=== PATIENT | female | born 1970 | race Caucasian/White ===

== ENCOUNTER 2016-04-10 13:42 | Inpatient (IN) | payer OTHER ==
--- NOTE | 2016-04-10 14:44 | ED ---
SOB HPI - General Chief Complaint: Shortness of Breath Stated Complaint: OLY sent by [facility] Time Seen by Provider: 04/10/16 14:14 Source: patient, RN notes reviewed Mode of arrival: ambulatory Limitations: no limitations - History of Present Illness Initial Comments: 45-year-old female presents emergency Department chief complaint shortness of breath. Patient states that she was just discharged less than 10 days ago for pneumonia, shortness breath, pulmonary edema. Patient states that she has been having visiting nurses come out to evaluate her vitals. They did state that she was not oxygenating as well today and sent to the emergency department. Patient did call her qa software tester Dr. connie franco and office to advise her also to the emergency room. Patient has chronic lung conditions in which she has been ventilated multiple times. Patient states she does feel tight in her chest. Patient denies any diaphoretic episodes, chills, nausea or vomiting. She states that she's been having a low-grade temp at home in which she's been taking acetaminophen for. Patient states she has taken her medications as prescribed including her diuretic. - Related Data Home Medications Medication Instructions Recorded Confirmed Cetirizine HCl [Zyrtec] 10 mg PO DAILY PRN 07/16/14 04/10/16 Ergocalciferol [Vitamin D2 50,000 units PO TH 07/16/14 04/10/16 (DRISDOL)] Omeprazole [PriLOSEC] 20 mg PO AC-BID 07/16/14 04/10/16 Budesonide-Formot 160-4.5 Mcg 2 puff INHALATION RT-BID 08/23/15 04/10/16 [Symbicort 160-4.5 Mcg Inhaler] Enoxaparin [Lovenox] 100 mg SQ DAILY 02/20/16 04/10/16 lamoTRIgine [LaMICtal] 200 mg PO DAILY 03/22/16 04/10/16 Furosemide [Lasix] 20 mg PO DAILY 03/30/16 04/10/16 Nystatin 100,000 Unit/ml Susp 400,000 units PO QID 04/10/16 04/10/16 [Mycostatin Oral Susp] Potassium Chloride [Klor-Con 20] 20 meq PO DAILY 04/10/16 04/10/16 Pregabalin [Lyrica] 150 mg PO TID 04/10/16 04/10/16 predniSONE See Taper PO DAILY 04/10/16 04/10/16 Previous Rx's Medication Instructions Recorded Albuterol Inhaler [Ventolin Hfa 2 puff INHALATION RT-Q6H PRN #1 08/20/15 Inhaler] puff FLUoxetine HCL [PROzac] 20 mg PO DAILY #30 capsule 08/20/15 Ipratropium-Albuterol Nebulize 3 ml INHALATION RT-Q4H PRN #180 neb 08/20/15 [Duoneb 0.5 mg-3 mg/3 ml Soln] Methocarbamol [Robaxin] 750 mg PO QID PRN #40 tab 08/20/15 Metoprolol Tartrate [Lopressor] 50 mg PO BID #60 tab 08/20/15 Mirtazapine [Remeron] 30 mg PO HS #30 tablet 08/20/15 Montelukast [Singulair] 10 mg PO HS #30 tab 08/20/15 Simvastatin [Zocor] 10 mg PO HS #30 tab 08/20/15 Warfarin [Coumadin] 2.5 mg PO DAILY@1800 #30 tab 08/20/15 Warfarin [Coumadin] 10 mg PO DAILY@1800 #30 tab 08/20/15 ALPRAZolam [Xanax] 0.5 mg PO QID PRN #10 tab 02/11/16 guaiFENesin/CODEINE PHOSPHATE 5 ml PO Q6HR PRN #80 ml 02/17/16 HYDROcodone/APAP 10-325MG [[place] 1 tab PO Q4HR PRN #30 tab 03/30/16 10-325] Allergies Allergy/AdvReac Type Severity Reaction Status Date / Time ketorolac tromethamine Allergy Severe Anaphylaxis Verified 04/10/16 13:47 [From Toradol] Opioids - Morphine Analogues Allergy Mild Itching Verified 04/10/16 13:47 rivaroxaban [From Xarelto] Allergy Rash/Hives Verified 04/10/16 13:47 sumatriptan [From Imitrex] Allergy Anaphylaxis Verified 04/10/16 13:47 sumatriptan succinate Allergy Anaphylaxis Verified 04/10/16 13:47 [From Imitrex] morphine AdvReac Severe Itching Verified 04/10/16 13:47 iodine AdvReac Intermediate Itching Verified 04/10/16 13:47 vancomycin AdvReac Itching Verified 04/10/16 13:47 Rich wipes AdvReac Severe Rash/Hives Uncoded 04/10/16 13:47 Review of Systems ROS Statement: Those systems with pertinent positive or pertinent negative responses have been documented in the HPI. ROS Other: All systems not noted in ROS Statement are negative. Past Medical History Past Medical History: Blood Disorder, Heart Failure, Deep Vein Thrombosis (DVT) , Hyperlipidemia, Hypertension, Myocardial Infarction ([place]), Musculoskeletal Disorder, Pulmonary Embolus (PE) Additional Past Medical History / Comment(s): Sarcoidosis diagnosed in 2015 following a bronchoscopy and lung biopsy done at [facility] and she was started on predniosone and she took the therapy for almost 1 year, polycythemia, overweight , bilateral PE (2011, 2015), bilateral DVTs, fibromyalgia, bipolar disorder, degenerative disk disorder, coronary artery disease along with previous history of a [place] and ventilator dependent respiratory failure with MRSA pneumonia for which the patient was hospitalized [facility] in 2012. Viral meningitis in October 2014. Last Myocardial Infarction Date:: February 15, 2013 History of Any Multi-Drug Resistant Organisms: MRSA Date of last positivie culture/infection: 2013 MDRO Source:: Lungs Past Surgical History: Section, Cholecystectomy, Heart Catheterization , Hernia Repair, Orthopedic Surgery Additional Past Surgical History / Comment(s): Lt ankle surgery Past Anesthesia/Blood Transfusion Reactions: No Reported Reaction Past Psychological History: Anxiety, Bipolar, Depression Additional Psychological History / Comment(s): pt. states she is on medication for depression Smoking Status: Current every day smoker Past Alcohol Use History: None Reported Additional Past Alcohol Use History / Comment(s): pt. states she smokes 1/2 a pack a day. Past Drug Use History: None Reported - Past Family History Father Family Medical History: Blood Disorder, Deep Vein Thrombosis (DVT) Additional Family Medical History / Comment(s): polycythemia Mother Family Medical History: Musculoskeletal Disorder Sister(s) Family Medical History: No Reported History Brother(s) Family Medical History: No Reported History Son(s) Family Medical History: No Reported History Daughter(s) Family Medical History: No Reported History General Exam Limitations: no limitations General appearance: alert, in no apparent distress Head exam: Present: atraumatic, normocephalic, normal inspection Eye exam: Present: normal appearance, PERRL, EOMI. Absent: scleral icterus, conjunctival injection, periorbital swelling Neck exam: Present: normal inspection. Absent: tenderness, meningismus, lymphadenopathy Respiratory exam: Present: wheezes (Mild). Absent: respiratory distress, rales , rhonchi, stridor Cardiovascular Exam: Present: normal rhythm, tachycardia, normal heart sounds. Absent: systolic murmur, diastolic murmur, rubs, gallop, clicks Skin exam: Present: warm, dry, intact, normal color. Absent: rash Course Vital Signs 04/10/16 04/10/16 13:44 16:37 Temperature 97.8 F Pulse Rate 108 H 108 H Respiratory 20 Rate Blood Pressure 123/87 Medical Decision Making - Medical Decision Making 45-year-old female presented for shortness breath. Patient has right lobe pneumonia. Patient was recently hospitalized. Patient recovered with multiple antibiotics this time. We did contact radiology for PICC line though they said they can be placed in the morning. - Lab Data Result diagrams: 04/10/16 16:02 04/10/16 03:34 Lab Results 04/10/16 04/10/16 04/10/16 Range/Units 03:34 16:02 16:02 WBC 15.2 H (3.8-10.6) k/uL RBC 5.21 (3.80-5.40) m/uL Hgb 15.8 (11.4-16.0) gm/dL Hct 48.3 H (34.0-46.0) % MCV 92.7 (80.0-100.0) fL MCH 30.3 (25.0-35.0) pg MCHC 32.6 (31.0-37.0) g/dL RDW 13.8 (11.5-15.5) % Plt Count 239 (150-450) k/uL Neutrophils % 84 % Lymphocytes % 10 % Monocytes % 5 % Eosinophils % 0 % Basophils % 0 % Neutrophils # 12.7 H (1.3-7.7) k/uL Lymphocytes # 1.5 (1.0-4.8) k/uL Monocytes # 0.7 (0-1.0) k/uL Eosinophils # 0.1 (0-0.7) k/uL Basophils # 0.1 (0-0.2) k/uL PT 11.5 (9.0-12.0) sec INR 1.2 (<1.1) APTT 24.2 (22.0-30.0) sec Sodium 143 (137-145) mmol/L Potassium 3.8 (3.5-5.1) mmol/L Chloride 108 H (98-107) mmol/L Carbon Dioxide 22 (22-30) mmol/L Anion Gap 13 mmol/L BUN 6 L (7-17) mg/dL Creatinine 0.58 (0.52-1.04) mg/dL Est GFR (MDRD) Af Amer >60 (>60 ml/min/1.73 sqM) Est GFR (MDRD) Non-Af >60 (>60 ml/min/1.73 sqM) Glucose 89 (74-99) mg/dL Calcium 8.8 (8.4-10.2) mg/dL Magnesium 1.7 (1.6-2.3) mg/dL Total Bilirubin 0.8 (0.2-1.3) mg/dL AST 33 (14-36) U/L ALT 49 (9-52) U/L Alkaline Phosphatase 82 (38-126) U/L Total Protein 7.3 (6.3-8.2) g/dL Albumin 4.1 (3.5-5.0) g/dL 04/10/16 16:47 EKG performed at 15:30 sinus tachycardia with a rate of 107 DE interval 134, QRS duration 58, QT/QTC 318/424 Disposition Clinical Impression: Sarcoidosis Disposition: ADMITTED IP TO THIS HOSP Condition: Stable
--- NOTE | 2016-04-10 15:20 | XR ---
EXAMINATION TYPE: XR chest 2V DATE OF EXAM: 04/10/2016 3:16 PM COMPARISON: 03/29/2016 HISTORY: difficulty breathing TECHNIQUE: Frontal and lateral views of the chest are obtained. FINDINGS: Patchy perihilar infiltrate right lower lobe. Correlate for pneumonia. Left lung is clear. IMPRESSION: Right lower lobe pneumonia. Follow-up until resolution recommended.
[2016-04-10] MEDS ORDERED: LEVOFLOXACIN 750MG-D5W PMX 750 MG in DEXTROSE/WATER 1 150ML.BAG IVPB STA (16:07)
[2016-04-10] MEDS ORDERED: PIPERACILLIN-TAZOBACTAM 3.375 GM in DEXTROSE/WATER 1 50ML.BAG IVPB STA (16:07)
[2016-04-10] MEDS ORDERED: LORazepam 1 MG TAB PO STA (16:23)
[2016-04-10] MEDS ORDERED: IPRATROPIUM-ALBUTEROL 3 ML NEB INHALATION STA (16:23)
[2016-04-10] MEDS ORDERED: HYDROcodone/APAP 5-325MG 1 EACH TAB PO STA (16:23)
[2016-04-10 16:28] LABS: Basophils # (A) 0.1 k/uL (0-0.2); Basophils % (A) 0 %; CH 31.5; CHCM 34.2; Eosinophils # (A) 0.1 k/uL (0-0.7); Eosinophils % (A) 0 %; HCT 48.3 % (34.0-46.0); HDW 2.93; HGB 15.8 gm/dL (11.4-16.0); Luc # (Auto) 0.15; Luc % (Auto) 1; Lymphocytes # (A) 1.5 k/uL (1.0-4.8); Lymphocytes % (A) 10 %; MCH 30.3 pg (25.0-35.0); MCHC 32.6 g/dL (31.0-37.0); MCV 92.7 fL (80.0-100.0); Mean Platelet Volume 8.1; Monocytes # (A) 0.7 k/uL (0-1.0); Monocytes % (A) 5 %; Neutrophils # (A) 12.7 k/uL (1.3-7.7); Neutrophils % (A) 84 %; RBC 5.21 m/uL (3.80-5.40); RDW 13.8 % (11.5-15.5); WBC 15.2 k/uL (3.8-10.6); WBC (Perox) 14.55
[2016-04-10 16:38] LABS: ALT 49 U/L (9-52); AST 33 U/L (14-36); Alkaline Phosphatase 82 U/L (38-126); Anion Gap 13 mmol/L; Blood Urea Nitrogen 6 mg/dL (7-17); Calcium 8.8 mg/dL (8.4-10.2); Carbon Dioxide 22 mmol/L (22-30); Chloride 108 mmol/L (98-107); Glucose 89 mg/dL (74-99); Magnesium 1.7 mg/dL (1.6-2.3); Non-African American GFR(MDRD) >60 (>60 ml/min/1.73 sqM); Potassium 3.8 mmol/L (3.5-5.1); Sodium 143 mmol/L (137-145); Total Bilirubin 0.8 mg/dL (0.2-1.3); Total Protein 7.3 g/dL (6.3-8.2)
[2016-04-10 16:39] LABS: Creatine Kinase 79 U/L (30-135)
[2016-04-10 16:41] LABS: INR 1.2 (<1.1); Partial Thromboplastin Time 24.2 sec (22.0-30.0); Prothrombin Time 11.5 sec (9.0-12.0)
[2016-04-10 16:49] LABS: Creatine Kinase MB 0.6 ng/mL (0.0-2.4)
[2016-04-10] MEDS ORDERED: NALOXONE 0.4 MG/ML 1 ML VIAL IV PRN (16:52)
[2016-04-10] MEDS ORDERED: ONDANSETRON 4 MG/2 ML VIAL IVP PRN (16:52)
[2016-04-10 17:16] LABS: Troponin I <0.012 ng/mL (0.000-0.034)
[2016-04-10] MEDS ORDERED: guaiFENesin SYRUP 100MG/5ML 200 MG/10 ML CUP PO STA (17:41)
[2016-04-10] MEDS: HYDROcodone/APAP 5-325MG 1 EACH TAB PO PRN (20:28)
[2016-04-10] MEDS ORDERED: LORATADINE 10 MG TAB PO PRN (21:03)
[2016-04-10] MEDS: ATORVASTATIN 10 MG TAB PO SCH (22:23)
[2016-04-10] MEDS: MONTELUKAST 10 MG TAB PO SCH (22:23)
[2016-04-10] MEDS: METOPROLOL TARTRATE 50 MG TAB PO SCH (22:23)
[2016-04-10] MEDS: MIRTAZAPINE 15 MG TAB PO SCH (22:23)
[2016-04-10] MEDS: METHOCARBAMOL 750 MG TAB PO PRN (22:24)
[2016-04-10] MEDS: PANTOPRAZOLE 40 MG TABLET PO SCH (22:24)
[2016-04-10] MEDS: PREGABALIN 75 MG CAP PO SCH (22:24)
[2016-04-10] MEDS: IPRATROPIUM-ALBUTEROL 3 ML NEB INHALATION PRN (23:13)
[2016-04-11] MEDS: PIPERACILLIN-TAZOBACTAM 3.375 GM in DEXTROSE/WATER 1 50ML.BAG IVPB SCH ×4 (00:27→23:34)
[2016-04-11] MEDS: ALPRAZolam 0.5 MG TAB PO PRN ×4 (02:35→21:11)
[2016-04-11] MEDS: HYDROcodone/APAP 5-325MG 1 EACH TAB PO PRN ×6 (02:35→23:33)
[2016-04-11] MEDS: guaiFENesin-Coden 100-10MG/5ML 10 ML CUP PO PRN ×3 (03:14→18:42)
[2016-04-11] MEDS: PANTOPRAZOLE 40 MG TABLET PO SCH ×2 (09:00→17:41)
[2016-04-11] MEDS: PREGABALIN 75 MG CAP PO SCH ×3 (09:00→21:10)
[2016-04-11] MEDS: FUROSEMIDE 20 MG TAB PO SCH (09:01)
[2016-04-11] MEDS: FLUoxetine HCL 20 MG CAP PO SCH (09:01)
[2016-04-11] MEDS: POTASSIUM CHLORIDE ER 20 MEQ TAB.ER PO SCH (09:01)
[2016-04-11] MEDS: METOPROLOL TARTRATE 50 MG TAB PO SCH ×2 (09:01→21:11)
[2016-04-11] MEDS: lamoTRIgine 100 MG TAB PO SCH (09:01)
[2016-04-11] MEDS: IPRATROPIUM-ALBUTEROL 3 ML NEB INHALATION PRN ×4 (09:21→20:09)
[2016-04-11] MEDS: SYMBICORT 160-4.5 MCG INHALER INHALATION SCH ×2 (09:21→20:09)
--- NOTE | 2016-04-11 10:35 | P.CNPUL ---
History of Present Illness Consult date: 04/11/16 Reason for consult: dyspnea History of present illness: 45-year-old female presents emergency Department chief complaint shortness of breath. Patient states that she was just discharged less than 10 days ago for pneumonia, shortness breath, diffuse bilateral pulmonary infiltrates, acute hypoxic respiratory failure for which the patient underwent a bronchoscopy and the bronchioloalveolar lavage and all of the cultures came back negative. Ultimately the patient was treated with a combination of bronchodilators steroids and antibiotics and she improved and she was discharged home. Patient states that she has been having visiting nurses come out to evaluate her vitals. They did state that she was not oxygenating as well today and sent to the emergency department. Patient has chronic lung conditions in which she has been ventilated multiple times. Patient states she does feel tight in her chest. Patient denies any diaphoretic episodes, chills, nausea or vomiting. She states that she's been having a low-grade temp at home in which she's been taking acetaminophen. This patient has a complicated history of recurrent episodes of acute hypoxic respiratory failure and development of diffuse breath and pulmonary infiltrates. Knowing that during an earlier hospitalization of 03/22/2016 the patient developed diffuse groundglass bilateral pulmonary infiltrates on the CAT scan and her chest x-ray was showing diffuse reticular nodular pulmonary infiltration that looked to be typical of an acute lung injury/ARDS pattern. During the course of her treatment the patient went into acute hypoxic respiratory failure and one point she went on 100% nonrebreather facemask and she was very close to being intubated. During the same hospitalization the patient had a bronchoscopy and all of the microbial cultures came back negative. This is not a single event and the patient has had similar events in the past and she has been intubated at least on 3 different occasions. The overall clinical history remains not clear to me. The patient has been to various hospitals including [facility]. At one point she was diagnosed having sarcoidosis and the diagnosis established at [facility] based on the bronchoscopy and transbronchial biopsy and the patient was treated with systemic steroids for almost a year. She subsequently quit taking the steroids as she gained significant amount of weight. At this point in time, she does not have any extra pulmonary manifestations of sarcoidosis. No liver function abnormalities. No hypercalcemia. No nephrolithiasis. No skin changes. In addition, the most recent CAT scan of the chest shows only small mediastinal lymphadenopathy. However, the patient has responded nicely to systemic steroids. In fact she responded to IV Solu- Medrol and she was discharged home on a prednisone burst taper and her symptoms recurred once the prednisone was tapered down to 20 mg by mouth daily. Her most recent chest x-ray shows infiltration of the lungs bilaterally right more than left and this is obviously new findings compared to the previous x-ray of the one done on 03/29/2016. She is smoking. No ongoing exposure to respiratory irritants or any other pneumo toxic agents. Her ANAs negative. Her rheumatoid factor is negative. Anti-CCP antibodies are negative. Serum immunoglobulin levels are within normal with some modest elevation of the baseline IgE level in the 270 range. Based on hypersensitivity panel was done and the patient was found to have some exposure to molds. This does not establish a true diagnosis of hypersensitivity pneumonia and these are nonspecific findings. Review of Systems Full review of system was done and the positive findings are almost above in history of present illness Past Medical History Past Medical History: Blood Disorder, Heart Failure, Deep Vein Thrombosis (DVT) , Hyperlipidemia, Hypertension, Myocardial Infarction ([place]), Musculoskeletal Disorder, Pulmonary Embolus ([place]) Additional Past Medical History / Comment(s): Sarcoidosis diagnosed in 2015 following a bronchoscopy and lung biopsy done at [facility] and she was started on predniosone and she took the therapy for almost 1 year, polycythemia, overweight , bilateral PE (2011, 2015), bilateral DVTs, fibromyalgia, bipolar disorder, degenerative disk disorder, coronary artery disease along with previous history of a [place] and ventilator dependent respiratory failure with MRSA pneumonia for which the patient was hospitalized [facility] in 2012. Viral meningitis in October 2014. Last Myocardial Infarction Date:: February 15, 2013 History of Any Multi-Drug Resistant Organisms: MRSA Date of last positivie culture/infection: 2013 MDRO Source:: Lungs Past Surgical History: Section, Cholecystectomy, Heart Catheterization , Hernia Repair, Orthopedic Surgery Additional Past Surgical History / Comment(s): Lt ankle surgery,BRONCH Past Anesthesia/Blood Transfusion Reactions: No Reported Reaction Past Psychological History: Anxiety, Bipolar, Depression Additional Psychological History / Comment(s): pt. states she is on medication for depression and feels well maintained. Smoking Status: Former smoker Past Alcohol Use History: None Reported Additional Past Alcohol Use History / Comment(s): pt states started smoking in 1988 and quit 04-02-16 had been smoking 1/2 ppd Past Drug Use History: None Reported - Past Family History Father Family Medical History: Blood Disorder, Deep Vein Thrombosis (DVT) Additional Family Medical History / Comment(s): polycythemia Mother Family Medical History: Musculoskeletal Disorder Sister(s) Family Medical History: No Reported History Brother(s) Family Medical History: No Reported History Son(s) Family Medical History: No Reported History Daughter(s) Family Medical History: No Reported History Medications and Allergies Home Medications Medication Instructions Recorded Confirmed Type Cetirizine HCl [Zyrtec] 10 mg PO DAILY PRN 07/16/14 04/10/16 History Ergocalciferol [Vitamin D2 50,000 units PO TH 07/16/14 04/10/16 History (DRISDOL)] Omeprazole [PriLOSEC] 20 mg PO AC-BID 07/16/14 04/10/16 History Budesonide-Formot 160-4.5 Mcg 2 puff INHALATION RT-BID 08/23/15 04/10/16 History [Symbicort 160-4.5 Mcg Inhaler] Enoxaparin [Lovenox] 100 mg SQ DAILY 02/20/16 04/10/16 History lamoTRIgine [LaMICtal] 200 mg PO DAILY 03/22/16 04/10/16 History Furosemide [Lasix] 20 mg PO DAILY 03/30/16 04/10/16 History Nystatin 100,000 Unit/ml Susp 400,000 units PO QID 04/10/16 04/10/16 History [Mycostatin Oral Susp] Potassium Chloride [Klor-Con 20] 20 meq PO DAILY 04/10/16 04/10/16 History Pregabalin [Lyrica] 150 mg PO TID 04/10/16 04/10/16 History predniSONE See Taper PO DAILY 04/10/16 04/10/16 History Allergies Allergy/AdvReac Type Severity Reaction Status Date / Time ketorolac tromethamine Allergy Severe Anaphylaxis Verified 04/10/16 13:47 [From Toradol] Opioids - Morphine Analogues Allergy Mild Itching Verified 04/10/16 13:47 rivaroxaban [From Xarelto] Allergy Rash/Hives Verified 04/10/16 13:47 sumatriptan [From Imitrex] Allergy Anaphylaxis Verified 04/10/16 13:47 sumatriptan succinate Allergy Anaphylaxis Verified 04/10/16 13:47 [From Imitrex] morphine AdvReac Severe Itching Verified 04/10/16 13:47 iodine AdvReac Intermediate Itching Verified 04/10/16 13:47 vancomycin AdvReac Itching Verified 04/10/16 13:47 Rich wipes AdvReac Severe Rash/Hives Uncoded 04/10/16 13:47 Physical Exam Vitals: Vital Signs Temp Pulse Pulse Resp BP BP Pulse Ox 04/11/16 09:38 100 04/11/16 09:22 96 04/11/16 08:00 20 04/11/16 07:00 97.4 F L 87 20 112/68 94 L 04/10/16 23:20 84 04/10/16 23:15 84 04/10/16 23:00 98.3 F 96 18 126/85 95 04/10/16 19:39 99.2 F 108 H 20 106/68 93 L 04/10/16 19:06 98 F 99 20 112/71 93 L Intake and Output 04/10/16 04/11/16 04/11/16 22:59 06:59 14:59 Intake Total 500 750 Balance 500 750 Intake: Oral 500 750 Other: # Voids 1 1 Weight 90.5 kg 90.5 kg Head exam was generally normal. There was no scleral icterus or corneal arcus. Mucous membranes were moist.Neck was supple and without jugular venous distension, thyromegaly, or carotid bruits. Carotids were easily palpable bilaterally. There was no adenopathy. Lung sounds are diminished bilaterally along with some scattered rhonchi and scattered expiratory wheezes.Cardiac exam revealed the PMI to be normally situated and sized. The rhythm was regular and no extrasystoles were noted during several minutes of auscultation. The first and second heart sounds were normal and physiologic splitting of the second heart sound was noted. There were no murmurs, rubs, clicks, or gallops.Abdominal exam revealed normal bowel sounds. The abdomen was soft, non- tender, and without masses, organomegaly, or appreciable enlargement of the abdominal aorta.Examination of the extremities revealed easily palpable radial, femoral and pedal pulses. There was no cyanosis, clubbing or edema. Results - Laboratory Findings CBC and BMP: 04/10/16 16:02 04/10/16 03:34 PT/INR, D-dimer PT 11.5 sec (9.0-12.0) 04/10/16 16:02 INR 1.2 (<1.1) 04/10/16 16:02 - Diagnostic Findings Chest x-ray: image reviewed Assessment and Plan Plan: Assessment 1 acute hypoxic respiratory failure with recurrent pulmonary infiltrate pulmonary infiltration, right more than left. The exact nature of this recurrent pulmonary infiltration is not clear to me. The patient during an earlier hospitalization had a bronchoscopy and the bronchioloalveolar lavage and essentially the microbial analysis was negative for any bacterial, viral, mycobacterial or parasitic infection. As such, I suspect her disease is recurrent and inflammatory in nature and the possibilities would include recurrent acute lung injury/ARDS-type of picture, sarcoidosis, the desquamous interstitial pneumonia secondary to smoking, hypersensitivity pneumonia. 2 previous history of DVT and pulmonary embolism 3 obesity 4 smoking 5 secondary polycythemia 6 history of viral meningitis from October 2014 7 bipolar disorder 8 degenerative disc disease 9 coronary artery disease with previous myocardial infarction \ 10 multiple bouts of acute hypoxic history failure with ventilator dependence 11 previous history of MRSA pneumonia Plan We'll subject this patient again to IV Solu-Medrol. I am inclined to give this patient an open lung biopsy to establish the final diagnosis. I'm going to discuss it with the thoracic surgeon and she'll be considered for a video- assisted thoracoscopic wedge biopsy of the lung to establish a final diagnosis regarding this recurrent bouts of respiratory failure. I think she is agreeable. We'll proceed accordingly. As mentioned earlier, all of the microbial cultures of been negative from previous bronchoscopy. This is not an infectious event. Rule out other inflammatory lung diseases as mentioned above. Mean While, repeat robert level, sed rate, obtain baseline P and C ANCA levels.
[2016-04-11 10:48] VITALS: BMI 32.2
[2016-04-11] MEDS: HEPARIN SODIUM,PORCINE 5,000 UNIT/ML 1 ML VIAL SQ SCH ×3 (10:59→23:34)
--- NOTE | 2016-04-11 12:32 | HP ---
DATE OF ADMISSION: CHIEF COMPLAINT: Cough, fever, congestion, shortness of breath. HISTORY OF PRESENT ILLNESS: This is another many admissions for this 45-year-old white female. She is not a regular patient of mine. She was just in the hospital recently for pneumonia. She doctors with a physician elsewhere. She depends highly on large quantities of analgesics. She came in again because of "shortness of breath, cough, and fever" REVIEW OF SYSTEMS: She denies any neurologic problems, change in vision or hearing, hemoptysis, heart disease, orthopnea, PND, abdominal pain, hematemesis, melena, hematochezia, jaundice, hematuria, frequency, urgency, diabetes, etc. Past medical history, family history and personal and social histories are all unchanged. I have not seen her since December of 2014. She is uncooperative and does not readily give any further historical details and is requesting a different physician. PHYSICAL EXAM: Blood pressure is 116/80 with a pulse of 86, respirations of 38 and she is afebrile. GENERAL: She appeared to be in no acute distress. Skin color is normal. Skin is warm, dry. Lymph nodes are not enlarged. Head, ears, eyes, nose, mouth, and throat were normal. Neck veins are not distended. Thyroid was not enlarged. Chest demonstrates decreased breath sounds throughout with occasional rales and rhonchi. Cardiac exam is normal. ABDOMEN: Soft, nontender. EXTREMITIES: Normal. IMPRESSION: 1. Bronchopneumonia. 2. History of sarcoidosis. PLAN: 1. Bed rest. 2. IV fluids. 3. Updrafts. 4. Pulmonology consult.
--- NOTE | 2016-04-11 12:34 | PN ---
CHIEF COMPLAINT: Pneumonitis. HISTORY OF PRESENT ILLNESS: This lady is doing a little bit better and feels better and is less short of breath. She has had no fever. PHYSICAL EXAM: Breath sounds are fairly good on both side. There are occasional rales at the right base. Cardiac exam is normal. ABDOMEN: Soft, nontender. IMPRESSION: 1. Pneumonitis. 2. Chronic obstructive pulmonary disease. 3. 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 PLAN: 1. Await recommendations from Pulmonology. 2. She wants to change to a different physician.
[2016-04-11] MEDS: METHOCARBAMOL 750 MG TAB PO PRN (20:03)
[2016-04-11] MEDS: MONTELUKAST 10 MG TAB PO SCH (21:10)
[2016-04-11] MEDS: ATORVASTATIN 10 MG TAB PO SCH (21:10)
[2016-04-11] MEDS: MIRTAZAPINE 15 MG TAB PO SCH (21:11)
[2016-04-12] MEDS: HYDROcodone/APAP 5-325MG 1 EACH TAB PO PRN ×5 (03:25→20:05)
[2016-04-12] MEDS: ALPRAZolam 0.5 MG TAB PO PRN ×3 (08:07→20:05)
[2016-04-12] MEDS: guaiFENesin-Coden 100-10MG/5ML 10 ML CUP PO PRN ×3 (08:07→20:04)
[2016-04-12] MEDS: PIPERACILLIN-TAZOBACTAM 3.375 GM in DEXTROSE/WATER 1 50ML.BAG IVPB SCH ×3 (08:08→23:48)
[2016-04-12] MEDS: PREGABALIN 75 MG CAP PO SCH ×3 (08:08→22:15)
[2016-04-12] MEDS: FUROSEMIDE 20 MG TAB PO SCH (08:09)
[2016-04-12] MEDS: lamoTRIgine 100 MG TAB PO SCH (08:09)
[2016-04-12] MEDS: PANTOPRAZOLE 40 MG TABLET PO SCH ×2 (08:09→16:23)
[2016-04-12] MEDS: HEPARIN SODIUM,PORCINE 5,000 UNIT/ML 1 ML VIAL SQ SCH ×3 (08:09→23:48)
[2016-04-12 08:10] LABS: Partial Thromboplastin Time 24.4 sec (22.0-30.0); Prothrombin Time 10.1 sec (9.0-12.0)
[2016-04-12] MEDS: METOPROLOL TARTRATE 50 MG TAB PO SCH ×2 (08:10→20:09)
[2016-04-12] MEDS: FLUoxetine HCL 20 MG CAP PO SCH (08:10)
[2016-04-12] MEDS: POTASSIUM CHLORIDE ER 20 MEQ TAB.ER PO SCH (08:10)
[2016-04-12] MEDS: SYMBICORT 160-4.5 MCG INHALER INHALATION SCH ×2 (09:04→20:13)
[2016-04-12] MEDS: IPRATROPIUM-ALBUTEROL 3 ML NEB INHALATION PRN ×4 (09:04→20:13)
[2016-04-12] MEDS: METHOCARBAMOL 750 MG TAB PO PRN ×2 (12:34→22:15)
[2016-04-12] MEDS ORDERED: MORPHINE SULFATE 4 MG/ML SYRINGE IVP PRN (13:37)
[2016-04-12] MEDS ORDERED: predniSONE 20 MG TAB PO SCH (13:45)
[2016-04-12 14:09] LABS: C-ANCA <1:20 Titer (<1:20); P-ANCA <1:20 Titer (<1:20)
[2016-04-12] MEDS: HYDROmorphone 1 MG/ML 1 ML SYRINGE IVP PRN ×4 (14:14→23:48)
--- NOTE | 2016-04-12 15:41 | P.PN ---
Subjective 45-year-old female presents emergency Department chief complaint shortness of breath. Patient states that she was just discharged less than 10 days ago for pneumonia, shortness breath, diffuse bilateral pulmonary infiltrates, acute hypoxic respiratory failure for which the patient underwent a bronchoscopy and the bronchioloalveolar lavage and all of the cultures came back negative. Ultimately the patient was treated with a combination of bronchodilators steroids and antibiotics and she improved and she was discharged home. Patient states that she has been having visiting nurses come out to evaluate her vitals. They did state that she was not oxygenating as well today and sent to the emergency department. Patient has chronic lung conditions in which she has been ventilated multiple times. Patient states she does feel tight in her chest. Patient denies any diaphoretic episodes, chills, nausea or vomiting. She states that she's been having a low-grade temp at home in which she's been taking acetaminophen. This patient has a complicated history of recurrent episodes of acute hypoxic respiratory failure and development of diffuse breath and pulmonary infiltrates. Knowing that during an earlier hospitalization of 03/22/2016 the patient developed diffuse groundglass bilateral pulmonary infiltrates on the CAT scan and her chest x-ray was showing diffuse reticular nodular pulmonary infiltration that looked to be typical of an acute lung injury/ARDS pattern. During the course of her treatment the patient went into acute hypoxic respiratory failure and one point she went on 100% nonrebreather facemask and she was very close to being intubated. During the same hospitalization the patient had a bronchoscopy and all of the microbial cultures came back negative. This is not a single event and the patient has had similar events in the past and she has been intubated at least on 3 different occasions. The overall clinical history remains not clear to me. The patient has been to various hospitals including [facility]. At one point she was diagnosed having sarcoidosis and the diagnosis established at [facility] based on the bronchoscopy and transbronchial biopsy and the patient was treated with systemic steroids for almost a year. She subsequently quit taking the steroids as she gained significant amount of weight. At this point in time, she does not have any extra pulmonary manifestations of sarcoidosis. No liver function abnormalities. No hypercalcemia. No nephrolithiasis. No skin changes. In addition, the most recent CAT scan of the chest shows only small mediastinal lymphadenopathy. However, the patient has responded nicely to systemic steroids. In fact she responded to IV Solu- Medrol and she was discharged home on a prednisone burst taper and her symptoms recurred once the prednisone was tapered down to 20 mg by mouth daily. Her most recent chest x-ray shows infiltration of the lungs bilaterally right more than left and this is obviously new findings compared to the previous x-ray of the one done on 03/29/2016. She is smoking. No ongoing exposure to respiratory irritants or any other pneumo toxic agents. Her ANAs negative. Her rheumatoid factor is negative. Anti-CCP antibodies are negative. Serum immunoglobulin levels are within normal with some modest elevation of the baseline IgE level in the 270 range. Based on hypersensitivity panel was done and the patient was found to have some exposure to molds. This does not establish a true diagnosis of hypersensitivity pneumonia and these are nonspecific findings. On 04/12/2016 the patient is being seen in follow-up. She is slightly improved compared to yesterday. We had difficulty in establishing an IV line. Ultimately a peripheral line was established and the right upper extremity. She is still on IV Solu-Medrol. I was able to decrease own information from [facility] and based on my review there is no objective evidence the patient was diagnosed with sarcoidosis back then. I was unable to obtain any information about lung biopsies or histologic diagnosis of sarcoidosis. I also discussed this case with the thoracic surgeon and based on discussion he that the patient to be optimized medically and he was hesitant to consider this patient for a thoracoscopic wedge biopsy. As such, I intend to perform a bronchoscopy and performed test bronchial biopsies and attempt to establish a tissue diagnosis regarding this recurrent episodes of hypoxic respiratory failure and recurrent pulmonary infiltrates that the patient is having. Objective - Vital Signs Vital signs: Vital Signs Temp 96.9 F L 04/12/16 15:00 Pulse 86 04/12/16 15:00 Resp 20 04/12/16 15:00 BP 89/63 04/12/16 15:00 Pulse Ox 96 04/12/16 15:00 Intake & Output 04/11/16 04/12/16 04/12/16 18:59 06:59 18:59 Intake Total 720 Balance 720 Weight 90.5 kg 100 kg Intake: Oral 720 Other: # Voids 3 2 2 # Bowel Movements 1 - Exam Head exam was generally normal. There was no scleral icterus or corneal arcus. Mucous membranes were moist.Neck was supple and without jugular venous distension, thyromegaly, or carotid bruits. Carotids were easily palpable bilaterally. There was no adenopathy. Lung sounds are diminished bilaterally along with some scattered rhonchi and scattered expiratory wheezes.Cardiac exam revealed the PMI to be normally situated and sized. The rhythm was regular and no extrasystoles were noted during several minutes of auscultation. The first and second heart sounds were normal and physiologic splitting of the second heart sound was noted. There were no murmurs, rubs, clicks, or gallops.Abdominal exam revealed normal bowel sounds. The abdomen was soft, non- tender, and without masses, organomegaly, or appreciable enlargement of the abdominal aorta.Examination of the extremities revealed easily palpable radial, femoral and pedal pulses. There was no cyanosis, clubbing or edema. - Labs CBC & Chem 7: 04/10/16 16:02 04/10/16 03:34 Assessment and Plan Plan: Assessment 1 acute hypoxic respiratory failure with recurrent pulmonary infiltrate pulmonary infiltration, right more than left. The exact nature of this recurrent pulmonary infiltration is not clear to me. The patient during an earlier hospitalization had a bronchoscopy and the bronchioloalveolar lavage and essentially the microbial analysis was negative for any bacterial, viral, mycobacterial or parasitic infection. As such, I suspect her disease is recurrent and inflammatory in nature and the possibilities would include recurrent acute lung injury/ARDS-type of picture, sarcoidosis, the desquamous interstitial pneumonia secondary to smoking, hypersensitivity pneumonia. On 04/12/2016 the patient is being seen in follow-up. She is still under treatment with a combination of bronchodilators steroids and antibiotics. My plan is to consider bronchoscopy and transbronchial biopsies in a.m. The robert level came back within normal limits. 2 previous history of DVT and pulmonary embolism 3 obesity 4 smoking 5 secondary polycythemia 6 history of viral meningitis from October 2014 7 bipolar disorder 8 degenerative disc disease 9 coronary artery disease with previous myocardial infarction \ 10 multiple bouts of acute hypoxic history failure with ventilator dependence 11 previous history of MRSA pneumonia Plan We'll subject this patient again to IV Solu-Medrol. We'll keep the patient nothing by mouth after midnight. We'll consider bronchoscopy and transbronchial biopsies in a.m. Rule out underlying sarcoidosis. Rule out underlying interstitial lung disease which could be smoking related. Rule out recurrent. P chest x-ray also in a.m.
[2016-04-12] MEDS: methylPREDNISolone SOD SUCCI 125 MG/2 ML VIAL IV SCH ×2 (17:40→23:48)
--- NOTE | 2016-04-12 18:41 | PN ---
Patient is a 45-year-old who came in with complaints of shortness of breath. Patient was discharged about 10 days ago. At that time patient underwent bronchoalveolar lavage, with significant improvement. All the cultures at that time were negative. Patient's picture at that time was typical for ARDS. Patient was on non-rebreather at one point of time, was in ICU. At that time she was not intubated. Patient also had multiple intubations in the past at [facility]. Etiology of her pulmonary infiltrate is still not clear. Patient was told she has sarcoidosis, although that history is unclear as well. All ( ) negative except for Ig level ( ). Patient comes in here with similar symptoms as last time. Patient's lung diana sound okay. Patient may need bronchoscopy. Chest x-ray shows a similar picture to the previous hospitalization. REVIEW OF SYSTEMS: CARDIOVASCULAR: No chest pain, no orthopnea, no PND, no palpitations. PULMONARY: No significant improvement in shortness of breath. Patient is on oxygen, not doing clinically well. GASTROINTESTINAL: No diarrhea, nausea or vomiting. No abdominal pain. Normoactive bowel sounds. NEUROLOGIC: No headaches, no weakness, no numbness. Medications were reviewed. PHYSICAL EXAMINATION: VITAL SIGNS: Temperature 97.4, pulse of 96, respiratory rate of 20. Blood pressure is 112/68. Saturating at 94% on 4 L of oxygen. GENERAL: Patient appears to have some respiratory discomfort and some respiratory distress beyond that. HEENT: Pupils are round and equally reacting to light. EOMI. No scleral icterus. No conjunctival pallor. Normocephalic, atraumatic. No pharyngeal erythema. No thyromegaly. CARDIOVASCULAR: S1 and S2 present. No murmurs, rubs, or gallops. PULMONARY: Patient's lungs sound clear. No wheezing. No crackles were appreciated. ABDOMEN: Soft, nontender, nondistended, normoactive bowel sounds. No palpable organomegaly. MUSCULOSKELETAL: No joint swelling or deformity. EXTREMITIES: No cyanosis, clubbing, or pedal edema. NEUROLOGICAL: Gross neurological examination did not reveal any focal deficits. SKIN: No rashes. LABORATORY DATA: CBC, CMP were reviewed. ASSESSMENT AND PLAN: 1. Acute hypoxic respiratory failure. 2. Recurrent pulmonary infiltrate, most probably not infections, but patient is on broad-spectrum antibiotics and patient ( ) line, because of which patient will need a central line which we are trying to find out if Pulmonary will place a central line, as Interventional Radiology is unable to do a PICC line today. Patient had an ARDS picture now again. Patient is on systemic steroids and inhalational treatments. 3. Previous history of deep venous thrombosis and pulmonary embolism. 4. Morbid obesity. 5. Polycythemia. 6. Bipolar disorder. 7. Coronary artery disease with previous myocardial infarction. 8. Multiple bouts of hypoxic respiratory failure. Clear-cut etiology is not known. So far all the workup today is negative. Patient ( ) treated for infectious etiologies, but all the ( ) that was ever done for her infections are all negative.
[2016-04-12] MEDS: MONTELUKAST 10 MG TAB PO SCH (20:05)
[2016-04-12] MEDS: MIRTAZAPINE 15 MG TAB PO SCH (20:05)
[2016-04-12] MEDS: ATORVASTATIN 10 MG TAB PO SCH (20:09)
[2016-04-12 21:30] LABS: Glucose,Whole Blood 219 mg/dL (75-99)
[2016-04-12 21:33] LABS: Hemoglobin A1C 5.1 % (4.2-6.1)
[2016-04-12] MEDS: INSULIN LISPRO (humaLOG) 300 UNIT/3 ML VIAL SQ SCH (22:14)
[2016-04-13] MEDS: HYDROmorphone 1 MG/ML 1 ML SYRINGE IVP PRN ×6 (02:57→21:16)
[2016-04-13] MEDS: IPRATROPIUM-ALBUTEROL 3 ML NEB INHALATION PRN ×3 (03:26→19:07)
[2016-04-13] MEDS: guaiFENesin-Coden 100-10MG/5ML 10 ML CUP PO PRN ×3 (03:26→19:27)
[2016-04-13] MEDS: ALPRAZolam 0.5 MG TAB PO PRN ×4 (03:27→22:59)
[2016-04-13] MEDS: methylPREDNISolone SOD SUCCI 125 MG/2 ML VIAL IV SCH ×4 (05:28→23:30)
--- NOTE | 2016-04-13 07:17 | XR ---
EXAMINATION TYPE: XR chest 2V DATE OF EXAM: 04/13/2016 6:38 AM COMPARISON: 04/10/2016 HISTORY: 45-year-old female pneumonia, history of sarcoid and pulmonary fibrosis. TECHNIQUE: Frontal and lateral views FINDINGS: Heart remains upper limits of normal in size. Aorta within normal limits. Previously seen more focal right midlung opacity has now become less confluent but there is now diffuse interstitial densities, greater on the right. No pleural effusion. IMPRESSION: Shifting opacities now with more diffuse interstitial densities. Correlate for possible etiologies in cluding atypical pneumonias, interstitial pulmonary edema, and interstitial pneumonitis. If the patie nt has an established diagnosis of IPF, an acute exacerbation is also possible.
[2016-04-13] MEDS: SYMBICORT 160-4.5 MCG INHALER INHALATION SCH ×2 (07:22→19:07)
[2016-04-13 07:45] LABS: Glucose,Whole Blood 207 mg/dL (75-99)
[2016-04-13] MEDS: PANTOPRAZOLE 40 MG TABLET PO SCH ×2 (08:32→17:06)
[2016-04-13] MEDS: PREGABALIN 75 MG CAP PO SCH ×3 (08:32→21:16)
[2016-04-13] MEDS: POTASSIUM CHLORIDE ER 20 MEQ TAB.ER PO SCH (08:32)
[2016-04-13] MEDS: FUROSEMIDE 20 MG TAB PO SCH (08:32)
[2016-04-13] MEDS: METOPROLOL TARTRATE 50 MG TAB PO SCH ×2 (08:33→20:25)
[2016-04-13] MEDS: PIPERACILLIN-TAZOBACTAM 3.375 GM in DEXTROSE/WATER 1 50ML.BAG IVPB SCH ×3 (08:33→23:30)
[2016-04-13] MEDS: FLUoxetine HCL 20 MG CAP PO SCH (08:33)
[2016-04-13] MEDS: lamoTRIgine 100 MG TAB PO SCH (08:33)
[2016-04-13] MEDS: INSULIN LISPRO (humaLOG) 300 UNIT/3 ML VIAL SQ SCH ×4 (08:34→21:16)
[2016-04-13] MEDS: HYDROcodone/APAP 5-325MG 1 EACH TAB PO PRN ×3 (08:35→22:59)
[2016-04-13] MEDS: HEPARIN SODIUM,PORCINE 5,000 UNIT/ML 1 ML VIAL SQ SCH ×3 (08:35→23:30)
[2016-04-13] MEDS ORDERED: LIDOCAINE 2% INJ 20 MG/ML (20 ML MDV) ONE (10:55)
[2016-04-13] MEDS ORDERED: LIDOCAINE 2% INJ 20 MG/ML SQ ONE (11:18)
[2016-04-13 11:48] LABS: Glucose,Whole Blood 102 mg/dL (75-99)
--- NOTE | 2016-04-13 11:50 | IR ---
EXAMINATION TYPE: IR cvc insert >=5 years DATE OF EXAM: 04/13/2016 11:30 AM COMPARISON: NONE CLINICAL HISTORY: Pneumonia Needs long-term intravenous access for antibiotics. PROCEDURE: After informed consent, the skin overlying the right basilic vein was localized with ultrasound and n oted to be compressible and patent. An ultrasound image was obtained and submitted on the patient's chart. The overlying skin was prepped and draped and Lidocaine was used for local anesthesia. A ski n laureano was made with a scalpel. Access was gained to the vein under ultrasound guidance with a 21 ga uge needle and a 0.018 inch wire was advanced. Access site was dilated with Peel-Away sheath and cat heter tailored to the appropriate length and advanced such that the distal tip is at the cavoatrial j unction. Spot image was obtained verifying placement. Catheter was fixed to the skin with suture an d a sterile dressing was placed following hemostasis. Catheter was aspirated and flushed with saline . Patient was discharged in stable condition without complication. Maximal barrier technique is util ized. Ultrasound image is documented on the chart. Ultrasound used with sterile technique. Fluoro time and fluoroscopic image submitted to document procedure: 0.3 minutes fluoroscopy time IMPRESSION: STATUS POST ULTRASOUND AND FLUOROSCOPIC GUIDED PICC LINE PLACEMENT, READY FOR USE. THIS PROCEDURE WAS PERFORMED BY THE UNDERSIGNED.
[2016-04-13] MEDS ORDERED: ERGOCALCIFEROL 50,000 UNIT CAP PO SCH (12:00)
[2016-04-13] MEDS ORDERED: LIDOCAINE 1% INJ 10MG/ML (20 ML MDV) ONE (13:09)
[2016-04-13] MEDS ORDERED: PROPOFOL 10 MG/ML 20 ML VIAL IV ONE (13:09)
[2016-04-13] MEDS ORDERED: GLYCOPYRROLATE 0.2 MG/ML 2 ML VIAL ONE (13:09)
[2016-04-13] MEDS ORDERED: MIDAZOLAM 2 MG/2 ML VIAL ONE (13:09)
[2016-04-13] MEDS ORDERED: fentaNYL (PF) 50 MCG/ML 2 ML AMP ONE (13:09)
[2016-04-13] MEDS ORDERED: KETAMINE 10 MG/ML 20 ML VIAL ONE (13:09)
[2016-04-13] MEDS ORDERED: IV FLUID CONTINUATION 350 ML IV ONE (13:12)
[2016-04-13] MEDS ORDERED: IV FLUID CONTINUATION 1,000 ML IV ONE (14:21)
[2016-04-13] MEDS ORDERED: MIDAZOLAM 2 MG/2 ML VIAL IVP ONE (14:49)
[2016-04-13 17:14] LABS: Glucose,Whole Blood 132 mg/dL (75-99)
--- NOTE | 2016-04-13 18:24 | P.PN ---
Subjective This is a very pleasant 45-year-old female patient who presented here in 2016 with complaints of increasing shortness of breath cough congestion chills or night sweats. She was found to have recurrent pneumonias. She's had multiple admissions for the same. She's been ventilatory dependent in the past. She's also been at the [facility] and [facility]. Her chest x-ray continues to show diffuse pulmonary infiltrates bilaterally more so on the left. She has been slow to progress. She has no conclusive diagnosis. Dr. Hicks and suspected possible recurrent acute lung injury/Rtype of picture, sarcoidosis, discriminative interstitial pneumonia secondary to smoking or possibly hypersensitivity pneumonia. He had performed bronchoscopy with BAL today. Unfortunately the patient desaturated quite quickly and no biopsies were able to be taken. Postprocedure she was seen again in follow-up on the regular medical floor. She is awake and alert in no acute distress. She continues with a loose nonproductive cough. Objective - Vital Signs Vital signs: Vital Signs Temp 97.3 F L 04/13/16 15:32 Pulse 86 04/13/16 15:32 Resp 22 04/13/16 15:32 BP 98/68 04/13/16 15:32 Pulse Ox 94 L 04/13/16 15:32 Intake & Output 04/12/16 04/13/16 04/13/16 18:59 06:59 18:59 Intake Total 534 862 3251 Output Total 1 Balance 724 743 9707 Weight 100 kg Intake: IV 270 800 0.9 NS @ 20 ml/hr 220 Piperacillin-Tazobactam 3 50 .375 gm In Dextrose/Water 1 50ml.bag @ 12.5 mls/hr IVPB Q8HR [facility] Rx#: [id number] Oral 720 240 480 Output: Urine 1 Other: Voiding Method Toilet Toilet Toilet # Voids 2 3 - Exam GENERAL EXAM: Obese. Alert, comfortable in no apparent distress. HEAD: Normocephalic. EYES: Normal reaction of pupils, equal size. NOSE: Clear with pink turbinates. THROAT: Crowding the posterior pharynx. No erythema or exudates. NECK: Short. No masses, no JVD. CHEST: No chest wall deformity. LUNGS: Equal air entry with bilateral wheezing, scattered rhonchi, diminished. CVS: S1 and S2 normal with no audible murmurs, regular rhythm. ABDOMEN: No hepatosplenomegaly, normal bowel sounds, no guarding or rigidity. SPINE: No scoliosis or deformity SKIN: No rashes CENTRAL NERVOUS SYSTEM: No focal deficits, tone is normal in all 4 extremities. Extremities: There is trace peripheral edema. No clubbing, no cyanosis. Peripheral pulses are intact. - Labs CBC & Chem 7: 04/10/16 16:02 04/10/16 03:34 Labs: Abnormal Lab Results - Last 24 Hours (Table) 04/12/16 04/13/16 04/13/16 Range/Units 21:27 07:41 11:44 POC Glucose (mg/dL) 219 H 207 H 102 H (75-99) mg/dL 04/13/16 Range/Units 17:13 POC Glucose (mg/dL) 132 H (75-99) mg/dL Assessment and Plan Plan: Impression: #1 Acute hypoxic respiratory failure with recurrent pulmonary infiltrate, right more than left. The exact nature of this recurrent pulmonary infiltration is not clear. Previous bronchoscopies in alveolar lavages revealed no evidence of bacterial, viral, mycobacterial parasitic infections. She possibly has recurrent and inflammatory infection secondary to acute lung injury/ARDStype picture, sarcoidosis, that the squamous interstitial pneumonia secondary to smoking, hypersensitivity pneumonia. She had undergone repeat bronchoscopy with BAL today. Unfortunately, biopsies were not able to be obtained secondary to desaturations and brief episodes of apnea. #2 previous history of DVT/PE. #3 Morbid obesity. #4 Chronic and ongoing nicotine addiction. #5 Secondary polycythemia. #6 History of viral meningitis in October 2014. #7 Bipolar disorder. #8 Degenerative disc disease. #9 Coronary artery disease with previous myocardial infarction. #10 Multiple bouts of acute hypoxic respiratory failure with ventilator dependence #11 Previous history of MRSA pneumonias. Plan: The patient was seen and evaluated by Dr. Hicks. He performed bronchoscopy with BAL today. Samples of the wash were sent to the lab for evaluation. In the interim, we'll continue with her current medications including bronchodilators, IV Solu-Medrol, and Zosyn. She remains on heparin for DVT prophylaxis. We'll increase her activity as tolerated. We'll continue to follow make further recommendations based on her clinical status.
[2016-04-13] MEDS: ATORVASTATIN 10 MG TAB PO SCH (20:25)
[2016-04-13] MEDS: MONTELUKAST 10 MG TAB PO SCH (20:25)
[2016-04-13] MEDS: MIRTAZAPINE 15 MG TAB PO SCH (20:25)
[2016-04-13 21:03] LABS: Glucose,Whole Blood 215 mg/dL (75-99)
[2016-04-14] MEDS: HYDROmorphone 1 MG/ML 1 ML SYRINGE IVP PRN ×7 (01:59→20:51)
[2016-04-14] MEDS: HYDROcodone/APAP 5-325MG 1 EACH TAB PO PRN ×5 (03:08→22:10)
[2016-04-14 05:33] LABS: Basophils % (A) 0 %; CH 30.8; CHCM 33.2; Eosinophils # (A) 0.1 k/uL (0-0.7); Eosinophils % (A) 1 %; HCT 39.2 % (34.0-46.0); HDW 3.11; Luc # (Auto) 0.14; Luc % (Auto) 2; Lymphocytes # (A) 1.2 k/uL (1.0-4.8); Lymphocytes % (A) 13 %; MCH 30.3 pg (25.0-35.0); MCHC 32.6 g/dL (31.0-37.0); MCV 93.2 fL (80.0-100.0); Mean Platelet Volume 7.1; Monocytes # (A) 0.4 k/uL (0-1.0); Monocytes % (A) 4 %; Neutrophils # (A) 7.8 k/uL (1.3-7.7); Neutrophils % (A) 81 %; RDW 13.5 % (11.5-15.5); WBC 9.6 k/uL (3.8-10.6); WBC (Perox) 9.89
[2016-04-14 05:45] LABS: Anion Gap 7 mmol/L; Blood Urea Nitrogen 14 mg/dL (7-17); Calcium 8.9 mg/dL (8.4-10.2); Carbon Dioxide 27 mmol/L (22-30); Chloride 107 mmol/L (98-107); Glucose 173 mg/dL (74-99); Non-African American GFR(MDRD) >60 (>60 ml/min/1.73 sqM); Potassium 4.6 mmol/L (3.5-5.1); Sodium 141 mmol/L (137-145)
[2016-04-14] MEDS: methylPREDNISolone SOD SUCCI 125 MG/2 ML VIAL IV SCH ×3 (06:21→17:09)
[2016-04-14 06:31] LABS: HGB 12.8 gm/dL (11.4-16.0)
[2016-04-14 07:21] LABS: Glucose,Whole Blood 202 mg/dL (75-99)
[2016-04-14] MEDS: PIPERACILLIN-TAZOBACTAM 3.375 GM in DEXTROSE/WATER 1 50ML.BAG IVPB SCH ×2 (08:05→16:14)
[2016-04-14] MEDS: lamoTRIgine 100 MG TAB PO SCH (08:06)
[2016-04-14] MEDS: INSULIN LISPRO (humaLOG) 300 UNIT/3 ML VIAL SQ SCH ×4 (08:06→20:49)
[2016-04-14] MEDS: HEPARIN SODIUM,PORCINE 5,000 UNIT/ML 1 ML VIAL SQ SCH ×2 (08:06→17:09)
[2016-04-14] MEDS: PREGABALIN 75 MG CAP PO SCH ×3 (08:06→20:50)
[2016-04-14] MEDS: FLUoxetine HCL 20 MG CAP PO SCH (08:07)
[2016-04-14] MEDS: PANTOPRAZOLE 40 MG TABLET PO SCH ×2 (08:07→17:48)
[2016-04-14] MEDS: FUROSEMIDE 20 MG TAB PO SCH (08:08)
[2016-04-14] MEDS: METOPROLOL TARTRATE 50 MG TAB PO SCH ×2 (08:08→20:49)
[2016-04-14] MEDS: POTASSIUM CHLORIDE ER 20 MEQ TAB.ER PO SCH (08:09)
[2016-04-14] MEDS: guaiFENesin-Coden 100-10MG/5ML 10 ML CUP PO PRN ×3 (08:10→20:50)
[2016-04-14] MEDS: SYMBICORT 160-4.5 MCG INHALER INHALATION SCH ×2 (09:02→20:24)
[2016-04-14] MEDS: IPRATROPIUM-ALBUTEROL 3 ML NEB INHALATION PRN ×2 (09:03→20:24)
[2016-04-14 09:05] LABS: INR 1.1 (<1.1); Prothrombin Time 10.6 sec (9.0-12.0)
--- NOTE | 2016-04-14 09:49 | PCN ---
DATE OF PROCEDURE: PROCEDURE PERFORMED: Bronchoscopy. PREOPERATIVE DIAGNOSIS: Bilateral pulmonary infiltrates, right more than left. POSTOPERATIVE DIAGNOSIS: Bilateral pulmonary infiltrates, right more than left. INDICATION FOR THE PROCEDURE: This patient is having recurrent bouts of bilateral pulmonary infiltrates and acute hypoxic respiratory failure. Exact diagnosis is not established. Rule out BOOP, rule out hypersensitivity pneumonitis, rule out other forms of idiopathic interstitial pneumonias. Based on this, I intended to do a bronchoscopy and transbronchial biopsy on this patient. This procedure was done under conscious sedation with anesthetic agents being administered by anesthesia at the bedside. After achieving adequate sedation, flexible bronchoscope was inserted through the left nostril and was advanced through the upper airway. Examination of the posterior pharynx, larynx, epiglottis and vocal cords was done. Upper airway structures were quite crowded and there was significant adipose tissue growing circumferentially around the larynx. At that point, epiglottis was identified and the vocal cords were in the midline, symmetrical and fully mobile. Lidocaine was applied to the vocal cords and following that, the bronchoscope was advanced through the upper airway. Examination of tracheobronchial tree was done. Respiratory secretions were identified, a significant amount and the trachea, bilateral mainstem bronchi bilaterally. There was mild degree of tracheobronchomalacia. Therapeutic airway suctioning was done and the purulent respiratory secretions were essentially suctioned out and adequate pulmonary toileting was performed. The underlying bronchial mucosa seemed to be erythematous and somewhat inflamed. No foreign bodies. No tumors were seen. Visualized airways included trachea, bilateral mainstem bronchi, right upper, right middle, right lower lobe, left upper lobe and left lower lobe bronchus, along with various segments and subsegments. Quick bronchoalveolar lavage of the right middle lobe was done with a total of 60 mL of fluid was infused and 25 to 30 mL of purulent material was aspirated. Following that, I was getting ready to perform transbronchial biopsy; however, I was unable to complete the procedure based on the fact that the patient developed significant desaturations. At one point the pulse ox dropped into the low 50s. Immediately the bronchoscope was removed, an airway was established and the patient was given Ambo bagging. Within less than a minute, her pulse ox recovered; however, the patient continued to have hypoventilation and upper airway obstruction was suspected based on the fact that the patient has obvious and typical features of obstructive sleep apnea syndrome. After the patient was monitored accordingly in the Endoscopy Suite for another 5 minutes and following that, she fully recovered. The airway was removed and spontaneous breathing was noted with adequate oxygenation while the patient being on 3 to 4 L/min nasal cannula. Unfortunately, I was unable to performed transbronchial biopsies due to above mentioned respiratory complications. I was able; however, to collect a bronchoalveolar lavage from the right mid lung. The samples were sent for microbial analysis and cultures.
[2016-04-14] MEDS: ALPRAZolam 0.5 MG TAB PO PRN ×2 (11:14→16:25)
[2016-04-14 12:05] LABS: Glucose,Whole Blood 167 mg/dL (75-99)
[2016-04-14] MEDS ORDERED: RX INFO: IV CONTRAST WAS GIVEN 1 EACH MISC MISCELLANE PRN (13:16)
--- NOTE | 2016-04-14 14:32 | P.PN ---
Subjective Date of service 04/13/2016 Progress note being dictated for Dr. Zepeda Interval History: This Is a 45-year-old Female Admitted with Acute Hypoxic Respiratory Failure, recurrent Pulmonary Infiltrates greater on the right and multiple other medical issues. Breathing slowly improving on nebulized bronchodilators, empiric antibiotics and IV steroids. Scheduled for PICC line and bronchoscopy today. Denies chest pain, or palpitations. Afebrile. Objective - Vital Signs Vital signs: Vital Signs Temp 97.3 F L 04/13/16 15:32 Pulse 86 04/13/16 15:32 Resp 22 04/13/16 15:32 BP 98/68 04/13/16 15:32 Pulse Ox 94 L 04/13/16 15:32 Intake & Output 04/12/16 04/13/16 04/13/16 18:59 06:59 18:59 Intake Total 720 510 800 Output Total 1 Balance 720 509 800 Weight 100 kg Intake: IV 270 800 0.9 NS @ 20 ml/hr 220 Piperacillin-Tazobactam 3 50 .375 gm In Dextrose/Water 1 50ml.bag @ 12.5 mls/hr IVPB Q8HR [facility] Rx#: [id number] Oral 720 240 Output: Urine 1 Other: Voiding Method Toilet Toilet Toilet # Voids 2 3 - Exam PHYSICAL EXAM: VITAL SIGNS: As above GENERAL: [Sitting up in bed, no acute distress] HEENT: [Pupils equal conjunctiva normal.] NECK: [Supple, no JVD] RESPIRATORY EFFORT:[Normal] LUNGS: [Diminished with scattered expiratory wheezes throughout and scattered rhonchi, no crackles] CARDIOVASCULAR[regular S1 and S2, no murmurs no rubs no edema] GI: [Abdomen soft, nontender, positive bowel sounds.] PSYCH: [Alert and oriented -3, mood and affect normal.] NEURO: No focal deficits - Labs CBC & Chem 7: 04/14/16 05:19 04/14/16 05:19 Labs: Abnormal Lab Results - Last 24 Hours (Table) 04/12/16 04/13/16 04/13/16 Range/Units 21:27 07:41 11:44 POC Glucose (mg/dL) 219 H 207 H 102 H (75-99) mg/dL 04/13/16 Range/Units 17:13 POC Glucose (mg/dL) 132 H (75-99) mg/dL Assessment and Plan Plan: 1. [Acute hypoxic respiratory failure, recurrent,possible ARDS, possible underlying interstitial lung disease] 2. [Recurrent pulmonary infiltrates greater on the right, probably not infectious, 3. [Morbid obesity, BMI 36.8]. 4. [Polycythemia]. 5. [Bipolar disorder]. 6. [History of DVT and pulmonary embolism]. 7. [CAD with history of DC]. 8. History of nicotine abuse Plan: Continue on current medication regime, IV steroids, empiric antibiotics, nebulized bronchodilators, monitoring and symptomatic treatment. PICC line and bronchoscopy pending. Follow closely with pulmonary. Further recommendations to follow. The impression and plan of care has been dictated as directed. : I performed a H&P examination of this patient and discussed the same with the dictator. I agree with the dictator's note. Any additional findings/opinions/ etc. will be noted.
--- NOTE | 2016-04-14 15:02 | P.PN ---
Subjective Date of service 04/14/2016 Progress note being dictated for Dr. Zepeda Interval History: This Is a 45-year-old Female Admitted with Acute Hypoxic Respiratory Failure, recurrent Pulmonary Infiltrates greater on the right and multiple other medical issues. Underwent bronchoscopy yesterday, pleural fluid cultures obtained , biopsy unable to be taken as patient desatted during the procedure . Complains of loose nonproductive cough, tender, swollen left neck extending into the jaw bone.denies difficulty swallowing , denies increased shortness of breath. Breathing continues to slowly improving on nebulized bronchodilators, empiric antibiotics and IV steroids. PICC line placed yesterday. Denies chest pain, or palpitations. Afebrile, normal WBC. Objective - Vital Signs Vital signs: Vital Signs Temp 97.2 F L 04/14/16 07:00 Pulse 75 04/14/16 09:17 Resp 16 04/14/16 08:00 BP 108/74 04/14/16 07:00 Pulse Ox 94 L 04/14/16 09:04 Intake & Output 04/13/16 04/14/16 04/14/16 18:59 06:59 18:59 Intake Total 1280 630 Balance 1280 630 Weight 103.5 kg Intake: IV 800 270 0.9 NS @ 20 ml/hr 220 Piperacillin-Tazobactam 3 50 .375 gm In Dextrose/Water 1 50ml.bag @ 12.5 mls/hr IVPB Q8HR [facility] Rx#: [id number] Oral 480 360 Other: Voiding Method Toilet Toilet Toilet # Voids 3 2 - Exam PHYSICAL EXAM: VITAL SIGNS: As above GENERAL: [Sitting up in bed, no acute distress] HEENT: [Pupils equal conjunctiva normal.] NECK: [Supple, no JVD,left neck edema extending up into jaw bone, tender, no lymph nodes palpated, reddened but had been on heated blanket] RESPIRATORY EFFORT:[Normal] LUNGS: [Diminished with scattered bilateral expiratory wheezes, scattered rhonchi, no crackles] CARDIOVASCULAR[regular S1 and S2, no murmurs no rubs no edema] GI: [Abdomen soft, nontender, positive bowel sounds.] PSYCH: [Alert and oriented -3, mood and affect normal.] NEURO: No focal deficits - Labs CBC & Chem 7: 04/14/16 05:19 04/14/16 05:19 Labs: Abnormal Lab Results - Last 24 Hours (Table) 04/13/16 04/13/16 04/14/16 Range/Units 17:13 20:55 05:19 Neutrophils # 7.8 H (1.3-7.7) k/uL Glucose (74-99) mg/dL POC Glucose (mg/dL) 132 H 215 H (75-99) mg/dL 04/14/16 04/14/16 04/14/16 Range/Units 05:19 07:18 12:03 Neutrophils # (1.3-7.7) k/uL Glucose 173 H (74-99) mg/dL POC Glucose (mg/dL) 202 H 167 H (75-99) mg/dL Microbiology - Last 24 Hours (Table) 04/13/16 14:12 Gram Stain - Preliminary Bronchial Washings - Right Bronchial Washings Culture - Preliminary Assessment and Plan Plan: 1. [Acute hypoxic respiratory failure, recurrent,possible ARDS, possible underlying interstitial lung disease, status post bronchoscopy] 2. [Recurrent pulmonary infiltrates greater on the right, probably not infectious, 3. [Morbid obesity, BMI 36.8]. 4. [Polycythemia]. 5. [Bipolar disorder]. 6. [History of DVT and pulmonary embolism]. 7. [CAD with history of DE]. 8. History of nicotine abuse 9. PICC line placement. 10. Left neck tenderness with swelling, rule out parotiditis or infection 11. Coumadin monitoring Plan: Continue on current medication regime, IV steroids, empiric antibiotics, nebulized bronchodilators, monitoring and symptomatic treatment. ENT consulted regarding left neck swelling/tenderness, CT of neck ordered. As mentioned above unable to obtain biopsy during bronch, follow pleural fluid cultures closely. Coumadin resumed.Further recommendations to follow. The impression and plan of care has been dictated as directed. : I performed a H&P examination of this patient and discussed the same with the dictator. I agree with the dictator's note. Any additional findings/opinions/ etc. will be noted.
--- NOTE | 2016-04-14 15:29 | P.PN ---
Subjective This is a very pleasant 45-year-old female patient who presented here in 2016 with complaints of increasing shortness of breath cough congestion chills or night sweats. She was found to have recurrent pneumonias. She's had multiple admissions for the same. She's been ventilatory dependent in the past. She's also been at the [facility] and [facility]. Her chest x-ray continues to show diffuse pulmonary infiltrates bilaterally more so on the left. She has been slow to progress. She has no conclusive diagnosis. Dr. Hicks has suspected possible recurrent acute lung injury/ARDS type of picture, sarcoidosis, discriminative interstitial pneumonia secondary to smoking or possibly hypersensitivity pneumonia/BOOP. He had performed bronchoscopy with BAL yesterday. Unfortunately the patient desaturated quite quickly and no biopsies were able to be taken. She is seen again today 04/14/2016 in follow-up. She is awake and alert in no acute distress. She is doing slightly better today as compared to yesterday. Her chest x-ray is slightly improved. She is maintaining good O2 saturations in the mid to upper 90s on 3 L/m per nasal cannula. She is afebrile. No tachycardia. Hemodynamically stable. No leukocytosis. No significant findings on bronchial washings thus far. Objective - Vital Signs Vital signs: Vital Signs Temp 97.2 F L 04/14/16 07:00 Pulse 75 04/14/16 09:17 Resp 16 04/14/16 08:00 BP 108/74 04/14/16 07:00 Pulse Ox 94 L 04/14/16 09:04 Intake & Output 04/13/16 04/14/16 04/14/16 18:59 06:59 18:59 Intake Total 1280 630 Balance 1280 630 Weight 103.5 kg Intake: IV 800 270 0.9 NS @ 20 ml/hr 220 Piperacillin-Tazobactam 3 50 .375 gm In Dextrose/Water 1 50ml.bag @ 12.5 mls/hr IVPB Q8HR [facility] Rx#: [id number] Oral 480 360 Other: Voiding Method Toilet Toilet Toilet # Voids 3 2 - Exam GENERAL EXAM: Obese. Alert, comfortable in no apparent distress. HEAD: Normocephalic. EYES: Normal reaction of pupils, equal size. NOSE: Clear with pink turbinates. THROAT: Crowding the posterior pharynx. No erythema or exudates. NECK: Short. No masses, no JVD. CHEST: No chest wall deformity. LUNGS: Equal air entry with bilateral wheezing, scattered rhonchi, diminished. CVS: S1 and S2 normal with no audible murmurs, regular rhythm. ABDOMEN: No hepatosplenomegaly, normal bowel sounds, no guarding or rigidity. SPINE: No scoliosis or deformity SKIN: No rashes CENTRAL NERVOUS SYSTEM: No focal deficits, tone is normal in all 4 extremities. Extremities: There is trace peripheral edema. No clubbing, no cyanosis. Peripheral pulses are intact. - Labs CBC & Chem 7: 04/14/16 05:19 04/14/16 05:19 Labs: Abnormal Lab Results - Last 24 Hours (Table) 04/13/16 04/13/16 04/14/16 Range/Units 17:13 20:55 05:19 Neutrophils # 7.8 H (1.3-7.7) k/uL Glucose (74-99) mg/dL POC Glucose (mg/dL) 132 H 215 H (75-99) mg/dL 04/14/16 04/14/16 04/14/16 Range/Units 05:19 07:18 12:03 Neutrophils # (1.3-7.7) k/uL Glucose 173 H (74-99) mg/dL POC Glucose (mg/dL) 202 H 167 H (75-99) mg/dL Microbiology - Last 24 Hours (Table) 04/13/16 14:12 Gram Stain - Preliminary Bronchial Washings - Right Bronchial Washings Culture - Preliminary Assessment and Plan Plan: Impression: #1 Acute hypoxic respiratory failure with recurrent pulmonary infiltrate, right more than left. The exact nature of this recurrent pulmonary infiltration is not clear. Previous bronchoscopies in alveolar lavages revealed no evidence of bacterial, viral, mycobacterial parasitic infections. She possibly has recurrent and inflammatory infection secondary to acute lung injury/ARDStype picture, sarcoidosis, that the squamous interstitial pneumonia secondary to smoking, hypersensitivity pneumonia. She had undergone repeat bronchoscopy with BAL today. Unfortunately, biopsies were not able to be obtained secondary to desaturations and brief episodes of apnea. Cultures of which are pending. #2 previous history of DVT/PE. #3 Morbid obesity. #4 Chronic and ongoing nicotine addiction. #5 Secondary polycythemia. #6 History of viral meningitis in October 2014. #7 Bipolar disorder. #8 Degenerative disc disease. #9 Coronary artery disease with previous myocardial infarction. #10 Multiple bouts of acute hypoxic respiratory failure with ventilator dependence #11 Previous history of MRSA pneumonias. Plan: The patient was seen and evaluated by Dr. Hicks. Her chest x-ray and labs were reviewed. There is improvement in her chest x-ray and she is improved clinically. Not quite back to her baseline. She continues with a dry nonproductive cough. She is dyspneic on minimal exertion. We'll continue with her current pulmonary medications. We'll increase her activity as tolerated. We'll await culture results. We'll continue to follow make further recommendations based on her clinical status.
[2016-04-14] MEDS ORDERED: FAMOTIDINE 20 MG/2 ML VIAL IV ONE (17:00)
[2016-04-14] MEDS ORDERED: diphenhydrAMINE 50 MG/ML 1 ML VIAL IVP ONE (17:00)
[2016-04-14 17:01] LABS: Glucose,Whole Blood 214 mg/dL (75-99)
[2016-04-14] MEDS: WARFARIN 2.5 MG TAB PO SCH (17:49)
[2016-04-14] MEDS: WARFARIN 10 MG TAB PO SCH (17:49)
--- NOTE | 2016-04-14 18:09 | CT ---
EXAMINATION TYPE: CT soft tissue neck w con DATE OF EXAM: 04/14/2016 5:47 PM COMPARISON: NONE HISTORY: Patient complains of left side facial and neck swelling, redness, and pain. CT DLP: 1215 mGycm Automated exposure control for dose reduction was used. CONTRAST: CT scan of the neck is performed following with IV Contrast, patient injected with 100 mL of Omnipaqu e 300. Axial images are obtained, coronal and sagittal reformatted images are reviewed. FINDINGS: There is normal branching pattern of the great vessels on the aortic arch. Thyroid gland is symmetric . There is bilateral patency of the common internal and external carotid arteries. There is bilateral patency of the vertebral arteries. The submandibular salivary glands are symmetric. Parotid glands are symmetric. There is normal aerati on of the paranasal sinuses. I see no bony destructive process. There is no evidence of a pharyngeal mass. Epiglottis appears normal. Trachea appears normal. Adenoids appear normal. I do not see any sig nificant subcutaneous edema. The cervical spine is intact. IMPRESSION: Negative CT scan of the neck.
--- NOTE | 2016-04-14 18:47 | XR ---
EXAMINATION TYPE: XR chest 2V DATE OF EXAM: 04/14/2016 5:40 PM COMPARISON: 04/13/2016 HISTORY: Pneumonia. Sarcoidosis. TECHNIQUE: Frontal and lateral views of the chest are obtained. FINDINGS: Heart and mediastinum are normal. There is mild coarsening of interstitial pulmonary zachery ngs. There are no hilar masses. There is no pleural effusion. There is a relatively poor inspiration. IMPRESSION: Poor inspiration and coarsening of the lung markings consistent with mild fibrosis and a lso consistent with sarcoidosis. This is stable compared to yesterday.. Lung markings are the same or slightly increased compared to 03/29/2016.
[2016-04-14 20:46] LABS: Glucose,Whole Blood 205 mg/dL (75-99)
[2016-04-14] MEDS: DEXAMETHASONE SOD PHOSPHATE 10 MG/ML 1 ML VIAL IV SCH (20:48)
[2016-04-14] MEDS: MONTELUKAST 10 MG TAB PO SCH (20:49)
[2016-04-14] MEDS: ATORVASTATIN 10 MG TAB PO SCH (20:49)
[2016-04-14] MEDS: MIRTAZAPINE 15 MG TAB PO SCH (20:50)
[2016-04-15] MEDS: PIPERACILLIN-TAZOBACTAM 3.375 GM in DEXTROSE/WATER 1 50ML.BAG IVPB SCH ×4 (00:03→23:19)
[2016-04-15] MEDS: HYDROmorphone 1 MG/ML 1 ML SYRINGE IVP PRN ×8 (00:03→21:35)
[2016-04-15] MEDS: HEPARIN SODIUM,PORCINE 5,000 UNIT/ML 1 ML VIAL SQ SCH ×4 (00:03→23:20)
[2016-04-15] MEDS: DEXAMETHASONE SOD PHOSPHATE 10 MG/ML 1 ML VIAL IV SCH (03:03)
[2016-04-15] MEDS: HYDROcodone/APAP 5-325MG 1 EACH TAB PO PRN ×5 (04:04→23:19)
[2016-04-15] MEDS: ALPRAZolam 0.5 MG TAB PO PRN ×4 (04:04→23:19)
[2016-04-15 06:35] LABS: Prothrombin Time 10.4 sec (9.0-12.0)
[2016-04-15 07:22] LABS: Glucose,Whole Blood 129 mg/dL (75-99)
[2016-04-15] MEDS: INSULIN LISPRO (humaLOG) 300 UNIT/3 ML VIAL SQ SCH ×4 (07:49→21:34)
[2016-04-15] MEDS: DEXAMETHASONE SOD PHOSPHATE 4 MG/ML 1 ML VIAL IV SCH ×2 (07:51→14:45)
[2016-04-15] MEDS: lamoTRIgine 100 MG TAB PO SCH (07:51)
[2016-04-15] MEDS: METOPROLOL TARTRATE 50 MG TAB PO SCH ×2 (07:52→21:34)
[2016-04-15] MEDS: PANTOPRAZOLE 40 MG TABLET PO SCH ×2 (07:52→17:08)
[2016-04-15] MEDS: POTASSIUM CHLORIDE ER 20 MEQ TAB.ER PO SCH (07:52)
[2016-04-15] MEDS: PREGABALIN 75 MG CAP PO SCH ×3 (07:52→21:35)
[2016-04-15] MEDS: FUROSEMIDE 20 MG TAB PO SCH (07:53)
[2016-04-15] MEDS: guaiFENesin-Coden 100-10MG/5ML 10 ML CUP PO PRN ×3 (07:54→21:35)
[2016-04-15] MEDS: FLUoxetine HCL 20 MG CAP PO SCH (07:54)
[2016-04-15] MEDS: SYMBICORT 160-4.5 MCG INHALER INHALATION SCH ×2 (09:31→20:38)
[2016-04-15] MEDS: IPRATROPIUM-ALBUTEROL 3 ML NEB INHALATION PRN ×4 (09:32→20:38)
[2016-04-15 12:11] LABS: Glucose,Whole Blood 187 mg/dL (75-99)
--- NOTE | 2016-04-15 12:47 | P.PN ---
Subjective This is a very pleasant 45-year-old female patient who presented here in 2016 with complaints of increasing shortness of breath cough congestion chills or night sweats. She was found to have recurrent pneumonias. She's had multiple admissions for the same. She's been ventilatory dependent in the past. She's also been at the [facility] and [facility]. Her chest x-ray continues to show diffuse pulmonary infiltrates bilaterally more so on the left. She has been slow to progress. She has no conclusive diagnosis. Dr. Hicks has suspected possible recurrent acute lung injury/ARDS type of picture, sarcoidosis, desquamous interstitial pneumonia secondary to smoking or possibly hypersensitivity pneumonia/BOOP. He had performed bronchoscopy with BAL yesterday. Unfortunately the patient desaturated quite quickly and no biopsies were able to be taken. She is seen again today 04/15/2016 in follow-up. She is awake and alert in no acute distress. She has been up in the shower today. She is doing slightly better today as compared to yesterday. Her chest x-ray is slightly improved. She is maintaining good O2 saturations in the mid to upper 90s on 3 L/m per nasal cannula. She is afebrile. No tachycardia. Hemodynamically stable. No leukocytosis. No significant findings on bronchial washings thus far. We're now most likely suspecting desquamous interstitial pneumonia secondary to chronic nicotine addiction. Objective - Vital Signs Vital signs: Vital Signs Temp 97.7 F 04/15/16 07:00 Pulse 76 04/15/16 09:47 Resp 20 04/15/16 07:00 BP 117/72 04/15/16 07:00 Pulse Ox 97 04/15/16 07:00 Intake & Output 04/14/16 04/15/16 04/15/16 18:59 06:59 18:59 Intake Total 400 640 480 Balance 400 640 480 Weight 99.5 kg Intake: IV 200 0.9 NS @ 20 ml/hr 100 Piperacillin-Tazobactam 3 100 .375 gm In Dextrose/Water 1 50ml.bag @ 12.5 mls/hr IVPB Q8HR [id number] Rx#: [id number] Oral 200 640 480 Other: Voiding Method Toilet Toilet # Voids 2 3 # Bowel Movements 0 - Exam GENERAL EXAM: Obese. Alert, comfortable in no apparent distress. HEAD: Normocephalic. EYES: Normal reaction of pupils, equal size. NOSE: Clear with pink turbinates. THROAT: Crowding the posterior pharynx. No erythema or exudates. NECK: Short. No masses, no JVD. CHEST: No chest wall deformity. LUNGS: Equal air entry with bilateral wheezing, scattered rhonchi, diminished. CVS: S1 and S2 normal with no audible murmurs, regular rhythm. ABDOMEN: No hepatosplenomegaly, normal bowel sounds, no guarding or rigidity. SPINE: No scoliosis or deformity SKIN: No rashes CENTRAL NERVOUS SYSTEM: No focal deficits, tone is normal in all 4 extremities. Extremities: There is trace peripheral edema. No clubbing, no cyanosis. Peripheral pulses are intact. - Labs CBC & Chem 7: 04/14/16 05:19 04/14/16 05:19 Labs: Abnormal Lab Results - Last 24 Hours (Table) 04/14/16 04/14/16 04/15/16 Range/Units 16:59 20:44 07:01 POC Glucose (mg/dL) 214 H 205 H 129 H (75-99) mg/dL 04/15/16 Range/Units 12:08 POC Glucose (mg/dL) 187 H (75-99) mg/dL Microbiology - Last 24 Hours (Table) 04/13/16 14:12 Gram Stain - Final Bronchial Washings - Right Bronchial Washings Culture - Final Assessment and Plan Plan: Impression: #1 Acute hypoxic respiratory failure with recurrent pulmonary infiltrate, right more than left. The exact nature of this recurrent pulmonary infiltration is not clear. Previous bronchoscopies in alveolar lavages revealed no evidence of bacterial, viral, mycobacterial parasitic infections. She possibly has recurrent and inflammatory infection secondary to desquamous interstitial pneumonia secondary to smoking. She had undergone repeat bronchoscopy with BAL today. Unfortunately, biopsies were not able to be obtained secondary to desaturations and brief episodes of apnea. Cultures of which are showing no growth thus far. #2 Previous history of DVT/PE. #3 Morbid obesity. #4 Chronic and ongoing nicotine addiction. #5 Secondary polycythemia. #6 History of viral meningitis in October 2014. #7 Bipolar disorder. #8 Degenerative disc disease. #9 Coronary artery disease with previous myocardial infarction. #10 Multiple bouts of acute hypoxic respiratory failure with ventilator dependence #11 Previous history of MRSA pneumonias. Plan: The patient was seen and evaluated by Dr. Hicks. There is improvement in her chest x-ray and she is improved clinically. Not quite back to her baseline. She continues with a dry nonproductive cough. She is dyspneic on minimal exertion. We'll continue with her current pulmonary medications. We' ll increase her activity as tolerated. We'll await culture results. Hopefully patient for discharge in the next 24-48 hours. We'll continue to follow make further recommendations based on her clinical status.
--- NOTE | 2016-04-15 15:21 | PN ---
The patient is a 45-year-old admitted with acute respiratory failure. Patient underwent bronchoscopy. Patient is on Zosyn at this point of time. Patient is still not at her baseline. Patient was complaining of swelling and pain in the left side of the neck area and jaw area because of which I have concern of parotitis because of which I consulted ENT. CT was obtained, which is not consistent with parotitis and her symptoms are better with systemic steroids, which will be continued. REVIEW OF SYSTEMS: REVIEW OF SYSTEMS: CARDIOVASCULAR: No chest pain, no orthopnea, no PND, no palpitations. RESPIRATORY: Continues to have some shortness of breath, but has significant improvement. The patient does not use any oxygen at home. GASTROINTESTINAL: No diarrhea, nausea or vomiting. No abdominal pain. Normoactive bowel sounds. NEUROLOGIC: No headaches, no weakness, no numbness. Medications are reviewed. PHYSICAL EXAMINATION: Temperature 97.7, pulse of 64, respiratory rate 20, blood pressure is 117/72, saturating at 97% on 3 L of O2 by nasal cannula, which we can cut it down to 2 and completely tapered it down and turn it off. GENERAL: The patient is alert and oriented x3, not in any acute distress. Well developed, well nourished. HEENT: Pupils are round and equally reacting to light. EOMI. No scleral icterus. No conjunctival pallor. Normocephalic, atraumatic. No pharyngeal erythema. No thyromegaly. CARDIOVASCULAR: S1 and S2 present. No murmurs, rubs, or gallops. LUNG EXAMINATION: Very minimal bibasilar crackles were heard. Fairly good air entry into bilateral lung diana. No wheezing was appreciated. ABDOMEN: Soft, nontender, nondistended, normoactive bowel sounds. No palpable organomegaly. MUSCULOSKELETAL: No joint swelling or deformity. EXTREMITIES: No cyanosis, clubbing, or pedal edema. NEUROLOGICAL: Gross neurological examination did not reveal any focal deficits. SKIN: No rashes. Laboratory data was reviewed, significant, INR is 1.0. Patient is on 12.5 mg of Coumadin. ASSESSMENT AND PLAN: 1. Acute hypoxic respiratory failure possibly secondary to ARDS and possibility of interstitial lung disease and cannot rule out infectious etiologies but possibility is low. Patient is on antibiotics, status post bronchoscopy, systemic steroids, left-sided neck pain, low suspicion of parotitis, pain resolved. 2. Morbid obesity. 3. Bipolar disorder. 4. Coronary artery disease. 5. History of pulmonary embolism. The patient has subtherapeutic INR. Continue with the same dose of Coumadin. Repeat INR tomorrow.
[2016-04-15 17:07] LABS: Glucose,Whole Blood 160 mg/dL (75-99)
[2016-04-15] MEDS: methylPREDNISolone SOD SUCCI 125 MG/2 ML VIAL IV SCH ×2 (17:08→23:20)
[2016-04-15] MEDS: WARFARIN 10 MG TAB PO SCH (17:09)
[2016-04-15] MEDS: WARFARIN 2.5 MG TAB PO SCH (17:09)
[2016-04-15 21:13] LABS: Glucose,Whole Blood 228 mg/dL (75-99)
[2016-04-15] MEDS: ATORVASTATIN 10 MG TAB PO SCH (21:34)
[2016-04-15] MEDS: MONTELUKAST 10 MG TAB PO SCH (21:35)
[2016-04-15] MEDS: MIRTAZAPINE 15 MG TAB PO SCH (21:35)
[2016-04-16] MEDS: HYDROmorphone 1 MG/ML 1 ML SYRINGE IVP PRN ×8 (00:35→21:49)
[2016-04-16] MEDS: guaiFENesin-Coden 100-10MG/5ML 10 ML CUP PO PRN ×4 (03:32→21:58)
[2016-04-16] MEDS: HYDROcodone/APAP 5-325MG 1 EACH TAB PO PRN ×5 (04:29→21:48)
[2016-04-16] MEDS: methylPREDNISolone SOD SUCCI 125 MG/2 ML VIAL IV SCH ×4 (06:09→23:15)
[2016-04-16 06:38] LABS: INR 1.6 (<1.1); Prothrombin Time 15.6 sec (9.0-12.0)
[2016-04-16] MEDS: SYMBICORT 160-4.5 MCG INHALER INHALATION SCH ×2 (07:29→19:46)
[2016-04-16] MEDS: IPRATROPIUM-ALBUTEROL 3 ML NEB INHALATION PRN ×4 (07:29→19:46)
[2016-04-16 07:42] LABS: Glucose,Whole Blood 160 mg/dL (75-99)
[2016-04-16] MEDS: lamoTRIgine 100 MG TAB PO SCH (07:45)
[2016-04-16] MEDS: PIPERACILLIN-TAZOBACTAM 3.375 GM in DEXTROSE/WATER 1 50ML.BAG IVPB SCH ×3 (07:45→23:15)
[2016-04-16] MEDS: POTASSIUM CHLORIDE ER 20 MEQ TAB.ER PO SCH (07:45)
[2016-04-16] MEDS: FLUoxetine HCL 20 MG CAP PO SCH (07:45)
[2016-04-16] MEDS: METOPROLOL TARTRATE 50 MG TAB PO SCH ×2 (07:45→21:51)
[2016-04-16] MEDS: PREGABALIN 75 MG CAP PO SCH ×3 (07:45→21:50)
[2016-04-16] MEDS: ALPRAZolam 0.5 MG TAB PO PRN ×3 (07:46→21:49)
[2016-04-16] MEDS: HEPARIN SODIUM,PORCINE 5,000 UNIT/ML 1 ML VIAL SQ SCH ×3 (07:46→23:15)
[2016-04-16] MEDS: FUROSEMIDE 20 MG TAB PO SCH (07:46)
[2016-04-16] MEDS: PANTOPRAZOLE 40 MG TABLET PO SCH ×2 (07:46→17:52)
[2016-04-16] MEDS: INSULIN LISPRO (humaLOG) 300 UNIT/3 ML VIAL SQ SCH ×4 (07:46→21:51)
[2016-04-16 12:13] LABS: Glucose,Whole Blood 185 mg/dL (75-99)
--- NOTE | 2016-04-16 15:20 | P.PN ---
Subjective 45-year-old female presents emergency Department chief complaint shortness of breath. Patient states that she was just discharged less than 10 days ago for pneumonia, shortness breath, diffuse bilateral pulmonary infiltrates, acute hypoxic respiratory failure for which the patient underwent a bronchoscopy and the bronchioloalveolar lavage and all of the cultures came back negative. Ultimately the patient was treated with a combination of bronchodilators steroids and antibiotics and she improved and she was discharged home. Patient states that she has been having visiting nurses come out to evaluate her vitals. They did state that she was not oxygenating as well today and sent to the emergency department. Patient has chronic lung conditions in which she has been ventilated multiple times. Patient states she does feel tight in her chest. Patient denies any diaphoretic episodes, chills, nausea or vomiting. She states that she's been having a low-grade temp at home in which she's been taking acetaminophen. This patient has a complicated history of recurrent episodes of acute hypoxic respiratory failure and development of diffuse breath and pulmonary infiltrates. Knowing that during an earlier hospitalization of 03/22/2016 the patient developed diffuse groundglass bilateral pulmonary infiltrates on the CAT scan and her chest x-ray was showing diffuse reticular nodular pulmonary infiltration that looked to be typical of an acute lung injury/ARDS pattern. During the course of her treatment the patient went into acute hypoxic respiratory failure and one point she went on 100% nonrebreather facemask and she was very close to being intubated. During the same hospitalization the patient had a bronchoscopy and all of the microbial cultures came back negative. This is not a single event and the patient has had similar events in the past and she has been intubated at least on 3 different occasions. The overall clinical history remains not clear to me. The patient has been to various hospitals including [facility]. At one point she was diagnosed having sarcoidosis and the diagnosis established at [facility] based on the bronchoscopy and transbronchial biopsy and the patient was treated with systemic steroids for almost a year. She subsequently quit taking the steroids as she gained significant amount of weight. At this point in time, she does not have any extra pulmonary manifestations of sarcoidosis. No liver function abnormalities. No hypercalcemia. No nephrolithiasis. No skin changes. In addition, the most recent CAT scan of the chest shows only small mediastinal lymphadenopathy. However, the patient has responded nicely to systemic steroids. In fact she responded to IV Solu- Medrol and she was discharged home on a prednisone burst taper and her symptoms recurred once the prednisone was tapered down to 20 mg by mouth daily. Her most recent chest x-ray shows infiltration of the lungs bilaterally right more than left and this is obviously new findings compared to the previous x-ray of the one done on 03/29/2016. She is smoking. No ongoing exposure to respiratory irritants or any other pneumo toxic agents. Her ANAs negative. Her rheumatoid factor is negative. Anti-CCP antibodies are negative. Serum immunoglobulin levels are within normal with some modest elevation of the baseline IgE level in the 270 range. Based on hypersensitivity panel was done and the patient was found to have some exposure to molds. This does not establish a true diagnosis of hypersensitivity pneumonia and these are nonspecific findings. On 04/16/2016 the patient is being seen in follow-up. During this current hospital stay the patient was covered with systemic steroids and she was placed on empiric antibiotic coverage with IV Zosyn. At one point I decided to bronchoscope this patient try to get some transplant biopsies didn't establish a tissue diagnosis. Nevertheless it was not successful and the patient had significant desaturations at a time of the procedure and I was unable to perform any biopsies of the lungs. I was able to obtain a bronchioloalveolar lavage and the cultures came back again negative. The patient improved. Chest x-ray seems better although there is some residual interstitial prominence bilaterally which probably is related to smoking-related interstitial lung disease. No fever. No chills. She is less short of breath. No nausea or vomiting. She is ambulating pH is committed for smoking cessation. Her Gume level was normal. Her p-ANCA and c-ANCA levels were negative. The rest of the connective tissue disease workup was also negative. Objective - Vital Signs Vital signs: Vital Signs Temp 97.7 F 04/16/16 15:00 Pulse 69 04/16/16 15:00 Resp 20 04/16/16 15:00 BP 117/70 04/16/16 15:00 Pulse Ox 93 L 04/16/16 15:00 Intake & Output 04/15/16 04/16/16 04/16/16 18:59 06:59 18:59 Intake Total 1110 1390 480 Balance 1110 1390 480 Weight 102 kg Intake: IV 150 0.9 NS @ 20 ml/hr 100 Piperacillin-Tazobactam 3 50 .375 gm In Dextrose/Water 1 50ml.bag @ 12.5 mls/hr IVPB Q8HR [facility] Rx#: [id number] Oral 960 1390 480 Other: Voiding Method Toilet Toilet Toilet # Voids 2 3 - Exam Head exam was generally normal. There was no scleral icterus or corneal arcus. Mucous membranes were moist.Neck was supple and without jugular venous distension, thyromegaly, or carotid bruits. Carotids were easily palpable bilaterally. There was no adenopathy. Lung sounds are diminished bilaterally along with some scattered rhonchi and scattered expiratory wheezes.Cardiac exam revealed the PMI to be normally situated and sized. The rhythm was regular and no extrasystoles were noted during several minutes of auscultation. The first and second heart sounds were normal and physiologic splitting of the second heart sound was noted. There were no murmurs, rubs, clicks, or gallops.Abdominal exam revealed normal bowel sounds. The abdomen was soft, non- tender, and without masses, organomegaly, or appreciable enlargement of the abdominal aorta.Examination of the extremities revealed easily palpable radial, femoral and pedal pulses. There was no cyanosis, clubbing or edema. - Labs CBC & Chem 7: 04/14/16 05:19 04/14/16 05:19 Labs: Abnormal Lab Results - Last 24 Hours (Table) 04/15/16 04/15/16 04/16/16 Range/Units 16:57 21:11 06:15 PT 15.6 H (9.0-12.0) sec POC Glucose (mg/dL) 160 H 228 H (75-99) mg/dL 04/16/16 04/16/16 Range/Units 07:18 12:01 PT (9.0-12.0) sec POC Glucose (mg/dL) 160 H 185 H (75-99) mg/dL Microbiology - Last 24 Hours (Table) 04/13/16 14:12 Gram Stain - Final Bronchial Washings - Right Bronchial Washings Culture - Final Assessment and Plan Plan: Assessment 1 acute hypoxic respiratory failure with recurrent pulmonary infiltrate pulmonary infiltration, right more than left. The exact nature of this recurrent pulmonary infiltration is not clear to me. The patient during an earlier hospitalization had a bronchoscopy and the bronchioloalveolar lavage and essentially the microbial analysis was negative for any bacterial, viral, mycobacterial or parasitic infection. Repeat bronchoscopy and the bronchioloalveolar lavage was done during this current hospital physician was also negative for microbial growth. Suspect a smoking-related interstitial lung disease. We'll put is also another possibility. The patient however has clinically improved. 2 previous history of DVT and pulmonary embolism 3 obesity 4 smoking 5 secondary polycythemia 6 history of viral meningitis from October 2014 7 bipolar disorder 8 degenerative disc disease 9 coronary artery disease with previous myocardial infarction \ 10 multiple bouts of acute hypoxic history failure with ventilator dependence 11 previous history of MRSA pneumonia Plan Continue Solu Medrol for another 24 hours it was suspicion for a prednisone burst taper as of a.m. I'm going to stop the IV Zosyn. Switch this patient a prednisone burst taper in a.m. and discharge patient home to be followed up on outpatient basis. She has improved significantly clinically she is much better. It final diagnoses not been established although there is a strong suspicion for a smoking-related interstitial lung disease such as the desquamative interstitial pneumonia
--- NOTE | 2016-04-16 16:46 | PN ---
Patient is clinically doing well. Patient probably can be discharged tomorrow. REVIEW OF SYSTEMS: CARDIOVASCULAR: No chest pain, no orthopnea, no PND, no palpitations. PULMONARY: Denied any shortness of breath. No cough or hemoptysis. GASTROINTESTINAL: No diarrhea, nausea or vomiting. No abdominal pain. Normoactive bowel sounds. NEUROLOGIC: No headaches, no weakness, no numbness. Medications were reviewed. On physical exam, temperature 97.0, pulse of 64, respiratory rate of 20, blood pressure is 120/80, saturating at 95% on 3 L of O2 by nasal cannula. LUNG EXAMINATION: Coarse breath sounds are present bilaterally, which is a significant improvement. Patient has a fairly good air entry into bilateral lung diana and patient's lungs sound much better. GENERAL: The patient is alert and oriented x3, not in any acute distress. Well developed, well nourished. HEENT: Pupils are round and equally reacting to light. EOMI. No scleral icterus. No conjunctival pallor. Normocephalic, atraumatic. No pharyngeal erythema. No thyromegaly. CARDIOVASCULAR: S1 and S2 present. No murmurs, rubs, or gallops. ABDOMEN: Soft, nontender, nondistended, normoactive bowel sounds. No palpable organomegaly. MUSCULOSKELETAL: No joint swelling or deformity. EXTREMITIES: No cyanosis, clubbing, or pedal edema. NEUROLOGICAL: Gross neurological examination did not reveal any focal deficits. SKIN: No rashes. LABORATORY DATA: None available. ASSESSMENT AND PLAN: 1. Acute hypoxic respiratory failure, possibly secondary to ARDS versus interstitial lung disease, infectious etiology cannot be ruled out. Continue on systemic steroids and inhalational treatments. 2. Morbid obesity. 3. Bipolar disorder. 4. Coronary artery disease. 5. History of pulmonary embolism, subtherapeutic INR. Patient was restarted back on Coumadin at 12.5 mg, which will be continued. PLAN: Continue with systemic steroids, inhalational treatments, antibiotics and possibility of discharge tomorrow. Patient had significant improvement in her respiratory status after therapeutic bronchoscopy.
[2016-04-16 17:20] LABS: Glucose,Whole Blood 169 mg/dL (75-99)
[2016-04-16] MEDS: WARFARIN 10 MG TAB PO SCH (17:52)
[2016-04-16] MEDS: WARFARIN 2.5 MG TAB PO SCH (17:52)
[2016-04-16 21:38] LABS: Glucose,Whole Blood 174 mg/dL (75-99)
[2016-04-16] MEDS: MONTELUKAST 10 MG TAB PO SCH (21:50)
[2016-04-16] MEDS: ATORVASTATIN 10 MG TAB PO SCH (21:50)
[2016-04-16] MEDS: MIRTAZAPINE 15 MG TAB PO SCH (21:51)
[2016-04-17] MEDS: HYDROmorphone 1 MG/ML 1 ML SYRINGE IVP PRN ×4 (04:05→13:16)
[2016-04-17] MEDS: HYDROcodone/APAP 5-325MG 1 EACH TAB PO PRN ×2 (04:45→09:11)
[2016-04-17] MEDS: methylPREDNISolone SOD SUCCI 125 MG/2 ML VIAL IV SCH ×2 (05:12→13:15)
[2016-04-17 07:16] LABS: INR 2.6 (<1.1); Prothrombin Time 25.1 sec (9.0-12.0)
[2016-04-17] MEDS: SYMBICORT 160-4.5 MCG INHALER INHALATION SCH (07:17)
[2016-04-17] MEDS: IPRATROPIUM-ALBUTEROL 3 ML NEB INHALATION PRN ×2 (07:17→11:10)
[2016-04-17 07:40] LABS: Glucose,Whole Blood 126 mg/dL (75-99)
[2016-04-17] MEDS: INSULIN LISPRO (humaLOG) 300 UNIT/3 ML VIAL SQ SCH ×2 (08:16→13:15)
[2016-04-17] MEDS: PIPERACILLIN-TAZOBACTAM 3.375 GM in DEXTROSE/WATER 1 50ML.BAG IVPB SCH (09:05)
[2016-04-17] MEDS: HEPARIN SODIUM,PORCINE 5,000 UNIT/ML 1 ML VIAL SQ SCH (09:05)
[2016-04-17] MEDS: METOPROLOL TARTRATE 50 MG TAB PO SCH (09:05)
[2016-04-17] MEDS: FUROSEMIDE 20 MG TAB PO SCH (09:05)
[2016-04-17] MEDS: PANTOPRAZOLE 40 MG TABLET PO SCH (09:05)
[2016-04-17] MEDS: PREGABALIN 75 MG CAP PO SCH (09:06)
[2016-04-17] MEDS: POTASSIUM CHLORIDE ER 20 MEQ TAB.ER PO SCH (09:06)
[2016-04-17] MEDS: lamoTRIgine 100 MG TAB PO SCH (09:06)
[2016-04-17] MEDS: FLUoxetine HCL 20 MG CAP PO SCH (09:06)
[2016-04-17 09:10] VITALS: BP 134/79; RESP 18; TEMP 96.2
[2016-04-17] MEDS: ALPRAZolam 0.5 MG TAB PO PRN (09:11)
[2016-04-17] MEDS: guaiFENesin-Coden 100-10MG/5ML 10 ML CUP PO PRN (10:18)
[2016-04-17 11:13] VITALS: PULSE 64
[2016-04-17 12:33] LABS: Glucose,Whole Blood 128 mg/dL (75-99)
--- NOTE | 2016-04-17 13:56 | P.DS ---
Providers Date of admission: 04/10/16 16:52 Expected date of discharge: 04/17/16 Attending physician: Ulysses Zepeda Consults: 04/10/16 21:10 Consult Physician Routine Consulting Provider: Gayle Hicks Consult Reason/Comments: known to patient Do you want consulting provider notified?: Yes, Notify in am 04/14/16 13:33 Consult Physician Urgent Consulting Provider: Bhupendra Sin Consult Reason/Comments: r/o parotitis Do you want consulting provider notified?: Yes Dr. Noyola, Pulmonary Primary care physician: [facility] Course: Final Diagnoses: 1. Acute hypoxic respiratory failure secondary to possibly ARDS, possible interstitial lung disease, the possibility of infectious etiology, in a patient with history of recurrent pulmonary infiltrates, mechanical ventilation, MRSA pneumonia. 2. Status post bronchoscopy, cultures negative. 3. Left-sided neck pain, low suspicion of parotiditis, pain resolved 4. Morbid obesity, BMI 36.3 5. CAD 6. History of PE on Coumadin, home dose decreased as patient currently on steroids and antibiotics with current INR 2.6. 7. Nicotine abuse 8. bipolar disorder 9. Degenerative disc disease. Hospital course: This is a 45-year-old female admitted with acute respiratory failure, maintained on Zosyn, nebulized bronchodilators and steroids. Underwent bronchoscopy, cultures negative. P-ANCA and c-ANCA negative. Post procedure ,complained of left neck tenderness, swelling radiating up into the jaw. ENT consulted, CT of the neck negative. Significant clinical improvement. Cleared by pulmonary for discharge home. Patient is being discharged home in a stable condition with guarded prognosis. Patient Condition at Discharge: Stable Plan - Discharge Summary New Discharge Prescriptions: ALPRAZolam [Xanax] 0.5 mg PO QID PRN #20 tab PRN Reason: Anxiety Amoxic-Pot Clav 875-125Mg [Augmentin 875-125] 1 tab PO Q12HR #14 tablet HYDROcodone/APAP 5-325MG [[place] 5-325] 1 each PO Q6H PRN #20 tab PRN Reason: Moderate Pain Promethaz-Cod 6.25-10 mg/5 ml [Phenergan with Codeine] 1 tsp PO Q4HR PRN #8 oz PRN Reason: Cough Warfarin [Coumadin] 3 mg PO DAILY #7 tab Warfarin Sodium [Coumadin] 5 mg PO DAILY #7 tablet predniSONE 20 mg PO DIRECTED #190 tab Discharge Medication List Cetirizine HCl [Zyrtec] 10 mg PO DAILY PRN 07/16/14 [History] Ergocalciferol [Vitamin D2 (DRISDOL)] 50,000 units PO TH 07/16/14 [History] Omeprazole [PriLOSEC] 20 mg PO AC-BID 07/16/14 [History] Albuterol Inhaler [Ventolin Hfa Inhaler] 2 puff INHALATION RT-Q6H PRN #1 puff [Rx] FLUoxetine HCL [PROzac] 20 mg PO DAILY #30 capsule 08/20/15 [Rx] Ipratropium-Albuterol Nebulize [Duoneb 0.5 mg-3 mg/3 ml Soln] 3 ml INHALATION RT -Q4H PRN #180 neb 08/20/15 [Rx] Methocarbamol [Robaxin] 750 mg PO QID PRN #40 tab 08/20/15 [Rx] Metoprolol Tartrate [Lopressor] 50 mg PO BID #60 tab 08/20/15 [Rx] Mirtazapine [Remeron] 30 mg PO HS #30 tablet 08/20/15 [Rx] Montelukast [Singulair] 10 mg PO HS #30 tab 08/20/15 [Rx] Simvastatin [Zocor] 10 mg PO HS #30 tab 08/20/15 [Rx] Budesonide-Formot 160-4.5 Mcg [Symbicort 160-4.5 Mcg Inhaler] 2 puff INHALATION RT-BID 08/23/15 [History] guaiFENesin/CODEINE PHOSPHATE 5 ml PO Q6HR PRN #80 ml 02/17/16 [Rx] Enoxaparin [Lovenox] 100 mg SQ DAILY 02/20/16 [History] lamoTRIgine [LaMICtal] 200 mg PO DAILY 03/22/16 [History] Furosemide [Lasix] 20 mg PO DAILY 03/30/16 [History] Nystatin 100,000 Unit/ml Susp [Mycostatin Oral Susp] 400,000 units PO QID [History] Potassium Chloride [Klor-Con 20] 20 meq PO DAILY 04/10/16 [History] Pregabalin [Lyrica] 150 mg PO TID 04/10/16 [History] predniSONE See Taper PO DAILY 04/10/16 [History] ALPRAZolam [Xanax] 0.5 mg PO QID PRN #20 tab 04/17/16 [Rx] Amoxic-Pot Clav 875-125Mg [Augmentin 875-125] 1 tab PO Q12HR #14 tablet [Rx] HYDROcodone/APAP 5-325MG [[place] 5-325] 1 each PO Q6H PRN #20 tab 04/17/16 [Rx] Promethaz-Cod 6.25-10 mg/5 ml [Phenergan with Codeine] 1 tsp PO Q4HR PRN #8 oz 04/17/16 [Rx] Warfarin Sodium [Coumadin] 5 mg PO DAILY #7 tablet 04/17/16 [Rx] Warfarin [Coumadin] 3 mg PO DAILY #7 tab 04/17/16 [Rx] predniSONE 20 mg PO DIRECTED #190 tab 04/17/16 [Rx] Follow up Appointment(s)/Referral(s): Everardo Stanley MD [Primary Care Provider] - 04/20/16 9:20 am Gayle Hicks MD [STAFF PHYSICIAN] - 04/28/16 9:00 am Ambulatory/Diagnostic Orders: Prothrombin Time INR [LAB.AMB] Time Frame: 04/19/16, Location: Determined By Patient Patient Instructions/Handouts: Heart Failure (DC) Activity/Diet/Wound Care/Special Instructions: No smoking Diet: Cardiac Activity: Limited until follow up
--- NOTE | 2016-04-17 16:33 | P.PN ---
Subjective Principal diagnosis: Acute hypoxic respiratory failure and interstitial lung disease 45-year-old female presents emergency Department chief complaint shortness of breath. Patient states that she was just discharged less than 10 days ago for pneumonia, shortness breath, diffuse bilateral pulmonary infiltrates, acute hypoxic respiratory failure for which the patient underwent a bronchoscopy and the bronchioloalveolar lavage and all of the cultures came back negative. Ultimately the patient was treated with a combination of bronchodilators steroids and antibiotics and she improved and she was discharged home. Patient states that she has been having visiting nurses come out to evaluate her vitals. They did state that she was not oxygenating as well today and sent to the emergency department. Patient has chronic lung conditions in which she has been ventilated multiple times. Patient states she does feel tight in her chest. Patient denies any diaphoretic episodes, chills, nausea or vomiting. She states that she's been having a low-grade temp at home in which she's been taking acetaminophen. This patient has a complicated history of recurrent episodes of acute hypoxic respiratory failure and development of diffuse breath and pulmonary infiltrates. Knowing that during an earlier hospitalization of 03/22/2016 the patient developed diffuse groundglass bilateral pulmonary infiltrates on the CAT scan and her chest x-ray was showing diffuse reticular nodular pulmonary infiltration that looked to be typical of an acute lung injury/ARDS pattern. During the course of her treatment the patient went into acute hypoxic respiratory failure and one point she went on 100% nonrebreather facemask and she was very close to being intubated. During the same hospitalization the patient had a bronchoscopy and all of the microbial cultures came back negative. This is not a single event and the patient has had similar events in the past and she has been intubated at least on 3 different occasions. The overall clinical history remains not clear to me. The patient has been to various hospitals including [facility]. At one point she was diagnosed having sarcoidosis and the diagnosis established at [facility] based on the bronchoscopy and transbronchial biopsy and the patient was treated with systemic steroids for almost a year. She subsequently quit taking the steroids as she gained significant amount of weight. At this point in time, she does not have any extra pulmonary manifestations of sarcoidosis. No liver function abnormalities. No hypercalcemia. No nephrolithiasis. No skin changes. In addition, the most recent CAT scan of the chest shows only small mediastinal lymphadenopathy. However, the patient has responded nicely to systemic steroids. In fact she responded to IV Solu- Medrol and she was discharged home on a prednisone burst taper and her symptoms recurred once the prednisone was tapered down to 20 mg by mouth daily. Her most recent chest x-ray shows infiltration of the lungs bilaterally right more than left and this is obviously new findings compared to the previous x-ray of the one done on 03/29/2016. She is smoking. No ongoing exposure to respiratory irritants or any other pneumo toxic agents. Her ANAs negative. Her rheumatoid factor is negative. Anti-CCP antibodies are negative. Serum immunoglobulin levels are within normal with some modest elevation of the baseline IgE level in the 270 range. Based on hypersensitivity panel was done and the patient was found to have some exposure to molds. This does not establish a true diagnosis of hypersensitivity pneumonia and these are nonspecific findings. On 04/16/2016 the patient is being seen in follow-up. During this current hospital stay the patient was covered with systemic steroids and she was placed on empiric antibiotic coverage with IV Zosyn. At one point I decided to bronchoscope this patient try to get some transplant biopsies didn't establish a tissue diagnosis. Nevertheless it was not successful and the patient had significant desaturations at a time of the procedure and I was unable to perform any biopsies of the lungs. I was able to obtain a bronchioloalveolar lavage and the cultures came back again negative. The patient improved. Chest x-ray seems better although there is some residual interstitial prominence bilaterally which probably is related to smoking-related interstitial lung disease. No fever. No chills. She is less short of breath. No nausea or vomiting. She is ambulating pH is committed for smoking cessation. Her Gume level was normal. Her p-ANCA and c-ANCA levels were negative. The rest of the connective tissue disease workup was also negative. Reevaluated on 04/17/2016, patient is doing well, I plan to switch her to oral antibiotics in the form of Augmentin, and discharge the patient home today, patient is to remain on prednisone at 20 mg daily, and follow-up with Dr. Hicks Objective - Vital Signs Vital signs: Vital Signs Temp 96.2 F L 04/17/16 07:00 Pulse 64 04/17/16 11:10 Resp 18 04/17/16 07:00 BP 134/79 04/17/16 07:00 Pulse Ox 97 04/17/16 07:17 Intake & Output 04/16/16 04/17/16 04/17/16 18:59 06:59 18:59 Intake Total 480 Balance 480 Weight 102 kg Intake: Oral 480 Other: Voiding Method Toilet Toilet Toilet # Voids 3 1 3 - Exam Physical Exam HEENT:[Neck is supple.] [No neck masses.] [No thyromegaly.] [No JVD.] Chest: [Clear throughout, no crackles, no rhonchi, no wheezes.] Cardiac Exam: [Normal S1 and S2, no S3 gallop, no murmur.] Abdomen: [Soft, nontender, no megaly, no rebound, no guarding, normal bowel sounds.] Extremities: [No clubbing, no edema, no cyanosis.] Neurological Exam: [No focal neurologic deficit.] - Labs CBC & Chem 7: 04/14/16 05:19 04/14/16 05:19 Labs: Abnormal Lab Results - Last 24 Hours (Table) 04/16/16 04/16/16 04/17/16 Range/Units 17:18 21:25 06:00 PT 25.1 H (9.0-12.0) sec POC Glucose (mg/dL) 169 H 174 H (75-99) mg/dL 04/17/16 04/17/16 Range/Units 07:38 12:31 PT (9.0-12.0) sec POC Glucose (mg/dL) 126 H 128 H (75-99) mg/dL Assessment and Plan Plan: 1 acute hypoxic respiratory failure with recurrent pulmonary infiltrate pulmonary infiltration, right more than left. The exact nature of this recurrent pulmonary infiltration is not clear to me. The patient during an earlier hospitalization had a bronchoscopy and the bronchioloalveolar lavage and essentially the microbial analysis was negative for any bacterial, viral, mycobacterial or parasitic infection. Repeat bronchoscopy and the bronchioloalveolar lavage was done during this current hospital physician was also negative for microbial growth. Suspect a smoking-related interstitial lung disease. We'll put is also another possibility. The patient however has clinically improved. 2 previous history of DVT and pulmonary embolism 3 obesity 4 smoking 5 secondary polycythemia 6 history of viral meningitis from October 2014 7 bipolar disorder 8 degenerative disc disease 9 coronary artery disease with previous myocardial infarction \ 10 multiple bouts of acute hypoxic history failure with ventilator dependence 11 previous history of MRSA pneumonia Recommendation: Switch patient to oral antibiotics, keep on prednisone 20 mg daily, discharge the patient home on follow-up with Dr. Hicks in one week. Time with Patient: Less than 30
--- NOTE | 2016-04-17 20:05 | CONS ---
DATE OF CONSULTATION: 04/14/2016 REASON FOR CONSULTATION: Left neck swelling. HISTORY OF PRESENT ILLNESS: The patient is a pleasant 45-year-old female who was originally admitted with shortness of breath and subsequently was seen by the pulmonary service. She underwent a bronchoscopy with washings which apparently had to be aborted because of problems. The procedure was done on 04/13/2016. The patient stated that later that night, and in fact early that morning between 2 and 3 a.m. of the next day, she developed significant swelling and pain in the left side of her neck. She states that the pain actually awoke her out of her sleep. Her physician subsequently placed her on intravenous antibiotics and Solu-Medrol steroids. The patient states that the symptoms have not gotten significantly better. She denies any shortness of breath at this time and also denies any difficulty swallowing. She does smoke several cigarettes per day and was advised by me to stop smoking for obvious health reasons. In addition to this, the patient has a diagnosis of sarcoidosis. She also stated that the pain in the left side of the neck was referred to her left ear. Past medical history reveals the patient has MULTIPLE ALLERGIES to: 1. OPIOIDS. 2. IODINE. 3. MORPHINE. 4. VANCOMYCIN. Her current medications include: 1. Prednisone. 2. Lamictal. 3. Coumadin. 4. Lyrica. 5. Zocor. 6. Prilosec. 7. Singulair. 8. Remeron. 9. Lasix. 10. Lopressor. 11. Robaxin. 12. Lovenox. 13. Symbicort. 14. Ventolin. REVIEW OF SYSTEMS: CARDIOVASCULAR: Positive for hypertension. RESPIRATORY: Positive for asthma. GASTROINTESTINAL: Positive for GERD. METABOLIC/ENDOCRINE: Positive for hypercholesterolemia and sarcoidosis. Remainder of the review of systems is essentially unremarkable. PHYSICAL EXAMINATION: This patient is a 45-year-old female who is alert and cooperative. HEENT EXAMINATION: Patient is normocephalic. Tympanic membranes are normal. Middle ear spaces are free of any fluid or infection. Pupils are equal, round and reactive to light and accommodation. Extraocular movements are within normal limits. Intranasal examination reveals moderate septal deviation with compensatory hypertrophy of inferior turbinates. Examination of the oropharynx is unremarkable. Palpation of the neck with attention to the left neck reveals significant moderate to severe tenderness with moderate swelling of the left angle of the mandible. With deeper palpation, including bimanual palpation with my index finger on the floor of the mouth, I am not able to detect any discrete mass, but I suspect there is inflamed lymphadenopathy in this area. The remainder of the head and neck examination is essentially unremarkable. CHEST/CARDIOVASCULAR: Both lung diana at this time are clear to percussion and auscultation. Patient is in regular sinus rhythm. S1, S2 are present without any murmurs. Remainder of physical exam was not performed. IMPRESSION: Suspect left cervical lymphadenitis, etiology? I do not suspect the patient's symptoms are related to her bronchoscopy but may in fact be related to her sarcoidosis. PLAN: At this time I would like to change her steroids to dexamethasone in place of the Solu-Medrol because dexamethasone has more anti-inflammatory properties compared to Solu-Medrol or even prednisone. We will place her on a regimen of 10 mg q.6 hours x2 doses, followed by 5 mg IV q.6 hours x2 doses, and then resume her Solu-Medrol. In addition to this, she is scheduled to have a CT scan performed later this evening. I will review this tomorrow, 04/15/2016. At this point I do not see any need for any type of surgical intervention from an ENT standpoint.
--- NOTE | 2016-04-17 20:05 | PN ---
DATE OF SERVICE: 04/16/2015. SUBJECTIVE: The patient is afebrile, vital signs are stable. The patient states that there is very little discomfort in the left side of the neck at this time. OBJECTIVE: HEENT: Attention to the left side of the neck with very deep palpation of the neck elicits no symptoms of pain or discomfort from the patient. ASSESSMENT: Resolving/resolved left neck pain/left cervical adenitis. PLAN: From an ENT standpoint this patient can be discharged at any time that the primary service feels that it is warranted. I will not need to see the patient on follow-up in my office. I want to take this opportunity to thank you for allowing me to participate in the care of your patient. If I can be of any further assistance, please feel free to call my office.
--- NOTE | 2016-04-17 20:08 | PN ---
DATE OF SERVICE: 04/15/2016 SUBJECTIVE: Patient is alert and vital signs are stable. The patient states that the discomfort in the left angle of the mandible has significantly decreased. A CT scan was performed and it was negative for any discrete masses or significant lymphadenopathy. OBJECTIVE: Examination of the left neck with deep palpation revealed the patient is significantly less tender than she was yesterday. That is to say, I am able to deeply palpate the left side of the neck with less discomfort to the patient compared to yesterday. In addition to this, the previously noted swelling has markedly decreased also. The remainder of the head and neck exam is unchanged since her last examination. ASSESSMENT: Left neck pain; suspect resolving left cervical lymphadenitis. PLAN: The patient will complete her final doses of dexamethasone and resume her Solu-Medrol today. I will continue to follow the patient with you and will examine her again tomorrow on 04/16/2016.
== END 2016-04-17 14:24 | disposition home health service (06) | DRG 204 ==
LOC: EC 13:42 → 4MS4W 16:52
PROVIDERS: ADMIT Internal Medicine; ATTEND Internal Medicine
PROC: 0B958ZX Drainage of Right Middle Lobe Bronchus, Via Natural or Artificial Opening Endoscopic, Diagnostic (ICD-10-PCS; principal; 2016-04-13 07:30)
PROC: 02HV33Z Insertion of Infusion Device into Superior Vena Cava, Percutaneous Approach (ICD-10-PCS; 2016-04-13 11:00)
PROC: B548ZZA Ultrasonography of Superior Vena Cava, Guidance (ICD-10-PCS; 2016-04-13 11:00)
DX: J80 Acute respiratory distress syndrome (principal); J18.0 Bronchopneumonia, unspecified organism; J84.9 Interstitial pulmonary disease, unspecified; I11.0 Hypertensive heart disease with heart failure; I50.9 Heart failure, unspecified; J44.0 Chronic obstructive pulmonary disease with (acute) lower respiratory infection; D75.1 Secondary polycythemia; E66.01 Morbid (severe) obesity due to excess calories; J39.8 Other specified diseases of upper respiratory tract; Z68.36 Body mass index [BMI] 36.0-36.9, adult; D86.0 Sarcoidosis of lung; G47.33 Obstructive sleep apnea (adult) (pediatric); E78.5 Hyperlipidemia, unspecified; E78.00 Pure hypercholesterolemia, unspecified; K21.9 Gastro-esophageal reflux disease without esophagitis; M79.7 Fibromyalgia; F31.9 Bipolar disorder, unspecified; F17.210 Nicotine dependence, cigarettes, uncomplicated; J34.2 Deviated nasal septum; J34.3 Hypertrophy of nasal turbinates; I25.10 Atherosclerotic heart disease of native coronary artery without angina pectoris; R59.0 Localized enlarged lymph nodes; F41.9 Anxiety disorder, unspecified; I25.2 Old myocardial infarction; Z86.61 Personal history of infections of the central nervous system; Z86.711 Personal history of pulmonary embolism; Z87.01 Personal history of pneumonia (recurrent); Z86.718 Personal history of other venous thrombosis and embolism; Z86.14 Personal history of Methicillin resistant Staphylococcus aureus infection; Z90.49 Acquired absence of other specified parts of digestive tract; Z79.01 Long term (current) use of anticoagulants; Z79.51 Long term (current) use of inhaled steroids; Z79.52 Long term (current) use of systemic steroids; Z79.899 Other long term (current) drug therapy
CPT/HCPCS: 31624; 36415; 36569; 70491; 71020; 76937; 77001; 80048; 80053; 82164; 82550; 82553; 83036; 83735; 83880; 84484; 85025; 85610; 85652; 85730; 86255; 87070; 87205; 88108; 88305; 93005; 94640; 94760; 96365; 96366; 99285

== ENCOUNTER 2016-04-19 01:00 | Emergency (ER) | payer OTHER ==
[2016-04-19] MEDS ORDERED: ACETAMINOPHEN IV (For NPO) 1,000 MG in SALINE 1 100ML.BAG IVPB STA (01:39)
--- NOTE | 2016-04-19 01:40 | ED ---
General Adult HPI - General Chief complaint: Chest Pain Stated complaint: SOB Time Seen by Provider: 04/19/16 01:26 Source: patient, RN notes reviewed Mode of arrival: ambulatory Limitations: no limitations - History of Present Illness Initial comments: Patient is pleasant 45-year-old female presenting to the emergency department complaining of right-sided chest discomfort. Patient has been dealing with pneumonia. Patient was discharged from the hospital for 9 days then readmitted. Patient was just discharged yesterday. Patient complains of discomfort under the right breast/lateral ribs. Patient has been coughing. Discomfort increases with movement and cough. Patient requests pain medication. Patient has been diagnosed with pleurisy with similar problems previously. - Related Data Home Medications Medication Instructions Recorded Confirmed Cetirizine HCl [Zyrtec] 10 mg PO DAILY PRN 07/16/14 04/19/16 Ergocalciferol [Vitamin D2 50,000 units PO TH 07/16/14 04/19/16 (DRISDOL)] Omeprazole [PriLOSEC] 20 mg PO AC-BID 07/16/14 04/19/16 Budesonide-Formot 160-4.5 Mcg 2 puff INHALATION RT-BID 08/23/15 04/19/16 [Symbicort 160-4.5 Mcg Inhaler] Enoxaparin [Lovenox] 100 mg SQ DAILY 02/20/16 04/19/16 lamoTRIgine [LaMICtal] 200 mg PO DAILY 03/22/16 04/19/16 Furosemide [Lasix] 20 mg PO DAILY 03/30/16 04/19/16 Nystatin 100,000 Unit/ml Susp 400,000 units PO QID 04/10/16 04/19/16 [Mycostatin Oral Susp] Potassium Chloride [Klor-Con 20] 20 meq PO DAILY 04/10/16 04/19/16 Pregabalin [Lyrica] 150 mg PO TID 04/10/16 04/19/16 predniSONE See Taper PO DAILY 04/10/16 04/19/16 Previous Rx's Medication Instructions Recorded Albuterol Inhaler [Ventolin Hfa 2 puff INHALATION RT-Q6H PRN #1 08/20/15 Inhaler] puff FLUoxetine HCL [PROzac] 20 mg PO DAILY #30 capsule 08/20/15 Ipratropium-Albuterol Nebulize 3 ml INHALATION RT-Q4H PRN #180 neb 08/20/15 [Duoneb 0.5 mg-3 mg/3 ml Soln] Methocarbamol [Robaxin] 750 mg PO QID PRN #40 tab 08/20/15 Metoprolol Tartrate [Lopressor] 50 mg PO BID #60 tab 08/20/15 Mirtazapine [Remeron] 30 mg PO HS #30 tablet 08/20/15 Montelukast [Singulair] 10 mg PO HS #30 tab 08/20/15 Simvastatin [Zocor] 10 mg PO HS #30 tab 08/20/15 guaiFENesin/CODEINE PHOSPHATE 5 ml PO Q6HR PRN #80 ml 02/17/16 ALPRAZolam [Xanax] 0.5 mg PO QID PRN #20 tab 04/17/16 Amoxic-Pot Clav 875-125Mg 1 tab PO Q12HR #14 tablet 04/17/16 [Augmentin 875-125] HYDROcodone/APAP 5-325MG [[place] 1 each PO Q6H PRN #20 tab 04/17/16 5-325] Promethaz-Cod 6.25-10 mg/5 ml 1 tsp PO Q4HR PRN #8 oz 04/17/16 [Phenergan with Codeine] Warfarin Sodium [Coumadin] 5 mg PO DAILY #7 tablet 04/17/16 Warfarin [Coumadin] 3 mg PO DAILY #7 tab 04/17/16 predniSONE 20 mg PO DIRECTED #190 tab 04/17/16 Allergies Allergy/AdvReac Type Severity Reaction Status Date / Time ketorolac tromethamine Allergy Severe Anaphylaxis Verified 04/10/16 13:47 [From Toradol] Opioids - Morphine Analogues Allergy Mild Itching Verified 04/10/16 13:47 rivaroxaban [From Xarelto] Allergy Rash/Hives Verified 04/10/16 13:47 sumatriptan [From Imitrex] Allergy Anaphylaxis Verified 04/10/16 13:47 sumatriptan succinate Allergy Anaphylaxis Verified 04/10/16 13:47 [From Imitrex] morphine AdvReac Severe Itching Verified 04/10/16 13:47 iodine AdvReac Intermediate Itching Verified 04/10/16 13:47 vancomycin AdvReac Itching Verified 04/10/16 13:47 Rich wipes AdvReac Severe Rash/Hives Uncoded 04/10/16 13:47 Review of Systems ROS Statement: Those systems with pertinent positive or pertinent negative responses have been documented in the HPI. ROS Other: All systems not noted in ROS Statement are negative. Constitutional: Denies: fever Eyes: Denies: eye pain ENT: Denies: ear pain Respiratory: Reports: cough, dyspnea Cardiovascular: Reports: chest pain Endocrine: Denies: fatigue Gastrointestinal: Denies: abdominal pain Genitourinary: Denies: dysuria Musculoskeletal: Denies: back pain Skin: Denies: rash Neurological: Denies: weakness Past Medical History Past Medical History: Blood Disorder, Heart Failure, Deep Vein Thrombosis (DVT) , Hyperlipidemia, Hypertension, Myocardial Infarction (AL), Musculoskeletal Disorder, Pulmonary Embolus (PE) Additional Past Medical History / Comment(s): Sarcoidosis diagnosed in 2015 following a bronchoscopy and lung biopsy done at [facility] and she was started on predniosone and she took the therapy for almost 1 year, polycythemia, overweight , bilateral PE (2011, 2015), bilateral DVTs, fibromyalgia, bipolar disorder, degenerative disk disorder, coronary artery disease along with previous history of a AL and ventilator dependent respiratory failure with MRSA pneumonia for which the patient was hospitalized [facility] in 2012. Viral meningitis in October 2014. Last Myocardial Infarction Date:: February 15, 2013 History of Any Multi-Drug Resistant Organisms: MRSA Date of last positivie culture/infection: 2013 MDRO Source:: Lungs Past Surgical History: Section, Cholecystectomy, Heart Catheterization , Hernia Repair, Orthopedic Surgery Additional Past Surgical History / Comment(s): Lt ankle surgery,BRONCH Past Anesthesia/Blood Transfusion Reactions: No Reported Reaction Past Psychological History: Anxiety, Bipolar, Depression Additional Psychological History / Comment(s): pt. states she is on medication for depression and feels well maintained. Smoking Status: Former smoker Past Alcohol Use History: None Reported Additional Past Alcohol Use History / Comment(s): pt states started smoking in 1988 and quit 04-02-16 had been smoking 1/2 ppd Past Drug Use History: None Reported - Past Family History Father Family Medical History: Blood Disorder, Deep Vein Thrombosis (DVT) Additional Family Medical History / Comment(s): polycythemia Mother Family Medical History: Musculoskeletal Disorder Sister(s) Family Medical History: No Reported History Brother(s) Family Medical History: No Reported History Son(s) Family Medical History: No Reported History Daughter(s) Family Medical History: No Reported History General Exam Limitations: no limitations General appearance: alert, in no apparent distress Head exam: Present: atraumatic Eye exam: Present: normal appearance, PERRL ENT exam: Present: normal oropharynx Neck exam: Present: normal inspection Respiratory exam: Present: normal lung sounds bilaterally, chest wall tenderness (Right lateral). Absent: respiratory distress Cardiovascular Exam: Present: regular rate, normal rhythm GI/Abdominal exam: Present: soft. Absent: tenderness Extremities exam: Present: normal inspection. Absent: pedal edema, calf tenderness Neurological exam: Present: alert Psychiatric exam: Present: normal affect, normal mood Skin exam: Absent: rash Course Vital Signs 04/19/16 04/19/16 04/19/16 01:05 02:19 02:25 Temperature 97.4 F L Pulse Rate 97 84 84 Respiratory 20 Rate Blood Pressure 127/82 O2 Sat by Pulse 97 Oximetry 04/19/16 04/19/16 02:54 03:52 Temperature Pulse Rate 90 96 Respiratory 22 22 Rate Blood Pressure 97/68 96/54 O2 Sat by Pulse 97 97 Oximetry EKG Findings - EKG Comments: EKG Findings:: Normal sinus rhythm 91. Normal intervals. Normal axis. Normal QRS. Normal ST-T. Medical Decision Making - Medical Decision Making Patient has been requesting Dilaudid multiple times. Patient is informed I'm not comfortable giving her further narcotic pain medication. Previous visits reviewed. Patient requests pain medication for home as well however had earlier stated she takes [place] regularly at home. Patient is advised not to prescribe anything stronger than [place]. Patient is in no distress. Patient is updated on results and recommended to call her primary care physician in the morning. - Lab Data Result diagrams: 04/19/16 01:35 04/19/16 01:35 Lab Results 04/19/16 04/19/16 04/19/16 Range/Units 01:35 01:35 01:35 WBC 16.8 H (3.8-10.6) k/uL RBC 4.82 (3.80-5.40) m/uL Hgb 14.4 (11.4-16.0) gm/dL Hct 44.2 (34.0-46.0) % MCV 91.6 (80.0-100.0) fL MCH 29.9 (25.0-35.0) pg MCHC 32.6 (31.0-37.0) g/dL RDW 13.4 (11.5-15.5) % Plt Count 309 (150-450) k/uL Neutrophils % 54 % Lymphocytes % 34 % Monocytes % 8 % Eosinophils % 2 % Basophils % 1 % Neutrophils # 9.1 H (1.3-7.7) k/uL Lymphocytes # 5.6 H (1.0-4.8) k/uL Monocytes # 1.4 H (0-1.0) k/uL Eosinophils # 0.4 (0-0.7) k/uL Basophils # 0.1 (0-0.2) k/uL PT (9.0-12.0) sec INR (<1.1) APTT (22.0-30.0) sec D-Dimer (<0.60) mg/L FEU Sodium 139 (137-145) mmol/L Potassium 3.7 (3.5-5.1) mmol/L Chloride 101 (98-107) mmol/L Carbon Dioxide 27 (22-30) mmol/L Anion Gap 11 mmol/L BUN 25 H (7-17) mg/dL Creatinine 0.70 (0.52-1.04) mg/dL Est GFR (MDRD) Af Amer >60 (>60 ml/min/1.73 sqM) Est GFR (MDRD) Non-Af >60 (>60 ml/min/1.73 sqM) Glucose 105 H (74-99) mg/dL Plasma Lactic Acid Chuck 2.0 (0.7-2.0) mmol/L Calcium 9.1 (8.4-10.2) mg/dL Total Bilirubin 0.4 (0.2-1.3) mg/dL AST 34 (14-36) U/L ALT 66 H (9-52) U/L Alkaline Phosphatase 60 (38-126) U/L Total Creatine Kinase (30-135) U/L CK-MB (CK-2) (0.0-2.4) ng/mL CK-MB (CK-2) Rel Index Troponin I (0.000-0.034) ng/mL Total Protein 6.2 L (6.3-8.2) g/dL Albumin 3.6 (3.5-5.0) g/dL Urine Color Urine Appearance (Clear) Urine pH (5.0-8.0) Ur Specific Stanley (1.001-1.035) Urine Protein (Negative) Urine Glucose (UA) (Negative) Urine Ketones (Negative) Urine Blood (Negative) Urine Nitrate (Negative) Urine Bilirubin (Negative) Urine Urobilinogen (<2.0) mg/dL Ur Leukocyte Esterase (Negative) Urine RBC (0-5) /hpf Amorphous Sediment (None) /hpf Urine Bacteria (None) /hpf Urine Opiates Screen (NotDetected) Ur Oxycodone Screen (NotDetected) Urine Methadone Screen (NotDetected) Ur Propoxyphene Screen (NotDetected) Ur Barbiturates Screen (NotDetected) U Tricyclic Antidepress (NotDetected) Ur Phencyclidine Scrn (NotDetected) Ur Amphetamines Screen (NotDetected) U Methamphetamines Scrn (NotDetected) U Benzodiazepines Scrn (NotDetected) Urine Cocaine Screen (NotDetected) U Marijuana (THC) Screen (NotDetected) 04/19/16 04/19/16 04/19/16 Range/Units 01:35 01:35 01:35 WBC (3.8-10.6) k/uL RBC (3.80-5.40) m/uL Hgb (11.4-16.0) gm/dL Hct (34.0-46.0) % MCV (80.0-100.0) fL MCH (25.0-35.0) pg MCHC (31.0-37.0) g/dL RDW (11.5-15.5) % Plt Count (150-450) k/uL Neutrophils % % Lymphocytes % % Monocytes % % Eosinophils % % Basophils % % Neutrophils # (1.3-7.7) k/uL Lymphocytes # (1.0-4.8) k/uL Monocytes # (0-1.0) k/uL Eosinophils # (0-0.7) k/uL Basophils # (0-0.2) k/uL PT 24.2 H (9.0-12.0) sec INR 2.5 (<1.1) APTT 27.8 (22.0-30.0) sec D-Dimer 2.21 H (<0.60) mg/L FEU Sodium (137-145) mmol/L Potassium (3.5-5.1) mmol/L Chloride (98-107) mmol/L Carbon Dioxide (22-30) mmol/L Anion Gap mmol/L BUN (7-17) mg/dL Creatinine (0.52-1.04) mg/dL Est GFR (MDRD) Af Amer (>60 ml/min/1.73 sqM) Est GFR (MDRD) Non-Af (>60 ml/min/1.73 sqM) Glucose (74-99) mg/dL Plasma Lactic Acid Chuck (0.7-2.0) mmol/L Calcium (8.4-10.2) mg/dL Total Bilirubin (0.2-1.3) mg/dL AST (14-36) U/L ALT (9-52) U/L Alkaline Phosphatase (38-126) U/L Total Creatine Kinase 28 L (30-135) U/L CK-MB (CK-2) 0.5 (0.0-2.4) ng/mL CK-MB (CK-2) Rel Index 1.8 Troponin I <0.012 (0.000-0.034) ng/mL Total Protein (6.3-8.2) g/dL Albumin (3.5-5.0) g/dL Urine Color Yellow Urine Appearance Cloudy H (Clear) Urine pH 7.5 (5.0-8.0) Ur Specific Stanley 1.020 (1.001-1.035) Urine Protein Negative (Negative) Urine Glucose (UA) Negative (Negative) Urine Ketones Negative (Negative) Urine Blood Negative (Negative) Urine Nitrate Negative (Negative) Urine Bilirubin Negative (Negative) Urine Urobilinogen <2.0 (<2.0) mg/dL Ur Leukocyte Esterase Negative (Negative) Urine RBC 1 (0-5) /hpf Amorphous Sediment Rare H (None) /hpf Urine Bacteria Rare H (None) /hpf Urine Opiates Screen (NotDetected) Ur Oxycodone Screen (NotDetected) Urine Methadone Screen (NotDetected) Ur Propoxyphene Screen (NotDetected) Ur Barbiturates Screen (NotDetected) U Tricyclic Antidepress (NotDetected) Ur Phencyclidine Scrn (NotDetected) Ur Amphetamines Screen (NotDetected) U Methamphetamines Scrn (NotDetected) U Benzodiazepines Scrn (NotDetected) Urine Cocaine Screen (NotDetected) U Marijuana (THC) Screen (NotDetected) 04/19/16 Range/Units 01:35 WBC (3.8-10.6) k/uL RBC (3.80-5.40) m/uL Hgb (11.4-16.0) gm/dL Hct (34.0-46.0) % MCV (80.0-100.0) fL MCH (25.0-35.0) pg MCHC (31.0-37.0) g/dL RDW (11.5-15.5) % Plt Count (150-450) k/uL Neutrophils % % Lymphocytes % % Monocytes % % Eosinophils % % Basophils % % Neutrophils # (1.3-7.7) k/uL Lymphocytes # (1.0-4.8) k/uL Monocytes # (0-1.0) k/uL Eosinophils # (0-0.7) k/uL Basophils # (0-0.2) k/uL PT (9.0-12.0) sec INR (<1.1) APTT (22.0-30.0) sec D-Dimer (<0.60) mg/L FEU Sodium (137-145) mmol/L Potassium (3.5-5.1) mmol/L Chloride (98-107) mmol/L Carbon Dioxide (22-30) mmol/L Anion Gap mmol/L BUN (7-17) mg/dL Creatinine (0.52-1.04) mg/dL Est GFR (MDRD) Af Amer (>60 ml/min/1.73 sqM) Est GFR (MDRD) Non-Af (>60 ml/min/1.73 sqM) Glucose (74-99) mg/dL Plasma Lactic Acid Chuck (0.7-2.0) mmol/L Calcium (8.4-10.2) mg/dL Total Bilirubin (0.2-1.3) mg/dL AST (14-36) U/L ALT (9-52) U/L Alkaline Phosphatase (38-126) U/L Total Creatine Kinase (30-135) U/L CK-MB (CK-2) (0.0-2.4) ng/mL CK-MB (CK-2) Rel Index Troponin I (0.000-0.034) ng/mL Total Protein (6.3-8.2) g/dL Albumin (3.5-5.0) g/dL Urine Color Urine Appearance (Clear) Urine pH (5.0-8.0) Ur Specific [place] (1.001-1.035) Urine Protein (Negative) Urine Glucose (UA) (Negative) Urine Ketones (Negative) Urine Blood (Negative) Urine Nitrate (Negative) Urine Bilirubin (Negative) Urine Urobilinogen (<2.0) mg/dL Ur Leukocyte Esterase (Negative) Urine RBC (0-5) /hpf Amorphous Sediment (None) /hpf Urine Bacteria (None) /hpf Urine Opiates Screen Detected H (NotDetected) Ur Oxycodone Screen Not Detected (NotDetected) Urine Methadone Screen Not Detected (NotDetected) Ur Propoxyphene Screen Not Detected (NotDetected) Ur Barbiturates Screen Not Detected (NotDetected) U Tricyclic Antidepress Not Detected (NotDetected) Ur Phencyclidine Scrn Not Detected (NotDetected) Ur Amphetamines Screen Not Detected (NotDetected) U Methamphetamines Scrn Not Detected (NotDetected) U Benzodiazepines Scrn Detected H (NotDetected) Urine Cocaine Screen Not Detected (NotDetected) U Marijuana (THC) Screen Not Detected (NotDetected) - Radiology Data Radiology results: image reviewed (Two-view chest x-ray shows mild chronic congestion. Computed tomography scan of the chest shows no pulmonary embolism. Slightly limited peripheral branches. Possible edema versus interstitial lung changes. Emphysema both lungs.) Disposition Clinical Impression: Chest pain, pleuritic Disposition: HOME SELF-CARE Condition: Stable Instructions: Pleurisy (ED) Additional Instructions: Please follow-up with the primary care physician, call first thing in the morning. Return for fevers, difficulty breathing, change in pain or symptoms, worsening symptoms or other concerns. Referrals: Everardo Stanley MD [Primary Care Provider] - 1-2 days
[2016-04-19] MEDS ORDERED: IPRATROPIUM-ALBUTEROL 3 ML NEB INHALATION STA (01:51)
[2016-04-19 01:52] LABS: Basophils # (A) 0.1 k/uL (0-0.2); Basophils % (A) 1 %; CH 30.9; CHCM 33.9; Eosinophils # (A) 0.4 k/uL (0-0.7); Eosinophils % (A) 2 %; HCT 44.2 % (34.0-46.0); HDW 3.06; HGB 14.4 gm/dL (11.4-16.0); Luc % (Auto) 2; Lymphocytes # (A) 5.6 k/uL (1.0-4.8); Lymphocytes % (A) 34 %; MCH 29.9 pg (25.0-35.0); MCHC 32.6 g/dL (31.0-37.0); MCV 91.6 fL (80.0-100.0); Mean Platelet Volume 7.2; Monocytes # (A) 1.4 k/uL (0-1.0); Monocytes % (A) 8 %; Neutrophils # (A) 9.1 k/uL (1.3-7.7); Neutrophils % (A) 54 %; RBC 4.82 m/uL (3.80-5.40); RDW 13.4 % (11.5-15.5); WBC 16.8 k/uL (3.8-10.6); WBC (Perox) 16.59
[2016-04-19 02:02] LABS: ALT 66 U/L (9-52); AST 34 U/L (14-36); Alkaline Phosphatase 60 U/L (38-126); Anion Gap 11 mmol/L; Blood Urea Nitrogen 25 mg/dL (7-17); Calcium 9.1 mg/dL (8.4-10.2); Carbon Dioxide 27 mmol/L (22-30); Chloride 101 mmol/L (98-107); Glucose 105 mg/dL (74-99); Non-African American GFR(MDRD) >60 (>60 ml/min/1.73 sqM); Potassium 3.7 mmol/L (3.5-5.1); Sodium 139 mmol/L (137-145); Total Bilirubin 0.4 mg/dL (0.2-1.3); Total Protein 6.2 g/dL (6.3-8.2)
[2016-04-19 02:04] LABS: Amorphous Sediment,Urine Rare /hpf; Appearance,Urine Cloudy (Clear); Bacteria,Urine Rare /hpf; Bilirubin,Urine Negative (Negative); Glucose,Urine (UA) Negative (Negative); Ketones,Urine Negative (Negative); Leukocyte Esterase,Urine Negative (Negative); Nitrite,Urine Negative (Negative); PH, Urine 7.5 (5.0-8.0); Particle Count 7525; Protein,Urine Negative (Negative); RBC,Urine 1 /hpf (0-5); UA Billing (MACRO vs. MICRO) MICRO; Urobilinogen,Urine <2.0 mg/dL (<2.0)
[2016-04-19 02:07] LABS: INR 2.5 (<1.1); Partial Thromboplastin Time 27.8 sec (22.0-30.0); Prothrombin Time 24.2 sec (9.0-12.0)
[2016-04-19 02:11] LABS: Creatine Kinase 28 U/L (30-135)
[2016-04-19 02:24] LABS: Creatine Kinase MB 0.5 ng/mL (0.0-2.4); Troponin I <0.012 ng/mL (0.000-0.034)
[2016-04-19] MEDS ORDERED: diphenhydrAMINE 50 MG/ML 1 ML VIAL IVP STA (02:40)
[2016-04-19] MEDS ORDERED: FAMOTIDINE 20 MG/2 ML VIAL IV STA (02:40)
[2016-04-19] MEDS ORDERED: HYDROmorphone 1 MG/ML 1 ML SYRINGE IVP STA (02:40)
[2016-04-19] MEDS ORDERED: methylPREDNISolone SOD SUCCI 125 MG/2 ML VIAL IV STA (02:41)
[2016-04-19] MEDS ORDERED: RX INFO: IV CONTRAST WAS GIVEN 1 EACH MISC MISCELLANE PRN (02:41)
--- NOTE | 2016-04-19 02:59 | XR ---
EXAMINATION TYPE: XR chest 2V DATE OF EXAM: 04/19/2016 1:59 AM COMPARISON: 04/14/2016 HISTORY: History of pneumonia. TECHNIQUE: Frontal and lateral views of the chest are obtained. FINDINGS: No significant focal lung consolidation or pneumonia is noted. There is mild pulmonary vascular conge stion. No pneumothorax or pleural effusion is noted.. The cardiac silhouette size is within normal limits. The osseous structures are intact. IMPRESSION: 1. No focal pneumonia. 2. Mild pulmonary vascular congestion.
--- NOTE | 2016-04-19 03:49 | CT ---
EXAMINATION TYPE: CT angio chest DATE OF EXAM: 04/19/2016 3:06 AM COMPARISON: 02/16/2016 HISTORY: SOB, R/O PE CT DLP: 1092 mGycm Automated exposure control for dose reduction was used. CONTRAST: CTA scan of the thorax is performed with IV Contrast, patient injected with 90 mL of Omnipaque 350, p ulmonary embolism protocol. . FINDINGS: PULMONARY ARTERIES: No significant filling defects are noted in the visualized opacified main pulmona ry arteries and central branches to represent acute pulmonary embolism. There are multiple motion art ifacts in the images. There is somewhat poor evaluation of peripheral pulmonary arterial branches. LUNGS: Mild atelectasis and emphysematous changes are noted in both lung bases. Chronic interstitial lung changes or pulmonary edema suggested bilaterally. Somewhat nodular scarring is suggested in the right middle lobe of lung in the axial image 57 series 6. There is no pleural effusion or pneumothora x seen. The tracheobronchial tree is patent. MEDIASTINUM: The ascending aorta measures 2.7 cm in greatest AP diameter without significant aneurysm . There are no greater than 1 cm hilar or mediastinal lymph nodes. No pericardial effusion is seen. OTHER: No additional significant abnormality is seen. IMPRESSION: 1. NO DEFINITE EVIDENCE OF ACUTE PULMONARY EMBOLISM IN THE MAIN PULMONARY ARTERIES AND CENTRAL BRANCH ES. THERE IS SLIGHTLY LIMITED EVALUATION OF PERIPHERAL PULMONARY ARTERIAL BRANCHES. 2. POSSIBLE PULMONARY EDEMA OR CHRONIC INTERSTITIAL LUNG DISEASE CHANGES. 3. EMPHYSEMATOUS CHANGES IN BOTH LUNGS. MILD NODULAR SCARRING IN THE RIGHT MIDDLE LOBE OF LUNG.
[2016-04-19 04:11] VITALS: BP 101/60; PULSE 92; RESP 20; TEMP 98
== END 2016-04-19 04:10 | disposition home or self-care (01) ==
LOC: EC 01:00
DX: R07.81 Pleurodynia (principal); Z87.01 Personal history of pneumonia (recurrent); I11.0 Hypertensive heart disease with heart failure; I50.9 Heart failure, unspecified; J43.9 Emphysema, unspecified; M79.7 Fibromyalgia; I25.10 Atherosclerotic heart disease of native coronary artery without angina pectoris; E78.5 Hyperlipidemia, unspecified; D86.9 Sarcoidosis, unspecified; F41.9 Anxiety disorder, unspecified; F31.9 Bipolar disorder, unspecified; Z79.01 Long term (current) use of anticoagulants; Z79.51 Long term (current) use of inhaled steroids; Z79.899 Other long term (current) drug therapy; Z86.718 Personal history of other venous thrombosis and embolism; Z86.711 Personal history of pulmonary embolism; Z86.14 Personal history of Methicillin resistant Staphylococcus aureus infection; Z88.8 Allergy status to other drugs, medicaments and biological substances; Z88.5 Allergy status to narcotic agent; Z87.891 Personal history of nicotine dependence
CPT/HCPCS: 36415; 94640; 93005; 85379; 80053; 82550; 82553; 83605; 84484; 85025; 85610; 85730; 81001; 87040; 80306; 87086; 71020; 71275; 99285; 96365; 96375 ×4; J1200; J2930; Q9967; J1170; J0131

== ENCOUNTER 2016-05-01 15:34 | Observation (INO) | payer OTHER ==
[2016-05-01] MEDS ORDERED: SODIUM CHLORIDE 0.9% 1,000 ML IV STA (15:39)
[2016-05-01] MEDS ORDERED: IPRATROPIUM 0.5 MG/2.5 ML NEBU INHALATION STA (15:39)
[2016-05-01] MEDS ORDERED: NALOXONE 1 MG/ML 2 ML SYRINGE IVP PRN (15:39)
[2016-05-01] MEDS ORDERED: ALBUTEROL NEBULIZED 2.5 MG/3 ML INHALATION STA (15:39)
[2016-05-01] MEDS: NALOXONE 0.4 MG/ML 10 ML VIAL IVP STA ×2 (15:40→16:00)
--- NOTE | 2016-05-01 15:55 | ED ---
General Adult HPI - General Chief complaint: Altered Mental Status Stated complaint: UNRESPONSIVE Time Seen by Provider: 05/01/16 15:38 Source: EMS, RN notes reviewed, old records reviewed Mode of arrival: EMS - History of Present Illness Initial comments: This is a 45-year-old female the ER for evaluation. This patient presents to ER for evaluation of shortness of breath. Patient called EMS she was having told breathing at home. Upon EMS arrival patient was placed in breathing treatment and transferred to the hospital. During transfer patient became unresponsive, patient remains unresponsive, history otherwise obtained EMS and the patient's chart. - Related Data Home Medications Medication Instructions Recorded Confirmed Cetirizine HCl [Zyrtec] 10 mg PO DAILY PRN 07/16/14 05/01/16 Ergocalciferol [Vitamin D2 50,000 units PO TH 07/16/14 05/01/16 (DRISDOL)] Omeprazole [PriLOSEC] 20 mg PO AC-BID 07/16/14 05/01/16 Budesonide-Formot 160-4.5 Mcg 2 puff INHALATION RT-BID 08/23/15 05/01/16 [Symbicort 160-4.5 Mcg Inhaler] Enoxaparin [Lovenox] 100 mg SQ DAILY 02/20/16 05/01/16 lamoTRIgine [LaMICtal] 200 mg PO DAILY 03/22/16 05/01/16 Furosemide [Lasix] 20 mg PO DAILY 03/30/16 05/01/16 Nystatin 100,000 Unit/ml Susp 400,000 units PO QID 04/10/16 05/01/16 [Mycostatin Oral Susp] Potassium Chloride [Klor-Con 20] 20 meq PO DAILY 04/10/16 05/01/16 Pregabalin [Lyrica] 150 mg PO TID 04/10/16 05/01/16 HYDROcodone/APAP 5-325MG [[place] 1 tab PO Q6H PRN 05/01/16 05/01/16 5-325] Promethaz-Cod 6.25-10 mg/5 ml 5 ml PO Q4HR PRN 05/01/16 05/01/16 [Phenergan with Codeine] predniSONE 20 mg PO DAILY 05/01/16 05/01/16 Previous Rx's Medication Instructions Recorded Albuterol Inhaler [Ventolin Hfa 2 puff INHALATION RT-Q6H PRN #1 08/20/15 Inhaler] puff FLUoxetine HCL [PROzac] 20 mg PO DAILY #30 capsule 08/20/15 Ipratropium-Albuterol Nebulize 3 ml INHALATION RT-Q4H PRN #180 neb 08/20/15 [Duoneb 0.5 mg-3 mg/3 ml Soln] Methocarbamol [Robaxin] 750 mg PO QID PRN #40 tab 08/20/15 Metoprolol Tartrate [Lopressor] 50 mg PO BID #60 tab 08/20/15 Mirtazapine [Remeron] 30 mg PO HS #30 tablet 08/20/15 Montelukast [Singulair] 10 mg PO HS #30 tab 08/20/15 Simvastatin [Zocor] 10 mg PO HS #30 tab 08/20/15 guaiFENesin/CODEINE PHOSPHATE 5 ml PO Q6HR PRN #80 ml 02/17/16 ALPRAZolam [Xanax] 0.5 mg PO QID PRN #20 tab 04/17/16 Warfarin Sodium [Coumadin] 5 mg PO DAILY #7 tablet 04/17/16 Warfarin [Coumadin] 3 mg PO DAILY #7 tab 04/17/16 Allergies Allergy/AdvReac Type Severity Reaction Status Date / Time ketorolac tromethamine Allergy Severe Anaphylaxis Verified 04/10/16 13:47 [From Toradol] Opioids - Morphine Analogues Allergy Mild Itching Verified 04/10/16 13:47 rivaroxaban [From Xarelto] Allergy Rash/Hives Verified 04/10/16 13:47 sumatriptan [From Imitrex] Allergy Anaphylaxis Verified 04/10/16 13:47 sumatriptan succinate Allergy Anaphylaxis Verified 04/10/16 13:47 [From Imitrex] morphine AdvReac Severe Itching Verified 04/10/16 13:47 iodine AdvReac Intermediate Itching Verified 04/10/16 13:47 vancomycin AdvReac Itching Verified 04/10/16 13:47 Rich wipes AdvReac Severe Rash/Hives Uncoded 04/10/16 13:47 Review of Systems ROS Statement: Those systems with pertinent positive or pertinent negative responses have been documented in the HPI. ROS Other: All systems not noted in ROS Statement are negative. Past Medical History Past Medical History: Blood Disorder, Heart Failure, Deep Vein Thrombosis (DVT) , Hyperlipidemia, Hypertension, Myocardial Infarction (MS), Musculoskeletal Disorder, Pulmonary Embolus (PE) Additional Past Medical History / Comment(s): Sarcoidosis diagnosed in 2015 following a bronchoscopy and lung biopsy done at [facility] and she was started on predniosone and she took the therapy for almost 1 year, polycythemia, overweight , bilateral PE (2011, 2015), bilateral DVTs, fibromyalgia, bipolar disorder, degenerative disk disorder, coronary artery disease along with previous history of a [place] and ventilator dependent respiratory failure with MRSA pneumonia for which the patient was hospitalized [facility] in 2012. Viral meningitis in October 2014. Last Myocardial Infarction Date:: February 15, 2013 History of Any Multi-Drug Resistant Organisms: MRSA Date of last positivie culture/infection: 2013 MDRO Source:: Lungs Past Surgical History: Section, Cholecystectomy, Heart Catheterization , Hernia Repair, Orthopedic Surgery Additional Past Surgical History / Comment(s): Lt ankle surgery,BRONCH Past Anesthesia/Blood Transfusion Reactions: No Reported Reaction Past Psychological History: Anxiety, Bipolar, Depression Additional Psychological History / Comment(s): pt. states she is on medication for depression and feels well maintained. Smoking Status: Former smoker Past Alcohol Use History: None Reported Additional Past Alcohol Use History / Comment(s): pt states started smoking in 1988 and quit 04-02-16 had been smoking 1/2 ppd Past Drug Use History: None Reported - Past Family History Father Family Medical History: Blood Disorder, Deep Vein Thrombosis (DVT) Additional Family Medical History / Comment(s): polycythemia Mother Family Medical History: Musculoskeletal Disorder Sister(s) Family Medical History: No Reported History Brother(s) Family Medical History: No Reported History Son(s) Family Medical History: No Reported History Daughter(s) Family Medical History: No Reported History General Exam Limitations: altered mental status, physical limitation General appearance: alert, anxious, obtunded, in distress, obese Head exam: Present: atraumatic, normocephalic, normal inspection Eye exam: Present: normal appearance, PERRL, EOMI. Absent: scleral icterus, conjunctival injection, periorbital swelling ENT exam: Present: normal exam, mucous membranes moist Neck exam: Present: normal inspection. Absent: tenderness, meningismus, lymphadenopathy Respiratory exam: Present: normal lung sounds bilaterally. Absent: respiratory distress, wheezes, rales, rhonchi, stridor Cardiovascular Exam: Present: regular rate, normal rhythm, normal heart sounds. Absent: systolic murmur, diastolic murmur, rubs, gallop, clicks GI/Abdominal exam: Present: soft, normal bowel sounds. Absent: distended, tenderness, guarding, rebound, rigid Extremities exam: Present: normal inspection, full ROM, normal capillary refill. Absent: tenderness, pedal edema, joint swelling, calf tenderness Back exam: Present: normal inspection Neurological exam: Present: alert, oriented X3, CN II-XII intact Psychiatric exam: Present: normal affect, normal mood Skin exam: Present: warm, dry, intact, normal color. Absent: rash Course Vital Signs 05/01/16 05/01/16 15:38 16:10 Temperature 97 F L Pulse Rate 79 80 Respiratory 10 L 20 Rate Blood Pressure 109/56 104/84 O2 Sat by Pulse 98 94 L Oximetry EKG Findings - EKG Comments: EKG Findings:: EKG shows normal sinus rhythm rate of 82, NH 136, QRS 68, QTC 436 Medical Decision Making - Medical Decision Making 45 female to the ER for altered mental status and also shortness of breath. Patient's completely responsive at this time normal blood gas chest x-ray shows positive motor vascular congestion will give Lasix and diuresis, patient be admitted for continued breathing treatments. - Lab Data Result diagrams: 05/01/16 15:35 05/01/16 15:35 Lab Results 05/01/16 05/01/16 05/01/16 Range/Units 15:35 15:35 15:35 WBC 6.9 (3.8-10.6) k/uL RBC 4.76 (3.80-5.40) m/uL Hgb 14.5 (11.4-16.0) gm/dL Hct 42.6 (34.0-46.0) % MCV 89.5 (80.0-100.0) fL MCH 30.4 (25.0-35.0) pg MCHC 34.0 (31.0-37.0) g/dL RDW 14.1 (11.5-15.5) % Plt Count 190 (150-450) k/uL Neutrophils % 51 % Lymphocytes % 38 % Monocytes % 7 % Eosinophils % 2 % Basophils % 1 % Neutrophils # 3.5 (1.3-7.7) k/uL Lymphocytes # 2.6 (1.0-4.8) k/uL Monocytes # 0.5 (0-1.0) k/uL Eosinophils # 0.1 (0-0.7) k/uL Basophils # 0.1 (0-0.2) k/uL PT (9.0-12.0) sec INR (<1.1) APTT (22.0-30.0) sec D-Dimer (<0.60) mg/L FEU Sodium 142 (137-145) mmol/L Potassium 3.5 (3.5-5.1) mmol/L Chloride 107 (98-107) mmol/L Carbon Dioxide 26 (22-30) mmol/L Anion Gap 9 mmol/L BUN 9 (7-17) mg/dL Creatinine 0.82 (0.52-1.04) mg/dL Est GFR (MDRD) Af Amer >60 (>60 ml/min/1.73 sqM) Est GFR (MDRD) Non-Af >60 (>60 ml/min/1.73 sqM) Glucose 78 (74-99) mg/dL Calcium 8.6 (8.4-10.2) mg/dL Magnesium 2.0 (1.6-2.3) mg/dL Total Bilirubin 0.5 (0.2-1.3) mg/dL AST 20 (14-36) U/L ALT 37 (9-52) U/L Alkaline Phosphatase 66 (38-126) U/L Total Creatine Kinase 30 (30-135) U/L NT-Pro-B Natriuret Pep pg/mL Total Protein 7.0 (6.3-8.2) g/dL Albumin 3.9 (3.5-5.0) g/dL Urine Color Urine Appearance (Clear) Urine pH (5.0-8.0) Ur Specific [place] (1.001-1.035) Urine Protein (Negative) Urine Glucose (UA) (Negative) Urine Ketones (Negative) Urine Blood (Negative) Urine Nitrate (Negative) Urine Bilirubin (Negative) Urine Urobilinogen (<2.0) mg/dL Ur Leukocyte Esterase (Negative) Urine Opiates Screen (NotDetected) Ur Oxycodone Screen (NotDetected) Urine Methadone Screen (NotDetected) Ur Propoxyphene Screen (NotDetected) Ur Barbiturates Screen (NotDetected) U Tricyclic Antidepress (NotDetected) Ur Phencyclidine Scrn (NotDetected) Ur Amphetamines Screen (NotDetected) U Methamphetamines Scrn (NotDetected) U Benzodiazepines Scrn (NotDetected) Urine Cocaine Screen (NotDetected) U Marijuana (THC) Screen (NotDetected) 05/01/16 05/01/16 05/01/16 Range/Units 15:35 15:35 15:35 WBC (3.8-10.6) k/uL RBC (3.80-5.40) m/uL Hgb (11.4-16.0) gm/dL Hct (34.0-46.0) % MCV (80.0-100.0) fL MCH (25.0-35.0) pg MCHC (31.0-37.0) g/dL RDW (11.5-15.5) % Plt Count (150-450) k/uL Neutrophils % % Lymphocytes % % Monocytes % % Eosinophils % % Basophils % % Neutrophils # (1.3-7.7) k/uL Lymphocytes # (1.0-4.8) k/uL Monocytes # (0-1.0) k/uL Eosinophils # (0-0.7) k/uL Basophils # (0-0.2) k/uL PT 10.6 (9.0-12.0) sec INR 1.0 (<1.1) APTT 24.0 (22.0-30.0) sec D-Dimer 1.74 H (<0.60) mg/L FEU Sodium (137-145) mmol/L Potassium (3.5-5.1) mmol/L Chloride (98-107) mmol/L Carbon Dioxide (22-30) mmol/L Anion Gap mmol/L BUN (7-17) mg/dL Creatinine (0.52-1.04) mg/dL Est GFR (MDRD) Af Amer (>60 ml/min/1.73 sqM) Est GFR (MDRD) Non-Af (>60 ml/min/1.73 sqM) Glucose (74-99) mg/dL Calcium (8.4-10.2) mg/dL Magnesium (1.6-2.3) mg/dL Total Bilirubin (0.2-1.3) mg/dL AST (14-36) U/L ALT (9-52) U/L Alkaline Phosphatase (38-126) U/L Total Creatine Kinase (30-135) U/L NT-Pro-B Natriuret Pep 180 pg/mL Total Protein (6.3-8.2) g/dL Albumin (3.5-5.0) g/dL Urine Color Colorless Urine Appearance Clear (Clear) Urine pH 5.0 (5.0-8.0) Ur Specific [place] 1.001 (1.001-1.035) Urine Protein Negative (Negative) Urine Glucose (UA) Negative (Negative) Urine Ketones Negative (Negative) Urine Blood Negative (Negative) Urine Nitrate Negative (Negative) Urine Bilirubin Negative (Negative) Urine Urobilinogen <2.0 (<2.0) mg/dL Ur Leukocyte Esterase Negative (Negative) Urine Opiates Screen Detected H (NotDetected) Ur Oxycodone Screen Detected H (NotDetected) Urine Methadone Screen Not Detected (NotDetected) Ur Propoxyphene Screen Not Detected (NotDetected) Ur Barbiturates Screen Not Detected (NotDetected) U Tricyclic Antidepress Not Detected (NotDetected) Ur Phencyclidine Scrn Not Detected (NotDetected) Ur Amphetamines Screen Not Detected (NotDetected) U Methamphetamines Scrn Not Detected (NotDetected) U Benzodiazepines Scrn Detected H (NotDetected) Urine Cocaine Screen Not Detected (NotDetected) U Marijuana (THC) Screen Not Detected (NotDetected) - Radiology Data Radiology results: report reviewed (Chest x-ray is positive for CHF), image reviewed Critical Care Time Critical Care Time: Yes Total Critical Care Time: 31 Disposition Clinical Impression: COPD (chronic obstructive pulmonary disease), Acute exacerbation of chronic bronchitis Dis[facility] Condition: Fair Referrals: Everardo Stanley MD [Primary Care Provider] - 1-2 days
[2016-05-01 15:59] LABS: Basophils # (A) 0.1 k/uL (0-0.2); Basophils % (A) 1 %; CH 30.9; CHCM 34.7; Eosinophils # (A) 0.1 k/uL (0-0.7); Eosinophils % (A) 2 %; HCT 42.6 % (34.0-46.0); HDW 3.18; HGB 14.5 gm/dL (11.4-16.0); Luc # (Auto) 0.19; Luc % (Auto) 3; Lymphocytes # (A) 2.6 k/uL (1.0-4.8); Lymphocytes % (A) 38 %; MCH 30.4 pg (25.0-35.0); MCV 89.5 fL (80.0-100.0); Mean Platelet Volume 7.6; Monocytes # (A) 0.5 k/uL (0-1.0); Monocytes % (A) 7 %; Neutrophils # (A) 3.5 k/uL (1.3-7.7); Neutrophils % (A) 51 %; RBC 4.76 m/uL (3.80-5.40); RDW 14.1 % (11.5-15.5); WBC 6.9 k/uL (3.8-10.6); WBC (Perox) 6.81
--- NOTE | 2016-05-01 16:03 | XR ---
EXAMINATION TYPE: XR chest 1V portable DATE OF EXAM: 05/01/2016 3:58 PM HISTORY: Shortness of breath. COMPARISON: 04/19/2016 TECHNIQUE: Single view of the chest is submitted. Lung volumes are diminished limiting evaluation. FINDINGS: Demonstrated are scattered senescent parenchymal change. There is no evidence for focal infiltrate. There is cardiomegaly with pulmonary venous congestion. Suspect small left-sided pleural effusion. Hilar and mediastinal structures are within normal limits. Degenerative changes are seen of the dorsal spine. IMPRESSION: 1. There is cardiomegaly with pulmonary venous congestion. Suspect small left-sided pleural effusion .
[2016-05-01 16:11] LABS: Appearance,Urine Clear (Clear); Bilirubin,Urine Negative (Negative); Glucose,Urine (UA) Negative (Negative); Ketones,Urine Negative (Negative); Leukocyte Esterase,Urine Negative (Negative); Nitrite,Urine Negative (Negative); Protein,Urine Negative (Negative); Specific Gravity,Urine 1.001 (1.001-1.035); UA Billing (MACRO vs. MICRO) CHEM; Urobilinogen,Urine <2.0 mg/dL (<2.0)
[2016-05-01 16:16] LABS: Prothrombin Time 10.6 sec (9.0-12.0)
[2016-05-01 16:19] LABS: ALT 37 U/L (9-52); AST 20 U/L (14-36); Alkaline Phosphatase 66 U/L (38-126); Anion Gap 9 mmol/L; Blood Urea Nitrogen 9 mg/dL (7-17); Calcium 8.6 mg/dL (8.4-10.2); Carbon Dioxide 26 mmol/L (22-30); Chloride 107 mmol/L (98-107); Glucose 78 mg/dL (74-99); Non-African American GFR(MDRD) >60 (>60 ml/min/1.73 sqM); Potassium 3.5 mmol/L (3.5-5.1); Sodium 142 mmol/L (137-145); Total Bilirubin 0.5 mg/dL (0.2-1.3)
[2016-05-01] MEDS ORDERED: SODIUM CHLORIDE 0.9% 1,000 ML IV SCH (16:30)
[2016-05-01 16:34] LABS: Creatine Kinase 30 U/L (30-135)
[2016-05-01] MEDS ORDERED: FUROSEMIDE 10 MG/ML 4 ML VIAL IV STA (16:36)
[2016-05-01 16:37] LABS: Acetaminophen <10.0 ug/mL; Salicylate 1.3 mg/dL
[2016-05-01 16:46] LABS: Creatine Kinase MB 0.3 ng/mL (0.0-2.4); Troponin I <0.012 ng/mL (0.000-0.034)
[2016-05-01 17:05] LABS: ABG Base Excess -1.8 mmol/L; ABG HCO3 22 mmol/L (21-25); ABG PCO2 36 mmHg (35-45); ABG PH 7.41 (7.35-7.45); ABG PO2 127 mmHg (83-108); ABG TCO2 23 mmol/L (19-24)
[2016-05-01 17:06] LABS: ABG Oxygen Saturation 98.9 % (94-97)
[2016-05-01] MEDS ORDERED: PROMETHAZ-COD 6.25-10 MG/5 ML 5 ML CUP PO PRN (17:57)
[2016-05-01] MEDS ORDERED: LORATADINE 10 MG TAB PO PRN (17:57)
[2016-05-01] MEDS ORDERED: ALBUTEROL NEBULIZED 2.5 MG/3 ML INHALATION PRN (17:57)
[2016-05-01] MEDS ORDERED: guaiFENesin-Coden 100-10MG/5ML 10 ML CUP PO PRN (17:57)
[2016-05-01] MEDS ORDERED: METHOCARBAMOL 750 MG TAB PO PRN (17:57)
[2016-05-01] MEDS ORDERED: HYDROcodone/APAP 5-325MG 1 EACH TAB PO PRN (17:57)
[2016-05-01] MEDS ORDERED: IPRATROPIUM-ALBUTEROL 3 ML NEB INHALATION PRN (17:57)
--- NOTE | 2016-05-01 18:35 | P.CNPUL ---
History of Present Illness Consult date: 05/01/16 Reason for consult: dyspnea History of present illness: 45-year-old female patient is very well-known to me. The patient came into the emergency department today because of increased shortness of breath. Apparently she woke up today with chest wall pain, cough, increased shortness of breath to the point where the patient was unable to perform activities of daily life and she was getting short of breath even at rest and she progressively become more anxious. EMS was called to the scene and apparently she was given Narcan [address] hospital for some diminished level of consciousness. Her urine drug screen was positive for benzodiazepines, opiates and oxycodone. Chest x-ray showing increased poor vascular markings and there is no consolidation or airspace disease. This is a quite complicated case. The patient has had multiple hospitalizations for the same. In fact she was discharged less than 10 days ago where she was not hospital for similar complaints of increased shortness of breath, hypoxic respiratory failure and diffuse but the pulmonary infiltrates. During her her earlier hospitalization, the patient had had bronchoscopies on 2 separate occasions and the bronchioloalveolar lavage came back negative for any microbial growth. The patient responded to local dilators and systemic steroids and she was discharged home on a prednisone burst taper. I saw her in my office 3 days ago and she was doing very well and of 20 mg of prednisone. I kept on the prednisone down to 10 mg by mouth daily. I also performed a to function test on her antibody collection noted FEV1 post-bronchodilation was up to 70%. Her total lung capacity was 86% and she had only moderate degree of diffusion impairment. She was at the point where she was not requiring oxygen and on room air pulse ox was around 91-92%. My impression was that were dealing with a smoking-related interstitial lung disease and I counseled this patient for smoking cessation. She denies smoking for the past 10 days, specifically since her last hospitalization. Note that during earlier hospitalizations from 03/22/2016 the patient a CAT scan of the chest that showed diffuse groundglass breath or pulmonary complaints that looked to be related to ILD versus acute lung injury versus noncardiogenic pulmonary edema. Her serologic workup was essentially negative. At one point she was told to have sarcoidosis for an evaluation that was done at [facility] however this was not confirmed by a lung biopsy. Her robert level was low. The rest of the connective tissue disease markers including rheumatoid factor, CARMELINA, p-ANCA and c-ANCA and sed rate were all low. Her serum immunoglobulin levels were within normal and the patient had mild elevation IgE level at 127.. Hypersensitivity pneumonitis is certainly within the differential diagnosis. In any rate, and open lung biopsy or bronchoscopic biopsy has not been done on this patient. During her last hospitalization, I attempted to biopsy this patient however I was not successful knowing that she was quite hypoxic and she developed significant oxygen desaturations during my bronchoscopy to the point where I did not feel it was not safe to proceed with a open lung biopsy. No liver function test abnormalities. No hypercalcemia. No skin changes. Review of Systems Patient is quite anxious this point. She is short of breath even at rest. Past Medical History Past Medical History: Blood Disorder, Heart Failure, Deep Vein Thrombosis (DVT) , Hyperlipidemia, Hypertension, Myocardial Infarction ([place]), Musculoskeletal Disorder, Pulmonary Embolus (PE) Additional Past Medical History / Comment(s): Sarcoidosis diagnosed in 2015 following a bronchoscopy and lung biopsy done at [facility] and she was started on predniosone and she took the therapy for almost 1 year, polycythemia, overweight , bilateral PE (2011, 2015), bilateral DVTs, fibromyalgia, bipolar disorder, degenerative disk disorder, coronary artery disease along with previous history of a [place] and ventilator dependent respiratory failure with MRSA pneumonia for which the patient was hospitalized [facility] in 2012. Viral meningitis in October 2014. Last Myocardial Infarction Date:: February 15, 2013 History of Any Multi-Drug Resistant Organisms: MRSA Date of last positivie culture/infection: 2013 MDRO Source:: Lungs Past Surgical History: Section, Cholecystectomy, Heart Catheterization , Hernia Repair, Orthopedic Surgery Additional Past Surgical History / Comment(s): Lt ankle surgery,BRONCH Past Anesthesia/Blood Transfusion Reactions: No Reported Reaction Past Psychological History: Anxiety, Bipolar, Depression Additional Psychological History / Comment(s): pt. states she is on medication for depression and feels well maintained. Smoking Status: Former smoker Past Alcohol Use History: None Reported Additional Past Alcohol Use History / Comment(s): pt states started smoking in 1988 and quit 04-02-16 had been smoking 1/2 ppd Past Drug Use History: None Reported - Past Family History Father Family Medical History: Blood Disorder, Deep Vein Thrombosis (DVT) Additional Family Medical History / Comment(s): polycythemia Mother Family Medical History: Musculoskeletal Disorder Sister(s) Family Medical History: No Reported History Brother(s) Family Medical History: No Reported History Son(s) Family Medical History: No Reported History Daughter(s) Family Medical History: No Reported History Medications and Allergies Home Medications Medication Instructions Recorded Confirmed Type Cetirizine HCl [Zyrtec] 10 mg PO DAILY PRN 07/16/14 05/01/16 History Ergocalciferol [Vitamin D2 50,000 units PO TH 07/16/14 05/01/16 History (DRISDOL)] Omeprazole [PriLOSEC] 20 mg PO AC-BID 07/16/14 05/01/16 History Budesonide-Formot 160-4.5 Mcg 2 puff INHALATION RT-BID 08/23/15 05/01/16 History [Symbicort 160-4.5 Mcg Inhaler] Enoxaparin [Lovenox] 100 mg SQ DAILY 02/20/16 05/01/16 History lamoTRIgine [LaMICtal] 200 mg PO DAILY 03/22/16 05/01/16 History Furosemide [Lasix] 20 mg PO DAILY 03/30/16 05/01/16 History Nystatin 100,000 Unit/ml Susp 400,000 units PO QID 04/10/16 05/01/16 History [Mycostatin Oral Susp] Potassium Chloride [Klor-Con 20] 20 meq PO DAILY 04/10/16 05/01/16 History Pregabalin [Lyrica] 150 mg PO TID 04/10/16 05/01/16 History HYDROcodone/APAP 5-325MG [[place] 1 tab PO Q6H PRN 05/01/16 05/01/16 History 5-325] Promethaz-Cod 6.25-10 mg/5 ml 5 ml PO Q4HR PRN 05/01/16 05/01/16 History [Phenergan with Codeine] predniSONE 20 mg PO DAILY 05/01/16 05/01/16 History Allergies Allergy/AdvReac Type Severity Reaction Status Date / Time ketorolac tromethamine Allergy Severe Anaphylaxis Verified 04/10/16 13:47 [From Toradol] Opioids - Morphine Analogues Allergy Mild Itching Verified 04/10/16 13:47 rivaroxaban [From Xarelto] Allergy Rash/Hives Verified 04/10/16 13:47 sumatriptan [From Imitrex] Allergy Anaphylaxis Verified 04/10/16 13:47 sumatriptan succinate Allergy Anaphylaxis Verified 04/10/16 13:47 [From Imitrex] morphine AdvReac Severe Itching Verified 04/10/16 13:47 iodine AdvReac Intermediate Itching Verified 04/10/16 13:47 vancomycin AdvReac Itching Verified 04/10/16 13:47 Rich wipes AdvReac Severe Rash/Hives Uncoded 04/10/16 13:47 Physical Exam Vitals: Vital Signs Temp Pulse Resp BP Pulse Ox 05/01/16 18:17 96 05/01/16 17:26 97.3 F L 96 24 101/57 98 05/01/16 16:50 84 24 101/58 100 Intake and Output 05/01/16 05/01/16 05/01/16 06:59 14:59 22:59 Intake Total 1000 Balance 1000 Intake: Amount of Fluid Infused ( 1000 ml) Patient was seen on the telemetry unit. She was anxious. She was having shortness of breath even at rest. She was not using accessory muscles of breathing. She is obese and she has obvious features of obstructive sleep apnea although this has not been confirmed yet.Head exam was generally normal. There was no scleral icterus or corneal arcus. Mucous membranes were moist. Neck is short and supple and there is no thrush. There is significant crowding of the posterior oropharynx and the patient has a Mallampati class IV. Lung sounds are diminished specially in the mid and the lower lung diana bilaterally. There is scattered expiratory wheezes throughout the lung diana. There is also some prolongation of the extremities of breathing. Crackles can be appreciated the lung bases.Cardiac exam revealed the PMI to be normally situated and sized. The rhythm was regular and no extrasystoles were noted during several minutes of auscultation. The first and second heart sounds were normal and physiologic splitting of the second heart sound was noted. There were no murmurs, rubs, clicks, or gallops. Abdomen is obese soft nontender there is no organomegaly.Examination of the extremities revealed easily palpable radial, femoral and pedal pulses. There was no cyanosis, clubbing or edema. Results - Laboratory Findings CBC and BMP: 05/01/16 15:35 05/01/16 15:35 ABG ABG pH 7.41 (7.35-7.45) 05/01/16 15:55 ABG pCO2 36 mmHg (35-45) 05/01/16 15:55 ABG pO2 127 mmHg (83-108) H 05/01/16 15:55 ABG O2 Saturation 98.9 % (94-97) H 05/01/16 15:55 PT/INR, D-dimer PT 10.6 sec (9.0-12.0) 05/01/16 15:35 INR 1.0 (<1.1) 05/01/16 15:35 D-Dimer 1.74 mg/L FEU (<0.60) H 05/01/16 15:35 - Diagnostic Findings Chest x-ray: image reviewed Assessment and Plan Plan: Impression 1 acute dyspnea with increased pulmonary vascular markings on today's chest x- ray. The patient has had previous history of recurrent pulmonary infiltrates that were thought to be related to smoking-related interstitial lung disease. Other possibilities that were entertained with aspirin sensitivity pneumonitis. Certainly there is no evidence of any recurrent infections knowing that 2 separate bronchoscopy that was done the patient came back negative for any microbial growth. I thought recurrent infections of thought to be less likely. 2 increased anxiety probably 2 shortness of breath 3 DVT/pulmonary embolism, history of maintained on anticoagulation with warfarin 4 nicotine addiction/smoking 5 secondary polycythemia 6 obesity with features of obstructive sleep apnea although this has not been officially confirmed 7 viral meningitis history of specifically in October 2014 8 bipolar disorder 9 coronary artery disease appears myocardial infarction 10 recurrent hospitalization for respiratory Complications as mentioned 11 degenerative disc disease Plan Restart the patient IV Solu-Medrol. The Patient IV Fluid to KVO. Provide This Patient Lasix 40 Mg Every 12 Hours. Perform a High Resolution CAT Scan of the Chest Looking for Any Interstitial Lung Disease. The Patient Will Be Given IV Ativan for Anxiety 1 Mg Every 4 Hours. Continue oxygen by nasal cannula at 3 L. Continue Bronchodilators. We'll Continue to Follow.
[2016-05-01 18:49] LABS: Glucose,Whole Blood 161 mg/dL (75-99)
[2016-05-01] MEDS ORDERED: LORazepam 2 MG/ML SYRINGE IV PRN (18:57)
[2016-05-01] MEDS: NALOXONE 0.4 MG/ML 1 ML VIAL IV STA ×2 (19:01→22:30)
[2016-05-01] MEDS: IPRATROPIUM-ALBUTEROL 3 ML NEB INHALATION SCH (19:33)
[2016-05-01] MEDS: FORMOTEROL FUMARATE 20 MCG/2 ML NEBU INHALATION SCH (19:33)
[2016-05-01] MEDS: BUDESONIDE 0.5 MG/2 ML NEBU INHALATION SCH (19:33)
[2016-05-01] MEDS ORDERED: SYMBICORT 160-4.5 MCG INHALER INHALATION SCH (20:00)
[2016-05-01] MEDS: NALOXONE 4 MG in SODIUM CHLORIDE 0.9% 100 ML IV SCH (20:28)
[2016-05-01] MEDS: INSULIN LISPRO (humaLOG) 300 UNIT/3 ML VIAL SQ SCH (20:34)
[2016-05-01 20:35] LABS: Glucose,Whole Blood 173 mg/dL (75-99)
--- NOTE | 2016-05-01 20:39 | HP ---
DATE OF ADMISSION: 05/01/2016 CHIEF COMPLAINT: Shortness of breath. HISTORY OF PRESENT ILLNESS: This 45-year-old woman with a past medical history of multiple medical problems including congestive heart failure, history of deep venous thrombosis, hypertension, hyperlipidemia, history of myocardial infarction, sarcoidosis, history of section, anxiety, bipolar depression, being followed by Dr. Kizzy Springer in the outpatient setting was recently admitted to [facility] with acute hypoxic respiratory failure and possibly secondary to interstitial lung disease and as well as infectious etiology with possible MRSA pneumonia. The patient was treated symptomatically. The patient went home, but currently the patient complaining of increasing shortness of breath and cough and sputum. Patient was complaining of chest pains also. The patient has seen Dr. Hicks previously. The patient came to [facility] ER and was admitted to the hospital for further evaluation and treatment. Chest x-ray in the ER shows cardiomegaly with pulmonary venous congestion and possible infiltrate also. There is no history of fever, rigors or chills. No history of headaches, loss of consciousness or seizures. Past medical history of congestive heart failure, history of DVT, hypertension, hyperlipidemia, history of myocardial infarction, pulmonary embolism, history of sarcoidosis. Medications prior to admission include home medications: 1. Prednisone 20 mg daily. 2. DuoNeb q.i.d. and p.r.n. 3. Lamictal 200 mg p.o. daily. 4. Codeine 5 mL q.6 p.r.n. 5. Zocor 10 mg q.h.s. 6. Lyrica 150 mg p.o. daily. 7. Klor-Con 20 meq p.o. daily. 8. Prilosec 20 mg b.i.d. 9. Mycostatin 40,000 p.o. q.i.d. 10. Singulair 10 mg q.h.s. 11. Remeron 30 mg 13. Robaxin 750 mg t.i.d. p.r.n. 14. Lasix 20 mg p.o. daily. 15. Prilosec 20 mg daily. 16. Vitamin D2 50,000 17. Lovenox 100 mg subcu daily. 19. Symbicort 160/4.5, 2 puffs b.i.d. 20. Ventolin HFA 2 puffs q.6 p.r.n. 21. Coumadin 3 mg and 5 mg. 22. Promethazine Phenergan 5 mL p.o. q.4 p.r.n. 23. [place] 5 mg q.6. 24. Xanax 0.5 p.o. q.i.d. p.r.n. ALLERGIES: MULTIPLE ALLERGIES INCLUDING KETOROLAC, OPIOIDS, RIVAROXABAN, SUMITRIPTAN, MORPHINE, IODINE, VANCOMYCIN, NICOL FAMILY HISTORY: History of deep venous thrombosis. History of in the family. SOCIAL HISTORY: Previous history of smoking. No history of current smoking. No alcohol intake. REVIEW OF SYSTEMS: ENT: No diminished hearing, diminished vision. CARDIOVASCULAR: No angina or palpitations. RESPIRATORY: As mentioned earlier. GASTROINTESTINAL: No nausea or vomiting. : No dysuria or retention. Nervous system: No numbness or weakness. ALLERGIES/IMMUNOLOGY: No asthma or hayfever. MUSCULOSKELETAL: As mentioned earlier. HEMATOLOGY/ONCOLOGY: No history of anemia. ENDOCRINE: No history of diabetes, hypothyroidism. CONSTITUTIONAL: As mentioned earlier. Dermatology: Negative. Rheumatology: Negative. PSYCHIATRY: As mentioned earlier. PHYSICAL EXAMINATION: Alert and oriented x3. Pulse is 96, blood pressure 101/57, respiratory rate 24, temperature 97.7, pulse ox 98% on 3 L. HEENT: Conjunctivae normal. NECK: No jugular venous distention. CARDIOVASCULAR: S1, S2 muffled. RESPIRATORY: Breath sounds diminished at the bases. A few scattered rhonchi and crackles. Expiratory wheezing also present. ABDOMEN: Soft, nontender. No mass palpable. Obese. Legs: No edema. No swelling. CENTRAL NERVOUS SYSTEM: Higher functions as mentioned earlier. Moves all four limbs. No focal deficits. LYMPHATICS: No lymph nodes palpable in the neck, axillae or groin. SKIN: No ulcer, rash or bleeding. LABS: CBC within normal limits. D-dimer is 1.74. Otherwise, BNP is only 180. UA noted. ASSESSMENT: 1. Shortness of breath multifactorial possible chronic obstructive pulmonary disease, acute exacerbation of congestive heart failure, acute exacerbation. 2. Change in mental status, metabolic encephalopathy, multifactorial, possible drug induced. 3. Obesity with body mass index 32.3. 4. History of congestive heart failure. 5. History of degenerative joint disease. 6. Hyperlipidemia. 7. History of hypertension. 8. History of myocardial infarction. 9. History of pulmonary embolism. 10. History of sarcoidosis. 11. History of polycythemia. 12. History of chronic pain syndrome. 13. Fibromyalgia. 14. History of bipolar anxiety, depression. 15. History of nicotine dependence. 16. History of Methicillin-resistant Staph aureus pneumonia. 17. History of cholecystectomy. 18. History of vent dependent respiratory failure x2. 19. FULL CODE. RECOMMENDATIONS AND DISCUSSION: In this 45-year-old woman who presented with multiple complex medical history medical issues, we will monitor the patient closely. Continue with the current medications, symptomatic treatment. Otherwise optimize the bronchodilators and diuretics. Cardiology pulmonary consultation. Guarded prognosis because of multiple complex medical issues. Also recommend IV steroids as well. Further recommendations to follow. A copy of dictation forwarded to Dr. Springer who is the primary care physician. MARY BETH
[2016-05-01] MEDS ORDERED: MONTELUKAST 10 MG TAB PO SCH (21:00)
[2016-05-01] MEDS ORDERED: ATORVASTATIN 10 MG TAB PO SCH (21:00)
[2016-05-01] MEDS ORDERED: MIRTAZAPINE 15 MG TAB PO SCH (21:00)
[2016-05-01] MEDS: NYSTATIN 100,000 UNIT/ML SUSP 500,000 UNIT/5 ML CUP PO SCH ×2 (21:58→21:59)
[2016-05-01] MEDS: ALPRAZolam 0.5 MG TAB PO PRN (21:58)
[2016-05-01] MEDS: ENOXAPARIN 100 MG/ML SYRINGE SQ SCH (22:00)
[2016-05-01] MEDS: methylPREDNISolone SOD SUCCI 125 MG/2 ML VIAL IV SCH (22:00)
[2016-05-01] MEDS: PREGABALIN 75 MG CAP PO SCH (22:03)
[2016-05-01] MEDS ORDERED: NALOXONE 1 MG/ML 2 ML SYRINGE IVP STA (23:00)
[2016-05-02 00:01] LABS: ABG Base Excess -6.3 mmol/L; ABG HCO3 18 mmol/L (21-25); ABG PCO2 31 mmHg (35-45); ABG PH 7.38 (7.35-7.45); ABG PO2 152 mmHg (83-108); ABG TCO2 19 mmol/L (19-24)
--- NOTE | 2016-05-02 00:15 | CT ---
EXAMINATION TYPE: CT brain wo con DATE OF EXAM: 05/02/2016 12:01 AM COMPARISON: 04/21/2015 HISTORY: AMS CT DLP: 1144.70 mGycm Automated exposure control for dose reduction was used. FINDINGS: There is no acute intracranial hemorrhage, mass effect, or midline shift identified. The ventricles and sulci are within normal limits in size. The globes are intact. Mild mucosal thickening is sugges bre in the ethmoid sinuses with chronic sinusitis changes. IMPRESSION: No acute intracranial hemorrhage, mass effect, or midline shift is seen. No significant interval change. Mild chronic sinusitis changes.
[2016-05-02] MEDS: NALOXONE 4 MG in SODIUM CHLORIDE 0.9% 100 ML IV SCH (00:32)
[2016-05-02] MEDS: FUROSEMIDE 10 MG/ML 4 ML VIAL IV SCH ×2 (00:33→08:58)
[2016-05-02] MEDS: methylPREDNISolone SOD SUCCI 125 MG/2 ML VIAL IV SCH ×2 (01:55→06:18)
[2016-05-02 02:02] LABS: Glucose,Whole Blood 90 mg/dL (75-99)
[2016-05-02] MEDS: METOPROLOL TARTRATE 50 MG TAB PO SCH ×2 (04:27→08:59)
[2016-05-02 05:01] LABS: Anion Gap 17 mmol/L; Blood Urea Nitrogen 9 mg/dL (7-17); Calcium 8.7 mg/dL (8.4-10.2); Carbon Dioxide 20 mmol/L (22-30); Chloride 107 mmol/L (98-107); Glucose 159 mg/dL (74-99); Magnesium 1.9 mg/dL (1.6-2.3); Non-African American GFR(MDRD) >60 (>60 ml/min/1.73 sqM); Phosphorous 2.7 mg/dL (2.5-4.5); Potassium 3.3 mmol/L (3.5-5.1); Sodium 144 mmol/L (137-145)
[2016-05-02] MEDS ORDERED: Magnesium Replacement Protocol 1 EACH MISC MISCELLANE PRN (05:21)
[2016-05-02] MEDS ORDERED: Potassium Replacement Protocol 1 EACH MISC MISCELLANE PRN (05:21)
[2016-05-02 05:52] LABS: Basophils % (A) 0 %; CH 30.8; CHCM 33.8; Eosinophils % (A) 0 %; HCT 45.7 % (34.0-46.0); HDW 3.04; Luc # (Auto) 0.03; Luc % (Auto) 0; Lymphocytes # (A) 0.6 k/uL (1.0-4.8); Lymphocytes % (A) 9 %; MCH 30.1 pg (25.0-35.0); MCHC 32.8 g/dL (31.0-37.0); MCV 91.6 fL (80.0-100.0); Mean Platelet Volume 7.4; Monocytes # (A) 0.1 k/uL (0-1.0); Monocytes % (A) 1 %; Neutrophils # (A) 6.2 k/uL (1.3-7.7); Neutrophils % (A) 89 %; RBC 4.99 m/uL (3.80-5.40); RDW 14.3 % (11.5-15.5)
[2016-05-02 06:19] LABS: Glucose,Whole Blood 148 mg/dL (75-99)
[2016-05-02] MEDS: MAGNESIUM SULFATE-D5W PMX 1 GM in DEXTROSE/WATER 1 100ML.BAG IVPB SCH ×2 (06:19→08:55)
[2016-05-02] MEDS: POTASSIUM CHLORIDE 10 MEQ, LIDOCAINE 2% INJ 10 MG in SODIUM CHLORIDE 0.9% 100 ML IV SCH ×2 (06:19→08:55)
[2016-05-02] MEDS: INSULIN LISPRO (humaLOG) 300 UNIT/3 ML VIAL SQ SCH (06:23)
[2016-05-02] MEDS: FORMOTEROL FUMARATE 20 MCG/2 ML NEBU INHALATION SCH (07:14)
[2016-05-02] MEDS: BUDESONIDE 0.5 MG/2 ML NEBU INHALATION SCH (07:14)
[2016-05-02] MEDS: IPRATROPIUM-ALBUTEROL 3 ML NEB INHALATION SCH ×2 (07:14→11:19)
[2016-05-02] MEDS ORDERED: PANTOPRAZOLE 40 MG TABLET PO SCH (07:30)
--- NOTE | 2016-05-02 08:25 | CT ---
EXAMINATION TYPE: CT chest wo con DATE OF EXAM: 05/02/2016 12:01 AM COMPARISON: NONE HISTORY: HI-RES chest, done supine only, pt unresponsive, R/O ILD CT DLP: 695.40 mGycm Automated exposure control for dose reduction was used. FINDINGS: High resolution CT performed in supine position only due to the patient's clinical condition. There are groundglass changes noted bilaterally. Motion artifact markedly limits the exam. Basilar fatima bsegmental consolidation and tiny effusion noted. There is cardiac enlargement. No diagnostic evidence of chronic interstitial lung disease. Artifact results in nondiagnostic upper abdominal evaluation. Could not exclude mass within the liver explained to the amount of artifact and therefore nondiagnostic. IMPRESSION: SEVERELY LIMITED EXAM DUE TO ARTIFACT. GROUNDGLASS CHANGES ARE SEEN IN THE PERIHILAR REGIONS COULD BE ON THE BASIS OF A INTERSTITIAL PNEUMONITIS OR CENTRAL MILD VENOUS CONGESTION. 2. SUBSEGMENTAL POSTERIOR CONSOLIDATION MOST LIKELY ON THE BASIS OF DEPENDENT ATELECTASIS.
--- NOTE | 2016-05-02 08:56 | P.CNNES ---
History of Present Illness Consult date: 05/02/16 Reason for Consult: Patient with altered mental staus and lethargy. History of Present Illness: This patient is a 45-year-old right-handed white female brought into the emergency room yesterday for evaluation of shortness of breath. Apparently she awoke and was feeling extremely fatigued and having difficulty with her breathing. She was unable to perform her activities of daily living as she was getting short of breath. EMS was called to the scene and apparently she was given Narcan [address] hospital as she seemed to be more lethargic. In the ER she underwent a urine drug screen which came back positive for benzodiazepines, opiates, and oxycodone. Patient then was admitted to the hospital for further treatment of 6 acute respiratory failure. She was very dyspneic in the ER. She was given a breathing treatment which did seem to help somewhat. She then was on the medical floor and showed increasing symptoms of shortness of breath. She does have a history of sarcoidosis. She has been followed in the outpatient pulmonary clinic for interstitial lung disease. She has multiple medical issues related to her underlying pulmonary conditions. She does have a history of having suffered 2 pulmonary embolus in 2012 in 2016. She is on Coumadin therapy as well. The patient showed increasing lethargy on the medical floor. She was transferred to the intensive care unit late yesterday evening around midnight. She was given some Narcan and she did become lethargic at the time. She was sent for a computed tomography scan of the brain which revealed no acute intracranial hemorrhage or mass effect. No significant interval changes were noted. Mild chronic sinusitis was appreciated. The patient did show improvement overnight. This morning in the ICU she is awake and alert. She is following all commands. She is undergoing EEG testing this morning in the ICU. Patient states she does have history of recurrent respiratory problems. Her clinical findings yesterday were suggesting a metabolic encephalopathy secondary to pulmonary and respiratory distress. This morning she seems to be doing much better. The patient denies any previous history of TIA or stroke. She denies any previous history of seizures. Neurologically she seems to be back to baseline this morning and is able to follow all commands. Neurology is now consulted for further evaluation and recommendations. Review of Systems Constitutional: Denies chills, Denies fever Eyes: denies blurred vision, denies pain Ears, nose, mouth and throat: Denies headache, Denies sore throat Cardiovascular: Denies chest pain, Denies shortness of breath Respiratory: Denies cough Gastrointestinal: Denies abdominal pain, Denies diarrhea, Denies nausea, Denies vomiting Genitourinary: Denies dysuria, Denies hematuria Musculoskeletal: Denies myalgias Integumentary: Denies pruritus, Denies rash Neurological: Reports change in mentation, Reports headaches, Denies numbness, Denies weakness Psychiatric: Denies anxiety, Denies depression Endocrine: Denies fatigue, Denies weight change Past Medical History Past Medical History: Blood Disorder, Heart Failure, COPD, Deep Vein Thrombosis (DVT), Hyperlipidemia, Hypertension, Myocardial Infarction ([place]), Musculoskeletal Disorder, Pulmonary Embolus (PE) Additional Past Medical History / Comment(s): PE 2012; Sarcoidosis diagnosed in 2015 following a bronchoscopy and lung biopsy done at [facility] and she was started on predniosone and she took the therapy for almost 1 year, polycythemia, overweight, bilateral PE (2011, 2015), bilateral DVTs, fibromyalgia, bipolar disorder, degenerative disk disorder, coronary artery disease along with previous history of a [place] and ventilator dependent respiratory failure with MRSA pneumonia for which the patient was hospitalized [facility] in 2012. Viral meningitis in October 2014. Last Myocardial Infarction Date:: February 15, 2013 History of Any Multi-Drug Resistant Organisms: MRSA Date of last positivie culture/infection: 2013 MDRO Source:: Lungs Past Surgical History: Section, Cholecystectomy, Heart Catheterization , Hernia Repair, Orthopedic Surgery Additional Past Surgical History / Comment(s): Lt ankle surgery,BRONCH Past Anesthesia/Blood Transfusion Reactions: Motion Sickness, Postoperative Nausea & Vomiting (PONV) Past Psychological History: Anxiety, Bipolar, Depression, Panic Disorder Additional Psychological History / Comment(s): pt. states she is on medication for depression and feels well maintained. Smoking Status: Former smoker Past Alcohol Use History: None Reported Additional Past Alcohol Use History / Comment(s): pt states started smoking in 1988 and quit 04-02-16 had been smoking 1/2 ppd Past Drug Use History: None Reported - Past Family History Father Family Medical History: Blood Disorder, Deep Vein Thrombosis (DVT) Additional Family Medical History / Comment(s): polycythemia Mother Family Medical History: Deep Vein Thrombosis (DVT), Musculoskeletal Disorder Sister(s) Family Medical History: No Reported History Brother(s) Family Medical History: No Reported History Son(s) Family Medical History: No Reported History Daughter(s) Family Medical History: No Reported History Medications and Allergies Home Medications Medication Instructions Recorded Confirmed Type Cetirizine HCl [Zyrtec] 10 mg PO DAILY PRN 07/16/14 05/01/16 History Ergocalciferol [Vitamin D2 50,000 units PO TH 07/16/14 05/01/16 History (DRISDOL)] Omeprazole [PriLOSEC] 20 mg PO AC-BID 07/16/14 05/01/16 History Budesonide-Formot 160-4.5 Mcg 2 puff INHALATION RT-BID 08/23/15 05/01/16 History [Symbicort 160-4.5 Mcg Inhaler] Enoxaparin [Lovenox] 100 mg SQ DAILY 02/20/16 05/01/16 History lamoTRIgine [LaMICtal] 200 mg PO DAILY 03/22/16 05/01/16 History Furosemide [Lasix] 20 mg PO DAILY 03/30/16 05/01/16 History Nystatin 100,000 Unit/ml Susp 400,000 units PO QID 04/10/16 05/01/16 History [Mycostatin Oral Susp] Potassium Chloride [Klor-Con 20] 20 meq PO DAILY 04/10/16 05/01/16 History Pregabalin [Lyrica] 150 mg PO TID 04/10/16 05/01/16 History HYDROcodone/APAP 5-325MG [[place] 1 tab PO Q6H PRN 05/01/16 05/01/16 History 5-325] Promethaz-Cod 6.25-10 mg/5 ml 5 ml PO Q4HR PRN 05/01/16 05/01/16 History [Phenergan with Codeine] predniSONE 20 mg PO DAILY 05/01/16 05/01/16 History Allergies Allergy/AdvReac Type Severity Reaction Status Date / Time ketorolac tromethamine Allergy Severe Anaphylaxis Verified 04/10/16 13:47 [From Toradol] Opioids - Morphine Analogues Allergy Mild Itching Verified 04/10/16 13:47 rivaroxaban [From Xarelto] Allergy Rash/Hives Verified 04/10/16 13:47 sumatriptan [From Imitrex] Allergy Anaphylaxis Verified 04/10/16 13:47 sumatriptan succinate Allergy Anaphylaxis Verified 04/10/16 13:47 [From Imitrex] morphine AdvReac Severe Itching Verified 04/10/16 13:47 iodine AdvReac Intermediate Itching Verified 04/10/16 13:47 vancomycin AdvReac Itching Verified 04/10/16 13:47 Rich wipes AdvReac Severe Rash/Hives Uncoded 04/10/16 13:47 Physical Examination - Vital Signs Vital Signs: Vital Signs Temp Pulse Resp BP Pulse Ox 05/02/16 07:39 102 H 05/02/16 07:28 89 05/02/16 07:27 91 05/02/16 07:15 90 05/02/16 07:00 91 18 109/66 93 L 05/02/16 06:30 92 15 102/65 94 L 05/02/16 06:00 90 28 H 106/61 96 05/02/16 05:30 91 15 100/63 94 L 05/02/16 05:00 94 19 107/61 93 L 05/02/16 04:30 96 18 112/62 94 L 05/02/16 04:00 96 15 103/60 95 05/02/16 03:30 100 19 104/64 95 05/02/16 03:00 100 20 108/62 96 05/02/16 02:30 96 15 110/62 96 05/02/16 02:00 100 20 107/68 96 05/02/16 01:30 101 H 18 108/64 96 05/02/16 01:00 103 H 19 113/64 96 05/02/16 00:30 101 H 29 H 105/64 97 05/02/16 00:00 97.8 F 102 H 17 105/64 97 05/01/16 23:30 102 H 19 115/59 100 05/01/16 23:00 103 H 45 H 110/62 100 05/01/16 22:30 104 H 37 H 113/67 100 05/01/16 22:10 98 23 91/55 99 05/01/16 22:00 97 21 91/55 97 05/01/16 21:30 102 H 16 98/58 98 05/01/16 21:00 100 15 108/63 97 05/01/16 20:30 101 H 16 104/57 97 01/30/17 20:00 98.5 F 103 H 17 98/56 98 05/01/16 19:53 105 H 05/01/16 19:46 105 H 05/01/16 19:44 105 H 05/01/16 19:33 96 05/01/16 19:30 101 H 16 103/64 97 05/01/16 19:00 98.3 F 104 H 66 H 120/70 99 05/01/16 18:52 132/69 100 05/01/16 18:49 101 H 05/01/16 18:17 96 05/01/16 17:26 97.3 F L 96 24 101/57 98 05/01/16 16:50 84 24 101/58 100 Intake and Output 05/01/16 05/02/16 05/02/16 22:59 06:59 14:59 Intake Total 1105 347.1 35 Output Total 1250 615 40 Balance -145 -267.9 -5 Intake: IV 90 15 Naloxone 4 mg In Sodium 90 15 Chloride 0.9% 100 ml @ 0. 6 MG/HR 16.5 mls/hr IV . Q6H40M AGNIESZKA Rx#:[id number] Amount of Fluid Infused ( 1000 ml) Intake, IV Titration 105 257.1 20 Amount Naloxone 4 mg In Sodium 45 97.1 Chloride 0.9% 100 ml @ 0. 6 MG/HR 16.5 mls/hr IV . Q6H40M AGNIESZKA Rx#:[id number] Sodium Chloride 0.9% 1, 60 160 20 000 ml @ 20 mls/hr IV . Q24H AGNIESZKA Rx#:[id number] Output: Urine 1250 615 40 Other: Voiding Method Indwelling Catheter Indwelling Catheter Weight 102.1 kg 101 kg - Constitutional General appearance: average body habitus, cooperative - EENT EENT: PERRL, mucous membranes moist - Respiratory Respiratory: lungs clear, normal breath sounds - Cardiovascular Cardiovascular: regular rate, normal S1, normal S2 Extremities: no peripheral edema bilaterally - Gastrointestinal Gastrointestinal: normoactive bowel sounds - Integumentary Integumentary: normal - Neurologic Cranial nerve examination: PERRL, EOMI, VFF, V1/V2/V3 grossly intact, face symmetric, tongue midline, intact gag reflex, intact corneal reflex, normal palatal elevation Speech examination: intact Sensorimotor examination: intact Detailed motor examination: grossly full strength in all extremities Motor examination - right side: 5/5: biceps, triceps, wrist flexion, wrist extension, toll test worker, hip flexors, knee extensors, dorsiflexion, toe extension (EHL) , plantarflexion Motor examination - left side: 5/5: biceps, triceps, wrist flexion, wrist extension, toll test worker, hip flexors, knee extensors, dorsiflexion, toe extension (EHL) , plantarflexion Detailed sensory examination: intact Reflexes: 1+: ankle, bicep, knee, tricep - Musculoskeletal Musculoskeletal: no pain - Psychiatric Psychiatric: mood/affect appropriate, cooperative Results - Laboratory Findings CBC and BMP: 05/02/16 04:11 05/02/16 04:11 Abnormal Lab Findings: Abnormal Labs 05/01/16 05/01/16 05/02/16 18:47 20:33 04:11 Lymphocytes # 0.6 L ABG pCO2 ABG pO2 ABG HCO3 ABG O2 Saturation Potassium Carbon Dioxide Glucose POC Glucose (mg/dL) 161 H 173 H 05/02/16 05/02/16 05/02/16 04:11 06:16 22:53 Lymphocytes # ABG pCO2 31 L ABG pO2 152 H ABG HCO3 18 L ABG O2 Saturation 99.0 H Potassium 3.3 L Carbon Dioxide 20 L Glucose 159 H POC Glucose (mg/dL) 148 H Assessment and Plan (1) Metabolic encephalopathy Status: Acute Code(s): G93.41 - METABOLIC ENCEPHALOPATHY (2) Acute exacerbation of chronic bronchitis Status: Acute Code(s): J20.9 - ACUTE BRONCHITIS, UNSPECIFIED (3) COPD (chronic obstructive pulmonary disease) Status: Acute Code(s): J44.9 - CHRONIC OBSTRUCTIVE PULMONARY DISEASE, UNSPECIFIED (4) History of deep venous thrombosis or pulmonary embolus Status: Acute Code(s): [id number] - Plan: Patient is a 45-year-old female admitted just her day with increased shortness of breath and respiratory distress. She was subsequent admitted to Hospital and was found to be extremely lethargic and obtunded. Her urine drug screen in the emergency room was positive for several narcotics including opiates and oxycodone. It was also positive for benzodiazepines. She was admitted to the medical floor but showed increasing lethargy and was transferred to the intensive care unit at about midnight last night. She is now doing much better this morning after being treated. Gender went a computed tomography scan of the brain which failed to reveal any acute changes. She is following all simple commands. She is following all commands and her neurological examination at this time is nonfocal in the ICU. This patient likely has a acute metabolic encephalopathy secondary to chronic obstructive pulmonary disease and drug-induced encephalopathy. She is now doing much better in the ICU. She is undergoing routine EEG which will be reviewed. Her neurological examination remains nonfocal. Her prognosis at this time remains guarded due to multiple complex medical issues. We will continue to follow her closely during this admission for any further adjustments as needed. Overall prognosis at this time remains guarded. Time with Patient: Greater than 30
[2016-05-02] MEDS: ENOXAPARIN 100 MG/ML SYRINGE SQ SCH (08:57)
[2016-05-02] MEDS: PREGABALIN 75 MG CAP PO SCH (08:59)
[2016-05-02] MEDS: NYSTATIN 100,000 UNIT/ML SUSP 500,000 UNIT/5 ML CUP PO SCH (08:59)
[2016-05-02] MEDS ORDERED: FLUoxetine HCL 20 MG CAP PO SCH (09:00)
[2016-05-02] MEDS ORDERED: WARFARIN 3 MG TAB PO SCH (09:00)
[2016-05-02] MEDS ORDERED: WARFARIN 5 MG TAB PO SCH (09:00)
[2016-05-02] MEDS ORDERED: lamoTRIgine 100 MG TAB PO SCH (09:00)
[2016-05-02] MEDS ORDERED: ENOXAPARIN 40 MG/0.4 ML SYRINGE SQ SCH (09:00)
[2016-05-02] MEDS ORDERED: POTASSIUM CHLORIDE ER 20 MEQ TAB.ER PO SCH (09:00)
[2016-05-02] MEDS ORDERED: predniSONE 20 MG TAB PO SCH (09:00)
[2016-05-02 09:59] VITALS: BMI 35.9
[2016-05-02 10:10] VITALS: BP 131/73; RESP 25; TEMP 98
--- NOTE | 2016-05-02 10:24 | P.PN ---
Subjective 45-year-old female patient is very well-known to me. The patient came into the emergency department today because of increased shortness of breath. Apparently she woke up today with chest wall pain, cough, increased shortness of breath to the point where the patient was unable to perform activities of daily life and she was getting short of breath even at rest and she progressively become more anxious. EMS was called to the scene and apparently she was given Narcan [address] the hospital for some diminished level of consciousness. Her urine drug screen was positive for benzodiazepines, opiates and oxycodone. Chest x-ray showing increased poor vascular markings and there is no consolidation or airspace disease. This is a quite complicated case. The patient has had multiple hospitalizations for the same. In fact she was discharged less than 10 days ago where she was not hospital for similar complaints of increased shortness of breath, hypoxic respiratory failure and diffuse but the pulmonary infiltrates. During her her earlier hospitalization, the patient had had bronchoscopies on 2 separate occasions and the bronchioloalveolar lavage came back negative for any microbial growth. The patient responded to local dilators and systemic steroids and she was discharged home on a prednisone burst taper. I saw her in my office 3 days ago and she was doing very well and of 20 mg of prednisone. I kept on the prednisone down to 10 mg by mouth daily. I also performed a to function test on her antibody collection noted FEV1 post-bronchodilation was up to 70%. Her total lung capacity was 86% and she had only moderate degree of diffusion impairment. She was at the point where she was not requiring oxygen and on room air pulse ox was around 91-92%. My impression was that were dealing with a smoking-related interstitial lung disease and I counseled this patient for smoking cessation. She denies smoking for the past 10 days, specifically since her last hospitalization. Note that during earlier hospitalizations from 03/22/2016 the patient a CAT scan of the chest that showed diffuse groundglass breath or pulmonary complaints that looked to be related to ILD versus acute lung injury versus noncardiogenic pulmonary edema. Her serologic workup was essentially negative. At one point she was told to have sarcoidosis for an evaluation that was done at [facility] however this was not confirmed by a lung biopsy. Her robert level was low. The rest of the connective tissue disease markers including rheumatoid factor, CARMELINA, p-ANCA and c-ANCA and sed rate were all low. Her serum immunoglobulin levels were within normal and the patient had mild elevation IgE level at 127.. Hypersensitivity pneumonitis is certainly within the differential diagnosis. In any rate, and open lung biopsy or bronchoscopic biopsy has not been done on this patient. During her last hospitalization, I attempted to biopsy this patient however I was not successful knowing that she was quite hypoxic and she developed significant oxygen desaturations during my bronchoscopy to the point where I did not feel it was not safe to proceed with a open lung biopsy. No liver function test abnormalities. No hypercalcemia. No skin changes. On 05/02/2016 the patient is being seen in follow-up. After being seen on the telemetry floor the patient a chest to the intensive care unit knowing that her mental status was fluctuating. At one point the patient was found to be completely unresponsive. For that reason I brought this patient back to the intensive care unit. At that time she was unresponsive and she was not even respond to deep painful stimuli. Narcotic overdose was suspected. The patient was placed on a Narcan drip and subsequently she improved. She did have some diminished level of consciousness throughout the night however it was noted that the patient had significant response to Narcan infusion. As such the patient is still being monitored in the intensive care unit. I ordered a CAT scan of the brain that came back essentially within normal limits and there is no acute abnormalities. I also asked an EEG to be done this morning. Neurology consultation was also obtained. The CAT scan of the chest was also done and this was a high resolution computed tomography scan of the chest and unfortunately cannot be well interpreted knowing that the patient moved and there is some obvious motion artifact. Meanwhile, the patient on a bronchodilator steroids and diuretics combination. Her respiratory status improves compared to yesterday. Today's condition is much more stable. Her blood gases were repeated yesterday showed no evidence of any hypercapnic respiratory failure. She is off BiPAP for now. She is also afebrile. Objective - Vital Signs Vital signs: Vital Signs Temp 98.0 F 05/02/16 08:00 Pulse 99 05/02/16 10:00 Resp 25 H 05/02/16 10:00 BP 131/73 05/02/16 10:00 Pulse Ox 98 05/02/16 10:00 Intake & Output 05/01/16 05/02/16 05/02/16 18:59 06:59 18:59 Intake Total 1000 452.1 735 Output Total 1100 765 590 Balance -100 -312.9 145 Weight 101 kg 101 kg Intake: IV 90 15 Naloxone 4 mg In Sodium 90 15 Chloride 0.9% 100 ml @ 0. 6 MG/HR 16.5 mls/hr IV . Q6H40M AGNIESZKA Rx#:[id number] Amount of Fluid Infused ( 1000 ml) Intake, IV Titration 362.1 370 Amount Magnesium Sulfate-D5w Pmx 100 1 gm In Dextrose/Water 1 100ml.bag @ 100 mls/hr IVPB Q1H AGNIESZKA Rx#: [id number] Naloxone 4 mg In Sodium 142.1 110 Chloride 0.9% 100 ml @ 0. 6 MG/HR 16.5 mls/hr IV . Q6H40M AGNIESZKA Rx#:[id number] Potassium Chloride 10 meq 100 Lidocaine 2% Inj 10 mg In Sodium Chloride 0.9% 100 ml @ 100 mls/hr IV Q1HR AGNIESZKA Rx#:[id number] Sodium Chloride 0.9% 1, 220 60 000 ml @ 20 mls/hr IV . Q24H AGNIESZKA Rx#:[id number] Oral 350 Output: Urine 1100 765 590 Other: Voiding Method Indwelling Catheter - Exam Patient was seen on the telemetry unit. She was anxious. She was having shortness of breath even at rest. She was not using accessory muscles of breathing. She is obese and she has obvious features of obstructive sleep apnea although this has not been confirmed yet.Head exam was generally normal. There was no scleral icterus or corneal arcus. Mucous membranes were moist. Neck is short and supple and there is no thrush. There is significant crowding of the posterior oropharynx and the patient has a Mallampati class IV. Lung sounds are diminished specially in the mid and the lower lung diana bilaterally. There is scattered expiratory wheezes throughout the lung diana. There is also some prolongation of the extremities of breathing. Crackles can be appreciated the lung bases.Cardiac exam revealed the PMI to be normally situated and sized. The rhythm was regular and no extrasystoles were noted during several minutes of auscultation. The first and second heart sounds were normal and physiologic splitting of the second heart sound was noted. There were no murmurs, rubs, clicks, or gallops. Abdomen is obese soft nontender there is no organomegaly.Examination of the extremities revealed easily palpable radial, femoral and pedal pulses. There was no cyanosis, clubbing or edema. - Labs CBC & Chem 7: 05/02/16 04:11 05/02/16 04:11 Labs: Abnormal Lab Results - Last 24 Hours (Table) 05/01/16 05/01/16 05/02/16 Range/Units 18:47 20:33 04:11 Lymphocytes # 0.6 L (1.0-4.8) k/uL ABG pCO2 (35-45) mmHg ABG pO2 (83-108) mmHg ABG HCO3 (21-25) mmol/L ABG O2 Saturation (94-97) % Potassium (3.5-5.1) mmol/L Carbon Dioxide (22-30) mmol/L Glucose (74-99) mg/dL POC Glucose (mg/dL) 161 H 173 H (75-99) mg/dL 05/02/16 05/02/16 05/02/16 Range/Units 04:11 06:16 22:53 Lymphocytes # (1.0-4.8) k/uL ABG pCO2 31 L (35-45) mmHg ABG pO2 152 H (83-108) mmHg ABG HCO3 18 L (21-25) mmol/L ABG O2 Saturation 99.0 H (94-97) % Potassium 3.3 L (3.5-5.1) mmol/L Carbon Dioxide 20 L (22-30) mmol/L Glucose 159 H (74-99) mg/dL POC Glucose (mg/dL) 148 H (75-99) mg/dL Assessment and Plan Plan: Impression 1 acute dyspnea with increased pulmonary vascular markings on today's chest x- ray. The patient has had previous history of recurrent pulmonary infiltrates that were thought to be related to smoking-related interstitial lung disease. Other possibilities that were entertained with aspirin sensitivity pneumonitis. Certainly there is no evidence of any recurrent infections knowing that 2 separate bronchoscopy that was done the patient came back negative for any microbial growth. I thought recurrent infections of thought to be less likely. On 05/02/2016 the patient is being seen in follow-up. High resolution CAT scan of the chest was done however there is also limited because of motion artifact. The patient is less short of breath compared to yesterday. She is being subjected to bronchodilators and systemic steroids pages also on diuretics. 2 Diminished level of consciousness, episodic, responding to Narcan. Strongly suspect narcotic medication overdose as the patient's response was significant following Narcan infusion. An ocular infusion was discontinued this morning. Neurology consultation was obtained. EEG is pending. CAT scan of the brain did not show any acute abnormalities. No evidence of any CO2 narcosis based on the blood gases. 3 DVT/pulmonary embolism, history of maintained on anticoagulation with warfarin , PT/INR is subtherapeutic and the patient was started on Lovenox and her Coumadin was restarted., 4 nicotine addiction/smoking 5 secondary polycythemia 6 obesity with features of obstructive sleep apnea although this has not been officially confirmed 7 viral meningitis history of specifically in October 2014 8 bipolar disorder 9 coronary artery disease appears myocardial infarction 10 recurrent hospitalization for respiratory Complications as mentioned 11 degenerative disc disease Plan Will monitor the patient intensive care unit. We'll continue the bronchodilators. We'll continue the steroids. We'll continue the diuretics. We'll monitor the mental status. We'll ask neurology treatment with the patient. EEG is pending to rule out underlying seizures. Stop the Narcan drip. Limited use of narcotic medications. We'll continue to follow make further recommendations accordingly. I'm inclined also today. The patient's high resolution CAT scan of the chest done today earlier CAT scan was suboptimal due to motion artifact.
[2016-05-02] MEDS: ALPRAZolam 0.5 MG TAB PO PRN (10:45)
[2016-05-02 11:38] VITALS: PULSE 94
[2016-05-02] MEDS ORDERED: INSULIN LISPRO (humaLOG) 300 UNIT/3 ML VIAL SQ SCH (12:00)
[2016-05-02 12:25] LABS: Hemoglobin A1C 5.2 % (4.2-6.1)
[2016-05-02 12:28] LABS: Glucose,Whole Blood 169 mg/dL (75-99)
[2016-05-02 16:31] LABS: ABG PH 7.38 (7.35-7.45)
[2016-05-02 16:32] LABS: ABG Base Excess -6.3 mmol/L; ABG HCO3 18 mmol/L (21-25); ABG PCO2 31 mmHg (35-45); ABG PO2 152 mmHg (83-108); ABG TCO2 19 mmol/L (19-24)
--- NOTE | 2016-05-02 22:35 | EEG ---
DATE OF SERVICE: 05/02/2016 INDICATIONS FOR EXAMINATION: This patient is a 45-year-old female being evaluated for episode of unresponsiveness and shortness of breath. AGE: 45 years. EEG FINDINGS: A routine 21-channel awake digital EEG recording was accomplished utilizing the 10-20 international system with bipolar and referential montages. The background activity in the most alert resting state consists of a low to medium amplitude, fairly well developed and well sustained 6-7 Hz activity over the posterior head regions. This posterior rhythm attenuates to eye opening. There is a small amount of low amplitude 18-20 Hz beta activity seen maximally over the anterior head regions. Muscle and movement artifact was observed on a few occasions during the tracing. Hyperventilation was not performed. Photic stimulation at flash frequencies of 2-30 Hz produced a good symmetrical occipital driving response. No epileptiform discharges were seen. IMPRESSION: This EEG is mildly abnormal in diffuse fashion due to slight slowing of the EEG background. The EEG failed to reveal any focal, lateralized or epileptiform abnormalities. Clinical correlation is recommended.
--- NOTE | 2016-05-03 11:45 | DS ---
DATE OF ADMISSION: 05/01/2016 DATE OF DISCHARGE: 05/02/2016 FINAL DIAGNOSES: 1. Shortness of breath with possible multifactorial with chronic obstructive pulmonary disease acute exacerbation as well as congestive heart failure acute exacerbation. 2. Change in mental status with metabolic encephalopathy, multifactorial, possibly drug-induced. 3. Obesity with a body mass index of 32.3. 4. History of congestive heart failure. 5. History of degenerative joint disease. 6. Hyperlipidemia. 7. History of hypertension. 8. History of myocardial infarction. 9. History of pulmonary embolism. 10. History of sarcoidosis. 11. History of polycythemia. 12. History of chronic pain syndrome. 13. History of fibromyalgia. 14. History of bipolar, anxiety, depression. 15. History of nicotine dependence. 16. History of methicillin-resistant Staphylococcus aureus. 17. History of cholecystectomy. 18. History of ventilator dependent respiratory failure x2. 19. FULL CODE. DISCHARGE DISPOSITION: The patient LEFT THE HOSPITAL AGAINST MEDICAL ADVICE. HISTORY OF PRESENT ILLNESS: This is a 45-year-old woman with a past medical history of multiple medical problems, was followed by . The patient was admitted with shortness of breath and acute respiratory failure, which was thought to be multifactorial. Patient was treated in conjunction with Pulmonology but; however, the patient LEFT THE HOSPITAL AGAINST MEDICAL ADVICE. Prognosis was extremely guarded. Please refer to the multiple notes and documentation for further information. Further recommendations to follow. MTDD
--- NOTE | 2016-05-04 11:24 | CDI ---
In responding to this query, please exercise your independent professional judgment. The [facility] Coding Staff and Clinical Documentation Specialists appreciate your assistance in clarifying documentation, maintaining compliance with coding guidelines, accurately documenting patients condition and capturing severity of illness. The fact that a question is asked does not imply that any particular answer is desired or expected. Communication forms are a method of clarifying documentation and are not made part of the Legal Health Record. Thank you in advance for your clarification. Last Revision, June 2015 Ina Carmen [address] [place] [address] Documentation Clarification Form Date: 05/04/2016 11:12:00 AM From: Shagufta Espinoza Phone: Admit Date: 05/01/2016 4:30:00 PM Patient Name: Meme Estrada Visit Number: [id number] Discharge Date: 05/04/16 Dr. Gonsalo Church Acute exacerbaton of CHF is documented in the H&P, and DS. History/Risk Factors: HTN, COPD, pulmonary disease VS/Pulse OX: T-97. P-79, RR-10, BP-109/56, O2-98/non-rebreather BNP: 180 Echocardiogram Results: none this admission Chest X Ray: There is cardiomegaly with pulmonary venous congeston. Suspect small left-sided pleural effusion Treatment: Nebulizer, IV Lasix, IV Solu-Medrol, Pulmicort, Consults: Pulmonary, Neurology In your professional opinion, can you please clarify the type of CHF if known? Systolic Diastolic Systolic and Diastolic Cor Pulmonale (Right Sided HF w/ Pulmonary HTN) Unable to determine Other, please specify Please document in your progress notes and discharge summary in order to capture severity of illness and risk of mortality. Include clinical findings that support your diagnosis. FYI: Press F11 to launch patient chart. GAB Paz, CCS, AHIMA Certified [employer] Firer/[place] [employer] II MARY BETH
[2016-05-04] MEDS ORDERED: ERGOCALCIFEROL 50,000 UNIT CAP PO SCH (18:00)
--- NOTE | 2016-05-04 18:28 | PN ---
ADDENDUM: Please note congestive heart failure with chronic diastolic dysfunction, ejection fraction 50% to 60%.
== END 2016-05-02 13:01 | disposition left against medical advice (07) ==
LOC: EC 15:34 → INTOOBSV 16:30 → 6SEL 16:30 → 6ICU 18:41
PROVIDERS: ADMIT Hospitalist; ATTEND Hospitalist
DX: R06.02 Shortness of breath (principal); J44.0 Chronic obstructive pulmonary disease with (acute) lower respiratory infection; G93.41 Metabolic encephalopathy; J96.00 Acute respiratory failure, unspecified whether with hypoxia or hypercapnia; J84.9 Interstitial pulmonary disease, unspecified; I50.32 Chronic diastolic (congestive) heart failure; J67.9 Hypersensitivity pneumonitis due to unspecified organic dust; J20.9 Acute bronchitis, unspecified; I11.0 Hypertensive heart disease with heart failure; I50.9 Heart failure, unspecified; D75.1 Secondary polycythemia; F31.9 Bipolar disorder, unspecified; I25.10 Atherosclerotic heart disease of native coronary artery without angina pectoris; I25.2 Old myocardial infarction; M19.90 Unspecified osteoarthritis, unspecified site; E78.5 Hyperlipidemia, unspecified; M79.7 Fibromyalgia; G89.4 Chronic pain syndrome; D86.9 Sarcoidosis, unspecified; T40.601A Poisoning by unspecified narcotics, accidental (unintentional), initial encounter; F41.0 Panic disorder [episodic paroxysmal anxiety]; J32.9 Chronic sinusitis, unspecified; Z86.718 Personal history of other venous thrombosis and embolism; Z86.711 Personal history of pulmonary embolism; E66.9 Obesity, unspecified; Z71.3 Dietary counseling and surveillance; Z68.35 Body mass index [BMI] 35.0-35.9, adult; Z79.01 Long term (current) use of anticoagulants; Z79.51 Long term (current) use of inhaled steroids; Z90.49 Acquired absence of other specified parts of digestive tract; Z86.14 Personal history of Methicillin resistant Staphylococcus aureus infection; Z87.891 Personal history of nicotine dependence; Z79.52 Long term (current) use of systemic steroids; Z79.899 Other long term (current) drug therapy; Z88.6 Allergy status to analgesic agent; Z88.5 Allergy status to narcotic agent; Z88.8 Allergy status to other drugs, medicaments and biological substances
CPT/HCPCS: 96361; 96374; 96375; 99291; 36415; 94640 ×3; 36600; 94644; 95819; 93005; 85379; 83880; 80053; 80048; 83036; 82550; 82553; 82805 ×2; 83735 ×2; 84100; 84484; 85025 ×2; 85610; 85730; 81003; 80306; 83520 ×2; 87086 ×2; 71010; 70450; 71250; G0378 ×2; J2001; J1940 ×2; J2310 ×4; J2930 ×2; J3480; J1650 ×2; J3475; 96365; 96366; 96372; 96376

== ENCOUNTER 2016-05-17 21:56 | Emergency (ER) | payer OTHER ==
[2016-05-17] MEDS ORDERED: IPRATROPIUM-ALBUTEROL 3 ML NEB INHALATION STA (23:21)
--- NOTE | 2016-05-17 23:29 | ED ---
General Adult HPI - General Chief complaint: Shortness of Breath Stated complaint: SOB Time Seen by Provider: 05/17/16 23:09 Source: patient, RN notes reviewed, old records reviewed Mode of arrival: ambulatory Limitations: no limitations - History of Present Illness Initial comments: Chief complaint and history of present illness this is a 46-year-old female here for complaint of shortness of breath which started this morning. Patient was in hospital approximately 2 weeks ago with CHF. Patient denies any chest pain. No swollen ankles. - Related Data Home Medications Medication Instructions Recorded Confirmed Cetirizine HCl [Zyrtec] 10 mg PO DAILY PRN 07/16/14 05/17/16 Ergocalciferol [Vitamin D2 50,000 units PO TH 07/16/14 05/17/16 (DRISDOL)] Omeprazole [PriLOSEC] 20 mg PO AC-BID 07/16/14 05/17/16 Budesonide-Formot 160-4.5 Mcg 2 puff INHALATION RT-BID 08/23/15 05/17/16 [Symbicort 160-4.5 Mcg Inhaler] Enoxaparin [Lovenox] 100 mg SQ DAILY 02/20/16 05/17/16 lamoTRIgine [LaMICtal] 200 mg PO DAILY 03/22/16 05/17/16 Furosemide [Lasix] 20 mg PO DAILY 03/30/16 05/17/16 Nystatin 100,000 Unit/ml Susp 400,000 units PO QID 04/10/16 05/17/16 [Mycostatin Oral Susp] Potassium Chloride [Klor-Con 20] 20 meq PO DAILY 04/10/16 05/17/16 Pregabalin [Lyrica] 150 mg PO TID 04/10/16 05/17/16 HYDROcodone/APAP 5-325MG [[place] 1 tab PO Q6H PRN 05/01/16 05/17/16 5-325] Promethaz-Cod 6.25-10 mg/5 ml 5 ml PO Q4HR PRN 05/01/16 05/17/16 [Phenergan with Codeine] predniSONE 20 mg PO DAILY 05/01/16 05/17/16 Previous Rx's Medication Instructions Recorded Albuterol Inhaler [Ventolin Hfa 2 puff INHALATION RT-Q6H PRN #1 08/20/15 Inhaler] puff FLUoxetine HCL [PROzac] 20 mg PO DAILY #30 capsule 08/20/15 Ipratropium-Albuterol Nebulize 3 ml INHALATION RT-Q4H PRN #180 neb 08/20/15 [Duoneb 0.5 mg-3 mg/3 ml Soln] Methocarbamol [Robaxin] 750 mg PO QID PRN #40 tab 08/20/15 Metoprolol Tartrate [Lopressor] 50 mg PO BID #60 tab 08/20/15 Mirtazapine [Remeron] 30 mg PO HS #30 tablet 08/20/15 Montelukast [Singulair] 10 mg PO HS #30 tab 08/20/15 Simvastatin [Zocor] 10 mg PO HS #30 tab 08/20/15 guaiFENesin/CODEINE PHOSPHATE 5 ml PO Q6HR PRN #80 ml 02/17/16 ALPRAZolam [Xanax] 0.5 mg PO QID PRN #20 tab 04/17/16 Warfarin Sodium [Coumadin] 5 mg PO DAILY #7 tablet 04/17/16 Warfarin [Coumadin] 3 mg PO DAILY #7 tab 04/17/16 Allergies Allergy/AdvReac Type Severity Reaction Status Date / Time ketorolac tromethamine Allergy Severe Anaphylaxis Verified 05/17/16 22:19 [From Toradol] Opioids - Morphine Analogues Allergy Mild Itching Verified 05/17/16 22:19 rivaroxaban [From Xarelto] Allergy Rash/Hives Verified 05/17/16 22:19 sumatriptan [From Imitrex] Allergy Anaphylaxis Verified 05/17/16 22:19 sumatriptan succinate Allergy Anaphylaxis Verified 05/17/16 22:19 [From Imitrex] morphine AdvReac Severe Itching Verified 05/17/16 22:19 iodine AdvReac Intermediate Itching Verified 05/17/16 22:19 vancomycin AdvReac Itching Verified 05/17/16 22:19 Rich wipes AdvReac Severe Rash/Hives Uncoded 05/17/16 22:19 Review of Systems ROS Statement: Those systems with pertinent positive or pertinent negative responses have been documented in the HPI. Review of systems no complaint of visual acuity changes no headache no stiff neck no chest pain she has complaint of shortness of breath he did give Rocephin updrafts. No wheezing appreciated no abdominal pain no nausea no vomiting no diarrhea at this time back pain. No swollen extremities denies any neuro deficits. All systems were otherwise reviewed Past medical problems significant for blood disorder, CHF, DVT, hyperlipidemia, hypertension, previous WI. A PE and sarcoidosis. Other medical problems include fibromyalgia, bipolar disorder degenerative disc disease, coronary artery disease history of previous WI and ventilator dependent respiratory failure with MRSA pneumonia in 2012. She also reports having had viral meningitis 2014. Surgeries include a , cholecystectomy, heart catheterization but no stents, hernia repair. Patient reports quitting smoking 6 weeks ago. Family history DVTs, polycythemia musculoskeletal disorders. ALLERGIES multiple and on the nurse's notes ROS Other: All systems not noted in ROS Statement are negative. Past Medical History Past Medical History: Blood Disorder, Heart Failure, COPD, Deep Vein Thrombosis (DVT), Hyperlipidemia, Hypertension, Myocardial Infarction ([place]), Musculoskeletal Disorder, Pulmonary Embolus (PE) Additional Past Medical History / Comment(s): PE 2012; Sarcoidosis diagnosed in 2015 following a bronchoscopy and lung biopsy done at [facility] and she was started on predniosone and she took the therapy for almost 1 year, polycythemia, overweight, bilateral PE (2011, 2015), bilateral DVTs, fibromyalgia, bipolar disorder, degenerative disk disorder, coronary artery disease along with previous history of a WI and ventilator dependent respiratory failure with MRSA pneumonia for which the patient was hospitalized [facility] in 2012. Viral meningitis in October 2014. Last Myocardial Infarction Date:: February 15, 2013 History of Any Multi-Drug Resistant Organisms: MRSA Date of last positivie culture/infection: 2013 MDRO Source:: Lungs Past Surgical History: Section, Cholecystectomy, Heart Catheterization , Hernia Repair, Orthopedic Surgery Additional Past Surgical History / Comment(s): Lt ankle surgery,BRONCH Past Anesthesia/Blood Transfusion Reactions: Motion Sickness, Postoperative Nausea & Vomiting (PONV) Past Psychological History: Anxiety, Bipolar, Depression, Panic Disorder Additional Psychological History / Comment(s): pt. states she is on medication for depression and feels well maintained. Smoking Status: Former smoker Past Alcohol Use History: None Reported Additional Past Alcohol Use History / Comment(s): pt states started smoking in 1988 and quit 04-02-16 had been smoking 1/2 ppd Past Drug Use History: None Reported - Past Family History Father Family Medical History: Blood Disorder, Deep Vein Thrombosis (DVT) Additional Family Medical History / Comment(s): polycythemia Mother Family Medical History: Deep Vein Thrombosis (DVT), Musculoskeletal Disorder Sister(s) Family Medical History: No Reported History Brother(s) Family Medical History: No Reported History Son(s) Family Medical History: No Reported History Daughter(s) Family Medical History: No Reported History General Exam - General Exam Comments Initial Comments: General: The patient is awake and alert, appears fatigued, denies having any narcotics today. Complained of shortness of breath since this morning. Vital signs temp 97.2 pulse 84 respiratory rate 22 pulse ox 99% room air blood pressure 116/63 Eye: Pupils are equal, round and reactive to light, extra-ocular movements are intact ; there is normal conjunctiva bilaterally. No signs of icterus. Ears, nose, mouth and throat: There are moist mucous membranes and no oral lesions. Neck: The neck is supple, there is no tenderness . Cardiovascular: There is a regular rate and rhythm. No murmur, rub or gallop is appreciated. Respiratory: Lungs are clear to auscultation, respirations are non-labored, breath sounds are equal. No wheezes, stridor, rales, or rhonchi. Gastrointestinal: Soft, non-distended, non-tender abdomen without masses or organomegaly noted. There is no rebound or guarding present. No CVA tenderness. Bowel sounds are unremarkable. Back: There is no tenderness to palpation in the midline. There is no obvious deformity. No rashes noted. Skin is reddened from a tanning sanders. Musculoskeletal: Normal ROM, no tenderness, There is no pedal edema. There is no calf tenderness or swelling. Sensation intact. Pulses equal bilaterally 2+. Neurological: CN II-XII intact, There are no obvious motor or sensory deficits. Coordination appears grossly intact. Speech is normal. Skin: Skin is warm and dry and no rashes or lesions are noted. Psychiatric: Cooperative, appropriate mood & affect, normal judgment. History of bipolar disorder no complaints of depression. Limitations: no limitations Course Vital Signs 05/17/16 05/17/16 05/17/16 22:17 23:27 23:37 Temperature 97.2 F L Pulse Rate 84 80 80 Respiratory 22 Rate Blood Pressure 116/63 O2 Sat by Pulse 99 Oximetry 05/18/16 00:15 Temperature Pulse Rate Respiratory 20 Rate Blood Pressure O2 Sat by Pulse Oximetry EKG Findings - EKG Comments: EKG Findings:: EKG was done and reviewed at 2351 showing normal sinus rhythm no acute ST elevation no ectopy no ischemic changes. Rate 73 NM interval is 192 QRS [address]Tc [address] Lin. This EKG was compared to one done 2 weeks ago on 05/01/2016. They're very similar. Medical Decision Making - Medical Decision Making Medical decision making; patient's white count 6.5 hemoglobin 15 hematocrit of 45, INR 1.1, potassium 3.9. The patient's BUN is 8 creatinine 0.63 with a GFR greater than 60. Glucose 90. BMP is normal 174 troponin normal at less than 0.012. Chest x-ray was done reviewed radiologist his impression is mild pulmonary vascular congestion noted. No significant focal pneumonia or pneumothorax or pleural effusion is noted. There is mild blunting changes of the left costophrenic angle however the lateral view does not show significant pleural effusion. Cardiac silhouette size within normal limits. The osseous structures are intact. Impression mild pulmonary vascular congestion #2 no focal lung consolidation. As read by Dr. Samuel The patient be given Lasix 40 mg IV push. She received DuoNeb updraft. Patient's drug triage; positive for barbiturates and benzodiazepines. The patient did not list her Fioricet. She took 3 this evening. She's more clearheaded at this time. - Lab Data Result diagrams: 05/17/16 23:30 05/17/16 23:30 Lab Results 05/17/16 05/17/16 05/17/16 Range/Units 23:30 23:30 23:30 WBC 6.5 (3.8-10.6) k/uL RBC 4.96 (3.80-5.40) m/uL Hgb 15.1 (11.4-16.0) gm/dL Hct 45.0 (34.0-46.0) % MCV 90.7 (80.0-100.0) fL MCH 30.4 (25.0-35.0) pg MCHC 33.6 (31.0-37.0) g/dL RDW 15.0 (11.5-15.5) % Plt Count 224 (150-450) k/uL Neutrophils % (Manual) 40.0 % Lymphocytes % (Manual) 51.0 % Monocytes % (Manual) 7.0 % Eosinophils % (Manual) 2.0 % Neutrophils # (Manual) 2.6 (1.3-7.7) k/uL Lymphocytes # (Manual) 3.3 (1.0-4.8) k/uL Monocytes # (Manual) 0.5 (0-1.0) k/uL Eosinophils # (Manual) 0.1 (0-0.7) k/uL Nucleated RBCs 0 (0-0) /100 WBC Manual Slide Review Performed PT (9.0-12.0) sec INR (<1.1) APTT (22.0-30.0) sec Sodium 142 (137-145) mmol/L Potassium 3.9 (3.5-5.1) mmol/L Chloride 113 H (98-107) mmol/L Carbon Dioxide 19 L (22-30) mmol/L Anion Gap 10 mmol/L BUN 8 (7-17) mg/dL Creatinine 0.63 (0.52-1.04) mg/dL Est GFR (MDRD) Af Amer >60 (>60 ml/min/1.73 sqM) Est GFR (MDRD) Non-Af >60 (>60 ml/min/1.73 sqM) Glucose 90 (74-99) mg/dL Calcium 8.9 (8.4-10.2) mg/dL Magnesium 2.2 (1.6-2.3) mg/dL Total Bilirubin 0.6 (0.2-1.3) mg/dL AST 30 (14-36) U/L ALT 34 (9-52) U/L Alkaline Phosphatase 62 (38-126) U/L Total Creatine Kinase 43 (30-135) U/L CK-MB (CK-2) <0.2 (0.0-2.4) ng/mL CK-MB (CK-2) Rel Index Troponin I <0.012 (0.000-0.034) ng/mL NT-Pro-B Natriuret Pep pg/mL Total Protein 6.8 (6.3-8.2) g/dL Albumin 3.8 (3.5-5.0) g/dL Urine Opiates Screen (NotDetected) Ur Oxycodone Screen (NotDetected) Urine Methadone Screen (NotDetected) Ur Propoxyphene Screen (NotDetected) Ur Barbiturates Screen (NotDetected) U Tricyclic Antidepress (NotDetected) Ur Phencyclidine Scrn (NotDetected) Ur Amphetamines Screen (NotDetected) U Methamphetamines Scrn (NotDetected) U Benzodiazepines Scrn (NotDetected) Urine Cocaine Screen (NotDetected) U Marijuana (THC) Screen (NotDetected) 05/17/16 05/17/16 05/17/16 Range/Units 23:30 23:30 23:30 WBC (3.8-10.6) k/uL RBC (3.80-5.40) m/uL Hgb (11.4-16.0) gm/dL Hct (34.0-46.0) % MCV (80.0-100.0) fL MCH (25.0-35.0) pg MCHC (31.0-37.0) g/dL RDW (11.5-15.5) % Plt Count (150-450) k/uL Neutrophils % (Manual) % Lymphocytes % (Manual) % Monocytes % (Manual) % Eosinophils % (Manual) % Neutrophils # (Manual) (1.3-7.7) k/uL Lymphocytes # (Manual) (1.0-4.8) k/uL Monocytes # (Manual) (0-1.0) k/uL Eosinophils # (Manual) (0-0.7) k/uL Nucleated RBCs (0-0) /100 WBC Manual Slide Review PT 11.0 (9.0-12.0) sec INR 1.1 (<1.1) APTT 24.2 (22.0-30.0) sec Sodium (137-145) mmol/L Potassium (3.5-5.1) mmol/L Chloride (98-107) mmol/L Carbon Dioxide (22-30) mmol/L Anion Gap mmol/L BUN (7-17) mg/dL Creatinine (0.52-1.04) mg/dL Est GFR (MDRD) Af Amer (>60 ml/min/1.73 sqM) Est GFR (MDRD) Non-Af (>60 ml/min/1.73 sqM) Glucose (74-99) mg/dL Calcium (8.4-10.2) mg/dL Magnesium (1.6-2.3) mg/dL Total Bilirubin (0.2-1.3) mg/dL AST (14-36) U/L ALT (9-52) U/L Alkaline Phosphatase (38-126) U/L Total Creatine Kinase (30-135) U/L CK-MB (CK-2) (0.0-2.4) ng/mL CK-MB (CK-2) Rel Index Troponin I (0.000-0.034) ng/mL NT-Pro-B Natriuret Pep 174 pg/mL Total Protein (6.3-8.2) g/dL Albumin (3.5-5.0) g/dL Urine Opiates Screen Not Detected (NotDetected) Ur Oxycodone Screen Not Detected (NotDetected) Urine Methadone Screen Not Detected (NotDetected) Ur Propoxyphene Screen Not Detected (NotDetected) Ur Barbiturates Screen Detected H (NotDetected) U Tricyclic Antidepress Not Detected (NotDetected) Ur Phencyclidine Scrn Not Detected (NotDetected) Ur Amphetamines Screen Not Detected (NotDetected) U Methamphetamines Scrn Not Detected (NotDetected) U Benzodiazepines Scrn Detected H (NotDetected) Urine Cocaine Screen Not Detected (NotDetected) U Marijuana (THC) Screen Not Detected (NotDetected) Disposition Clinical Impression: Pulmonary congestion, COPD (chronic obstructive pulmonary disease) Disposition: HOME SELF-CARE Condition: Fair Instructions: COPD (Chronic Obstructive Pulmonary Disease) (ED) Additional Instructions: Take extra Lasix for the next 3 days. Follow-up with family physician. Time of Disposition: 00:45
[2016-05-17 23:57] LABS: Aty Lym Flag Slight; CH 31.1; CHCM 34.5; HDW 3.08; HGB 15.1 gm/dL (11.4-16.0); MCH 30.4 pg (25.0-35.0); MCHC 33.6 g/dL (31.0-37.0); MCV 90.7 fL (80.0-100.0); Mean Platelet Volume 7.3; RBC 4.96 m/uL (3.80-5.40); WBC 6.5 k/uL (3.8-10.6); WBC (Perox) 6.55
[2016-05-18 00:07] LABS: INR 1.1 (<1.1); Partial Thromboplastin Time 24.2 sec (22.0-30.0)
[2016-05-18 00:08] LABS: Anion Gap 10 mmol/L; Calcium 8.9 mg/dL (8.4-10.2); Carbon Dioxide 19 mmol/L (22-30); Chloride 113 mmol/L (98-107); Glucose 90 mg/dL (74-99); Non-African American GFR(MDRD) >60 (>60 ml/min/1.73 sqM); Sodium 142 mmol/L (137-145); Total Bilirubin 0.6 mg/dL (0.2-1.3); Total Protein 6.8 g/dL (6.3-8.2)
[2016-05-18 00:11] LABS: AST 30 U/L (14-36); Blood Urea Nitrogen 8 mg/dL (7-17); Magnesium 2.2 mg/dL (1.6-2.3); Potassium 3.9 mmol/L (3.5-5.1)
[2016-05-18 00:12] LABS: ALT 34 U/L (9-52); Alkaline Phosphatase 62 U/L (38-126)
[2016-05-18 00:15] LABS: Add Differential Manual Differential; Creatine Kinase 43 U/L (30-135)
[2016-05-18 00:18] LABS: Manual Review Performed; Nucleated Red Blood Cells 0 /100 WBC (0-0); Total Cells Counted 100
[2016-05-18 00:27] LABS: Creatine Kinase MB <0.2 ng/mL (0.0-2.4); Troponin I <0.012 ng/mL (0.000-0.034)
--- NOTE | 2016-05-18 00:36 | XR ---
EXAMINATION TYPE: XR chest 2V DATE OF EXAM: 05/18/2016 12:16 AM COMPARISON: 05/01/2016 HISTORY: Difficulty in breathing. TECHNIQUE: Frontal and lateral views of the chest are obtained. FINDINGS: Mild pulmonary vascular congestion is noted. No significant focal pneumonia or pneumothorax or pleura l effusion is noted. There is mild blunting changes of left costophrenic angle however the lateral vi ew does not show significant pleural effusion. The cardiac silhouette size is within normal limits. The osseous structures are intact. IMPRESSION: 1. Mild pulmonary vascular congestion. 2. No focal lung consolidation.
[2016-05-18] MEDS ORDERED: FUROSEMIDE 10 MG/ML 4 ML VIAL IV STA (00:42)
[2016-05-18 00:57] VITALS: BP 100/57; PULSE 78; RESP 18; TEMP 97.3
== END 2016-05-18 00:57 | disposition home or self-care (01) ==
LOC: EC 21:56
DX: J44.9 Chronic obstructive pulmonary disease, unspecified (principal); I11.0 Hypertensive heart disease with heart failure; I50.9 Heart failure, unspecified; E78.5 Hyperlipidemia, unspecified; I25.2 Old myocardial infarction; M79.7 Fibromyalgia; F31.9 Bipolar disorder, unspecified; I25.10 Atherosclerotic heart disease of native coronary artery without angina pectoris; J96.90 Respiratory failure, unspecified, unspecified whether with hypoxia or hypercapnia; Z87.891 Personal history of nicotine dependence; Z79.899 Other long term (current) drug therapy; Z79.01 Long term (current) use of anticoagulants; Z79.52 Long term (current) use of systemic steroids; Z88.8 Allergy status to other drugs, medicaments and biological substances; Z88.5 Allergy status to narcotic agent; Z91.09 Other allergy status, other than to drugs and biological substances; Z91.048 Other nonmedicinal substance allergy status; Z88.1 Allergy status to other antibiotic agents; Z91.041 Radiographic dye allergy status; Z86.711 Personal history of pulmonary embolism; Z87.01 Personal history of pneumonia (recurrent); Z86.2 Personal history of diseases of the blood and blood-forming organs and certain disorders involving the immune mechanism; Z95.818 Presence of other cardiac implants and grafts
CPT/HCPCS: 99285 ×2; 96374 ×2; 36415; 94640; 93005; 83880; 80053; 82550; 82553; 83735; 84484; 85025; 85610; 85730; 80306; 71020; J1940

== ENCOUNTER 2016-06-11 00:36 | Emergency (ER) | payer OTHER ==
[2016-06-11 00:54] VITALS: BP 134/67; PULSE 95; RESP 20; TEMP 98.8
--- NOTE | 2016-06-11 00:54 | ED ---
General Adult HPI - General Chief complaint: Alcohol Stated complaint: etoh Time Seen by Provider: 06/11/16 00:36 Source: patient, RN notes reviewed, old records reviewed Mode of arrival: EMS Limitations: no limitations - History of Present Illness Initial comments: This is a 46-year-old female ER for evaluation of shortness of breath. Patient and boyfriend were unremarkable earlier today, patient Desser from COPD, had some shortness of breath will driving home she does admit smoking injury. She had a breathing treatment and then became very agitated, states she still has some shortness of breath, boyfriend became panicked called EMS and EMS arrived a patient's house was patient that times very agitated alert possible, this time patient is calm and relaxed with no stress of breath, patient denies any complaints no chest pain like to be discharged home - Related Data Home Medications Medication Instructions Recorded Confirmed Cetirizine HCl [Zyrtec] 10 mg PO DAILY PRN 07/16/14 05/17/16 Ergocalciferol [Vitamin D2 50,000 units PO TH 07/16/14 05/17/16 (DRISDOL)] Omeprazole [PriLOSEC] 20 mg PO AC-BID 07/16/14 05/17/16 Budesonide-Formot 160-4.5 Mcg 2 puff INHALATION RT-BID 08/23/15 05/17/16 [Symbicort 160-4.5 Mcg Inhaler] Enoxaparin [Lovenox] 100 mg SQ DAILY 02/20/16 05/17/16 lamoTRIgine [LaMICtal] 200 mg PO DAILY 03/22/16 05/17/16 Furosemide [Lasix] 20 mg PO DAILY 03/30/16 05/17/16 Nystatin 100,000 Unit/ml Susp 400,000 units PO QID 04/10/16 05/17/16 [Mycostatin Oral Susp] Potassium Chloride [Klor-Con 20] 20 meq PO DAILY 04/10/16 05/17/16 Pregabalin [Lyrica] 150 mg PO TID 04/10/16 05/17/16 HYDROcodone/APAP 5-325MG [[place] 1 tab PO Q6H PRN 05/01/16 05/17/16 5-325] Promethaz-Cod 6.25-10 mg/5 ml 5 ml PO Q4HR PRN 05/01/16 05/17/16 [Phenergan with Codeine] predniSONE 20 mg PO DAILY 05/01/16 05/17/16 Previous Rx's Medication Instructions Recorded Albuterol Inhaler [Ventolin Hfa 2 puff INHALATION RT-Q6H PRN #1 08/20/15 Inhaler] puff FLUoxetine HCL [PROzac] 20 mg PO DAILY #30 capsule 08/20/15 Ipratropium-Albuterol Nebulize 3 ml INHALATION RT-Q4H PRN #180 neb 08/20/15 [Duoneb 0.5 mg-3 mg/3 ml Soln] Methocarbamol [Robaxin] 750 mg PO QID PRN #40 tab 08/20/15 Metoprolol Tartrate [Lopressor] 50 mg PO BID #60 tab 08/20/15 Mirtazapine [Remeron] 30 mg PO HS #30 tablet 08/20/15 Montelukast [Singulair] 10 mg PO HS #30 tab 08/20/15 Simvastatin [Zocor] 10 mg PO HS #30 tab 08/20/15 guaiFENesin/CODEINE PHOSPHATE 5 ml PO Q6HR PRN #80 ml 02/17/16 ALPRAZolam [Xanax] 0.5 mg PO QID PRN #20 tab 04/17/16 Warfarin Sodium [Coumadin] 5 mg PO DAILY #7 tablet 04/17/16 Warfarin [Coumadin] 3 mg PO DAILY #7 tab 04/17/16 Allergies Allergy/AdvReac Type Severity Reaction Status Date / Time ketorolac tromethamine Allergy Severe Anaphylaxis Verified 06/11/16 00:54 [From Toradol] Opioids - Morphine Analogues Allergy Mild Itching Verified 06/11/16 00:54 rivaroxaban [From Xarelto] Allergy Rash/Hives Verified 06/11/16 00:54 sumatriptan [From Imitrex] Allergy Anaphylaxis Verified 06/11/16 00:54 sumatriptan succinate Allergy Anaphylaxis Verified 06/11/16 00:54 [From Imitrex] morphine AdvReac Severe Itching Verified 06/11/16 00:54 iodine AdvReac Intermediate Itching Verified 06/11/16 00:54 vancomycin AdvReac Itching Verified 06/11/16 00:54 Rich wipes AdvReac Severe Rash/Hives Uncoded 05/17/16 22:19 Review of Systems ROS Statement: Those systems with pertinent positive or pertinent negative responses have been documented in the HPI. ROS Other: All systems not noted in ROS Statement are negative. Past Medical History Past Medical History: Blood Disorder, Heart Failure, COPD, Deep Vein Thrombosis (DVT), Hyperlipidemia, Hypertension, Myocardial Infarction (CT), Musculoskeletal Disorder, Pulmonary Embolus (PE) Additional Past Medical History / Comment(s): PE 2012; Sarcoidosis diagnosed in 2015 following a bronchoscopy and lung biopsy done at [facility] and she was started on predniosone and she took the therapy for almost 1 year, polycythemia, overweight, bilateral PE (2011, 2015), bilateral DVTs, fibromyalgia, bipolar disorder, degenerative disk disorder, coronary artery disease along with previous history of a CT and ventilator dependent respiratory failure with MRSA pneumonia for which the patient was hospitalized [facility] in 2012. Viral meningitis in October 2014. Last Myocardial Infarction Date:: February 15, 2013 History of Any Multi-Drug Resistant Organisms: MRSA Date of last positivie culture/infection: 2013 MDRO Source:: Lungs Past Surgical History: Section, Cholecystectomy, Heart Catheterization , Hernia Repair, Orthopedic Surgery Additional Past Surgical History / Comment(s): Lt ankle surgery,BRONCH Past Anesthesia/Blood Transfusion Reactions: Motion Sickness, Postoperative Nausea & Vomiting (PONV) Past Psychological History: Anxiety, Bipolar, Depression, Panic Disorder Additional Psychological History / Comment(s): pt. states she is on medication for depression and feels well maintained. Smoking Status: Former smoker Past Alcohol Use History: None Reported Additional Past Alcohol Use History / Comment(s): pt states started smoking in 1988 and quit 04-02-16 had been smoking 1/2 ppd Past Drug Use History: None Reported - Past Family History Father Family Medical History: Blood Disorder, Deep Vein Thrombosis (DVT) Additional Family Medical History / Comment(s): polycythemia Mother Family Medical History: Deep Vein Thrombosis (DVT), Musculoskeletal Disorder Sister(s) Family Medical History: No Reported History Brother(s) Family Medical History: No Reported History Son(s) Family Medical History: No Reported History Daughter(s) Family Medical History: No Reported History General Exam Limitations: no limitations General appearance: alert, in no apparent distress, anxious, in distress Head exam: Present: atraumatic, normocephalic, normal inspection Eye exam: Present: normal appearance, PERRL, EOMI. Absent: scleral icterus, conjunctival injection, periorbital swelling ENT exam: Present: normal exam, mucous membranes moist Neck exam: Present: normal inspection. Absent: tenderness, meningismus, lymphadenopathy Respiratory exam: Present: normal lung sounds bilaterally. Absent: respiratory distress, wheezes, rales, rhonchi, stridor Cardiovascular Exam: Present: regular rate, normal rhythm, normal heart sounds. Absent: systolic murmur, diastolic murmur, rubs, gallop, clicks GI/Abdominal exam: Present: soft, normal bowel sounds. Absent: distended, tenderness, guarding, rebound, rigid Extremities exam: Present: normal inspection, full ROM, normal capillary refill. Absent: tenderness, pedal edema, joint swelling, calf tenderness Back exam: Present: normal inspection Neurological exam: Present: alert, oriented X3, CN II-XII intact Psychiatric exam: Present: normal affect, normal mood Skin exam: Present: warm, dry, intact, normal color. Absent: rash Course Vital Signs 06/11/16 00:51 Temperature 98.8 F Pulse Rate 95 Respiratory 20 Rate Blood Pressure 134/67 O2 Sat by Pulse 96 Oximetry - Reevaluation(s) Reevaluation #1: 06/11/16 00:59 Patient patient is reassessed in no acute distress Medical Decision Making - Medical Decision Making 46-year-old female here for evaluation of shortness of breath. Patient had COPD attack after smoking on barcode earlier today. She currently states she feels better, she had an anxiety attack secondary to shortness of breath but again admits that she has no problems feeling like to be discharged home Disposition Clinical Impression: COPD (chronic obstructive pulmonary disease), Alcoholic intoxication, Anxiety Disposition: HOME SELF-CARE Condition: Good Instructions: COPD (Chronic Obstructive Pulmonary Disease) (ED) Referrals: Nonstaff,Physician [Primary Care Provider] - 1-2 days
== END 2016-06-11 01:10 | disposition home or self-care (01) ==
LOC: EC 00:36
DX: J44.9 Chronic obstructive pulmonary disease, unspecified (principal); F10.129 Alcohol abuse with intoxication, unspecified; F41.8 Other specified anxiety disorders; F41.0 Panic disorder [episodic paroxysmal anxiety]; I50.9 Heart failure, unspecified; I10 Essential (primary) hypertension; I25.2 Old myocardial infarction; F31.9 Bipolar disorder, unspecified; M79.7 Fibromyalgia; Z87.891 Personal history of nicotine dependence; Z79.51 Long term (current) use of inhaled steroids; Z79.52 Long term (current) use of systemic steroids; Z79.01 Long term (current) use of anticoagulants; Z79.899 Other long term (current) drug therapy; Z88.5 Allergy status to narcotic agent; Z88.1 Allergy status to other antibiotic agents; Z91.041 Radiographic dye allergy status; Z88.6 Allergy status to analgesic agent; Z86.711 Personal history of pulmonary embolism; Z86.718 Personal history of other venous thrombosis and embolism; Z87.01 Personal history of pneumonia (recurrent); Z87.09 Personal history of other diseases of the respiratory system
CPT/HCPCS: 99285

== ENCOUNTER 2016-10-02 00:01 | Emergency (ER) | payer OTHER ==
[2016-10-02 00:12] VITALS: BP 126/75; PULSE 83; RESP 18; TEMP 97.6
--- NOTE | 2016-10-02 01:44 | XR ---
EXAM: XR Right Ankle Complete, 3 or More Views CLINICAL HISTORY: Reason: Pain TECHNIQUE: Frontal, lateral and oblique views of the right ankle. COMPARISON: No relevant prior studies available. FINDINGS: Bones/joints: Unremarkable. No acute fracture. No dislocation. Soft tissues: Unremarkable. IMPRESSION: No right ankle fracture or dislocation. Please see separately dictated foot radiograph for other findings
--- NOTE | 2016-10-02 01:47 | XR ---
EXAM: XR Right Foot Complete, 3 or More Views CLINICAL HISTORY: Reason: Pain TECHNIQUE: Frontal, lateral and oblique views of the right foot. COMPARISON: No relevant prior studies available. FINDINGS: There are acute-appearing fractures of the right second and third metatarsal necks. One half shaft width of lateral displacement of both fractures. No dislocation. Chronic-appearing healed fracture deformities of the right fourth and fifth metatarsals. Plantar calcaneal spur IMPRESSION: Acute right second and third metatarsal fractures. Chronic fourth and fifth metatarsal deformities.
--- NOTE | 2016-10-02 01:51 | ED ---
Lower Extremity Injury HPI - General Chief Complaint: Extremity Injury, Lower Stated Complaint: foot injury Time Seen by Provider: 10/02/16 00:39 Source: patient, RN notes reviewed, old records reviewed Mode of arrival: wheelchair Limitations: no limitations - History of Present Illness Initial Comments: Patient is a 46-year-old female chief complaint of left foot pain after tripping and rolling. Patient reports her pain is mainly over the dorsum of the foot. Denies any recent fever or chills. Denies any peripheral paresthesias. She reports pain with flexion and extension of her toes. - Related Data Home Medications Medication Instructions Recorded Confirmed Cetirizine HCl [Zyrtec] 10 mg PO DAILY PRN 07/16/14 05/17/16 Ergocalciferol [Vitamin D2 50,000 units PO TH 07/16/14 05/17/16 (DRISDOL)] Omeprazole [PriLOSEC] 20 mg PO AC-BID 07/16/14 05/17/16 Budesonide-Formot 160-4.5 Mcg 2 puff INHALATION RT-BID 08/23/15 05/17/16 [Symbicort 160-4.5 Mcg Inhaler] Enoxaparin [Lovenox] 100 mg SQ DAILY 02/20/16 05/17/16 lamoTRIgine [LaMICtal] 200 mg PO DAILY 03/22/16 05/17/16 Furosemide [Lasix] 20 mg PO DAILY 03/30/16 05/17/16 Nystatin 100,000 Unit/ml Susp 400,000 units PO QID 04/10/16 05/17/16 [Mycostatin Oral Susp] Potassium Chloride [Klor-Con 20] 20 meq PO DAILY 04/10/16 05/17/16 Pregabalin [Lyrica] 150 mg PO TID 04/10/16 05/17/16 HYDROcodone/APAP 5-325MG [[place] 1 tab PO Q6H PRN 05/01/16 05/17/16 5-325] Promethaz-Cod 6.25-10 mg/5 ml 5 ml PO Q4HR PRN 05/01/16 05/17/16 [Phenergan with Codeine] predniSONE 20 mg PO DAILY 05/01/16 05/17/16 Previous Rx's Medication Instructions Recorded Albuterol Inhaler [Ventolin Hfa 2 puff INHALATION RT-Q6H PRN #1 08/20/15 Inhaler] puff FLUoxetine HCL [PROzac] 20 mg PO DAILY #30 capsule 08/20/15 Ipratropium-Albuterol Nebulize 3 ml INHALATION RT-Q4H PRN #180 neb 08/20/15 [Duoneb 0.5 mg-3 mg/3 ml Soln] Methocarbamol [Robaxin] 750 mg PO QID PRN #40 tab 08/20/15 Metoprolol Tartrate [Lopressor] 50 mg PO BID #60 tab 08/20/15 Mirtazapine [Remeron] 30 mg PO HS #30 tablet 08/20/15 Montelukast [Singulair] 10 mg PO HS #30 tab 08/20/15 Simvastatin [Zocor] 10 mg PO HS #30 tab 08/20/15 Codeine Phosphate/Guaifenesin 5 ml PO Q6HR PRN #80 ml 02/17/16 [Guaifenesin-Codeine Syrup] ALPRAZolam [Xanax] 0.5 mg PO QID PRN #20 tab 04/17/16 Warfarin Sodium [Coumadin] 5 mg PO DAILY #7 tablet 04/17/16 Warfarin [Coumadin] 3 mg PO DAILY #7 tab 04/17/16 HYDROcodone/APAP 10-325MG [[place] 1 tab PO Q6H PRN #15 tab 10/02/16 10-325] Allergies Allergy/AdvReac Type Severity Reaction Status Date / Time ketorolac tromethamine Allergy Severe Anaphylaxis Verified 10/02/16 00:12 [From Toradol] Opioids - Morphine Analogues Allergy Mild Itching Verified 10/02/16 00:12 rivaroxaban [From Xarelto] Allergy Rash/Hives Verified 10/02/16 00:12 sumatriptan [From Imitrex] Allergy Anaphylaxis Verified 10/02/16 00:12 sumatriptan succinate Allergy Anaphylaxis Verified 10/02/16 00:12 [From Imitrex] morphine AdvReac Severe Itching Verified 10/02/16 00:12 iodine AdvReac Intermediate Itching Verified 10/02/16 00:12 vancomycin AdvReac Itching Verified 10/02/16 00:12 Rich wipes AdvReac Severe Rash/Hives Uncoded 05/17/16 22:19 Review of Systems ROS Statement: Those systems with pertinent positive or pertinent negative responses have been documented in the HPI. ROS Other: All systems not noted in ROS Statement are negative. Past Medical History Past Medical History: Blood Disorder, Heart Failure, COPD, Deep Vein Thrombosis (DVT), Hyperlipidemia, Hypertension, Myocardial Infarction (NM), Musculoskeletal Disorder, Pulmonary Embolus (PE) Additional Past Medical History / Comment(s): PE 2012; Sarcoidosis diagnosed in 2015 following a bronchoscopy and lung biopsy done at [facility] and she was started on predniosone and she took the therapy for almost 1 year, polycythemia, overweight, bilateral PE (2011, 2015), bilateral DVTs, fibromyalgia, bipolar disorder, degenerative disk disorder, coronary artery disease along with previous history of a NM and ventilator dependent respiratory failure with MRSA pneumonia for which the patient was hospitalized [facility] in 2012. Viral meningitis in October 2014. Last Myocardial Infarction Date:: February 15, 2013 History of Any Multi-Drug Resistant Organisms: MRSA Date of last positivie culture/infection: 2013 MDRO Source:: Lungs Past Surgical History: Section, Cholecystectomy, Heart Catheterization , Hernia Repair, Orthopedic Surgery Additional Past Surgical History / Comment(s): Lt ankle surgery,BRONCH Past Anesthesia/Blood Transfusion Reactions: Motion Sickness, Postoperative Nausea & Vomiting (PONV) Past Psychological History: Anxiety, Bipolar, Depression, Panic Disorder Smoking Status: Former smoker Past Alcohol Use History: None Reported Past Drug Use History: None Reported - Past Family History Father Family Medical History: Blood Disorder, Deep Vein Thrombosis (DVT) Additional Family Medical History / Comment(s): polycythemia Mother Family Medical History: Deep Vein Thrombosis (DVT), Musculoskeletal Disorder Sister(s) Family Medical History: No Reported History Brother(s) Family Medical History: No Reported History Son(s) Family Medical History: No Reported History Daughter(s) Family Medical History: No Reported History General Exam Limitations: no limitations General appearance: alert, in no apparent distress Head exam: Present: atraumatic, normocephalic, normal inspection Eye exam: Present: normal appearance ENT exam: Present: normal exam, mucous membranes moist Neck exam: Present: normal inspection. Absent: tenderness, meningismus, lymphadenopathy Respiratory exam: Present: normal lung sounds bilaterally. Absent: respiratory distress, wheezes, rales, rhonchi, stridor Cardiovascular Exam: Present: regular rate, normal rhythm, normal heart sounds. Absent: systolic murmur, diastolic murmur, rubs, gallop, clicks GI/Abdominal exam: Present: soft, normal bowel sounds. Absent: distended, tenderness, guarding, rebound, rigid Extremities exam: Present: normal inspection, full ROM, normal capillary refill. Absent: tenderness, pedal edema, joint swelling, calf tenderness Back exam: Present: normal inspection Neurological exam: Present: alert, oriented X3, CN II-XII intact Psychiatric exam: Present: normal affect, normal mood Skin exam: Present: warm, dry, intact, normal color. Absent: rash Course Vital Signs 10/02/16 00:10 Temperature 97.6 F Pulse Rate 83 Respiratory 18 Rate Blood Pressure 126/75 O2 Sat by Pulse 100 Oximetry Disposition Clinical Impression: Metatarsal bone fracture Disposition: HOME SELF-CARE Condition: Good Instructions: Foot Fracture in Adults (ED) Additional Instructions: Patient needs to rest, ice, elevate extremity. Patient needs to ambulate only with crutches. Nonweightbearing. Follow-up with orthopedic physician. Prescriptions: HYDROcodone/APAP 10-325MG [[place] 10-325] 1 tab PO Q6H PRN #15 tab PRN Reason: Pain Referrals: Liz Koch MD [Primary Care Provider] - 1-2 days Harrison Briscoe DO [Doctor of Osteopathic Medicine] - 1-2 days Time of Disposition: 02:21
[2016-10-02] MEDS ORDERED: HYDROmorphone 1 MG/ML 1 ML SYRINGE IM STA (02:19)
== END 2016-10-02 02:28 | disposition home or self-care (01) ==
LOC: EC 00:01
DX: S92.321A Displaced fracture of second metatarsal bone, right foot, initial encounter for closed fracture (principal); S92.331A Displaced fracture of third metatarsal bone, right foot, initial encounter for closed fracture; F31.9 Bipolar disorder, unspecified; F41.0 Panic disorder [episodic paroxysmal anxiety]; I50.9 Heart failure, unspecified; I25.2 Old myocardial infarction; I10 Essential (primary) hypertension; Z87.891 Personal history of nicotine dependence; Z79.52 Long term (current) use of systemic steroids; Z79.899 Other long term (current) drug therapy; Z88.6 Allergy status to analgesic agent; Z88.5 Allergy status to narcotic agent; Z88.8 Allergy status to other drugs, medicaments and biological substances; Z88.1 Allergy status to other antibiotic agents; Z91.048 Other nonmedicinal substance allergy status; X58.XXXA Exposure to other specified factors, initial encounter
CPT/HCPCS: 73610; 73630; 99284; 96372; J1170

== ENCOUNTER → 2016-10-10 | Outpatient (CLI) | payer OTHER ==
--- NOTE | 2016-10-10 19:15 | US ---
EXAMINATION TYPE: US venous doppler duplex LE LT DATE OF EXAM: 10/10/2016 6:31 PM COMPARISON: Prior in PACS CLINICAL HISTORY: M79.89 LLE Swelling, Hx Pulmonary Embolism. SIDE PERFORMED: Left TECHNIQUE: The lower extremity deep venous system is examined utilizing real time linear array sonog nisha with graded compression, doppler sonography and color-flow sonography. VESSELS IMAGED: External Iliac Vein (EIV) Common Femoral Vein Deep Femoral Vein Greater Saphenous Vein * Femoral Vein Popliteal Vein Small Saphenous Vein * Proximal Calf Veins (* superficial vessels) Left Leg: Negative for DVT IMPRESSION: No evident deep venous thrombosis at or above the left knee
== END | disposition home or self-care (01) ==
LOC: RADUSMAIN 18:08
PROVIDERS: ATTEND Family Medicine
DX: M79.89 Other specified soft tissue disorders (principal); Z86.718 Personal history of other venous thrombosis and embolism; Z86.711 Personal history of pulmonary embolism

== ENCOUNTER 2016-10-18 15:26 | Observation (INO) | payer OTHER ==
[2016-10-18] MEDS ORDERED: SODIUM CHLORIDE 0.9% 1,000 ML IV STA ×2 (15:43→16:24)
[2016-10-18] MEDS ORDERED: SODIUM CHLORIDE 0.9% 500 ML IV STA ×2 (15:43→16:24)
--- NOTE | 2016-10-18 15:45 | ED ---
General Adult HPI - General Chief complaint: Syncope Stated complaint: Syncope Time Seen by Provider: 10/18/16 15:42 Source: patient, RN notes reviewed, old records reviewed Mode of arrival: wheelchair Limitations: no limitations - History of Present Illness Initial comments: This is a 46-year-old female ER for evaluation of syncope. Patient has a syncopal event last night and another syncopal event today with unknown down time. Patient does have numbness and feeling throughout her fingers and extremities. Denies headache chest breath denies abdominal pain, does have nausea vomiting with diarrhea. Denies fevers. No prior history of syncope. The patient does have significant medical history also has history of DVT, again no chest pain shortness of breath or abdominal pain - Related Data Home Medications Medication Instructions Recorded Confirmed Cetirizine HCl [Zyrtec] 10 mg PO DAILY PRN 07/16/14 05/17/16 Ergocalciferol [Vitamin D2 50,000 units PO TH 07/16/14 05/17/16 (DRISDOL)] Omeprazole [PriLOSEC] 20 mg PO AC-BID 07/16/14 05/17/16 Budesonide-Formot 160-4.5 Mcg 2 puff INHALATION RT-BID 08/23/15 05/17/16 [Symbicort 160-4.5 Mcg Inhaler] Enoxaparin [Lovenox] 100 mg SQ DAILY 02/20/16 05/17/16 lamoTRIgine [LaMICtal] 200 mg PO DAILY 03/22/16 05/17/16 Furosemide [Lasix] 20 mg PO DAILY 03/30/16 05/17/16 Nystatin 100,000 Unit/ml Susp 400,000 units PO QID 04/10/16 05/17/16 [Mycostatin Oral Susp] Potassium Chloride [Klor-Con 20] 20 meq PO DAILY 04/10/16 05/17/16 Pregabalin [Lyrica] 150 mg PO TID 04/10/16 05/17/16 HYDROcodone/APAP 5-325MG [[place] 1 tab PO Q6H PRN 05/01/16 05/17/16 5-325] Promethaz-Cod 6.25-10 mg/5 ml 5 ml PO Q4HR PRN 05/01/16 05/17/16 [Phenergan with Codeine] predniSONE 20 mg PO DAILY 05/01/16 05/17/16 Previous Rx's Medication Instructions Recorded Albuterol Inhaler [Ventolin Hfa 2 puff INHALATION RT-Q6H PRN #1 08/20/15 Inhaler] puff FLUoxetine HCL [PROzac] 20 mg PO DAILY #30 capsule 08/20/15 Ipratropium-Albuterol Nebulize 3 ml INHALATION RT-Q4H PRN #180 neb 08/20/15 [Duoneb 0.5 mg-3 mg/3 ml Soln] Methocarbamol [Robaxin] 750 mg PO QID PRN #40 tab 08/20/15 Metoprolol Tartrate [Lopressor] 50 mg PO BID #60 tab 08/20/15 Mirtazapine [Remeron] 30 mg PO HS #30 tablet 08/20/15 Montelukast [Singulair] 10 mg PO HS #30 tab 08/20/15 Simvastatin [Zocor] 10 mg PO HS #30 tab 08/20/15 Codeine Phosphate/Guaifenesin 5 ml PO Q6HR PRN #80 ml 02/17/16 [Guaifenesin-Codeine Syrup] ALPRAZolam [Xanax] 0.5 mg PO QID PRN #20 tab 04/17/16 Warfarin Sodium [Coumadin] 5 mg PO DAILY #7 tablet 04/17/16 Warfarin [Coumadin] 3 mg PO DAILY #7 tab 04/17/16 HYDROcodone/APAP 10-325MG [[place] 1 tab PO Q6H PRN #15 tab 10/02/16 10-325] Allergies Allergy/AdvReac Type Severity Reaction Status Date / Time ketorolac tromethamine Allergy Severe Anaphylaxis Verified 10/18/16 16:22 [From Toradol] Opioids - Morphine Analogues Allergy Mild Itching Verified 10/18/16 16:22 rivaroxaban [From Xarelto] Allergy Rash/Hives Verified 10/18/16 16:22 sumatriptan [From Imitrex] Allergy Anaphylaxis Verified 10/18/16 16:22 sumatriptan succinate Allergy Anaphylaxis Verified 10/18/16 16:22 [From Imitrex] morphine AdvReac Severe Itching Verified 10/18/16 16:22 iodine AdvReac Intermediate Itching Verified 07/19/17 16:22 vancomycin AdvReac Itching Verified 10/18/16 16:22 Rich wipes AdvReac Severe Rash/Hives Uncoded 10/18/16 15:41 Review of Systems ROS Statement: Those systems with pertinent positive or pertinent negative responses have been documented in the HPI. ROS Other: All systems not noted in ROS Statement are negative. Past Medical History Past Medical History: Blood Disorder, Heart Failure, COPD, Deep Vein Thrombosis (DVT), Hyperlipidemia, Hypertension, Myocardial Infarction (DC), Musculoskeletal Disorder, Pulmonary Embolus (PE) Additional Past Medical History / Comment(s): PE 2012; Sarcoidosis diagnosed in 2015 following a bronchoscopy and lung biopsy done at [facility] and she was started on predniosone and she took the therapy for almost 1 year, polycythemia, overweight, bilateral PE (2011, 2015), bilateral DVTs, fibromyalgia, bipolar disorder, degenerative disk disorder, coronary artery disease along with previous history of a DC and ventilator dependent respiratory failure with MRSA pneumonia for which the patient was hospitalized [facility] in 2012. Viral meningitis in October 2014. Last Myocardial Infarction Date:: February 15, 2013 History of Any Multi-Drug Resistant Organisms: MRSA Date of last positivie culture/infection: 2013 MDRO Source:: Lungs Past Surgical History: Section, Cholecystectomy, Heart Catheterization , Hernia Repair, Orthopedic Surgery Additional Past Surgical History / Comment(s): Lt ankle surgery,BRONCH Past Anesthesia/Blood Transfusion Reactions: Motion Sickness, Postoperative Nausea & Vomiting (PONV) Past Psychological History: Anxiety, Bipolar, Depression, Panic Disorder Smoking Status: Former smoker Past Alcohol Use History: None Reported Past Drug Use History: None Reported - Past Family History Father Family Medical History: Blood Disorder, Deep Vein Thrombosis (DVT) Additional Family Medical History / Comment(s): polycythemia Mother Family Medical History: Deep Vein Thrombosis (DVT), Musculoskeletal Disorder Sister(s) Family Medical History: No Reported History Brother(s) Family Medical History: No Reported History Son(s) Family Medical History: No Reported History Daughter(s) Family Medical History: No Reported History General Exam Limitations: no limitations General appearance: alert, in no apparent distress Head exam: Present: atraumatic, normocephalic, normal inspection Eye exam: Present: normal appearance, PERRL, EOMI. Absent: scleral icterus, conjunctival injection, periorbital swelling ENT exam: Present: normal exam, mucous membranes moist Neck exam: Present: normal inspection. Absent: tenderness, meningismus, lymphadenopathy Respiratory exam: Present: normal lung sounds bilaterally. Absent: respiratory distress, wheezes, rales, rhonchi, stridor Cardiovascular Exam: Present: regular rate, normal rhythm, normal heart sounds. Absent: systolic murmur, diastolic murmur, rubs, gallop, clicks GI/Abdominal exam: Present: soft, normal bowel sounds. Absent: distended, tenderness, guarding, rebound, rigid Extremities exam: Present: normal inspection, full ROM, normal capillary refill. Absent: tenderness, pedal edema, joint swelling, calf tenderness Back exam: Present: normal inspection Neurological exam: Present: alert, oriented X3, CN II-XII intact Psychiatric exam: Present: normal affect, normal mood Skin exam: Present: warm, dry, intact, normal color. Absent: rash Course Vital Signs 10/18/16 15:37 Temperature 97.7 F Pulse Rate 85 Respiratory 16 Rate Blood Pressure 115/64 O2 Sat by Pulse 97 Oximetry EKG Findings - EKG Comments: EKG Findings:: EKG shows normal sinus rhythm rate of 83, WA 150, QRS 76, QTC 441 Medical Decision Making - Lab Data Result diagrams: 10/18/16 16:10 Lab Results 10/18/16 Range/Units 16:10 WBC 9.0 (3.8-10.6) k/uL RBC 4.66 (3.80-5.40) m/uL Hgb 15.0 (11.4-16.0) gm/dL Hct 43.3 (34.0-46.0) % MCV 92.9 (80.0-100.0) fL MCH 32.2 (25.0-35.0) pg MCHC 34.7 (31.0-37.0) g/dL RDW 14.1 (11.5-15.5) % Plt Count 296 (150-450) k/uL Neutrophils % 60 % Lymphocytes % 27 % Monocytes % 7 % Eosinophils % 3 % Basophils % 1 % Neutrophils # 5.4 (1.3-7.7) k/uL Lymphocytes # 2.4 (1.0-4.8) k/uL Monocytes # 0.6 (0-1.0) k/uL Eosinophils # 0.3 (0-0.7) k/uL Basophils # 0.1 (0-0.2) k/uL Disposition Clinical Impression: Syncope and collapse Disposition: ADMITTED IP TO THIS HOSP Condition: Fair Referrals: Liz Koch MD [Primary Care Provider] - 1-2 days
[2016-10-18] MEDS ORDERED: NITROGLYCERIN SL TABS 0.4 MG TAB SUBLINGUAL PRN (16:15)
[2016-10-18 16:19] LABS: Basophils # (A) 0.1 k/uL (0-0.2); Basophils % (A) 1 %; CH 32.5; CHCM 35.2; Eosinophils # (A) 0.3 k/uL (0-0.7); Eosinophils % (A) 3 %; HCT 43.3 % (34.0-46.0); HDW 2.82; Luc # (Auto) 0.22; Luc % (Auto) 3; Lymphocytes # (A) 2.4 k/uL (1.0-4.8); Lymphocytes % (A) 27 %; MCH 32.2 pg (25.0-35.0); MCHC 34.7 g/dL (31.0-37.0); MCV 92.9 fL (80.0-100.0); Mean Platelet Volume 7.1; Monocytes # (A) 0.6 k/uL (0-1.0); Monocytes % (A) 7 %; Neutrophils # (A) 5.4 k/uL (1.3-7.7); Neutrophils % (A) 60 %; RBC 4.66 m/uL (3.80-5.40); RDW 14.1 % (11.5-15.5); WBC (Perox) 9.35
[2016-10-18] MEDS ORDERED: FAMOTIDINE 20 MG/2 ML VIAL IV STA (16:23)
[2016-10-18] MEDS ORDERED: diphenhydrAMINE 50 MG/ML 1 ML VIAL IVP STA (16:23)
[2016-10-18] MEDS ORDERED: methylPREDNISolone SOD SUCCI 125 MG/2 ML VIAL IV STA (16:23)
[2016-10-18] MEDS ORDERED: RX INFO: IV CONTRAST WAS GIVEN 1 EACH MISC MISCELLANE PRN (16:23)
[2016-10-18 16:32] LABS: Prothrombin Time 10.2 sec (9.0-12.0)
[2016-10-18 16:34] LABS: ALT 63 U/L (9-52); AST 44 U/L (14-36); Alkaline Phosphatase 80 U/L (38-126); Anion Gap 13 mmol/L; Blood Urea Nitrogen 10 mg/dL (7-17); Carbon Dioxide 21 mmol/L (22-30); Chloride 107 mmol/L (98-107); Glucose 129 mg/dL (74-99); Non-African American GFR(MDRD) >60 (>60 ml/min/1.73 sqM); Phosphorous 3.6 mg/dL (2.5-4.5); Potassium 3.6 mmol/L (3.5-5.1); Sodium 141 mmol/L (137-145); Total Bilirubin 0.5 mg/dL (0.2-1.3); Total Protein 7.1 g/dL (6.3-8.2)
[2016-10-18 16:38] LABS: Creatine Kinase 61 U/L (30-135)
[2016-10-18 16:51] LABS: Creatine Kinase MB 0.6 ng/mL (0.0-2.4); Troponin I <0.012 ng/mL (0.000-0.034)
--- NOTE | 2016-10-18 16:57 | CT ---
EXAMINATION TYPE: CT brain wo con DATE OF EXAM: 10/18/2016 COMPARISON: 05/01/2016 HISTORY: Syncope CT DLP: 1091 mGycm. Automated Exposure Control for Dose Reduction was Utilized. TECHNIQUE: CT scan of the head is performed without contrast. FINDINGS: Ventricles of normal size. There is no mass effect nor midline shift. There is no sign of i ntracranial hemorrhage. The calvarium is intact. IMPRESSION: Negative CT scan of the brain. No change.
--- NOTE | 2016-10-18 17:07 | US ---
EXAMINATION TYPE: US venous doppler duplex LE RT DATE OF EXAM: 10/18/2016 4:48 PM COMPARISON: NONE CLINICAL HISTORY: Pain. Broken right foot, redness/warmness right foot and lower leg. History of DVT SIDE PERFORMED: Right TECHNIQUE: The lower extremity deep venous system is examined utilizing real time linear array sonog nisha with graded compression, doppler sonography and color-flow sonography. VESSELS IMAGED: External Iliac Vein (EIV) Common Femoral Vein Deep Femoral Vein Greater Saphenous Vein * Femoral Vein Popliteal Vein Small Saphenous Vein * Proximal Calf Veins (* superficial vessels) Right Leg: No evidence of DVT IMPRESSION: Negative exam. No evidence of deep venous thrombosis in the right leg.
[2016-10-18] MEDS: SODIUM CHLORIDE 0.9% 1,000 ML IV SCH (17:08)
--- NOTE | 2016-10-18 17:09 | XR ---
EXAMINATION TYPE: XR chest 2V DATE OF EXAM: 10/18/2016 COMPARISON: 05/18/2016 HISTORY: Syncope TECHNIQUE: Frontal and lateral views of the chest are obtained. FINDINGS: There is slight blunting of left costophrenic angle on the frontal view. There is no sign of pleural effusion. Heart and mediastinum are normal. There is no heart failure. There are chest preston ds. IMPRESSION: Minimal pleural scarring at the lateral left lung base without change compared to old ex am. Normal heart.
[2016-10-18] MEDS ORDERED: ONDANSETRON 4 MG/2 ML VIAL IVP STA (17:28)
[2016-10-18] MEDS ORDERED: HYDROcodone/APAP 5-325MG 1 EACH TAB PO STA ×2 (17:28→19:10)
[2016-10-18 17:33] LABS: Acetaminophen <10.0 ug/mL; Alcohol <10 mg/dL; Salicylate <1.0 mg/dL
[2016-10-18 18:00] LABS: Appearance,Urine Clear (Clear); Bilirubin,Urine Negative (Negative); Glucose,Urine (UA) Negative (Negative); Ketones,Urine Negative (Negative); Leukocyte Esterase,Urine Negative (Negative); Nitrite,Urine Negative (Negative); Protein,Urine Negative (Negative); UA Billing (MACRO vs. MICRO) CHEM; Urobilinogen,Urine <2.0 mg/dL (<2.0)
--- NOTE | 2016-10-18 19:06 | CT ---
EXAMINATION TYPE: CT angio chest DATE OF EXAM: 10/18/2016 5:48 PM COMPARISON: 04/19/2016 HISTORY: Syncopal episode CT DLP: 720.6 mGycm Automated exposure control for dose reduction was used. CONTRAST: CTA scan of the thorax is performed with IV Contrast, patient injected with 100 mL of Omnipaque 350, pulmonary embolism protocol. There are 3-D post processed images.. FINDINGS: There is mild pleural thickening at the left lateral and posterior lung base. There is no definite pl eural effusion. There is no pericardial effusion. I see no filling defects in the pulmonary arteries. There are no hilar masses. There is no mediastina l adenopathy. The bony thorax is intact. There is coarsening of the interstitial pulmonary markings i n the mid and lower lung diana. There is no evidence of a pulmonary mass. IMPRESSION: NO EVIDENCE OF PULMONARY EMBOLISM. INTERSTITIAL PULMONARY INFILTRATES AND PLEURAL REACTION ABOVE. THIS APPEARS IMPROVED SLIGHTLY COMPARED TO THE OLD CT SCAN OF 02/16/2016. THIS IS ALSO IMPROVED SIGNI FICANTLY COMPARED TO 04/19/2016 CT SCAN.
[2016-10-18 20:52] LABS: Glucose,Whole Blood 118 mg/dL (75-99)
[2016-10-18 21:44] VITALS: BMI 37.2
[2016-10-18] MEDS ORDERED: LORATADINE 10 MG TAB PO PRN (22:29)
[2016-10-18] MEDS ORDERED: ONDANSETRON 4 MG TAB PO PRN (22:29)
[2016-10-18] MEDS ORDERED: BUTALB/APAP/CAFF 50-325-40MG TAB PO PRN (22:29)
[2016-10-18 22:51] LABS: Creatine Kinase 58 U/L (30-135)
[2016-10-18 23:04] LABS: Creatine Kinase MB 0.6 ng/mL (0.0-2.4); Troponin I <0.012 ng/mL (0.000-0.034)
[2016-10-19] MEDS: HYDROcodone/APAP 10-325MG 1 EACH TAB PO PRN ×3 (01:40→13:55)
[2016-10-19] MEDS: ALBUTEROL NEBULIZED 2.5 MG/3 ML INHALATION PRN ×3 (02:11→11:43)
[2016-10-19] MEDS ORDERED: HYDROmorphone 1 MG/ML 1 ML SYRINGE IVP STA ×2 (03:05→13:49)
[2016-10-19 05:50] LABS: Basophils % (A) 0 %; CH 32.1; CHCM 33.8; Eosinophils # (A) 0.1 k/uL (0-0.7); Eosinophils % (A) 1 %; HCT 40.5 % (34.0-46.0); HDW 2.79; HGB 14.1 gm/dL (11.4-16.0); Luc % (Auto) 1; Lymphocytes # (A) 1.1 k/uL (1.0-4.8); Lymphocytes % (A) 10 %; MCH 33.3 pg (25.0-35.0); MCHC 34.9 g/dL (31.0-37.0); MCV 95.4 fL (80.0-100.0); Mean Platelet Volume 7.4; Monocytes # (A) 0.4 k/uL (0-1.0); Monocytes % (A) 3 %; Neutrophils # (A) 9.3 k/uL (1.3-7.7); Neutrophils % (A) 85 %; RBC 4.25 m/uL (3.80-5.40); RDW 13.9 % (11.5-15.5); WBC (Perox) 11.28
[2016-10-19 06:06] LABS: Anion Gap 8 mmol/L; Blood Urea Nitrogen 13 mg/dL (7-17); Calcium 8.8 mg/dL (8.4-10.2); Carbon Dioxide 20 mmol/L (22-30); Chloride 112 mmol/L (98-107); Cholesterol 224 mg/dL (<200); Glucose 148 mg/dL (74-99); HDL Cholesterol 44 mg/dL (40-60); Non-African American GFR(MDRD) >60 (>60 ml/min/1.73 sqM); Potassium 4.1 mmol/L (3.5-5.1); Sodium 140 mmol/L (137-145)
[2016-10-19 06:09] LABS: Creatine Kinase 40 U/L (30-135)
[2016-10-19 06:22] LABS: Creatine Kinase MB 0.4 ng/mL (0.0-2.4); Troponin I <0.012 ng/mL (0.000-0.034)
[2016-10-19] MEDS: SODIUM CHLORIDE 0.9% 1,000 ML IV SCH (06:29)
[2016-10-19] MEDS ORDERED: SYMBICORT 160-4.5 MCG INHALER INHALATION SCH (08:00)
[2016-10-19] MEDS ORDERED: lamoTRIgine 100 MG TAB PO SCH (09:00)
[2016-10-19] MEDS ORDERED: ASPIRIN 325 MG TAB PO SCH (09:00)
[2016-10-19] MEDS ORDERED: FUROSEMIDE 20 MG TAB PO SCH (09:00)
[2016-10-19] MEDS ORDERED: METOPROLOL TARTRATE 50 MG TAB PO SCH (09:00)
[2016-10-19] MEDS ORDERED: ERGOCALCIFEROL 50,000 UNIT CAP PO SCH (09:00)
[2016-10-19] MEDS ORDERED: POTASSIUM CHLORIDE ER 10 MEQ TAB.ER.PRT PO SCH (09:00)
[2016-10-19] MEDS ORDERED: FLUoxetine HCL 20 MG CAP PO SCH (09:00)
[2016-10-19] MEDS ORDERED: BACLOFEN 10 MG TAB PO SCH (09:00)
[2016-10-19] MEDS ORDERED: BUMETANIDE 1 MG TAB PO SCH (09:00)
[2016-10-19] MEDS ORDERED: PREGABALIN 100 MG CAP PO SCH (09:00)
[2016-10-19] MEDS ORDERED: ENOXAPARIN 40 MG/0.4 ML SYRINGE SQ SCH (09:00)
--- NOTE | 2016-10-19 10:20 | ECHOF ---
Referral Reason:syncope MEASUREMENTS -------- HEIGHT: 170.2 cm WEIGHT: 104.3 kg BP: 109/56 IVSd: 1.0 cm (0.6 - 1.1) LVIDd: 3.2 cm (3.9 - 5.3) LVPWd: 1.0 cm (0.6 - 1.1) IVSs: 1.3 cm LVIDs: 2.1 cm LVPWs: 0.8 cm LAESV Index (A-L): 31.41 ml/m Ao Diam: 2.9 cm (2.0 - 3.7) AV Cusp: 1.9 cm (1.5 - 2.6) LA Diam: 4.5 cm (2.7 - 3.8) MV EXCURSION: 21.518 mm (> 18.000) MV EF SLOPE: 125 mm/s (70 - 150) EPSS: 0.3 cm MV E Aris: 0.99 m/s MV DecT: 263 ms MV A Aris: 1.07 m/s MV E/A Ratio: 0.93 RAP: 5.00 mmHg RVSP: 25.41 mmHg FINDINGS -------- Sinus rhythm. This was a technically adequate study. LV size, wall thickness and systolic function are normal, with an EF greater than 55%. The right ventricle is normal in size. LA is midly dilated 29-33ml/m2. The right atrial size is normal. The aortic valve is trileaflet, and appears structurally normal. No aortic stenosis or regurgitation. The mitral valve is normal. Mild mitral regurgitation is present. Mild tricuspid regurgitation present. There is no evidence of pulmonary hypertension. The right ventricular systolic pressure, as measured by Doppler, is 25.41mmHg. There is no pulmonic regurgitation present. The aortic root size is normal. There is no pericardial effusion. CONCLUSIONS -------- 1. Sinus rhythm. 2. There is no pericardial effusion. 3. This was a technically adequate study. 4. LV size, wall thickness and systolic function are normal, with an EF greater than 55%. 5. LA is midly dilated 29-33ml/m2. 6. The aortic valve is trileaflet, and appears structurally normal. No aortic stenosis or regurgitation. 7. Mild mitral regurgitation is present. 8. Mild tricuspid regurgitation present. 9. There is no evidence of pulmonary hypertension. 10. There is no pulmonic regurgitation present. [employer]: Lakshmi Deutsch RDCS
[2016-10-19 11:13] VITALS: RESP 22; TEMP 97.1
--- NOTE | 2016-10-19 11:39 | P.CRDCN ---
History of Present Illness Consult date: 10/19/16 Reason for Consult (text): syncope Chief complaint: syncope History of present illness: A 6-year-old female patient with a known history of PEs and DVTs in the past, respiratory failure, pneumonia, polycythemia and possible history of sarcoidosis which patient was told at [facility] that she has, no reports to confirm. She presented to the hospital after having 2 episodes of syncope. Both episodes were preceded by not feeling well, nausea. She also complained of a 13 pound weight gain in one week. Her d-dimer was elevated on admission however CTA of the chest and a venous Doppler of the right lower extremity were both negative. Computed tomography scan of the brain showed no mass effect or midline shift, no sign of intracranial hemorrhage. Chest x-ray showed minimal pleural scarring at the lateral left lung base without change compared to old exam. Laboratory values showed a proBNP of 187, troponin less than 0.0123. Upon examination, patient is resting comfortably in bed. Denies further complaints of nausea or syncope. Does complain of some shortness of breath and edema. There are no orthostatic vital signs documented at this time. 2-D echo with Doppler was obtained this morning that showed normal LV systolic function with an ejection fraction greater than 55%, no evidence of pulmonary hypertension. Past Medical History Past Medical History: Blood Disorder, Heart Failure, COPD, Deep Vein Thrombosis (DVT), Hyperlipidemia, Hypertension, Myocardial Infarction ([place]), Musculoskeletal Disorder, Pneumonia, Pulmonary Embolus (PE) Additional Past Medical History / Comment(s): PE 2012; Sarcoidosis diagnosed in 2015 following a bronchoscopy and lung biopsy done at [facility] and she was started on predniosone and she took the therapy for almost 1 year, polycythemia, overweight, bilateral PE (2011, 2015), bilateral DVTs, fibromyalgia, bipolar disorder, degenerative disk disorder, coronary artery disease along with previous history of a [place] and ventilator dependent respiratory failure with MRSA pneumonia for which the patient was hospitalized [facility] in 2012. Viral meningitis in October 2014. Last Myocardial Infarction Date:: February 15, 2013 History of Any Multi-Drug Resistant Organisms: MRSA Date of last positivie culture/infection: 2013 MDRO Source:: Lungs Past Surgical History: Section, Cholecystectomy, Heart Catheterization , Hernia Repair, Orthopedic Surgery Additional Past Surgical History / Comment(s): Lt ankle surgery,BRONCH Past Anesthesia/Blood Transfusion Reactions: Motion Sickness, Postoperative Nausea & Vomiting (PONV) Past Psychological History: Anxiety, Bipolar, Depression, Panic Disorder Additional Psychological History / Comment(s): pt. states she is on medication for depression and feels well maintained. Smoking Status: Former smoker Past Alcohol Use History: None Reported Past Drug Use History: None Reported - Past Family History Father Family Medical History: Blood Disorder, Congestive Heart Failure (CHF), CVA/TIA , Deep Vein Thrombosis (DVT), Myocardial Infarction ([place]) Additional Family Medical History / Comment(s): polycythemia Mother Family Medical History: Congestive Heart Failure (CHF), Diabetes Mellitus, Deep Vein Thrombosis (DVT), Myocardial Infarction ([place]), Musculoskeletal Disorder Sister(s) Family Medical History: No Reported History Brother(s) Family Medical History: No Reported History Son(s) Family Medical History: No Reported History Daughter(s) Family Medical History: No Reported History Medications and Allergies Home Medications Medication Instructions Recorded Confirmed Type Cetirizine HCl [Zyrtec] 10 mg PO DAILY PRN 07/16/14 10/18/16 History Ergocalciferol [Vitamin D2 50,000 units PO TH 07/16/14 10/18/16 History (DRISDOL)] Budesonide-Formot 160-4.5 Mcg 2 puff INHALATION RT-BID 08/23/15 10/18/16 History [Symbicort 160-4.5 Mcg Inhaler] lamoTRIgine [LaMICtal] 200 mg PO DAILY 03/22/16 10/18/16 History Furosemide [Lasix] 20 mg PO DAILY 03/30/16 10/18/16 History Baclofen [Lioresal] 20 mg PO TID 10/18/16 10/18/16 History Bumetanide 2 mg PO DAILY 10/18/16 10/18/16 History Butalb/APAP/Caff 50-325-40Mg 1 tab PO Q6H PRN 10/18/16 10/18/16 History [Fioricet 50-325-40] Ondansetron HCl [Zofran] 4 mg PO DAILY PRN 10/18/16 10/18/16 History Potassium Chloride ER [K-Dur 10] 20 meq PO DAILY 10/18/16 10/18/16 History Pregabalin [Lyrica] 100 mg PO BID 10/18/16 10/18/16 History Allergies Allergy/AdvReac Type Severity Reaction Status Date / Time ketorolac tromethamine Allergy Severe Anaphylaxis Verified 10/18/16 16:22 [From Toradol] Opioids - Morphine Analogues Allergy Mild Itching Verified 10/18/16 16:22 rivaroxaban [From Xarelto] Allergy Rash/Hives Verified 10/18/16 16:22 sumatriptan [From Imitrex] Allergy Anaphylaxis Verified 10/18/16 16:22 sumatriptan succinate Allergy Anaphylaxis Verified 10/18/16 16:22 [From Imitrex] morphine AdvReac Severe Itching Verified 10/18/16 16:22 iodine AdvReac Intermediate Itching Verified 10/18/16 16:22 vancomycin AdvReac Itching Verified 10/18/16 16:22 Rich wipes AdvReac Severe Rash/Hives Uncoded 10/18/16 15:41 Physical Exam Vitals: Vital Signs Temp Pulse Pulse Resp BP BP Pulse Ox 10/19/16 08:00 97.6 F 93 20 119/74 96 10/19/16 07:54 92 10/19/16 07:40 88 10/19/16 03:36 84 20 124/70 94 L 10/19/16 02:21 100 10/19/16 02:12 98 10/19/16 00:00 98 20 126/68 97 10/18/16 20:06 97.9 F 79 18 124/61 98 10/18/16 20:04 77 18 121/79 97 10/18/16 19:00 74 17 113/56 96 10/18/16 18:00 75 17 113/56 98 10/18/16 17:20 98.6 F 78 16 109/57 97 10/18/16 15:37 97.7 F 85 16 115/64 97 Intake and Output 10/18/16 10/19/16 10/19/16 22:59 06:59 14:59 Intake Total 150 945 260 Balance 150 945 260 Intake: Intake, IV Titration 150 525 Amount Sodium Chloride 0.9% 1, 150 000 ml @ 100 mls/hr IV . Q10H STA Rx#:[id number] Sodium Chloride 0.9% 1, 525 000 ml @ 75 mls/hr IV . [id number] AGNIESZKA Rx#:[id number] Oral 420 260 Other: Voiding Method Toilet Toilet Weight 104.6 kg 104.6 kg PHYSICAL EXAMINATION: HEENT: Head is atraumatic, normocephalic. Pupils equal, round. Neck is supple. There is no elevated jugular venous pressure. HEART EXAMINATION: Heart sounds regular, S1 and S2 normal. No murmur or gallop heard. CHEST EXAMINATION: Lungs reveal diminished air entry bilaterally with faint expiratory wheezing. No chest wall tenderness is noted on palpation or with deep breathing. ABDOMEN: Soft, obese, nontender. Bowel sounds are heard. No organomegaly noted. EXTREMITIES: 2+ peripheral pulses with evidence of trace right lower extremity edema and no calf tenderness noted. NEUROLOGIC patient is awake, alert and oriented x3. . Results 10/19/16 05:29 10/19/16 05:29 Cardiac Enzymes 10/18/16 10/18/16 10/18/16 Range/Units 16:10 16:10 22:15 AST 44 H (14-36) U/L CK-MB (CK-2) 0.6 0.6 (0.0-2.4) ng/mL Troponin I <0.012 <0.012 (0.000-0.034) ng/mL 10/19/16 Range/Units 05:29 AST (14-36) U/L CK-MB (CK-2) 0.4 (0.0-2.4) ng/mL Troponin I <0.012 (0.000-0.034) ng/mL Coagulation 10/18/16 Range/Units 16:10 PT 10.2 (9.0-12.0) sec APTT 23.0 (22.0-30.0) sec Lipids 10/19/16 Range/Units 05:29 Triglycerides 305 H (<150) mg/dL Cholesterol 224 H (<200) mg/dL HDL Cholesterol 44 (40-60) mg/dL CBC 10/18/16 10/19/16 Range/Units 16:10 05:29 WBC 9.0 11.0 H (3.8-10.6) k/uL RBC 4.66 4.25 (3.80-5.40) m/uL Hgb 15.0 14.1 (11.4-16.0) gm/dL Hct 43.3 40.5 (34.0-46.0) % Plt Count 296 252 (150-450) k/uL Comprehensive Metabolic Panel 10/18/16 10/19/16 Range/Units 16:10 05:29 Sodium 141 140 (137-145) mmol/L Potassium 3.6 4.1 (3.5-5.1) mmol/L Chloride 107 112 H (98-107) mmol/L Carbon Dioxide 21 L 20 L (22-30) mmol/L BUN 10 13 (7-17) mg/dL Creatinine 0.60 0.60 (0.52-1.04) mg/dL Glucose 129 H 148 H (74-99) mg/dL Calcium 9.0 8.8 (8.4-10.2) mg/dL AST 44 H (14-36) U/L ALT 63 H (9-52) U/L Alkaline Phosphatase 80 (38-126) U/L Total Protein 7.1 (6.3-8.2) g/dL Albumin 3.9 (3.5-5.0) g/dL Current Medications Generic Name Dose Route Start Last Admin Trade Name Freq PRN Reason Stop Dose Admin Acetaminophen/Butalbital/Caffeine 1 each 10/18/16 22:29 10/19/16 10:09 Fioricet 50-325-40 PO 1 each Q6H PRN Administration Migraine Headache Hydrocodone Bitart/Acetaminophen 1 each 10/18/16 22:29 10/19/16 07:58 Clutier 10 PO 1 each Q6H PRN Administration Pain Albuterol Sulfate 2.5 mg 10/18/16 22:29 10/19/16 07:40 Ventolin Nebulized INHALATION 2.5 mg RT-Q6H PRN Administration Shortness Of Breath Aspirin 325 mg 10/19/16 09:00 10/19/16 08:00 Aspirin PO 325 mg DAILY AGNIESZKA Administration Baclofen 20 mg 10/19/16 09:00 10/19/16 07:59 Lioresal PO 20 mg TID AGNIESZKA Administration Budesonide/Formoterol Fumarate 2 puff 10/19/16 08:00 10/19/16 07:40 Symbicort 160-4.5 Mcg Inhaler INHALATION 2 puff RT-BID AGNIESZKA Administration Bumetanide 2 mg 10/19/16 09:00 10/19/16 07:59 Bumex PO 2 mg DAILY AGNIESZKA Administration Enoxaparin Sodium 40 mg 10/19/16 09:00 10/19/16 08:00 Lovenox SQ 40 mg DAILY [facility] Administration Ergocalciferol 50,000 unit 10/19/16 09:00 10/19/16 08:00 Vitamin D2 PO 50,000 unit TH AGNIESZKA Administration Fluoxetine HCl 20 mg 10/19/16 09:00 10/19/16 08:00 Prozac PO 20 mg DAILY AGNIESZKA Administration Furosemide 20 mg 10/19/16 09:00 10/19/16 08:00 Lasix PO 20 mg DAILY AGNIESZKA Administration Sodium Chloride 1,000 mls @ 75 mls/hr 10/18/16 16:15 10/19/16 06:29 Saline 0.9% IV 75 mls/hr .[id number] AGNIESZKA Administration Lamotrigine 200 mg 10/19/16 09:00 10/19/16 07:59 Lamictal PO 200 mg DAILY [facility] Administration Loratadine 10 mg 10/18/16 22:29 Claritin PO DAILY PRN Allergy Symptoms Metoprolol Tartrate 50 mg 10/19/16 09:00 10/19/16 08:00 Lopressor PO 50 mg BID [facility] Administration Mirtazapine 30 mg 10/19/16 21:00 Remeron PO [facility] Miscellaneous Information 1 each 10/18/16 16:23 Rx Info: Iv Contrast Was Given MISCELLANE 10/20/16 16:23 DAILY PRN Per Protocol Montelukast Sodium 10 mg 10/19/16 21:00 Singulair PO [facility] Nitroglycerin 0.4 mg 10/18/16 16:15 Nitrostat SUBLINGUAL Q5M PRN Chest Pain Ondansetron HCl 4 mg 10/18/16 22:29 Zofran PO DAILY PRN Nausea Potassium Chloride 20 meq 10/19/16 09:00 10/19/16 08:00 K-Dur 10 PO 20 meq DAILY [facility] Administration Pregabalin 100 mg 10/19/16 09:00 10/19/16 08:04 Lyrica PO 100 mg BID AGNIESZKA Administration Intake and Output 10/18/16 10/19/16 10/19/16 22:59 06:59 14:59 Intake Total 150 945 260 Balance 150 945 260 Intake: Intake, IV Titration 150 525 Amount Sodium Chloride 0.9% 1, 150 000 ml @ 100 mls/hr IV . Q10H STA Rx#:[id number] Sodium Chloride 0.9% 1, 525 000 ml @ 75 mls/hr IV . [id number] AGNIESZKA Rx#:[id number] Oral 420 260 Other: Voiding Method Toilet Toilet Weight 104.6 kg 104.6 kg 10/19/16 05:29 10/19/16 05:29 EKG Interpretations (text) Sinus rhythm with no evidence of ischemia Assessment and Plan Plan: Assessment and plan #1 syncope #2 history of PE and DVT, venous Doppler and CTA of the chest both negative #3 questionable history of pulmonary sarcoidosis #4 recurrent pneumonia From cardiology's perspective, 2-D echo with Doppler was reviewed and shows a normal LV systolic function. Syncope likely related to vasovagal syncope S patient was nauseous and not feeling well prior to the events. We'll obtain orthostatic blood pressures to rule out orthostatic hypotension. From our standpoint patient may be discharged home with a 2 week event monitor and follow -up in the office with Dr. SHA Rao. SPRAY APPLICATOR note has been reviewed, I agree with a documented findings and plan of care. Patient was seen and examined.
[2016-10-19 12:00] VITALS: PULSE 84
[2016-10-19] MEDS ORDERED: ALPRAZolam 0.25 MG TAB PO PRN (12:19)
--- NOTE | 2016-10-19 14:24 | P.HPIM ---
History of Present Illness H&P Date: 10/19/16 Chief Complaint: Syncope Ms. Estrada is a 46-year-old female with a past medical history of hypertension, hyperlipidemia, history of PE in 2012, sarcoidosis diagnosed in 2015 following the bronchoscopy and lung biopsy done at [facility] came to ER with complaints of syncope. Patient had a single episode last night and another and another syncope following day morning. Patient came to the hospital. Apparently patient was having nausea and vomiting with diarrhea. Otherwise patient denied any chest pain or short of breath or abdominal pain. Patient does have right lower extremity metatarsal fractures about 3 weeks ago. Patient is supposed to follow with orthopedics in next 10 days. Patient is complaining of right lower activity severe pain and cramping. Patient is taking [employer] 10 baclofen and Lyrica for pain at home. Patient denied any fever or chills. No recent illnesses. No sick contacts at home. Head CT head was done which was negative. Patient's d-dimer was elevated on admission but CT angiogram of the chest and venous duplex of right lower extremity negative BNP is 187. Currently patient denies any, soft chest pain or short of breath. Patient was seen by cardiology and 2-D levocardia was ordered which showed normal LV function with ejection fraction of 55%. No evidence of pulmonary hypertension. Review of Systems Constitutional: Patient denies any fever or chills . No generalized weakness or weight loss. Abdomen: Patient denied nausea vomiting and diarrhea and abdominal pain. Cardiovascular: Patient denies any chest pain or short of breath no palpitations. Respiratory: patient denied any cough is from production. No shortness of breath Neurologic: Patient denied any numbness or tingling headache. Musculoskeletal: Right foot pain and tenderness. No swelling or deformity Skin: Patient does have left wrist skin wound. Psychiatric: Negative Endocrine: No heat or cold intolerance. No recent weight gain. Genitourinary: No dysuria or hematuria. All other 14 point ROS negative except the above Past Medical History Past Medical History: Blood Disorder, Heart Failure, COPD, Deep Vein Thrombosis (DVT), Hyperlipidemia, Hypertension, Myocardial Infarction ([place]), Musculoskeletal Disorder, Pneumonia, Pulmonary Embolus ([place]) Additional Past Medical History / Comment(s): PE 2012; Sarcoidosis diagnosed in 2015 following a bronchoscopy and lung biopsy done at [facility] and she was started on predniosone and she took the therapy for almost 1 year, polycythemia, overweight, bilateral PE (2011, 2015), bilateral DVTs, fibromyalgia, bipolar disorder, degenerative disk disorder, coronary artery disease along with previous history of a [place] and ventilator dependent respiratory failure with MRSA pneumonia for which the patient was hospitalized [facility] in 2012. Viral meningitis in October 2014. Last Myocardial Infarction Date:: February 15, 2013 History of Any Multi-Drug Resistant Organisms: MRSA Date of last positivie culture/infection: 2013 MDRO Source:: Lungs Past Surgical History: Section, Cholecystectomy, Heart Catheterization , Hernia Repair, Orthopedic Surgery Additional Past Surgical History / Comment(s): Lt ankle surgery,BRONCH Past Anesthesia/Blood Transfusion Reactions: Motion Sickness, Postoperative Nausea & Vomiting (PONV) Past Psychological History: Anxiety, Bipolar, Depression, Panic Disorder Additional Psychological History / Comment(s): pt. states she is on medication for depression and feels well maintained. Smoking Status: Former smoker Past Alcohol Use History: None Reported Past Drug Use History: None Reported - Past Family History Father Family Medical History: Blood Disorder, Congestive Heart Failure (CHF), CVA/TIA , Deep Vein Thrombosis (DVT), Myocardial Infarction ([place]) Additional Family Medical History / Comment(s): polycythemia Mother Family Medical History: Congestive Heart Failure (CHF), Diabetes Mellitus, Deep Vein Thrombosis (DVT), Myocardial Infarction ([place]), Musculoskeletal Disorder Sister(s) Family Medical History: No Reported History Brother(s) Family Medical History: No Reported History Son(s) Family Medical History: No Reported History Daughter(s) Family Medical History: No Reported History Medications and Allergies Home Medications Medication Instructions Recorded Confirmed Type Cetirizine HCl [Zyrtec] 10 mg PO DAILY PRN 07/16/14 10/18/16 History Ergocalciferol [Vitamin D2 50,000 units PO TH 07/16/14 10/18/16 History (DRISDOL)] Budesonide-Formot 160-4.5 Mcg 2 puff INHALATION RT-BID 08/23/15 10/18/16 History [Symbicort 160-4.5 Mcg Inhaler] lamoTRIgine [LaMICtal] 200 mg PO DAILY 03/22/16 10/18/16 History Furosemide [Lasix] 20 mg PO DAILY 03/30/16 10/18/16 History Baclofen [Lioresal] 20 mg PO TID 10/18/16 10/18/16 History Bumetanide 2 mg PO DAILY 10/18/16 10/18/16 History Butalb/APAP/Caff 50-325-40Mg 1 tab PO Q6H PRN 10/18/16 10/18/16 History [Fioricet 50-325-40] Ondansetron HCl [Zofran] 4 mg PO DAILY PRN 10/18/16 10/18/16 History Potassium Chloride ER [K-Dur 10] 20 meq PO DAILY 10/18/16 10/18/16 History Pregabalin [Lyrica] 100 mg PO BID 10/18/16 10/18/16 History Allergies Allergy/AdvReac Type Severity Reaction Status Date / Time ketorolac tromethamine Allergy Severe Anaphylaxis Verified 10/18/16 16:22 [From Toradol] Opioids - Morphine Analogues Allergy Mild Itching Verified 10/18/16 16:22 rivaroxaban [From Xarelto] Allergy Rash/Hives Verified 10/18/16 16:22 sumatriptan [From Imitrex] Allergy Anaphylaxis Verified 10/18/16 16:22 sumatriptan succinate Allergy Anaphylaxis Verified 10/18/16 16:22 [From Imitrex] morphine AdvReac Severe Itching Verified 10/18/16 16:22 iodine AdvReac Intermediate Itching Verified 10/18/16 16:22 vancomycin AdvReac Itching Verified 10/18/16 16:22 Rich wipes AdvReac Severe Rash/Hives Uncoded 10/18/16 15:41 Physical Exam Vitals: Vital Signs Temp Pulse Pulse Resp BP BP Pulse Ox 10/19/16 11:59 84 10/19/16 11:43 80 10/19/16 11:13 80 22 10/19/16 11:12 97.1 F L 80 22 120/77 97 10/19/16 08:00 97.6 F 93 20 119/74 96 10/19/16 07:54 92 10/19/16 07:40 88 10/19/16 03:36 84 20 124/70 94 L 10/19/16 02:21 100 10/19/16 02:12 98 10/19/16 00:00 98 20 126/68 97 10/18/16 20:06 97.9 F 79 18 124/61 98 10/18/16 20:04 77 18 121/79 97 10/18/16 19:00 74 17 113/56 96 10/18/16 18:00 75 17 113/56 98 10/18/16 17:20 98.6 F 78 16 109/57 97 10/18/16 15:37 97.7 F 85 16 115/64 97 Intake and Output 10/18/16 10/19/16 10/19/16 22:59 06:59 14:59 Intake Total 150 945 260 Balance 150 945 260 Intake: Intake, IV Titration 150 525 Amount Sodium Chloride 0.9% 1, 150 000 ml @ 100 mls/hr IV . Q10H STA Rx#:[id number] Sodium Chloride 0.9% 1, 525 000 ml @ 75 mls/hr IV . [id number] AGNIESZKA Rx#:[id number] Oral 420 260 Other: Voiding Method Toilet Toilet Weight 104.6 kg 104.6 kg PHYSICAL EXAMINATION: Patient is lying in the bed comfortably, no acute distress, awake alert and oriented.. HEENT: Normocephalic. Neck is supple. Pupils reactive. Nostrils clear. Oral cavity is moist. Ears reveal no drainage. Neck reveals no JVD, carotid bruits, or thyromegaly. CHEST EXAMINATION: Trachea is central. Symmetrical expansion. Lung diana clear to auscultation and percussion. CARDIAC: Normal S1, S2 with no gallops. No murmurs ABDOMEN: Soft. Bowel sounds normal. No organomegaly. No abdominal bruits. Extremities: reveal no edema. No clubbing or cyanosis Neurologically awake, alert, oriented x3 with well-coordinated movements. No focal deficits noted Skin: No rash or skin lesions. Psychiatric: Operative. Nonsuicidal Musculoskeletal: No joint swelling or deformity. Normal range of motion. Patient does have right foot pain and tenderness. No swelling no erythema. Range of motion at right foot and ankle decreased due to pain. No calf tenderness. Results CBC & Chem 7: 10/19/16 05:29 10/19/16 05:29 Labs: Abnormal Lab Results - Last 24 Hours (Table) 10/18/16 10/18/16 10/18/16 Range/Units 16:10 16:10 17:57 WBC (3.8-10.6) k/uL Neutrophils # (1.3-7.7) k/uL D-Dimer 0.87 H (<0.60) mg/L FEU Chloride (98-107) mmol/L Carbon Dioxide 21 L (22-30) mmol/L Glucose 129 H (74-99) mg/dL POC Glucose (mg/dL) (75-99) mg/dL AST 44 H (14-36) U/L ALT 63 H (9-52) U/L Triglycerides (<150) mg/dL Cholesterol (<200) mg/dL LDL Cholesterol, Calc (0-99) mg/dL Urine Opiates Screen Detected H (NotDetected) 10/18/16 10/19/16 10/19/16 Range/Units 20:51 05:29 05:29 WBC 11.0 H (3.8-10.6) k/uL Neutrophils # 9.3 H (1.3-7.7) k/uL D-Dimer (<0.60) mg/L FEU Chloride 112 H (98-107) mmol/L Carbon Dioxide 20 L (22-30) mmol/L Glucose 148 H (74-99) mg/dL POC Glucose (mg/dL) 118 H (75-99) mg/dL AST (14-36) U/L ALT (9-52) U/L Triglycerides 305 H (<150) mg/dL Cholesterol 224 H (<200) mg/dL LDL Cholesterol, Calc 119 H (0-99) mg/dL Urine Opiates Screen (NotDetected) Microbiology - Last 24 Hours (Table) 10/18/16 17:57 Urine Culture - Preliminary Urine,Clean Catch Thrombosis Risk Factor Assmnt - DVT/VTE Prophylaxis DVT/VTE Prophylaxis: Pharmacologic Prophylaxis ordered - Choose All That Apply Each Factor Represents 1 point: Age 41-60 years, Obesity (BMI >25) Each Risk Factor Represents 3 Points: History of DVT/PE Thrombosis Risk Factor Assessment Total Risk Factor Score: 5 Thrombosis Risk Factor Assessment Level: High Risk Assessment and Plan Plan: #1 syncope likely vasovagal with severe nausea. Possible narcotic pain medication use is contributing #2 recent right foot metatarsal fracture. Continue Current with the pain medication and although follow-up as an outpatient. She already has an appointment. #3 previous history of PE. CT angiogram is negative to now and d-dimer is slightly elevated at 0.87 #4 history of sarcoidosis per patient. Patient says she had bronchoscopy at [facility] 5 COPD stable #6 hypertension. #7 hyperlipidemia. #8 morbid obesity with BMI of 37.2 #9 fibromyalgia #10 bipolar disorder #11 degenerative disc disease #12 history of MRSA pneumonia PLAN: Patient will be continued on pain management. Orthostatic vitals were ordered. Patient had CT head, CT angiogram, EKG, chest x-ray, lower admitted duplex and 2 -D echo were essentially negative to at this time. DVT prophylaxis. Continue current management and encouraged ambulation. Anticipate to be discharged in 24 hours. Time with Patient: Greater than 30
[2016-10-19 15:00] VITALS: BP 108/71
[2016-10-19] MEDS ORDERED: MONTELUKAST 10 MG TAB PO SCH (21:00)
[2016-10-19] MEDS ORDERED: MIRTAZAPINE 15 MG TAB PO SCH (21:00)
--- NOTE | 2016-11-15 09:49 | DS ---
DATE OF ADMISSION: 10/18/2016 DATE OF DISCHARGE 10/19/2016 DISCHARGE DIAGNOSES: 1. Diarreha, Nausea and vomiting . possible gastro eneteritis 2. Metatarsal fracture, follow up with ortho as an outpatient. 3. Previous history of pulmonary embolism. CT angiogram is negative now and d- dimer is slightly elevated at 0.87. HOSPITAL COURSE: Ms. Estrada is a 46-year-old female with known history of multiple medical problems and comorbid conditions ( ), syncopal episode last night and another syncope this morning. The patient came to the hospital and patient was having nausea, vomiting and diarrhea. Otherwise the patient denied any chest pain or short of breath or abdominal pain. Patient recently had a right lower extremity metatarsal fracture about three weeks ago. Patient is supposed to follow with orthopedics in the next 10 days. Patient has been taking narcotic pain medications at home including [place]erbe 10, Baclofen and Lyrica for pain. Patient was found to have slightly elevated d-dimer and subsequent Ct angiogram showed no evidence of pulmonary embolism. Right lower extremity venous Duplex is negative for DVT as well. BNP is not elevated at 197. Patient is continued on telemonitoring and Cardiology has seen the patient and recommended no further workup at this time. 2-D echo showed normal LV function and ejection fraction of 55%. No evidence of pulmonary hypertension. Otherwise the patient is stable clinically and is being discharged home to follow with orthopedics as an outpatient. DISCHARGE PHYSICAL EXAMINATION: A 46-year-old female lying in bed comfortably, awake, alert, oriented x3, appears to be in no apparent distress. VITALS: Blood pressure is 128/86, pulse is 84, respirations 22, temperature afebrile, pulse ox is saturating well on room air. Patient was advised to limit narcotic pain medication use. Laboratory data reviewed. Discharge physical examination done. DISCHARGE MEDICATIONS: 1. Zyrtec 10 mg p.o. daily p.r.n. 2. Vitamin D2 50,000 units p.o. a day. 3. Albuterol inhaler 2 puffs q.6 hourly p.r.n. for short of breath. 4. Prozac 20 mg p.o. daily. 5. Metoprolol 50 mg p.o. b.i.d. 6. Remeron 30 mg p.o. at bedtime. 7. Singulair 10 mg p.o. at bedtime. 8. Symbicort 2 puffs b.i.d. 9. Lamotrigine 200 mg p.o. daily. 10. Lasix 20 mg p.o. daily. 11. Xanax 0.5 mg p.o. q.i.d. p.r.n. 12. [place] 10 one tablet p.o. q.6 hourly p.r.n. for pain. 13. Baclofen 20 mg p.o. t.i.d. 14. Budesonide ( ) 2 mg p.o. daily. 15. Fioricet 1 tablet p.o. q.6 hourly p.r.n. for headache. 16. Zofran 4 mg p.o. daily p.r.n. 17. Potassium chloride 20 mEq p.o. daily. 18. Lyrica 100 mg p.o. b.i.d. Patient will be discharged home in stable condition. Activity as tolerated. Follow with Dr. Donal Rao and follow with Dr. Liz Koch. Home with home visiting nurse. Regular cardiac diet. MTDD
== END 2016-10-19 15:18 | disposition home or self-care (01) ==
LOC: EC 15:26 → 6SEL 16:15 → INTOOBSV 16:15 → 6SEL 20:02
PROVIDERS: ADMIT Hospitalist; ATTEND Hospitalist
DX: R55 Syncope and collapse (principal); R20.0 Anesthesia of skin; R11.2 Nausea with vomiting, unspecified; R19.7 Diarrhea, unspecified; J44.0 Chronic obstructive pulmonary disease with (acute) lower respiratory infection; I50.9 Heart failure, unspecified; I11.0 Hypertensive heart disease with heart failure; E78.5 Hyperlipidemia, unspecified; M79.7 Fibromyalgia; F31.9 Bipolar disorder, unspecified; D86.9 Sarcoidosis, unspecified; D75.1 Secondary polycythemia; F41.0 Panic disorder [episodic paroxysmal anxiety]; I25.2 Old myocardial infarction; I25.10 Atherosclerotic heart disease of native coronary artery without angina pectoris; E66.9 Obesity, unspecified; S92.301D Fracture of unspecified metatarsal bone(s), right foot, subsequent encounter for fracture with routine healing; Z86.711 Personal history of pulmonary embolism; Z86.14 Personal history of Methicillin resistant Staphylococcus aureus infection; Z88.9 Allergy status to unspecified drugs, medicaments and biological substances; Z88.8 Allergy status to other drugs, medicaments and biological substances; Z88.5 Allergy status to narcotic agent; Z79.51 Long term (current) use of inhaled steroids; Z79.899 Other long term (current) drug therapy; Z86.718 Personal history of other venous thrombosis and embolism; Z79.01 Long term (current) use of anticoagulants; Z88.3 Allergy status to other anti-infective agents; Z79.52 Long term (current) use of systemic steroids; Z87.891 Personal history of nicotine dependence; Z82.49 Family history of ischemic heart disease and other diseases of the circulatory system; Z68.37 Body mass index [BMI] 37.0-37.9, adult; Z87.01 Personal history of pneumonia (recurrent); X58.XXXD Exposure to other specified factors, subsequent encounter
CPT/HCPCS: 96375 ×5; 96361 ×7; 96374 ×2; 99285 ×2; 96376; 96372; 36415; 94640 ×2; 93005; 93306; 93270; 93271; 85379; 83880; 80061; 80053; 80048; 82550 ×2; 82553 ×2; 83735; 84100; 84484 ×2; 85025 ×2; 85610; 85730; 81003; 80306; 83520 ×2; 80320; 87086; 71020; 93971; 70450; 71275; G0378 ×2; J1200; J2930; Q9967; J2405; J1650; J1170

== ENCOUNTER 2016-10-22 18:06 | Emergency (ER) | payer OTHER ==
[2016-10-22 18:14] VITALS: RESP 18; TEMP 99.1
[2016-10-22] MEDS ORDERED: ASPIRIN 81 MG CHEW PO STA (18:22)
--- NOTE | 2016-10-22 18:26 | ED ---
General Adult HPI - General Chief complaint: Chest Pain Stated complaint: CHEST TIGHTNESS, HYPERTENSION Time Seen by Provider: 10/22/16 18:16 Source: patient, RN notes reviewed Mode of arrival: wheelchair Limitations: no limitations - History of Present Illness Initial comments: 46-year-old female presents to the emergency Department chief complaint of high blood pressure. Patient states that she was recently discharged from the hospital on with vasovagal syncope. They state that they have on monitors for home and her blood pressure has been running high for the past day. Patient had a visiting nurse come and see her and they sent her in because they were concerned about her blood pressure. Patient states also she feels as if she is getting more short of breath since she was discharged on . Patient has had a history of DVTs as well as PEs and she is not currently on any blood thinners. Patient states she hasn't had a fever or chills with this. Patient states at night she'll wake up just gasping for air. Patient denies any sleep study in the past. Patient was concerned due to her symptoms so she thought that she should be evaluated. Patient this type states he just feels kind of tight. She states her pain is minimal. Patient denies any recent fever, chills, back pain, abdominal pain, nausea vomiting, numbness or tingling, dysuria or hematuria, constipation or diarrhea, headaches or visual changes, or any other current symptoms. - Related Data Home Medications Medication Instructions Recorded Confirmed Cetirizine HCl [Zyrtec] 10 mg PO DAILY PRN 07/16/14 10/22/16 Ergocalciferol [Vitamin D2 50,000 units PO TH 07/16/14 10/22/16 (DRISDOL)] Budesonide-Formot 160-4.5 Mcg 2 puff INHALATION RT-BID 08/23/15 10/22/16 [Symbicort 160-4.5 Mcg Inhaler] lamoTRIgine [LaMICtal] 200 mg PO DAILY 03/22/16 10/22/16 Furosemide [Lasix] 20 mg PO DAILY 03/30/16 10/22/16 Baclofen [Lioresal] 20 mg PO TID 10/18/16 10/22/16 Bumetanide 2 mg PO DAILY 10/18/16 10/22/16 Butalb/APAP/Caff 50-325-40Mg 1 tab PO Q6H PRN 10/18/16 10/22/16 [Fioricet 50-325-40] Ondansetron HCl [Zofran] 4 mg PO DAILY PRN 10/18/16 10/22/16 Potassium Chloride ER [K-Dur 10] 20 meq PO DAILY 10/18/16 10/22/16 Pregabalin [Lyrica] 100 mg PO BID 10/18/16 10/22/16 Previous Rx's Medication Instructions Recorded Albuterol Inhaler [Ventolin Hfa 2 puff INHALATION RT-Q6H PRN #1 08/20/15 Inhaler] puff FLUoxetine HCL [PROzac] 20 mg PO DAILY #30 capsule 08/20/15 Metoprolol Tartrate [Lopressor] 50 mg PO BID #60 tab 08/20/15 Mirtazapine [Remeron] 30 mg PO HS #30 tablet 08/20/15 Montelukast [Singulair] 10 mg PO HS #30 tab 08/20/15 ALPRAZolam [Xanax] 0.5 mg PO QID PRN #20 tab 04/17/16 HYDROcodone/APAP 10-325MG [[place] 1 tab PO Q6H PRN #15 tab 10/02/16 10-325] Allergies Allergy/AdvReac Type Severity Reaction Status Date / Time ketorolac tromethamine Allergy Severe Anaphylaxis Verified 10/22/16 18:39 [From Toradol] Opioids - Morphine Analogues Allergy Mild Itching Verified 10/22/16 18:39 rivaroxaban [From Xarelto] Allergy Rash/Hives Verified 10/22/16 18:39 sumatriptan [From Imitrex] Allergy Anaphylaxis Verified 10/22/16 18:39 sumatriptan succinate Allergy Anaphylaxis Verified 10/22/16 18:39 [From Imitrex] morphine AdvReac Severe Itching Verified 10/22/16 18:39 iodine AdvReac Intermediate Itching Verified 10/22/16 18:39 vancomycin AdvReac Itching Verified 10/22/16 18:39 Rich wipes AdvReac Severe Rash/Hives Uncoded 10/22/16 18:15 Review of Systems ROS Statement: Those systems with pertinent positive or pertinent negative responses have been documented in the HPI. ROS Other: All systems not noted in ROS Statement are negative. Past Medical History Past Medical History: Blood Disorder, Heart Failure, COPD, Deep Vein Thrombosis (DVT), Hyperlipidemia, Hypertension, Myocardial Infarction (NM), Musculoskeletal Disorder, Pneumonia, Pulmonary Embolus (PE) Additional Past Medical History / Comment(s): PE 2012; Sarcoidosis diagnosed in 2015 following a bronchoscopy and lung biopsy done at [facility] and she was started on predniosone and she took the therapy for almost 1 year, polycythemia, overweight, bilateral PE (2011, 2015), bilateral DVTs, fibromyalgia, bipolar disorder, degenerative disk disorder, coronary artery disease along with previous history of a NM and ventilator dependent respiratory failure with MRSA pneumonia for which the patient was hospitalized [facility] in 2012. Viral meningitis in October 2014. Last Myocardial Infarction Date:: February 15, 2013 History of Any Multi-Drug Resistant Organisms: MRSA Date of last positivie culture/infection: 2013 MDRO Source:: Lungs Past Surgical History: Section, Cholecystectomy, Heart Catheterization , Hernia Repair, Orthopedic Surgery Additional Past Surgical History / Comment(s): Lt ankle surgery,BRONCH Past Anesthesia/Blood Transfusion Reactions: Motion Sickness, Postoperative Nausea & Vomiting (PONV) Past Psychological History: Anxiety, Bipolar, Depression, Panic Disorder Smoking Status: Former smoker Past Alcohol Use History: None Reported Past Drug Use History: None Reported - Past Family History Father Family Medical History: Blood Disorder, Congestive Heart Failure (CHF), CVA/TIA , Deep Vein Thrombosis (DVT), Myocardial Infarction (NM) Additional Family Medical History / Comment(s): polycythemia Mother Family Medical History: Congestive Heart Failure (CHF), Diabetes Mellitus, Deep Vein Thrombosis (DVT), Myocardial Infarction (NM), Musculoskeletal Disorder Sister(s) Family Medical History: No Reported History Brother(s) Family Medical History: No Reported History Son(s) Family Medical History: No Reported History Daughter(s) Family Medical History: No Reported History General Exam Limitations: no limitations General appearance: alert, in no apparent distress Eye exam: Present: normal appearance, PERRL, EOMI. Absent: scleral icterus, conjunctival injection, periorbital swelling ENT exam: Present: normal exam, mucous membranes moist Neck exam: Present: normal inspection. Absent: tenderness, meningismus, lymphadenopathy Respiratory exam: Present: normal lung sounds bilaterally. Absent: respiratory distress, wheezes, rales, rhonchi, stridor Cardiovascular Exam: Present: normal rhythm, tachycardia, normal heart sounds. Absent: systolic murmur, diastolic murmur, rubs, gallop, clicks GI/Abdominal exam: Present: soft, normal bowel sounds. Absent: distended, tenderness, guarding, rebound, rigid Neurological exam: Present: alert, oriented X3 Psychiatric exam: Present: normal affect, normal mood Skin exam: Present: warm, dry, intact, normal color. Absent: rash Course Vital Signs 10/22/16 10/22/16 10/22/16 18:11 19:02 19:05 Temperature 99.1 F Pulse Rate 101 H 96 95 Respiratory 18 18 18 Rate Blood Pressure 133/75 132/72 132/72 O2 Sat by Pulse 95 99 96 Oximetry EKG Findings - EKG Comments: EKG Findings:: normal sinus rhythm 96 bpm, normal axis, no atopy, no S-T depressions or elevations, Medical Decision Making - Medical Decision Making 46-year-old female presents emergency Department with chief complaint of chest tightness. This time cardiac workup performed about are negative at this time an EKG does appear to be within normal limits. Patient's d-dimer is mildly elevated which is fairly chronic for the patient but due to her history of PE we did order CT anginal. We were unable to successfully complete the CT anginal due to the IV going subcu. Informed patient that she did have another CT angiogram she could have a blood clot in her lung that could lead to further problems such as and she did that she understood. Patient decided to leave AMA however and didn't complete this test. She at this time was informed of the risks of this and she stated that she understood but she will be leaving at this time. This time patient is leaving out AMA we did discuss the risks of this and she stated she understood. She is able to make her own decisions and she did proceed to walk out with family. - Lab Data Result diagrams: 10/22/16 18:54 10/22/16 18:54 Lab Results 10/22/16 10/22/16 10/22/16 Range/Units 18:54 18:54 18:54 WBC 11.1 H (3.8-10.6) k/uL RBC 5.12 (3.80-5.40) m/uL Hgb 16.9 H (11.4-16.0) gm/dL Hct 48.7 H (34.0-46.0) % MCV 95.2 (80.0-100.0) fL MCH 33.1 (25.0-35.0) pg MCHC 34.8 (31.0-37.0) g/dL RDW 14.7 (11.5-15.5) % Plt Count 336 (150-450) k/uL Neutrophils % 65 % Lymphocytes % 24 % Monocytes % 5 % Eosinophils % 3 % Basophils % 1 % Neutrophils # 7.2 (1.3-7.7) k/uL Lymphocytes # 2.7 (1.0-4.8) k/uL Monocytes # 0.6 (0-1.0) k/uL Eosinophils # 0.3 (0-0.7) k/uL Basophils # 0.1 (0-0.2) k/uL PT (9.0-12.0) sec INR (<1.2) APTT (22.0-30.0) sec D-Dimer (<0.60) mg/L FEU Sodium 141 (137-145) mmol/L Potassium 3.8 (3.5-5.1) mmol/L Chloride 108 H (98-107) mmol/L Carbon Dioxide 20 L (22-30) mmol/L Anion Gap 13 mmol/L BUN 10 (7-17) mg/dL Creatinine 0.83 (0.52-1.04) mg/dL Est GFR (MDRD) Af Amer >60 (>60 ml/min/1.73 sqM) Est GFR (MDRD) Non-Af >60 (>60 ml/min/1.73 sqM) Glucose 110 H (74-99) mg/dL Calcium 9.9 (8.4-10.2) mg/dL Magnesium 2.1 (1.6-2.3) mg/dL Total Bilirubin 0.4 (0.2-1.3) mg/dL AST 39 H (14-36) U/L ALT 60 H (9-52) U/L Alkaline Phosphatase 81 (38-126) U/L Total Creatine Kinase 30 (30-135) U/L CK-MB (CK-2) 0.5 (0.0-2.4) ng/mL CK-MB (CK-2) Rel Index 1.7 Troponin I <0.012 (0.000-0.034) ng/mL NT-Pro-B Natriuret Pep pg/mL Total Protein 7.9 (6.3-8.2) g/dL Albumin 4.4 (3.5-5.0) g/dL 10/22/16 10/22/16 Range/Units 18:54 18:54 WBC (3.8-10.6) k/uL RBC (3.80-5.40) m/uL Hgb (11.4-16.0) gm/dL Hct (34.0-46.0) % MCV (80.0-100.0) fL MCH (25.0-35.0) pg MCHC (31.0-37.0) g/dL RDW (11.5-15.5) % Plt Count (150-450) k/uL Neutrophils % % Lymphocytes % % Monocytes % % Eosinophils % % Basophils % % Neutrophils # (1.3-7.7) k/uL Lymphocytes # (1.0-4.8) k/uL Monocytes # (0-1.0) k/uL Eosinophils # (0-0.7) k/uL Basophils # (0-0.2) k/uL PT 10.7 (9.0-12.0) sec INR 1.1 (<1.2) APTT 24.4 (22.0-30.0) sec D-Dimer 0.71 H (<0.60) mg/L FEU Sodium (137-145) mmol/L Potassium (3.5-5.1) mmol/L Chloride (98-107) mmol/L Carbon Dioxide (22-30) mmol/L Anion Gap mmol/L BUN (7-17) mg/dL Creatinine (0.52-1.04) mg/dL Est GFR (MDRD) Af Amer (>60 ml/min/1.73 sqM) Est GFR (MDRD) Non-Af (>60 ml/min/1.73 sqM) Glucose (74-99) mg/dL Calcium (8.4-10.2) mg/dL Magnesium (1.6-2.3) mg/dL Total Bilirubin (0.2-1.3) mg/dL AST (14-36) U/L ALT (9-52) U/L Alkaline Phosphatase (38-126) U/L Total Creatine Kinase (30-135) U/L CK-MB (CK-2) (0.0-2.4) ng/mL CK-MB (CK-2) Rel Index Troponin I (0.000-0.034) ng/mL NT-Pro-B Natriuret Pep 124 pg/mL Total Protein (6.3-8.2) g/dL Albumin (3.5-5.0) g/dL - Radiology Data Radiology results: report reviewed, image reviewed Disposition Clinical Impression: Chest tightness Disposition: Left Against Medical Advice Referrals: Liz Koch MD [Primary Care Provider] - 1-2 days
[2016-10-22] MEDS ORDERED: ACETAMINOPHEN TAB 500 MG TAB PO STA (18:58)
[2016-10-22 19:03] VITALS: BP 132/72
[2016-10-22 19:08] LABS: Basophils # (A) 0.1 k/uL (0-0.2); Basophils % (A) 1 %; CH 33.2; CHCM 35.1; Eosinophils # (A) 0.3 k/uL (0-0.7); Eosinophils % (A) 3 %; HCT 48.7 % (34.0-46.0); HDW 2.73; HGB 16.9 gm/dL (11.4-16.0); Luc # (Auto) 0.18; Luc % (Auto) 2; Lymphocytes # (A) 2.7 k/uL (1.0-4.8); Lymphocytes % (A) 24 %; MCH 33.1 pg (25.0-35.0); MCHC 34.8 g/dL (31.0-37.0); MCV 95.2 fL (80.0-100.0); Mean Platelet Volume 7.6; Monocytes # (A) 0.6 k/uL (0-1.0); Monocytes % (A) 5 %; Neutrophils # (A) 7.2 k/uL (1.3-7.7); Neutrophils % (A) 65 %; RBC 5.12 m/uL (3.80-5.40); RDW 14.7 % (11.5-15.5); WBC 11.1 k/uL (3.8-10.6); WBC (Perox) 9.86
--- NOTE | 2016-10-22 19:22 | XR ---
EXAMINATION TYPE: XR chest 2V DATE OF EXAM: 10/22/2016 COMPARISON: 10/18/2016 HISTORY: Chest pain TECHNIQUE: Frontal and lateral views of the chest are obtained. FINDINGS: Heart and mediastinum are normal. There is slight blunting of left costophrenic angle. The re is no heart failure. Bony thorax is intact. There are chest leads. IMPRESSION: Minimal pleural scarring at the lateral left lung base. No change compared to old exam.
[2016-10-22 19:27] LABS: ALT 60 U/L (9-52); AST 39 U/L (14-36); Alkaline Phosphatase 81 U/L (38-126); Anion Gap 13 mmol/L; Blood Urea Nitrogen 10 mg/dL (7-17); Calcium 9.9 mg/dL (8.4-10.2); Carbon Dioxide 20 mmol/L (22-30); Chloride 108 mmol/L (98-107); Glucose 110 mg/dL (74-99); Magnesium 2.1 mg/dL (1.6-2.3); Non-African American GFR(MDRD) >60 (>60 ml/min/1.73 sqM); Potassium 3.8 mmol/L (3.5-5.1); Sodium 141 mmol/L (137-145); Total Bilirubin 0.4 mg/dL (0.2-1.3); Total Protein 7.9 g/dL (6.3-8.2)
[2016-10-22 19:31] LABS: Creatine Kinase 30 U/L (30-135)
[2016-10-22 19:45] LABS: Creatine Kinase MB 0.5 ng/mL (0.0-2.4); Troponin I <0.012 ng/mL (0.000-0.034)
[2016-10-22 19:47] LABS: INR 1.1 (<1.2); Partial Thromboplastin Time 24.4 sec (22.0-30.0); Prothrombin Time 10.7 sec (9.0-12.0)
[2016-10-22] MEDS ORDERED: RX INFO: IV CONTRAST WAS GIVEN 1 EACH MISC MISCELLANE PRN (19:52)
[2016-10-22] MEDS ORDERED: diphenhydrAMINE 50 MG/ML 1 ML VIAL IVP STA (19:53)
[2016-10-22] MEDS ORDERED: methylPREDNISolone SOD SUCCI 125 MG/2 ML VIAL IV STA (19:53)
[2016-10-22 20:18] VITALS: PULSE 95
[2016-10-22] MEDS ORDERED: ONDANSETRON 4 MG/2 ML VIAL IVP STA (20:23)
[2016-10-22] MEDS ORDERED: METOCLOPRAMIDE 5 MG/ML 2 ML VIAL IVP STA (20:42)
--- NOTE | 2016-10-22 21:56 | CT ---
EXAMINATION TYPE: CT discontinued procedure DATE OF EXAM: 10/22/2016 COMPARISON: NONE HISTORY: Patient complains of high blood pressure and history or DVT. CT DLP: 363.3 mGycm Automated exposure control for dose reduction was used. FINDINGS: IMPRESSION: ATTEMPT WAS MADE TO PERFORM A CT ANGIOGRAM OF THE CHEST BUT THERE WAS CONTRAST EXTRAVASATION AND THE EXAM COULD NOT BE COMPLETED. THE EXAM IS NONDIAGNOSTIC.
== END 2016-10-22 20:40 | disposition left against medical advice (07) ==
LOC: EC 18:06
DX: R07.89 Other chest pain (principal); J44.9 Chronic obstructive pulmonary disease, unspecified; I11.0 Hypertensive heart disease with heart failure; I50.9 Heart failure, unspecified; F31.9 Bipolar disorder, unspecified; Z87.891 Personal history of nicotine dependence; Z88.6 Allergy status to analgesic agent; Z88.5 Allergy status to narcotic agent; Z88.8 Allergy status to other drugs, medicaments and biological substances; Z88.1 Allergy status to other antibiotic agents; Z91.048 Other nonmedicinal substance allergy status; Z91.09 Other allergy status, other than to drugs and biological substances; Z53.29 Procedure and treatment not carried out because of patient's decision for other reasons; Z79.51 Long term (current) use of inhaled steroids; Z79.899 Other long term (current) drug therapy
CPT/HCPCS: 36415; 93005; 85379; 83880; 80053; 82550; 82553; 83735; 84484; 85025; 85610; 85730; 71020; 76380; 99285; 96374; 96375; J1200; J2930; Q9967

== ENCOUNTER 2017-03-18 19:30 | Observation (INO) | payer OTHER ==
[2017-03-18] MEDS ORDERED: SODIUM CHLORIDE 0.9% 1,000 ML IV STA (20:00)
[2017-03-18] MEDS ORDERED: methylPREDNISolone SOD SUCCI 125 MG/2 ML VIAL IV STA (20:00)
[2017-03-18] MEDS ORDERED: IPRATROPIUM-ALBUTEROL 3 ML NEB INHALATION STA (20:00)
--- NOTE | 2017-03-18 20:06 | ED ---
SOB HPI - General Chief Complaint: Shortness of Breath Stated Complaint: SOB Time Seen by Provider: 03/18/17 19:50 Source: patient, family Mode of arrival: wheelchair Limitations: no limitations - History of Present Illness Initial Comments: This 46-year-old white female presents with a complaint of shortness of breath. This is been present for approximately 8 days. She states that it initially started with a ear infection 8 days ago and then progressed into coughing, shortness of breath, and wheezing approximately 5 days ago. She's been on Levaquin as well as prednisone and breathing treatments for last 5 days. She does have a long history of multiple pulmonary concerns including COPD and sarcoidosis. She states that she was trying to obtain home oxygen right now is on home oxygen oftentimes does help. She does have a pulse ox at home and states that her pulse ox is been running in the high 80s today. She states that she feels confused at times as well. She has occasional chest burning with coughing as well as some pain in the lateral inferior right chest. She denies any other complaints or modifying factors. - Related Data Home Medications Medication Instructions Recorded Confirmed Cetirizine HCl [Zyrtec] 10 mg PO DAILY PRN 07/16/14 03/18/17 Ergocalciferol [Vitamin D2 50,000 units PO TH 07/16/14 03/18/17 (DRISDOL)] lamoTRIgine [LaMICtal] 200 mg PO DAILY 03/22/16 03/18/17 Baclofen [Lioresal] 20 mg PO TID 10/18/16 03/18/17 Bumetanide 2 mg PO BID 10/18/16 03/18/17 Butalb/APAP/Caff 50-325-40Mg 1 tab PO Q6H PRN 10/18/16 03/18/17 [Fioricet 50-325-40] Ondansetron HCl [Zofran] 4 mg PO DAILY PRN 10/18/16 03/18/17 Potassium Chloride ER [K-Dur 10] 20 meq PO HS 10/18/16 03/18/17 Pregabalin [Lyrica] 100 mg PO BID 10/18/16 03/18/17 Beclomethasone Dipropionate [Qvar 2 puff INHALATION RT-BID 03/17/17 03/18/17 40 mcg] Levofloxacin [Levaquin] 750 mg PO DAILY 03/17/17 03/18/17 Promethazine [Phenergan] 12.5 mg PO Q6HR 03/17/17 03/18/17 Morphine Sulfate 15 mg PO TID 03/18/17 03/18/17 Previous Rx's Medication Instructions Recorded Albuterol Inhaler [Ventolin Hfa 2 puff INHALATION RT-Q6H PRN #1 08/20/15 Inhaler] puff FLUoxetine HCL [PROzac] 20 mg PO DAILY #30 capsule 08/20/15 Metoprolol Tartrate [Lopressor] 50 mg PO BID #60 tab 08/20/15 Mirtazapine [Remeron] 30 mg PO HS #30 tablet 08/20/15 Montelukast [Singulair] 10 mg PO HS #30 tab 08/20/15 ALPRAZolam [Xanax] 0.5 mg PO QID PRN #20 tab 04/17/16 HYDROcodone/APAP 10-325MG [[place] 1 tab PO Q6H PRN #15 tab 10/02/16 10-325] Allergies Allergy/AdvReac Type Severity Reaction Status Date / Time ketorolac tromethamine Allergy Severe Anaphylaxis Verified 03/18/17 19:53 [From Toradol] Opioids - Morphine Analogues Allergy Mild Itching Verified 03/18/17 19:53 Iodinated Contrast- Oral and Allergy Unknown Verified 03/18/17 19:53 IV Dye rivaroxaban [From Xarelto] Allergy Rash/Hives Verified 03/18/17 19:53 sumatriptan [From Imitrex] Allergy Anaphylaxis Verified 03/18/17 19:53 sumatriptan succinate Allergy Anaphylaxis Verified 03/18/17 19:53 [From Imitrex] morphine AdvReac Severe Itching Verified 03/18/17 19:53 iodine AdvReac Intermediate Itching Verified 03/18/17 19:53 vancomycin AdvReac Itching Verified 03/18/17 19:53 Rich wipes AdvReac Severe Rash/Hives Uncoded 03/18/17 19:37 Review of Systems ROS Statement: Those systems with pertinent positive or pertinent negative responses have been documented in the HPI. ROS Other: All systems not noted in ROS Statement are negative. Past Medical History Past Medical History: Blood Disorder, Heart Failure, COPD, Deep Vein Thrombosis (DVT), Hyperlipidemia, Hypertension, Myocardial Infarction (CT), Musculoskeletal Disorder, Pneumonia, Pulmonary Embolus (PE) Additional Past Medical History / Comment(s): PE 2012; Sarcoidosis diagnosed in 2015 following a bronchoscopy and lung biopsy done at [facility] and she was started on predniosone and she took the therapy for almost 1 year, polycythemia, overweight, bilateral PE (2011, 2015), bilateral DVTs, fibromyalgia, bipolar disorder, degenerative disk disorder, coronary artery disease along with previous history of a CT and ventilator dependent respiratory failure with MRSA pneumonia for which the patient was hospitalized [facility] in 2012. Viral meningitis in October 2014. Last Myocardial Infarction Date:: February 15, 2013 History of Any Multi-Drug Resistant Organisms: MRSA Date of last positivie culture/infection: 2013 MDRO Source:: Lungs Past Surgical History: Section, Cholecystectomy, Heart Catheterization , Hernia Repair, Orthopedic Surgery Additional Past Surgical History / Comment(s): Lt ankle surgery,BRONCH Past Anesthesia/Blood Transfusion Reactions: Motion Sickness, Postoperative Nausea & Vomiting (PONV) Past Psychological History: Anxiety, Bipolar, Depression, Panic Disorder Smoking Status: Former smoker Past Alcohol Use History: None Reported Past Drug Use History: None Reported - Past Family History Father Family Medical History: Blood Disorder, Congestive Heart Failure (CHF), CVA/TIA , Deep Vein Thrombosis (DVT), Myocardial Infarction (CT) Additional Family Medical History / Comment(s): polycythemia Mother Family Medical History: Congestive Heart Failure (CHF), Diabetes Mellitus, Deep Vein Thrombosis (DVT), Myocardial Infarction (CT), Musculoskeletal Disorder Sister(s) Family Medical History: No Reported History Brother(s) Family Medical History: No Reported History Son(s) Family Medical History: No Reported History Daughter(s) Family Medical History: No Reported History General Exam - General Exam Comments Initial Comments: GENERAL: The patient is well nourished and well hydrated. VITAL SIGNS: Heart rate, blood pressure, respiratory rate reviewed as recorded in nurse's notes. EYES: Pupils are round and reactive. Extraocular movements are intact. No conjunctival / lid redness or swelling. ENT: No external evidence of injury, swelling, or ecchymosis. Airway is patent. Throat is clear. NECK: Nontender. No swelling or evidence of injury. No subcutaneous emphysema. Trachea is midline. No thyroid mass. HEART: Regular rate and rhythm. Good peripheral pulses. LUNGS/CHEST: Wheezing is noted to the bilateral chest. No respiratory distress noted. No ecchymosis, subcutaneous emphysema, or tenderness. ABDOMEN: Abdomen soft without tenderness. No palpable masses or organomegaly. No peritoneal signs. No abdominal wall swelling or ecchymosis. EXTREMITIES: No extremity tenderness. Normal muscle tone and function. No thoracolumbar tenderness. NEUROLOGIC: Sensation is grossly intact. Cranial nerve exam reveals face is symmetrical, tongue is midline, speech is clear. SKIN: No abrasions or ecchymosis is noted. No induration or masses noted. PSYCHIATRIC: Alert and oriented. Appropriate behavior and judgment. Limitations: no limitations Course Vital Signs 03/18/17 03/18/17 03/18/17 19:32 20:19 20:36 Temperature 99.2 F Pulse Rate 91 79 82 Respiratory 22 Rate Blood Pressure 147/81 O2 Sat by Pulse 96 Oximetry 03/18/17 03/18/17 20:39 20:41 Temperature Pulse Rate 83 Respiratory 20 20 Rate Blood Pressure 131/80 O2 Sat by Pulse 95 Oximetry Medical Decision Making - Medical Decision Making The patient was seen and examined. All diagnostics were reviewed. The EKG shows a normal sinus rhythm at a rate of 78. There is no acute ST-T wave changes identified. The [place] intervals 140, QRS duration is 70, and the QTC intervals 430. The laboratories reviewed and does show a mild leukocytosis as well as elevation of the d-dimer. The chest x-ray shows possible bronchitis. Her antibiotics will be changed from Levaquin to Rocephin and Zithromax. She also will be started on Lovenox as her d-dimer is elevated and she does have a history of PE. She is not been on any anticoagulants for at least 4 months. She states that at one time she did have a Maria T filter but this was subsequently removed. She is requesting pain medications. She is well-known to previous ER staff for narcotic abuse. She is given her normal home medications. It is felt as though she benefit from admission to the hospital and is agreeable. Case is discussed with Clementina from internal medicine and they' re agreeable with admission. - Lab Data Result diagrams: 03/18/17 20:26 03/18/17 20:26 Lab Results 03/18/17 03/18/1717 Range/Units 20:26 20:26 20:26 WBC 12.8 H (3.8-10.6) k/uL RBC 4.81 (3.80-5.40) m/uL Hgb 15.2 (11.4-16.0) gm/dL Hct 46.5 H (34.0-46.0) % MCV 96.7 (80.0-100.0) fL MCH 31.6 (25.0-35.0) pg MCHC 32.7 (31.0-37.0) g/dL RDW 15.1 (11.5-15.5) % Plt Count 283 (150-450) k/uL Neutrophils % 75 % Lymphocytes % 17 % Monocytes % 5 % Eosinophils % 1 % Basophils % 1 % Neutrophils # 9.6 H (1.3-7.7) k/uL Lymphocytes # 2.1 (1.0-4.8) k/uL Monocytes # 0.7 (0-1.0) k/uL Eosinophils # 0.2 (0-0.7) k/uL Basophils # 0.1 (0-0.2) k/uL PT (9.0-12.0) sec INR (<1.2) APTT (22.0-30.0) sec D-Dimer (<0.60) mg/L FEU Sodium 140 (137-145) mmol/L Potassium 3.7 (3.5-5.1) mmol/L Chloride 106 (98-107) mmol/L Carbon Dioxide 20 L (22-30) mmol/L Anion Gap 14 mmol/L BUN 15 (7-17) mg/dL Creatinine 0.70 (0.52-1.04) mg/dL Est GFR (MDRD) Af Amer >60 (>60 ml/min/1.73 sqM) Est GFR (MDRD) Non-Af >60 (>60 ml/min/1.73 sqM) Glucose 142 H (74-99) mg/dL Calcium 9.4 (8.4-10.2) mg/dL Total Bilirubin 0.4 (0.2-1.3) mg/dL AST 28 (14-36) U/L ALT 40 (9-52) U/L Alkaline Phosphatase 80 (38-126) U/L Total Creatine Kinase 46 (30-135) U/L CK-MB (CK-2) 0.6 (0.0-2.4) ng/mL CK-MB (CK-2) Rel Index 1.3 Troponin I <0.012 (0.000-0.034) ng/mL NT-Pro-B Natriuret Pep pg/mL Total Protein 7.1 (6.3-8.2) g/dL Albumin 3.9 (3.5-5.0) g/dL 03/18/17 03/18/17 Range/Units 20:26 20:26 WBC (3.8-10.6) k/uL RBC (3.80-5.40) m/uL Hgb (11.4-16.0) gm/dL Hct (34.0-46.0) % MCV (80.0-100.0) fL MCH (25.0-35.0) pg MCHC (31.0-37.0) g/dL RDW (11.5-15.5) % Plt Count (150-450) k/uL Neutrophils % % Lymphocytes % % Monocytes % % Eosinophils % % Basophils % % Neutrophils # (1.3-7.7) k/uL Lymphocytes # (1.0-4.8) k/uL Monocytes # (0-1.0) k/uL Eosinophils # (0-0.7) k/uL Basophils # (0-0.2) k/uL PT 10.5 (9.0-12.0) sec INR 1.1 (<1.2) APTT 22.5 (22.0-30.0) sec D-Dimer 0.61 H (<0.60) mg/L FEU Sodium (137-145) mmol/L Potassium (3.5-5.1) mmol/L Chloride (98-107) mmol/L Carbon Dioxide (22-30) mmol/L Anion Gap mmol/L BUN (7-17) mg/dL Creatinine (0.52-1.04) mg/dL Est GFR (MDRD) Af Amer (>60 ml/min/1.73 sqM) Est GFR (MDRD) Non-Af (>60 ml/min/1.73 sqM) Glucose (74-99) mg/dL Calcium (8.4-10.2) mg/dL Total Bilirubin (0.2-1.3) mg/dL AST (14-36) U/L ALT (9-52) U/L Alkaline Phosphatase (38-126) U/L Total Creatine Kinase (30-135) U/L CK-MB (CK-2) (0.0-2.4) ng/mL CK-MB (CK-2) Rel Index Troponin I (0.000-0.034) ng/mL NT-Pro-B Natriuret Pep 347 pg/mL Total Protein (6.3-8.2) g/dL Albumin (3.5-5.0) g/dL Disposition Clinical Impression: Dyspnea, COPD exacerbation, Sarcoidosis, Hypoxia, Hypertension, Chest pain, Morbid obesity, Bronchitis Disposition: ADMITTED IP TO THIS HOSP Condition: Fair Time of Disposition: 21:30 Decision Date: 03/18/17 Decision Time: 21:30
[2017-03-18 20:38] LABS: Basophils # (A) 0.1 k/uL (0-0.2); Basophils % (A) 1 %; CH 32.1; CHCM 33.4; Eosinophils # (A) 0.2 k/uL (0-0.7); Eosinophils % (A) 1 %; HCT 46.5 % (34.0-46.0); HDW 2.65; HGB 15.2 gm/dL (11.4-16.0); Luc # (Auto) 0.16; Luc % (Auto) 1; Lymphocytes # (A) 2.1 k/uL (1.0-4.8); Lymphocytes % (A) 17 %; MCH 31.6 pg (25.0-35.0); MCHC 32.7 g/dL (31.0-37.0); MCV 96.7 fL (80.0-100.0); Mean Platelet Volume 7.7; Monocytes # (A) 0.7 k/uL (0-1.0); Monocytes % (A) 5 %; Neutrophils # (A) 9.6 k/uL (1.3-7.7); Neutrophils % (A) 75 %; RBC 4.81 m/uL (3.80-5.40); RDW 15.1 % (11.5-15.5); WBC 12.8 k/uL (3.8-10.6)
[2017-03-18 20:54] LABS: ALT 40 U/L (9-52); AST 28 U/L (14-36); Alkaline Phosphatase 80 U/L (38-126); Anion Gap 14 mmol/L; Blood Urea Nitrogen 15 mg/dL (7-17); Calcium 9.4 mg/dL (8.4-10.2); Carbon Dioxide 20 mmol/L (22-30); Chloride 106 mmol/L (98-107); Glucose 142 mg/dL (74-99); INR 1.1 (<1.2); Non-African American GFR(MDRD) >60 (>60 ml/min/1.73 sqM); Partial Thromboplastin Time 22.5 sec (22.0-30.0); Potassium 3.7 mmol/L (3.5-5.1); Prothrombin Time 10.5 sec (9.0-12.0); Sodium 140 mmol/L (137-145); Total Bilirubin 0.4 mg/dL (0.2-1.3); Total Protein 7.1 g/dL (6.3-8.2)
[2017-03-18 20:55] LABS: Creatine Kinase 46 U/L (30-135)
[2017-03-18 21:08] LABS: Creatine Kinase MB 0.6 ng/mL (0.0-2.4); Troponin I <0.012 ng/mL (0.000-0.034)
--- NOTE | 2017-03-18 21:15 | XR ---
EXAMINATION TYPE: XR chest 2V DATE OF EXAM: 03/18/2017 COMPARISON: 03/17/2017 HISTORY: 46-year-old female with possible infiltrate, cough and shortness of breath TECHNIQUE: PA and lateral views FINDINGS: The cardiomediastinal silhouette, aorta, and pulmonary vasculature are within normal limits. Mild dif fuse interstitial prominence. No consolidation or pleural effusion. IMPRESSION: Interstitial prominence could reflect bronchitis or chronic asthma. No focal infiltrate to suggest pn eumonia.
[2017-03-18] MEDS ORDERED: HYDROcodone/APAP 10-325MG 1 EACH TAB PO ONE (21:23)
[2017-03-18] MEDS ORDERED: ENOXAPARIN 100 MG/ML SYRINGE SQ STA (21:24)
[2017-03-18] MEDS ORDERED: cefTRIAXone IN SWFI 1,000 MG/10 ML SYRINGE IVP STA (21:32)
[2017-03-18] MEDS ORDERED: AZITHROMYCIN 500 MG in SODIUM CHLORIDE 0.9% 250 ML IVPB STA (21:32)
[2017-03-18] MEDS ORDERED: ASPIRIN 81 MG PO STA (21:34)
[2017-03-18] MEDS ORDERED: NITROGLYCERIN SL TABS 0.4 MG TAB SUBLINGUAL PRN (21:34)
[2017-03-18] MEDS ORDERED: ONDANSETRON 4 MG TAB PO PRN (21:36)
[2017-03-18] MEDS ORDERED: BUTALB/APAP/CAFF 50-325-40MG TAB PO PRN (21:36)
[2017-03-18] MEDS ORDERED: LORATADINE 10 MG TAB PO PRN (21:36)
[2017-03-18] MEDS: ALPRAZolam 0.5 MG TAB PO PRN (22:36)
[2017-03-18 22:49] VITALS: BMI 37.0
[2017-03-18] MEDS: MORPHINE SULFATE IR 15 MG TABLET PO SCH (23:00)
[2017-03-18] MEDS: BACLOFEN 10 MG TAB PO SCH (23:00)
[2017-03-19] MEDS ORDERED: IPRATROPIUM-ALBUTEROL 3 ML NEB INHALATION SCH
[2017-03-19] MEDS: IPRATROPIUM-ALBUTEROL 3 ML NEB INHALATION PRN ×2 (00:27→22:50)
[2017-03-19] MEDS ORDERED: HYDROmorphone 1 MG/ML 1 ML SYRINGE IVP STA ×2 (01:17→12:36)
[2017-03-19] MEDS ORDERED: guaiFENesin SYRUP 100MG/5ML 200 MG/10 ML CUP PO PRN (01:19)
[2017-03-19] MEDS: NITROGLYCERIN OINT 1 INCH/GM PACKET TOPICAL SCH ×5 (01:54→23:53)
[2017-03-19] MEDS: MIRTAZAPINE 15 MG TAB PO SCH ×2 (01:54→22:17)
[2017-03-19] MEDS: PROMETHAZINE 25 MG TAB PO SCH ×5 (01:55→22:22)
[2017-03-19 04:04] LABS: Cholesterol 214 mg/dL (<200); HDL Cholesterol 57 mg/dL (40-60)
[2017-03-19 04:11] LABS: Creatine Kinase 41 U/L (30-135)
[2017-03-19 04:25] LABS: Creatine Kinase MB 0.7 ng/mL (0.0-2.4); Troponin I <0.012 ng/mL (0.000-0.034)
[2017-03-19 05:52] LABS: Glucose,Whole Blood 207 mg/dL (75-99)
[2017-03-19] MEDS: NYSTATIN 100,000 UNIT/ML SUSP 500,000 UNIT/5 ML CUP PO SCH ×4 (05:58→22:22)
[2017-03-19] MEDS: MAG HYDROX/AL HYDROX/SIMETH 30 ML, diphenhydrAMINE ELIXIR 75 MG, LIDOCAINE VISCOUS 30 ML PO SCH ×9 (05:58→23:52)
[2017-03-19] MEDS: HYDROcodone/APAP 10-325MG 1 EACH TAB PO PRN ×4 (05:58→23:56)
[2017-03-19] MEDS: INSULIN ASPART 100 UNIT/ML 1 ML 10 ML VIAL SQ SCH ×4 (06:34→22:28)
[2017-03-19] MEDS: IPRATROPIUM-ALBUTEROL 3 ML NEB INHALATION SCH ×4 (07:41→19:20)
[2017-03-19] MEDS: BUDESONIDE 0.5 MG/2 ML NEBU INHALATION SCH ×2 (07:41→19:20)
[2017-03-19] MEDS ORDERED: methylPREDNISolone SOD SUCCI 125 MG/2 ML VIAL IV SCH (09:00)
[2017-03-19] MEDS ORDERED: RX INFO: IV CONTRAST WAS GIVEN 1 EACH MISC MISCELLANE PRN (09:01)
[2017-03-19] MEDS: BACLOFEN 10 MG TAB PO SCH ×3 (09:05→22:20)
[2017-03-19] MEDS: ENOXAPARIN 100 MG/ML SYRINGE SQ SCH ×3 (09:05→22:18)
[2017-03-19] MEDS: MORPHINE SULFATE IR 15 MG TABLET PO SCH ×3 (09:06→22:17)
[2017-03-19] MEDS: ALPRAZolam 0.5 MG TAB PO PRN ×2 (09:07→22:25)
[2017-03-19] MEDS: FLUoxetine HCL 20 MG CAP PO SCH (09:07)
[2017-03-19] MEDS: BUMETANIDE 1 MG TAB PO SCH ×2 (09:07→22:17)
[2017-03-19] MEDS: METOPROLOL TARTRATE 50 MG TAB PO SCH ×2 (09:07→22:18)
[2017-03-19] MEDS: ASPIRIN 325 MG TAB PO SCH (09:07)
[2017-03-19] MEDS: PREGABALIN 100 MG CAP PO SCH ×2 (09:07→22:42)
[2017-03-19] MEDS: lamoTRIgine 100 MG TAB PO SCH (09:07)
[2017-03-19] MEDS ORDERED: LORazepam 2 MG/ML INJ IV STA ×2 (09:14→16:02)
[2017-03-19] MEDS ORDERED: methylPREDNISolone SOD SUCCI 125 MG/2 ML VIAL IV ONE (09:15)
[2017-03-19 09:26] LABS: Creatine Kinase 39 U/L (30-135)
[2017-03-19 09:39] LABS: Creatine Kinase MB 0.7 ng/mL (0.0-2.4); Troponin I <0.012 ng/mL (0.000-0.034)
[2017-03-19] MEDS ORDERED: diphenhydrAMINE 50 MG/ML 1 ML VIAL IVP ONE (10:00)
[2017-03-19] MEDS ORDERED: FAMOTIDINE 20 MG/2 ML VIAL IV ONE (10:00)
--- NOTE | 2017-03-19 10:01 | CONS ---
CONSULTATION CHIEF COMPLAINT: Shortness of breath and chest discomfort. Meme is a 46-year-old lady with history of sarcoidosis, DVT and pulmonary embolism, pneumonia, respiratory insufficiency, who presented to hospital complaining of right- sided chest discomfort that is sharp, atypical without mild intensity, without clear- cut relieving or exacerbating factors. Cardiology had been consulted because of her chest discomfort. She has a mildly elevated D-dimer at 0.61. She could not have a CT scan of the chest because of lack of vascular access. Patient at home she used to be on anticoagulant at one time, but that had been stoppled. Current list of medications do not include do not include an anticoagulant. EKG shows sinus rhythm, normal axis, normal intervals. Cardiac enzymes have been negative. PAST MEDICAL HISTORY: Significant for COPD, hypertension, sarcoidosis, and prior history of DVT and pulmonary embolism. CURRENT MEDICATIONS: Include morphine 15 mg t.i.d., K-Dur, Zofran, Singulair, Remeron, albuterol, Lamictal, Phenergan, Lopressor 50 b.i.d., Levaquin, [place], Prozac, Zyrtec, Bumex, Qvar, and Xanax. Patient has multiple drug allergies including IV DYE, TORADOL, XARELTO, IMITREX, MORPHINE, IODINE, VANCOMYCIN. FAMILY HISTORY: Negative for premature coronary artery disease. SOCIAL HISTORY: Negative for current smoking, EtOH abuse or drug abuse. REVIEW OF SYSTEMS: HEENT is unremarkable. CARDIAC: As described above. RESPIRATORY: As described above. PSYCHOSOCIAL: Negative. ENDOCRINE: Negative. DERM: Negative. CONSTITUTIONAL: Negative. ONCOLOGICAL: Negative. The rest of the system review is not relevant. PHYSICAL EXAM: Afebrile, heart rate is 83, blood pressure is 133/83, respiratory rate is 18. There is no jugular venous distention. Carotid upstroke is normal. There is no bruit. Chest exam reveals occasional rhonchi bilaterally. Heart exam reveals first and second heart sounds. No gallop. Abdomen is soft. Exam of the extremities did not reveal any edema. Peripheral pulses are felt. LABS: Showed that the hemoglobin is 15.2, potassium is 3.7, creatinine is 0.7. Troponin is normal. BNP is normal. LDL cholesterol is 88. ASSESSMENT: 1. Precordial chest pain, atypical, noncardiac in origin. 2. History of chronic obstructive pulmonary disease with chronic obstructive pulmonary disease exacerbation, mild D-dimer elevation of unclear clinical significance. Whenever patient has a vascular access, we can consider doing scan, but she has had issues getting a CT scan done even at her last admission in September. I reviewed the echocardiogram done at that time and she has normal LV function. ROBERT / KELI: [id number] /
--- NOTE | 2017-03-19 11:14 | CT ---
EXAMINATION TYPE: CT chest angio for PE DATE OF EXAM: 03/19/2017 COMPARISON: CT chest October 19, 2015. HISTORY: Shortness of breath rule out pulmonary embolism CT DLP: 456.10 mGycm. Automated Exposure Control for Dose Reduction was Utilized. CONTRAST: CTA scan of the thorax is performed with IV Contrast, patient injected with 100 mL of Omnipaque 350, pulmonary embolism protocol. MIP Images are created on CT scanner and reviewed. FINDINGS: LUNGS: Slightly elevated left hemidiaphragm is redemonstrated. There is mild to borderline moderate u nderlying emphysematous change most prominent in bilateral lung apices. There is dependent atelectasi s in both lower lobes. There is no suspicious focal groundglass opacity or consolidation. No signific ant pleural effusion or pneumothorax is seen bilaterally. MEDIASTINUM: There is suboptimal bolus with equal contrast seen in right and left heart systems. Ther e is no large central pulmonary embolism, smaller segmental and subsegmental PE cannot be entirely ex cluded on this exam though none are identified. There are no greater than 1 cm hilar or mediastinal lymph nodes. No cardiomegaly or pericardial effusion is seen. There is bovine type arch which is no rmal variant OTHER: Gallbladder is not visualized and presumed surgically absent. IMPRESSION: 1. Suboptimal study without CT evidence for central pulmonary embolism. Smaller segmental and subsegm ental PE though not distinctly visualized cannot be entirely excluded on this study. 2. Mild underlying emphysematous change without suspicious focal infiltrate.
[2017-03-19 11:48] LABS: Glucose,Whole Blood 175 mg/dL (75-99)
[2017-03-19] MEDS: methylPREDNISolone SOD SUCCI 125 MG/2 ML VIAL IV SCH ×3 (12:58→22:21)
--- NOTE | 2017-03-19 15:47 | P.CNPUL ---
History of Present Illness Consult date: 03/19/17 Requesting physician: Gonsalo Church Reason for consult: dyspnea, cough ( R preserved and then it is constantly keeps changing things are changing in), chest pain, hypoxemia, pulmonary embolism, abnormal CXR/CT Chief complaint: Increased shortness ofbreath, right posterior chest pain, hypoxemia, fever History of present illness: And is a 46-year-old white female patient was with ANABELL Thornton, presented to the emergency department on 03/18/2017 at 1930 with complaints of increasing shortness of breath, hypoxemia with O2 sat in the 80's on room air, fever, right posterior chest pain that was worsened with deep inspiration. Her symptoms started about a week ago, with a upper respiratory infection symptoms, sore throat, right ear pain, coughing. She was treated by her PCP with oral Levaquin, and high-dose prednisone 50 mg daily, with no relief, and her symptoms evolved into chest congestion, shortness of breath and fever. There was initially some sputum production, but now she is not able to bring up any sputum. Reportedly chest x-ray was taken and she was told she has pneumonia. Patient is currently having insurance problems, and her oxygen was taken back by the medical supply store. She does require oxygen on a regular basis, at 2 L per nasal cannula. Other medical history includes COPD, sarcoidosis, bronchial asthma, pulmonary embolism, DVTs, heart failure, hypertension, MO, MRSA pneumonia. She continues to smoke, despite her multiple episodes of hospitalizations for chronic pulmonary issues and lung infections. Per patient , patient was hospitalized and intubated multiple times, at this facility and at the [facility] in [place]. She had been on Coumadin for the history of pulmonary embolism and DVTs for 3 years, and was recently taken off of it by her PCP because she did not have a recurrence of DVT in over a year. She has a history of [place] filter placement and removal. On presentation to the emergency department her temperature is 99.2, her O2 sat was 96% on room air, KG showed normal sinus rhythm with a rate of 78 BPM, blood pressure was normal. Chest x-ray on 03/18/2017 shows interstitial prominence that could reflect bronchitis or chronic asthma. No focal infiltrate to suggest pneumonia. Lab work was reviewed, WBC was 12.8, hemoglobin is 15.2, d-dimer was slightly elevated at 0.61, no significant electrolyte abnormality, B1 is 15, creatinine 0.70, troponins were negative 3, cardiac enzymes were negative 3, proBNP was also negative at 347, triglycerides were elevated at 346, and cholesterol was 214. CTA chest on 03/19/2017 was suboptimal, but without evidence of central pulmonary embolism. Smaller segmental and subsegmental PE could not be distinctly visualized but could not be entirely excluded. Reports left leg circumference increase, has not been on any anticoagulation for last 6-7 months. She was initiated on Zithromax and Rocephin, DuoNeb nebulized treatments, Pulmicort, Lovenox 100 mg subcu twice a day, IV Solu-Medrol. Review of Systems All systems: negative Constitutional: Denies chills, Denies fever Eyes: denies blurred vision, denies pain Ears: right: earache (Recent ear infection) Ears, nose, mouth and throat: Denies headache, Denies sore throat Cardiovascular: Denies chest pain, Denies shortness of breath Respiratory: Reports congestion, Reports dyspnea, Reports home oxygen, Reports pain on inspiration, Reports respiratory infections, Reports sleep apnea, Denies cough Gastrointestinal: Denies abdominal pain, Denies diarrhea, Denies nausea, Denies vomiting Genitourinary: Denies dysuria, Denies hematuria Musculoskeletal: Denies myalgias Integumentary: Denies pruritus, Denies rash Neurological: Denies numbness, Denies weakness Psychiatric: Denies anxiety, Denies depression Endocrine: Denies fatigue, Denies weight change Past Medical History Past Medical History: Blood Disorder, Heart Failure, COPD, Deep Vein Thrombosis (DVT), Hyperlipidemia, Hypertension, Myocardial Infarction (MO), Musculoskeletal Disorder, Pneumonia, Pulmonary Embolus (PE) Additional Past Medical History / Comment(s): PE 2012; Sarcoidosis diagnosed in 2015 following a bronchoscopy and lung biopsy done at [facility] and she was started on predniosone and she took the therapy for almost 1 year, polycythemia, overweight, bilateral PE (2011, 2015), bilateral DVTs, fibromyalgia, bipolar disorder, degenerative disk disorder, coronary artery disease along with previous history of a MO and ventilator dependent respiratory failure with MRSA pneumonia for which the patient was hospitalized [facility] in 2012. Viral meningitis in October 2014. Last Myocardial Infarction Date:: February 15, 2013 History of Any Multi-Drug Resistant Organisms: MRSA Date of last positivie culture/infection: 2013 MDRO Source:: Lungs Past Surgical History: Section, Cholecystectomy, Heart Catheterization , Hernia Repair, Orthopedic Surgery Additional Past Surgical History / Comment(s): Lt ankle surgery,BRONCH Past Anesthesia/Blood Transfusion Reactions: Motion Sickness, Postoperative Nausea & Vomiting (PONV) Additional Past Anesthesia/Blood Transfusion Reaction / Comment(s): pt stated that last April she coded due to anesthetic Past Psychological History: Anxiety, Bipolar, Depression, Panic Disorder Additional Psychological History / Comment(s): pt. states she is on medication for depression and feels well maintained. Smoking Status: Current some day smoker Past Alcohol Use History: None Reported Additional Past Alcohol Use History / Comment(s): pt states started smoking in 1987 Past Drug Use History: None Reported - Past Family History Father Family Medical History: Blood Disorder, Congestive Heart Failure (CHF), CVA/TIA , Deep Vein Thrombosis (DVT), Myocardial Infarction (MO) Additional Family Medical History / Comment(s): polycythemia Mother Family Medical History: Congestive Heart Failure (CHF), Diabetes Mellitus, Deep Vein Thrombosis (DVT), Myocardial Infarction (MO), Musculoskeletal Disorder Sister(s) Family Medical History: No Reported History Brother(s) Family Medical History: No Reported History Son(s) Family Medical History: No Reported History Daughter(s) Family Medical History: No Reported History Medications and Allergies Home Medications Medication Instructions Recorded Confirmed Type Cetirizine HCl [Zyrtec] 10 mg PO DAILY PRN 07/16/14 03/18/17 History Ergocalciferol [Vitamin D2 50,000 units PO TH 07/16/14 03/18/17 History (DRISDOL)] Albuterol Inhaler [Ventolin Hfa 2 puff INHALATION RT-Q6H PRN #1 08/20/15 Rx Inhaler] puff FLUoxetine HCL [PROzac] 20 mg PO DAILY #30 capsule 08/20/15 03/18/17 Rx Metoprolol Tartrate [Lopressor] 50 mg PO BID #60 tab 08/20/15 03/18/17 Rx Mirtazapine [Remeron] 30 mg PO HS #30 tablet 08/20/15 03/18/17 Rx Montelukast [Singulair] 10 mg PO HS #30 tab 08/20/15 03/18/17 Rx lamoTRIgine [LaMICtal] 200 mg PO DAILY 03/22/16 03/18/17 History ALPRAZolam [Xanax] 0.5 mg PO QID PRN #20 tab 04/17/16 03/18/17 Rx HYDROcodone/APAP 10-325MG [[place] 1 tab PO Q6H PRN #15 tab 10/02/16 03/18/17 Rx 10-325] Baclofen [Lioresal] 20 mg PO TID 10/18/16 03/18/17 History Bumetanide 2 mg PO BID 10/18/16 03/18/17 History Butalb/APAP/Caff 50-325-40Mg 1 tab PO Q6H PRN 10/18/16 03/18/17 History [Fioricet 50-325-40] Ondansetron HCl [Zofran] 4 mg PO DAILY PRN 10/18/16 03/18/17 History Potassium Chloride ER [K-Dur 10] 20 meq PO HS 10/18/16 03/18/17 History Pregabalin [Lyrica] 100 mg PO BID 10/18/16 03/18/17 History Beclomethasone Dipropionate [Qvar 2 puff INHALATION RT-BID 03/17/17 03/18/17 History 40 mcg] Levofloxacin [Levaquin] 750 mg PO DAILY 03/17/17 03/18/17 History Promethazine [Phenergan] 12.5 mg PO Q6HR 03/17/17 03/18/17 History Morphine Sulfate 15 mg PO TID 03/18/17 03/18/17 History Allergies Allergy/AdvReac Type Severity Reaction Status Date / Time ketorolac tromethamine Allergy Severe Anaphylaxis Verified 03/18/17 19:53 [From Toradol] Opioids - Morphine Analogues Allergy Mild Itching Verified 03/18/17 19:53 Iodinated Contrast- Oral and Allergy Unknown Verified 03/18/17 19:53 IV Dye rivaroxaban [From Xarelto] Allergy Rash/Hives Verified 03/18/17 19:53 sumatriptan [From Imitrex] Allergy Anaphylaxis Verified 03/18/17 19:53 sumatriptan succinate Allergy Anaphylaxis Verified 03/18/17 19:53 [From Imitrex] morphine AdvReac Severe Itching Verified 03/18/17 19:53 iodine AdvReac Intermediate Itching Verified 03/18/17 19:53 vancomycin AdvReac Itching Verified 03/18/17 19:53 Rich wipes AdvReac Severe Rash/Hives Uncoded 03/18/17 19:37 Physical Exam Vitals: Vital Signs Temp Pulse Pulse Resp BP BP Pulse Ox 03/19/17 12:00 16 03/19/17 11:51 97 F L 78 16 107/66 95 03/19/17 11:27 95 03/19/17 11:16 89 03/19/17 08:00 97.4 F L 91 20 141/82 98 03/19/17 04:00 97.2 F L 83 20 133/83 96 03/19/17 00:40 104 H 03/19/17 00:28 100 03/19/17 00:00 97.0 F L 80 18 114/72 94 L 03/18/17 22:38 97.0 F L 80 18 135/86 96 03/18/17 22:12 98 F 84 18 142/70 99 03/18/17 20:41 20 03/18/17 20:39 83 20 131/80 95 03/18/17 20:36 82 03/18/17 20:19 79 03/18/17 19:32 99.2 F 91 22 147/81 96 Intake and Output 03/19/17 03/19/17 03/19/17 06:59 14:59 22:59 Intake Total 200 1120 Balance 200 1120 Intake: IV 1000 Sodium Chloride 0.9% 1, 1000 000 ml @ 100 mls/hr IV . Q10H STA Rx#:[id number] Oral 200 120 Other: Voiding Method Toilet # Voids 1 2 Weight 108.5 kg GENERAL EXAM: Alert, pleasant, 46-year-old white female patient, comfortable in no apparent distress. HEAD: Normocephalic/atraumatic. EYES: Normal reaction of pupils, equal size. Conjunctiva pink, sclera white. NOSE: Clear with pink turbinates. THROAT: No erythema or exudates. NECK: No masses, no JVD, no thyroid enlargement, no adenopathy. CHEST: No chest wall deformity. Symmetrical expansion. LUNGS: Decreased air entry bilaterally, with no crackles, wheeze, rhonchi or dullness. CVS: Regular rate and rhythm, normal S1 and S2, no gallops, no murmurs, no rubs ABDOMEN: Soft, nontender. No hepatosplenomegaly, normal bowel sounds, no guarding or rigidity. EXTREMITIES: No clubbing, no cyanosis, 2+ pulses and upper and lower extremities. There is slight nonpitting swelling in the left extremity MUSCULOSKELETAL: Muscle strength and tone normal. SPINE: No scoliosis or deformity SKIN: No rashes CENTRAL NERVOUS SYSTEM: Alert and oriented -3. No focal deficits, tone is normal in all 4 extremities. PSYCHIATRIC: Alert and oriented -3. Appropriate affect. Intact judgment and insight. Results - Laboratory Findings CBC and BMP: 03/18/17 20:26 03/18/17 20:26 PT/INR, D-dimer PT 10.5 sec (9.0-12.0) 03/18/17 20:26 INR 1.1 (<1.2) 03/18/17 20:26 D-Dimer 0.61 mg/L FEU (<0.60) H 03/18/17 20:26 Abnormal lab findings: Abnormal Labs 03/18/17 03/18/17 03/18/17 20:26 20:26 20:26 WBC 12.8 H Hct 46.5 H Neutrophils # 9.6 H D-Dimer 0.61 H Carbon Dioxide 20 L Glucose 142 H POC Glucose (mg/dL) Triglycerides Cholesterol 03/19/17 03/19/17 03/19/17 03:04 05:51 11:45 WBC Hct Neutrophils # D-Dimer Carbon Dioxide Glucose POC Glucose (mg/dL) 207 H 175 H Triglycerides 346 H Cholesterol 214 H - Diagnostic Findings Chest x-ray: report reviewed CT scan - chest: report reviewed Assessment and Plan Assessment: Assessment: #1. Acute on chronic hypoxic respiratory failure due to COPD exacerbation. Chest x-ray on 03/18/2017 shows interstitial prominence, but no focal infiltrate to suggest pneumonia #2. Possible subsegmental pulmonary embolism could not be excluded, CTA on was a suboptimal study with no evidence for central pulmonary embolism. D-dimer was positive at 0.61, will follow up with the VQ scan and bilateral lower leg ultrasound to check for DVTs #3. DVT/pulmonary embolism, not currently on any anticoagulation. Previously was on Coumadin, off the Coumadin for last 6-7 months. #4. Nicotine addiction, ongoing #5. Secondary polycythemia #6. Sarcoidosis, confirmed by lung biopsy at [facility], was placed on maintenance dose prednisone 5 mg daily #7. Obesity with features of obstructive sleep apnea, although this has not been officially confirmed #8. Anxiety #9. Coronary artery disease #10. History of MRSA pneumonia #11. Recurrent hospitalizations and multiple intubations for respiratory complications #12. Bipolar disorder #13. Degenerative disc disease Plan We will obtain a VQ scan and ultrasound of bilateral lower legs to check for DVTs, to help make a decision about anticoagulation. Agree with Lovenox at therapeutic dose, 100 mg twice a day. Continue Solu-Medrol, continue DuoNeb, continue Pulmicort, continue azithromycin and Rocephin, and takes Singulair. Will continue to follow. I performed a history & physical examination of the patient and discussed their management with my nurse practitioner, Cydney Hart. I reviewed the nurse practitioner's note and agree with the documented findings and plan of care. Lung sounds are diminished. The findings and the impression was discussed with the patient. I attest to the documentation by the nurse practitioner. Time with Patient: Greater than 30
--- NOTE | 2017-03-19 17:23 | NM ---
EXAMINATION TYPE: NM pul vent and perfuse DATE OF EXAM: 03/19/2017 COMPARISON: PA and lateral chest radiographs HISTORY: Dyspnea and cough TECHNIQUE: Utilizing inhalation of 70.0 mCi Tc 99m DTPA aerosol and intravenous injection of 4.92 mC i of Tc 99m MAA, ventilation and perfusion images are acquired post injection in multiple projections . FINDINGS: There is mild heterogeneity to the distribution of the radiopharmaceutical activity on the multiplanar perfusion images. Similarly, there is mild heterogeneity to the distribution of the radio tracer from silk activity on the multiplanar ventilation images. However, there is no evidence of mis matched defects. IMPRESSION: Low probability for the diagnosis of pulmonary embolism.
--- NOTE | 2017-03-19 17:29 | P.HPIM ---
History of Present Illness H&P Date: 03/19/17 Chief Complaint: Shortness of breath and right-sided lower chest pain Patient is a 46-year-old female with a known history of COPD, tonic active smoking, sarcoidosis diagnosed in 2016 following a biopsy bronchoscopy at [facility] and is on prednisone currently, polycythemia, history of PE/DVT DJD, bipolar disorder and fibromyalgia, chronic pain, history of coronary disease with history of TX and multiple other medical problems came to ER with complaints of worsening short of breath and right posterior chest pain with deep breathing. Patient says that her symptoms started about a week ago with upper respiratory infection and was started on levofloxacin and prednisone by her primary care physician yesterday patient developed right posterior chest pain with deep breathing is made him come to the hospital. Otherwise patient denied any nausea or vomiting. Patient did have occasional fever. Denied any cough or worsening sputum production. Patient was supposed to be on home oxygen but has not been using using recently. Patient was on Coumadin for PE and DVT for 3 years and was recently taken off by her primary care physician. Patient also has history of Maria T filter placement and removal. Chest x-ray showed interstitial prominence would reflect bronchitis or chronic asthma. No focal infiltrate to suggest pneumonia. CT angiogram showed suboptimal study without CT evidence for central pulmonary embolism. Smaller segmental and subsegmental PE not distinctly visualized, cannot be entirely excluded on this study. Mild underlying emphysematous changes without suspicious for focal infiltrate. EKG showed normal sinus rhythm D-dimer 0.61 and troponin 3 negative Triglycerides 346 Review of Systems Constitutional: Patient denies any fever or chills . No generalized weakness or weight loss. Abdomen: Patient denied nausea vomiting and diarrhea and abdominal pain. Cardiovascular: Patient does have shortness of breath and right posterior chest pain with deep breathing Respiratory: Cough without sputum production and shortness of breath. Neurologic: Patient denied any numbness or tingling headache. Musculoskeletal: Patient denies any complaints of joint swelling or deformity. Chronic back pain Skin: Negative Psychiatric: Anxious Endocrine: No heat or cold intolerance. No recent weight gain. Genitourinary: No dysuria or hematuria. All other 14 point ROS negative except the above Past Medical History Past Medical History: Blood Disorder, Heart Failure, COPD, Deep Vein Thrombosis (DVT), Hyperlipidemia, Hypertension, Myocardial Infarction (TX), Musculoskeletal Disorder, Pneumonia, Pulmonary Embolus (PE) Additional Past Medical History / Comment(s): PE 2012; Sarcoidosis diagnosed in 2015 following a bronchoscopy and lung biopsy done at [facility] and she was started on predniosone and she took the therapy for almost 1 year, polycythemia, overweight, bilateral PE (2011, 2015), bilateral DVTs, fibromyalgia, bipolar disorder, degenerative disk disorder, coronary artery disease along with previous history of a TX and ventilator dependent respiratory failure with MRSA pneumonia for which the patient was hospitalized [facility] in 2012. Viral meningitis in October 2014. Last Myocardial Infarction Date:: February 15, 2013 History of Any Multi-Drug Resistant Organisms: MRSA Date of last positivie culture/infection: 2013 MDRO Source:: Lungs Past Surgical History: Section, Cholecystectomy, Heart Catheterization , Hernia Repair, Orthopedic Surgery Additional Past Surgical History / Comment(s): Lt ankle surgery,BRONCH Past Anesthesia/Blood Transfusion Reactions: Motion Sickness, Postoperative Nausea & Vomiting (PONV) Additional Past Anesthesia/Blood Transfusion Reaction / Comment(s): pt stated that last April she coded due to anesthetic Past Psychological History: Anxiety, Bipolar, Depression, Panic Disorder Additional Psychological History / Comment(s): pt. states she is on medication for depression and feels well maintained. Smoking Status: Current some day smoker Past Alcohol Use History: None Reported Additional Past Alcohol Use History / Comment(s): pt states started smoking in 1987 Past Drug Use History: None Reported - Past Family History Father Family Medical History: Blood Disorder, Congestive Heart Failure (CHF), CVA/TIA , Deep Vein Thrombosis (DVT), Myocardial Infarction (TX) Additional Family Medical History / Comment(s): polycythemia Mother Family Medical History: Congestive Heart Failure (CHF), Diabetes Mellitus, Deep Vein Thrombosis (DVT), Myocardial Infarction (TX), Musculoskeletal Disorder Sister(s) Family Medical History: No Reported History Brother(s) Family Medical History: No Reported History Son(s) Family Medical History: No Reported History Daughter(s) Family Medical History: No Reported History Medications and Allergies Home Medications Medication Instructions Recorded Confirmed Type Cetirizine HCl [Zyrtec] 10 mg PO DAILY PRN 07/16/14 03/18/17 History Ergocalciferol [Vitamin D2 50,000 units PO TH 07/16/14 03/18/17 History (DRISDOL)] Albuterol Inhaler [Ventolin Hfa 2 puff INHALATION RT-Q6H PRN #1 08/20/15 Rx Inhaler] puff FLUoxetine HCL [PROzac] 20 mg PO DAILY #30 capsule 08/20/15 03/18/17 Rx Metoprolol Tartrate [Lopressor] 50 mg PO BID #60 tab 08/20/15 03/18/17 Rx Mirtazapine [Remeron] 30 mg PO HS #30 tablet 08/20/15 03/18/17 Rx Montelukast [Singulair] 10 mg PO HS #30 tab 08/20/15 03/18/17 Rx lamoTRIgine [LaMICtal] 200 mg PO DAILY 03/22/16 03/18/17 History ALPRAZolam [Xanax] 0.5 mg PO QID PRN #20 tab 04/17/16 03/18/17 Rx HYDROcodone/APAP 10-325MG [[place] 1 tab PO Q6H PRN #15 tab 10/02/16 03/18/17 Rx 10-325] Baclofen [Lioresal] 20 mg PO TID 10/18/16 03/18/17 History Bumetanide 2 mg PO BID 10/18/16 03/18/17 History Butalb/APAP/Caff 50-325-40Mg 1 tab PO Q6H PRN 10/18/16 03/18/17 History [Fioricet 50-325-40] Ondansetron HCl [Zofran] 4 mg PO DAILY PRN 10/18/16 03/18/17 History Potassium Chloride ER [K-Dur 10] 20 meq PO HS 10/18/16 03/18/17 History Pregabalin [Lyrica] 100 mg PO BID 10/18/16 03/18/17 History Beclomethasone Dipropionate [Qvar 2 puff INHALATION RT-BID 03/17/17 03/18/17 History 40 mcg] Levofloxacin [Levaquin] 750 mg PO DAILY 03/17/17 03/18/17 History Promethazine [Phenergan] 12.5 mg PO Q6HR 03/17/17 03/18/17 History Morphine Sulfate 15 mg PO TID 03/18/17 03/18/17 History Allergies Allergy/AdvReac Type Severity Reaction Status Date / Time ketorolac tromethamine Allergy Severe Anaphylaxis Verified 03/18/17 19:53 [From Toradol] Opioids - Morphine Analogues Allergy Mild Itching Verified 03/18/17 19:53 Iodinated Contrast- Oral and Allergy Unknown Verified 03/18/17 19:53 IV Dye rivaroxaban [From Xarelto] Allergy Rash/Hives Verified 03/18/17 19:53 sumatriptan [From Imitrex] Allergy Anaphylaxis Verified 03/18/17 19:53 sumatriptan succinate Allergy Anaphylaxis Verified 03/18/17 19:53 [From Imitrex] morphine AdvReac Severe Itching Verified 03/18/17 19:53 iodine AdvReac Intermediate Itching Verified 03/18/17 19:53 vancomycin AdvReac Itching Verified 03/18/17 19:53 Rich wipes AdvReac Severe Rash/Hives Uncoded 03/18/17 19:37 Physical Exam Vitals: Vital Signs Temp Pulse Pulse Resp BP BP Pulse Ox 03/19/17 11:51 97 F L 78 16 107/66 95 03/19/17 11:27 95 03/19/17 11:16 89 03/19/17 08:00 97.4 F L 91 20 141/82 98 03/19/17 04:00 97.2 F L 83 20 133/83 96 03/19/17 00:40 104 H 03/19/17 00:28 100 03/19/17 00:00 97.0 F L 80 18 114/72 94 L 03/18/17 22:38 97.0 F L 80 18 135/86 96 03/18/17 22:12 98 F 84 18 142/70 99 03/18/17 20:41 20 03/18/17 20:39 83 20 131/80 95 03/18/17 20:36 82 03/18/17 20:19 79 03/18/17 19:32 99.2 F 91 22 147/81 96 Intake and Output 03/18/17 03/19/17 03/19/17 22:59 06:59 14:59 Intake Total 200 Balance 200 Intake: Oral 200 Other: Voiding Method Toilet # Voids 1 Weight 104 kg 108.5 kg PHYSICAL EXAMINATION: Patient is lying in the bed comfortably, no acute distress, awake alert and oriented.. HEENT: Normocephalic. Neck is supple. Pupils reactive. Nostrils clear. Oral cavity is moist. Ears reveal no drainage. Neck reveals no JVD, carotid bruits, or thyromegaly. CHEST EXAMINATION: Trachea is central. Symmetrical expansion. Bilateral air entry present. No wheezing no crackles.. CARDIAC: Normal S1, S2 with no gallops. No murmurs ABDOMEN: Soft. Bowel sounds normal. No organomegaly. No abdominal bruits. Extremities: 1+ edema. No clubbing or cyanosis Neurologically awake, alert, oriented x3 with well-coordinated movements. No focal deficits noted Skin: No rash or skin lesions. Psychiatric: Cooperative. Nonsuicidal Musculoskeletal: No joint swelling or deformity. Normal range of motion. Results CBC & Chem 7: 03/18/17 20:26 03/18/17 20:26 Labs: Abnormal Lab Results - Last 24 Hours (Table) 03/18/17 03/18/17 03/18/17 Range/Units 20:26 20:26 20:26 WBC 12.8 H (3.8-10.6) k/uL Hct 46.5 H (34.0-46.0) % Neutrophils # 9.6 H (1.3-7.7) k/uL D-Dimer 0.61 H (<0.60) mg/L FEU Carbon Dioxide 20 L (22-30) mmol/L Glucose 142 H (74-99) mg/dL POC Glucose (mg/dL) (75-99) mg/dL Triglycerides (<150) mg/dL Cholesterol (<200) mg/dL 03/19/17 03/19/17 03/19/17 Range/Units 03:04 05:51 11:45 WBC (3.8-10.6) k/uL Hct (34.0-46.0) % Neutrophils # (1.3-7.7) k/uL D-Dimer (<0.60) mg/L FEU Carbon Dioxide (22-30) mmol/L Glucose (74-99) mg/dL POC Glucose (mg/dL) 207 H 175 H (75-99) mg/dL Triglycerides 346 H (<150) mg/dL Cholesterol 214 H (<200) mg/dL Thrombosis Risk Factor Assmnt - DVT/VTE Prophylaxis DVT/VTE Prophylaxis: Pharmacologic Prophylaxis ordered - Choose All That Apply Each Factor Represents 1 point: Age 41-60 years Each Risk Factor Represents 3 Points: History of DVT/PE Thrombosis Risk Factor Assessment Total Risk Factor Score: 4 Thrombosis Risk Factor Assessment Level: Moderate Risk Assessment and Plan Assessment: #1 Acute shortness of breath with right posterior chest pain. possible subsegmental pulmonary embolism. CTA is suboptimal study. D-dimer 0.61. VQ scan was ordered as per pulmonary recommendations. #2 acute on chronic hypoxic respiratory failure #3 acute COPD exacerbation #4 active nicotine addiction #5 history of DVT/PE. Off anticoagulation for the past 6-7 months #6 sarcoidosis diagnosed with bronchoscopy and biopsy. On prednisone at home #7 secondary polycythemia #8 anxiety and bipolar disorder and fibromyalgia and chronic pain #9 degenerative joint disease #10 history of TX and coronary artery disease #11 morbid obesity with a BMI 38.6 Plan: Patient will be continued on IV steroids and breathing treatments and antibiotics. VQ scan was ordered to make further recommendations regarding anticoagulation. Continue with Lovenox therapeutic dose at this time. Continue with pain medications and follow up closely. Further recommendations as on the clinical course Time with Patient: Greater than 30
[2017-03-19 17:53] LABS: Glucose,Whole Blood 241 mg/dL (75-99)
--- NOTE | 2017-03-19 18:08 | US ---
EXAMINATION TYPE: US venous doppler duplex LE BI DATE OF EXAM: 03/19/2017 5:34 PM COMPARISON: NONE CLINICAL HISTORY: swelling, history of DVT. SIDE PERFORMED: Bilateral TECHNIQUE: The lower extremity deep venous system is examined utilizing real time linear array sonog nisha with graded compression, doppler sonography and color-flow sonography. VESSELS IMAGED: External Iliac Vein (EIV) Common Femoral Vein Deep Femoral Vein Greater Saphenous Vein * Femoral Vein Popliteal Vein Small Saphenous Vein * Proximal Calf Veins (* superficial vessels) FINDINGS: Grayscale, color doppler, spectral doppler imaging performed of the deep veins of the lower extremities. There is normal flow, compressibility, vascular waveforms. No or indirect evidence of DVT visualized bilaterally. IMPRESSION: RIGHT LOWER EXTREMITY: NEGATIVE FOR DVT. LEFT LOWER EXTREMITY: NEGATIVE FOR DVT.
[2017-03-19 20:48] LABS: Glucose,Whole Blood 177 mg/dL (75-99)
[2017-03-19] MEDS ORDERED: POTASSIUM CHLORIDE ER 20 MEQ TAB.ER PO SCH (21:00)
[2017-03-19] MEDS ORDERED: MONTELUKAST 10 MG TAB PO SCH (21:00)
[2017-03-19] MEDS ORDERED: MIRTAZAPINE 15 MG TAB PO SCH (21:00)
[2017-03-19 22:48] VITALS: RESP 18
[2017-03-20] MEDS ORDERED: traMADol 50 MG TAB PO PRN (00:37)
[2017-03-20] MEDS ORDERED: cefTRIAXone IN SWFI 1,000 MG/10 ML SYRINGE IVP SCH (01:00)
[2017-03-20] MEDS ORDERED: HYDROmorphone 1 MG/ML 1 ML SYRINGE IVP PRN (01:24)
[2017-03-20] MEDS ORDERED: AZITHROMYCIN 500 MG in SODIUM CHLORIDE 0.9% 250 ML IVPB SCH ×2 (02:00→09:00)
[2017-03-20 06:00] LABS: Glucose,Whole Blood 229 mg/dL (75-99)
[2017-03-20] MEDS: PROMETHAZINE 25 MG TAB PO SCH (06:12)
[2017-03-20] MEDS: MAG HYDROX/AL HYDROX/SIMETH 30 ML, diphenhydrAMINE ELIXIR 75 MG, LIDOCAINE VISCOUS 30 ML PO SCH ×3 (06:12)
[2017-03-20] MEDS: NITROGLYCERIN OINT 1 INCH/GM PACKET TOPICAL SCH (06:12)
[2017-03-20] MEDS: NYSTATIN 100,000 UNIT/ML SUSP 500,000 UNIT/5 ML CUP PO SCH (06:17)
[2017-03-20] MEDS: INSULIN ASPART 100 UNIT/ML 1 ML 10 ML VIAL SQ SCH (06:17)
[2017-03-20] MEDS: IPRATROPIUM-ALBUTEROL 3 ML NEB INHALATION SCH (07:26)
[2017-03-20] MEDS: BUDESONIDE 0.5 MG/2 ML NEBU INHALATION SCH (07:26)
[2017-03-20] MEDS ORDERED: PANTOPRAZOLE 40 MG TABLET PO SCH (07:30)
[2017-03-20] MEDS: BACLOFEN 10 MG TAB PO SCH (08:01)
[2017-03-20] MEDS: ENOXAPARIN 100 MG/ML SYRINGE SQ SCH (08:01)
[2017-03-20] MEDS: BUMETANIDE 1 MG TAB PO SCH (08:01)
[2017-03-20] MEDS: ASPIRIN 325 MG TAB PO SCH (08:01)
[2017-03-20] MEDS: methylPREDNISolone SOD SUCCI 125 MG/2 ML VIAL IV SCH (08:02)
[2017-03-20] MEDS: FLUoxetine HCL 20 MG CAP PO SCH (08:02)
[2017-03-20] MEDS: METOPROLOL TARTRATE 50 MG TAB PO SCH (08:03)
[2017-03-20] MEDS: lamoTRIgine 100 MG TAB PO SCH (08:03)
[2017-03-20] MEDS: PREGABALIN 100 MG CAP PO SCH (08:08)
[2017-03-20] MEDS: MORPHINE SULFATE IR 15 MG TABLET PO SCH (08:08)
[2017-03-20] MEDS: ALPRAZolam 0.5 MG TAB PO PRN ×2 (08:23→08:27)
[2017-03-20 08:55] VITALS: BP 121/81; PULSE 84; TEMP 98.1
--- NOTE | 2017-03-20 14:24 | ECHOF ---
Referral Reason:cp and sob MEASUREMENTS -------- HEIGHT: 167.6 cm WEIGHT: 108.4 kg BP: 133/83 IVSd: 1.0 cm (0.6 - 1.1) LVIDd: 3.5 cm (3.9 - 5.3) LVPWd: 1.3 cm (0.6 - 1.1) IVSs: 1.7 cm LVIDs: 2.0 cm LVPWs: 1.8 cm Ao Diam: 3.2 cm (2.0 - 3.7) AV Cusp: 2.0 cm (1.5 - 2.6) LA Diam: 3.3 cm (2.7 - 3.8) MV EXCURSION: 11.453 mm (> 18.000) MV EF SLOPE: 86 mm/s (70 - 150) EPSS: 0.5 cm MV E Aris: 1.18 m/s MV DecT: 136 ms MV A Aris: 1.11 m/s MV E/A Ratio: 1.07 RAP: 5.00 mmHg RVSP: 35.04 mmHg FINDINGS -------- Sinus rhythm. This was a technically good study. The left ventricular size is normal. There is mild concentric left ventricular hypertrophy. Overa ll left ventricular systolic function is normal with, an EF between 55 - 60 %. The right ventricle is normal in size and function. The left atrium is normal in size. The right atrium is normal in size. The aortic valve is trileaflet, and appears structurally normal. No aortic stenosis or regurgitation. There is trace mitral regurgitation. Trace tricuspid regurgitation present. The right ventricular systolic pressure, as measured by Dopp ler, is 35.04mmHg. Pulmonic valve appears structurally normal. The aortic root size is normal. The pericardium is normal. CONCLUSIONS -------- 1. Sinus rhythm. 2. This was a technically good study. 3. The left ventricular size is normal. 4. There is mild concentric left ventricular hypertrophy. 5. Overall left ventricular systolic function is normal with, an EF between 55 - 60 %. 6. The right ventricle is normal in size and function. 7. The left atrium is normal in size. 8. The right atrium is normal in size. 9. The aortic valve is trileaflet, and appears structurally normal. No aortic stenosis or regurgitati on. 10. There is trace mitral regurgitation. 11. Trace tricuspid regurgitation present. 12. The right ventricular systolic pressure, as measured by Doppler, is 35.04mmHg. 13. Pulmonic valve appears structurally normal. 14. The aortic root size is normal. 15. The pericardium is normal. WELDING MACHINE TENDER: Anabelle Alvarado RDCS
--- NOTE | 2017-03-20 14:30 | P.DS ---
Providers Date of admission: 03/18/17 21:32 Expected date of discharge: 03/20/17 Attending physician: Gonsalo Truong Consults: 03/18/17 21:32 Consult Physician Routine Consulting Provider: Ashley Noyola Consult Reason/Comments: sob and cp Do you want consulting provider notified?: Yes 03/19/17 05:07 Consult Physician Routine Consulting Provider: Dg Osman Consult Reason/Comments: rule out PE Do you want consulting provider notified?: Yes, Notify in am Primary care physician: [facility] Course: The patient left AMA. Staff reports patient upset about having to change rooms and give up private room. Patient Condition at Discharge: Stable Plan - Discharge Summary Discharge Rx Participant: No New Discharge Prescriptions: No Action Cetirizine HCl [Zyrtec] 10 mg PO DAILY PRN PRN Reason: Allergy Symptoms Ergocalciferol [Vitamin D2 (DRISDOL)] 50,000 units PO TH Albuterol Inhaler [Ventolin Hfa Inhaler] 2 puff INHALATION RT-Q6H PRN #1 puff PRN Reason: Shortness Of Breath FLUoxetine HCL [PROzac] 20 mg PO DAILY #30 capsule Metoprolol Tartrate [Lopressor] 50 mg PO BID #60 tab Mirtazapine [Remeron] 30 mg PO HS #30 tablet Montelukast [Singulair] 10 mg PO HS #30 tab lamoTRIgine [LaMICtal] 200 mg PO DAILY ALPRAZolam [Xanax] 0.5 mg PO QID PRN #20 tab PRN Reason: Anxiety HYDROcodone/APAP 10-325MG [[place] 10-325] 1 tab PO Q6H PRN #15 tab PRN Reason: Pain Pregabalin [Lyrica] 100 mg PO BID Ondansetron HCl [Zofran] 4 mg PO DAILY PRN PRN Reason: Nausea Bumetanide 2 mg PO BID Potassium Chloride ER [K-Dur 10] 20 meq PO HS Butalb/APAP/Caff 50-325-40Mg [Fioricet 50-325-40] 1 tab PO Q6H PRN PRN Reason: Migraine Headache Baclofen [Lioresal] 20 mg PO TID Promethazine [Phenergan] 12.5 mg PO Q6HR Levofloxacin [Levaquin] 750 mg PO DAILY Beclomethasone Dipropionate [Qvar 40 mcg] 2 puff INHALATION RT-BID Morphine Sulfate 15 mg PO TID Discharge Medication List Cetirizine HCl [Zyrtec] 10 mg PO DAILY PRN 07/16/14 [History] Ergocalciferol [Vitamin D2 (DRISDOL)] 50,000 units PO TH 07/16/14 [History] Albuterol Inhaler [Ventolin Hfa Inhaler] 2 puff INHALATION RT-Q6H PRN #1 puff [Rx] FLUoxetine HCL [PROzac] 20 mg PO DAILY #30 capsule 08/20/15 [Rx] Metoprolol Tartrate [Lopressor] 50 mg PO BID #60 tab 08/20/15 [Rx] Mirtazapine [Remeron] 30 mg PO HS #30 tablet 08/20/15 [Rx] Montelukast [Singulair] 10 mg PO HS #30 tab 08/20/15 [Rx] lamoTRIgine [LaMICtal] 200 mg PO DAILY 03/22/16 [History] ALPRAZolam [Xanax] 0.5 mg PO QID PRN #20 tab 04/17/16 [Rx] HYDROcodone/APAP 10-325MG [[place] 10-325] 1 tab PO Q6H PRN #15 tab 10/02/16 [Rx] Baclofen [Lioresal] 20 mg PO TID 10/18/16 [History] Bumetanide 2 mg PO BID 10/18/16 [History] Butalb/APAP/Caff 50-325-40Mg [Fioricet 50-325-40] 1 tab PO Q6H PRN 10/18/16 [ History] Ondansetron HCl [Zofran] 4 mg PO DAILY PRN 10/18/16 [History] Potassium Chloride ER [K-Dur 10] 20 meq PO HS 10/18/16 [History] Pregabalin [Lyrica] 100 mg PO BID 10/18/16 [History] Beclomethasone Dipropionate [Qvar 40 mcg] 2 puff INHALATION RT-BID 03/17/17 [ History] Levofloxacin [Levaquin] 750 mg PO DAILY 03/17/17 [History] Promethazine [Phenergan] 12.5 mg PO Q6HR 03/17/17 [History] Morphine Sulfate 15 mg PO TID 03/18/17 [History] Follow up Appointment(s)/Referral(s): Liz Koch MD [Primary Care Provider] - 3 Days Discharge Disposition: Left Against Medical Advice
[2017-03-22] MEDS ORDERED: ERGOCALCIFEROL 50,000 UNIT CAP PO SCH (09:00)
== END 2017-03-20 08:57 | disposition left against medical advice (07) ==
LOC: EC 19:30 → INTOOBSV 21:32 → 6SEL 21:32
PROVIDERS: ADMIT Hospitalist; ATTEND Hospitalist
DX: J96.21 Acute and chronic respiratory failure with hypoxia (principal); J44.1 Chronic obstructive pulmonary disease with (acute) exacerbation; Z53.21 Procedure and treatment not carried out due to patient leaving prior to being seen by health care provider; D86.9 Sarcoidosis, unspecified; D75.1 Secondary polycythemia; F17.200 Nicotine dependence, unspecified, uncomplicated; R79.89 Other specified abnormal findings of blood chemistry; F41.0 Panic disorder [episodic paroxysmal anxiety]; F31.9 Bipolar disorder, unspecified; I50.9 Heart failure, unspecified; I11.0 Hypertensive heart disease with heart failure; E78.5 Hyperlipidemia, unspecified; Z86.718 Personal history of other venous thrombosis and embolism; M79.7 Fibromyalgia; D72.829 Elevated white blood cell count, unspecified; R50.9 Fever, unspecified; E78.1 Pure hyperglyceridemia; Z86.711 Personal history of pulmonary embolism; Z86.14 Personal history of Methicillin resistant Staphylococcus aureus infection; I25.10 Atherosclerotic heart disease of native coronary artery without angina pectoris; Z87.01 Personal history of pneumonia (recurrent); E66.01 Morbid (severe) obesity due to excess calories; Z68.38 Body mass index [BMI] 38.0-38.9, adult; G89.29 Other chronic pain; I25.2 Old myocardial infarction; Z79.52 Long term (current) use of systemic steroids; Z88.6 Allergy status to analgesic agent; Z88.1 Allergy status to other antibiotic agents; Z91.041 Radiographic dye allergy status; Z88.5 Allergy status to narcotic agent; Z88.8 Allergy status to other drugs, medicaments and biological substances; Z91.048 Other nonmedicinal substance allergy status; Z79.899 Other long term (current) drug therapy; Z79.51 Long term (current) use of inhaled steroids; Z83.3 Family history of diabetes mellitus
CPT/HCPCS: 96375 ×4; 96372 ×4; 99285; 96376 ×2; 96365; 96366; 36415; 94640 ×4; 93005; 93306; 85379; 83880; 80061; 80053; 82550 ×2; 82553 ×2; 84484 ×2; 85025; 85610; 85730; 87040; 71020; 93970; 71275; 78582; G0378 ×4; A9540; A9567; J2060; J1200; J2930 ×3; Q9967; J0456; J1650 ×3; J0696 ×2; J1170 ×2

== ENCOUNTER 2017-04-10 15:02 | Inpatient (IN) | payer OTHER ==
[2017-04-10] MEDS ORDERED: RX INFO: IV CONTRAST WAS GIVEN 1 EACH MISC MISCELLANE PRN (16:01)
[2017-04-10] MEDS ORDERED: SODIUM CHLORIDE 0.9% 1,000 ML IV STA (16:01)
[2017-04-10] MEDS ORDERED: ACETAMINOPHEN IV (For NPO) 1,000 MG in EMPTY BAG 1 BAG IVPB STA (16:02)
--- NOTE | 2017-04-10 16:06 | ED ---
General Adult HPI - General Chief complaint: Shortness of Breath Stated complaint: SOB/dizziness/hand numbness-sent by Time Seen by Provider: 04/10/17 15:44 Source: patient, RN notes reviewed, old records reviewed Mode of arrival: wheelchair Limitations: no limitations - History of Present Illness Initial comments: This is a 46-year-old female arms is emergency department for shortness of breath. Patient's medical condition significant for sarcoidosis, blood clots, DVT. No patient denies any fevers, she does complain of exertional dyspnea and right-sided lung pain. Patient has no recent travel history no sick contacts, patient states her breathing and significant is consistently worsening. - Related Data Home Medications Medication Instructions Recorded Confirmed Cetirizine HCl [Zyrtec] 10 mg PO DAILY PRN 07/16/14 04/10/17 Ergocalciferol [Vitamin D2 50,000 units PO TH 07/16/14 04/10/17 (DRISDOL)] lamoTRIgine [LaMICtal] 200 mg PO DAILY 03/22/16 04/10/17 Baclofen [Lioresal] 20 mg PO TID PRN 10/18/16 04/10/17 Bumetanide 2 mg PO BID 10/18/16 04/10/17 Butalb/APAP/Caff 50-325-40Mg 1 tab PO Q4H PRN 10/18/16 04/10/17 [Fioricet 50-325-40] Ondansetron HCl [Zofran] 4 mg PO DAILY PRN 10/18/16 04/10/17 Pregabalin [Lyrica] 100 mg PO BID 10/18/16 04/10/17 ALPRAZolam [Xanax] 0.25 mg PO BID 04/10/17 04/10/17 Acetaminophen-Codeine 300-30mg 1 tab PO Q4H PRN 04/10/17 04/10/17 [Tylenol #3] Beclomethasone Dipropionate [Qvar 2 puff INHALATION RT-BID 04/10/17 04/10/17 80 mcg] Enoxaparin [Lovenox] 40 mg SQ BID 04/10/17 04/10/17 Ipratropium-Albuterol Nebulize 3 ml INHALATION RT-QID PRN 04/10/17 04/10/17 [Duoneb 0.5 mg-3 mg/3 ml Soln] Mirtazapine [Remeron] 45 mg PO HS 04/10/17 04/10/17 Potassium Chloride [Klor-Con 20 meq PO DAILY 04/10/17 04/10/17 Sprinkle] Warfarin [Coumadin] 2 mg PO HS 04/10/17 04/10/17 Warfarin [Coumadin] 5 mg PO HS 04/10/17 04/10/17 busPIRone HCl [Buspar] 10 mg PO BID 04/10/17 04/10/17 Previous Rx's Medication Instructions Recorded Albuterol Inhaler [Ventolin Hfa 2 puff INHALATION RT-Q6H PRN #1 08/20/15 Inhaler] puff FLUoxetine HCL [PROzac] 20 mg PO DAILY #30 capsule 08/20/15 Metoprolol Tartrate [Lopressor] 50 mg PO BID #60 tab 08/20/15 Montelukast [Singulair] 10 mg PO HS #30 tab 08/20/15 Allergies Allergy/AdvReac Type Severity Reaction Status Date / Time ketorolac tromethamine Allergy Severe Anaphylaxis Verified 04/10/17 15:50 [From Toradol] Opioids - Morphine Analogues Allergy Mild Itching Verified 04/10/17 15:50 Iodinated Contrast- Oral and Allergy Unknown Verified 04/10/17 15:50 IV Dye rivaroxaban [From Xarelto] Allergy Rash/Hives Verified 04/10/17 15:50 sumatriptan [From Imitrex] Allergy Anaphylaxis Verified 04/10/17 15:50 sumatriptan succinate Allergy Anaphylaxis Verified 04/10/17 15:50 [From Imitrex] morphine AdvReac Severe Itching Verified 04/10/17 15:50 iodine AdvReac Intermediate Itching Verified 04/10/17 15:50 tramadol AdvReac Anaphylaxis Verified 04/10/17 15:50 vancomycin AdvReac Itching Verified 04/10/17 15:50 Rich wipes AdvReac Severe Rash/Hives Uncoded 03/18/17 19:37 Review of Systems ROS Statement: Those systems with pertinent positive or pertinent negative responses have been documented in the HPI. ROS Other: All systems not noted in ROS Statement are negative. Past Medical History Past Medical History: Blood Disorder, Heart Failure, COPD, Deep Vein Thrombosis (DVT), Hyperlipidemia, Hypertension, Myocardial Infarction (SD), Musculoskeletal Disorder, Pneumonia, Pulmonary Embolus (PE) Additional Past Medical History / Comment(s): PE 2012; Sarcoidosis diagnosed in 2015 following a bronchoscopy and lung biopsy done at [facility] and she was started on predniosone and she took the therapy for almost 1 year, polycythemia, overweight, bilateral PE (2011, 2015), bilateral DVTs, fibromyalgia, bipolar disorder, degenerative disk disorder, coronary artery disease along with previous history of a SD and ventilator dependent respiratory failure with MRSA pneumonia for which the patient was hospitalized [facility] in 2012. Viral meningitis in October 2014. Last Myocardial Infarction Date:: February 15, 2013 History of Any Multi-Drug Resistant Organisms: MRSA Date of last positivie culture/infection: 2013 MDRO Source:: Lungs Past Surgical History: Section, Cholecystectomy, Heart Catheterization , Hernia Repair, Orthopedic Surgery Additional Past Surgical History / Comment(s): Lt ankle surgery,BRONCH Past Anesthesia/Blood Transfusion Reactions: Motion Sickness, Postoperative Nausea & Vomiting (PONV) Additional Past Anesthesia/Blood Transfusion Reaction / Comment(s): pt stated that last April she coded due to anesthetic Past Psychological History: Anxiety, Bipolar, Depression, Panic Disorder Smoking Status: Current every day smoker Past Alcohol Use History: None Reported Past Drug Use History: None Reported - Past Family History Father Family Medical History: Blood Disorder, Congestive Heart Failure (CHF), CVA/TIA , Deep Vein Thrombosis (DVT), Myocardial Infarction (SD) Additional Family Medical History / Comment(s): polycythemia Mother Family Medical History: Congestive Heart Failure (CHF), Diabetes Mellitus, Deep Vein Thrombosis (DVT), Myocardial Infarction (SD), Musculoskeletal Disorder Sister(s) Family Medical History: No Reported History Brother(s) Family Medical History: No Reported History Son(s) Family Medical History: No Reported History Daughter(s) Family Medical History: No Reported History General Exam Limitations: no limitations General appearance: alert, in no apparent distress, anxious Head exam: Present: atraumatic, normocephalic, normal inspection Eye exam: Present: normal appearance, PERRL, EOMI. Absent: scleral icterus, conjunctival injection, periorbital swelling ENT exam: Present: normal exam, mucous membranes moist Neck exam: Present: normal inspection. Absent: tenderness, meningismus, lymphadenopathy Respiratory exam: Present: normal lung sounds bilaterally, decreased breath sounds, prolonged expiratory. Absent: respiratory distress, wheezes, rales, rhonchi, stridor Cardiovascular Exam: Present: regular rate, normal rhythm, normal heart sounds. Absent: systolic murmur, diastolic murmur, rubs, gallop, clicks GI/Abdominal exam: Present: soft, normal bowel sounds. Absent: distended, tenderness, guarding, rebound, rigid Extremities exam: Present: normal inspection, full ROM, normal capillary refill. Absent: tenderness, pedal edema, joint swelling, calf tenderness Back exam: Present: normal inspection Neurological exam: Present: alert, oriented X3, CN II-XII intact Psychiatric exam: Present: normal affect, normal mood Skin exam: Present: warm, dry, intact, normal color. Absent: rash Course Vital Signs 04/10/17 04/10/17 15:13 17:52 Temperature 99.4 F Pulse Rate 99 99 Respiratory 22 20 Rate Blood Pressure 135/92 O2 Sat by Pulse 90 L Oximetry - Reevaluation(s) Reevaluation #1: 04/10/17 18:37 Patient's medical records are reviewed EKG Findings - EKG Comments: EKG Findings:: EKG shows normal sinus rhythm rate of 93, OH 136, QRS 64, QTc 427 Medical Decision Making - Medical Decision Making 46 female to the ER for evaluation. Patient lives today for evaluation regarding chest pain, shortness of breath, patient is in a by family doctor for management. Patient be admitted for pulmonology, management of chest pain in breathing/hypoxia - Lab Data Result diagrams: 04/10/17 16:35 04/10/17 16:35 Lab Results 04/10/17 04/10/17 04/10/17 Range/Units 16:35 16:35 16:35 WBC 11.9 H (3.8-10.6) k/uL RBC 4.44 (3.80-5.40) m/uL Hgb 14.0 (11.4-16.0) gm/dL Hct 41.8 (34.0-46.0) % MCV 94.2 (80.0-100.0) fL MCH 31.4 (25.0-35.0) pg MCHC 33.4 (31.0-37.0) g/dL RDW 14.9 (11.5-15.5) % Plt Count 206 (150-450) k/uL Neutrophils % 86 % Lymphocytes % 8 % Monocytes % 4 % Eosinophils % 0 % Basophils % 0 % Neutrophils # 10.3 H (1.3-7.7) k/uL Lymphocytes # 1.0 (1.0-4.8) k/uL Monocytes # 0.5 (0-1.0) k/uL Eosinophils # 0.0 (0-0.7) k/uL Basophils # 0.0 (0-0.2) k/uL PT (9.0-12.0) sec INR (<1.2) APTT (22.0-30.0) sec Sodium 137 (137-145) mmol/L Potassium 4.6 (3.5-5.1) mmol/L Chloride 107 (98-107) mmol/L Carbon Dioxide 22 (22-30) mmol/L Anion Gap 8 mmol/L BUN 9 (7-17) mg/dL Creatinine 0.51 L (0.52-1.04) mg/dL Est GFR (MDRD) Af Amer >60 (>60 ml/min/1.73 sqM) Est GFR (MDRD) Non-Af >60 (>60 ml/min/1.73 sqM) Glucose 143 H (74-99) mg/dL Calcium 9.1 (8.4-10.2) mg/dL Phosphorus 2.4 L (2.5-4.5) mg/dL Magnesium 1.9 (1.6-2.3) mg/dL Total Bilirubin 0.7 (0.2-1.3) mg/dL AST 42 H (14-36) U/L ALT 33 (9-52) U/L Alkaline Phosphatase 60 (38-126) U/L Total Creatine Kinase 70 (30-135) U/L CK-MB (CK-2) 0.8 (0.0-2.4) ng/mL CK-MB (CK-2) Rel Index 1.1 Troponin I <0.012 (0.000-0.034) ng/mL Total Protein 6.8 (6.3-8.2) g/dL Albumin 3.7 (3.5-5.0) g/dL Urine Color Urine Appearance (Clear) Urine pH (5.0-8.0) Ur Specific [place] (1.001-1.035) Urine Protein (Negative) Urine Glucose (UA) (Negative) Urine Ketones (Negative) Urine Blood (Negative) Urine Nitrite (Negative) Urine Bilirubin (Negative) Urine Urobilinogen (<2.0) mg/dL Ur Leukocyte Esterase (Negative) Urine RBC (0-5) /hpf Urine WBC (0-5) /hpf Ur Squamous Epith Cells (0-4) /hpf Hyaline Casts (0-2) /lpf Urine Mucus (None) /hpf 04/10/17 04/10/17 Range/Units 16:35 16:35 WBC (3.8-10.6) k/uL RBC (3.80-5.40) m/uL Hgb (11.4-16.0) gm/dL Hct (34.0-46.0) % MCV (80.0-100.0) fL MCH (25.0-35.0) pg MCHC (31.0-37.0) g/dL RDW (11.5-15.5) % Plt Count (150-450) k/uL Neutrophils % % Lymphocytes % % Monocytes % % Eosinophils % % Basophils % % Neutrophils # (1.3-7.7) k/uL Lymphocytes # (1.0-4.8) k/uL Monocytes # (0-1.0) k/uL Eosinophils # (0-0.7) k/uL Basophils # (0-0.2) k/uL PT 11.0 (9.0-12.0) sec INR 1.1 (<1.2) APTT 20.6 L (22.0-30.0) sec Sodium (137-145) mmol/L Potassium (3.5-5.1) mmol/L Chloride (98-107) mmol/L Carbon Dioxide (22-30) mmol/L Anion Gap mmol/L BUN (7-17) mg/dL Creatinine (0.52-1.04) mg/dL Est GFR (MDRD) Af Amer (>60 ml/min/1.73 sqM) Est GFR (MDRD) Non-Af (>60 ml/min/1.73 sqM) Glucose (74-99) mg/dL Calcium (8.4-10.2) mg/dL Phosphorus (2.5-4.5) mg/dL Magnesium (1.6-2.3) mg/dL Total Bilirubin (0.2-1.3) mg/dL AST (14-36) U/L ALT (9-52) U/L Alkaline Phosphatase (38-126) U/L Total Creatine Kinase (30-135) U/L CK-MB (CK-2) (0.0-2.4) ng/mL CK-MB (CK-2) Rel Index Troponin I (0.000-0.034) ng/mL Total Protein (6.3-8.2) g/dL Albumin (3.5-5.0) g/dL Urine Color Yellow Urine Appearance Cloudy H (Clear) Urine pH 6.5 (5.0-8.0) Ur Specific [place] 1.030 (1.001-1.035) Urine Protein Trace H (Negative) Urine Glucose (UA) 1+ H (Negative) Urine Ketones Negative (Negative) Urine Blood Negative (Negative) Urine Nitrite Negative (Negative) Urine Bilirubin Negative (Negative) Urine Urobilinogen <2.0 (<2.0) mg/dL Ur Leukocyte Esterase Negative (Negative) Urine RBC 1 (0-5) /hpf Urine WBC 2 (0-5) /hpf Ur Squamous Epith Cells 10 H (0-4) /hpf Hyaline Casts 1 (0-2) /lpf Urine Mucus Rare H (None) /hpf - Radiology Data Radiology results: report reviewed (CTA chest is negative for acute disease ultrasound lower extremity is negative for DVT), image reviewed Disposition Clinical Impression: Acute exacerbation of chronic bronchitis, COPD (chronic obstructive pulmonary disease), Acute chest wall pain, Chest pain, pleuritic, History of deep venous thrombosis or pulmonary embolus, Hypoxia Disposition: ADMITTED IP TO THIS HOSP Condition: Fair Referrals: Liz Koch MD [Primary Care Provider] - 1-2 days
[2017-04-10] MEDS ORDERED: diphenhydrAMINE 50 MG/ML 1 ML VIAL IVP STA (16:08)
[2017-04-10] MEDS ORDERED: methylPREDNISolone SOD SUCCI 125 MG/2 ML VIAL IV STA (16:09)
[2017-04-10] MEDS ORDERED: FAMOTIDINE 20 MG/2 ML VIAL IV STA (16:09)
[2017-04-10] MEDS: HYDROmorphone 1 MG/ML 1 ML SYRINGE IVP STA ×2 (16:24→18:14)
[2017-04-10 17:03] LABS: ALT 33 U/L (9-52); AST 42 U/L (14-36); Albumin 3.7 g/dL (3.5-5.0); Alkaline Phosphatase 60 U/L (38-126); Anion Gap 8 mmol/L; Blood Urea Nitrogen 9 mg/dL (7-17); Calcium 9.1 mg/dL (8.4-10.2); Carbon Dioxide 22 mmol/L (22-30); Chloride 107 mmol/L (98-107); Glucose 143 mg/dL (74-99); Magnesium 1.9 mg/dL (1.6-2.3); Phosphorus 2.4 mg/dL (2.5-4.5); Potassium 4.6 mmol/L (3.5-5.1); Sodium 137 mmol/L (137-145); Total Bilirubin 0.7 mg/dL (0.2-1.3); Total Protein 6.8 g/dL (6.3-8.2)
[2017-04-10 17:04] LABS: Appearance,Urine Cloudy (Clear); Bilirubin,Urine Negative (Negative); Blood,Urine Negative (Negative); Color,Urine Yellow; Glucose,Urine (UA) 1+ (Negative); Hyaline Casts,Urine 1 /lpf (0-2); Ketones,Urine Negative (Negative); Leukocyte Esterase,Urine Negative (Negative); Mucus,Urine Rare /hpf; Nitrite,Urine Negative (Negative); PH, Urine 6.5 (5.0-8.0); Protein,Urine Trace (Negative); RBC,Urine 1 /hpf (0-5); Squamous Epithelial Cell,Urine 10 /hpf (0-4); Urobilinogen,Urine <2.0 mg/dL (<2.0); WBC,Urine 2 /hpf (0-5)
[2017-04-10 17:09] LABS: INR 1.1 (<1.2)
[2017-04-10 17:11] LABS: Basophils % (A) 0 %; Eosinophils % (A) 0 %; HCT 41.8 % (34.0-46.0); Lymphocytes % (A) 8 %; MCH 31.4 pg (25.0-35.0); MCHC 33.4 g/dL (31.0-37.0); MCV 94.2 fL (80.0-100.0); Monocytes # (A) 0.5 k/uL (0-1.0); Monocytes % (A) 4 %; Neutrophils # (A) 10.3 k/uL (1.3-7.7); Neutrophils % (A) 86 %; Platelet Count 206 k/uL (150-450); RBC 4.44 m/uL (3.80-5.40); RDW 14.9 % (11.5-15.5); WBC 11.9 k/uL (3.8-10.6)
[2017-04-10 17:19] LABS: Creatine Kinase 70 U/L (30-135)
--- NOTE | 2017-04-10 17:25 | CT ---
CT CHEST FOR PULMONARY EMBOLISM. EXAMINATION TYPE: CT angio chest DATE OF EXAM: 04/10/2017 INDICATION: Shortness of breath. CT DLP: 574.00 mGycm, Automated exposure control for dose reduction was used. CONTRAST: Patient injected with 76 mL of Omnipaque 350. COMPARISON: 10/18/2016 TECHNIQUE: CT of the chest is performed on a spiral scan at 2 mm thick sections. Study is performed with intravenous contrast timed for evaluation for pulmonary embolism. This will limit additional po rtions of the evaluation. 3-D MIP images reconstructed by the technologist are reviewed on the compu ter in the coronal and sagittal planes. FINDINGS: No persistent filling defects are evident to suggest an acute pulmonary embolism. No mediastinal or hilar adenopathy enlarged by CT criteria is evident. The ascending aorta diameter at the level of the main pulmonary artery is 3.4 cm. The main pulmonary artery diameter at the bifur cation is 3.3 cm. Pneumonitis type changes are within the right lower lobe right middle lobe and bilateral upper lobe a reas. Findings can be compatible with pulmonary fibrosis in the proper clinical setting. Other etiolo gies could include lymphangitic metastasis and atypical pulmonary edema. Clinical correlation is sancho mmended. Limited CT section through the upper abdomen are unremarkable. IMPRESSIONS: 1. No acute pulmonary embolism. 2. Scattered areas of pneumonitis suggestive for pulmonary fibrosis. This is a change from September 2016. Differential diagnosis is discussed above.
[2017-04-10 17:26] LABS: Partial Thromboplastin Time 20.6 sec (22.0-30.0)
[2017-04-10 17:31] LABS: Creatine Kinase MB 0.8 ng/mL (0.0-2.4); Troponin I <0.012 ng/mL (0.000-0.034)
[2017-04-10] MEDS ORDERED: IPRATROPIUM-ALBUTEROL 3 ML NEB INHALATION STA (17:40)
--- NOTE | 2017-04-10 17:41 | US ---
EXAMINATION TYPE: US venous doppler duplex LE DATE OF EXAM: 04/10/2017 5:24 PM COMPARISON: US 2017 CLINICAL HISTORY: Pain. EC patient with left calf swelling > right calf swelling x 3 weeks; patient s tated had prior right leg DVT 4 years ago and has been on Coumadin since; IVC filter inserted 2 years ago. SIDE PERFORMED: Bilateral TECHNIQUE: The lower extremity deep venous system is examined utilizing real time linear array sonog nisha with graded compression, doppler sonography and color-flow sonography. VESSELS IMAGED: Common Femoral Vein Deep Femoral Vein Greater Saphenous Vein * Femoral Vein Popliteal Vein Small Saphenous Vein * Proximal Calf Veins (* superficial vessels) FINDINGS: Grayscale, color doppler, spectral doppler imaging performed of the deep veins of the lower extremities. There is normal flow, compressibility, vascular waveforms. IMPRESSION: 1. RIGHT LOWER EXTREMITY: NEGATIVE FOR DVT 2. LEFT LOWER EXTREMITY: NEGATIVE FOR DVT
[2017-04-10] MEDS ORDERED: HYDROmorphone 2 MG/ML 1 ML SYRINGE IVP STA (18:10)
[2017-04-10] MEDS ORDERED: HYDROmorphone 4 MG/ML 1 ML SYRINGE IVP STA (18:10)
[2017-04-10] MEDS ORDERED: HYDROmorphone 1 MG/ML 1 ML SYRINGE IVP STA (18:15)
--- NOTE | 2017-04-10 18:26 | XR ---
EXAMINATION: XR chest 2V DATE AND TIME: 04/10/2017 5:50 PM ORDERING PROVIDER: Gilberto Centeno DO CLINICAL INDICATION: Weakness . History of COPD, sarcoidosis TECHNIQUE: PA and lateral COMPARISON: 03/18/2017 DESCRIPTION: There is moderate silhouetting of the pulmonary vasculature by a fine reticular pattern of increased density throughout the lungs, with septal lines evident. There is, in addition, partial confluence of density in the right lower lung zone. These findings are features of interstitial phase pulmonary edema with alveolar phase pulmonary edema in the right lower lung zone. The cardiomediastinal silhouette is normal. The pleural spaces are negative. The skeletal structures are negative. The soft tissues are unremarkable. IMPRESSION: RADIOGRAPHIC FINDINGS OF NONCARDIOGENIC PULMONARY EDEMA.
[2017-04-10] MEDS ORDERED: SODIUM CHLORIDE 0.9% 1,000 ML IV SCH (18:45)
[2017-04-10] MEDS: IPRATROPIUM-ALBUTEROL 3 ML NEB INHALATION SCH (20:38)
[2017-04-10] MEDS: HYDROmorphone 2 MG/ML 1 ML SYRINGE IVP PRN (22:06)
[2017-04-10] MEDS ORDERED: ALBUTEROL INHALER 60 PUFF/8 GM INHALER INHALATION PRN (22:29)
[2017-04-10] MEDS ORDERED: BACLOFEN 10 MG TAB PO PRN (22:29)
[2017-04-10] MEDS ORDERED: LORATADINE 10 MG TAB PO PRN (22:29)
[2017-04-10] MEDS ORDERED: ONDANSETRON 4 MG TAB PO PRN (22:29)
[2017-04-10] MEDS: METOPROLOL TARTRATE 50 MG TAB PO SCH (23:46)
[2017-04-10] MEDS: MIRTAZAPINE 45 MG TABLET PO SCH (23:46)
[2017-04-10] MEDS: MONTELUKAST 10 MG TAB PO SCH (23:46)
[2017-04-10] MEDS: BUMETANIDE 1 MG TAB PO SCH (23:46)
[2017-04-10] MEDS: PREGABALIN 100 MG CAP PO SCH (23:47)
[2017-04-10] MEDS: ENOXAPARIN 40 MG/0.4 ML SYRINGE SQ SCH (23:47)
[2017-04-10] MEDS: WARFARIN 5 MG TAB PO SCH (23:47)
[2017-04-10] MEDS: ALPRAZolam 0.5 MG TAB PO SCH (23:47)
[2017-04-10] MEDS: WARFARIN 2 MG TAB PO SCH (23:47)
[2017-04-10] MEDS: IPRATROPIUM-ALBUTEROL 3 ML NEB INHALATION PRN (23:50)
[2017-04-11] MEDS: methylPREDNISolone SOD SUCCI 125 MG/2 ML VIAL IV SCH ×5 (00:06→23:36)
[2017-04-11] MEDS: guaiFENesin-DM 100-10MG/5ML 10 ML CUP PO PRN ×3 (00:33→23:34)
[2017-04-11] MEDS: LORazepam 2 MG/ML INJ IV PRN ×3 (00:34→13:43)
[2017-04-11] MEDS: HYDROmorphone 2 MG/ML 1 ML SYRINGE IVP PRN ×5 (01:54→20:14)
[2017-04-11 04:54] LABS: Glucose,Whole Blood 164 mg/dL (75-99)
[2017-04-11] MEDS: IPRATROPIUM-ALBUTEROL 3 ML NEB INHALATION PRN (05:10)
--- NOTE | 2017-04-11 06:21 | HP ---
HISTORY AND PHYSICAL CHIEF COMPLAINT: A 46-year-old white female with shortness of breath. HISTORY OF PRESENT ILLNESS: This is a 46-year-old white female with shortness of breath. She has a history of sarcoidosis, pulmonary fibrosis, blood clots, DVT, continued to have worsening exertional dyspnea, right-sided lung pain. CAT scan of the chest was reviewed that showed pneumonitis. No PE. HOME MEDICATIONS: 1. Zyrtec. 2. Vitamin B12. 3. Lamictal. 4. Lioresal. 5. Fioricet. 6. Zofran. 7. Lyrica. 8. Xanax. 9. Tylenol No.3. 10.Qvar. 11.Lovenox. 12.Remeron. 13.Klor-Con. 14.Coumadin. 15.BuSpar. ALLERGIES: KETOROLAC, OPIOIDS, MORPHINE, IODINE, XARELTO, IMITREX, IODINE, TRAMADOL, VANCOMYCIN. REVIEW OF SYSTEMS: Fourteen-point review of systems negative except for as mentioned in the HPI. PAST MEDICAL HISTORY: Blood disorder, heart failure, COPD, DVTs, dyslipidemia, hypertension, myocardial infarction, musculoskeletal disorder, pneumonia, PE, sarcoidosis 2016, polycythemia, overweight, bilateral PE, bilateral DVTs, fibromyalgia, bipolar, degenerative disc disease, coronary artery disease, ventilation with MRSA pneumonia. SURGERIES: C-sections, cholecystectomy, heart catheterization, hernia repair, orthopedic surgery. Motion sickness, post nausea and vomiting. Current everyday smoker. FAMILY HISTORY: Brother negative. Son negative. Daughter negative. PHYSICAL EXAM: She appears anxious, nervous, restless, moving around in the bed as best she can with rapid speech. CARDIOVASCULAR: S1, S2. LUNGS: Scattered wheeze and rhonchi. HEMATOLOGY: Negative Homans. PSYCH: Fair mood and increased affect and very rapid speech. ENT: Normal. Abdomen is distended due to obesity. VASCULAR: Normal dorsalis pedis, posterior tibial, radial pulse. NEURO: Cranial nerves are intact. Blood pressure 135/92, O2 of 90%, temp 99, pulse is low 90s, respiration 20 to 22. LABS: Labs are reviewed. ASSESSMENT: 1. Acute respiratory distress secondary to pulmonary fibrosis versus sarcoidosis. 2. Acute bronchitis. 3. Chronic obstructive pulmonary disease exacerbation. 4. Pleuritic chest pain. 5. Rule out flu, influenza. Ativan will be given for anxiety. IV Solu-Medrol. Pulmonary consult. Updraft treatments. MMODL / IJN: [id number] /
[2017-04-11] MEDS: METOPROLOL TARTRATE 50 MG TAB PO SCH ×2 (08:20→20:48)
[2017-04-11] MEDS: PREGABALIN 100 MG CAP PO SCH ×2 (08:20→20:48)
[2017-04-11] MEDS: POTASSIUM CHLORIDE ER 20 MEQ TAB.ER PO SCH (08:20)
[2017-04-11] MEDS: BUMETANIDE 1 MG TAB PO SCH ×2 (08:20→20:19)
[2017-04-11] MEDS: ALPRAZolam 0.5 MG TAB PO SCH ×2 (08:20→20:14)
[2017-04-11] MEDS: ENOXAPARIN 40 MG/0.4 ML SYRINGE SQ SCH (08:21)
[2017-04-11] MEDS: FLUoxetine HCL 20 MG CAP PO SCH (08:21)
[2017-04-11] MEDS: lamoTRIgine 100 MG TAB PO SCH (08:21)
[2017-04-11] MEDS: IPRATROPIUM-ALBUTEROL 3 ML NEB INHALATION SCH ×4 (09:40→19:56)
[2017-04-11] MEDS: BUDESONIDE 1 MG/2 ML NEBU INHALATION SCH ×2 (09:40→19:56)
[2017-04-11 10:30] LABS: ABG PH 7.46 (7.35-7.45)
[2017-04-11 10:31] LABS: ABG Base Excess 1.7 mmol/L; ABG HCO3 25 mmol/L (21-25); ABG Oxygen Saturation 93.3 % (94-97); ABG PCO2 36 mmHg (35-45); ABG PO2 63 mmHg (83-108); ABG TCO2 26 mmol/L (19-24)
[2017-04-11] MEDS ORDERED: LIDOCAINE 2% INJ 20 MG/ML SQ ONE (10:54)
[2017-04-11] MEDS: ONDANSETRON 4 MG TAB PO PRN (11:19)
[2017-04-11] MEDS: PIPERACILLIN-TAZOBACTAM 3.375 GM in DEXTROSE/WATER 1 50ML.BAG IVPB SCH ×3 (11:21→23:44)
[2017-04-11 12:10] LABS: Glucose,Whole Blood 148 mg/dL (75-99)
[2017-04-11] MEDS: BUTALB/APAP/CAFF 50-325-40MG TAB PO PRN (12:47)
[2017-04-11] MEDS: INSULIN ASPART 100 UNIT/ML 1 ML 10 ML VIAL SQ SCH ×3 (13:33→20:23)
--- NOTE | 2017-04-11 14:14 | IR ---
EXAMINATION TYPE: IR cvc insert >=5 years DATE OF EXAM: 04/11/2017 COMPARISON: NONE CLINICAL HISTORY: Sarcoidosis Needs long-term intravenous access for therapy. PROCEDURE: After informed consent, the skin overlying the basilic vein was localized with ultrasound and noted t o be compressible and patent. An ultrasound image was obtained and submitted on the patient's chart. The overlying skin was prepped and draped and Lidocaine was used for local anesthesia. A skin laureano was made with a scalpel. Access was gained to the vein under ultrasound guidance with a 21 gauge ne edle and a 0.018 inch wire was advanced. Access site was dilated with Peel-Away sheath and catheter tailored to the appropriate length and advanced such that the distal tip is at the cavoatrial junctio n. Spot image was obtained verifying placement. Catheter was fixed to the skin with suture and a st erile dressing was placed following hemostasis. Catheter was aspirated and flushed with saline. Pat ient was discharged in stable condition without complication.Maximal barrier technique is utilized. Ultrasound image is documented on the chart. Ultrasound used with sterile technique. Fluoro time and fluoroscopic images submitted to document procedure: 40 intraoperative images, 0.6 mi nutes fluoroscopy time IMPRESSION: STATUS POST ULTRASOUND AND FLUOROSCOPIC GUIDED PICC LINE PLACEMENT, READY FOR USE. THIS PROCEDURE WAS PERFORMED BY THE UNDERSIGNED.
--- NOTE | 2017-04-11 15:33 | P.CNPUL ---
History of Present Illness Consult date: 04/11/17 Requesting physician: Kobi Weiner Reason for consult: dyspnea, cough, COPD, hypoxemia, pneumonia, pulmonary fibrosis, abnormal CXR/CT, other Chief complaint: Shortness of breath, right-sided chest wall pain, sarcoidosis, hypoxemia History of present illness: Meme is a 46-year-old white female patient who follows with ABHISHEK Thornton, presented to the emergency department on 04/10/2017 at 1600 with complaints of increasing shortness of breath, right-sided chest wall pain, hypoxia, with O2 sat going down as low as 76% on room air, productive cough with dark brown sputum, fever at home of 103F. She states she is been sick on and off this winter, was recently hospitalized in March for an acute COPD exacerbation, with acute on chronic hypoxic respiratory failure, and we had seen her in consult on 03/18/2017. However the patient signed out AMA the following day, and did not follow-up with any pulmonary doctors after that. Most recently her PCP treated her with a round of oral Levaquin which she completed 2 weeks ago. Patient has chronic hypoxic respiratory failure, due to history of COPD and sarcoidosis, which was confirmed by lung biopsy at [facility] and the patient is on maintenance dose prednisone 50 mg daily. She also has morbid obesity with features of obstructive sleep apnea, however this has not been officially confirmed. Other medical history includes bronchial asthma, pulmonary embolisms, DVTs, heart failure, hypertension, MRSA pneumonia. She is an ex-smoker, she states she quit smoking 6 months ago, however prior to that she she smoked for over 20 years. She states she has had multiple hospitalizations for her chronic pulmonary problems, and has been intubated and placed on mechanical ventilation multiple times, most of those times at [facility]. She is on Coumadin for her history of PEs and DVTs. Chest x -ray taken on 04/10/2017 shows fine reticular pattern of increased density throughout the lungs, prominence of the pulmonary vasculature, there is partial confluence of density in the right lower lung zone. This was followed up by chest CTA which showed no evidence of pulmonary embolism, but there were scattered areas of pneumonitis, suggestive of pulmonary fibrosis within the right lower lobe, right middle lobe, bilateral upper lobe areas. This was suggestive of pulmonary fibrosis, or atypical pulmonary edema. Doppler ultrasound of the bilateral lower legs was negative for DVTs. Patient is on her home dose of Coumadin, however her INR is subtherapeutic at 1.1 on admission. Lab work showed WBC of 11.9, hemoglobin of 14, serum sodium was 137 , potassium is 4.6, B1 was 9, creatinine of 0.51. Cardiac enzymes and troponins were negative 1, influenza screen was negative. Upon my evaluation this morning, patient is obviously cyanotic, mildly short of breath, but still talking on the phone to one of her family members. On 3 L per nasal cannula, her O2 sat was only 84%. She was placed on high flow nasal cannula, blood gas was done and it showed pO2 of 63, pCO2 of 36, pH of 7.46 this was done on 55% FiO2. FiO2 will be titrated up to keep O2 sat at 92% or better. Review of Systems All systems: negative Constitutional: Reports sweats, Denies chills, Denies fever Eyes: denies blurred vision, denies pain Ears, nose, mouth and throat: Denies headache, Denies sore throat Cardiovascular: Denies chest pain, Denies shortness of breath Respiratory: Reports congestion, Reports cough with sputum, Reports dyspnea, Reports home oxygen, Reports pain on inspiration, Reports pleurisy, Reports respiratory infections, Reports wheezing, Denies cough Gastrointestinal: Denies abdominal pain, Denies diarrhea, Denies nausea, Denies vomiting Genitourinary: Denies dysuria, Denies hematuria Musculoskeletal: Denies myalgias Integumentary: Denies pruritus, Denies rash Neurological: Denies numbness, Denies weakness Psychiatric: Denies anxiety, Denies depression Endocrine: Denies fatigue, Denies weight change Past Medical History Past Medical History: Blood Disorder, Heart Failure, COPD, Deep Vein Thrombosis (DVT), Hyperlipidemia, Hypertension, Myocardial Infarction (RI), Musculoskeletal Disorder, Pneumonia, Pulmonary Embolus (PE) Additional Past Medical History / Comment(s): PE 2012; Sarcoidosis diagnosed in 2015 following a bronchoscopy and lung biopsy done at [facility] and she was started on predniosone and she took the therapy for almost 1 year, polycythemia, overweight, bilateral PE (2011, 2015), bilateral DVTs, fibromyalgia, bipolar disorder, degenerative disk disorder, coronary artery disease along with previous history of a RI and ventilator dependent respiratory failure with MRSA pneumonia for which the patient was hospitalized [facility] in 2012. Viral meningitis in October 2014. Last Myocardial Infarction Date:: February 15, 2013 History of Any Multi-Drug Resistant Organisms: MRSA Date of last positivie culture/infection: 2013 MDRO Source:: Lungs Past Surgical History: Section, Cholecystectomy, Heart Catheterization , Hernia Repair, Orthopedic Surgery Additional Past Surgical History / Comment(s): Lt ankle surgery,BRONCH Past Anesthesia/Blood Transfusion Reactions: Motion Sickness, Postoperative Nausea & Vomiting (PONV) Additional Past Anesthesia/Blood Transfusion Reaction / Comment(s): pt stated that last April she coded due to anesthetic Smoking Status: Current every day smoker - Past Family History Father Family Medical History: Blood Disorder, Congestive Heart Failure (CHF), CVA/TIA , Deep Vein Thrombosis (DVT), Myocardial Infarction (RI) Additional Family Medical History / Comment(s): polycythemia Mother Family Medical History: Congestive Heart Failure (CHF), Diabetes Mellitus, Deep Vein Thrombosis (DVT), Myocardial Infarction (RI), Musculoskeletal Disorder Additional Family Medical History / Comment(s): DDD Sister(s) Family Medical History: No Reported History Brother(s) Family Medical History: No Reported History Son(s) Family Medical History: No Reported History Daughter(s) Family Medical History: No Reported History Medications and Allergies Home Medications Medication Instructions Recorded Confirmed Type Cetirizine HCl [Zyrtec] 10 mg PO DAILY PRN 07/16/14 04/10/17 History Ergocalciferol [Vitamin D2 50,000 units PO TH 07/16/14 04/10/17 History (DRISDOL)] Albuterol Inhaler [Ventolin Hfa 2 puff INHALATION RT-Q6H PRN #1 08/20/15 Rx Inhaler] puff FLUoxetine HCL [PROzac] 20 mg PO DAILY #30 capsule 08/20/15 04/10/17 Rx Metoprolol Tartrate [Lopressor] 50 mg PO BID #60 tab 08/20/15 04/10/17 Rx Montelukast [Singulair] 10 mg PO HS #30 tab 08/20/15 04/10/17 Rx lamoTRIgine [LaMICtal] 200 mg PO DAILY 03/22/16 04/10/17 History Baclofen [Lioresal] 20 mg PO TID PRN 10/18/16 04/10/17 History Bumetanide 2 mg PO BID 10/18/16 04/10/17 History Butalb/APAP/Caff 50-325-40Mg 1 tab PO Q4H PRN 10/18/16 04/10/17 History [Fioricet 50-325-40] Ondansetron HCl [Zofran] 4 mg PO DAILY PRN 10/18/16 04/10/17 History Pregabalin [Lyrica] 100 mg PO BID 10/18/16 04/10/17 History ALPRAZolam [Xanax] 0.5 mg PO BID 04/10/17 04/10/17 History Acetaminophen-Codeine 300-30mg 1 tab PO Q4H PRN 04/10/17 04/10/17 History [Tylenol #3] Beclomethasone Dipropionate [Qvar 2 puff INHALATION RT-BID 04/10/17 04/10/17 History 80 mcg] Enoxaparin [Lovenox] 40 mg SQ BID 04/10/17 04/10/17 History Ipratropium-Albuterol Nebulize 3 ml INHALATION RT-QID PRN 04/10/17 04/10/17 History [Duoneb 0.5 mg-3 mg/3 ml Soln] Mirtazapine [Remeron] 45 mg PO HS 04/10/17 04/10/17 History Potassium Chloride [Klor-Con 20 meq PO DAILY 04/10/17 04/10/17 History Sprinkle] Warfarin [Coumadin] 2 mg PO HS 04/10/17 04/10/17 History Warfarin [Coumadin] 5 mg PO HS 04/10/17 04/10/17 History Allergies Allergy/AdvReac Type Severity Reaction Status Date / Time ketorolac tromethamine Allergy Severe Anaphylaxis Verified 04/10/17 21:48 [From Toradol] Opioids - Morphine Analogues Allergy Mild Itching Verified 04/10/17 21:48 Iodinated Contrast- Oral and Allergy Unknown Verified 04/10/17 21:48 IV Dye rivaroxaban [From Xarelto] Allergy Rash/Hives Verified 04/10/17 21:48 sumatriptan [From Imitrex] Allergy Anaphylaxis Verified 04/10/17 21:48 sumatriptan succinate Allergy Anaphylaxis Verified 04/10/17 21:48 [From Imitrex] morphine AdvReac Severe Itching Verified 04/10/17 21:48 iodine AdvReac Intermediate Itching Verified 04/10/17 21:48 tramadol AdvReac Anaphylaxis Verified 04/10/17 21:48 vancomycin AdvReac Itching Verified 04/10/17 21:48 Rich wipes AdvReac Severe Rash/Hives Uncoded 04/10/17 21:48 Physical Exam Vitals: Vital Signs Temp Pulse Pulse Pulse Resp BP BP 04/11/17 14:51 88 20 98/55 04/11/17 12:32 96 04/11/17 12:21 96 04/11/17 11:50 20 04/11/17 10:18 04/11/17 09:54 104 H 04/11/17 09:41 102 H 04/11/17 08:00 99.0 F 102 H 18 109/55 04/11/17 05:21 114 H 04/11/17 05:12 115 H 04/11/17 04:00 99.6 F 115 H 20 138/64 04/11/17 00:00 98 F 128 H 20 136/80 04/10/17 23:59 99 04/10/17 23:50 96 04/10/17 20:49 95 04/10/17 20:39 95 18 04/10/17 20:00 99.6 F 99 20 130/73 04/10/17 19:39 98.8 F 95 18 114/65 04/10/17 18:02 99 04/10/17 17:52 99 20 04/10/17 17:22 99.0 F 101 H 22 140/65 04/10/17 15:13 99.4 F 99 22 135/92 Pulse Ox 04/11/17 14:51 88 L 04/11/17 12:32 04/11/17 12:21 04/11/17 11:50 04/11/17 10:18 91 L 04/11/17 09:54 04/11/17 09:41 04/11/17 08:00 90 L 04/11/17 05:21 04/11/17 05:12 04/11/17 04:00 90 L 04/11/17 00:00 90 L 04/10/17 23:59 04/10/17 23:50 04/10/17 20:49 01/09/18 20:39 93 L 04/10/17 20:00 92 L 04/10/17 19:39 98 04/10/17 18:02 04/10/17 17:52 04/10/17 17:22 96 04/10/17 15:13 90 L Intake and Output 04/10/17 04/11/17 04/11/17 22:59 06:59 14:59 Intake Total 540 240 Balance 540 240 Intake: Oral 540 240 Other: Voiding Method Toilet # Voids 2 2 Weight 112.6 kg 112.6 kg GENERAL EXAM: Alert, pleasant, 46-year-old white female, obese, obviously cyanotic, but comfortable in no apparent distress. HEAD: Normocephalic/atraumatic. EYES: Normal reaction of pupils, equal size. Conjunctiva pink, sclera white. NOSE: Clear with pink turbinates. THROAT: No erythema or exudates. NECK: No masses, no JVD, no thyroid enlargement, no adenopathy. CHEST: No chest wall deformity. Symmetrical expansion. LUNGS: Equal air entry with diffuse wheezing throughout the lung diana, patient has congested productive cough CVS: Regular rate and rhythm, normal S1 and S2, no gallops, no murmurs, no rubs ABDOMEN: Soft, nontender. No hepatosplenomegaly, normal bowel sounds, no guarding or rigidity. EXTREMITIES: No clubbing, no edema, no cyanosis, 2+ pulses and upper and lower extremities. MUSCULOSKELETAL: Muscle strength and tone normal. SPINE: No scoliosis or deformity SKIN: No rashes CENTRAL NERVOUS SYSTEM: Alert and oriented -3. No focal deficits, tone is normal in all 4 extremities. PSYCHIATRIC: Alert and oriented -3. Appropriate affect. Intact judgment and insight. Results - Laboratory Findings CBC and BMP: 04/10/17 16:35 04/10/17 16:35 ABG ABG pH 7.46 (7.35-7.45) H 04/11/17 10:18 ABG pCO2 36 mmHg (35-45) 04/11/17 10:18 ABG pO2 63 mmHg (83-108) L 04/11/17 10:18 ABG O2 Saturation 93.3 % (94-97) L 04/11/17 10:18 PT/INR, D-dimer PT 11.0 sec (9.0-12.0) 04/10/17 16:35 INR 1.1 (<1.2) 04/10/17 16:35 Abnormal lab findings: Abnormal Labs 04/10/17 04/10/17 04/10/17 16:35 16:35 16:35 WBC 11.9 H Neutrophils # 10.3 H APTT 20.6 L ABG pH ABG pO2 ABG Total CO2 ABG O2 Saturation Creatinine 0.51 L Glucose 143 H POC Glucose (mg/dL) Phosphorus 2.4 L AST 42 H Urine Appearance Urine Protein Urine Glucose (UA) Ur Squamous Epith Cells Urine Mucus 04/10/17 04/11/17 04/11/17 16:35 04:51 10:18 WBC Neutrophils # APTT ABG pH 7.46 H ABG pO2 63 L ABG Total CO2 26 H ABG O2 Saturation 93.3 L Creatinine Glucose POC Glucose (mg/dL) 164 H Phosphorus AST Urine Appearance Cloudy H Urine Protein Trace H Urine Glucose (UA) 1+ H Ur Squamous Epith Cells 10 H Urine Mucus Rare H 04/11/17 11:55 WBC Neutrophils # APTT ABG pH ABG pO2 ABG Total CO2 ABG O2 Saturation Creatinine Glucose POC Glucose (mg/dL) 148 H Phosphorus AST Urine Appearance Urine Protein Urine Glucose (UA) Ur Squamous Epith Cells Urine Mucus - Diagnostic Findings Chest x-ray: report reviewed CT scan - chest: report reviewed Additional studies: Venous Doppler studies, twelve-lead EKG Assessment and Plan Plan: Assessment: #1. Acute on chronic hypoxic respiratory failure, multifactorial, COPD exacerbation, sarcoidosis, pulmonary fibrosis, cannot exclude pneumonia. Patient presented with a febrile illness, chest congestion, wheezing, production of thick brown sputum, right chest wall pain, hypoxia O2 sat 84% on 3 L per nasal cannula. CTA chest from 04/20/2017 shows extensive honeycombing type pneumonitis, suggestive of pulmonary fibrosis, within the right lower lobe , right middle lobe, and bilateral upper lobe areas. No evidence of PEs noted. #2. Recent hospitalization for COPD exacerbation in March 2017, patient signed out AMA, did not receive full course of treatment #3. Recent pneumonia, treated with a round of oral Levaquin, completed the course 2 weeks ago #4. Sarcoidosis, was confirmed by lung biopsy at [facility] in 2014, currently on maintenance dose of prednisone of 50 mg daily #5. History of pulmonary embolisms in 2012 and 2016, DVTs, currently on anticoagulation with Coumadin, however the levels are subtherapeutic on admission, INR is 1.1, question medical compliance. Had previously tried Xarelto, developed reaction to it, Pradaxa was not covered on her insurance plan #6. Nicotine addiction, currently in remission, carries over [id number] smoking history #7. Obesity with features of obstructive sleep apnea, although this has not been officially confirmed #8. Anxiety #9. Coronary artery disease, history of myocardial infarction #10. History of MRSA pneumonia #11. Recurrent hospitalizations and intubations for respiratory complications #12. Bipolar disorder #13. Degenerative disc disease #14. Hypertension #15. Hyperlipidemia #16. Fibromyalgia Plan: Agree with IV Solu-Medrol, continue Pulmicort, continue DuoNeb, will add Perforomist. We initiated the patient on Zosyn, will broaden antibiotic coverage and add Levaquin, we would've liked to add vancomycin, however the patient has an ALLERGIC reaction to it. Obtain sputum culture, titrate FiO2 to keep O2 sat at 92% or better. Continue Coumadin, continue Pepcid. Patient will be transferred to the intensive care, in view of her very marginal respiratory status and high probability for complications. We will consider bronchoscopy if there is no improvement, patient remains very tight and wheezy, and very marginal, requiring high FiO2, unable to proceed with bronchoscopy at this time. Further recommendations to follow, patient will be monitored closely in the intensive care. I performed a history & physical examination of the patient and discussed their management with my nurse practitioner, Cydney Hart. I reviewed the nurse practitioner's note and agree with the documented findings and plan of care. Lung sounds are positive for diffuse wheezes throughout the lung diana. The findings and the impression was discussed with the patient. I attest to the documentation by the nurse practitioner. Time with Patient: Greater than 30
[2017-04-11 15:56] LABS: Glucose,Whole Blood 168 mg/dL (75-99)
[2017-04-11] MEDS: LEVOFLOXACIN 500MG-D5W PMX 500 MG in DEXTROSE/WATER 1 100ML.BAG IVPB SCH (16:26)
[2017-04-11] MEDS ORDERED: NALOXONE 0.4 MG/ML 1 ML VIAL IV PRN (16:30)
[2017-04-11 17:37] LABS: Glucose,Whole Blood 173 mg/dL (75-99)
[2017-04-11] MEDS: SODIUM CHLORIDE 0.9% 1,000 ML IV SCH (17:48)
[2017-04-11 18:35] LABS: Basophils % (A) 0 %; Eosinophils # (A) 0.1 k/uL (0-0.7); Eosinophils % (A) 0 %; HCT 40.5 % (34.0-46.0); HGB 13.3 gm/dL (11.4-16.0); Lymphocytes # (A) 1.1 k/uL (1.0-4.8); Lymphocytes % (A) 9 %; MCH 31.4 pg (25.0-35.0); MCHC 32.8 g/dL (31.0-37.0); MCV 95.8 fL (80.0-100.0); Monocytes # (A) 0.6 k/uL (0-1.0); Monocytes % (A) 5 %; Neutrophils # (A) 10.6 k/uL (1.3-7.7); Neutrophils % (A) 85 %; Platelet Count 210 k/uL (150-450); RBC 4.23 m/uL (3.80-5.40); RDW 15.1 % (11.5-15.5); WBC 12.4 k/uL (3.8-10.6)
[2017-04-11 18:44] LABS: Anion Gap 11 mmol/L; Blood Urea Nitrogen 10 mg/dL (7-17); Calcium 8.8 mg/dL (8.4-10.2); Carbon Dioxide 28 mmol/L (22-30); Chloride 99 mmol/L (98-107); Glucose 167 mg/dL (74-99); Magnesium 1.9 mg/dL (1.6-2.3); Phosphorus 2.5 mg/dL (2.5-4.5); Sodium 138 mmol/L (137-145)
[2017-04-11 18:52] LABS: INR 1.2 (<1.2); Prothrombin Time 11.2 sec (9.0-12.0)
[2017-04-11] MEDS: WARFARIN 2 MG TAB PO SCH (18:56)
[2017-04-11] MEDS: WARFARIN 5 MG TAB PO SCH (18:56)
[2017-04-11] MEDS: FORMOTEROL FUMARATE 20 MCG/2 ML NEBU INHALATION SCH (19:56)
[2017-04-11 20:09] LABS: Hemoglobin A1C 5.3 % (4.0-6.0)
[2017-04-11] MEDS: ENOXAPARIN 80 MG/0.8 ML SYRINGE SQ SCH (20:17)
[2017-04-11] MEDS: MONTELUKAST 10 MG TAB PO SCH (20:18)
[2017-04-11] MEDS: MIRTAZAPINE 45 MG TABLET PO SCH (20:18)
[2017-04-11 20:19] LABS: Glucose,Whole Blood 164 mg/dL (75-99)
--- NOTE | 2017-04-11 22:39 | PN ---
PROGRESS NOTE SUBJECTIVE: 46-year-old white female, acute on chronic hypoxemic respiratory failure, COPD exacerbation, sarcoidosis, pulmonary fibrosis, and not improving. She has been sent to ICU. She is saturating 84% on 6 L. CTA shows pneumonitis, pulmonary fibrosis, right middle lobe, right lower lobe, bilateral upper lobes. No PE. She signed out AMA on a recent hospitalization of COPD exacerbation and has had recent pneumonia treated with a round of oral Levaquin, finishing 2 weeks ago, sarcoidosis history. She was on a maintenance dose of prednisone 50 mg daily. She has history of pulmonary embolism x2. Nicotine addiction. PLAN: IV Solu-Medrol, Pulmicort, DuoNeb, Perforomist, Zosyn, Levaquin, pulmonary recommendations as mentioned above. Administer to the ICU as possible bronchoscopy may be needed. MMODL / IJN: [id number] /
[2017-04-12] MEDS: HYDROmorphone 2 MG/ML 1 ML SYRINGE IVP PRN (00:14)
[2017-04-12] MEDS: LORazepam 2 MG/ML INJ IV PRN ×4 (01:19→18:31)
[2017-04-12] MEDS: HYDROmorphone 4 MG/ML 1 ML SYRINGE IVP PRN ×5 (04:26→20:45)
[2017-04-12] MEDS: SODIUM CHLORIDE 0.9% 1,000 ML IV SCH ×2 (05:05→11:37)
[2017-04-12] MEDS: methylPREDNISolone SOD SUCCI 125 MG/2 ML VIAL IV SCH ×4 (05:06→23:31)
[2017-04-12 05:31] LABS: Basophils % (A) 0 %; Eosinophils % (A) 0 %; HCT 39.7 % (34.0-46.0); HGB 12.7 gm/dL (11.4-16.0); Lymphocytes # (A) 0.9 k/uL (1.0-4.8); Lymphocytes % (A) 6 %; MCH 31.6 pg (25.0-35.0); MCV 98.9 fL (80.0-100.0); Macrocytosis Slight; Monocytes # (A) 0.7 k/uL (0-1.0); Monocytes % (A) 5 %; Neutrophils # (A) 11.5 k/uL (1.3-7.7); Neutrophils % (A) 87 %; Platelet Count 200 k/uL (150-450); RBC 4.01 m/uL (3.80-5.40); RDW 15.4 % (11.5-15.5); WBC 13.2 k/uL (3.8-10.6)
[2017-04-12 05:42] LABS: Anion Gap 7 mmol/L; Blood Urea Nitrogen 11 mg/dL (7-17); Carbon Dioxide 30 mmol/L (22-30); Chloride 101 mmol/L (98-107); Glucose 160 mg/dL (74-99); Magnesium 2.1 mg/dL (1.6-2.3); Phosphorus 2.4 mg/dL (2.5-4.5); Potassium 3.9 mmol/L (3.5-5.1); Sodium 138 mmol/L (137-145)
[2017-04-12 05:46] LABS: INR 1.3 (<1.2); Prothrombin Time 11.9 sec (9.0-12.0)
[2017-04-12] MEDS: guaiFENesin-DM 100-10MG/5ML 10 ML CUP PO PRN ×2 (05:53→20:26)
--- NOTE | 2017-04-12 06:50 | XR ---
EXAMINATION TYPE: XR chest 1V DATE OF EXAM: 04/12/2017 CLINICAL HISTORY: Difficulty breathing progress study. TECHNIQUE: Single AP portable upright view of the chest is obtained. COMPARISON: Chest x-ray and CTA chest from 2 days earlier FINDINGS: There is new left-sided PICC line with tip in SVC. There is diminished inspiration on curr ent study. There is diffuse reticulonodular opacities redemonstrated bilaterally with suspected progr ession from 2 days earlier. No large pleural effusion or pneumothorax is seen bilaterally. Cardiac si lhouette size is stable and upper limits of normal. Visualized osseous structures are intact. IMPRESSION: Worsening bilateral diffuse reticulonodular infiltrates and/or edema. Consider developing ARDS and/or atypical infections. Correlate clinically.
[2017-04-12 07:09] LABS: Glucose,Whole Blood 186 mg/dL (75-99)
[2017-04-12] MEDS ORDERED: Potassium Replacement Protocol 1 EACH MISC MISCELLANE PRN (07:24)
[2017-04-12] MEDS: IPRATROPIUM-ALBUTEROL 3 ML NEB INHALATION SCH ×4 (07:37→19:32)
[2017-04-12] MEDS: BUDESONIDE 1 MG/2 ML NEBU INHALATION SCH ×2 (07:37→19:32)
[2017-04-12] MEDS: FORMOTEROL FUMARATE 20 MCG/2 ML NEBU INHALATION SCH ×2 (07:37→19:32)
[2017-04-12] MEDS: INSULIN ASPART 100 UNIT/ML 1 ML 10 ML VIAL SQ SCH ×5 (07:52→20:24)
[2017-04-12] MEDS ORDERED: POTASSIUM CHLORIDE ER 20 MEQ TAB.ER PO SCH (08:00)
[2017-04-12] MEDS: POTASSIUM CHLORIDE ER 20 MEQ TAB.ER PO SCH ×2 (08:33→08:35)
[2017-04-12] MEDS: PREGABALIN 100 MG CAP PO SCH ×2 (08:34→20:23)
[2017-04-12] MEDS: PANTOPRAZOLE 40 MG TABLET PO SCH (08:34)
[2017-04-12] MEDS: BUMETANIDE 1 MG TAB PO SCH ×2 (08:35→20:17)
[2017-04-12] MEDS: ALPRAZolam 0.5 MG TAB PO SCH ×2 (08:35→20:16)
[2017-04-12] MEDS: PIPERACILLIN-TAZOBACTAM 3.375 GM in DEXTROSE/WATER 1 50ML.BAG IVPB SCH ×3 (08:35→23:31)
[2017-04-12] MEDS: ENOXAPARIN 80 MG/0.8 ML SYRINGE SQ SCH ×2 (08:36→20:17)
[2017-04-12] MEDS: FLUoxetine HCL 20 MG CAP PO SCH (08:36)
[2017-04-12] MEDS: METOPROLOL TARTRATE 50 MG TAB PO SCH ×2 (08:37→20:18)
[2017-04-12] MEDS: lamoTRIgine 100 MG TAB PO SCH (08:37)
[2017-04-12] MEDS ORDERED: ERGOCALCIFEROL 50,000 UNIT CAP PO SCH (09:00)
[2017-04-12] MEDS ORDERED: FUROSEMIDE 10 MG/ML 4 ML VIAL IV STA (09:19)
--- NOTE | 2017-04-12 10:14 | P.PN ---
Subjective Progress Note Date: 04/12/17 Principal diagnosis: Acute hypoxic respiratory failure secondary to community-acquired pneumonia and sarcoidosis. History of present illness: Meme is a 46-year-old white female patient who follows with ABHISHEK Thornton, presented to the emergency department on 04/10/2017 at 1600 with complaints of increasing shortness of breath, right-sided chest wall pain, hypoxia, with O2 sat going down as low as 76% on room air, productive cough with dark brown sputum, fever at home of 103F. She states she is been sick on and off this winter, was recently hospitalized in March for an acute COPD exacerbation, with acute on chronic hypoxic respiratory failure, and we had seen her in consult on 03/18/2017. However the patient signed out AMA the following day, and did not follow-up with any pulmonary doctors after that. Most recently her PCP treated her with a round of oral Levaquin which she completed 2 weeks ago. Patient has chronic hypoxic respiratory failure, due to history of COPD and sarcoidosis, which was confirmed by lung biopsy at [facility] and the patient is on maintenance dose prednisone 50 mg daily. She also has morbid obesity with features of obstructive sleep apnea, however this has not been officially confirmed. Other medical history includes bronchial asthma, pulmonary embolisms, DVTs, heart failure, hypertension, MRSA pneumonia. She is an ex-smoker, she states she quit smoking 6 months ago, however prior to that she she smoked for over 20 years. She states she has had multiple hospitalizations for her chronic pulmonary problems, and has been intubated and placed on mechanical ventilation multiple times, most of those times at [facility]. She is on Coumadin for her history of PEs and DVTs. Chest x -ray taken on 04/10/2017 shows fine reticular pattern of increased density throughout the lungs, prominence of the pulmonary vasculature, there is partial confluence of density in the right lower lung zone. This was followed up by chest CTA which showed no evidence of pulmonary embolism, but there were scattered areas of pneumonitis, suggestive of pulmonary fibrosis within the right lower lobe, right middle lobe, bilateral upper lobe areas. This was suggestive of pulmonary fibrosis, or atypical pulmonary edema. Doppler ultrasound of the bilateral lower legs was negative for DVTs. Patient is on her home dose of Coumadin, however her INR is subtherapeutic at 1.1 on admission. Lab work showed WBC of 11.9, hemoglobin of 14, serum sodium was 137 , potassium is 4.6, B1 was 9, creatinine of 0.51. Cardiac enzymes and troponins were negative 1, influenza screen was negative. Upon my evaluation this morning, patient is obviously cyanotic, mildly short of breath, but still talking on the phone to one of her family members. On 3 L per nasal cannula, her O2 sat was only 84%. She was placed on high flow nasal cannula, blood gas was done and it showed pO2 of 63, pCO2 of 36, pH of 7.46 this was done on 55% FiO2. FiO2 will be titrated up to keep O2 sat at 92% or better. Patient was reevaluated today on 04/12/2016, she was transferred to the ICU yesterday after I evaluated the patient, placed on a high flow nasal cannula, and placed on antibiotics, bronchodilators, steroids, however the patient does not seem to be making much improvement. She is a bit worse clinically, and her chest x-ray is showing worsening interstitial infiltrates bilaterally. Patient will be given a dose of Lasix 40 mg IV push, I have switched her from a nasal cannula to airvo2 with 50 L/m flow and 70% FiO2. Her O2 saturations are now in the mid 90s. Patient will likely benefit from bronchoscopy, however my main concern that the patient is borderline, she will need to be intubated in order to perform a safe bronchoscopy. She was certainly desaturated during bronchoscopy, and she would have to be intubated. This will be decided upon hopefully in the next 24 hours depending on her overall response to treatment. In the meantime I have recommended infectious disease consultation with Dr. Lott. My only concern is the fact that the patient is not covered for PCP, patient is relatively immunocompromised, she has been on prednisone at 60 mg orally for quite some time given to her by her primary care physician for presumptive sarcoidosis. This diagnosis was supposedly made at [facility] when the patient underwent lung biopsy. Patient always had a picture of interstitial lung disease, felt to be at one point to be respiratory bronchiolitis associated interstitial lung disease. But since the biopsy was done at [facility], it was proven to be sarcoidosis. CBC today showed WBC count of 13.2 hemoglobin 12.7. Electrolytes and renal profile are normal. Objective - Vital Signs Vital signs: Vital Signs Temp 98.3 F 04/12/17 08:00 Pulse 101 H 04/12/17 09:00 Resp 36 H 04/12/17 09:00 BP 119/58 04/12/17 09:00 Pulse Ox 86 L 04/12/17 09:00 Intake & Output 04/11/17 04/12/17 04/12/17 18:59 06:59 18:59 Intake Total 875.0 1590.0 385.0 Output Total 650 450 450 Balance 225.0 1140.0 -65.0 Weight 117.2 kg 118.4 kg Intake: IV 260 1490.0 265.0 Piperacillin-Tazobactam 3 50.0 25.0 .375 gm In Dextrose/Water 1 50ml.bag @ 12.5 mls/hr IVPB Q8HR AGNIESZKA Rx#: [id number] Sodium Chloride 0.9% 1, 220 1440 240 000 ml @ 120 mls/hr IV . Q8H20M AGNIESZKA Rx#:[id number] Sodium Chloride 0.9% 1, 40 000 ml @ 20 mls/hr IV . Q24H AGNIESZKA Rx#:[id number] Intake, IV Titration 125.0 Amount Levofloxacin 500Mg-D5w 100 Pmx 500 mg In Dextrose/ Water 1 100ml.bag @ 100 mls/hr IVPB Q24H AGNIESZKA Rx#: [id number] Piperacillin-Tazobactam 3 25.0 .375 gm In Dextrose/Water 1 50ml.bag @ 12.5 mls/hr IVPB Q8HR AGNIESZKA Rx#: [id number] Oral 490 100 120 Output: Urine 650 450 450 Other: Voiding Method Bedside Commode Bedside Commode Bedside Commode Bedpan Bedpan # Voids 2 1 - Exam GENERAL EXAM: Alert, pleasant, 46-year-old white female, obese, obviously slightly anxious, presently on 50 L/m flow and FiO2 of 70%. HEAD: Normocephalic/atraumatic. EYES: Normal reaction of pupils, equal size. Conjunctiva pink, sclera white. NOSE: Clear with pink turbinates. THROAT: No erythema or exudates. NECK: No masses, no JVD, no thyroid enlargement, no adenopathy. CHEST: No chest wall deformity. Symmetrical expansion. LUNGS: Equal air entry with diffuse wheezing throughout the lung diana, patient has congested productive cough CVS: Regular rate and rhythm, normal S1 and S2, no gallops, no murmurs, no rubs ABDOMEN: Soft, nontender. No hepatosplenomegaly, normal bowel sounds, no guarding or rigidity. EXTREMITIES: No clubbing, no edema, no cyanosis, 2+ pulses and upper and lower extremities. MUSCULOSKELETAL: Muscle strength and tone normal. SPINE: No scoliosis or deformity SKIN: No rashes CENTRAL NERVOUS SYSTEM: Alert and oriented -3. No focal deficits, tone is normal in all 4 extremities. PSYCHIATRIC: Alert and oriented -3. Appropriate affect. Intact judgment and insight. - Labs CBC & Chem 7: 04/12/17 04:55 04/12/17 04:55 Labs: Abnormal Lab Results - Last 24 Hours (Table) 04/11/17 04/11/17 04/11/17 Range/Units 10: 11:55 15:53 WBC (3.8-10.6) k/uL Neutrophils # (1.3-7.7) k/uL Lymphocytes # (1.0-4.8) k/uL INR (<1.2) ABG pH 7.46 H (7.35-7.45) ABG pO2 63 L (83-108) mmHg ABG Total CO2 26 H (19-24) mmol/L ABG O2 Saturation 93.3 L (94-97) % Creatinine (0.52-1.04) mg/dL Glucose (74-99) mg/dL POC Glucose (mg/dL) 148 H 168 H (75-99) mg/dL Calcium (8.4-10.2) mg/dL Phosphorus (2.5-4.5) mg/dL 04/11/17 04/11/17 04/11/17 Range/Units 17:36 17:59 17:59 WBC 12.4 H (3.8-10.6) k/uL Neutrophils # 10.6 H (1.3-7.7) k/uL Lymphocytes # (1.0-4.8) k/uL INR (<1.2) ABG pH (7.35-7.45) ABG pO2 (83-108) mmHg ABG Total CO2 (19-24) mmol/L ABG O2 Saturation (94-97) % Creatinine (0.52-1.04) mg/dL Glucose 167 H (74-99) mg/dL POC Glucose (mg/dL) 173 H (75-99) mg/dL Calcium (8.4-10.2) mg/dL Phosphorus (2.5-4.5) mg/dL 04/11/17 04/11/17 04/12/17 Range/Units 17:59 20:18 04:55 WBC 13.2 H (3.8-10.6) k/uL Neutrophils # 11.5 H (1.3-7.7) k/uL Lymphocytes # 0.9 L (1.0-4.8) k/uL INR 1.2 H (<1.2) ABG pH (7.35-7.45) ABG pO2 (83-108) mmHg ABG Total CO2 (19-24) mmol/L ABG O2 Saturation (94-97) % Creatinine (0.52-1.04) mg/dL Glucose (74-99) mg/dL POC Glucose (mg/dL) 164 H (75-99) mg/dL Calcium (8.4-10.2) mg/dL Phosphorus (2.5-4.5) mg/dL 04/12/17 04/12/17 04/12/17 Range/Units 04:55 04:55 07:06 WBC (3.8-10.6) k/uL Neutrophils # (1.3-7.7) k/uL Lymphocytes # (1.0-4.8) k/uL INR 1.3 H (<1.2) ABG pH (7.35-7.45) ABG pO2 (83-108) mmHg ABG Total CO2 (19-24) mmol/L ABG O2 Saturation (94-97) % Creatinine 0.50 L (0.52-1.04) mg/dL Glucose 160 H (74-99) mg/dL POC Glucose (mg/dL) 186 H (75-99) mg/dL Calcium 8.0 L (8.4-10.2) mg/dL Phosphorus 2.4 L (2.5-4.5) mg/dL Microbiology - Last 24 Hours (Table) 04/10/17 16:35 Urine Culture - Final Urine,Voided Assessment and Plan Assessment: #1. Acute on chronic hypoxic respiratory failure, multifactorial, COPD exacerbation, sarcoidosis, pulmonary fibrosis, strongly suspect underlying pneumonitis, likely community-acquired.. Patient presented with a febrile illness, chest congestion, wheezing, production of thick brown sputum, right chest wall pain, hypoxia O2 sat 84% on 3 L per nasal cannula. CTA chest from shows extensive honeycombing type pneumonitis, suggestive of pulmonary fibrosis, within the right lower lobe, right middle lobe, and bilateral upper lobe areas. No evidence of PEs noted. #2. Recent hospitalization for COPD exacerbation in March 2017, patient signed out AMA, did not receive full course of treatment #3. Recent pneumonia, treated with a round of oral Levaquin, completed the course 2 weeks ago #4. Sarcoidosis, was confirmed by lung biopsy at [facility] in 2014, currently on maintenance dose of prednisone of 50 mg daily #5. History of pulmonary embolisms in 2011 and 2015, DVTs, currently on anticoagulation with Coumadin, however the levels are subtherapeutic on admission, INR is 1.1, question medical compliance. Had previously tried Xarelto, developed reaction to it, Pradaxa was not covered on her insurance plan #6. Nicotine addiction, currently in remission, carries over [id number] smoking history #7. Obesity with features of obstructive sleep apnea, although this has not been officially confirmed #8. Anxiety #9. Coronary artery disease, history of myocardial infarction #10. History of MRSA pneumonia #11. Recurrent hospitalizations and intubations for respiratory complications #12. Bipolar disorder #13. Degenerative disc disease #14. Hypertension #15. Hyperlipidemia #16. Fibromyalgia Recommendation: Continue antibiotics, continue steroids, we will initiate infectious disease consultation, I'm tempted to consider bronchoscopy on this patient however because of her marginal pulmonary status, I would wait unless the patient ends up on mechanical ventilation. In the meantime we'll continue treatment in the form of antibiotics, steroids, bronchodilators, and supportive care measures. Critical care time is 32 minutes. Time with Patient: Greater than 30
[2017-04-12] MEDS: Acetaminophen-Codeine 300-30mg TAB PO PRN (11:36)
[2017-04-12 11:45] LABS: Glucose,Whole Blood 175 mg/dL (75-99)
[2017-04-12] MEDS ORDERED: LIDOCAINE-PRILOCAINE 2.5-2.5% CREAM 5 GM TUBE TOPICAL STA (14:20)
[2017-04-12] MEDS: LEVOFLOXACIN 500MG-D5W PMX 500 MG in DEXTROSE/WATER 1 100ML.BAG IVPB SCH (14:47)
[2017-04-12] MEDS: BUTALB/APAP/CAFF 50-325-40MG TAB PO PRN (15:50)
[2017-04-12 17:10] LABS: Glucose,Whole Blood 130 mg/dL (75-99)
[2017-04-12] MEDS: WARFARIN 2 MG TAB PO SCH (19:04)
[2017-04-12] MEDS: WARFARIN 5 MG TAB PO SCH (20:17)
[2017-04-12] MEDS: MIRTAZAPINE 45 MG TABLET PO SCH (20:18)
[2017-04-12] MEDS: MONTELUKAST 10 MG TAB PO SCH (20:18)
[2017-04-12 20:23] LABS: Glucose,Whole Blood 149 mg/dL (75-99)
[2017-04-12] MEDS: ONDANSETRON 4 MG TAB PO PRN (20:46)
--- NOTE | 2017-04-12 22:19 | PN ---
PROGRESS NOTE SUBJECTIVE: A 46-year-old white female admitted with COPD exacerbation, acute respiratory failure, started on broad-spectrum antibiotics x3 by Infectious Disease and Pulmonology. She appears to be slightly improving today with IV steroids, updraft treatments and triple therapy for antibiotics. Lungs show scattered rhonchi and wheeze. CARDIOVASCULAR: S1, S2. Anxious, nervous. ENDOCRINE: BMI is over 30. ASSESSMENT: 1. Hypoxemic respiratory failure. 2. Chronic obstructive pulmonary disease exacerbation. 3. Probable tracheobronchitis versus early pneumonia. Continue broad-spectrum antibiotics, IV steroids. ICU TIME: 30 minutes. MMODL / IJN: [id number] /
--- NOTE | 2017-04-12 23:05 | P.CONS ---
History of Present Illness - Reason for Consult Consult date: 04/12/17 - Chief Complaint Progressive shortness of breath - History of Present Illness 46-year-old female who is known to infectious disease service from prior hospitalization a few years ago. At that point in time she had pneumonia responded well to interventions. She has a known history of sarcoidosis diagnosed in 2014. She's been doing modestly well on her high-dose of steroid to 50 mg a day. At this time she is relating that she feels very poorly. She' s had progressive shortness of breath. She has cough or sputum production which is thin in nature. No hemoptysis. She has had progressively worsening shortness of breath over the last couple of days. She relates over the last 3 months there has been a decline of her status. But about a day before coming to hospitals when she noticed a marked change of her status. She was short of breath with all activities and started to feel like she was being smothered and was having some discomfort in her chest also. Eventually presented to the emergency center where she is on evidence of hypoxia because he has been admitted. She's been seen by pulmonary critical care potential bronchoscopy is noted. Infectious diseases consultation requested regarding further intervention. Review of Systems HEENT:Denies headache or acute visual change. Denies sinus or mouth discomforts. Denies neck stiffness or pain. Denies significant oral cavity pain. Denies difficulty on swallowing. Lungs: As per the HPI feels very short of breath as cough no hemoptysis Cardiovascular:He has profound shortness of breath had some chest pain that resolved. Has some pleuritic chest wall pain. No midsternal chest pressure. Dyspnea on exertion but no orthopnea or PND Gastrointestinal:Denies nausea, vomiting, diarrhea, constipation, hematemesis, melena, hematochezia. No no significant change of bowel habit noticed. Musculoskeletal: denies significant myalgias or arthralgias. No new joint swelling. Denies new back pain. Skin: Denies new rash or lesions. No new ulcers or wounds are related.. Neuro: Denies headache or visual change. Denies any new onset weakness or difficulty with ambulation. Denies falls or seizures. Psychiatric Chronic anxiety and depression. Endocrine:Worsening chronic fatigue and weight gain Past Medical History Past Medical History: Blood Disorder, Heart Failure, COPD, Deep Vein Thrombosis (DVT), Hyperlipidemia, Hypertension, Myocardial Infarction (ID), Musculoskeletal Disorder, Pneumonia, Pulmonary Embolus (PE) Additional Past Medical History / Comment(s): PE 2012; Sarcoidosis diagnosed in 2015 following a bronchoscopy and lung biopsy done at [facility] and she was started on predniosone and she took the therapy for almost 1 year, polycythemia, overweight, bilateral PE (2011, 2015), bilateral DVTs, fibromyalgia, bipolar disorder, degenerative disk disorder, coronary artery disease along with previous history of a ID and ventilator dependent respiratory failure with MRSA pneumonia for which the patient was hospitalized [facility] in 2012. Viral meningitis in October 2014. Last Myocardial Infarction Date:: February 15, 2013 History of Any Multi-Drug Resistant Organisms: MRSA Year Discovered:: 2013 MDRO Source:: Lungs Past Surgical History: Section, Cholecystectomy, Heart Catheterization , Hernia Repair, Orthopedic Surgery Additional Past Surgical History / Comment(s): Lt ankle surgery,BRONCH Past Anesthesia/Blood Transfusion Reactions: Motion Sickness, Postoperative Nausea & Vomiting (PONV) Additional Past Anesthesia/Blood Transfusion Reaction / Comm: pt stated that last April she coded due to anesthetic Additional Psychological History / Comment(s): Lives with her boyfriend. Regretfully she is an ongoing tobacco smoker despite her progressive and worsening pulmonary disease. Does not relate to significant alcohol use no recreational drug use. Currently not working. No experience. No recent travel. No animal exposures. Did leave the hospital AMA in March 2017. Difficulties with ongoing medical noncompliance Smoking Status: Current every day smoker - Past Family History Father Family Medical History: Blood Disorder, Congestive Heart Failure (CHF), CVA/TIA , Deep Vein Thrombosis (DVT), Myocardial Infarction (ID) Additional Family Medical History / Comment(s): polycythemia Mother Family Medical History: Congestive Heart Failure (CHF), Diabetes Mellitus, Deep Vein Thrombosis (DVT), Myocardial Infarction (ID), Musculoskeletal Disorder Additional Family Medical History / Comment(s): DDD Sister(s) Family Medical History: No Reported History Brother(s) Family Medical History: No Reported History Son(s) Family Medical History: No Reported History Daughter(s) Family Medical History: No Reported History Medications and Allergies Home Medications and Allergies Comment(s): Current Medications Acetaminophen/Butalbital/Caffeine (Fioricet 50-325-40) 1 each PO Q4H PRN PRN Reason: Migraine Headache Last Admin: 04/12/17 15:50 Dose: 1 each Acetaminophen/Codeine Phosphate (Tylenol #3) 1 each PO Q4H PRN PRN Reason: RIGHT POSTERIOR CHEST PAIN Last Admin: 04/12/17 11:36 Dose: 1 each Albuterol/Ipratropium (Duoneb 0.5 Mg-3 Mg/3 Ml Soln) 3 ml INHALATION RT-QID [facility] Last Admin: 04/12/17 19:32 Dose: 3 ml Albuterol/Ipratropium (Duoneb 0.5 Mg-3 Mg/3 Ml Soln) 3 ml INHALATION RT-Q2H PRN PRN Reason: Shortness Of Breath Or Wheezing Last Admin: 04/11/17 05:10 Dose: 3 ml Alprazolam (Xanax) 0.5 mg PO BID [facility] Last Admin: 04/12/17 20:16 Dose: 0.5 mg Baclofen (Lioresal) 20 mg PO TID PRN PRN Reason: Muscle Spasm Last Admin: 04/10/17 23:46 Dose: 20 mg Budesonide (Pulmicort) 1 mg INHALATION RT-BID [facility] Last Admin: 04/12/17 19:32 Dose: 1 mg Bumetanide (Bumex) 2 mg PO BID [facility] Last Admin: 04/12/17 20:17 Dose: 2 mg Enoxaparin Sodium (Lovenox) 80 mg SQ Q12HR [facility] Last Admin: 04/12/17 20:17 Dose: 80 mg Ergocalciferol (Vitamin D2) 50,000 unit PO Th@0900 [facility] Last Admin: 04/12/17 08:36 Dose: 50,000 unit Fluoxetine HCl (Prozac) 20 mg PO DAILY [facility] Last Admin: 04/12/17 08:36 Dose: 20 mg Formoterol Fumarate (Perforomist) 20 mcg INHALATION RT-BID [facility] Last Admin: 04/12/17 19:32 Dose: 20 mcg Guaifenesin/Dextromethorphan (Robitussin Dm) 10 ml PO Q4H PRN PRN Reason: Cough Last Admin: 04/12/17 20:26 Dose: 10 ml Hydromorphone HCl (Dilaudid) 2 mg IVP Q4HR PRN PRN Reason: Pain Last Admin: 01/11/18 20:45 Dose: 2 mg Piperacillin/Tazobactam/ (Dextrose 3.375 gm/ IV Solution) 50 mls @ 12.5 mls/hr IVPB Q8HR [facility] Last Admin: 04/12/17 15:58 Dose: 12.5 mls/hr Sodium Chloride (Saline 0.9%) 1,000 mls @ 120 mls/hr IV .Q8H20M [facility] Last Admin: 04/12/17 11:37 Dose: Not Given Insulin Aspart (Novolog) 0 unit SQ ACHS [facility] PRN Reason: Protocol Last Admin: 04/12/17 20:24 Dose: 2 unit Lamotrigine (Lamictal) 200 mg PO DAILY [facility] Last Admin: 04/12/17 08:37 Dose: 200 mg Levofloxacin (Levaquin) 500 mg PO DAILY [facility] Loratadine (Claritin) 10 mg PO DAILY PRN PRN Reason: Allergy Symptoms Lorazepam (Ativan) 0.5 mg IV Q4HR PRN PRN Reason: Anxiety Last Admin: 04/12/17 18:31 Dose: 0.5 mg Methylprednisolone Sodium Succinate (Solu-Medrol) 60 mg IV Q6HR [facility] Last Admin: 04/12/17 19:04 Dose: 60 mg Metoprolol Tartrate (Lopressor) 50 mg PO BID [facility] Last Admin: 04/12/17 20:18 Dose: 50 mg Mirtazapine (Remeron) 45 mg PO HS [facility] Last Admin: 04/12/17 20:18 Dose: 45 mg Miscellaneous Information (Potassium Per Protocol) 1 each MISCELLANE DAILY PRN ; Protocol PRN Reason: Per Protocol Montelukast Sodium (Singulair) 10 mg PO HS [facility] Last Admin: 04/12/17 20:18 Dose: 10 mg Naloxone HCl (Narcan) 0.2 mg IV Q2M PRN PRN Reason: Opioid Reversal Ondansetron HCl (Zofran) 4 mg PO Q8HR PRN PRN Reason: Nausea And Vomiting Last Admin: 04/12/17 20:46 Dose: 4 mg Pantoprazole Sodium (Protonix) 40 mg PO AC-BRKFST [facility] Last Admin: 04/12/17 08:34 Dose: 40 mg Potassium Chloride (K-Dur 20) 20 meq PO DAILY [facility] Last Admin: 04/12/17 08:35 Dose: 20 meq Pregabalin (Lyrica) 100 mg PO BID [facility] Last Admin: 04/12/17 20:23 Dose: 100 mg Warfarin Sodium (Coumadin) 2 mg PO 1800 [facility] Last Admin: 04/12/17 19:04 Dose: 2 mg Warfarin Sodium (Coumadin) 5 mg PO 1800 [facility] Last Admin: 04/12/17 20:17 Dose: 5 mg Home Medications Medication Instructions Recorded Confirmed Type Cetirizine HCl [Zyrtec] 10 mg PO DAILY PRN 07/16/14 04/10/17 History Ergocalciferol [Vitamin D2 50,000 units PO TH 07/16/14 04/10/17 History (DRISDOL)] Albuterol Inhaler [Ventolin Hfa 2 puff INHALATION RT-Q6H PRN #1 08/20/15 Rx Inhaler] puff FLUoxetine HCL [PROzac] 20 mg PO DAILY #30 capsule 08/20/15 04/10/17 Rx Metoprolol Tartrate [Lopressor] 50 mg PO BID #60 tab 08/20/15 04/10/17 Rx Montelukast [Singulair] 10 mg PO HS #30 tab 08/20/15 04/10/17 Rx lamoTRIgine [LaMICtal] 200 mg PO DAILY 03/22/16 04/10/17 History Baclofen [Lioresal] 20 mg PO TID PRN 10/18/16 04/10/17 History Bumetanide 2 mg PO BID 10/18/16 04/10/17 History Butalb/APAP/Caff 50-325-40Mg 1 tab PO Q4H PRN 10/18/16 04/10/17 History [Fioricet 50-325-40] Ondansetron HCl [Zofran] 4 mg PO DAILY PRN 10/18/16 04/10/17 History Pregabalin [Lyrica] 100 mg PO BID 10/18/16 04/10/17 History ALPRAZolam [Xanax] 0.5 mg PO BID 04/10/17 04/10/17 History Acetaminophen-Codeine 300-30mg 1 tab PO Q4H PRN 04/10/17 04/10/17 History [Tylenol #3] Beclomethasone Dipropionate [Qvar 2 puff INHALATION RT-BID 04/10/17 04/10/17 History 80 mcg] Enoxaparin [Lovenox] 40 mg SQ BID 04/10/17 04/10/17 History Ipratropium-Albuterol Nebulize 3 ml INHALATION RT-QID PRN 04/10/17 04/10/17 History [Duoneb 0.5 mg-3 mg/3 ml Soln] Mirtazapine [Remeron] 45 mg PO HS 04/10/17 04/10/17 History Potassium Chloride [Klor-Con 20 meq PO DAILY 04/10/17 04/10/17 History Sprinkle] Warfarin [Coumadin] 2 mg PO HS 04/10/17 04/10/17 History Warfarin [Coumadin] 5 mg PO HS 04/10/17 04/10/17 History Allergies Allergy/AdvReac Type Severity Reaction Status Date / Time ketorolac tromethamine Allergy Severe Anaphylaxis Verified 04/10/17 21:48 [From Toradol] Opioids - Morphine Analogues Allergy Mild Itching Verified 04/10/17 21:48 Iodinated Contrast- Oral and Allergy Unknown Verified 04/10/17 21:48 IV Dye rivaroxaban [From Xarelto] Allergy Rash/Hives Verified 04/10/17 21:48 sumatriptan [From Imitrex] Allergy Anaphylaxis Verified 04/10/17 21:48 sumatriptan succinate Allergy Anaphylaxis Verified 04/10/17 21:48 [From Imitrex] morphine AdvReac Severe Itching Verified 04/10/17 21:48 iodine AdvReac Intermediate Itching Verified 04/10/17 21:48 tramadol AdvReac Anaphylaxis Verified 04/10/17 21:48 vancomycin AdvReac Itching Verified 04/10/17 21:48 Rich wipes AdvReac Severe Rash/Hives Uncoded 04/10/17 21:48 Physical Exam Vitals: Vital Signs Temp Pulse Resp BP Pulse Ox 04/12/17 21:00 97.9 F 84 30 H 102/57 90 L 04/12/17 20:17 82 04/12/17 20:00 90 31 H 113/67 95 04/12/17 19:59 83 04/12/17 19:36 83 95 04/12/17 19:00 87 26 H 94 L 04/12/17 18:00 81 29 H 99/52 92 L 04/12/17 17:00 83 40 H 107/65 90 L 04/12/17 16:41 83 04/12/17 16:23 83 98 04/12/17 16:00 98.1 F 83 25 H 110/66 98 04/12/17 15:00 89 24 100/69 95 04/12/17 14:00 86 28 H 93/52 95 04/12/17 13:00 83 31 H 118/61 97 04/12/17 12:00 98.9 F 84 30 H 127/69 96 04/12/17 11:45 88 04/12/17 11:32 86 04/12/17 11:00 86 32 H 104/65 96 04/12/17 10:00 87 29 H 97 04/12/17 09:00 101 H 36 H 119/58 86 L 04/12/17 08:00 98.3 F 92 225 H 133/66 98 04/12/17 07:52 90 04/12/17 07:47 88 04/12/17 07:38 80 04/12/17 07:00 87 27 H 107/61 94 L 04/12/17 06:00 93 25 H 111/66 91 L 04/12/17 05:00 84 19 93/52 91 L 04/12/17 04:00 98.1 F 87 25 H 112/58 92 L 04/12/17 03:00 84 23 96/53 95 04/12/17 02:00 87 25 H 125/62 93 L 04/12/17 01:00 91 21 147/73 93 L 04/12/17 00:00 98.5 F 106 H 22 121/63 92 L 04/11/17 23:00 92 21 112/62 95 Intake and Output 04/12/17 04/12/17 04/12/17 06:59 14:59 22:59 Intake Total 1130.0 660.0 160 Output Total 350 2975 440 Balance 780.0 -2315 -280 Intake: IV 1130.0 540.0 160 Levaquin 150 Piperacillin-Tazobactam 3 50.0 50.0 .375 gm In Dextrose/Water 1 50ml.bag @ 12.5 mls/hr IVPB Q8HR [facility] Rx#: [id number] Sodium Chloride 0.9% 1, 1080 340 100 000 ml @ 120 mls/hr IV . Q8H20M [facility] Rx#:[id number] Sodium Chloride 0.9% 1, 60 000 ml @ 20 mls/hr IV . Q24H [facility] Rx#:[id number] Oral 120 Output: Urine 350 2975 440 Other: Voiding Method Bedside Commode Bedside Commode Bedside Commode Bedpan Bedpan Bedpan # Voids 1 Weight 118.4 kg 46-year-old woman who looks older than her stated age is quite short of breath. His uncomfortable because she is so short of breath. Does have cough without significant sputum production HEENT: Anicteric conjunctiva are pink and moist nasal mucosa grossly intact without significant lesions, there is no thrush. Edentulous Neck: The neck is supple without significant lymphadenopathy or thyromegaly. Lungs: They're symmetrical air entry however there are coarse crackles at the bases expiratory wheezes are heard no dullness or egophony Heart: Irregular with an audible S1 and S2 soft S4. There is no significant murmur click or rub, PMI was nondisplaced. Abdomen: Obese, Positive bowel sounds soft and nontender without palpable masses or organomegaly. There was no guarding or rebound. Extremities: The upper extremities have excellent pulses they are symmetric, no significant petechiae or telangiectasia. No splinter hemorrhages were noted. The lower extremity is evidence of trace pedal edema, peripheral pulses are 2+ and symmetric. Skin he has no sick an open lesions or rashes Neuro: Awake alert oriented to person place and time. There are no acute new gross focal sensory motor deficits. Patient is very anxious. Results CBC & Chem 7: 04/12/17 04:55 04/12/17 04:55 Labs: Abnormal Lab Results - Last 24 Hours (Table) 04/12/17 04/12/17 04/12/17 Range/Units 04:55 04:55 04:55 WBC 13.2 H (3.8-10.6) k/uL Neutrophils # 11.5 H (1.3-7.7) k/uL Lymphocytes # 0.9 L (1.0-4.8) k/uL INR 1.3 H (<1.2) Creatinine 0.50 L (0.52-1.04) mg/dL Glucose 160 H (74-99) mg/dL POC Glucose (mg/dL) (75-99) mg/dL Calcium 8.0 L (8.4-10.2) mg/dL Phosphorus 2.4 L (2.5-4.5) mg/dL 04/12/17 04/12/17 04/12/17 Range/Units 07:06 11:42 17:07 WBC (3.8-10.6) k/uL Neutrophils # (1.3-7.7) k/uL Lymphocytes # (1.0-4.8) k/uL INR (<1.2) Creatinine (0.52-1.04) mg/dL Glucose (74-99) mg/dL POC Glucose (mg/dL) 186 H 175 H 130 H (75-99) mg/dL Calcium (8.4-10.2) mg/dL Phosphorus (2.5-4.5) mg/dL 04/12/17 Range/Units 20:20 WBC (3.8-10.6) k/uL Neutrophils # (1.3-7.7) k/uL Lymphocytes # (1.0-4.8) k/uL INR (<1.2) Creatinine (0.52-1.04) mg/dL Glucose (74-99) mg/dL POC Glucose (mg/dL) 149 H (75-99) mg/dL Calcium (8.4-10.2) mg/dL Phosphorus (2.5-4.5) mg/dL Microbiology - Last 24 Hours (Table) 04/10/17 16:35 Urine Culture - Final Urine,Voided Laboratory Results WBC 13.2 k/uL (3.8-10.6) H 04/12/17 04:55 RBC 4.01 m/uL (3.80-5.40) 04/12/17 04:55 Hgb 12.7 gm/dL (11.4-16.0) 04/12/17 04:55 Hct 39.7 % (34.0-46.0) 04/12/17 04:55 MCV 98.9 fL (80.0-100.0) 04/12/17 04:55 MCH 31.6 pg (25.0-35.0) 04/12/17 04:55 MCHC 32.0 g/dL (31.0-37.0) 04/12/17 04:55 RDW 15.4 % (11.5-15.5) 04/12/17 04:55 Plt Count 200 k/uL (150-450) 04/12/17 04:55 Neutrophils % 87 % 04/12/17 04:55 Lymphocytes % 6 % 04/12/17 04:55 Monocytes % 5 % 04/12/17 04:55 Eosinophils % 0 % 04/12/17 04:55 Basophils % 0 % 04/12/17 04:55 Neutrophils # 11.5 k/uL (1.3-7.7) H 04/12/17 04:55 Lymphocytes # 0.9 k/uL (1.0-4.8) L 04/12/17 04:55 Monocytes # 0.7 k/uL (0-1.0) 04/12/17 04:55 Eosinophils # 0.0 k/uL (0-0.7) 04/12/17 04:55 Basophils # 0.0 k/uL (0-0.2) 04/12/17 04:55 Macrocytosis Slight 04/12/17 04:55 PT 11.9 sec (9.0-12.0) 04/12/17 04:55 INR 1.3 (<1.2) H 04/12/17 04:55 APTT 20.6 sec (22.0-30.0) L 04/10/17 16:35 Sample Site LRA 04/11/17 10:18 ABG pH 7.46 (7.35-7.45) H 04/11/17 10:18 ABG pCO2 36 mmHg (35-45) 04/11/17 10:18 ABG pO2 63 mmHg (83-108) L 04/11/17 10:18 ABG HCO3 25 mmol/L (21-25) 04/11/17 10:18 ABG Total CO2 26 mmol/L (19-24) H 04/11/17 10:18 ABG O2 Saturation 93.3 % (94-97) L 04/11/17 10:18 ABG Base Excess 1.7 mmol/L 04/11/17 10:18 Yohan Test Yes 04/11/17 10:18 FiO2 55 % 04/11/17 10:18 Sodium 138 mmol/L (137-145) 04/12/17 04:55 Potassium 3.9 mmol/L (3.5-5.1) 04/12/17 04:55 Chloride 101 mmol/L (98-107) 04/12/17 04:55 Carbon Dioxide 30 mmol/L (22-30) 04/12/17 04:55 Anion Gap 7 mmol/L 04/12/17 04:55 BUN 11 mg/dL (7-17) 04/12/17 04:55 Creatinine 0.50 mg/dL (0.52-1.04) L 04/12/17 04:55 Est GFR (MDRD) Af Amer >60 (>60 ml/min/1.73 sqM) 04/12/17 04:55 Est GFR (MDRD) Non-Af >60 (>60 ml/min/1.73 sqM) 04/12/17 04:55 Glucose 160 mg/dL (74-99) H 04/12/17 04:55 POC Glucose (mg/dL) 149 mg/dL (75-99) H 04/12/17 20:20 POC Glu [employer] ID Autumn Porter 04/12/17 20:[address] Glu mg/dL 105 04/10/17 16:35 Hemoglobin A1c 5.3 % (4.0-6.0) 04/10/17 16:35 Calcium 8.0 mg/dL (8.4-10.2) L 04/12/17 04:55 Phosphorus 2.4 mg/dL (2.5-4.5) L 04/12/17 04:55 Magnesium 2.1 mg/dL (1.6-2.3) 04/12/17 04:55 Total Bilirubin 0.7 mg/dL (0.2-1.3) 04/10/17 16:35 AST 42 U/L (14-36) H 04/10/17 16:35 ALT 33 U/L (9-52) 04/10/17 16:35 Alkaline Phosphatase 60 U/L (38-126) 04/10/17 16:35 Total Creatine Kinase 70 U/L (30-135) 04/10/17 16:35 CK-MB (CK-2) 0.8 ng/mL (0.0-2.4) 04/10/17 16:35 CK-MB (CK-2) Rel Index 1.1 04/10/17 16:35 Troponin I <0.012 ng/mL (0.000-0.034) 04/10/17 16:35 Total Protein 6.8 g/dL (6.3-8.2) 04/10/17 16:35 Albumin 3.7 g/dL (3.5-5.0) 04/10/17 16:35 Urine Color Yellow 04/10/17 16:35 Urine Appearance Cloudy (Clear) H 04/10/17 16:35 Urine pH 6.5 (5.0-8.0) 04/10/17 16:35 Ur Specific [place] 1.030 (1.001-1.035) 04/10/17 16:35 Urine Protein Trace (Negative) H 04/10/17 16:35 Urine Glucose (UA) 1+ (Negative) H 04/10/17 16:35 Urine Ketones Negative (Negative) 04/10/17 16:35 Urine Blood Negative (Negative) 04/10/17 16:35 Urine Nitrite Negative (Negative) 04/10/17 16:35 Urine Bilirubin Negative (Negative) 04/10/17 16:35 Urine Urobilinogen <2.0 mg/dL (<2.0) 04/10/17 16:35 Ur Leukocyte Esterase Negative (Negative) 04/10/17 16:35 Urine RBC 1 /hpf (0-5) 04/10/17 16:35 Urine WBC 2 /hpf (0-5) 04/10/17 16:35 Ur Squamous Epith Cells 10 /hpf (0-4) H 04/10/17 16:35 Hyaline Casts 1 /lpf (0-2) 04/10/17 16:35 Urine Mucus Rare /hpf (None) H 04/10/17 16:35 Influenza Type A RNA Not Detected (Not Detectd) 04/10/17 23:00 Influenza Type B (PCR) Not Detected (Not Detectd) 04/10/17 23:00 Microbiology 04/10/17 16:35 Urine,Voided Urine Culture - Final CT scan - chest: report reviewed (Evidence of multiple areas of infiltrate no evidence of any pulmonary embolus) Assessment and Plan (1) Multifocal pneumonia Narrative/Plan: 46-year-old female presents to Hospital feeling very poorly over just about a days timeframe. Was having some decline over status of the last 3 months. Was hospitalized in March did leave AMA. She now is profoundly short of breath feeling very poorly. She has significant wheezing cough that has been persistent. Some sputum production is occurring. No hemoptysis. She' s been seen by the cath lab tech and his contemplation for bronchoscopy. I believe this would be helpful to diagnose pneumocystis if it is occurring and also a deep specimen can be obtained for comprehensive viral studies given the current multiple viruses circulate in the community causing significant pulmonary disease. Is receiving the ICU protocol of piperacillin tazobactam and Levaquin. If there is any worsening of her status would then add intravenous Bactrim. This should give us coverage for pneumocystis as well as for the possibility of MRSA given that there seems to be a remote history although we have no positive cultures for MRSA to her multiple recent hospitalizations. Her prognosis is somewhat poor given her progressive pulmonary disease, her inability to stop smoking and her obesity. As noted pulmonary is considering bronchoscopy. Current Visit: Yes Status: Acute Code(s): J18.9 - PNEUMONIA, UNSPECIFIED ORGANISM SNOMED Code(s): 122916656 (2) Sarcoidosis Current Visit: No Status: Acute Code(s): D86.9 - SARCOIDOSIS, UNSPECIFIED SNOMED Code(s): 02933958 (3) COPD (chronic obstructive pulmonary disease) Current Visit: Yes Status: Acute Code(s): J44.9 - CHRONIC OBSTRUCTIVE PULMONARY DISEASE, UNSPECIFIED SNOMED Code(s): 56114907
[2017-04-13] MEDS: SODIUM CHLORIDE 0.9% 1,000 ML IV SCH ×3 (00:24→14:37)
[2017-04-13] MEDS: HYDROmorphone 4 MG/ML 1 ML SYRINGE IVP PRN ×3 (00:48→08:38)
[2017-04-13] MEDS: IPRATROPIUM-ALBUTEROL 3 ML NEB INHALATION PRN ×2 (01:06→14:03)
[2017-04-13] MEDS: LORazepam 2 MG/ML INJ IV PRN ×3 (01:08→17:27)
[2017-04-13 04:26] LABS: INR 1.4 (<1.2); Prothrombin Time 13.3 sec (9.0-12.0)
[2017-04-13 04:29] LABS: Basophils % (A) 0 %; Eosinophils # (A) 0.1 k/uL (0-0.7); Eosinophils % (A) 0 %; HCT 39.7 % (34.0-46.0); HGB 13.1 gm/dL (11.4-16.0); Lymphocytes % (A) 8 %; MCH 31.5 pg (25.0-35.0); MCV 95.3 fL (80.0-100.0); Mean Platelet Volume 7.1; Monocytes # (A) 0.6 k/uL (0-1.0); Monocytes % (A) 5 %; Neutrophils # (A) 10.8 k/uL (1.3-7.7); Neutrophils % (A) 85 %; Platelet Count 260 k/uL (150-450); RBC 4.16 m/uL (3.80-5.40); WBC 12.7 k/uL (3.8-10.6)
[2017-04-13 04:32] LABS: Anion Gap 8 mmol/L; Blood Urea Nitrogen 14 mg/dL (7-17); Carbon Dioxide 33 mmol/L (22-30); Chloride 98 mmol/L (98-107); Glucose 164 mg/dL (74-99); Magnesium 2.1 mg/dL (1.6-2.3); Phosphorus 2.4 mg/dL (2.5-4.5); Potassium 3.8 mmol/L (3.5-5.1); Sodium 139 mmol/L (137-145)
[2017-04-13] MEDS: methylPREDNISolone SOD SUCCI 125 MG/2 ML VIAL IV SCH ×3 (05:00→17:27)
[2017-04-13] MEDS ORDERED: POTASSIUM CHLORIDE ER 20 MEQ TAB.ER PO SCH (06:00)
[2017-04-13 06:47] LABS: Mycoplasma IgM Antibody 0.58 INDEX (<=0.90)
--- NOTE | 2017-04-13 07:18 | XR ---
EXAMINATION TYPE: XR chest 1V DATE OF EXAM: 04/13/2017 COMPARISON: 04/10/2017 HISTORY: Shortness of breath TECHNIQUE: Single frontal view of the chest is obtained. FINDINGS: Similar to the prior there are low lung volumes accentuating the diffuse reticular interst itial pattern with interlobular septal thickening. Additionally there is new obscuration of the costo phrenic angles and more confluent opacities in the bibasilar regions partially obscuring the hemidiap hragm. Left PICC is redemonstrated terminating in the superior vena cava/right atrial junction. Cardi ac silhouette is mildly enlarged. Osseous structures appear intact. IMPRESSION: Unchanged diffuse interstitial pattern that could relate to pulmonary edema or atypical pneumonitis. Underlying interstitial lung disease is also possible given this patient's history of sa rcoidosis.
[2017-04-13] MEDS: BUDESONIDE 1 MG/2 ML NEBU INHALATION SCH ×2 (07:31→19:26)
[2017-04-13] MEDS: IPRATROPIUM-ALBUTEROL 3 ML NEB INHALATION SCH ×4 (07:31→19:26)
[2017-04-13] MEDS: FORMOTEROL FUMARATE 20 MCG/2 ML NEBU INHALATION SCH ×2 (07:31→19:26)
[2017-04-13 07:34] LABS: Glucose,Whole Blood 159 mg/dL (75-99)
[2017-04-13] MEDS: ENOXAPARIN 80 MG/0.8 ML SYRINGE SQ SCH ×2 (08:42→20:08)
[2017-04-13] MEDS: BUMETANIDE 1 MG TAB PO SCH ×2 (08:42→20:08)
[2017-04-13] MEDS: LEVOFLOXACIN 500 MG TAB PO SCH (08:43)
[2017-04-13] MEDS: PANTOPRAZOLE 40 MG TABLET PO SCH (08:43)
[2017-04-13] MEDS: lamoTRIgine 100 MG TAB PO SCH (08:43)
[2017-04-13] MEDS: FLUoxetine HCL 20 MG CAP PO SCH (08:43)
[2017-04-13] MEDS: METOPROLOL TARTRATE 50 MG TAB PO SCH ×2 (08:44→20:09)
[2017-04-13] MEDS: ALPRAZolam 0.5 MG TAB PO SCH ×2 (08:51→20:06)
[2017-04-13] MEDS: INSULIN ASPART 100 UNIT/ML 1 ML 10 ML VIAL SQ SCH ×4 (08:51→20:47)
[2017-04-13] MEDS: PREGABALIN 100 MG CAP PO SCH ×2 (08:51→20:47)
[2017-04-13] MEDS: PIPERACILLIN-TAZOBACTAM 3.375 GM in DEXTROSE/WATER 1 50ML.BAG IVPB SCH ×2 (09:04→16:40)
[2017-04-13] MEDS: guaiFENesin-DM 100-10MG/5ML 10 ML CUP PO PRN (09:58)
[2017-04-13 11:36] LABS: Glucose,Whole Blood 142 mg/dL (75-99)
[2017-04-13] MEDS: HYDROmorphone 2 MG/ML 1 ML SYRINGE IVP PRN ×3 (12:17→20:05)
--- NOTE | 2017-04-13 12:22 | P.PN ---
Subjective Progress Note Date: 04/13/17 Principal diagnosis: Acute hypoxic respiratory failure secondary to community-acquired pneumonia and sarcoidosis. History of present illness: Meme is a 46-year-old white female patient who follows with ABHISHEK Thornton, presented to the emergency department on 04/10/2017 at 1600 with complaints of increasing shortness of breath, right-sided chest wall pain, hypoxia, with O2 sat going down as low as 76% on room air, productive cough with dark brown sputum, fever at home of 103F. She states she is been sick on and off this winter, was recently hospitalized in March for an acute COPD exacerbation, with acute on chronic hypoxic respiratory failure, and we had seen her in consult on 03/18/2017. However the patient signed out AMA the following day, and did not follow-up with any pulmonary doctors after that. Most recently her PCP treated her with a round of oral Levaquin which she completed 2 weeks ago. Patient has chronic hypoxic respiratory failure, due to history of COPD and sarcoidosis, which was confirmed by lung biopsy at [facility] and the patient is on maintenance dose prednisone 50 mg daily. She also has morbid obesity with features of obstructive sleep apnea, however this has not been officially confirmed. Other medical history includes bronchial asthma, pulmonary embolisms, DVTs, heart failure, hypertension, MRSA pneumonia. She is an ex-smoker, she states she quit smoking 6 months ago, however prior to that she she smoked for over 20 years. She states she has had multiple hospitalizations for her chronic pulmonary problems, and has been intubated and placed on mechanical ventilation multiple times, most of those times at [facility]. She is on Coumadin for her history of PEs and DVTs. Chest x -ray taken on 04/10/2017 shows fine reticular pattern of increased density throughout the lungs, prominence of the pulmonary vasculature, there is partial confluence of density in the right lower lung zone. This was followed up by chest CTA which showed no evidence of pulmonary embolism, but there were scattered areas of pneumonitis, suggestive of pulmonary fibrosis within the right lower lobe, right middle lobe, bilateral upper lobe areas. This was suggestive of pulmonary fibrosis, or atypical pulmonary edema. Doppler ultrasound of the bilateral lower legs was negative for DVTs. Patient is on her home dose of Coumadin, however her INR is subtherapeutic at 1.1 on admission. Lab work showed WBC of 11.9, hemoglobin of 14, serum sodium was 137 , potassium is 4.6, B1 was 9, creatinine of 0.51. Cardiac enzymes and troponins were negative 1, influenza screen was negative. Upon my evaluation this morning, patient is obviously cyanotic, mildly short of breath, but still talking on the phone to one of her family members. On 3 L per nasal cannula, her O2 sat was only 84%. She was placed on high flow nasal cannula, blood gas was done and it showed pO2 of 63, pCO2 of 36, pH of 7.46 this was done on 55% FiO2. FiO2 will be titrated up to keep O2 sat at 92% or better. Patient was reevaluated today on 04/12/2017, she was transferred to the ICU yesterday after I evaluated the patient, placed on a high flow nasal cannula, and placed on antibiotics, bronchodilators, steroids, however the patient does not seem to be making much improvement. She is a bit worse clinically, and her chest x-ray is showing worsening interstitial infiltrates bilaterally. Patient will be given a dose of Lasix 40 mg IV push, I have switched her from a nasal cannula to airvo2 with 50 L/m flow and 70% FiO2. Her O2 saturations are now in the mid 90s. Patient will likely benefit from bronchoscopy, however my main concern that the patient is borderline, she will need to be intubated in order to perform a safe bronchoscopy. She was certainly desaturated during bronchoscopy, and she would have to be intubated. This will be decided upon hopefully in the next 24 hours depending on her overall response to treatment. In the meantime I have recommended infectious disease consultation with Dr. Lott. My only concern is the fact that the patient is not covered for PCP, patient is relatively immunocompromised, she has been on prednisone at 60 mg orally for quite some time given to her by her primary care physician for presumptive sarcoidosis. This diagnosis was supposedly made at [facility] when the patient underwent lung biopsy. Patient always had a picture of interstitial lung disease, felt to be at one point to be respiratory bronchiolitis associated interstitial lung disease. But since the biopsy was done at [facility], it was proven to be sarcoidosis. CBC today showed WBC count of 13.2 hemoglobin 12.7. Electrolytes and renal profile are normal. Reevaluated today on 04/13/2017,patient remains in the ICU, remains on a high flow oxygen, and high FiO2. Saturation is in the 90s, however the patient desaturates easily with any movement. Her chest x-ray continues to show worsening interstitial infiltrates bilaterally,CBC is relatively normal with WBC count of 12.7. Electrolytes and renal profile are normal. Patient does not seem to be making much improvement with antibiotics and steroids and diuretics.patient remains nothing by mouth this morning, hence I have discussed with her and with her at bedside that it would be best to at least attempt to get a diagnosis by bronchoscopy and BAL. In the meantime we'll plan to continue antibiotics, and Dr. Lott did not feel that there is a need for a change at this point, but I will recommend sending the BAL specimen for PCP evaluation.considering the patient is not making much improvement, and that's more of a reason to go ahead and proceed with bronchoscopy and BAL today. Patient understood very well that she may end up requiring to be placed on mechanical ventilation if she desaturates significantly during the procedure. Objective - Vital Signs Vital signs: Vital Signs Temp 98.6 F 04/13/17 08:00 Pulse 80 04/13/17 11:33 Resp 76 H 04/13/17 10:00 BP 107/62 04/13/17 10:00 Pulse Ox 94 L 04/13/17 10:00 Intake & Output 04/12/17 04/13/17 04/13/17 18:59 06:59 18:59 Intake Total 740.0 310.0 110 Output Total 3200 1140 305 Balance -2460 -830.0 -195 Weight 115.4 kg Intake: IV 620.0 310.0 110 Levaquin 150 Piperacillin-Tazobactam 3 50.0 50.0 50 .375 gm In Dextrose/Water 1 50ml.bag @ 12.5 mls/hr IVPB Q8HR AGNIESZKA Rx#: [id number] Sodium Chloride 0.9% 1, 420 20 000 ml @ 120 mls/hr IV . Q8H20M AGNIESZKA Rx#:[id number] Sodium Chloride 0.9% 1, 240 60 000 ml @ 20 mls/hr IV . Q24H AGNIESZKA Rx#:[id number] Oral 120 Output: Urine 3200 1140 305 Other: Voiding Method Bedside Commode Indwelling Catheter Indwelling Catheter Bedpan - Exam GENERAL EXAM: Alert, pleasant, 46-year-old white female, obese, obviously slightly anxious, presently on 50 L/m flow and FiO2 of 70%. HEAD: Normocephalic/atraumatic. EYES: Normal reaction of pupils, equal size. Conjunctiva pink, sclera white. NOSE: Clear with pink turbinates. THROAT: No erythema or exudates. NECK: No masses, no JVD, no thyroid enlargement, no adenopathy. CHEST: No chest wall deformity. Symmetrical expansion. LUNGS: Equal air entry with diffuse wheezing throughout the lung diana, patient has congested productive cough CVS: Regular rate and rhythm, normal S1 and S2, no gallops, no murmurs, no rubs ABDOMEN: Soft, nontender. No hepatosplenomegaly, normal bowel sounds, no guarding or rigidity. EXTREMITIES: No clubbing, no edema, no cyanosis, 2+ pulses and upper and lower extremities. MUSCULOSKELETAL: Muscle strength and tone normal. SPINE: No scoliosis or deformity SKIN: No rashes CENTRAL NERVOUS SYSTEM: Alert and oriented -3. No focal deficits, tone is normal in all 4 extremities. PSYCHIATRIC: Alert and oriented -3. Appropriate affect. Intact judgment and insight. - Labs CBC & Chem 7: 04/13/17 03:55 04/13/17 03:55 Labs: Abnormal Lab Results - Last 24 Hours (Table) 04/12/17 04/12/17 04/13/17 Range/Units 17:07 20:20 03:55 WBC 12.7 H (3.8-10.6) k/uL Neutrophils # 10.8 H (1.3-7.7) k/uL PT (9.0-12.0) sec INR (<1.2) Carbon Dioxide (22-30) mmol/L Glucose (74-99) mg/dL POC Glucose (mg/dL) 130 H 149 H (75-99) mg/dL Calcium (8.4-10.2) mg/dL Phosphorus (2.5-4.5) mg/dL 04/13/17 04/13/17 04/13/17 Range/Units 03:55 03:55 07:14 WBC (3.8-10.6) k/uL Neutrophils # (1.3-7.7) k/uL PT 13.3 H (9.0-12.0) sec INR 1.4 H (<1.2) Carbon Dioxide 33 H (22-30) mmol/L Glucose 164 H (74-99) mg/dL POC Glucose (mg/dL) 159 H (75-99) mg/dL Calcium 8.0 L (8.4-10.2) mg/dL Phosphorus 2.4 L (2.5-4.5) mg/dL 04/13/17 Range/Units 11:34 WBC (3.8-10.6) k/uL Neutrophils # (1.3-7.7) k/uL PT (9.0-12.0) sec INR (<1.2) Carbon Dioxide (22-30) mmol/L Glucose (74-99) mg/dL POC Glucose (mg/dL) 142 H (75-99) mg/dL Calcium (8.4-10.2) mg/dL Phosphorus (2.5-4.5) mg/dL Microbiology - Last 24 Hours (Table) 04/12/17 06:00 Gram Stain - Preliminary Sputum Assessment and Plan Assessment: #1. Acute on chronic hypoxic respiratory failure, multifactorial, COPD exacerbation, sarcoidosis, pulmonary fibrosis, strongly suspect underlying pneumonitis, likely community-acquired.. Patient presented with a febrile illness, chest congestion, wheezing, production of thick brown sputum, right chest wall pain, hypoxia O2 sat 84% on 3 L per nasal cannula. CTA chest from shows extensive honeycombing type pneumonitis, suggestive of pulmonary fibrosis, within the right lower lobe, right middle lobe, and bilateral upper lobe areas. No evidence of PEs noted. #2. Recent hospitalization for COPD exacerbation in March 2017, patient signed out AMA, did not receive full course of treatment #3. Recent pneumonia, treated with a round of oral Levaquin, completed the course 2 weeks ago #4. Sarcoidosis, was confirmed by lung biopsy at [facility] in 2014, currently on maintenance dose of prednisone of 50 mg daily #5. History of pulmonary embolisms in 2011 and 2016, DVTs, currently on anticoagulation with Coumadin, however the levels are subtherapeutic on admission, INR is 1.1, question medical compliance. Had previously tried Xarelto, developed reaction to it, Pradaxa was not covered on her insurance plan #6. Nicotine addiction, currently in remission, carries over [id number] smoking history #7. Obesity with features of obstructive sleep apnea, although this has not been officially confirmed #8. Anxiety #9. Coronary artery disease, history of myocardial infarction #10. History of MRSA pneumonia #11. Recurrent hospitalizations and intubations for respiratory complications #12. Bipolar disorder #13. Degenerative disc disease #14. Hypertension #15. Hyperlipidemia #16. Fibromyalgia Recommendation: Continue antibiotics, continue steroids, continue diuretics, will arrange for bronchoscopy and BAL today. Hopefully will be able to make a diagnosis/specific diagnosis. At this point the patient is definitely at high risk for possible worsening respiratory failure during the procedure ended requiring intubation and mechanical ventilation. She is very well aware of the possibilities. We'll arrange for bronchoscopy and BAL today. Discussed with her the treatment plan options and also discussed with her . Prognosis is definitely guarded. Critical care time is 35 minutes excluding time spent on procedures. Time with Patient: Greater than 30
[2017-04-13] MEDS ORDERED: POTASSIUM PHOSPHATE 10 MMOL in SODIUM CHLORIDE 0.9% 100 ML IV ONE (13:31)
[2017-04-13] MEDS ORDERED: Phosphorus Replacement Protoco 1 EACH MISC MISCELLANE PRN (13:31)
[2017-04-13] MEDS ORDERED: PROPOFOL 10 MG/ML 20 ML VIAL IV ONE (13:35)
[2017-04-13] MEDS ORDERED: GLYCOPYRROLATE 0.2 MG/ML 2 ML VIAL ONE (13:35)
[2017-04-13] MEDS ORDERED: KETAMINE 10 MG/ML 20 ML VIAL ONE (13:35)
[2017-04-13] MEDS ORDERED: LIDOCAINE 2% INJ 20 MG/ML INTRATRACH ONE (13:46)
[2017-04-13] MEDS: ONDANSETRON 4 MG TAB PO PRN (14:52)
[2017-04-13 17:27] LABS: Glucose,Whole Blood 166 mg/dL (75-99)
[2017-04-13] MEDS: WARFARIN 2 MG TAB PO SCH (17:27)
[2017-04-13] MEDS: WARFARIN 5 MG TAB PO SCH (17:27)
[2017-04-13 17:33] LABS: Appearance,BF Cloudy; Color,BF Colorless; Nucleated Cells, Body Fluid 400 /uL
[2017-04-13 17:34] LABS: RBC, Body Fluid 940 /uL
[2017-04-13 17:35] LABS: Mononuclear WBC,Body Fluid 100 %; Total Cells Counted,Body Fluid 100
--- NOTE | 2017-04-13 17:59 | OP ---
OPERATIVE REPORT PROCEDURE: Bronchoscopy, bronchoalveolar lavage of the right middle lobe and right lower lobe. PREOPERATIVE DIAGNOSIS: Acute hypoxic respiratory failure and bilateral interstitial infiltrates, pneumonia. POSTOPERATIVE DIAGNOSIS: Acute hypoxic respiratory failure and bilateral interstitial infiltrates, pneumonia. ANESTHESIA: Patient was given IV conscious sedation. Please refer to HEAD OF GEOGRAPHY documentation. DESCRIPTION OF PROCEDURE: Patient was prepared according to the bronchoscopy protocol. Oxygen was applied via high-flow Airvo 2, and the patient was placed in supine position. We monitored her oxygen saturation continuously. Blood pressure was intermittently monitored and cardiac rhythm was continuously monitored. After adequate IV conscious sedation, a bite block was placed, and the bronchoscope was advanced through the bite block down to the area of the vocal cords. The vocal cords were noted to be patent. Minimal polyp-like lesions were noted at the posterior aspect of the vocal cords. Pictures were taken. Lidocaine was applied over the vocal cords, and the bronchoscope was advanced further down to the area of the trachea. Examination was done of the trachea, julianne, right upper lobe, right middle lobe, right lower lobe, left upper lobe and lingula as well as left lower lobe. There were minimal purulent secretions noted in the bases of her lungs bilaterally. However, I was able to do a bronchoalveolar lavage from the right middle lobe and the right lower lobe. The lavage fluid was sent for different diagnostic studies. Procedure was well tolerated. No evidence of any immediate complications. Oxygen saturations remained in the low 90s throughout the whole procedure. Eventually the patient will need referral to ENT for full evaluation of the vocal cords on an outpatient basis. MMODL / IJN: [id number] /
[2017-04-13] MEDS: MONTELUKAST 10 MG TAB PO SCH (20:09)
[2017-04-13] MEDS: MIRTAZAPINE 45 MG TABLET PO SCH (20:10)
[2017-04-13 20:17] LABS: Glucose,Whole Blood 178 mg/dL (75-99)
--- NOTE | 2017-04-13 22:05 | PN ---
PROGRESS NOTE SUBJECTIVE: A 46-year-old white female with acute respiratory failure secondary to acute pneumonia and sarcoidosis. She is not getting better. She has increasing shortness of breath; oxygen saturations go down to 76% in room air. T-max is 101. At home it was 103. Failed outpatient treatment. She has been admitted. She is not getting better. She is going to have bronchoscopy today per Pulmonology. CARDIOVASCULAR: S1, S2. LUNGS: Scattered rhonchi and wheeze. HEMATOLOGIC: Negative Homans. PSYCH: Fair mood and affect. NEUROLOGIC: Alert orient x3. ASSESSMENT: 1. bronchitis. 2. Acute respiratory distress secondary to sarcoidosis. 3. Chronic obstructive pulmonary disease. 4. Possible pneumonia. 5. History of pulmonary embolism. 6. Nicotine addiction. 7. Obstructive sleep apnea. 8. Anxiety. 9. Coronary artery disease. 10.History of methicillin-resistant Staphylococcus aeruginosa. 11.History of bipolar. 12.Degenerative disc disease. 13.Hypertension. 14.Dyslipidemia. 15.Acute on chronic hypoxemic respiratory failure. Continue current treatment. Await bronchoscopy. Continue IV steroids, IV antibiotics, updraft treatments. MMODL / IJN: [id number] /
--- NOTE | 2017-04-13 22:15 | P.PN ---
Subjective Progress Note Date: 04/13/17 Principal diagnosis: Respiratory failure 46-year-old female who is known to infectious disease service from prior hospitalization a few years ago. At that point in time she had pneumonia responded well to interventions. She has a known history of sarcoidosis diagnosed in 2014. She's been doing modestly well on her high-dose of steroid to 50 mg a day. At this time she is relating that she feels very poorly. She' s had progressive shortness of breath. She has cough or sputum production which is thin in nature. No hemoptysis. She has had progressively worsening shortness of breath over the last couple of days. She relates over the last 3 months there has been a decline of her status. But about a day before coming to hospitals when she noticed a marked change of her status. She was short of breath with all activities and started to feel like she was being smothered and was having some discomfort in her chest also. Eventually presented to the emergency center where she is on evidence of hypoxia because he has been admitted. She's been seen by pulmonary critical care and with lack of improvement has now undergone bronchoscopy for multiple specimens. This will help evaluate for underlying viral pneumonia as well as pneumocystis. Objective - Vital Signs Vital signs: Vital Signs Temp 98.4 F 04/13/17 20:00 Pulse 79 04/13/17 22:00 Resp 24 04/13/17 22:00 BP 118/62 04/13/17 22:00 Pulse Ox 97 04/13/17 22:00 Intake & Output 04/13/17 04/13/17 04/14/17 06:59 18:59 06:59 Intake Total 310.0 270 60 Output Total 1140 1405 170 Balance -830.0 -1135 -110 Weight 115.4 kg Intake: IV 310.0 270 60 Piperacillin-Tazobactam 3 50.0 50 .375 gm In Dextrose/Water 1 50ml.bag @ 12.5 mls/hr IVPB Q8HR [facility] Rx#: [id number] Sodium Chloride 0.9% 1, 20 60 000 ml @ 120 mls/hr IV . Q8H20M [facility] Rx#:[id number] Sodium Chloride 0.9% 1, 240 60 000 ml @ 20 mls/hr IV . Q24H [facility] Rx#:[id number] Sodium Chloride 0.9% 1, 100 60 000 ml @ 20 mls/hr IV . Q24H [facility] Rx#:[id number] Output: Urine 1140 1405 170 Other: Voiding Method Indwelling Catheter Indwelling Catheter Indwelling Catheter # Bowel Movements 1 - Exam 46-year-old woman who looks older than her stated age is quite short of breath. His uncomfortable because she is so short of breath. Does have cough without significant sputum production HEENT: Anicteric conjunctiva are pink and moist nasal mucosa grossly intact without significant lesions, there is no thrush. Edentulous Neck: The neck is supple without significant lymphadenopathy or thyromegaly. Lungs: They're symmetrical air entry however there are coarse crackles at the bases expiratory wheezes are heard no dullness or egophony Heart: Irregular with an audible S1 and S2 soft S4. There is no significant murmur click or rub, PMI was nondisplaced. Abdomen: Obese, Positive bowel sounds soft and nontender without palpable masses or organomegaly. There was no guarding or rebound. Extremities: The upper extremities have excellent pulses they are symmetric, no significant petechiae or telangiectasia. No splinter hemorrhages were noted. The lower extremity is evidence of trace pedal edema, peripheral pulses are 2+ and symmetric. Skin he has no sick an open lesions or rashes Neuro: Awake alert oriented to person place and time. There are no acute new gross focal sensory motor deficits. Patient is very anxious. - Labs CBC & Chem 7: 04/13/17 03:55 04/13/17 03:55 Labs: Abnormal Lab Results - Last 24 Hours (Table) 04/13/17 04/13/17 04/13/17 Range/Units 03:55 03:55 03:55 WBC 12.7 H (3.8-10.6) k/uL Neutrophils # 10.8 H (1.3-7.7) k/uL PT 13.3 H (9.0-12.0) sec INR 1.4 H (<1.2) Carbon Dioxide 33 H (22-30) mmol/L Glucose 164 H (74-99) mg/dL POC Glucose (mg/dL) (75-99) mg/dL Calcium 8.0 L (8.4-10.2) mg/dL Phosphorus 2.4 L (2.5-4.5) mg/dL 04/13/17 04/13/17 04/13/17 Range/Units 07:14 11:34 17:26 WBC (3.8-10.6) k/uL Neutrophils # (1.3-7.7) k/uL PT (9.0-12.0) sec INR (<1.2) Carbon Dioxide (22-30) mmol/L Glucose (74-99) mg/dL POC Glucose (mg/dL) 159 H 142 H 166 H (75-99) mg/dL Calcium (8.4-10.2) mg/dL Phosphorus (2.5-4.5) mg/dL 04/13/17 Range/Units 20:13 WBC (3.8-10.6) k/uL Neutrophils # (1.3-7.7) k/uL PT (9.0-12.0) sec INR (<1.2) Carbon Dioxide (22-30) mmol/L Glucose (74-99) mg/dL POC Glucose (mg/dL) 178 H (75-99) mg/dL Calcium (8.4-10.2) mg/dL Phosphorus (2.5-4.5) mg/dL Microbiology - Last 24 Hours (Table) 04/12/17 06:00 Gram Stain - Preliminary Sputum Laboratory Results WBC 12.7 k/uL (3.8-10.6) H 04/13/17 03:55 RBC 4.16 m/uL (3.80-5.40) 04/13/17 03:55 Hgb 13.1 gm/dL (11.4-16.0) 04/13/17 03:55 Hct 39.7 % (34.0-46.0) 04/13/17 03:55 MCV 95.3 fL (80.0-100.0) 04/13/17 03:55 MCH 31.5 pg (25.0-35.0) 04/13/17 03:55 MCHC 33.0 g/dL (31.0-37.0) 04/13/17 03:55 RDW 14.0 % (11.5-15.5) 04/13/17 03:55 Plt Count 260 k/uL (150-450) 04/13/17 03:55 Neutrophils % 85 % 04/13/17 03:55 Lymphocytes % 8 % 04/13/17 03:55 Monocytes % 5 % 04/13/17 03:55 Eosinophils % 0 % 04/13/17 03:55 Basophils % 0 % 04/13/17 03:55 Neutrophils # 10.8 k/uL (1.3-7.7) H 04/13/17 03:55 Lymphocytes # 1.0 k/uL (1.0-4.8) 04/13/17 03:55 Monocytes # 0.6 k/uL (0-1.0) 04/13/17 03:55 Eosinophils # 0.1 k/uL (0-0.7) 04/13/17 03:55 Basophils # 0.0 k/uL (0-0.2) 04/13/17 03:55 Macrocytosis Slight 04/12/17 04:55 PT 13.3 sec (9.0-12.0) H 04/13/17 03:55 INR 1.4 (<1.2) H 04/13/17 03:55 APTT 20.6 sec (22.0-30.0) L 04/10/17 16:35 Sample Site LRA 04/11/17 10:18 ABG pH 7.46 (7.35-7.45) H 04/11/17 10:18 ABG pCO2 36 mmHg (35-45) 04/11/17 10:18 ABG pO2 63 mmHg (83-108) L 04/11/17 10:18 ABG HCO3 25 mmol/L (21-25) 04/11/17 10:18 ABG Total CO2 26 mmol/L (19-24) H 04/11/17 10:18 ABG O2 Saturation 93.3 % (94-97) L 04/11/17 10:18 ABG Base Excess 1.7 mmol/L 04/11/17 10:18 Yohan Test Yes 04/11/17 10:18 FiO2 55 % 04/11/17 10:18 Sodium 139 mmol/L (137-145) 04/13/17 03:55 Potassium 3.8 mmol/L (3.5-5.1) 04/13/17 03:55 Chloride 98 mmol/L (98-107) 04/13/17 03:55 Carbon Dioxide 33 mmol/L (22-30) H 04/13/17 03:55 Anion Gap 8 mmol/L 04/13/17 03:55 BUN 14 mg/dL (7-17) 04/13/17 03:55 Creatinine 0.60 mg/dL (0.52-1.04) 04/13/17 03:55 Est GFR (MDRD) Af Amer >60 (>60 ml/min/1.73 sqM) 04/13/17 03:55 Est GFR (MDRD) Non-Af >60 (>60 ml/min/1.73 sqM) 04/13/17 03:55 Glucose 164 mg/dL (74-99) H 04/13/17 03:55 POC Glucose (mg/dL) 178 mg/dL (75-99) H 04/13/17 20:13 POC Glu Transverse Abdominal Muscle Surgeon ID Pao Kramer 04/13/17 20:[address] Glu mg/dL 105 04/10/17 16:35 Hemoglobin A1c 5.3 % (4.0-6.0) 04/10/17 16:35 Calcium 8.0 mg/dL (8.4-10.2) L 04/13/17 03:55 Phosphorus 2.4 mg/dL (2.5-4.5) L 04/13/17 03:55 Magnesium 2.1 mg/dL (1.6-2.3) 04/13/17 03:55 Total Bilirubin 0.7 mg/dL (0.2-1.3) 04/10/17 16:35 AST 42 U/L (14-36) H 04/10/17 16:35 ALT 33 U/L (9-52) 04/10/17 16:35 Alkaline Phosphatase 60 U/L (38-126) 04/10/17 16:35 Total Creatine Kinase 70 U/L (30-135) 04/10/17 16:35 CK-MB (CK-2) 0.8 ng/mL (0.0-2.4) 04/10/17 16:35 CK-MB (CK-2) Rel Index 1.1 04/10/17 16:35 Troponin I <0.012 ng/mL (0.000-0.034) 04/10/17 16:35 Total Protein 6.8 g/dL (6.3-8.2) 04/10/17 16:35 Albumin 3.7 g/dL (3.5-5.0) 04/10/17 16:35 Urine Color Yellow 04/10/17 16:35 Urine Appearance Cloudy (Clear) H 04/10/17 16:35 Urine pH 6.5 (5.0-8.0) 04/10/17 16:35 Ur Specific [place] 1.030 (1.001-1.035) 04/10/17 16:35 Urine Protein Trace (Negative) H 04/10/17 16:35 Urine Glucose (UA) 1+ (Negative) H 04/10/17 16:35 Urine Ketones Negative (Negative) 04/10/17 16:35 Urine Blood Negative (Negative) 04/10/17 16:35 Urine Nitrite Negative (Negative) 04/10/17 16:35 Urine Bilirubin Negative (Negative) 04/10/17 16:35 Urine Urobilinogen <2.0 mg/dL (<2.0) 04/10/17 16:35 Ur Leukocyte Esterase Negative (Negative) 04/10/17 16:35 Urine RBC 1 /hpf (0-5) 04/10/17 16:35 Urine WBC 2 /hpf (0-5) 04/10/17 16:35 Ur Squamous Epith Cells 10 /hpf (0-4) H 04/10/17 16:35 Hyaline Casts 1 /lpf (0-2) 04/10/17 16:35 Urine Mucus Rare /hpf (None) H 04/10/17 16:35 Fluid Source Bronchial Wash 04/13/17 13:48 Fluid Color Colorless 04/13/17 13:48 Fluid Appearance Cloudy 04/13/17 13:48 Fluid RBC 940 /uL 04/13/17 13:48 Fluid Nucleated Cells 400 /uL 04/13/17 13:48 Fluid Mononuclear WBCs 100 % 04/13/17 13:48 Influenza Type A RNA Not Detected (Not Detectd) 04/10/17 23:00 Influenza Type B (PCR) Not Detected (Not Detectd) 04/10/17 23:00 Mycoplasma pneumon IgG 0.62 INDEX (<=0.90) 04/12/17 04:55 Mycoplasma pneumon IgM 0.58 INDEX (<=0.90) 04/12/17 04:55 Microbiology 04/12/17 06:00 Sputum Gram Stain - Preliminary 04/10/17 16:35 Urine,Voided Urine Culture - Final Assessment and Plan (1) Multifocal pneumonia Narrative/Plan: 46-year-old female presents to Hospital feeling very poorly over just about a days timeframe. Was having some decline over status of the last 3 months. Was hospitalized in March did leave AMA. She now is profoundly short of breath feeling very poorly. She has significant wheezing cough that has been persistent. Some sputum production is occurring. No hemoptysis. She' s been seen by the business development representative and his contemplation for bronchoscopy. I believe this would be helpful to diagnose pneumocystis if it is occurring and also a deep specimen can be obtained for comprehensive viral studies given the current multiple viruses circulate in the community causing significant pulmonary disease. Is receiving the ICU protocol of piperacillin tazobactam and Levaquin. If there is any worsening of her status would then add intravenous Bactrim. This should give us coverage for pneumocystis as well as for the possibility of MRSA given that there seems to be a remote history although we have no positive cultures for MRSA to her multiple recent hospitalizations. Her prognosis is somewhat poor given her progressive pulmonary disease, her inability to stop smoking and her obesity. As noted pulmonary has performed bronchoscopy. Hopefully these deep specimens will help differentiate virus from pneumocystis versus other gram-negative pathogens of pneumonia in this high risk patient. Current Visit: Yes Status: Acute Code(s): J18.9 - PNEUMONIA, UNSPECIFIED ORGANISM SNOMED Code(s): 576616409 (2) Sarcoidosis Current Visit: No Status: Acute Code(s): D86.9 - SARCOIDOSIS, UNSPECIFIED SNOMED Code(s): 05319031 (3) COPD (chronic obstructive pulmonary disease) Current Visit: Yes Status: Acute Code(s): J44.9 - CHRONIC OBSTRUCTIVE PULMONARY DISEASE, UNSPECIFIED SNOMED Code(s): 68938705
[2017-04-14] MEDS: HYDROmorphone 2 MG/ML 1 ML SYRINGE IVP PRN ×8 (00:06→22:06)
[2017-04-14] MEDS: methylPREDNISolone SOD SUCCI 125 MG/2 ML VIAL IV SCH ×4 (00:06→17:28)
[2017-04-14] MEDS: PIPERACILLIN-TAZOBACTAM 3.375 GM in DEXTROSE/WATER 1 50ML.BAG IVPB SCH ×3 (00:06→16:58)
[2017-04-14 04:53] LABS: Basophils % (A) 0 %; Eosinophils # (A) 0.1 k/uL (0-0.7); Eosinophils % (A) 1 %; HCT 39.9 % (34.0-46.0); HGB 13.2 gm/dL (11.4-16.0); Lymphocytes # (A) 0.8 k/uL (1.0-4.8); Lymphocytes % (A) 7 %; MCHC 33.1 g/dL (31.0-37.0); MCV 96.5 fL (80.0-100.0); Mean Platelet Volume 6.9; Monocytes # (A) 0.7 k/uL (0-1.0); Monocytes % (A) 6 %; Neutrophils # (A) 9.3 k/uL (1.3-7.7); Neutrophils % (A) 85 %; Platelet Count 249 k/uL (150-450); RBC 4.14 m/uL (3.80-5.40); RDW 13.9 % (11.5-15.5)
[2017-04-14 04:58] LABS: INR 1.7 (<1.2); Prothrombin Time 15.9 sec (9.0-12.0)
[2017-04-14 05:13] LABS: Anion Gap 5 mmol/L; Blood Urea Nitrogen 15 mg/dL (7-17); Calcium 8.3 mg/dL (8.4-10.2); Carbon Dioxide 37 mmol/L (22-30); Chloride 97 mmol/L (98-107); Glucose 158 mg/dL (74-99); Magnesium 2.2 mg/dL (1.6-2.3); Phosphorus 2.8 mg/dL (2.5-4.5); Potassium 3.9 mmol/L (3.5-5.1); Sodium 139 mmol/L (137-145)
[2017-04-14] MEDS: ALPRAZolam 0.5 MG TAB PO SCH ×2 (05:17→20:45)
[2017-04-14] MEDS: guaiFENesin-DM 100-10MG/5ML 10 ML CUP PO PRN ×3 (05:17→22:05)
[2017-04-14] MEDS ORDERED: POTASSIUM CHLORIDE ER 20 MEQ TAB.ER PO SCH (06:00)
--- NOTE | 2017-04-14 06:34 | XR ---
EXAMINATION TYPE: XR chest 1V DATE OF EXAM: 04/14/2017 HISTORY: shortness of breath. REFERENCE: Previous study dated 04/13/2017. FINDINGS: Heart size is upper limits of normal. There is vascular congestion and pulmonary edema. The overall appearance has improved slightly. IMPRESSION: SLIGHT IMPROVEMENT IN THE DEGREE OF CONGESTIVE HEART FAILURE.
[2017-04-14 07:10] LABS: Glucose,Whole Blood 216 mg/dL (75-99)
[2017-04-14] MEDS: BUDESONIDE 1 MG/2 ML NEBU INHALATION SCH ×2 (07:18→19:18)
[2017-04-14] MEDS: IPRATROPIUM-ALBUTEROL 3 ML NEB INHALATION SCH ×4 (07:19→19:20)
[2017-04-14] MEDS: FORMOTEROL FUMARATE 20 MCG/2 ML NEBU INHALATION SCH ×2 (07:19→19:18)
[2017-04-14 07:29] LABS: Glucose,Whole Blood 208 mg/dL (75-99)
[2017-04-14] MEDS: lamoTRIgine 100 MG TAB PO SCH (08:11)
[2017-04-14] MEDS: BUMETANIDE 1 MG TAB PO SCH ×2 (08:12→20:33)
[2017-04-14] MEDS: FLUoxetine HCL 20 MG CAP PO SCH (08:12)
[2017-04-14] MEDS: METOPROLOL TARTRATE 50 MG TAB PO SCH ×2 (08:12→20:33)
[2017-04-14] MEDS: ENOXAPARIN 80 MG/0.8 ML SYRINGE SQ SCH ×2 (08:12→20:33)
[2017-04-14] MEDS: LEVOFLOXACIN 500 MG TAB PO SCH (08:12)
[2017-04-14] MEDS: POTASSIUM CHLORIDE ER 20 MEQ TAB.ER PO SCH (08:12)
[2017-04-14] MEDS: PANTOPRAZOLE 40 MG TABLET PO SCH (08:12)
[2017-04-14] MEDS: INSULIN ASPART 100 UNIT/ML 1 ML 10 ML VIAL SQ SCH ×4 (08:12→20:45)
[2017-04-14] MEDS: PREGABALIN 100 MG CAP PO SCH ×2 (08:17→20:45)
[2017-04-14] MEDS: LORazepam 2 MG/ML INJ IV PRN ×2 (09:58→22:56)
--- NOTE | 2017-04-14 10:39 | P.PN ---
Subjective Progress Note Date: 04/14/17 Principal diagnosis: Acute hypoxic respiratory failure secondary to community-acquired pneumonia and sarcoidosis. History of present illness: Meme is a 46-year-old white female patient who follows with ABHISHEK Thornton, presented to the emergency department on 04/10/2017 at 1600 with complaints of increasing shortness of breath, right-sided chest wall pain, hypoxia, with O2 sat going down as low as 76% on room air, productive cough with dark brown sputum, fever at home of 103F. She states she is been sick on and off this winter, was recently hospitalized in March for an acute COPD exacerbation, with acute on chronic hypoxic respiratory failure, and we had seen her in consult on 03/18/2017. However the patient signed out AMA the following day, and did not follow-up with any pulmonary doctors after that. Most recently her PCP treated her with a round of oral Levaquin which she completed 2 weeks ago. Patient has chronic hypoxic respiratory failure, due to history of COPD and sarcoidosis, which was confirmed by lung biopsy at [facility] and the patient is on maintenance dose prednisone 50 mg daily. She also has morbid obesity with features of obstructive sleep apnea, however this has not been officially confirmed. Other medical history includes bronchial asthma, pulmonary embolisms, DVTs, heart failure, hypertension, MRSA pneumonia. She is an ex-smoker, she states she quit smoking 6 months ago, however prior to that she she smoked for over 20 years. She states she has had multiple hospitalizations for her chronic pulmonary problems, and has been intubated and placed on mechanical ventilation multiple times, most of those times at [facility]. She is on Coumadin for her history of PEs and DVTs. Chest x -ray taken on 04/10/2017 shows fine reticular pattern of increased density throughout the lungs, prominence of the pulmonary vasculature, there is partial confluence of density in the right lower lung zone. This was followed up by chest CTA which showed no evidence of pulmonary embolism, but there were scattered areas of pneumonitis, suggestive of pulmonary fibrosis within the right lower lobe, right middle lobe, bilateral upper lobe areas. This was suggestive of pulmonary fibrosis, or atypical pulmonary edema. Doppler ultrasound of the bilateral lower legs was negative for DVTs. Patient is on her home dose of Coumadin, however her INR is subtherapeutic at 1.1 on admission. Lab work showed WBC of 11.9, hemoglobin of 14, serum sodium was 137 , potassium is 4.6, B1 was 9, creatinine of 0.51. Cardiac enzymes and troponins were negative 1, influenza screen was negative. Upon my evaluation this morning, patient is obviously cyanotic, mildly short of breath, but still talking on the phone to one of her family members. On 3 L per nasal cannula, her O2 sat was only 84%. She was placed on high flow nasal cannula, blood gas was done and it showed pO2 of 63, pCO2 of 36, pH of 7.46 this was done on 55% FiO2. FiO2 will be titrated up to keep O2 sat at 92% or better. Patient was reevaluated today on 04/12/2017, she was transferred to the ICU yesterday after I evaluated the patient, placed on a high flow nasal cannula, and placed on antibiotics, bronchodilators, steroids, however the patient does not seem to be making much improvement. She is a bit worse clinically, and her chest x-ray is showing worsening interstitial infiltrates bilaterally. Patient will be given a dose of Lasix 40 mg IV push, I have switched her from a nasal cannula to airvo2 with 50 L/m flow and 70% FiO2. Her O2 saturations are now in the mid 90s. Patient will likely benefit from bronchoscopy, however my main concern that the patient is borderline, she will need to be intubated in order to perform a safe bronchoscopy. She was certainly desaturated during bronchoscopy, and she would have to be intubated. This will be decided upon hopefully in the next 24 hours depending on her overall response to treatment. In the meantime I have recommended infectious disease consultation with Dr. Lott. My only concern is the fact that the patient is not covered for PCP, patient is relatively immunocompromised, she has been on prednisone at 60 mg orally for quite some time given to her by her primary care physician for presumptive sarcoidosis. This diagnosis was supposedly made at [facility] when the patient underwent lung biopsy. Patient always had a picture of interstitial lung disease, felt to be at one point to be respiratory bronchiolitis associated interstitial lung disease. But since the biopsy was done at [facility], it was proven to be sarcoidosis. CBC today showed WBC count of 13.2 hemoglobin 12.7. Electrolytes and renal profile are normal. Reevaluated today on 04/13/2017,patient remains in the ICU, remains on a high flow oxygen, and high FiO2. Saturation is in the 90s, however the patient desaturates easily with any movement. Her chest x-ray continues to show worsening interstitial infiltrates bilaterally,CBC is relatively normal with WBC count of 12.7. Electrolytes and renal profile are normal. Patient does not seem to be making much improvement with antibiotics and steroids and diuretics.patient remains nothing by mouth this morning, hence I have discussed with her and with her at bedside that it would be best to at least attempt to get a diagnosis by bronchoscopy and BAL. In the meantime we'll plan to continue antibiotics, and Dr. Lott did not feel that there is a need for a change at this point, but I will recommend sending the BAL specimen for PCP evaluation.considering the patient is not making much improvement, and that's more of a reason to go ahead and proceed with bronchoscopy and BAL today. Patient understood very well that she may end up requiring to be placed on mechanical ventilation if she desaturates significantly during the procedure. Reevaluated today on 04/14/2017, remains on high flow and high FiO2, however patient is feeling much better today compared to the last couple of days. We are able to titrate down the FiO2 and titrate down the flow. Presently on 50% FiO2 and 50 L/m flow using Airvo2. Her O2 saturation is in the high 90s, and pulse is 76. Blood pressure is stable. CBC is relatively normal. Basic metabolic profile is normal. Bicarb is 37. Chest x-ray is showing slight improvement in her bilateral interstitial infiltrates. Bronchoscopy specimen is still pending so far nothing diagnostic. Objective - Vital Signs Vital signs: Vital Signs Temp 98.1 F 04/14/17 04:00 Pulse 76 04/14/17 07:48 Resp 23 04/14/17 07:00 BP 107/50 04/14/17 07:00 Pulse Ox 98 04/14/17 07:00 Intake & Output 04/13/17 04/14/17 04/14/17 18:59 06:59 18:59 Intake Total 270 310.0 Output Total 1405 1375 Balance -1135 -1065.0 Weight 114.9 kg Intake: IV 270 310.0 Piperacillin-Tazobactam 3 50 50.0 .375 gm In Dextrose/Water 1 50ml.bag @ 12.5 mls/hr IVPB Q8HR [facility] Rx#: [id number] Sodium Chloride 0.9% 1, 60 000 ml @ 120 mls/hr IV . Q8H20M [facility] Rx#:[id number] Sodium Chloride 0.9% 1, 60 000 ml @ 20 mls/hr IV . Q24H [facility] Rx#:[id number] Sodium Chloride 0.9% 1, 100 260 000 ml @ 20 mls/hr IV . Q24H [facility] Rx#:[id number] Output: Urine 1405 1375 Other: Voiding Method Indwelling Catheter Indwelling Catheter # Bowel Movements 1 - Exam GENERAL EXAM: Alert, pleasant, 46-year-old white female, obese, obviously less anxious, presently on 50 L/m flow and FiO2 of 50% %. HEAD: Normocephalic/atraumatic. EYES: Normal reaction of pupils, equal size. Conjunctiva pink, sclera white. NOSE: Clear with pink turbinates. THROAT: No erythema or exudates. NECK: No masses, no JVD, no thyroid enlargement, no adenopathy. CHEST: No chest wall deformity. Symmetrical expansion. LUNGS: Equal air entry with diffuse wheezing throughout the lung diana, patient has congested productive cough CVS: Regular rate and rhythm, normal S1 and S2, no gallops, no murmurs, no rubs ABDOMEN: Soft, nontender. No hepatosplenomegaly, normal bowel sounds, no guarding or rigidity. EXTREMITIES: No clubbing, no edema, no cyanosis, 2+ pulses and upper and lower extremities. MUSCULOSKELETAL: Muscle strength and tone normal. SPINE: No scoliosis or deformity SKIN: No rashes CENTRAL NERVOUS SYSTEM: Alert and oriented -3. No focal deficits, tone is normal in all 4 extremities. PSYCHIATRIC: Alert and oriented -3. Appropriate affect. Intact judgment and insight. - Labs CBC & Chem 7: 04/14/17 04:20 04/14/17 04:20 Labs: Abnormal Lab Results - Last 24 Hours (Table) 04/13/17 04/13/17 04/13/17 Range/Units 11:34 17:26 20:13 WBC (3.8-10.6) k/uL Neutrophils # (1.3-7.7) k/uL Lymphocytes # (1.0-4.8) k/uL PT (9.0-12.0) sec INR (<1.2) Chloride (98-107) mmol/L Carbon Dioxide (22-30) mmol/L Glucose (74-99) mg/dL POC Glucose (mg/dL) 142 H 166 H 178 H (75-99) mg/dL Calcium (8.4-10.2) mg/dL 04/14/17 04/14/17 04/14/17 Range/Units 04:20 04:20 04:20 WBC 11.0 H (3.8-10.6) k/uL Neutrophils # 9.3 H (1.3-7.7) k/uL Lymphocytes # 0.8 L (1.0-4.8) k/uL PT 15.9 H (9.0-12.0) sec INR 1.7 H (<1.2) Chloride 97 L (98-107) mmol/L Carbon Dioxide 37 H (22-30) mmol/L Glucose 158 H (74-99) mg/dL POC Glucose (mg/dL) (75-99) mg/dL Calcium 8.3 L (8.4-10.2) mg/dL 04/14/17 04/14/17 Range/Units 07:08 07:28 WBC (3.8-10.6) k/uL Neutrophils # (1.3-7.7) k/uL Lymphocytes # (1.0-4.8) k/uL PT (9.0-12.0) sec INR (<1.2) Chloride (98-107) mmol/L Carbon Dioxide (22-30) mmol/L Glucose (74-99) mg/dL POC Glucose (mg/dL) 216 H 208 H (75-99) mg/dL Calcium (8.4-10.2) mg/dL Microbiology - Last 24 Hours (Table) 04/12/17 06:00 Gram Stain - Preliminary Sputum Sputum Culture - Preliminary Presumptive Staph aureus Lou albicans 04/13/17 13:48 Gram Stain - Preliminary Bronchial Washings - Right Bronchial Washings Culture - Preliminary 04/13/17 13:48 Acid Fast Bacilli Culture - Preliminary Bronchial Washings - Right 04/13/17 13:48 Fungal Culture - Preliminary Bronchial Washings - Right Assessment and Plan Assessment: #1. Acute on chronic hypoxic respiratory failure, multifactorial, COPD exacerbation, sarcoidosis, pulmonary fibrosis, strongly suspect underlying pneumonitis, likely community-acquired.. Patient presented with a febrile illness, chest congestion, wheezing, production of thick brown sputum, right chest wall pain, hypoxia O2 sat 84% on 3 L per nasal cannula. CTA chest from shows extensive honeycombing type pneumonitis, suggestive of pulmonary fibrosis, within the right lower lobe, right middle lobe, and bilateral upper lobe areas. No evidence of PEs noted. #2. Recent hospitalization for COPD exacerbation in March 2017, patient signed out AMA, did not receive full course of treatment #3. Recent pneumonia, treated with a round of oral Levaquin, completed the course 2 weeks ago #4. Sarcoidosis, was confirmed by lung biopsy at [facility] in 2014, currently on maintenance dose of prednisone of 50 mg daily #5. History of pulmonary embolisms in 2011 and 2015, DVTs, currently on anticoagulation with Coumadin, however the levels are subtherapeutic on admission, INR is 1.1, question medical compliance. Had previously tried Xarelto, developed reaction to it, Pradaxa was not covered on her insurance plan #6. Nicotine addiction, currently in remission, carries over [id number] smoking history #7. Obesity with features of obstructive sleep apnea, although this has not been officially confirmed #8. Anxiety #9. Coronary artery disease, history of myocardial infarction #10. History of MRSA pneumonia #11. Recurrent hospitalizations and intubations for respiratory complications #12. Bipolar disorder #13. Degenerative disc disease #14. Hypertension #15. Hyperlipidemia #16. Fibromyalgia #17 status post bronchoscopy and BAL of the right middle lobe and right lower lobe done on 04/13/2017. Results of which are pending. Recommendation: Continue antibiotics, continue steroids, continue diuretics, await bronchoalveolar lavage findings and microbiology from the BAL. In the meantime considering the patient is improving clinically, and her chest x-ray showing improvement, will continue present treatment plan and supportive care measures. We will keep in the ICU for the next 24 hours. Time with Patient: Greater than 30
[2017-04-14 11:53] LABS: Glucose,Whole Blood 176 mg/dL (75-99)
--- NOTE | 2017-04-14 12:12 | PN ---
PROGRESS NOTE SUBJECTIVE: A 46-year-old white female admitted with community-acquired pneumonia, sarcoidosis, status post bronchoscopy. She states she is feeling better. Breathing is better today. She is up in ICU. Her influenza screen is negative. She is on oxygen per nasal cannula at this time. Her oxygen levels in the 90s. Pulse is in the 70s. Blood pressure is stable. CBC, chem panel, labs are essentially normal. Chest x-ray is improving infiltrates. Awaiting bronchoscopy results. LUNGS: Scattered rhonchi and wheeze. CARDIOVASCULAR: S1, S2. PSYCH: A little anxious and nervous still. ENDOCRINE: BMI is over 40. Temp 98, pulse 70s, respirations 20 to 23, blood pressure 107/50, O2 saturation 98. White count 11, hemoglobin 13.2, BUN 15, creatinine 0.60. ASSESSMENT: 1. Acute on chronic hypoxemic respiratory failure secondary to sarcoidosis, chronic obstructive pulmonary disease, pulmonary fibrosis and pneumonitis, community- acquired. Await bronchoscopy results. 2. History of sarcoid. 3. History of pulmonary embolism. 4. Nicotine addiction. 5. Obesity. 6. Anxiety. 7. History of methicillin-resistant Staphylococcus aureus. 8. Bipolar. 9. Degenerative disc disease. 10.Hypertension. 11.Dyslipidemia. Await bronchoscopy results. Continue with IV steroids, updrafts, and antibiotics. MMODL / IJN: [id number] /
[2017-04-14] MEDS ORDERED: VANCOMYCIN IV PER PHARMACY 1 EACH MISC MISCELLANE PRN (12:22)
[2017-04-14] MEDS ORDERED: VANCOMYCIN 2,000 MG in SODIUM CHLORIDE 0.9% 500 ML IVPB ONE (12:30)
[2017-04-14] MEDS: diphenhydrAMINE 50 MG/ML 1 ML VIAL IVP PRN ×2 (13:50→22:06)
[2017-04-14] MEDS: SODIUM CHLORIDE 0.9% 1,000 ML IV SCH (16:56)
[2017-04-14] MEDS: CHLORPHEN-HYDROcod 8-10mg/5ml 5 ML ORAL.SYRG PO SCH (16:56)
[2017-04-14 17:16] LABS: Glucose,Whole Blood 151 mg/dL (75-99)
[2017-04-14] MEDS: WARFARIN 2 MG TAB PO SCH (17:30)
[2017-04-14] MEDS: WARFARIN 5 MG TAB PO SCH (17:30)
[2017-04-14 20:23] LABS: Glucose,Whole Blood 142 mg/dL (75-99)
[2017-04-14] MEDS: MIRTAZAPINE 45 MG TABLET PO SCH (20:33)
[2017-04-14] MEDS: MONTELUKAST 10 MG TAB PO SCH (20:33)
--- NOTE | 2017-04-14 20:52 | P.PN ---
Subjective Progress Note Date: 04/14/17 Principal diagnosis: Respiratory failure 46-year-old female who is known to infectious disease service from prior hospitalization a few years ago. At that point in time she had pneumonia responded well to interventions. She has a known history of sarcoidosis diagnosed in 2014. She's been doing modestly well on her high-dose of steroid to 50 mg a day. At this time she is relating that she feels very poorly. She' s had progressive shortness of breath. She has cough or sputum production which is thin in nature. No hemoptysis. She has had progressively worsening shortness of breath over the last couple of days. She relates over the last 3 months there has been a decline of her status. But about a day before coming to hospitals when she noticed a marked change of her status. She was short of breath with all activities and started to feel like she was being smothered and was having some discomfort in her chest also. Eventually presented to the emergency center where she is on evidence of hypoxia because he has been admitted. She's been seen by pulmonary critical care and with lack of improvement has now undergone bronchoscopy with multiple specimens. This will help evaluate for underlying viral pneumonia as well as pneumocystis. Patient is improved today. Her high flow oxygen has been reduced from 85-50%. She's feeling considerably better but still somewhat short of breath. Still having some right-sided pleuritic chest pain other than this feels better than yesterday. Denies further fevers or chills. Objective - Vital Signs Vital signs: Vital Signs Temp 98.4 F 04/14/17 16:00 Pulse 87 04/14/17 20:00 Resp 22 04/14/17 20:00 BP 142/72 04/14/17 20:00 Pulse Ox 94 L 04/14/17 20:00 Intake & Output 04/14/17 04/14/17 04/15/17 06:59 18:59 06:59 Intake Total 310.0 661 20 Output Total 1375 1940 165 Balance -1065.0 -1279 -145 Weight 114.9 kg Intake: IV 310.0 661 20 Piperacillin-Tazobactam 3 50.0 .375 gm In Dextrose/Water 1 50ml.bag @ 12.5 mls/hr IVPB [facility] Rx#: [id number] Sodium Chloride 0.9% 1, 260 160 20 000 ml @ 20 mls/hr IV . Q24H [facility] Rx#:[id number] Vancomycin 2,000 mg In 501 Sodium Chloride 0.9% 500 ml @ 167 mls/hr IVPB ONCE ONE Rx#:[id number] Output: Urine 1375 1940 165 Other: Voiding Method Indwelling Catheter Indwelling Catheter # Bowel Movements 1 - Exam 46-year-old woman who looks older than her stated age is quite short of breath. His uncomfortable because she is so short of breath. Does have cough without significant sputum production HEENT: Anicteric conjunctiva are pink and moist nasal mucosa grossly intact without significant lesions, there is no thrush. Edentulous Neck: The neck is supple without significant lymphadenopathy or thyromegaly. Lungs: They're symmetrical air entry however there are coarse crackles at the bases expiratory wheezes are heard no dullness or egophony Heart: Irregular with an audible S1 and S2 soft S4. There is no significant murmur click or rub, PMI was nondisplaced. Abdomen: Obese, Positive bowel sounds soft and nontender without palpable masses or organomegaly. There was no guarding or rebound. Extremities: The upper extremities have excellent pulses they are symmetric, no significant petechiae or telangiectasia. No splinter hemorrhages were noted. The lower extremity is evidence of trace pedal edema, peripheral pulses are 2+ and symmetric. Skin he has no sick an open lesions or rashes Neuro: Awake alert oriented to person place and time. There are no acute new gross focal sensory motor deficits. Patient is very anxious. - Labs CBC & Chem 7: 04/14/17 04:20 04/14/17 04:20 Labs: Abnormal Lab Results - Last 24 Hours (Table) 04/14/17 04/14/17 04/14/17 Range/Units 04:20 04:20 04:20 WBC 11.0 H (3.8-10.6) k/uL Neutrophils # 9.3 H (1.3-7.7) k/uL Lymphocytes # 0.8 L (1.0-4.8) k/uL PT 15.9 H (9.0-12.0) sec INR 1.7 H (<1.2) Chloride 97 L (98-107) mmol/L Carbon Dioxide 37 H (22-30) mmol/L Glucose 158 H (74-99) mg/dL POC Glucose (mg/dL) (75-99) mg/dL Calcium 8.3 L (8.4-10.2) mg/dL 04/14/17 04/14/17 04/14/17 Range/Units 07:08 07:28 11:51 WBC (3.8-10.6) k/uL Neutrophils # (1.3-7.7) k/uL Lymphocytes # (1.0-4.8) k/uL PT (9.0-12.0) sec INR (<1.2) Chloride (98-107) mmol/L Carbon Dioxide (22-30) mmol/L Glucose (74-99) mg/dL POC Glucose (mg/dL) 216 H 208 H 176 H (75-99) mg/dL Calcium (8.4-10.2) mg/dL 04/14/17 04/14/17 Range/Units 17:14 20:21 WBC (3.8-10.6) k/uL Neutrophils # (1.3-7.7) k/uL Lymphocytes # (1.0-4.8) k/uL PT (9.0-12.0) sec INR (<1.2) Chloride (98-107) mmol/L Carbon Dioxide (22-30) mmol/L Glucose (74-99) mg/dL POC Glucose (mg/dL) 151 H 142 H (75-99) mg/dL Calcium (8.4-10.2) mg/dL Microbiology - Last 24 Hours (Table) 04/13/17 13:48 Acid Fast Bacilli Smear - Final Bronchial Washings - Right Acid Fast Bacilli Culture - Preliminary 04/12/17 06:00 Gram Stain - Preliminary Sputum Sputum Culture - Preliminary Presumptive Staph aureus Lou albicans 04/13/17 13:48 Gram Stain - Preliminary Bronchial Washings - Right Bronchial Washings Culture - Preliminary 04/13/17 13:48 Fungal Culture - Preliminary Bronchial Washings - Right Laboratory Results WBC 11.0 k/uL (3.8-10.6) H 04/14/17 04:20 RBC 4.14 m/uL (3.80-5.40) 04/14/17 04:20 Hgb 13.2 gm/dL (11.4-16.0) 04/14/17 04:20 Hct 39.9 % (34.0-46.0) 04/14/17 04:20 MCV 96.5 fL (80.0-100.0) 04/14/17 04:20 MCH 32.0 pg (25.0-35.0) 04/14/17 04:20 MCHC 33.1 g/dL (31.0-37.0) 04/14/17 04:20 RDW 13.9 % (11.5-15.5) 04/14/17 04:20 Plt Count 249 k/uL (150-450) 04/14/17 04:20 Neutrophils % 85 % 04/14/17 04:20 Lymphocytes % 7 % 04/14/17 04:20 Monocytes % 6 % 04/14/17 04:20 Eosinophils % 1 % 04/14/17 04:20 Basophils % 0 % 04/14/17 04:20 Neutrophils # 9.3 k/uL (1.3-7.7) H 04/14/17 04:20 Lymphocytes # 0.8 k/uL (1.0-4.8) L 04/14/17 04:20 Monocytes # 0.7 k/uL (0-1.0) 04/14/17 04:20 Eosinophils # 0.1 k/uL (0-0.7) 04/14/17 04:20 Basophils # 0.0 k/uL (0-0.2) 04/14/17 04:20 Macrocytosis Slight 04/12/17 04:55 PT 15.9 sec (9.0-12.0) H 04/14/17 04:20 INR 1.7 (<1.2) H 04/14/17 04:20 APTT 20.6 sec (22.0-30.0) L 04/10/17 16:35 Sample Site LRA 04/11/17 10:18 ABG pH 7.46 (7.35-7.45) H 04/11/17 10:18 ABG pCO2 36 mmHg (35-45) 04/11/17 10:18 ABG pO2 63 mmHg (83-108) L 04/11/17 10:18 ABG HCO3 25 mmol/L (21-25) 04/11/17 10:18 ABG Total CO2 26 mmol/L (19-24) H 04/11/17 10:18 ABG O2 Saturation 93.3 % (94-97) L 04/11/17 10:18 ABG Base Excess 1.7 mmol/L 04/11/17 10:18 Yohan Test Yes 04/11/17 10:18 FiO2 55 % 04/11/17 10:18 Sodium 139 mmol/L (137-145) 04/14/17 04:20 Potassium 3.9 mmol/L (3.5-5.1) 04/14/17 04:20 Chloride 97 mmol/L (98-107) L 04/14/17 04:20 Carbon Dioxide 37 mmol/L (22-30) H 04/14/17 04:20 Anion Gap 5 mmol/L 04/14/17 04:20 BUN 15 mg/dL (7-17) 04/14/17 04:20 Creatinine 0.60 mg/dL (0.52-1.04) 04/14/17 04:20 Est GFR (MDRD) Af Amer >60 (>60 ml/min/1.73 sqM) 04/14/17 04:20 Est GFR (MDRD) Non-Af >60 (>60 ml/min/1.73 sqM) 04/14/17 04:20 Glucose 158 mg/dL (74-99) H 04/14/17 04:20 POC Glucose (mg/dL) 142 mg/dL (75-99) H 04/14/17 20:21 POC Glu Local Announcer [place] 04/14/17 20:[address] Glu mg/dL 105 04/10/17 16:35 Hemoglobin A1c 5.3 % (4.0-6.0) 04/10/17 16:35 Calcium 8.3 mg/dL (8.4-10.2) L 04/14/17 04:20 Phosphorus 2.8 mg/dL (2.5-4.5) 04/14/17 04:20 Magnesium 2.2 mg/dL (1.6-2.3) 04/14/17 04:20 Total Bilirubin 0.7 mg/dL (0.2-1.3) 04/10/17 16:35 AST 42 U/L (14-36) H 04/10/17 16:35 ALT 33 U/L (9-52) 04/10/17 16:35 Alkaline Phosphatase 60 U/L (38-126) 04/10/17 16:35 Total Creatine Kinase 70 U/L (30-135) 04/10/17 16:35 CK-MB (CK-2) 0.8 ng/mL (0.0-2.4) 04/10/17 16:35 CK-MB (CK-2) Rel Index 1.1 04/10/17 16:35 Troponin I <0.012 ng/mL (0.000-0.034) 04/10/17 16:35 Total Protein 6.8 g/dL (6.3-8.2) 04/10/17 16:35 Albumin 3.7 g/dL (3.5-5.0) 04/10/17 16:35 Urine Color Yellow 04/10/17 16:35 Urine Appearance Cloudy (Clear) H 04/10/17 16:35 Urine pH 6.5 (5.0-8.0) 04/10/17 16:35 Ur Specific [place] 1.030 (1.001-1.035) 04/10/17 16:35 Urine Protein Trace (Negative) H 04/10/17 16:35 Urine Glucose (UA) 1+ (Negative) H 04/10/17 16:35 Urine Ketones Negative (Negative) 04/10/17 16:35 Urine Blood Negative (Negative) 04/10/17 16:35 Urine Nitrite Negative (Negative) 04/10/17 16:35 Urine Bilirubin Negative (Negative) 04/10/17 16:35 Urine Urobilinogen <2.0 mg/dL (<2.0) 04/10/17 16:35 Ur Leukocyte Esterase Negative (Negative) 04/10/17 16:35 Urine RBC 1 /hpf (0-5) 04/10/17 16:35 Urine WBC 2 /hpf (0-5) 04/10/17 16:35 Ur Squamous Epith Cells 10 /hpf (0-4) H 04/10/17 16:35 Hyaline Casts 1 /lpf (0-2) 04/10/17 16:35 Urine Mucus Rare /hpf (None) H 04/10/17 16:35 Fluid Source Bronchial Wash 04/13/17 13:48 Fluid Color Colorless 04/13/17 13:48 Fluid Appearance Cloudy 04/13/17 13:48 Fluid RBC 940 /uL 04/13/17 13:48 Fluid Nucleated Cells 400 /uL 04/13/17 13:48 Fluid Mononuclear WBCs 100 % 04/13/17 13:48 Influenza Type A RNA Not Detected (Not Detectd) 04/10/17 23:00 Influenza Type B (PCR) Not Detected (Not Detectd) 04/10/17 23:00 Mycoplasma pneumon IgG 0.62 INDEX (<=0.90) 04/12/17 04:55 Mycoplasma pneumon IgM 0.58 INDEX (<=0.90) 04/12/17 04:55 Virus Source See Below 04/13/17 13:48 Viral Test See Below 04/13/17 13:48 Virus Analysis Interp See Below 04/13/17 13:48 Microbiology 04/13/17 13:48 Bronchial Washings - Right Acid Fast Bacilli Smear - Final 04/13/17 13:48 Bronchial Washings - Right Acid Fast Bacilli Culture - Preliminary 04/12/17 06:00 Sputum Gram Stain - Preliminary 04/12/17 06:00 Sputum Sputum Culture - Preliminary Presumptive Staph aureus Lou albicans 04/13/17 13:48 Bronchial Washings - Right Gram Stain - Preliminary 04/13/17 13:48 Bronchial Washings - Right Bronchial Washings Culture - Preliminary 04/13/17 13:48 Bronchial Washings - Right Fungal Culture - Preliminary 04/10/17 16:35 Urine,Voided Urine Culture - Final Assessment and Plan (1) Multifocal pneumonia Narrative/Plan: 46-year-old female presents to Hospital feeling very poorly over just about a days timeframe. Was having some decline over status of the last 3 months. Was hospitalized in March did [facility]. She now is profoundly short of breath feeling very poorly. She has significant wheezing cough that has been persistent. Some sputum production is occurring. No hemoptysis. She' s been seen by the learning center instructor and his contemplation for bronchoscopy. I believe this would be helpful to diagnose pneumocystis if it is occurring and also a deep specimen can be obtained for comprehensive viral studies given the current multiple viruses circulate in the community causing significant pulmonary disease. Is receiving the ICU protocol of piperacillin tazobactam and Levaquin. If there is any worsening of her status would then add intravenous Bactrim. This should give us coverage for pneumocystis as well as for the possibility of MRSA given that there seems to be a remote history although we have no positive cultures for MRSA to her multiple recent hospitalizations. Her prognosis is somewhat poor given her progressive pulmonary disease, her inability to stop smoking and her obesity. As noted pulmonary has performed bronchoscopy. Hopefully these deep specimens will help differentiate virus from pneumocystis versus other gram-negative pathogens of pneumonia in this high risk patient. Laboratories have been reviewed. And although the lab is showing evidence of grams he is gram-negative bacilli the cultures are now showing evidence of staph aureus and have not yet demonstrated this is MRSA. With this new finding antibiotic therapy is further altered and vancomycin is added to her other pathogen antibiotic therapy. Fortunate she is showing marked improvement. Await results from the bronchoscopy to further tailor antimicrobial therapy. Current Visit: Yes Status: Acute Code(s): J18.9 - PNEUMONIA, UNSPECIFIED ORGANISM SNOMED Code(s): 871099134 (2) Sarcoidosis Current Visit: No Status: Acute Code(s): D86.9 - SARCOIDOSIS, UNSPECIFIED SNOMED Code(s): 97290038 (3) COPD (chronic obstructive pulmonary disease) Current Visit: Yes Status: Acute Code(s): J44.9 - CHRONIC OBSTRUCTIVE PULMONARY DISEASE, UNSPECIFIED SNOMED Code(s): 20408814
[2017-04-14] MEDS: VANCOMYCIN 1,500 MG in SODIUM CHLORIDE 0.9% 250 ML IVPB SCH (22:06)
[2017-04-15] MEDS: methylPREDNISolone SOD SUCCI 125 MG/2 ML VIAL IV SCH ×4 (00:49→17:19)
[2017-04-15] MEDS: PIPERACILLIN-TAZOBACTAM 3.375 GM in DEXTROSE/WATER 1 50ML.BAG IVPB SCH ×3 (00:49→17:24)
[2017-04-15] MEDS: HYDROmorphone 2 MG/ML 1 ML SYRINGE IVP PRN ×10 (01:26→21:59)
[2017-04-15] MEDS: CHLORPHEN-HYDROcod 8-10mg/5ml 5 ML ORAL.SYRG PO SCH ×2 (04:15→17:34)
[2017-04-15] MEDS: VANCOMYCIN 1,500 MG in SODIUM CHLORIDE 0.9% 250 ML IVPB SCH ×2 (05:33→13:12)
[2017-04-15] MEDS: diphenhydrAMINE 50 MG/ML 1 ML VIAL IVP PRN ×3 (05:45→21:54)
[2017-04-15 05:56] LABS: HCT 40.8 % (34.0-46.0); HGB 13.6 gm/dL (11.4-16.0); MCH 32.4 pg (25.0-35.0); MCHC 33.5 g/dL (31.0-37.0); MCV 96.9 fL (80.0-100.0); Platelet Count 274 k/uL (150-450); RBC 4.21 m/uL (3.80-5.40); RDW 13.6 % (11.5-15.5); WBC 11.8 k/uL (3.8-10.6)
[2017-04-15 06:21] LABS: ALT 37 U/L (9-52); AST 26 U/L (14-36); Albumin 3.1 g/dL (3.5-5.0); Alkaline Phosphatase 63 U/L (38-126); Anion Gap 6 mmol/L; Blood Urea Nitrogen 16 mg/dL (7-17); Calcium 8.4 mg/dL (8.4-10.2); Carbon Dioxide 36 mmol/L (22-30); Chloride 97 mmol/L (98-107); Glucose 131 mg/dL (74-99); Magnesium 2.3 mg/dL (1.6-2.3); Phosphorus 2.5 mg/dL (2.5-4.5); Potassium 3.9 mmol/L (3.5-5.1); Sodium 139 mmol/L (137-145); Total Bilirubin 0.5 mg/dL (0.2-1.3); Total Protein 5.8 g/dL (6.3-8.2)
[2017-04-15] MEDS: guaiFENesin-DM 100-10MG/5ML 10 ML CUP PO PRN (06:39)
--- NOTE | 2017-04-15 06:55 | XR ---
EXAMINATION TYPE: XR chest 1V DATE OF EXAM: 04/15/2017 HISTORY: shortness of breath. REFERENCE: Previous study dated 04/14/2017. FINDINGS: Heart size is upper limits of normal. There continues be vascular congestion. Interstitial change has improved. There continue to be small, bilateral effusions. IMPRESSION: IMPROVING CHANGES OF PULMONARY EDEMA.
[2017-04-15] MEDS: BUDESONIDE 1 MG/2 ML NEBU INHALATION SCH ×2 (07:05→19:04)
[2017-04-15] MEDS: FORMOTEROL FUMARATE 20 MCG/2 ML NEBU INHALATION SCH ×2 (07:05→19:04)
[2017-04-15] MEDS: IPRATROPIUM-ALBUTEROL 3 ML NEB INHALATION SCH ×4 (07:05→19:05)
[2017-04-15 07:26] LABS: Band Neutrophils % 11 %; Eosinophils # (M) 0.12 k/uL (0-0.7); Lymphocytes # (M) 2.48 k/uL (1.0-4.8); Monocytes # (M) 1.06 k/uL (0-1.0); Neutrophils % (M) 58 %; Nucleated Red Blood Cells 0 /100 WBC (0-0); Polychromasia Present; Total Cells Counted 100
[2017-04-15 07:27] LABS: Anisocytosis (M) Present
[2017-04-15 07:29] LABS: Glucose,Whole Blood 156 mg/dL (75-99)
[2017-04-15] MEDS: PANTOPRAZOLE 40 MG TABLET PO SCH (07:45)
[2017-04-15] MEDS: POTASSIUM CHLORIDE ER 20 MEQ TAB.ER PO SCH (08:20)
[2017-04-15] MEDS: lamoTRIgine 100 MG TAB PO SCH (08:20)
[2017-04-15] MEDS: LEVOFLOXACIN 500 MG TAB PO SCH (08:21)
[2017-04-15] MEDS: FLUoxetine HCL 20 MG CAP PO SCH (08:21)
[2017-04-15] MEDS: BUMETANIDE 1 MG TAB PO SCH ×2 (08:21→20:42)
[2017-04-15] MEDS: METOPROLOL TARTRATE 50 MG TAB PO SCH ×2 (08:21→20:42)
[2017-04-15] MEDS: INSULIN ASPART 100 UNIT/ML 1 ML 10 ML VIAL SQ SCH ×4 (08:25→21:00)
[2017-04-15] MEDS: ALPRAZolam 0.5 MG TAB PO SCH ×2 (08:25→20:40)
[2017-04-15 09:02] LABS: INR 1.9 (<1.2); Prothrombin Time 17.3 sec (9.0-12.0)
[2017-04-15] MEDS: ENOXAPARIN 80 MG/0.8 ML SYRINGE SQ SCH ×2 (10:43→21:53)
[2017-04-15] MEDS: PREGABALIN 100 MG CAP PO SCH ×2 (10:45→21:00)
--- NOTE | 2017-04-15 11:18 | P.PN ---
Subjective Progress Note Date: 04/15/17 Principal diagnosis: Acute hypoxic respiratory failure secondary to community-acquired pneumonia and sarcoidosis. History of present illness: Meme is a 46-year-old white female patient who follows with ABHISHEK Thornton, presented to the emergency department on 04/10/2017 at 1600 with complaints of increasing shortness of breath, right-sided chest wall pain, hypoxia, with O2 sat going down as low as 76% on room air, productive cough with dark brown sputum, fever at home of 103F. She states she is been sick on and off this winter, was recently hospitalized in March for an acute COPD exacerbation, with acute on chronic hypoxic respiratory failure, and we had seen her in consult on 03/18/2017. However the patient signed out AMA the following day, and did not follow-up with any pulmonary doctors after that. Most recently her PCP treated her with a round of oral Levaquin which she completed 2 weeks ago. Patient has chronic hypoxic respiratory failure, due to history of COPD and sarcoidosis, which was confirmed by lung biopsy at [facility] and the patient is on maintenance dose prednisone 50 mg daily. She also has morbid obesity with features of obstructive sleep apnea, however this has not been officially confirmed. Other medical history includes bronchial asthma, pulmonary embolisms, DVTs, heart failure, hypertension, MRSA pneumonia. She is an ex-smoker, she states she quit smoking 6 months ago, however prior to that she she smoked for over 20 years. She states she has had multiple hospitalizations for her chronic pulmonary problems, and has been intubated and placed on mechanical ventilation multiple times, most of those times at [facility]. She is on Coumadin for her history of PEs and DVTs. Chest x -ray taken on 04/10/2017 shows fine reticular pattern of increased density throughout the lungs, prominence of the pulmonary vasculature, there is partial confluence of density in the right lower lung zone. This was followed up by chest CTA which showed no evidence of pulmonary embolism, but there were scattered areas of pneumonitis, suggestive of pulmonary fibrosis within the right lower lobe, right middle lobe, bilateral upper lobe areas. This was suggestive of pulmonary fibrosis, or atypical pulmonary edema. Doppler ultrasound of the bilateral lower legs was negative for DVTs. Patient is on her home dose of Coumadin, however her INR is subtherapeutic at 1.1 on admission. Lab work showed WBC of 11.9, hemoglobin of 14, serum sodium was 137 , potassium is 4.6, B1 was 9, creatinine of 0.51. Cardiac enzymes and troponins were negative 1, influenza screen was negative. Upon my evaluation this morning, patient is obviously cyanotic, mildly short of breath, but still talking on the phone to one of her family members. On 3 L per nasal cannula, her O2 sat was only 84%. She was placed on high flow nasal cannula, blood gas was done and it showed pO2 of 63, pCO2 of 36, pH of 7.46 this was done on 55% FiO2. FiO2 will be titrated up to keep O2 sat at 92% or better. Patient was reevaluated today on 04/12/2017, she was transferred to the ICU yesterday after I evaluated the patient, placed on a high flow nasal cannula, and placed on antibiotics, bronchodilators, steroids, however the patient does not seem to be making much improvement. She is a bit worse clinically, and her chest x-ray is showing worsening interstitial infiltrates bilaterally. Patient will be given a dose of Lasix 40 mg IV push, I have switched her from a nasal cannula to airvo2 with 50 L/m flow and 70% FiO2. Her O2 saturations are now in the mid 90s. Patient will likely benefit from bronchoscopy, however my main concern that the patient is borderline, she will need to be intubated in order to perform a safe bronchoscopy. She was certainly desaturated during bronchoscopy, and she would have to be intubated. This will be decided upon hopefully in the next 24 hours depending on her overall response to treatment. In the meantime I have recommended infectious disease consultation with Dr. Lott. My only concern is the fact that the patient is not covered for PCP, patient is relatively immunocompromised, she has been on prednisone at 60 mg orally for quite some time given to her by her primary care physician for presumptive sarcoidosis. This diagnosis was supposedly made at [facility] when the patient underwent lung biopsy. Patient always had a picture of interstitial lung disease, felt to be at one point to be respiratory bronchiolitis associated interstitial lung disease. But since the biopsy was done at [facility], it was proven to be sarcoidosis. CBC today showed WBC count of 13.2 hemoglobin 12.7. Electrolytes and renal profile are normal. Reevaluated today on 04/13/2017,patient remains in the ICU, remains on a high flow oxygen, and high FiO2. Saturation is in the 90s, however the patient desaturates easily with any movement. Her chest x-ray continues to show worsening interstitial infiltrates bilaterally,CBC is relatively normal with WBC count of 12.7. Electrolytes and renal profile are normal. Patient does not seem to be making much improvement with antibiotics and steroids and diuretics.patient remains nothing by mouth this morning, hence I have discussed with her and with her at bedside that it would be best to at least attempt to get a diagnosis by bronchoscopy and BAL. In the meantime we'll plan to continue antibiotics, and Dr. Lott did not feel that there is a need for a change at this point, but I will recommend sending the BAL specimen for PCP evaluation.considering the patient is not making much improvement, and that's more of a reason to go ahead and proceed with bronchoscopy and BAL today. Patient understood very well that she may end up requiring to be placed on mechanical ventilation if she desaturates significantly during the procedure. Reevaluated today on 04/14/2017, remains on high flow and high FiO2, however patient is feeling much better today compared to the last couple of days. We are able to titrate down the FiO2 and titrate down the flow. Presently on 50% FiO2 and 50 L/m flow using Airvo2. Her O2 saturation is in the high 90s, and pulse is 76. Blood pressure is stable. CBC is relatively normal. Basic metabolic profile is normal. Bicarb is 37. Chest x-ray is showing slight improvement in her bilateral interstitial infiltrates. Bronchoscopy specimen is still pending so far nothing diagnostic. Patient was reevaluated today on 04/15/2017, feeling much better, breathing easier, chest x-ray continues to show bilateral interstitial infiltrates. However the patient is down to a 40% FiO2, and 40 L/m flow. Denies any shortness of breath, she has some occasional cough and wheezing. Sputum cultures are suspicious for possible staph aureus, final identification and sensitivity is pending. Bronchial cultures are still pending. Vancomycin was added yesterday by Dr. Lott.and she remains on Zosyn.WBC count today is 11.8, her INR is 1.9, remains on Coumadin, dose is being adjusted. Basic metabolic profile is relatively normal renal profile is normal. Objective - Vital Signs Vital signs: Vital Signs Temp 98.1 F 04/15/17 08:00 Pulse 66 04/15/17 11:08 Resp 17 04/15/17 10:00 BP 110/65 04/15/17 10:00 Pulse Ox 99 04/15/17 10:00 Intake & Output 04/14/17 04/15/17 04/15/17 18:59 06:59 18:59 Intake Total 661 645.0 72.5 Output Total 1940 3130 575 Balance -1279 -2485.0 -502.5 Weight 115.9 kg Intake: IV 661 135.0 72.5 Piperacillin-Tazobactam 3 75.0 12.5 .375 gm In Dextrose/Water 1 50ml.bag @ 12.5 mls/hr IVPB Q8HR [facility] Rx#: [id number] Sodium Chloride 0.9% 1, 160 60 60 000 ml @ 20 mls/hr IV . Q24H [facility] Rx#:[id number] Vancomycin 2,000 mg In 501 Sodium Chloride 0.9% 500 ml @ 167 mls/hr IVPB ONCE ONE Rx#:[id number] Intake, IV Titration 270 Amount Sodium Chloride 0.9% 1, 20 000 ml @ 20 mls/hr IV . Q24H [facility] Rx#:[id number] Vancomycin 1,500 mg In 250 Sodium Chloride 0.9% 250 ml @ 125 mls/hr IVPB Q8H [facility] Rx#:[id number] Oral 240 Output: Urine 1940 3130 575 Other: Voiding Method Indwelling Catheter Indwelling Catheter Indwelling Catheter # Voids 1 - Exam GENERAL EXAM: Alert, pleasant, 46-year-old white female, obese, in no distress, HEAD: Normocephalic/atraumatic. EYES: Normal reaction of pupils, equal size. Conjunctiva pink, sclera white. NOSE: Clear with pink turbinates. THROAT: No erythema or exudates. NECK: No masses, no JVD, no thyroid enlargement, no adenopathy. CHEST: No chest wall deformity. Symmetrical expansion. LUNGS: Equal air entry good breath sound bilaterally, minimal wheezing on forced expiratory maneuver noted and minimal crackles at the bases noted. CVS: Regular rate and rhythm, normal S1 and S2, no gallops, no murmurs, no rubs ABDOMEN: Soft, nontender. No hepatosplenomegaly, normal bowel sounds, no guarding or rigidity. EXTREMITIES: No clubbing, no edema, no cyanosis, 2+ pulses and upper and lower extremities. MUSCULOSKELETAL: Muscle strength and tone normal. SPINE: No scoliosis or deformity SKIN: No rashes CENTRAL NERVOUS SYSTEM: Alert and oriented -3. No focal deficits, tone is normal in all 4 extremities. PSYCHIATRIC: Alert and oriented -3. Appropriate affect. Intact judgment and insight. - Labs CBC & Chem 7: 04/15/17 06:00 04/15/17 06:00 Labs: Abnormal Lab Results - Last 24 Hours (Table) 04/14/17 04/14/17 04/14/17 Range/Units 11:51 17:14 20:21 WBC (3.8-10.6) k/uL Neutrophils # (Manual) (1.3-7.7) k/uL Monocytes # (Manual) (0-1.0) k/uL PT (9.0-12.0) sec INR (<1.2) Chloride (98-107) mmol/L Carbon Dioxide (22-30) mmol/L Glucose (74-99) mg/dL POC Glucose (mg/dL) 176 H 151 H 142 H (75-99) mg/dL Total Protein (6.3-8.2) g/dL Albumin (3.5-5.0) g/dL 04/15/17 04/15/17 04/15/17 Range/Units 06:00 06:00 07:27 WBC 11.8 H (3.8-10.6) k/uL Neutrophils # (Manual) 8.10 H (1.3-7.7) k/uL Monocytes # (Manual) 1.06 H (0-1.0) k/uL PT (9.0-12.0) sec INR (<1.2) Chloride 97 L (98-107) mmol/L Carbon Dioxide 36 H (22-30) mmol/L Glucose 131 H (74-99) mg/dL POC Glucose (mg/dL) 156 H (75-99) mg/dL Total Protein 5.8 L (6.3-8.2) g/dL Albumin 3.1 L (3.5-5.0) g/dL 04/15/17 Range/Units 08:50 WBC (3.8-10.6) k/uL Neutrophils # (Manual) (1.3-7.7) k/uL Monocytes # (Manual) (0-1.0) k/uL PT 17.3 H (9.0-12.0) sec INR 1.9 H (<1.2) Chloride (98-107) mmol/L Carbon Dioxide (22-30) mmol/L Glucose (74-99) mg/dL POC Glucose (mg/dL) (75-99) mg/dL Total Protein (6.3-8.2) g/dL Albumin (3.5-5.0) g/dL Microbiology - Last 24 Hours (Table) 04/13/17 13:48 Acid Fast Bacilli Smear - Final Bronchial Washings - Right Acid Fast Bacilli Culture - Preliminary 04/12/17 06:00 Gram Stain - Preliminary Sputum Sputum Culture - Preliminary Presumptive Staph aureus Lou albicans 04/13/17 13:48 Gram Stain - Preliminary Bronchial Washings - Right Bronchial Washings Culture - Preliminary Assessment and Plan Assessment: #1. Acute on chronic hypoxic respiratory failure, multifactorial, COPD exacerbation, sarcoidosis, pulmonary fibrosis, strongly suspect underlying pneumonitis, likely community-acquired.. Patient presented with a febrile illness, chest congestion, wheezing, production of thick brown sputum, right chest wall pain, hypoxia O2 sat 84% on 3 L per nasal cannula. CTA chest from shows extensive honeycombing type pneumonitis, suggestive of pulmonary fibrosis, within the right lower lobe, right middle lobe, and bilateral upper lobe areas. No evidence of PEs noted. #2. Recent hospitalization for COPD exacerbation in March 2017, patient signed out AMA, did not receive full course of treatment #3. Recent pneumonia, treated with a round of oral Levaquin, completed the course 2 weeks ago #4. Sarcoidosis, was confirmed by lung biopsy at [facility] in 2014, currently on maintenance dose of prednisone of 50 mg daily #5. History of pulmonary embolisms in 2011 and 2016, DVTs, currently on anticoagulation with Coumadin, however the levels are subtherapeutic on admission, INR is 1.1, question medical compliance. Had previously tried Xarelto, developed reaction to it, Pradaxa was not covered on her insurance plan #6. Nicotine addiction, currently in remission, carries over [id number] smoking history #7. Obesity with features of obstructive sleep apnea, although this has not been officially confirmed #8. Anxiety #9. Coronary artery disease, history of myocardial infarction #10. History of MRSA pneumonia #11. Recurrent hospitalizations and intubations for respiratory complications #12. Bipolar disorder #13. Degenerative disc disease #14. Hypertension #15. Hyperlipidemia #16. Fibromyalgia #17 status post bronchoscopy and BAL of the right middle lobe and right lower lobe done on 04/13/2017. Results of which are pending.however sputum is suspicious for presumptive staph. Recommendation: Continue antibiotics,vancomycin was added, remains on Zosyn. continue steroids, continue diuretics, await bronchoalveolar lavage findings and microbiology from the BAL. In the meantime considering the patient is improving clinically, and her chest x-ray showing improvement, will continue present treatment plan and supportive care measures. We will keep in the ICU for the next 24 hours. Time with Patient: Less than 30
[2017-04-15 12:57] LABS: Glucose,Whole Blood 163 mg/dL (75-99)
--- NOTE | 2017-04-15 15:03 | P.PN ---
Subjective Progress Note Date: 04/15/17 Principal diagnosis: Respiratory failure 46-year-old female who is known to infectious disease service from prior hospitalization a few years ago. At that point in time she had pneumonia responded well to interventions. She has a known history of sarcoidosis diagnosed in 2014. She's been doing modestly well on her high-dose of steroid to 50 mg a day. At this time she is relating that she feels very poorly. She' s had progressive shortness of breath. She has cough or sputum production which is thin in nature. No hemoptysis. She has had progressively worsening shortness of breath over the last couple of days. She relates over the last 3 months there has been a decline of her status. But about a day before coming to hospitals when she noticed a marked change of her status. She was short of breath with all activities and started to feel like she was being smothered and was having some discomfort in her chest also. Eventually presented to the emergency center where she is on evidence of hypoxia because he has been admitted. She's been seen by pulmonary critical care and with lack of improvement has now undergone bronchoscopy with multiple specimens. This will help evaluate for underlying viral pneumonia as well as pneumocystis. Patient is improved today. Her high flow oxygen has been reduced to 40% with a flow of 40.. She's feeling considerably better but still somewhat short of breath. Still having some right-sided pleuritic chest pain other than this feels better than yesterday. Denies further fevers or chills.this Objective - Vital Signs Vital signs: Vital Signs Temp 98.2 F 04/15/17 12:00 Pulse 69 04/15/17 14:00 Resp 23 04/15/17 14:00 BP 109/56 04/15/17 14:00 Pulse Ox 96 04/15/17 14:00 Intake & Output 04/14/17 04/15/17 04/15/17 18:59 06:59 18:59 Intake Total 661 645.0 257.5 Output Total 1940 3130 1375 Balance -1279 -2485.0 -1117.5 Weight 115.9 kg Intake: IV 661 135.0 257.5 Piperacillin-Tazobactam 3 75.0 12.5 .375 gm In Dextrose/Water 1 50ml.bag @ 12.5 mls/hr IVPB Q8HR [facility] Rx#: [id number] Sodium Chloride 0.9% 1, 160 60 120 000 ml @ 20 mls/hr IV . Q24H [facility] Rx#:[id number] Vancomycin 1,500 mg In 125 Sodium Chloride 0.9% 250 ml @ 125 mls/hr IVPB Q8H [facility] Rx#:[id number] Vancomycin 2,000 mg In 501 Sodium Chloride 0.9% 500 ml @ 167 mls/hr IVPB ONCE ONE Rx#:[id number] Intake, IV Titration 270 Amount Sodium Chloride 0.9% 1, 20 000 ml @ 20 mls/hr IV . Q24H [facility] Rx#:[id number] Vancomycin 1,500 mg In 250 Sodium Chloride 0.9% 250 ml @ 125 mls/hr IVPB Q8H [facility] Rx#:[id number] Oral 240 Output: Urine 1940 3130 1375 Other: Voiding Method Indwelling Catheter Indwelling Catheter Indwelling Catheter # Voids 1 # Bowel Movements 1 - Exam 46-year-old woman who looks older than her stated age is quite short of breath. His uncomfortable because she is so short of breath. Does have cough without significant sputum production HEENT: Anicteric conjunctiva are pink and moist nasal mucosa grossly intact without significant lesions, there is no thrush. Edentulous Neck: The neck is supple without significant lymphadenopathy or thyromegaly. Lungs: They're symmetrical air entry however there are coarse crackles at the bases expiratory wheezes are heard no dullness or egophony Heart: Irregular with an audible S1 and S2 soft S4. There is no significant murmur click or rub, PMI was nondisplaced. Abdomen: Obese, Positive bowel sounds soft and nontender without palpable masses or organomegaly. There was no guarding or rebound. Extremities: The upper extremities have excellent pulses they are symmetric, no significant petechiae or telangiectasia. No splinter hemorrhages were noted. The lower extremity is evidence of trace pedal edema, peripheral pulses are 2+ and symmetric. Skin he has no sick an open lesions or rashes Neuro: Awake alert oriented to person place and time. There are no acute new gross focal sensory motor deficits. Patient is very anxious. - Labs CBC & Chem 7: 04/15/17 06:00 04/15/17 06:00 Labs: Abnormal Lab Results - Last 24 Hours (Table) 04/14/17 04/14/17 04/15/17 Range/Units 17:14 20:21 06:00 WBC 11.8 H (3.8-10.6) k/uL Neutrophils # (Manual) 8.10 H (1.3-7.7) k/uL Monocytes # (Manual) 1.06 H (0-1.0) k/uL PT (9.0-12.0) sec INR (<1.2) Chloride (98-107) mmol/L Carbon Dioxide (22-30) mmol/L Glucose (74-99) mg/dL POC Glucose (mg/dL) 151 H 142 H (75-99) mg/dL Total Protein (6.3-8.2) g/dL Albumin (3.5-5.0) g/dL 04/15/17 04/15/17 04/15/17 Range/Units 06:00 07:27 08:50 WBC (3.8-10.6) k/uL Neutrophils # (Manual) (1.3-7.7) k/uL Monocytes # (Manual) (0-1.0) k/uL PT 17.3 H (9.0-12.0) sec INR 1.9 H (<1.2) Chloride 97 L (98-107) mmol/L Carbon Dioxide 36 H (22-30) mmol/L Glucose 131 H (74-99) mg/dL POC Glucose (mg/dL) 156 H (75-99) mg/dL Total Protein 5.8 L (6.3-8.2) g/dL Albumin 3.1 L (3.5-5.0) g/dL 04/15/17 Range/Units 12:55 WBC (3.8-10.6) k/uL Neutrophils # (Manual) (1.3-7.7) k/uL Monocytes # (Manual) (0-1.0) k/uL PT (9.0-12.0) sec INR (<1.2) Chloride (98-107) mmol/L Carbon Dioxide (22-30) mmol/L Glucose (74-99) mg/dL POC Glucose (mg/dL) 163 H (75-99) mg/dL Total Protein (6.3-8.2) g/dL Albumin (3.5-5.0) g/dL Microbiology - Last 24 Hours (Table) 04/13/17 13:48 Acid Fast Bacilli Smear - Final Bronchial Washings - Right Acid Fast Bacilli Culture - Preliminary Laboratory Results WBC 11.8 k/uL (3.8-10.6) H 04/15/17 06:00 RBC 4.21 m/uL (3.80-5.40) 04/15/17 06:00 Hgb 13.6 gm/dL (11.4-16.0) 04/15/17 06:00 Hct 40.8 % (34.0-46.0) 04/15/17 06:00 MCV 96.9 fL (80.0-100.0) 04/15/17 06:00 MCH 32.4 pg (25.0-35.0) 04/15/17 06:00 MCHC 33.5 g/dL (31.0-37.0) 04/15/17 06:00 RDW 13.6 % (11.5-15.5) 04/15/17 06:00 Plt Count 274 k/uL (150-450) 04/15/17 06:00 Neutrophils % 85 % 04/14/17 04:20 Neutrophils % (Manual) 58 % 04/15/17 06:00 Band Neutrophils % 11 % 04/15/17 06:00 Lymphocytes % 7 % 04/14/17 04:20 Lymphocytes % (Manual) 21 % 04/15/17 06:00 Monocytes % 6 % 04/14/17 04:20 Monocytes % (Manual) 9 % 04/15/17 06:00 Eosinophils % 1 % 04/14/17 04:20 Eosinophils % (Manual) 1 % 04/15/17 06:00 Basophils % 0 % 04/14/17 04:20 Neutrophils # 9.3 k/uL (1.3-7.7) H 04/14/17 04:20 Neutrophils # (Manual) 8.10 k/uL (1.3-7.7) H 04/15/17 06:00 Lymphocytes # 0.8 k/uL (1.0-4.8) L 04/14/17 04:20 Lymphocytes # (Manual) 2.48 k/uL (1.0-4.8) 04/15/17 06:00 Monocytes # 0.7 k/uL (0-1.0) 04/14/17 04:20 Monocytes # (Manual) 1.06 k/uL (0-1.0) H 04/15/17 06:00 Eosinophils # 0.1 k/uL (0-0.7) 04/14/17 04:20 Eosinophils # (Manual) 0.12 k/uL (0-0.7) 04/15/17 06:00 Basophils # 0.0 k/uL (0-0.2) 04/14/17 04:20 Nucleated RBCs 0 /100 WBC (0-0) 04/15/17 06:00 Manual Slide Review Performed 04/15/17 06:00 Polychromasia Present 04/15/17 06:00 Anisocytosis (manual) Present 04/15/17 06:00 Macrocytosis Slight 04/12/17 04:55 PT 17.3 sec (9.0-12.0) H 04/15/17 08:50 INR 1.9 (<1.2) H 04/15/17 08:50 APTT 20.6 sec (22.0-30.0) L 04/10/17 16:35 Sample Site LRA 04/11/17 10:18 ABG pH 7.46 (7.35-7.45) H 04/11/17 10:18 ABG pCO2 36 mmHg (35-45) 04/11/17 10:18 ABG pO2 63 mmHg (83-108) L 04/11/17 10:18 ABG HCO3 25 mmol/L (21-25) 04/11/17 10:18 ABG Total CO2 26 mmol/L (19-24) H 04/11/17 10:18 ABG O2 Saturation 93.3 % (94-97) L 04/11/17 10:18 ABG Base Excess 1.7 mmol/L 04/11/17 10:18 Yohan Test Yes 04/11/17 10:18 FiO2 55 % 04/11/17 10:18 Sodium 139 mmol/L (137-145) 04/15/17 06:00 Potassium 3.9 mmol/L (3.5-5.1) 04/15/17 06:00 Chloride 97 mmol/L (98-107) L 04/15/17 06:00 Carbon Dioxide 36 mmol/L (22-30) H 04/15/17 06:00 Anion Gap 6 mmol/L 04/15/17 06:00 BUN 16 mg/dL (7-17) 04/15/17 06:00 Creatinine 0.60 mg/dL (0.52-1.04) 04/15/17 06:00 Est GFR (MDRD) Af Amer >60 (>60 ml/min/1.73 sqM) 04/15/17 06:00 Est GFR (MDRD) Non-Af >60 (>60 ml/min/1.73 sqM) 04/15/17 06:00 Glucose 131 mg/dL (74-99) H 04/15/17 06:00 POC Glucose (mg/dL) 163 mg/dL (75-99) H 04/15/17 12:55 POC Glu Premix Operator Concentrate ID Symone Degroot 04/15/17 12:[address] Glu mg/dL 105 04/10/17 16:35 Hemoglobin A1c 5.3 % (4.0-6.0) 04/10/17 16:35 Calcium 8.4 mg/dL (8.4-10.2) 04/15/17 06:00 Phosphorus 2.5 mg/dL (2.5-4.5) 04/15/17 06:00 Magnesium 2.3 mg/dL (1.6-2.3) 04/15/17 06:00 Total Bilirubin 0.5 mg/dL (0.2-1.3) 04/15/17 06:00 AST 26 U/L (14-36) 04/15/17 06:00 ALT 37 U/L (9-52) 04/15/17 06:00 Alkaline Phosphatase 63 U/L (38-126) 04/15/17 06:00 Total Creatine Kinase 70 U/L (30-135) 04/10/17 16:35 CK-MB (CK-2) 0.8 ng/mL (0.0-2.4) 04/10/17 16:35 CK-MB (CK-2) Rel Index 1.1 04/10/17 16:35 Troponin I <0.012 ng/mL (0.000-0.034) 04/10/17 16:35 Total Protein 5.8 g/dL (6.3-8.2) L 04/15/17 06:00 Albumin 3.1 g/dL (3.5-5.0) L 04/15/17 06:00 Urine Color Yellow 04/10/17 16:35 Urine Appearance Cloudy (Clear) H 04/10/17 16:35 Urine pH 6.5 (5.0-8.0) 04/10/17 16:35 Ur Specific New Site 1.030 (1.001-1.035) 04/10/17 16:35 Urine Protein Trace (Negative) H 04/10/17 16:35 Urine Glucose (UA) 1+ (Negative) H 04/10/17 16:35 Urine Ketones Negative (Negative) 04/10/17 16:35 Urine Blood Negative (Negative) 04/10/17 16:35 Urine Nitrite Negative (Negative) 04/10/17 16:35 Urine Bilirubin Negative (Negative) 04/10/17 16:35 Urine Urobilinogen <2.0 mg/dL (<2.0) 04/10/17 16:35 Ur Leukocyte Esterase Negative (Negative) 04/10/17 16:35 Urine RBC 1 /hpf (0-5) 04/10/17 16:35 Urine WBC 2 /hpf (0-5) 04/10/17 16:35 Ur Squamous Epith Cells 10 /hpf (0-4) H 04/10/17 16:35 Hyaline Casts 1 /lpf (0-2) 04/10/17 16:35 Urine Mucus Rare /hpf (None) H 04/10/17 16:35 Fluid Source Bronchial Wash 04/13/17 13:48 Fluid Color Colorless 04/13/17 13:48 Fluid Appearance Cloudy 04/13/17 13:48 Fluid RBC 940 /uL 04/13/17 13:48 Fluid Nucleated Cells 400 /uL 04/13/17 13:48 Fluid Mononuclear WBCs 100 % 04/13/17 13:48 Influenza Type A RNA Not Detected (Not Detectd) 04/10/17 23:00 Influenza Type B (PCR) Not Detected (Not Detectd) 04/10/17 23:00 Mycoplasma pneumon IgG 0.62 INDEX (<=0.90) 04/12/17 04:55 Mycoplasma pneumon IgM 0.58 INDEX (<=0.90) 04/12/17 04:55 Virus Source See Below 04/13/17 13:48 Viral Test See Below 04/13/17 13:48 Virus Analysis Interp See Below 04/13/17 13:48 Microbiology 04/13/17 13:48 Bronchial Washings - Right Acid Fast Bacilli Smear - Final 04/13/17 13:48 Bronchial Washings - Right Acid Fast Bacilli Culture - Preliminary 04/12/17 06:00 Sputum Gram Stain - Preliminary 04/12/17 06:00 Sputum Sputum Culture - Preliminary Presumptive Staph aureus Lou albicans 04/13/17 13:48 Bronchial Washings - Right Gram Stain - Preliminary 04/13/17 13:48 Bronchial Washings - Right Bronchial Washings Culture - Preliminary 04/13/17 13:48 Bronchial Washings - Right Fungal Culture - Preliminary 04/10/17 16:35 Urine,Voided Urine Culture - Final Assessment and Plan (1) Multifocal pneumonia Narrative/Plan: 46-year-old female presents to Hospital feeling very poorly over just about a days timeframe. Was having some decline over status of the last 3 months. Was hospitalized in March did leave AMA. She now is profoundly short of breath feeling very poorly. She has significant wheezing cough that has been persistent. Some sputum production is occurring. No hemoptysis. She' s been seen by the devulcanizer charger and his contemplation for bronchoscopy. I believe this would be helpful to diagnose pneumocystis if it is occurring and also a deep specimen can be obtained for comprehensive viral studies given the current multiple viruses circulate in the community causing significant pulmonary disease. Is receiving the ICU protocol of piperacillin tazobactam and Levaquin. If there is any worsening of her status would then add intravenous Bactrim. This should give us coverage for pneumocystis as well as for the possibility of MRSA given that there seems to be a remote history although we have no positive cultures for MRSA to her multiple recent hospitalizations. Her prognosis is somewhat poor given her progressive pulmonary disease, her inability to stop smoking and her obesity. As noted pulmonary has performed bronchoscopy. Hopefully these deep specimens will help differentiate virus from pneumocystis versus other gram-negative pathogens of pneumonia in this high risk patient. Laboratories have been reviewed. And although the lab is showing evidence of grams he is gram-negative bacilli the cultures are now showing evidence of staph aureus and have not yet demonstrated this is MRSA. With this new finding antibiotic therapy is further altered and vancomycin is added to her other pathogen antibiotic therapy. Fortunate she is showing improvement. Await results from the bronchoscopy to further tailor antimicrobial therapy. Viral culture is negative. Await the final susceptibility for her staph aureus. Current Visit: Yes Status: Acute Code(s): J18.9 - PNEUMONIA, UNSPECIFIED ORGANISM SNOMED Code(s): 508880816 (2) Sarcoidosis Current Visit: No Status: Acute Code(s): D86.9 - SARCOIDOSIS, UNSPECIFIED SNOMED Code(s): 55569519 (3) COPD (chronic obstructive pulmonary disease) Current Visit: Yes Status: Acute Code(s): J44.9 - CHRONIC OBSTRUCTIVE PULMONARY DISEASE, UNSPECIFIED SNOMED Code(s): 52921683
[2017-04-15] MEDS: LORazepam 2 MG/ML INJ IV PRN (15:25)
[2017-04-15] MEDS: SODIUM CHLORIDE 0.9% 1,000 ML IV SCH (15:27)
[2017-04-15] MEDS: WARFARIN 5 MG TAB PO SCH (17:20)
[2017-04-15] MEDS: WARFARIN 2 MG TAB PO SCH (17:20)
[2017-04-15 17:30] LABS: Glucose,Whole Blood 145 mg/dL (75-99)
--- NOTE | 2017-04-15 18:40 | PN ---
PROGRESS NOTE 46-year-old white female admitted for pneumonia, history of sarcoidosis. She has found to have MRSA in her lungs. She was started on vancomycin. She takes Benadryl with her vancomycin. CARDIOVASCULAR: S1, S2. LUNGS: Scattered wheeze. HEMATOLOGY: Negative Homans. PSYCH: Fair mood and affect. Temp 98.2, pulse 69, respirations 20 to 23, blood pressure 110s over 50s, O2 96. Remains on IV vancomycin and Zosyn. White count 11.8. ASSESSMENT: 1. Multifocal pneumonia on Levaquin IV and Zosyn IV. 2. MRSA pneumonia treated with vancomycin. 3. Sarcoidosis. 4. Chronic obstructive pulmonary disease. Continue current treatment. Await Pulmonary and Infectious Disease recommendations. MMODL / IJN: [id number] /
[2017-04-15] MEDS: MONTELUKAST 10 MG TAB PO SCH (20:42)
[2017-04-15] MEDS: MIRTAZAPINE 45 MG TABLET PO SCH (20:42)
[2017-04-15 20:49] LABS: Glucose,Whole Blood 197 mg/dL (75-99)
[2017-04-15] MEDS ORDERED: VANCOMYCIN TROUGH DUE 1 EACH MISC MISCELLANE ONE (21:00)
[2017-04-15] MEDS: VANCOMYCIN 2,000 MG in SODIUM CHLORIDE 0.9% 500 ML IVPB SCH (22:18)
[2017-04-16] MEDS: HYDROmorphone 2 MG/ML 1 ML SYRINGE IVP PRN ×11 (00:20→22:33)
[2017-04-16] MEDS: methylPREDNISolone SOD SUCCI 125 MG/2 ML VIAL IV SCH ×4 (00:20→17:01)
[2017-04-16] MEDS: PIPERACILLIN-TAZOBACTAM 3.375 GM in DEXTROSE/WATER 1 50ML.BAG IVPB SCH ×3 (01:34→16:54)
[2017-04-16] MEDS: CHLORPHEN-HYDROcod 8-10mg/5ml 5 ML ORAL.SYRG PO SCH ×2 (03:37→16:41)
[2017-04-16 05:15] LABS: Basophils # (A) 0.2 k/uL (0-0.2); Basophils % (A) 1 %; Eosinophils # (A) 0.1 k/uL (0-0.7); Eosinophils % (A) 1 %; HCT 40.9 % (34.0-46.0); HGB 13.4 gm/dL (11.4-16.0); Lymphocytes # (A) 0.7 k/uL (1.0-4.8); Lymphocytes % (A) 6 %; MCH 31.8 pg (25.0-35.0); MCHC 32.9 g/dL (31.0-37.0); MCV 96.8 fL (80.0-100.0); Mean Platelet Volume 7.7; Monocytes # (A) 0.7 k/uL (0-1.0); Monocytes % (A) 6 %; Neutrophils # (A) 10.3 k/uL (1.3-7.7); Neutrophils % (A) 86 %; Platelet Count 256 k/uL (150-450); RBC 4.23 m/uL (3.80-5.40); RDW 14.2 % (11.5-15.5)
[2017-04-16 05:31] LABS: Anion Gap 6 mmol/L; Blood Urea Nitrogen 15 mg/dL (7-17); Calcium 8.3 mg/dL (8.4-10.2); Carbon Dioxide 34 mmol/L (22-30); Chloride 99 mmol/L (98-107); Glucose 196 mg/dL (74-99); Magnesium 2.4 mg/dL (1.6-2.3); Phosphorus 2.9 mg/dL (2.5-4.5); Potassium 4.3 mmol/L (3.5-5.1); Sodium 139 mmol/L (137-145)
[2017-04-16] MEDS: diphenhydrAMINE 50 MG/ML 1 ML VIAL IVP PRN ×2 (06:28→21:19)
[2017-04-16] MEDS: VANCOMYCIN 2,000 MG in SODIUM CHLORIDE 0.9% 500 ML IVPB SCH ×3 (06:47→22:03)
[2017-04-16] MEDS: BUDESONIDE 1 MG/2 ML NEBU INHALATION SCH ×2 (07:09→19:55)
[2017-04-16] MEDS: IPRATROPIUM-ALBUTEROL 3 ML NEB INHALATION SCH ×4 (07:10→19:55)
[2017-04-16] MEDS: FORMOTEROL FUMARATE 20 MCG/2 ML NEBU INHALATION SCH ×2 (07:10→19:55)
[2017-04-16 07:22] LABS: Glucose,Whole Blood 157 mg/dL (75-99)
[2017-04-16 07:47] LABS: INR 1.8 (<1.2); Partial Thromboplastin Time 25.8 sec (22.0-30.0); Prothrombin Time 16.2 sec (9.0-12.0)
--- NOTE | 2017-04-16 08:02 | XR ---
EXAMINATION TYPE: XR chest 1V DATE OF EXAM: 04/16/2017 COMPARISON: 04/15/2017 HISTORY: 46 year-old female shortness of breath TECHNIQUE: Single frontal view of the chest is obtained. FINDINGS: Heart borderline enlarged. Diffuse interstitial and vascular prominence, stable to minimally improved . Possible trace left effusion. IMPRESSION: Pulmonary vascular congestion/mild interstitial edema remains, stable to minimally improved. Possible trace left effusion.
[2017-04-16] MEDS: ALPRAZolam 0.5 MG TAB PO SCH ×2 (08:28→21:19)
[2017-04-16] MEDS: PANTOPRAZOLE 40 MG TABLET PO SCH (08:29)
[2017-04-16] MEDS: lamoTRIgine 100 MG TAB PO SCH (08:30)
[2017-04-16] MEDS: BUMETANIDE 1 MG TAB PO SCH ×2 (08:30→21:19)
[2017-04-16] MEDS: LEVOFLOXACIN 500 MG TAB PO SCH (08:30)
[2017-04-16] MEDS: ENOXAPARIN 80 MG/0.8 ML SYRINGE SQ SCH ×2 (08:30→21:20)
[2017-04-16] MEDS: PREGABALIN 100 MG CAP PO SCH ×2 (08:30→21:36)
[2017-04-16] MEDS: POTASSIUM CHLORIDE ER 20 MEQ TAB.ER PO SCH (08:32)
[2017-04-16] MEDS: METOPROLOL TARTRATE 50 MG TAB PO SCH ×2 (08:32→21:20)
[2017-04-16] MEDS: FLUoxetine HCL 20 MG CAP PO SCH (08:32)
[2017-04-16] MEDS: INSULIN ASPART 100 UNIT/ML 1 ML 10 ML VIAL SQ SCH ×4 (08:40→21:37)
[2017-04-16] MEDS: SODIUM CHLORIDE 0.9% 1,000 ML IV SCH ×2 (09:50→14:25)
[2017-04-16] MEDS ORDERED: BUMETANIDE 0.25 MG/ML 4 ML VIAL IVP STA (10:59)
--- NOTE | 2017-04-16 10:59 | P.PN ---
Subjective Progress Note Date: 04/16/17 Principal diagnosis: Acute hypoxic respiratory failure secondary to community acquired pneumonia and sarcoidosisNarayan Valentine is a 46-year-old white female patient who follows with ABHISHEK Thornton, presented to the emergency department on 04/10/2017 at 1600 with complaints of increasing shortness of breath, right-sided chest wall pain, hypoxia, with O2 sat going down as low as 76% on room air, productive cough with dark brown sputum, fever at home of 103F. She states she is been sick on and off this winter, was recently hospitalized in March for an acute COPD exacerbation, with acute on chronic hypoxic respiratory failure, and we had seen her in consult on 03/18/2017. However the patient signed out AMA the following day, and did not follow-up with any pulmonary doctors after that. Most recently her PCP treated her with a round of oral Levaquin which she completed 2 weeks ago. Patient has chronic hypoxic respiratory failure, due to history of COPD and sarcoidosis, which was confirmed by lung biopsy at [facility] and the patient is on maintenance dose prednisone 50 mg daily. She also has morbid obesity with features of obstructive sleep apnea, however this has not been officially confirmed. Other medical history includes bronchial asthma, pulmonary embolisms, DVTs, heart failure, hypertension, MRSA pneumonia. She is an ex-smoker, she states she quit smoking 6 months ago, however prior to that she she smoked for over 20 years. She states she has had multiple hospitalizations for her chronic pulmonary problems, and has been intubated and placed on mechanical ventilation multiple times, most of those times at [facility]. She is on Coumadin for her history of PEs and DVTs. Chest x -ray taken on 04/10/2017 shows fine reticular pattern of increased density throughout the lungs, prominence of the pulmonary vasculature, there is partial confluence of density in the right lower lung zone. This was followed up by chest CTA which showed no evidence of pulmonary embolism, but there were scattered areas of pneumonitis, suggestive of pulmonary fibrosis within the right lower lobe, right middle lobe, bilateral upper lobe areas. This was suggestive of pulmonary fibrosis, or atypical pulmonary edema. Doppler ultrasound of the bilateral lower legs was negative for DVTs. Patient is on her home dose of Coumadin, however her INR is subtherapeutic at 1.1 on admission. Lab work showed WBC of 11.9, hemoglobin of 14, serum sodium was 137 , potassium is 4.6, B1 was 9, creatinine of 0.51. Cardiac enzymes and troponins were negative 1, influenza screen was negative. Upon my evaluation this morning, patient is obviously cyanotic, mildly short of breath, but still talking on the phone to one of her family members. On 3 L per nasal cannula, her O2 sat was only 84%. She was placed on high flow nasal cannula, blood gas was done and it showed pO2 of 63, pCO2 of 36, pH of 7.46 this was done on 55% FiO2. FiO2 will be titrated up to keep O2 sat at 92% or better. Patient was reevaluated today on 04/12/2017, she was transferred to the ICU yesterday after I evaluated the patient, placed on a high flow nasal cannula, and placed on antibiotics, bronchodilators, steroids, however the patient does not seem to be making much improvement. She is a bit worse clinically, and her chest x-ray is showing worsening interstitial infiltrates bilaterally. Patient will be given a dose of Lasix 40 mg IV push, I have switched her from a nasal cannula to airvo2 with 50 L/m flow and 70% FiO2. Her O2 saturations are now in the mid 90s. Patient will likely benefit from bronchoscopy, however my main concern that the patient is borderline, she will need to be intubated in order to perform a safe bronchoscopy. She was certainly desaturated during bronchoscopy, and she would have to be intubated. This will be decided upon hopefully in the next 24 hours depending on her overall response to treatment. In the meantime I have recommended infectious disease consultation with Dr. Lott. My only concern is the fact that the patient is not covered for PCP, patient is relatively immunocompromised, she has been on prednisone at 60 mg orally for quite some time given to her by her primary care physician for presumptive sarcoidosis. This diagnosis was supposedly made at [facility] when the patient underwent lung biopsy. Patient always had a picture of interstitial lung disease, felt to be at one point to be respiratory bronchiolitis associated interstitial lung disease. But since the biopsy was done at [facility], it was proven to be sarcoidosis. CBC today showed WBC count of 13.2 hemoglobin 12.7. Electrolytes and renal profile are normal. Reevaluated today on 04/13/2017,patient remains in the ICU, remains on a high flow oxygen, and high FiO2. Saturation is in the 90s, however the patient desaturates easily with any movement. Her chest x-ray continues to show worsening interstitial infiltrates bilaterally,CBC is relatively normal with WBC count of 12.7. Electrolytes and renal profile are normal. Patient does not seem to be making much improvement with antibiotics and steroids and diuretics.patient remains nothing by mouth this morning, hence I have discussed with her and with her at bedside that it would be best to at least attempt to get a diagnosis by bronchoscopy and BAL. In the meantime we'll plan to continue antibiotics, and Dr. Lott did not feel that there is a need for a change at this point, but I will recommend sending the BAL specimen for PCP evaluation.considering the patient is not making much improvement, and that's more of a reason to go ahead and proceed with bronchoscopy and BAL today. Patient understood very well that she may end up requiring to be placed on mechanical ventilation if she desaturates significantly during the procedure. Reevaluated today on 04/14/2017, remains on high flow and high FiO2, however patient is feeling much better today compared to the last couple of days. We are able to titrate down the FiO2 and titrate down the flow. Presently on 50% FiO2 and 50 L/m flow using Airvo2. Her O2 saturation is in the high 90s, and pulse is 76. Blood pressure is stable. CBC is relatively normal. Basic metabolic profile is normal. Bicarb is 37. Chest x-ray is showing slight improvement in her bilateral interstitial infiltrates. Bronchoscopy specimen is still pending so far nothing diagnostic. Patient was reevaluated today on 04/15/2017, feeling much better, breathing easier, chest x-ray continues to show bilateral interstitial infiltrates. However the patient is down to a 40% FiO2, and 40 L/m flow. Denies any shortness of breath, she has some occasional cough and wheezing. Sputum cultures are suspicious for possible staph aureus, final identification and sensitivity is pending. Bronchial cultures are still pending. Vancomycin was added yesterday by Dr. Lott.and she remains on Zosyn.WBC count today is 11.8, her INR is 1.9, remains on Coumadin, dose is being adjusted. Basic metabolic profile is relatively normal renal profile is normal. On 09/14/2017 patient seen in follow-up in intensive care, she is currently awaiting of a bed on selective care unit. Overall she reports feeling better, sounds are still positive for scattered wheezes, still has a productive cough with small amount of brantley colored sputum. Her FiO2 is being weaned down, and is currently down at 35%, with O2 sats flow rate of 40 L/m per AIRVO high flow nasal cannula. Remains afebrile, hemodynamically stable. Bronchial washings from 04/13/2017 show presumptive staph aureus and Lou albicans, the sputum culture collected on 04/12/2017 shows MRSA and Lou albicans. ID service is on, patient is currently on Levaquin, Zosyn and vancomycin. Chest x-ray from today was reviewed and shows pulmonary vessel congestion/mild interstitial edema , compatible with CHF. She is on her home dose Bumex of 2 mg by mouth twice a day, we will give her an additional dose of Bumex IV today. Objective - Vital Signs Vital signs: Vital Signs Temp 98.7 F 04/16/17 04:00 Pulse 70 04/16/17 09:00 Resp 16 04/16/17 09:00 BP 124/69 04/16/17 09:00 Pulse Ox 92 L 04/16/17 09:00 Intake & Output 04/15/17 04/16/17 04/16/17 18:59 06:59 18:59 Intake Total 427.5 676.0 40 Output Total 1375 575 Balance -947.5 101.0 40 Weight 113.7 kg Intake: IV 427.5 175.0 40 Piperacillin-Tazobactam 3 37.5 75.0 .375 gm In Dextrose/Water 1 50ml.bag @ 12.5 mls/hr IVPB Q8HR AGNIESZKA Rx#: [id number] Sodium Chloride 0.9% 1, 140 100 40 000 ml @ 20 mls/hr IV . Q24H AGNIESZKA Rx#:[id number] Vancomycin 1,500 mg In 250 Sodium Chloride 0.9% 250 ml @ 125 mls/hr IVPB Q8H AGNIESZKA Rx#:[id number] Intake, IV Titration 501 Amount Vancomycin 2,000 mg In 501 Sodium Chloride 0.9% 500 ml @ 167 mls/hr IVPB Q8H AGNIESZKA Rx#:[id number] Output: Urine 1375 575 Other: Voiding Method Indwelling Catheter # Voids 1 1 # Bowel Movements 1 0 - Exam GENERAL EXAM: Alert, pleasant, 46-year-old white female, obese, in no distress, on high flow oxygen HEAD: Normocephalic/atraumatic. EYES: Normal reaction of pupils, equal size. Conjunctiva pink, sclera white. NOSE: Clear with pink turbinates. THROAT: No erythema or exudates. NECK: No masses, no JVD, no thyroid enlargement, no adenopathy. CHEST: No chest wall deformity. Symmetrical expansion. LUNGS: Equal air entry good breath sound bilaterally, scattered wheezes throughout the lung diana. CVS: Regular rate and rhythm, normal S1 and S2, no gallops, no murmurs, no rubs ABDOMEN: Soft, nontender. No hepatosplenomegaly, normal bowel sounds, no guarding or rigidity. EXTREMITIES: No clubbing, no edema, no cyanosis, 2+ pulses and upper and lower extremities. MUSCULOSKELETAL: Muscle strength and tone normal. SPINE: No scoliosis or deformity SKIN: No rashes CENTRAL NERVOUS SYSTEM: Alert and oriented -3. No focal deficits, tone is normal in all 4 extremities. PSYCHIATRIC: Alert and oriented -3. Appropriate affect. Intact judgment and insight. - Labs CBC & Chem 7: 04/16/17 04:54 04/16/17 04:54 Labs: Abnormal Lab Results - Last 24 Hours (Table) 04/15/17 04/15/17 04/15/17 Range/Units 12:55 17:28 20:48 WBC (3.8-10.6) k/uL Neutrophils # (1.3-7.7) k/uL Lymphocytes # (1.0-4.8) k/uL PT (9.0-12.0) sec INR (<1.2) Carbon Dioxide (22-30) mmol/L Glucose (74-99) mg/dL POC Glucose (mg/dL) 163 H 145 H 197 H (75-99) mg/dL Calcium (8.4-10.2) mg/dL Magnesium (1.6-2.3) mg/dL 04/16/17 04/16/17 04/16/17 Range/Units 04:54 04:54 04:54 WBC 12.0 H (3.8-10.6) k/uL Neutrophils # 10.3 H (1.3-7.7) k/uL Lymphocytes # 0.7 L (1.0-4.8) k/uL PT 16.2 H (9.0-12.0) sec INR 1.8 H (<1.2) Carbon Dioxide 34 H (22-30) mmol/L Glucose 196 H (74-99) mg/dL POC Glucose (mg/dL) (75-99) mg/dL Calcium 8.3 L (8.4-10.2) mg/dL Magnesium 2.4 H (1.6-2.3) mg/dL 04/16/17 Range/Units 07:20 WBC (3.8-10.6) k/uL Neutrophils # (1.3-7.7) k/uL Lymphocytes # (1.0-4.8) k/uL PT (9.0-12.0) sec INR (<1.2) Carbon Dioxide (22-30) mmol/L Glucose (74-99) mg/dL POC Glucose (mg/dL) 157 H (75-99) mg/dL Calcium (8.4-10.2) mg/dL Magnesium (1.6-2.3) mg/dL Microbiology - Last 24 Hours (Table) 04/12/17 06:00 Gram Stain - Final Sputum Sputum Culture - Preliminary Methicillin resist S. aureus Lou albicans 04/13/17 13:48 Gram Stain - Preliminary Bronchial Washings - Right Bronchial Washings Culture - Preliminary Presumptive Staph aureus Lou albicans Assessment and Plan Plan: Assessment: #1. Acute on chronic hypoxic respiratory failure, multifactorial, COPD exacerbation, sarcoidosis, pulmonary fibrosis, cannot exclude pneumonia. Patient presented with a febrile illness, chest congestion, wheezing, production of thick brown sputum, right chest wall pain, hypoxia O2 sat 84% on 3 L per nasal cannula. CTA chest from 04/20/2017 shows extensive honeycombing type pneumonitis, suggestive of pulmonary fibrosis, within the right lower lobe , right middle lobe, and bilateral upper lobe areas. No evidence of PEs noted. #2. Recent hospitalization for COPD exacerbation in March 2017, patient signed out AMA, did not receive full course of treatment #3. Recent pneumonia, treated with a round of oral Levaquin, completed the course 2 weeks ago #4. Sarcoidosis, was confirmed by lung biopsy at [facility] in 2014, currently on maintenance dose of prednisone of 50 mg daily #5. History of pulmonary embolisms in 2011 and 2016, DVTs, currently on anticoagulation with Coumadin, however the levels are subtherapeutic on admission, INR is 1.1, question medical compliance. Had previously tried Xarelto, developed reaction to it, Pradaxa was not covered on her insurance plan #6. Nicotine addiction, currently in remission, carries over [id number] smoking history #7. Obesity with features of obstructive sleep apnea, although this has not been officially confirmed #8. Anxiety #9. Coronary artery disease, history of myocardial infarction #10. History of MRSA pneumonia #11. Recurrent hospitalizations and intubations for respiratory complications #12. Bipolar disorder #13. Degenerative disc disease #14. Hypertension #15. Hyperlipidemia #16. Fibromyalgia #17. Status post bronchoscopy and BAL of the right middle lobe and right lower lobe done on 04/13/2017. Bronchial washings are positive for presumptive staph , and Lou albicans. Urine culture from 04/12/2017 was positive for MRSA and Lou albicans. Patient is covered with a combination of Levaquin, Zosyn and vancomycin. Likely continues to improve, FiO2 is being weaned down, currently down to 35%. Plan: T current antibiotics, Levaquin, Zosyn and vancomycin. Continue IV Solu-Medrol at 60 every 6, continued nebulized treatments, chest x-ray from today was reviewed, shows evidence of congestive heart failure, fluid overload. She is already receiving her home dose Bumex 2 mg by mouth twice a day. We will give an additional dose of Bumex IV. Continue weaning FiO2, patient reports improvement in terms of dyspnea and wheezing. I performed a history & physical examination of the patient and discussed their management with my nurse practitioner, Cydney Hart. I reviewed the nurse practitioner's note and agree with the documented findings and plan of care. Lung sounds are positive for diffuse wheezes throughout the lung diana. The findings and the impression was discussed with the patient. I attest to the documentation by the nurse practitioner. Time with Patient: Greater than 30
[2017-04-16] MEDS: LORazepam 2 MG/ML INJ IV PRN ×2 (11:27→17:33)
[2017-04-16 12:27] LABS: Glucose,Whole Blood 138 mg/dL (75-99)
[2017-04-16 17:16] LABS: Glucose,Whole Blood 138 mg/dL (75-99)
[2017-04-16] MEDS: WARFARIN 5 MG TAB PO SCH (17:34)
[2017-04-16] MEDS: WARFARIN 2 MG TAB PO SCH (17:34)
--- NOTE | 2017-04-16 20:07 | P.PN ---
Subjective Progress Note Date: 04/16/17 Principal diagnosis: Respiratory failure 46-year-old female who is known to infectious disease service from prior hospitalization a few years ago. At that point in time she had pneumonia responded well to interventions. She has a known history of sarcoidosis diagnosed in 2014. She's been doing modestly well on her high-dose of steroid to 50 mg a day. At this time she is relating that she feels very poorly. She' s had progressive shortness of breath. She has cough or sputum production which is thin in nature. No hemoptysis. She has had progressively worsening shortness of breath over the last couple of days. She relates over the last 3 months there has been a decline of her status. But about a day before coming to hospitals when she noticed a marked change of her status. She was short of breath with all activities and started to feel like she was being smothered and was having some discomfort in her chest also. Eventually presented to the emergency center where she is on evidence of hypoxia because he has been admitted. She's been seen by pulmonary critical care and with lack of improvement has now undergone bronchoscopy with multiple specimens. This will help evaluate for underlying viral pneumonia as well as pneumocystis. Patient is improved today. Her high flow oxygen has been has been replaced with nasal cannula at 6 L She's feeling considerably better but still somewhat short of breath. Still having some right-sided pleuritic chest pain other than this feels better than yesterday. Denies further fevers or chills.this Objective - Vital Signs Vital signs: Vital Signs Temp 98.1 F 04/16/17 16:00 Pulse 79 04/16/17 20:01 Resp 50 H 04/16/17 18:00 BP 124/69 04/16/17 10:00 Pulse Ox 94 L 04/16/17 17:00 Intake & Output 04/16/17 04/16/17 04/17/17 06:59 18:59 06:59 Intake Total 676.0 670 Output Total 575 1500 Balance 101.0 -830 Weight 113.7 kg Intake: IV 175.0 670 Piperacillin-Tazobactam 3 75.0 50 .375 gm In Dextrose/Water 1 50ml.bag @ 12.5 mls/hr IVPB Q8HR [facility] Rx#: [id number] Sodium Chloride 0.9% 1, 100 540 000 ml @ 20 mls/hr IV . Q24H [facility] Rx#:[id number] Vancomycin 1,500 mg In 80 Sodium Chloride 0.9% 250 ml @ 125 mls/hr IVPB Q8H [facility] Rx#:[id number] Intake, IV Titration 501 Amount Vancomycin 2,000 mg In 501 Sodium Chloride 0.9% 500 ml @ 167 mls/hr IVPB Q8H [facility] Rx#:[id number] Output: Urine 575 1500 Other: # Voids 1 # Bowel Movements 0 0 - Exam 46-year-old woman who looks older than her stated age is quite short of breath. His uncomfortable because she is so short of breath. Does have cough without significant sputum production HEENT: Anicteric conjunctiva are pink and moist nasal mucosa grossly intact without significant lesions, there is no thrush. Edentulous Neck: The neck is supple without significant lymphadenopathy or thyromegaly. Lungs: They're symmetrical air entry however there are coarse crackles at the bases expiratory wheezes are heard no dullness or egophony Heart: Irregular with an audible S1 and S2 soft S4. There is no significant murmur click or rub, PMI was nondisplaced. Abdomen: Obese, Positive bowel sounds soft and nontender without palpable masses or organomegaly. There was no guarding or rebound. Extremities: The upper extremities have excellent pulses they are symmetric, no significant petechiae or telangiectasia. No splinter hemorrhages were noted. The lower extremity is evidence of trace pedal edema, peripheral pulses are 2+ and symmetric. Skin he has no sick an open lesions or rashes Neuro: Awake alert oriented to person place and time. There are no acute new gross focal sensory motor deficits. Patient is very anxious. - Labs CBC & Chem 7: 04/16/17 04:54 04/16/17 04:54 Labs: Abnormal Lab Results - Last 24 Hours (Table) 04/15/17 04/16/17 04/16/17 Range/Units 20:48 04:54 04:54 WBC 12.0 H (3.8-10.6) k/uL Neutrophils # 10.3 H (1.3-7.7) k/uL Lymphocytes # 0.7 L (1.0-4.8) k/uL PT (9.0-12.0) sec INR (<1.2) Carbon Dioxide 34 H (22-30) mmol/L Glucose 196 H (74-99) mg/dL POC Glucose (mg/dL) 197 H (75-99) mg/dL Calcium 8.3 L (8.4-10.2) mg/dL Magnesium 2.4 H (1.6-2.3) mg/dL 04/16/17 04/16/17 04/16/17 Range/Units 04:54 07:20 12:25 WBC (3.8-10.6) k/uL Neutrophils # (1.3-7.7) k/uL Lymphocytes # (1.0-4.8) k/uL PT 16.2 H (9.0-12.0) sec INR 1.8 H (<1.2) Carbon Dioxide (22-30) mmol/L Glucose (74-99) mg/dL POC Glucose (mg/dL) 157 H 138 H (75-99) mg/dL Calcium (8.4-10.2) mg/dL Magnesium (1.6-2.3) mg/dL 04/16/17 Range/Units 17:14 WBC (3.8-10.6) k/uL Neutrophils # (1.3-7.7) k/uL Lymphocytes # (1.0-4.8) k/uL PT (9.0-12.0) sec INR (<1.2) Carbon Dioxide (22-30) mmol/L Glucose (74-99) mg/dL POC Glucose (mg/dL) 138 H (75-99) mg/dL Calcium (8.4-10.2) mg/dL Magnesium (1.6-2.3) mg/dL Microbiology - Last 24 Hours (Table) 04/12/17 06:00 Gram Stain - Final Sputum Sputum Culture - Preliminary Methicillin resist S. aureus Lou albicans 04/13/17 13:48 Fungal Culture - Preliminary Bronchial Washings - Right Lou albicans 04/13/17 13:48 Gram Stain - Preliminary Bronchial Washings - Right Bronchial Washings Culture - Preliminary Presumptive Staph aureus Lou albicans Laboratory Results WBC 12.0 k/uL (3.8-10.6) H 04/16/17 04:54 RBC 4.23 m/uL (3.80-5.40) 04/16/17 04:54 Hgb 13.4 gm/dL (11.4-16.0) 04/16/17 04:54 Hct 40.9 % (34.0-46.0) 04/16/17 04:54 MCV 96.8 fL (80.0-100.0) 04/16/17 04:54 MCH 31.8 pg (25.0-35.0) 04/16/17 04:54 MCHC 32.9 g/dL (31.0-37.0) 04/16/17 04:54 RDW 14.2 % (11.5-15.5) 04/16/17 04:54 Plt Count 256 k/uL (150-450) 04/16/17 04:54 Neutrophils % 86 % 04/16/17 04:54 Neutrophils % (Manual) 58 % 04/15/17 06:00 Band Neutrophils % 11 % 04/15/17 06:00 Lymphocytes % 6 % 04/16/17 04:54 Lymphocytes % (Manual) 21 % 04/15/17 06:00 Monocytes % 6 % 04/16/17 04:54 Monocytes % (Manual) 9 % 04/15/17 06:00 Eosinophils % 1 % 04/16/17 04:54 Eosinophils % (Manual) 1 % 04/15/17 06:00 Basophils % 1 % 04/16/17 04:54 Neutrophils # 10.3 k/uL (1.3-7.7) H 04/16/17 04:54 Neutrophils # (Manual) 8.10 k/uL (1.3-7.7) H 04/15/17 06:00 Lymphocytes # 0.7 k/uL (1.0-4.8) L 04/16/17 04:54 Lymphocytes # (Manual) 2.48 k/uL (1.0-4.8) 04/15/17 06:00 Monocytes # 0.7 k/uL (0-1.0) 04/16/17 04:54 Monocytes # (Manual) 1.06 k/uL (0-1.0) H 04/15/17 06:00 Eosinophils # 0.1 k/uL (0-0.7) 04/16/17 04:54 Eosinophils # (Manual) 0.12 k/uL (0-0.7) 04/15/17 06:00 Basophils # 0.2 k/uL (0-0.2) 04/16/17 04:54 Nucleated RBCs 0 /100 WBC (0-0) 04/15/17 06:00 Manual Slide Review Performed 04/15/17 06:00 Polychromasia Present 04/15/17 06:00 Anisocytosis (manual) Present 04/15/17 06:00 Macrocytosis Slight 04/12/17 04:55 PT 16.2 sec (9.0-12.0) H 04/16/17 04:54 INR 1.8 (<1.2) H 04/16/17 04:54 APTT 25.8 sec (22.0-30.0) 04/16/17 04:54 Sample Site LRA 04/11/17 10:18 ABG pH 7.46 (7.35-7.45) H 04/11/17 10:18 ABG pCO2 36 mmHg (35-45) 04/11/17 10:18 ABG pO2 63 mmHg (83-108) L 04/11/17 10:18 ABG HCO3 25 mmol/L (21-25) 04/11/17 10:18 ABG Total CO2 26 mmol/L (19-24) H 04/11/17 10:18 ABG O2 Saturation 93.3 % (94-97) L 04/11/17 10:18 ABG Base Excess 1.7 mmol/L 04/11/17 10:18 Yohan Test Yes 04/11/17 10:18 FiO2 55 % 04/11/17 10:18 Sodium 139 mmol/L (137-145) 04/16/17 04:54 Potassium 4.3 mmol/L (3.5-5.1) 04/16/17 04:54 Chloride 99 mmol/L (98-107) 04/16/17 04:54 Carbon Dioxide 34 mmol/L (22-30) H 04/16/17 04:54 Anion Gap 6 mmol/L 04/16/17 04:54 BUN 15 mg/dL (7-17) 04/16/17 04:54 Creatinine 0.60 mg/dL (0.52-1.04) 04/16/17 04:54 Est GFR (MDRD) Af Amer >60 (>60 ml/min/1.73 sqM) 04/16/17 04:54 Est GFR (MDRD) Non-Af >60 (>60 ml/min/1.73 sqM) 04/16/17 04:54 Glucose 196 mg/dL (74-99) H 04/16/17 04:54 POC Glucose (mg/dL) 138 mg/dL (75-99) H 04/16/17 17:14 POC Glu Teacher Learning Disabled ID Kait Vázquez 04/16/17 17:[address] Glu mg/dL 105 04/10/17 16:35 Hemoglobin A1c 5.3 % (4.0-6.0) 04/10/17 16:35 Calcium 8.3 mg/dL (8.4-10.2) L 04/16/17 04:54 Phosphorus 2.9 mg/dL (2.5-4.5) 04/16/17 04:54 Magnesium 2.4 mg/dL (1.6-2.3) H 04/16/17 04:54 Total Bilirubin 0.5 mg/dL (0.2-1.3) 04/15/17 06:00 AST 26 U/L (14-36) 04/15/17 06:00 ALT 37 U/L (9-52) 04/15/17 06:00 Alkaline Phosphatase 63 U/L (38-126) 04/15/17 06:00 Total Creatine Kinase 70 U/L (30-135) 04/10/17 16:35 CK-MB (CK-2) 0.8 ng/mL (0.0-2.4) 04/10/17 16:35 CK-MB (CK-2) Rel Index 1.1 04/10/17 16:35 Troponin I <0.012 ng/mL (0.000-0.034) 04/10/17 16:35 Total Protein 5.8 g/dL (6.3-8.2) L 04/15/17 06:00 Albumin 3.1 g/dL (3.5-5.0) L 04/15/17 06:00 Urine Color Yellow 04/10/17 16:35 Urine Appearance Cloudy (Clear) H 04/10/17 16:35 Urine pH 6.5 (5.0-8.0) 04/10/17 16:35 Ur Specific [place] 1.030 (1.001-1.035) 04/10/17 16:35 Urine Protein Trace (Negative) H 04/10/17 16:35 Urine Glucose (UA) 1+ (Negative) H 04/10/17 16:35 Urine Ketones Negative (Negative) 04/10/17 16:35 Urine Blood Negative (Negative) 04/10/17 16:35 Urine Nitrite Negative (Negative) 04/10/17 16:35 Urine Bilirubin Negative (Negative) 04/10/17 16:35 Urine Urobilinogen <2.0 mg/dL (<2.0) 04/10/17 16:35 Ur Leukocyte Esterase Negative (Negative) 04/10/17 16:35 Urine RBC 1 /hpf (0-5) 04/10/17 16:35 Urine WBC 2 /hpf (0-5) 04/10/17 16:35 Ur Squamous Epith Cells 10 /hpf (0-4) H 04/10/17 16:35 Hyaline Casts 1 /lpf (0-2) 04/10/17 16:35 Urine Mucus Rare /hpf (None) H 04/10/17 16:35 Fluid Source Bronchial Wash 04/13/17 13:48 Fluid Color Colorless 04/13/17 13:48 Fluid Appearance Cloudy 04/13/17 13:48 Fluid RBC 940 /uL 04/13/17 13:48 Fluid Nucleated Cells 400 /uL 04/13/17 13:48 Fluid Mononuclear WBCs 100 % 04/13/17 13:48 Vancomycin Trough 9.3 ug/mL 04/15/17 20:49 Influenza Type A RNA Not Detected (Not Detectd) 04/10/17 23:00 Influenza Type B (PCR) Not Detected (Not Detectd) 04/10/17 23:00 Urine Legionella Ag Not detected (Not detected) 04/12/17 19:09 Mycoplasma pneumon IgG 0.62 INDEX (<=0.90) 04/12/17 04:55 Mycoplasma pneumon IgM 0.58 INDEX (<=0.90) 04/12/17 04:55 Virus Source See Below 04/13/17 13:48 Viral Test See Below 04/13/17 13:48 Virus Analysis Interp See Below 04/13/17 13:48 Miscellaneous Test Mycoplasma pneum,PCR 04/13/17 13:48 Misc Test Result See comment 04/13/17 13:48 Assessment and Plan (1) Multifocal pneumonia Narrative/Plan: 46-year-old female presents to Hospital feeling very poorly over just about a days timeframe. Was having some decline over status of the last 3 months. Was hospitalized in March did leave AMA. She now is profoundly short of breath feeling very poorly. She has significant wheezing cough that has been persistent. Some sputum production is occurring. No hemoptysis. She' s been seen by the glassware selector and his contemplation for bronchoscopy. I believe this would be helpful to diagnose pneumocystis if it is occurring and also a deep specimen can be obtained for comprehensive viral studies given the current multiple viruses circulate in the community causing significant pulmonary disease. Is receiving the ICU protocol of piperacillin tazobactam and Levaquin. If there is any worsening of her status would then add intravenous Bactrim. This should give us coverage for pneumocystis as well as for the possibility of MRSA given that there seems to be a remote history although we have no positive cultures for MRSA to her multiple recent hospitalizations. Her prognosis is somewhat poor given her progressive pulmonary disease, her inability to stop smoking and her obesity. As noted pulmonary has performed bronchoscopy. Hopefully these deep specimens will help differentiate virus from pneumocystis versus other gram-negative pathogens of pneumonia in this high risk patient. Laboratories have been reviewed. And although the lab is showing evidence of gram stain with gram-negative bacilli the cultures are now showing evidence of staph aureus . Cultures been finalizes MRSA. Antimicrobial therapy is no streamlined to only vancomycin. No evidence of any underlying virus or pneumocystis. We'll need outpatient intravenous antibiotic therapy to complete the treatment of her MRSA pneumonia. Current Visit: Yes Status: Acute Code(s): J18.9 - PNEUMONIA, UNSPECIFIED ORGANISM SNOMED Code(s): 864718575 (2) Sarcoidosis Current Visit: No Status: Acute Code(s): D86.9 - SARCOIDOSIS, UNSPECIFIED SNOMED Code(s): 24238227 (3) COPD (chronic obstructive pulmonary disease) Current Visit: Yes Status: Acute Code(s): J44.9 - CHRONIC OBSTRUCTIVE PULMONARY DISEASE, UNSPECIFIED SNOMED Code(s): 67354218
[2017-04-16] MEDS: MIRTAZAPINE 45 MG TABLET PO SCH (21:20)
[2017-04-16] MEDS: MONTELUKAST 10 MG TAB PO SCH (21:20)
[2017-04-16 21:31] LABS: Glucose,Whole Blood 214 mg/dL (75-99)
--- NOTE | 2017-04-16 23:32 | PN ---
PROGRESS NOTE SUBJECTIVE: The patient remains in ICU. She remains doing better. FiO2 is 35%. Air flow of 40 L/minute. She has Staph aureus, Lou albicans. She remains on Levaquin, Zosyn, vancomycin. She remains on Bumex 2 mg by mouth twice a day. Blood pressure 124/69, pulse 70s to 80s, respiratory -16, temp 98.7, O2 92%, white count 12, hemoglobin was 13.4. ASSESSMENT: 1. Acute on chronic hypoxemic respiratory failure, COPD exacerbation, pulmonary fibrosis, MRSA pneumonia, which is improved with IV vancomycin. 2. History of sarcoid. 3. History of pulmonary embolism. 4. Nicotine addiction. Continue with IV vancomycin and multiple antibiotics which improved the patient's breathing. Continued to improve as patient is greatly improved. MMODL / IJN: [id number] /
[2017-04-17] MEDS: HYDROmorphone 2 MG/ML 1 ML SYRINGE IVP PRN ×11 (00:32→23:09)
[2017-04-17] MEDS: methylPREDNISolone SOD SUCCI 125 MG/2 ML VIAL IV SCH ×5 (00:32→23:08)
[2017-04-17] MEDS: CHLORPHEN-HYDROcod 8-10mg/5ml 5 ML ORAL.SYRG PO SCH ×2 (03:32→16:21)
[2017-04-17] MEDS: LORazepam 2 MG/ML INJ IV PRN ×4 (04:15→23:10)
[2017-04-17 04:37] LABS: Basophils # (A) 0.1 k/uL (0-0.2); Basophils % (A) 1 %; Eosinophils # (A) 0.1 k/uL (0-0.7); Eosinophils % (A) 0 %; HCT 43.2 % (34.0-46.0); HGB 13.7 gm/dL (11.4-16.0); Lymphocytes # (A) 1.2 k/uL (1.0-4.8); Lymphocytes % (A) 8 %; MCH 30.7 pg (25.0-35.0); MCHC 31.6 g/dL (31.0-37.0); MCV 97.1 fL (80.0-100.0); Mean Platelet Volume 6.9; Monocytes # (A) 1.1 k/uL (0-1.0); Monocytes % (A) 7 %; Neutrophils % (A) 83 %; Platelet Count 307 k/uL (150-450); RBC 4.45 m/uL (3.80-5.40); RDW 13.4 % (11.5-15.5); WBC 15.8 k/uL (3.8-10.6)
[2017-04-17 04:43] LABS: INR 1.7 (<1.2); Prothrombin Time 15.5 sec (9.0-12.0)
[2017-04-17 04:44] LABS: Partial Thromboplastin Time 26.1 sec (22.0-30.0)
[2017-04-17 04:48] LABS: ALT 40 U/L (9-52); Albumin 3.2 g/dL (3.5-5.0); Alkaline Phosphatase 58 U/L (38-126); Anion Gap 6 mmol/L; Blood Urea Nitrogen 15 mg/dL (7-17); Calcium 8.5 mg/dL (8.4-10.2); Carbon Dioxide 35 mmol/L (22-30); Chloride 97 mmol/L (98-107); Glucose 188 mg/dL (74-99); Magnesium 2.3 mg/dL (1.6-2.3); Phosphorus 3.3 mg/dL (2.5-4.5); Potassium 3.8 mmol/L (3.5-5.1); Sodium 138 mmol/L (137-145); Total Bilirubin 0.2 mg/dL (0.2-1.3); Total Protein 5.8 g/dL (6.3-8.2)
[2017-04-17 04:55] LABS: AST 14 U/L (14-36)
[2017-04-17] MEDS ORDERED: VANCOMYCIN TROUGH DUE 1 EACH MISC MISCELLANE ONE (05:00)
[2017-04-17] MEDS ORDERED: Potassium Replacement Protocol 1 EACH MISC MISCELLANE PRN (05:26)
[2017-04-17] MEDS ORDERED: POTASSIUM CHLORIDE ER 20 MEQ TAB.ER PO SCH (06:00)
[2017-04-17] MEDS: diphenhydrAMINE 50 MG/ML 1 ML VIAL IVP PRN ×2 (06:26→21:04)
[2017-04-17] MEDS: VANCOMYCIN 2,000 MG in SODIUM CHLORIDE 0.9% 500 ML IVPB SCH ×3 (06:46→21:05)
[2017-04-17 07:23] LABS: Glucose,Whole Blood 187 mg/dL (75-99)
[2017-04-17] MEDS: IPRATROPIUM-ALBUTEROL 3 ML NEB INHALATION SCH ×4 (07:37→21:06)
[2017-04-17] MEDS: FORMOTEROL FUMARATE 20 MCG/2 ML NEBU INHALATION SCH (07:37)
[2017-04-17] MEDS: BUDESONIDE 1 MG/2 ML NEBU INHALATION SCH (07:37)
--- NOTE | 2017-04-17 08:20 | P.PN ---
Subjective Progress Note Date: 04/17/17 Principal diagnosis: Respiratory failure Progress note dated 04/17/2017 This is a 46-year-old female with a diagnosis of acute on chronic hypoxemic respiratory failure secondary to sarcoidosis COPD pulmonary fibrosis and possibly pneumonia. The patient is doing much much better. The patient has been weaned down to about 3 L by nasal cannula. She is receiving IV of saline at 20 mL an hour. The patient could be transferred to the general medical floor. The patient does have a history of a COPD exacerbation with admission in March 2017. In addition, the patient has a history of recent pneumonia sarcoidosis confirmed by lung biopsy at [facility] back in 2014 a previous history of PE E at 2011 and 2015, DVT T addiction obesity anxiety CAD/ IN MRSA pneumonia respiratory failure bipolar disorder degenerative disc disease hypertension hyperlipidemia and fibromyalgia. The patient also underwent bronchoscopy and BAL on April 13. It was positive for presumptive staph and Lou albicans. Clinically again, the patient is doing much much better. Objective - Vital Signs Vital signs: Vital Signs Temp 98.4 F 04/17/17 03:39 Pulse 88 04/17/17 08:08 Resp 22 04/17/17 03:39 BP 128/78 04/17/17 03:39 Pulse Ox 94 L 04/17/17 07:40 Intake & Output 04/16/17 04/17/17 04/17/17 18:59 06:59 18:59 Intake Total 670 1070 Output Total 1500 1000 Balance -830 70 Weight 113.4 kg Intake: IV 670 570 Piperacillin-Tazobactam 3 50 50 .375 gm In Dextrose/Water 1 50ml.bag @ 12.5 mls/hr IVPB Q8HR [facility] Rx#: [id number] Sodium Chloride 0.9% 1, 540 520 000 ml @ 20 mls/hr IV . Q24H [facility] Rx#:[id number] Vancomycin 1,500 mg In 80 Sodium Chloride 0.9% 250 ml @ 125 mls/hr IVPB Q8H [facility] Rx#:[id number] Intake, IV Titration 500 Amount Vancomycin 2,000 mg In 500 Sodium Chloride 0.9% 500 ml @ 167 mls/hr IVPB Q8H [facility] Rx#:[id number] Output: Urine 1500 1000 Other: # Voids 1 # Bowel Movements 0 1 - Exam No acute distress, oriented 3. Nasal O2 in place HEENT examination is grossly unremarkable. Mucous membranes are moist. No oral lesions. Neck supple. Full range of motion. No adenopathy thyromegaly or neck vein distention. Cardiovascular examination reveals regular rhythm rate. S1-S2 normal. No S3 or S4. No discernible murmur noted. Lungs reveal diffuse bilateral breath sounds. Breath sounds are diminished. Some coarse expiratory rhonchi. A few scattered crackles. No wheezes.. Abdomen soft bowel sounds are heard. No masses or tenderness. Extremities are intact. No cyanosis clubbing or edema. Skin is without rash or lesion. Neurologic examination is brief but nonfocal. - Labs CBC & Chem 7: 04/17/17 04:24 04/17/17 04:24 Labs: Abnormal Lab Results - Last 24 Hours (Table) 04/16/17 04/16/17 04/16/17 Range/Units 12:25 17:14 21:28 WBC (3.8-10.6) k/uL Neutrophils # (1.3-7.7) k/uL Monocytes # (0-1.0) k/uL PT (9.0-12.0) sec INR (<1.2) Chloride (98-107) mmol/L Carbon Dioxide (22-30) mmol/L Glucose (74-99) mg/dL POC Glucose (mg/dL) 138 H 138 H 214 H (75-99) mg/dL Total Protein (6.3-8.2) g/dL Albumin (3.5-5.0) g/dL 04/17/17 04/17/17 04/17/17 Range/Units 04:24 04:24 04:24 WBC 15.8 H (3.8-10.6) k/uL Neutrophils # 13.0 H (1.3-7.7) k/uL Monocytes # 1.1 H (0-1.0) k/uL PT 15.5 H (9.0-12.0) sec INR 1.7 H (<1.2) Chloride 97 L (98-107) mmol/L Carbon Dioxide 35 H (22-30) mmol/L Glucose 188 H (74-99) mg/dL POC Glucose (mg/dL) (75-99) mg/dL Total Protein 5.8 L (6.3-8.2) g/dL Albumin 3.2 L (3.5-5.0) g/dL 04/17/17 Range/Units 07:22 WBC (3.8-10.6) k/uL Neutrophils # (1.3-7.7) k/uL Monocytes # (0-1.0) k/uL PT (9.0-12.0) sec INR (<1.2) Chloride (98-107) mmol/L Carbon Dioxide (22-30) mmol/L Glucose (74-99) mg/dL POC Glucose (mg/dL) 187 H (75-99) mg/dL Total Protein (6.3-8.2) g/dL Albumin (3.5-5.0) g/dL Microbiology - Last 24 Hours (Table) 04/12/17 06:00 Gram Stain - Final Sputum Sputum Culture - Preliminary Methicillin resist S. aureus Lou albicans 04/13/17 13:48 Fungal Culture - Preliminary Bronchial Washings - Right Lou albicans 04/13/17 13:48 Gram Stain - Preliminary Bronchial Washings - Right Bronchial Washings Culture - Preliminary Presumptive Staph aureus Lou albicans Assessment and Plan (1) Fibromyalgia Current Visit: Yes Status: Acute Code(s): M79.7 - FIBROMYALGIA SNOMED Code (s): 879567125 (2) Bipolar disorder Current Visit: Yes Status: Acute Code(s): F31.9 - BIPOLAR DISORDER, UNSPECIFIED SNOMED Code(s): 50003474 (3) MRSA pneumonia Current Visit: Yes Status: Acute Code(s): J15.212 - PNEUMONIA DUE TO METHICILLIN RESISTANT STAPHYLOCOCCUS AUREUS SNOMED Code(s): 403787526620160 (4) Hypoxemic respiratory failure, chronic Current Visit: Yes Status: Acute Code(s): J96.11 - CHRONIC RESPIRATORY FAILURE WITH HYPOXIA SNOMED Code(s): 512753765 (5) Acute exacerbation of chronic bronchitis Current Visit: Yes Status: Acute Code(s): J20.9 - ACUTE BRONCHITIS, UNSPECIFIED SNOMED Code(s): 796252645 (6) COPD (chronic obstructive pulmonary disease) Current Visit: Yes Status: Acute Code(s): J44.9 - CHRONIC OBSTRUCTIVE PULMONARY DISEASE, UNSPECIFIED SNOMED Code(s): 86854112 (7) History of deep venous thrombosis or pulmonary embolus Current Visit: Yes Status: Acute Priority: High Code(s): RWT8829 - SNOMED Code(s): 127878128 (8) Hypoxia Current Visit: Yes Status: Acute Code(s): R09.02 - HYPOXEMIA SNOMED Code(s ): 769072506 (9) Multifocal pneumonia Current Visit: Yes Status: Acute Code(s): J18.9 - PNEUMONIA, UNSPECIFIED ORGANISM SNOMED Code(s): 186413444 (10) COPD exacerbation Current Visit: No Status: Acute Code(s): J44.1 - CHRONIC OBSTRUCTIVE PULMONARY DISEASE W (ACUTE) EXACERBATION SNOMED Code(s): 299019121805444 (11) Deep vein thrombosis of lower extremity Current Visit: No Status: Acute Code(s): I82.409 - ACUTE EMBOLISM AND THOMBOS UNSP DEEP VN UNSP LOWER EXTREMITY SNOMED Code(s): 520709212 (12) Hypertension Current Visit: No Status: Acute Code(s): I10 - ESSENTIAL (PRIMARY) HYPERTENSION SNOMED Code(s): 58167814 (13) Morbid obesity Current Visit: No Status: Acute Code(s): E66.01 - MORBID (SEVERE) OBESITY DUE TO EXCESS CALORIES SNOMED Code(s): 354645740 (14) Pneumonia Current Visit: No Status: Acute Code(s): J18.9 - PNEUMONIA, UNSPECIFIED ORGANISM SNOMED Code(s): 372986783 (15) Sarcoidosis Current Visit: No Status: Acute Code(s): D86.9 - SARCOIDOSIS, UNSPECIFIED SNOMED Code(s): 82297157 Plan: Plan dated 04/17/2017 The patient's current antibiotics include Levaquin and Zosyn and vancomycin. They probably can be D escalated a bit. We'll review the microbiology. We'll also look through all the other medications and make changes were appropriate. The patient could probably on be transferred out of the ICU. We'll give the patient some oral prednisone. The patient may benefit also from additional diuretic. Additional recommendations and suggestions are forthcoming. We will continue to follow. Time with Patient: Greater than 30
[2017-04-17] MEDS: INSULIN ASPART 100 UNIT/ML 1 ML 10 ML VIAL SQ SCH ×4 (08:25→21:56)
[2017-04-17] MEDS: ENOXAPARIN 80 MG/0.8 ML SYRINGE SQ SCH ×2 (08:29→19:44)
[2017-04-17] MEDS: BUMETANIDE 1 MG TAB PO SCH ×2 (08:30→19:44)
[2017-04-17] MEDS: PANTOPRAZOLE 40 MG TABLET PO SCH (08:30)
[2017-04-17] MEDS: FLUoxetine HCL 20 MG CAP PO SCH (08:30)
[2017-04-17] MEDS: lamoTRIgine 100 MG TAB PO SCH (08:30)
[2017-04-17] MEDS: POTASSIUM CHLORIDE ER 20 MEQ TAB.ER PO SCH (08:31)
[2017-04-17] MEDS: METOPROLOL TARTRATE 50 MG TAB PO SCH ×2 (08:31→19:45)
[2017-04-17] MEDS: PREGABALIN 100 MG CAP PO SCH ×2 (08:52→19:45)
[2017-04-17] MEDS: ALPRAZolam 0.5 MG TAB PO SCH ×2 (08:52→19:45)
--- NOTE | 2017-04-17 09:33 | PN ---
PROGRESS NOTE SUBJECTIVE: This is a white female with MRSA type pneumonia. She is on triple antibiotic IV therapy. PICC line was placed for home IV antibiotics. She will be sent home in the next 24 to 48 hours on a PICC line and IV antibiotics per Dr. Lott recommendation. Her breathing is improving, remains in ICU on selective overflow. Sating in the mid 90s on 4 L. Her normal oxygen level at home is 4 L. PSYCH: Fair mood and affect. CARDIOVASCULAR: S1, S2. LUNGS: Show some mild scattered rhonchi and wheezes improved. GI: Soft. ENDOCRINE: BMI is over 40. ASSESSMENT: 1. Methicillin-resistant Staphylococcus aureus-type pneumonia. 2. Acute hypoxemic respiratory distress secondary to methicillin-resistant Staphylococcus aureus pneumonia. 3. Sarcoidosis. 4. Pulmonary fibrosis. 5. Acute on chronic respiratory failure. PLAN: Await Infectious Disease and Pulmonary clearance for discharge. Remain on outpatient PICC line antibiotics for 10 days. MMODL / IJN: [id number] /
[2017-04-17] MEDS: Acetaminophen-Codeine 300-30mg TAB PO PRN ×2 (10:38→16:45)
[2017-04-17 11:59] LABS: Glucose,Whole Blood 172 mg/dL (75-99)
[2017-04-17] MEDS: NICOTINE 7MG/24HR PATCH TRANSDERM SCH ×2 (16:15→16:38)
[2017-04-17] MEDS: SODIUM CHLORIDE 0.9% 1,000 ML IV SCH (16:17)
[2017-04-17 16:37] LABS: Glucose,Whole Blood 172 mg/dL (75-99)
[2017-04-17 16:44] VITALS: RESP 18
[2017-04-17] MEDS: WARFARIN 5 MG TAB PO SCH (18:05)
[2017-04-17] MEDS: WARFARIN 2 MG TAB PO SCH (18:05)
[2017-04-17] MEDS: MIRTAZAPINE 45 MG TABLET PO SCH (19:45)
[2017-04-17] MEDS: MONTELUKAST 10 MG TAB PO SCH (19:45)
[2017-04-17] MEDS: SYMBICORT 160-4.5 MCG INHALER INHALATION SCH (21:06)
--- NOTE | 2017-04-17 21:35 | P.PN ---
Subjective Progress Note Date: 04/17/17 Principal diagnosis: Respiratory failure 46-year-old female who is known to infectious disease service from prior hospitalization a few years ago. At that point in time she had pneumonia responded well to interventions. She has a known history of sarcoidosis diagnosed in 2014. She's been doing modestly well on her high-dose of steroid to 50 mg a day. At this time she is relating that she feels very poorly. She' s had progressive shortness of breath. She has cough or sputum production which is thin in nature. No hemoptysis. She has had progressively worsening shortness of breath over the last couple of days. She relates over the last 3 months there has been a decline of her status. But about a day before coming to hospitals when she noticed a marked change of her status. She was short of breath with all activities and started to feel like she was being smothered and was having some discomfort in her chest also. Eventually presented to the emergency center where she is on evidence of hypoxia because he has been admitted. She's been seen by pulmonary critical care and with lack of improvement has now undergone bronchoscopy with multiple specimens. This will help evaluate for underlying viral pneumonia as well as pneumocystis. Patient is improved today. Her high flow oxygen has been has been replaced with nasal cannula at 6 L She's feeling considerably better but still somewhat short of breath. Still having some right-sided pleuritic chest pain other than this feels better than yesterday. Denies further fevers or chills.this Objective - Vital Signs Vital signs: Vital Signs Temp 98.9 F 04/17/17 19:40 Pulse 81 04/17/17 21:24 Resp 18 04/17/17 19:40 BP 102/57 04/17/17 19:40 Pulse Ox 96 04/17/17 21:11 Intake & Output 04/17/17 04/17/17 04/18/17 06:59 18:59 06:59 Intake Total 1070 660 Output Total 1000 Balance 70 660 Weight 113.4 kg Intake: IV 570 160 Piperacillin-Tazobactam 3 50 .375 gm In Dextrose/Water 1 50ml.bag @ 12.5 mls/hr IVPB Q8HR AGNIESZKA Rx#: [id number] Sodium Chloride 0.9% 1, 520 160 000 ml @ 20 mls/hr IV . Q24H AGNIESZKA Rx#:[id number] Intake, IV Titration 500 500 Amount Vancomycin 2,000 mg In 500 500 Sodium Chloride 0.9% 500 ml @ 167 mls/hr IVPB Q8H AGNIESZKA Rx#:[id number] Output: Urine 1000 Other: Voiding Method Indwelling Catheter Toilet # Voids 1 3 # Bowel Movements 1 - Exam 46-year-old woman who looks older than her stated age is is now much less short of breath and much more comfortable HEENT: Anicteric conjunctiva are pink and moist nasal mucosa grossly intact without significant lesions, there is no thrush. Edentulous Neck: The neck is supple without significant lymphadenopathy or thyromegaly. Lungs: They're symmetrical air entry however there are coarse crackles at the bases expiratory wheezes are heard no dullness or egophony Heart: Irregular with an audible S1 and S2 soft S4. There is no significant murmur click or rub, PMI was nondisplaced. Abdomen: Obese, Positive bowel sounds soft and nontender without palpable masses or organomegaly. There was no guarding or rebound. Extremities: The upper extremities have excellent pulses they are symmetric, no significant petechiae or telangiectasia. No splinter hemorrhages were noted. The lower extremity is evidence of trace pedal edema, peripheral pulses are 2+ and symmetric. Skin he has no sick an open lesions or rashes Neuro: Awake alert oriented to person place and time. There are no acute new gross focal sensory motor deficits. - Labs CBC & Chem 7: 04/17/17 04:24 04/17/17 04:24 Labs: Abnormal Lab Results - Last 24 Hours (Table) 04/17/17 04/17/17 04/17/17 Range/Units 04:24 04:24 04:24 WBC 15.8 H (3.8-10.6) k/uL Neutrophils # 13.0 H (1.3-7.7) k/uL Monocytes # 1.1 H (0-1.0) k/uL PT 15.5 H (9.0-12.0) sec INR 1.7 H (<1.2) Chloride 97 L (98-107) mmol/L Carbon Dioxide 35 H (22-30) mmol/L Glucose 188 H (74-99) mg/dL POC Glucose (mg/dL) (75-99) mg/dL Total Protein 5.8 L (6.3-8.2) g/dL Albumin 3.2 L (3.5-5.0) g/dL 04/17/17 04/17/17 04/17/17 Range/Units 07:22 11:57 16:33 WBC (3.8-10.6) k/uL Neutrophils # (1.3-7.7) k/uL Monocytes # (0-1.0) k/uL PT (9.0-12.0) sec INR (<1.2) Chloride (98-107) mmol/L Carbon Dioxide (22-30) mmol/L Glucose (74-99) mg/dL POC Glucose (mg/dL) 187 H 172 H 172 H (75-99) mg/dL Total Protein (6.3-8.2) g/dL Albumin (3.5-5.0) g/dL Microbiology - Last 24 Hours (Table) 04/12/17 06:00 Gram Stain - Final Sputum Sputum Culture - Final Methicillin resist S. aureus Lou albicans 04/13/17 13:48 Gram Stain - Final Bronchial Washings - Right Bronchial Washings Culture - Final Methicillin resist S. aureus Lou albicans Laboratory Results WBC 15.8 k/uL (3.8-10.6) H 04/17/17 04:24 RBC 4.45 m/uL (3.80-5.40) 04/17/17 04:24 Hgb 13.7 gm/dL (11.4-16.0) 04/17/17 04:24 Hct 43.2 % (34.0-46.0) 04/17/17 04:24 MCV 97.1 fL (80.0-100.0) 04/17/17 04:24 MCH 30.7 pg (25.0-35.0) 04/17/17 04:24 MCHC 31.6 g/dL (31.0-37.0) 04/17/17 04:24 RDW 13.4 % (11.5-15.5) 04/17/17 04:24 Plt Count 307 k/uL (150-450) 04/17/17 04:24 Neutrophils % 83 % 04/17/17 04:24 Neutrophils % (Manual) 58 % 04/15/17 06:00 Band Neutrophils % 11 % 04/15/17 06:00 Lymphocytes % 8 % 04/17/17 04:24 Lymphocytes % (Manual) 21 % 04/15/17 06:00 Monocytes % 7 % 04/17/17 04:24 Monocytes % (Manual) 9 % 04/15/17 06:00 Eosinophils % 0 % 04/17/17 04:24 Eosinophils % (Manual) 1 % 04/15/17 06:00 Basophils % 1 % 04/17/17 04:24 Neutrophils # 13.0 k/uL (1.3-7.7) H 04/17/17 04:24 Neutrophils # (Manual) 8.10 k/uL (1.3-7.7) H 04/15/17 06:00 Lymphocytes # 1.2 k/uL (1.0-4.8) 04/17/17 04:24 Lymphocytes # (Manual) 2.48 k/uL (1.0-4.8) 04/15/17 06:00 Monocytes # 1.1 k/uL (0-1.0) H 04/17/17 04:24 Monocytes # (Manual) 1.06 k/uL (0-1.0) H 04/15/17 06:00 Eosinophils # 0.1 k/uL (0-0.7) 04/17/17 04:24 Eosinophils # (Manual) 0.12 k/uL (0-0.7) 04/15/17 06:00 Basophils # 0.1 k/uL (0-0.2) 04/17/17 04:24 Nucleated RBCs 0 /100 WBC (0-0) 04/15/17 06:00 Manual Slide Review Performed 04/15/17 06:00 Polychromasia Present 04/15/17 06:00 Anisocytosis (manual) Present 04/15/17 06:00 Macrocytosis Slight 04/12/17 04:55 PT 15.5 sec (9.0-12.0) H 04/17/17 04:24 INR 1.7 (<1.2) H 04/17/17 04:24 APTT 26.1 sec (22.0-30.0) 04/17/17 04:24 Sample Site LRA 04/11/17 10:18 ABG pH 7.46 (7.35-7.45) H 04/11/17 10:18 ABG pCO2 36 mmHg (35-45) 04/11/17 10:18 ABG pO2 63 mmHg (83-108) L 04/11/17 10:18 ABG HCO3 25 mmol/L (21-25) 04/11/17 10:18 ABG Total CO2 26 mmol/L (19-24) H 04/11/17 10:18 ABG O2 Saturation 93.3 % (94-97) L 04/11/17 10:18 ABG Base Excess 1.7 mmol/L 04/11/17 10:18 Yohan Test Yes 04/11/17 10:18 FiO2 55 % 04/11/17 10:18 Sodium 138 mmol/L (137-145) 04/17/17 04:24 Potassium 3.8 mmol/L (3.5-5.1) 04/17/17 04:24 Chloride 97 mmol/L (98-107) L 04/17/17 04:24 Carbon Dioxide 35 mmol/L (22-30) H 04/17/17 04:24 Anion Gap 6 mmol/L 04/17/17 04:24 BUN 15 mg/dL (7-17) 04/17/17 04:24 Creatinine 0.70 mg/dL (0.52-1.04) 04/17/17 04:24 Est GFR (MDRD) Af Amer >60 (>60 ml/min/1.73 sqM) 04/17/17 04:24 Est GFR (MDRD) Non-Af >60 (>60 ml/min/1.73 sqM) 04/17/17 04:24 Glucose 188 mg/dL (74-99) H 04/17/17 04:24 POC Glucose (mg/dL) 172 mg/dL (75-99) H 04/17/17 16:33 POC Glu Materials Scientist ID Christi Mcpherson 04/17/17 16:[address] Glu mg/dL 105 04/10/17 16:35 Hemoglobin A1c 5.3 % (4.0-6.0) 04/10/17 16:35 Calcium 8.5 mg/dL (8.4-10.2) 04/17/17 04:24 Phosphorus 3.3 mg/dL (2.5-4.5) 04/17/17 04:24 Magnesium 2.3 mg/dL (1.6-2.3) 04/17/17 04:24 Total Bilirubin 0.2 mg/dL (0.2-1.3) 04/17/17 04:24 AST 14 U/L (14-36) 04/17/17 04:24 ALT 40 U/L (9-52) 04/17/17 04:24 Alkaline Phosphatase 58 U/L (38-126) 04/17/17 04:24 Total Creatine Kinase 70 U/L (30-135) 04/10/17 16:35 CK-MB (CK-2) 0.8 ng/mL (0.0-2.4) 04/10/17 16:35 CK-MB (CK-2) Rel Index 1.1 04/10/17 16:35 Troponin I <0.012 ng/mL (0.000-0.034) 04/10/17 16:35 Total Protein 5.8 g/dL (6.3-8.2) L 04/17/17 04:24 Albumin 3.2 g/dL (3.5-5.0) L 04/17/17 04:24 Urine Color Yellow 04/10/17 16:35 Urine Appearance Cloudy (Clear) H 04/10/17 16:35 Urine pH 6.5 (5.0-8.0) 04/10/17 16:35 Ur Specific [place] 1.030 (1.001-1.035) 04/10/17 16:35 Urine Protein Trace (Negative) H 04/10/17 16:35 Urine Glucose (UA) 1+ (Negative) H 04/10/17 16:35 Urine Ketones Negative (Negative) 04/10/17 16:35 Urine Blood Negative (Negative) 04/10/17 16:35 Urine Nitrite Negative (Negative) 04/10/17 16:35 Urine Bilirubin Negative (Negative) 04/10/17 16:35 Urine Urobilinogen <2.0 mg/dL (<2.0) 04/10/17 16:35 Ur Leukocyte Esterase Negative (Negative) 04/10/17 16:35 Urine RBC 1 /hpf (0-5) 04/10/17 16:35 Urine WBC 2 /hpf (0-5) 04/10/17 16:35 Ur Squamous Epith Cells 10 /hpf (0-4) H 04/10/17 16:35 Hyaline Casts 1 /lpf (0-2) 04/10/17 16:35 Urine Mucus Rare /hpf (None) H 04/10/17 16:35 Fluid Source Bronchial Wash 04/13/17 13:48 Fluid Color Colorless 04/13/17 13:48 Fluid Appearance Cloudy 04/13/17 13:48 Fluid RBC 940 /uL 04/13/17 13:48 Fluid Nucleated Cells 400 /uL 04/13/17 13:48 Fluid Mononuclear WBCs 100 % 04/13/17 13:48 Vancomycin Trough 17.2 ug/mL 04/17/17 04:24 Influenza Type A RNA Not Detected (Not Detectd) 04/10/17 23:00 Influenza Type B (PCR) Not Detected (Not Detectd) 04/10/17 23:00 Urine Legionella Ag Not detected (Not detected) 04/12/17 19:09 Mycoplasma pneumon IgG 0.62 INDEX (<=0.90) 04/12/17 04:55 Mycoplasma pneumon IgM 0.58 INDEX (<=0.90) 04/12/17 04:55 Virus Source See Below 04/13/17 13:48 Viral Test See Below 04/13/17 13:48 Virus Analysis Interp See Below 04/13/17 13:48 Miscellaneous Test Mycoplasma pneum,PCR 04/13/17 13:48 Misc Test Result See comment 04/13/17 13:48 Microbiology 04/12/17 06:00 Sputum Gram Stain - Final 04/12/17 06:00 Sputum Sputum Culture - Final Methicillin resist S. aureus Lou albicans 04/13/17 13:48 Bronchial Washings - Right Gram Stain - Final 04/13/17 13:48 Bronchial Washings - Right Bronchial Washings Culture - Final Methicillin resist S. aureus Lou albicans 04/13/17 13:48 Bronchial Washings - Right Fungal Culture - Preliminary Lou albicans 04/13/17 13:48 Bronchial Washings - Right Acid Fast Bacilli Smear - Final 04/13/17 13:48 Bronchial Washings - Right Acid Fast Bacilli Culture - Preliminary 04/10/17 16:35 Urine,Voided Urine Culture - Final Assessment and Plan (1) Multifocal pneumonia Narrative/Plan: 46-year-old female presents to Hospital feeling very poorly over just about a days timeframe. Was having some decline over status of the last 3 months. Was hospitalized in March did leave AMA. She now is profoundly short of breath feeling very poorly. She has significant wheezing cough that has been persistent. Some sputum production is occurring. No hemoptysis. She' s been seen by the ammonia nitrate operator and his contemplation for bronchoscopy. I believe this would be helpful to diagnose pneumocystis if it is occurring and also a deep specimen can be obtained for comprehensive viral studies given the current multiple viruses circulate in the community causing significant pulmonary disease. Is receiving the ICU protocol of piperacillin tazobactam and Levaquin. If there is any worsening of her status would then add intravenous Bactrim. This should give us coverage for pneumocystis as well as for the possibility of MRSA given that there seems to be a remote history although we have no positive cultures for MRSA to her multiple recent hospitalizations. Her prognosis is somewhat poor given her progressive pulmonary disease, her inability to stop smoking and her obesity. As noted pulmonary has performed bronchoscopy. Hopefully these deep specimens will help differentiate virus from pneumocystis versus other gram-negative pathogens of pneumonia in this high risk patient. Laboratories have been reviewed. And although the lab is showing evidence of gram stain with gram-negative bacilli the cultures are now showing evidence of staph aureus . Cultures been finalizes MRSA. Antimicrobial therapy is no streamlined to only vancomycin. No evidence of any underlying virus or pneumocystis. We'll need outpatient intravenous antibiotic therapy to complete the treatment of her MRSA pneumonia. PICC line is in place. Working on her outpatient antibiotic therapy. Current Visit: Yes Status: Acute Code(s): J18.9 - PNEUMONIA, UNSPECIFIED ORGANISM SNOMED Code(s): 935630429 (2) Sarcoidosis Current Visit: No Status: Acute Code(s): D86.9 - SARCOIDOSIS, UNSPECIFIED SNOMED Code(s): 46448177 (3) COPD (chronic obstructive pulmonary disease) Current Visit: Yes Status: Acute Code(s): J44.9 - CHRONIC OBSTRUCTIVE PULMONARY DISEASE, UNSPECIFIED SNOMED Code(s): 00750880
[2017-04-17 22:01] LABS: Glucose,Whole Blood 190 mg/dL (75-99)
[2017-04-18] MEDS: HYDROmorphone 2 MG/ML 1 ML SYRINGE IVP PRN ×5 (01:07→10:49)
[2017-04-18] MEDS: CHLORPHEN-HYDROcod 8-10mg/5ml 5 ML ORAL.SYRG PO SCH (04:16)
[2017-04-18] MEDS: VANCOMYCIN 2,000 MG in SODIUM CHLORIDE 0.9% 500 ML IVPB SCH (05:16)
[2017-04-18] MEDS: methylPREDNISolone SOD SUCCI 125 MG/2 ML VIAL IV SCH ×2 (05:16→10:52)
[2017-04-18] MEDS: diphenhydrAMINE 50 MG/ML 1 ML VIAL IVP PRN (05:21)
[2017-04-18 05:23] LABS: HCT 42.4 % (34.0-46.0); HGB 13.8 gm/dL (11.4-16.0); MCH 31.6 pg (25.0-35.0); MCHC 32.7 g/dL (31.0-37.0); MCV 96.6 fL (80.0-100.0); Mean Platelet Volume 6.8; Platelet Count 308 k/uL (150-450); RBC 4.39 m/uL (3.80-5.40); RDW 13.4 % (11.5-15.5); WBC 17.6 k/uL (3.8-10.6)
[2017-04-18 05:31] LABS: INR 1.8 (<1.2); Prothrombin Time 16.6 sec (9.0-12.0)
[2017-04-18 05:33] LABS: ALT 41 U/L (9-52); AST 15 U/L (14-36); Albumin 3.3 g/dL (3.5-5.0); Alkaline Phosphatase 60 U/L (38-126); Anion Gap 6 mmol/L; Blood Urea Nitrogen 18 mg/dL (7-17); Calcium 8.9 mg/dL (8.4-10.2); Carbon Dioxide 34 mmol/L (22-30); Chloride 97 mmol/L (98-107); Glucose 123 mg/dL (74-99); Magnesium 2.4 mg/dL (1.6-2.3); Phosphorus 3.8 mg/dL (2.5-4.5); Potassium 4.3 mmol/L (3.5-5.1); Sodium 137 mmol/L (137-145); Total Bilirubin 0.2 mg/dL (0.2-1.3); Total Protein 5.9 g/dL (6.3-8.2)
[2017-04-18 06:03] LABS: Glucose,Whole Blood 186 mg/dL (75-99)
[2017-04-18 06:07] LABS: Band Neutrophils % 7 %; Lymphocytes # (M) 2.11 k/uL (1.0-4.8); Monocytes # (M) 0.53 k/uL (0-1.0); Neutrophils % (M) 78 %; Nucleated Red Blood Cells 0 /100 WBC (0-0); Total Cells Counted 100
[2017-04-18] MEDS: PANTOPRAZOLE 40 MG TABLET PO SCH (06:27)
[2017-04-18] MEDS: INSULIN ASPART 100 UNIT/ML 1 ML 10 ML VIAL SQ SCH (06:27)
[2017-04-18] MEDS: LORazepam 2 MG/ML INJ IV PRN (06:35)
[2017-04-18] MEDS: SYMBICORT 160-4.5 MCG INHALER INHALATION SCH (07:31)
[2017-04-18] MEDS: IPRATROPIUM-ALBUTEROL 3 ML NEB INHALATION SCH ×2 (07:31→10:46)
[2017-04-18] MEDS: ENOXAPARIN 80 MG/0.8 ML SYRINGE SQ SCH (08:14)
[2017-04-18] MEDS: BUMETANIDE 1 MG TAB PO SCH (08:14)
[2017-04-18] MEDS: FLUoxetine HCL 20 MG CAP PO SCH (08:14)
[2017-04-18] MEDS: NICOTINE 7MG/24HR PATCH TRANSDERM SCH (08:15)
[2017-04-18] MEDS: METOPROLOL TARTRATE 50 MG TAB PO SCH (08:15)
[2017-04-18] MEDS: lamoTRIgine 100 MG TAB PO SCH (08:15)
[2017-04-18] MEDS: POTASSIUM CHLORIDE ER 20 MEQ TAB.ER PO SCH (08:15)
[2017-04-18] MEDS: ALPRAZolam 0.5 MG TAB PO SCH (08:18)
[2017-04-18] MEDS: PREGABALIN 100 MG CAP PO SCH (08:18)
[2017-04-18 11:08] VITALS: BMI 40.5
[2017-04-18 11:26] VITALS: BP 133/88; PULSE 77; TEMP 97.6
--- NOTE | 2017-04-18 11:30 | P.PN ---
Subjective Progress Note Date: 04/18/17 Principal diagnosis: Acute hypoxic respiratory failure secondary to sarcoidosis, COPD exacerbation, pulmonary fibrosis The patient is seen again today 04/18/2017 in follow-up on the selective care unit. She is awake and alert in no acute distress. She is breathing much easier today as compared to the earlier in the week. Her bronchial washings were positive for MRSA and Lou. She remains on vancomycin. PICC line is in place. Current white count 17.6. INR 1.8. Bicarbonate 34. She is maintaining O2 saturations in the mid 90s on 5 L/m per nasal cannula. She's afebrile. No tachycardia. No tachypnea. She is anxious to go home. Objective - Vital Signs Vital signs: Vital Signs Temp 98 F 04/18/17 08:00 Pulse 84 04/18/17 10:56 Resp 18 04/18/17 08:00 BP 129/82 04/18/17 08:00 Pulse Ox 95 04/18/17 08:00 Intake & Output 04/17/17 04/18/17 04/18/17 18:59 06:59 18:59 Intake Total 660 1040 Balance 660 1040 Weight 110.4 kg 110.4 kg Intake: IV 160 60 Sodium Chloride 0.9% 1, 160 60 000 ml @ 20 mls/hr IV . Q24H AGNIESZKA Rx#:[id number] Intake, IV Titration 500 500 Amount Vancomycin 2,000 mg In 500 500 Sodium Chloride 0.9% 500 ml @ 167 mls/hr IVPB Q8H [facility]IESZKA Rx#:[id number] Oral 480 Other: Voiding Method Indwelling Catheter Toilet Toilet # Voids 3 1 1 - Exam GENERAL EXAM: Obese. Alert, active, comfortable in no apparent distress. HEAD: Normocephalic. EYES: Normal reaction of pupils, equal size. NOSE: Clear with pink turbinates. THROAT: Crowding the posterior pharynx. No erythema or exudates. NECK: Short. No masses, no JVD. CHEST: No chest wall deformity. LUNGS: Equal air entry with faint crackles in the posterior bases, end expiratory wheeze. Diminished. CVS: S1 and S2 normal with no audible murmur, regular rhythm. ABDOMEN: No hepatosplenomegaly, normal bowel sounds, no guarding or rigidity. SPINE: No scoliosis or deformity SKIN: No rashes CENTRAL NERVOUS SYSTEM: No focal deficits, tone is normal in all 4 extremities. EXTREMITIES: There is no peripheral edema. No clubbing, no cyanosis. Peripheral pulses are intact. - Labs CBC & Chem 7: 04/18/17 05:10 04/18/17 05:10 Labs: Abnormal Lab Results - Last 24 Hours (Table) 04/17/17 04/17/17 04/17/17 Range/Units 11:57 16:33 21:05 WBC (3.8-10.6) k/uL Neutrophils # (Manual) (1.3-7.7) k/uL PT (9.0-12.0) sec INR (<1.2) Chloride (98-107) mmol/L Carbon Dioxide (22-30) mmol/L BUN (7-17) mg/dL Glucose (74-99) mg/dL POC Glucose (mg/dL) 172 H 172 H 190 H (75-99) mg/dL Magnesium (1.6-2.3) mg/dL Total Protein (6.3-8.2) g/dL Albumin (3.5-5.0) g/dL 04/18/17 04/18/17 04/18/17 Range/Units 05:10 05:10 05:10 WBC 17.6 H (3.8-10.6) k/uL Neutrophils # (Manual) 14.90 H (1.3-7.7) k/uL PT 16.6 H (9.0-12.0) sec INR 1.8 H (<1.2) Chloride 97 L (98-107) mmol/L Carbon Dioxide 34 H (22-30) mmol/L BUN 18 H (7-17) mg/dL Glucose 123 H (74-99) mg/dL POC Glucose (mg/dL) (75-99) mg/dL Magnesium 2.4 H (1.6-2.3) mg/dL Total Protein 5.9 L (6.3-8.2) g/dL Albumin 3.3 L (3.5-5.0) g/dL 04/18/17 Range/Units 05:58 WBC (3.8-10.6) k/uL Neutrophils # (Manual) (1.3-7.7) k/uL PT (9.0-12.0) sec INR (<1.2) Chloride (98-107) mmol/L Carbon Dioxide (22-30) mmol/L BUN (7-17) mg/dL Glucose (74-99) mg/dL POC Glucose (mg/dL) 186 H (75-99) mg/dL Magnesium (1.6-2.3) mg/dL Total Protein (6.3-8.2) g/dL Albumin (3.5-5.0) g/dL Microbiology - Last 24 Hours (Table) 04/12/17 06:00 Gram Stain - Final Sputum Sputum Culture - Final Methicillin resist S. aureus Lou albicans 04/13/17 13:48 Gram Stain - Final Bronchial Washings - Right Bronchial Washings Culture - Final Methicillin resist S. aureus Lou albicans Assessment and Plan Assessment: (1) Fibromyalgia Current Visit: Yes Status: Acute Code(s): M79.7 - FIBROMYALGIA SNOMED Code (s): 061185947 (2) Bipolar disorder Current Visit: Yes Status: Acute Code(s): F31.9 - BIPOLAR DISORDER, UNSPECIFIED SNOMED Code(s): 46347771 (3) MRSA pneumonia Current Visit: Yes Status: Acute Code(s): J15.212 - PNEUMONIA DUE TO METHICILLIN RESISTANT STAPHYLOCOCCUS AUREUS SNOMED Code(s): 385636127951816 (4) Hypoxemic respiratory failure, chronic Current Visit: Yes Status: Acute Code(s): J96.11 - CHRONIC RESPIRATORY FAILURE WITH HYPOXIA SNOMED Code(s): 572725037 (5) Acute exacerbation of chronic bronchitis Current Visit: Yes Status: Acute Code(s): J20.9 - ACUTE BRONCHITIS, UNSPECIFIED SNOMED Code(s): 989302755 (6) COPD (chronic obstructive pulmonary disease) Current Visit: Yes Status: Acute Code(s): J44.9 - CHRONIC OBSTRUCTIVE PULMONARY DISEASE, UNSPECIFIED SNOMED Code(s): 90736715 (7) History of deep venous thrombosis or pulmonary embolus Current Visit: Yes Status: Acute Priority: High Code(s): YPN0832 - SNOMED Code(s): 079169015 (8) Hypoxia Current Visit: Yes Status: Acute Code(s): R09.02 - HYPOXEMIA SNOMED Code(s ): 980551815 (9) Multifocal pneumonia Current Visit: Yes Status: Acute Code(s): J18.9 - PNEUMONIA, UNSPECIFIED ORGANISM SNOMED Code(s): 983119192 (10) COPD exacerbation Current Visit: No Status: Acute Code(s): J44.1 - CHRONIC OBSTRUCTIVE PULMONARY DISEASE W (ACUTE) EXACERBATION SNOMED Code(s): 831135774091196 (11) Deep vein thrombosis of lower extremity Current Visit: No Status: Acute Code(s): I82.409 - ACUTE EMBOLISM AND THOMBOS UNSP DEEP VN UNSP LOWER EXTREMITY SNOMED Code(s): 607045251 (12) Hypertension Current Visit: No Status: Acute Code(s): I10 - ESSENTIAL (PRIMARY) HYPERTENSION SNOMED Code(s): 08721856 (13) Morbid obesity Current Visit: No Status: Acute Code(s): E66.01 - MORBID (SEVERE) OBESITY DUE TO EXCESS CALORIES SNOMED Code(s): 994909409 (14) Pneumonia Current Visit: No Status: Acute Code(s): J18.9 - PNEUMONIA, UNSPECIFIED ORGANISM SNOMED Code(s): 637182359 (15) Sarcoidosis Current Visit: No Status: Acute Code(s): D86.9 - SARCOIDOSIS, UNSPECIFIED SNOMED Code(s): 32324520 Plan: The patient was seen and evaluated by Dr. Clark. She is cleared for discharge from the pulmonary standpoint. She'll complete a prednisone taper. Continue with IV vancomycin per ID. A new Symbicort, Singulair and DuoNeb inhalations. She is again encouraged regarding the importance of weight loss, medication compliance, the risks of home oxygen and continued smoking. She should be seen in our office in 1 week for further follow-up. We'll repeat a chest x-ray then. She is however encouraged to call sooner with any recurrence of symptoms or other questions or concerns. I, the cosigning physician, performed a history & physical examination of the patient. Lungs sounds have faint crackles in the bilateral posterior bases, end expiratory wheeze. Diminished.. Maintaining good O2 saturations in the 90s on 5 L/m per nasal cannula. I discussed the assessment and plan of care with my nurse practitioner, Nicki Roper. I attest to the above note as dictated by her.
[2017-04-18 11:55] LABS: Glucose,Whole Blood 136 mg/dL (75-99)
[2017-04-19] MEDS ORDERED: VANCOMYCIN TROUGH DUE 1 EACH MISC MISCELLANE ONE (05:00)
--- NOTE | 2017-05-21 00:46 | DS ---
DISCHARGE SUMMARY DATE OF ADMISSION: 04/11/17. DATE OF DISCHARGE: 04/18/2017 DISCHARGE MEDICATIONS: 1. Zyrtec 10 mg daily. 2. Vitamin D 54875 units once a week. 3. Ventolin HFA 2 puffs q.4 hours p.r.n. 4. Prozac 20 mg daily. 5. Lopressor 50 mg b.i.d. 6. Singular 10 mg daily. 7. Lamictal 200 daily. 8. Lyrica 100 b.i.d. 9. Zofran 4 mg sublingual p.r.n. 10.Bumex 2 mg b.i.d. 11.Fioricet 1 every 4 hours p.r.n. 12.Baclofen 20 mg t.i.d. 13.Lovenox 40 mg subcu b.i.d. 14.Tylenol 3 q.4 hours. 15.Warfarin 2 mg daily and 5 mg daily. 16.Klor-Con 20 mEq daily. 17.Remeron 45 daily. 18.QVAR 80 mcg 2 puffs b.i.d. 19.Xanax 0.5 mg b.i.d. 20.DuoNeb q.i.d. 21.Vancomycin 2000 mg IV piggyback q24 hours. 22.Prednisone taper 50 mg for 4 days, 30 mg for 4 days, 20 mg for 3 days, and 10 mg for 3 days. HOSPITAL COURSE OF EVENTS: White female who is admitted with community-acquired pneumonia, sarcoidosis. She failed outpatient treatment with antibiotics. She was placed in hospice on IV antibiotics. She was seen by swage toolsetter, showed pulmonary fibrosis on CT scan. She had a Doppler ultrasound was negative for DVTs. INR subtherapeutic on admission. Influenza screen was negative. High-flow oxygen was given on admission in the ICU due to severe shortness of breath and worsening infiltrates bilaterally. Dr. Lott saw her and treated with IV antibiotics. DIAGNOSES: 1. Acute on chronic hypoxemic respiratory failure. 2. Chronic obstructive pulmonary disease exacerbation. 3. Sarcoidosis. 4. Pulmonary fibrosis. 5. Pneumonitis community acquired. The patient was stabilized by swage toolsetter and infectious disease doctor and will follow up as an outpatient. She was stabilized. MMODL / IJN: [id number] /
== END 2017-04-18 12:35 | disposition home health service (06) | DRG 166 ==
LOC: EC 15:02 → 3OBS 18:35 → OBSVTOIN 04-11 08:11 → 6ICU 04-11 15:45 → 6SEL 04-17 16:23
PROVIDERS: ADMIT Family Medicine; ATTEND Family Medicine
PROC: 02HV33Z Insertion of Infusion Device into Superior Vena Cava, Percutaneous Approach (ICD-10-PCS; 2017-04-11 10:35)
PROC: 0B9D8ZX Drainage of Right Middle Lung Lobe, Via Natural or Artificial Opening Endoscopic, Diagnostic (ICD-10-PCS; 2017-04-13)
PROC: 0B9F8ZX Drainage of Right Lower Lung Lobe, Via Natural or Artificial Opening Endoscopic, Diagnostic (ICD-10-PCS; principal; 2017-04-13 08:05)
DX: J15.212 Pneumonia due to Methicillin resistant Staphylococcus aureus (principal); J96.21 Acute and chronic respiratory failure with hypoxia; E66.01 Morbid (severe) obesity due to excess calories; D75.1 Secondary polycythemia; J84.10 Pulmonary fibrosis, unspecified; I11.0 Hypertensive heart disease with heart failure; I50.9 Heart failure, unspecified; J44.0 Chronic obstructive pulmonary disease with (acute) lower respiratory infection; J44.1 Chronic obstructive pulmonary disease with (acute) exacerbation; Z68.41 Body mass index [BMI] 40.0-44.9, adult; J20.9 Acute bronchitis, unspecified; D86.0 Sarcoidosis of lung; I25.2 Old myocardial infarction; M79.7 Fibromyalgia; F31.9 Bipolar disorder, unspecified; I25.10 Atherosclerotic heart disease of native coronary artery without angina pectoris; F41.0 Panic disorder [episodic paroxysmal anxiety]; G47.33 Obstructive sleep apnea (adult) (pediatric); F17.211 Nicotine dependence, cigarettes, in remission; E78.5 Hyperlipidemia, unspecified; Z79.01 Long term (current) use of anticoagulants; Z79.51 Long term (current) use of inhaled steroids; Z79.52 Long term (current) use of systemic steroids; Z79.899 Other long term (current) drug therapy; Z86.718 Personal history of other venous thrombosis and embolism; Z90.49 Acquired absence of other specified parts of digestive tract; Z86.711 Personal history of pulmonary embolism; Z86.73 Personal history of transient ischemic attack (TIA), and cerebral infarction without residual deficits; Z88.1 Allergy status to other antibiotic agents; Z88.5 Allergy status to narcotic agent; Z88.8 Allergy status to other drugs, medicaments and biological substances; Z91.19 Patient's noncompliance with other medical treatment and regimen; Z86.14 Personal history of Methicillin resistant Staphylococcus aureus infection
CPT/HCPCS: 31624; 36415; 36569; 36600; 71045; 71046; 71275; 76937; 77001; 80048; 80053; 80202; 81001; 82550; 82553; 82805; 83036; 83735; 84100; 84484; 85025; 85610; 85730; 86738; 87070; 87077; 87086; 87102; 87116; 87186; 87205; 87206; 87252; 87299; 87449; 87496; 87498; 87502; 87529; 87581; 87634; 87798; 88108; 88184; 88185; 88305; 88312; 89050; 93005; 93970; 94640; 94760; 96361; 96365; 96375; 96376; 99285

== ENCOUNTER 2017-04-22 18:10 | Emergency (ER) | payer OTHER ==
[2017-04-22] MEDS ORDERED: IPRATROPIUM 0.5 MG/2.5 ML NEBU INHALATION STA (18:31)
[2017-04-22] MEDS ORDERED: ALBUTEROL NEBULIZED 2.5 MG/3 ML INHALATION STA (18:31)
--- NOTE | 2017-04-22 18:34 | ED ---
General Adult HPI - General Chief complaint: Shortness of Breath Stated complaint: OLY-MRSA Positive Time Seen by Provider: 04/22/17 18:20 Source: patient, RN notes reviewed, old records reviewed Mode of arrival: wheelchair Limitations: no limitations - History of Present Illness Initial comments: 46-year-old female with significant past medical history presents for evaluation of worsening dyspnea and bilateral lower extremity swelling. Patient states she was discharged from the hospital several days ago. She had and ICU admission secondary to MRSA pneumonia and COPD exacerbation. She does have past medical history of sarcoidosis, pulmonary fibrosis, COPD, MRSA pneumonia, and fibromyalgia. She states she was told in the past that she also had congestive heart failure, she called her home care nurse today who recommended she present to the emergency department with concerns of worsening heart failure. Patient is currently on vancomycin through left upper extremity PICC line. She has been taking her nebulized albuterol at home with minimal relief. She is also complaining of significant right-sided chest pain which is been present since her previous admission.patient also has history of PE, she is currently on Lovenox and Coumadin. - Related Data Home Medications Medication Instructions Recorded Confirmed Cetirizine HCl [Zyrtec] 10 mg PO DAILY PRN 07/16/14 04/22/17 Ergocalciferol [Vitamin D2 50,000 units PO TH 07/16/14 04/22/17 (DRISDOL)] lamoTRIgine [LaMICtal] 200 mg PO DAILY 03/22/16 04/22/17 Baclofen [Lioresal] 20 mg PO TID PRN 10/18/16 04/22/17 Bumetanide 2 mg PO BID 10/18/16 04/22/17 Butalb/APAP/Caff 50-325-40Mg 1 tab PO Q4H PRN 10/18/16 04/22/17 [Fioricet 50-325-40] Ondansetron HCl [Zofran] 4 mg PO DAILY PRN 10/18/16 04/22/17 Pregabalin [Lyrica] 100 mg PO BID 10/18/16 04/22/17 ALPRAZolam [Xanax] 0.5 mg PO BID 04/10/17 04/22/17 Acetaminophen-Codeine 300-30mg 1 tab PO Q4H PRN 04/10/17 04/22/17 [Tylenol #3] Beclomethasone Dipropionate [Qvar 2 puff INHALATION RT-BID 04/10/17 04/22/17 80 mcg] Enoxaparin [Lovenox] 40 mg SQ BID 04/10/17 04/22/17 Ipratropium-Albuterol Nebulize 3 ml INHALATION RT-QID PRN 04/10/17 04/22/17 [Duoneb 0.5 mg-3 mg/3 ml Soln] Mirtazapine [Remeron] 45 mg PO HS 04/10/17 04/22/17 Potassium Chloride [Klor-Con 20 meq PO DAILY 04/10/17 04/22/17 Sprinkle] Warfarin [Coumadin] 2 mg PO HS 04/10/17 04/22/17 Warfarin [Coumadin] 5 mg PO HS 04/10/17 04/22/17 predniSONE 50 mg PO DAILY 04/18/17 04/22/17 Previous Rx's Medication Instructions Recorded Albuterol Inhaler [Ventolin Hfa 2 puff INHALATION RT-Q6H PRN #1 08/20/15 Inhaler] puff FLUoxetine HCL [PROzac] 20 mg PO DAILY #30 capsule 08/20/15 Metoprolol Tartrate [Lopressor] 50 mg PO BID #60 tab 08/20/15 Montelukast [Singulair] 10 mg PO HS #30 tab 08/20/15 Vancomycin 2,000 mg IVPB Q24HR #42 bag 04/17/17 HYDROcodone/APAP 7.5-325MG [[place] 1 tab PO Q6HR PRN #24 tab 04/22/17 7.5-325] Allergies Allergy/AdvReac Type Severity Reaction Status Date / Time ketorolac tromethamine Allergy Severe Anaphylaxis Verified 04/22/17 18:27 [From Toradol] Opioids - Morphine Analogues Allergy Mild Itching Verified 04/22/17 18:27 Iodinated Contrast- Oral and Allergy Unknown Verified 04/22/17 18:27 IV Dye rivaroxaban [From Xarelto] Allergy Rash/Hives Verified 04/22/17 18:27 sumatriptan [From Imitrex] Allergy Anaphylaxis Verified 04/22/17 18:27 sumatriptan succinate Allergy Anaphylaxis Verified 04/22/17 18:27 [From Imitrex] morphine AdvReac Severe Itching Verified 04/22/17 18:27 iodine AdvReac Intermediate Itching Verified 04/22/17 18:27 tramadol AdvReac Anaphylaxis Verified 04/22/17 18:27 vancomycin AdvReac Itching Verified 04/22/17 18:27 Rich wipes AdvReac Severe Rash/Hives Uncoded 04/22/17 18:16 Review of Systems ROS Statement: Those systems with pertinent positive or pertinent negative responses have been documented in the HPI. ROS Other: All systems not noted in ROS Statement are negative. Past Medical History Past Medical History: Blood Disorder, Heart Failure, COPD, Deep Vein Thrombosis (DVT), Hyperlipidemia, Hypertension, Myocardial Infarction ([place]), Musculoskeletal Disorder, Pneumonia, Pulmonary Embolus ([place]) Additional Past Medical History / Comment(s): PE 2012; Sarcoidosis diagnosed in 2015 following a bronchoscopy and lung biopsy done at [facility] and she was started on predniosone and she took the therapy for almost 1 year, polycythemia, overweight, bilateral PE (2011, 2015), bilateral DVTs, fibromyalgia, bipolar disorder, degenerative disk disorder, coronary artery disease along with previous history of a [place] and ventilator dependent respiratory failure with MRSA pneumonia for which the patient was hospitalized [facility] in 2012. Viral meningitis in October 2014. Last Myocardial Infarction Date:: February 15, 2013 History of Any Multi-Drug Resistant Organisms: MRSA Date of last positivie culture/infection: 04/13/17 MDRO Source:: BRONCH Past Surgical History: Section, Cholecystectomy, Heart Catheterization , Hernia Repair, Orthopedic Surgery Additional Past Surgical History / Comment(s): Lt ankle surgery,BRONCH Past Anesthesia/Blood Transfusion Reactions: Motion Sickness, Postoperative Nausea & Vomiting (PONV) Additional Past Anesthesia/Blood Transfusion Reaction / Comment(s): pt stated that last April she coded due to anesthetic Past Psychological History: Anxiety, Bipolar, Depression, Panic Disorder Smoking Status: Current every day smoker Past Alcohol Use History: None Reported Past Drug Use History: None Reported - Past Family History Father Family Medical History: Blood Disorder, Congestive Heart Failure (CHF), CVA/TIA , Deep Vein Thrombosis (DVT), Myocardial Infarction ([place]) Additional Family Medical History / Comment(s): polycythemia Mother Family Medical History: Congestive Heart Failure (CHF), Diabetes Mellitus, Deep Vein Thrombosis (DVT), Myocardial Infarction ([place]), Musculoskeletal Disorder Additional Family Medical History / Comment(s): DDD Sister(s) Family Medical History: No Reported History Brother(s) Family Medical History: No Reported History Son(s) Family Medical History: No Reported History Daughter(s) Family Medical History: No Reported History General Exam Limitations: no limitations General appearance: alert, in distress, other Head exam: Present: atraumatic, normocephalic Eye exam: Present: normal appearance, PERRL ENT exam: Present: normal exam Neck exam: Present: normal inspection. Absent: tenderness, meningismus Respiratory exam: Present: respiratory distress, wheezes, decreased breath sounds, prolonged expiratory Cardiovascular Exam: Present: regular rate, normal rhythm GI/Abdominal exam: Present: soft. Absent: distended, tenderness Extremities exam: Present: normal capillary refill, pedal edema Neurological exam: Present: alert, oriented X3, CN II-XII intact. Absent: motor sensory deficit Psychiatric exam: Present: normal affect, normal mood Skin exam: Present: warm, dry, intact. Absent: cyanosis, diaphoretic Course Vital Signs 04/22/17 04/22/17 04/22/17 18:12 18:55 19:06 Temperature 99.0 F Pulse Rate 81 72 76 Respiratory 22 16 Rate Blood Pressure 121/72 120/72 O2 Sat by Pulse 95 96 Oximetry 04/22/17 04/22/17 19:32 20:02 Temperature 97.8 F Pulse Rate 84 78 Respiratory 22 Rate Blood Pressure 121/68 O2 Sat by Pulse 95 Oximetry EKG Findings - EKG Comments: EKG Findings:: EKG shows normal sinus rhythm, ventricular rate 71, OK of 1:30, castration 66, QTC 412, no signs of ischemia Medical Decision Making - Medical Decision Making 46-year-old female presenting with dyspnea and lower extremity swelling. Patient has multiple medical problems quitting sarcoidosis, pulmonary fibrosis, COPD, she is currently on home O2, currently being treated for MRSA pneumonia with vancomycin through left upper extremity PICC. She does have a history of PE she is on Lovenox and Coumadin. Laboratory studies are obtained, white blood cell count 13.8 which is down trending from previous, hemoglobin stable 14.6, INR 1.8, patient will continue to be bridged on Lovenox. Electrolytes are within normal limits with down trending CO2 from previous admission at 31 from 34. BNP is neg 305, troponin negative, echoecho from March 2017 reviewed, normal EF. Patient will continue steroids and nebulizers at home. She does have home oxygen. 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 Diagnosis: COPD, MRSA pneumonia, history of PE. - Lab Data Result diagrams: 04/22/17 18:43 04/22/17 18:43 Lab Results 04/22/17 04/22/17 04/22/17 Range/Units 18:43 18:43 18:43 WBC 13.8 H (3.8-10.6) k/uL RBC 4.58 (3.80-5.40) m/uL Hgb 14.6 (11.4-16.0) gm/dL Hct 44.9 (34.0-46.0) % MCV 98.0 (80.0-100.0) fL MCH 31.8 (25.0-35.0) pg MCHC 32.5 (31.0-37.0) g/dL RDW 13.8 (11.5-15.5) % Plt Count 257 (150-450) k/uL Neutrophils % 89 % Lymphocytes % 8 % Monocytes % 2 % Eosinophils % 1 % Basophils % 0 % Neutrophils # 12.2 H (1.3-7.7) k/uL Lymphocytes # 1.0 (1.0-4.8) k/uL Monocytes # 0.3 (0-1.0) k/uL Eosinophils # 0.1 (0-0.7) k/uL Basophils # 0.0 (0-0.2) k/uL PT (9.0-12.0) sec INR (<1.2) APTT (22.0-30.0) sec Sodium 141 (137-145) mmol/L Potassium 3.7 (3.5-5.1) mmol/L Chloride 102 (98-107) mmol/L Carbon Dioxide 31 H (22-30) mmol/L Anion Gap 8 mmol/L BUN 16 (7-17) mg/dL Creatinine 0.70 (0.52-1.04) mg/dL Est GFR (MDRD) Af Amer >60 (>60 ml/min/1.73 sqM) Est GFR (MDRD) Non-Af >60 (>60 ml/min/1.73 sqM) Glucose 158 H (74-99) mg/dL Calcium 8.7 (8.4-10.2) mg/dL Magnesium 2.1 (1.6-2.3) mg/dL Total Bilirubin 0.3 (0.2-1.3) mg/dL AST 21 (14-36) U/L ALT 47 (9-52) U/L Alkaline Phosphatase 61 (38-126) U/L Total Creatine Kinase 45 (30-135) U/L CK-MB (CK-2) 0.7 (0.0-2.4) ng/mL CK-MB (CK-2) Rel Index 1.6 Troponin I <0.012 (0.000-0.034) ng/mL NT-Pro-B Natriuret Pep pg/mL Total Protein 6.3 (6.3-8.2) g/dL Albumin 3.6 (3.5-5.0) g/dL 04/22/17 04/22/17 Range/Units 18:43 18:43 WBC (3.8-10.6) k/uL RBC (3.80-5.40) m/uL Hgb (11.4-16.0) gm/dL Hct (34.0-46.0) % MCV (80.0-100.0) fL MCH (25.0-35.0) pg MCHC (31.0-37.0) g/dL RDW (11.5-15.5) % Plt Count (150-450) k/uL Neutrophils % % Lymphocytes % % Monocytes % % Eosinophils % % Basophils % % Neutrophils # (1.3-7.7) k/uL Lymphocytes # (1.0-4.8) k/uL Monocytes # (0-1.0) k/uL Eosinophils # (0-0.7) k/uL Basophils # (0-0.2) k/uL PT 16.5 H (9.0-12.0) sec INR 1.8 H (<1.2) APTT 25.1 (22.0-30.0) sec Sodium (137-145) mmol/L Potassium (3.5-5.1) mmol/L Chloride (98-107) mmol/L Carbon Dioxide (22-30) mmol/L Anion Gap mmol/L BUN (7-17) mg/dL Creatinine (0.52-1.04) mg/dL Est GFR (MDRD) Af Amer (>60 ml/min/1.73 sqM) Est GFR (MDRD) Non-Af (>60 ml/min/1.73 sqM) Glucose (74-99) mg/dL Calcium (8.4-10.2) mg/dL Magnesium (1.6-2.3) mg/dL Total Bilirubin (0.2-1.3) mg/dL AST (14-36) U/L ALT (9-52) U/L Alkaline Phosphatase (38-126) U/L Total Creatine Kinase (30-135) U/L CK-MB (CK-2) (0.0-2.4) ng/mL CK-MB (CK-2) Rel Index Troponin I (0.000-0.034) ng/mL NT-Pro-B Natriuret Pep 305 pg/mL Total Protein (6.3-8.2) g/dL Albumin (3.5-5.0) g/dL Disposition Clinical Impression: Acute exacerbation of chronic obstructive airways disease Disposition: HOME SELF-CARE Condition: Fair Instructions: COPD (Chronic Obstructive Pulmonary Disease) (ED), Pleurisy (ED) , Leg Edema (ED) Prescriptions: HYDROcodone/APAP 7.5-325MG [[place] 7.5-325] 1 tab PO Q6HR PRN #24 tab PRN Reason: Severe Pain Referrals: Liz Koch MD [Primary Care Provider] - 1-2 days Time of Disposition: 20:40
[2017-04-22] MEDS ORDERED: HYDROmorphone 2 MG/ML 1 ML SYRINGE IVP STA ×2 (18:35→19:59)
[2017-04-22 19:03] LABS: Basophils % (A) 0 %; Eosinophils # (A) 0.1 k/uL (0-0.7); Eosinophils % (A) 1 %; HCT 44.9 % (34.0-46.0); HGB 14.6 gm/dL (11.4-16.0); Lymphocytes % (A) 8 %; MCH 31.8 pg (25.0-35.0); MCHC 32.5 g/dL (31.0-37.0); Monocytes # (A) 0.3 k/uL (0-1.0); Monocytes % (A) 2 %; Neutrophils # (A) 12.2 k/uL (1.3-7.7); Neutrophils % (A) 89 %; Platelet Count 257 k/uL (150-450); RBC 4.58 m/uL (3.80-5.40); RDW 13.8 % (11.5-15.5); WBC 13.8 k/uL (3.8-10.6)
[2017-04-22 19:16] LABS: ALT 47 U/L (9-52); AST 21 U/L (14-36); Albumin 3.6 g/dL (3.5-5.0); Alkaline Phosphatase 61 U/L (38-126); Anion Gap 8 mmol/L; Blood Urea Nitrogen 16 mg/dL (7-17); Calcium 8.7 mg/dL (8.4-10.2); Carbon Dioxide 31 mmol/L (22-30); Chloride 102 mmol/L (98-107); Glucose 158 mg/dL (74-99); Magnesium 2.1 mg/dL (1.6-2.3); Potassium 3.7 mmol/L (3.5-5.1); Sodium 141 mmol/L (137-145); Total Bilirubin 0.3 mg/dL (0.2-1.3); Total Protein 6.3 g/dL (6.3-8.2)
[2017-04-22 19:33] LABS: INR 1.8 (<1.2); Partial Thromboplastin Time 25.1 sec (22.0-30.0); Prothrombin Time 16.5 sec (9.0-12.0)
[2017-04-22 19:37] LABS: Creatine Kinase 45 U/L (30-135)
--- NOTE | 2017-04-22 19:46 | XR ---
EXAMINATION TYPE: XR chest 2V DATE OF EXAM: 04/22/2017 COMPARISON: January 14, 2018 HISTORY: Difficulty breathing TECHNIQUE: Frontal and lateral views of the chest are obtained. FINDINGS: There is no focal air space opacity, pleural effusion, or pneumothorax seen. The cardiac silhouette size is within normal limits. The osseous structures are intact. IMPRESSION: No acute cardiopulmonary process.
[2017-04-22 19:50] LABS: Creatine Kinase MB 0.7 ng/mL (0.0-2.4); Troponin I <0.012 ng/mL (0.000-0.034)
[2017-04-22 20:04] VITALS: BP 121/68; PULSE 78; RESP 22; TEMP 97.8
== END 2017-04-22 20:52 | disposition home or self-care (01) ==
LOC: EC 18:10
DX: J44.1 Chronic obstructive pulmonary disease with (acute) exacerbation (principal); R07.9 Chest pain, unspecified; M79.89 Other specified soft tissue disorders; I50.9 Heart failure, unspecified; I11.0 Hypertensive heart disease with heart failure; E78.5 Hyperlipidemia, unspecified; I25.2 Old myocardial infarction; F31.9 Bipolar disorder, unspecified; F41.0 Panic disorder [episodic paroxysmal anxiety]; F17.200 Nicotine dependence, unspecified, uncomplicated; Z86.14 Personal history of Methicillin resistant Staphylococcus aureus infection; Z86.711 Personal history of pulmonary embolism; Z86.718 Personal history of other venous thrombosis and embolism; Z79.51 Long term (current) use of inhaled steroids; Z79.52 Long term (current) use of systemic steroids; Z79.01 Long term (current) use of anticoagulants; Z79.899 Other long term (current) drug therapy; Z88.8 Allergy status to other drugs, medicaments and biological substances; Z88.6 Allergy status to analgesic agent; Z91.041 Radiographic dye allergy status; Z88.5 Allergy status to narcotic agent; Z88.1 Allergy status to other antibiotic agents; Z91.048 Other nonmedicinal substance allergy status
CPT/HCPCS: 36415; 94640; 83880; 80053; 82550; 82553; 83735; 84484; 85025; 85610; 85730; 71046; 99285; 96374; 96376; J1170

== ENCOUNTER 2017-04-24 17:11 | Emergency (ER) | payer OTHER ==
[2017-04-24 17:47] VITALS: BP 103/67; PULSE 77; RESP 24; TEMP 98.9
--- NOTE | 2017-04-24 17:50 | ED ---
General Adult HPI - General Chief complaint: Recheck/Abnormal Lab/Rx Stated complaint: Pic line clogged Time Seen by Provider: 04/24/17 17:31 Source: patient, family, RN notes reviewed Mode of arrival: wheelchair Limitations: no limitations - History of Present Illness Initial comments: 46-year-old female presents to the emergency department with a chief complaint of a clogged line. Patient states this happened today. She had her normal dose of insulin this morning but it was clogged when he went to give her her afternoon dose. She states that she used it without difficulty earlier. She denies any other discomfort. She's receiving this for MRSA infection of the lung. Patient denies any recent fever, chills, shortness of breath, chest pain, back pain, abdominal pain, nausea vomiting, numbness or tingling, dysuria or hematuria, constipation or diarrhea, headaches or visual changes, or any other current symptoms. - Related Data Home Medications Medication Instructions Recorded Confirmed Cetirizine HCl [Zyrtec] 10 mg PO DAILY PRN 07/16/14 04/24/17 Ergocalciferol [Vitamin D2 50,000 units PO TH 07/16/14 04/24/17 (DRISDOL)] lamoTRIgine [LaMICtal] 200 mg PO DAILY 03/22/16 04/24/17 Baclofen [Lioresal] 20 mg PO TID PRN 10/18/16 04/24/17 Bumetanide 2 mg PO BID 10/18/16 04/24/17 Butalb/APAP/Caff 50-325-40Mg 1 tab PO Q4H PRN 10/18/16 04/24/17 [Fioricet 50-325-40] Ondansetron HCl [Zofran] 4 mg PO DAILY PRN 10/18/16 04/24/17 Pregabalin [Lyrica] 100 mg PO BID 10/18/16 04/24/17 ALPRAZolam [Xanax] 0.5 mg PO BID 04/10/17 04/24/17 Acetaminophen-Codeine 300-30mg 1 tab PO Q4H PRN 04/10/17 04/24/17 [Tylenol #3] Beclomethasone Dipropionate [Qvar 2 puff INHALATION RT-BID 04/10/17 04/24/17 80 mcg] Ipratropium-Albuterol Nebulize 3 ml INHALATION RT-QID PRN 04/10/17 04/24/17 [Duoneb 0.5 mg-3 mg/3 ml Soln] Mirtazapine [Remeron] 45 mg PO HS 04/10/17 04/24/17 Potassium Chloride [Klor-Con 20 meq PO DAILY 04/10/17 04/24/17 Sprinkle] predniSONE 50 mg PO DAILY 04/18/17 04/24/17 Warfarin [Coumadin] 10 mg PO HS 04/24/17 04/24/17 Previous Rx's Medication Instructions Recorded Albuterol Inhaler [Ventolin Hfa 2 puff INHALATION RT-Q6H PRN #1 08/20/15 Inhaler] puff FLUoxetine HCL [PROzac] 20 mg PO DAILY #30 capsule 08/20/15 Metoprolol Tartrate [Lopressor] 50 mg PO BID #60 tab 08/20/15 Montelukast [Singulair] 10 mg PO HS #30 tab 08/20/15 Vancomycin 2,000 mg IVPB Q24HR #42 bag 04/17/17 HYDROcodone/APAP 7.5-325MG [[place] 1 tab PO Q6HR PRN #24 tab 04/22/17 7.5-325] Allergies Allergy/AdvReac Type Severity Reaction Status Date / Time ketorolac tromethamine Allergy Severe Anaphylaxis Verified 04/24/17 17:37 [From Toradol] Opioids - Morphine Analogues Allergy Mild Itching Verified 04/24/17 17:37 Iodinated Contrast- Oral and Allergy Unknown Verified 04/24/17 17:37 IV Dye rivaroxaban [From Xarelto] Allergy Rash/Hives Verified 04/24/17 17:37 sumatriptan [From Imitrex] Allergy Anaphylaxis Verified 04/24/17 17:37 sumatriptan succinate Allergy Anaphylaxis Verified 04/24/17 17:37 [From Imitrex] morphine AdvReac Severe Itching Verified 04/24/17 17:37 iodine AdvReac Intermediate Itching Verified 04/24/17 17:37 tramadol AdvReac Anaphylaxis Verified 04/24/17 17:37 vancomycin AdvReac Itching Verified 04/24/17 17:37 Rich wipes AdvReac Severe Rash/Hives Uncoded 04/22/17 18:16 Review of Systems ROS Statement: Those systems with pertinent positive or pertinent negative responses have been documented in the HPI. ROS Other: All systems not noted in ROS Statement are negative. Past Medical History Past Medical History: Blood Disorder, Heart Failure, COPD, Deep Vein Thrombosis (DVT), Hyperlipidemia, Hypertension, Myocardial Infarction ([place]), Musculoskeletal Disorder, Pneumonia, Pulmonary Embolus (PE) Additional Past Medical History / Comment(s): PE 2012; Sarcoidosis diagnosed in 2015 following a bronchoscopy and lung biopsy done at [facility] and she was started on predniosone and she took the therapy for almost 1 year, polycythemia, overweight, bilateral PE (2011, 2015), bilateral DVTs, fibromyalgia, bipolar disorder, degenerative disk disorder, coronary artery disease along with previous history of a [place] and ventilator dependent respiratory failure with MRSA pneumonia for which the patient was hospitalized [facility] in 2012. Viral meningitis in October 2014. Last Myocardial Infarction Date:: February 15, 2013 History of Any Multi-Drug Resistant Organisms: MRSA Date of last positivie culture/infection: 04/13/17 MDRO Source:: BRONCH Past Surgical History: Section, Cholecystectomy, Heart Catheterization , Hernia Repair, Orthopedic Surgery Additional Past Surgical History / Comment(s): Lt ankle surgery,BRONCH Past Anesthesia/Blood Transfusion Reactions: Motion Sickness, Postoperative Nausea & Vomiting (PONV) Additional Past Anesthesia/Blood Transfusion Reaction / Comment(s): pt stated that last April she coded due to anesthetic Past Psychological History: Anxiety, Bipolar, Depression, Panic Disorder Smoking Status: Current every day smoker Past Alcohol Use History: None Reported Past Drug Use History: None Reported - Past Family History Father Family Medical History: Blood Disorder, Congestive Heart Failure (CHF), CVA/TIA , Deep Vein Thrombosis (DVT), Myocardial Infarction ([place]) Additional Family Medical History / Comment(s): polycythemia Mother Family Medical History: Congestive Heart Failure (CHF), Diabetes Mellitus, Deep Vein Thrombosis (DVT), Myocardial Infarction ([place]), Musculoskeletal Disorder Additional Family Medical History / Comment(s): DDD Sister(s) Family Medical History: No Reported History Brother(s) Family Medical History: No Reported History Son(s) Family Medical History: No Reported History Daughter(s) Family Medical History: No Reported History General Exam Limitations: no limitations General appearance: alert, in no apparent distress ENT exam: Present: normal exam, mucous membranes moist Neck exam: Present: normal inspection. Absent: tenderness, meningismus, lymphadenopathy Respiratory exam: Present: normal lung sounds bilaterally. Absent: respiratory distress, wheezes, rales, rhonchi, stridor Cardiovascular Exam: Present: regular rate, normal rhythm, normal heart sounds. Absent: systolic murmur, diastolic murmur, rubs, gallop, clicks Neurological exam: Present: alert, oriented X3 Psychiatric exam: Present: normal affect, normal mood Skin exam: Present: warm, dry, intact, normal color. Absent: rash Course Vital Signs 04/24/17 17:34 Temperature 98.9 F Pulse Rate 77 Respiratory 24 Rate Blood Pressure 103/67 O2 Sat by Pulse 96 Oximetry Medical Decision Making - Medical Decision Making 46-year-old female presents for a clotted PICC line. At this time with a saline flush it was unclogged. Patient tolerated this well. This currently functioning. We will discharge patient home. We discussed follow-up return parameters. All questions have been answered. They are in agreement this plan. They will be discharged. Disposition Clinical Impression: Occluded PICC line Disposition: HOME SELF-CARE Condition: Stable Instructions: Peripherally Inserted Central Catheters and Midline Catheters (ED ) Additional Instructions: Please use medication as discussed. Please follow up with family doctor if symptoms have not improved over the next two days. Please return to the emergency room if your symptoms increase or worsen or for any other concerns. Referrals: Liz Koch MD [Primary Care Provider] - 1-2 days Time of Disposition: 17:49
== END 2017-04-24 17:54 | disposition home or self-care (01) ==
LOC: EC 17:11
DX: T82.898A Other specified complication of vascular prosthetic devices, implants and grafts, initial encounter (principal); I50.9 Heart failure, unspecified; I11.0 Hypertensive heart disease with heart failure; E78.5 Hyperlipidemia, unspecified; I25.2 Old myocardial infarction; J44.9 Chronic obstructive pulmonary disease, unspecified; I25.10 Atherosclerotic heart disease of native coronary artery without angina pectoris; J96.90 Respiratory failure, unspecified, unspecified whether with hypoxia or hypercapnia; Z99.11 Dependence on respirator [ventilator] status; F31.9 Bipolar disorder, unspecified; F41.0 Panic disorder [episodic paroxysmal anxiety]; F17.200 Nicotine dependence, unspecified, uncomplicated; Z86.14 Personal history of Methicillin resistant Staphylococcus aureus infection; Z86.711 Personal history of pulmonary embolism; Z86.718 Personal history of other venous thrombosis and embolism; Z79.01 Long term (current) use of anticoagulants; Z79.4 Long term (current) use of insulin; Z79.51 Long term (current) use of inhaled steroids; Z79.52 Long term (current) use of systemic steroids; Z79.899 Other long term (current) drug therapy; Z91.041 Radiographic dye allergy status; Z88.5 Allergy status to narcotic agent; Z88.6 Allergy status to analgesic agent; Z88.1 Allergy status to other antibiotic agents; Z88.8 Allergy status to other drugs, medicaments and biological substances; Z91.048 Other nonmedicinal substance allergy status
CPT/HCPCS: 99282

== ENCOUNTER 2017-05-08 19:35 | Observation (INO) | payer OTHER ==
[2017-05-08] MEDS ORDERED: methylPREDNISolone SOD SUCCI 125 MG/2 ML VIAL IV STA (20:04)
[2017-05-08] MEDS ORDERED: IPRATROPIUM-ALBUTEROL 3 ML NEB INHALATION STA ×2 (20:04→23:12)
[2017-05-08] MEDS ORDERED: HYDROmorphone 4 MG/ML 1 ML SYRINGE IVP STA ×3 (20:05→23:12)
--- NOTE | 2017-05-08 20:10 | ED ---
SOB HPI - General Chief Complaint: Shortness of Breath Stated Complaint: MRSA in lungs Time Seen by Provider: 05/08/17 19:56 Source: patient Mode of arrival: wheelchair Limitations: physical limitation - History of Present Illness Initial Comments: This is a 46-year-old female with a history of pulmonary fibrosis, pleurisy, and pneumonia who is chronically on 3 L of O2 presents emergency department for worsening shortness of breath and pain in her chest. She states that it's been going on for most of the day. She states that the pain has gotten unbearable. She states that typically she has pain in her right chest however now it is in her (she's been taking [place] without relief. She states that she's also felt extremely short of breath today. She did note that her INR was subtherapeutic yesterday and is concerned because she has a history of PE and DVT. She states that she has been taking her Coumadin as prescribed. She did stop taking the Lovenox injections a couple of days ago however has continued on her Coumadin. She denies any new swelling in her lower extremity. No abdominal pain. No fevers or chills. She is followed by Dr. Hicks for pulmonology. No other complaints. - Related Data Home Medications Medication Instructions Recorded Confirmed Cetirizine HCl [Zyrtec] 10 mg PO DAILY PRN 07/16/14 05/08/17 Ergocalciferol [Vitamin D2 50,000 units PO TH 07/16/14 05/08/17 (DRISDOL)] lamoTRIgine [LaMICtal] 200 mg PO DAILY 03/22/16 05/08/17 Baclofen [Lioresal] 20 mg PO TID PRN 10/18/16 05/08/17 Bumetanide 2 mg PO BID 10/18/16 05/08/17 Butalb/APAP/Caff 50-325-40Mg 1 tab PO Q4H PRN 10/18/16 05/08/17 [Fioricet 50-325-40] Ondansetron HCl [Zofran] 4 mg PO DAILY PRN 10/18/16 05/08/17 Pregabalin [Lyrica] 100 mg PO BID 10/18/16 05/08/17 ALPRAZolam [Xanax] 0.5 mg PO Q4HR PRN 04/10/17 05/08/17 Acetaminophen-Codeine 300-30mg 1 tab PO Q4H PRN 04/10/17 05/08/17 [Tylenol #3] Beclomethasone Dipropionate [Qvar 2 puff INHALATION RT-BID 04/10/17 05/08/17 80 mcg] Ipratropium-Albuterol Nebulize 3 ml INHALATION RT-QID PRN 04/10/17 05/08/17 [Duoneb 0.5 mg-3 mg/3 ml Soln] Mirtazapine [Remeron] 45 mg PO HS 04/10/17 05/08/17 Potassium Chloride [Klor-Con 20 meq PO DAILY 04/10/17 05/08/17 Sprinkle] predniSONE 50 mg PO DAILY 04/18/17 05/08/17 Warfarin [Coumadin] 10 mg PO HS 04/24/17 05/08/17 Promethazine/Dextromethorphan 5 ml PO Q6HR PRN 04/26/17 05/08/17 [Promethazine-Dm Syrup] Vancomycin 2,000 mg IVPB Q8H 05/08/17 05/08/17 Previous Rx's Medication Instructions Recorded Albuterol Inhaler [Ventolin Hfa 2 puff INHALATION RT-Q6H PRN #1 08/20/15 Inhaler] puff FLUoxetine HCL [PROzac] 20 mg PO DAILY #30 capsule 08/20/15 Metoprolol Tartrate [Lopressor] 50 mg PO BID #60 tab 08/20/15 Montelukast [Singulair] 10 mg PO HS #30 tab 08/20/15 HYDROcodone/APAP 7.5-325MG [[place] 1 tab PO Q6HR PRN #24 tab 04/22/17 7.5-325] Allergies Allergy/AdvReac Type Severity Reaction Status Date / Time ketorolac tromethamine Allergy Severe Anaphylaxis Verified 05/08/17 20:26 [From Toradol] Opioids - Morphine Analogues Allergy Mild Itching Verified 05/08/17 20:26 Iodinated Contrast- Oral and Allergy Unknown Verified 05/08/17 20:26 IV Dye rivaroxaban [From Xarelto] Allergy Rash/Hives Verified 05/08/17 20:26 sumatriptan [From Imitrex] Allergy Anaphylaxis Verified 05/08/17 20:26 sumatriptan succinate Allergy Anaphylaxis Verified 05/08/17 20:26 [From Imitrex] morphine AdvReac Severe Itching Verified 05/08/17 20:26 iodine AdvReac Intermediate Itching Verified 05/08/17 20:26 tramadol AdvReac Anaphylaxis Verified 05/08/17 20:26 vancomycin AdvReac Itching Verified 05/08/17 20:26 Rich wipes AdvReac Severe Rash/Hives Uncoded 04/26/17 16:43 Review of Systems ROS Statement: Those systems with pertinent positive or pertinent negative responses have been documented in the HPI. ROS Other: All systems not noted in ROS Statement are negative. Past Medical History Past Medical History: Blood Disorder, Heart Failure, COPD, Deep Vein Thrombosis (DVT), Hyperlipidemia, Hypertension, Myocardial Infarction (OK), Musculoskeletal Disorder, Pneumonia, Pulmonary Embolus (PE) Additional Past Medical History / Comment(s): PE 2012; Sarcoidosis diagnosed in 2015 following a bronchoscopy and lung biopsy done at [facility] and she was started on predniosone and she took the therapy for almost 1 year, polycythemia, overweight, bilateral PE (2011, 2015), bilateral DVTs, fibromyalgia, bipolar disorder, degenerative disk disorder, coronary artery disease along with previous history of a OK and ventilator dependent respiratory failure with MRSA pneumonia for which the patient was hospitalized [facility] in 2012. Viral meningitis in October 2014. Last Myocardial Infarction Date:: February 15, 2013 History of Any Multi-Drug Resistant Organisms: MRSA Date of last positivie culture/infection: 04/13/17 MDRO Source:: BRON[place] Past Surgical History: Section, Cholecystectomy, Heart Catheterization , Hernia Repair, Orthopedic Surgery Additional Past Surgical History / Comment(s): Lt ankle surgery,BRONCH Past Anesthesia/Blood Transfusion Reactions: Motion Sickness, Postoperative Nausea & Vomiting (PONV) Additional Past Anesthesia/Blood Transfusion Reaction / Comment(s): pt stated that last April she coded due to anesthetic Past Psychological History: Anxiety, Bipolar, Depression, Panic Disorder Smoking Status: Current every day smoker Past Alcohol Use History: None Reported Past Drug Use History: None Reported - Past Family History Father Family Medical History: Blood Disorder, Congestive Heart Failure (CHF), CVA/TIA , Deep Vein Thrombosis (DVT), Myocardial Infarction (OK) Additional Family Medical History / Comment(s): polycythemia Mother Family Medical History: Congestive Heart Failure (CHF), Diabetes Mellitus, Deep Vein Thrombosis (DVT), Myocardial Infarction (OK), Musculoskeletal Disorder Additional Family Medical History / Comment(s): DDD Sister(s) Family Medical History: No Reported History Brother(s) Family Medical History: No Reported History Son(s) Family Medical History: No Reported History Daughter(s) Family Medical History: No Reported History General Exam - General Exam Comments Initial Comments: Constitutional: Awake alert Appears comfortable Head: Normocephalic atraumatic Eyes: no conjunctival injection No scleral icterus EOMI Neck: No JVD Supple Heart: Regular rate rhythm normal S1-S2 no murmurs Lungs: Decreased breath sounds bilaterally No wheezing No rales Abdomen: Soft nondistended nontender Extremities: Non edematous DP pulses intact Radial pulses intact Neuro: A&Ox3 No focal neurologic deficits Psych: Appropriate mood and affect Limitations: physical limitation Course Vital Signs 05/08/17 05/08/17 05/08/17 19:38 20:29 20:32 Temperature 98.3 F Pulse Rate 102 H 95 101 H Respiratory 22 22 Rate Blood Pressure 155/80 128/85 O2 Sat by Pulse 99 98 Oximetry 05/08/17 05/08/17 05/08/17 20:35 20:36 21:24 Temperature Pulse Rate 96 91 Respiratory 24 20 Rate Blood Pressure 129/62 O2 Sat by Pulse 96 Oximetry 05/08/17 05/08/17 05/08/17 22:08 22:53 23:19 Temperature Pulse Rate 90 92 92 Respiratory 20 22 22 Rate Blood Pressure 139/80 128/67 139/80 O2 Sat by Pulse 96 95 96 Oximetry - Reevaluation(s) Reevaluation #1: 05/08/17 20:24 EKG showing normal sinus rhythm with a rate of 92. No abnormal masses 7 changes or T-wave inversion. QTC is 432. Other intervals normal. No ectopy. Medical Decision Making - Medical Decision Making This is a 46-year-old female who presents emergency department for worsening shortness of breath, chest pain, tachycardia and hypoxia at home. The patient was evaluated and had a negative troponin. D-dimer was elevated and her INR was subtherapeutic. She was checked with a CT angiography after pre-medicating her for her itching from the IV contrast. She tolerated this well however after she returned she was much more short of breath and required increasing amount of oxygen. She was given another breathing treatment and some pain medications. She feels that her breathing is not at her baseline and this chest pain is worsening. I'm going to bring her to the hospital for further monitoring and evaluation. Clementina Church accepts the admission. - Lab Data Result diagrams: 05/08/17 20:02 05/08/17 20:02 Lab Results 05/08/17 05/08/17 05/08/17 Range/Units 20:02 20:02 20:02 WBC 9.2 (3.8-10.6) k/uL RBC 4.56 (3.80-5.40) m/uL Hgb 14.7 (11.4-16.0) gm/dL Hct 42.4 (34.0-46.0) % MCV 93.1 (80.0-100.0) fL MCH 32.3 (25.0-35.0) pg MCHC 34.7 (31.0-37.0) g/dL RDW 14.4 (11.5-15.5) % Plt Count 235 (150-450) k/uL Neutrophils % (Manual) 55 % Band Neutrophils % 2 % Lymphocytes % (Manual) 36 % Monocytes % (Manual) 3 % Eosinophils % (Manual) 4 % Neutrophils # (Manual) 5.20 (1.3-7.7) k/uL Lymphocytes # (Manual) 3.31 (1.0-4.8) k/uL Monocytes # (Manual) 0.28 (0-1.0) k/uL Eosinophils # (Manual) 0.37 (0-0.7) k/uL Nucleated RBCs 0 (0-0) /100 WBC Manual Slide Review Performed Polychromasia Present PT (9.0-12.0) sec INR (<1.2) APTT (22.0-30.0) sec D-Dimer (<0.60) mg/L FEU VBG pH 7.44 H (7.31-7.41) VBG pCO2 32 L (37-51) mmHg VBG HCO3 21 L (24-28) mmol/L Sodium 140 (137-145) mmol/L Potassium 3.2 L (3.5-5.1) mmol/L Chloride 109 H (98-107) mmol/L Carbon Dioxide 22 (22-30) mmol/L Anion Gap 9 mmol/L BUN 12 (7-17) mg/dL Creatinine 0.60 (0.52-1.04) mg/dL Est GFR (MDRD) Af Amer >60 (>60 ml/min/1.73 sqM) Est GFR (MDRD) Non-Af >60 (>60 ml/min/1.73 sqM) Glucose 102 H (74-99) mg/dL Calcium 8.6 (8.4-10.2) mg/dL Total Bilirubin 0.3 (0.2-1.3) mg/dL AST 38 H (14-36) U/L ALT 38 (9-52) U/L Alkaline Phosphatase 89 (38-126) U/L CK-MB (CK-2) (0.0-2.4) ng/mL Troponin I (0.000-0.034) ng/mL NT-Pro-B Natriuret Pep pg/mL Total Protein 6.8 (6.3-8.2) g/dL Albumin 3.8 (3.5-5.0) g/dL 05/08/17 05/08/17 05/08/17 Range/Units 20:02 20:02 20:02 WBC (3.8-10.6) k/uL RBC (3.80-5.40) m/uL Hgb (11.4-16.0) gm/dL Hct (34.0-46.0) % MCV (80.0-100.0) fL MCH (25.0-35.0) pg MCHC (31.0-37.0) g/dL RDW (11.5-15.5) % Plt Count (150-450) k/uL Neutrophils % (Manual) % Band Neutrophils % % Lymphocytes % (Manual) % Monocytes % (Manual) % Eosinophils % (Manual) % Neutrophils # (Manual) (1.3-7.7) k/uL Lymphocytes # (Manual) (1.0-4.8) k/uL Monocytes # (Manual) (0-1.0) k/uL Eosinophils # (Manual) (0-0.7) k/uL Nucleated RBCs (0-0) /100 WBC Manual Slide Review Polychromasia PT 10.0 (9.0-12.0) sec INR 1.0 (<1.2) APTT 22.5 (22.0-30.0) sec D-Dimer (<0.60) mg/L FEU VBG pH (7.31-7.41) VBG pCO2 (37-51) mmHg VBG HCO3 (24-28) mmol/L Sodium (137-145) mmol/L Potassium (3.5-5.1) mmol/L Chloride (98-107) mmol/L Carbon Dioxide (22-30) mmol/L Anion Gap mmol/L BUN (7-17) mg/dL Creatinine (0.52-1.04) mg/dL Est GFR (MDRD) Af Amer (>60 ml/min/1.73 sqM) Est GFR (MDRD) Non-Af (>60 ml/min/1.73 sqM) Glucose (74-99) mg/dL Calcium (8.4-10.2) mg/dL Total Bilirubin (0.2-1.3) mg/dL AST (14-36) U/L ALT (9-52) U/L Alkaline Phosphatase (38-126) U/L CK-MB (CK-2) 0.4 (0.0-2.4) ng/mL Troponin I <0.012 (0.000-0.034) ng/mL NT-Pro-B Natriuret Pep 51 pg/mL Total Protein (6.3-8.2) g/dL Albumin (3.5-5.0) g/dL 05/08/17 Range/Units 20:02 WBC (3.8-10.6) k/uL RBC (3.80-5.40) m/uL Hgb (11.4-16.0) gm/dL Hct (34.0-46.0) % MCV (80.0-100.0) fL MCH (25.0-35.0) pg MCHC (31.0-37.0) g/dL RDW (11.5-15.5) % Plt Count (150-450) k/uL Neutrophils % (Manual) % Band Neutrophils % % Lymphocytes % (Manual) % Monocytes % (Manual) % Eosinophils % (Manual) % Neutrophils # (Manual) (1.3-7.7) k/uL Lymphocytes # (Manual) (1.0-4.8) k/uL Monocytes # (Manual) (0-1.0) k/uL Eosinophils # (Manual) (0-0.7) k/uL Nucleated RBCs (0-0) /100 WBC Manual Slide Review Polychromasia PT (9.0-12.0) sec INR (<1.2) APTT (22.0-30.0) sec D-Dimer 1.13 H (<0.60) mg/L FEU VBG pH (7.31-7.41) VBG pCO2 (37-51) mmHg VBG HCO3 (24-28) mmol/L Sodium (137-145) mmol/L Potassium (3.5-5.1) mmol/L Chloride (98-107) mmol/L Carbon Dioxide (22-30) mmol/L Anion Gap mmol/L BUN (7-17) mg/dL Creatinine (0.52-1.04) mg/dL Est GFR (MDRD) Af Amer (>60 ml/min/1.73 sqM) Est GFR (MDRD) Non-Af (>60 ml/min/1.73 sqM) Glucose (74-99) mg/dL Calcium (8.4-10.2) mg/dL Total Bilirubin (0.2-1.3) mg/dL AST (14-36) U/L ALT (9-52) U/L Alkaline Phosphatase (38-126) U/L CK-MB (CK-2) (0.0-2.4) ng/mL Troponin I (0.000-0.034) ng/mL NT-Pro-B Natriuret Pep pg/mL Total Protein (6.3-8.2) g/dL Albumin (3.5-5.0) g/dL Disposition Clinical Impression: Chest pain, Pulmonary fibrosis, Acute exacerbation of chronic obstructive pulmonary disease (COPD) Disposition: ADMITTED IP TO THIS HOSP Condition: Stable
[2017-05-08 20:16] LABS: HCT 42.4 % (34.0-46.0); HGB 14.7 gm/dL (11.4-16.0); MCH 32.3 pg (25.0-35.0); MCHC 34.7 g/dL (31.0-37.0); MCV 93.1 fL (80.0-100.0); Mean Platelet Volume 6.7; RBC 4.56 m/uL (3.80-5.40); RDW 14.4 % (11.5-15.5); WBC 9.2 k/uL (3.8-10.6)
[2017-05-08 20:17] LABS: VBG PH 7.44 (7.31-7.41)
[2017-05-08 20:28] LABS: Partial Thromboplastin Time 22.5 sec (22.0-30.0)
[2017-05-08 20:29] LABS: ALT 38 U/L (9-52); AST 38 U/L (14-36); Albumin 3.8 g/dL (3.5-5.0); Alkaline Phosphatase 89 U/L (38-126); Anion Gap 9 mmol/L; Blood Urea Nitrogen 12 mg/dL (7-17); Calcium 8.6 mg/dL (8.4-10.2); Carbon Dioxide 22 mmol/L (22-30); Chloride 109 mmol/L (98-107); Glucose 102 mg/dL (74-99); Potassium 3.2 mmol/L (3.5-5.1); Sodium 140 mmol/L (137-145); Total Bilirubin 0.3 mg/dL (0.2-1.3); Total Protein 6.8 g/dL (6.3-8.2)
[2017-05-08 20:43] LABS: Band Neutrophils % 2 %; Eosinophils # (M) 0.37 k/uL (0-0.7); Lymphocytes # (M) 3.31 k/uL (1.0-4.8); Monocytes # (M) 0.28 k/uL (0-1.0); Neutrophils % (M) 55 %; Nucleated Red Blood Cells 0 /100 WBC (0-0); Total Cells Counted 100
[2017-05-08 20:44] LABS: Platelet Count 235 k/uL (150-450); Polychromasia Present
[2017-05-08 20:49] LABS: Creatine Kinase MB 0.4 ng/mL (0.0-2.4); Troponin I <0.012 ng/mL (0.000-0.034)
[2017-05-08] MEDS ORDERED: diphenhydrAMINE 50 MG/ML 1 ML VIAL IVP STA (21:53)
[2017-05-08] MEDS ORDERED: predniSONE 20 MG TAB PO STA (21:53)
[2017-05-08] MEDS ORDERED: RX INFO: IV CONTRAST WAS GIVEN 1 EACH MISC MISCELLANE PRN (21:53)
[2017-05-08] MEDS ORDERED: ENOXAPARIN 80 MG/0.8 ML SYRINGE SQ STA (21:53)
--- NOTE | 2017-05-08 22:05 | XR ---
EXAMINATION TYPE: XR chest 2V DATE OF EXAM: 05/08/2017 COMPARISON: 05/07/2017 HISTORY: Short of breath TECHNIQUE: Frontal and lateral views of the chest are obtained. FINDINGS: There is no heart failure nor confluent pneumonic infiltrate. There is relative poor inspi ration. There are chest leads. There is slight blunting of left costophrenic angle on the frontal vie w. The bony thorax is intact. IMPRESSION: There is some pleural diaphragmatic reaction at the lateral left lung base without delvalle e compared to old exam. Normal heart
--- NOTE | 2017-05-08 23:03 | CT ---
EXAMINATION TYPE: CT angio chest DATE OF EXAM: 05/08/2017 10:31 PM COMPARISON: 04/10/2017 HISTORY: MRSA in lung and chest pain. CT DLP: 724.9 mGycm Automated exposure control for dose reduction was used. CONTRAST: CTA scan of the thorax is performed with IV Contrast, patient injected with 100ml mL of Omnipaque 350 , pulmonary embolism protocol. There are 3-D post processed images.. FINDINGS: There is mild bilateral interstitial pulmonary infiltrate. There is no evidence of a pulmonary mass. There is no pulmonary consolidation. There is no pleural effusion. There is no pericardial effusion. I see no filling defects in the pulmonary arteries. There is no sign of aortic aneurysm or dissection . Heart size is normal. There is no mediastinal adenopathy. There are bronchial lymph nodes that sasha ure up to 1 cm. The bony thorax is intact. IMPRESSION: NO EVIDENCE OF PULMONARY EMBOLISM. THERE IS SIGNIFICANT CLEARING OF THE PULMONARY EDEMA COMPARED TO L AST EXAM.
[2017-05-08] MEDS ORDERED: HYDROcodone/APAP 7.5-325MG 1 EACH TAB PO PRN (23:18)
[2017-05-08] MEDS ORDERED: BACLOFEN 10 MG TAB PO PRN (23:18)
[2017-05-08] MEDS ORDERED: ONDANSETRON 4 MG TAB PO PRN (23:18)
[2017-05-08] MEDS ORDERED: LORATADINE 10 MG TAB PO PRN (23:18)
[2017-05-08] MEDS ORDERED: HYDROmorphone 1 MG/ML 1 ML SYRINGE IVP PRN (23:20)
[2017-05-08] MEDS ORDERED: NALOXONE 0.4 MG/ML 1 ML VIAL IV PRN (23:20)
[2017-05-08] MEDS ORDERED: VANCOMYCIN 1,000 MG VIAL IVPB SCH (23:30)
[2017-05-09 00:23] VITALS: TEMP 97.7
[2017-05-09 00:34] VITALS: BMI 40.1
[2017-05-09] MEDS: methylPREDNISolone SOD SUCCI 125 MG/2 ML VIAL IV SCH ×3 (01:01→11:22)
[2017-05-09] MEDS: ALPRAZolam 0.5 MG TAB PO PRN ×3 (01:16→12:30)
[2017-05-09] MEDS: VANCOMYCIN 2,000 MG in SODIUM CHLORIDE 0.9% 500 ML IVPB SCH ×2 (01:16→08:55)
[2017-05-09] MEDS: HYDROmorphone 2 MG/ML 1 ML SYRINGE IVP PRN ×4 (02:51→13:37)
[2017-05-09] MEDS: IPRATROPIUM-ALBUTEROL 3 ML NEB INHALATION PRN ×3 (04:25→11:16)
[2017-05-09 07:34] VITALS: RESP 18
[2017-05-09 07:59] VITALS: BP 114/63
[2017-05-09] MEDS ORDERED: BUDESONIDE 1 MG/2 ML NEBU INHALATION SCH (08:00)
[2017-05-09 08:13] LABS: Glucose,Whole Blood 228 mg/dL (75-99)
[2017-05-09] MEDS ORDERED: diphenhydrAMINE 50 MG/ML 1 ML VIAL IVP PRN (08:23)
[2017-05-09] MEDS ORDERED: FLUoxetine HCL 20 MG CAP PO SCH (09:00)
[2017-05-09] MEDS ORDERED: METOPROLOL TARTRATE 50 MG TAB PO SCH (09:00)
[2017-05-09] MEDS ORDERED: PREGABALIN 100 MG CAP PO SCH (09:00)
[2017-05-09] MEDS ORDERED: BUMETANIDE 1 MG TAB PO SCH (09:00)
[2017-05-09] MEDS ORDERED: INSULIN ASPART 100 UNIT/ML 1 ML 10 ML VIAL SQ ONE (09:00)
[2017-05-09] MEDS ORDERED: lamoTRIgine 100 MG TAB PO SCH (09:00)
[2017-05-09] MEDS ORDERED: ENOXAPARIN 80 MG/0.8 ML SYRINGE SQ SCH (09:00)
[2017-05-09 09:21] LABS: Basophils % (A) 0 %; Eosinophils % (A) 0 %; HCT 39.9 % (34.0-46.0); HGB 13.3 gm/dL (11.4-16.0); Lymphocytes # (A) 1.3 k/uL (1.0-4.8); Lymphocytes % (A) 19 %; MCH 30.9 pg (25.0-35.0); MCHC 33.3 g/dL (31.0-37.0); MCV 92.8 fL (80.0-100.0); Mean Platelet Volume 7.2; Monocytes # (A) 0.3 k/uL (0-1.0); Monocytes % (A) 4 %; Neutrophils % (A) 75 %; Platelet Count 212 k/uL (150-450); RDW 14.7 % (11.5-15.5); WBC 6.7 k/uL (3.8-10.6)
[2017-05-09 09:22] LABS: ALT 37 U/L (9-52); AST 26 U/L (14-36); Albumin 3.6 g/dL (3.5-5.0); Alkaline Phosphatase 88 U/L (38-126); Anion Gap 13 mmol/L; Blood Urea Nitrogen 11 mg/dL (7-17); Calcium 8.8 mg/dL (8.4-10.2); Carbon Dioxide 18 mmol/L (22-30); Chloride 108 mmol/L (98-107); Glucose 235 mg/dL (74-99); Potassium 3.8 mmol/L (3.5-5.1); Sodium 139 mmol/L (137-145); Total Bilirubin 0.2 mg/dL (0.2-1.3); Total Protein 6.5 g/dL (6.3-8.2)
--- NOTE | 2017-05-09 10:30 | P.CONS ---
History of Present Illness - Chief Complaint Medical debility - History of Present Illness I had the opportunity to see patient for inpatient rehab consultation with regard to medical debility. She was admitted to [facility] yesterday, May 08 , known sarcoid including pulmonary sarcoid and now with shortness of breath and lung pain. CTA done and negative for PE. Chest x-ray demonstrates some scarring at the left base, unchanged. Previous functional history as elicited from patient corroborative by : 46-year-old right-handed white female who is lives in one floor home with . On disability related to sarcoid. generally does the cooking, laundry, driving. Patient independent with standing shower and gait without device. Brigida Ramirez is regular doctor. Family history father was a smoker. Both parents with sarcoid. Review of Systems Review of systems: ENT: Denies sneezes or discharge. Eyes: Denies discharge or photophobia. Cardiac: Denies chest pain or palpitation. Pulmonary: Shortness of breath and pulmonary pain. Breast: Denies discharge or lumps. Gastrointestinal: Denies nausea, emesis, constipation, diarrhea. Genitourinary: Denies discharge or frequency. Musculoskeletal: Denies muscle or bone aches. Neurologic: Mild generalized weakness. Endocrine: Denies shakes or sweats. Oncology: Denies cancers. Dermatologic: Denies rash, itching, pruritus. ALLERGY/immunology: Denies sneezes, rashes. Past Medical History Past Medical History: Blood Disorder, Heart Failure, COPD, Deep Vein Thrombosis (DVT), Hyperlipidemia, Hypertension, Myocardial Infarction (HI), Musculoskeletal Disorder, Pneumonia, Pulmonary Embolus (PE) Additional Past Medical History / Comment(s): PE 2012; Sarcoidosis diagnosed in 2015 following a bronchoscopy and lung biopsy done at [facility] and she was started on predniosone and she took the therapy for almost 1 year, polycythemia, overweight, bilateral PE (2011, 2015), bilateral DVTs, fibromyalgia, bipolar disorder, degenerative disk disorder, coronary artery disease along with previous history of a HI and ventilator dependent respiratory failure with MRSA pneumonia for which the patient was hospitalized [facility] in 2012. Viral meningitis in October 2014. Last Myocardial Infarction Date:: February 15, 2013 History of Any Multi-Drug Resistant Organisms: MRSA Year Discovered:: 04/13/17 MDRO Source:: BRONCH Past Surgical History: Section, Cholecystectomy, Heart Catheterization , Hernia Repair, Orthopedic Surgery Additional Past Surgical History / Comment(s): Lt ankle surgery,BRONCH Past Anesthesia/Blood Transfusion Reactions: Motion Sickness, Postoperative Nausea & Vomiting (PONV) Additional Past Anesthesia/Blood Transfusion Reaction / Comm: pt stated that last April she coded due to anesthetic Past Psychological History: Anxiety, Bipolar, Depression, Panic Disorder Additional Psychological History / Comment(s): Lives with her boyfriend. Regretfully she is an ongoing tobacco smoker despite her progressive and worsening pulmonary disease. Does not relate to significant alcohol use no recreational drug use. Currently not working. No experience. No recent travel. No animal exposures. Did leave the hospital AMA in March 2017. Difficulties with ongoing medical noncompliance Smoking Status: Former smoker Past Alcohol Use History: None Reported Additional Past Alcohol Use History / Comment(s): patient lives with her significant other. She states she has quit smoking since her last admission. She denies any alcohol use or recreational drug use. Patient is currently not working. No service. No recent travel. No animal exposures. She did leave the hospital AMA in March 2017. Difficulties with ongoing medical noncompliance. Past Drug Use History: None Reported - Past Family History Father Family Medical History: Blood Disorder, Congestive Heart Failure (CHF), CVA/TIA , Deep Vein Thrombosis (DVT), Myocardial Infarction (HI) Additional Family Medical History / Comment(s): polycythemia Mother Family Medical History: Congestive Heart Failure (CHF), Diabetes Mellitus, Deep Vein Thrombosis (DVT), Myocardial Infarction (HI), Musculoskeletal Disorder Additional Family Medical History / Comment(s): DDD Sister(s) Family Medical History: No Reported History Brother(s) Family Medical History: No Reported History Son(s) Family Medical History: No Reported History Daughter(s) Family Medical History: No Reported History Medications and Allergies Home Medications Medication Instructions Recorded Confirmed Type Cetirizine HCl [Zyrtec] 10 mg PO DAILY PRN 07/16/14 05/08/17 History Ergocalciferol [Vitamin D2 50,000 units PO TH 07/16/14 05/08/17 History (DRISDOL)] Albuterol Inhaler [Ventolin Hfa 2 puff INHALATION RT-Q6H PRN #1 08/20/15 Rx Inhaler] puff FLUoxetine HCL [PROzac] 20 mg PO DAILY #30 capsule 08/20/15 05/08/17 Rx Metoprolol Tartrate [Lopressor] 50 mg PO BID #60 tab 08/20/15 05/08/17 Rx Montelukast [Singulair] 10 mg PO HS #30 tab 08/20/15 05/08/17 Rx lamoTRIgine [LaMICtal] 200 mg PO DAILY 03/22/16 05/08/17 History Baclofen [Lioresal] 20 mg PO TID PRN 10/18/16 05/08/17 History Bumetanide 2 mg PO BID 10/18/16 05/08/17 History Butalb/APAP/Caff 50-325-40Mg 1 tab PO Q4H PRN 10/18/16 05/08/17 History [Fioricet 50-325-40] Ondansetron HCl [Zofran] 4 mg PO DAILY PRN 10/18/16 05/08/17 History Pregabalin [Lyrica] 100 mg PO BID 10/18/16 05/08/17 History ALPRAZolam [Xanax] 0.5 mg PO Q4HR PRN 04/10/17 05/08/17 History Acetaminophen-Codeine 300-30mg 1 tab PO Q4H PRN 04/10/17 05/08/17 History [Tylenol #3] Beclomethasone Dipropionate [Qvar 2 puff INHALATION RT-BID 04/10/17 05/08/17 History 80 mcg] Ipratropium-Albuterol Nebulize 3 ml INHALATION RT-QID PRN 04/10/17 05/08/17 History [Duoneb 0.5 mg-3 mg/3 ml Soln] Mirtazapine [Remeron] 45 mg PO HS 04/10/17 05/08/17 History Potassium Chloride [Klor-Con 20 meq PO DAILY 04/10/17 05/08/17 History Sprinkle] predniSONE 50 mg PO DAILY 04/18/17 05/08/17 History HYDROcodone/APAP 7.5-325MG [[place] 1 tab PO Q6HR PRN #24 tab 04/22/17 05/08/17 Rx 7.5-325] Warfarin [Coumadin] 10 mg PO HS 04/24/17 05/08/17 History Promethazine/Dextromethorphan 5 ml PO Q6HR PRN 04/26/17 05/08/17 History [Promethazine-Dm Syrup] Vancomycin 2,000 mg IVPB Q8H 05/08/17 05/08/17 History Allergies Allergy/AdvReac Type Severity Reaction Status Date / Time ketorolac tromethamine Allergy Severe Anaphylaxis Verified 05/08/17 20:26 [From Toradol] Opioids - Morphine Analogues Allergy Mild Itching Verified 05/08/17 20:26 Iodinated Contrast- Oral and Allergy Unknown Verified 05/08/17 20:26 IV Dye rivaroxaban [From Xarelto] Allergy Rash/Hives Verified 05/08/17 20:26 sumatriptan [From Imitrex] Allergy Anaphylaxis Verified 05/08/17 20:26 sumatriptan succinate Allergy Anaphylaxis Verified 05/08/17 20:26 [From Imitrex] morphine AdvReac Severe Itching Verified 05/08/17 20:26 iodine AdvReac Intermediate Itching Verified 05/08/17 20:26 tramadol AdvReac Anaphylaxis Verified 05/08/17 20:26 vancomycin AdvReac Itching Verified 05/08/17 20:26 Rich wipes AdvReac Severe Rash/Hives Uncoded 04/26/17 16:43 Physical Exam Vitals: Vital Signs Temp Pulse Pulse Resp BP BP Pulse Ox 05/09/17 07:41 98 05/09/17 07:31 104 H 18 96 05/09/17 07:00 97.7 F 102 H 18 114/63 96 05/09/17 04:26 92 05/09/17 01:00 96 20 05/09/17 00:20 97.7 F 96 24 115/62 05/08/17 23:43 98.3 F 95 20 129/55 97 05/08/17 23:37 96 05/08/17 23:24 92 05/08/17 23:19 92 22 139/80 96 05/08/17 22:53 92 22 128/67 95 05/08/17 22:08 90 20 139/80 96 05/08/17 21:24 91 20 129/62 96 05/08/17 20:36 96 05/08/17 20:35 24 05/08/17 20:32 101 H 22 128/85 98 05/08/17 20:29 95 05/08/17 19:38 98.3 F 102 H 22 155/80 99 Intake and Output 05/08/17 05/09/17 05/09/17 22:59 06:59 14:59 Intake Total 500 Balance 500 Intake: Oral 500 Other: # Voids 1 Weight 105.233 kg 111 kg Skin: Good color, texture, turgor. Slightly flushed face. General: Obese and comfortable appearance. Head: Normocephalic, atraumatic. Eyes: Symmetric. Pupils equal round. Ears: Symmetric. Hearing within normal limits. Mouth: Clear. Neck: Supple. Carotid without bruit. Cardiac: Regular rate and rhythm. Lungs: Clear anteriorly and posteriorly. Abdomen: Soft active nontender. Obese. Extremities: Normal tone. Overweight. Neurological: Mental status: Alert, cooperative, pleasant. Cranial nerves: Symmetric facial tone and trapezius. Motor: Normal strength and isolation all 4 limbs. Sensation: Intact throughout. DTRs: Symmetric and equal throughout. Mobility: Sits and stands without assistance or verbal cueing or loss of balance. Reports independent in room including bathroom privileges. Results CBC & Chem 7: 05/09/17 08:39 05/09/17 08:39 Labs: Abnormal Lab Results - Last 24 Hours (Table) 05/08/17 05/08/17 05/08/17 Range/Units 20:02 20:02 20:02 D-Dimer 1.13 H (<0.60) mg/L FEU VBG pH 7.44 H (7.31-7.41) VBG pCO2 32 L (37-51) mmHg VBG HCO3 21 L (24-28) mmol/L Potassium 3.2 L (3.5-5.1) mmol/L Chloride 109 H (98-107) mmol/L Carbon Dioxide (22-30) mmol/L Glucose 102 H (74-99) mg/dL POC Glucose (mg/dL) (75-99) mg/dL AST 38 H (14-36) U/L 05/09/17 05/09/17 Range/Units 07:46 08:39 D-Dimer (<0.60) mg/L FEU VBG pH (7.31-7.41) VBG pCO2 (37-51) mmHg VBG HCO3 (24-28) mmol/L Potassium (3.5-5.1) mmol/L Chloride 108 H (98-107) mmol/L Carbon Dioxide 18 L (22-30) mmol/L Glucose 235 H (74-99) mg/dL POC Glucose (mg/dL) 228 H (75-99) mg/dL AST (14-36) U/L Chest x-ray: report reviewed (Scarring at left base, stable.) CT scan - chest: report reviewed (CTA negative for PE.) Assessment and Plan (1) Acute exacerbation of chronic bronchitis Current Visit: No Status: Acute Code(s): J20.9 - ACUTE BRONCHITIS, UNSPECIFIED SNOMED Code(s): 207544535 Plan: Impression: 1. Medical debility. 2. Exacerbation COPD and chronic bronchitis. 3. Morbid obesity. 4. Chronic low back pain. 5. Sarcoid. 6. Hypertension. 7. Dyslipidemia. 8. Cardiovascular disease with history of HI, PE and DVT. 9. CHF. Comments and plan: At this time is prescribed PT and OT. Anticipate patient do well and do not anticipate the need for inpatient rehab. will follow closely with yourself though.
[2017-05-09] MEDS ORDERED: IPRATROPIUM-ALBUTEROL 3 ML NEB INHALATION PRN (11:21)
[2017-05-09 11:33] VITALS: PULSE 98
[2017-05-09] MEDS ORDERED: IPRATROPIUM-ALBUTEROL 3 ML NEB INHALATION SCH (12:00)
[2017-05-09 12:04] LABS: Glucose,Whole Blood 126 mg/dL (75-99)
[2017-05-09] MEDS ORDERED: INSULIN ASPART 100 UNIT/ML 1 ML 10 ML VIAL SQ SCH (12:30)
[2017-05-09] MEDS ORDERED: BUTALB/APAP/CAFF 50-325-40MG TAB PO PRN (12:38)
[2017-05-09] MEDS ORDERED: Acetaminophen-Codeine 300-30mg TAB PO PRN (12:38)
--- NOTE | 2017-05-09 13:02 | P.CNPUL ---
History of Present Illness Consult date: 05/09/17 Requesting physician: Gosnalo Church Reason for consult: dyspnea, cough, chest pain, COPD, hypoxemia, pulmonary fibrosis, abnormal CXR/CT Chief complaint: Shortness of breath, pain in the bilateral posterior chest History of present illness: Meme is a 46-year-old white female patient, well known to our service from her previous admissions for MRSA pneumonia, chronic hypoxic respiratory failure secondary to pulmonary fibrosis, COPD, sarcoidosis and recurrent pneumonias. Most recently she was in the hospital in April for complaints of right-sided chest wall pain, that was aggravated by deep inspiration. Radiographic studies from that admission showed background of mild chronic interstitial fibrosis, and an area of infiltrate in the right lung, with the possibility of pneumonia. However patient left AMA during the last admission. She had already been receiving vancomycin infusions through her PICC line, and she had already been on 50 mg of prednisone daily for her history of sarcoidosis. She is on home oxygen at 3 L per nasal cannula, she has a history of pulmonary embolism and DVTs in the past, on chronic anticoagulation with Coumadin. This time she states on Sunday she became increasingly dyspneic, could hardly walk to the bathroom, and started having increased pain along the posterior lower rib margins on both sides. She has been taking [place], however the pain became unbearable. She denied any fevers or chills. She was seen by Dr. Hicks on Sunday, who had decreased her maintenance prednisone dose from 50 mg to 20 mg, and was planning on gradually tapering it down further to [address] Hicks was planning on obtaining high resolution computed tomography scan to evaluate her underlying interstitial lung disease once her course of vancomycin was completed. Patient was also planning on becoming established with a different PCP, Dr. Springer. Chest x-ray from 05/08/2017 shows relative poor inspiration and slight blunting of left costophrenic angle. Chest CTA from 05/08/2017 showed no evidence of pulmonary embolism, and significant clearing of the pulmonary edema compared to the last exam on 04/10/2017. Patient is still receiving vancomycin infusions for the MRSA found in her bronchial washings from the bronchoscopy with BAL done on 04/13/[address] Noyola. Lab work shows no evidence of leukocytosis, her WBC is within normal limits at 9.2, hemoglobin is stable at 14.7, her INR was found to be subtherapeutic at 1.0, patient is on Coumadin, serum potassium was low on admission at 3.2, renal profile was within normal limits, with B UN of 12, and creatinine of 0.60, liver enzymes were within normal limits, troponin and cardiac enzymes were negative 1, proBNP was normal at 51. Patient did not have any evidence of fevers while in the hospital, she is currently on 4 L per nasal cannula with a pulse ox at 96%. Her other vitals are stable. She was placed on her home meds , on IV Solu-Medrol, Lovenox 80 mg daily, nebulized treatments, she is continuing her vancomycin, and she was admitted for further management of her dyspnea and bilateral posterior chest wall pain. Review of Systems All systems: negative Constitutional: Denies chills, Denies fever Eyes: denies blurred vision, denies pain Ears, nose, mouth and throat: Denies headache, Denies sore throat Cardiovascular: Denies chest pain, Denies shortness of breath Respiratory: Reports dyspnea, Reports home oxygen, Reports pain on inspiration, Denies cough Gastrointestinal: Denies abdominal pain, Denies diarrhea, Denies nausea, Denies vomiting Genitourinary: Denies dysuria, Denies hematuria Musculoskeletal: Denies myalgias Integumentary: Denies pruritus, Denies rash Neurological: Denies numbness, Denies weakness Psychiatric: Denies anxiety, Denies depression Endocrine: Denies fatigue, Denies weight change Past Medical History Past Medical History: Blood Disorder, Heart Failure, COPD, Deep Vein Thrombosis (DVT), Hyperlipidemia, Hypertension, Myocardial Infarction ([place]), Musculoskeletal Disorder, Pneumonia, Pulmonary Embolus ([place]) Additional Past Medical History / Comment(s): PE 2012; Sarcoidosis diagnosed in 2015 following a bronchoscopy and lung biopsy done at [facility] and she was started on predniosone and she took the therapy for almost 1 year, polycythemia, overweight, bilateral PE (2011, 2015), bilateral DVTs, fibromyalgia, bipolar disorder, degenerative disk disorder, coronary artery disease along with previous history of a [place] and ventilator dependent respiratory failure with MRSA pneumonia for which the patient was hospitalized [facility] in 2012. Viral meningitis in October 2014. Last Myocardial Infarction Date:: February 15, 2013 History of Any Multi-Drug Resistant Organisms: MRSA Date of last positivie culture/infection: 04/13/17 MDRO Source:: BRONCH Past Surgical History: Section, Cholecystectomy, Heart Catheterization , Hernia Repair, Orthopedic Surgery Additional Past Surgical History / Comment(s): Lt ankle surgery,BRONCH Past Anesthesia/Blood Transfusion Reactions: Motion Sickness, Postoperative Nausea & Vomiting (PONV) Additional Past Anesthesia/Blood Transfusion Reaction / Comment(s): pt stated that last April she coded due to anesthetic Past Psychological History: Anxiety, Bipolar, Depression, Panic Disorder Additional Psychological History / Comment(s): Lives with her boyfriend. Regretfully she is an ongoing tobacco smoker despite her progressive and worsening pulmonary disease. Does not relate to significant alcohol use no recreational drug use. Currently not working. No experience. No recent travel. No animal exposures. Did leave the hospital AMA in March 2017. Difficulties with ongoing medical noncompliance Smoking Status: Former smoker Past Alcohol Use History: None Reported Additional Past Alcohol Use History / Comment(s): patient lives with her significant other. She states she has quit smoking since her last admission. She denies any alcohol use or recreational drug use. Patient is currently not working. No service. No recent travel. No animal exposures. She did leave the hospital AMA in March 2017. Difficulties with ongoing medical noncompliance. Past Drug Use History: None Reported - Past Family History Father Family Medical History: Blood Disorder, Congestive Heart Failure (CHF), CVA/TIA , Deep Vein Thrombosis (DVT), Myocardial Infarction ([place]) Additional Family Medical History / Comment(s): polycythemia Mother Family Medical History: Congestive Heart Failure (CHF), Diabetes Mellitus, Deep Vein Thrombosis (DVT), Myocardial Infarction ([place]), Musculoskeletal Disorder Additional Family Medical History / Comment(s): DDD Sister(s) Family Medical History: No Reported History Brother(s) Family Medical History: No Reported History Son(s) Family Medical History: No Reported History Daughter(s) Family Medical History: No Reported History Medications and Allergies Home Medications Medication Instructions Recorded Confirmed Type Cetirizine HCl [Zyrtec] 10 mg PO DAILY PRN 07/16/14 05/08/17 History Ergocalciferol [Vitamin D2 50,000 units PO TH 07/16/14 05/08/17 History (DRISDOL)] Albuterol Inhaler [Ventolin Hfa 2 puff INHALATION RT-Q6H PRN #1 08/20/15 Rx Inhaler] puff FLUoxetine HCL [PROzac] 20 mg PO DAILY #30 capsule 08/20/15 05/08/17 Rx Metoprolol Tartrate [Lopressor] 50 mg PO BID #60 tab 08/20/15 05/08/17 Rx Montelukast [Singulair] 10 mg PO HS #30 tab 08/20/15 05/08/17 Rx lamoTRIgine [LaMICtal] 200 mg PO DAILY 03/22/16 05/08/17 History Baclofen [Lioresal] 20 mg PO TID PRN 10/18/16 05/08/17 History Bumetanide 2 mg PO BID 10/18/16 05/08/17 History Butalb/APAP/Caff 50-325-40Mg 1 tab PO Q4H PRN 10/18/16 05/08/17 History [Fioricet 50-325-40] Ondansetron HCl [Zofran] 4 mg PO DAILY PRN 10/18/16 05/08/17 History Pregabalin [Lyrica] 100 mg PO BID 10/18/16 05/08/17 History ALPRAZolam [Xanax] 0.5 mg PO Q4HR PRN 04/10/17 05/08/17 History Acetaminophen-Codeine 300-30mg 1 tab PO Q4H PRN 04/10/17 05/08/17 History [Tylenol #3] Beclomethasone Dipropionate [Qvar 2 puff INHALATION RT-BID 04/10/17 05/08/17 History 80 mcg] Ipratropium-Albuterol Nebulize 3 ml INHALATION RT-QID PRN 04/10/17 05/08/17 History [Duoneb 0.5 mg-3 mg/3 ml Soln] Mirtazapine [Remeron] 45 mg PO HS 04/10/17 05/08/17 History Potassium Chloride [Klor-Con 20 meq PO DAILY 04/10/17 05/08/17 History Sprinkle] predniSONE 50 mg PO DAILY 04/18/17 05/08/17 History HYDROcodone/APAP 7.5-325MG [[place] 1 tab PO Q6HR PRN #24 tab 04/22/17 05/08/17 Rx 7.5-325] Warfarin [Coumadin] 10 mg PO HS 04/24/17 05/08/17 History Promethazine/Dextromethorphan 5 ml PO Q6HR PRN 04/26/17 05/08/17 History [Promethazine-Dm Syrup] Vancomycin 2,000 mg IVPB Q8H 05/08/17 05/08/17 History Allergies Allergy/AdvReac Type Severity Reaction Status Date / Time ketorolac tromethamine Allergy Severe Anaphylaxis Verified 05/08/17 20:26 [From Toradol] Opioids - Morphine Analogues Allergy Mild Itching Verified 05/08/17 20:26 Iodinated Contrast- Oral and Allergy Unknown Verified 05/08/17 20:26 IV Dye rivaroxaban [From Xarelto] Allergy Rash/Hives Verified 05/08/17 20:26 sumatriptan [From Imitrex] Allergy Anaphylaxis Verified 05/08/17 20:26 sumatriptan succinate Allergy Anaphylaxis Verified 05/08/17 20:26 [From Imitrex] morphine AdvReac Severe Itching Verified 05/08/17 20:26 iodine AdvReac Intermediate Itching Verified 05/08/17 20:26 tramadol AdvReac Anaphylaxis Verified 05/08/17 20:26 vancomycin AdvReac Itching Verified 05/08/17 20:26 Rich wipes AdvReac Severe Rash/Hives Uncoded 04/26/17 16:43 Physical Exam Vitals: Vital Signs Temp Pulse Pulse Resp BP BP Pulse Ox 05/09/17 11:32 98 05/09/17 11:17 96 05/09/17 07:41 98 05/09/17 07:31 104 H 18 96 05/09/17 07:00 97.7 F 102 H 18 114/63 96 05/09/17 04:26 92 05/09/17 01:00 96 20 05/09/17 00:20 97.7 F 96 24 115/62 05/08/17 23:43 98.3 F 95 20 129/55 97 05/08/17 23:37 96 05/08/17 23:24 92 05/08/17 23:19 92 22 139/80 96 05/08/17 22:53 92 22 128/67 95 05/08/17 22:08 90 20 139/80 96 05/08/17 21:24 91 20 129/62 96 05/08/17 20:36 96 05/08/17 20:35 24 05/08/17 20:32 101 H 22 128/85 98 05/08/17 20:29 95 05/08/17 19:38 98.3 F 102 H 22 155/80 99 Intake and Output 05/08/17 05/09/17 05/09/17 22:59 06:59 14:59 Intake Total 500 Balance 500 Intake: Oral 500 Other: # Voids 1 Weight 105.233 kg 111 kg GENERAL EXAM: Alert, obese 46-year-old white female, appears to be slightly flushed but comfortable in no apparent distress. HEAD: Normocephalic/atraumatic. EYES: Normal reaction of pupils, equal size. Conjunctiva pink, sclera white. NOSE: Clear with pink turbinates. THROAT: No erythema or exudates. NECK: No masses, no JVD, no thyroid enlargement, no adenopathy. CHEST: No chest wall deformity. Symmetrical expansion. LUNGS: Diminished air entry bilaterally, with a few wheezes over left upper lobe CVS: Regular rate and rhythm, normal S1 and S2, no gallops, no murmurs, no rubs ABDOMEN: Soft, nontender. No hepatosplenomegaly, normal bowel sounds, no guarding or rigidity. EXTREMITIES: No clubbing, no edema, no cyanosis, 2+ pulses and upper and lower extremities. MUSCULOSKELETAL: Muscle strength and tone normal. SPINE: No scoliosis or deformity SKIN: No rashes CENTRAL NERVOUS SYSTEM: Alert and oriented -3. No focal deficits, tone is normal in all 4 extremities. PSYCHIATRIC: Alert and oriented -3. Appropriate affect. Intact judgment and insight. Results - Laboratory Findings CBC and BMP: 05/09/17 08:39 05/09/17 08:39 PT/INR, D-dimer PT 10.0 sec (9.0-12.0) 05/08/17 20:02 INR 1.0 (<1.2) 05/08/17 20:02 D-Dimer 1.13 mg/L FEU (<0.60) H 05/08/17 20:02 Abnormal lab findings: Abnormal Labs 05/08/17 05/08/17 05/08/17 20:02 20:02 20:02 D-Dimer 1.13 H VBG pH 7.44 H VBG pCO2 32 L VBG HCO3 21 L Potassium 3.2 L Chloride 109 H Carbon Dioxide Glucose 102 H POC Glucose (mg/dL) AST 38 H 05/09/17 05/09/17 05/09/17 07:46 08:39 12:01 D-Dimer VBG pH VBG pCO2 VBG HCO3 Potassium Chloride 108 H Carbon Dioxide 18 L Glucose 235 H POC Glucose (mg/dL) 228 H 126 H AST - Diagnostic Findings Chest x-ray: report reviewed CT scan - chest: report reviewed Additional studies: Twelve-lead EKG reviewed Assessment and Plan Plan: Assessment: #1. Acute worsening dyspnea, and bilateral posterior chest wall pain, the etiology of which is unclear. CT chest from 05/08/2017 was negative for any evidence of pulmonary embolism, and there was actually significant clearing of the pulmonary edema compared to the last CT on 04/10/2017. Chest x-ray from 08/2017 showed some scarring at the left base, which is unchanged from previous exams. #2. Mild COPD exacerbation #3. Recent hospitalization for right-sided chest wall pain, pleuritic in nature , at that time an area of infiltrate on the right was seen, which is not present on the radiographic studies during this admission. Patient had signed out AMA #4. Bilateral MRSA pneumonia, patient was hospitalized in the beginning of April, was critically ill during that admission, requiring ICU management, did undergo bronchoscopy with BAL by Dr. Noyola on 04/13/2017, bronchoscopy wash cultures were positive for MRSA. Patient was sent home with a PICC line in her left arm, she is still receiving vancomycin infusions #5. Chronic hypoxic respiratory failure, due to sarcoidosis, pulmonary fibrosis , COPD, suspect hypoventilation syndrome due to body habitus #6. Sarcoidosis, currently on maintenance dose of prednisone of 20 mg daily. Had been on 50 mg of prednisone for over a year, most recently on 05/07/2017 Dr. Hicks decrease the dose to 20 mg daily, and the plan is to proceed tapering it down to 10 mg daily, and do a follow-up high-resolution CT to evaluate the interstitial lung disease #7. History of PEs, and DVTs, in 2012 in 2016, on long-term anticoagulation with Coumadin, INR on admission was subtherapeutic at 1.0, question medical compliance #8. Nicotine addiction, ongoing #9. Fibromyalgia, and chronic pain syndrome, including bilateral posterior chest wall pain with recurrent hospitalization for the same #10. Obesity with features of obstructive sleep apnea #11. Anxiety #12. Coronary artery disease, with history of myocardial infarction #13. Recurrent hospitalizations for respiratory complications #14. Bipolar disorder #15. Degenerative disc disease #16. Hypertension, hyperlipidemia #17. Medical debility Plan: Continue IV steroids, continue vancomycin infusions, continue anticoagulation with Coumadin and Lovenox. Continue DuoNeb nebulized treatments. Continue home meds. Continue pain control. We will consult Dr. Butler for pain management. CTA chest and chest x-ray were negative for any acute findings, negative for any evidence of pulmonary embolism, negative for any infiltrates. Patient could be discharged home today once seen by Dr. Butler, on her maintenance nebulizers and inhalers. Continue vancomycin infusions per ID service recommendations. Follow up with Dr. Hicks in the office in 7-10 days I performed a history & physical examination of the patient and discussed their management with my nurse practitioner, Cydney Hart. I reviewed the nurse practitioner's note and agree with the documented findings and plan of care. Lung sounds are positive for a few wheezes throughout the lung diana. The findings and the impression was discussed with the patient. I attest to the documentation by the nurse practitioner. Time with Patient: Greater than 30
--- NOTE | 2017-05-09 14:55 | P.HPIM ---
History of Present Illness 46-year-old female with a history of pulmonary fibrosis, pleurisy, and pneumonia who is chronically on 3 L of O2 presents emergency department for worsening shortness of breath and pain in her chest. She states that it's been going on for most of the day. She states that the pain has gotten unbearable. She states that typically she has pain in her right chest however now it is in her (she's been taking [place] without relief. She states that she's also felt extremely short of breath today. She did note that her INR was subtherapeutic yesterday and is concerned because she has a history of PE and DVT. She states that she has been taking her Coumadin as prescribed. She did stop taking the Lovenox injections a couple of days ago however has continued on her Coumadin. She denies any new swelling in her lower extremity. No abdominal pain. No fevers or chills. She is followed by Dr. Hicks for pulmonology. No other complaints. And underwent extensive workup here and clearing CT of the chest which did not show any significant abnormality except for clearing pulmonary edema. Compared to previous radiological testings. Patient denied any fever chills patient was evaluated by pulmonology patient is already on oral steroids tapering doses Dr. Hicks as an outpatient patient is complaining of pleuritic pain continued pleuritic pain. Patient had multiple hospitalizations including recent MRSA pneumonia for which patient is on IV vancomycin still receiving IV vancomycin homecare follows her at home. Patient will be discharged today to follow with Dr. Hicks and primary care patient is an outpatient. Review of Systems REVIEW OF SYSTEMS: CONSTITUTIONAL: No fever, no malaise, no fatigue. HEENT: No recent visual problems or hearing problems. Denied any sore throat. CARDIOVASCULAR: No chest pain, orthopnea, PND, no palpitations, no syncope. PULMONARY: As mentioned in HPI GASTROINTESTINAL: No diarrhea, no nausea, no vomiting, no abdominal pain. Normoactive bowel sounds. NEUROLOGICAL: No headaches, no weakness, no numbness. HEMATOLOGICAL: Denies any bleeding or petechiae. GENITOURINARY: Denies any burning micturition, frequency, or urgency. MUSCULOSKELETAL/RHEUMATOLOGICAL: Denies any joint pain, swelling, or any muscle pain. ENDOCRINE: Denies any polyuria or polydipsia. The rest of the 14-point review of systems is negative. Past Medical History Past Medical History: Blood Disorder, Heart Failure, COPD, Deep Vein Thrombosis (DVT), Hyperlipidemia, Hypertension, Myocardial Infarction ([place]), Musculoskeletal Disorder, Pneumonia, Pulmonary Embolus (PE) Additional Past Medical History / Comment(s): PE 2012; Sarcoidosis diagnosed in 2015 following a bronchoscopy and lung biopsy done at [facility] and she was started on predniosone and she took the therapy for almost 1 year, polycythemia, overweight, bilateral PE (2011, 2015), bilateral DVTs, fibromyalgia, bipolar disorder, degenerative disk disorder, coronary artery disease along with previous history of a [place] and ventilator dependent respiratory failure with MRSA pneumonia for which the patient was hospitalized [facility] in 2012. Viral meningitis in October 2014. Last Myocardial Infarction Date:: February 15, 2013 History of Any Multi-Drug Resistant Organisms: MRSA Date of last positivie culture/infection: 04/13/17 MDRO Source:: BRONCH Past Surgical History: Section, Cholecystectomy, Heart Catheterization , Hernia Repair, Orthopedic Surgery Additional Past Surgical History / Comment(s): Lt ankle surgery,BRONCH Past Anesthesia/Blood Transfusion Reactions: Motion Sickness, Postoperative Nausea & Vomiting (PONV) Additional Past Anesthesia/Blood Transfusion Reaction / Comment(s): pt stated that last April she coded due to anesthetic Past Psychological History: Anxiety, Bipolar, Depression, Panic Disorder Additional Psychological History / Comment(s): Lives with her boyfriend. Regretfully she is an ongoing tobacco smoker despite her progressive and worsening pulmonary disease. Does not relate to significant alcohol use no recreational drug use. Currently not working. No experience. No recent travel. No animal exposures. Did leave the hospital AMA in March 2017. Difficulties with ongoing medical noncompliance Smoking Status: Former smoker Past Alcohol Use History: None Reported Additional Past Alcohol Use History / Comment(s): patient lives with her significant other. She states she has quit smoking since her last admission. She denies any alcohol use or recreational drug use. Patient is currently not working. No service. No recent travel. No animal exposures. She did leave the hospital AMA in March 2017. Difficulties with ongoing medical noncompliance. Past Drug Use History: None Reported - Past Family History Father Family Medical History: Blood Disorder, Congestive Heart Failure (CHF), CVA/TIA , Deep Vein Thrombosis (DVT), Myocardial Infarction ([place]) Additional Family Medical History / Comment(s): polycythemia Mother Family Medical History: Congestive Heart Failure (CHF), Diabetes Mellitus, Deep Vein Thrombosis (DVT), Myocardial Infarction ([place]), Musculoskeletal Disorder Additional Family Medical History / Comment(s): DDD Sister(s) Family Medical History: No Reported History Brother(s) Family Medical History: No Reported History Son(s) Family Medical History: No Reported History Daughter(s) Family Medical History: No Reported History Medications and Allergies Home Medications Medication Instructions Recorded Confirmed Type Cetirizine HCl [Zyrtec] 10 mg PO DAILY PRN 07/16/14 05/08/17 History Ergocalciferol [Vitamin D2 50,000 units PO TH 07/16/14 05/08/17 History (DRISDOL)] Albuterol Inhaler [Ventolin Hfa 2 puff INHALATION RT-Q6H PRN #1 08/20/15 Rx Inhaler] puff FLUoxetine HCL [PROzac] 20 mg PO DAILY #30 capsule 08/20/15 05/08/17 Rx Metoprolol Tartrate [Lopressor] 50 mg PO BID #60 tab 08/20/15 05/08/17 Rx Montelukast [Singulair] 10 mg PO HS #30 tab 08/20/15 05/08/17 Rx lamoTRIgine [LaMICtal] 200 mg PO DAILY 03/22/16 05/08/17 History Baclofen [Lioresal] 20 mg PO TID PRN 10/18/16 05/08/17 History Bumetanide 2 mg PO BID 10/18/16 05/08/17 History Butalb/APAP/Caff 50-325-40Mg 1 tab PO Q4H PRN 10/18/16 05/08/17 History [Fioricet 50-325-40] Ondansetron HCl [Zofran] 4 mg PO DAILY PRN 10/18/16 05/08/17 History Pregabalin [Lyrica] 100 mg PO BID 10/18/16 05/08/17 History ALPRAZolam [Xanax] 0.5 mg PO Q4HR PRN 04/10/17 05/08/17 History Acetaminophen-Codeine 300-30mg 1 tab PO Q4H PRN 04/10/17 05/08/17 History [Tylenol #3] Beclomethasone Dipropionate [Qvar 2 puff INHALATION RT-BID 04/10/17 05/08/17 History 80 mcg] Ipratropium-Albuterol Nebulize 3 ml INHALATION RT-QID PRN 04/10/17 05/08/17 History [Duoneb 0.5 mg-3 mg/3 ml Soln] Mirtazapine [Remeron] 45 mg PO HS 04/10/17 05/08/17 History Potassium Chloride [Klor-Con 20 meq PO DAILY 04/10/17 05/08/17 History Sprinkle] predniSONE 50 mg PO DAILY 04/18/17 05/08/17 History HYDROcodone/APAP 7.5-325MG [[place] 1 tab PO Q6HR PRN #24 tab 04/22/17 05/08/17 Rx 7.5-325] Warfarin [Coumadin] 10 mg PO HS 04/24/17 05/08/17 History Promethazine/Dextromethorphan 5 ml PO Q6HR PRN 04/26/17 05/08/17 History [Promethazine-Dm Syrup] Vancomycin 2,000 mg IVPB Q8H 05/08/17 05/08/17 History Allergies Allergy/AdvReac Type Severity Reaction Status Date / Time ketorolac tromethamine Allergy Severe Anaphylaxis Verified 05/08/17 20:26 [From Toradol] Opioids - Morphine Analogues Allergy Mild Itching Verified 05/08/17 20:26 Iodinated Contrast- Oral and Allergy Unknown Verified 05/08/17 20:26 IV Dye rivaroxaban [From Xarelto] Allergy Rash/Hives Verified 05/08/17 20:26 sumatriptan [From Imitrex] Allergy Anaphylaxis Verified 05/08/17 20:26 sumatriptan succinate Allergy Anaphylaxis Verified 05/08/17 20:26 [From Imitrex] morphine AdvReac Severe Itching Verified 05/08/17 20:26 iodine AdvReac Intermediate Itching Verified 05/08/17 20:26 tramadol AdvReac Anaphylaxis Verified 05/08/17 20:26 vancomycin AdvReac Itching Verified 05/08/17 20:26 Rich wipes AdvReac Severe Rash/Hives Uncoded 04/26/17 16:43 Physical Exam Vitals: Vital Signs Temp Pulse Pulse Resp BP BP Pulse Ox 05/09/17 11:32 98 05/09/17 11:17 96 05/09/17 07:41 98 05/09/17 07:31 104 H 18 96 05/09/17 07:00 97.7 F 102 H 18 114/63 96 05/09/17 04:26 92 05/09/17 01:00 96 20 05/09/17 00:20 97.7 F 96 24 115/62 05/08/17 23:43 98.3 F 95 20 129/55 97 05/08/17 23:37 96 05/08/17 23:24 92 05/08/17 23:19 92 22 139/80 96 05/08/17 22:53 92 22 128/67 95 05/08/17 22:08 90 20 139/80 96 05/08/17 21:24 91 20 129/62 96 05/08/17 20:36 96 05/08/17 20:35 24 05/08/17 20:32 101 H 22 128/85 98 05/08/17 20:29 95 05/08/17 19:38 98.3 F 102 H 22 155/80 99 Intake and Output 05/08/17 05/09/17 05/09/17 22:59 06:59 14:59 Intake Total 500 Balance 500 Intake: Oral 500 Other: # Voids 1 Weight 105.233 kg 111 kg PHYSICAL EXAMINATION: GENERAL: The patient is alert and oriented x3, not in any acute distress. Well developed, well nourished. HEENT: Pupils are round and equally reacting to light. EOMI. No scleral icterus. No conjunctival pallor. Normocephalic, atraumatic. No pharyngeal erythema. No thyromegaly. CARDIOVASCULAR: S1 and S2 present. No murmurs, rubs, or gallops. PULMONARY: Chest is clear to auscultation, no wheezing or crackles. ABDOMEN: Soft, nontender, nondistended, normoactive bowel sounds. No palpable organomegaly. MUSCULOSKELETAL: No joint swelling or deformity. EXTREMITIES: No cyanosis, clubbing, or pedal edema. NEUROLOGICAL: Gross neurological examination did not reveal any focal deficits. SKIN: No rashes. Results CBC & Chem 7: 05/09/17 08:39 05/09/17 08:39 Labs: Abnormal Lab Results - Last 24 Hours (Table) 05/08/17 05/08/17 05/08/17 Range/Units 20:02 20:02 20:02 D-Dimer 1.13 H (<0.60) mg/L FEU VBG pH 7.44 H (7.31-7.41) VBG pCO2 32 L (37-51) mmHg VBG HCO3 21 L (24-28) mmol/L Potassium 3.2 L (3.5-5.1) mmol/L Chloride 109 H (98-107) mmol/L Carbon Dioxide (22-30) mmol/L Glucose 102 H (74-99) mg/dL POC Glucose (mg/dL) (75-99) mg/dL AST 38 H (14-36) U/L 05/09/17 05/09/17 05/09/17 Range/Units 07:46 08:39 12:01 D-Dimer (<0.60) mg/L FEU VBG pH (7.31-7.41) VBG pCO2 (37-51) mmHg VBG HCO3 (24-28) mmol/L Potassium (3.5-5.1) mmol/L Chloride 108 H (98-107) mmol/L Carbon Dioxide 18 L (22-30) mmol/L Glucose 235 H (74-99) mg/dL POC Glucose (mg/dL) 228 H 126 H (75-99) mg/dL AST (14-36) U/L Thrombosis Risk Factor Assmnt - Choose All That Apply Any of the Below Risk Factors Present?: Yes Each Factor Represents 1 point: Abnormal pulmonary function (COPD), Age 41-60 years, Obesity (BMI >25), Serious lung disease incl. pneumonia (< 1month), Swollen legs (current) Each Risk Factor Represents 3 Points: History of DVT/PE Thrombosis Risk Factor Assessment Total Risk Factor Score: 8 Thrombosis Risk Factor Assessment Level: High Risk Assessment and Plan Plan: -Shortness of breath: Which completely resolved may be related to COPD. Patient has multiple pulmonary comorbidities and the patient is also being treated for recent MRSA pneumonia. -Pulmonary fibrosis chronic hypoxic respiratory failure patient uses 3 L of onset at home patient is present 4 L we'll taper it down to 3 L and see how she does if she is doing okay patient will be discharged to follow Dr. Hicks lung exam is clear to auscultation clear. -Continued pleurisy -Sleep apnea -COPD with possibility of exacerbation -Fibromyalgia -Obesity -Bipolar disorder -Hypertension -Hyperlipidemia Patient will be discharged on tapering dose of steroids which she already has at home patient will follow with PCP and Dr. Hicks as an outpatient
--- NOTE | 2017-05-09 14:55 | P.DS ---
Providers Date of admission: 05/08/17 23:15 Attending physician: Gonsalo Church Consults: 05/08/17 23:15 Consult Physician Routine Consulting Provider: Gayle Hicks Consult Reason/Comments: SOB, Pulmonary Fibrosis Do you want consulting provider notified?: Yes, Notify in am 05/09/17 09:31 Consult Physician Routine Consulting Provider: Bob Butler Consult Reason/Comments: pain management Do you want consulting provider notified?: Yes 05/09/17 11:40 Consult Physician Routine Consulting Provider: Kobi Lott Consult Reason/Comments: iv antibiotic management Do you want consulting provider notified?: Yes Primary care physician: [facility] Course: As described in HPI Patient Condition at Discharge: Stable Plan - Discharge Summary New Discharge Prescriptions: No Action Cetirizine HCl [Zyrtec] 10 mg PO DAILY PRN PRN Reason: Allergy Symptoms Ergocalciferol [Vitamin D2 (DRISDOL)] 50,000 units PO TH Albuterol Inhaler [Ventolin Hfa Inhaler] 2 puff INHALATION RT-Q6H PRN #1 puff PRN Reason: Shortness Of Breath FLUoxetine HCL [PROzac] 20 mg PO DAILY #30 capsule Metoprolol Tartrate [Lopressor] 50 mg PO BID #60 tab Montelukast [Singulair] 10 mg PO HS #30 tab lamoTRIgine [LaMICtal] 200 mg PO DAILY Pregabalin [Lyrica] 100 mg PO BID Ondansetron HCl [Zofran] 4 mg PO DAILY PRN PRN Reason: Nausea Bumetanide 2 mg PO BID Butalb/APAP/Caff 50-325-40Mg [Fioricet 50-325-40] 1 tab PO Q4H PRN PRN Reason: Migraine Headache Baclofen [Lioresal] 20 mg PO TID PRN PRN Reason: Muscle Spasm Acetaminophen-Codeine 300-30mg [Tylenol #3] 1 tab PO Q4H PRN PRN Reason: RIGHT POSTERIOR CHEST PAIN Potassium Chloride [Klor-Con Sprinkle] 20 meq PO DAILY Mirtazapine [Remeron] 45 mg PO HS Beclomethasone Dipropionate [Qvar 80 mcg] 2 puff INHALATION RT-BID ALPRAZolam [Xanax] 0.5 mg PO Q4HR PRN PRN Reason: Anxiety Ipratropium-Albuterol Nebulize [Duoneb 0.5 mg-3 mg/3 ml Soln] 3 ml INHALATION RT-QID PRN PRN Reason: Shortness Of Breath predniSONE 50 mg PO DAILY HYDROcodone/APAP 7.5-325MG [[place] 7.5-325] 1 tab PO Q6HR PRN #24 tab PRN Reason: Severe Pain Warfarin [Coumadin] 10 mg PO HS Promethazine/Dextromethorphan [Promethazine-Dm Syrup] 5 ml PO Q6HR PRN PRN Reason: Cough Vancomycin 2,000 mg IVPB Q8H Discharge Medication List Cetirizine HCl [Zyrtec] 10 mg PO DAILY PRN 07/16/14 [History] Ergocalciferol [Vitamin D2 (DRISDOL)] 50,000 units PO TH 07/16/14 [History] Albuterol Inhaler [Ventolin Hfa Inhaler] 2 puff INHALATION RT-Q6H PRN #1 puff [Rx] FLUoxetine HCL [PROzac] 20 mg PO DAILY #30 capsule 08/20/15 [Rx] Metoprolol Tartrate [Lopressor] 50 mg PO BID #60 tab 08/20/15 [Rx] Montelukast [Singulair] 10 mg PO HS #30 tab 08/20/15 [Rx] lamoTRIgine [LaMICtal] 200 mg PO DAILY 03/22/16 [History] Baclofen [Lioresal] 20 mg PO TID PRN 10/18/16 [History] Bumetanide 2 mg PO BID 10/18/16 [History] Butalb/APAP/Caff 50-325-40Mg [Fioricet 50-325-40] 1 tab PO Q4H PRN 10/18/16 [ History] Ondansetron HCl [Zofran] 4 mg PO DAILY PRN 10/18/16 [History] Pregabalin [Lyrica] 100 mg PO BID 10/18/16 [History] ALPRAZolam [Xanax] 0.5 mg PO Q4HR PRN 04/10/17 [History] Acetaminophen-Codeine 300-30mg [Tylenol #3] 1 tab PO Q4H PRN 04/10/17 [History] Beclomethasone Dipropionate [Qvar 80 mcg] 2 puff INHALATION RT-BID 04/10/17 [ History] Ipratropium-Albuterol Nebulize [Duoneb 0.5 mg-3 mg/3 ml Soln] 3 ml INHALATION RT -QID PRN 04/10/17 [History] Mirtazapine [Remeron] 45 mg PO HS 04/10/17 [History] Potassium Chloride [Klor-Con Sprinkle] 20 meq PO DAILY 04/10/17 [History] predniSONE 50 mg PO DAILY 04/18/17 [History] HYDROcodone/APAP 7.5-325MG [[place] 7.5-325] 1 tab PO Q6HR PRN #24 tab 04/22/17 [ Rx] Warfarin [Coumadin] 10 mg PO HS 04/24/17 [History] Promethazine/Dextromethorphan [Promethazine-Dm Syrup] 5 ml PO Q6HR PRN 04/26/17 [History] Vancomycin 2,000 mg IVPB Q8H 05/08/17 [History] Follow up Appointment(s)/Referral(s): Liz Koch MD [Primary Care Provider] - 1 Week Discharge Disposition: HOME WITH HOME HEALTH SERVICES
[2017-05-09] MEDS ORDERED: WARFARIN 10 MG TAB PO SCH (18:00)
[2017-05-09] MEDS ORDERED: MONTELUKAST 10 MG TAB PO SCH (21:00)
[2017-05-09] MEDS ORDERED: MIRTAZAPINE 45 MG TABLET PO SCH (21:00)
[2017-05-10] MEDS ORDERED: ERGOCALCIFEROL 50,000 UNIT CAP PO SCH (09:00)
== END 2017-05-09 15:28 | disposition home health service (06) ==
LOC: EC 19:35 → 4MS4W 23:15
PROVIDERS: ADMIT Hospitalist; ATTEND Hospitalist
DX: R06.02 Shortness of breath (principal); R00.0 Tachycardia, unspecified; R79.89 Other specified abnormal findings of blood chemistry; R07.81 Pleurodynia; R06.00 Dyspnea, unspecified; R07.89 Other chest pain; J84.10 Pulmonary fibrosis, unspecified; J96.11 Chronic respiratory failure with hypoxia; Z99.81 Dependence on supplemental oxygen; R09.1 Pleurisy; G47.33 Obstructive sleep apnea (adult) (pediatric); M79.7 Fibromyalgia; F31.9 Bipolar disorder, unspecified; I50.9 Heart failure, unspecified; I11.0 Hypertensive heart disease with heart failure; E78.5 Hyperlipidemia, unspecified; J44.0 Chronic obstructive pulmonary disease with (acute) lower respiratory infection; E66.3 Overweight; E66.01 Morbid (severe) obesity due to excess calories; Z68.41 Body mass index [BMI] 40.0-44.9, adult; Z86.718 Personal history of other venous thrombosis and embolism; J15.212 Pneumonia due to Methicillin resistant Staphylococcus aureus; G89.4 Chronic pain syndrome; Z91.19 Patient's noncompliance with other medical treatment and regimen; Z87.891 Personal history of nicotine dependence; F41.0 Panic disorder [episodic paroxysmal anxiety]; Z86.711 Personal history of pulmonary embolism; I25.2 Old myocardial infarction; D86.0 Sarcoidosis of lung; D75.1 Secondary polycythemia; Z86.14 Personal history of Methicillin resistant Staphylococcus aureus infection; I25.10 Atherosclerotic heart disease of native coronary artery without angina pectoris; Z88.1 Allergy status to other antibiotic agents; Z88.8 Allergy status to other drugs, medicaments and biological substances; Z91.041 Radiographic dye allergy status; Z88.5 Allergy status to narcotic agent; Z79.51 Long term (current) use of inhaled steroids; Z91.048 Other nonmedicinal substance allergy status; Z79.899 Other long term (current) drug therapy; Z79.01 Long term (current) use of anticoagulants; Z95.828 Presence of other vascular implants and grafts; Z79.52 Long term (current) use of systemic steroids; Z83.3 Family history of diabetes mellitus; Z87.01 Personal history of pneumonia (recurrent); M54.5 Low back pain
CPT/HCPCS: 99285; 96375 ×4; 96376 ×4; 96372 ×3; 96365; 96366; 36415; 94640 ×4; 93005; 97162; 85379; 83880; 80053 ×2; 82553; 82803; 83735; 84484; 85025 ×2; 85610; 85730; 71046; 71275; G0378 ×2; J3370; J1170 ×2; J1200 ×2; J2930 ×2; Q9967; J1650 ×2; J7512

== ENCOUNTER 2017-06-06 16:17 | Emergency (ER) | payer OTHER ==
[2017-06-06 16:24] VITALS: BP 119/66; TEMP 98.7
[2017-06-06 16:41] VITALS: RESP 24
[2017-06-06] MEDS ORDERED: SODIUM CHLORIDE 0.9% 1,000 ML IV STA (16:48)
[2017-06-06] MEDS ORDERED: methylPREDNISolone SOD SUCCI 125 MG/2 ML VIAL IV STA (16:49)
[2017-06-06] MEDS: IPRATROPIUM-ALBUTEROL 3 ML NEB INHALATION STA ×2 (17:01→17:07)
[2017-06-06 17:08] LABS: Basophils # (A) 0.1 k/uL (0-0.2); Basophils % (A) 1 %; Eosinophils # (A) 0.2 k/uL (0-0.7); Eosinophils % (A) 1 %; HCT 42.5 % (34.0-46.0); HGB 15.7 gm/dL (11.4-16.0); Hyperchromasia Slight; Lymphocytes # (A) 2.9 k/uL (1.0-4.8); Lymphocytes % (A) 26 %; MCH 32.4 pg (25.0-35.0); MCHC 36.9 g/dL (31.0-37.0); MCV 87.9 fL (80.0-100.0); Mean Platelet Volume 7.4; Monocytes # (A) 0.6 k/uL (0-1.0); Monocytes % (A) 6 %; Neutrophils # (A) 7.2 k/uL (1.3-7.7); Neutrophils % (A) 64 %; Platelet Count 301 k/uL (150-450); RBC 4.84 m/uL (3.80-5.40); WBC 11.2 k/uL (3.8-10.6)
[2017-06-06 17:09] LABS: INR 1.2 (<1.2)
[2017-06-06 17:10] LABS: Partial Thromboplastin Time 23.7 sec (22.0-30.0); Prothrombin Time 11.2 sec (9.0-12.0)
[2017-06-06 17:18] LABS: ALT 75 U/L (9-52); AST 60 U/L (14-36); Albumin 4.1 g/dL (3.5-5.0); Alkaline Phosphatase 87 U/L (38-126); Anion Gap 14 mmol/L; Blood Urea Nitrogen 11 mg/dL (7-17); Calcium 9.3 mg/dL (8.4-10.2); Carbon Dioxide 21 mmol/L (22-30); Chloride 107 mmol/L (98-107); Glucose 153 mg/dL (74-99); Potassium 3.3 mmol/L (3.5-5.1); Sodium 142 mmol/L (137-145); Total Bilirubin 0.4 mg/dL (0.2-1.3); Total Protein 7.3 g/dL (6.3-8.2)
--- NOTE | 2017-06-06 17:18 | ED ---
General Adult HPI - General Source: patient, RN notes reviewed, old records reviewed Mode of arrival: wheelchair Limitations: no limitations <Raymond Serrano - Last Filed: 06/06/17 16:49> <Gilberto Pagan - Last Filed: 06/06/17 19:11> - General Chief complaint: Chest Pain Stated complaint: CHest Pain, SOB, has mrsa Time Seen by Provider: 06/06/17 16:40 - History of Present Illness Initial comments: Patient's a 47-year-old female significant past medical history for pulmonary fibrosis, pleurisy, presenting to the emergency room today with a chief complaint of increased pain on the right side. Patient does admit that she had MRSA infection had a PICC line and was on IV antibiotics for a month. She states that she finished his antibiotics 1 week ago. She states over the last few days she's been having increased pain. She states it is consistent with pleurisy type pain that she's had in the past. She says she states she had increased shortness of breath with this. Patient doesn't that she takes Miranda at home for the pain. She states some relief the symptoms. Patient does admit to increased cough congestion last few days. Does use breathing treatments. Is on oxygen 2 L at home. Patient denies any recent fever, chills, abdominal pain, nausea or vomiting, numbness or tingling, dysuria or hematuria, constipation or diarrhea, headaches or visual changes, or any other complaints. (Raymond Serrano) - Related Data Home Medications Medication Instructions Recorded Confirmed Cetirizine HCl [Zyrtec] 10 mg PO DAILY PRN 07/16/14 06/06/17 Ergocalciferol [Vitamin D2 50,000 units PO TH 07/16/14 06/06/17 (DRISDOL)] lamoTRIgine [LaMICtal] 200 mg PO DAILY 03/22/16 06/06/17 Baclofen [Lioresal] 20 mg PO TID PRN 10/18/16 06/06/17 Bumetanide 2 mg PO BID 10/18/16 06/06/17 Butalb/APAP/Caff 50-325-40Mg 1 tab PO Q4H PRN 10/18/16 06/06/17 [Fioricet 50-325-40] Ondansetron HCl [Zofran] 4 mg PO DAILY PRN 10/18/16 06/06/17 Pregabalin [Lyrica] 100 mg PO BID 10/18/16 06/06/17 Ipratropium-Albuterol Nebulize 3 ml INHALATION RT-QID PRN 04/10/17 06/06/17 [Duoneb 0.5 mg-3 mg/3 ml Soln] Mirtazapine [Remeron] 45 mg PO HS 04/10/17 06/06/17 Potassium Chloride [Klor-Con 20 meq PO HS 04/10/17 06/06/17 Sprinkle] Warfarin [Coumadin] 10 mg PO HS 04/24/17 06/06/17 Promethazine/Dextromethorphan 5 ml PO Q6HR PRN 04/26/17 06/06/17 [Promethazine-Dm Syrup] ALPRAZolam [Xanax] 0.5 mg PO BID PRN 06/06/17 06/06/17 Acetaminophen with Codeine 1 tab PO QID PRN 06/06/17 06/06/17 [Tylenol w/codeine #4] Previous Rx's Medication Instructions Recorded Albuterol Inhaler [Ventolin Hfa 2 puff INHALATION RT-Q6H PRN #1 08/20/15 Inhaler] puff FLUoxetine HCL [PROzac] 20 mg PO DAILY #30 capsule 08/20/15 Metoprolol Tartrate [Lopressor] 50 mg PO BID #60 tab 08/20/15 Montelukast [Singulair] 10 mg PO HS #30 tab 08/20/15 HYDROcodone/APAP 7.5-325MG [Miranda 1 tab PO Q6HR PRN #24 tab 04/22/17 7.5-325] Allergies Allergy/AdvReac Type Severity Reaction Status Date / Time ketorolac tromethamine Allergy Severe Anaphylaxis Verified 06/06/17 16:32 [From Toradol] Opioids - Morphine Analogues Allergy Mild Itching Verified 06/06/17 16:32 Iodinated Contrast- Oral and Allergy Unknown Verified 06/06/17 16:32 IV Dye rivaroxaban [From Xarelto] Allergy Rash/Hives Verified 06/06/17 16:32 sumatriptan [From Imitrex] Allergy Anaphylaxis Verified 06/06/17 16:32 sumatriptan succinate Allergy Anaphylaxis Verified 06/06/17 16:32 [From Imitrex] morphine AdvReac Severe Itching Verified 06/06/17 16:32 iodine AdvReac Intermediate Itching Verified 06/06/17 16:32 tramadol AdvReac Anaphylaxis Verified 06/06/17 16:32 vancomycin AdvReac Itching Verified 06/06/17 16:32 Rich wipes AdvReac Severe Rash/Hives Uncoded 04/26/17 16:43 Review of Systems ROS Other: All systems not noted in ROS Statement are negative. <Raymond Serrano - Last Filed: 06/06/17 16:49> ROS Other: All systems not noted in ROS Statement are negative. <Gilberto Pagan - Last Filed: 06/06/17 19:11> ROS Statement: Those systems with pertinent positive or pertinent negative responses have been documented in the HPI. Past Medical History Past Medical History: Blood Disorder, Heart Failure, COPD, Deep Vein Thrombosis (DVT), Hyperlipidemia, Hypertension, Myocardial Infarction (MD), Musculoskeletal Disorder, Pneumonia, Pulmonary Embolus (PE) Additional Past Medical History / Comment(s): PE 2012; Sarcoidosis diagnosed in 2015 following a bronchoscopy and lung biopsy done at [facility] and she was started on predniosone and she took the therapy for almost 1 year, polycythemia, overweight, bilateral PE (2011, 2015), bilateral DVTs, fibromyalgia, bipolar disorder, degenerative disk disorder, coronary artery disease along with previous history of a MD and ventilator dependent respiratory failure with MRSA pneumonia for which the patient was hospitalized [facility] in 2012. Viral meningitis in October 2014. Last Myocardial Infarction Date:: February 15, 2013 History of Any Multi-Drug Resistant Organisms: MRSA Date of last positivie culture/infection: 04/13/17 MDRO Source:: BRONCH Past Surgical History: Section, Cholecystectomy, Heart Catheterization , Hernia Repair, Orthopedic Surgery Additional Past Surgical History / Comment(s): Lt ankle surgery,BRONCH Past Anesthesia/Blood Transfusion Reactions: Motion Sickness, Postoperative Nausea & Vomiting (PONV) Additional Past Anesthesia/Blood Transfusion Reaction / Comment(s): pt stated that last April she coded due to anesthetic Past Psychological History: Anxiety, Bipolar, Depression, Panic Disorder Smoking Status: Current every day smoker Past Alcohol Use History: None Reported Past Drug Use History: None Reported - Past Family History Father Family Medical History: Blood Disorder, Congestive Heart Failure (CHF), CVA/TIA , Deep Vein Thrombosis (DVT), Myocardial Infarction (MD) Additional Family Medical History / Comment(s): polycythemia Mother Family Medical History: Congestive Heart Failure (CHF), Diabetes Mellitus, Deep Vein Thrombosis (DVT), Myocardial Infarction (MD), Musculoskeletal Disorder Additional Family Medical History / Comment(s): DDD Sister(s) Family Medical History: No Reported History Brother(s) Family Medical History: No Reported History Son(s) Family Medical History: No Reported History Daughter(s) Family Medical History: No Reported History <Raymond Serrano - Last Filed: 06/06/17 16:49> General Exam Limitations: no limitations <Raymond Serrano - Last Filed: 06/06/17 16:49> <Gilberto Pagan - Last Filed: 06/06/17 19:11> - General Exam Comments Initial Comments: General: The patient is awake and alert, in no distress, and does not appear acutely ill. Eye: Pupils are equal, round and reactive to light, extra-ocular movements are intact. No nystagmus. There is normal conjunctiva bilaterally. No signs of icterus. Ears, nose, mouth and throat: There are moist mucous membranes and no oral lesions. Neck: The neck is supple, there is no tenderness or JVD. Cardiovascular: There is a regular rate and rhythm. No murmur, rub or gallop is appreciated. Respiratory: Breath sounds are diminished bilaterally with faint expiratory wheeze. respirations are non-labored, breath sounds are equal. No stridor, rales, or rhonchi. Musculoskeletal: Normal ROM, no tenderness. Strength 5/5. Sensation intact. Pulses equal bilaterally 2+. Neurological: A&O x 3. CN II-XII intact, There are no obvious motor or sensory deficits. Coordination appears grossly intact. Speech is normal. Skin: Skin is warm and dry and no rashes or lesions are noted. Psychiatric: Cooperative, appropriate mood & affect, normal judgment. (Raymond Serrano) Course <Raymond Serrano - Last Filed: 06/06/17 16:49> <Gilberto Pagan - Last Filed: 06/06/17 19:11> Vital Signs 0306/06/17 06/06/17 16:19 16:39 17:02 Temperature 98.7 F Pulse Rate 55 L 90 Respiratory 18 24 Rate Blood Pressure 119/66 O2 Sat by Pulse 99 Oximetry 06/06/17 06/06/17 17:29 17:37 Temperature Pulse Rate 98 98 Respiratory Rate Blood Pressure O2 Sat by Pulse Oximetry - Reevaluation(s) Reevaluation #1: 06/06/17 17:04 Patient seen here in emergency room for shortness of breath and right-sided chest pain. Does have ALLERGIES to Toradol and morphine. At this time patient requesting narcotic pain medication of Dilaudid. States her Miranda at home is not helping her. Patient has been sitting up at bedside took her oxygen off upset that her pain medication was not given. Patient was up yelling nursing staff stating that she wanted morphine to be taken off her ALLERGY list so she could receive it. We did discuss with the patient trying to emphasize that we were giving her steroids and breathing treatment for her shortness of breath. She continued to argue with nursing staff stating that she needed pain medication. Refusing to have further treatment and requesting to see attending physician. Case discussed and signed out to attending physician . (Raymond Serrano) Medical Decision Making <Raymond Serrano - Last Filed: 06/06/17 16:49> - Lab Data Result diagrams: 06/06/17 16:45 06/06/17 16:45 <Gilberto Pagan - Last Filed: 06/06/17 19:11> - Medical Decision Making Patient is demanding narcotics. I told her that we had no neurologic she states she can take morphine even though morphine is listed as an ALLERGY. I told her I would speak with her primary doctor and when I left the room according to the nurses she left AMA (Gilberto Pagan) - Lab Data Lab Results 06/06/17 06/06/17 06/06/17 Range/Units 16:45 16:45 16:45 WBC 11.2 H (3.8-10.6) k/uL RBC 4.84 (3.80-5.40) m/uL Hgb 15.7 (11.4-16.0) gm/dL Hct 42.5 (34.0-46.0) % MCV 87.9 (80.0-100.0) fL MCH 32.4 (25.0-35.0) pg MCHC 36.9 (31.0-37.0) g/dL RDW 15.0 (11.5-15.5) % Plt Count 301 (150-450) k/uL Neutrophils % 64 % Lymphocytes % 26 % Monocytes % 6 % Eosinophils % 1 % Basophils % 1 % Neutrophils # 7.2 (1.3-7.7) k/uL Lymphocytes # 2.9 (1.0-4.8) k/uL Monocytes # 0.6 (0-1.0) k/uL Eosinophils # 0.2 (0-0.7) k/uL Basophils # 0.1 (0-0.2) k/uL Hyperchromasia Slight PT (9.0-12.0) sec INR (<1.2) APTT (22.0-30.0) sec Sodium 142 (137-145) mmol/L Potassium 3.3 L (3.5-5.1) mmol/L Chloride 107 (98-107) mmol/L Carbon Dioxide 21 L (22-30) mmol/L Anion Gap 14 mmol/L BUN 11 (7-17) mg/dL Creatinine 0.73 (0.52-1.04) mg/dL Est GFR (CKD-EPI)AfAm >90 (>60 ml/min/1.73 sqM) Est GFR (CKD-EPI)NonAf >90 (>60 ml/min/1.73 sqM) Glucose 153 H (74-99) mg/dL Calcium 9.3 (8.4-10.2) mg/dL Magnesium 1.7 (1.6-2.3) mg/dL Total Bilirubin 0.4 (0.2-1.3) mg/dL AST 60 H (14-36) U/L ALT 75 H (9-52) U/L Alkaline Phosphatase 87 (38-126) U/L Total Creatine Kinase 38 (30-135) U/L CK-MB (CK-2) 0.3 (0.0-2.4) ng/mL CK-MB (CK-2) Rel Index 0.8 Troponin I <0.012 (0.000-0.034) ng/mL Total Protein 7.3 (6.3-8.2) g/dL Albumin 4.1 (3.5-5.0) g/dL 06/06/17 Range/Units 16:45 WBC (3.8-10.6) k/uL RBC (3.80-5.40) m/uL Hgb (11.4-16.0) gm/dL Hct (34.0-46.0) % MCV (80.0-100.0) fL MCH (25.0-35.0) pg MCHC (31.0-37.0) g/dL RDW (11.5-15.5) % Plt Count (150-450) k/uL Neutrophils % % Lymphocytes % % Monocytes % % Eosinophils % % Basophils % % Neutrophils # (1.3-7.7) k/uL Lymphocytes # (1.0-4.8) k/uL Monocytes # (0-1.0) k/uL Eosinophils # (0-0.7) k/uL Basophils # (0-0.2) k/uL Hyperchromasia PT 11.2 (9.0-12.0) sec INR 1.2 H (<1.2) APTT 23.7 (22.0-30.0) sec Sodium (137-145) mmol/L Potassium (3.5-5.1) mmol/L Chloride (98-107) mmol/L Carbon Dioxide (22-30) mmol/L Anion Gap mmol/L BUN (7-17) mg/dL Creatinine (0.52-1.04) mg/dL Est GFR (CKD-EPI)AfAm (>60 ml/min/1.73 sqM) Est GFR (CKD-EPI)NonAf (>60 ml/min/1.73 sqM) Glucose (74-99) mg/dL Calcium (8.4-10.2) mg/dL Magnesium (1.6-2.3) mg/dL Total Bilirubin (0.2-1.3) mg/dL AST (14-36) U/L ALT (9-52) U/L Alkaline Phosphatase (38-126) U/L Total Creatine Kinase (30-135) U/L CK-MB (CK-2) (0.0-2.4) ng/mL CK-MB (CK-2) Rel Index Troponin I (0.000-0.034) ng/mL Total Protein (6.3-8.2) g/dL Albumin (3.5-5.0) g/dL Disposition <Raymond Serrano - Last Filed: 06/06/17 16:49> Time of Disposition: 19:11 <Gilberto Pagan - Last Filed: 06/06/17 19:11> Clinical Impression: Dyspnea Disposition: Left Against Medical Advice Referrals: Liz Koch MD [Primary Care Provider] - 1-2 days
[2017-06-06 17:20] LABS: Creatine Kinase 38 U/L (30-135)
[2017-06-06 17:34] LABS: Creatine Kinase MB 0.3 ng/mL (0.0-2.4); Troponin I <0.012 ng/mL (0.000-0.034)
[2017-06-06 17:35] VITALS: PULSE 98
== END 2017-06-06 17:39 | disposition left against medical advice (07) ==
LOC: EC 16:17
DX: R06.02 Shortness of breath (principal); R06.2 Wheezing; R07.9 Chest pain, unspecified; R05 Cough; R09.89 Other specified symptoms and signs involving the circulatory and respiratory systems; I11.0 Hypertensive heart disease with heart failure; I50.9 Heart failure, unspecified; F31.9 Bipolar disorder, unspecified; F17.200 Nicotine dependence, unspecified, uncomplicated; Z79.01 Long term (current) use of anticoagulants; Z79.899 Other long term (current) drug therapy; Z88.1 Allergy status to other antibiotic agents; Z88.5 Allergy status to narcotic agent; Z88.6 Allergy status to analgesic agent; Z91.041 Radiographic dye allergy status; Z91.048 Other nonmedicinal substance allergy status; Z86.14 Personal history of Methicillin resistant Staphylococcus aureus infection; Z86.718 Personal history of other venous thrombosis and embolism; Z86.711 Personal history of pulmonary embolism; Z95.9 Presence of cardiac and vascular implant and graft, unspecified; Z82.49 Family history of ischemic heart disease and other diseases of the circulatory system; Z53.20 Procedure and treatment not carried out because of patient's decision for unspecified reasons
CPT/HCPCS: 36415; 94640; 80053; 82550; 82553; 83735; 84484; 85025; 85610; 85730; 99285; 96374; 96361; J2930

== ENCOUNTER 2017-06-16 17:37 | Observation (INO) | payer OTHER ==
[2017-06-16] MEDS ORDERED: FUROSEMIDE 10 MG/ML 4 ML VIAL IV STA (18:03)
[2017-06-16] MEDS ORDERED: methylPREDNISolone SOD SUCCI 125 MG/2 ML VIAL IV STA (18:03)
[2017-06-16] MEDS ORDERED: IPRATROPIUM-ALBUTEROL 3 ML NEB INHALATION STA (18:03)
--- NOTE | 2017-06-16 18:10 | ED ---
SOB HPI - General Chief Complaint: Shortness of Breath Stated Complaint: SWELLING, PAIN IN RT LUNG, PLEURESY, MRSA Time Seen by Provider: 06/16/17 17:57 Source: patient, RN notes reviewed, old records reviewed Mode of arrival: wheelchair Limitations: no limitations - History of Present Illness Initial Comments: This is a 47-year-old female history of COPD and CHF who still smokes who complains of 3 days of shortness of breath that is progressively worse in spite of home treatment with cough with dark brown to almost black colored phlegm some chills some fever no overt sweats he also states her legs are getting swollen. She denies any overt chest pain except for pleuritic-type pain when she breathes or coughs no palpitations no other symptoms MD Complaint: shortness of breath, cough - Related Data Home Medications Medication Instructions Recorded Confirmed Cetirizine HCl [Zyrtec] 10 mg PO DAILY PRN 07/16/14 06/16/17 Ergocalciferol [Vitamin D2 50,000 units PO TH 07/16/14 06/16/17 (DRISDOL)] lamoTRIgine [LaMICtal] 200 mg PO DAILY 03/22/16 06/16/17 Baclofen [Lioresal] 20 mg PO TID PRN 10/18/16 06/16/17 Bumetanide 2 mg PO BID 10/18/16 06/16/17 Butalb/APAP/Caff 50-325-40Mg 1 tab PO Q4H PRN 10/18/16 06/16/17 [Fioricet 50-325-40] Ondansetron HCl [Zofran] 4 mg PO DAILY PRN 10/18/16 06/16/17 Pregabalin [Lyrica] 100 mg PO BID 10/18/16 06/16/17 Ipratropium-Albuterol Nebulize 3 ml INHALATION RT-QID PRN 04/10/17 06/16/17 [Duoneb 0.5 mg-3 mg/3 ml Soln] Mirtazapine [Remeron] 45 mg PO HS 04/10/17 06/16/17 Potassium Chloride [Klor-Con 20 meq PO HS 04/10/17 06/16/17 Sprinkle] Warfarin [Coumadin] 10 mg PO HS 04/24/17 06/16/17 Promethazine/Dextromethorphan 5 ml PO Q6HR PRN 04/26/17 06/16/17 [Promethazine-Dm Syrup] ALPRAZolam [Xanax] 0.5 mg PO BID PRN 06/06/17 06/16/17 Acetaminophen with Codeine 1 tab PO QID PRN 06/06/17 06/16/17 [Tylenol w/codeine #4] Warfarin [Coumadin] 5 mg PO HS 06/16/17 06/16/17 Previous Rx's Medication Instructions Recorded Albuterol Inhaler [Ventolin Hfa 2 puff INHALATION RT-Q6H PRN #1 08/20/15 Inhaler] puff FLUoxetine HCL [PROzac] 20 mg PO DAILY #30 capsule 08/20/15 Metoprolol Tartrate [Lopressor] 50 mg PO BID #60 tab 08/20/15 Montelukast [Singulair] 10 mg PO HS #30 tab 08/20/15 HYDROcodone/APAP 7.5-325MG [Adams 1 tab PO Q6HR PRN #24 tab 04/22/17 7.5-325] Allergies Allergy/AdvReac Type Severity Reaction Status Date / Time ketorolac tromethamine Allergy Severe Anaphylaxis Verified 06/16/17 18:19 [From Toradol] Opioids - Morphine Analogues Allergy Mild Itching Verified 06/16/17 18:19 Iodinated Contrast- Oral and Allergy Unknown Verified 06/16/17 18:19 IV Dye rivaroxaban [From Xarelto] Allergy Rash/Hives Verified 06/16/17 18:19 sumatriptan [From Imitrex] Allergy Anaphylaxis Verified 06/16/17 18:19 sumatriptan succinate Allergy Anaphylaxis Verified 06/16/17 18:19 [From Imitrex] morphine AdvReac Severe Itching Verified 06/16/17 18:19 iodine AdvReac Intermediate Itching Verified 06/16/17 18:19 tramadol AdvReac Anaphylaxis Verified 06/16/17 18:19 vancomycin AdvReac Itching Verified 06/16/17 18:19 Rich wipes AdvReac Severe Rash/Hives Uncoded 06/16/17 17:44 Review of Systems ROS Statement: Those systems with pertinent positive or pertinent negative responses have been documented in the HPI. ROS Other: All systems not noted in ROS Statement are negative. Past Medical History Past Medical History: Blood Disorder, Heart Failure, COPD, Deep Vein Thrombosis (DVT), Hyperlipidemia, Hypertension, Myocardial Infarction (IA), Musculoskeletal Disorder, Pneumonia, Pulmonary Embolus (PE) Additional Past Medical History / Comment(s): PE 2012; Sarcoidosis diagnosed in 2015 following a bronchoscopy and lung biopsy done at [facility] and she was started on predniosone and she took the therapy for almost 1 year, polycythemia, overweight, bilateral PE (2011, 2015), bilateral DVTs, fibromyalgia, bipolar disorder, degenerative disk disorder, coronary artery disease along with previous history of a IA and ventilator dependent respiratory failure with MRSA pneumonia for which the patient was hospitalized [facility] in 2012. Viral meningitis in October 2014. Last Myocardial Infarction Date:: February 15, 2013 History of Any Multi-Drug Resistant Organisms: MRSA Date of last positivie culture/infection: 04/13/17 MDRO Source:: BRONCH Past Surgical History: Section, Cholecystectomy, Heart Catheterization , Hernia Repair, Orthopedic Surgery Additional Past Surgical History / Comment(s): Lt ankle surgery,BRONCH Past Anesthesia/Blood Transfusion Reactions: Motion Sickness, Postoperative Nausea & Vomiting (PONV) Additional Past Anesthesia/Blood Transfusion Reaction / Comment(s): pt stated that last April she coded due to anesthetic Past Psychological History: Anxiety, Bipolar, Depression, Panic Disorder Smoking Status: Current every day smoker Past Alcohol Use History: None Reported Past Drug Use History: None Reported - Past Family History Father Family Medical History: Blood Disorder, Congestive Heart Failure (CHF), CVA/TIA , Deep Vein Thrombosis (DVT), Myocardial Infarction (IA) Additional Family Medical History / Comment(s): polycythemia Mother Family Medical History: Congestive Heart Failure (CHF), Diabetes Mellitus, Deep Vein Thrombosis (DVT), Myocardial Infarction (IA), Musculoskeletal Disorder Additional Family Medical History / Comment(s): DDD Sister(s) Family Medical History: No Reported History Brother(s) Family Medical History: No Reported History Son(s) Family Medical History: No Reported History Daughter(s) Family Medical History: No Reported History General Exam - General Exam Comments Initial Comments: This a well-developed well-nourished awake alert oriented 3 female Limitations: no limitations General appearance: alert, anxious, in distress Head exam: Present: atraumatic, normocephalic, normal inspection Eye exam: Present: normal appearance, PERRL, EOMI. Absent: scleral icterus, conjunctival injection, periorbital swelling ENT exam: Present: normal exam, mucous membranes moist Neck exam: Present: normal inspection. Absent: tenderness, meningismus, lymphadenopathy Respiratory exam: Present: wheezes, decreased breath sounds. Absent: respiratory distress, rales, rhonchi, stridor Cardiovascular Exam: Present: regular rate, normal rhythm, normal heart sounds. Absent: systolic murmur, diastolic murmur, rubs, gallop, clicks GI/Abdominal exam: Present: soft, normal bowel sounds. Absent: distended, tenderness, guarding, rebound, rigid Extremities exam: Present: full ROM, normal capillary refill, pedal edema. Absent: tenderness, joint swelling, calf tenderness Back exam: Present: normal inspection Neurological exam: Present: alert, oriented X3, CN II-XII intact Psychiatric exam: Present: normal affect, normal mood Skin exam: Present: warm, dry, intact, normal color. Absent: rash Course Vital Signs 06/16/17 06/16/17 06/16/17 17:41 18:18 18:25 Temperature 97.7 F Pulse Rate 93 93 93 Respiratory 22 18 18 Rate Blood Pressure 104/65 O2 Sat by Pulse 97 Oximetry 06/16/17 06/16/17 18:44 19:14 Temperature Pulse Rate 89 89 Respiratory 20 22 Rate Blood Pressure 136/58 118/60 O2 Sat by Pulse 97 97 Oximetry - Reevaluation(s) Reevaluation #1: 06/16/17 19:32 Reevaluation patient reveals minimal improvement thus artery spots of therapy. He still dyspneic markedly diminished breath sounds with scattered expiratory history wheezes. Medical Decision Making - Medical Decision Making Patient is demonstrating minimal improvement thus far. She will be admitted for inpatient treatment. COPD exacerbation with outpatient treatment failure - Lab Data Result diagrams: 06/16/17 18:24 06/16/17 18:24 Lab Results 06/16/17 06/16/17 06/16/17 Range/Units 18:24 18:24 18:24 WBC 8.4 (3.8-10.6) k/uL RBC 4.50 (3.80-5.40) m/uL Hgb 14.2 (11.4-16.0) gm/dL Hct 40.7 (34.0-46.0) % MCV 90.5 (80.0-100.0) fL MCH 31.5 (25.0-35.0) pg MCHC 34.8 (31.0-37.0) g/dL RDW 15.0 (11.5-15.5) % Plt Count 239 (150-450) k/uL Neutrophils % 71 % Lymphocytes % 19 % Monocytes % 7 % Eosinophils % 1 % Basophils % 1 % Neutrophils # 6.0 (1.3-7.7) k/uL Lymphocytes # 1.6 (1.0-4.8) k/uL Monocytes # 0.6 (0-1.0) k/uL Eosinophils # 0.1 (0-0.7) k/uL Basophils # 0.1 (0-0.2) k/uL Sodium 139 (137-145) mmol/L Potassium 3.1 L (3.5-5.1) mmol/L Chloride 106 (98-107) mmol/L Carbon Dioxide 23 (22-30) mmol/L Anion Gap 10 mmol/L BUN 8 (7-17) mg/dL Creatinine 0.52 (0.52-1.04) mg/dL Est GFR (CKD-EPI)AfAm >90 (>60 ml/min/1.73 sqM) Est GFR (CKD-EPI)NonAf >90 (>60 ml/min/1.73 sqM) Glucose 156 H (74-99) mg/dL Calcium 8.2 L (8.4-10.2) mg/dL Magnesium 1.9 (1.6-2.3) mg/dL Total Bilirubin 0.4 (0.2-1.3) mg/dL AST 135 H (14-36) U/L ALT 161 H (9-52) U/L Alkaline Phosphatase 107 (38-126) U/L Total Creatine Kinase 120 (30-135) U/L CK-MB (CK-2) 0.5 (0.0-2.4) ng/mL CK-MB (CK-2) Rel Index 0.4 Troponin I <0.012 (0.000-0.034) ng/mL NT-Pro-B Natriuret Pep pg/mL Total Protein 6.7 (6.3-8.2) g/dL Albumin 3.5 (3.5-5.0) g/dL 06/16/17 Range/Units 18:24 WBC (3.8-10.6) k/uL RBC (3.80-5.40) m/uL Hgb (11.4-16.0) gm/dL Hct (34.0-46.0) % MCV (80.0-100.0) fL MCH (25.0-35.0) pg MCHC (31.0-37.0) g/dL RDW (11.5-15.5) % Plt Count (150-450) k/uL Neutrophils % % Lymphocytes % % Monocytes % % Eosinophils % % Basophils % % Neutrophils # (1.3-7.7) k/uL Lymphocytes # (1.0-4.8) k/uL Monocytes # (0-1.0) k/uL Eosinophils # (0-0.7) k/uL Basophils # (0-0.2) k/uL Sodium (137-145) mmol/L Potassium (3.5-5.1) mmol/L Chloride (98-107) mmol/L Carbon Dioxide (22-30) mmol/L Anion Gap mmol/L BUN (7-17) mg/dL Creatinine (0.52-1.04) mg/dL Est GFR (CKD-EPI)AfAm (>60 ml/min/1.73 sqM) Est GFR (CKD-EPI)NonAf (>60 ml/min/1.73 sqM) Glucose (74-99) mg/dL Calcium (8.4-10.2) mg/dL Magnesium (1.6-2.3) mg/dL Total Bilirubin (0.2-1.3) mg/dL AST (14-36) U/L ALT (9-52) U/L Alkaline Phosphatase (38-126) U/L Total Creatine Kinase (30-135) U/L CK-MB (CK-2) (0.0-2.4) ng/mL CK-MB (CK-2) Rel Index Troponin I (0.000-0.034) ng/mL NT-Pro-B Natriuret Pep 134 pg/mL Total Protein (6.3-8.2) g/dL Albumin (3.5-5.0) g/dL - EKG Data -: EKG Interpreted by Me EKG shows normal: sinus rhythm (Normal sinus rhythm rate 91 appear interval 158 QRS duration 60 QT since QTC of 372/[address]-T wave changes this is a normal-appearing EKG) - Radiology Data Radiology results: report reviewed (Review the imaging shows no acute findings.) , image reviewed Critical Care Time Critical Care Time: Yes Critical Care Time: 31 minutes of critical care time which includes initial presentation with history physical labs x-rays reevaluation patient responsive therapy discussion with the main physician admission orders documentation the above review of old charting available. Disposition Clinical Impression: Acute exacerbation of chronic obstructive airways disease, Adult respiratory distress syndrome, Failure of outpatient treatment Disposition: ADMITTED IP TO THIS HOSP Condition: Stable Referrals: Liz Koch MD [Primary Care Provider] - 1-2 days
[2017-06-16] MEDS ORDERED: fentaNYL (PF) 50 MCG/ML 2 ML AMP IV STA (18:37)
[2017-06-16 18:39] LABS: Basophils # (A) 0.1 k/uL (0-0.2); Basophils % (A) 1 %; Eosinophils # (A) 0.1 k/uL (0-0.7); Eosinophils % (A) 1 %; HCT 40.7 % (34.0-46.0); HGB 14.2 gm/dL (11.4-16.0); Lymphocytes # (A) 1.6 k/uL (1.0-4.8); Lymphocytes % (A) 19 %; MCH 31.5 pg (25.0-35.0); MCHC 34.8 g/dL (31.0-37.0); MCV 90.5 fL (80.0-100.0); Mean Platelet Volume 6.9; Monocytes # (A) 0.6 k/uL (0-1.0); Monocytes % (A) 7 %; Neutrophils % (A) 71 %; Platelet Count 239 k/uL (150-450); WBC 8.4 k/uL (3.8-10.6)
[2017-06-16 18:47] LABS: ALT 161 U/L (9-52); AST 135 U/L (14-36); Albumin 3.5 g/dL (3.5-5.0); Alkaline Phosphatase 107 U/L (38-126); Anion Gap 10 mmol/L; Blood Urea Nitrogen 8 mg/dL (7-17); Calcium 8.2 mg/dL (8.4-10.2); Carbon Dioxide 23 mmol/L (22-30); Chloride 106 mmol/L (98-107); Glucose 156 mg/dL (74-99); Magnesium 1.9 mg/dL (1.6-2.3); Potassium 3.1 mmol/L (3.5-5.1); Sodium 139 mmol/L (137-145); Total Bilirubin 0.4 mg/dL (0.2-1.3); Total Protein 6.7 g/dL (6.3-8.2)
[2017-06-16 18:54] LABS: Creatine Kinase 120 U/L (30-135)
--- NOTE | 2017-06-16 19:05 | XR ---
EXAMINATION TYPE: XR chest 2V DATE OF EXAM: 06/16/2017 COMPARISON: May 08, 2017 HISTORY: Chest pain TECHNIQUE: Frontal and lateral views of the chest are obtained. FINDINGS: There is no focal air space opacity, pleural effusion, or pneumothorax seen. The cardiac silhouette size is within normal limits. The osseous structures are intact. IMPRESSION: No acute cardiopulmonary process.
[2017-06-16 19:08] LABS: Creatine Kinase MB 0.5 ng/mL (0.0-2.4); Troponin I <0.012 ng/mL (0.000-0.034)
[2017-06-16] MEDS ORDERED: MAGNESIUM SULFATE-D5W PMX 1 GM in DEXTROSE/WATER 1 100ML.BAG IVPB ONE (19:55)
[2017-06-16] MEDS ORDERED: PROMETHAZINE PO PRN (19:56)
[2017-06-16] MEDS ORDERED: DEXTROMETHORPHAN PO PRN (19:56)
[2017-06-16] MEDS ORDERED: POTASSIUM CHLORIDE 20 MEQ in SODIUM CHLORIDE 0.9% 100 ML IVPB STA ×4 (19:56)
[2017-06-16] MEDS ORDERED: BUTALB/APAP/CAFF 50-325-40MG TAB PO PRN (19:56)
[2017-06-16] MEDS ORDERED: BACLOFEN 10 MG TAB PO PRN (19:56)
[2017-06-16] MEDS ORDERED: ONDANSETRON 4 MG TAB PO PRN (19:56)
[2017-06-16] MEDS ORDERED: ALPRAZolam 0.5 MG TAB PO PRN (19:56)
[2017-06-16] MEDS ORDERED: Acetaminophen-Codeine 300-30mg TAB PO PRN (19:56)
[2017-06-16] MEDS ORDERED: LORATADINE 10 MG TAB PO PRN (19:56)
--- NOTE | 2017-06-16 19:59 | ED ---
Medical Decision Making - Lab Data Result diagrams: 06/16/17 18:24 18 18:24 Lab Results 06/16/17 06/16/17 06/16/17 Range/Units 18:24 18:24 18:24 WBC 8.4 (3.8-10.6) k/uL RBC 4.50 (3.80-5.40) m/uL Hgb 14.2 (11.4-16.0) gm/dL Hct 40.7 (34.0-46.0) % MCV 90.5 (80.0-100.0) fL MCH 31.5 (25.0-35.0) pg MCHC 34.8 (31.0-37.0) g/dL RDW 15.0 (11.5-15.5) % Plt Count 239 (150-450) k/uL Neutrophils % 71 % Lymphocytes % 19 % Monocytes % 7 % Eosinophils % 1 % Basophils % 1 % Neutrophils # 6.0 (1.3-7.7) k/uL Lymphocytes # 1.6 (1.0-4.8) k/uL Monocytes # 0.6 (0-1.0) k/uL Eosinophils # 0.1 (0-0.7) k/uL Basophils # 0.1 (0-0.2) k/uL Sodium 139 (137-145) mmol/L Potassium 3.1 L (3.5-5.1) mmol/L Chloride 106 (98-107) mmol/L Carbon Dioxide 23 (22-30) mmol/L Anion Gap 10 mmol/L BUN 8 (7-17) mg/dL Creatinine 0.52 (0.52-1.04) mg/dL Est GFR (CKD-EPI)AfAm >90 (>60 ml/min/1.73 sqM) Est GFR (CKD-EPI)NonAf >90 (>60 ml/min/1.73 sqM) Glucose 156 H (74-99) mg/dL Calcium 8.2 L (8.4-10.2) mg/dL Magnesium 1.9 (1.6-2.3) mg/dL Total Bilirubin 0.4 (0.2-1.3) mg/dL AST 135 H (14-36) U/L ALT 161 H (9-52) U/L Alkaline Phosphatase 107 (38-126) U/L Total Creatine Kinase 120 (30-135) U/L CK-MB (CK-2) 0.5 (0.0-2.4) ng/mL CK-MB (CK-2) Rel Index 0.4 Troponin I <0.012 (0.000-0.034) ng/mL NT-Pro-B Natriuret Pep pg/mL Total Protein 6.7 (6.3-8.2) g/dL Albumin 3.5 (3.5-5.0) g/dL 06/16/17 Range/Units 18:24 WBC (3.8-10.6) k/uL RBC (3.80-5.40) m/uL Hgb (11.4-16.0) gm/dL Hct (34.0-46.0) % MCV (80.0-100.0) fL MCH (25.0-35.0) pg MCHC (31.0-37.0) g/dL RDW (11.5-15.5) % Plt Count (150-450) k/uL Neutrophils % % Lymphocytes % % Monocytes % % Eosinophils % % Basophils % % Neutrophils # (1.3-7.7) k/uL Lymphocytes # (1.0-4.8) k/uL Monocytes # (0-1.0) k/uL Eosinophils # (0-0.7) k/uL Basophils # (0-0.2) k/uL Sodium (137-145) mmol/L Potassium (3.5-5.1) mmol/L Chloride (98-107) mmol/L Carbon Dioxide (22-30) mmol/L Anion Gap mmol/L BUN (7-17) mg/dL Creatinine (0.52-1.04) mg/dL Est GFR (CKD-EPI)AfAm (>60 ml/min/1.73 sqM) Est GFR (CKD-EPI)NonAf (>60 ml/min/1.73 sqM) Glucose (74-99) mg/dL Calcium (8.4-10.2) mg/dL Magnesium (1.6-2.3) mg/dL Total Bilirubin (0.2-1.3) mg/dL AST (14-36) U/L ALT (9-52) U/L Alkaline Phosphatase (38-126) U/L Total Creatine Kinase (30-135) U/L CK-MB (CK-2) (0.0-2.4) ng/mL CK-MB (CK-2) Rel Index Troponin I (0.000-0.034) ng/mL NT-Pro-B Natriuret Pep 134 pg/mL Total Protein (6.3-8.2) g/dL Albumin (3.5-5.0) g/dL Disposition Clinical Impression: Acute exacerbation of chronic obstructive airways disease, Adult respiratory distress syndrome, Failure of outpatient treatment, Hypokalemia Disposition: ADMITTED IP TO THIS HOSP Condition: Stable Referrals: Liz Koch MD [Primary Care Provider] - 1-2 days
[2017-06-16] MEDS ORDERED: SODIUM CHLORIDE 0.9% 1,000 ML IV SCH (20:00)
[2017-06-16] MEDS ORDERED: IPRATROPIUM-ALBUTEROL 3 ML NEB INHALATION SCH (20:00)
[2017-06-16 20:08] LABS: INR 1.6 (<1.2); Partial Thromboplastin Time 26.8 sec (22.0-30.0)
[2017-06-16] MEDS ORDERED: diphenhydrAMINE 50 MG/ML 1 ML VIAL IVP STA (20:21)
[2017-06-16] MEDS ORDERED: MORPHINE SULFATE 4 MG/ML SYRINGE IVP STA (20:21)
[2017-06-16] MEDS ORDERED: IPRATROPIUM-ALBUTEROL 3 ML NEB INHALATION PRN (20:30)
[2017-06-16] MEDS ORDERED: MONTELUKAST 10 MG TAB PO SCH (21:00)
[2017-06-16] MEDS ORDERED: BUMETANIDE 1 MG TAB PO SCH (21:00)
[2017-06-16] MEDS ORDERED: WARFARIN 5 MG TAB PO SCH (21:00)
[2017-06-16] MEDS ORDERED: PREGABALIN 100 MG CAP PO SCH (21:00)
[2017-06-16] MEDS ORDERED: WARFARIN 10 MG TAB PO SCH (21:00)
[2017-06-16] MEDS ORDERED: POTASSIUM BICARBONATE/CIT AC 20 MEQ TABLET.EFF PO SCH (21:00)
[2017-06-16] MEDS ORDERED: METOPROLOL TARTRATE 50 MG TAB PO SCH (21:00)
[2017-06-16] MEDS ORDERED: MIRTAZAPINE 45 MG TABLET PO SCH (21:00)
[2017-06-16 21:25] VITALS: RESP 20
[2017-06-16 22:03] VITALS: BP 110/78; PULSE 90; TEMP 98.2
[2017-06-16] MEDS ORDERED: traMADol 50 MG TAB PO PRN (23:11)
[2017-06-16] MEDS ORDERED: HYDROcodone/APAP 7.5-325MG 1 EACH TAB PO PRN (23:11)
[2017-06-16] MEDS ORDERED: Potassium Replacement Protocol 1 EACH MISC MISCELLANE PRN (23:15)
[2017-06-16] MEDS: POTASSIUM CHLORIDE ER 20 MEQ TAB.ER PO SCH (23:50)
[2017-06-17] MEDS ORDERED: methylPREDNISolone SOD SUCCI 125 MG/2 ML VIAL IV SCH
[2017-06-17] MEDS ORDERED: diphenhydrAMINE 50 MG/ML 1 ML VIAL IVP STA (00:40)
[2017-06-17] MEDS ORDERED: MORPHINE SULFATE/PF 10MG/10ML VL IVP STA (00:40)
[2017-06-17] MEDS: POTASSIUM CHLORIDE ER 20 MEQ TAB.ER PO SCH (01:14)
[2017-06-17] MEDS ORDERED: IPRATROPIUM-ALBUTEROL 3 ML NEB INHALATION SCH (08:00)
[2017-06-17] MEDS ORDERED: lamoTRIgine 100 MG TAB PO SCH (09:00)
[2017-06-17] MEDS ORDERED: FLUoxetine HCL 20 MG CAP PO SCH (09:00)
[2017-06-17] MEDS ORDERED: NICOTINE 21MG/24HR PATCH TRANSDERM SCH (09:00)
--- NOTE | 2017-06-17 21:36 | HP ---
HISTORY AND PHYSICAL This is a combination history and physical and discharge summary. FINAL DIAGNOSIS: Chronic obstructive pulmonary disease, acute exacerbation, failure of outpatient treatment. HISTORY OF PRESENT ILLNESS: This 46-year-old woman with past medical history was admitted with COPD acute exacerbation, failure of outpatient treatment, however the patient left against medical advice given in the ER. Please refer to the ER notes and staff notes for information. Prognosis guarded. MMODL / IJN: [id number] / MARY BETH
[2017-06-21] MEDS ORDERED: ERGOCALCIFEROL 50,000 UNIT CAP PO SCH (09:00)
== END 2017-06-17 04:53 | disposition left against medical advice (07) ==
LOC: EC 17:37 → INTOOBSV 19:58 → 5MS5E 19:58
PROVIDERS: ADMIT Hospitalist; ATTEND Hospitalist
DX: J44.1 Chronic obstructive pulmonary disease with (acute) exacerbation (principal); J80 Acute respiratory distress syndrome; E87.6 Hypokalemia; I11.0 Hypertensive heart disease with heart failure; I50.9 Heart failure, unspecified; D86.9 Sarcoidosis, unspecified; E78.5 Hyperlipidemia, unspecified; M79.7 Fibromyalgia; I25.10 Atherosclerotic heart disease of native coronary artery without angina pectoris; F31.9 Bipolar disorder, unspecified; E66.3 Overweight; Z68.41 Body mass index [BMI] 40.0-44.9, adult; D75.1 Secondary polycythemia; F41.0 Panic disorder [episodic paroxysmal anxiety]; F41.9 Anxiety disorder, unspecified; F17.200 Nicotine dependence, unspecified, uncomplicated; Z86.14 Personal history of Methicillin resistant Staphylococcus aureus infection; Z86.711 Personal history of pulmonary embolism; I25.2 Old myocardial infarction; Z87.01 Personal history of pneumonia (recurrent); Z86.718 Personal history of other venous thrombosis and embolism; Z86.61 Personal history of infections of the central nervous system; Z79.01 Long term (current) use of anticoagulants; Z79.899 Other long term (current) drug therapy; Z88.1 Allergy status to other antibiotic agents; Z91.041 Radiographic dye allergy status; Z88.5 Allergy status to narcotic agent; Z88.8 Allergy status to other drugs, medicaments and biological substances; Z91.048 Other nonmedicinal substance allergy status; Z82.3 Family history of stroke; Z83.3 Family history of diabetes mellitus; Z83.2 Family history of diseases of the blood and blood-forming organs and certain disorders involving the immune mechanism; Z82.69 Family history of other diseases of the musculoskeletal system and connective tissue; Z82.49 Family history of ischemic heart disease and other diseases of the circulatory system
CPT/HCPCS: 99291; 96365 ×2; 96375 ×6; 96376 ×2; 96366; 36415; 94640; 93005; 83880; 80053; 82550; 82553; 83735; 84484; 85025; 85610; 85730; 71046; G0378 ×2; J2270 ×2; J1200 ×2; J1940; J2930; J3010; J3475

== ENCOUNTER 2017-07-31 02:19 | Emergency (ER) | payer OTHER ==
[2017-07-31 02:26] VITALS: TEMP 98.5
[2017-07-31] MEDS ORDERED: methylPREDNISolone SOD SUCCI 125 MG/2 ML VIAL IV STA (02:56)
[2017-07-31] MEDS ORDERED: IPRATROPIUM-ALBUTEROL 3 ML NEB INHALATION STA (02:56)
--- NOTE | 2017-07-31 02:59 | XR ---
EXAMINATION TYPE: XR chest 2V DATE OF EXAM: 07/31/2017 COMPARISON: 06/16/2017 HISTORY: Difficulty breathing TECHNIQUE: Frontal and lateral views of the chest are obtained. FINDINGS: Heart and mediastinum are normal. Lungs are clear of consolidation. There is very slight p leural reaction at the lateral left lung base. There is no pleural effusion. Bony thorax is intact. IMPRESSION: Mild pleural diaphragmatic scarring at the lateral left lung base is unchanged. No activ e cardiopulmonary disease. Normal heart.
[2017-07-31] MEDS ORDERED: MORPHINE SULFATE 4 MG/0.8 ML SYRINGE (INJ) IVP STA ×2 (03:16→04:55)
[2017-07-31 03:22] LABS: Basophils # (A) 0.1 k/uL (0-0.2); Basophils % (A) 1 %; Eosinophils # (A) 0.2 k/uL (0-0.7); Eosinophils % (A) 3 %; HGB 14.6 gm/dL (11.4-16.0); Lymphocytes # (A) 3.7 k/uL (1.0-4.8); Lymphocytes % (A) 46 %; MCH 31.3 pg (25.0-35.0); MCHC 34.7 g/dL (31.0-37.0); MCV 90.3 fL (80.0-100.0); Mean Platelet Volume 7.3; Monocytes # (A) 0.5 k/uL (0-1.0); Monocytes % (A) 6 %; Neutrophils # (A) 3.2 k/uL (1.3-7.7); Neutrophils % (A) 41 %; Platelet Count 259 k/uL (150-450); RBC 4.65 m/uL (3.80-5.40); RDW 13.9 % (11.5-15.5)
[2017-07-31] MEDS ORDERED: MORPHINE SULFATE 4 MG/ML SYRINGE IVP STA ×2 (03:22→04:59)
--- NOTE | 2017-07-31 03:27 | ED ---
SOB HPI - General Chief Complaint: Shortness of Breath Stated Complaint: OLY Time Seen by Provider: 07/31/17 02:47 Source: patient Mode of arrival: wheelchair Limitations: physical limitation - History of Present Illness Initial Comments: 47-year-old female patient with a past medical history significant for COPD and pulmonary fibrosis presents to the emergency department today for evaluation of shortness of breath. Patient states that symptoms started a worsening a couple of days ago. States that she has had an increase in coughing without sputum production. She denies hemoptysis. She denies any leg swelling. Patient states that throughout the day today she has been very dizzy. States that her chest feels tight in her ribs are aching. She denies any nausea, vomiting, sweats, abdominal pain, fever, or chills. Patient denies any recent rash, diarrhea, constipation, back pain, numbness, tingling, weakness, hematuria, dysuria, urinary urgency, urinary frequency, headache, visual changes, or any other complaints. - Related Data Home Medications Medication Instructions Recorded Confirmed Cetirizine HCl [Zyrtec] 10 mg PO DAILY PRN 07/16/14 06/16/17 Ergocalciferol [Vitamin D2 50,000 units PO TH 07/16/14 06/16/17 (DRISDOL)] lamoTRIgine [LaMICtal] 200 mg PO DAILY 03/22/16 06/16/17 Baclofen [Lioresal] 20 mg PO TID PRN 10/18/16 06/16/17 Bumetanide 2 mg PO BID 10/18/16 06/16/17 Butalb/APAP/Caff 50-325-40Mg 1 tab PO Q4H PRN 10/18/16 06/16/17 [Fioricet 50-325-40] Ondansetron HCl [Zofran] 4 mg PO DAILY PRN 10/18/16 06/16/17 Pregabalin [Lyrica] 100 mg PO BID 10/18/16 06/16/17 Ipratropium-Albuterol Nebulize 3 ml INHALATION RT-QID PRN 04/10/17 06/16/17 [Duoneb 0.5 mg-3 mg/3 ml Soln] Mirtazapine [Remeron] 45 mg PO HS 04/10/17 06/16/17 Potassium Chloride [Klor-Con 20 meq PO HS 04/10/17 06/16/17 Sprinkle] Warfarin [Coumadin] 10 mg PO HS 04/24/17 06/16/17 Promethazine/Dextromethorphan 5 ml PO Q6HR PRN 04/26/17 06/16/17 [Promethazine-Dm Syrup] ALPRAZolam [Xanax] 0.5 mg PO BID PRN 06/06/17 06/16/17 Acetaminophen with Codeine 1 tab PO QID PRN 06/06/17 06/16/17 [Tylenol w/codeine #4] Warfarin [Coumadin] 5 mg PO HS 06/16/17 06/16/17 Previous Rx's Medication Instructions Recorded Albuterol Inhaler [Ventolin Hfa 2 puff INHALATION RT-Q6H PRN #1 08/20/15 Inhaler] puff FLUoxetine HCL [PROzac] 20 mg PO DAILY #30 capsule 08/20/15 Metoprolol Tartrate [Lopressor] 50 mg PO BID #60 tab 08/20/15 Montelukast [Singulair] 10 mg PO HS #30 tab 08/20/15 HYDROcodone/APAP 7.5-325MG [[place] 1 tab PO Q6HR PRN #24 tab 04/22/17 7.5-325] Allergies Allergy/AdvReac Type Severity Reaction Status Date / Time ketorolac tromethamine Allergy Severe Anaphylaxis Verified 07/31/17 02:26 [From Toradol] Opioids - Morphine Analogues Allergy Mild Itching Verified 07/31/17 02:26 Iodinated Contrast- Oral and Allergy Unknown Verified 07/31/17 02:26 IV Dye rivaroxaban [From Xarelto] Allergy Rash/Hives Verified 07/31/17 02:26 sumatriptan [From Imitrex] Allergy Anaphylaxis Verified 07/31/17 02:26 sumatriptan succinate Allergy Anaphylaxis Verified 07/31/17 02:26 [From Imitrex] morphine AdvReac Severe Itching Verified 07/31/17 02:26 iodine AdvReac Intermediate Itching Verified 07/31/17 02:26 tramadol AdvReac Anaphylaxis Verified 07/31/17 02:26 vancomycin AdvReac Itching Verified 07/31/17 02:26 Rich wipes AdvReac Severe Rash/Hives Uncoded 07/31/17 02:26 Review of Systems ROS Statement: Those systems with pertinent positive or pertinent negative responses have been documented in the HPI. ROS Other: All systems not noted in ROS Statement are negative. Past Medical History Past Medical History: Blood Disorder, Heart Failure, COPD, Deep Vein Thrombosis (DVT), Hyperlipidemia, Hypertension, Myocardial Infarction ([place]), Musculoskeletal Disorder, Pneumonia, Pulmonary Embolus (PE) Additional Past Medical History / Comment(s): PE 2012; Sarcoidosis diagnosed in 2015 following a bronchoscopy and lung biopsy done at [facility] and she was started on predniosone and she took the therapy for almost 1 year, polycythemia, overweight, bilateral PE (2011, 2015), bilateral DVTs, fibromyalgia, bipolar disorder, degenerative disk disorder, coronary artery disease along with previous history of a [place] and ventilator dependent respiratory failure with MRSA pneumonia for which the patient was hospitalized [facility] in 2012. Viral meningitis in October 2014. Last Myocardial Infarction Date:: February 15, 2013 History of Any Multi-Drug Resistant Organisms: MRSA Date of last positivie culture/infection: 04/13/17 MDRO Source:: BRONCH Past Surgical History: Section, Cholecystectomy, Heart Catheterization , Hernia Repair, Orthopedic Surgery Additional Past Surgical History / Comment(s): Lt ankle surgery,BRONCH Past Anesthesia/Blood Transfusion Reactions: Motion Sickness, Postoperative Nausea & Vomiting (PONV) Additional Past Anesthesia/Blood Transfusion Reaction / Comment(s): pt stated that last April she coded due to anesthetic Past Psychological History: Anxiety, Bipolar, Depression, Panic Disorder Smoking Status: Current every day smoker Past Alcohol Use History: None Reported Past Drug Use History: None Reported - Past Family History Father Family Medical History: Blood Disorder, Congestive Heart Failure (CHF), CVA/TIA , Deep Vein Thrombosis (DVT), Myocardial Infarction ([place]) Additional Family Medical History / Comment(s): polycythemia Mother Family Medical History: Congestive Heart Failure (CHF), Diabetes Mellitus, Deep Vein Thrombosis (DVT), Myocardial Infarction ([place]), Musculoskeletal Disorder Additional Family Medical History / Comment(s): DDD Sister(s) Family Medical History: No Reported History Brother(s) Family Medical History: No Reported History Son(s) Family Medical History: No Reported History Daughter(s) Family Medical History: No Reported History General Exam Limitations: physical limitation General appearance: alert, in no apparent distress, other (This is a well- developed, well-nourished adult female patient in no acute distress. Vital signs upon presentation are temperature 98.5F, pulse 68, respirations 20, blood pressure 103/56, pulse ox 99% on room air.) Eye exam: Present: normal appearance, PERRL, EOMI. Absent: scleral icterus, conjunctival injection, periorbital swelling ENT exam: Present: normal exam, normal oropharynx, mucous membranes moist Neck exam: Present: normal inspection. Absent: tenderness, meningismus, lymphadenopathy Respiratory exam: Present: wheezes (Scattered expiratory wheezes throughout the posterior lung diana), decreased breath sounds. Absent: normal lung sounds bilaterally, respiratory distress, rales, rhonchi, stridor Cardiovascular Exam: Present: regular rate, normal rhythm, normal heart sounds. Absent: systolic murmur, diastolic murmur, rubs, gallop, clicks GI/Abdominal exam: Present: soft, normal bowel sounds. Absent: distended, tenderness, guarding, rebound, rigid Neurological exam: Present: alert, oriented X3, CN II-XII intact Psychiatric exam: Present: normal affect, normal mood Skin exam: Present: warm, dry, intact, normal color. Absent: rash Course Vital Signs 07/31/17 07/31/17 07/31/17 02:20 03:05 03:15 Temperature 98.5 F Pulse Rate 68 74 65 Respiratory 20 16 Rate Blood Pressure 103/56 118/71 O2 Sat by Pulse 99 95 Oximetry 07/31/17 07/31/17 07/31/17 03:23 03:52 04:27 Temperature Pulse Rate 75 100 75 Respiratory 16 16 Rate Blood Pressure 110/72 127/71 O2 Sat by Pulse 93 L 94 L Oximetry 07/31/17 05:00 Temperature Pulse Rate 81 Respiratory 16 Rate Blood Pressure 127/71 O2 Sat by Pulse 97 Oximetry Medical Decision Making - Medical Decision Making 47-year-old female patient presented to the emergency department today for complaints of increased shortness of breath and chest pain. Symptoms are present for the last 1-2 days. Physical examination did reveal faint expiratory wheezing. Chest x-ray showed no acute cardiopulmonary process. D- dimer was elevated at 0.85 we did perform CTA of the chest. This showed no evidence for pulmonary embolism but did confirm diagnosis of pulmonary fibrosis. Patient is feeling mildly improved. Did offer admission for further evaluation by pulmonology however patient would like to try going home to follow -up with her advertising sales manager outpatient. Return parameters discussed in detail. She verbalizes understanding and agreed with this plan. - Lab Data Result diagrams: 07/31/17 03:00 07/31/17 03:00 Lab Results 07/31/17 07/31/17 07/31/17 Range/Units 03:00 03:00 03:00 WBC 8.0 (3.8-10.6) k/uL RBC 4.65 (3.80-5.40) m/uL Hgb 14.6 (11.4-16.0) gm/dL Hct 42.0 (34.0-46.0) % MCV 90.3 (80.0-100.0) fL MCH 31.3 (25.0-35.0) pg MCHC 34.7 (31.0-37.0) g/dL RDW 13.9 (11.5-15.5) % Plt Count 259 (150-450) k/uL Neutrophils % 41 % Lymphocytes % 46 % Monocytes % 6 % Eosinophils % 3 % Basophils % 1 % Neutrophils # 3.2 (1.3-7.7) k/uL Lymphocytes # 3.7 (1.0-4.8) k/uL Monocytes # 0.5 (0-1.0) k/uL Eosinophils # 0.2 (0-0.7) k/uL Basophils # 0.1 (0-0.2) k/uL PT (9.0-12.0) sec INR (<1.2) APTT (22.0-30.0) sec D-Dimer (<0.60) mg/L FEU Sodium 144 (137-145) mmol/L Potassium 3.5 (3.5-5.1) mmol/L Chloride 110 H (98-107) mmol/L Carbon Dioxide 22 (22-30) mmol/L Anion Gap 12 mmol/L BUN 10 (7-17) mg/dL Creatinine 0.90 (0.52-1.04) mg/dL Est GFR (CKD-EPI)AfAm 90 (>60 ml/min/1.73 sqM) Est GFR (CKD-EPI)NonAf 78 (>60 ml/min/1.73 sqM) Glucose 91 (74-99) mg/dL Calcium 8.7 (8.4-10.2) mg/dL Magnesium 1.9 (1.6-2.3) mg/dL Total Bilirubin 0.2 (0.2-1.3) mg/dL AST 43 H (14-36) U/L ALT 48 (9-52) U/L Alkaline Phosphatase 74 (38-126) U/L Total Creatine Kinase 62 (30-135) U/L CK-MB (CK-2) 0.5 (0.0-2.4) ng/mL CK-MB (CK-2) Rel Index 0.8 Troponin I <0.012 (0.000-0.034) ng/mL Total Protein 6.8 (6.3-8.2) g/dL Albumin 3.7 (3.5-5.0) g/dL 07/31/17 Range/Units 03:00 WBC (3.8-10.6) k/uL RBC (3.80-5.40) m/uL Hgb (11.4-16.0) gm/dL Hct (34.0-46.0) % MCV (80.0-100.0) fL MCH (25.0-35.0) pg MCHC (31.0-37.0) g/dL RDW (11.5-15.5) % Plt Count (150-450) k/uL Neutrophils % % Lymphocytes % % Monocytes % % Eosinophils % % Basophils % % Neutrophils # (1.3-7.7) k/uL Lymphocytes # (1.0-4.8) k/uL Monocytes # (0-1.0) k/uL Eosinophils # (0-0.7) k/uL Basophils # (0-0.2) k/uL PT 18.3 H (9.0-12.0) sec INR 2.0 H (<1.2) APTT 29.2 (22.0-30.0) sec D-Dimer 0.81 H (<0.60) mg/L FEU Sodium (137-145) mmol/L Potassium (3.5-5.1) mmol/L Chloride (98-107) mmol/L Carbon Dioxide (22-30) mmol/L Anion Gap mmol/L BUN (7-17) mg/dL Creatinine (0.52-1.04) mg/dL Est GFR (CKD-EPI)AfAm (>60 ml/min/1.73 sqM) Est GFR (CKD-EPI)NonAf (>60 ml/min/1.73 sqM) Glucose (74-99) mg/dL Calcium (8.4-10.2) mg/dL Magnesium (1.6-2.3) mg/dL Total Bilirubin (0.2-1.3) mg/dL AST (14-36) U/L ALT (9-52) U/L Alkaline Phosphatase (38-126) U/L Total Creatine Kinase (30-135) U/L CK-MB (CK-2) (0.0-2.4) ng/mL CK-MB (CK-2) Rel Index Troponin I (0.000-0.034) ng/mL Total Protein (6.3-8.2) g/dL Albumin (3.5-5.0) g/dL - EKG Data -: EKG Interpreted by Me EKG Comments: EKG obtained at oh to 34 shows normal sinus rhythm with ventricular rate is 67, CA interval 142, QR adventist 62, QT 410, QTC 433. No evidence of ST elevation or depression. - Radiology Data Radiology results: report reviewed, image reviewed Two-view x-ray of the chest shows a heart and mediastinum are normal. Lungs are clear consolidation. There is very slight pleural reaction at the left lateral lung base. There is no pleural effusion. Bony thorax is intact. Impression by Dr. Ty shows mild pleural diaphragmatic scarring at the lateral left lung base is unchanged. No active cardiopulmonary disease. Normal heart. CT of the chest with contrast for PE was obtained. Report was reviewed in its entirety. Impression by Dr. Briseno shows no evidence of pulmonary embolism. Minimal pleural reaction on the left side. No significant change compared to old exam. There is possible pulmonary interstitial fibrosis. Disposition Clinical Impression: Dyspnea, Pulmonary fibrosis Disposition: HOME SELF-CARE Condition: Good Instructions: Pulmonary Fibrosis (ED), Dyspnea (ED) Additional Instructions: Follow-up with her advertising sales manager as soon as possible. Return here immediately for any new, worsening, or concerning symptoms. Is patient prescribed a controlled substance at d/c from ED?: No Referrals: Liz Koch MD [Primary Care Provider] - 1-2 days Gayle Hicks MD [STAFF PHYSICIAN] - 1-2 days Time of Disposition: 04:56
[2017-07-31 03:30] LABS: Albumin 3.7 g/dL (3.5-5.0); Calcium 8.7 mg/dL (8.4-10.2); Magnesium 1.9 mg/dL (1.6-2.3); Potassium 3.5 mmol/L (3.5-5.1); Total Bilirubin 0.2 mg/dL (0.2-1.3); Total Protein 6.8 g/dL (6.3-8.2)
[2017-07-31 03:34] VITALS: RESP 16
[2017-07-31 03:38] LABS: Partial Thromboplastin Time 29.2 sec (22.0-30.0); Prothrombin Time 18.3 sec (9.0-12.0)
[2017-07-31 03:42] LABS: Creatine Kinase 62 U/L (30-135)
[2017-07-31 03:49] LABS: D-Dimer 0.81 mg/L FEU (<0.60)
[2017-07-31] MEDS ORDERED: RX INFO: IV CONTRAST WAS GIVEN 1 EACH MISC MISCELLANE PRN (03:50)
[2017-07-31] MEDS ORDERED: diphenhydrAMINE 50 MG/ML 1 ML VIAL IVP STA (03:51)
[2017-07-31] MEDS ORDERED: FAMOTIDINE 20 MG/2 ML VIAL IV STA (03:51)
[2017-07-31 03:55] LABS: Creatine Kinase MB 0.5 ng/mL (0.0-2.4); Troponin I <0.012 ng/mL (0.000-0.034)
[2017-07-31] MEDS ORDERED: ONDANSETRON 4 MG/2 ML VIAL IVP STA (03:58)
--- NOTE | 2017-07-31 04:28 | CT ---
EXAMINATION TYPE: CT chest angio for PE DATE OF EXAM: 07/31/2017 COMPARISON: 05/08/2017 HISTORY: Chest pain, R/O PE CT DLP: 557.60 mGycm Automated exposure control for dose reduction was used. CONTRAST: CT Chest for pulmonary embolism performed with with IV Contrast, patient injected with 80 mL of Isovu e 370. FINDINGS: There are 3-D post processed images. The lungs are clear of consolidation. There is some coarsening of the pulmonary interstitial markings . There is some mild pleural thickening on the left side posteriorly and laterally. There is no mobil e pleural effusion. There is no pericardial effusion. Heart is top normal in size. There is no evidence of aortic aneurysm or dissection. There is normal contrast opacification of the pulmonary arteries. I see no filling defects. There are no hilar masses. There is no mediastinal halie opathy. The bony thorax is intact. IMPRESSION: No evidence of pulmonary embolism. Minimal pleural reaction on the left side. No significant change c ompared to old exam. There is possible pulmonary interstitial fibrosis.
[2017-07-31 04:29] VITALS: BP 127/71
[2017-07-31 05:07] VITALS: PULSE 81
== END 2017-07-31 05:16 | disposition home or self-care (01) ==
LOC: EC 02:19
DX: J84.10 Pulmonary fibrosis, unspecified (principal); R42 Dizziness and giddiness; R07.89 Other chest pain; J44.9 Chronic obstructive pulmonary disease, unspecified; I11.0 Hypertensive heart disease with heart failure; I50.9 Heart failure, unspecified; E78.5 Hyperlipidemia, unspecified; I25.2 Old myocardial infarction; I25.10 Atherosclerotic heart disease of native coronary artery without angina pectoris; M79.7 Fibromyalgia; F31.9 Bipolar disorder, unspecified; F41.0 Panic disorder [episodic paroxysmal anxiety]; F17.200 Nicotine dependence, unspecified, uncomplicated; Z86.718 Personal history of other venous thrombosis and embolism; Z86.14 Personal history of Methicillin resistant Staphylococcus aureus infection; Z79.899 Other long term (current) drug therapy; Z79.01 Long term (current) use of anticoagulants; Z88.5 Allergy status to narcotic agent; Z88.1 Allergy status to other antibiotic agents; Z91.041 Radiographic dye allergy status; Z88.8 Allergy status to other drugs, medicaments and biological substances; Z88.6 Allergy status to analgesic agent; Z91.048 Other nonmedicinal substance allergy status; Z95.818 Presence of other cardiac implants and grafts
CPT/HCPCS: 36415; 94640; 93005; 85379; 80053; 82550; 82553; 83735; 84484; 85025; 85610; 85730; 87040; 71046; 71275; 99285; 96374; 96375 ×4; 96376; J2270; J1200; J2930; J2405; Q9967

== ENCOUNTER 2017-07-31 23:03 | Emergency (ER) | payer OTHER ==
[2017-08-01] MEDS ORDERED: MORPHINE SULFATE 4 MG/ML SYRINGE IM STA (00:10)
[2017-08-01] MEDS ORDERED: methylPREDNISolone SOD SUCCI 125 MG/2 ML VIAL IM STA (00:10)
--- NOTE | 2017-08-01 00:53 | XR ---
EXAMINATION TYPE: XR chest 2V DATE OF EXAM: 08/01/2017 COMPARISON: Yesterday HISTORY: Short of breath chest pain TECHNIQUE: Frontal and lateral views of the chest are obtained. FINDINGS: Heart and mediastinum are normal. There is coarsening of interstitial pulmonary markings. There is a relative poor inspiration. I see no pleural effusion. IMPRESSION: Poor inspiration with increased interstitial markings. This could relate to acute inters titial pneumonia. Inspiration is less than exam yesterday. I do not see pleural fluid or cardiomegaly to suggest heart failure.
[2017-08-01 01:03] VITALS: BP 100/53; PULSE 79; RESP 18; TEMP 97.6
--- NOTE | 2017-08-01 01:12 | ED ---
General Adult HPI - General Chief complaint: Shortness of Breath Stated complaint: Chest pain, SOB Time Seen by Provider: 07/31/17 23:41 Source: patient, RN notes reviewed Mode of arrival: wheelchair Limitations: no limitations - History of Present Illness Initial comments: Patient's a 7-year-old female with a significant past mental history for pulmonary fibrosis, sarcoidosis, presenting to the emergency room today with a chief complaint of right sided chest wall pain. She does admit to a history of pleurisy and states this feels the same. She was seen here in the emergency room early this morning for this complaint had a CAT scan of the chest which was negative for any abnormality. Patient states she was given pain medication and a shot of steroids here the emergency room. She did not follow-up her gas maker helper today. She states pain has returned. She states that it feels same as her past pain with pleurisy. Patient denies any other points her symptoms. Patient denies any recent fever, chills, shortness of breath, back pain, abdominal pain, nausea or vomiting, headaches or visual changes, or any other complaints. - Related Data Home Medications Medication Instructions Recorded Confirmed Cetirizine HCl [Zyrtec] 10 mg PO DAILY PRN 07/16/14 07/31/17 Ergocalciferol [Vitamin D2 50,000 units PO TH 07/16/14 07/31/17 (DRISDOL)] lamoTRIgine [LaMICtal] 200 mg PO DAILY 03/22/16 07/31/17 Baclofen [Lioresal] 20 mg PO TID PRN 10/18/16 07/31/17 Bumetanide 2 mg PO BID 10/18/16 07/31/17 Butalb/APAP/Caff 50-325-40Mg 1 tab PO Q4H PRN 10/18/16 07/31/17 [Fioricet 50-325-40] Ondansetron HCl [Zofran] 4 mg PO DAILY PRN 10/18/16 07/31/17 Pregabalin [Lyrica] 100 mg PO BID 10/18/16 07/31/17 Ipratropium-Albuterol Nebulize 3 ml INHALATION RT-QID PRN 04/10/17 07/31/17 [Duoneb 0.5 mg-3 mg/3 ml Soln] Mirtazapine [Remeron] 45 mg PO HS 04/10/17 07/31/17 Potassium Chloride [Klor-Con 20 meq PO HS 04/10/17 07/31/17 Sprinkle] Warfarin [Coumadin] 10 mg PO HS 04/24/17 07/31/17 Promethazine/Dextromethorphan 5 ml PO Q6HR PRN 04/26/17 07/31/17 [Promethazine-Dm Syrup] ALPRAZolam [Xanax] 0.5 mg PO BID PRN 06/06/17 07/31/17 Acetaminophen with Codeine 1 tab PO QID PRN 06/06/17 07/31/17 [Tylenol w/codeine #4] Previous Rx's Medication Instructions Recorded Albuterol Inhaler [Ventolin Hfa 2 puff INHALATION RT-Q6H PRN #1 08/20/15 Inhaler] puff FLUoxetine HCL [PROzac] 20 mg PO DAILY #30 capsule 08/20/15 Metoprolol Tartrate [Lopressor] 50 mg PO BID #60 tab 08/20/15 Montelukast [Singulair] 10 mg PO HS #30 tab 08/20/15 HYDROcodone/APAP 7.5-325MG [[place] 1 tab PO Q6HR PRN #24 tab 04/22/17 7.5-325] Azithromycin [Zithromax Z-pack] 0 mg PO DIRECTED #6 tab 08/01/17 predniSONE 50 mg PO DAILY #5 tab 08/01/17 Allergies Allergy/AdvReac Type Severity Reaction Status Date / Time ketorolac tromethamine Allergy Severe Anaphylaxis Verified 07/31/17 23:31 [From Toradol] Opioids - Morphine Analogues Allergy Mild Itching Verified 07/31/17 23:31 Iodinated Contrast- Oral and Allergy Unknown Verified 07/31/17 23:31 IV Dye rivaroxaban [From Xarelto] Allergy Rash/Hives Verified 07/31/17 23:31 sumatriptan [From Imitrex] Allergy Anaphylaxis Verified 07/31/17 23:31 sumatriptan succinate Allergy Anaphylaxis Verified 07/31/17 23:31 [From Imitrex] morphine AdvReac Severe Itching Verified 07/31/17 23:31 iodine AdvReac Intermediate Itching Verified 07/31/17 23:31 tramadol AdvReac Anaphylaxis Verified 07/31/17 23:31 vancomycin AdvReac Itching Verified 07/31/17 23:31 Rich wipes AdvReac Severe Rash/Hives Uncoded 07/31/17 02:26 Review of Systems ROS Statement: Those systems with pertinent positive or pertinent negative responses have been documented in the HPI. ROS Other: All systems not noted in ROS Statement are negative. Past Medical History Past Medical History: Blood Disorder, Heart Failure, COPD, Deep Vein Thrombosis (DVT), Hyperlipidemia, Hypertension, Myocardial Infarction (ND), Musculoskeletal Disorder, Pneumonia, Pulmonary Embolus (PE) Additional Past Medical History / Comment(s): PE 2012; Sarcoidosis diagnosed in 2015 following a bronchoscopy and lung biopsy done at [facility] and she was started on predniosone and she took the therapy for almost 1 year, polycythemia, overweight, bilateral PE (2011, 2015), bilateral DVTs, fibromyalgia, bipolar disorder, degenerative disk disorder, coronary artery disease along with previous history of a ND and ventilator dependent respiratory failure with MRSA pneumonia for which the patient was hospitalized [facility] in 2012. Viral meningitis in October 2014. Last Myocardial Infarction Date:: February 15, 2013 History of Any Multi-Drug Resistant Organisms: MRSA Date of last positivie culture/infection: 04/13/17 MDRO Source:: BRONCH Past Surgical History: Section, Cholecystectomy, Heart Catheterization , Hernia Repair, Orthopedic Surgery Additional Past Surgical History / Comment(s): Lt ankle surgery,BRONCH Past Anesthesia/Blood Transfusion Reactions: Motion Sickness, Postoperative Nausea & Vomiting (PONV) Additional Past Anesthesia/Blood Transfusion Reaction / Comment(s): pt stated that last April she coded due to anesthetic Past Psychological History: Anxiety, Bipolar, Depression, Panic Disorder Smoking Status: Current every day smoker Past Alcohol Use History: None Reported Past Drug Use History: None Reported - Past Family History Father Family Medical History: Blood Disorder, Congestive Heart Failure (CHF), CVA/TIA , Deep Vein Thrombosis (DVT), Myocardial Infarction (ND) Additional Family Medical History / Comment(s): polycythemia Mother Family Medical History: Congestive Heart Failure (CHF), Diabetes Mellitus, Deep Vein Thrombosis (DVT), Myocardial Infarction (ND), Musculoskeletal Disorder Additional Family Medical History / Comment(s): DDD Sister(s) Family Medical History: No Reported History Brother(s) Family Medical History: No Reported History Son(s) Family Medical History: No Reported History Daughter(s) Family Medical History: No Reported History General Exam - General Exam Comments Initial Comments: General: The patient is awake and alert, in no distress, and does not appear acutely ill. Eye: Pupils are equal, round and reactive to light, extra-ocular movements are intact. No nystagmus. There is normal conjunctiva bilaterally. No signs of icterus. Ears, nose, mouth and throat: There are moist mucous membranes and no oral lesions. Neck: The neck is supple, there is no tenderness or JVD. Cardiovascular: There is a regular rate and rhythm. No murmur, rub or gallop is appreciated. Tender to palpation of the right side of the lateral ribs Respiratory: Lungs are clear to auscultation, respirations are non-labored, breath sounds are equal. No wheezes, stridor, rales, or rhonchi. Musculoskeletal: Normal ROM, no tenderness. Strength 5/5. Sensation intact. Pulses equal bilaterally 2+. Neurological: A&O x 3. CN II-XII intact, There are no obvious motor or sensory deficits. Coordination appears grossly intact. Speech is normal. Skin: Skin is warm and dry and no rashes or lesions are noted. Psychiatric: Cooperative, appropriate mood & affect, normal judgment. Limitations: no limitations Course Vital Signs 07/31/17 08/01/17 23:07 01:02 Temperature 98.6 F 97.6 F Pulse Rate 70 79 Respiratory 24 18 Rate Blood Pressure 131/67 100/53 O2 Sat by Pulse 98 94 L Oximetry Medical Decision Making - Medical Decision Making Patient's previous visit was reviewed reviewed showed a negative CT of the chest. Negative cardiac enzymes. INR 2.0. Patient's chest x-ray today shows poor inspiration but possible interstitial pneumonia beginning. Patient will be treated with an antibiotic. She was given pain medication and a shot of steroids here in the emergency room will be continued on steroids as well to go home with and she is advised to talk with her gas maker helper tomorrow advised return if any symptoms increase worsen. Case discussed with attending physician Dr. Mcnair. Disposition Clinical Impression: CAP (community acquired pneumonia) Disposition: HOME SELF-CARE Condition: Good Instructions: Community Acquired Pneumonia (ED) Additional Instructions: Please use medication as discussed. Please follow-up with gas maker helper tomorrow. Please return to emergency room if the symptoms increase or worsen or for any other concerns. Prescriptions: Azithromycin [Zithromax Z-pack] 0 mg PO DIRECTED #6 tab predniSONE 50 mg PO DAILY #5 tab Is patient prescribed a controlled substance at d/c from ED?: No Referrals: Liz Koch MD [Primary Care Provider] - 1-2 days Time of Disposition: 01:10
[2017-08-01] MEDS ORDERED: cefTRIAXone 1,000 MG VIAL (IM USE) IM STA (01:24)
== END 2017-08-01 01:47 | disposition home or self-care (01) ==
LOC: EC 23:03
DX: J18.9 Pneumonia, unspecified organism (principal); I11.0 Hypertensive heart disease with heart failure; I50.9 Heart failure, unspecified; F41.0 Panic disorder [episodic paroxysmal anxiety]; E78.5 Hyperlipidemia, unspecified; I25.2 Old myocardial infarction; F31.9 Bipolar disorder, unspecified; F17.200 Nicotine dependence, unspecified, uncomplicated; Z86.14 Personal history of Methicillin resistant Staphylococcus aureus infection; Z86.711 Personal history of pulmonary embolism; Z86.718 Personal history of other venous thrombosis and embolism; Z95.5 Presence of coronary angioplasty implant and graft; Z88.1 Allergy status to other antibiotic agents; Z88.5 Allergy status to narcotic agent; Z91.041 Radiographic dye allergy status; Z91.048 Other nonmedicinal substance allergy status; Z91.09 Other allergy status, other than to drugs and biological substances; Z79.01 Long term (current) use of anticoagulants; Z79.899 Other long term (current) drug therapy
CPT/HCPCS: 99285; 96372 ×2; 71046; J2270; J2930

== ENCOUNTER 2017-08-01 08:01 | Emergency (ER) | payer OTHER ==
[2017-08-01 08:07] VITALS: TEMP 98.1
[2017-08-01] MEDS ORDERED: methylPREDNISolone SOD SUCCI 125 MG/2 ML VIAL IV STA (08:13)
[2017-08-01] MEDS ORDERED: IPRATROPIUM-ALBUTEROL 3 ML NEB INHALATION STA (08:13)
[2017-08-01 08:43] LABS: Basophils % (A) 0 %; Eosinophils # (A) 0.1 k/uL (0-0.7); Eosinophils % (A) 1 %; HCT 42.3 % (34.0-46.0); HGB 14.6 gm/dL (11.4-16.0); Lymphocytes # (A) 1.2 k/uL (1.0-4.8); Lymphocytes % (A) 19 %; MCH 31.4 pg (25.0-35.0); MCHC 34.5 g/dL (31.0-37.0); MCV 91.1 fL (80.0-100.0); Mean Platelet Volume 7.4; Monocytes # (A) 0.1 k/uL (0-1.0); Monocytes % (A) 1 %; Neutrophils # (A) 5.2 k/uL (1.3-7.7); Neutrophils % (A) 79 %; Platelet Count 258 k/uL (150-450); RBC 4.65 m/uL (3.80-5.40); RDW 13.7 % (11.5-15.5); WBC 6.6 k/uL (3.8-10.6)
[2017-08-01 08:56] LABS: ALT 35 U/L (9-52); AST 41 U/L (14-36); Alkaline Phosphatase 71 U/L (38-126); Anion Gap 14 mmol/L; Blood Urea Nitrogen 13 mg/dL (7-17); Carbon Dioxide 18 mmol/L (22-30); Chloride 109 mmol/L (98-107); Glucose 203 mg/dL (74-99); Magnesium 1.8 mg/dL (1.6-2.3); Potassium 4.5 mmol/L (3.5-5.1); Sodium 141 mmol/L (137-145); Total Bilirubin 0.4 mg/dL (0.2-1.3); Total Protein 7.1 g/dL (6.3-8.2)
--- NOTE | 2017-08-01 09:21 | ED ---
SOB HPI - General Chief Complaint: Shortness of Breath Stated Complaint: SOB, pneumonia Time Seen by Provider: 08/01/17 08:11 Source: patient, RN notes reviewed Mode of arrival: wheelchair Limitations: no limitations - History of Present Illness Initial Comments: 47-year-old female presented emergency Department chief complaint of shortness breath. Patient has been seen twice in the ER for this complaint. Patient states that she was told she had pneumonia last night so she is concerned. She states she does not feel worse. She has an appointment coming up this afternoon with Dr. Hicks. Patient states she has not taken a recent breathing treatment. Denies any known fever. Patient has no current chest pain , nausea vomiting. - Related Data Home Medications Medication Instructions Recorded Confirmed Cetirizine HCl [Zyrtec] 10 mg PO DAILY PRN 07/16/14 08/01/17 Ergocalciferol [Vitamin D2 50,000 units PO TH 07/16/14 08/01/17 (DRISDOL)] lamoTRIgine [LaMICtal] 200 mg PO DAILY 03/22/16 08/01/17 Baclofen [Lioresal] 20 mg PO TID PRN 10/18/16 08/01/17 Bumetanide 2 mg PO BID 10/18/16 08/01/17 Butalb/APAP/Caff 50-325-40Mg 1 tab PO Q4H PRN 10/18/16 08/01/17 [Fioricet 50-325-40] Ondansetron HCl [Zofran] 4 mg PO DAILY PRN 10/18/16 08/01/17 Pregabalin [Lyrica] 100 mg PO BID 10/18/16 08/01/17 Ipratropium-Albuterol Nebulize 3 ml INHALATION RT-QID PRN 04/10/17 08/01/17 [Duoneb 0.5 mg-3 mg/3 ml Soln] Mirtazapine [Remeron] 45 mg PO HS 04/10/17 08/01/17 Potassium Chloride [Klor-Con 20 meq PO HS 04/10/17 08/01/17 Sprinkle] Warfarin [Coumadin] 10 mg PO HS 04/24/17 08/01/17 Promethazine/Dextromethorphan 5 ml PO Q6HR PRN 04/26/17 08/01/17 [Promethazine-Dm Syrup] ALPRAZolam [Xanax] 0.5 mg PO BID PRN 06/06/17 08/01/17 Acetaminophen with Codeine 1 tab PO QID PRN 06/06/17 08/01/17 [Tylenol w/codeine #4] Azithromycin [Zithromax Z-pack] See Taper PO DAILY 08/01/17 08/01/17 Previous Rx's Medication Instructions Recorded Albuterol Inhaler [Ventolin Hfa 2 puff INHALATION RT-Q6H PRN #1 08/20/15 Inhaler] puff FLUoxetine HCL [PROzac] 20 mg PO DAILY #30 capsule 08/20/15 Metoprolol Tartrate [Lopressor] 50 mg PO BID #60 tab 08/20/15 Montelukast [Singulair] 10 mg PO HS #30 tab 08/20/15 HYDROcodone/APAP 7.5-325MG [[place] 1 tab PO Q6HR PRN #24 tab 04/22/17 7.5-325] predniSONE 50 mg PO DAILY #5 tab 08/01/17 Allergies Allergy/AdvReac Type Severity Reaction Status Date / Time ketorolac tromethamine Allergy Severe Anaphylaxis Verified 08/01/17 08:38 [From Toradol] Opioids - Morphine Analogues Allergy Mild Itching Verified 08/01/17 08:38 Iodinated Contrast- Oral and Allergy Unknown Verified 08/01/17 08:38 IV Dye rivaroxaban [From Xarelto] Allergy Rash/Hives Verified 08/01/17 08:38 sumatriptan [From Imitrex] Allergy Anaphylaxis Verified 08/01/17 08:38 sumatriptan succinate Allergy Anaphylaxis Verified 08/01/17 08:38 [From Imitrex] morphine AdvReac Severe Itching Verified 08/01/17 08:38 iodine AdvReac Intermediate Itching Verified 08/01/17 08:38 tramadol AdvReac Anaphylaxis Verified 08/01/17 08:38 vancomycin AdvReac Itching Verified 08/01/17 08:38 Rich wipes AdvReac Severe Rash/Hives Uncoded 07/31/17 02:26 Review of Systems ROS Statement: Those systems with pertinent positive or pertinent negative responses have been documented in the HPI. ROS Other: All systems not noted in ROS Statement are negative. Past Medical History Past Medical History: Blood Disorder, Heart Failure, COPD, Deep Vein Thrombosis (DVT), Hyperlipidemia, Hypertension, Myocardial Infarction (RI), Musculoskeletal Disorder, Pneumonia, Pulmonary Embolus (PE) Additional Past Medical History / Comment(s): PE 2012; Sarcoidosis diagnosed in 2015 following a bronchoscopy and lung biopsy done at [facility] and she was started on predniosone and she took the therapy for almost 1 year, polycythemia, overweight, bilateral PE (2011, 2015), bilateral DVTs, fibromyalgia, bipolar disorder, degenerative disk disorder, coronary artery disease along with previous history of a RI and ventilator dependent respiratory failure with MRSA pneumonia for which the patient was hospitalized [facility] in 2012. Viral meningitis in October 2014. Last Myocardial Infarction Date:: February 15, 2013 History of Any Multi-Drug Resistant Organisms: MRSA Date of last positivie culture/infection: 04/13/17 MDRO Source:: BRONCH Past Surgical History: Section, Cholecystectomy, Heart Catheterization , Hernia Repair, Orthopedic Surgery Additional Past Surgical History / Comment(s): Lt ankle surgery,BRONCH Past Anesthesia/Blood Transfusion Reactions: Motion Sickness, Postoperative Nausea & Vomiting (PONV) Additional Past Anesthesia/Blood Transfusion Reaction / Comment(s): pt stated that last April she coded due to anesthetic Past Psychological History: Anxiety, Bipolar, Depression, Panic Disorder Smoking Status: Current every day smoker Past Alcohol Use History: None Reported Past Drug Use History: None Reported - Past Family History Father Family Medical History: Blood Disorder, Congestive Heart Failure (CHF), CVA/TIA , Deep Vein Thrombosis (DVT), Myocardial Infarction (RI) Additional Family Medical History / Comment(s): polycythemia Mother Family Medical History: Congestive Heart Failure (CHF), Diabetes Mellitus, Deep Vein Thrombosis (DVT), Myocardial Infarction (RI), Musculoskeletal Disorder Additional Family Medical History / Comment(s): DDD Sister(s) Family Medical History: No Reported History Brother(s) Family Medical History: No Reported History Son(s) Family Medical History: No Reported History Daughter(s) Family Medical History: No Reported History General Exam Limitations: no limitations General appearance: alert, in no apparent distress Head exam: Present: atraumatic, normocephalic, normal inspection Eye exam: Present: normal appearance, PERRL, EOMI. Absent: scleral icterus, conjunctival injection, periorbital swelling ENT exam: Present: normal exam, normal oropharynx, mucous membranes moist Neck exam: Present: normal inspection. Absent: tenderness, meningismus, lymphadenopathy Respiratory exam: Present: wheezes (Minimal wheeze, forced expiratory). Absent : normal lung sounds bilaterally, respiratory distress, rales, rhonchi, stridor Cardiovascular Exam: Present: regular rate, normal rhythm, normal heart sounds. Absent: systolic murmur, diastolic murmur, rubs, gallop, clicks Course Vital Signs 08/01/17 08/01/17 08/01/17 08:03 08:37 08:39 Temperature 98.1 F Pulse Rate 88 88 Respiratory 22 20 Rate Blood Pressure 123/66 O2 Sat by Pulse 97 Oximetry 08/01/17 08:55 Temperature Pulse Rate 92 Respiratory Rate Blood Pressure O2 Sat by Pulse Oximetry Medical Decision Making - Medical Decision Making 47-year-old female presented emergency department for concerns of pneumonia. Patient's x-ray reviewed from last night showed possibility of pneumonia no clear evidence. Patient had CT within 24 hours prior to that which showed no evidence of pneumonia. Patient has appointment with chemical equipment sales engineer this afternoon. Patient was given Solu-Medrol 60 mg IV as she had 125mg 7 hours prior. Patient was given a DuoNeb treatment. Patient will follow-up in office today. Return parameters were discussed. - Lab Data Result diagrams: 08/01/17 08:30 08/01/17 08:30 Lab Results 08/01/17 08/01/17 Range/Units 08:30 08:30 WBC 6.6 (3.8-10.6) k/uL RBC 4.65 (3.80-5.40) m/uL Hgb 14.6 (11.4-16.0) gm/dL Hct 42.3 (34.0-46.0) % MCV 91.1 (80.0-100.0) fL MCH 31.4 (25.0-35.0) pg MCHC 34.5 (31.0-37.0) g/dL RDW 13.7 (11.5-15.5) % Plt Count 258 (150-450) k/uL Neutrophils % 79 % Lymphocytes % 19 % Monocytes % 1 % Eosinophils % 1 % Basophils % 0 % Neutrophils # 5.2 (1.3-7.7) k/uL Lymphocytes # 1.2 (1.0-4.8) k/uL Monocytes # 0.1 (0-1.0) k/uL Eosinophils # 0.1 (0-0.7) k/uL Basophils # 0.0 (0-0.2) k/uL Sodium 141 (137-145) mmol/L Potassium 4.5 (3.5-5.1) mmol/L Chloride 109 H (98-107) mmol/L Carbon Dioxide 18 L (22-30) mmol/L Anion Gap 14 mmol/L BUN 13 (7-17) mg/dL Creatinine 0.58 (0.52-1.04) mg/dL Est GFR (CKD-EPI)AfAm >90 (>60 ml/min/1.73 sqM) Est GFR (CKD-EPI)NonAf >90 (>60 ml/min/1.73 sqM) Glucose 203 H (74-99) mg/dL Calcium 9.0 (8.4-10.2) mg/dL Magnesium 1.8 (1.6-2.3) mg/dL Total Bilirubin 0.4 (0.2-1.3) mg/dL AST 41 H (14-36) U/L ALT 35 (9-52) U/L Alkaline Phosphatase 71 (38-126) U/L Total Protein 7.1 (6.3-8.2) g/dL Albumin 4.0 (3.5-5.0) g/dL Disposition Clinical Impression: Pulmonary fibrosis, Bronchospasm Disposition: HOME SELF-CARE Condition: Stable Instructions: Bronchospasm (ED) Additional Instructions: Please return to the Emergency Department if symptoms worsen or any other concerns. Is patient prescribed a controlled substance at d/c from ED?: No Referrals: Liz Koch MD [Primary Care Provider] - 1-2 days Time of Disposition: 09:21
[2017-08-01 09:37] VITALS: BP 120/64; PULSE 93; RESP 16
== END 2017-08-01 09:37 | disposition home or self-care (01) ==
LOC: EC 08:01
DX: J98.01 Acute bronchospasm (principal); J84.10 Pulmonary fibrosis, unspecified; J44.9 Chronic obstructive pulmonary disease, unspecified; I25.2 Old myocardial infarction; I11.0 Hypertensive heart disease with heart failure; I50.9 Heart failure, unspecified; I25.10 Atherosclerotic heart disease of native coronary artery without angina pectoris; M79.7 Fibromyalgia; J96.90 Respiratory failure, unspecified, unspecified whether with hypoxia or hypercapnia; Z99.11 Dependence on respirator [ventilator] status; F31.9 Bipolar disorder, unspecified; F41.0 Panic disorder [episodic paroxysmal anxiety]; F17.200 Nicotine dependence, unspecified, uncomplicated; Z86.711 Personal history of pulmonary embolism; Z86.718 Personal history of other venous thrombosis and embolism; Z86.14 Personal history of Methicillin resistant Staphylococcus aureus infection; Z79.01 Long term (current) use of anticoagulants; Z79.899 Other long term (current) drug therapy; Z88.1 Allergy status to other antibiotic agents; Z91.041 Radiographic dye allergy status; Z91.048 Other nonmedicinal substance allergy status; Z88.5 Allergy status to narcotic agent; Z88.6 Allergy status to analgesic agent; Z88.8 Allergy status to other drugs, medicaments and biological substances; Z95.818 Presence of other cardiac implants and grafts
CPT/HCPCS: 36415; 94640; 80053; 83735; 85025; 99285; 96374; J2930

== ENCOUNTER → 2017-08-06 | Outpatient (CLI) | payer OTHER ==
--- NOTE | 2017-08-06 08:02 | MR ---
PRE AND POSTCONTRAST ENHANCED MRI OF THE BRAIN: CLINICAL HISTORY: Visual disturbance with migraine CONTRAST: 11 ML Multihance Multiplanar and multispin-echo imaging of the brain was performed both before and after the administr ation of contrast. The ventricles, basal cisterns and sulci overlying the cerebral convexities are within normal limits. There is no evidence for midline shift or mass effect. Acute intracranial hemorrhage or extra-axial collection is not evident. There are no abnormal areas of increased or decreased signal intensity within the brain parenchyma. Following contrast administration, there is no evidence for pathologic enhancement or enhancing mass. The paranasal sinuses and mastoid air cells are well-aerated. IMPRESSION: Unremarkable pre and postcontrast enhanced MRI of the brain.
== END | disposition home or self-care (01) ==
LOC: RADMRIMAIN 07:11
PROVIDERS: ATTEND Nurse Practitioner Family
DX: H53.8 Other visual disturbances (principal); G43.109 Migraine with aura, not intractable, without status migrainosus
CPT/HCPCS: 70553; A9581

== ENCOUNTER 2017-08-16 18:12 | Emergency (ER) | payer OTHER ==
[2017-08-16 18:24] VITALS: TEMP 98.4
[2017-08-16] MEDS ORDERED: IPRATROPIUM 0.5 MG/2.5 ML NEBU INHALATION STA (18:50)
[2017-08-16] MEDS ORDERED: ALBUTEROL NEBULIZED 2.5 MG/3 ML INHALATION STA (18:50)
[2017-08-16] MEDS ORDERED: methylPREDNISolone SOD SUCCI 125 MG/2 ML VIAL IV STA (18:50)
--- NOTE | 2017-08-16 18:55 | ED ---
General Adult HPI - General Chief complaint: Shortness of Breath Stated complaint: Dizziness Time Seen by Provider: 08/16/17 18:26 Source: patient, RN notes reviewed, old records reviewed Mode of arrival: wheelchair Limitations: no limitations - History of Present Illness Initial comments: 47-year-old female history of COPD, and pulmonary embolism, currently on home oxygen and Coumadin presenting for worsening dyspnea. Patient states her symptoms have been bad for one week but of significantly worsened today. She has had cough which is productive of brown sputum. No fever. No lower extremity swelling. She complains of sharp chest pain worse with deep inspiration. Denies central chest pain. - Related Data Home Medications Medication Instructions Recorded Confirmed Cetirizine HCl [Zyrtec] 10 mg PO DAILY PRN 07/16/14 08/16/17 Ergocalciferol [Vitamin D2 50,000 units PO TH 07/16/14 08/16/17 (DRISDOL)] lamoTRIgine [LaMICtal] 200 mg PO DAILY 03/22/16 08/16/17 Baclofen [Lioresal] 20 mg PO TID PRN 10/18/16 08/16/17 Bumetanide 2 mg PO BID 10/18/16 08/16/17 Butalb/APAP/Caff 50-325-40Mg 1 tab PO Q4H PRN 10/18/16 08/16/17 [Fioricet 50-325-40] Ondansetron HCl [Zofran] 4 mg PO DAILY PRN 10/18/16 08/16/17 Pregabalin [Lyrica] 100 mg PO BID 10/18/16 08/16/17 Ipratropium-Albuterol Nebulize 3 ml INHALATION RT-QID PRN 04/10/17 08/16/17 [Duoneb 0.5 mg-3 mg/3 ml Soln] Mirtazapine [Remeron] 45 mg PO HS 04/10/17 08/16/17 Potassium Chloride [Klor-Con 20 meq PO HS 04/10/17 08/16/17 Sprinkle] Warfarin [Coumadin] 10 mg PO HS 04/24/17 08/16/17 Promethazine/Dextromethorphan 5 ml PO Q6HR PRN 04/26/17 08/16/17 [Promethazine-Dm Syrup] ALPRAZolam [Xanax] 0.5 mg PO BID PRN 06/06/17 08/16/17 Acetaminophen with Codeine 1 tab PO QID PRN 06/06/17 08/16/17 [Tylenol w/codeine #4] Previous Rx's Medication Instructions Recorded Albuterol Inhaler [Ventolin Hfa 2 puff INHALATION RT-Q6H PRN #1 08/20/15 Inhaler] puff FLUoxetine HCL [PROzac] 20 mg PO DAILY #30 capsule 08/20/15 Metoprolol Tartrate [Lopressor] 50 mg PO BID #60 tab 08/20/15 Montelukast [Singulair] 10 mg PO HS #30 tab 08/20/15 HYDROcodone/APAP 7.5-325MG [Anza 1 tab PO Q6HR PRN #24 tab 04/22/17 7.5-325] Allergies Allergy/AdvReac Type Severity Reaction Status Date / Time ketorolac tromethamine Allergy Severe Anaphylaxis Verified 08/16/17 18:46 [From Toradol] Opioids - Morphine Analogues Allergy Mild Itching Verified 08/16/17 18:46 Iodinated Contrast- Oral and Allergy Unknown Verified 08/16/17 18:46 IV Dye rivaroxaban [From Xarelto] Allergy Rash/Hives Verified 08/16/17 18:46 sumatriptan [From Imitrex] Allergy Anaphylaxis Verified 08/16/17 18:46 sumatriptan succinate Allergy Anaphylaxis Verified 08/16/17 18:46 [From Imitrex] morphine AdvReac Severe Itching Verified 08/16/17 18:46 iodine AdvReac Intermediate Itching Verified 08/16/17 18:46 tramadol AdvReac Anaphylaxis Verified 08/16/17 18:46 vancomycin AdvReac Itching Verified 08/16/17 18:46 Rich wipes AdvReac Severe Rash/Hives Uncoded 08/16/17 18:24 Review of Systems ROS Statement: Those systems with pertinent positive or pertinent negative responses have been documented in the HPI. ROS Other: All systems not noted in ROS Statement are negative. Past Medical History Past Medical History: Blood Disorder, Heart Failure, COPD, Deep Vein Thrombosis (DVT), Hyperlipidemia, Hypertension, Myocardial Infarction (DE), Musculoskeletal Disorder, Pneumonia, Pulmonary Embolus (PE) Additional Past Medical History / Comment(s): PE 2012; Sarcoidosis diagnosed in 2015 following a bronchoscopy and lung biopsy done at [facility] and she was started on predniosone and she took the therapy for almost 1 year, polycythemia, overweight, bilateral PE (2011, 2015), bilateral DVTs, fibromyalgia, bipolar disorder, degenerative disk disorder, coronary artery disease along with previous history of a DE and ventilator dependent respiratory failure with MRSA pneumonia for which the patient was hospitalized [facility] in 2012. Viral meningitis in October 2014. Last Myocardial Infarction Date:: February 15, 2013 History of Any Multi-Drug Resistant Organisms: MRSA Date of last positivie culture/infection: 04/13/17 MDRO Source:: BRONCH Past Surgical History: Section, Cholecystectomy, Heart Catheterization , Hernia Repair, Orthopedic Surgery Additional Past Surgical History / Comment(s): Lt ankle surgery,BRONCH Past Anesthesia/Blood Transfusion Reactions: Motion Sickness, Postoperative Nausea & Vomiting (PONV) Additional Past Anesthesia/Blood Transfusion Reaction / Comment(s): pt stated that last April she coded due to anesthetic Past Psychological History: Anxiety, Bipolar, Depression, Panic Disorder Smoking Status: Current every day smoker Past Alcohol Use History: None Reported Past Drug Use History: None Reported - Past Family History Father Family Medical History: Blood Disorder, Congestive Heart Failure (CHF), CVA/TIA , Deep Vein Thrombosis (DVT), Myocardial Infarction (DE) Additional Family Medical History / Comment(s): polycythemia Mother Family Medical History: Congestive Heart Failure (CHF), Diabetes Mellitus, Deep Vein Thrombosis (DVT), Myocardial Infarction (DE), Musculoskeletal Disorder Additional Family Medical History / Comment(s): DDD Sister(s) Family Medical History: No Reported History Brother(s) Family Medical History: No Reported History Son(s) Family Medical History: No Reported History Daughter(s) Family Medical History: No Reported History General Exam Limitations: no limitations General appearance: alert, in no apparent distress Head exam: Present: atraumatic, normocephalic Eye exam: Present: normal appearance, PERRL, EOMI ENT exam: Present: normal exam. Absent: normal oropharynx, mucous membranes dry Neck exam: Present: normal inspection. Absent: tenderness, meningismus Respiratory exam: Present: respiratory distress, wheezes, decreased breath sounds, prolonged expiratory. Absent: accessory muscle use Cardiovascular Exam: Present: regular rate. Absent: normal rhythm, bradycardia GI/Abdominal exam: Present: soft. Absent: distended, tenderness, guarding Extremities exam: Present: normal inspection, normal capillary refill. Absent: pedal edema Neurological exam: Present: alert, oriented X3, CN II-XII intact. Absent: motor sensory deficit Psychiatric exam: Present: normal affect, normal mood Skin exam: Present: warm, dry, intact. Absent: cyanosis, diaphoretic Course Vital Signs 08/16/17 08/16/17 08/16/17 18:22 19:06 19:17 Temperature 98.4 F Pulse Rate 87 78 Respiratory 20 18 20 Rate Blood Pressure 103/55 O2 Sat by Pulse 100 Oximetry 08/16/17 08/16/17 08/16/17 19:20 19:31 19:58 Temperature Pulse Rate 84 82 80 Respiratory 18 20 18 Rate Blood Pressure 120/75 116/64 O2 Sat by Pulse 100 98 Oximetry 08/16/17 20:30 Temperature Pulse Rate 89 Respiratory 18 Rate Blood Pressure 104/59 O2 Sat by Pulse 100 Oximetry EKG Findings - EKG Comments: EKG Findings:: EKG normal sinus rhythm, low voltage, rate of 81, VT interval 146 , QRS duration 72, QTC 462 Medical Decision Making - Medical Decision Making Patient receives albuterol, Atrovent, steroids, she is given Tylenol but she refuses this for her pain. She does have an ALLERGY to morphine, however when she discovers that the hospital is out of Dilaudid she states that this is not a real ALLERGY. She then proceeds to leave AGAINST MEDICAL ADVICE. - Lab Data Result diagrams: 08/16/17 19:39 08/16/17 19:39 Lab Results 08/16/17 08/16/17 08/16/17 Range/Units 19:39 19:39 19:39 WBC 11.1 H (3.8-10.6) k/uL RBC 5.04 (3.80-5.40) m/uL Hgb 15.9 (11.4-16.0) gm/dL Hct 47.9 H (34.0-46.0) % MCV 95.0 (80.0-100.0) fL MCH 31.5 (25.0-35.0) pg MCHC 33.2 (31.0-37.0) g/dL RDW 13.8 (11.5-15.5) % Plt Count 210 (150-450) k/uL Neutrophils % 54 % Lymphocytes % 35 % Monocytes % 6 % Eosinophils % 2 % Basophils % 1 % Neutrophils # 6.0 (1.3-7.7) k/uL Lymphocytes # 3.9 (1.0-4.8) k/uL Monocytes # 0.7 (0-1.0) k/uL Eosinophils # 0.2 (0-0.7) k/uL Basophils # 0.1 (0-0.2) k/uL PT 26.1 H (9.0-12.0) sec INR 2.9 H (<1.2) APTT 33.1 H (22.0-30.0) sec Sodium 142 (137-145) mmol/L Potassium 3.1 L (3.5-5.1) mmol/L Chloride 108 H (98-107) mmol/L Carbon Dioxide 22 (22-30) mmol/L Anion Gap 12 mmol/L BUN 9 (7-17) mg/dL Creatinine 0.60 (0.52-1.04) mg/dL Est GFR (CKD-EPI)AfAm >90 (>60 ml/min/1.73 sqM) Est GFR (CKD-EPI)NonAf >90 (>60 ml/min/1.73 sqM) Glucose 95 (74-99) mg/dL Calcium 8.9 (8.4-10.2) mg/dL Magnesium 2.0 (1.6-2.3) mg/dL Total Bilirubin 0.3 (0.2-1.3) mg/dL AST 46 H (14-36) U/L ALT 54 H (9-52) U/L Alkaline Phosphatase 75 (38-126) U/L Total Creatine Kinase (30-135) U/L CK-MB (CK-2) (0.0-2.4) ng/mL CK-MB (CK-2) Rel Index Troponin I (0.000-0.034) ng/mL NT-Pro-B Natriuret Pep pg/mL Total Protein 7.2 (6.3-8.2) g/dL Albumin 3.9 (3.5-5.0) g/dL 05/17/18 05/17/18 Range/Units 19:39 19:39 WBC (3.8-10.6) k/uL RBC (3.80-5.40) m/uL Hgb (11.4-16.0) gm/dL Hct (34.0-46.0) % MCV (80.0-100.0) fL MCH (25.0-35.0) pg MCHC (31.0-37.0) g/dL RDW (11.5-15.5) % Plt Count (150-450) k/uL Neutrophils % % Lymphocytes % % Monocytes % % Eosinophils % % Basophils % % Neutrophils # (1.3-7.7) k/uL Lymphocytes # (1.0-4.8) k/uL Monocytes # (0-1.0) k/uL Eosinophils # (0-0.7) k/uL Basophils # (0-0.2) k/uL PT (9.0-12.0) sec INR (<1.2) APTT (22.0-30.0) sec Sodium (137-145) mmol/L Potassium (3.5-5.1) mmol/L Chloride (98-107) mmol/L Carbon Dioxide (22-30) mmol/L Anion Gap mmol/L BUN (7-17) mg/dL Creatinine (0.52-1.04) mg/dL Est GFR (CKD-EPI)AfAm (>60 ml/min/1.73 sqM) Est GFR (CKD-EPI)NonAf (>60 ml/min/1.73 sqM) Glucose (74-99) mg/dL Calcium (8.4-10.2) mg/dL Magnesium (1.6-2.3) mg/dL Total Bilirubin (0.2-1.3) mg/dL AST (14-36) U/L ALT (9-52) U/L Alkaline Phosphatase (38-126) U/L Total Creatine Kinase 65 (30-135) U/L CK-MB (CK-2) 0.6 (0.0-2.4) ng/mL CK-MB (CK-2) Rel Index 0.9 Troponin I <0.012 (0.000-0.034) ng/mL NT-Pro-B Natriuret Pep 141 pg/mL Total Protein (6.3-8.2) g/dL Albumin (3.5-5.0) g/dL Disposition Clinical Impression: Asthma with exacerbation, Chest pain Disposition: Left Against Medical Advice Condition: Fair Referrals: Liz Koch MD [Primary Care Provider] - 1-2 days Time of Disposition: 20:36
[2017-08-16] MEDS ORDERED: ACETAMINOPHEN IV (For NPO) 1,000 MG in EMPTY BAG 1 BAG IVPB ONE (19:00)
[2017-08-16] MEDS ORDERED: MORPHINE SULFATE 4 MG/ML SYRINGE IVP STA (19:51)
[2017-08-16 19:58] LABS: INR 2.9 (<1.2); Partial Thromboplastin Time 33.1 sec (22.0-30.0); Prothrombin Time 26.1 sec (9.0-12.0)
[2017-08-16 19:59] VITALS: RESP 18
[2017-08-16 20:00] LABS: Basophils # (A) 0.1 k/uL (0-0.2); Basophils % (A) 1 %; Eosinophils # (A) 0.2 k/uL (0-0.7); Eosinophils % (A) 2 %; HCT 47.9 % (34.0-46.0); HGB 15.9 gm/dL (11.4-16.0); Lymphocytes # (A) 3.9 k/uL (1.0-4.8); Lymphocytes % (A) 35 %; MCH 31.5 pg (25.0-35.0); MCHC 33.2 g/dL (31.0-37.0); Mean Platelet Volume 6.9; Monocytes # (A) 0.7 k/uL (0-1.0); Monocytes % (A) 6 %; Neutrophils % (A) 54 %; Platelet Count 210 k/uL (150-450); RBC 5.04 m/uL (3.80-5.40); RDW 13.8 % (11.5-15.5); WBC 11.1 k/uL (3.8-10.6)
[2017-08-16 20:06] LABS: Creatine Kinase 65 U/L (30-135)
[2017-08-16 20:08] LABS: ALT 54 U/L (9-52); AST 46 U/L (14-36); Albumin 3.9 g/dL (3.5-5.0); Alkaline Phosphatase 75 U/L (38-126); Anion Gap 12 mmol/L; Blood Urea Nitrogen 9 mg/dL (7-17); Calcium 8.9 mg/dL (8.4-10.2); Carbon Dioxide 22 mmol/L (22-30); Chloride 108 mmol/L (98-107); Glucose 95 mg/dL (74-99); Potassium 3.1 mmol/L (3.5-5.1); Sodium 142 mmol/L (137-145); Total Bilirubin 0.3 mg/dL (0.2-1.3); Total Protein 7.2 g/dL (6.3-8.2)
[2017-08-16 20:19] LABS: Creatine Kinase MB 0.6 ng/mL (0.0-2.4); Troponin I <0.012 ng/mL (0.000-0.034)
[2017-08-16] MEDS ORDERED: POTASSIUM CHLORIDE ER 20 MEQ TAB.ER PO STA (20:25)
[2017-08-16 20:31] VITALS: BP 104/59; PULSE 89
--- NOTE | 2017-08-16 20:59 | XR ---
EXAMINATION: XR chest 2V DATE AND TIME: 08/16/2017 8:12 PM ORDERING PROVIDER: Bhupendra Baker MD CLINICAL INDICATION: difficulty breathing TECHNIQUE: PA and lateral COMPARISON: 05/20 DESCRIPTION: Overlying soft tissues are prominent. There is mild silhouetting of the pulmonary vasculature symmetrically by a fine reticular pattern of increased attenuation consistent with interstitial phase pulmonary edema. Otherwise, the lungs are cl ear. The pleural spaces are negative. The cardiac silhouette is not enlarged. The mediastinal and pleural silhouettes are unremarkable. The skeletal structures are intact without focal findings. The soft tissues are unremarkable. IMPRESSION: Interstitial phase pulmonary edema.
== END 2017-08-16 20:44 | disposition left against medical advice (07) ==
LOC: EC 18:12
DX: J45.901 Unspecified asthma with (acute) exacerbation (principal); I11.0 Hypertensive heart disease with heart failure; I50.9 Heart failure, unspecified; E78.5 Hyperlipidemia, unspecified; I25.2 Old myocardial infarction; J96.90 Respiratory failure, unspecified, unspecified whether with hypoxia or hypercapnia; F41.0 Panic disorder [episodic paroxysmal anxiety]; F31.9 Bipolar disorder, unspecified; F17.200 Nicotine dependence, unspecified, uncomplicated; Z86.14 Personal history of Methicillin resistant Staphylococcus aureus infection; Z86.711 Personal history of pulmonary embolism; Z86.718 Personal history of other venous thrombosis and embolism; Z79.01 Long term (current) use of anticoagulants; Z79.899 Other long term (current) drug therapy; Z88.5 Allergy status to narcotic agent; Z88.6 Allergy status to analgesic agent; Z91.041 Radiographic dye allergy status; Z88.1 Allergy status to other antibiotic agents; Z88.8 Allergy status to other drugs, medicaments and biological substances; Z91.048 Other nonmedicinal substance allergy status; Z95.818 Presence of other cardiac implants and grafts; Z53.29 Procedure and treatment not carried out because of patient's decision for other reasons
CPT/HCPCS: 36415; 94640; 93005; 83880; 80053; 82550; 82553; 83735; 84484; 85025; 85610; 85730; 87040; 71046; 99285; 96374; 96375; J2270; J2930

== ENCOUNTER 2017-09-16 15:03 | Emergency (ER) | payer OTHER ==
[2017-09-16 15:40] LABS: Basophils # (A) 0.1 k/uL (0-0.2); Basophils % (A) 1 %; Eosinophils # (A) 0.3 k/uL (0-0.7); Eosinophils % (A) 3 %; HCT 44.5 % (34.0-46.0); HGB 15.9 gm/dL (11.4-16.0); Lymphocytes # (A) 2.9 k/uL (1.0-4.8); Lymphocytes % (A) 32 %; MCH 31.1 pg (25.0-35.0); MCHC 35.7 g/dL (31.0-37.0); Mean Platelet Volume 7.4; Monocytes # (A) 0.6 k/uL (0-1.0); Monocytes % (A) 6 %; Neutrophils % (A) 56 %; Platelet Count 271 k/uL (150-450); RBC 5.11 m/uL (3.80-5.40); RDW 13.8 % (11.5-15.5); VBG PH 7.52 (7.31-7.41)
[2017-09-16 15:43] LABS: MCV 87.2 fL (80.0-100.0)
[2017-09-16 15:48] LABS: INR 1.5 (<1.2); Partial Thromboplastin Time 27.7 sec (22.0-30.0); Prothrombin Time 14.1 sec (9.0-12.0)
[2017-09-16 15:51] LABS: Appearance,Urine Clear (Clear); Bilirubin,Urine Negative (Negative); Blood,Urine Negative (Negative); Color,Urine Colorless; Glucose,Urine (UA) Negative (Negative); Ketones,Urine Negative (Negative); Lactic Acid, Venous 1.3 mmol/L (0.7-2.0); Leukocyte Esterase,Urine Negative (Negative); Nitrite,Urine Negative (Negative); PH, Urine 7.5 (5.0-8.0); Protein,Urine Negative (Negative); Specific Gravity,Urine 1.005 (1.001-1.035); Urobilinogen,Urine <2.0 mg/dL (<2.0)
[2017-09-16 15:53] LABS: ALT 52 U/L (9-52); AST 48 U/L (14-36); Albumin 3.8 g/dL (3.5-5.0); Alkaline Phosphatase 81 U/L (38-126); Anion Gap 10 mmol/L; Blood Urea Nitrogen 9 mg/dL (7-17); Calcium 8.7 mg/dL (8.4-10.2); Carbon Dioxide 27 mmol/L (22-30); Chloride 102 mmol/L (98-107); Glucose 108 mg/dL (74-99); Magnesium 1.7 mg/dL (1.6-2.3); Sodium 139 mmol/L (137-145); Total Bilirubin 0.6 mg/dL (0.2-1.3); Total Protein 6.8 g/dL (6.3-8.2)
[2017-09-16 16:01] LABS: Potassium 2.9 mmol/L (3.5-5.1)
[2017-09-16] MEDS ORDERED: POTASSIUM CHLORIDE ER 20 MEQ TAB.ER PO STA (16:04)
[2017-09-16] MEDS ORDERED: IPRATROPIUM-ALBUTEROL 3 ML NEB INHALATION STA (16:04)
[2017-09-16] MEDS ORDERED: predniSONE 20 MG TAB PO STA (16:04)
[2017-09-16 16:08] LABS: Creatine Kinase 45 U/L (30-135)
[2017-09-16 16:21] LABS: Creatine Kinase MB <0.2 ng/mL (0.0-2.4); Troponin I <0.012 ng/mL (0.000-0.034)
[2017-09-16 16:33] VITALS: RESP 16
--- NOTE | 2017-09-16 16:39 | XR ---
EXAMINATION TYPE: XR chest 1V portable DATE OF EXAM: 09/16/2017 COMPARISON: 08/16/2017 HISTORY: Short of breath TECHNIQUE: Single frontal view of the chest is obtained. FINDINGS: There is increased density over the right lower lobe consistent with airspace pneumonia. T here is no gross heart failure. Heart size is normal. There are chest leads. There is poor inspiratio n.. IMPRESSION: New right lower lobe pneumonia compared to old exam. No heart failure.
--- NOTE | 2017-09-16 17:09 | ED ---
SOB HPI - General Chief Complaint: Weakness Stated Complaint: Lethargy Time Seen by Provider: 09/16/17 15:15 Source: patient Mode of arrival: ambulatory Limitations: no limitations - History of Present Illness Initial Comments: This patient is a 47-year-old woman with history of pulmonary fibrosis, who presents to be evaluated for shortness of breath that is beyond her baseline. She states this is been going on for about a day. She also has a little bit of productive cough, bringing up some yellow sputum. Patient not aware of having fevers or chills. She states that due to the coughing she is having a little bit of aching of the ribs bilaterally. MD Complaint: shortness of breath Onset/Timin -: days(s) Consistency: constant Improves With: nothing Worsens With: nothing Known History Of: other (Pulmonary fibrosis) Associated Symptoms: cough Treatments Prior to Arrival: oxygen - Related Data Home Oxygen Therapy: Yes Home Oxygen Amount: 2 Liters Home Medications Medication Instructions Recorded Confirmed Cetirizine HCl [Zyrtec] 10 mg PO DAILY PRN 07/16/14 09/16/17 lamoTRIgine [LaMICtal] 200 mg PO DAILY 03/22/16 09/16/17 Bumetanide 4 mg PO QAM 10/18/16 09/16/17 Butalb/APAP/Caff 50-325-40Mg 1 tab PO Q4H PRN 10/18/16 09/16/17 [Fioricet 50-325-40] Ondansetron HCl [Zofran] 4 mg PO BID PRN 10/18/16 09/16/17 Mirtazapine [Remeron] 45 mg PO HS 04/10/17 09/16/17 Promethazine/Dextromethorphan 5 ml PO Q6HR PRN 04/26/17 09/16/17 [Promethazine-Dm Syrup] ALPRAZolam [Xanax] 0.5 mg PO DAILY PRN 06/06/17 09/16/17 Acetaminophen with Codeine 1 tab PO QID PRN 06/06/17 09/16/17 [Tylenol w/codeine #4] Bumetanide [BUMEX] 2 mg PO DAILY@1200 09/16/17 09/16/17 Meclizine HCl 25 mg PO TID PRN 09/16/17 09/16/17 Metolazone [Zaroxolyn] 5 mg PO DAILY 09/16/17 09/16/17 Nystatin 100,000 Unit/gm Powd 1 applic TOPICAL BID PRN 09/16/17 09/16/17 [Mycostatin Powder] Pregabalin [Lyrica] 150 mg PO BID 09/16/17 09/16/17 Warfarin Sodium [Jantoven] 10 mg PO DAILY 09/16/17 09/16/17 busPIRone HCL 15 mg PO TID 09/16/17 09/16/17 busPIRone HCL [Buspar] 30 mg PO BID 09/16/17 09/16/17 traMADol HCL [Ultram] 50 mg PO Q6HR PRN 09/16/17 09/16/17 Previous Rx's Medication Instructions Recorded FLUoxetine HCL [PROzac] 20 mg PO DAILY #30 capsule 08/20/15 Metoprolol Tartrate [Lopressor] 50 mg PO BID #60 tab 08/20/15 Azithromycin [Zithromax Z-pack] 250 mg PO DIRECTED #6 tab 09/16/17 Allergies Allergy/AdvReac Type Severity Reaction Status Date / Time ketorolac tromethamine Allergy Severe Anaphylaxis Verified 09/16/17 15:38 [From Toradol] Opioids - Morphine Analogues Allergy Mild Itching Verified 09/16/17 15:38 Iodinated Contrast- Oral and Allergy Unknown Verified 09/16/17 15:38 IV Dye rivaroxaban [From Xarelto] Allergy Rash/Hives Verified 09/16/17 15:38 sumatriptan [From Imitrex] Allergy Anaphylaxis Verified 09/16/17 15:38 sumatriptan succinate Allergy Anaphylaxis Verified 09/16/17 15:38 [From Imitrex] morphine AdvReac Severe Itching Verified 09/16/17 15:38 iodine AdvReac Intermediate Itching Verified 09/16/17 15:38 tramadol AdvReac Anaphylaxis Verified 09/16/17 15:38 vancomycin AdvReac Itching Verified 09/16/17 15:38 Rich wipes AdvReac Severe Rash/Hives Uncoded 09/16/17 15:30 Review of Systems ROS Statement: Those systems with pertinent positive or pertinent negative responses have been documented in the HPI. ROS Other: All systems not noted in ROS Statement are negative. Constitutional: Denies: fever, chills, weakness Respiratory: Reports: as per HPI, cough, dyspnea. Denies: wheezes, hemoptysis Cardiovascular: Reports: as per HPI, chest pain. Denies: palpitations, dyspnea on exertion, orthopnea, edema, syncope Gastrointestinal: Denies: abdominal pain, vomiting, diarrhea Genitourinary: Denies: dysuria, hematuria Musculoskeletal: Denies: back pain Skin: Denies: rash Neurological: Denies: headache, weakness, numbness Past Medical History Past Medical History: Blood Disorder, Heart Failure, COPD, Deep Vein Thrombosis (DVT), Hyperlipidemia, Hypertension, Myocardial Infarction (ID), Musculoskeletal Disorder, Pneumonia, Pulmonary Embolus (PE) Additional Past Medical History / Comment(s): PE 2012; Sarcoidosis diagnosed in 2015 following a bronchoscopy and lung biopsy done at [facility] and she was started on predniosone and she took the therapy for almost 1 year, polycythemia, overweight, bilateral PE (2011, 2015), bilateral DVTs, fibromyalgia, bipolar disorder, degenerative disk disorder, coronary artery disease along with previous history of a ID and ventilator dependent respiratory failure with MRSA pneumonia for which the patient was hospitalized [facility] in 2012. Viral meningitis in October 2014. Last Myocardial Infarction Date:: February 15, 2013 History of Any Multi-Drug Resistant Organisms: MRSA Date of last positivie culture/infection: 04/13/17 MDRO Source:: BRONCH Past Surgical History: Section, Cholecystectomy, Heart Catheterization , Hernia Repair, Orthopedic Surgery Additional Past Surgical History / Comment(s): Lt ankle surgery,BRONCH Past Anesthesia/Blood Transfusion Reactions: Motion Sickness, Postoperative Nausea & Vomiting (PONV) Additional Past Anesthesia/Blood Transfusion Reaction / Comment(s): pt stated that last April she coded due to anesthetic Past Psychological History: Anxiety, Bipolar, Depression, Panic Disorder Smoking Status: Current every day smoker Past Alcohol Use History: None Reported Past Drug Use History: None Reported - Past Family History Father Family Medical History: Blood Disorder, Congestive Heart Failure (CHF), CVA/TIA , Deep Vein Thrombosis (DVT), Myocardial Infarction (ID) Additional Family Medical History / Comment(s): polycythemia Mother Family Medical History: Congestive Heart Failure (CHF), Diabetes Mellitus, Deep Vein Thrombosis (DVT), Myocardial Infarction (ID), Musculoskeletal Disorder Additional Family Medical History / Comment(s): DDD Sister(s) Family Medical History: No Reported History Brother(s) Family Medical History: No Reported History Son(s) Family Medical History: No Reported History Daughter(s) Family Medical History: No Reported History General Exam Limitations: no limitations General appearance: alert, in no apparent distress Head exam: Present: atraumatic, normocephalic Eye exam: Present: normal appearance. Absent: scleral icterus, conjunctival injection ENT exam: Present: normal oropharynx Neck exam: Present: normal inspection Respiratory exam: Present: wheezes, chest wall tenderness. Absent: respiratory distress, rales, rhonchi, stridor, accessory muscle use, decreased breath sounds , prolonged expiratory Cardiovascular Exam: Present: regular rate, normal rhythm, normal heart sounds. Absent: systolic murmur, diastolic murmur, rubs, gallop GI/Abdominal exam: Present: soft. Absent: distended, tenderness, guarding, rebound, mass Extremities exam: Present: normal inspection, normal capillary refill. Absent: pedal edema, calf tenderness Back exam: Present: normal inspection. Absent: CVA tenderness (R), CVA tenderness (L) Neurological exam: Present: alert Skin exam: Present: warm, dry, intact, normal color. Absent: rash Course Vital Signs 09/16/17 09/16/17 09/16/17 15:11 15:12 16:31 Temperature 97.8 F Pulse Rate 74 71 Respiratory 16 22 16 Rate Blood Pressure 121/57 99/60 O2 Sat by Pulse 90 L 95 Oximetry 09/16/17 09/16/17 09/16/17 16:52 17:05 17:50 Temperature 98.0 F Pulse Rate 69 71 77 Respiratory 16 Rate Blood Pressure 113/68 O2 Sat by Pulse 97 Oximetry 09/16/17 18:24 Temperature 98.1 F Pulse Rate 74 Respiratory 16 Rate Blood Pressure 120/70 O2 Sat by Pulse 96 Oximetry Medical Decision Making - Medical Decision Making This patient is a 47-year-old woman who presents with shortness of breath and some mild chest pain. Patient is found to have an infiltrate. We discussed this finding and she would rather try outpatient treatment first, returning if there is no successful treatment or if there is any worsening. Also found to have hyponatremia, started on potassium here and we discussed dietary sources which she would rather try at this point then starting a supplement. She will follow-up to have this rechecked. We did discuss appropriate further care and follow-up as well as return parameters - Lab Data Result diagrams: 09/16/17 15:20 09/16/17 15:20 Lab Results 09/16/17 09/16/17 09/16/17 Range/Units 15:20 15:20 15:20 WBC (3.8-10.6) k/uL RBC (3.80-5.40) m/uL Hgb (11.4-16.0) gm/dL Hct (34.0-46.0) % MCV (80.0-100.0) fL MCH (25.0-35.0) pg MCHC (31.0-37.0) g/dL RDW (11.5-15.5) % Plt Count (150-450) k/uL Neutrophils % % Lymphocytes % % Monocytes % % Eosinophils % % Basophils % % Neutrophils # (1.3-7.7) k/uL Lymphocytes # (1.0-4.8) k/uL Monocytes # (0-1.0) k/uL Eosinophils # (0-0.7) k/uL Basophils # (0-0.2) k/uL PT (9.0-12.0) sec INR (<1.2) APTT (22.0-30.0) sec D-Dimer (<0.60) mg/L FEU VBG pH 7.52 H (7.31-7.41) VBG pCO2 35 L (37-51) mmHg VBG HCO3 28 (24-28) mmol/L Sodium 139 (137-145) mmol/L Potassium 2.9 L* (3.5-5.1) mmol/L Chloride 102 (98-107) mmol/L Carbon Dioxide 27 (22-30) mmol/L Anion Gap 10 mmol/L BUN 9 (7-17) mg/dL Creatinine 0.60 (0.52-1.04) mg/dL Est GFR (CKD-EPI)AfAm >90 (>60 ml/min/1.73 sqM) Est GFR (CKD-EPI)NonAf >90 (>60 ml/min/1.73 sqM) Glucose 108 H (74-99) mg/dL Plasma Lactic Acid Chuck (0.7-2.0) mmol/L Calcium 8.7 (8.4-10.2) mg/dL Magnesium 1.7 (1.6-2.3) mg/dL Total Bilirubin 0.6 (0.2-1.3) mg/dL AST 48 H (14-36) U/L ALT 52 (9-52) U/L Alkaline Phosphatase 81 (38-126) U/L Ammonia (<30) umol/L Total Creatine Kinase 45 (30-135) U/L CK-MB (CK-2) <0.2 (0.0-2.4) ng/mL CK-MB (CK-2) Rel Index Troponin I <0.012 (0.000-0.034) ng/mL Total Protein 6.8 (6.3-8.2) g/dL Albumin 3.8 (3.5-5.0) g/dL Urine Color Urine Appearance (Clear) Urine pH (5.0-8.0) Ur Specific [place] (1.001-1.035) Urine Protein (Negative) Urine Glucose (UA) (Negative) Urine Ketones (Negative) Urine Blood (Negative) Urine Nitrite (Negative) Urine Bilirubin (Negative) Urine Urobilinogen (<2.0) mg/dL Ur Leukocyte Esterase (Negative) 09/16/17 09/16/17 09/16/17 Range/Units 15:20 15:20 15:20 WBC 9.0 (3.8-10.6) k/uL RBC 5.11 (3.80-5.40) m/uL Hgb 15.9 (11.4-16.0) gm/dL Hct 44.5 (34.0-46.0) % MCV 87.2 D (80.0-100.0) fL MCH 31.1 (25.0-35.0) pg MCHC 35.7 (31.0-37.0) g/dL RDW 13.8 (11.5-15.5) % Plt Count 271 (150-450) k/uL Neutrophils % 56 % Lymphocytes % 32 % Monocytes % 6 % Eosinophils % 3 % Basophils % 1 % Neutrophils # 5.0 (1.3-7.7) k/uL Lymphocytes # 2.9 (1.0-4.8) k/uL Monocytes # 0.6 (0-1.0) k/uL Eosinophils # 0.3 (0-0.7) k/uL Basophils # 0.1 (0-0.2) k/uL PT 14.1 H (9.0-12.0) sec INR 1.5 H (<1.2) APTT 27.7 (22.0-30.0) sec D-Dimer (<0.60) mg/L FEU VBG pH (7.31-7.41) VBG pCO2 (37-51) mmHg VBG HCO3 (24-28) mmol/L Sodium (137-145) mmol/L Potassium (3.5-5.1) mmol/L Chloride (98-107) mmol/L Carbon Dioxide (22-30) mmol/L Anion Gap mmol/L BUN (7-17) mg/dL Creatinine (0.52-1.04) mg/dL Est GFR (CKD-EPI)AfAm (>60 ml/min/1.73 sqM) Est GFR (CKD-EPI)NonAf (>60 ml/min/1.73 sqM) Glucose (74-99) mg/dL Plasma Lactic Acid Chuck 1.3 (0.7-2.0) mmol/L Calcium (8.4-10.2) mg/dL Magnesium (1.6-2.3) mg/dL Total Bilirubin (0.2-1.3) mg/dL AST (14-36) U/L ALT (9-52) U/L Alkaline Phosphatase (38-126) U/L Ammonia 36 H (<30) umol/L Total Creatine Kinase (30-135) U/L CK-MB (CK-2) (0.0-2.4) ng/mL CK-MB (CK-2) Rel Index Troponin I (0.000-0.034) ng/mL Total Protein (6.3-8.2) g/dL Albumin (3.5-5.0) g/dL Urine Color Urine Appearance (Clear) Urine pH (5.0-8.0) Ur Specific [place] (1.001-1.035) Urine Protein (Negative) Urine Glucose (UA) (Negative) Urine Ketones (Negative) Urine Blood (Negative) Urine Nitrite (Negative) Urine Bilirubin (Negative) Urine Urobilinogen (<2.0) mg/dL Ur Leukocyte Esterase (Negative) 09/16/17 09/16/17 Range/Units 15:20 15:20 WBC (3.8-10.6) k/uL RBC (3.80-5.40) m/uL Hgb (11.4-16.0) gm/dL Hct (34.0-46.0) % MCV (80.0-100.0) fL MCH (25.0-35.0) pg MCHC (31.0-37.0) g/dL RDW (11.5-15.5) % Plt Count (150-450) k/uL Neutrophils % % Lymphocytes % % Monocytes % % Eosinophils % % Basophils % % Neutrophils # (1.3-7.7) k/uL Lymphocytes # (1.0-4.8) k/uL Monocytes # (0-1.0) k/uL Eosinophils # (0-0.7) k/uL Basophils # (0-0.2) k/uL PT (9.0-12.0) sec INR (<1.2) APTT (22.0-30.0) sec D-Dimer 0.58 (<0.60) mg/L FEU VBG pH (7.31-7.41) VBG pCO2 (37-51) mmHg VBG HCO3 (24-28) mmol/L Sodium (137-145) mmol/L Potassium (3.5-5.1) mmol/L Chloride (98-107) mmol/L Carbon Dioxide (22-30) mmol/L Anion Gap mmol/L BUN (7-17) mg/dL Creatinine (0.52-1.04) mg/dL Est GFR (CKD-EPI)AfAm (>60 ml/min/1.73 sqM) Est GFR (CKD-EPI)NonAf (>60 ml/min/1.73 sqM) Glucose (74-99) mg/dL Plasma Lactic Acid Chuck (0.7-2.0) mmol/L Calcium (8.4-10.2) mg/dL Magnesium (1.6-2.3) mg/dL Total Bilirubin (0.2-1.3) mg/dL AST (14-36) U/L ALT (9-52) U/L Alkaline Phosphatase (38-126) U/L Ammonia (<30) umol/L Total Creatine Kinase (30-135) U/L CK-MB (CK-2) (0.0-2.4) ng/mL CK-MB (CK-2) Rel Index Troponin I (0.000-0.034) ng/mL Total Protein (6.3-8.2) g/dL Albumin (3.5-5.0) g/dL Urine Color Colorless Urine Appearance Clear (Clear) Urine pH 7.5 (5.0-8.0) Ur Specific [place] 1.005 (1.001-1.035) Urine Protein Negative (Negative) Urine Glucose (UA) Negative (Negative) Urine Ketones Negative (Negative) Urine Blood Negative (Negative) Urine Nitrite Negative (Negative) Urine Bilirubin Negative (Negative) Urine Urobilinogen <2.0 (<2.0) mg/dL Ur Leukocyte Esterase Negative (Negative) - EKG Data -: EKG Interpreted by [place] EKG shows normal: sinus rhythm, axis (Normal), intervals (Normal), QRS complexes (Normal), ST-T waves (Normal) Rate: normal (Rate 72 bpm) Interpretation: normal EKG Disposition Clinical Impression: Pneumonia Disposition: HOME SELF-CARE Condition: Good Instructions: Pneumonia (ED) Prescriptions: Azithromycin [Zithromax Z-pack] 250 mg PO DIRECTED #6 tab Is patient prescribed a controlled substance at d/c from ED?: No Referrals: Liz Koch MD [Primary Care Provider] - 1-2 days
[2017-09-16] MEDS ORDERED: AZITHROMYCIN 500 MG TAB PO STA (17:28)
[2017-09-16] MEDS ORDERED: cefTRIAXone IN SWFI 1,000 MG/10 ML SYRINGE IVP STA (17:30)
[2017-09-16] MEDS ORDERED: Acetaminophen-Codeine 300-30mg TAB PO STA (17:33)
[2017-09-16 18:26] VITALS: BP 120/70; PULSE 74; TEMP 98.1
== END 2017-09-16 18:24 | disposition home or self-care (01) ==
LOC: EC 15:03
DX: J18.9 Pneumonia, unspecified organism (principal); E87.1 Hypo-osmolality and hyponatremia; I11.0 Hypertensive heart disease with heart failure; I50.9 Heart failure, unspecified; I25.2 Old myocardial infarction; F41.9 Anxiety disorder, unspecified; F31.9 Bipolar disorder, unspecified; F17.200 Nicotine dependence, unspecified, uncomplicated; Z86.711 Personal history of pulmonary embolism; Z86.718 Personal history of other venous thrombosis and embolism; Z86.14 Personal history of Methicillin resistant Staphylococcus aureus infection; Z90.49 Acquired absence of other specified parts of digestive tract; Z98.890 Other specified postprocedural states; Z79.01 Long term (current) use of anticoagulants; Z79.899 Other long term (current) drug therapy; Z88.1 Allergy status to other antibiotic agents; Z88.5 Allergy status to narcotic agent; Z88.6 Allergy status to analgesic agent; Z88.8 Allergy status to other drugs, medicaments and biological substances; Z91.041 Radiographic dye allergy status; Z91.048 Other nonmedicinal substance allergy status
CPT/HCPCS: 36415; 94640; 93005; 85379; 80053; 82140; 82550; 82553; 82803; 83605; 83735; 84484; 85025; 85610; 85730; 81003; 71045; 99285; 96374; J0696; J7512

== ENCOUNTER 2017-10-09 19:20 | Observation (INO) | payer OTHER ==
[2017-10-09] MEDS ORDERED: SODIUM CHLORIDE 0.9% 1,000 ML IV STA (19:39)
[2017-10-09 19:50] LABS: Basophils % (A) 0 %; Eosinophils # (A) 0.3 k/uL (0-0.7); Eosinophils % (A) 2 %; HCT 42.8 % (34.0-46.0); HGB 14.9 gm/dL (11.4-16.0); Lymphocytes # (A) 1.6 k/uL (1.0-4.8); Lymphocytes % (A) 13 %; MCH 30.8 pg (25.0-35.0); MCHC 34.9 g/dL (31.0-37.0); MCV 88.4 fL (80.0-100.0); Monocytes # (A) 0.7 k/uL (0-1.0); Monocytes % (A) 6 %; Neutrophils # (A) 9.2 k/uL (1.3-7.7); Neutrophils % (A) 77 %; Platelet Count 248 k/uL (150-450); RBC 4.84 m/uL (3.80-5.40); RDW 13.7 % (11.5-15.5)
[2017-10-09] MEDS ORDERED: HALOPERIDOL LACTATE 5 MG/ML 1 ML VIAL IVP PRN (19:54)
[2017-10-09 20:00] LABS: ALT 41 U/L (9-52); AST 43 U/L (14-36); Albumin 3.7 g/dL (3.5-5.0); Alkaline Phosphatase 81 U/L (38-126); Anion Gap 12 mmol/L; Blood Urea Nitrogen 13 mg/dL (7-17); Calcium 8.1 mg/dL (8.4-10.2); Carbon Dioxide 25 mmol/L (22-30); Chloride 104 mmol/L (98-107); Glucose 102 mg/dL (74-99); Potassium 3.3 mmol/L (3.5-5.1); Sodium 141 mmol/L (137-145); Total Bilirubin 0.4 mg/dL (0.2-1.3); Total Protein 6.6 g/dL (6.3-8.2)
[2017-10-09 20:14] LABS: Appearance,Urine Clear (Clear); Bilirubin,Urine Negative (Negative); Blood,Urine Negative (Negative); Color,Urine Yellow; Glucose,Urine (UA) Negative (Negative); Ketones,Urine Negative (Negative); Leukocyte Esterase,Urine Negative (Negative); Nitrite,Urine Negative (Negative); Protein,Urine Trace (Negative); Specific Gravity,Urine 1.021 (1.001-1.035)
[2017-10-09 20:17] LABS: INR 2.1 (<1.2); Prothrombin Time 18.7 sec (9.0-12.0)
[2017-10-09 20:23] LABS: Amphetamine Screen,Urine Not Detected (NotDetected); Barbiturate Screen,Urine Not Detected (NotDetected); Benzodiazepines Screen,Urine Not Detected (NotDetected); Cocaine Screen,Urine Not Detected (NotDetected); Methadone Screen, Urine Not Detected (NotDetected); Opiate Screen,Urine Not Detected (NotDetected); Oxycodone Screen, Urine Not Detected (NotDetected); Phencyclidine Screen,Urine Not Detected (NotDetected); Tricyclic Antidepressant,Urine Not Detected (NotDetected); Urn Cannabinoid Scrn Not Detected (NotDetected)
[2017-10-09 20:58] LABS: VBG PH 7.48 (7.31-7.41)
--- NOTE | 2017-10-09 21:24 | XR ---
EXAMINATION: XR chest 2V DATE AND TIME: 10/09/2017 8:24 PM ORDERING PROVIDER: Ezekiel Mcallister DO CLINICAL INDICATION: Pain and dyspnea TECHNIQUE: PA and lateral COMPARISON: None. DESCRIPTION: The soft tissues are prominent. Notwithstanding this finding, there appear to be mild silhouetting of the pulmonary vasculature by a fine reticular pattern of increased attenuation - suggesting mild int erstitial phase pulmonary edema if clinically supported. The lungs are clear. The pleural spaces are negative. The cardiac silhouette is not enlarged. The mediastinal and pleural silhouettes are unremarkable. The skeletal structures are intact without focal findings. IMPRESSION: Evidence suggesting mild interstitial phase pulmonary edema.
[2017-10-09] MEDS ORDERED: NALOXONE 0.4 MG/ML 1 ML VIAL IV PRN (22:41)
--- NOTE | 2017-10-09 22:50 | ED ---
General Adult HPI - General Chief complaint: Dizziness Stated complaint: dizziness Source: patient, family, EMS Mode of arrival: EMS Limitations: no limitations - History of Present Illness Initial comments: Dictation was produced using [employer] dictation software. please excuse any grammatical, word or spelling errors. Chief Complaint: 47-year-old female past medical history of polycythemia, heart failure, COPD, pulmonary emboli, pneumonia, sarcoidosis presents with total body cramping and pleuritic chest pain. History of Present Illness: A 47-year-old female presents with her for worsening symptoms today. Patient states her main complaint is total body cramping especially in her legs and right-sided pleuritic chest pain. Patient has had the symptoms in the past. 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 Patient is a history of pulmonary embolus and on warfarin therapy. Patient has been compliant with all her medications. Patient takes opiates however ran out of her knuckles recently. Patient unable to provide a stress secondary to respiratory distress. reports that she has his episodes however not this severe. The ROS documented in this emergency department record has been reviewed and confirmed by me. Those systems with pertinent positive or negative responses have been documented in the HPI. All other systems are other negative and/or noncontributory. - Related Data Home Medications Medication Instructions Recorded Confirmed Cetirizine HCl [Zyrtec] 10 mg PO DAILY PRN 07/16/14 10/09/17 lamoTRIgine [LaMICtal] 200 mg PO DAILY 03/22/16 10/09/17 Bumetanide 4 mg PO QAM 10/18/16 10/09/17 Butalb/APAP/Caff 50-325-40Mg 1 tab PO Q4H PRN 10/18/16 10/09/17 [Fioricet 50-325-40] Ondansetron HCl [Zofran] 4 mg PO BID PRN 10/18/16 10/09/17 Mirtazapine [Remeron] 45 mg PO HS 04/10/17 10/09/17 ALPRAZolam [Xanax] 0.5 mg PO DAILY PRN 06/06/17 10/09/17 Bumetanide [BUMEX] 2 mg PO DAILY@1200 09/16/17 10/09/17 Nystatin 100,000 Unit/gm Powd 1 applic TOPICAL BID PRN 09/16/17 10/09/17 [Mycostatin Powder] Pregabalin [Lyrica] 150 mg PO BID 09/16/17 10/09/17 Warfarin Sodium [Jantoven] 10 mg PO DAILY 09/16/17 10/09/17 busPIRone HCL 15 mg PO TID 09/16/17 10/09/17 busPIRone HCL [Buspar] 30 mg PO BID 09/16/17 10/09/17 traMADol HCL [Ultram] 50 mg PO Q6HR PRN 09/16/17 10/09/17 Baclofen [Lioresal] 20 mg PO Q8H PRN 10/09/17 10/09/17 Previous Rx's Medication Instructions Recorded FLUoxetine HCL [PROzac] 20 mg PO DAILY #30 capsule 08/20/15 Metoprolol Tartrate [Lopressor] 50 mg PO BID #60 tab 08/20/15 Allergies Allergy/AdvReac Type Severity Reaction Status Date / Time ketorolac tromethamine Allergy Severe Anaphylaxis Verified 10/09/17 20:26 [From Toradol] Opioids - Morphine Analogues Allergy Mild Itching Verified 10/09/17 20:26 Iodinated Contrast- Oral and Allergy Unknown Verified 10/09/17 20:26 IV Dye rivaroxaban [From Xarelto] Allergy Rash/Hives Verified 10/09/17 20:26 sumatriptan [From Imitrex] Allergy Anaphylaxis Verified 10/09/17 20:26 sumatriptan succinate Allergy Anaphylaxis Verified 10/09/17 20:26 [From Imitrex] morphine AdvReac Severe Itching Verified 10/09/17 20:26 iodine AdvReac Intermediate Itching Verified 10/09/17 20:26 tramadol AdvReac Anaphylaxis Verified 10/09/17 20:26 vancomycin AdvReac Itching Verified 10/09/17 20:26 Rich wipes AdvReac Severe Rash/Hives Uncoded 09/16/17 15:30 Review of Systems ROS Statement: Those systems with pertinent positive or pertinent negative responses have been documented in the HPI. ROS Other: All systems not noted in ROS Statement are negative. Past Medical History Past Medical History: Blood Disorder, Heart Failure, COPD, Deep Vein Thrombosis (DVT), Hyperlipidemia, Hypertension, Myocardial Infarction (GA), Musculoskeletal Disorder, Pneumonia, Pulmonary Embolus (PE) Additional Past Medical History / Comment(s): PE 2012; Sarcoidosis diagnosed in 2015 following a bronchoscopy and lung biopsy done at [facility] and she was started on predniosone and she took the therapy for almost 1 year, polycythemia, overweight, bilateral PE (2011, 2015), bilateral DVTs, fibromyalgia, bipolar disorder, degenerative disk disorder, coronary artery disease along with previous history of a GA and ventilator dependent respiratory failure with MRSA pneumonia for which the patient was hospitalized [facility] in 2012. Viral meningitis in October 2014. Last Myocardial Infarction Date:: February 15, 2013 History of Any Multi-Drug Resistant Organisms: MRSA Date of last positivie culture/infection: 04/13/17 MDRO Source:: BRONCH Past Surgical History: Section, Cholecystectomy, Heart Catheterization , Hernia Repair, Orthopedic Surgery Additional Past Surgical History / Comment(s): Lt ankle surgery,BRONCH Past Anesthesia/Blood Transfusion Reactions: Motion Sickness, Postoperative Nausea & Vomiting (PONV) Additional Past Anesthesia/Blood Transfusion Reaction / Comment(s): pt stated that last April she coded due to anesthetic Past Psychological History: Anxiety, Bipolar, Depression, Panic Disorder Smoking Status: Current every day smoker Past Alcohol Use History: None Reported Past Drug Use History: None Reported - Past Family History Father Family Medical History: Blood Disorder, Congestive Heart Failure (CHF), CVA/TIA , Deep Vein Thrombosis (DVT), Myocardial Infarction (GA) Additional Family Medical History / Comment(s): polycythemia Mother Family Medical History: Congestive Heart Failure (CHF), Diabetes Mellitus, Deep Vein Thrombosis (DVT), Myocardial Infarction (GA), Musculoskeletal Disorder Additional Family Medical History / Comment(s): DDD Sister(s) Family Medical History: No Reported History Brother(s) Family Medical History: No Reported History Son(s) Family Medical History: No Reported History Daughter(s) Family Medical History: No Reported History General Exam - General Exam Comments Initial Comments: PHYSICAL EXAM: General Impression: Alert and oriented x3, tachypnea HEENT: Normocephalic atraumatic, extra-ocular movements intact, pupils equal and reactive to light bilaterally, dry mucous members Cardiovascular: Heart regular rate and rhythm, S1&S2 audible, no murmurs, rubs or gallops Chest: Lungs clear to auscultation bilaterally, no rhonchi, no wheeze, no rales Abdomen: Obese, abdomen soft Musculoskeletal: Pulses present and equal in all extremities, no peripheral edema Motor: Power 5/5 bilaterally, no focal deficits noted Neurological: CN II-XII grossly intact, no focal motor or sensory deficits noted Skin: Intact with no visualized rashes Psych: Normal affect and mood Limitations: no limitations Course Vital Signs 10/09/17 10/09/17 10/09/17 19:23 20:48 21:05 Temperature 98.3 F Pulse Rate 69 75 Respiratory 22 20 26 H Rate Blood Pressure 143/92 117/67 O2 Sat by Pulse 96 98 Oximetry 10/09/17 10/09/17 21:28 22:19 Temperature Pulse Rate 75 74 Respiratory 20 20 Rate Blood Pressure 114/65 134/80 O2 Sat by Pulse 97 98 Oximetry Medical Decision Making - Medical Decision Making ED course: 47-year-old female with extensive pulmonary history presents with 30 chest pain and total body pain. Vital signs upon arrival shows tachypnea in the 20s. Rest of labs unremarkable. Patient was seen by pulmonology in May. Consultation by Pulmonology reviewed showing that patient has history of thoracic chest wall pain. Patient also has a history of COPD. She is not wheezy on my evaluation. Patient lives that her symptoms are secondary to sarcoidosis. She is on Coumadin therapy for which she is compliant with medications. Patient was very anxious and uncooperative with physical exam initially. She was given some Haldol with improvement of symptoms so that she may be evaluated. Leukocytosis of 12.0 likely secondary to stress. Coag panel shows INR of 2.1. Venous blood gas shows alkalosis likely secondary to respiratory alkalosis. Rest labs unremarkable or within acceptable limits urinalysis is negative. Urine is negative. Rapid urine drug screen is negative. At this point there is no clear etiology of patient's symptoms per she is given intravenous fluids. Our plan is to admit patient with pulmonology on consult. Patient and family member are agreeable to plan. EKG Interpretation: A 12 lead EKG was obtained. It was interpreted by myself and attending physician. There is a P wave before every QRS complex. Rate is 72. Rhythm is normal sinus rhythm, FL interval 154, QRS 72, QTc 460. QT is not prolonged. No ST segment depression or elevation.. Overall, this EKG is unremarkable - Lab Data Result diagrams: 10/09/17 19:27 10/09/17 19:27 Lab Results 10/09/17 10/09/17 10/09/17 Range/Units 19:27 19:27 20:00 WBC 12.0 H (3.8-10.6) k/uL RBC 4.84 (3.80-5.40) m/uL Hgb 14.9 (11.4-16.0) gm/dL Hct 42.8 (34.0-46.0) % MCV 88.4 (80.0-100.0) fL MCH 30.8 (25.0-35.0) pg MCHC 34.9 (31.0-37.0) g/dL RDW 13.7 (11.5-15.5) % Plt Count 248 (150-450) k/uL Neutrophils % 77 % Lymphocytes % 13 % Monocytes % 6 % Eosinophils % 2 % Basophils % 0 % Neutrophils # 9.2 H (1.3-7.7) k/uL Lymphocytes # 1.6 (1.0-4.8) k/uL Monocytes # 0.7 (0-1.0) k/uL Eosinophils # 0.3 (0-0.7) k/uL Basophils # 0.0 (0-0.2) k/uL PT (9.0-12.0) sec INR (<1.2) VBG pH (7.31-7.41) VBG pCO2 (37-51) mmHg VBG HCO3 (24-28) mmol/L Sodium 141 (137-145) mmol/L Potassium 3.3 L (3.5-5.1) mmol/L Chloride 104 (98-107) mmol/L Carbon Dioxide 25 (22-30) mmol/L Anion Gap 12 mmol/L BUN 13 (7-17) mg/dL Creatinine 0.72 (0.52-1.04) mg/dL Est GFR (CKD-EPI)AfAm >90 (>60 ml/min/1.73 sqM) Est GFR (CKD-EPI)NonAf >90 (>60 ml/min/1.73 sqM) Glucose 102 H (74-99) mg/dL Calcium 8.1 L (8.4-10.2) mg/dL Total Bilirubin 0.4 (0.2-1.3) mg/dL AST 43 H (14-36) U/L ALT 41 (9-52) U/L Alkaline Phosphatase 81 (38-126) U/L Total Protein 6.6 (6.3-8.2) g/dL Albumin 3.7 (3.5-5.0) g/dL Lipase (23-300) U/L Urine Color Urine Appearance (Clear) Urine pH (5.0-8.0) Ur Specific Bow (1.001-1.035) Urine Protein (Negative) Urine Glucose (UA) (Negative) Urine Ketones (Negative) Urine Blood (Negative) Urine Nitrite (Negative) Urine Bilirubin (Negative) Urine Urobilinogen (<2.0) mg/dL Ur Leukocyte Esterase (Negative) Urine HCG, Qual Not Detected (Not Detectd) Urine Opiates Screen (NotDetected) Ur Oxycodone Screen (NotDetected) Urine Methadone Screen (NotDetected) Ur Propoxyphene Screen (NotDetected) Ur Barbiturates Screen (NotDetected) U Tricyclic Antidepress (NotDetected) Ur Phencyclidine Scrn (NotDetected) Ur Amphetamines Screen (NotDetected) U Methamphetamines Scrn (NotDetected) U Benzodiazepines Scrn (NotDetected) Urine Cocaine Screen (NotDetected) U Marijuana (THC) Screen (NotDetected) 10/09/17 10/09/17 10/09/17 Range/Units 20:00 20:00 20:00 WBC (3.8-10.6) k/uL RBC (3.80-5.40) m/uL Hgb (11.4-16.0) gm/dL Hct (34.0-46.0) % MCV (80.0-100.0) fL MCH (25.0-35.0) pg MCHC (31.0-37.0) g/dL RDW (11.5-15.5) % Plt Count (150-450) k/uL Neutrophils % % Lymphocytes % % Monocytes % % Eosinophils % % Basophils % % Neutrophils # (1.3-7.7) k/uL Lymphocytes # (1.0-4.8) k/uL Monocytes # (0-1.0) k/uL Eosinophils # (0-0.7) k/uL Basophils # (0-0.2) k/uL PT 18.7 H (9.0-12.0) sec INR 2.1 H (<1.2) VBG pH (7.31-7.41) VBG pCO2 (37-51) mmHg VBG HCO3 (24-28) mmol/L Sodium (137-145) mmol/L Potassium (3.5-5.1) mmol/L Chloride (98-107) mmol/L Carbon Dioxide (22-30) mmol/L Anion Gap mmol/L BUN (7-17) mg/dL Creatinine (0.52-1.04) mg/dL Est GFR (CKD-EPI)AfAm (>60 ml/min/1.73 sqM) Est GFR (CKD-EPI)NonAf (>60 ml/min/1.73 sqM) Glucose (74-99) mg/dL Calcium (8.4-10.2) mg/dL Total Bilirubin (0.2-1.3) mg/dL AST (14-36) U/L ALT (9-52) U/L Alkaline Phosphatase (38-126) U/L Total Protein (6.3-8.2) g/dL Albumin (3.5-5.0) g/dL Lipase 135 (23-300) U/L Urine Color Yellow Urine Appearance Clear (Clear) Urine pH 6.0 (5.0-8.0) Ur Specific Bow 1.021 (1.001-1.035) Urine Protein Trace H (Negative) Urine Glucose (UA) Negative (Negative) Urine Ketones Negative (Negative) Urine Blood Negative (Negative) Urine Nitrite Negative (Negative) Urine Bilirubin Negative (Negative) Urine Urobilinogen 2.0 (<2.0) mg/dL Ur Leukocyte Esterase Negative (Negative) Urine HCG, Qual (Not Detectd) Urine Opiates Screen (NotDetected) Ur Oxycodone Screen (NotDetected) Urine Methadone Screen (NotDetected) Ur Propoxyphene Screen (NotDetected) Ur Barbiturates Screen (NotDetected) U Tricyclic Antidepress (NotDetected) Ur Phencyclidine Scrn (NotDetected) Ur Amphetamines Screen (NotDetected) U Methamphetamines Scrn (NotDetected) U Benzodiazepines Scrn (NotDetected) Urine Cocaine Screen (NotDetected) U Marijuana (THC) Screen (NotDetected) 10/09/17 10/09/17 Range/Units 20:00 20:44 WBC (3.8-10.6) k/uL RBC (3.80-5.40) m/uL Hgb (11.4-16.0) gm/dL Hct (34.0-46.0) % MCV (80.0-100.0) fL MCH (25.0-35.0) pg MCHC (31.0-37.0) g/dL RDW (11.5-15.5) % Plt Count (150-450) k/uL Neutrophils % % Lymphocytes % % Monocytes % % Eosinophils % % Basophils % % Neutrophils # (1.3-7.7) k/uL Lymphocytes # (1.0-4.8) k/uL Monocytes # (0-1.0) k/uL Eosinophils # (0-0.7) k/uL Basophils # (0-0.2) k/uL PT (9.0-12.0) sec INR (<1.2) VBG pH 7.48 H (7.31-7.41) VBG pCO2 32 L (37-51) mmHg VBG HCO3 23 L (24-28) mmol/L Sodium (137-145) mmol/L Potassium (3.5-5.1) mmol/L Chloride (98-107) mmol/L Carbon Dioxide (22-30) mmol/L Anion Gap mmol/L BUN (7-17) mg/dL Creatinine (0.52-1.04) mg/dL Est GFR (CKD-EPI)AfAm (>60 ml/min/1.73 sqM) Est GFR (CKD-EPI)NonAf (>60 ml/min/1.73 sqM) Glucose (74-99) mg/dL Calcium (8.4-10.2) mg/dL Total Bilirubin (0.2-1.3) mg/dL AST (14-36) U/L ALT (9-52) U/L Alkaline Phosphatase (38-126) U/L Total Protein (6.3-8.2) g/dL Albumin (3.5-5.0) g/dL Lipase (23-300) U/L Urine Color Urine Appearance (Clear) Urine pH (5.0-8.0) Ur Specific Bow (1.001-1.035) Urine Protein (Negative) Urine Glucose (UA) (Negative) Urine Ketones (Negative) Urine Blood (Negative) Urine Nitrite (Negative) Urine Bilirubin (Negative) Urine Urobilinogen (<2.0) mg/dL Ur Leukocyte Esterase (Negative) Urine HCG, Qual (Not Detectd) Urine Opiates Screen Not Detected (NotDetected) Ur Oxycodone Screen Not Detected (NotDetected) Urine Methadone Screen Not Detected (NotDetected) Ur Propoxyphene Screen Not Detected (NotDetected) Ur Barbiturates Screen Not Detected (NotDetected) U Tricyclic Antidepress Not Detected (NotDetected) Ur Phencyclidine Scrn Not Detected (NotDetected) Ur Amphetamines Screen Not Detected (NotDetected) U Methamphetamines Scrn Not Detected (NotDetected) U Benzodiazepines Scrn Not Detected (NotDetected) Urine Cocaine Screen Not Detected (NotDetected) U Marijuana (THC) Screen Not Detected (NotDetected) Disposition Clinical Impression: Intractable pain Disposition: ADMITTED IP TO THIS [facility] Condition: Fair Referrals: Liz Koch MD [Primary Care Provider] - 1-2 days Decision Time: 22:51
[2017-10-10] MEDS ORDERED: Potassium Replacement Protocol 1 EACH MISC MISCELLANE PRN (04:46)
[2017-10-10] MEDS: POTASSIUM CHLORIDE ER 20 MEQ TAB.ER PO SCH ×2 (05:05→06:12)
[2017-10-10] MEDS ORDERED: traMADol 50 MG TAB PO PRN (05:15)
[2017-10-10 05:17] VITALS: BMI 38.7
[2017-10-10] MEDS ORDERED: HYDROcodone/APAP 5-325MG 1 EACH TAB PO PRN ×2 (05:19→06:42)
[2017-10-10] MEDS: IPRATROPIUM-ALBUTEROL 3 ML NEB INHALATION SCH ×2 (05:22→08:16)
[2017-10-10] MEDS ORDERED: MECLIZINE 25 MG TAB PO PRN (06:41)
--- NOTE | 2017-10-10 06:55 | P.HPIM ---
History of Present Illness H&P Date: 10/10/17 Chief Complaint: Panic attack 47-year-old female with extensive past medical history with sarcoidosis, COPD, venous thromboembolism on Coumadin. Patient presented to the hospital due to diffuse body cramps and dizziness. She reports history of dizziness for which she takes meclizine however yesterday after she took her meclizine for dizziness she threw up she started having panic attack for which she was brought to the ED, and the emergency department she was not cooperating with history taking and exam and seems very agitated, hyperventilating. She reports chronic right pleuritic chest pain that has not changed from baseline, she denies any changes in her breathing she denies any shortness of breath she denies any changes in her coughing. She denies any fevers or chills. She denies any abdominal pain or changes in her bowel movement or urinary habits. She denies any GI bleeding. This morning she is feeling fine she feels back to her baseline. She reports that she takes meclizine for dizziness spells. She said she gets attack where she feels lightheaded without falling or any injuries. She denies any associated heart racing or irregular heartbeat. She denies any associated chest pain or trouble breathing. She said yesterday she threw up the meclizine that she took for which her symptoms are not controlled and she thinks that's when she was acting out. She reports taking Bumex for heart failure which is resulting in swelling of her legs, she also takes potassium at home. She is complaining of whole body cramps mainly in her lower extremities. She was found to have low potassium in the ED which was replaced. She reports recent dog bit 2 days ago by her neighbor Pet when he got in a fight with her dog she received tetanus shot in medical care of that time . Review of Systems Pertinent positives as noted in HPI. All other systems were reviewed and are negative Past Medical History Past Medical History: Blood Disorder, Heart Failure, COPD, Deep Vein Thrombosis (DVT), Hyperlipidemia, Hypertension, Myocardial Infarction (LA), Musculoskeletal Disorder, Pneumonia, Pulmonary Embolus (PE) Additional Past Medical History / Comment(s): PE 2012; Sarcoidosis diagnosed in 2015 following a bronchoscopy and lung biopsy done at [facility] and she was started on predniosone and she took the therapy for almost 1 year, polycythemia, overweight, bilateral PE (2011, 2015), bilateral DVTs, fibromyalgia, bipolar disorder, degenerative disk disorder, coronary artery disease along with previous history of a LA and ventilator dependent respiratory failure with MRSA pneumonia for which the patient was hospitalized [facility] in 2012. Viral meningitis in October 2014. Pulmonary fibrosis Last Myocardial Infarction Date:: February 15, 2013 History of Any Multi-Drug Resistant Organisms: MRSA Date of last positivie culture/infection: 04/13/17 MDRO Source:: [facility] Past Surgical History: Section, Cholecystectomy, Heart Catheterization , Hernia Repair, Orthopedic Surgery Additional Past Surgical History / Comment(s): Lt ankle surgery,BR[facility] Past Anesthesia/Blood Transfusion Reactions: Motion Sickness, Postoperative Nausea & Vomiting (PONV) Additional Past Anesthesia/Blood Transfusion Reaction / Comment(s): pt stated that last April she coded due to anesthetic Past Psychological History: Anxiety, Bipolar, Depression, Panic Disorder Additional Psychological History / Comment(s): Lives with her boyfriend. Regretfully she is an ongoing tobacco smoker despite her progressive and worsening pulmonary disease. Does not relate to significant alcohol use no recreational drug use. Currently not working. No experience. No recent travel. No animal exposures. Did leave the hospital AMA in March 2017. Difficulties with ongoing medical noncompliance Smoking Status: Current every day smoker Past Alcohol Use History: None Reported Additional Past Alcohol Use History / Comment(s): patient lives with her significant other. She states she smokes about 1 pack a day. She denies any alcohol use or recreational drug use. Patient is currently not working. No service. No recent travel. No animal exposures. She did leave the hospital AMA in March 2017. Difficulties with ongoing medical noncompliance. Past Drug Use History: None Reported - Past Family History Father Family Medical History: Blood Disorder, Congestive Heart Failure (CHF), CVA/TIA , Deep Vein Thrombosis (DVT), Myocardial Infarction (LA) Additional Family Medical History / Comment(s): polycythemia Mother Family Medical History: Congestive Heart Failure (CHF), Diabetes Mellitus, Deep Vein Thrombosis (DVT), Myocardial Infarction (LA), Musculoskeletal Disorder Additional Family Medical History / Comment(s): DDD Sister(s) Family Medical History: No Reported History Brother(s) Family Medical History: No Reported History Son(s) Family Medical History: No Reported History Daughter(s) Family Medical History: No Reported History Medications and Allergies Home Medications Medication Instructions Recorded Confirmed Type Cetirizine HCl [Zyrtec] 10 mg PO DAILY PRN 07/16/14 10/09/17 History FLUoxetine HCL [PROzac] 20 mg PO DAILY #30 capsule 08/20/15 10/09/17 Rx Metoprolol Tartrate [Lopressor] 50 mg PO BID #60 tab 08/20/15 10/09/17 Rx lamoTRIgine [LaMICtal] 200 mg PO DAILY 03/22/16 10/09/17 History Bumetanide 4 mg PO QAM 10/18/16 10/09/17 History Butalb/APAP/Caff 50-325-40Mg 1 tab PO Q4H PRN 10/18/16 10/09/17 History [Fioricet 50-325-40] Ondansetron HCl [Zofran] 4 mg PO BID PRN 10/18/16 10/09/17 History Mirtazapine [Remeron] 45 mg PO HS 04/10/17 10/09/17 History ALPRAZolam [Xanax] 0.5 mg PO DAILY PRN 06/06/17 10/09/17 History Bumetanide [BUMEX] 2 mg PO DAILY@1200 09/16/17 10/09/17 History Nystatin 100,000 Unit/gm Powd 1 applic TOPICAL BID PRN 09/16/17 10/09/17 History [Mycostatin Powder] Pregabalin [Lyrica] 150 mg PO BID 09/16/17 10/09/17 History Warfarin Sodium [Jantoven] 10 mg PO DAILY 09/16/17 10/09/17 History busPIRone HCL 15 mg PO TID 09/16/17 10/09/17 History busPIRone HCL [Buspar] 30 mg PO BID 09/16/17 10/09/17 History traMADol HCL [Ultram] 50 mg PO Q6HR PRN 09/16/17 10/09/17 History Baclofen [Lioresal] 20 mg PO Q8H PRN 10/09/17 10/09/17 History Allergies Allergy/AdvReac Type Severity Reaction Status Date / Time ketorolac tromethamine Allergy Severe Anaphylaxis Verified 10/09/17 20:26 [From Toradol] Opioids - Morphine Analogues Allergy Mild Itching Verified 10/09/17 20:26 Iodinated Contrast- Oral and Allergy Unknown Verified 10/09/17 20:26 IV Dye rivaroxaban [From Xarelto] Allergy Rash/Hives Verified 10/09/17 20:26 sumatriptan [From Imitrex] Allergy Anaphylaxis Verified 10/09/17 20:26 sumatriptan succinate Allergy Anaphylaxis Verified 10/09/17 20:26 [From Imitrex] morphine AdvReac Severe Itching Verified 10/09/17 20:26 iodine AdvReac Intermediate Itching Verified 10/09/17 20:26 tramadol AdvReac Anaphylaxis Verified 10/09/17 20:26 vancomycin AdvReac Itching Verified 10/09/17 20:26 Rich wipes AdvReac Severe Rash/Hives Uncoded 09/16/17 15:30 Physical Exam Vitals: Vital Signs Temp Pulse Resp BP Pulse Ox 10/09/17 23:01 99.3 F 77 20 120/68 99 10/09/17 22:52 77 18 135/73 99 10/09/17 22:19 74 20 134/80 98 10/09/17 21:28 75 20 114/65 97 10/09/17 21:05 26 H 10/09/17 20:48 75 20 117/67 98 10/09/17 19:23 98.3 F 69 22 143/92 96 Intake and Output 10/09/17 10/09/17 10/10/17 14:59 22:59 06:59 Other: Weight 108.862 kg Constitutional: No acute distress, conversant, pleasant Eyes: Anicteric sclerae, moist conjunctiva, no lid-lag Pupils equal round reactive to light ENMT: NC/AT Oropharynx clear, no erythema, exudates Neck: Supple, FROM, no masses, or JVD No carotid bruits No thyromegaly Lungs: Decreased breath sounds at lung bases with scattered expiratory wheezes Clear to percussion Normal respiratory effort, no accessory muscle use Cardiovascular: Heart regular in rate and rhythm, No murmurs, gallops, or rubs No peripheral edema Abdominal: Soft Nontender, no guarding, rebound or rigidity Abdomen moving with respiration Normoactive bowel sounds No hepatomegaly, No splenomegaly No palpable mass No abdominal wall hernia noted Skin: Patient has multiple abrasions over her right leg over the upper third due to recent dog bite no evidence of infection Normal temperature, tone, texture, turgor No induration No subcutaneous nodules No rash No ulcers Extremities: No digital cyanosis No clubbing Pedal pulses intact and symmetrical Radial pulses intact and symmetrical No calf tenderness Psychiatric: Alert and oriented to person, place and time Appropriate affect fair judgment Neuro Muscles Strength 5/5 in all 4 extremities Sensation to light touch grossly present throughout Cranial nerves II-XII grossly intact No focal sensory deficits Lymphatics: no palpable cervical or supraclavicular , or inguinal lymph nodes Results CBC & Chem 7: 10/09/17 19:27 10/09/17 19:27 Labs: Abnormal Lab Results - Last 24 Hours (Table) 10/09/17 10/09/17 10/09/17 Range/Units 19:27 19:27 20:00 WBC 12.0 H (3.8-10.6) k/uL Neutrophils # 9.2 H (1.3-7.7) k/uL PT (9.0-12.0) sec INR (<1.2) VBG pH (7.31-7.41) VBG pCO2 (37-51) mmHg VBG HCO3 (24-28) mmol/L Potassium 3.3 L (3.5-5.1) mmol/L Glucose 102 H (74-99) mg/dL Calcium 8.1 L (8.4-10.2) mg/dL AST 43 H (14-36) U/L Urine Protein Trace H (Negative) 10/09/17 10/09/17 Range/Units 20:00 20:44 WBC (3.8-10.6) k/uL Neutrophils # (1.3-7.7) k/uL PT 18.7 H (9.0-12.0) sec INR 2.1 H (<1.2) VBG pH 7.48 H (7.31-7.41) VBG pCO2 32 L (37-51) mmHg VBG HCO3 23 L (24-28) mmol/L Potassium (3.5-5.1) mmol/L Glucose (74-99) mg/dL Calcium (8.4-10.2) mg/dL AST (14-36) U/L Urine Protein (Negative) Thrombosis Risk Factor Assmnt - Choose All That Apply Each Factor Represents 1 point: Age 41-60 years Each Risk Factor Represents 3 Points: Family history of DVT/PE, History of DVT/ PE Thrombosis Risk Factor Assessment Total Risk Factor Score: 7 Thrombosis Risk Factor Assessment Level: High Risk Assessment and Plan Assessment: 47-year-old female with extensive past medical history including sarcoidosis and history of MRSA pneumonia, history of PE and DVT on Coumadin. Patient also has history of depression and anxiety. Patient is admitted under observation with anticipated length of stay of less than 48 hours due to diffuse body cramps and right-sided pleuritic chest pain. Patient had panic attacks ER upon presentation. Plan: Panic attack with history of depression and anxiety Resume BuSpar on and Prozac When necessary Xanax Patient feels cold and now and more relaxed Diffuse body cramps This is possibly secondary to electrolyte imbalance Hold Bumex Replace potassium Follow-up magnesium level Chronic right-sided pleuritic chest pain History of sarcoidosis Patient has been told this is possibly due to fibrosis of right lower lobe of the lung due to history of MRSA pneumonia and sarcoidosis and PE Symptomatic control Pulmonary consult COPD currently compensated When necessary DuoNeb's Hypokalemia secondary to diuretics Replace as needed follow-up levels Follow-up magnesium level Dog bite right lower extremity No swelling, no evidence of infection Small abrasions Patient received tetanus shot at the time of the incident Patient claims to have history of CHF however 2-D echocardiogram reported by cardiology from September 2016 shows left ventricular ejection fraction of 55% without any pulmonary hypertension. Unclear why patient takes Bumex she claims due to swelling in her lower extremities Preformed a thorough record review from recent hospitalization frequent hospitalization for MRSA pneumonia earlier this year. History of sarcoidosis. Surrogate decision-maker: Carl CODE STATUS: Full code DVT prophylaxis: Patient on Coumadin for history of venous thromboembolism Discussed with: Patient, ER, RN Anticipated discharge: <[address]: Home A total of 50 minutes was spent on the care of this complex patient more than 50 % of the time was spent in counseling and care coordination.
[2017-10-10 07:35] VITALS: BP 103/63; PULSE 82; RESP 16; TEMP 97.8
[2017-10-10 07:53] LABS: Anion Gap 12 mmol/L; Blood Urea Nitrogen 9 mg/dL (7-17); Carbon Dioxide 22 mmol/L (22-30); Chloride 105 mmol/L (98-107); Glucose 94 mg/dL (74-99); Magnesium 1.9 mg/dL (1.6-2.3); Sodium 139 mmol/L (137-145)
[2017-10-10 07:58] LABS: Potassium 3.6 mmol/L (3.5-5.1)
[2017-10-10] MEDS ORDERED: FLUoxetine HCL 20 MG CAP PO SCH (09:00)
[2017-10-10] MEDS ORDERED: lamoTRIgine 100 MG TAB PO SCH (09:00)
[2017-10-10] MEDS ORDERED: busPIRone HCl 10 MG TAB PO SCH (09:00)
[2017-10-10] MEDS ORDERED: PREGABALIN 75 MG CAP PO SCH (09:00)
[2017-10-10] MEDS ORDERED: METOPROLOL TARTRATE 50 MG TAB PO SCH (09:00)
[2017-10-10] MEDS ORDERED: WARFARIN 10 MG TAB PO SCH (18:00)
[2017-10-10] MEDS ORDERED: MIRTAZAPINE 45 MG TABLET PO SCH (21:00)
--- NOTE | 2017-10-11 13:25 | P.DS ---
Providers Date of admission: 10/09/17 22:42 Expected date of discharge: 10/11/17 Attending physician: Corie Welsh MD Consults: 10/09/17 22:43 Consult Physician Routine Consulting Provider: Bhupendra Clark Consult Reason/Comments: pleuritic chest pain Do you want consulting provider notified?: Yes Primary care physician: [facility] Course: Patient left against medical history, did not get the chance to see this patient as she left very early in my shift. No discharge instructions or prescriptions were given. Patient Condition at Discharge: Fair Plan - Discharge Summary New Discharge Prescriptions: No Action Cetirizine HCl [Zyrtec] 10 mg PO DAILY PRN PRN Reason: Allergy Symptoms FLUoxetine HCL [PROzac] 20 mg PO DAILY #30 capsule Metoprolol Tartrate [Lopressor] 50 mg PO BID #60 tab lamoTRIgine [LaMICtal] 200 mg PO DAILY Ondansetron HCl [Zofran] 4 mg PO BID PRN PRN Reason: Nausea Bumetanide 4 mg PO QAM Butalb/APAP/Caff 50-325-40Mg [Fioricet 50-325-40] 1 tab PO Q4H PRN PRN Reason: Migraine Headache Mirtazapine [Remeron] 45 mg PO HS ALPRAZolam [Xanax] 0.5 mg PO DAILY PRN PRN Reason: Anxiety Warfarin Sodium [Jantoven] 10 mg PO DAILY Pregabalin [Lyrica] 150 mg PO BID Bumetanide [BUMEX] 2 mg PO DAILY@1200 traMADol HCL [Ultram] 50 mg PO Q6HR PRN PRN Reason: Pain busPIRone HCL [Buspar] 30 mg PO BID busPIRone HCL 15 mg PO TID Nystatin 100,000 Unit/gm Powd [Mycostatin Powder] 1 applic TOPICAL BID PRN PRN Reason: Rash Baclofen [Lioresal] 20 mg PO Q8H PRN PRN Reason: Muscle Pain Discharge Medication List Cetirizine HCl [Zyrtec] 10 mg PO DAILY PRN 07/16/14 [History] FLUoxetine HCL [PROzac] 20 mg PO DAILY #30 capsule 08/20/15 [Rx] Metoprolol Tartrate [Lopressor] 50 mg PO BID #60 tab 08/20/15 [Rx] lamoTRIgine [LaMICtal] 200 mg PO DAILY 03/22/16 [History] Bumetanide 4 mg PO QAM 10/18/16 [History] Butalb/APAP/Caff 50-325-40Mg [Fioricet 50-325-40] 1 tab PO Q4H PRN 10/18/16 [ History] Ondansetron HCl [Zofran] 4 mg PO BID PRN 10/18/16 [History] Mirtazapine [Remeron] 45 mg PO HS 04/10/17 [History] ALPRAZolam [Xanax] 0.5 mg PO DAILY PRN 06/06/17 [History] Bumetanide [BUMEX] 2 mg PO DAILY@1200 09/16/17 [History] Nystatin 100,000 Unit/gm Powd [Mycostatin Powder] 1 applic TOPICAL BID PRN 09/16 [History] Pregabalin [Lyrica] 150 mg PO BID 09/16/17 [History] Warfarin Sodium [Jantoven] 10 mg PO DAILY 09/16/17 [History] busPIRone HCL 15 mg PO TID 09/16/17 [History] busPIRone HCL [Buspar] 30 mg PO BID 09/16/17 [History] traMADol HCL [Ultram] 50 mg PO Q6HR PRN 09/16/17 [History] Baclofen [Lioresal] 20 mg PO Q8H PRN 10/09/17 [History] Follow up Appointment(s)/Referral(s): Liz Koch MD [Primary Care Provider] - 1-2 days Discharge Disposition: Left Against Medical Advice
== END 2017-10-10 09:00 | disposition left against medical advice (07) ==
LOC: EC 19:20 → 3SUR 22:42
PROVIDERS: ADMIT Internal Medicine; ATTEND Internal Medicine
DX: R07.81 Pleurodynia (principal); R25.2 Cramp and spasm; F41.0 Panic disorder [episodic paroxysmal anxiety]; E87.3 Alkalosis; D86.9 Sarcoidosis, unspecified; D75.1 Secondary polycythemia; E87.6 Hypokalemia; T50.2X5A Adverse effect of carbonic-anhydrase inhibitors, benzothiadiazides and other diuretics, initial encounter; S80.811A Abrasion, right lower leg, initial encounter; W54.0XXA Bitten by dog, initial encounter; J44.9 Chronic obstructive pulmonary disease, unspecified; F17.210 Nicotine dependence, cigarettes, uncomplicated; Z91.19 Patient's noncompliance with other medical treatment and regimen; F31.9 Bipolar disorder, unspecified; M79.7 Fibromyalgia; I25.10 Atherosclerotic heart disease of native coronary artery without angina pectoris; I50.9 Heart failure, unspecified; I11.0 Hypertensive heart disease with heart failure; E78.5 Hyperlipidemia, unspecified; F43.9 Reaction to severe stress, unspecified; R06.4 Hyperventilation; Z79.01 Long term (current) use of anticoagulants; Z79.899 Other long term (current) drug therapy; Z88.1 Allergy status to other antibiotic agents; Z91.041 Radiographic dye allergy status; Z88.5 Allergy status to narcotic agent; Z88.8 Allergy status to other drugs, medicaments and biological substances; Z91.048 Other nonmedicinal substance allergy status; I25.2 Old myocardial infarction; Z86.61 Personal history of infections of the central nervous system; Z86.711 Personal history of pulmonary embolism; Z86.718 Personal history of other venous thrombosis and embolism; Z86.14 Personal history of Methicillin resistant Staphylococcus aureus infection; Z87.01 Personal history of pneumonia (recurrent); Z90.49 Acquired absence of other specified parts of digestive tract; Z83.3 Family history of diabetes mellitus; Z82.49 Family history of ischemic heart disease and other diseases of the circulatory system; Z87.09 Personal history of other diseases of the respiratory system; Z83.2 Family history of diseases of the blood and blood-forming organs and certain disorders involving the immune mechanism; Z83.79 Family history of other diseases of the digestive system
CPT/HCPCS: 96361 ×2; 96374 ×2; 99285 ×2; 36415; 80053; 80048; 82803; 83690; 83735; 85025; 85610; 81003; 81025; 80306; 71046; G0378 ×2; J1630

== ENCOUNTER → 2017-10-23 | Outpatient (CLI) | payer OTHER ==
--- NOTE | 2017-10-23 12:44 | US ---
EXAMINATION TYPE: US groin RT DATE OF EXAM: 10/23/2017 COMPARISON: NONE CLINICAL HISTORY: R22.9 Lump, R10.31 Rt groin pain. PAin in right groin with palpable area, redness t o skin Multiple nodes seen at area of palp and pain. Largest was 2.6 by 0.7 cm. Additional measures 2.2 x 0. 9 cm. All represent with normal fatty hilum, vascularity and thin cortex. tech impression given to Miesha at office @ 10:15 IMPRESSION: Shotty lymphadenopathy.
== END | disposition home or self-care (01) ==
LOC: RADUSWWP 09:53
PROVIDERS: ATTEND Family Medicine
DX: R59.0 Localized enlarged lymph nodes (principal); R10.31 Right lower quadrant pain

== ENCOUNTER 2017-11-03 17:41 | Inpatient (IN) | payer OTHER ==
--- NOTE | 2017-11-03 18:53 | ED ---
General Adult HPI <Jc Sanchez - Last Filed: 11/03/17 21:34> - General Source: patient, RN notes reviewed, old records reviewed Mode of arrival: ambulatory Limitations: no limitations <Gilberto Centeno - Last Filed: 11/04/17 16:01> - General Chief complaint: Shortness of Breath Stated complaint: OLY low O2 Time Seen by Provider: 11/03/17 18:45 - History of Present Illness Initial comments: This is a 47-year-old female the ER for evaluation. Patient is to be shortness of breath and chest pain. Patient is a current continued shortness of breath at home. No improvement with that and treatment. No recent fevers. Patient states she is connected her breathing under control at home, is also complaining of diffuse chest pain (Gilberto Centeno) - Related Data Home Medications Medication Instructions Recorded Confirmed Cetirizine HCl [Zyrtec] 10 mg PO DAILY PRN 07/16/14 11/04/17 lamoTRIgine [LaMICtal] 200 mg PO DAILY 03/22/16 11/04/17 Bumetanide 4 mg PO QAM 10/18/16 11/04/17 Butalb/APAP/Caff 50-325-40Mg 1 tab PO Q4H PRN 10/18/16 11/04/17 [Fioricet 50-325-40] Ondansetron HCl [Zofran] 4 mg PO BID PRN 10/18/16 11/04/17 Mirtazapine [Remeron] 45 mg PO HS 04/10/17 11/04/17 ALPRAZolam [Xanax] 0.5 mg PO TID PRN 06/06/17 11/04/17 Bumetanide [BUMEX] 2 mg PO DAILY@1200 09/16/17 11/04/17 Pregabalin [Lyrica] 150 mg PO BID 09/16/17 11/04/17 Warfarin Sodium [Jantoven] 10 mg PO HS 09/16/17 11/04/17 busPIRone HCL [Buspar] 30 mg PO BID 09/16/17 11/04/17 Baclofen [Lioresal] 20 mg PO Q8H PRN 10/09/17 11/04/17 Morphine Sulfate ER [Ms Contin] 30 mg PO Q8H PRN 11/03/17 11/04/17 Nystatin 100,000 Unit/gm Powd 1 applic TOPICAL BID 11/04/17 11/04/17 [Mycostatin Powder] Promethazine/Dextromethorphan 5 ml PO Q6H PRN 11/04/17 11/04/17 [Promethazine-Dm Syrup] Previous Rx's Medication Instructions Recorded FLUoxetine HCL [PROzac] 20 mg PO DAILY #30 capsule 08/20/15 Metoprolol Tartrate [Lopressor] 50 mg PO BID #60 tab 08/20/15 Allergies Allergy/AdvReac Type Severity Reaction Status Date / Time ketorolac tromethamine Allergy Severe Anaphylaxis Verified 11/04/17 13:47 [From Toradol] Opioids - Morphine Analogues Allergy Mild Itching Verified 11/04/17 13:47 Iodinated Contrast- Oral and Allergy Unknown Verified 11/04/17 13:47 IV Dye rivaroxaban [From Xarelto] Allergy Rash/Hives Verified 11/04/17 13:47 sumatriptan [From Imitrex] Allergy Anaphylaxis Verified 11/04/17 13:47 sumatriptan succinate Allergy Anaphylaxis Verified 11/04/17 13:47 [From Imitrex] morphine AdvReac Severe Itching Verified 11/04/17 13:47 iodine AdvReac Intermediate Itching Verified 11/04/17 13:47 tramadol AdvReac Anaphylaxis Verified 11/04/17 13:47 vancomycin AdvReac Itching Verified 11/04/17 13:47 Rich wipes AdvReac Severe Rash/Hives Uncoded 09/16/17 15:30 Review of Systems ROS Other: All systems not noted in ROS Statement are negative. <cJ Sanchez - Last Filed: 11/03/17 21:34> ROS Other: All systems not noted in ROS Statement are negative. <Gilberto Centeno - Last Filed: 11/04/17 16:01> ROS Statement: Those systems with pertinent positive or pertinent negative responses have been documented in the HPI. Past Medical History Past Medical History: Blood Disorder, Heart Failure, COPD, Deep Vein Thrombosis (DVT), Hyperlipidemia, Hypertension, Myocardial Infarction (NH), Musculoskeletal Disorder, Pneumonia, Pulmonary Embolus (PE) Additional Past Medical History / Comment(s): PE 2012; Sarcoidosis diagnosed in 2016 following a bronchoscopy and lung biopsy done at [facility] and she was started on predniosone and she took the therapy for almost 1 year, polycythemia, overweight, bilateral PE (2011, 2015), bilateral DVTs, fibromyalgia, bipolar disorder, degenerative disk disorder, coronary artery disease along with previous history of a NH and ventilator dependent respiratory failure with MRSA pneumonia for which the patient was hospitalized [facility] in 2012. Viral meningitis in October 2014. Pulmonary fibrosis Last Myocardial Infarction Date:: February 15, 2013 History of Any Multi-Drug Resistant Organisms: MRSA Date of last positivie culture/infection: 04/13/17 MDRO Source:: BRONCH Past Surgical History: Section, Cholecystectomy, Heart Catheterization , Hernia Repair, Orthopedic Surgery Additional Past Surgical History / Comment(s): Lt ankle surgery,BRONCH Past Anesthesia/Blood Transfusion Reactions: Motion Sickness, Postoperative Nausea & Vomiting (PONV) Additional Past Anesthesia/Blood Transfusion Reaction / Comment(s): pt stated that last April she coded due to anesthetic Past Psychological History: Anxiety, Bipolar, Depression, Panic Disorder Smoking Status: Current every day smoker Past Alcohol Use History: None Reported Past Drug Use History: None Reported - Past Family History Father Family Medical History: Blood Disorder, Congestive Heart Failure (CHF), CVA/TIA , Deep Vein Thrombosis (DVT), Myocardial Infarction (NH) Additional Family Medical History / Comment(s): polycythemia Mother Family Medical History: Congestive Heart Failure (CHF), Diabetes Mellitus, Deep Vein Thrombosis (DVT), Myocardial Infarction (NH), Musculoskeletal Disorder Additional Family Medical History / Comment(s): DDD Sister(s) Family Medical History: No Reported History Brother(s) Family Medical History: No Reported History Son(s) Family Medical History: No Reported History Daughter(s) Family Medical History: No Reported History <Gilberto Centeno - Last Filed: 11/04/17 16:01> General Exam Limitations: no limitations <Gilberto Centeno - Last Filed: 11/04/17 16:01> Course <Jc Sanchez - Last Filed: 11/03/17 21:34> <Gilberto Centeno - Last Filed: 11/04/17 16:01> Vital Signs 11/03/17 11/03/17 11/03/17 17:44 19:51 20:05 Temperature 98.3 F Pulse Rate 107 H 98 92 Pulse Rate [ Pulse Oximetery ] Respiratory 20 18 18 Rate Blood Pressure 125/82 Blood Pressure [Right Arm] O2 Sat by Pulse 93 L Oximetry 11/03/17 11/03/17 11/03/17 20:18 20:32 21:30 Temperature Pulse Rate 94 99 110 H Pulse Rate [ Pulse Oximetery ] Respiratory 18 18 19 Rate Blood Pressure 135/64 Blood Pressure [Right Arm] O2 Sat by Pulse 96 Oximetry 11/03/17 11/03/17 22:23 22:25 Temperature 98.2 F 97.3 F L Pulse Rate 90 Pulse Rate [ 106 H Pulse Oximetery ] Respiratory 20 16 Rate Blood Pressure 133/75 Blood Pressure 131/75 [Right Arm] O2 Sat by Pulse 97 92 L Oximetry - Reevaluation(s) Reevaluation #1: 11/03/17 21:34 I was contacted with a critical potassium of 3.0, and also asked by nursing for analgesia. Have entered ordered for these medications, otherwise care to be taken by the admitting physician. (Jc Sanchez) EKG Findings - EKG Comments: EKG Findings:: EKG shows sinus rhythm rate of 72, WV 104, QRS 80, QTC 440 <Gilberto Centeno - Last Filed: 11/04/17 16:01> Medical Decision Making - Lab Data Result diagrams: 11/03/17 20:32 11/03/17 20:32 <Jc Sanchez - Last Filed: 11/03/17 21:34> - Lab Data Result diagrams: 11/04/17 07:28 11/04/17 07:28 <Gilberto Centeno - Last Filed: 11/04/17 16:01> - Lab Data Lab Results 11/03/17 11/03/17 11/03/17 Range/Units 20:32 20:32 20:32 WBC 12.9 H (3.8-10.6) k/uL RBC 4.88 (3.80-5.40) m/uL Hgb 14.7 (11.4-16.0) gm/dL Hct 42.5 (34.0-46.0) % MCV 87.0 (80.0-100.0) fL MCH 30.1 (25.0-35.0) pg MCHC 34.6 (31.0-37.0) g/dL RDW 13.3 (11.5-15.5) % Plt Count 303 (150-450) k/uL Neutrophils % 80 % Lymphocytes % 14 % Monocytes % 5 % Eosinophils % 0 % Basophils % 0 % Neutrophils # 10.4 H (1.3-7.7) k/uL Lymphocytes # 1.8 (1.0-4.8) k/uL Monocytes # 0.6 (0-1.0) k/uL Eosinophils # 0.0 (0-0.7) k/uL Basophils # 0.0 (0-0.2) k/uL PT (9.0-12.0) sec INR (<1.2) APTT (22.0-30.0) sec Sodium 139 (137-145) mmol/L Potassium 3.0 L* (3.5-5.1) mmol/L Chloride 101 (98-107) mmol/L Carbon Dioxide 25 (22-30) mmol/L Anion Gap 13 mmol/L BUN 16 (7-17) mg/dL Creatinine 0.80 (0.52-1.04) mg/dL Est GFR (CKD-EPI)AfAm >90 (>60 ml/min/1.73 sqM) Est GFR (CKD-EPI)NonAf 90 (>60 ml/min/1.73 sqM) Glucose 197 H (74-99) mg/dL Calcium 9.4 (8.4-10.2) mg/dL Magnesium 2.0 (1.6-2.3) mg/dL Total Bilirubin 0.4 (0.2-1.3) mg/dL AST 26 (14-36) U/L ALT 30 (9-52) U/L Alkaline Phosphatase 97 (38-126) U/L Total Creatine Kinase 77 (30-135) U/L CK-MB (CK-2) 0.6 (0.0-2.4) ng/mL CK-MB (CK-2) Rel Index 0.8 Troponin I <0.012 (0.000-0.034) ng/mL NT-Pro-B Natriuret Pep pg/mL Total Protein 7.3 (6.3-8.2) g/dL Albumin 4.0 (3.5-5.0) g/dL 11/03/17 11/03/17 Range/Units 20:32 20:32 WBC (3.8-10.6) k/uL RBC (3.80-5.40) m/uL Hgb (11.4-16.0) gm/dL Hct (34.0-46.0) % MCV (80.0-100.0) fL MCH (25.0-35.0) pg MCHC (31.0-37.0) g/dL RDW (11.5-15.5) % Plt Count (150-450) k/uL Neutrophils % % Lymphocytes % % Monocytes % % Eosinophils % % Basophils % % Neutrophils # (1.3-7.7) k/uL Lymphocytes # (1.0-4.8) k/uL Monocytes # (0-1.0) k/uL Eosinophils # (0-0.7) k/uL Basophils # (0-0.2) k/uL PT 16.7 H (9.0-12.0) sec INR 1.8 H (<1.2) APTT 30.9 H (22.0-30.0) sec Sodium (137-145) mmol/L Potassium (3.5-5.1) mmol/L Chloride (98-107) mmol/L Carbon Dioxide (22-30) mmol/L Anion Gap mmol/L BUN (7-17) mg/dL Creatinine (0.52-1.04) mg/dL Est GFR (CKD-EPI)AfAm (>60 ml/min/1.73 sqM) Est GFR (CKD-EPI)NonAf (>60 ml/min/1.73 sqM) Glucose (74-99) mg/dL Calcium (8.4-10.2) mg/dL Magnesium (1.6-2.3) mg/dL Total Bilirubin (0.2-1.3) mg/dL AST (14-36) U/L ALT (9-52) U/L Alkaline Phosphatase (38-126) U/L Total Creatine Kinase (30-135) U/L CK-MB (CK-2) (0.0-2.4) ng/mL CK-MB (CK-2) Rel Index Troponin I (0.000-0.034) ng/mL NT-Pro-B Natriuret Pep 161 pg/mL Total Protein (6.3-8.2) g/dL Albumin (3.5-5.0) g/dL Disposition <Jc Sanchez - Last Filed: 11/03/17 21:34> Is patient prescribed a controlled substance at d/c from ED?: No <Gilberto Centeno - Last Filed: 11/04/17 16:01> Clinical Impression: COPD (chronic obstructive pulmonary disease), Acute exacerbation of chronic bronchitis, Acute exacerbation of chronic low back pain Disposition: ADMITTED IP TO THIS HOSP Condition: Fair
[2017-11-03] MEDS ORDERED: SODIUM CHLORIDE 0.9% 1,000 ML IV STA (19:21)
[2017-11-03] MEDS ORDERED: ALBUTEROL NEBULIZED 2.5 MG/3 ML INHALATION STA (19:21)
[2017-11-03] MEDS ORDERED: MORPHINE SULFATE 4 MG/ML SYRINGE IVP STA (19:21)
[2017-11-03] MEDS ORDERED: methylPREDNISolone SOD SUCCI 125 MG/2 ML VIAL IV STA (19:21)
[2017-11-03] MEDS ORDERED: IPRATROPIUM 0.5 MG/2.5 ML NEBU INHALATION STA (19:21)
[2017-11-03 20:58] LABS: Basophils % (A) 0 %; Eosinophils % (A) 0 %; HCT 42.5 % (34.0-46.0); HGB 14.7 gm/dL (11.4-16.0); Lymphocytes # (A) 1.8 k/uL (1.0-4.8); Lymphocytes % (A) 14 %; MCH 30.1 pg (25.0-35.0); MCHC 34.6 g/dL (31.0-37.0); Mean Platelet Volume 6.9; Monocytes # (A) 0.6 k/uL (0-1.0); Monocytes % (A) 5 %; Neutrophils # (A) 10.4 k/uL (1.3-7.7); Neutrophils % (A) 80 %; Platelet Count 303 k/uL (150-450); RBC 4.88 m/uL (3.80-5.40); RDW 13.3 % (11.5-15.5); WBC 12.9 k/uL (3.8-10.6)
[2017-11-03 21:01] LABS: INR 1.8 (<1.2)
[2017-11-03 21:02] LABS: Partial Thromboplastin Time 30.9 sec (22.0-30.0); Prothrombin Time 16.7 sec (9.0-12.0)
[2017-11-03] MEDS ORDERED: LEVOFLOXACIN 750MG-D5W PMX 750 MG in DEXTROSE/WATER 1 150ML.BAG IVPB STA (21:03)
[2017-11-03 21:11] LABS: ALT 30 U/L (9-52); AST 26 U/L (14-36); Alkaline Phosphatase 97 U/L (38-126); Anion Gap 13 mmol/L; Blood Urea Nitrogen 16 mg/dL (7-17); Calcium 9.4 mg/dL (8.4-10.2); Carbon Dioxide 25 mmol/L (22-30); Chloride 101 mmol/L (98-107); Creatine Kinase 77 U/L (30-135); Glucose 197 mg/dL (74-99); Sodium 139 mmol/L (137-145); Total Bilirubin 0.4 mg/dL (0.2-1.3); Total Protein 7.3 g/dL (6.3-8.2)
[2017-11-03 21:22] LABS: Creatine Kinase MB 0.6 ng/mL (0.0-2.4); Troponin I <0.012 ng/mL (0.000-0.034)
[2017-11-03] MEDS ORDERED: POTASSIUM CHLORIDE ER 20 MEQ TAB.ER PO STA (21:32)
[2017-11-03] MEDS ORDERED: HYDROcodone/APAP 5-325MG 1 EACH TAB PO STA (21:33)
--- NOTE | 2017-11-03 21:41 | XR ---
EXAMINATION TYPE: XR chest 2V DATE OF EXAM: 11/03/2017 COMPARISON: 10/09/2017 INDICATION: Difficulty breathing TECHNIQUE: Frontal and lateral views of the chest are obtained. FINDINGS: The heart size is normal. The pulmonary vasculature is dominant. Diffuse increased lung markings are present. IMPRESSION: 1. Correlate for pulmonary edema.
[2017-11-03] MEDS ORDERED: BUSPIRONE HCL 30 MG PO SCH (23:30)
[2017-11-04] MEDS: MORPHINE SULFATE ER 30 MG TABLET PO PRN ×4 (00:01→22:15)
[2017-11-04] MEDS: PREGABALIN 75 MG CAP PO SCH ×3 (00:01→20:43)
[2017-11-04] MEDS: SODIUM CHLORIDE 0.9% 1,000 ML IV SCH ×2 (00:01→08:38)
[2017-11-04] MEDS: methylPREDNISolone SOD SUCCI 125 MG/2 ML VIAL IV SCH ×4 (00:02→17:42)
[2017-11-04] MEDS: WARFARIN 10 MG TAB PO SCH ×3 (00:30→20:43)
[2017-11-04] MEDS: BACLOFEN 10 MG TAB PO PRN (00:30)
[2017-11-04] MEDS: busPIRone HCl 10 MG TAB PO SCH ×3 (00:30→20:43)
[2017-11-04] MEDS: METOPROLOL TARTRATE 50 MG TAB PO SCH ×3 (00:31→20:43)
[2017-11-04] MEDS: MIRTAZAPINE 45 MG TABLET PO SCH ×2 (01:11→20:43)
[2017-11-04] MEDS: ALPRAZolam 0.5 MG TAB PO PRN ×3 (01:13→14:49)
[2017-11-04] MEDS ORDERED: IPRATROPIUM-ALBUTEROL 3 ML NEB INHALATION PRN (02:28)
[2017-11-04] MEDS: IPRATROPIUM-ALBUTEROL 3 ML NEB INHALATION SCH ×5 (02:34→20:34)
[2017-11-04] MEDS ORDERED: LORATADINE 10 MG TAB PO PRN (07:23)
[2017-11-04 07:50] LABS: Glucose,Whole Blood 189 mg/dL (75-99)
[2017-11-04 08:17] LABS: HCT 40.1 % (34.0-46.0); HGB 13.6 gm/dL (11.4-16.0); MCH 30.2 pg (25.0-35.0); MCHC 33.9 g/dL (31.0-37.0); MCV 89.1 fL (80.0-100.0); Mean Platelet Volume 6.9; Platelet Count 234 k/uL (150-450); RDW 13.1 % (11.5-15.5); WBC 14.3 k/uL (3.8-10.6)
[2017-11-04] MEDS: BUTALB/APAP/CAFF 50-325-40MG TAB PO PRN ×2 (08:33→14:49)
[2017-11-04 08:47] LABS: Anion Gap 10 mmol/L; Blood Urea Nitrogen 14 mg/dL (7-17); Carbon Dioxide 24 mmol/L (22-30); Chloride 105 mmol/L (98-107); Glucose 180 mg/dL (74-99); Potassium 3.7 mmol/L (3.5-5.1); Sodium 139 mmol/L (137-145)
[2017-11-04] MEDS ORDERED: ENOXAPARIN 40 MG/0.4 ML SYRINGE SQ SCH (09:00)
[2017-11-04] MEDS: lamoTRIgine 100 MG TAB PO SCH (09:11)
[2017-11-04] MEDS: BUMETANIDE 1 MG TAB PO SCH ×2 (09:11→13:52)
[2017-11-04] MEDS: FLUoxetine HCL 20 MG CAP PO SCH (09:11)
[2017-11-04] MEDS: guaiFENesin-DM 100-10MG/5ML 10 ML CUP PO PRN ×2 (11:22→17:40)
[2017-11-04] MEDS ORDERED: ACETAMINOPHEN TAB 500 MG TAB PO PRN (11:23)
[2017-11-04 11:55] LABS: Glucose,Whole Blood 218 mg/dL (75-99)
--- NOTE | 2017-11-04 12:34 | P.HPIM ---
History of Present Illness 47-year-old female with a previous history of advanced COPD uses levofloxacin at home came in with complaints of severe shortness of breath has been going on for last few days much worse yesterday patient was started on systemic steroids Lissa levo Floxin chest x-ray did not show any pneumonic process patient is wheezing quite a bit tachypneic. Patient can use to smoke at home. Patient follows up with pulmonology as an outpatient pulmonary was consulted as well patient is on inhalational treatments. Extensive counseling regarding nicotine cessation was provided. Patient is coughing quite a bit unable to bring up anything. Review of Systems REVIEW OF SYSTEMS: CONSTITUTIONAL: No fever, no malaise, no fatigue. HEENT: No recent visual problems or hearing problems. Denied any sore throat. CARDIOVASCULAR: No chest pain, orthopnea, PND, no palpitations, no syncope. PULMONARY: As mentioned in HPI GASTROINTESTINAL: No diarrhea, no nausea, no vomiting, no abdominal pain. Normoactive bowel sounds. NEUROLOGICAL: No headaches, no weakness, no numbness. HEMATOLOGICAL: Denies any bleeding or petechiae. GENITOURINARY: Denies any burning micturition, frequency, or urgency. MUSCULOSKELETAL/RHEUMATOLOGICAL: Denies any joint pain, swelling, or any muscle pain. ENDOCRINE: Denies any polyuria or polydipsia. The rest of the 14-point review of systems is negative. Past Medical History Past Medical History: Blood Disorder, Heart Failure, COPD, Deep Vein Thrombosis (DVT), Hyperlipidemia, Hypertension, Myocardial Infarction (DE), Musculoskeletal Disorder, Pneumonia, Pulmonary Embolus (PE) Additional Past Medical History / Comment(s): PE 2012; Sarcoidosis diagnosed in 2015 following a bronchoscopy and lung biopsy done at [facility] and she was started on predniosone and she took the therapy for almost 1 year, polycythemia, overweight, bilateral PE (2011, 2015), bilateral DVTs, fibromyalgia, bipolar disorder, degenerative disk disorder, coronary artery disease along with previous history of a DE and ventilator dependent respiratory failure with MRSA pneumonia for which the patient was hospitalized [facility] in 2012. Viral meningitis in October 2014. Pulmonary fibrosis Last Myocardial Infarction Date:: February 15, 2013 History of Any Multi-Drug Resistant Organisms: MRSA Date of last positivie culture/infection: 04/13/17 MDRO Source:: BRONCH Past Surgical History: Section, Cholecystectomy, Heart Catheterization , Hernia Repair, Orthopedic Surgery Additional Past Surgical History / Comment(s): Lt ankle surgery,BRONCH Past Anesthesia/Blood Transfusion Reactions: Motion Sickness, Postoperative Nausea & Vomiting (PONV) Additional Past Anesthesia/Blood Transfusion Reaction / Comment(s): pt stated that last April she coded due to anesthetic Past Psychological History: Anxiety, Bipolar, Depression, Panic Disorder Additional Psychological History / Comment(s): Lives with her boyfriend. Regretfully she is an ongoing tobacco smoker despite her progressive and worsening pulmonary disease. Does not relate to significant alcohol use no recreational drug use. Currently not working. No experience. No recent travel. No animal exposures. Did leave the hospital AMA in March 2017. Difficulties with ongoing medical noncompliance Smoking Status: Current some day smoker Past Alcohol Use History: None Reported Additional Past Alcohol Use History / Comment(s): patient lives with her significant other. She states she smokes about 1 pack a day. She denies any alcohol use or recreational drug use. Patient is currently not working. No service. No recent travel. No animal exposures. She did leave the hospital AMA in March 2017. Difficulties with ongoing medical noncompliance. Past Drug Use History: None Reported - Past Family History Father Family Medical History: Blood Disorder, Congestive Heart Failure (CHF), CVA/TIA , Deep Vein Thrombosis (DVT), Myocardial Infarction (DE) Additional Family Medical History / Comment(s): polycythemia Mother Family Medical History: Congestive Heart Failure (CHF), Diabetes Mellitus, Deep Vein Thrombosis (DVT), Myocardial Infarction (DE), Musculoskeletal Disorder Additional Family Medical History / Comment(s): DDD Sister(s) Family Medical History: No Reported History Brother(s) Family Medical History: No Reported History Son(s) Family Medical History: No Reported History Daughter(s) Family Medical History: No Reported History Medications and Allergies Home Medications Medication Instructions Recorded Confirmed Type Cetirizine HCl [Zyrtec] 10 mg PO DAILY PRN 07/16/14 11/03/17 History FLUoxetine HCL [PROzac] 20 mg PO DAILY #30 capsule 08/20/15 11/03/17 Rx Metoprolol Tartrate [Lopressor] 50 mg PO BID #60 tab 08/20/15 11/03/17 Rx lamoTRIgine [LaMICtal] 200 mg PO DAILY 03/22/16 11/03/17 History Bumetanide 4 mg PO QAM 10/18/16 11/03/17 History Butalb/APAP/Caff 50-325-40Mg 1 tab PO Q4H PRN 10/18/16 11/03/17 History [Fioricet 50-325-40] Ondansetron HCl [Zofran] 4 mg PO BID PRN 10/18/16 11/03/17 History Mirtazapine [Remeron] 45 mg PO HS 04/10/17 11/03/17 History ALPRAZolam [Xanax] 0.5 mg PO TID PRN 06/06/17 11/03/17 History Bumetanide [BUMEX] 2 mg PO DAILY@1200 09/16/17 11/03/17 History Pregabalin [Lyrica] 150 mg PO BID 09/16/17 11/03/17 History Warfarin Sodium [Jantoven] 10 mg PO DAILY 09/16/17 11/03/17 History busPIRone HCL [Buspar] 30 mg PO BID 09/16/17 11/03/17 History Baclofen [Lioresal] 20 mg PO Q8H PRN 10/09/17 11/03/17 History Morphine Sulfate ER [Ms Contin] 30 mg PO Q8H PRN 11/03/17 11/03/17 History Allergies Allergy/AdvReac Type Severity Reaction Status Date / Time ketorolac tromethamine Allergy Severe Anaphylaxis Verified 10/09/17 20:26 [From Toradol] Opioids - Morphine Analogues Allergy Mild Itching Verified 10/09/17 20:26 Iodinated Contrast- Oral and Allergy Unknown Verified 10/09/17 20:26 IV Dye rivaroxaban [From Xarelto] Allergy Rash/Hives Verified 10/09/17 20:26 sumatriptan [From Imitrex] Allergy Anaphylaxis Verified 10/09/17 20:26 sumatriptan succinate Allergy Anaphylaxis Verified 10/09/17 20:26 [From Imitrex] morphine AdvReac Severe Itching Verified 10/09/17 20:26 iodine AdvReac Intermediate Itching Verified 10/09/17 20:26 tramadol AdvReac Anaphylaxis Verified 10/09/17 20:26 vancomycin AdvReac Itching Verified 07/10/18 20:26 Rich wipes AdvReac Severe Rash/Hives Uncoded 09/16/17 15:30 Physical Exam Vitals: Vital Signs Temp Pulse Pulse Resp BP BP Pulse Ox 11/04/17 12:12 90 11/04/17 11:58 88 11/04/17 08:48 92 11/04/17 08:35 89 91 L 11/04/17 05:35 97.3 F L 102 H 16 124/64 90 L 11/04/17 02:41 88 11/04/17 02:34 88 11/03/17 22:25 97.3 F L 106 H 16 131/75 92 L 11/03/17 22:23 98.2 F 90 20 133/75 97 11/03/17 21:30 110 H 19 135/64 96 11/03/17 20:32 99 18 11/03/17 20:18 94 18 11/03/17 20:05 92 18 11/03/17 19:51 98 18 11/03/17 17:44 98.3 F 107 H 20 125/82 93 L Intake and Output 11/03/17 11/04/17 11/04/17 22:59 06:59 14:59 Intake Total 300 Balance 300 Intake: Oral 300 Other: Voiding Method Toilet Toilet # Voids 1 1 Weight 104.326 kg 104.326 kg PHYSICAL EXAMINATION: GENERAL: The patient is alert and oriented x3, in significant respiratory distress on 4 L of oxygen. Well developed, well nourished. HEENT: Pupils are round and equally reacting to light. EOMI. No scleral icterus. No conjunctival pallor. Normocephalic, atraumatic. No pharyngeal erythema. No thyromegaly. CARDIOVASCULAR: S1 and S2 present. No murmurs, rubs, or gallops. PULMONARY: Extremely limited air entry with the significant expiratory wheezing on exam, does have moaned faces secondary to steroids she was receiving for long time. ABDOMEN: Soft, nontender, nondistended, normoactive bowel sounds. No palpable organomegaly. MUSCULOSKELETAL: No joint swelling or deformity. EXTREMITIES: No cyanosis, clubbing, or pedal edema. NEUROLOGICAL: Gross neurological examination did not reveal any focal deficits. SKIN: No rashes. Results CBC & Chem 7: 11/04/17 07:28 11/04/17 07:28 Labs: Abnormal Lab Results - Last 24 Hours (Table) 18 11/03/17 11/03/17 Range/Units 20:32 20:32 20:32 WBC 12.9 H (3.8-10.6) k/uL Neutrophils # 10.4 H (1.3-7.7) k/uL PT 16.7 H (9.0-12.0) sec INR 1.8 H (<1.2) APTT 30.9 H (22.0-30.0) sec Potassium 3.0 L* (3.5-5.1) mmol/L Glucose 197 H (74-99) mg/dL POC Glucose (mg/dL) (75-99) mg/dL 11/04/17 11/04/17 11/04/17 Range/Units 07:21 07:28 07:28 WBC 14.3 H (3.8-10.6) k/uL Neutrophils # (1.3-7.7) k/uL PT (9.0-12.0) sec INR (<1.2) APTT (22.0-30.0) sec Potassium (3.5-5.1) mmol/L Glucose 180 H (74-99) mg/dL POC Glucose (mg/dL) 189 H (75-99) mg/dL 11/04/17 Range/Units 11:49 WBC (3.8-10.6) k/uL Neutrophils # (1.3-7.7) k/uL PT (9.0-12.0) sec INR (<1.2) APTT (22.0-30.0) sec Potassium (3.5-5.1) mmol/L Glucose (74-99) mg/dL POC Glucose (mg/dL) 218 H (75-99) mg/dL Thrombosis Risk Factor Assmnt - Choose All That Apply Any of the Below Risk Factors Present?: Yes Each Factor Represents 1 point: Abnormal pulmonary function (COPD), Age 41-60 years, Obesity (BMI >25) Other Risk Factors: No Other congenital or acquired thrombophilia - If yes, enter type in comment: No Thrombosis Risk Factor Assessment Total Risk Factor Score: 3 Thrombosis Risk Factor Assessment Level: Moderate Risk Assessment and Plan Plan: -Acute on chronic hypercapnic respiratory failure secondary to COPD exacerbation ,, patient is on systemic steroids inhalational treatments which will be continued pulmonology evaluated the patient patient is on levofloxacin which will be continued -History of congestive heart failure chronic diastolic dysfunction without any acute exacerbation her home diuretic therapy will be continued at this can you IV fluids -History of DVT in the past and PE in the past patient is on Coumadin but subtherapeutic continue the same dose of Coumadin as it interacts with the steroids I'm expecting her INR level to go up. Repeat INR tomorrow. -Hyperlipidemia -Hypertension -Continued nicotine use: Extensive counseling was provided.
--- NOTE | 2017-11-04 13:00 | P.CNPUL ---
History of Present Illness Consult date: 11/04/17 Reason for consult: dyspnea, COPD History of present illness: 47-year-old obese female patient with known history of COPD and chronic smoking , presented to the hospital because of worsening shortness of breath over a few days duration. Apparently she had seen her primary care physician on outpatient basis and she has completed the course of Levaquin. She did not improve and she end up coming to the hospital. Chest x-ray shows no evidence of an acute pneumonia. The patient is still smoking cigarettes. She is known to me from previous hospitalization and office visits. The patient has had multiple exacerbation the past regarding COPD exacerbation. She has home oxygen 3 L/m nasal cannula. She also has known about treatments around the clock. Her chest x-ray that is to show chronic interstitial changes bilaterally and this was even seen on previous chest x-rays. No airspace disease or infiltrates or pneumonias seen. The patient has multiple medical positive comorbidities pH is on long-term and to coagulation regarding previous history of DVT and pulmonary embolism. There was also vague history of sarcoidosis that was diagnosed back in 2016 following a bronchoscopy that was done at [facility] and the patient was treated with steroids for almost a year and she ultimately dropped down the dose and stopped the steroid treatment. She has had previous MRSA pneumonia and previous streptococcal pneumonia all treated successfully. Review of Systems Constitutional: Reports fatigue, Reports weakness, Reports weight gain Eyes: denies blurred vision, denies bulging eye, denies decreased vision Ears: deny: decreased hearing, ear discharge, earache, tinnitus Ears, nose, mouth and throat: Denies headache, Denies sore throat Cardiovascular: Reports decreased exercise tolerance, Reports dyspnea on exertion, Reports shortness of breath Respiratory: Reports cough, Reports dyspnea, Reports wheezing Gastrointestinal: Denies abdominal pain, Denies diarrhea, Denies nausea, Denies vomiting Genitourinary: Denies dysuria, Denies hematuria Menstruation: Reports as per HPI Musculoskeletal: Reports as per HPI Musculoskeletal: absent: ankle pain, ankle stiffness, ankle swelling Integumentary: Denies pruritus, Denies rash Neurological: Reports weakness Psychiatric: Denies anxiety, Denies depression Endocrine: Denies fatigue, Denies weight change Hematologic/Lymphatic: Reports as per HPI Allergic/Immunologic: Reports as per HPI Past Medical History Past Medical History: Blood Disorder, Heart Failure, COPD, Deep Vein Thrombosis (DVT), Hyperlipidemia, Hypertension, Myocardial Infarction (MS), Musculoskeletal Disorder, Pneumonia, Pulmonary Embolus (PE) Additional Past Medical History / Comment(s): PE 2012; Sarcoidosis diagnosed in 2015 following a bronchoscopy and lung biopsy done at [facility] and she was started on predniosone and she took the therapy for almost 1 year, polycythemia, overweight, bilateral PE (2011, 2015), bilateral DVTs, fibromyalgia, bipolar disorder, degenerative disk disorder, coronary artery disease along with previous history of a MS and ventilator dependent respiratory failure with MRSA pneumonia for which the patient was hospitalized [facility] in 2012. Viral meningitis in October 2014. Pulmonary fibrosis Last Myocardial Infarction Date:: February 15, 2013 History of Any Multi-Drug Resistant Organisms: MRSA Date of last positivie culture/infection: 04/13/17 MDRO Source:: BRONCH Past Surgical History: Section, Cholecystectomy, Heart Catheterization , Hernia Repair, Orthopedic Surgery Additional Past Surgical History / Comment(s): Lt ankle surgery,BRONCH Past Anesthesia/Blood Transfusion Reactions: Motion Sickness, Postoperative Nausea & Vomiting (PONV) Additional Past Anesthesia/Blood Transfusion Reaction / Comment(s): pt stated that last April she coded due to anesthetic Past Psychological History: Anxiety, Bipolar, Depression, Panic Disorder Additional Psychological History / Comment(s): Lives with her boyfriend. Regretfully she is an ongoing tobacco smoker despite her progressive and worsening pulmonary disease. Does not relate to significant alcohol use no recreational drug use. Currently not working. No experience. No recent travel. No animal exposures. Did leave the hospital AMA in March 2017. Difficulties with ongoing medical noncompliance Smoking Status: Current some day smoker Past Alcohol Use History: None Reported Additional Past Alcohol Use History / Comment(s): patient lives with her significant other. She states she smokes about 1 pack a day. She denies any alcohol use or recreational drug use. Patient is currently not working. No service. No recent travel. No animal exposures. She did leave the hospital AMA in March 2017. Difficulties with ongoing medical noncompliance. Past Drug Use History: None Reported - Past Family History Father Family Medical History: Blood Disorder, Congestive Heart Failure (CHF), CVA/TIA , Deep Vein Thrombosis (DVT), Myocardial Infarction (MS) Additional Family Medical History / Comment(s): polycythemia Mother Family Medical History: Congestive Heart Failure (CHF), Diabetes Mellitus, Deep Vein Thrombosis (DVT), Myocardial Infarction (MS), Musculoskeletal Disorder Additional Family Medical History / Comment(s): DDD Sister(s) Family Medical History: No Reported History Brother(s) Family Medical History: No Reported History Son(s) Family Medical History: No Reported History Daughter(s) Family Medical History: No Reported History Medications and Allergies Home Medications Medication Instructions Recorded Confirmed Type Cetirizine HCl [Zyrtec] 10 mg PO DAILY PRN 07/16/14 11/03/17 History FLUoxetine HCL [PROzac] 20 mg PO DAILY #30 capsule 08/20/15 11/03/17 Rx Metoprolol Tartrate [Lopressor] 50 mg PO BID #60 tab 08/20/15 11/03/17 Rx lamoTRIgine [LaMICtal] 200 mg PO DAILY 03/22/16 11/03/17 History Bumetanide 4 mg PO QAM 10/18/16 11/03/17 History Butalb/APAP/Caff 50-325-40Mg 1 tab PO Q4H PRN 10/18/16 11/03/17 History [Fioricet 50-325-40] Ondansetron HCl [Zofran] 4 mg PO BID PRN 10/18/16 11/03/17 History Mirtazapine [Remeron] 45 mg PO HS 04/10/17 11/03/17 History ALPRAZolam [Xanax] 0.5 mg PO TID PRN 06/06/17 11/03/17 History Bumetanide [BUMEX] 2 mg PO DAILY@1200 09/16/17 11/03/17 History Pregabalin [Lyrica] 150 mg PO BID 09/16/17 11/03/17 History Warfarin Sodium [Jantoven] 10 mg PO DAILY 09/16/17 11/03/17 History busPIRone HCL [Buspar] 30 mg PO BID 09/16/17 11/03/17 History Baclofen [Lioresal] 20 mg PO Q8H PRN 10/09/17 11/03/17 History Morphine Sulfate ER [Ms Contin] 30 mg PO Q8H PRN 11/03/17 11/03/17 History Allergies Allergy/AdvReac Type Severity Reaction Status Date / Time ketorolac tromethamine Allergy Severe Anaphylaxis Verified 10/09/17 20:26 [From Toradol] Opioids - Morphine Analogues Allergy Mild Itching Verified 10/09/17 20:26 Iodinated Contrast- Oral and Allergy Unknown Verified 10/09/17 20:26 IV Dye rivaroxaban [From Xarelto] Allergy Rash/Hives Verified 10/09/17 20:26 sumatriptan [From Imitrex] Allergy Anaphylaxis Verified 10/09/17 20:26 sumatriptan succinate Allergy Anaphylaxis Verified 10/09/17 20:26 [From Imitrex] morphine AdvReac Severe Itching Verified 10/09/17 20:26 iodine AdvReac Intermediate Itching Verified 10/09/17 20:26 tramadol AdvReac Anaphylaxis Verified 10/09/17 20:26 vancomycin AdvReac Itching Verified 10/09/17 20:26 Rich wipes AdvReac Severe Rash/Hives Uncoded 09/16/17 15:30 Physical Exam Vitals: Vital Signs Temp Pulse Pulse Resp BP BP Pulse Ox 11/04/17 12:12 90 11/04/17 11:58 88 11/04/17 08:48 92 11/04/17 08:35 89 91 L 11/04/17 05:35 97.3 F L 102 H 16 124/64 90 L 11/04/17 02:41 88 11/04/17 02:34 88 11/03/17 22:25 97.3 F L 106 H 16 131/75 92 L 11/03/17 22:23 98.2 F 90 20 133/75 97 11/03/17 21:30 110 H 19 135/64 96 11/03/17 20:32 99 18 11/03/17 20:18 94 18 11/03/17 20:05 92 18 11/03/17 19:51 98 18 11/03/17 17:44 98.3 F 107 H 20 125/82 93 L Intake and Output 11/03/17 11/04/17 11/04/17 22:59 06:59 14:59 Intake Total 300 Balance 300 Intake: Oral 300 Other: Voiding Method Toilet Toilet # Voids 1 1 Weight 104.326 kg 104.326 kg GENERAL EXAM: Alert, pleasant, obese 47-year-old white female comfortable in no apparent distress. HEAD: Normocephalic/atraumatic. EYES: Normal reaction of pupils, equal size. Conjunctiva pink, sclera white. NOSE: Clear with pink turbinates. THROAT: No erythema or exudates. NECK: No masses, no JVD, no thyroid enlargement, no adenopathy. CHEST: No chest wall deformity. Symmetrical expansion. LUNGS: Lung sounds are diminished, and there are diffuse expiratory wheezes throughout the lung diana bilaterally along with prolongation of expiratory phase of breathing. CVS: Regular rate and rhythm, normal S1 and S2, no gallops, no murmurs, no rubs ABDOMEN: Soft, nontender. No hepatosplenomegaly, normal bowel sounds, no guarding or rigidity. EXTREMITIES: No clubbing, no edema, no cyanosis, 2+ pulses and upper and lower extremities. MUSCULOSKELETAL: Muscle strength and tone normal. SPINE: No scoliosis or deformity SKIN: No rashes CENTRAL NERVOUS SYSTEM: Alert and oriented -3. No focal deficits, tone is normal in all 4 extremities. PSYCHIATRIC: Alert and oriented -3. Appropriate affect. Intact judgment and insight. Results - Laboratory Findings CBC and BMP: 11/04/17 07:28 11/04/17 07:28 PT/INR, D-dimer PT 16.7 sec (9.0-12.0) H 11/03/17 20:32 INR 1.8 (<1.2) H 11/03/17 20:32 Abnormal lab findings: Abnormal Labs 11/03/17 11/03/17 11/03/17 20:32 20:32 20:32 WBC 12.9 H Neutrophils # 10.4 H PT 16.7 H INR 1.8 H APTT 30.9 H Potassium 3.0 L* Glucose 197 H POC Glucose (mg/dL) 11/04/17 11/04/17 11/04/17 07:21 07:28 07:28 WBC 14.3 H Neutrophils # PT INR APTT Potassium Glucose 180 H POC Glucose (mg/dL) 189 H 11/04/17 11:49 WBC Neutrophils # PT INR APTT Potassium Glucose POC Glucose (mg/dL) 218 H - Diagnostic Findings Chest x-ray: image reviewed Assessment and Plan Plan: Assessment: #1. Acute COPD exacerbation with secondary shortness of breath. The patient was treated for symptoms of bronchitis on outpatient basis and she has completed course of Levaquin. She is coming in for ongoing dyspnea cough chest tightness and wheezing. Chest x-ray shows a background of mild chronic interstitial fibrosis, an area of an infiltrate on the right noted, and this could be another medicine that her previous sarcoidosis that she was diagnosed several years back. #2. Previous hospitalization for bilateral MRSA pneumonia, discharged home on 04/18/2017 #3. Chronic hypoxic respiratory failure secondary to above #4. Sarcoidosis, confirmed by lung biopsy at [facility] 2014, treated with systemic steroids that was ultimately weaned off and discontinued #5. History of pulmonary embolisms in 2011, 2016, DVTs, currently on anticoagulation with Coumadin, with subtherapeutic INR at 1.8 #6. Nicotine addiction, ongoing, currently down to 2 cigarettes per day, carries over [id number] smoking history #7. Obesity with features of obstructive sleep apnea #8. Anxiety #9. CAD, history of myocardial infarction #10. Recurrent hospitalizations for respiratory complications #11. Bipolar disorder #12. Degenerative disc disease #13. Hypertension #14 hyperlipidemia #15 fibromyalgia Plan Obtain sputum Gram stain and culture. Continue bronchodilators. Continue IV Solu-Medrol. Restart Levaquin as empiric antibiotic coverage. Continue anticoagulation with warfarin. Smoking cessation counseling was done. Outpatient medication was reviewed. We'll continue to follow.
[2017-11-04] MEDS: INSULIN ASPART 100 UNIT/ML 1 ML 10 ML VIAL SQ SCH ×4 (13:53→20:44)
[2017-11-04 17:24] LABS: Glucose,Whole Blood 171 mg/dL (75-99)
[2017-11-04 20:53] LABS: Glucose,Whole Blood 172 mg/dL (75-99)
[2017-11-04] MEDS ORDERED: LEVOFLOXACIN 750MG-D5W PMX 750 MG in DEXTROSE/WATER 1 150ML.BAG IVPB SCH (22:00)
[2017-11-05] MEDS: methylPREDNISolone SOD SUCCI 125 MG/2 ML VIAL IV SCH ×4 (00:41→18:30)
[2017-11-05] MEDS: guaiFENesin-DM 100-10MG/5ML 10 ML CUP PO PRN ×3 (01:20→18:28)
[2017-11-05] MEDS: ALPRAZolam 0.5 MG TAB PO PRN ×3 (01:22→18:27)
[2017-11-05] MEDS: BUTALB/APAP/CAFF 50-325-40MG TAB PO PRN ×2 (04:56→15:14)
[2017-11-05] MEDS: MORPHINE SULFATE ER 30 MG TABLET PO PRN ×2 (06:13→18:27)
[2017-11-05 08:01] LABS: Glucose,Whole Blood 164 mg/dL (75-99)
[2017-11-05] MEDS: IPRATROPIUM-ALBUTEROL 3 ML NEB INHALATION SCH ×4 (08:03→20:26)
[2017-11-05 08:17] LABS: HCT 41.2 % (34.0-46.0); HGB 13.3 gm/dL (11.4-16.0); MCH 28.8 pg (25.0-35.0); MCHC 32.2 g/dL (31.0-37.0); MCV 89.3 fL (80.0-100.0); Platelet Count 285 k/uL (150-450); RBC 4.61 m/uL (3.80-5.40); RDW 13.3 % (11.5-15.5); WBC 18.3 k/uL (3.8-10.6)
[2017-11-05 08:21] LABS: INR 2.2 (<1.2); Prothrombin Time 19.9 sec (9.0-12.0)
[2017-11-05] MEDS: FLUoxetine HCL 20 MG CAP PO SCH (08:48)
[2017-11-05] MEDS: busPIRone HCl 10 MG TAB PO SCH ×2 (08:48→21:22)
[2017-11-05] MEDS: lamoTRIgine 100 MG TAB PO SCH (08:49)
[2017-11-05] MEDS: BUMETANIDE 1 MG TAB PO SCH ×2 (08:49→11:46)
[2017-11-05] MEDS: METOPROLOL TARTRATE 50 MG TAB PO SCH ×2 (08:49→21:23)
[2017-11-05] MEDS: INSULIN ASPART 100 UNIT/ML 1 ML 10 ML VIAL SQ SCH ×4 (08:49→21:20)
[2017-11-05] MEDS ORDERED: FUROSEMIDE 10 MG/ML 4 ML VIAL IV STA (09:08)
--- NOTE | 2017-11-05 09:16 | XR ---
EXAMINATION TYPE: XR chest 1V portable DATE OF EXAM: 11/05/2017 Comparison: 11/03/2017 Clinical History: 47-year-old female shortness of breath Findings: Heart upper limits of normal in size. Worsening diffuse interstitial opacities. Possible trace left e ffusion. Impression: Borderline heart size with diffuse worsening interstitial opacities. Correlate for interstitial pulmo nary edema, interstitial pneumonitis, or atypical pneumonias.
[2017-11-05] MEDS: PREGABALIN 75 MG CAP PO SCH ×2 (09:36→21:24)
[2017-11-05] MEDS: BACLOFEN 10 MG TAB PO PRN ×2 (09:36→21:25)
--- NOTE | 2017-11-05 10:47 | P.PN ---
Subjective Progress Note Date: 11/05/17 Principal diagnosis: Acute exacerbation with secondary shortness of breath 47-year-old obese female patient with known history of COPD and chronic smoking , presented to the hospital because of worsening shortness of breath over a few days duration. Apparently she had seen her primary care physician on outpatient basis and she has completed the course of Levaquin. She did not improve and she end up coming to the hospital. Chest x-ray shows no evidence of an acute pneumonia. The patient is still smoking cigarettes. She is known to me from previous hospitalization and office visits. The patient has had multiple exacerbation the past regarding COPD exacerbation. She has home oxygen 3 L/m nasal cannula. She also has known about treatments around the clock. Her chest x-ray that is to show chronic interstitial changes bilaterally and this was even seen on previous chest x-rays. No airspace disease or infiltrates or pneumonias seen. The patient has multiple medical positive comorbidities pH is on long-term and to coagulation regarding previous history of DVT and pulmonary embolism. There was also vague history of sarcoidosis that was diagnosed back in 2016 following a bronchoscopy that was done at [facility] and the patient was treated with steroids for almost a year and she ultimately dropped down the dose and stopped the steroid treatment. She has had previous MRSA pneumonia and previous streptococcal pneumonia all treated successfully. On 11/05/2017 patient seen in follow-up on medical surgical floor. Per nursing report patient is more short of breath at rest and with any exertion, and her oxygen requirements have increased she is currently on 6 L per nasal cannula, with a pulse ox between 85-88%. On sounds reveal diffuse wheezing throughout, and coarse crackles bilaterally. She denies any fever or chills while inpatient , did have some subjective fevers at home. She is coughing, and she reports her sputum is dark colored, we will collect a sputum specimen, knowing that patient did have previous MRSA pneumonia a few months ago. Today's lab work was reviewed, her WBC is increased to 18.3, hemoglobin is 13.3, INR is 2.2. Afebrile, hemodynamically stable. Reports chest tightness and wheezing, but no anginal type symptoms. Stat chest x-ray was obtained, and showed diffuse worsening interstitial opacities, trace left pleural effusion. We will give the patient 1 dose of IV Lasix 40 mg, patient is already on oral diuretics in the form of Bumex. She will be switched to high flow nasal cannula, and FiO2 to be titrated to keep her pulse ox between 90 and 92%. A dose of oral Xanax was given, breathing treatments were administered. Patient is on empiric antibiotics in the form of Levaquin, we will add Pulmicort and Perforomist. Objective - Vital Signs Vital signs: Vital Signs Temp 97.8 F 11/05/17 07:00 Pulse 88 11/05/17 08:17 Resp 20 11/05/17 07:00 BP 102/66 11/05/17 07:00 Pulse Ox 88 L 11/05/17 07:00 Intake & Output 11/04/17 11/05/17 11/05/17 18:59 06:59 18:59 Intake Total 500 1300 Balance 500 1300 Weight 104.326 kg Intake: Oral 500 1300 Other: Voiding Method Toilet Toilet # Voids 3 1 - Exam GENERAL EXAM: Alert, pleasant, obese 47-year-old white female in mild amount of respiratory distress, tachypneic, currently on 6 L per nasal cannula with a pulse ox between 85-88%. She will be placed on high flow nasal cannula at 15 L , will adjust FiO2 to keep her pulse ox between 90-92% EYES: Normal reaction of pupils, equal size. Conjunctiva pink, sclera white. NOSE: Clear with pink turbinates. THROAT: No erythema or exudates. NECK: No masses, no JVD, no thyroid enlargement, no adenopathy. CHEST: No chest wall deformity. Symmetrical expansion. LUNGS: Lung sounds are diminished, and there are diffuse expiratory wheezes throughout the lung diana bilaterally along with prolongation of expiratory phase of breathing. Diffuse crackles bilaterally CVS: Regular rate and rhythm, normal S1 and S2, no gallops, no murmurs, no rubs ABDOMEN: Soft, nontender. No hepatosplenomegaly, normal bowel sounds, no guarding or rigidity. EXTREMITIES: No clubbing, no edema, no cyanosis, 2+ pulses and upper and lower extremities. MUSCULOSKELETAL: Muscle strength and tone normal. SPINE: No scoliosis or deformity SKIN: No rashes CENTRAL NERVOUS SYSTEM: Alert and oriented -3. No focal deficits, tone is normal in all 4 extremities. PSYCHIATRIC: Alert and oriented -3. Appropriate affect. Intact judgment and insight. - Labs CBC & Chem 7: 11/05/17 07:53 11/04/17 07:28 Labs: Abnormal Lab Results - Last 24 Hours (Table) 11/04/17 11/04/17 11/04/17 Range/Units 11:49 17:19 20:37 WBC (3.8-10.6) k/uL PT (9.0-12.0) sec INR (<1.2) POC Glucose (mg/dL) 218 H 171 H 172 H (75-99) mg/dL 11/05/17 11/05/17 11/05/17 Range/Units 07:31 07:53 07:53 WBC 18.3 H (3.8-10.6) k/uL PT 19.9 H (9.0-12.0) sec INR 2.2 H (<1.2) POC Glucose (mg/dL) 164 H (75-99) mg/dL Microbiology - Last 24 Hours (Table) 11/03/17 20:32 Blood Culture - Preliminary Blood No Growth after 24 hours Assessment and Plan Plan: Assessment: #1. Acute COPD exacerbation with secondary shortness of breath. The patient was treated for symptoms of bronchitis on outpatient basis and she has completed course of Levaquin. She is coming in for ongoing dyspnea cough chest tightness and wheezing. Chest x-ray shows a background of mild chronic interstitial fibrosis, an area of an infiltrate on the right noted, and this could be another medicine that her previous sarcoidosis that she was diagnosed several years back. On 11/05/2017 patient no follow-up, more dyspneic on today's exam, FiO2 requirements increased, patient was placed on high flow nasal cannula at 15 L. Today's chest x-ray shows worsening interstitial edema and small left pleural effusion, patient will be given a dose of IV Lasix in addition to her oral BuMex. Patient is diffusely wheezy, she remains on IV steroids at 60 mg every 6 hours, remains on nebulized bronchodilators, we will add Pulmicort and Perforomist, remains on empiric antibiotics in the form of Levaquin. #2. Previous hospitalization for bilateral MRSA pneumonia, discharged home on 04/18/2017 #3. Chronic hypoxic respiratory failure secondary to above #4. Sarcoidosis, confirmed by lung biopsy at [facility] 2014, treated with systemic steroids that was ultimately weaned off and discontinued #5. History of pulmonary embolisms in 2012, 2016, DVTs, currently on anticoagulation with Coumadin, with subtherapeutic INR at 1.8 #6. Nicotine addiction, ongoing, currently down to 2 cigarettes per day, carries over [id number] smoking history #7. Obesity with features of obstructive sleep apnea #8. Anxiety #9. CAD, history of myocardial infarction #10. Recurrent hospitalizations for respiratory complications #11. Bipolar disorder #12. Degenerative disc disease #13. Hypertension #14 hyperlipidemia #15 fibromyalgia Plan 1 dose of IV Lasix was given for worsening interstitial prominence and small left pleural effusion, possibly related to fluid overload. Continue current antibiotic coverage, obtain a sputum sample, patient remains afebrile. We will add Pulmicort and Perforomist, we will add Mucinex, continue bronchodilators, continue IV Solu-Medrol at 60 mg every 6 hours, titrate FiO2 to keep pulse ox between 90-92%, diagnosed, daily weights. We'll continue to follow I performed a history & physical examination of the patient and discussed their management with my nurse practitioner, Cydney Hart. I reviewed the nurse practitioner's note and agree with the documented findings and plan of care. Lung sounds are positive for diffuse wheezes and crackles throughout the lung diana. The findings and the impression was discussed with the patient. I attest to the documentation by the nurse practitioner. Time with Patient: Less than 30
[2017-11-05 11:36] LABS: Hemoglobin A1C 5.5 % (4.0-6.0)
[2017-11-05] MEDS: guaiFENesin 600 MG TABLET.ER PO SCH ×2 (11:45→21:22)
[2017-11-05] MEDS ORDERED: DEXTROMETHORPHAN PO PRN (11:50)
[2017-11-05] MEDS ORDERED: PROMETHAZINE PO PRN (11:50)
[2017-11-05] MEDS ORDERED: TEMAZEPAM 15 MG CAP PO PRN (11:51)
[2017-11-05 12:04] LABS: Glucose,Whole Blood 154 mg/dL (75-99)
[2017-11-05] MEDS ORDERED: HYDROmorphone 1 MG/ML 1 ML SYRINGE IVP STA (12:35)
--- NOTE | 2017-11-05 12:38 | PN ---
PROGRESS NOTE DATE OF SERVICE: 11/05/2017 This 47-year-old woman with a past medical history of multiple medical problems admitted with COPD acute exacerbation. Patient also complained of chest pain also. The patient also has congestive heart failure. The patient has been closely monitored. Patient is on broad-spectrum antibiotics and bronchodilators. Steroids also being given at this time. PAST MEDICAL HISTORY: Reviewed. REVIEW OF SYSTEMS: CARDIOVASCULAR: As mentioned earlier. RESPIRATORY: As mentioned earlier. GI: No nausea. : No dysuria. NERVOUS SYSTEM: No numbness or weakness. CURRENT MEDICATIONS: 1. Tylenol 500 mg q.6 p.r.n. 2. Fioricet 50/320 mg q.4h p.r.n. 3. [place] 5 mg q.6h p.r.n. 4. DuoNeb q.i.d. p.r.n. 5. Xanax 0.5 t.i.d. p.r.n. 6. Zithromax 500 mg daily. 7. Lioresal. 8. Pulmicort. 9. Bumex 4 mg q.a.m. 10.Rocephin 1 g IV daily. 11.Perforomist. 12.Mucinex. 13.Lamictal. 14.Claritin. 15.Solu-Medrol. Doses were reviewed. PHYSICAL EXAM: Patient is alert, oriented x3. Pulse 82, blood pressure 106/63, respiration 20, temperature 97.8, pulse ox 88% on 4 L. HEENT: Conjunctivae normal. Oral mucosa moist. NECK: No jugular venous distention. No carotid bruit. No lymph node enlargement. CARDIOVASCULAR: S1, S2. RESPIRATORY: Breath sounds diminished in the bases. Bilateral scattered rhonchi and crackles. ABDOMEN: Soft, nontender. No mass palpable. LEGS: No edema, no swelling. NERVOUS SYSTEM: Higher functions as mentioned earlier. Moves all 4 limbs. No focal motor deficits. LYMPHATICS: No lymphadenopathy in the neck, axillae, groin. SKIN: No ulcer, rash. LABS: WBC 18.8, hemoglobin 13.3, INR 2.2. ASSESSMENT: 1. Chronic obstructive pulmonary disease acute exacerbation with acute on chronic hypoxic hypercarbic respiratory failure with acute purulent tracheobronchitis or bronchopneumonia. 2. Rule out fluid overload with congestive heart failure acute exacerbation, acute on chronic diastolic dysfunction. 3. History of deep venous thrombosis and pulmonary embolism in the past. 4. Hypertension. 5. Hyperlipidemia. 6. Coumadin monitoring. 7. Continued ongoing nicotine dependence. 8. Hypokalemia. 9. History of hypertension. 10.History of myocardial infarction. 11.History of sarcoidosis. 12.History of polycythemia. 13.History of MRSA pneumonia. 14.Anxiety, bipolar, depression, panic disorder. RECOMMENDATIONS AND DISCUSSION: In this 47-year-old woman who presented with multiple complex medical issues, we will monitor the patient closely. Continue the current management and symptomatic treatment. Otherwise at this time I recommend to continue with bronchodilators. I would also continue with a small dose of Lasix also. Otherwise prognosis is guarded because of multiple complex medical issues. Further recommendations to follow. See orders for details. MMODL / IJN: [id number] /
[2017-11-05] MEDS: POTASSIUM CHLORIDE ER 20 MEQ TAB.ER PO SCH ×2 (13:15→22:26)
[2017-11-05] MEDS: AZITHROMYCIN 500 MG in DEXTROSE 5% IN WATER 250 ML IVPB SCH ×2 (13:16)
[2017-11-05] MEDS: cefTRIAXone IN SWFI 1,000 MG/10 ML SYRINGE IVP SCH (13:16)
[2017-11-05] MEDS: FUROSEMIDE 10 MG/ML 4 ML VIAL IV SCH ×2 (13:16→15:16)
[2017-11-05 17:17] LABS: Glucose,Whole Blood 244 mg/dL (75-99)
[2017-11-05] MEDS: FORMOTEROL FUMARATE 20 MCG/2 ML NEBU INHALATION SCH (20:26)
[2017-11-05] MEDS: BUDESONIDE 1 MG/2 ML NEBU INHALATION SCH (20:26)
[2017-11-05 20:40] LABS: Glucose,Whole Blood 92 mg/dL (75-99)
[2017-11-05] MEDS ORDERED: LEVOFLOXACIN 750 MG TAB PO SCH (21:00)
[2017-11-05] MEDS: MIRTAZAPINE 45 MG TABLET PO SCH (21:23)
[2017-11-05] MEDS: NYSTATIN 100,000 UNIT/GM POWD 15 GM TOPICAL SCH (21:26)
[2017-11-05] MEDS: WARFARIN 10 MG TAB PO SCH (22:26)
[2017-11-06] MEDS: FUROSEMIDE 10 MG/ML 4 ML VIAL IV SCH ×4 (00:53→23:18)
[2017-11-06] MEDS: methylPREDNISolone SOD SUCCI 125 MG/2 ML VIAL IV SCH ×5 (00:54→23:18)
[2017-11-06] MEDS: BUTALB/APAP/CAFF 50-325-40MG TAB PO PRN ×2 (01:17→15:57)
[2017-11-06] MEDS: ONDANSETRON 4 MG TAB PO PRN ×2 (01:18→15:57)
[2017-11-06] MEDS: MORPHINE SULFATE ER 30 MG TABLET PO PRN ×3 (05:37→22:01)
[2017-11-06] MEDS: FORMOTEROL FUMARATE 20 MCG/2 ML NEBU INHALATION SCH ×2 (07:11→20:28)
[2017-11-06] MEDS: IPRATROPIUM-ALBUTEROL 3 ML NEB INHALATION SCH ×4 (07:11→20:28)
[2017-11-06] MEDS: BUDESONIDE 1 MG/2 ML NEBU INHALATION SCH ×2 (07:11→20:28)
[2017-11-06 07:39] LABS: Glucose,Whole Blood 165 mg/dL (75-99)
[2017-11-06 07:48] LABS: Basophils % (A) 0 %; Eosinophils # (A) 0.1 k/uL (0-0.7); Eosinophils % (A) 0 %; HCT 42.7 % (34.0-46.0); HGB 13.6 gm/dL (11.4-16.0); Lymphocytes # (A) 1.8 k/uL (1.0-4.8); Lymphocytes % (A) 12 %; MCH 28.5 pg (25.0-35.0); MCHC 31.9 g/dL (31.0-37.0); MCV 89.4 fL (80.0-100.0); Mean Platelet Volume 6.9; Monocytes # (A) 0.8 k/uL (0-1.0); Monocytes % (A) 6 %; Neutrophils # (A) 12.1 k/uL (1.3-7.7); Neutrophils % (A) 81 %; Platelet Count 308 k/uL (150-450); RBC 4.78 m/uL (3.80-5.40); RDW 13.2 % (11.5-15.5)
[2017-11-06 08:04] LABS: INR 2.5 (<1.2); Prothrombin Time 22.1 sec (9.0-12.0)
[2017-11-06 08:13] LABS: Anion Gap 8 mmol/L; Blood Urea Nitrogen 17 mg/dL (7-17); Calcium 8.1 mg/dL (8.4-10.2); Carbon Dioxide 29 mmol/L (22-30); Chloride 100 mmol/L (98-107); Glucose 149 mg/dL (74-99); Potassium 3.9 mmol/L (3.5-5.1); Sodium 137 mmol/L (137-145)
[2017-11-06] MEDS: INSULIN ASPART 100 UNIT/ML 1 ML 10 ML VIAL SQ SCH ×4 (08:14→21:12)
[2017-11-06] MEDS: PANTOPRAZOLE 40 MG TABLET PO SCH (08:14)
[2017-11-06] MEDS: guaiFENesin 600 MG TABLET.ER PO SCH ×2 (08:15→21:12)
[2017-11-06] MEDS: POTASSIUM CHLORIDE ER 20 MEQ TAB.ER PO SCH ×2 (08:15→21:12)
[2017-11-06] MEDS: busPIRone HCl 10 MG TAB PO SCH ×2 (08:15→21:11)
[2017-11-06] MEDS: FLUoxetine HCL 20 MG CAP PO SCH (08:15)
[2017-11-06] MEDS: METOPROLOL TARTRATE 50 MG TAB PO SCH ×2 (08:15→21:11)
[2017-11-06] MEDS: lamoTRIgine 100 MG TAB PO SCH (08:15)
[2017-11-06] MEDS: NYSTATIN 100,000 UNIT/GM POWD 15 GM TOPICAL SCH ×2 (08:16→23:22)
[2017-11-06] MEDS: PREGABALIN 75 MG CAP PO SCH ×2 (08:16→21:15)
[2017-11-06] MEDS: AZITHROMYCIN 500 MG in DEXTROSE 5% IN WATER 250 ML IVPB SCH ×2 (08:16)
[2017-11-06] MEDS: cefTRIAXone IN SWFI 1,000 MG/10 ML SYRINGE IVP SCH (08:16)
[2017-11-06] MEDS: ALPRAZolam 0.5 MG TAB PO PRN ×2 (08:25→19:32)
--- NOTE | 2017-11-06 09:09 | P.PN ---
Subjective Progress Note Date: 11/06/17 Principal diagnosis: Acute exacerbation with secondary shortness of breath 47-year-old obese female patient with known history of COPD and chronic smoking , presented to the hospital because of worsening shortness of breath over a few days duration. Apparently she had seen her primary care physician on outpatient basis and she has completed the course of Levaquin. She did not improve and she end up coming to the hospital. Chest x-ray shows no evidence of an acute pneumonia. The patient is still smoking cigarettes. She is known to me from previous hospitalization and office visits. The patient has had multiple exacerbation the past regarding COPD exacerbation. She has home oxygen 3 L/m nasal cannula. She also has known about treatments around the clock. Her chest x-ray that is to show chronic interstitial changes bilaterally and this was even seen on previous chest x-rays. No airspace disease or infiltrates or pneumonias seen. The patient has multiple medical positive comorbidities pH is on long-term and to coagulation regarding previous history of DVT and pulmonary embolism. There was also vague history of sarcoidosis that was diagnosed back in 2015 following a bronchoscopy that was done at [facility] and the patient was treated with steroids for almost a year and she ultimately dropped down the dose and stopped the steroid treatment. She has had previous MRSA pneumonia and previous streptococcal pneumonia all treated successfully. On 11/05/2017 patient seen in follow-up on medical surgical floor. Per nursing report patient is more short of breath at rest and with any exertion, and her oxygen requirements have increased she is currently on 6 L per nasal cannula, with a pulse ox between 85-88%. On sounds reveal diffuse wheezing throughout, and coarse crackles bilaterally. She denies any fever or chills while inpatient , did have some subjective fevers at home. She is coughing, and she reports her sputum is dark colored, we will collect a sputum specimen, knowing that patient did have previous MRSA pneumonia a few months ago. Today's lab work was reviewed, her WBC is increased to 18.3, hemoglobin is 13.3, INR is 2.2. Afebrile, hemodynamically stable. Reports chest tightness and wheezing, but no anginal type symptoms. Stat chest x-ray was obtained, and showed diffuse worsening interstitial opacities, trace left pleural effusion. We will give the patient 1 dose of IV Lasix 40 mg, patient is already on oral diuretics in the form of Bumex. She will be switched to high flow nasal cannula, and FiO2 to be titrated to keep her pulse ox between 90 and 92%. A dose of oral Xanax was given, breathing treatments were administered. Patient is on empiric antibiotics in the form of Levaquin, we will add Pulmicort and Perforomist. On 11/06/2017 patient seen again in follow-up on medical surgical floor. She is currently on 15 L per high flow nasal cannula, and her pulse ox is between 94 -96%, she is in no acute distress, she is complaining of severe coughing spells , and she is now able to bring up brown colored sputum, specimen was sent to the lab for culture. Patient has been afebrile since admission, hemodynamically stable. Patient was started on IV diuretics, currently at 40 mg every 8 hours, diuresing. We'll obtain repeat chest x-ray today. Patient received Levaquin initially, now has been switched to Zithromax and Rocephin. Blood cultures remain negative. Lung sounds reveal diffuse wheezing, minimal crackles at the right lower lobe. Objective - Vital Signs Vital signs: Vital Signs Temp 97.8 F 11/06/17 07:00 Pulse 66 11/06/17 07:40 Resp 20 11/06/17 07:00 BP 102/68 11/06/17 07:00 Pulse Ox 94 L 11/06/17 07:11 Intake & Output 11/05/17 11/06/17 11/06/17 18:59 06:59 18:59 Other: # Voids 4 1 - Exam GENERAL EXAM: Alert, pleasant, obese 47-year-old white female in no distress, currently on 15 L per nasal cannula with a pulse ox between 94-95%. EYES: Normal reaction of pupils, equal size. Conjunctiva pink, sclera white. NOSE: Clear with pink turbinates. THROAT: No erythema or exudates. NECK: No masses, no JVD, no thyroid enlargement, no adenopathy. CHEST: No chest wall deformity. Symmetrical expansion. LUNGS: Lung sounds are diminished, and there are diffuse expiratory wheezes throughout the lung diana bilaterally along with prolongation of expiratory phase of breathing. Minimal crackles at the right posterior lower lobe CVS: Regular rate and rhythm, normal S1 and S2, no gallops, no murmurs, no rubs ABDOMEN: Soft, nontender. No hepatosplenomegaly, normal bowel sounds, no guarding or rigidity. EXTREMITIES: No clubbing, no edema, no cyanosis, 2+ pulses and upper and lower extremities. MUSCULOSKELETAL: Muscle strength and tone normal. SPINE: No scoliosis or deformity SKIN: No rashes CENTRAL NERVOUS SYSTEM: Alert and oriented -3. No focal deficits, tone is normal in all 4 extremities. PSYCHIATRIC: Alert and oriented -3. Appropriate affect. Intact judgment and insight. - Labs CBC & Chem 7: 11/06/17 07:27 11/06/17 07:27 Labs: Abnormal Lab Results - Last 24 Hours (Table) 11/05/17 11/05/17 11/06/17 Range/Units 12:01 17:08 07:14 WBC (3.8-10.6) k/uL Neutrophils # (1.3-7.7) k/uL PT (9.0-12.0) sec INR (<1.2) Glucose (74-99) mg/dL POC Glucose (mg/dL) 154 H 244 H 165 H (75-99) mg/dL Calcium (8.4-10.2) mg/dL 11/06/17 11/06/17 11/06/17 Range/Units 07:27 07:27 07:27 WBC 15.0 H (3.8-10.6) k/uL Neutrophils # 12.1 H (1.3-7.7) k/uL PT 22.1 H (9.0-12.0) sec INR 2.5 H (<1.2) Glucose 149 H (74-99) mg/dL POC Glucose (mg/dL) (75-99) mg/dL Calcium 8.1 L (8.4-10.2) mg/dL Microbiology - Last 24 Hours (Table) 11/03/17 20:32 Blood Culture - Preliminary Blood No Growth after 48 hours Assessment and Plan Plan: Assessment: #1. Acute COPD exacerbation with secondary shortness of breath. The patient was treated for symptoms of bronchitis on outpatient basis and she has completed course of Levaquin. She is coming in for ongoing dyspnea cough chest tightness and wheezing. Chest x-ray shows a background of mild chronic interstitial fibrosis, an area of an infiltrate on the right noted, and this could be another medicine that her previous sarcoidosis that she was diagnosed several years back. On 11/05/2017 patient no follow-up, more dyspneic on today's exam, FiO2 requirements increased, patient was placed on high flow nasal cannula at 15 L. Today's chest x-ray shows worsening interstitial edema and small left pleural effusion, patient will be given a dose of IV Lasix in addition to her oral BuMex. Patient is diffusely wheezy, she remains on IV steroids at 60 mg every 6 hours, remains on nebulized bronchodilators, we will add Pulmicort and Perforomist, remains on empiric antibiotics in the form of Levaquin. On 11/06/2017 patient is currently on 15 L per high flow nasal cannula, with a pulse ox between 94-96%. In no acute distress, starting to bring up brown colored phlegm, it was sent for culture. Blood cultures remain negative, antibiotics have been switched from Levaquin to azithromycin and Rocephin. She continues on IV diuretics, will update repeat chest x-ray today, afebrile, hemodynamically stable. #2. Previous hospitalization for bilateral MRSA pneumonia, discharged home on 04/18/2017 #3. Chronic hypoxic respiratory failure secondary to above #4. Sarcoidosis, confirmed by lung biopsy at [facility] 2014, treated with systemic steroids that was ultimately weaned off and discontinued #5. History of pulmonary embolisms in 2011, 2016, DVTs, currently on anticoagulation with Coumadin, her INR is therapeutic today, at 2.5, on 2017 #6. Nicotine addiction, ongoing, currently down to 2 cigarettes per day, carries over [id number] smoking history #7. Obesity with features of obstructive sleep apnea #8. Anxiety #9. CAD, history of myocardial infarction #10. Recurrent hospitalizations for respiratory complications #11. Bipolar disorder #12. Degenerative disc disease #13. Hypertension #14 hyperlipidemia #15 fibromyalgia Plan Continue current antibiotic coverage, continue systemic steroids, nebulized bronchodilators, IV diuretics. Obtain chest x-ray today. Wean FiO2, patient remains afebrile, sputum culture was sent, and is pending at this time. I performed a history & physical examination of the patient and discussed their management with my nurse practitioner, Cydney Hart. I reviewed the nurse practitioner's note and agree with the documented findings and plan of care. Lung sounds are positive for diffuse wheezes and crackles throughout the lung diana. The findings and the impression was discussed with the patient. I attest to the documentation by the nurse practitioner. Time with Patient: Less than 30
[2017-11-06] MEDS: HYDROcodone/APAP 5-325MG 1 EACH TAB PO PRN (10:23)
[2017-11-06] MEDS ORDERED: HYDROmorphone 1 MG/ML 1 ML SYRINGE IVP STA (10:47)
[2017-11-06] MEDS ORDERED: HYDROmorphone 1 MG/ML 1 ML SYRINGE IVP PRN (10:49)
[2017-11-06] MEDS: guaiFENesin-DM 100-10MG/5ML 10 ML CUP PO PRN ×2 (11:41→18:39)
[2017-11-06 11:59] LABS: Glucose,Whole Blood 139 mg/dL (75-99)
--- NOTE | 2017-11-06 13:34 | P.PN ---
Subjective Progress Note Date: 11/06/17 Progress note being dictated for Dr. Church. Interval history: This is a 47-year-old female admitted with acute COPD exacerbation, acute CHF exacerbation. Maintained on nebulized bronchodilators, systemic steroids, antibiotics changed to Rocephin and Zithromax. Productive cough with brownish sputum. Sputum culture pending. Currently on 15 L high flow nasal cannula maintaining O2 sats in the mid 90s INR 2.5. Diuresing on Lasix IV push, no weight today. Afebrile, WBC decreased to 15, preliminary blood cultures negative. Objective - Vital Signs Vital signs: Vital Signs Temp 97.8 F 11/06/17 07:00 Pulse 70 11/06/17 11:16 Resp 20 11/06/17 07:00 BP 102/68 11/06/17 07:00 Pulse Ox 94 L 11/06/17 07:11 Intake & Output 11/05/17 11/06/17 11/06/17 18:59 06:59 18:59 Other: # Voids 4 1 - Exam PHYSICAL EXAM: VITAL SIGNS: As above GENERAL: Sitting up in bed, respiratory effort increased. HEENT: Conjunctivae normal. eyes normal. Oral mucosa moist. NECK: No JVD. No thyroid enlargement. No LNs CARDIOVASCULAR: S1, S2 muffled. No murmur RESPIRATION: Breath sounds diminished in the bases. Bibasilar crackles. Scattered expiratory wheezing. ABDOMEN: Soft, nontender . No guarding. no masses palpable. Bowel sounds heard. LEGS: No edema. no swelling. PSYCHIATRY: Alert and oriented -3, mood and affect normal. NERVOUS SYSTEM: Cranial N 2-12 grossly normal. Moves all 4 limbs. Diffuse weakness No focal deficits. Skin: no ulcer no rash Joints: No active swelling. No inflammation. Lymphatic system. No LN neck axilla or groin. Microbiology 11/06/17 07:35 Sputum Gram Stain - Preliminary 11/06/17 07:35 Sputum Sputum Culture - Preliminary 11/03/17 20:32 Blood Blood Culture - Preliminary No Growth after 48 hours - Labs CBC & Chem 7: 11/06/17 07:27 11/06/17 07:27 Labs: Abnormal Lab Results - Last 24 Hours (Table) 11/05/17 11/06/17 11/06/17 Range/Units 17:08 07:14 07:27 WBC (3.8-10.6) k/uL Neutrophils # (1.3-7.7) k/uL PT 22.1 H (9.0-12.0) sec INR 2.5 H (<1.2) Glucose (74-99) mg/dL POC Glucose (mg/dL) 244 H 165 H (75-99) mg/dL Calcium (8.4-10.2) mg/dL 11/06/17 11/06/17 11/06/17 Range/Units 07:27 07:27 11:57 WBC 15.0 H (3.8-10.6) k/uL Neutrophils # 12.1 H (1.3-7.7) k/uL PT (9.0-12.0) sec INR (<1.2) Glucose 149 H (74-99) mg/dL POC Glucose (mg/dL) 139 H (75-99) mg/dL Calcium 8.1 L (8.4-10.2) mg/dL Microbiology - Last 24 Hours (Table) 11/06/17 07:35 Gram Stain - Preliminary Sputum Sputum Culture - Preliminary 11/03/17 20:32 Blood Culture - Preliminary Blood No Growth after 48 hours Assessment and Plan Assessment: 1. Hypoxic hypercarbic respiratory failure secondary to acute COPD exacerbation with acute purulent tracheobronchitis or bronchopneumonia and CHF 2. Acute on chronic CHF exacerbation, diastolic dysfunction 3. History of PE, DVT 4. Hypertension 5. Ongoing nicotine dependence 6. Coumadin monitoring 7. History of Sarcoidosis Plan: Continue on current medication regime ,monitoring and symptomatic treatment. Maintain diuretics,nebulized bronchodilators, steroids and antibiotics. Weaning of oxygen in progress as per pulmonary. Strict I&O's and daily weights, CHF protocol. Further recommendations to follow. The impression and plan of care has been dictated as directed. : I performed a history and examination of this patient, discussed the same with the dictator. I agree with the dictator's note ,documented as a scribe. Any additional findings or plans will be noted.
--- NOTE | 2017-11-06 13:57 | XR ---
EXAMINATION TYPE: XR chest 1V portable DATE OF EXAM: 11/06/2017 COMPARISON: Prior chest x-ray 11/05/2017 HISTORY: Shortness of breath, lethargy TECHNIQUE: Single frontal view of the chest is obtained. FINDINGS: There is not a significant interval change. Diffuse interstitial pattern persists within t he lungs. Heart size is stable. No evident pneumothorax or pleural effusion. Lung volumes are low and the patient is rotated. IMPRESSION: Essentially stable exam.
[2017-11-06 17:20] LABS: Glucose,Whole Blood 175 mg/dL (75-99)
[2017-11-06] MEDS: BACLOFEN 10 MG TAB PO PRN (17:45)
[2017-11-06 19:55] LABS: Glucose,Whole Blood 194 mg/dL (75-99)
[2017-11-06] MEDS: MIRTAZAPINE 45 MG TABLET PO SCH (21:12)
[2017-11-06] MEDS: WARFARIN 10 MG TAB PO SCH (21:13)
[2017-11-07] MEDS: methylPREDNISolone SOD SUCCI 125 MG/2 ML VIAL IV SCH ×4 (06:14→23:45)
[2017-11-07 07:05] LABS: Glucose,Whole Blood 115 mg/dL (75-99)
[2017-11-07] MEDS: FORMOTEROL FUMARATE 20 MCG/2 ML NEBU INHALATION SCH ×2 (07:20→19:53)
[2017-11-07] MEDS: BUDESONIDE 1 MG/2 ML NEBU INHALATION SCH ×2 (07:20→19:53)
[2017-11-07] MEDS: IPRATROPIUM-ALBUTEROL 3 ML NEB INHALATION SCH ×4 (07:20→19:53)
[2017-11-07] MEDS: INSULIN ASPART 100 UNIT/ML 1 ML 10 ML VIAL SQ SCH ×4 (07:20→21:58)
[2017-11-07] MEDS: MORPHINE SULFATE ER 30 MG TABLET PO PRN ×2 (08:15→16:47)
[2017-11-07] MEDS: METOPROLOL TARTRATE 50 MG TAB PO SCH ×2 (08:15→21:52)
[2017-11-07] MEDS: POTASSIUM CHLORIDE ER 20 MEQ TAB.ER PO SCH ×2 (08:15→21:52)
[2017-11-07] MEDS: lamoTRIgine 100 MG TAB PO SCH (08:15)
[2017-11-07] MEDS: PREGABALIN 75 MG CAP PO SCH ×2 (08:15→21:51)
[2017-11-07] MEDS: PANTOPRAZOLE 40 MG TABLET PO SCH (08:15)
[2017-11-07] MEDS: guaiFENesin 600 MG TABLET.ER PO SCH ×2 (08:15→21:52)
[2017-11-07] MEDS: FLUoxetine HCL 20 MG CAP PO SCH (08:15)
[2017-11-07] MEDS: FUROSEMIDE 10 MG/ML 4 ML VIAL IV SCH ×3 (08:16→23:44)
[2017-11-07] MEDS: cefTRIAXone IN SWFI 1,000 MG/10 ML SYRINGE IVP SCH (08:16)
[2017-11-07] MEDS: busPIRone HCl 10 MG TAB PO SCH ×2 (08:16→21:52)
--- NOTE | 2017-11-07 09:54 | P.PN ---
Subjective Progress Note Date: 11/07/17 Principal diagnosis: Acute exacerbation with secondary shortness of breath 47-year-old obese female patient with known history of COPD and chronic smoking , presented to the hospital because of worsening shortness of breath over a few days duration. Apparently she had seen her primary care physician on outpatient basis and she has completed the course of Levaquin. She did not improve and she end up coming to the hospital. Chest x-ray shows no evidence of an acute pneumonia. The patient is still smoking cigarettes. She is known to me from previous hospitalization and office visits. The patient has had multiple exacerbation the past regarding COPD exacerbation. She has home oxygen 3 L/m nasal cannula. She also has known about treatments around the clock. Her chest x-ray that is to show chronic interstitial changes bilaterally and this was even seen on previous chest x-rays. No airspace disease or infiltrates or pneumonias seen. The patient has multiple medical positive comorbidities pH is on long-term and to coagulation regarding previous history of DVT and pulmonary embolism. There was also vague history of sarcoidosis that was diagnosed back in 2016 following a bronchoscopy that was done at [facility] and the patient was treated with steroids for almost a year and she ultimately dropped down the dose and stopped the steroid treatment. She has had previous MRSA pneumonia and previous streptococcal pneumonia all treated successfully. On 11/05/2017 patient seen in follow-up on medical surgical floor. Per nursing report patient is more short of breath at rest and with any exertion, and her oxygen requirements have increased she is currently on 6 L per nasal cannula, with a pulse ox between 85-88%. On sounds reveal diffuse wheezing throughout, and coarse crackles bilaterally. She denies any fever or chills while inpatient , did have some subjective fevers at home. She is coughing, and she reports her sputum is dark colored, we will collect a sputum specimen, knowing that patient did have previous MRSA pneumonia a few months ago. Today's lab work was reviewed, her WBC is increased to 18.3, hemoglobin is 13.3, INR is 2.2. Afebrile, hemodynamically stable. Reports chest tightness and wheezing, but no anginal type symptoms. Stat chest x-ray was obtained, and showed diffuse worsening interstitial opacities, trace left pleural effusion. We will give the patient 1 dose of IV Lasix 40 mg, patient is already on oral diuretics in the form of Bumex. She will be switched to high flow nasal cannula, and FiO2 to be titrated to keep her pulse ox between 90 and 92%. A dose of oral Xanax was given, breathing treatments were administered. Patient is on empiric antibiotics in the form of Levaquin, we will add Pulmicort and Perforomist. On 11/06/2017 patient seen again in follow-up on medical surgical floor. She is currently on 15 L per high flow nasal cannula, and her pulse ox is between 94 -96%, she is in no acute distress, she is complaining of severe coughing spells , and she is now able to bring up brown colored sputum, specimen was sent to the lab for culture. Patient has been afebrile since admission, hemodynamically stable. Patient was started on IV diuretics, currently at 40 mg every 8 hours, diuresing. We'll obtain repeat chest x-ray today. Patient received Levaquin initially, now has been switched to Zithromax and Rocephin. Blood cultures remain negative. Lung sounds reveal diffuse wheezing, minimal crackles at the right lower lobe. On 11/07/2017 patient seen in follow-up on medical surgical floor. Is sitting comfortably in bed, in no acute distress, FiO2 has been cut back to 13 L per high flow nasal cannula, and her pulse ox is 94%. We will decrease it further to 11 L, continue to monitor O2 saturations. Patient is afebrile, hemodynamically stable, continues to diurese, remains on IV diuretics with Lasix 40 mg every 8 hours, will obtain a chest x-ray today. Remains on empiric antibiotics In the form of Zithromax and Rocephin, blood and sputum cultures are negative. No fever, no chills. No chest wall tenderness, patient is bringing up dark brown colored sputum. We'll continue current medical treatment. Objective - Vital Signs Vital signs: Vital Signs Temp 97.6 F 11/07/17 05:00 Pulse 84 11/07/17 07:38 Resp 16 11/07/17 05:00 BP 122/73 11/07/17 05:00 Pulse Ox 94 L 11/07/17 05:00 Intake & Output 11/06/17 11/07/17 11/07/17 18:59 06:59 18:59 Intake Total 250 590 Balance 250 590 Weight 104.5 kg Intake: Intake, IV Titration 250 Amount Azithromycin 500 mg In 250 Dextrose 5% in Water 250 ml @ 125 mls/hr IVPB DAILY [facility] Rx#:[id number] Oral 590 Other: Voiding Method Toilet Toilet # Voids 1 # Bowel Movements 2 - Exam GENERAL EXAM: Alert, pleasant, obese 47-year-old white female in no distress, currently on 15 L per nasal cannula with a pulse ox between 94-95%. EYES: Normal reaction of pupils, equal size. Conjunctiva pink, sclera white. NOSE: Clear with pink turbinates. THROAT: No erythema or exudates. NECK: No masses, no JVD, no thyroid enlargement, no adenopathy. CHEST: No chest wall deformity. Symmetrical expansion. LUNGS: Lung sounds are diminished, diffuse crackles at bilateral bases CVS: Regular rate and rhythm, normal S1 and S2, no gallops, no murmurs, no rubs ABDOMEN: Soft, nontender. No hepatosplenomegaly, normal bowel sounds, no guarding or rigidity. EXTREMITIES: No clubbing, no edema, no cyanosis, 2+ pulses and upper and lower extremities. MUSCULOSKELETAL: Muscle strength and tone normal. SPINE: No scoliosis or deformity SKIN: No rashes CENTRAL NERVOUS SYSTEM: Alert and oriented -3. No focal deficits, tone is normal in all 4 extremities. PSYCHIATRIC: Alert and oriented -3. Appropriate affect. Intact judgment and insight. - Labs CBC & Chem 7: 11/06/17 07:27 11/06/17 07:27 Labs: Abnormal Lab Results - Last 24 Hours (Table) 11/06/17 11/06/17 11/06/17 Range/Units 11:57 17:18 19:53 POC Glucose (mg/dL) 139 H 175 H 194 H (75-99) mg/dL 11/07/17 Range/Units 07:03 POC Glucose (mg/dL) 115 H (75-99) mg/dL Microbiology - Last 24 Hours (Table) 11/03/17 20:32 Blood Culture - Preliminary Blood No Growth after 72 hours 11/06/17 07:35 Gram Stain - Final Sputum Sputum Culture - Final Assessment and Plan Plan: Assessment: #1. Acute COPD exacerbation with secondary shortness of breath. The patient was treated for symptoms of bronchitis on outpatient basis and she has completed course of Levaquin. She is coming in for ongoing dyspnea cough chest tightness and wheezing. Chest x-ray shows a background of mild chronic interstitial fibrosis, an area of an infiltrate on the right noted, and this could be another medicine that her previous sarcoidosis that she was diagnosed several years back. On 11/05/2017 patient no follow-up, more dyspneic on today's exam, FiO2 requirements increased, patient was placed on high flow nasal cannula at 15 L. Today's chest x-ray shows worsening interstitial edema and small left pleural effusion, patient will be given a dose of IV Lasix in addition to her oral BuMex. Patient is diffusely wheezy, she remains on IV steroids at 60 mg every 6 hours, remains on nebulized bronchodilators, we will add Pulmicort and Perforomist, remains on empiric antibiotics in the form of Levaquin. On 11/06/2017 patient is currently on 15 L per high flow nasal cannula, with a pulse ox between 94-96%. In no acute distress, starting to bring up brown colored phlegm, it was sent for culture. Blood cultures remain negative, antibiotics have been switched from Levaquin to azithromycin and Rocephin. She continues on IV diuretics, will update repeat chest x-ray today, afebrile, hemodynamically stable. On 11/07/2017 patient seen in follow-up on medical surgical floor. FiO2 down to 11 L per high flow nasal cannula, continue to wean to keep her pulse ox between 90-92%. Continues to bring up brown colored sputum, so far blood cultures and sputum cultures are negative, afebrile, stable vitals. Continues on IV diuretics, we'll obtain follow-up chest x-ray today. #2. Previous hospitalization for bilateral MRSA pneumonia, discharged home on 04/18/2017 #3. Chronic hypoxic respiratory failure secondary to above #4. Sarcoidosis, confirmed by lung biopsy at [facility] 2014, treated with systemic steroids that was ultimately weaned off and discontinued #5. History of pulmonary embolisms in 2011, 2016, DVTs, currently on anticoagulation with Coumadin, her INR is therapeutic today, at 2.5, on 2017 #6. Nicotine addiction, ongoing, currently down to 2 cigarettes per day, carries over [id number] smoking history #7. Obesity with features of obstructive sleep apnea #8. Anxiety #9. CAD, history of myocardial infarction #10. Recurrent hospitalizations for respiratory complications #11. Bipolar disorder #12. Degenerative disc disease #13. Hypertension #14 hyperlipidemia #15 fibromyalgia Plan We'll obtain a follow-up chest x-ray today, and continue IV diuretics for now, lung sounds are improving, Fio2 is being weaned down, cultures remain negative, continue current antibiotic coverage. I performed a history & physical examination of the patient and discussed their management with my nurse practitioner, Cydney Hart. I reviewed the nurse practitioner's note and agree with the documented findings and plan of care. Lung sounds are positive for diffuse crackles throughout the lung diana. The findings and the impression was discussed with the patient. I attest to the documentation by the nurse practitioner. Time with Patient: Less than 30
[2017-11-07] MEDS: guaiFENesin-DM 100-10MG/5ML 10 ML CUP PO PRN ×2 (10:15→16:47)
[2017-11-07 10:25] LABS: Basophils % (A) 0 %; Eosinophils # (A) 0.1 k/uL (0-0.7); Eosinophils % (A) 1 %; HCT 44.8 % (34.0-46.0); HGB 14.8 gm/dL (11.4-16.0); Lymphocytes # (A) 2.6 k/uL (1.0-4.8); Lymphocytes % (A) 16 %; MCH 29.9 pg (25.0-35.0); MCV 90.6 fL (80.0-100.0); Mean Platelet Volume 6.9; Monocytes # (A) 1.1 k/uL (0-1.0); Monocytes % (A) 7 %; Neutrophils # (A) 12.1 k/uL (1.3-7.7); Neutrophils % (A) 75 %; Platelet Count 282 k/uL (150-450); RBC 4.95 m/uL (3.80-5.40); RDW 13.2 % (11.5-15.5); WBC 16.1 k/uL (3.8-10.6)
[2017-11-07 10:28] LABS: INR 2.9 (<1.2); Prothrombin Time 26.4 sec (9.0-12.0)
[2017-11-07 10:42] LABS: Anion Gap 6 mmol/L; Blood Urea Nitrogen 19 mg/dL (7-17); Calcium 8.4 mg/dL (8.4-10.2); Carbon Dioxide 30 mmol/L (22-30); Chloride 101 mmol/L (98-107); Glucose 96 mg/dL (74-99); Potassium 4.3 mmol/L (3.5-5.1); Sodium 137 mmol/L (137-145)
[2017-11-07] MEDS: BUTALB/APAP/CAFF 50-325-40MG TAB PO PRN ×2 (11:13→19:44)
[2017-11-07] MEDS: ALPRAZolam 0.5 MG TAB PO PRN ×2 (11:14→19:45)
[2017-11-07 11:47] LABS: Glucose,Whole Blood 124 mg/dL (75-99)
--- NOTE | 2017-11-07 13:53 | P.PN ---
Subjective Progress Note Date: 11/07/17 Progress note being dictated for Dr. Church. Interval history: This is a 47-year-old female admitted with acute COPD exacerbation, acute CHF exacerbation. Maintained on nebulized bronchodilators, systemic steroids, antibiotics changed to Rocephin and Zithromax. Productive cough with brownish sputum. Sputum culture pending. Currently on 15 L high flow nasal cannula maintaining O2 sats in the mid 90s INR 2.5. Diuresing on Lasix IV push, no weight today. Afebrile, WBC decreased to 15, preliminary blood cultures negative. 11/07/17 breathing slowly improving, oxygen weaning in progress. High flow nasal cannula down to 11 L with O2 sats in the low 90s, but with minimal activity desats, into the 80s. Reports minimal sputum production, brownish thick. Afebrile, WBC 16. Sputum culture reporting contamination. Blood culture negative INR 2.9. Objective - Vital Signs Vital signs: Vital Signs Temp 97.6 F 11/07/17 05:00 Pulse 87 11/07/17 11:33 Resp 16 11/07/17 05:00 BP 122/73 11/07/17 05:00 Pulse Ox 94 L 11/07/17 05:00 Intake & Output 11/06/17 11/07/17 11/07/17 18:59 06:59 18:59 Intake Total 250 590 Balance 250 590 Weight 104.5 kg Intake: Intake, IV Titration 250 Amount Azithromycin 500 mg In 250 Dextrose 5% in Water 250 ml @ 125 mls/hr IVPB DAILY [facility] Rx#:[id number] Oral 590 Other: Voiding Method Toilet Toilet # Voids 1 # Bowel Movements 2 - Exam PHYSICAL EXAM: VITAL SIGNS: As above GENERAL: Sitting up in bed, respiratory effort increased. HEENT: Conjunctivae normal. eyes normal. Oral mucosa moist. NECK: No JVD. No thyroid enlargement. No LNs CARDIOVASCULAR: S1, S2 muffled. No murmur RESPIRATION: Breath sounds diminished in the bases, minimal improvement in aeration. Fine diffuse Bibasilar crackles. Scattered expiratory wheezing. ABDOMEN: Soft, nontender . No guarding. no masses palpable. Bowel sounds heard. LEGS: No edema. no swelling. PSYCHIATRY: Alert and oriented -3, mood and affect normal. NERVOUS SYSTEM: Cranial N 2-12 grossly normal. Moves all 4 limbs. Diffuse weakness No focal deficits. Skin: no ulcer no rash Joints: No active swelling. No inflammation. Lymphatic system. No LN neck axilla or groin. Microbiology 11/03/17 20:32 Blood Blood Culture - Preliminary No Growth after 72 hours 11/06/17 07:35 Sputum Gram Stain - Final 11/06/17 07:35 Sputum Sputum Culture - Final - Labs CBC & Chem 7: 11/07/17 07:11 11/07/17 07:11 Labs: Abnormal Lab Results - Last 24 Hours (Table) 11/06/17 11/06/17 11/06/17 Range/Units 11:57 17:18 19:53 WBC (3.8-10.6) k/uL Neutrophils # (1.3-7.7) k/uL Monocytes # (0-1.0) k/uL PT (9.0-12.0) sec INR (<1.2) BUN (7-17) mg/dL POC Glucose (mg/dL) 139 H 175 H 194 H (75-99) mg/dL 11/07/17 11/07/17 11/07/17 Range/Units 07:03 07:11 07:11 WBC 16.1 H (3.8-10.6) k/uL Neutrophils # 12.1 H (1.3-7.7) k/uL Monocytes # 1.1 H (0-1.0) k/uL PT 26.4 H (9.0-12.0) sec INR 2.9 H (<1.2) BUN (7-17) mg/dL POC Glucose (mg/dL) 115 H (75-99) mg/dL 11/07/17 11/07/17 Range/Units 07:11 11:46 WBC (3.8-10.6) k/uL Neutrophils # (1.3-7.7) k/uL Monocytes # (0-1.0) k/uL PT (9.0-12.0) sec INR (<1.2) BUN 19 H (7-17) mg/dL POC Glucose (mg/dL) 124 H (75-99) mg/dL Microbiology - Last 24 Hours (Table) 11/03/17 20:32 Blood Culture - Preliminary Blood No Growth after 72 hours 11/06/17 07:35 Gram Stain - Final Sputum Sputum Culture - Final Assessment and Plan Assessment: 1. Hypoxic hypercarbic respiratory failure secondary to acute COPD exacerbation with acute purulent tracheobronchitis or bronchopneumonia and CHF 2. Acute on chronic CHF exacerbation, diastolic dysfunction 3. History of PE, DVT 4. Hypertension 5. Ongoing nicotine dependence 6. Coumadin monitoring 7. History of Sarcoidosis Plan: Continue on current medication regime ,monitoring and symptomatic treatment. Maintain diuretics,nebulized bronchodilators, steroids and antibiotics. Flutter valve and chest PT if okay with pulmonary. Strict I&O's and daily weights, CHF protocol. Further recommendations to follow. The impression and plan of care has been dictated as directed. : I performed a history and examination of this patient, discussed the same with the dictator. I agree with the dictator's note ,documented as a scribe. Any additional findings or plans will be noted.
[2017-11-07] MEDS: AZITHROMYCIN 500 MG TAB PO SCH (15:20)
[2017-11-07] MEDS: DOCUSATE 100 MG CAP PO SCH ×2 (15:20→21:52)
[2017-11-07] MEDS: NYSTATIN 100,000 UNIT/GM POWD 15 GM TOPICAL SCH ×2 (15:20→21:52)
[2017-11-07] MEDS: SENNOSIDES-DOCUSATE SODIUM 1 EACH TAB PO SCH ×2 (15:20→21:51)
--- NOTE | 2017-11-07 15:21 | XR ---
EXAMINATION TYPE: XR chest 1V portable DATE OF EXAM: 11/07/2017 COMPARISON: 11/06/2017 INDICATION: CHF TECHNIQUE: Single frontal view of the chest is obtained. FINDINGS: The heart size is normal. The pulmonary vasculature remains prominent. Mild diffuse increased lung markings are present slightly greater on the left. Findings are similar t o comparison. Edema likely remains present. IMPRESSION: 1. Stable pulmonary edema.
[2017-11-07 17:38] LABS: Glucose,Whole Blood 157 mg/dL (75-99)
[2017-11-07 20:08] LABS: Glucose,Whole Blood 124 mg/dL (75-99)
[2017-11-07] MEDS: WARFARIN 10 MG TAB PO SCH (21:51)
[2017-11-07] MEDS: MIRTAZAPINE 45 MG TABLET PO SCH (21:51)
[2017-11-07] MEDS: HYDROcodone/APAP 5-325MG 1 EACH TAB PO PRN (21:57)
[2017-11-07] MEDS: BACLOFEN 10 MG TAB PO PRN (22:43)
[2017-11-08] MEDS: methylPREDNISolone SOD SUCCI 125 MG/2 ML VIAL IV SCH ×3 (05:31→18:08)
[2017-11-08 07:00] LABS: Glucose,Whole Blood 141 mg/dL (75-99)
[2017-11-08] MEDS: lamoTRIgine 100 MG TAB PO SCH (07:31)
[2017-11-08] MEDS: PREGABALIN 75 MG CAP PO SCH ×2 (07:31→22:24)
[2017-11-08] MEDS: INSULIN ASPART 100 UNIT/ML 1 ML 10 ML VIAL SQ SCH ×4 (07:31→22:06)
[2017-11-08] MEDS: SENNOSIDES-DOCUSATE SODIUM 1 EACH TAB PO SCH ×2 (07:31→22:25)
[2017-11-08] MEDS: POTASSIUM CHLORIDE ER 20 MEQ TAB.ER PO SCH ×2 (07:32→22:10)
[2017-11-08] MEDS: guaiFENesin 600 MG TABLET.ER PO SCH ×2 (07:32→22:06)
[2017-11-08] MEDS: busPIRone HCl 10 MG TAB PO SCH ×2 (07:32→22:05)
[2017-11-08] MEDS: PANTOPRAZOLE 40 MG TABLET PO SCH (07:32)
[2017-11-08] MEDS: METOPROLOL TARTRATE 50 MG TAB PO SCH ×2 (07:32→22:07)
[2017-11-08] MEDS: FLUoxetine HCL 20 MG CAP PO SCH (07:32)
[2017-11-08] MEDS: AZITHROMYCIN 500 MG TAB PO SCH (07:32)
[2017-11-08] MEDS: DOCUSATE 100 MG CAP PO SCH ×2 (07:33→22:05)
[2017-11-08] MEDS: FUROSEMIDE 10 MG/ML 4 ML VIAL IV SCH ×2 (07:33→16:08)
[2017-11-08 07:39] LABS: Basophils % (A) 0 %; Eosinophils # (A) 0.1 k/uL (0-0.7); Eosinophils % (A) 1 %; HCT 44.6 % (34.0-46.0); HGB 14.5 gm/dL (11.4-16.0); Lymphocytes # (A) 1.6 k/uL (1.0-4.8); Lymphocytes % (A) 13 %; MCH 29.6 pg (25.0-35.0); MCHC 32.5 g/dL (31.0-37.0); MCV 90.9 fL (80.0-100.0); Mean Platelet Volume 6.4; Monocytes # (A) 0.4 k/uL (0-1.0); Monocytes % (A) 4 %; Neutrophils # (A) 9.8 k/uL (1.3-7.7); Neutrophils % (A) 82 %; Platelet Count 296 k/uL (150-450); RBC 4.91 m/uL (3.80-5.40)
[2017-11-08] MEDS: MORPHINE SULFATE ER 30 MG TABLET PO PRN ×2 (07:43→16:07)
[2017-11-08 07:46] LABS: Prothrombin Time 27.3 sec (9.0-12.0)
[2017-11-08 08:03] LABS: Anion Gap 5 mmol/L; Blood Urea Nitrogen 19 mg/dL (7-17); Calcium 8.9 mg/dL (8.4-10.2); Carbon Dioxide 30 mmol/L (22-30); Chloride 102 mmol/L (98-107); Glucose 130 mg/dL (74-99); Potassium 4.4 mmol/L (3.5-5.1); Sodium 137 mmol/L (137-145)
[2017-11-08] MEDS: FORMOTEROL FUMARATE 20 MCG/2 ML NEBU INHALATION SCH ×2 (09:17→19:43)
[2017-11-08] MEDS: BUDESONIDE 1 MG/2 ML NEBU INHALATION SCH ×2 (09:17→19:43)
[2017-11-08] MEDS: IPRATROPIUM-ALBUTEROL 3 ML NEB INHALATION SCH ×4 (09:18→19:43)
[2017-11-08] MEDS: ALPRAZolam 0.5 MG TAB PO PRN ×2 (09:33→18:14)
[2017-11-08] MEDS: cefTRIAXone IN SWFI 1,000 MG/10 ML SYRINGE IVP SCH ×2 (09:33→09:50)
[2017-11-08] MEDS: BUTALB/APAP/CAFF 50-325-40MG TAB PO PRN ×2 (09:43→14:16)
[2017-11-08] MEDS: NYSTATIN 100,000 UNIT/GM POWD 15 GM TOPICAL SCH ×2 (09:50→22:10)
[2017-11-08 11:44] LABS: Glucose,Whole Blood 147 mg/dL (75-99)
[2017-11-08] MEDS: HYDROcodone/APAP 5-325MG 1 EACH TAB PO PRN ×2 (11:51→18:14)
[2017-11-08] MEDS: BACLOFEN 10 MG TAB PO PRN (13:31)
--- NOTE | 2017-11-08 13:39 | XR ---
EXAMINATION TYPE: XR chest 2V DATE OF EXAM: 11/08/2017 COMPARISON: Chest x-ray from yesterday and older studies. HISTORY: Pneumonia and respiratory failure progress study. TECHNIQUE: Frontal and lateral views of the chest are obtained. FINDINGS: Reticular interstitial prominence is improving. There is no new suspicious focal air space opacity, pleural effusion, or pneumothorax seen. Low lung volumes with elevated left hemidiaphragm i s redemonstrated. The cardiac silhouette size is within normal limits. The osseous structures are i ntact. IMPRESSION: Improving bilateral interstitial edema. No new acute infiltrate.
--- NOTE | 2017-11-08 14:02 | P.PN ---
Subjective Progress Note Date: 11/08/17 Principal diagnosis: Acute exacerbation with secondary shortness of breath 47-year-old obese female patient with known history of COPD and chronic smoking , presented to the hospital because of worsening shortness of breath over a few days duration. Apparently she had seen her primary care physician on outpatient basis and she has completed the course of Levaquin. She did not improve and she end up coming to the hospital. Chest x-ray shows no evidence of an acute pneumonia. The patient is still smoking cigarettes. She is known to me from previous hospitalization and office visits. The patient has had multiple exacerbation the past regarding COPD exacerbation. She has home oxygen 3 L/m nasal cannula. She also has known about treatments around the clock. Her chest x-ray that is to show chronic interstitial changes bilaterally and this was even seen on previous chest x-rays. No airspace disease or infiltrates or pneumonias seen. The patient has multiple medical positive comorbidities pH is on long-term and to coagulation regarding previous history of DVT and pulmonary embolism. There was also vague history of sarcoidosis that was diagnosed back in 2015 following a bronchoscopy that was done at [facility] and the patient was treated with steroids for almost a year and she ultimately dropped down the dose and stopped the steroid treatment. She has had previous MRSA pneumonia and previous streptococcal pneumonia all treated successfully. On 11/05/2017 patient seen in follow-up on medical surgical floor. Per nursing report patient is more short of breath at rest and with any exertion, and her oxygen requirements have increased she is currently on 6 L per nasal cannula, with a pulse ox between 85-88%. On sounds reveal diffuse wheezing throughout, and coarse crackles bilaterally. She denies any fever or chills while inpatient , did have some subjective fevers at home. She is coughing, and she reports her sputum is dark colored, we will collect a sputum specimen, knowing that patient did have previous MRSA pneumonia a few months ago. Today's lab work was reviewed, her WBC is increased to 18.3, hemoglobin is 13.3, INR is 2.2. Afebrile, hemodynamically stable. Reports chest tightness and wheezing, but no anginal type symptoms. Stat chest x-ray was obtained, and showed diffuse worsening interstitial opacities, trace left pleural effusion. We will give the patient 1 dose of IV Lasix 40 mg, patient is already on oral diuretics in the form of Bumex. She will be switched to high flow nasal cannula, and FiO2 to be titrated to keep her pulse ox between 90 and 92%. A dose of oral Xanax was given, breathing treatments were administered. Patient is on empiric antibiotics in the form of Levaquin, we will add Pulmicort and Perforomist. On 11/06/2017 patient seen again in follow-up on medical surgical floor. She is currently on 15 L per high flow nasal cannula, and her pulse ox is between 94 -96%, she is in no acute distress, she is complaining of severe coughing spells , and she is now able to bring up brown colored sputum, specimen was sent to the lab for culture. Patient has been afebrile since admission, hemodynamically stable. Patient was started on IV diuretics, currently at 40 mg every 8 hours, diuresing. We'll obtain repeat chest x-ray today. Patient received Levaquin initially, now has been switched to Zithromax and Rocephin. Blood cultures remain negative. Lung sounds reveal diffuse wheezing, minimal crackles at the right lower lobe. On 11/07/2017 patient seen in follow-up on medical surgical floor. Is sitting comfortably in bed, in no acute distress, FiO2 has been cut back to 13 L per high flow nasal cannula, and her pulse ox is 94%. We will decrease it further to 11 L, continue to monitor O2 saturations. Patient is afebrile, hemodynamically stable, continues to diurese, remains on IV diuretics with Lasix 40 mg every 8 hours, will obtain a chest x-ray today. Remains on empiric antibiotics In the form of Zithromax and Rocephin, blood and sputum cultures are negative. No fever, no chills. No chest wall tenderness, patient is bringing up dark brown colored sputum. We'll continue current medical treatment. On 11/08/2017 patient seen in follow-up on medical surgical floor, FiO2 requirement is down to 6 L per nasal cannula, has no fever or chills, still bringing up some thick brown colored sputum, and they are difficult to clear at times. Percussion and vibration, and flutter valve were added, with some improvement. Blood and sputum cultures remain negative, patient remains on antibiotic coverage in the form of Zithromax and Rocephin. Sharif on IV diuretics, weight is down by 2.5 kg in the last 24 hours, follow-up chest x-ray shows improving bilateral interstitial edema. Objective - Vital Signs Vital signs: Vital Signs Temp 96.9 F L 11/08/17 05:00 Pulse 72 11/08/17 13:43 Resp 16 11/08/17 08:50 BP 110/72 11/08/17 05:00 Pulse Ox 93 L 11/08/17 05:00 Intake & Output 11/07/17 11/08/17 11/08/17 18:59 06:59 18:59 Intake Total 460 270 100 Output Total 1000 Balance 460 270 -900 Weight 102 kg Intake: Oral 460 270 100 Output: Urine 1000 Other: Voiding Method Toilet Toilet # Voids 1 - Exam GENERAL EXAM: Alert, pleasant, obese 47-year-old white female in no distress, currently on 6 L per nasal cannula with a pulse ox between 94-95%. EYES: Normal reaction of pupils, equal size. Conjunctiva pink, sclera white. NOSE: Clear with pink turbinates. THROAT: No erythema or exudates. NECK: No masses, no JVD, no thyroid enlargement, no adenopathy. CHEST: No chest wall deformity. Symmetrical expansion. LUNGS: Lung sounds are diminished, diffuse crackles at bilateral bases CVS: Regular rate and rhythm, normal S1 and S2, no gallops, no murmurs, no rubs ABDOMEN: Soft, nontender. No hepatosplenomegaly, normal bowel sounds, no guarding or rigidity. EXTREMITIES: No clubbing, no edema, no cyanosis, 2+ pulses and upper and lower extremities. MUSCULOSKELETAL: Muscle strength and tone normal. SPINE: No scoliosis or deformity SKIN: No rashes CENTRAL NERVOUS SYSTEM: Alert and oriented -3. No focal deficits, tone is normal in all 4 extremities. PSYCHIATRIC: Alert and oriented -3. Appropriate affect. Intact judgment and insight. - Labs CBC & Chem 7: 11/08/17 07:06 11/08/17 07:06 Labs: Abnormal Lab Results - Last 24 Hours (Table) 11/07/17 11/07/17 11/08/17 Range/Units 17:17 20:07 06:58 WBC (3.8-10.6) k/uL Neutrophils # (1.3-7.7) k/uL PT (9.0-12.0) sec INR (<1.2) BUN (7-17) mg/dL Glucose (74-99) mg/dL POC Glucose (mg/dL) 157 H 124 H 141 H (75-99) mg/dL 11/08/17 11/08/17 11/08/17 Range/Units 07:06 07:06 07:06 WBC 12.0 H (3.8-10.6) k/uL Neutrophils # 9.8 H (1.3-7.7) k/uL PT 27.3 H (9.0-12.0) sec INR 3.0 H (<1.2) BUN 19 H (7-17) mg/dL Glucose 130 H (74-99) mg/dL POC Glucose (mg/dL) (75-99) mg/dL 11/08/17 Range/Units 11:43 WBC (3.8-10.6) k/uL Neutrophils # (1.3-7.7) k/uL PT (9.0-12.0) sec INR (<1.2) BUN (7-17) mg/dL Glucose (74-99) mg/dL POC Glucose (mg/dL) 147 H (75-99) mg/dL Microbiology - Last 24 Hours (Table) 11/03/17 20:32 Blood Culture - Preliminary Blood No Growth after 96 hours Assessment and Plan Plan: Assessment: #1. Acute COPD exacerbation with secondary shortness of breath. The patient was treated for symptoms of bronchitis on outpatient basis and she has completed course of Levaquin. She is coming in for ongoing dyspnea cough chest tightness and wheezing. Chest x-ray shows a background of mild chronic interstitial fibrosis, an area of an infiltrate on the right noted, and this could be another medicine that her previous sarcoidosis that she was diagnosed several years back. On 11/05/2017 patient no follow-up, more dyspneic on today's exam, FiO2 requirements increased, patient was placed on high flow nasal cannula at 15 L. Today's chest x-ray shows worsening interstitial edema and small left pleural effusion, patient will be given a dose of IV Lasix in addition to her oral BuMex. Patient is diffusely wheezy, she remains on IV steroids at 60 mg every 6 hours, remains on nebulized bronchodilators, we will add Pulmicort and Perforomist, remains on empiric antibiotics in the form of Levaquin. On 11/06/2017 patient is currently on 15 L per high flow nasal cannula, with a pulse ox between 94-96%. In no acute distress, starting to bring up brown colored phlegm, it was sent for culture. Blood cultures remain negative, antibiotics have been switched from Levaquin to azithromycin and Rocephin. She continues on IV diuretics, will update repeat chest x-ray today, afebrile, hemodynamically stable. On 11/07/2017 patient seen in follow-up on medical surgical floor. FiO2 down to 11 L per high flow nasal cannula, continue to wean to keep her pulse ox between 90-92%. Continues to bring up brown colored sputum, so far blood cultures and sputum cultures are negative, afebrile, stable vitals. Continues on IV diuretics, we'll obtain follow-up chest x-ray today. On 11/08/2017 patient seen in follow-up #2. Previous hospitalization for bilateral MRSA pneumonia, discharged home on 04/18/2017 #3. Chronic hypoxic respiratory failure secondary to above #4. Sarcoidosis, confirmed by lung biopsy at [facility] 2014, treated with systemic steroids that was ultimately weaned off and discontinued #5. History of pulmonary embolisms in 2011, 2016, DVTs, currently on anticoagulation with Coumadin, her INR is therapeutic today, at 2.5, on 2017 #6. Nicotine addiction, ongoing, currently down to 2 cigarettes per day, carries over [id number] smoking history #7. Obesity with features of obstructive sleep apnea #8. Anxiety #9. CAD, history of myocardial infarction #10. Recurrent hospitalizations for respiratory complications #11. Bipolar disorder #12. Degenerative disc disease #13. Hypertension #14 hyperlipidemia #15 fibromyalgia Plan Continue current antibiotic coverage, continue IV steroids, and nebulized bronchodilators. We will schedule the patient for bronchoscopy with BAL tomorrow. His chest x-ray shows improving interstitial edema, FiO2 requirements are decreasing, patient clinically is improving. Still has some trouble clearing thick secretions. I performed a history & physical examination of the patient and discussed their management with my nurse practitioner, Cydney Hart. I reviewed the nurse practitioner's note and agree with the documented findings and plan of care. Lung sounds are positive for diminished breath sounds, with some rhonchi. The findings and the impression was discussed with the patient. I attest to the documentation by the nurse practitioner. Time with Patient: Less than 30
[2017-11-08] MEDS: guaiFENesin-DM 100-10MG/5ML 10 ML CUP PO PRN ×2 (14:21→22:11)
[2017-11-08] MEDS: LORazepam 2 MG/ML INJ IV PRN ×2 (16:18→22:10)
--- NOTE | 2017-11-08 16:30 | P.PN ---
Subjective Progress Note Date: 11/08/17 Progress note being dictated for Dr. Church. Interval history: This is a 47-year-old female admitted with acute COPD exacerbation, acute CHF exacerbation. Maintained on nebulized bronchodilators, systemic steroids, antibiotics changed to Rocephin and Zithromax. Productive cough with brownish sputum. Sputum culture pending. Currently on 15 L high flow nasal cannula maintaining O2 sats in the mid 90s INR 2.5. Diuresing on Lasix IV push, no weight today. Afebrile, WBC decreased to 15, preliminary blood cultures negative. 11/07/17 breathing slowly improving, oxygen weaning in progress. High flow nasal cannula down to 11 L with O2 sats in the low 90s, but with minimal activity desats, into the 80s. Reports minimal sputum production, brownish thick. Afebrile, WBC 16. Sputum culture reporting contamination. Blood culture negative INR 2.9. 11/08/17 maintained on nebulized bronchodilators, Zithromax, Rocephin, IV diuretics .diuresing well on Lasix IV push with 24-hour I&O reflecting a negative fluid balance, decreased weight chest x-ray reporting improving bilateral interstitial edema with no new acute infiltrate. Flutter valve and chest PT added to treatment regimen yesterday. Breathing slowly improving, oxygen weaned down to 6 L nasal cannula. Continues to have thick brown sputum. Scheduled for bronchoscopy tomorrow. Objective - Vital Signs Vital signs: Vital Signs Temp 97.1 F L 11/08/17 15:31 Pulse 69 11/08/17 15:54 Resp 16 11/08/17 15:54 BP 110/66 11/08/17 15:31 Pulse Ox 94 L 11/08/17 15:31 Intake & Output 11/07/17 11/08/17 11/08/17 18:59 06:59 18:59 Intake Total 460 270 100 Output Total 1000 Balance 460 270 -900 Weight 102 kg Intake: Oral 460 270 100 Output: Urine 1000 Other: Voiding Method Toilet Toilet # Voids 1 - Exam PHYSICAL EXAM: VITAL SIGNS: As above GENERAL: Sitting up in bed, respiratory effort increased. HEENT: Conjunctivae normal. eyes normal. Oral mucosa moist. NECK: No JVD. No thyroid enlargement. No LNs CARDIOVASCULAR: S1, S2 muffled. No murmur RESPIRATION: Breath sounds diminished in the bases, minimal improvement in aeration. Fine diffuse Bibasilar crackles. ABDOMEN: Soft, nontender . No guarding. no masses palpable. Bowel sounds heard. LEGS: No edema. no swelling. PSYCHIATRY: Alert and oriented -3, mood and affect normal. NERVOUS SYSTEM: Cranial N 2-12 grossly normal. Moves all 4 limbs. Diffuse weakness No focal deficits. Microbiology 11/03/17 20:32 Blood Blood Culture - Preliminary No Growth after 96 hours 11/06/17 07:35 Sputum Gram Stain - Final 11/06/17 07:35 Sputum Sputum Culture - Final - Labs CBC & Chem 7: 11/08/17 07:06 11/08/17 07:06 Labs: Abnormal Lab Results - Last 24 Hours (Table) 11/07/17 11/07/17 11/08/17 Range/Units 17:17 20:07 06:58 WBC (3.8-10.6) k/uL Neutrophils # (1.3-7.7) k/uL PT (9.0-12.0) sec INR (<1.2) BUN (7-17) mg/dL Glucose (74-99) mg/dL POC Glucose (mg/dL) 157 H 124 H 141 H (75-99) mg/dL 11/08/17 11/08/17 11/08/17 Range/Units 07:06 07:06 07:06 WBC 12.0 H (3.8-10.6) k/uL Neutrophils # 9.8 H (1.3-7.7) k/uL PT 27.3 H (9.0-12.0) sec INR 3.0 H (<1.2) BUN 19 H (7-17) mg/dL Glucose 130 H (74-99) mg/dL POC Glucose (mg/dL) (75-99) mg/dL 11/08/17 Range/Units 11:43 WBC (3.8-10.6) k/uL Neutrophils # (1.3-7.7) k/uL PT (9.0-12.0) sec INR (<1.2) BUN (7-17) mg/dL Glucose (74-99) mg/dL POC Glucose (mg/dL) 147 H (75-99) mg/dL Microbiology - Last 24 Hours (Table) 11/03/17 20:32 Blood Culture - Preliminary Blood No Growth after 96 hours Assessment and Plan Assessment: 1. Hypoxic hypercarbic respiratory failure secondary to acute COPD exacerbation with acute purulent tracheobronchitis or bronchopneumonia and CHF 2. Acute on chronic CHF exacerbation, diastolic dysfunction 3. History of PE, DVT 4. Hypertension 5. Ongoing nicotine dependence 6. Coumadin monitoring 7. History of Sarcoidosis Plan: Continue on current medication regime ,monitoring and symptomatic treatment. Maintain flutter valve and chest PT. continue on diuretics, nebulized bronchodilators, steroids and antibiotics. CHF protocol. Pulmonary discussing bronchoscopy tomorrow. Follow closely with pulmonary. Further recommendations to follow. The impression and plan of care has been dictated as directed. : I performed a history and examination of this patient, discussed the same with the dictator. I agree with the dictator's note ,documented as a scribe. Any additional findings or plans will be noted.
[2017-11-08 16:40] LABS: Glucose,Whole Blood 152 mg/dL (75-99)
[2017-11-08] MEDS ORDERED: WARFARIN 7.5 MG TAB PO SCH (18:00)
[2017-11-08 20:16] LABS: Glucose,Whole Blood 181 mg/dL (75-99)
[2017-11-08] MEDS: MIRTAZAPINE 45 MG TABLET PO SCH (22:09)
[2017-11-09] MEDS: methylPREDNISolone SOD SUCCI 125 MG/2 ML VIAL IV SCH ×5 (01:34→23:46)
[2017-11-09] MEDS: FUROSEMIDE 10 MG/ML 4 ML VIAL IV SCH ×4 (01:34→23:47)
[2017-11-09] MEDS: LACTATED RINGERS 1,000 ML IV SCH ×2 (01:40→23:25)
[2017-11-09] MEDS: LORazepam 2 MG/ML INJ IV PRN ×4 (05:34→23:57)
[2017-11-09 07:03] LABS: Glucose,Whole Blood 174 mg/dL (75-99)
[2017-11-09] MEDS: BUDESONIDE 1 MG/2 ML NEBU INHALATION SCH ×2 (07:11→19:59)
[2017-11-09] MEDS: FORMOTEROL FUMARATE 20 MCG/2 ML NEBU INHALATION SCH ×2 (07:11→19:59)
[2017-11-09] MEDS: IPRATROPIUM-ALBUTEROL 3 ML NEB INHALATION SCH ×4 (07:11→19:59)
[2017-11-09 07:52] LABS: Basophils % (A) 0 %; Eosinophils # (A) 0.1 k/uL (0-0.7); Eosinophils % (A) 1 %; HCT 46.7 % (34.0-46.0); HGB 15.4 gm/dL (11.4-16.0); Lymphocytes # (A) 1.5 k/uL (1.0-4.8); Lymphocytes % (A) 12 %; MCH 29.6 pg (25.0-35.0); MCHC 33.1 g/dL (31.0-37.0); MCV 89.4 fL (80.0-100.0); Mean Platelet Volume 6.7; Monocytes # (A) 0.4 k/uL (0-1.0); Monocytes % (A) 3 %; Neutrophils # (A) 10.4 k/uL (1.3-7.7); Neutrophils % (A) 83 %; Platelet Count 331 k/uL (150-450); RBC 5.22 m/uL (3.80-5.40); WBC 12.5 k/uL (3.8-10.6)
[2017-11-09 07:54] LABS: INR 3.6 (<1.2); Prothrombin Time 31.9 sec (9.0-12.0)
[2017-11-09 08:03] LABS: Anion Gap 8 mmol/L; Blood Urea Nitrogen 19 mg/dL (7-17); Carbon Dioxide 30 mmol/L (22-30); Chloride 100 mmol/L (98-107); Glucose 173 mg/dL (74-99); Potassium 4.3 mmol/L (3.5-5.1); Sodium 138 mmol/L (137-145)
[2017-11-09] MEDS: POTASSIUM CHLORIDE ER 20 MEQ TAB.ER PO SCH ×2 (09:32→20:57)
[2017-11-09] MEDS: busPIRone HCl 10 MG TAB PO SCH ×2 (09:33→20:56)
[2017-11-09] MEDS: PANTOPRAZOLE 40 MG TABLET PO SCH (09:33)
[2017-11-09] MEDS: guaiFENesin 600 MG TABLET.ER PO SCH ×2 (09:34→20:56)
[2017-11-09] MEDS: FLUoxetine HCL 20 MG CAP PO SCH (09:34)
[2017-11-09] MEDS: DOCUSATE 100 MG CAP PO SCH ×2 (09:35→20:56)
[2017-11-09] MEDS: lamoTRIgine 100 MG TAB PO SCH (09:35)
[2017-11-09] MEDS: METOPROLOL TARTRATE 50 MG TAB PO SCH ×2 (09:35→20:57)
[2017-11-09] MEDS: AZITHROMYCIN 500 MG TAB PO SCH (09:36)
[2017-11-09] MEDS: SENNOSIDES-DOCUSATE SODIUM 1 EACH TAB PO SCH ×2 (09:36→20:57)
[2017-11-09] MEDS: INSULIN ASPART 100 UNIT/ML 1 ML 10 ML VIAL SQ SCH ×4 (09:36→20:56)
--- NOTE | 2017-11-09 09:37 | P.PN ---
Subjective Progress Note Date: 11/09/17 Progress note being dictated for Dr. Church. Interval history: This is a 47-year-old female admitted with acute COPD exacerbation, acute CHF exacerbation. Maintained on nebulized bronchodilators, systemic steroids, antibiotics changed to Rocephin and Zithromax. Productive cough with brownish sputum. Sputum culture pending. Currently on 15 L high flow nasal cannula maintaining O2 sats in the mid 90s INR 2.5. Diuresing on Lasix IV push, no weight today. Afebrile, WBC decreased to 15, preliminary blood cultures negative. 11/07/17 breathing slowly improving, oxygen weaning in progress. High flow nasal cannula down to 11 L with O2 sats in the low 90s, but with minimal activity desats, into the 80s. Reports minimal sputum production, brownish thick. Afebrile, WBC 16. Sputum culture reporting contamination. Blood culture negative INR 2.9. 11/08/17 maintained on nebulized bronchodilators, Zithromax, Rocephin, IV diuretics .diuresing well on Lasix IV push with 24-hour I&O reflecting a negative fluid balance, decreased weight chest x-ray reporting improving bilateral interstitial edema with no new acute infiltrate. Flutter valve and chest PT added to treatment regimen yesterday. Breathing slowly improving, oxygen weaned down to 6 L nasal cannula. Continues to have thick brown sputum. Scheduled for bronchoscopy tomorrow. 11/09/17 resting comfortably on 6 L nasal cannula, maintaining O2 sats of 97% .NPO for bronchoscopy this afternoon. Diuresing well on Lasix with 24-hour I&O reflecting a negative fluid balance and decrease in weight .blood sugars controlled. Afebrile. INR 3.6. Objective - Vital Signs Vital signs: Vital Signs Temp 97.1 F L 11/09/17 07:29 Pulse 74 11/09/17 07:33 Resp 18 11/09/17 07:29 BP 134/77 11/09/17 07:29 Pulse Ox 97 11/09/17 07:29 Intake & Output 11/08/17 11/09/17 11/09/17 18:59 06:59 18:59 Intake Total 100 400 Output Total 1000 Balance -900 400 Weight 101 kg Intake: Oral 100 400 Output: Urine 1000 Other: Voiding Method Toilet Toilet # Voids 1 - Exam PHYSICAL EXAM: VITAL SIGNS: As above GENERAL: Lying in bed, on 2 pillows, no acute distress HEENT: Conjunctivae normal. eyes normal. Oral mucosa dry. NECK: No JVD. No thyroid enlargement. No LNs CARDIOVASCULAR: S1, S2 muffled. No murmur RESPIRATION: Breath sounds diminished in the bases, minimal improvement in aeration. Diffuse Bibasilar crackles. ABDOMEN: Soft, nontender . No guarding. no masses palpable. Bowel sounds heard. LEGS: No edema. no swelling. PSYCHIATRY: Alert and oriented -3, mood and affect normal. NERVOUS SYSTEM: Cranial N 2-12 grossly normal. Moves all 4 limbs. Diffuse weakness No focal deficits. Microbiology 11/03/17 20:32 Blood Blood Culture - Preliminary No Growth after 96 hours 11/06/17 07:35 Sputum Gram Stain - Final 11/06/17 07:35 Sputum Sputum Culture - Final - Labs CBC & Chem 7: 11/09/17 06:58 11/09/17 06:58 Labs: Abnormal Lab Results - Last 24 Hours (Table) 11/08/17 11/08/17 11/08/17 Range/Units 11:43 16:39 20:15 WBC (3.8-10.6) k/uL Hct (34.0-46.0) % Neutrophils # (1.3-7.7) k/uL PT (9.0-12.0) sec INR (<1.2) BUN (7-17) mg/dL Glucose (74-99) mg/dL POC Glucose (mg/dL) 147 H 152 H 181 H (75-99) mg/dL 11/09/17 11/09/17 11/09/17 Range/Units 06:58 06:58 06:58 WBC 12.5 H (3.8-10.6) k/uL Hct 46.7 H (34.0-46.0) % Neutrophils # 10.4 H (1.3-7.7) k/uL PT 31.9 H (9.0-12.0) sec INR 3.6 H (<1.2) BUN 19 H (7-17) mg/dL Glucose 173 H (74-99) mg/dL POC Glucose (mg/dL) (75-99) mg/dL 11/09/17 Range/Units 07:02 WBC (3.8-10.6) k/uL Hct (34.0-46.0) % Neutrophils # (1.3-7.7) k/uL PT (9.0-12.0) sec INR (<1.2) BUN (7-17) mg/dL Glucose (74-99) mg/dL POC Glucose (mg/dL) 174 H (75-99) mg/dL Microbiology - Last 24 Hours (Table) 11/03/17 20:32 Blood Culture - Preliminary Blood No Growth after 120 hours Assessment and Plan Assessment: 1. Hypoxic hypercarbic respiratory failure secondary to acute COPD exacerbation with acute purulent tracheobronchitis or bronchopneumonia and CHF 2. Acute on chronic CHF exacerbation, diastolic dysfunction 3. History of PE, DVT 4. Hypertension 5. Ongoing nicotine dependence 6. Coumadin monitoring, currently on hold for elevated INR. 7. History of Sarcoidosis Plan: Continue on current medication regime ,monitoring and symptomatic treatment. NPO for Bronchoscopy today. Hold coumadin tonight, repeat PT/INR in am, further dosing pending. Maintain flutter valve and chest PT. continue on diuretics,nebulized bronchodilators, steroids and antibiotics. CHF protocol. Close monitoring of renal function, electrolytes with repeat labs ordered in a.m. Further recommendations to follow. The impression and plan of care has been dictated as directed. : I performed a history and examination of this patient, discussed the same with the dictator. I agree with the dictator's note ,documented as a scribe. Any additional findings or plans will be noted.
[2017-11-09] MEDS: MORPHINE SULFATE ER 30 MG TABLET PO PRN ×2 (09:43→19:30)
[2017-11-09] MEDS: NYSTATIN 100,000 UNIT/GM POWD 15 GM TOPICAL SCH ×2 (09:45→20:57)
[2017-11-09] MEDS: PREGABALIN 75 MG CAP PO SCH ×2 (09:49→20:57)
[2017-11-09] MEDS ORDERED: PHYTONADIONE ORAL 5 MG/5 ML ORAL.SYRG PO STA (10:58)
[2017-11-09 11:14] LABS: Glucose,Whole Blood 157 mg/dL (75-99)
--- NOTE | 2017-11-09 12:42 | P.PN ---
Subjective Progress Note Date: 11/09/17 47-year-old female with known history of advanced COPD whereas been in the hospital for at least 5 days being treated for an acute COPD exacerbation. Recovery is been essentially low. The patient is reporting copious amount of rest or secretions that she is unable to cough out. She reported a congested cough. As mentioned, unable to bring up any sputum. Chest is sore from coughing. No hemoptysis. No pleurisy. No fever or chills. Since admission, the patient has been on a combination of bronchodilators and the patient has been on high-dose Solu-Medrol 60 mg IV push every 6 hours. Antibiotic coverage including a combination of Rocephin and Zithromax. Her white cell count is at 1.5. She has been on oxygen and we haven't been able to wean it off effectively. She was on 6 L of oxygen by nasal cannula and currently she is down to 4 L. She is afebrile. We have discussed the possibility of bronchoscopy. The patient wants to proceed with the procedure for therapeutic airway suctioning and the bronchioloalveolar lavage to make sure there is no ongoing infection contributing to her respiratory failure. Objective - Vital Signs Vital signs: Vital Signs Temp 97.1 F L 11/09/17 11:43 Pulse 60 11/09/17 11:43 Resp 18 11/09/17 11:43 BP 134/77 11/09/17 11:43 Pulse Ox 92 L 11/09/17 11:43 Intake & Output 11/08/17 11/09/17 11/09/17 18:59 06:59 18:59 Intake Total 100 400 Output Total 1000 Balance -900 400 Weight 101 kg Intake: Oral 100 400 Output: Urine 1000 Other: Voiding Method Toilet Toilet Toilet # Voids 1 - Exam GENERAL EXAM: Alert, pleasant, obese 47-year-old white female in no distress, currently on 4 L per nasal cannula with a pulse ox between 94-95%. EYES: Normal reaction of pupils, equal size. Conjunctiva pink, sclera white. NOSE: Clear with pink turbinates. THROAT: No erythema or exudates. NECK: No masses, no JVD, no thyroid enlargement, no adenopathy. CHEST: No chest wall deformity. Symmetrical expansion. LUNGS: Lung sounds are diminished, diffuse crackles at bilateral bases. There is prolongation of expiratory phase of breathing and diffuse expiratory wheezes throughout lung diana bilaterally. CVS: Regular rate and rhythm, normal S1 and S2, no gallops, no murmurs, no rubs ABDOMEN: Soft, nontender. No hepatosplenomegaly, normal bowel sounds, no guarding or rigidity. EXTREMITIES: No clubbing, no edema, no cyanosis, 2+ pulses and upper and lower extremities. MUSCULOSKELETAL: Muscle strength and tone normal. SPINE: No scoliosis or deformity SKIN: No rashes CENTRAL NERVOUS SYSTEM: Alert and oriented -3. No focal deficits, tone is normal in all 4 extremities. PSYCHIATRIC: Alert and oriented -3. Appropriate affect. Intact judgment and insight. - Labs CBC & Chem 7: 11/09/17 06:58 11/09/17 06:58 Labs: Abnormal Lab Results - Last 24 Hours (Table) 11/08/17 11/08/17 11/09/17 Range/Units 16:39 20:15 06:58 WBC (3.8-10.6) k/uL Hct (34.0-46.0) % Neutrophils # (1.3-7.7) k/uL PT 31.9 H (9.0-12.0) sec INR 3.6 H (<1.2) BUN (7-17) mg/dL Glucose (74-99) mg/dL POC Glucose (mg/dL) 152 H 181 H (75-99) mg/dL 11/09/17 11/09/17 11/09/17 Range/Units 06:58 06:58 07:02 WBC 12.5 H (3.8-10.6) k/uL Hct 46.7 H (34.0-46.0) % Neutrophils # 10.4 H (1.3-7.7) k/uL PT (9.0-12.0) sec INR (<1.2) BUN 19 H (7-17) mg/dL Glucose 173 H (74-99) mg/dL POC Glucose (mg/dL) 174 H (75-99) mg/dL 11/09/17 Range/Units 11:13 WBC (3.8-10.6) k/uL Hct (34.0-46.0) % Neutrophils # (1.3-7.7) k/uL PT (9.0-12.0) sec INR (<1.2) BUN (7-17) mg/dL Glucose (74-99) mg/dL POC Glucose (mg/dL) 157 H (75-99) mg/dL Microbiology - Last 24 Hours (Table) 11/03/17 20:32 Blood Culture - Preliminary Blood No Growth after 120 hours Assessment and Plan Plan: Assessment: #1. Acute COPD exacerbation with secondary shortness of breath. The patient has been extremely slow recovery. The patient is having shortness of breath and ongoing hypoxemia requiring oxygen between 4 and 6 L of oxygen nasal cannula. She is being considered for bronchoscopy today. #2. Previous hospitalization for bilateral MRSA pneumonia, discharged home on 04/18/2017 #3. Chronic hypoxic respiratory failure secondary to above #4. Sarcoidosis, confirmed by lung biopsy at [facility] 2014, treated with systemic steroids that was ultimately weaned off and discontinued #5. History of pulmonary embolisms in 2011, 2016, DVTs, currently on anticoagulation with Coumadin, and INR from today is at 3.6. #6. Nicotine addiction, ongoing, currently down to 2 cigarettes per day, carries over [id number] smoking history #7. Obesity with features of obstructive sleep apnea #8. Anxiety #9. CAD, history of myocardial infarction #10. Recurrent hospitalizations for respiratory complications #11. Bipolar disorder #12. Degenerative disc disease #13. Hypertension #14 hyperlipidemia #15 fibromyalgia Plan Continue same treatment. Consider bronchoscopy. We noted INR is elevated. I' ll give the patient 2 mg of vitamin K and proceed with the procedure. No biopsies of the them. The patient only had a therapeutic it was suctioning.
[2017-11-09] MEDS ORDERED: MIDAZOLAM 2 MG/2 ML VIAL ONE (12:45)
[2017-11-09] MEDS ORDERED: PROPOFOL 10 MG/ML 20 ML VIAL IV ONE (12:45)
[2017-11-09] MEDS ORDERED: KETAMINE 10 MG/ML 20 ML VIAL ONE (12:45)
[2017-11-09] MEDS ORDERED: GLYCOPYRROLATE 0.2 MG/ML 2 ML VIAL ONE (12:45)
--- NOTE | 2017-11-09 13:03 | P.PCN ---
Date of Procedure: 11/09/17 Preoperative Diagnosis: COPD exacerbation, persistent shortness of breath and cough Postoperative Diagnosis: COPD exacerbation, persistent shortness of breath, cough Procedure(s) Performed: Flexible bronchoscopy, bronchial alveolar lavage, airway inspection Anesthesia: MAC Surgeon: Gayle Hicks Estimated Blood Loss (ml): 0 Pathology: other Condition: stable Disposition: floor Operative Findings: This procedure was done under conscious sedation. The patient was given a combination of ketamine and propofol by [employer]ION[employer]. After achieving adequate sedation , the flexible bronchoscope was inserted through the left nostril into the best Doppler airway. Examination of the posterior oropharynx was done. Examination of the larynx was done. There was significant amount of adipose tissue growing circumferentially in the upper airways consistent with underlying obstructive sleep apnea. There was also evidence of dynamic obstruction. Epiglotis was identified. The vallecula and the arytenoids and the 2 and the false vocal cords were all seen and all of these upper airway structures were within normal limits. A total of 2 mL of 1% lidocaine was applied to the vocal cords and following that the bronchoscope was advanced into the upper trachea. Immediately, a component of tracheal bronchomalacia was seen throughout the patient's airway with dynamic obstruction and dynamic movement of the membranous trachea causing airway obstruction. This was observed with expiratory maneuvers and coughing. Therapeutic airway suctioning was done. The trachea was cleared of any respiratory secretions. Significant amount of thick purulent string-like long rest or secretions were identified originating from the left upper lobe bronchus. Therapeutic airway suctioning was done and the left upper lobe bronchus and the lingular segments were cleared from the second surgery secretions. A crit bronchioloalveolar lavage of the left upper lobe was done without a total of 60 mL of fluid was infused and 25 mL was suctioned back. Examination of the left lower lobe bronchus was within normal limits. Examination of the right side including the right mainstem bronchus, right upper lobe bronchus bronchus medius right middle lobe bronchus and right lower lobe bronchus was done. There was evidence of bronchomalacia throughout these airways yet there was no evidence of any endobronchial tumors or lesions identified. All of the rest or secretions were suctioned out. Addendum of the procedure, the airways were cleared of any rest or secretions. Final diagnosis is mucous plugging within the left upper lobe bronchus and evidence of tracheal bronchitis involving the left upper lobe bronchus and the lingular segments. There is also evidence of tracheal bronchomalacia throughout the patient's airways. The bronchoscope was removed and the patient was transferred to recovery stable condition. The samples will be sent for microbial analysis.
[2017-11-09] MEDS ORDERED: SODIUM CHLORIDE 0.9% 1,000 ML IV ONE (13:05)
[2017-11-09 14:04] VITALS: BMI 37.0
[2017-11-09] MEDS: HYDROcodone/APAP 5-325MG 1 EACH TAB PO PRN (14:27)
[2017-11-09] MEDS: BUTALB/APAP/CAFF 50-325-40MG TAB PO PRN (16:18)
[2017-11-09 17:11] LABS: Glucose,Whole Blood 175 mg/dL (75-99)
[2017-11-09 19:58] LABS: Glucose,Whole Blood 160 mg/dL (75-99)
[2017-11-09] MEDS: MIRTAZAPINE 45 MG TABLET PO SCH (20:57)
[2017-11-10] MEDS: methylPREDNISolone SOD SUCCI 125 MG/2 ML VIAL IV SCH ×2 (05:28→13:10)
[2017-11-10] MEDS: LORazepam 2 MG/ML INJ IV PRN (06:06)
[2017-11-10 06:38] VITALS: BP 110/64; RESP 18; TEMP 97.6
[2017-11-10 07:10] LABS: INR 1.4 (<1.2)
[2017-11-10 07:12] LABS: Basophils % (A) 0 %; Eosinophils # (A) 0.1 k/uL (0-0.7); Eosinophils % (A) 1 %; HCT 47.8 % (34.0-46.0); HGB 15.2 gm/dL (11.4-16.0); Lymphocytes # (A) 1.6 k/uL (1.0-4.8); Lymphocytes % (A) 10 %; MCHC 31.7 g/dL (31.0-37.0); MCV 91.7 fL (80.0-100.0); Mean Platelet Volume 6.7; Monocytes # (A) 0.6 k/uL (0-1.0); Monocytes % (A) 4 %; Neutrophils # (A) 13.4 k/uL (1.3-7.7); Neutrophils % (A) 85 %; Platelet Count 318 k/uL (150-450); RBC 5.22 m/uL (3.80-5.40); RDW 12.9 % (11.5-15.5); WBC 15.9 k/uL (3.8-10.6)
[2017-11-10 07:21] LABS: Glucose,Whole Blood 218 mg/dL (75-99)
[2017-11-10 07:23] LABS: Anion Gap 9 mmol/L; Blood Urea Nitrogen 19 mg/dL (7-17); Carbon Dioxide 25 mmol/L (22-30); Chloride 102 mmol/L (98-107); Glucose 218 mg/dL (74-99); Potassium 4.3 mmol/L (3.5-5.1); Sodium 136 mmol/L (137-145)
[2017-11-10] MEDS: BUDESONIDE 1 MG/2 ML NEBU INHALATION SCH (07:27)
[2017-11-10] MEDS: FORMOTEROL FUMARATE 20 MCG/2 ML NEBU INHALATION SCH (07:27)
[2017-11-10] MEDS: IPRATROPIUM-ALBUTEROL 3 ML NEB INHALATION SCH ×2 (07:27→10:57)
[2017-11-10] MEDS: INSULIN ASPART 100 UNIT/ML 1 ML 10 ML VIAL SQ SCH ×2 (07:40→13:10)
[2017-11-10] MEDS: PANTOPRAZOLE 40 MG TABLET PO SCH (07:43)
[2017-11-10] MEDS: busPIRone HCl 10 MG TAB PO SCH (07:43)
[2017-11-10] MEDS: guaiFENesin 600 MG TABLET.ER PO SCH (07:43)
[2017-11-10] MEDS: FLUoxetine HCL 20 MG CAP PO SCH (07:43)
[2017-11-10] MEDS: POTASSIUM CHLORIDE ER 20 MEQ TAB.ER PO SCH (07:44)
[2017-11-10] MEDS: lamoTRIgine 100 MG TAB PO SCH (07:44)
[2017-11-10] MEDS: FUROSEMIDE 10 MG/ML 4 ML VIAL IV SCH (07:44)
[2017-11-10] MEDS: DOCUSATE 100 MG CAP PO SCH (07:44)
[2017-11-10] MEDS: AZITHROMYCIN 500 MG TAB PO SCH (07:44)
[2017-11-10] MEDS: METOPROLOL TARTRATE 50 MG TAB PO SCH (07:45)
[2017-11-10] MEDS: cefTRIAXone IN SWFI 1,000 MG/10 ML SYRINGE IVP SCH (08:32)
[2017-11-10] MEDS: SENNOSIDES-DOCUSATE SODIUM 1 EACH TAB PO SCH (08:32)
[2017-11-10] MEDS: NYSTATIN 100,000 UNIT/GM POWD 15 GM TOPICAL SCH (08:34)
[2017-11-10] MEDS: MORPHINE SULFATE ER 30 MG TABLET PO PRN (08:49)
[2017-11-10] MEDS: PREGABALIN 75 MG CAP PO SCH (08:49)
[2017-11-10 11:01] VITALS: PULSE 72
[2017-11-10 11:59] LABS: Glucose,Whole Blood 139 mg/dL (75-99)
--- NOTE | 2017-11-10 12:01 | DS ---
DISCHARGE SUMMARY FINAL DIAGNOSES: 1. Chronic obstructive pulmonary disease acute exacerbation with acute bronchopneumonia with acute hypoxic hypercarbic respiratory failure. 2. Tracheobronchomalacia. 3. Status post bronchoscopy. 4. Congestive heart failure acute exacerbation with acute on chronic diastolic dysfunction. 5. History of pulmonary embolism, deep venous thrombosis. 6. Hypertension. 7. Ongoing nicotine dependence. 8. Coumadin monitoring. 9. History of sarcoidosis. DISCHARGE DISPOSITION: The patient will be discharged in stable condition with guarded prognosis. Total time taken 35 minutes. HISTORY OF PRESENT ILLNESS: This is a 47-year-old woman with a past medical history of multiple medical problems was admitted COPD acute exacerbation and multiple other complex medical issues. Patient also had some fluid overload and CHF acute exacerbation treated with diuretics. Bronchodilators and antibiotics were given. Because of lack of improvement, Dr. Hicks performed bronchoscopy and lavage. Final cultures are pending at this time. Mucus plugs were noted. The patient improved significantly subsequently. On exam, vital signs are stable. CARDIOVASCULAR: S1 and S2 muffled. RESPIRATORY: A few scattered rhonchi. ABDOMEN: Soft, nontender. Patient will be discharged in stable condition with guarded prognosis. Diet is cardiac. Activity limited until followup. Follow up with Dr. Liz Koch in 3 days. Follow up with Dr. Hicks in 2 weeks. MEDICATIONS: Medications are as follows: 1. Xanax 0.5 p.o. t.i.d. 2. Lioresal 20 mg q.8. 3. Bumex 4 mg q.a.m. and 2 mg p.o. daily. 4. BuSpar 30 mg p.o. b.i.d. 5. Fioricet q.4 p.r.n. 6. Zyrtec 10 mg p.o. daily. 7. Lamictal 200 mg p.o. daily. 8. Remeron 45 mg at bedtime. 9. MS Contin 30 mg q.8 p.r.n. 10.Nystatin 1 application daily. 11.Zofran 4 mg b.i.d. p.r.n. 12.Lyrica 150 mg p.o. b.i.d. 13.Promethazine 5 mL q.6 p.r.n. 14.Coumadin 10 mg at bedtime. 15.Tylenol 500 mg q.6 p.r.n. 16.Zithromax 500 mg p.o. daily. 17.Symbicort 1 p.o. b.i.d. 18.Ceftin 500 mg p.o. b.i.d. 19.Colace 100 mg p.o. b.i.d. 20.Prozac 20 mg p.o. daily. 21.Mucinex 1200 mg p.o. q.i.d. 22.DuoNeb q.i.d. and p.r.n. 23.Lopressor 50 mg p.o. b.i.d. 24.K-Dur 20 mEq p.o. daily. 25.Prednisone taper that is 40 mg p.o. daily for 3 days, 30 mg for 3, 20 for 3 days, 10 for 3 days and then stop. MMODL / IJN: [id number] /
--- NOTE | 2017-11-10 12:17 | P.PN ---
Subjective Progress Note Date: 11/10/17 On today's evaluation of 11/10/2017, this patient is doing much better. She underwent a bronchoscopy yesterday and therapeutic it was suctioning was done and removal of mucous plugs was performed successfully. Cultures still negative for now. There is considerable improvement in her breathing. Much less short of breath. No 76 and bronchospasm wheezing on today's evaluation. Such, the patient will be discharged home. Hemoglobin is at 15.2. White cell count is 15.9. Normal renal function. Objective - Vital Signs Vital signs: Vital Signs Temp 97.6 F 11/10/17 06:37 Pulse 72 11/10/17 11:05 Resp 18 11/10/17 06:37 BP 110/64 11/10/17 06:37 Pulse Ox 94 L 11/10/17 06:37 Intake & Output 11/09/17 11/10/17 11/10/17 18:59 06:59 18:59 Intake Total 300 1320 Balance 300 1320 Weight 101 kg 109 kg Intake: IV 300 Oral 1320 Other 0 Other: Voiding Method Toilet Toilet Toilet # Voids 4 2 - Exam GENERAL EXAM: Alert, pleasant, obese 47-year-old white female in no distress, currently on 4 L per nasal cannula with a pulse ox between 94-95%. EYES: Normal reaction of pupils, equal size. Conjunctiva pink, sclera white. NOSE: Clear with pink turbinates. THROAT: No erythema or exudates. NECK: No masses, no JVD, no thyroid enlargement, no adenopathy. CHEST: No chest wall deformity. Symmetrical expansion. LUNGS: Lung sounds are diminished, and there is marked improvement in the wheezing and the bronchospasm. CVS: Regular rate and rhythm, normal S1 and S2, no gallops, no murmurs, no rubs ABDOMEN: Soft, nontender. No hepatosplenomegaly, normal bowel sounds, no guarding or rigidity. EXTREMITIES: No clubbing, no edema, no cyanosis, 2+ pulses and upper and lower extremities. MUSCULOSKELETAL: Muscle strength and tone normal. SPINE: No scoliosis or deformity SKIN: No rashes CENTRAL NERVOUS SYSTEM: Alert and oriented -3. No focal deficits, tone is normal in all 4 extremities. PSYCHIATRIC: Alert and oriented -3. Appropriate affect. Intact judgment and insight. - Labs CBC & Chem 7: 11/10/17 06:46 11/10/17 06:46 Labs: Abnormal Lab Results - Last 24 Hours (Table) 11/09/17 11/09/17 11/10/17 Range/Units 17:09 19:57 06:46 WBC (3.8-10.6) k/uL Hct (34.0-46.0) % Neutrophils # (1.3-7.7) k/uL PT 13.0 H (9.0-12.0) sec INR 1.4 H (<1.2) Sodium (137-145) mmol/L BUN (7-17) mg/dL Glucose (74-99) mg/dL POC Glucose (mg/dL) 175 H 160 H (75-99) mg/dL 11/10/17 11/10/17 11/10/17 Range/Units 06:46 06:46 07:19 WBC 15.9 H (3.8-10.6) k/uL Hct 47.8 H (34.0-46.0) % Neutrophils # 13.4 H (1.3-7.7) k/uL PT (9.0-12.0) sec INR (<1.2) Sodium 136 L (137-145) mmol/L BUN 19 H (7-17) mg/dL Glucose 218 H (74-99) mg/dL POC Glucose (mg/dL) 218 H (75-99) mg/dL 11/10/17 Range/Units 11:58 WBC (3.8-10.6) k/uL Hct (34.0-46.0) % Neutrophils # (1.3-7.7) k/uL PT (9.0-12.0) sec INR (<1.2) Sodium (137-145) mmol/L BUN (7-17) mg/dL Glucose (74-99) mg/dL POC Glucose (mg/dL) 139 H (75-99) mg/dL Microbiology - Last 24 Hours (Table) 11/09/17 12:55 Fungal Culture - Preliminary Pleural Fluid 11/09/17 12:55 Body Fluid Culture - Preliminary Pleural Fluid 11/03/17 20:32 Blood Culture - Final Blood No Growth after 144 hours Assessment and Plan Plan: Assessment: #1. Acute COPD exacerbation with secondary shortness of breath. Patient is post bronchoscopy. Bronchial lavage are still negative for any microbial growth. Meanwhile, clinically improved significantly and the patient will be discharged home today. #2. Previous hospitalization for bilateral MRSA pneumonia, discharged home on 04/18/2017 #3. Chronic hypoxic respiratory failure secondary to above #4. Sarcoidosis, confirmed by lung biopsy at [facility] 2014, treated with systemic steroids that was ultimately weaned off and discontinued #5. History of pulmonary embolisms in 2011, 2016, DVTs, currently on anticoagulation with Coumadin, #6. Nicotine addiction, ongoing, currently down to 2 cigarettes per day, carries over [id number] smoking history #7. Obesity with features of obstructive sleep apnea #8. Anxiety #9. CAD, history of myocardial infarction #10. Recurrent hospitalizations for respiratory complications #11. Bipolar disorder #12. Degenerative disc disease #13. Hypertension #14 hyperlipidemia #15 fibromyalgia Plan Will monitor the results of the BAL on outpatient basis. Okay for discharge from a pulmonary standpoint to be followed up on outpatient basis. Prednisone burst taper. No need for any further antibiotics at this point in time. Routine bronchodilators. Smoking cessation.
== END 2017-11-10 13:05 | disposition home health service (06) | DRG 166 ==
LOC: EC 17:41 → 4MS4W 20:52 → 5MS5E 11-06 10:15
PROVIDERS: ADMIT Hospitalist; ATTEND Hospitalist
PROC: 0BC98ZZ Extirpation of Matter from Lingula Bronchus, Via Natural or Artificial Opening Endoscopic (ICD-10-PCS; 2017-11-09)
PROC: 0BC88ZZ Extirpation of Matter from Left Upper Lobe Bronchus, Via Natural or Artificial Opening Endoscopic (ICD-10-PCS; 2017-11-09)
PROC: 0B9G8ZX Drainage of Left Upper Lung Lobe, Via Natural or Artificial Opening Endoscopic, Diagnostic (ICD-10-PCS; principal; 2017-11-09 12:00)
DX: J18.0 Bronchopneumonia, unspecified organism (principal); J96.22 Acute and chronic respiratory failure with hypercapnia; J96.21 Acute and chronic respiratory failure with hypoxia; I50.33 Acute on chronic diastolic (congestive) heart failure; J44.0 Chronic obstructive pulmonary disease with (acute) lower respiratory infection; Z68.41 Body mass index [BMI] 40.0-44.9, adult; T17.590A Other foreign object in bronchus causing asphyxiation, initial encounter; J44.1 Chronic obstructive pulmonary disease with (acute) exacerbation; I11.0 Hypertensive heart disease with heart failure; J84.10 Pulmonary fibrosis, unspecified; D75.1 Secondary polycythemia; J20.9 Acute bronchitis, unspecified; E66.9 Obesity, unspecified; J98.09 Other diseases of bronchus, not elsewhere classified; J39.8 Other specified diseases of upper respiratory tract; E87.6 Hypokalemia; G47.33 Obstructive sleep apnea (adult) (pediatric); I25.10 Atherosclerotic heart disease of native coronary artery without angina pectoris; E78.5 Hyperlipidemia, unspecified; G89.29 Other chronic pain; M54.5 Low back pain; M79.7 Fibromyalgia; F41.0 Panic disorder [episodic paroxysmal anxiety]; F31.9 Bipolar disorder, unspecified; D86.9 Sarcoidosis, unspecified; I25.2 Old myocardial infarction; R79.1 Abnormal coagulation profile; F17.210 Nicotine dependence, cigarettes, uncomplicated; Z71.6 Tobacco abuse counseling; Z91.19 Patient's noncompliance with other medical treatment and regimen; Z99.81 Dependence on supplemental oxygen; Z79.01 Long term (current) use of anticoagulants; Z79.899 Other long term (current) drug therapy; Z86.14 Personal history of Methicillin resistant Staphylococcus aureus infection; Z87.01 Personal history of pneumonia (recurrent); Z86.711 Personal history of pulmonary embolism; Z86.718 Personal history of other venous thrombosis and embolism; Z90.49 Acquired absence of other specified parts of digestive tract; Z88.5 Allergy status to narcotic agent; Z88.8 Allergy status to other drugs, medicaments and biological substances; Z88.1 Allergy status to other antibiotic agents; Z91.041 Radiographic dye allergy status; Z82.49 Family history of ischemic heart disease and other diseases of the circulatory system; Z83.2 Family history of diseases of the blood and blood-forming organs and certain disorders involving the immune mechanism; Z82.69 Family history of other diseases of the musculoskeletal system and connective tissue; Z83.3 Family history of diabetes mellitus
CPT/HCPCS: 31624; 36415; 71045; 71046; 80048; 80053; 82550; 82553; 82570; 83036; 83735; 83880; 84484; 84702; 85025; 85027; 85610; 85730; 87040; 87070; 87077; 87102; 87186; 87205; 87252; 87496; 87498; 87502; 87529; 87634; 87798; 93005; 94640; 94664; 94667; 94668; 94760; 96361; 96365; 96375; 99285

== ENCOUNTER 2017-11-12 16:01 | Inpatient (IN) | payer OTHER ==
[2017-11-12] MEDS ORDERED: NALOXONE 0.4 MG/ML 1 ML VIAL IV STA (16:26)
[2017-11-12 16:37] LABS: Glucose,Whole Blood 145 mg/dL (75-99)
[2017-11-12] MEDS ORDERED: SODIUM CHLORIDE 0.9% 500 ML IV ONE (16:41)
[2017-11-12] MEDS: SODIUM CHLORIDE 0.9% 1,000 ML IV ONE ×2 (17:06→17:07)
[2017-11-12 17:10] LABS: Basophils % (A) 0 %; Eosinophils # (A) 0.1 k/uL (0-0.7); Eosinophils % (A) 1 %; HCT 46.9 % (34.0-46.0); HGB 15.9 gm/dL (11.4-16.0); Lymphocytes % (A) 16 %; MCHC 33.8 g/dL (31.0-37.0); MCV 88.6 fL (80.0-100.0); Mean Platelet Volume 6.9; Monocytes # (A) 0.7 k/uL (0-1.0); Monocytes % (A) 5 %; Neutrophils # (A) 10.1 k/uL (1.3-7.7); Neutrophils % (A) 77 %; Platelet Count 339 k/uL (150-450); RBC 5.29 m/uL (3.80-5.40); RDW 13.1 % (11.5-15.5); WBC 13.1 k/uL (3.8-10.6)
[2017-11-12 17:20] LABS: Carbon Dioxide 27 mmol/L (22-30); Chloride 105 mmol/L (98-107); Glucose 136 mg/dL (74-99); Potassium 3.2 mmol/L (3.5-5.1); Sodium 137 mmol/L (137-145)
[2017-11-12] MEDS ORDERED: IPRATROPIUM-ALBUTEROL 3 ML NEB INHALATION STA (17:20)
[2017-11-12 17:21] LABS: ALT 48 U/L (9-52); AST 23 U/L (14-36); Albumin 3.1 g/dL (3.5-5.0); Alkaline Phosphatase 79 U/L (38-126); Anion Gap 5 mmol/L; Blood Urea Nitrogen 17 mg/dL (7-17); Calcium 8.4 mg/dL (8.4-10.2); Magnesium 1.9 mg/dL (1.6-2.3); Phosphorus 3.2 mg/dL (2.5-4.5); Total Bilirubin 0.2 mg/dL (0.2-1.3); Total Protein 5.7 g/dL (6.3-8.2)
[2017-11-12 17:22] LABS: INR 2.1 (<1.2)
[2017-11-12 17:23] LABS: Creatine Kinase <20 U/L (30-135)
[2017-11-12 17:31] LABS: Lactic Acid, Venous 1.7 mmol/L (0.7-2.0)
[2017-11-12 17:36] LABS: Creatine Kinase MB <0.2 ng/mL (0.0-2.4); Troponin I <0.012 ng/mL (0.000-0.034)
--- NOTE | 2017-11-12 17:48 | CT ---
EXAMINATION TYPE: CT brain wo con DATE OF EXAM: 11/12/2017 COMPARISON: 10/18/2016 HISTORY: Altered mental status. CT DLP: 964 mGycm. Automated Exposure Control for Dose Reduction was Utilized. TECHNIQUE: CT scan of the head is performed without contrast. FINDINGS: There is some mild cerebral cortical atrophy. There is no mass effect nor midline shift. There is no sign of intracranial hemorrhage. The calvarium is intact. IMPRESSION: Minimal cerebral atrophy. No acute intracranial abnormality. No change.
[2017-11-12 18:10] LABS: ABG Base Excess 2.3 mmol/L; ABG HCO3 27 mmol/L (21-25); ABG PCO2 43 mmHg (35-45); ABG PH 7.41 (7.35-7.45); ABG PO2 96 mmHg (83-108)
--- NOTE | 2017-11-12 18:11 | XR ---
EXAMINATION TYPE: XR chest 1V portable DATE OF EXAM: 11/12/2017 COMPARISON: 11/08/2017 HISTORY: Altered mental status TECHNIQUE: Single frontal view of the chest is obtained. FINDINGS: There is poor inspiration. There is diffuse pulmonary interstitial infiltrate. I see no pl eural effusion. There is no definite heart failure. Heart size is normal. IMPRESSION: Poor inspiration. Interstitial pneumonic infiltrates similar to last exam.
[2017-11-12 18:49] LABS: Appearance,Urine Clear (Clear); Bilirubin,Urine Negative (Negative); Blood,Urine Negative (Negative); Color,Urine Yellow; Glucose,Urine (UA) Negative (Negative); Ketones,Urine Negative (Negative); Leukocyte Esterase,Urine Negative (Negative); Nitrite,Urine Negative (Negative); PH, Urine 6.5 (5.0-8.0); Protein,Urine Trace (Negative); Specific Gravity,Urine 1.024 (1.001-1.035); Urobilinogen,Urine <2.0 mg/dL (<2.0)
[2017-11-12 18:56] LABS: Cocaine Screen,Urine Not Detected (NotDetected); Opiate Screen,Urine Detected (NotDetected); Phencyclidine Screen,Urine Not Detected (NotDetected); Urn Cannabinoid Scrn Not Detected (NotDetected)
[2017-11-12 18:57] LABS: Amphetamine Screen,Urine Not Detected (NotDetected); Barbiturate Screen,Urine Detected (NotDetected); Benzodiazepines Screen,Urine Detected (NotDetected); Methadone Screen, Urine Not Detected (NotDetected); Oxycodone Screen, Urine Not Detected (NotDetected); Tricyclic Antidepressant,Urine Detected (NotDetected)
[2017-11-12 19:22] VITALS: RESP 17
--- NOTE | 2017-11-12 19:47 | ED ---
Altered Mental Status HPI - General Chief Complaint: Altered Mental Status Stated Complaint: Nausea Time Seen by Provider: 11/12/17 16:30 Source: EMS Mode of arrival: EMS Limitations: no limitations - History of Present Illness Initial Comments: This 47-year-old white female presents with significant other with the complaint of mental status changes. She was just discharged from the hospital 2 days ago. She did state in the hospital for approximately one week and was diagnosed with MRSA pneumonia. She did have a bronchoscopy approximately 3 days ago. She apparently developed some mental status changes over the past day. The significant other denies any known overdose of medications. He denies her having any trauma. He denies any previous similar incidents. He states that her breathing has been extremely well recently and does not appear to be an issue. She has a long history of significant medical problems for her age. She is on multiple medications as well. There's been no fever or chills. She has not complained of any pain. I am unable to obtain any history from her due to her significant decrease in mental status. She is arousable but will not answer any questions. - Related Data Home Medications Medication Instructions Recorded Confirmed Cetirizine HCl [Zyrtec] 10 mg PO DAILY PRN 07/16/14 11/12/17 lamoTRIgine [LaMICtal] 200 mg PO DAILY 03/22/16 11/12/17 Bumetanide 4 mg PO QAM 10/18/16 11/12/17 Butalb/APAP/Caff 50-325-40Mg 1 tab PO Q4H PRN 10/18/16 11/12/17 [Fioricet 50-325-40] Ondansetron HCl [Zofran] 4 mg PO BID PRN 10/18/16 11/12/17 Mirtazapine [Remeron] 45 mg PO HS 04/10/17 11/12/17 ALPRAZolam [Xanax] 0.5 mg PO TID PRN 06/06/17 11/12/17 Bumetanide [BUMEX] 2 mg PO DAILY@1200 09/16/17 11/12/17 Pregabalin [Lyrica] 150 mg PO BID 09/16/17 11/12/17 Warfarin Sodium [Jantoven] 10 mg PO HS 09/16/17 11/12/17 busPIRone HCL [Buspar] 30 mg PO BID 09/16/17 11/12/17 Baclofen [Lioresal] 20 mg PO Q8H PRN 10/09/17 11/12/17 Morphine Sulfate ER [Ms Contin] 30 mg PO Q8H PRN 11/03/17 11/12/17 Nystatin 100,000 Unit/gm Powd 1 applic TOPICAL BID 11/04/17 11/12/17 [Mycostatin Powder] Promethazine/Dextromethorphan 5 ml PO Q6H PRN 11/04/17 11/12/17 [Promethazine-Dm Solution] predniSONE See Taper PO DIRECTED 11/12/17 11/12/17 Previous Rx's Medication Instructions Recorded FLUoxetine HCL [PROzac] 20 mg PO DAILY #30 capsule 08/20/15 Metoprolol Tartrate [Lopressor] 50 mg PO BID #60 tab 08/20/15 Acetaminophen Tab [Tylenol] 500 mg PO Q6HR PRN tab 11/10/17 Azithromycin [Zithromax] 500 mg PO DAILY #5 tab 11/10/17 Budesonide/Formoterol Fumarate 1 puff IH BID #1 hfa.aer.ad 11/10/17 [Symbicort 160-4.5 Mcg Inhaler] Cefuroxime Axetil [Ceftin] 500 mg PO BID #8 tab 11/10/17 Docusate [Colace] 100 mg PO BID PRN #60 cap 11/10/17 Ipratropium-Albuterol Nebulize 3 ml INHALATION RT-QID #120 11/10/17 [Duoneb 0.5 mg-3 mg/3 ml Soln] ampul.neb Potassium Chloride ER [K-Dur 20] 20 meq PO DAILY #30 tab.er.prt 11/10/17 guaiFENesin [Mucinex] 1,200 mg PO Q12HR #40 tablet.er 11/10/17 Allergies Allergy/AdvReac Type Severity Reaction Status Date / Time ketorolac tromethamine Allergy Severe Anaphylaxis Verified 11/12/17 16:22 [From Toradol] Opioids - Morphine Analogues Allergy Mild Itching Verified 11/12/17 16:22 Iodinated Contrast- Oral and Allergy Unknown Verified 11/12/17 16:22 IV Dye rivaroxaban [From Xarelto] Allergy Rash/Hives Verified 11/12/17 16:22 sumatriptan [From Imitrex] Allergy Anaphylaxis Verified 11/12/17 16:22 sumatriptan succinate Allergy Anaphylaxis Verified 11/12/17 16:22 [From Imitrex] morphine AdvReac Severe Itching Verified 11/12/17 16:22 iodine AdvReac Intermediate Itching Verified 11/12/17 16:22 tramadol AdvReac Anaphylaxis Verified 11/12/17 16:22 vancomycin AdvReac Itching Verified 11/12/17 16:22 Rich wipes AdvReac Severe Rash/Hives Uncoded 09/16/17 15:30 Review of Systems ROS Statement: Those systems with pertinent positive or pertinent negative responses have been documented in the HPI. ROS Other: All systems not noted in ROS Statement are negative. Past Medical History Past Medical History: Blood Disorder, Heart Failure, COPD, Deep Vein Thrombosis (DVT), Hyperlipidemia, Hypertension, Myocardial Infarction ([place]), Musculoskeletal Disorder, Pneumonia, Pulmonary Embolus (PE) Additional Past Medical History / Comment(s): PE 2012; Sarcoidosis diagnosed in 2015 following a bronchoscopy and lung biopsy done at [facility] and she was started on predniosone and she took the therapy for almost 1 year, polycythemia, overweight, bilateral PE (2011, 2015), bilateral DVTs, fibromyalgia, bipolar disorder, degenerative disk disorder, coronary artery disease along with previous history of a [place] and ventilator dependent respiratory failure with MRSA pneumonia for which the patient was hospitalized [facility] in 2012. Viral meningitis in October 2014. Pulmonary fibrosis Last Myocardial Infarction Date:: February 15, 2013 History of Any Multi-Drug Resistant Organisms: MRSA Date of last positivie culture/infection: 11/09/17 MDRO Source:: PLEURAL FLUID Past Surgical History: Section, Cholecystectomy, Heart Catheterization , Hernia Repair, Orthopedic Surgery Additional Past Surgical History / Comment(s): Lt ankle surgery,BRONCH Past Anesthesia/Blood Transfusion Reactions: Motion Sickness, Postoperative Nausea & Vomiting (PONV) Additional Past Anesthesia/Blood Transfusion Reaction / Comment(s): pt stated that last April she coded due to anesthetic Past Psychological History: Anxiety, Bipolar, Depression, Panic Disorder Smoking Status: Current every day smoker Past Alcohol Use History: None Reported Past Drug Use History: None Reported - Past Family History Father Family Medical History: Blood Disorder, Congestive Heart Failure (CHF), CVA/TIA , Deep Vein Thrombosis (DVT), Myocardial Infarction (FL) Additional Family Medical History / Comment(s): polycythemia Mother Family Medical History: Congestive Heart Failure (CHF), Diabetes Mellitus, Deep Vein Thrombosis (DVT), Myocardial Infarction (FL), Musculoskeletal Disorder Additional Family Medical History / Comment(s): DDD Sister(s) Family Medical History: No Reported History Brother(s) Family Medical History: No Reported History Son(s) Family Medical History: No Reported History Daughter(s) Family Medical History: No Reported History General Exam - General Exam Comments Initial Comments: GENERAL: The patient is well nourished and well hydrated. VITAL SIGNS: Heart rate, blood pressure, respiratory rate reviewed as recorded in nurse's notes. EYES: Pupils are round and reactive. Extraocular movements are intact. No conjunctival / lid redness or swelling. ENT: No external evidence of injury, swelling, or ecchymosis. Airway is patent. Throat is clear. NECK: Nontender. No swelling or evidence of injury. No subcutaneous emphysema. Trachea is midline. No thyroid mass. No meningeal signs. HEART: Regular rate and rhythm. Good peripheral pulses. LUNGS/CHEST: Breath sounds clear and equal bilaterally. No rales, rhonchi, or wheezes. No ecchymosis, subcutaneous emphysema, or tenderness. ABDOMEN: Abdomen soft without tenderness. No palpable masses or organomegaly. No peritoneal signs. No abdominal wall swelling or ecchymosis. EXTREMITIES: No extremity tenderness. Patient is moving all extremities without any difficulty. NEUROLOGIC: Patient appears quite obtunded. She is arousable to voice and noxious stimuli but does not follow commands. SKIN: No abrasions or ecchymosis is noted. No induration or masses noted. PSYCHIATRIC: Patient appears obtunded. Limitations: no limitations Course Vital Signs 11/12/17 11/12/17 11/12/17 16:14 16:39 17:49 Temperature 98.0 F Pulse Rate 72 74 74 Respiratory 18 16 Rate Blood Pressure 128/74 99/67 O2 Sat by Pulse 96 96 Oximetry 11/12/17 11/12/17 18:07 19:19 Temperature Pulse Rate 72 68 Respiratory 17 Rate Blood Pressure 118/75 O2 Sat by Pulse 97 Oximetry Medical Decision Making - Medical Decision Making The patient was seen and examined. All diagnostics were reviewed. The blood sugar is done and is not low. She also received 0.4 mg of Narcan without any change in mental status. An EKG also was completed and this shows a normal sinus rhythm at a rate of 72. There is no acute ST-T wave changes identified. The GA intervals 144, QRS duration is 70, and the QTC intervals 464. The patient had a chest x-ray which showed some interstitial infiltrates consistent with previous x-ray and essentially unchanged. She also had a computed tomography scan of the brain which does not show any acute processes. The laboratory showed a slight leukocytosis and mild hypokalemia. The CO2 level on the blood gases 42.6 with a pH of 7.41 and a PaO2 of 96. She normally wears 3 L of oxygen per nasal cannula and she is maintained on this with a pulse ox of 96% and stable vitals otherwise. On recheck, she still appears to be obtunded. Old records are reviewed. The exact cause of her current change in mental status is not definitively determined. The urine drug screen did come back positive for opiates, benzodiazepines, barbiturates, tricyclic antidepressants. She is on a myriad of different medications in the possibility of a metabolic encephalopathy certainly is possible. It is felt as though she did require admission to the hospital. Case is discussed with SINDY Gallo and she is agreeable with admission. Dr. Hicks will be consult as well as he is quite familiar with her case. - Lab Data Result diagrams: 11/12/17 16:24 11/12/17 16:24 Lab Results 11/12/17 11/12/17 11/12/17 Range/Units 16:24 16:24 16:24 WBC 13.1 H (3.8-10.6) k/uL RBC 5.29 (3.80-5.40) m/uL Hgb 15.9 (11.4-16.0) gm/dL Hct 46.9 H (34.0-46.0) % MCV 88.6 (80.0-100.0) fL MCH 30.0 (25.0-35.0) pg MCHC 33.8 (31.0-37.0) g/dL RDW 13.1 (11.5-15.5) % Plt Count 339 (150-450) k/uL Neutrophils % 77 % Lymphocytes % 16 % Monocytes % 5 % Eosinophils % 1 % Basophils % 0 % Neutrophils # 10.1 H (1.3-7.7) k/uL Lymphocytes # 2.0 (1.0-4.8) k/uL Monocytes # 0.7 (0-1.0) k/uL Eosinophils # 0.1 (0-0.7) k/uL Basophils # 0.0 (0-0.2) k/uL PT (9.0-12.0) sec INR (<1.2) APTT (22.0-30.0) sec Sample Site ABG pH (7.35-7.45) ABG pCO2 (35-45) mmHg ABG pO2 (83-108) mmHg ABG HCO3 (21-25) mmol/L ABG O2 Saturation (94-97) % ABG Base Excess mmol/L Yohan Test FiO2 % Sodium 137 (137-145) mmol/L Potassium 3.2 L (3.5-5.1) mmol/L Chloride 105 (98-107) mmol/L Carbon Dioxide 27 (22-30) mmol/L Anion Gap 5 mmol/L BUN 17 (7-17) mg/dL Creatinine 0.67 (0.52-1.04) mg/dL Est GFR (CKD-EPI)AfAm >90 (>60 ml/min/1.73 sqM) Est GFR (CKD-EPI)NonAf >90 (>60 ml/min/1.73 sqM) Glucose 136 H (74-99) mg/dL POC Glucose (mg/dL) (75-99) mg/dL POC Glu Broom Stitcher ID Plasma Lactic Acid Chuck (0.7-2.0) mmol/L Calcium 8.4 (8.4-10.2) mg/dL Phosphorus 3.2 (2.5-4.5) mg/dL Magnesium 1.9 (1.6-2.3) mg/dL Total Bilirubin 0.2 (0.2-1.3) mg/dL AST 23 (14-36) U/L ALT 48 (9-52) U/L Alkaline Phosphatase 79 (38-126) U/L Ammonia (<30) umol/L Total Creatine Kinase <20 L (30-135) U/L CK-MB (CK-2) <0.2 (0.0-2.4) ng/mL CK-MB (CK-2) Rel Index Troponin I <0.012 (0.000-0.034) ng/mL Total Protein 5.7 L (6.3-8.2) g/dL Albumin 3.1 L (3.5-5.0) g/dL Urine Color Urine Appearance (Clear) Urine pH (5.0-8.0) Ur Specific [place] (1.001-1.035) Urine Protein (Negative) Urine Glucose (UA) (Negative) Urine Ketones (Negative) Urine Blood (Negative) Urine Nitrite (Negative) Urine Bilirubin (Negative) Urine Urobilinogen (<2.0) mg/dL Ur Leukocyte Esterase (Negative) Urine Opiates Screen (NotDetected) Ur Oxycodone Screen (NotDetected) Urine Methadone Screen (NotDetected) Ur Propoxyphene Screen (NotDetected) Ur Barbiturates Screen (NotDetected) U Tricyclic Antidepress (NotDetected) Ur Phencyclidine Scrn (NotDetected) Ur Amphetamines Screen (NotDetected) U Methamphetamines Scrn (NotDetected) U Benzodiazepines Scrn (NotDetected) Urine Cocaine Screen (NotDetected) U Marijuana (THC) Screen (NotDetected) 11/12/17 11/12/17 11/12/17 Range/Units 16:24 16:24 16:36 WBC (3.8-10.6) k/uL RBC (3.80-5.40) m/uL Hgb (11.4-16.0) gm/dL Hct (34.0-46.0) % MCV (80.0-100.0) fL MCH (25.0-35.0) pg MCHC (31.0-37.0) g/dL RDW (11.5-15.5) % Plt Count (150-450) k/uL Neutrophils % % Lymphocytes % % Monocytes % % Eosinophils % % Basophils % % Neutrophils # (1.3-7.7) k/uL Lymphocytes # (1.0-4.8) k/uL Monocytes # (0-1.0) k/uL Eosinophils # (0-0.7) k/uL Basophils # (0-0.2) k/uL PT 19.0 H (9.0-12.0) sec INR 2.1 H (<1.2) APTT 26.0 (22.0-30.0) sec Sample Site ABG pH (7.35-7.45) ABG pCO2 (35-45) mmHg ABG pO2 (83-108) mmHg ABG HCO3 (21-25) mmol/L ABG O2 Saturation (94-97) % ABG Base Excess mmol/L Yohan Test FiO2 % Sodium (137-145) mmol/L Potassium (3.5-5.1) mmol/L Chloride (98-107) mmol/L Carbon Dioxide (22-30) mmol/L Anion Gap mmol/L BUN (7-17) mg/dL Creatinine (0.52-1.04) mg/dL Est GFR (CKD-EPI)AfAm (>60 ml/min/1.73 sqM) Est GFR (CKD-EPI)NonAf (>60 ml/min/1.73 sqM) Glucose (74-99) mg/dL POC Glucose (mg/dL) 145 H (75-99) mg/dL POC Glu Broom Stitcher ID Ria Santiago Plasma Lactic Acid Chuck 1.7 (0.7-2.0) mmol/L Calcium (8.4-10.2) mg/dL Phosphorus (2.5-4.5) mg/dL Magnesium (1.6-2.3) mg/dL Total Bilirubin (0.2-1.3) mg/dL AST (14-36) U/L ALT (9-52) U/L Alkaline Phosphatase (38-126) U/L Ammonia 20 (<30) umol/L Total Creatine Kinase (30-135) U/L CK-MB (CK-2) (0.0-2.4) ng/mL CK-MB (CK-2) Rel Index Troponin I (0.000-0.034) ng/mL Total Protein (6.3-8.2) g/dL Albumin (3.5-5.0) g/dL Urine Color Urine Appearance (Clear) Urine pH (5.0-8.0) Ur Specific [place] (1.001-1.035) Urine Protein (Negative) Urine Glucose (UA) (Negative) Urine Ketones (Negative) Urine Blood (Negative) Urine Nitrite (Negative) Urine Bilirubin (Negative) Urine Urobilinogen (<2.0) mg/dL Ur Leukocyte Esterase (Negative) Urine Opiates Screen (NotDetected) Ur Oxycodone Screen (NotDetected) Urine Methadone Screen (NotDetected) Ur Propoxyphene Screen (NotDetected) Ur Barbiturates Screen (NotDetected) U Tricyclic Antidepress (NotDetected) Ur Phencyclidine Scrn (NotDetected) Ur Amphetamines Screen (NotDetected) U Methamphetamines Scrn (NotDetected) U Benzodiazepines Scrn (NotDetected) Urine Cocaine Screen (NotDetected) U Marijuana (THC) Screen (NotDetected) 11/12/17 11/12/17 Range/Units 17:46 18:38 WBC (3.8-10.6) k/uL RBC (3.80-5.40) m/uL Hgb (11.4-16.0) gm/dL Hct (34.0-46.0) % MCV (80.0-100.0) fL MCH (25.0-35.0) pg MCHC (31.0-37.0) g/dL RDW (11.5-15.5) % Plt Count (150-450) k/uL Neutrophils % % Lymphocytes % % Monocytes % % Eosinophils % % Basophils % % Neutrophils # (1.3-7.7) k/uL Lymphocytes # (1.0-4.8) k/uL Monocytes # (0-1.0) k/uL Eosinophils # (0-0.7) k/uL Basophils # (0-0.2) k/uL PT (9.0-12.0) sec INR (<1.2) APTT (22.0-30.0) sec Sample Site R radial ABG pH 7.41 (7.35-7.45) ABG pCO2 43 (35-45) mmHg ABG pO2 96 (83-108) mmHg ABG HCO3 27 H (21-25) mmol/L ABG O2 Saturation 98.0 H (94-97) % ABG Base Excess 2.3 mmol/L Yohan Test Yes FiO2 32 % Sodium (137-145) mmol/L Potassium (3.5-5.1) mmol/L Chloride (98-107) mmol/L Carbon Dioxide (22-30) mmol/L Anion Gap mmol/L BUN (7-17) mg/dL Creatinine (0.52-1.04) mg/dL Est GFR (CKD-EPI)AfAm (>60 ml/min/1.73 sqM) Est GFR (CKD-EPI)NonAf (>60 ml/min/1.73 sqM) Glucose (74-99) mg/dL POC Glucose (mg/dL) (75-99) mg/dL POC Glu Broom Stitcher ID Plasma Lactic Acid Chuck (0.7-2.0) mmol/L Calcium (8.4-10.2) mg/dL Phosphorus (2.5-4.5) mg/dL Magnesium (1.6-2.3) mg/dL Total Bilirubin (0.2-1.3) mg/dL AST (14-36) U/L ALT (9-52) U/L Alkaline Phosphatase (38-126) U/L Ammonia (<30) umol/L Total Creatine Kinase (30-135) U/L CK-MB (CK-2) (0.0-2.4) ng/mL CK-MB (CK-2) Rel Index Troponin I (0.000-0.034) ng/mL Total Protein (6.3-8.2) g/dL Albumin (3.5-5.0) g/dL Urine Color Yellow Urine Appearance Clear (Clear) Urine pH 6.5 (5.0-8.0) Ur Specific [place] 1.024 (1.001-1.035) Urine Protein Trace H (Negative) Urine Glucose (UA) Negative (Negative) Urine Ketones Negative (Negative) Urine Blood Negative (Negative) Urine Nitrite Negative (Negative) Urine Bilirubin Negative (Negative) Urine Urobilinogen <2.0 (<2.0) mg/dL Ur Leukocyte Esterase Negative (Negative) Urine Opiates Screen Detected H (NotDetected) Ur Oxycodone Screen Not Detected (NotDetected) Urine Methadone Screen Not Detected (NotDetected) Ur Propoxyphene Screen Not Detected (NotDetected) Ur Barbiturates Screen Detected H (NotDetected) U Tricyclic Antidepress Detected H (NotDetected) Ur Phencyclidine Scrn Not Detected (NotDetected) Ur Amphetamines Screen Not Detected (NotDetected) U Methamphetamines Scrn Not Detected (NotDetected) U Benzodiazepines Scrn Detected H (NotDetected) Urine Cocaine Screen Not Detected (NotDetected) U Marijuana (THC) Screen Not Detected (NotDetected) Disposition Clinical Impression: Encephalopathy, MRSA pneumonia, COPD (chronic obstructive pulmonary disease), Leukocytosis, Hyponatremia, Morbid obesity, Pulmonary fibrosis, Sarcoidosis Disposition: ADMITTED IP TO THIS HOSP Condition: Fair Is patient prescribed a controlled substance at d/c from ED?: No Time of Disposition: 19:54 Decision Date: 11/12/17 Decision Time: 19:55
[2017-11-12] MEDS ORDERED: ACETAMINOPHEN TAB 325 MG TAB PO PRN (20:01)
[2017-11-12] MEDS ORDERED: NALOXONE 0.4 MG/ML 1 ML VIAL IV PRN (20:01)
[2017-11-12] MEDS ORDERED: ONDANSETRON 4 MG/2 ML VIAL IVP PRN (20:01)
[2017-11-12] MEDS ORDERED: PROMETHAZINE PO PRN (20:05)
[2017-11-12] MEDS ORDERED: DOCUSATE 100 MG CAP PO PRN (20:05)
[2017-11-12] MEDS ORDERED: BACLOFEN 10 MG TAB PO PRN (20:05)
[2017-11-12] MEDS ORDERED: DEXTROMETHORPHAN PO PRN (20:05)
[2017-11-12] MEDS ORDERED: LORATADINE 10 MG TAB PO PRN (20:05)
[2017-11-12] MEDS ORDERED: BUTALB/APAP/CAFF 50-325-40MG TAB PO PRN (20:05)
[2017-11-12] MEDS ORDERED: ALPRAZolam 0.5 MG TAB PO PRN (20:05)
[2017-11-12] MEDS ORDERED: POTASSIUM CHLORIDE 20 MEQ in WATER FOR INJECTION 1 100ML.BAG IVPB STA (20:18)
[2017-11-12] MEDS ORDERED: WARFARIN 10 MG TAB PO SCH (21:00)
[2017-11-12] MEDS ORDERED: MIRTAZAPINE 45 MG TABLET PO SCH (21:00)
[2017-11-12] MEDS: SYMBICORT 160-4.5 MCG INHALER INHALATION SCH (21:02)
[2017-11-12 21:32] LABS: Glucose,Whole Blood 123 mg/dL (75-99)
[2017-11-12] MEDS: NYSTATIN 100,000 UNIT/GM POWD 15 GM TOPICAL SCH (22:02)
[2017-11-12] MEDS: guaiFENesin 600 MG TABLET.ER PO SCH (22:02)
[2017-11-12] MEDS: METOPROLOL TARTRATE 50 MG TAB PO SCH (22:02)
[2017-11-12] MEDS: PREGABALIN 75 MG CAP PO SCH (22:02)
[2017-11-12 22:34] LABS: Creatine Kinase <20 U/L (30-135)
[2017-11-12] MEDS: methylPREDNISolone SOD SUCCI 40 MG/ML 1 ML VIAL IV SCH (22:34)
[2017-11-12] MEDS: CEFUROXIME 750 MG in SODIUM CHLORIDE 0.9% 50 ML IVPB SCH (22:34)
[2017-11-12 22:47] LABS: Creatine Kinase MB <0.2 ng/mL (0.0-2.4); Troponin I <0.012 ng/mL (0.000-0.034)
[2017-11-12] MEDS: busPIRone HCl 10 MG TAB PO SCH (23:09)
[2017-11-13] MEDS ORDERED: ONDANSETRON 4 MG TAB PO PRN (00:40)
--- NOTE | 2017-11-13 02:45 | HP ---
HISTORY AND PHYSICAL DATE OF SERVICE: 11/12/2017 CHIEF COMPLAINT: Change in mental status. HISTORY OF PRESENT ILLNESS: This 47-year-old woman with a past medical history of multiple medical problems including COPD, CHF, history of DVT, history of hypertension, hyperlipidemia, history of myocardial infarction being followed by Dr. Liz Koch in the outpatient setting recently admitted with COPD acute exacerbation as well MRSA bronchopneumonia. The patient improved significantly. Patient had a bronchoscopy. The patient was given antibiotics and currently the patient was noted to have some change in mental status. The patient was noted to have some confusion and the patient taken to [facility] and was admitted for further evaluation and treatment. Currently the patient is drowsy, unable to give coherent history. Most of the history taken my discussion with staff and review of the chart. PAST MEDICAL HISTORY: History of recent MRSA bronchopneumonia, history of CHF, COPD, DVT, hypertension and hyperlipidemia. MEDICATIONS: Prior to admission include home medications are: 1. Coumadin 10 mg q.h.s. 2. Promethazine 5 mg q.6h p.r.n. 3. Zofran 4 mg b.i.d. p.r.n. 4. MS Contin 30 mg q8 prn. 5. Remeron 45 mg q.h.s. 6. Colace 100 mg b.i.d. p.r.n. 7. Zyrtec 10 mg daily p.r.n. 8. Fioricet 1 tablet q.4h p.r.n. 9. Lioresal 10 mg t.i.d. p.r.n. 10.Prednisone taper. 11.Zithromax 500 mg p.o. daily. 12.Tylenol 500 mg q.6h p.r.n. 13.Xanax 0.5 p.o. t.i.d. p.r.n. 15.Mucinex 200 mg p.o. b.i.d. 16.BuSpar 30 mg p.o. b.i.d. 17.Lyrica 150 mg p.o. b.i.d. 18.K-Dur 10 mEq p.o. daily. 19.Mycostatin 1 application b.i.d. 20.Lopressor 50 mg b.i.d. 21.DuoNeb q.i.d. 22.Prozac 20 mg p.o. daily. 23.Ceftin 500 mg p.o. b.i.d. 24.Bumex 2 mg p.o. daily. 25.Bumex 4 mg p.o. q.a.m. 26.Symbicort 160/4.5, 1 puff b.i.d. ALLERGIES: MULTIPLE ALLERGIES: KETOROLAC, OPIOIDS, AND IODINATED CONTRAST DYE, XARELTO, IMITREX, MORPHINE, IODINE, ULTRAM, VANCOMYCIN, NICOL . FAMILY HISTORY: Family history of CHF, CVA, TIA, DVT, myocardial infarction,. Review of systems, social history could not be taken because the patient is stuporous at this time. PHYSICAL EXAM: VITAL SIGNS: Pulse is 66, blood pressure 97/54, respiratory rate 17, temp 98.2, pulse ox 97% on 2 L. HEENT: Conjunctivae normal. Oral mucosa moist. Neck is no jugular venous distention. No carotid bruit. No lymph node enlargement. CARDIOVASCULAR: S1, S2. RESPIRATION: Breath sounds diminished in the bases. A few scattered rhonchi and expiratory wheezing also present. ABDOMEN: Soft. Obese. Nontender. LEGS: No edema. No swelling. CENTRAL NERVOUS SYSTEM: No focal deficits. LABS: ABGs noted. UA noted. Drug screen is positive for benzodiazepines, tricyclic antidepressants and barbiturates and opiates. Otherwise WBC is 13.1. INR is 2.[address] scan of the brain shows minimal cerebral atrophy. No acute changes. A chest x-ray which is reviewed showed poor inspiration. ASSESSMENT: 1. Change in mental status, possible acute metabolic encephalopathy, possibly medication induced. 2. History of recent MRSA bronchopneumonia. 3. Chronic obstructive pulmonary disease. 4. History of congestive heart failure. 5. Hypertension. 6. Hyperlipidemia. 7. History of deep vein thrombosis. 8. History of myocardial infarction. 9. History of pulmonary embolism. 10.History of sarcoidosis. 11.History of anxiety, bipolar depression, panic disorder. 12.History of nicotine dependence. RECOMMENDATIONS AND DISCUSSION: This 47-year-old woman who presented with multiple complex medical issues. We will monitor the patient closely. Continue the current medications, symptomatic treatment. I would recommend to hold antipsychotic medication and sedatives for now. Otherwise, I will recommend broad-spectrum IV antibiotics and I would also recommend infectious disease evaluation. Prognosis guarded because of multiple complex medical issues. Further recommendations to follow. Copy of dictation being forwarded to Dr. Liz Koch who is the primary physician. See orders for details. MMODL / IJN: [id number] / [id number]
[2017-11-13] MEDS: methylPREDNISolone SOD SUCCI 40 MG/ML 1 ML VIAL IV SCH ×2 (04:08→09:10)
[2017-11-13 05:29] LABS: Creatine Kinase <20 U/L (30-135)
[2017-11-13 05:37] LABS: INR 1.9 (<1.2); Prothrombin Time 17.2 sec (9.0-12.0)
[2017-11-13 05:41] LABS: Creatine Kinase MB <0.2 ng/mL (0.0-2.4); Troponin I <0.012 ng/mL (0.000-0.034)
[2017-11-13] MEDS: CEFUROXIME 750 MG in SODIUM CHLORIDE 0.9% 50 ML IVPB SCH (05:51)
[2017-11-13 05:59] VITALS: BP 131/75; PULSE 76; TEMP 98.4
[2017-11-13 07:14] LABS: Glucose,Whole Blood 133 mg/dL (75-99)
[2017-11-13] MEDS: IPRATROPIUM-ALBUTEROL 3 ML NEB INHALATION SCH ×2 (07:24→11:23)
[2017-11-13] MEDS: SYMBICORT 160-4.5 MCG INHALER INHALATION SCH (07:24)
[2017-11-13] MEDS ORDERED: BUMETANIDE 1 MG TAB PO SCH ×2 (09:00→12:00)
[2017-11-13] MEDS ORDERED: lamoTRIgine 100 MG TAB PO SCH (09:00)
[2017-11-13] MEDS ORDERED: AZITHROMYCIN 500 MG in DEXTROSE 5% IN WATER 250 ML IVPB SCH ×2 (09:00)
[2017-11-13] MEDS ORDERED: POTASSIUM CHLORIDE ER 20 MEQ TAB.ER PO SCH (09:00)
[2017-11-13] MEDS ORDERED: PANTOPRAZOLE 40 MG/10 ML VIAL IV SCH (09:00)
[2017-11-13] MEDS ORDERED: FLUoxetine HCL 20 MG CAP PO SCH (09:00)
[2017-11-13] MEDS: METOPROLOL TARTRATE 50 MG TAB PO SCH (09:06)
[2017-11-13] MEDS: busPIRone HCl 10 MG TAB PO SCH (09:06)
[2017-11-13] MEDS: guaiFENesin 600 MG TABLET.ER PO SCH (09:06)
[2017-11-13] MEDS: PREGABALIN 75 MG CAP PO SCH (09:06)
[2017-11-13] MEDS: NYSTATIN 100,000 UNIT/GM POWD 15 GM TOPICAL SCH (09:07)
[2017-11-13] MEDS ORDERED: VANCOMYCIN 1,000 MG in SODIUM CHLORIDE 0.9% 250 ML IVPB STA (10:43)
[2017-11-13] MEDS ORDERED: diphenhydrAMINE 50 MG/ML 1 ML VIAL IVP PRN (10:44)
[2017-11-13] MEDS ORDERED: VANCOMYCIN IV PER PHARMACY 1 EACH MISC MISCELLANE PRN (10:45)
[2017-11-13] MEDS ORDERED: VANCOMYCIN 1,750 MG in SODIUM CHLORIDE 0.9% 500 ML IVPB SCH (12:00)
[2017-11-13 12:03] LABS: Glucose,Whole Blood 141 mg/dL (75-99)
[2017-11-13] MEDS ORDERED: FLUCONAZOLE IN NACL,ISO-OSM 200 MG in SALINE 1 100ML.BAG IVPB ONE (13:00)
--- NOTE | 2017-11-13 13:15 | P.CNPUL ---
History of Present Illness Consult date: 11/13/17 Requesting physician: Gonsalo Church Reason for consult: other Chief complaint: Altered mental status, nausea, MRSA pneumonia History of present illness: Meme is a 47-year-old white female patient of Dr. Koch, was recently discharged from the hospital on 11/10/2017 after being hospitalized for COPD exacerbation, patient underwent bronchoscopy, which were positive for MRSA, alpha hemolytic strep and enterococcus faecalis. Patient was treated with Rocephin and Zithromax during that admission, and had clinical improvement, and the results of the bronchial wash cultures were not available to us prior to discharge. She was discharged home on Zithromax and Ceftin. After patient went home she started experiencing mental status changes, however she denied taking any excessive amounts of narcotics, sedatives. Did not have any difficulty breathing, no increased chest congestion or sputum production. No fever, no chills. Did not complain of any pain. Emergency department she was given a dose of Narcan, no significant improvement in her mentation. Currently patient's mentation is back to normal, she is awake alert, responding appropriately, no focal neurological deficits noted. Brain CT showed no acute intracranial abnormality. Chest x-ray showed interstitial infiltrates, note that patient has chronic interstitial changes related to her history of sarcoidosis. 9 any fever or chills, denied any chest wall tenderness, she still bringing up some brown colored sputum. Afebrile, was dynamically stable, hemodynamic stable, she is on 2 L per nasal cannula with pulse ox of 95%. Other past medical history includes chronic hypoxic respiratory failure, secondary to COPD, pulmonary embolisms on Coumadin, obesity with features of obstructive sleep apnea, anxiety, CAD, history of myocardial infarction, or disorder, recurrent hospitalizations for respiratory complications, hypertension, hyperlipidemia, fibromyalgia. Patient was started on azithromycin and ceftriaxone, was consulted, we will initiate vancomycin. Patient has urges to vancomycin, however she is able to take it if she is premedicated with IV Benadryl. Review of Systems All systems: negative Constitutional: Denies chills, Denies fever Eyes: denies blurred vision, denies pain Ears, nose, mouth and throat: Denies headache, Denies sore throat Cardiovascular: Denies chest pain, Denies shortness of breath Respiratory: Reports cough with sputum, Reports dyspnea, Reports home oxygen, Reports respiratory infections, Denies cough Gastrointestinal: Denies abdominal pain, Denies diarrhea, Denies nausea, Denies vomiting Genitourinary: Denies dysuria, Denies hematuria Musculoskeletal: Denies myalgias Integumentary: Denies pruritus, Denies rash Neurological: Reports change in mentation, Denies numbness, Denies weakness Psychiatric: Denies anxiety, Denies depression Endocrine: Denies fatigue, Denies weight change Past Medical History Past Medical History: Blood Disorder, Heart Failure, COPD, Deep Vein Thrombosis (DVT), Hyperlipidemia, Hypertension, Myocardial Infarction (MD), Musculoskeletal Disorder, Pneumonia, Pulmonary Embolus (PE), Thyroid Disorder Additional Past Medical History / Comment(s): PE 2012; Sarcoidosis diagnosed in 2015 following a bronchoscopy and lung biopsy done at [facility] and she was started on predniosone and she took the therapy for almost 1 year, polycythemia, overweight, bilateral PE (2011, 2015), bilateral DVTs, fibromyalgia, bipolar disorder, degenerative disk disorder, coronary artery disease along with previous history of a MD and ventilator dependent respiratory failure with MRSA pneumonia for which the patient was hospitalized [facility] in 2012. Viral meningitis in October 2014. Pulmonary fibrosis, home 02 3l n/c Last Myocardial Infarction Date:: February 15, 2013 History of Any Multi-Drug Resistant Organisms: MRSA Date of last positivie culture/infection: 11/09/17 MDRO Source:: PLEURAL FLUID Past Surgical History: Section, Cholecystectomy, Heart Catheterization , Hernia Repair, Orthopedic Surgery Additional Past Surgical History / Comment(s): Lt ankle surgery, several bronchosopy-most recently 11/09/17 Past Anesthesia/Blood Transfusion Reactions: Motion Sickness, Postoperative Nausea & Vomiting (PONV) Additional Past Anesthesia/Blood Transfusion Reaction / Comment(s): previously charted -pt stated that last April she coded due to anesthetic Smoking Status: Current every day smoker - Past Family History Father Family Medical History: Blood Disorder, Congestive Heart Failure (CHF), CVA/TIA , Deep Vein Thrombosis (DVT), Myocardial Infarction (MD) Additional Family Medical History / Comment(s): polycythemia Mother Family Medical History: Congestive Heart Failure (CHF), Diabetes Mellitus, Deep Vein Thrombosis (DVT), Myocardial Infarction (MD), Musculoskeletal Disorder Additional Family Medical History / Comment(s): DDD Sister(s) Family Medical History: No Reported History Brother(s) Family Medical History: No Reported History Son(s) Family Medical History: No Reported History Daughter(s) Family Medical History: No Reported History Medications and Allergies Home Medications Medication Instructions Recorded Confirmed Type Cetirizine HCl [Zyrtec] 10 mg PO DAILY PRN 07/16/14 11/12/17 History FLUoxetine HCL [PROzac] 20 mg PO DAILY #30 capsule 08/20/15 11/12/17 Rx Metoprolol Tartrate [Lopressor] 50 mg PO BID #60 tab 08/20/15 11/12/17 Rx lamoTRIgine [LaMICtal] 200 mg PO DAILY 03/22/16 11/12/17 History Bumetanide 4 mg PO QAM 10/18/16 11/12/17 History Butalb/APAP/Caff 50-325-40Mg 1 tab PO Q4H PRN 10/18/16 11/12/17 History [Fioricet 50-325-40] Ondansetron HCl [Zofran] 4 mg PO BID PRN 10/18/16 11/12/17 History Mirtazapine [Remeron] 45 mg PO HS 04/10/17 11/12/17 History ALPRAZolam [Xanax] 0.5 mg PO TID PRN 06/06/17 11/12/17 History Bumetanide [BUMEX] 2 mg PO DAILY@1200 09/16/17 11/12/17 History Pregabalin [Lyrica] 150 mg PO BID 09/16/17 11/12/17 History Warfarin Sodium [Jantoven] 10 mg PO HS 09/16/17 11/12/17 History busPIRone HCL [Buspar] 30 mg PO BID 09/16/17 11/12/17 History Baclofen [Lioresal] 20 mg PO Q8H PRN 10/09/17 11/12/17 History Morphine Sulfate ER [Ms Contin] 30 mg PO Q8H PRN 11/03/17 11/12/17 History Nystatin 100,000 Unit/gm Powd 1 applic TOPICAL BID 11/04/17 11/12/17 History [Mycostatin Powder] Promethazine/Dextromethorphan 5 ml PO Q6H PRN 11/04/17 11/12/17 History [Promethazine-Dm Solution] Acetaminophen Tab [Tylenol] 500 mg PO Q6HR PRN tab 11/10/17 11/12/17 Rx Budesonide/Formoterol Fumarate 1 puff IH BID #1 hfa.aer.ad 11/10/17 11/12/17 Rx [Symbicort 160-4.5 Mcg Inhaler] Docusate [Colace] 100 mg PO BID PRN #60 cap 11/10/17 11/12/17 Rx Ipratropium-Albuterol Nebulize 3 ml INHALATION RT-QID #120 11/10/17 11/12/17 Rx [Duoneb 0.5 mg-3 mg/3 ml Soln] ampul.neb Potassium Chloride ER [K-Dur 20] 20 meq PO DAILY #30 tab.er.prt 11/10/17 Rx guaiFENesin [Mucinex] 1,200 mg PO Q12HR #40 tablet.er 11/10/17 11/12/17 Rx Fluconazole 200 mg PO DAILY #14 tab 11/13/17 Rx Sulfamethox-Tmp 800-160Mg [Bactrim 1 tab PO Q12HR #28 tab 11/13/17 Rx DS 800-160 mg] predniSONE See Taper PO DIRECTED #0 11/13/17 11/12/17 Rx Allergies Allergy/AdvReac Type Severity Reaction Status Date / Time ketorolac tromethamine Allergy Severe Anaphylaxis Verified 11/12/17 16:22 [From Toradol] Opioids - Morphine Analogues Allergy Mild Itching Verified 11/12/17 16:22 Iodinated Contrast- Oral and Allergy Unknown Verified 11/12/17 16:22 IV Dye rivaroxaban [From Xarelto] Allergy Rash/Hives Verified 11/12/17 16:22 sumatriptan [From Imitrex] Allergy Anaphylaxis Verified 11/12/17 16:22 sumatriptan succinate Allergy Anaphylaxis Verified 11/12/17 16:22 [From Imitrex] morphine AdvReac Severe Itching Verified 11/12/17 16:22 iodine AdvReac Intermediate Itching Verified 11/12/17 16:22 tramadol AdvReac Anaphylaxis Verified 11/12/17 16:22 vancomycin AdvReac Itching Verified 11/12/17 16:22 Rich wipes AdvReac Severe Rash/Hives Uncoded 09/16/17 15:30 Physical Exam Vitals: Vital Signs Temp Pulse Pulse Resp BP BP Pulse Ox 11/13/17 05:00 98.4 F 76 17 131/75 95 11/12/17 22:00 98.1 F 68 17 119/70 95 11/12/17 21:24 67 17 115/61 97 11/12/17 20:29 66 17 97/54 97 11/12/17 19:19 68 17 118/75 97 11/12/17 18:07 72 11/12/17 17:49 74 11/12/17 16:39 74 16 99/67 96 11/12/17 16:14 98.0 F 72 18 128/74 96 Intake and Output 11/12/17 11/13/17 11/13/17 22:59 06:59 14:59 Intake Total 700 Balance 700 Intake: Intake, IV Titration 700 Amount Cefuroxime 750 mg In 50 Sodium Chloride 0.9% 50 ml @ 100 mls/hr IVPB Q8H [facility] Rx#:[id number] Sodium Chloride 0.9% 1, 650 000 ml @ 100 mls/hr IV . Q10H [facility] Rx#:[id number] Other: Voiding Method Indwelling Catheter Weight 108.862 kg GENERAL EXAM: Alert, pleasant 47-year-old obese white female comfortable in no apparent distress. HEAD: Normocephalic/atraumatic. EYES: Normal reaction of pupils, equal size. Conjunctiva pink, sclera white. NOSE: Clear with pink turbinates. THROAT: No erythema or exudates. NECK: No masses, no JVD, no thyroid enlargement, no adenopathy. CHEST: No chest wall deformity. Symmetrical expansion. LUNGS: Diminished breath sounds, diffuse scattered rhonchi, no significant wheezes. CVS: Regular rate and rhythm, normal S1 and S2, no gallops, no murmurs, no rubs ABDOMEN: Soft, nontender. No hepatosplenomegaly, normal bowel sounds, no guarding or rigidity. EXTREMITIES: No clubbing, no edema, no cyanosis, 2+ pulses and upper and lower extremities. MUSCULOSKELETAL: Muscle strength and tone normal. SPINE: No scoliosis or deformity SKIN: No rashes CENTRAL NERVOUS SYSTEM: Alert and oriented -3. No focal deficits, tone is normal in all 4 extremities. PSYCHIATRIC: Alert and oriented -3. Appropriate affect. Intact judgment and insight. Results - Laboratory Findings CBC and BMP: 11/12/17 16:24 11/12/17 16:24 ABG ABG pH 7.41 (7.35-7.45) 11/12/17 17:46 ABG pCO2 43 mmHg (35-45) 11/12/17 17:46 ABG pO2 96 mmHg (83-108) 11/12/17 17:46 ABG O2 Saturation 98.0 % (94-97) H 11/12/17 17:46 PT/INR, D-dimer PT 17.2 sec (9.0-12.0) H 11/13/17 05:04 INR 1.9 (<1.2) H 11/13/17 05:04 Abnormal lab findings: Abnormal Labs 11/12/17 11/12/17 11/12/17 16:24 16:24 16:24 WBC 13.1 H Hct 46.9 H Neutrophils # 10.1 H PT INR ABG HCO3 ABG O2 Saturation Potassium 3.2 L Glucose 136 H POC Glucose (mg/dL) Total Creatine Kinase <20 L Total Protein 5.7 L Albumin 3.1 L Urine Protein Urine Opiates Screen Ur Barbiturates Screen U Tricyclic Antidepress U Benzodiazepines Scrn 11/12/17 11/12/17 11/12/17 16:24 16:36 17:46 WBC Hct Neutrophils # PT 19.0 H INR 2.1 H ABG HCO3 27 H ABG O2 Saturation 98.0 H Potassium Glucose POC Glucose (mg/dL) 145 H Total Creatine Kinase Total Protein Albumin Urine Protein Urine Opiates Screen Ur Barbiturates Screen U Tricyclic Antidepress U Benzodiazepines Scrn 11/12/17 11/12/17 11/12/17 18:38 21:30 22:05 WBC Hct Neutrophils # PT INR ABG HCO3 ABG O2 Saturation Potassium Glucose POC Glucose (mg/dL) 123 H Total Creatine Kinase <20 L Total Protein Albumin Urine Protein Trace H Urine Opiates Screen Detected H Ur Barbiturates Screen Detected H U Tricyclic Antidepress Detected H U Benzodiazepines Scrn Detected H 11/13/17 11/13/17 11/13/17 05:04 05:04 07:12 WBC Hct Neutrophils # PT 17.2 H INR 1.9 H ABG HCO3 ABG O2 Saturation Potassium Glucose POC Glucose (mg/dL) 133 H Total Creatine Kinase <20 L Total Protein Albumin Urine Protein Urine Opiates Screen Ur Barbiturates Screen U Tricyclic Antidepress U Benzodiazepines Scrn 11/13/17 12:02 WBC Hct Neutrophils # PT INR ABG HCO3 ABG O2 Saturation Potassium Glucose POC Glucose (mg/dL) 141 H Total Creatine Kinase Total Protein Albumin Urine Protein Urine Opiates Screen Ur Barbiturates Screen U Tricyclic Antidepress U Benzodiazepines Scrn - Diagnostic Findings Chest x-ray: report reviewed, image reviewed Additional studies: Brain CT, EKG reviewed Assessment and Plan Plan: Assessment #1. Altered mental status, the etiology of which is unknown, resolved #2. Recent hospitalization for acute COPD exacerbation with tracheobronchitis, and bronchial wash cultures were positive for MRSA and polymicrobial growth including Streptococcus species and enterococcus. #3. COPD with chronic hypoxic respiratory failure #4. History of sarcoidosis, recently treated with systemic steroids #5. Pulmonary embolisms on Coumadin #6. Nicotine addiction, ongoing #7. Anxiety/bipolar disorder #8. Coronary artery disease, history of myocardial infarction #9. Recurrent hospitalizations for respiratory complications #10. Degenerative disc disease, fibromyalgia #11. Hypertension, hyperlipidemia #12. Obesity with features of obstructive sleep apnea Plan: We will start vancomycin pharmacy to dose, ID service has been consulted, will await their recommendation. Patient has ALLERGIES to vancomycin, but is able to take it with premedication with Benadryl. Appears calm and comfortable, in no distress, no fever, no chills, no chest wall tenderness. No significant congestion, no wheezing. Continue with nebulized bronchodilators. Her mentation has recovered, and currently there is no signs of alteration in for mentation. We'll continue to follow I performed a history & physical examination of the patient and discussed their management with my nurse practitioner, Cydney Hart. I reviewed the nurse practitioner's note and agree with the documented findings and plan of care. Lung sounds are few scattered rhonchi. The findings and the impression was discussed with the patient. I attest to the documentation by the nurse practitioner. Time with Patient: Greater than 30
--- NOTE | 2017-11-13 13:26 | P.CNNES ---
History of Present Illness Consult date: 11/13/17 Reason for Consult: Patient admitted with a metabolic encephalopathy and confusion. History of Present Illness: This patient is a 47-year-old right-handed white female who is seen today in neurology consultation for evaluation of altered mental status and confusion. Patient was brought into the emergency room at [facility] yesterday for further evaluation of sudden change in mentation. Patient had just been discharged from the hospital the day previously after being treated for bronchopneumonia. She had undergone a bronchoscopy procedure during that admission and was placed on some oral antibiotics and discharge home. Apparently after today she showed increased confusion and lethargy at home. Her was very concerned and brought her to the emergency room yesterday for further evaluation. She was seen in the ER by Dr. Ponce who evaluated her. She did seem to be lethargic in the ER and was sent for a computed tomography scan of the brain. A CAT scan of the brain was completed yesterday and revealed minimal cerebral atrophy. No acute intracranial abnormality was noted. The patient was subtly admitted to hospital yesterday. She was very obtunded and lethargic. She was seen by infectious disease this morning and was evaluated by Dr. Lott. She was started on vancomycin and fluconazole as she had MRSA plus yeast infection. The patient was started on IV antibiotic therapy. She has shown some improvement this afternoon and is much more awake and alert according to the . She is able to answer all questions appropriately. She does have a rather complicated past medical history which includes sarcoidosis, polycythemia and multiple pulmonary emboli and DVTs, recurrent pneumonia, and history of congestive heart failure. The patient was afebrile this morning. She is much more awake and alert and is able to answer questions appropriately. She is being evaluated for possible PICC line placement for IV antibiotic therapy at the time of discharge. According to the patient Dr. Lott is thinking she may do fine with just oral antibiotics for discharge possibly tomorrow. The patient denies any previous history of TIA or stroke. She does have mild confusion which has been off and on since her admission. She is doing much better today in terms of her cognition and according to the is near baseline level of function. 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 She may benefit from having an MRI of the brain to rule out any possibility of neurosarcoidosis. She will bring this up at her next meeting with Dr. Hicks which is in the next few weeks. As noted the patient is currently being treated with IV antibiotics. We will await further recommendations from Dr. Lott. Neurologically she remains very much intact and denies any headache or focal weakness. Neurology is now been consulted for further evaluation and recommendations. Review of Systems Constitutional: Denies chills, Denies fever Eyes: denies blurred vision, denies pain Ears, nose, mouth and throat: Denies headache, Denies sore throat Cardiovascular: Denies chest pain, Denies shortness of breath Respiratory: Reports cough with sputum, Reports excessive sputum, Reports sleep apnea, Denies cough Gastrointestinal: Denies abdominal pain, Denies diarrhea, Denies nausea, Denies vomiting Genitourinary: Denies dysuria, Denies hematuria Musculoskeletal: Denies myalgias Integumentary: Denies pruritus, Denies rash Neurological: Reports change in mentation, Reports confusion, Reports weakness Psychiatric: Denies anxiety, Denies depression Endocrine: Denies fatigue, Denies weight change Past Medical History Past Medical History: Blood Disorder, Heart Failure, COPD, Deep Vein Thrombosis (DVT), Hyperlipidemia, Hypertension, Myocardial Infarction (MS), Musculoskeletal Disorder, Pneumonia, Pulmonary Embolus (PE), Thyroid Disorder Additional Past Medical History / Comment(s): PE 2012; Sarcoidosis diagnosed in 2015 following a bronchoscopy and lung biopsy done at [facility] and she was started on predniosone and she took the therapy for almost 1 year, polycythemia, overweight, bilateral PE (2011, 2015), bilateral DVTs, fibromyalgia, bipolar disorder, degenerative disk disorder, coronary artery disease along with previous history of a MS and ventilator dependent respiratory failure with MRSA pneumonia for which the patient was hospitalized [facility] in 2012. Viral meningitis in October 2014. Pulmonary fibrosis, home 02 3l n/c Last Myocardial Infarction Date:: February 15, 2013 History of Any Multi-Drug Resistant Organisms: MRSA Date of last positivie culture/infection: 11/09/17 MDRO Source:: PLEURAL FLUID Past Surgical History: Section, Cholecystectomy, Heart Catheterization , Hernia Repair, Orthopedic Surgery Additional Past Surgical History / Comment(s): Lt ankle surgery, several bronchosopy-most recently 11/09/17 Past Anesthesia/Blood Transfusion Reactions: Motion Sickness, Postoperative Nausea & Vomiting (PONV) Additional Past Anesthesia/Blood Transfusion Reaction / Comment(s): previously charted -pt stated that last April she coded due to anesthetic Smoking Status: Current every day smoker - Past Family History Father Family Medical History: Blood Disorder, Congestive Heart Failure (CHF), CVA/TIA , Deep Vein Thrombosis (DVT), Myocardial Infarction (MS) Additional Family Medical History / Comment(s): polycythemia Mother Family Medical History: Congestive Heart Failure (CHF), Diabetes Mellitus, Deep Vein Thrombosis (DVT), Myocardial Infarction (MS), Musculoskeletal Disorder Additional Family Medical History / Comment(s): DDD Sister(s) Family Medical History: No Reported History Brother(s) Family Medical History: No Reported History Son(s) Family Medical History: No Reported History Daughter(s) Family Medical History: No Reported History Medications and Allergies Home Medications Medication Instructions Recorded Confirmed Type Cetirizine HCl [Zyrtec] 10 mg PO DAILY PRN 07/16/14 11/12/17 History FLUoxetine HCL [PROzac] 20 mg PO DAILY #30 capsule 08/20/15 11/12/17 Rx Metoprolol Tartrate [Lopressor] 50 mg PO BID #60 tab 08/20/15 11/12/17 Rx lamoTRIgine [LaMICtal] 200 mg PO DAILY 03/22/16 11/12/17 History Bumetanide 4 mg PO QAM 10/18/16 11/12/17 History Butalb/APAP/Caff 50-325-40Mg 1 tab PO Q4H PRN 10/18/16 11/12/17 History [Fioricet 50-325-40] Ondansetron HCl [Zofran] 4 mg PO BID PRN 10/18/16 11/12/17 History Mirtazapine [Remeron] 45 mg PO HS 04/10/17 11/12/17 History ALPRAZolam [Xanax] 0.5 mg PO TID PRN 06/06/17 11/12/17 History Bumetanide [BUMEX] 2 mg PO DAILY@1200 09/16/17 11/12/17 History Pregabalin [Lyrica] 150 mg PO BID 09/16/17 11/12/17 History Warfarin Sodium [Jantoven] 10 mg PO HS 09/16/17 11/12/17 History busPIRone HCL [Buspar] 30 mg PO BID 09/16/17 11/12/17 History Baclofen [Lioresal] 20 mg PO Q8H PRN 10/09/17 11/12/17 History Morphine Sulfate ER [Ms Contin] 30 mg PO Q8H PRN 11/03/17 11/12/17 History Nystatin 100,000 Unit/gm Powd 1 applic TOPICAL BID 11/04/17 11/12/17 History [Mycostatin Powder] Promethazine/Dextromethorphan 5 ml PO Q6H PRN 11/04/17 11/12/17 History [Promethazine-Dm Solution] Acetaminophen Tab [Tylenol] 500 mg PO Q6HR PRN tab 11/10/17 11/12/17 Rx Budesonide/Formoterol Fumarate 1 puff IH BID #1 hfa.aer.ad 11/10/17 11/12/17 Rx [Symbicort 160-4.5 Mcg Inhaler] Docusate [Colace] 100 mg PO BID PRN #60 cap 11/10/17 11/12/17 Rx Ipratropium-Albuterol Nebulize 3 ml INHALATION RT-QID #120 11/10/17 11/12/17 Rx [Duoneb 0.5 mg-3 mg/3 ml Soln] ampul.neb Potassium Chloride ER [K-Dur 20] 20 meq PO DAILY #30 tab.er.prt 11/10/17 Rx guaiFENesin [Mucinex] 1,200 mg PO Q12HR #40 tablet.er 11/10/17 11/12/17 Rx Fluconazole 200 mg PO DAILY #14 tab 11/13/17 Rx Sulfamethox-Tmp 800-160Mg [Bactrim 1 tab PO Q12HR #28 tab 11/13/17 Rx DS 800-160 mg] predniSONE See Taper PO DIRECTED #0 11/13/17 11/12/17 Rx Allergies Allergy/AdvReac Type Severity Reaction Status Date / Time ketorolac tromethamine Allergy Severe Anaphylaxis Verified 11/12/17 16:22 [From Toradol] Opioids - Morphine Analogues Allergy Mild Itching Verified 11/12/17 16:22 Iodinated Contrast- Oral and Allergy Unknown Verified 11/12/17 16:22 IV Dye rivaroxaban [From Xarelto] Allergy Rash/Hives Verified 11/12/17 16:22 sumatriptan [From Imitrex] Allergy Anaphylaxis Verified 11/12/17 16:22 sumatriptan succinate Allergy Anaphylaxis Verified 11/12/17 16:22 [From Imitrex] morphine AdvReac Severe Itching Verified 11/12/17 16:22 iodine AdvReac Intermediate Itching Verified 11/12/17 16:22 tramadol AdvReac Anaphylaxis Verified 11/12/17 16:22 vancomycin AdvReac Itching Verified 11/12/17 16:22 Rich wipes AdvReac Severe Rash/Hives Uncoded 09/16/17 15:30 Physical Examination - Vital Signs Vital Signs: Vital Signs Temp Pulse Pulse Resp BP BP Pulse Ox 11/13/17 05:00 98.4 F 76 17 131/75 95 11/12/17 22:00 98.1 F 68 17 119/70 95 11/12/17 21:24 67 17 115/61 97 11/12/17 20:29 66 17 97/54 97 11/12/17 19:19 68 17 118/75 97 11/12/17 18:07 72 11/12/17 17:49 74 11/12/17 16:39 74 16 99/67 96 11/12/17 16:14 98.0 F 72 18 128/74 96 Intake and Output 11/12/17 11/12/17 11/13/17 14:59 22:59 06:59 Intake Total 700 Balance 700 Intake: Intake, IV Titration 700 Amount Cefuroxime 750 mg In 50 Sodium Chloride 0.9% 50 ml @ 100 mls/hr IVPB Q8H [facility] Rx#:[id number] Sodium Chloride 0.9% 1, 650 000 ml @ 100 mls/hr IV . Q10H [facility] Rx#:[id number] Other: Voiding Method Indwelling Catheter Weight 108.862 kg - Constitutional General appearance: average body habitus, cooperative - EENT EENT: PERRL, mucous membranes moist - Respiratory Respiratory: lungs clear, normal breath sounds - Cardiovascular Cardiovascular: regular rate, normal S1, normal S2 Extremities: no peripheral edema bilaterally - Gastrointestinal Gastrointestinal: normoactive bowel sounds - Integumentary Integumentary: normal - Neurologic Cranial nerve examination: PERRL, EOMI, V1/V2/V3 grossly intact, face symmetric , tongue midline, intact gag reflex, intact corneal reflex, normal palatal elevation Speech examination: intact Sensorimotor examination: intact Motor examination - right side: 4/5: biceps, triceps, wrist flexion, wrist extension, billet shearer, hip flexors, knee extensors, dorsiflexion, toe extension (EHL) , plantarflexion Motor examination - left side: 4/5: biceps, triceps, wrist flexion, wrist extension, billet shearer, hip flexors, knee extensors, dorsiflexion, toe extension (EHL) , plantarflexion Detailed sensory examination: intact Reflex and gait examination: intact Reflexes: 1+: ankle, bicep, knee, tricep - Musculoskeletal Musculoskeletal: no pain - Psychiatric Psychiatric: mood/affect appropriate, cooperative Results - Laboratory Findings CBC and BMP: 11/12/17 16:24 11/12/17 16:24 Abnormal Lab Findings: Abnormal Labs 11/12/17 11/12/17 11/12/17 16:24 16:24 16:24 WBC 13.1 H Hct 46.9 H Neutrophils # 10.1 H PT INR ABG HCO3 ABG O2 Saturation Potassium 3.2 L Glucose 136 H POC Glucose (mg/dL) Total Creatine Kinase <20 L Total Protein 5.7 L Albumin 3.1 L Urine Protein Urine Opiates Screen Ur Barbiturates Screen U Tricyclic Antidepress U Benzodiazepines Scrn 11/12/17 11/12/17 11/12/17 16:24 16:36 17:46 WBC Hct Neutrophils # PT 19.0 H INR 2.1 H ABG HCO3 27 H ABG O2 Saturation 98.0 H Potassium Glucose POC Glucose (mg/dL) 145 H Total Creatine Kinase Total Protein Albumin Urine Protein Urine Opiates Screen Ur Barbiturates Screen U Tricyclic Antidepress U Benzodiazepines Scrn 11/12/17 11/12/17 11/12/17 18:38 21:30 22:05 WBC Hct Neutrophils # PT INR ABG HCO3 ABG O2 Saturation Potassium Glucose POC Glucose (mg/dL) 123 H Total Creatine Kinase <20 L Total Protein Albumin Urine Protein Trace H Urine Opiates Screen Detected H Ur Barbiturates Screen Detected H U Tricyclic Antidepress Detected H U Benzodiazepines Scrn Detected H 11/13/17 05:04 WBC Hct Neutrophils # PT INR ABG HCO3 ABG O2 Saturation Potassium Glucose POC Glucose (mg/dL) Total Creatine Kinase <20 L Total Protein Albumin Urine Protein Urine Opiates Screen Ur Barbiturates Screen U Tricyclic Antidepress U Benzodiazepines Scrn Assessment and Plan (1) Acute metabolic encephalopathy Current Visit: Yes Status: Acute Code(s): G93.41 - METABOLIC ENCEPHALOPATHY SNOMED Code(s): 79085152 (2) MRSA (methicillin resistant staph aureus) culture positive Current Visit: Yes Status: Acute Code(s): Z22.322 - CARRIER OR SUSPECTED CARRIER OF METHICILLIN RESIS STAPH SNOMED Code(s): 622829633 (3) Sarcoidosis Current Visit: Yes Status: Acute Code(s): D86.9 - SARCOIDOSIS, UNSPECIFIED SNOMED Code(s): 35815538 (4) History of deep venous thrombosis or pulmonary embolus Current Visit: No Status: Acute Priority: High Code(s): XJV3538 - SNOMED Code(s): 410216154 (5) Bipolar disorder Current Visit: No Status: Acute Code(s): F31.9 - BIPOLAR DISORDER, UNSPECIFIED SNOMED Code(s): 46126875 Plan: This patient is a 47-year-old right-handed white female who was admitted to hospital yesterday for evaluation of sudden change in mentation and altered mental status. She had just recently been discharged from hospital after being treated for bronchopneumonia as well as MRSA. She was discharge on oral antibiotics and sent home. According to the she developed increased confusion and lethargy yesterday and he decided to bring her to the emergency room at [facility] for further evaluation. She was seen in the ER by Dr. Ponce who ordered a computed tomography scan of the brain. CAT scan of the brain revealed minimal changes of cerebral atrophy with no acute intracranial abnormality. She was subsequent admitted to hospital for further evaluation. She was afebrile yesterday in the ER but did come back testing positive for MRSA. She was also found this morning to have yeast infection. She was seen by infectious disease and Dr. Lott earlier today and was started on vancomycin and fluconazole. Patient likely will require aggressive treatment with IV antibiotics over the next several days. She is being considered for PICC line placement. Her mental status is shown significant improvement since being started on antibiotic therapy. She is much more awake and alert and is able to answer all questions appropriately. This patient likely has an acute metabolic encephalopathy secondary to sepsis. We did discuss her diagnosis of sarcoidosis for the past 2 years and is being followed by Dr. Hicks. We suggest that she have an MRI of the brain done at some point to further evaluate and rule out neurosarcoidosis. She will discuss this further with Dr. Hicks at her next office visit. Neurologically she remains intact with a nonfocal neurological examination today. We will await further recommendations are multiple specialists that her seeing her. Her overall prognosis at this time remains very guarded. Case was discussed at length with the patient and her . All of their questions were answered. They're aware of her guarded condition. We will continue close neurological follow-up with this patient during this admission. Time with Patient: Greater than 30
--- NOTE | 2017-11-13 15:31 | PN ---
PROGRESS NOTE DATE OF SERVICE: 11/13/2017 This is a 47-year-old woman who was admitted with change in mental status, is being closely monitored. Dr. Lott is recommending p.o. antibiotic. No chest pain. No palpitations. No fever. PHYSICAL EXAM: Alert and oriented x3, pulse 76, blood pressure 131/75, respirations 17, temperature 98.4, pulse ox 94% on 2 L. HEENT: Conjunctivae normal, oral mucosa moist. Neck is no jugular venous distention. No lymph node enlargement. CARDIOVASCULAR: S1, S2, muffled. RESPIRATORY: Breath sounds at the bases, a few scattered rhonchi and crackles. ABDOMEN: Soft, nontender. Legs: No swelling no e are no system with. LABS: INR 1.9. WBC 13.1. ASSESSMENT: 1. Change in mental status with possible acute metabolic encephalopathy of undetermined etiology. Possibly medication induced. 2. History of recent methicillin-resistant Staphylococcus aureus bronchopneumonia. 3. Chronic obstructive pulmonary disease. 4. History of congestive heart failure. 5. Hypertension. 6. Hyperlipidemia. 7. History of deep venous thrombosis. 8. History of myocardial infarction. 9. History of pulmonary embolism. 10.History of sarcoid. 11.History of anxiety, bipolar depression, panic disorder. 12.History of nicotine dependence. RECOMMENDATION: Recommend to continue with the current management and symptomatic treatment. Otherwise, recommend to continue the antibiotics per Dr. Lott. Guarded prognosis. Further recommendations to follow. MMODL / IJN: [id number] /
--- NOTE | 2017-11-13 22:52 | DS ---
DISCHARGE SUMMARY DATE OF SERVICE: 11/13/2017. FINAL DIAGNOSES: 1. Change in mental status possible acute metabolic encephalopathy of undetermined etiology. 2. Possibly medication induced. 3. History of recent MRSA bronchopneumonia. 4. Chronic obstructive pulmonary disease. 5. History of congestive heart failure. 6. Hypertension. 7. Hyperlipidemia. 8. History of deep vein thrombosis. 9. History of myocardial infarction. 10.History pulmonary embolism. 11.History of sarcoidosis. 12.History of anxiety, bipolar depression, panic disorder. 13.History of nicotine dependence. DISCHARGE DISPOSITION: The patient is being discharged in stable condition with guarded prognosis. Discharge cleared by multiple consultants including Infectious Disease. HISTORY OF PRESENT ILLNESS: In this 47-year-old woman with a past medical history of multiple medical problems admitted with change in mental status and the patient treated symptomatically. Patient improved significantly. Dr. Lott saw the patient and recommended p.o. antibiotics PICC line at this time. On exam, vitals are stable. Cardiovascular S1, S2. Abdomen soft, nontender. Nervous system: No focal deficits. Respiratory: A few rhonchi. DISCHARGE ADVICE AND MEDICATIONS: 1. Diet is cardiac diet. 2. Activity limited until followup. 3. Follow up with Dr. Liz Koch in 2-3 days. 4. Follow up with Dr. Lott and Dr. Hicks as recommended. 5. Follow up with Dr. Aida Merritt as recommended. MEDICATIONS ARE: 1. Xanax 0.5 mg t.i.d. p.r.n. 2. Lioresal 20 mg q.p.m. 3. Bumex 4 mg q.a.m. 4. Bumex 2 mg daily. 5. BuSpar 30 mg p.o. b.i.d. 6. Butalbital 1 tablet q.4h p.r.n. 7. Ceretec 10 mg p.o. daily. 8. Lamictal 200 mg p.o. daily. 9. Remeron 45 mg q.h.s. 10.MS Contin 30 mg q8 p.r.n. 11.Nystatin 1 application topically. 12.Zofran 4 mg b.i.d. p.r.n. 13.Lyrica 150 mg p.o. b.i.d. 14.Promethazine 5 mL q.6h p.r.n. 15.Jantoven 10 mg q.h.s. 16.Tylenol 500 mg q.6h p.r.n. 17.Symbicort 160/4.5 two puffs b.i.d. 18.Colace 100 mg b.i.d. 19.Fluconazole 200 mg p.o. daily. 20.Prozac 20 mg p.o. daily. 21.Mucinex 1200 mg p.o. q.i.d. 22.DuoNeb q.i.d. and p.r.n. 23.Lopressor 50 mg p.o. b.i.d. 24.K-Dur 10 mEq p.o. daily. 25.Prednisone taper, 40 mg daily for 3 days, 30 for 3 days, 20 for 3 day and 10 for 3 days. 26.Bactrim DS 1 p.o. b.i.d. for 2 weeks. Once again, the patient is being discharged in stable condition with guarded prognosis. MMODL / IJN: [id number] / MARY BETH
--- NOTE | 2017-11-13 23:51 | P.CONS ---
History of Present Illness - Reason for Consult Consult date: 11/13/17 - Chief Complaint Shortness of breath - History of Present Illness 47-year-old female that has multiple medical troubles that includes obesity and sarcoidosis. Is related that she was recently hospitalized at this facility for approximately one week and was treated for pneumonia. Because of ongoing difficulties with tenacious sputum and lack of improvement she was taking to the operating room and bronchoscopy was performed. Therapeutic lavage revealed evidence of large amounts of purulent secretions. After lavage she had a immediate improvement of her status and with this was thought to have evidence his mucous plugging and then was discharged to follow-up in the office. It was not thought that she has taken ongoing pneumonia. However the patient rapidly had a decline of her status becoming much more short of breath having sputum production and increasing weakness fatigue and malaise and believe that she had developed some fever. With this she again presented to the emergency center where there was evidence of the leukocytosis, increasing weakness and some alteration of her mental status. She's also has been seen by pulmonary critical care as well as neurology. Infectious diseases consultation was requested regarding the results of the bronchoscopy were performed during her stay Review of Systems HEENT:Denies headache or acute visual change. Denies sinus or mouth discomforts. Denies neck stiffness or pain. Denies significant oral cavity pain. Denies difficulty on swallowing. Lungs: Patient as per the HPI complaint of shortness of breath cough sputum production but no hemoptysis. Cardiovascular: Denied chest pain but did have shortness of breath cough dyspnea in the especially on exertion no PND feeling poorly at all times Gastrointestinal:Denies nausea, vomiting, diarrhea, constipation, hematemesis, melena, hematochezia. No no significant change of bowel habit noticed. Musculoskeletal: denies significant myalgias or arthralgias. No new joint swelling. Denies new back pain. Skin: Denies new rash or lesions. No new ulcers or wounds are related.. Neuro: She had generalized malaise and altered mental status with some confusion admission that rapidly improved with hydration and antibiotic therapy Psychiatric:Denies anxiety or depression. Endocrine: Has had weight gain and progressive fatigue over time. Past Medical History Past Medical History: Blood Disorder, Heart Failure, COPD, Deep Vein Thrombosis (DVT), Hyperlipidemia, Hypertension, Myocardial Infarction (FL), Musculoskeletal Disorder, Pneumonia, Pulmonary Embolus (PE), Thyroid Disorder Additional Past Medical History / Comment(s): PE 2012; Sarcoidosis diagnosed in 2015 following a bronchoscopy and lung biopsy done at [facility] and she was started on predniosone and she took the therapy for almost 1 year, polycythemia, overweight, bilateral PE (2011, 2015), bilateral DVTs, fibromyalgia, bipolar disorder, degenerative disk disorder, coronary artery disease along with previous history of a [place] and ventilator dependent respiratory failure with MRSA pneumonia for which the patient was hospitalized [facility] in 2012. Viral meningitis in October 2014. Pulmonary fibrosis, home 02 3l n/c Last Myocardial Infarction Date:: February 15, 2013 History of Any Multi-Drug Resistant Organisms: MRSA Year Discovered:: 11/09/17 MDRO Source:: PLEURAL FLUID Past Surgical History: Section, Cholecystectomy, Heart Catheterization , Hernia Repair, Orthopedic Surgery Additional Past Surgical History / Comment(s): Lt ankle surgery, several bronchosopy-most recently 11/09/17 Past Anesthesia/Blood Transfusion Reactions: Motion Sickness, Postoperative Nausea & Vomiting (PONV) Additional Past Anesthesia/Blood Transfusion Reaction / Comm: previously charted -pt stated that last April she coded due to anesthetic Additional Psychological History / Comment(s): and lives in the family home with her . No recent travel. No experience. No new animal exposures. Ongoing tobacco smoking despite her sarcoidosis Smoking Status: Current every day smoker - Past Family History Father Family Medical History: Blood Disorder, Congestive Heart Failure (CHF), CVA/TIA , Deep Vein Thrombosis (DVT), Myocardial Infarction (FL) Additional Family Medical History / Comment(s): polycythemia Mother Family Medical History: Congestive Heart Failure (CHF), Diabetes Mellitus, Deep Vein Thrombosis (DVT), Myocardial Infarction (FL), Musculoskeletal Disorder Additional Family Medical History / Comment(s): DDD Sister(s) Family Medical History: No Reported History Brother(s) Family Medical History: No Reported History Son(s) Family Medical History: No Reported History Daughter(s) Family Medical History: No Reported History Medications and Allergies Home Medications and Allergies Comment(s): Please see the nursing documentation for the current list of medications Home Medications Medication Instructions Recorded Confirmed Type Cetirizine HCl [Zyrtec] 10 mg PO DAILY PRN 07/16/14 11/12/17 History FLUoxetine HCL [PROzac] 20 mg PO DAILY #30 capsule 08/20/15 11/12/17 Rx Metoprolol Tartrate [Lopressor] 50 mg PO BID #60 tab 08/20/15 11/12/17 Rx lamoTRIgine [LaMICtal] 200 mg PO DAILY 03/22/16 11/12/17 History Bumetanide 4 mg PO QAM 10/18/16 11/12/17 History Butalb/APAP/Caff 50-325-40Mg 1 tab PO Q4H PRN 10/18/16 11/12/17 History [Fioricet 50-325-40] Ondansetron HCl [Zofran] 4 mg PO BID PRN 10/18/16 11/12/17 History Mirtazapine [Remeron] 45 mg PO HS 04/10/17 11/12/17 History ALPRAZolam [Xanax] 0.5 mg PO TID PRN 06/06/17 11/12/17 History Bumetanide [BUMEX] 2 mg PO DAILY@1200 09/16/17 11/12/17 History Pregabalin [Lyrica] 150 mg PO BID 09/16/17 11/12/17 History Warfarin Sodium [Jantoven] 10 mg PO HS 09/16/17 11/12/17 History busPIRone HCL [Buspar] 30 mg PO BID 09/16/17 11/12/17 History Baclofen [Lioresal] 20 mg PO Q8H PRN 10/09/17 11/12/17 History Morphine Sulfate ER [Ms Contin] 30 mg PO Q8H PRN 11/03/17 11/12/17 History Nystatin 100,000 Unit/gm Powd 1 applic TOPICAL BID 11/04/17 11/12/17 History [Mycostatin Powder] Promethazine/Dextromethorphan 5 ml PO Q6H PRN 11/04/17 11/12/17 History [Promethazine-Dm Solution] Acetaminophen Tab [Tylenol] 500 mg PO Q6HR PRN tab 11/10/17 11/12/17 Rx Budesonide/Formoterol Fumarate 1 puff IH BID #1 hfa.aer.ad 11/10/17 11/12/17 Rx [Symbicort 160-4.5 Mcg Inhaler] Docusate [Colace] 100 mg PO BID PRN #60 cap 11/10/17 11/12/17 Rx Ipratropium-Albuterol Nebulize 3 ml INHALATION RT-QID #120 11/10/17 11/12/17 Rx [Duoneb 0.5 mg-3 mg/3 ml Soln] ampul.neb Potassium Chloride ER [K-Dur 20] 20 meq PO DAILY #30 tab.er.prt 11/10/17 Rx guaiFENesin [Mucinex] 1,200 mg PO Q12HR #40 tablet.er 11/10/17 11/12/17 Rx Fluconazole 200 mg PO DAILY #14 tab 11/13/17 Rx Sulfamethox-Tmp 800-160Mg [Bactrim 1 tab PO Q12HR #28 tab 11/13/17 Rx DS 800-160 mg] predniSONE See Taper PO DIRECTED #0 11/13/17 11/12/17 Rx Allergies Allergy/AdvReac Type Severity Reaction Status Date / Time ketorolac tromethamine Allergy Severe Anaphylaxis Verified 11/12/17 16:22 [From Toradol] Opioids - Morphine Analogues Allergy Mild Itching Verified 11/12/17 16:22 Iodinated Contrast- Oral and Allergy Unknown Verified 11/12/17 16:22 IV Dye rivaroxaban [From Xarelto] Allergy Rash/Hives Verified 11/12/17 16:22 sumatriptan [From Imitrex] Allergy Anaphylaxis Verified 11/12/17 16:22 sumatriptan succinate Allergy Anaphylaxis Verified 11/12/17 16:22 [From Imitrex] morphine AdvReac Severe Itching Verified 11/12/17 16:22 iodine AdvReac Intermediate Itching Verified 11/12/17 16:22 tramadol AdvReac Anaphylaxis Verified 11/12/17 16:22 vancomycin AdvReac Itching Verified 11/12/17 16:22 Rich wipes AdvReac Severe Rash/Hives Uncoded 09/16/17 15:30 Physical Exam Vitals: Vital Signs Temp Pulse Resp BP Pulse Ox 11/13/17 08:00 76 17 11/13/17 05:00 98.4 F 76 17 131/75 95 Intake and Output 11/13/17 11/13/17 11/14/17 14:59 22:59 06:59 Intake Total 980 Balance 980 Intake: Intake, IV Titration 500 Amount Fluconazole in NaCl,Iso- 100 Osm 200 mg In Saline 1 100ml.bag @ 100 mls/hr IVPB ONCE ONE Rx#: [id number] Vancomycin 1,750 mg In 400 Sodium Chloride 0.9% 500 ml @ 167 mls/hr IVPB Q8H [facility] Rx#:[id number] Oral 480 Other: Voiding Method Indwelling Catheter # Voids 4 47-year-old female who has obesity complaint of altered mental status and shortness of breath at admission that are both markedly improved. Her mental status is baseline and her shortness of breath is improving with breathing treatments and antibiotic therapy that has started. HEENT: Anicteric conjunctiva are pink and moist nasal mucosa grossly intact without significant lesions, there is no thrush. Neck: The neck is supple without significant lymphadenopathy or thyromegaly. Lungs: Symmetrical air entry is noted, few basilar crackles, expiratory wheezes are scattered throughout with no true bronchial sounds no dullness or egophony Heart: Regular rate and rhythm with an audible S1-S2, no S3 no S4. There is no significant murmur click or rub, PMI was nondisplaced. Abdomen: Obese, Positive bowel sounds soft and nontender without palpable masses or organomegaly. There was no guarding or rebound. Extremities: The upper extremities have excellent pulses they are symmetric, no significant petechiae or telangiectasia. No splinter hemorrhages were noted. The lower extremities have only trace pedal edema The peripheral pulses were 2+ and symmetric. Neuro: Awake alert oriented to person place and time. There are no acute new gross focal sensory motor deficits. Results CBC & Chem 7: 11/12/17 16:24 11/12/17 16:24 Labs: Abnormal Lab Results - Last 24 Hours (Table) 11/13/17 11/13/17 11/13/17 Range/Units 05:04 05:04 07:12 PT 17.2 H (9.0-12.0) sec INR 1.9 H (<1.2) POC Glucose (mg/dL) 133 H (75-99) mg/dL Total Creatine Kinase <20 L (30-135) U/L 11/13/17 Range/Units 12:02 PT (9.0-12.0) sec INR (<1.2) POC Glucose (mg/dL) 141 H (75-99) mg/dL Total Creatine Kinase (30-135) U/L Microbiology - Last 24 Hours (Table) 11/12/17 16:24 Blood Culture - Preliminary Blood No Growth after 24 hours Laboratory Results WBC 13.1 k/uL (3.8-10.6) H 11/12/17 16:24 RBC 5.29 m/uL (3.80-5.40) 11/12/17 16:24 Hgb 15.9 gm/dL (11.4-16.0) 11/12/17 16:24 Hct 46.9 % (34.0-46.0) H 11/12/17 16:24 MCV 88.6 fL (80.0-100.0) 11/12/17 16:24 MCH 30.0 pg (25.0-35.0) 11/12/17 16:24 MCHC 33.8 g/dL (31.0-37.0) 11/12/17 16:24 RDW 13.1 % (11.5-15.5) 11/12/17 16:24 Plt Count 339 k/uL (150-450) 11/12/17 16:24 Neutrophils % 77 % 11/12/17 16:24 Lymphocytes % 16 % 11/12/17 16:24 Monocytes % 5 % 11/12/17 16:24 Eosinophils % 1 % 11/12/17 16:24 Basophils % 0 % 11/12/17 16:24 Neutrophils # 10.1 k/uL (1.3-7.7) H 11/12/17 16:24 Lymphocytes # 2.0 k/uL (1.0-4.8) 11/12/17 16:24 Monocytes # 0.7 k/uL (0-1.0) 11/12/17 16:24 Eosinophils # 0.1 k/uL (0-0.7) 11/12/17 16:24 Basophils # 0.0 k/uL (0-0.2) 11/12/17 16:24 PT 17.2 sec (9.0-12.0) H 11/13/17 05:04 INR 1.9 (<1.2) H 11/13/17 05:04 APTT 26.0 sec (22.0-30.0) 11/12/17 16:24 Sample Site R radial 11/12/17 17:46 ABG pH 7.41 (7.35-7.45) 11/12/17 17:46 ABG pCO2 43 mmHg (35-45) 11/12/17 17:46 ABG pO2 96 mmHg (83-108) 11/12/17 17:46 ABG HCO3 27 mmol/L (21-25) H 11/12/17 17:46 ABG O2 Saturation 98.0 % (94-97) H 11/12/17 17:46 ABG Base Excess 2.3 mmol/L 11/12/17 17:46 Yohan Test Yes 11/12/17 17:46 FiO2 32 % 11/12/17 17:46 Sodium 137 mmol/L (137-145) 11/12/17 16:24 Potassium 3.2 mmol/L (3.5-5.1) L 11/12/17 16:24 Chloride 105 mmol/L (98-107) 11/12/17 16:24 Carbon Dioxide 27 mmol/L (22-30) 11/12/17 16:24 Anion Gap 5 mmol/L 11/12/17 16:24 BUN 17 mg/dL (7-17) 11/12/17 16:24 Creatinine 0.67 mg/dL (0.52-1.04) 11/12/17 16:24 Est GFR (CKD-EPI)AfAm >90 (>60 ml/min/1.73 sqM) 11/12/17 16:24 Est GFR (CKD-EPI)NonAf >90 (>60 ml/min/1.73 sqM) 11/12/17 16:24 Glucose 136 mg/dL (74-99) H 11/12/17 16:24 POC Glucose (mg/dL) 141 mg/dL (75-99) H 11/13/17 12:02 POC Glu [employer] Equipment [employer] ID Sal[place] Means 11/13/17 12:02 Plasma Lactic Acid Chuck 1.7 mmol/L (0.7-2.0) 11/12/17 16:24 Calcium 8.4 mg/dL (8.4-10.2) 11/12/17 16:24 Phosphorus 3.2 mg/dL (2.5-4.5) 11/12/17 16:24 Magnesium 1.9 mg/dL (1.6-2.3) 11/12/17 16:24 Total Bilirubin 0.2 mg/dL (0.2-1.3) 11/12/17 16:24 AST 23 U/L (14-36) 11/12/17 16:24 ALT 48 U/L (9-52) 11/12/17 16:24 Alkaline Phosphatase 79 U/L (38-126) 11/12/17 16:24 Ammonia 20 umol/L (<30) 11/12/17 16:24 Total Creatine Kinase <20 U/L (30-135) L 11/13/17 05:04 CK-MB (CK-2) <0.2 ng/mL (0.0-2.4) 11/13/17 05:04 CK-MB (CK-2) Rel Index 11/13/17 05:04 Troponin I <0.012 ng/mL (0.000-0.034) 11/13/17 05:04 Total Protein 5.7 g/dL (6.3-8.2) L 11/12/17 16:24 Albumin 3.1 g/dL (3.5-5.0) L 11/12/17 16:24 Urine Color Yellow 11/12/17 18:38 Urine Appearance Clear (Clear) 11/12/17 18:38 Urine pH 6.5 (5.0-8.0) 11/12/17 18:38 Ur Specific [place] 1.024 (1.001-1.035) 11/12/17 18:38 Urine Protein Trace (Negative) H 11/12/17 18:38 Urine Glucose (UA) Negative (Negative) 11/12/17 18:38 Urine Ketones Negative (Negative) 11/12/17 18:38 Urine Blood Negative (Negative) 11/12/17 18:38 Urine Nitrite Negative (Negative) 11/12/17 18:38 Urine Bilirubin Negative (Negative) 11/12/17 18:38 Urine Urobilinogen <2.0 mg/dL (<2.0) 11/12/17 18:38 Ur Leukocyte Esterase Negative (Negative) 11/12/17 18:38 Urine Opiates Screen Detected (NotDetected) H 11/12/17 18:38 Ur Oxycodone Screen Not Detected (NotDetected) 08/13/18 18:38 Urine Methadone Screen Not Detected (NotDetected) 11/12/17 18:38 Ur Propoxyphene Screen Not Detected (NotDetected) 11/12/17 18:38 Ur Barbiturates Screen Detected (NotDetected) H 11/12/17 18:38 U Tricyclic Antidepress Detected (NotDetected) H 11/12/17 18:38 Ur Phencyclidine Scrn Not Detected (NotDetected) 11/12/17 18:38 Ur Amphetamines Screen Not Detected (NotDetected) 11/12/17 18:38 U Methamphetamines Scrn Not Detected (NotDetected) 11/12/17 18:38 U Benzodiazepines Scrn Detected (NotDetected) H 11/12/17 18:38 Urine Cocaine Screen Not Detected (NotDetected) 11/12/17 18:38 U Marijuana (THC) Screen Not Detected (NotDetected) 11/12/17 18:38 Microbiology 11/12/17 16:24 Blood Blood Culture - Preliminary No Growth after 24 hours Recent bronchoscopy revealed evidence of MRSA as well as large amounts of Lou. Assessment and Plan (1) MRSA pneumonia Narrative/Plan: 47-year-old woman presents to Hospital from the home setting with the onset of some altered mental status increasing weakness fatigue malaise and some worsening of her pulmonary status. She was asked [facility] nearly a week where she without evidence of significant thick tenacious secretions and underwent a bronchoscopy. After bronchoscopy in the therapeutic lavage she had an immediate improvement of her pulmonary status and it was thought that mucous plugging was causing a large amount of her disease state. Especially since she has underlying sarcoidosis. Discharged home without significant amounts of antibiotic therapy and tapering doses of steroids. Despite this she rapidly worsened and has been about evidence of MRSA in her sputum as well as large amounts of Lou. She'll be given a dose of vancomycin intravenously as well as one IV dose of fluconazole 2 load her system and then proceed to oral antibiotic therapy. Oral fluconazole will be utilized with oral Bactrim for the MRSA infection. She is doing relatively well would not need IV antibiotic therapy at this time but certainly if she has any worsening of her status she can follow with pulmonary critical care or infectious disease in the outpatient setting for further change of therapy. It is important to know that a consult was called urgently because the patient was telling the staff that she was leaving the hospital immediately and did not want IV antibiotic therapy at home. Fortunately with her significant improvement since coming to Hospital in no evidence of any worsening of her pneumonia on chest x-ray she did well on planned course of antimicrobial therapy. Status: Acute Code(s): J15.212 - PNEUMONIA DUE TO METHICILLIN RESISTANT STAPHYLOCOCCUS AUREUS SNOMED Code(s): 202605793294213
[2017-11-14] MEDS ORDERED: VANCOMYCIN TROUGH DUE 1 EACH MISC MISCELLANE ONE (19:00)
== END 2017-11-13 14:10 | disposition home health service (06) | DRG 71 ==
LOC: EC 16:01 → 5MS5E 20:11
PROVIDERS: ADMIT Hospitalist; ATTEND Hospitalist
DX: G93.41 Metabolic encephalopathy (principal); J96.11 Chronic respiratory failure with hypoxia; E78.5 Hyperlipidemia, unspecified; J44.9 Chronic obstructive pulmonary disease, unspecified; F41.9 Anxiety disorder, unspecified; F31.9 Bipolar disorder, unspecified; G47.33 Obstructive sleep apnea (adult) (pediatric); E66.9 Obesity, unspecified; I11.0 Hypertensive heart disease with heart failure; M79.7 Fibromyalgia; D86.9 Sarcoidosis, unspecified; I50.9 Heart failure, unspecified; Z68.38 Body mass index [BMI] 38.0-38.9, adult; Z86.19 Personal history of other infectious and parasitic diseases; Z86.14 Personal history of Methicillin resistant Staphylococcus aureus infection; I25.2 Old myocardial infarction; Z86.718 Personal history of other venous thrombosis and embolism; Z86.711 Personal history of pulmonary embolism; Z79.01 Long term (current) use of anticoagulants; Z79.51 Long term (current) use of inhaled steroids; Z79.52 Long term (current) use of systemic steroids; Z79.899 Other long term (current) drug therapy; Z88.1 Allergy status to other antibiotic agents; Z91.041 Radiographic dye allergy status; Z88.5 Allergy status to narcotic agent; Z88.8 Allergy status to other drugs, medicaments and biological substances; Z91.018 Allergy to other foods; Z87.01 Personal history of pneumonia (recurrent); Z82.49 Family history of ischemic heart disease and other diseases of the circulatory system; Z82.3 Family history of stroke; Z83.2 Family history of diseases of the blood and blood-forming organs and certain disorders involving the immune mechanism
CPT/HCPCS: 36415; 36600; 70450; 71045; 80053; 80306; 81003; 82140; 82550; 82553; 82805; 83605; 83735; 84100; 84484; 85025; 85610; 85730; 87040; 94640; 96361; 96365; 96375; 99285

== ENCOUNTER 2017-11-22 16:38 | Inpatient (IN) | payer OTHER ==
[2017-11-22] MEDS ORDERED: ALBUTEROL NEBULIZED 2.5 MG/3 ML INHALATION STA (17:16)
[2017-11-22] MEDS ORDERED: methylPREDNISolone SOD SUCCI 125 MG/2 ML VIAL IV STA (17:16)
[2017-11-22] MEDS ORDERED: IPRATROPIUM 0.5 MG/2.5 ML NEBU INHALATION STA (17:16)
--- NOTE | 2017-11-22 17:20 | ED ---
General Adult HPI - General Chief complaint: Shortness of Breath Stated complaint: diff breathing Time Seen by Provider: 11/22/17 16:56 Source: patient, RN notes reviewed, old records reviewed Mode of arrival: ambulatory Limitations: no limitations - History of Present Illness Initial comments: 47-year-old female sent from pulmonology office for admission. Patient has recent diagnosis of MRSA bronchitis status post bronchoscopy. She is currently on fluconazole and Bactrim. She has been on these medications for approximately 10 days with no improvement. Patient does have history of asthma and COPD. She has had cough which is productive of sputum as well as pleuritic chest pain which is typical for this patient. - Related Data Home Medications Medication Instructions Recorded Confirmed lamoTRIgine [LaMICtal] 200 mg PO DAILY 03/22/16 11/22/17 Bumetanide 4 mg PO QAM 10/18/16 11/22/17 Butalb/APAP/Caff 50-325-40Mg 1 tab PO Q4H PRN 10/18/16 11/22/17 [Fioricet 50-325-40] Ondansetron HCl [Zofran] 4 mg PO BID PRN 10/18/16 11/22/17 Mirtazapine [Remeron] 45 mg PO HS 04/10/17 11/22/17 ALPRAZolam [Xanax] 0.5 mg PO TID PRN 06/06/17 11/22/17 Bumetanide [BUMEX] 2 mg PO DAILY@1200 09/16/17 11/22/17 Pregabalin [Lyrica] 150 mg PO BID 09/16/17 11/22/17 busPIRone HCL [Buspar] 30 mg PO BID 09/16/17 11/22/17 Baclofen [Lioresal] 20 mg PO Q8H PRN 10/09/17 11/22/17 Morphine Sulfate ER [Ms Contin] 30 mg PO Q8H PRN 11/03/17 11/22/17 Nystatin 100,000 Unit/gm Powd 1 applic TOPICAL BID 11/04/17 11/22/17 [Mycostatin Powder] Promethazine/Dextromethorphan 5 ml PO Q6H PRN 11/04/17 11/22/17 [Promethazine-Dm Solution] Ibuprofen [Advil] 800 mg PO Q8HR PRN 11/22/17 11/22/17 Previous Rx's Medication Instructions Recorded FLUoxetine HCL [PROzac] 20 mg PO DAILY #30 capsule 08/20/15 Metoprolol Tartrate [Lopressor] 50 mg PO BID #60 tab 08/20/15 Docusate [Colace] 100 mg PO BID PRN #60 cap 11/10/17 Ipratropium-Albuterol Nebulize 3 ml INHALATION RT-QID #120 11/10/17 [Duoneb 0.5 mg-3 mg/3 ml Soln] ampul.neb Potassium Chloride ER [K-Dur 20] 20 meq PO DAILY #30 tab.er.prt 11/10/17 guaiFENesin [Mucinex] 1,200 mg PO Q12HR #40 tablet.er 11/10/17 Fluconazole 200 mg PO DAILY #14 tab 11/13/17 Sulfamethox-Tmp 800-160Mg [Bactrim 1 tab PO Q12HR #28 tab 11/13/17 DS 800-160 mg] Allergies Allergy/AdvReac Type Severity Reaction Status Date / Time ketorolac tromethamine Allergy Severe Anaphylaxis Verified 11/22/17 17:25 [From Toradol] Opioids - Morphine Analogues Allergy Mild Itching Verified 11/22/17 17:25 Iodinated Contrast- Oral and Allergy Unknown Verified 11/22/17 17:25 IV Dye rivaroxaban [From Xarelto] Allergy Rash/Hives Verified 11/22/17 17:25 sumatriptan [From Imitrex] Allergy Anaphylaxis Verified 11/22/17 17:25 sumatriptan succinate Allergy Anaphylaxis Verified 11/22/17 17:25 [From Imitrex] morphine AdvReac Severe Itching Verified 11/22/17 17:25 iodine AdvReac Intermediate Itching Verified 11/22/17 17:25 tramadol AdvReac Anaphylaxis Verified 11/22/17 17:25 vancomycin AdvReac Itching Verified 11/22/17 17:25 Rich wipes AdvReac Severe Rash/Hives Uncoded 09/16/17 15:30 Review of Systems ROS Statement: Those systems with pertinent positive or pertinent negative responses have been documented in the HPI. ROS Other: All systems not noted in ROS Statement are negative. Past Medical History Past Medical History: Blood Disorder, Heart Failure, COPD, Deep Vein Thrombosis (DVT), Hyperlipidemia, Hypertension, Myocardial Infarction ([place]), Musculoskeletal Disorder, Pneumonia, Pulmonary Embolus (PE), Thyroid Disorder Additional Past Medical History / Comment(s): PE 2012; Sarcoidosis diagnosed in 2015 following a bronchoscopy and lung biopsy done at [facility] and she was started on predniosone and she took the therapy for almost 1 year, polycythemia, overweight, bilateral PE (2011, 2015), bilateral DVTs, fibromyalgia, bipolar disorder, degenerative disk disorder, coronary artery disease along with previous history of a [place] and ventilator dependent respiratory failure with MRSA pneumonia for which the patient was hospitalized [facility] in 2012. Viral meningitis in October 2014. Pulmonary fibrosis, home 02 3l n/c Last Myocardial Infarction Date:: February 15, 2013 History of Any Multi-Drug Resistant Organisms: MRSA Date of last positivie culture/infection: 11/09/17 MDRO Source:: PLEURAL FLUID Past Surgical History: Section, Cholecystectomy, Heart Catheterization , Hernia Repair, Orthopedic Surgery Additional Past Surgical History / Comment(s): Lt ankle surgery, several bronchosopy-most recently 11/09/17 Past Anesthesia/Blood Transfusion Reactions: Motion Sickness, Postoperative Nausea & Vomiting (PONV) Additional Past Anesthesia/Blood Transfusion Reaction / Comment(s): previously charted -pt stated that last April she coded due to anesthetic Past Psychological History: Anxiety, Bipolar, Depression, Panic Disorder Smoking Status: Current every day smoker - Past Family History Father Family Medical History: Blood Disorder, Congestive Heart Failure (CHF), CVA/TIA , Deep Vein Thrombosis (DVT), Myocardial Infarction ([place]) Additional Family Medical History / Comment(s): polycythemia Mother Family Medical History: Congestive Heart Failure (CHF), Diabetes Mellitus, Deep Vein Thrombosis (DVT), Myocardial Infarction ([place]), Musculoskeletal Disorder Additional Family Medical History / Comment(s): DDD Sister(s) Family Medical History: No Reported History Brother(s) Family Medical History: No Reported History Son(s) Family Medical History: No Reported History Daughter(s) Family Medical History: No Reported History General Exam Limitations: no limitations General appearance: alert, in no apparent distress Head exam: Present: atraumatic, normocephalic Eye exam: Present: normal appearance, PERRL, EOMI ENT exam: Present: normal exam Neck exam: Present: normal inspection. Absent: tenderness, meningismus Respiratory exam: Present: wheezes. Absent: respiratory distress, rhonchi Cardiovascular Exam: Present: regular rate, normal rhythm GI/Abdominal exam: Present: soft, distended. Absent: tenderness, guarding Extremities exam: Present: normal inspection. Absent: pedal edema Back exam: Present: normal inspection Neurological exam: Present: alert, oriented X3, CN II-XII intact. Absent: motor sensory deficit Psychiatric exam: Present: normal affect, normal mood Skin exam: Present: warm, dry, intact. Absent: cyanosis, diaphoretic Course Vital Signs 11/22/17 11/22/17 11/22/17 16:48 17:33 17:52 Temperature 98.4 F Pulse Rate 94 87 90 Respiratory 22 18 18 Rate Blood Pressure 128/74 O2 Sat by Pulse 95 Oximetry - Reevaluation(s) Reevaluation #1: 11/22/17 18:45 Patient reevaluated by pulmonology in the emergency department, recommended vancomycin. EKG Findings - EKG Comments: EKG Findings:: EKG: Normal sinus rhythm, rate of 88, MN interval 154, QRS duration 62, QTC 364, QTC 440, no ST segment elevation Medical Decision Making - Medical Decision Making 47-year-old female with worsening pneumonia presenting for admission, failed outpatient treatment. Patient is started on vancomycin in the emergency department. She will be admitted for treatment of COPD and asthma as well. She is evaluated by pulmonology in the emergency department. - Lab Data Result diagrams: 11/22/17 17:35 11/22/17 17:35 Lab Results 11/22/17 11/22/17 11/22/17 Range/Units 17:35 17:35 17:35 WBC 11.3 H (3.8-10.6) k/uL RBC 5.29 (3.80-5.40) m/uL Hgb 15.5 (11.4-16.0) gm/dL Hct 46.4 H (34.0-46.0) % MCV 87.8 (80.0-100.0) fL MCH 29.4 (25.0-35.0) pg MCHC 33.4 (31.0-37.0) g/dL RDW 13.8 (11.5-15.5) % Plt Count 292 (150-450) k/uL Neutrophils % 65 % Lymphocytes % 25 % Monocytes % 6 % Eosinophils % 3 % Basophils % 0 % Neutrophils # 7.3 (1.3-7.7) k/uL Lymphocytes # 2.8 (1.0-4.8) k/uL Monocytes # 0.7 (0-1.0) k/uL Eosinophils # 0.3 (0-0.7) k/uL Basophils # 0.1 (0-0.2) k/uL PT (9.0-12.0) sec INR (<1.2) APTT (22.0-30.0) sec Sodium 138 (137-145) mmol/L Potassium 3.9 (3.5-5.1) mmol/L Chloride 106 (98-107) mmol/L Carbon Dioxide 21 L (22-30) mmol/L Anion Gap 11 mmol/L BUN 17 (7-17) mg/dL Creatinine 1.14 H (0.52-1.04) mg/dL Est GFR (CKD-EPI)AfAm 68 (>60 ml/min/1.73 sqM) Est GFR (CKD-EPI)NonAf 59 (>60 ml/min/1.73 sqM) Glucose 116 H (74-99) mg/dL Calcium 9.4 (8.4-10.2) mg/dL Magnesium 1.6 (1.6-2.3) mg/dL Total Bilirubin 0.6 (0.2-1.3) mg/dL AST 34 (14-36) U/L ALT 48 (9-52) U/L Alkaline Phosphatase 112 (38-126) U/L Total Creatine Kinase 126 (30-135) U/L CK-MB (CK-2) 0.6 (0.0-2.4) ng/mL CK-MB (CK-2) Rel Index 0.5 Troponin I <0.012 (0.000-0.034) ng/mL Total Protein 7.3 (6.3-8.2) g/dL Albumin 4.0 (3.5-5.0) g/dL 11/22/17 Range/Units 17:35 WBC (3.8-10.6) k/uL RBC (3.80-5.40) m/uL Hgb (11.4-16.0) gm/dL Hct (34.0-46.0) % MCV (80.0-100.0) fL MCH (25.0-35.0) pg MCHC (31.0-37.0) g/dL RDW (11.5-15.5) % Plt Count (150-450) k/uL Neutrophils % % Lymphocytes % % Monocytes % % Eosinophils % % Basophils % % Neutrophils # (1.3-7.7) k/uL Lymphocytes # (1.0-4.8) k/uL Monocytes # (0-1.0) k/uL Eosinophils # (0-0.7) k/uL Basophils # (0-0.2) k/uL PT 35.7 H (9.0-12.0) sec INR 4.0 H (<1.2) APTT 50.3 H (22.0-30.0) sec Sodium (137-145) mmol/L Potassium (3.5-5.1) mmol/L Chloride (98-107) mmol/L Carbon Dioxide (22-30) mmol/L Anion Gap mmol/L BUN (7-17) mg/dL Creatinine (0.52-1.04) mg/dL Est GFR (CKD-EPI)AfAm (>60 ml/min/1.73 sqM) Est GFR (CKD-EPI)NonAf (>60 ml/min/1.73 sqM) Glucose (74-99) mg/dL Calcium (8.4-10.2) mg/dL Magnesium (1.6-2.3) mg/dL Total Bilirubin (0.2-1.3) mg/dL AST (14-36) U/L ALT (9-52) U/L Alkaline Phosphatase (38-126) U/L Total Creatine Kinase (30-135) U/L CK-MB (CK-2) (0.0-2.4) ng/mL CK-MB (CK-2) Rel Index Troponin I (0.000-0.034) ng/mL Total Protein (6.3-8.2) g/dL Albumin (3.5-5.0) g/dL Disposition Clinical Impression: Acute exacerbation of chronic bronchitis, MRSA (methicillin resistant staph aureus) culture positive, Acute exacerbation of chronic obstructive pulmonary disease (COPD) Disposition: ADMITTED IP TO THIS HOSP Condition: Stable Is patient prescribed a controlled substance at d/c from ED?: No Referrals: Liz Koch MD [Primary Care Provider] - 1-2 days Decision to Admit Reason: Admit from EC Decision Date: 11/22/17 Decision Time: 18:46
[2017-11-22 17:59] LABS: Basophils # (A) 0.1 k/uL (0-0.2); Basophils % (A) 0 %; Eosinophils # (A) 0.3 k/uL (0-0.7); Eosinophils % (A) 3 %; HCT 46.4 % (34.0-46.0); HGB 15.5 gm/dL (11.4-16.0); Lymphocytes # (A) 2.8 k/uL (1.0-4.8); Lymphocytes % (A) 25 %; MCH 29.4 pg (25.0-35.0); MCHC 33.4 g/dL (31.0-37.0); MCV 87.8 fL (80.0-100.0); Mean Platelet Volume 6.9; Monocytes # (A) 0.7 k/uL (0-1.0); Monocytes % (A) 6 %; Neutrophils # (A) 7.3 k/uL (1.3-7.7); Neutrophils % (A) 65 %; Platelet Count 292 k/uL (150-450); RBC 5.29 m/uL (3.80-5.40); RDW 13.8 % (11.5-15.5); WBC 11.3 k/uL (3.8-10.6)
[2017-11-22 18:03] LABS: Calcium 9.4 mg/dL (8.4-10.2); Magnesium 1.6 mg/dL (1.6-2.3); Potassium 3.9 mmol/L (3.5-5.1); Total Bilirubin 0.6 mg/dL (0.2-1.3); Total Protein 7.3 g/dL (6.3-8.2)
[2017-11-22 18:05] LABS: Creatine Kinase 126 U/L (30-135)
[2017-11-22] MEDS ORDERED: KETAMINE 10 MG/ML 20 ML VIAL IV STA (18:06)
[2017-11-22] MEDS ORDERED: ACETAMINOPHEN IV (For NPO) 1,000 MG in EMPTY BAG 1 BAG IVPB ONE (18:06)
[2017-11-22 18:13] LABS: Partial Thromboplastin Time 50.3 sec (22.0-30.0); Prothrombin Time 35.7 sec (9.0-12.0)
[2017-11-22 18:17] LABS: Creatine Kinase MB 0.6 ng/mL (0.0-2.4); Troponin I <0.012 ng/mL (0.000-0.034)
[2017-11-22] MEDS ORDERED: VANCOMYCIN IV PER PHARMACY 1 EACH MISC MISCELLANE PRN (18:17)
[2017-11-22] MEDS ORDERED: diphenhydrAMINE 50 MG/ML 1 ML VIAL IVP STA (18:22)
[2017-11-22] MEDS ORDERED: VANCOMYCIN 2,000 MG in SODIUM CHLORIDE 0.9% 500 ML IVPB STA (18:39)
--- NOTE | 2017-11-22 18:43 | XR ---
EXAMINATION: XR chest 2V DATE AND TIME: 11/22/2017 6:12 PM CLINICAL INDICATION: difficulty breathing TECHNIQUE: PA and lateral COMPARISON: 11/12/2017 FINDINGS: Overlying soft tissues are prominent. Given this factor, the lungs appear to be clear and the are wel l expanded. The pleural spaces appear to be negative. The cardiac silhouette is not enlarged. The remainder of the mediastinal silhouette is unremarkable. The skeletal structures and soft tissues are negative for acute findings. IMPRESSION: NO ACUTE PROCESS.
[2017-11-22] MEDS ORDERED: IPRATROPIUM-ALBUTEROL 3 ML NEB INHALATION PRN (18:46)
[2017-11-22] MEDS: IPRATROPIUM-ALBUTEROL 3 ML NEB INHALATION SCH (19:29)
[2017-11-22 20:09] VITALS: BMI 37.3
[2017-11-22] MEDS ORDERED: BACLOFEN 10 MG TAB PO PRN (20:47)
[2017-11-22] MEDS ORDERED: IBUPROFEN 800 MG TAB PO PRN (20:47)
[2017-11-22] MEDS ORDERED: ONDANSETRON 4 MG TAB PO PRN (20:47)
[2017-11-22] MEDS ORDERED: DOCUSATE 100 MG CAP PO PRN (20:47)
[2017-11-22 21:26] LABS: Glucose,Whole Blood 181 mg/dL (75-99)
--- NOTE | 2017-11-22 21:40 | HP ---
HISTORY AND PHYSICAL DATE OF SERVICE: 11/22/2017 CHIEF COMPLAINT: Shortness of breath and cough and sputum. HISTORY OF PRESENT ILLNESS: This 47-year-old woman with a past medical history of multiple medical problems including COPD, bronchial asthma, who was recently diagnosed with MRSA, bronchopneumonia. The patient was admitted with some change in mental status, metabolic encephalopathy recently. Patient improved significantly. Patient had vancomycin IV in August. Currently the patient is on oral Bactrim, because the patient had increasing cough and sputum and chest pain and palpitation and chest pain and other medical symptoms and shortness of breath in Dr. Noyola's office and directed to [facility] for further evaluation and treatment. A chest x-ray showed no acute process at this time. She has been taking Bactrim for the last 10 days. There is no history of fever, rigors or chills. No history of headache, loss of consciousness, seizures. PAST MEDICAL HISTORY: MRSA bronchitis and MRSA pneumonia, CHF, COPD, DVT, hypertension, hyperlipidemia , hypothyroidism, history of myocardial infarction, pulmonary embolism, history of sarcoidosis. MEDICATIONS: Prior to admission home medications are: 1. Bactrim DS 1 p.o. b.i.d. 2. Fluconazole 200 mg p.o. 3. Advil 800 mg q.8h. 4. Lamictal 200 mg p.o. daily. 5. Mucinex 200 mg p.o. b.i.d. 6. BuSpar 30 mg p.o. b.i.d. 7. Promethazine 5 mg q.6h p.r.n. 8. Lyrica 150 mg b.i.d. 9. K-Dur 20 mEq. 10.Zofran 4 mg b.i.d. p.r.n. 11.Mycostatin 1 application b.i.d. 12.MS Contin 30 mg q.8h p.r.n. 13.Remeron 45 mg q.h.s. 14.Lopressor 50 mg p.o. b.i.d. 15.DuoNeb q.i.d. 16.Prozac 20 mg. 17.Colace 100 mg b.i.d. p.r.n. 18.Fioricet 1 tablet q.4h p.r.n. 19.Bumex 2 mg p.o. daily. 20.Bumex 4 mg q.a.m. 21.Lioresal 20 mg daily p.r.n. 22.Xanax 0.5 t.i.d. p.r.n. ALLERGIES: ARE KETOROLAC, OPIOIDS, IODINATED CONTRAST, XARELTO, IMITREX, MORPHINE, IODINE, ULTRAM, VANCOMYCIN, . FAMILY HISTORY: History of CHF, CAD, CVA, DVT, myocardial infarction, cholecystectomy. SOCIAL HISTORY: No history of smoking. No alcohol intake. REVIEW OF SYSTEMS: ENT: No diminished vision. No diminished hearing. CARDIOVASCULAR: No angina or palpitations. RESPIRATORY: As mentioned earlier. GI: No nausea or vomiting. : No dysuria. NERVOUS SYSTEM: No numbness or weakness. ALLERGY/IMMUNOLOGY: No history of anemia. MUSCULOSKELETAL: As mentioned earlier. HEMATOLOGY/ONCOLOGY: No history of anemia. ENDOCRINE: No history of diabetes or hypothyroidism. CONSTITUTIONAL: As mentioned earlier. Dermatology: Negative. Rheumatology: Negative. Psychiatry: As mentioned earlier. PHYSICAL EXAMINATION: Alert and oriented times three. Pulse 79, blood pressure 118/60, respiratory 20 , temperature 98.7, pulse ox 94 percent on 3 L. HEENT is conjunctivae normal. Oral mucosa moist. Neck is no jugular venous distention. No carotid bruit. No lymph node enlargement. Cardiovascular: S1, S2 muffled. RESPIRATORY: Breath sounds diminished in the bases. Bilateral scattered rhonchi and crackles. Expiratory wheezing. ABDOMEN: Soft, nontender. No mass palpable. Legs no edema, no swelling. NERVOUS SYSTEM: Higher functions as mentioned earlier. Moves all four extremities. No focal deficits. Lymphatics: No lymph nodes palpable in the neck, axillae or groin. Skin: No ulcer, rash or bleeding. LABS: WBC 11.2, hemoglobin 15.5, INR is 4, creatinine is 1.1. ASSESSMENT: 1. chronic obstructive pulmonary disease, bronchial asthma acute exacerbation. 2. MRSA and Lou albicans alpha hemolytic Streptococcus and Enterococcus faecalis on the recent culture. 3. History of recent metabolic encephalopathy with possibly medication induced. 4. History of methicillin-resistant Staphylococcus aureus bronchopneumonia. 5. History of congestive heart failure. 6. History of deep vein thrombosis. 7. Hypertension. 8. History of hyperlipidemia. 9. History of myocardial infarction. 10.History of degenerative joint disease. 11.Pulmonary embolism. 12.History of hypothyroidism. 13.History of sarcoidosis. 14.Obesity with body mass index 37.4. 15.History of ventilator dependent respiratory failure with MRSA pneumonia. 16.History of viral meningitis. 17.Anxiety/bipolar depression/panic disorder. RECOMMENDATIONS AND DISCUSSION: In this 47-year-old woman who presented with multiple complex medical issues. We will monitor the patient closely, continue the current medications, continue symptomatic treatment. We will initiate broad-spectrum IV antibiotics, bronchodilators, empiric antibiotics, IV vancomycin. Infectious disease evaluation. Consult Dr. Hicks. Guarded prognosis because of multiple complex medical issues. A copy of dictation being forwarded to Dr. Liz Koch who is the primary physician. MMODL / IJN: [id number] / [id number]
[2017-11-22] MEDS: MORPHINE SULFATE 4 MG/ML SYRINGE IVP PRN (21:56)
[2017-11-22] MEDS: guaiFENesin 600 MG TABLET.ER PO SCH (21:58)
[2017-11-22] MEDS: METOPROLOL TARTRATE 50 MG TAB PO SCH (21:58)
[2017-11-22] MEDS: MIRTAZAPINE 45 MG TABLET PO SCH (21:58)
[2017-11-22] MEDS: busPIRone HCl 10 MG TAB PO SCH (21:59)
[2017-11-22] MEDS: PREGABALIN 75 MG CAP PO SCH (21:59)
[2017-11-22] MEDS: TEMAZEPAM 15 MG CAP PO PRN (21:59)
[2017-11-22] MEDS: INSULIN ASPART 100 UNIT/ML 1 ML 10 ML VIAL SQ SCH (22:00)
[2017-11-22] MEDS: HEPARIN SODIUM,PORCINE 5,000 UNIT/ML 1 ML VIAL SQ SCH (22:01)
[2017-11-22] MEDS: NYSTATIN 100,000 UNIT/GM POWD 15 GM TOPICAL SCH (22:01)
[2017-11-23] MEDS: ALPRAZolam 0.5 MG TAB PO PRN ×4 (00:06→23:09)
[2017-11-23] MEDS: PROMETHAZINE 6.25MG/5ML 147.5 MG/118 ML BOTTLE PO PRN ×2 (00:21→23:58)
[2017-11-23] MEDS: methylPREDNISolone SOD SUCCI 125 MG/2 ML VIAL IV SCH ×4 (00:22→17:45)
[2017-11-23] MEDS: MORPHINE SULFATE 4 MG/ML SYRINGE IVP PRN ×4 (02:01→14:17)
[2017-11-23 07:09] LABS: Glucose,Whole Blood 201 mg/dL (75-99)
[2017-11-23] MEDS: IPRATROPIUM-ALBUTEROL 3 ML NEB INHALATION SCH ×4 (07:45→19:46)
[2017-11-23] MEDS: INSULIN ASPART 100 UNIT/ML 1 ML 10 ML VIAL SQ SCH ×4 (07:53→22:20)
[2017-11-23] MEDS: PREGABALIN 75 MG CAP PO SCH ×2 (07:54→21:27)
[2017-11-23] MEDS: BUMETANIDE 1 MG TAB PO SCH ×2 (07:55→12:02)
[2017-11-23] MEDS: POTASSIUM CHLORIDE ER 20 MEQ TAB.ER PO SCH (07:55)
[2017-11-23] MEDS: METOPROLOL TARTRATE 50 MG TAB PO SCH ×2 (07:55→21:26)
[2017-11-23] MEDS: PANTOPRAZOLE 40 MG TABLET PO SCH (07:55)
[2017-11-23] MEDS: FLUoxetine HCL 20 MG CAP PO SCH (07:56)
[2017-11-23] MEDS: FLUCONAZOLE 100 MG TAB PO SCH (07:56)
[2017-11-23] MEDS: guaiFENesin 600 MG TABLET.ER PO SCH ×2 (07:56→21:26)
[2017-11-23] MEDS: lamoTRIgine 100 MG TAB PO SCH (07:56)
[2017-11-23] MEDS: busPIRone HCl 10 MG TAB PO SCH ×2 (07:56→21:25)
[2017-11-23] MEDS: HEPARIN SODIUM,PORCINE 5,000 UNIT/ML 1 ML VIAL SQ SCH ×2 (07:56→21:26)
[2017-11-23] MEDS ORDERED: IPRATROPIUM-ALBUTEROL 3 ML NEB INHALATION SCH (08:00)
[2017-11-23] MEDS ORDERED: VANCOMYCIN 2,000 MG in SODIUM CHLORIDE 0.9% 500 ML IVPB SCH (08:00)
[2017-11-23] MEDS: NYSTATIN 100,000 UNIT/GM POWD 15 GM TOPICAL SCH ×2 (09:02→21:27)
[2017-11-23 10:01] LABS: Basophils % (A) 0 %; Eosinophils % (A) 0 %; HCT 44.4 % (34.0-46.0); Lymphocytes # (A) 0.8 k/uL (1.0-4.8); Lymphocytes % (A) 9 %; MCH 29.9 pg (25.0-35.0); MCHC 33.8 g/dL (31.0-37.0); MCV 88.4 fL (80.0-100.0); Mean Platelet Volume 6.9; Monocytes # (A) 0.2 k/uL (0-1.0); Monocytes % (A) 3 %; Neutrophils # (A) 7.9 k/uL (1.3-7.7); Neutrophils % (A) 88 %; Platelet Count 253 k/uL (150-450); RBC 5.02 m/uL (3.80-5.40); RDW 13.3 % (11.5-15.5)
[2017-11-23 10:22] LABS: INR 3.4 (<1.2); Prothrombin Time 30.7 sec (9.0-12.0)
[2017-11-23 11:03] LABS: Anion Gap 13 mmol/L; Blood Urea Nitrogen 18 mg/dL (7-17); Calcium 9.1 mg/dL (8.4-10.2); Carbon Dioxide 17 mmol/L (22-30); Chloride 109 mmol/L (98-107); Glucose 210 mg/dL (74-99); Potassium 4.1 mmol/L (3.5-5.1); Sodium 139 mmol/L (137-145)
--- NOTE | 2017-11-23 11:05 | P.CONS ---
History of Present Illness - Reason for Consult Consult date: 11/23/17 MRSA - History of Present Illness This is a 47-year-old female that has multiple medical troubles that includes obesity and sarcoidosis. Is related that she was recently hospitalized at this facility for approximately one week and was treated for pneumonia. Because of ongoing difficulties with tenacious sputum and lack of improvement she was taken to the operating room and bronchoscopy was performed. Therapeutic lavage revealed evidence of large amounts of purulent secretions. After lavage she had a immediate improvement of her status and with this was thought to have evidence of mucous plugging and then was discharged to follow- up in the office. However the patient rapidly had a decline of her status becoming much more short of breath having sputum production and increasing weakness fatigue and malaise and believe that she had developed some fever, leukocytosis, increasing weakness and some alteration of her mental status. She was admitted November 12 to the and seen by pulmonary critical care as well as neurology. Infectious diseases was consulted at that time and patient was discharged home with Diflucan and Bactrim for 14 day course. Patient states that her breathing continued to worsen at home and she saw Dr. Castillo in the office yesterday and was sent into [facility] for IV antibiotics and admission. She had completed 10 days of the antimicrobials at home. She states she is congested with increased phlegm in the phlegm has a metallic and bad taste and smell. It is dark brown and dark green. She is complaining of right-sided rib pain from coughing. She has had nausea and decreased appetite. She also gives history that her INR was elevated on Sunday at 9.5 and on presentation was 4.0 in the ER. Patient was given a dose of vancomycin started on Solu-Medrol and nebulizer treatments. She is been afebrile, white count is 11.4, BUN 17 creatinine 0.14. Troponin was negative. Albumin 4.0. Blood cultures status received and sputum cultures are collected. A1c is also in progress. Chest x-ray showed no acute findings. She has a consult in place with Dr. Hicks. Patient states she quit smoking 3 weeks ago. She was a smoker one pack per day for 28 years. Review of Systems All systems: negative Constitutional: Reports fatigue, Reports poor appetite, Reports weakness, Denies chills, Denies fever Eyes: denies blurred vision, denies pain Ears, nose, mouth and throat: Denies dental pain, Denies dysphagia, Denies headache, Denies mouth pain, Denies sore throat, Denies vertigo Cardiovascular: Reports chest pain, Reports decreased exercise tolerance, Reports dyspnea on exertion, Reports shortness of breath, Denies edema, Denies leg edema, Denies lightheadedness, Denies syncope Respiratory: Reports congestion, Reports cough, Reports cough with sputum, Reports dyspnea, Reports excessive sputum, Reports respiratory infections, Reports wheezing, Denies hemoptysis, Denies home oxygen Gastrointestinal: Reports loss of appetite, Reports nausea, Denies abdominal pain, Denies diarrhea, Denies vomiting Genitourinary: Denies dysuria, Denies hematuria, Denies urgency, Denies urinary frequency Musculoskeletal: Denies myalgias Integumentary: Denies pruritus, Denies rash, Denies wounds Neurological: Denies numbness, Denies weakness Psychiatric: Denies anxiety, Denies depression Endocrine: Denies fatigue, Denies weight change Past Medical History Past Medical History: Blood Disorder, Heart Failure, COPD, Deep Vein Thrombosis (DVT), Hyperlipidemia, Hypertension, Myocardial Infarction (DE), Musculoskeletal Disorder, Pneumonia, Pulmonary Embolus (PE), Thyroid Disorder Additional Past Medical History / Comment(s): PE 2012; Sarcoidosis diagnosed in 2015 following a bronchoscopy and lung biopsy done at [facility] and she was started on predniosone and she took the therapy for almost 1 year, polycythemia, overweight, bilateral PE (2011, 2015), bilateral DVTs, fibromyalgia, bipolar disorder, degenerative disk disorder, coronary artery disease along with previous history of a DE and ventilator dependent respiratory failure with MRSA pneumonia for which the patient was hospitalized [facility] in 2012. Viral meningitis in October 2014. Pulmonary fibrosis, home 02 3l n/c Last Myocardial Infarction Date:: February 15, 2013 History of Any Multi-Drug Resistant Organisms: MRSA Year Discovered:: 11/09/17 MDRO Source:: PLEURAL FLUID Past Surgical History: Section, Cholecystectomy, Heart Catheterization , Hernia Repair, Orthopedic Surgery Additional Past Surgical History / Comment(s): Lt ankle surgery, several bronchosopy-most recently 11/09/17 Past Anesthesia/Blood Transfusion Reactions: Motion Sickness, Postoperative Nausea & Vomiting (PONV) Additional Past Anesthesia/Blood Transfusion Reaction / Comm: previously charted -pt stated that last April she coded due to anesthetic Past Psychological History: Anxiety, Bipolar, Depression, Panic Disorder Additional Psychological History / Comment(s): and lives in the family home with her . No recent travel. No experience Smoking Status: Never smoker Past Alcohol Use History: None Reported Additional Past Alcohol Use History / Comment(s): patient lives with her significant other. last admit 11-03-17 pt was smoking 1ppd- pt's faincee stated she continues to smoked but he's not pedrito=re how much and it depends on how stressed she gets". denies alcohol use or recreational drug use. Patient is currently not working. No service. No recent travel. No animal exposures. She did leave the hospital AMA in March 2017. Difficulties with ongoing medical noncompliance. Patient quit smoking 3 weeks ago. There is a dog in the home. Past Drug Use History: None Reported - Past Family History Father Family Medical History: Blood Disorder, Congestive Heart Failure (CHF), CVA/TIA , Deep Vein Thrombosis (DVT), Myocardial Infarction (DE) Additional Family Medical History / Comment(s): polycythemia Mother Family Medical History: Congestive Heart Failure (CHF), Diabetes Mellitus, Deep Vein Thrombosis (DVT), Myocardial Infarction (DE), Musculoskeletal Disorder Additional Family Medical History / Comment(s): DDD Sister(s) Family Medical History: No Reported History Brother(s) Family Medical History: No Reported History Son(s) Family Medical History: No Reported History Daughter(s) Family Medical History: No Reported History Medications and Allergies Home Medications Medication Instructions Recorded Confirmed Type FLUoxetine HCL [PROzac] 20 mg PO DAILY #30 capsule 08/20/15 11/26/17 Rx Metoprolol Tartrate [Lopressor] 50 mg PO BID #60 tab 08/20/15 11/26/17 Rx lamoTRIgine [LaMICtal] 200 mg PO DAILY 03/22/16 11/26/17 History Bumetanide 4 mg PO QAM 10/18/16 11/26/17 History Butalb/APAP/Caff 50-325-40Mg 1 tab PO Q4H PRN 10/18/16 11/26/17 History [Fioricet 50-325-40] Ondansetron HCl [Zofran] 4 mg PO BID PRN 10/18/16 11/26/17 History Mirtazapine [Remeron] 45 mg PO HS 04/10/17 11/26/17 History ALPRAZolam [Xanax] 0.5 mg PO TID PRN 06/06/17 11/26/17 History Bumetanide [BUMEX] 2 mg PO DAILY@1200 09/16/17 11/26/17 History Pregabalin [Lyrica] 150 mg PO BID 09/16/17 11/26/17 History busPIRone HCL [Buspar] 30 mg PO BID 09/16/17 11/26/17 History Baclofen [Lioresal] 20 mg PO Q8H PRN 10/09/17 11/26/17 History Morphine Sulfate ER [Ms Contin] 30 mg PO Q8H PRN 11/03/17 11/26/17 History Nystatin 100,000 Unit/gm Powd 1 applic TOPICAL BID 11/04/17 11/26/17 History [Mycostatin Powder] Promethazine/Dextromethorphan 5 ml PO Q6H PRN 11/04/17 11/26/17 History [Promethazine-Dm Solution] Docusate [Colace] 100 mg PO BID PRN #60 cap 11/10/17 11/26/17 Rx Ipratropium-Albuterol Nebulize 3 ml INHALATION RT-QID #120 11/10/17 11/26/17 Rx [Duoneb 0.5 mg-3 mg/3 ml Soln] ampul.neb Potassium Chloride ER [K-Dur 20] 20 meq PO DAILY #30 tab.er.prt 11/10/17 Rx guaiFENesin [Mucinex] 1,200 mg PO Q12HR #40 tablet.er 11/10/17 11/26/17 Rx Fluconazole 200 mg PO DAILY #14 tab 11/13/17 11/26/17 Rx Sulfamethox-Tmp 800-160Mg [Bactrim 1 tab PO Q12HR #28 tab 11/13/17 11/26/17 Rx DS 800-160 mg] Ibuprofen [Advil] 800 mg PO Q8HR PRN 11/22/17 11/26/17 History Allergies Allergy/AdvReac Type Severity Reaction Status Date / Time ketorolac tromethamine Allergy Severe Anaphylaxis Verified 11/26/17 08:44 [From Toradol] Opioids - Morphine Analogues Allergy Mild Itching Verified 11/26/17 08:44 Iodinated Contrast- Oral and Allergy Unknown Verified 11/26/17 08:44 IV Dye rivaroxaban [From Xarelto] Allergy Rash/Hives Verified 11/26/17 08:44 sumatriptan [From Imitrex] Allergy Anaphylaxis Verified 11/26/17 08:44 sumatriptan succinate Allergy Anaphylaxis Verified 11/26/17 08:44 [From Imitrex] morphine AdvReac Severe Itching Verified 11/26/17 08:44 iodine AdvReac Intermediate Itching Verified 11/26/17 08:44 tramadol AdvReac Anaphylaxis Verified 11/26/17 08:44 vancomycin AdvReac Itching Verified 11/26/17 08:44 Rich wipes AdvReac Severe Rash/Hives Uncoded 11/25/17 23:40 Physical Exam Vitals: Vital Signs Temp Pulse Pulse Resp BP BP Pulse Ox 11/23/17 07:57 76 11/23/17 07:46 72 11/23/17 07:00 97.3 F L 68 16 150/72 100 11/22/17 23:00 96.9 F L 81 18 122/53 96 11/22/17 19:22 98.7 F 79 20 118/68 95 11/22/17 17:52 90 18 11/22/17 17:33 87 18 11/22/17 16:48 98.4 F 94 22 128/74 95 Intake and Output 11/22/17 11/23/17 11/23/17 22:59 06:59 14:59 Intake Total 1300 Balance 1300 Intake: Amount of Fluid Infused ( 1300 ml) Other: Voiding Method Toilet # Voids 1 Weight 105 kg 47-year-old female who has obesity. Patient is sitting up in bed and appears to be mostly comfortable. Mild respiratory distress with talking. HEENT: Anicteric conjunctiva are pink and moist nasal mucosa grossly intact without significant lesions, there is no thrush. Neck: The neck is supple without significant lymphadenopathy or thyromegaly. Lungs: Symmetrical air entry is noted, expiratory wheezes are scattered throughout with no true bronchial sounds no dullness or egophony Heart: Regular rate and rhythm with an audible S1-S2, no S3 no S4. There is no significant murmur click or rub, PMI was nondisplaced. Tenderness to the right lower lateral/anterior ribs. Abdomen: Obese, Positive bowel sounds soft and nontender without palpable masses or organomegaly. There was no guarding or rebound. Extremities: The upper extremities have excellent pulses they are symmetric, no significant petechiae or telangiectasia. No splinter hemorrhages were noted. The lower extremities have only trace pedal edema The peripheral pulses were 2+ and symmetric. Neuro: Awake alert oriented to person place and time. There are no acute new gross focal sensory motor deficits. Results Results: Laboratory Results WBC 9.0 k/uL (3.8-10.6) 11/23/17 09:39 RBC 5.02 m/uL (3.80-5.40) 11/23/17 09:39 Hgb 15.0 gm/dL (11.4-16.0) 11/23/17 09:39 Hct 44.4 % (34.0-46.0) 11/23/17 09:39 MCV 88.4 fL (80.0-100.0) 11/23/17 09:39 MCH 29.9 pg (25.0-35.0) 11/23/17 09:39 MCHC 33.8 g/dL (31.0-37.0) 11/23/17 09:39 RDW 13.3 % (11.5-15.5) 11/23/17 09:39 Plt Count 253 k/uL (150-450) 11/23/17 09:39 Neutrophils % 88 % 11/23/17 09:39 Lymphocytes % 9 % 11/23/17 09:39 Monocytes % 3 % 11/23/17 09:39 Eosinophils % 0 % 11/23/17 09:39 Basophils % 0 % 11/23/17 09:39 Neutrophils # 7.9 k/uL (1.3-7.7) H 11/23/17 09:39 Lymphocytes # 0.8 k/uL (1.0-4.8) L 11/23/17 09:39 Monocytes # 0.2 k/uL (0-1.0) 11/23/17 09:39 Eosinophils # 0.0 k/uL (0-0.7) 11/23/17 09:39 Basophils # 0.0 k/uL (0-0.2) 11/23/17 09:39 PT 30.7 sec (9.0-12.0) H 11/23/17 09:45 INR 3.4 (<1.2) H 11/23/17 09:45 APTT 50.3 sec (22.0-30.0) H 11/22/17 17:35 Sodium 139 mmol/L (137-145) 11/23/17 09:39 Potassium 4.1 mmol/L (3.5-5.1) 11/23/17 09:39 Chloride 109 mmol/L (98-107) H 11/23/17 09:39 Carbon Dioxide 17 mmol/L (22-30) L 11/23/17 09:39 Anion Gap 13 mmol/L 11/23/17 09:39 BUN 18 mg/dL (7-17) H 11/23/17 09:39 Creatinine 0.67 mg/dL (0.52-1.04) 11/23/17 09:39 Est GFR (CKD-EPI)AfAm >90 (>60 ml/min/1.73 sqM) 11/23/17 09:39 Est GFR (CKD-EPI)NonAf >90 (>60 ml/min/1.73 sqM) 11/23/17 09:39 Glucose 210 mg/dL (74-99) H 11/23/17 09:39 POC Glucose (mg/dL) 201 mg/dL (75-99) H 11/23/17 07:06 POC Glu [employer] [place] 11/23/17 07:06 Calcium 9.1 mg/dL (8.4-10.2) 11/23/17 09:39 Magnesium 1.6 mg/dL (1.6-2.3) 11/22/17 17:35 Total Bilirubin 0.6 mg/dL (0.2-1.3) 11/22/17 17:35 AST 34 U/L (14-36) 11/22/17 17:35 ALT 48 U/L (9-52) 11/22/17 17:35 Alkaline Phosphatase 112 U/L (38-126) 11/22/17 17:35 Total Creatine Kinase 126 U/L (30-135) 11/22/17 17:35 CK-MB (CK-2) 0.6 ng/mL (0.0-2.4) 11/22/17 17:35 CK-MB (CK-2) Rel Index 0.5 11/22/17 17:35 Troponin I <0.012 ng/mL (0.000-0.034) 11/22/17 17:35 Total Protein 7.3 g/dL (6.3-8.2) 11/22/17 17:35 Albumin 4.0 g/dL (3.5-5.0) 11/22/17 17:35 CBC & Chem 7: 11/24/17 08:06 11/24/17 08:06 Labs: Abnormal Lab Results - Last 24 Hours (Table) 11/22/17 11/22/17 11/22/17 Range/Units 17:35 17:35 17:35 WBC 11.3 H (3.8-10.6) k/uL Hct 46.4 H (34.0-46.0) % Neutrophils # (1.3-7.7) k/uL Lymphocytes # (1.0-4.8) k/uL PT 35.7 H (9.0-12.0) sec INR 4.0 H (<1.2) APTT 50.3 H (22.0-30.0) sec Carbon Dioxide 21 L (22-30) mmol/L Creatinine 1.14 H (0.52-1.04) mg/dL Glucose 116 H (74-99) mg/dL POC Glucose (mg/dL) (75-99) mg/dL 11/22/17 11/23/17 11/23/17 Range/Units 21:19 07:06 09:39 WBC (3.8-10.6) k/uL Hct (34.0-46.0) % Neutrophils # 7.9 H (1.3-7.7) k/uL Lymphocytes # 0.8 L (1.0-4.8) k/uL PT (9.0-12.0) sec INR (<1.2) APTT (22.0-30.0) sec Carbon Dioxide (22-30) mmol/L Creatinine (0.52-1.04) mg/dL Glucose (74-99) mg/dL POC Glucose (mg/dL) 181 H 201 H (75-99) mg/dL Assessment and Plan Plan: This is a 47-year-old female presents to hospital with increasing shortness of breath, congestion, COPD exacerbation. No pneumonia found on chest x-ray. She has been started on vancomycin, DuoNeb treatments, continued on Diflucan. Sputum culture to be obtained. Blood culture is status received. Continue supportive care. Further recommendations as patient progresses. The above dictated assessment and findings were discussed with Dr. Lott. The impression and plan of care have been directed as dictated. Jen Burr nurse practitioner acting as scribe for Dr. Lott.
[2017-11-23 12:00] LABS: Glucose,Whole Blood 206 mg/dL (75-99)
[2017-11-23] MEDS: BUTALB/APAP/CAFF 50-325-40MG TAB PO PRN (12:03)
--- NOTE | 2017-11-23 12:43 | XR ---
EXAMINATION TYPE: XR chest 2V DATE OF EXAM: 11/23/2017 COMPARISON: November 22, 2017 HISTORY: Chest pain TECHNIQUE: Frontal and lateral views of the chest are obtained. FINDINGS: There is no focal air space opacity. Interstitial prominence throughout both lung diana may reflect viral or atypical pneumonitis. Correlate clinically. No evidence for pneumothorax. No pleural effusion. The cardiac silhouette size is within normal limits. The osseous structures are grossly intact. IMPRESSION: 1. Interstitial prominence throughout both lung diana may reflect viral or atypical pneumonitis. Co rrelate clinically.
[2017-11-23] MEDS: diphenhydrAMINE 50 MG/ML 1 ML VIAL IVP PRN ×2 (14:48→19:59)
--- NOTE | 2017-11-23 14:58 | P.CNPUL ---
History of Present Illness Consult date: 11/23/17 Reason for consult: COPD History of present illness: This 47-year-old female patient is known to have COPD and she is a chronic smoker. The patient was in the hospital back in 11/04/2017 admitted for an acute COPD exacerbation. During the course of treatment the patient continued to be short of breath and bronchospastic and wheezy. Ultimately she underwent a bronchoscopy and the bronchioloalveolar lavage showed a combination of MRSA, Enterococcus faecalis and strep species. Noted the patient was discharged home on Bactrim and the patient was feeling significantly better. She finished a total of 10-14 day course of Bactrim on outpatient basis. However her condition was getting worse and she was having vigorous cough and congestion wheezing and she had skeletal pain and discomfort along the right chest area. For that reason the patient so Dr. Noyola yesterday in the office and she was asked to come into the hospital for further evaluation. In the emergency department the patient was started on vancomycin. Chest x-ray showed no acute abnormalities. She is currently requiring morphine 4 mg every 4 hours for pain control. She is also on Phenergan for cough suppression. She states that she hasn't smoked since her discharge from the hospital. No angina. No pleurisy. No swelling lower extremities. She is obese and she has some cushingoid features related to chronic steroid use. She is on long-term articulation with warfarin regarding previous history of pulmonary embolism and the patient's INR is at 3.4. No significant leukocytosis. Her repeat chest x-ray again showed chronic interstitial prominence which was seen on previous chest x-ray and CAT scan findings. Review of Systems Constitutional: Reports fatigue, Reports weakness, Reports weight gain Eyes: denies blurred vision, denies bulging eye, denies decreased vision Ears: deny: decreased hearing, ear discharge, earache, tinnitus Ears, nose, mouth and throat: Denies headache, Denies sore throat Cardiovascular: Reports decreased exercise tolerance, Reports dyspnea on exertion, Reports shortness of breath Respiratory: Reports cough, Reports dyspnea, Reports wheezing, reports skeletal chest wall pain especially on the right side with breathing coughing and movement. Gastrointestinal: Denies abdominal pain, Denies diarrhea, Denies nausea, Denies vomiting Genitourinary: Denies dysuria, Denies hematuria Menstruation: Reports as per HPI Musculoskeletal: Reports as per HPI Musculoskeletal: absent: ankle pain, ankle stiffness, ankle swelling Integumentary: Denies pruritus, Denies rash Neurological: Reports weakness Psychiatric: Denies anxiety, Denies depression Endocrine: Denies fatigue, Denies weight change Hematologic/Lymphatic: Reports as per HPI Allergic/Immunologic: Reports as per HPI Past Medical History Past Medical History: Blood Disorder, Heart Failure, COPD, Deep Vein Thrombosis (DVT), Hyperlipidemia, Hypertension, Myocardial Infarction (VT), Musculoskeletal Disorder, Pneumonia, Pulmonary Embolus (PE), Thyroid Disorder Additional Past Medical History / Comment(s): PE 2012; Sarcoidosis diagnosed in 2015 following a bronchoscopy and lung biopsy done at [facility] and she was started on predniosone and she took the therapy for almost 1 year, polycythemia, overweight, bilateral PE (2011, 2015), bilateral DVTs, fibromyalgia, bipolar disorder, degenerative disk disorder, coronary artery disease along with previous history of a VT and ventilator dependent respiratory failure with MRSA pneumonia for which the patient was hospitalized [facility] in 2012. Viral meningitis in October 2014. Pulmonary fibrosis, home 02 3l n/c Last Myocardial Infarction Date:: February 15, 2013 History of Any Multi-Drug Resistant Organisms: MRSA Date of last positivie culture/infection: 11/09/17 MDRO Source:: PLEURAL FLUID Past Surgical History: Section, Cholecystectomy, Heart Catheterization , Hernia Repair, Orthopedic Surgery Additional Past Surgical History / Comment(s): Lt ankle surgery, several bronchosopy-most recently 11/09/17 Past Anesthesia/Blood Transfusion Reactions: Motion Sickness, Postoperative Nausea & Vomiting (PONV) Additional Past Anesthesia/Blood Transfusion Reaction / Comment(s): previously charted -pt stated that last April she coded due to anesthetic Past Psychological History: Anxiety, Bipolar, Depression, Panic Disorder Additional Psychological History / Comment(s): and lives in the family home with her . No recent travel. No experience Smoking Status: Never smoker Past Alcohol Use History: None Reported Additional Past Alcohol Use History / Comment(s): patient lives with her significant other. last admit 11-03-17 pt was smoking 1ppd- pt's faincee stated she continues to smoked but he's not pedrito=re how much and it depends on how stressed she gets". denies alcohol use or recreational drug use. Patient is currently not working. No service. No recent travel. No animal exposures. She did leave the hospital AMA in March 2017. Difficulties with ongoing medical noncompliance. Patient quit smoking 3 weeks ago. There is a dog in the home. Past Drug Use History: None Reported - Past Family History Father Family Medical History: Blood Disorder, Congestive Heart Failure (CHF), CVA/TIA , Deep Vein Thrombosis (DVT), Myocardial Infarction (VT) Additional Family Medical History / Comment(s): polycythemia Mother Family Medical History: Congestive Heart Failure (CHF), Diabetes Mellitus, Deep Vein Thrombosis (DVT), Myocardial Infarction (VT), Musculoskeletal Disorder Additional Family Medical History / Comment(s): DDD Sister(s) Family Medical History: No Reported History Brother(s) Family Medical History: No Reported History Son(s) Family Medical History: No Reported History Daughter(s) Family Medical History: No Reported History Medications and Allergies Home Medications Medication Instructions Recorded Confirmed Type FLUoxetine HCL [PROzac] 20 mg PO DAILY #30 capsule 08/20/15 11/22/17 Rx Metoprolol Tartrate [Lopressor] 50 mg PO BID #60 tab 08/20/15 11/22/17 Rx lamoTRIgine [LaMICtal] 200 mg PO DAILY 03/22/16 11/22/17 History Bumetanide 4 mg PO QAM 10/18/16 11/22/17 History Butalb/APAP/Caff 50-325-40Mg 1 tab PO Q4H PRN 10/18/16 11/22/17 History [Fioricet 50-325-40] Ondansetron HCl [Zofran] 4 mg PO BID PRN 10/18/16 11/22/17 History Mirtazapine [Remeron] 45 mg PO HS 04/10/17 11/22/17 History ALPRAZolam [Xanax] 0.5 mg PO TID PRN 06/06/17 11/22/17 History Bumetanide [BUMEX] 2 mg PO DAILY@1200 09/16/17 11/22/17 History Pregabalin [Lyrica] 150 mg PO BID 09/16/17 11/22/17 History busPIRone HCL [Buspar] 30 mg PO BID 09/16/17 11/22/17 History Baclofen [Lioresal] 20 mg PO Q8H PRN 10/09/17 11/22/17 History Morphine Sulfate ER [Ms Contin] 30 mg PO Q8H PRN 11/03/17 11/22/17 History Nystatin 100,000 Unit/gm Powd 1 applic TOPICAL BID 11/04/17 11/22/17 History [Mycostatin Powder] Promethazine/Dextromethorphan 5 ml PO Q6H PRN 11/04/17 11/22/17 History [Promethazine-Dm Solution] Docusate [Colace] 100 mg PO BID PRN #60 cap 11/10/17 11/22/17 Rx Ipratropium-Albuterol Nebulize 3 ml INHALATION RT-QID #120 11/10/17 11/22/17 Rx [Duoneb 0.5 mg-3 mg/3 ml Soln] ampul.neb Potassium Chloride ER [K-Dur 20] 20 meq PO DAILY #30 tab.er.prt 11/10/17 Rx guaiFENesin [Mucinex] 1,200 mg PO Q12HR #40 tablet.er 11/10/17 11/22/17 Rx Fluconazole 200 mg PO DAILY #14 tab 11/13/17 11/22/17 Rx Sulfamethox-Tmp 800-160Mg [Bactrim 1 tab PO Q12HR #28 tab 11/13/17 11/22/17 Rx DS 800-160 mg] Ibuprofen [Advil] 800 mg PO Q8HR PRN 11/22/17 11/22/17 History Allergies Allergy/AdvReac Type Severity Reaction Status Date / Time ketorolac tromethamine Allergy Severe Anaphylaxis Verified 11/22/17 17:25 [From Toradol] Opioids - Morphine Analogues Allergy Mild Itching Verified 11/22/17 17:25 Iodinated Contrast- Oral and Allergy Unknown Verified 11/22/17 17:25 IV Dye rivaroxaban [From Xarelto] Allergy Rash/Hives Verified 11/22/17 17:25 sumatriptan [From Imitrex] Allergy Anaphylaxis Verified 11/22/17 17:25 sumatriptan succinate Allergy Anaphylaxis Verified 11/22/17 17:25 [From Imitrex] morphine AdvReac Severe Itching Verified 11/22/17 17:25 iodine AdvReac Intermediate Itching Verified 11/22/17 17:25 tramadol AdvReac Anaphylaxis Verified 11/22/17 17:25 vancomycin AdvReac Itching Verified 11/22/17 17:25 Rich wipes AdvReac Severe Rash/Hives Uncoded 09/16/17 15:30 Physical Exam Vitals: Vital Signs Temp Pulse Pulse Resp BP BP Pulse Ox 11/23/17 11:30 84 11/23/17 11:15 84 11/23/17 07:57 76 11/23/17 07:46 72 11/23/17 07:00 97.3 F L 68 16 150/72 100 11/22/17 23:00 96.9 F L 81 18 122/53 96 11/22/17 19:22 98.7 F 79 20 118/68 95 11/22/17 17:52 90 18 11/22/17 17:33 87 18 11/22/17 16:48 98.4 F 94 22 128/74 95 Intake and Output 11/22/17 11/23/17 11/23/17 22:59 06:59 14:59 Intake Total 1300 Balance 1300 Intake: Amount of Fluid Infused ( 1300 ml) Other: Voiding Method Toilet # Voids 1 Weight 105 kg GENERAL EXAM: Alert, pleasant, obese HEAD: Normocephalic/atraumatic. EYES: Normal reaction of pupils, equal size. Conjunctiva pink, sclera white. NOSE: Clear with pink turbinates. THROAT: No erythema or exudates. NECK: No masses, no JVD, no thyroid enlargement, no adenopathy. CHEST: No chest wall deformity. Symmetrical expansion. LUNGS: Lung sounds are diminished, and there are diffuse expiratory wheezes throughout the lung diana bilaterally along with prolongation of expiratory phase of breathing. CVS: Regular rate and rhythm, normal S1 and S2, no gallops, no murmurs, no rubs ABDOMEN: Soft, nontender. No hepatosplenomegaly, normal bowel sounds, no guarding or rigidity. EXTREMITIES: No clubbing, no edema, no cyanosis, 2+ pulses and upper and lower extremities. MUSCULOSKELETAL: Muscle strength and tone normal. SPINE: No scoliosis or deformity SKIN: No rashes CENTRAL NERVOUS SYSTEM: Alert and oriented -3. No focal deficits, tone is normal in all 4 extremities. PSYCHIATRIC: Alert and oriented -3. Appropriate affect. Intact judgment and insight. Results - Laboratory Findings CBC and BMP: 11/23/17 09:39 11/23/17 09:39 PT/INR, D-dimer PT 30.7 sec (9.0-12.0) H 11/23/17 09:45 INR 3.4 (<1.2) H 11/23/17 09:45 Abnormal lab findings: Abnormal Labs 11/22/17 11/22/17 11/22/17 17:35 17:35 17:35 WBC 11.3 H Hct 46.4 H Neutrophils # Lymphocytes # PT 35.7 H INR 4.0 H APTT 50.3 H Chloride Carbon Dioxide 21 L BUN Creatinine 1.14 H Glucose 116 H POC Glucose (mg/dL) 11/22/17 11/23/17 11/23/17 21:19 07:06 09:39 WBC Hct Neutrophils # 7.9 H Lymphocytes # 0.8 L PT INR APTT Chloride Carbon Dioxide BUN Creatinine Glucose POC Glucose (mg/dL) 181 H 201 H 11/23/17 11/23/17 11/23/17 09:39 09:45 11:59 WBC Hct Neutrophils # Lymphocytes # PT 30.7 H INR 3.4 H APTT Chloride 109 H Carbon Dioxide 17 L BUN 18 H Creatinine Glucose 210 H POC Glucose (mg/dL) 206 H - Diagnostic Findings Chest x-ray: image reviewed Assessment and Plan Plan: #1. Acute COPD exacerbation with secondary shortness of breath. The patient was in the hospital approximately 3 weeks ago treated for an acute COPD exacerbation a bronchoscopy back then showed a combination of MRSA, Enterococcus faecalis and strep. Obviously MRSA has been there the past and cultures and please bronchoscopies. The patient took Bactrim on outpatient basis and she's coming in with similar symptoms of COPD exacerbation, and failed to recover on outpatient basis. #2. Musculoskeletal right-sided chest wall pain secondary to cough. Chest x- ray shows increased interstitial markings probably related to a previous sarcoidosis. #3. Chronic hypoxic respiratory failure secondary to above #4. Sarcoidosis, confirmed by lung biopsy at [facility] 2014, treated with systemic steroids that was ultimately weaned off and discontinued #5. History of pulmonary embolisms in 2011, 2016, DVTs, currently on anticoagulation with Coumadin, with therapeutic PT/INR #6. Nicotine addiction, ongoing, currently down to 2 cigarettes per day, carries over [id number] smoking history #7. Obesity with features of obstructive sleep apnea #8. Anxiety #9. CAD, history of myocardial infarction #10. Recurrent hospitalizations for respiratory complications #11. Bipolar disorder #12. Degenerative disc disease #13. Hypertension #14 hyperlipidemia #15 fibromyalgia Plan IV vancomycin, infectious disease consultation, bronchodilators, steroids, pain control with morphine, cough suppressant with Phenergan. Obtain a high resolution CAT scan of the chest. We'll continue to follow.
[2017-11-23] MEDS ORDERED: MORPHINE ORAL SOLN 10 MG/5 ML CUP PO PRN (15:45)
[2017-11-23 16:09] LABS: Hemoglobin A1C 5.5 % (4.0-6.0)
--- NOTE | 2017-11-23 16:21 | CT ---
EXAMINATION TYPE: CT chest wo con DATE OF EXAM: 11/23/2017 COMPARISON: CTA chest May 08, 2017 and July 31, 2017. HISTORY: Patient complains of MRSA in lung. CT DLP: 139 mGycm. Automated Exposure Control for Dose Reduction was Utilized. TECHNIQUE: CT scan of the thorax is performed without IV contrast. High-resolution protocol with 1 m m sequences obtained at 10 mm intervals in supine technique only as patient is unable to lay prone FINDINGS: LUNGS: Moderate underlying emphysematous change with scattered bleb and small cystic changes seen mark aterally. There is peripheral reticulation and groundglass opacity scattered bilaterally most promine nt in the upper lobes. I do suspect some areas of involvement new from May CT. No pleural effusi on or pneumothorax is seen bilaterally. No significant bronchiectasis is noted. MEDIASTINUM: Lack of IV contrast is noted to limit evaluation for mediastinal and especially hilar a denopathy. There are no definitive greater than 1 cm hilar or mediastinal lymph nodes. No cardiomeg beth or pericardial effusion is seen. OTHER: Lobulation to the liver is seen. Visualized spleen is prominent. Clinical correlation for cirr hosis and underlying portal hypertension is advised. IMPRESSION: Acute on chronic process is felt present. Correlate clinically.
[2017-11-23 17:00] LABS: Glucose,Whole Blood 148 mg/dL (75-99)
[2017-11-23] MEDS: HYDROmorphone 1 MG/ML 1 ML SYRINGE IVP PRN ×2 (17:26→21:28)
[2017-11-23] MEDS: VANCOMYCIN 2,000 MG in SODIUM CHLORIDE 0.9% 500 ML IVPB SCH (19:57)
[2017-11-23 21:22] LABS: Glucose,Whole Blood 164 mg/dL (75-99)
[2017-11-23] MEDS: MIRTAZAPINE 45 MG TABLET PO SCH (21:27)
[2017-11-23] MEDS: TEMAZEPAM 15 MG CAP PO PRN (21:28)
--- NOTE | 2017-11-23 21:30 | P.PN ---
Subjective Progress Note Date: 11/23/17 progress note being dictated for Dr. Church interval history: This is a 47-year-old female admitted with acute COPD exacerbation, recent bronchoscopy reporting MRSA, enterococcus faecalis, Streptococcus,right sided chest wall pain, chronic hypoxic respiratory failure, multiple other medical issues including history of sarcoidosis. Maintained on vancomycin, nebulized bronchodilators, steroids.evaluated by pulmonary with recommendations noted. INR currently 3.4, anticoagulated on Coumadin regarding history of PE.Chest x-ray reporting interstitial prominence throughoutboth lung diana, possible viral or atypical pneumonitis.High-resolution Chest CT ordered. Objective - Vital Signs Vital signs: Vital Signs Temp 97.1 F L 11/23/17 15:00 Pulse 80 11/23/17 20:01 Resp 20 11/23/17 15:00 BP 109/70 11/23/17 15:00 Pulse Ox 95 11/23/17 15:00 Intake & Output 11/23/17 11/23/17 11/24/17 06:59 18:59 06:59 Intake Total 1300 Balance 1300 Weight 105 kg Intake: Amount of Fluid Infused ( 1300 ml) Other: Voiding Method Toilet # Voids 1 3 - Exam PHYSICAL EXAM: VITAL SIGNS: [as above] GENERAL: sitting up in bed, no acute distress HEENT: Conjunctivae normal. eyes normal. oral mucosa moist NECK: No JVD. No thyroid enlargement. No LNs CARDIOVASCULAR: S1, S2 muffled. No murmur RESPIRATION: Breath sounds diminished in the bases. No rhonchi or crackles.occasionalfine expiratory wheezing ABDOMEN: Soft, nontender . No guarding. no masses palpable.Bowel sounds heard. LEGS: No edema. no swelling PSYCHIATRY: Alert and oriented -3, mood and affect normal. NERVOUS SYSTEM: Cranial N 2-12 grossly normal. Moves all 4 limbs. Diffuse weakness No focal deficits. Skin: no rash - Labs CBC & Chem 7: 11/23/17 09:39 11/23/17 09:39 Labs: Abnormal Lab Results - Last 24 Hours (Table) 11/22/17 11/23/17 11/23/17 Range/Units 21:19 07:06 09:39 Neutrophils # 7.9 H (1.3-7.7) k/uL Lymphocytes # 0.8 L (1.0-4.8) k/uL PT (9.0-12.0) sec INR (<1.2) Chloride (98-107) mmol/L Carbon Dioxide (22-30) mmol/L BUN (7-17) mg/dL Glucose (74-99) mg/dL POC Glucose (mg/dL) 181 H 201 H (75-99) mg/dL 11/23/17 11/23/17 11/23/17 Range/Units 09:39 09:45 11:59 Neutrophils # (1.3-7.7) k/uL Lymphocytes # (1.0-4.8) k/uL PT 30.7 H (9.0-12.0) sec INR 3.4 H (<1.2) Chloride 109 H (98-107) mmol/L Carbon Dioxide 17 L (22-30) mmol/L BUN 18 H (7-17) mg/dL Glucose 210 H (74-99) mg/dL POC Glucose (mg/dL) 206 H (75-99) mg/dL 11/23/17 Range/Units 16:57 Neutrophils # (1.3-7.7) k/uL Lymphocytes # (1.0-4.8) k/uL PT (9.0-12.0) sec INR (<1.2) Chloride (98-107) mmol/L Carbon Dioxide (22-30) mmol/L BUN (7-17) mg/dL Glucose (74-99) mg/dL POC Glucose (mg/dL) 148 H (75-99) mg/dL Microbiology - Last 24 Hours (Table) 11/22/17 17:35 Blood Culture - Preliminary Blood No Growth after 24 hours Assessment and Plan Assessment: 1.acute COPD exacerbation, bronchial asthma acute exacerbation 2. Recent bronchoscopy cultures reporting MRSA, Lou albicans, alphahemolytic streptococcus and Enterococcus Faecalis 3. Recent metabolic encephalopathy ,possibly medication induced 4. History of MRSA Staphylococcus aureus bronchopneumonia 5. History of CHF 6. Hypertension 7. History of PE 8.anxiety, bipolar depression, panic disorder Plan: Continue on current medication regime ,monitoring and symptomatic treatment. Maintain broad-spectrum IV antibiotics, nebulized bronchodilators. High-resolution CT pending follow closely with both pulmonary and infectious disease.prognosis is guarded given multiple complex medical issues.further recommendations to follow. The impression and plan of care has been dictated as directed. : I performed a history and examination of this patient, discussed the same with the dictator. I agree with the dictator's note ,documented as a scribe. Any additional findings or plans will be noted.
[2017-11-23] MEDS ORDERED: ACETAMINOPHEN TAB 325 MG TAB PO PRN (21:33)
--- NOTE | 2017-11-23 23:57 | P.CON ---
Consult Note - . Consult date: 11/23/17 Assessment/Plan:: This is a 47-year-old female that has multiple medical troubles that includes obesity and sarcoidosis. Is related that she was recently hospitalized at this facility for approximately one week and was treated for pneumonia. Because of ongoing difficulties with tenacious sputum and lack of improvement she was taken to the operating room and bronchoscopy was performed. Therapeutic lavage revealed evidence of large amounts of purulent secretions. After lavage she had a immediate improvement of her status and with this was thought to have evidence of mucous plugging and then was discharged to follow- up in the office. However the patient rapidly had a decline of her status becoming much more short of breath having sputum production and increasing weakness fatigue and malaise and believe that she had developed some fever, leukocytosis, increasing weakness and some alteration of her mental status. She was admitted November 12 to the and seen by pulmonary critical care as well as neurology. Infectious diseases was consulted at that time and patient was discharged home with Diflucan and Bactrim for 14 day course. Patient states that her breathing continued to worsen at home and she saw Dr. Castillo in the office yesterday and was sent into [facility] for IV antibiotics and admission. She had completed 10 days of the antimicrobials at home. She states she is congested with increased phlegm in the phlegm has a metallic and bad taste and smell. It is dark brown and dark green. She is complaining of right-sided rib pain from coughing. She has had nausea and decreased appetite. She also gives history that her INR was elevated on Sunday at 9.5 and on presentation was 4.0 in the ER. Patient was given a dose of vancomycin started on Solu-Medrol and nebulizer treatments. She is been afebrile, white count is 11.4, BUN 17 creatinine 0.14. Troponin was negative. Albumin 4.0. Blood cultures status received and sputum cultures are collected. A1c is also in progress. Chest x-ray showed no acute findings. She has a consult in place with Dr. Hicks. Patient states she quit smoking 3 weeks ago. She was a smoker one pack per day for 28 years. Please see the consult note is dictated by nurse practitioner Jen Aminah. 47-year-old female well-known to the infectious disease service regarding her recent hospitalization. The patient has significant anxiety. She was at home feeling poorly with worsening shortness of breath. She complains of fever at home. However the home care nurse could not collaborate her fever. She's also had no fever since she has been admitted. Regardless she feels poorly. She has significant pleuritic type chest discomfort as well as rib pain to the right side that she relates has worsened because of her significant amount of coughing. She has been seen by pulmonary critical care. We will need to coordinate the treatment plan. During her last stay she had evidence of bronchoscopy with the only significant pathogen being of MRSA. This was treated with Bactrim at home, she has had resolution of her fever and leukocytosis. Computed tomography scan has been performed that shows evidence of no significant new infiltration but does have underlying emphysema and interstitial lung changes that may have had some progression since May of this year. The patient does have sarcoidosis is a significant underlying lung disease. We discussed potential follow-up in a tertiary center for evaluation for clinical trial or other interventions. At this moment does not appear to have bacterial pneumonia as the etiology of her current symptoms. She is receiving pain medication and steroid therapy. She voices significant desire to have a more permanent IV access placed given the difficulty she has with this. Based on her history, and lack of current infection by current data, I would not advise this type of access. I agree with evaluation, assessment and plan is dictated by nurse practitioner Mrs. Jen Burr.
[2017-11-24] MEDS: HYDROmorphone 1 MG/ML 1 ML SYRINGE IVP PRN (01:28)
[2017-11-24] MEDS: methylPREDNISolone SOD SUCCI 125 MG/2 ML VIAL IV SCH ×3 (06:21→12:22)
[2017-11-24 07:14] LABS: Glucose,Whole Blood 183 mg/dL (75-99)
[2017-11-24] MEDS: HEPARIN SODIUM,PORCINE 5,000 UNIT/ML 1 ML VIAL SQ SCH (07:34)
[2017-11-24] MEDS: IPRATROPIUM-ALBUTEROL 3 ML NEB INHALATION SCH ×3 (07:34→15:48)
[2017-11-24] MEDS: VANCOMYCIN 2,000 MG in SODIUM CHLORIDE 0.9% 500 ML IVPB SCH (07:38)
[2017-11-24] MEDS: INSULIN ASPART 100 UNIT/ML 1 ML 10 ML VIAL SQ SCH ×2 (07:38→12:22)
[2017-11-24] MEDS: PREGABALIN 75 MG CAP PO SCH (07:38)
[2017-11-24] MEDS: NYSTATIN 100,000 UNIT/GM POWD 15 GM TOPICAL SCH (07:39)
[2017-11-24] MEDS: POTASSIUM CHLORIDE ER 20 MEQ TAB.ER PO SCH (07:39)
[2017-11-24] MEDS: BUMETANIDE 1 MG TAB PO SCH ×2 (07:40→12:22)
[2017-11-24] MEDS: PANTOPRAZOLE 40 MG TABLET PO SCH (07:40)
[2017-11-24] MEDS: busPIRone HCl 10 MG TAB PO SCH (07:40)
[2017-11-24] MEDS: METOPROLOL TARTRATE 50 MG TAB PO SCH (07:41)
[2017-11-24] MEDS: guaiFENesin 600 MG TABLET.ER PO SCH (07:41)
[2017-11-24] MEDS: lamoTRIgine 100 MG TAB PO SCH (07:41)
[2017-11-24] MEDS: FLUCONAZOLE 100 MG TAB PO SCH (07:41)
[2017-11-24] MEDS: FLUoxetine HCL 20 MG CAP PO SCH (07:41)
[2017-11-24] MEDS: BUTALB/APAP/CAFF 50-325-40MG TAB PO PRN (07:45)
[2017-11-24] MEDS: diphenhydrAMINE 50 MG/ML 1 ML VIAL IVP PRN (07:50)
[2017-11-24 08:42] LABS: Basophils % (A) 0 %; Eosinophils % (A) 0 %; HCT 42.2 % (34.0-46.0); HGB 13.5 gm/dL (11.4-16.0); Lymphocytes # (A) 1.1 k/uL (1.0-4.8); Lymphocytes % (A) 7 %; MCH 28.7 pg (25.0-35.0); MCV 89.6 fL (80.0-100.0); Mean Platelet Volume 6.6; Monocytes # (A) 0.6 k/uL (0-1.0); Monocytes % (A) 4 %; Neutrophils # (A) 14.4 k/uL (1.3-7.7); Neutrophils % (A) 89 %; Platelet Count 216 k/uL (150-450); RBC 4.71 m/uL (3.80-5.40); RDW 13.6 % (11.5-15.5); WBC 16.3 k/uL (3.8-10.6)
[2017-11-24 08:58] LABS: Anion Gap 10 mmol/L; Blood Urea Nitrogen 15 mg/dL (7-17); Calcium 8.3 mg/dL (8.4-10.2); Carbon Dioxide 21 mmol/L (22-30); Chloride 109 mmol/L (98-107); Glucose 198 mg/dL (74-99); Potassium 4.3 mmol/L (3.5-5.1); Sodium 140 mmol/L (137-145)
[2017-11-24] MEDS ORDERED: HYDROmorphone 2 MG TAB PO STA (10:47)
[2017-11-24] MEDS: ALPRAZolam 0.5 MG TAB PO PRN (10:58)
[2017-11-24] MEDS: PROMETHAZINE 6.25MG/5ML 147.5 MG/118 ML BOTTLE PO PRN (11:08)
[2017-11-24 11:59] LABS: Glucose,Whole Blood 184 mg/dL (75-99)
--- NOTE | 2017-11-24 14:00 | P.PN ---
Subjective Progress Note Date: 11/24/17 Principal diagnosis: Exacerbation of chronic obstructive pulmonary disease. This 47-year-old female patient is known to have COPD and she is a chronic smoker. The patient was in the hospital back in 11/04/2017 admitted for an acute COPD exacerbation. During the course of treatment the patient continued to be short of breath and bronchospastic and wheezy. Ultimately she underwent a bronchoscopy and the bronchioloalveolar lavage showed a combination of MRSA, Enterococcus faecalis and strep species. Noted the patient was discharged home on Bactrim and the patient was feeling significantly better. She finished a total of 10-14 day course of Bactrim on outpatient basis. However her condition was getting worse and she was having vigorous cough and congestion wheezing and she had skeletal pain and discomfort along the right chest area. For that reason the patient so Dr. Noyola yesterday in the office and she was asked to come into the hospital for further evaluation. In the emergency department the patient was started on vancomycin. Chest x-ray showed no acute abnormalities. She is currently requiring morphine 4 mg every 4 hours for pain control. She is also on Phenergan for cough suppression. She states that she hasn't smoked since her discharge from the hospital. No angina. No pleurisy. No swelling lower extremities. She is obese and she has some cushingoid features related to chronic steroid use. She is on long-term articulation with warfarin regarding previous history of pulmonary embolism and the patient's INR is at 3.4. No significant leukocytosis. Her repeat chest x-ray again showed chronic interstitial prominence which was seen on previous chest x-ray and CAT scan findings. The patient is seen again today 11/24/2017 in follow-up on the regular medical floor. She is awake and alert in no acute distress. She is somewhat frustrated as she has been slow to progress. Still somewhat bronchospastic and wheezing. Still dyspneic on minimal exertion. CAT scan of the chest reveals moderate underlying emphysematous change with scattered bleb and small cystic changes seen bilaterally. There is peripheral reticulation and groundglass opacities scattered bilaterally most prominent in the upper lobes. No pleural effusions or or pneumothorax seen. No significant bronchiectasis noted. Blood culture reveals no growth to date. Sputum cultures pending. She remains on vancomycin. She's been afebrile. White count 16.3. Creatinine 0.63. Objective - Vital Signs Vital signs: Vital Signs Temp 96.9 F L 11/24/17 06:43 Pulse 82 11/24/17 11:54 Resp 20 11/24/17 06:43 BP 98/60 11/24/17 06:43 Pulse Ox 90 L 11/24/17 06:43 Intake & Output 11/23/17 11/24/17 11/24/17 18:59 06:59 18:59 Intake Total 400 Balance 400 Intake: Oral 400 Other: # Voids 3 1 - Constitutional General appearance: Present: mild distress, morbidly obese - EENT Eyes: Present: EOMI, PERRLA ENT: Present: hearing grossly normal Ears: bilateral: normal - Neck Neck: Present: normal ROM Carotids: bilateral: upstroke normal Thyroid: bilateral: normal size - Respiratory Respiratory: bilateral: rhonchi, wheezing - Cardiovascular Rhythm: regular Heart sounds: normal: S1, S2 - Gastrointestinal General gastrointestinal: Present: normal bowel sounds - Integumentary Integumentary: Present: normal turgor - Neurologic Neurologic: Present: CNII-XII intact - Musculoskeletal Musculoskeletal: Present: gait normal - Psychiatric Psychiatric: Present: A&O x's 3, appropriate affect, intact judgment & insight - Labs CBC & Chem 7: 11/24/17 08:06 11/24/17 08:06 Labs: Abnormal Lab Results - Last 24 Hours (Table) 11/23/17 11/23/17 11/24/17 Range/Units 16:57 20:58 07:10 WBC (3.8-10.6) k/uL Neutrophils # (1.3-7.7) k/uL Chloride (98-107) mmol/L Carbon Dioxide (22-30) mmol/L Glucose (74-99) mg/dL POC Glucose (mg/dL) 148 H 164 H 183 H (75-99) mg/dL Calcium (8.4-10.2) mg/dL 11/24/17 11/24/17 11/24/17 Range/Units 08:06 08:06 11:56 WBC 16.3 H (3.8-10.6) k/uL Neutrophils # 14.4 H (1.3-7.7) k/uL Chloride 109 H (98-107) mmol/L Carbon Dioxide 21 L (22-30) mmol/L Glucose 198 H (74-99) mg/dL POC Glucose (mg/dL) 184 H (75-99) mg/dL Calcium 8.3 L (8.4-10.2) mg/dL Microbiology - Last 24 Hours (Table) 11/22/17 17:35 Blood Culture - Preliminary Blood No Growth after 24 hours Assessment and Plan Assessment: #1. Acute COPD exacerbation with secondary shortness of breath. The patient was in the hospital approximately 3 weeks ago treated for an acute COPD exacerbation a bronchoscopy back then showed a combination of MRSA, Enterococcus faecalis and strep. Obviously MRSA has been there the past on cultures and previous bronchoscopies. The patient took Bactrim on outpatient basis and she's coming in with similar symptoms of COPD exacerbation, and failed to recover on outpatient basis. Computed tomography scan of the chest revealed moderate underlying emphysematous change with scattered bleb and small cystic changes seen bilaterally. Ears peripheral reticulation and groundglass opacities scattered bilaterally most prominent in the upper lobes. #2. Musculoskeletal right-sided chest wall pain secondary to cough. Chest x- ray shows increased interstitial markings probably related to a previous sarcoidosis. #3. Chronic hypoxic respiratory failure secondary to above #4. Sarcoidosis, confirmed by lung biopsy at [facility] 2014, treated with systemic steroids that was ultimately weaned off and discontinued #5. History of pulmonary embolisms in 2011, 2016, DVTs, currently on anticoagulation with Coumadin, with therapeutic PT/INR #6. Nicotine addiction, ongoing, currently down to 2 cigarettes per day, carries over [id number] smoking history #7. Obesity with features of obstructive sleep apnea #8. Anxiety #9. CAD, history of myocardial infarction #10. Recurrent hospitalizations for respiratory complications #11. Bipolar disorder #12. Degenerative disc disease #13. Hypertension #14. Hyperlipidemia #15. Fibromyalgia Plan: The patient was seen and evaluated by Dr. Hicks. CAT scan was reviewed. She is slow to progress. We'll continue with her current medications. She is currently on vancomycin. Sputum culture is pending. Blood culture reveals no growth to date. Appreciate ID input. We will continue to follow and make further recommendations based on her clinical status. I, the cosigning physician, performed a history & physical examination of the patient. Lungs sounds with bilateral wheezing, scattered rhonchi. Maintaining good O2 saturations in the 90s on 2 L/m per nasal cannula. I discussed the assessment and plan of care with my nurse practitioner, Nicki Roper. I attest to the above note as dictated by her.
--- NOTE | 2017-11-24 14:25 | P.PN ---
Subjective Progress Note Date: 11/24/17 Principal diagnosis: Acute COPD exacerbation Ms. Estrada is a 47-year-old female with a past medical history of COPD, DVT, hyperlipidemia, hypertension, thyroid disorder admitted to the hospital with a chief complaint of difficulty in breathing. Patient had a recent hospital stay for acute COPD exacerbation and had bronchoscopy done and the bronchioloalveolar lower arch showing MRSA, E faecalis, candiduria, strep species. Patient was discharged home on Bactrim her symptoms subsided for couple of days but she is coming back again with cough and difficulty in breathing. She is currently on vancomycin and fluconazole. Today the patient is lying in bed appears to be in mild discomfort due to right- sided chest wall pain. Patient states that she has been coughing all night and started to experience the chest wall pain. Her difficulty in breathing is at baseline, as well as her cough. On review of systems: She denies having any fever chills or rigors. No palpitations. No abdominal pain nausea vomiting or diarrhea. No dysuria or hematuria. Objective - Vital Signs Vital signs: Vital Signs Temp 96.9 F L 11/24/17 06:43 Pulse 82 11/24/17 11:54 Resp 20 11/24/17 06:43 BP 98/60 11/24/17 06:43 Pulse Ox 90 L 11/24/17 06:43 Intake & Output 11/23/17 11/24/17 11/24/17 18:59 06:59 18:59 Intake Total 400 Balance 400 Intake: Oral 400 Other: # Voids 3 1 - Exam GENERAL: sitting up in bed, no acute distress HEENT: Conjunctivae normal. eyes normal. oral mucosa moist NECK: No JVD. No thyroid enlargement. No LNs CARDIOVASCULAR: S1, S2 muffled. No murmur Chest wall-positive for tenderness on palpation of the right side of the chest wall RESPIRATION: Breath sounds diminished in the bases. No rhonchi or crackles.occasionalfine expiratory wheezing ABDOMEN: Soft, nontender . No guarding. no masses palpable.Bowel sounds heard. LEGS: No edema. no swelling PSYCHIATRY: Alert and oriented -3, mood and affect normal. NERVOUS SYSTEM: Cranial N 2-12 grossly normal. Moves all 4 limbs. Diffuse weakness No focal deficits. Skin: no rash - Labs CBC & Chem 7: 11/24/17 08:06 08/25/18 08:06 Labs: Abnormal Lab Results - Last 24 Hours (Table) 11/23/17 11/23/17 11/24/17 Range/Units 16:57 20:58 07:10 WBC (3.8-10.6) k/uL Neutrophils # (1.3-7.7) k/uL Chloride (98-107) mmol/L Carbon Dioxide (22-30) mmol/L Glucose (74-99) mg/dL POC Glucose (mg/dL) 148 H 164 H 183 H (75-99) mg/dL Calcium (8.4-10.2) mg/dL 11/24/17 11/24/17 11/24/17 Range/Units 08:06 08:06 11:56 WBC 16.3 H (3.8-10.6) k/uL Neutrophils # 14.4 H (1.3-7.7) k/uL Chloride 109 H (98-107) mmol/L Carbon Dioxide 21 L (22-30) mmol/L Glucose 198 H (74-99) mg/dL POC Glucose (mg/dL) 184 H (75-99) mg/dL Calcium 8.3 L (8.4-10.2) mg/dL Microbiology - Last 24 Hours (Table) 11/22/17 17:35 Blood Culture - Preliminary Blood No Growth after 24 hours Assessment and Plan Assessment: Assessment: 1. Acute COPD exacerbation, bronchial asthma acute exacerbation 2. Recent bronchoscopy cultures reporting MRSA, Lou albicans, alphahemolytic streptococcus and Enterococcus Faecalis 3. Recent metabolic encephalopathy ,possibly medication induced 4. History of MRSA Staphylococcus aureus bronchopneumonia 5. History of CHF 6. Hypertension 7. History of PE 8. Anxiety 9. Bipolar depression 10. Panic disorder Plan: Continue on current medication regime ,monitoring and symptomatic treatment. Maintain broad-spectrum IV antibiotics- vancomycin, fluconazole for Lou albicans and nebulized bronchodilators. High-resolution CT of the chest revealed moderate underlying emphysematous change with scattered bleb and small cystic changes seen bilaterally. Groundglass opacities scattered bilaterally most prominent in the upper lobes. Follow closely with both pulmonary and infectious disease.Prognosis is guarded given multiple complex medical issues. I just got called from the nurse stating that the patient wants that her care to be transferred to another team as her pain issues are not being addressed. We will contact Dr. Harrell to see if he is willing to accept the patient.
[2017-11-24 15:28] VITALS: BP 129/76; RESP 17; TEMP 98
[2017-11-24 15:50] VITALS: PULSE 80
[2017-11-25] MEDS ORDERED: VANCOMYCIN TROUGH DUE 1 EACH MISC MISCELLANE ONE (07:00)
== END 2017-11-24 17:20 | disposition left against medical advice (07) | DRG 191 ==
LOC: EC 16:38 → 4MS4W 18:46
PROVIDERS: ADMIT Internal Medicine; ATTEND Internal Medicine
DX: J44.1 Chronic obstructive pulmonary disease with (acute) exacerbation (principal); J96.11 Chronic respiratory failure with hypoxia; E24.2 Drug-induced Cushing's syndrome; J45.901 Unspecified asthma with (acute) exacerbation; B95.2 Enterococcus as the cause of diseases classified elsewhere; B95.4 Other streptococcus as the cause of diseases classified elsewhere; B95.62 Methicillin resistant Staphylococcus aureus infection as the cause of diseases classified elsewhere; M19.90 Unspecified osteoarthritis, unspecified site; I10 Essential (primary) hypertension; E78.5 Hyperlipidemia, unspecified; E66.9 Obesity, unspecified; E03.9 Hypothyroidism, unspecified; F31.9 Bipolar disorder, unspecified; F41.9 Anxiety disorder, unspecified; D86.9 Sarcoidosis, unspecified; T38.0X5A Adverse effect of glucocorticoids and synthetic analogues, initial encounter; F41.0 Panic disorder [episodic paroxysmal anxiety]; G47.33 Obstructive sleep apnea (adult) (pediatric); I11.0 Hypertensive heart disease with heart failure; I25.10 Atherosclerotic heart disease of native coronary artery without angina pectoris; I50.9 Heart failure, unspecified; B37.9 Candidiasis, unspecified; J84.10 Pulmonary fibrosis, unspecified; M79.7 Fibromyalgia; R07.89 Other chest pain; Z99.81 Dependence on supplemental oxygen; Z68.37 Body mass index [BMI] 37.0-37.9, adult; I25.2 Old myocardial infarction; Z86.718 Personal history of other venous thrombosis and embolism; Z86.711 Personal history of pulmonary embolism; Z87.891 Personal history of nicotine dependence; Z79.01 Long term (current) use of anticoagulants; Z79.52 Long term (current) use of systemic steroids; Z79.899 Other long term (current) drug therapy; Z82.3 Family history of stroke; Z82.49 Family history of ischemic heart disease and other diseases of the circulatory system; Z83.3 Family history of diabetes mellitus; Z86.14 Personal history of Methicillin resistant Staphylococcus aureus infection; Z86.61 Personal history of infections of the central nervous system; Z88.5 Allergy status to narcotic agent; Z88.8 Allergy status to other drugs, medicaments and biological substances; Z88.1 Allergy status to other antibiotic agents; Z91.041 Radiographic dye allergy status; Z90.49 Acquired absence of other specified parts of digestive tract; Z91.19 Patient's noncompliance with other medical treatment and regimen
CPT/HCPCS: 36415; 71046; 71250; 80048; 80053; 82550; 82553; 83036; 83735; 84484; 85025; 85610; 85730; 87040; 87086; 93005; 94640; 96365; 96368; 96375; 99285

== ENCOUNTER 2017-11-25 22:20 | Inpatient (IN) | payer OTHER ==
[2017-11-25] MEDS ORDERED: SODIUM CHLORIDE 0.9% 1,000 ML IV STA (22:35)
[2017-11-25] MEDS ORDERED: MAGNESIUM SULFATE-D5W PMX 1 GM in DEXTROSE/WATER 1 100ML.BAG IVPB STA (22:35)
[2017-11-25] MEDS ORDERED: methylPREDNISolone SOD SUCCI 125 MG/2 ML VIAL IV STA (22:35)
[2017-11-25] MEDS ORDERED: diphenhydrAMINE 50 MG/ML 1 ML VIAL IVP STA (22:58)
[2017-11-25] MEDS ORDERED: HYDROmorphone 1 MG/ML 1 ML SYRINGE IVP STA (22:58)
[2017-11-25 23:10] LABS: Basophils % (A) 0 %; Eosinophils # (A) 0.1 k/uL (0-0.7); Eosinophils % (A) 1 %; HCT 41.2 % (34.0-46.0); Lymphocytes # (A) 2.8 k/uL (1.0-4.8); Lymphocytes % (A) 20 %; MCH 29.4 pg (25.0-35.0); MCV 86.4 fL (80.0-100.0); Mean Platelet Volume 6.8; Monocytes # (A) 0.9 k/uL (0-1.0); Monocytes % (A) 7 %; Neutrophils # (A) 9.5 k/uL (1.3-7.7); Neutrophils % (A) 71 %; Platelet Count 222 k/uL (150-450); RBC 4.76 m/uL (3.80-5.40); RDW 13.4 % (11.5-15.5); WBC 13.5 k/uL (3.8-10.6)
[2017-11-25 23:20] LABS: INR 1.4 (<1.2); Partial Thromboplastin Time 24.2 sec (22.0-30.0); Prothrombin Time 12.8 sec (9.0-12.0)
[2017-11-25 23:25] LABS: ALT 54 U/L (9-52); AST 55 U/L (14-36); Albumin 3.7 g/dL (3.5-5.0); Alkaline Phosphatase 95 U/L (38-126); Anion Gap 11 mmol/L; Blood Urea Nitrogen 14 mg/dL (7-17); Calcium 7.8 mg/dL (8.4-10.2); Carbon Dioxide 26 mmol/L (22-30); Chloride 98 mmol/L (98-107); Glucose 127 mg/dL (74-99); Magnesium 1.5 mg/dL (1.6-2.3); Sodium 135 mmol/L (137-145); Total Bilirubin 0.7 mg/dL (0.2-1.3); Total Protein 6.5 g/dL (6.3-8.2)
[2017-11-25 23:35] LABS: Creatine Kinase 36 U/L (30-135); Potassium 2.9 mmol/L (3.5-5.1)
--- NOTE | 2017-11-25 23:36 | XR ---
EXAMINATION TYPE: XR chest 2V DATE OF EXAM: 11/25/2017 COMPARISON: 11/23/2017 HISTORY: Difficulty breathing and cough TECHNIQUE: Frontal and lateral views of the chest are obtained. FINDINGS: There is diffuse pulmonary interstitial edema. Heart size is normal. Pulmonary vascularity is difficult to evaluate because of the lung disease. Bony thorax is intact. There are chest leads IMPRESSION: Interstitial pulmonary edema. This appears worse than last exam. This could be pulmonary interstitial fibrosis. I see no pleural fluid to suggest heart failure.
[2017-11-25 23:48] LABS: Creatine Kinase MB 0.6 ng/mL (0.0-2.4); Troponin I <0.012 ng/mL (0.000-0.034)
[2017-11-25] MEDS ORDERED: POTASSIUM CHLORIDE 20 MEQ in WATER FOR INJECTION 1 100ML.BAG IVPB STA (23:50)
[2017-11-25] MEDS ORDERED: POTASSIUM CHLORIDE ER 20 MEQ TAB.ER PO STA (23:50)
--- NOTE | 2017-11-26 00:09 | ED ---
SOB HPI - General Chief Complaint: Shortness of Breath Stated Complaint: SOB Time Seen by Provider: 11/25/17 22:30 Source: patient, family, RN notes reviewed, old records reviewed Mode of arrival: wheelchair Limitations: no limitations - History of Present Illness Initial Comments: This is a 47-year-old female history of chronic fibrosis who is brought in tonight by her with complaints of shortness of breath fevers chills sweats cough with greenish dark phlegm also some sharp anterior chest pain he gets worse with deep breathing and movements. She was just discharged yesterday from the hospital she states she has MRSA that she is being treated for with Bactrim. No other complaints at this time. MD Complaint: shortness of breath, cough, chest pain - Related Data Home Medications Medication Instructions Recorded Confirmed lamoTRIgine [LaMICtal] 200 mg PO DAILY 03/22/16 11/25/17 Bumetanide 4 mg PO QAM 10/18/16 11/25/17 Butalb/APAP/Caff 50-325-40Mg 1 tab PO Q4H PRN 10/18/16 11/25/17 [Fioricet 50-325-40] Ondansetron HCl [Zofran] 4 mg PO BID PRN 10/18/16 11/25/17 Mirtazapine [Remeron] 45 mg PO HS 04/10/17 11/25/17 ALPRAZolam [Xanax] 0.5 mg PO TID PRN 06/06/17 11/25/17 Bumetanide [BUMEX] 2 mg PO DAILY@1200 09/16/17 11/25/17 Pregabalin [Lyrica] 150 mg PO BID 09/16/17 11/25/17 busPIRone HCL [Buspar] 30 mg PO BID 09/16/17 11/25/17 Baclofen [Lioresal] 20 mg PO Q8H PRN 10/09/17 11/25/17 Morphine Sulfate ER [Ms Contin] 30 mg PO Q8H PRN 11/03/17 11/25/17 Nystatin 100,000 Unit/gm Powd 1 applic TOPICAL BID 11/04/17 11/25/17 [Mycostatin Powder] Promethazine/Dextromethorphan 5 ml PO Q6H PRN 11/04/17 11/25/17 [Promethazine-Dm Solution] Ibuprofen [Advil] 800 mg PO Q8HR PRN 11/22/17 11/25/17 Previous Rx's Medication Instructions Recorded FLUoxetine HCL [PROzac] 20 mg PO DAILY #30 capsule 08/20/15 Metoprolol Tartrate [Lopressor] 50 mg PO BID #60 tab 08/20/15 Docusate [Colace] 100 mg PO BID PRN #60 cap 11/10/17 Ipratropium-Albuterol Nebulize 3 ml INHALATION RT-QID #120 11/10/17 [Duoneb 0.5 mg-3 mg/3 ml Soln] ampul.neb Potassium Chloride ER [K-Dur 20] 20 meq PO DAILY #30 tab.er.prt 11/10/17 guaiFENesin [Mucinex] 1,200 mg PO Q12HR #40 tablet.er 11/10/17 Fluconazole 200 mg PO DAILY #14 tab 11/13/17 Sulfamethox-Tmp 800-160Mg [Bactrim 1 tab PO Q12HR #28 tab 11/13/17 DS 800-160 mg] Allergies Allergy/AdvReac Type Severity Reaction Status Date / Time ketorolac tromethamine Allergy Severe Anaphylaxis Verified 11/25/17 23:40 [From Toradol] Opioids - Morphine Analogues Allergy Mild Itching Verified 11/25/17 23:40 Iodinated Contrast- Oral and Allergy Unknown Verified 11/25/17 23:40 IV Dye rivaroxaban [From Xarelto] Allergy Rash/Hives Verified 11/25/17 23:40 sumatriptan [From Imitrex] Allergy Anaphylaxis Verified 11/25/17 23:40 sumatriptan succinate Allergy Anaphylaxis Verified 11/25/17 23:40 [From Imitrex] morphine AdvReac Severe Itching Verified 11/25/17 23:40 iodine AdvReac Intermediate Itching Verified 11/25/17 23:40 tramadol AdvReac Anaphylaxis Verified 11/25/17 23:40 vancomycin AdvReac Itching Verified 11/25/17 23:40 Rich wipes AdvReac Severe Rash/Hives Uncoded 11/25/17 23:40 Review of Systems ROS Statement: Those systems with pertinent positive or pertinent negative responses have been documented in the HPI. ROS Other: All systems not noted in ROS Statement are negative. Past Medical History Past Medical History: Blood Disorder, Heart Failure, COPD, Deep Vein Thrombosis (DVT), Hyperlipidemia, Hypertension, Myocardial Infarction (MS), Musculoskeletal Disorder, Pneumonia, Pulmonary Embolus (PE), Thyroid Disorder Additional Past Medical History / Comment(s): PE 2012; Sarcoidosis diagnosed in 2015 following a bronchoscopy and lung biopsy done at [facility] and she was started on predniosone and she took the therapy for almost 1 year, polycythemia, overweight, bilateral PE (2011, 2015), bilateral DVTs, fibromyalgia, bipolar disorder, degenerative disk disorder, coronary artery disease along with previous history of a MS and ventilator dependent respiratory failure with MRSA pneumonia for which the patient was hospitalized [facility] in 2012. Viral meningitis in October 2014. Pulmonary fibrosis, home 02 3l n/c Last Myocardial Infarction Date:: February 15, 2013 History of Any Multi-Drug Resistant Organisms: MRSA Date of last positivie culture/infection: 11/09/17 MDRO Source:: PLEURAL FLUID Past Surgical History: Section, Cholecystectomy, Heart Catheterization , Hernia Repair, Orthopedic Surgery Additional Past Surgical History / Comment(s): Lt ankle surgery, several bronchosopy-most recently 11/09/17 Past Anesthesia/Blood Transfusion Reactions: Motion Sickness, Postoperative Nausea & Vomiting (PONV) Additional Past Anesthesia/Blood Transfusion Reaction / Comment(s): previously charted -pt stated that last April she coded due to anesthetic Past Psychological History: Anxiety, Bipolar, Depression, Panic Disorder Smoking Status: Never smoker Past Alcohol Use History: None Reported Past Drug Use History: None Reported - Past Family History Father Family Medical History: Blood Disorder, Congestive Heart Failure (CHF), CVA/TIA , Deep Vein Thrombosis (DVT), Myocardial Infarction (MS) Additional Family Medical History / Comment(s): polycythemia Mother Family Medical History: Congestive Heart Failure (CHF), Diabetes Mellitus, Deep Vein Thrombosis (DVT), Myocardial Infarction (MS), Musculoskeletal Disorder Additional Family Medical History / Comment(s): DDD Sister(s) Family Medical History: No Reported History Brother(s) Family Medical History: No Reported History Son(s) Family Medical History: No Reported History Daughter(s) Family Medical History: No Reported History General Exam - General Exam Comments Initial Comments: Physical well-developed well-nourished awake alert oriented 3 female who is in obvious respiratory distress Limitations: no limitations General appearance: alert, anxious, in distress Head exam: Present: atraumatic, normocephalic, normal inspection Eye exam: Present: normal appearance, PERRL, EOMI. Absent: scleral icterus, conjunctival injection, periorbital swelling ENT exam: Present: mucous membranes dry Neck exam: Present: normal inspection. Absent: tenderness, meningismus, lymphadenopathy Respiratory exam: Present: respiratory distress, chest wall tenderness, accessory muscle use, decreased breath sounds. Absent: wheezes, rales, rhonchi , stridor Cardiovascular Exam: Present: regular rate, normal rhythm, normal heart sounds. Absent: systolic murmur, diastolic murmur, rubs, gallop, clicks GI/Abdominal exam: Present: soft, normal bowel sounds. Absent: distended, tenderness, guarding, rebound, rigid Extremities exam: Present: normal inspection, full ROM, normal capillary refill. Absent: tenderness, pedal edema, joint swelling, calf tenderness Back exam: Present: normal inspection Neurological exam: Present: alert, oriented X3, CN II-XII intact Psychiatric exam: Present: normal affect, anxious Skin exam: Present: warm, dry, intact, normal color. Absent: rash Course Vital Signs 11/25/17 11/25/17 11/26/17 22:22 23:38 00:03 Temperature 98.7 F Pulse Rate 99 94 95 Respiratory 30 H 26 H 26 H Rate Blood Pressure 123/73 133/63 134/73 O2 Sat by Pulse 85 L 92 L 92 L Oximetry 11/26/17 11/26/17 00:08 00:09 Temperature Pulse Rate Respiratory Rate Blood Pressure O2 Sat by Pulse 77 L 89 L Oximetry - Reevaluation(s) Reevaluation #1: 11/26/17 00:09 Reevaluation of the initial treatment reveals some improvement but patient still remains dyspneic. Reevaluation #2: 11/26/17 00:10 PT require supplementation of potassium and magnesium. Medical Decision Making - Medical Decision Making I did discuss findings with the patient and her . Patient will be admitted I did discuss case with Dr. Stanley. Dr. Hicks will be consulted. - Lab Data Result diagrams: 11/25/17 22:48 11/25/17 22:48 Lab Results 11/25/17 11/25/17 11/25/17 Range/Units 22:48 22:48 22:48 WBC 13.5 H (3.8-10.6) k/uL RBC 4.76 (3.80-5.40) m/uL Hgb 14.0 (11.4-16.0) gm/dL Hct 41.2 (34.0-46.0) % MCV 86.4 (80.0-100.0) fL MCH 29.4 (25.0-35.0) pg MCHC 34.0 (31.0-37.0) g/dL RDW 13.4 (11.5-15.5) % Plt Count 222 (150-450) k/uL Neutrophils % 71 % Lymphocytes % 20 % Monocytes % 7 % Eosinophils % 1 % Basophils % 0 % Neutrophils # 9.5 H (1.3-7.7) k/uL Lymphocytes # 2.8 (1.0-4.8) k/uL Monocytes # 0.9 (0-1.0) k/uL Eosinophils # 0.1 (0-0.7) k/uL Basophils # 0.0 (0-0.2) k/uL PT (9.0-12.0) sec INR (<1.2) APTT (22.0-30.0) sec Sodium 135 L (137-145) mmol/L Potassium 2.9 L* (3.5-5.1) mmol/L Chloride 98 (98-107) mmol/L Carbon Dioxide 26 (22-30) mmol/L Anion Gap 11 mmol/L BUN 14 (7-17) mg/dL Creatinine 0.60 (0.52-1.04) mg/dL Est GFR (CKD-EPI)AfAm >90 (>60 ml/min/1.73 sqM) Est GFR (CKD-EPI)NonAf >90 (>60 ml/min/1.73 sqM) Glucose 127 H (74-99) mg/dL Calcium 7.8 L (8.4-10.2) mg/dL Magnesium 1.5 L (1.6-2.3) mg/dL Total Bilirubin 0.7 (0.2-1.3) mg/dL AST 55 H (14-36) U/L ALT 54 H (9-52) U/L Alkaline Phosphatase 95 (38-126) U/L Total Creatine Kinase 36 (30-135) U/L CK-MB (CK-2) 0.6 (0.0-2.4) ng/mL CK-MB (CK-2) Rel Index 1.7 Troponin I <0.012 (0.000-0.034) ng/mL NT-Pro-B Natriuret Pep pg/mL Total Protein 6.5 (6.3-8.2) g/dL Albumin 3.7 (3.5-5.0) g/dL 11/25/17 11/25/17 Range/Units 22:48 22:48 WBC (3.8-10.6) k/uL RBC (3.80-5.40) m/uL Hgb (11.4-16.0) gm/dL Hct (34.0-46.0) % MCV (80.0-100.0) fL MCH (25.0-35.0) pg MCHC (31.0-37.0) g/dL RDW (11.5-15.5) % Plt Count (150-450) k/uL Neutrophils % % Lymphocytes % % Monocytes % % Eosinophils % % Basophils % % Neutrophils # (1.3-7.7) k/uL Lymphocytes # (1.0-4.8) k/uL Monocytes # (0-1.0) k/uL Eosinophils # (0-0.7) k/uL Basophils # (0-0.2) k/uL PT 12.8 H (9.0-12.0) sec INR 1.4 H (<1.2) APTT 24.2 (22.0-30.0) sec Sodium (137-145) mmol/L Potassium (3.5-5.1) mmol/L Chloride (98-107) mmol/L Carbon Dioxide (22-30) mmol/L Anion Gap mmol/L BUN (7-17) mg/dL Creatinine (0.52-1.04) mg/dL Est GFR (CKD-EPI)AfAm (>60 ml/min/1.73 sqM) Est GFR (CKD-EPI)NonAf (>60 ml/min/1.73 sqM) Glucose (74-99) mg/dL Calcium (8.4-10.2) mg/dL Magnesium (1.6-2.3) mg/dL Total Bilirubin (0.2-1.3) mg/dL AST (14-36) U/L ALT (9-52) U/L Alkaline Phosphatase (38-126) U/L Total Creatine Kinase (30-135) U/L CK-MB (CK-2) (0.0-2.4) ng/mL CK-MB (CK-2) Rel Index Troponin I (0.000-0.034) ng/mL NT-Pro-B Natriuret Pep 368 pg/mL Total Protein (6.3-8.2) g/dL Albumin (3.5-5.0) g/dL - EKG Data -: EKG Interpreted by [place] EKG shows normal: sinus rhythm (Sinus rhythm rate of 99 NM interval 132 QRS duration 66 QT since QTC 392/503 artifact present no acute ST-T wave changes some prolongation of the QT interval) - Radiology Data Radiology results: report reviewed (I did review the imaging is evidence of increased pulmonary interstitial markings.), image reviewed Critical Care Time Critical Care Time: Yes Critical Care Time: 37 minutes of critical care time which includes initial presentation with history physical labs x-rays. Several reevaluation patient response to therapy. Review of old charting. Discussed with the patient and her regarding findings discussion with the admitting physician admission orders and documentation of the above. Disposition Clinical Impression: Acute exacerbation of chronic bronchitis, MRSA pneumonia, Respiratory distress , Hypoxia, Failure of outpatient treatment, Hypomagnesemia, Hypokalemia Disposition: ADMITTED IP TO THIS HOSP Condition: Stable Referrals: Liz Koch MD [Primary Care Provider] - 1-2 days
[2017-11-26] MEDS ORDERED: DOCUSATE 100 MG CAP PO PRN (00:16)
[2017-11-26] MEDS ORDERED: IBUPROFEN 800 MG TAB PO PRN (00:16)
[2017-11-26] MEDS ORDERED: BACLOFEN 10 MG TAB PO PRN (00:16)
[2017-11-26] MEDS ORDERED: IPRATROPIUM-ALBUTEROL 3 ML NEB INHALATION PRN (01:04)
[2017-11-26] MEDS: ALPRAZolam 0.5 MG TAB PO PRN ×3 (01:17→19:05)
[2017-11-26] MEDS: MORPHINE SULFATE ER 30 MG TABLET PO PRN ×3 (02:01→19:05)
[2017-11-26] MEDS ORDERED: IPRATROPIUM-ALBUTEROL 3 ML NEB INHALATION SCH (04:00)
[2017-11-26] MEDS: SODIUM CHLORIDE 0.9% 1,000 ML IV SCH ×2 (05:54→11:41)
[2017-11-26] MEDS: methylPREDNISolone SOD SUCCI 125 MG/2 ML VIAL IV SCH ×5 (05:57→23:57)
[2017-11-26] MEDS: IPRATROPIUM-ALBUTEROL 3 ML NEB INHALATION SCH ×4 (06:44→22:35)
[2017-11-26 07:37] LABS: Basophils % (A) 0 %; Eosinophils % (A) 0 %; HCT 43.3 % (34.0-46.0); HGB 13.8 gm/dL (11.4-16.0); Lymphocytes # (A) 0.9 k/uL (1.0-4.8); Lymphocytes % (A) 11 %; MCH 28.5 pg (25.0-35.0); MCHC 31.8 g/dL (31.0-37.0); MCV 89.5 fL (80.0-100.0); Mean Platelet Volume 6.6; Monocytes # (A) 0.3 k/uL (0-1.0); Monocytes % (A) 3 %; Neutrophils # (A) 6.9 k/uL (1.3-7.7); Neutrophils % (A) 85 %; Platelet Count 195 k/uL (150-450); RBC 4.84 m/uL (3.80-5.40); RDW 13.6 % (11.5-15.5); WBC 8.2 k/uL (3.8-10.6)
[2017-11-26 07:54] LABS: Anion Gap 10 mmol/L; Blood Urea Nitrogen 12 mg/dL (7-17); Calcium 8.1 mg/dL (8.4-10.2); Carbon Dioxide 25 mmol/L (22-30); Chloride 101 mmol/L (98-107); Glucose 225 mg/dL (74-99); Potassium 4.2 mmol/L (3.5-5.1); Sodium 136 mmol/L (137-145)
[2017-11-26 08:34] LABS: Glucose,Whole Blood 267 mg/dL (75-99)
[2017-11-26] MEDS: INSULIN ASPART 100 UNIT/ML 1 ML 10 ML VIAL SQ SCH ×4 (08:40→21:24)
[2017-11-26] MEDS: PREGABALIN 75 MG CAP PO SCH ×2 (08:40→21:25)
[2017-11-26] MEDS: FLUCONAZOLE 100 MG TAB PO SCH (08:41)
[2017-11-26] MEDS: busPIRone HCl 10 MG TAB PO SCH ×2 (08:41→21:24)
[2017-11-26] MEDS: METOPROLOL TARTRATE 50 MG TAB PO SCH ×2 (08:41→21:25)
[2017-11-26] MEDS: BUMETANIDE 1 MG TAB PO SCH ×2 (08:41→13:45)
[2017-11-26] MEDS: POTASSIUM CHLORIDE ER 20 MEQ TAB.ER PO SCH (08:42)
[2017-11-26] MEDS: FLUoxetine HCL 20 MG CAP PO SCH (08:42)
[2017-11-26] MEDS: guaiFENesin 600 MG TABLET.ER PO SCH ×2 (08:42→21:24)
[2017-11-26] MEDS ORDERED: PROMETHAZINE 6.25MG/5ML 147.5 MG/118 ML BOTTLE PO PRN (09:00)
[2017-11-26] MEDS ORDERED: SULFAMETHOX-TMP 800-160MG 1 EACH TAB PO SCH (09:00)
[2017-11-26] MEDS: lamoTRIgine 100 MG TAB PO SCH (09:03)
[2017-11-26] MEDS: NYSTATIN 100,000 UNIT/GM POWD 15 GM TOPICAL SCH ×2 (10:51→21:25)
[2017-11-26] MEDS ORDERED: PROMETHAZINE HCL 6.25 MG/5 ML CUP PO PRN (11:11)
[2017-11-26 11:18] LABS: Glucose,Whole Blood 217 mg/dL (75-99)
[2017-11-26] MEDS ORDERED: BUMETANIDE 1 MG TAB PO SCH (12:00)
[2017-11-26] MEDS ORDERED: VANCOMYCIN IV PER PHARMACY 1 EACH MISC MISCELLANE PRN (13:03)
[2017-11-26] MEDS ORDERED: MORPHINE SULFATE 4 MG/ML SYRINGE IVP STA (13:15)
--- NOTE | 2017-11-26 14:49 | P.CNPUL ---
History of Present Illness Consult date: 11/26/17 Requesting physician: Ulsyses Zepeda Reason for consult: COPD Chief complaint: Shortness of breath cough and wheezing History of present illness: This is a 47-year-old female with known history of COPD, chronic smoker, history of interstitial lung disease secondary to sarcoidosis which was supposedly biopsy-proven at [facility]. History of multiple admissions to the hospital with acute on chronic hypoxic respiratory failure secondary to COPD exacerbation and interstitial lung disease. History of MRSA infection, Enterococcus faecalis infection and strep species infections. Patient was recently admitted to the hospital, but she left AGAINST MEDICAL ADVICE, but she was readmitted again on Sunday when she presented back to the ER with cough wheezing shortness of breath. Apparently the patient was upset because she was not given in medications, and she was not receiving vancomycin as she requested. Patient was seen by Dr. Lott on consultation, and he did not feel the need for vancomycin, without any specific culture. From previous bronchoalveolar lavage, the patient had combinations of MRSA Enterococcus faecalis and strep species. But no bronchoalveolar lavage and bronchoscopy done on this admission. At any rate patient was seen on consultation by Dr. Hicks, and she was placed empirically on antibiotics, bronchodilators, steroids, and apparently she was not making much improvement. This time she was readmitted, her chest x-ray continues to show interstitial lung disease, seen by the hospitalist started the patient empirically on vancomycin. Labs on admission showed leukocytosis, WBC count of 13.5. Her potassium was low at 2.9. Otherwise the remaining labs were unremarkable. Patient had mostly cough wheezing shortness of breath, no documented fever, no chills, no hemoptysis, she does have some vague chest wall pain, no headaches or blurred vision dizziness, no nausea vomiting abdominal pain melena or hematemesis. No dysuria frequency or urgency. Review of Systems 14 point review of systems obtained, please refer to pertinent positives and negatives as per HPI. Past Medical History Past Medical History: Blood Disorder, Heart Failure, COPD, Deep Vein Thrombosis (DVT), Hyperlipidemia, Hypertension, Myocardial Infarction ([place]), Musculoskeletal Disorder, Pneumonia, Pulmonary Embolus (PE), Thyroid Disorder Additional Past Medical History / Comment(s): PE 2012; Sarcoidosis diagnosed in 2015 following a bronchoscopy and lung biopsy done at [facility] and she was started on predniosone and she took the therapy for almost 1 year, polycythemia, overweight, bilateral PE (2011, 2015), bilateral DVTs, fibromyalgia, bipolar disorder, degenerative disk disorder, coronary artery disease along with previous history of a [place] and ventilator dependent respiratory failure with MRSA pneumonia for which the patient was hospitalized [facility] in 2012. Viral meningitis in October 2014. Pulmonary fibrosis, home 02 3l n/c Last Myocardial Infarction Date:: February 15, 2013 History of Any Multi-Drug Resistant Organisms: MRSA Date of last positivie culture/infection: 11/09/17 MDRO Source:: PLEURAL FLUID Past Surgical History: Section, Cholecystectomy, Heart Catheterization , Hernia Repair, Orthopedic Surgery Additional Past Surgical History / Comment(s): Lt ankle surgery, several bronchosopy-most recently 11/09/17 Past Anesthesia/Blood Transfusion Reactions: Motion Sickness, Postoperative Nausea & Vomiting (PONV) Additional Past Anesthesia/Blood Transfusion Reaction / Comment(s): previously charted -pt stated that last April she coded due to anesthetic Past Psychological History: Anxiety, Bipolar, Depression, Panic Disorder Additional Psychological History / Comment(s): and lives in the family home with her . No recent travel. No experience Smoking Status: Never smoker Past Alcohol Use History: None Reported Additional Past Alcohol Use History / Comment(s): patient lives with her significant other. last admit 11-03-17 pt was smoking 1ppd- pt's faincee stated she continues to smoked but he's not pedrito=re how much and it depends on how stressed she gets". denies alcohol use or recreational drug use. Patient is currently not working. No service. No recent travel. No animal exposures. She did leave the hospital AMA in March 2017. Difficulties with ongoing medical noncompliance. Patient quit smoking 3 weeks ago. There is a dog in the home. Past Drug Use History: None Reported - Past Family History Father Family Medical History: Blood Disorder, Congestive Heart Failure (CHF), CVA/TIA , Deep Vein Thrombosis (DVT), Myocardial Infarction ([place]) Additional Family Medical History / Comment(s): polycythemia Mother Family Medical History: Congestive Heart Failure (CHF), Diabetes Mellitus, Deep Vein Thrombosis (DVT), Myocardial Infarction ([place]), Musculoskeletal Disorder Additional Family Medical History / Comment(s): DDD Sister(s) Family Medical History: No Reported History Brother(s) Family Medical History: No Reported History Son(s) Family Medical History: No Reported History Daughter(s) Family Medical History: No Reported History Medications and Allergies Home Medications Medication Instructions Recorded Confirmed Type FLUoxetine HCL [PROzac] 20 mg PO DAILY #30 capsule 08/20/15 11/26/17 Rx Metoprolol Tartrate [Lopressor] 50 mg PO BID #60 tab 08/20/15 11/26/17 Rx lamoTRIgine [LaMICtal] 200 mg PO DAILY 03/22/16 11/26/17 History Bumetanide 4 mg PO QAM 10/18/16 11/26/17 History Butalb/APAP/Caff 50-325-40Mg 1 tab PO Q4H PRN 10/18/16 11/26/17 History [Fioricet 50-325-40] Ondansetron HCl [Zofran] 4 mg PO BID PRN 10/18/16 11/26/17 History Mirtazapine [Remeron] 45 mg PO HS 04/10/17 11/26/17 History ALPRAZolam [Xanax] 0.5 mg PO TID PRN 06/06/17 11/26/17 History Bumetanide [BUMEX] 2 mg PO DAILY@1200 09/16/17 11/26/17 History Pregabalin [Lyrica] 150 mg PO BID 09/16/17 11/26/17 History busPIRone HCL [Buspar] 30 mg PO BID 09/16/17 11/26/17 History Baclofen [Lioresal] 20 mg PO Q8H PRN 10/09/17 11/26/17 History Morphine Sulfate ER [Ms Contin] 30 mg PO Q8H PRN 11/03/17 11/26/17 History Nystatin 100,000 Unit/gm Powd 1 applic TOPICAL BID 11/04/17 11/26/17 History [Mycostatin Powder] Promethazine/Dextromethorphan 5 ml PO Q6H PRN 11/04/17 11/26/17 History [Promethazine-Dm Solution] Docusate [Colace] 100 mg PO BID PRN #60 cap 11/10/17 11/26/17 Rx Ipratropium-Albuterol Nebulize 3 ml INHALATION RT-QID #120 11/10/17 11/26/17 Rx [Duoneb 0.5 mg-3 mg/3 ml Soln] ampul.neb Potassium Chloride ER [K-Dur 20] 20 meq PO DAILY #30 tab.er.prt 11/10/17 Rx guaiFENesin [Mucinex] 1,200 mg PO Q12HR #40 tablet.er 11/10/17 11/26/17 Rx Fluconazole 200 mg PO DAILY #14 tab 11/13/17 11/26/17 Rx Sulfamethox-Tmp 800-160Mg [Bactrim 1 tab PO Q12HR #28 tab 11/13/17 11/26/17 Rx DS 800-160 mg] Ibuprofen [Advil] 800 mg PO Q8HR PRN 11/22/17 11/26/17 History Allergies Allergy/AdvReac Type Severity Reaction Status Date / Time ketorolac tromethamine Allergy Severe Anaphylaxis Verified 11/26/17 08:44 [From Toradol] Opioids - Morphine Analogues Allergy Mild Itching Verified 11/26/17 08:44 Iodinated Contrast- Oral and Allergy Unknown Verified 11/26/17 08:44 IV Dye rivaroxaban [From Xarelto] Allergy Rash/Hives Verified 11/26/17 08:44 sumatriptan [From Imitrex] Allergy Anaphylaxis Verified 11/26/17 08:44 sumatriptan succinate Allergy Anaphylaxis Verified 11/26/17 08:44 [From Imitrex] morphine AdvReac Severe Itching Verified 11/26/17 08:44 iodine AdvReac Intermediate Itching Verified 11/26/17 08:44 tramadol AdvReac Anaphylaxis Verified 11/26/17 08:44 vancomycin AdvReac Itching Verified 11/26/17 08:44 Rich wipes AdvReac Severe Rash/Hives Uncoded 11/25/17 23:40 Physical Exam Vitals: Vital Signs Temp Pulse Pulse Resp BP BP Pulse Ox 11/26/17 11:22 84 11/26/17 11:06 83 11/26/17 07:00 96.3 F L 88 84 20 116/78 91 L 11/26/17 06:44 84 11/26/17 01:47 92 L 11/26/17 01:22 99.8 F H 94 20 145/88 94 L 11/26/17 00:46 99.0 F 94 26 H 145/84 92 L 11/26/17 00:43 92 L 11/26/17 00:09 89 L 11/26/17 00:08 77 L 11/26/17 00:03 95 26 H 134/73 92 L 11/25/17 23:38 94 26 H 133/63 92 L 11/25/17 22:22 98.7 F 99 30 H 123/73 85 L Intake and Output 11/25/17 11/26/17 11/26/17 22:59 06:59 14:59 Intake Total 1400 Balance 1400 Intake: Intake, IV Titration 800 Amount Sodium Chloride 0.9% 1, 800 000 ml @ 100 mls/hr IV . Q10H [facility] Rx#:[id number] Oral 600 Other: Voiding Method Toilet Toilet # Voids 2 Weight 105.233 kg 105.21 kg Physical Exam: Revealed a 47-year-old female, obese, in mild respiratory distress. Noted to be dyspneic with any activity. Head: Atraumatic, cushingoid, normocephalic. HEENT:[Neck is supple.] [No neck masses.] [No thyromegaly.] [No JVD.] Chest: [Symmetrical chest expansion, diffuse rhonchi and wheezes bilaterally..] Cardiac Exam: [Distant S1 and S2, no S3 gallop, no murmur.] Abdomen: Obese, [Soft, nontender, no megaly, no rebound, no guarding, normal bowel sounds.] Extremities: [No clubbing, no edema, no cyanosis.] Neurological Exam: [No focal neurologic deficit.] Lymphatics: No lymphadenopathy. Psychiatric: Normal mood affect and mental status examination. Results - Laboratory Findings CBC and BMP: 11/26/17 07:04 11/26/17 07:04 PT/INR, D-dimer PT 12.8 sec (9.0-12.0) H 11/25/17 22:48 INR 1.4 (<1.2) H 11/25/17 22:48 Abnormal lab findings: Abnormal Labs 11/25/17 11/25/17 11/25/17 22:48 22:48 22:48 WBC 13.5 H Neutrophils # 9.5 H Lymphocytes # PT 12.8 H INR 1.4 H Sodium 135 L Potassium 2.9 L* Glucose 127 H POC Glucose (mg/dL) Calcium 7.8 L Magnesium 1.5 L AST 55 H ALT 54 H 11/26/17 11/26/17 11/26/17 07:04 07:04 08:33 WBC Neutrophils # Lymphocytes # 0.9 L PT INR Sodium 136 L Potassium Glucose 225 H POC Glucose (mg/dL) 267 H Calcium 8.1 L Magnesium AST ALT 11/26/17 11:17 WBC Neutrophils # Lymphocytes # PT INR Sodium Potassium Glucose POC Glucose (mg/dL) 217 H Calcium Magnesium AST ALT - Diagnostic Findings Chest x-ray: image reviewed (As noted in HPI.) Assessment and Plan Assessment: #1. Acute COPD exacerbation with secondary shortness of breath. The patient was in the hospital approximately 3 weeks ago treated for an acute COPD exacerbation a bronchoscopy back then showed a combination of MRSA, Enterococcus faecalis and strep. Obviously MRSA has been there the past and cultures and please bronchoscopies. The patient took Bactrim on outpatient basis and she's coming in with similar symptoms of COPD exacerbation, and failed to recover on outpatient basis. #2. Musculoskeletal right-sided chest wall pain secondary to cough. Chest x- ray shows increased interstitial markings probably related to a previous sarcoidosis. #3. Chronic hypoxic respiratory failure secondary to above #4. Sarcoidosis, confirmed by lung biopsy at [facility] 2014, treated with systemic steroids that was ultimately weaned off and discontinued #5. History of pulmonary embolisms in 2011, 2016, DVTs, currently on anticoagulation with Coumadin, with therapeutic PT/INR #6. Nicotine addiction, ongoing, currently down to 2 cigarettes per day, carries over [id number] smoking history #7. Obesity with features of obstructive sleep apnea #8. Anxiety #9. CAD, history of myocardial infarction #10. Recurrent hospitalizations for respiratory complications #11. Bipolar disorder #12. Degenerative disc disease #13. Hypertension #14 hyperlipidemia #15 fibromyalgia Recommendation: Agree with the present treatment plan, patient will continue on antibiotics as per the admitting physician, added Pulmicort updrafts, Perforomist updrafts, continue DuoNeb, and switched to IV Solu-Medrol and set of oral prednisone 60 mg IV push every 6 hours. We'll continue to follow. Time with Patient: Greater than 30
--- NOTE | 2017-11-26 14:55 | P.HPIM ---
History of Present Illness Patient is a known patient to us, was admitted couple days ago for severe bronchitis with COPD exacerbation, left [facility] came back to the hospital because of severe hypoxemia requiring about the 12th 50 L of oxygen. Patient has multiple medical problems including advanced COPD multiple hospitalizations because of that patient had severe tracheobronchitis with the sputum positive for MRSA, enterococcus, Lou in the past. Patient was on IV vancomycin in the past. She is also company of cough with thick sputum production chest x-ray , showing chronic interstitial changes which are more prominent from compared to the previous chest x-ray, patient is already on Bumex at home which will be continued IV fluids were discontinued and patient was started on IV Lasix as well and patient is comparing of cough with the chest pain secondary to cough. I'm unable to appreciate any JVD, BNP is only 368. Patient was started on vancomycin infectious diseases pulmonary will be consulted. Review of Systems REVIEW OF SYSTEMS: CONSTITUTIONAL: No fever, no malaise, no fatigue. HEENT: No recent visual problems or hearing problems. Denied any sore throat. CARDIOVASCULAR: No chest pain, orthopnea, PND, no palpitations, no syncope. PULMONARY: As mentioned in HPI GASTROINTESTINAL: No diarrhea, no nausea, no vomiting, no abdominal pain. Normoactive bowel sounds. NEUROLOGICAL: No headaches, no weakness, no numbness. HEMATOLOGICAL: Denies any bleeding or petechiae. GENITOURINARY: Denies any burning micturition, frequency, or urgency. MUSCULOSKELETAL/RHEUMATOLOGICAL: Denies any joint pain, swelling, or any muscle pain. ENDOCRINE: Denies any polyuria or polydipsia. The rest of the 14-point review of systems is negative. Past Medical History Past Medical History: Blood Disorder, Heart Failure, COPD, Deep Vein Thrombosis (DVT), Hyperlipidemia, Hypertension, Myocardial Infarction ([place]), Musculoskeletal Disorder, Pneumonia, Pulmonary Embolus (PE), Thyroid Disorder Additional Past Medical History / Comment(s): PE 2012; Sarcoidosis diagnosed in 2015 following a bronchoscopy and lung biopsy done at [facility] and she was started on predniosone and she took the therapy for almost 1 year, polycythemia, overweight, bilateral PE (2011, 2015), bilateral DVTs, fibromyalgia, bipolar disorder, degenerative disk disorder, coronary artery disease along with previous history of a [place] and ventilator dependent respiratory failure with MRSA pneumonia for which the patient was hospitalized [facility] in 2012. Viral meningitis in October 2014. Pulmonary fibrosis, home 02 3l n/c Last Myocardial Infarction Date:: February 15, 2013 History of Any Multi-Drug Resistant Organisms: MRSA Date of last positivie culture/infection: 11/09/17 MDRO Source:: PLEURAL FLUID Past Surgical History: Section, Cholecystectomy, Heart Catheterization , Hernia Repair, Orthopedic Surgery Additional Past Surgical History / Comment(s): Lt ankle surgery, several bronchosopy-most recently 11/09/17 Past Anesthesia/Blood Transfusion Reactions: Motion Sickness, Postoperative Nausea & Vomiting (PONV) Additional Past Anesthesia/Blood Transfusion Reaction / Comment(s): previously charted -pt stated that last April she coded due to anesthetic Past Psychological History: Anxiety, Bipolar, Depression, Panic Disorder Additional Psychological History / Comment(s): and lives in the family home with her . No recent travel. No experience Smoking Status: Never smoker Past Alcohol Use History: None Reported Additional Past Alcohol Use History / Comment(s): patient lives with her significant other. last admit 11-03-17 pt was smoking 1ppd- pt's faincee stated she continues to smoked but he's not pedrito=re how much and it depends on how stressed she gets". denies alcohol use or recreational drug use. Patient is currently not working. No service. No recent travel. No animal exposures. She did leave the hospital AMA in March 2017. Difficulties with ongoing medical noncompliance. Patient quit smoking 3 weeks ago. There is a dog in the home. Past Drug Use History: None Reported - Past Family History Father Family Medical History: Blood Disorder, Congestive Heart Failure (CHF), CVA/TIA , Deep Vein Thrombosis (DVT), Myocardial Infarction ([place]) Additional Family Medical History / Comment(s): polycythemia Mother Family Medical History: Congestive Heart Failure (CHF), Diabetes Mellitus, Deep Vein Thrombosis (DVT), Myocardial Infarction ([place]), Musculoskeletal Disorder Additional Family Medical History / Comment(s): DDD Sister(s) Family Medical History: No Reported History Brother(s) Family Medical History: No Reported History Son(s) Family Medical History: No Reported History Daughter(s) Family Medical History: No Reported History Medications and Allergies Home Medications Medication Instructions Recorded Confirmed Type FLUoxetine HCL [PROzac] 20 mg PO DAILY #30 capsule 08/20/15 11/26/17 Rx Metoprolol Tartrate [Lopressor] 50 mg PO BID #60 tab 08/20/15 11/26/17 Rx lamoTRIgine [LaMICtal] 200 mg PO DAILY 03/22/16 11/26/17 History Bumetanide 4 mg PO QAM 10/18/16 11/26/17 History Butalb/APAP/Caff 50-325-40Mg 1 tab PO Q4H PRN 10/18/16 11/26/17 History [Fioricet 50-325-40] Ondansetron HCl [Zofran] 4 mg PO BID PRN 10/18/16 11/26/17 History Mirtazapine [Remeron] 45 mg PO HS 04/10/17 11/26/17 History ALPRAZolam [Xanax] 0.5 mg PO TID PRN 06/06/17 11/26/17 History Bumetanide [BUMEX] 2 mg PO DAILY@1200 09/16/17 11/26/17 History Pregabalin [Lyrica] 150 mg PO BID 09/16/17 11/26/17 History busPIRone HCL [Buspar] 30 mg PO BID 09/16/17 11/26/17 History Baclofen [Lioresal] 20 mg PO Q8H PRN 10/09/17 11/26/17 History Morphine Sulfate ER [Ms Contin] 30 mg PO Q8H PRN 11/03/17 11/26/17 History Nystatin 100,000 Unit/gm Powd 1 applic TOPICAL BID 11/04/17 11/26/17 History [Mycostatin Powder] Promethazine/Dextromethorphan 5 ml PO Q6H PRN 11/04/17 11/26/17 History [Promethazine-Dm Solution] Docusate [Colace] 100 mg PO BID PRN #60 cap 11/10/17 11/26/17 Rx Ipratropium-Albuterol Nebulize 3 ml INHALATION RT-QID #120 11/10/17 11/26/17 Rx [Duoneb 0.5 mg-3 mg/3 ml Soln] ampul.neb Potassium Chloride ER [K-Dur 20] 20 meq PO DAILY #30 tab.er.prt 11/10/17 Rx guaiFENesin [Mucinex] 1,200 mg PO Q12HR #40 tablet.er 11/10/17 11/26/17 Rx Fluconazole 200 mg PO DAILY #14 tab 11/13/17 11/26/17 Rx Sulfamethox-Tmp 800-160Mg [Bactrim 1 tab PO Q12HR #28 tab 11/13/17 11/26/17 Rx DS 800-160 mg] Ibuprofen [Advil] 800 mg PO Q8HR PRN 11/22/17 11/26/17 History Allergies Allergy/AdvReac Type Severity Reaction Status Date / Time ketorolac tromethamine Allergy Severe Anaphylaxis Verified 11/26/17 08:44 [From Toradol] Opioids - Morphine Analogues Allergy Mild Itching Verified 11/26/17 08:44 Iodinated Contrast- Oral and Allergy Unknown Verified 11/26/17 08:44 IV Dye rivaroxaban [From Xarelto] Allergy Rash/Hives Verified 11/26/17 08:44 sumatriptan [From Imitrex] Allergy Anaphylaxis Verified 11/26/17 08:44 sumatriptan succinate Allergy Anaphylaxis Verified 11/26/17 08:44 [From Imitrex] morphine AdvReac Severe Itching Verified 11/26/17 08:44 iodine AdvReac Intermediate Itching Verified 11/26/17 08:44 tramadol AdvReac Anaphylaxis Verified 11/26/17 08:44 vancomycin AdvReac Itching Verified 11/26/17 08:44 Rich wipes AdvReac Severe Rash/Hives Uncoded 11/25/17 23:40 Physical Exam Vitals: Vital Signs Temp Pulse Pulse Resp BP BP Pulse Ox 11/26/17 11:22 84 11/26/17 11:06 83 11/26/17 07:00 96.3 F L 88 84 20 116/78 91 L 11/26/17 06:44 84 11/26/17 01:47 92 L 11/26/17 01:22 99.8 F H 94 20 145/88 94 L 11/26/17 00:46 99.0 F 94 26 H 145/84 92 L 11/26/17 00:43 92 L 11/26/17 00:09 89 L 11/26/17 00:08 77 L 11/26/17 00:03 95 26 H 134/73 92 L 11/25/17 23:38 94 26 H 133/63 92 L 11/25/17 22:22 98.7 F 99 30 H 123/73 85 L Intake and Output 11/25/17 11/26/17 11/26/17 22:59 06:59 14:59 Intake Total 1400 Balance 1400 Intake: Intake, IV Titration 800 Amount Sodium Chloride 0.9% 1, 800 000 ml @ 100 mls/hr IV . Q10H [facility] Rx#:[id number] Oral 600 Other: Voiding Method Toilet Toilet # Voids 2 Weight 105.233 kg 105.21 kg PHYSICAL EXAMINATION: GENERAL: The patient is alert and oriented x3, not in any acute distress. Obese HEENT: Pupils are round and equally reacting to light. EOMI. No scleral icterus. No conjunctival pallor. Normocephalic, atraumatic. No pharyngeal erythema. No thyromegaly. CARDIOVASCULAR: S1 and S2 present. No murmurs, rubs, or gallops. PULMONARY: Rhonchorous breath sounds diffuse crackles minimal expiratory wheezing. ABDOMEN: Soft, nontender, nondistended, normoactive bowel sounds. No palpable organomegaly. MUSCULOSKELETAL: No joint swelling or deformity. EXTREMITIES: No cyanosis, clubbing, or pedal edema. NEUROLOGICAL: Gross neurological examination did not reveal any focal deficits. SKIN: No rashes. Results CBC & Chem 7: 11/26/17 07:04 11/26/17 07:04 Labs: Abnormal Lab Results - Last 24 Hours (Table) 11/25/17 11/25/17 11/25/17 Range/Units 22:48 22:48 22:48 WBC 13.5 H (3.8-10.6) k/uL Neutrophils # 9.5 H (1.3-7.7) k/uL Lymphocytes # (1.0-4.8) k/uL PT 12.8 H (9.0-12.0) sec INR 1.4 H (<1.2) Sodium 135 L (137-145) mmol/L Potassium 2.9 L* (3.5-5.1) mmol/L Glucose 127 H (74-99) mg/dL POC Glucose (mg/dL) (75-99) mg/dL Calcium 7.8 L (8.4-10.2) mg/dL Magnesium 1.5 L (1.6-2.3) mg/dL AST 55 H (14-36) U/L ALT 54 H (9-52) U/L 11/26/17 11/26/17 11/26/17 Range/Units 07:04 07:04 08:33 WBC (3.8-10.6) k/uL Neutrophils # (1.3-7.7) k/uL Lymphocytes # 0.9 L (1.0-4.8) k/uL PT (9.0-12.0) sec INR (<1.2) Sodium 136 L (137-145) mmol/L Potassium (3.5-5.1) mmol/L Glucose 225 H (74-99) mg/dL POC Glucose (mg/dL) 267 H (75-99) mg/dL Calcium 8.1 L (8.4-10.2) mg/dL Magnesium (1.6-2.3) mg/dL AST (14-36) U/L ALT (9-52) U/L 11/26/17 Range/Units 11:17 WBC (3.8-10.6) k/uL Neutrophils # (1.3-7.7) k/uL Lymphocytes # (1.0-4.8) k/uL PT (9.0-12.0) sec INR (<1.2) Sodium (137-145) mmol/L Potassium (3.5-5.1) mmol/L Glucose (74-99) mg/dL POC Glucose (mg/dL) 217 H (75-99) mg/dL Calcium (8.4-10.2) mg/dL Magnesium (1.6-2.3) mg/dL AST (14-36) U/L ALT (9-52) U/L Thrombosis Risk Factor Assmnt - Choose All That Apply Each Factor Represents 1 point: Age 41-60 years, Heart failure (<1month), Obesity (BMI >25), Serious lung disease incl. pneumonia (< 1month) Thrombosis Risk Factor Assessment Total Risk Factor Score: 4 Thrombosis Risk Factor Assessment Level: Moderate Risk Assessment and Plan Plan: Acute hypoxic and hypercapnic respiratory failure patient does have chronic hypercapnic respiratory failure secondary to COPD exacerbation. Patient appears to have increased interstitial markings although BNP is essentially within normal limits started on IV Lasix for 1 day see there is any improvement in her respiratory status. Pulmonology was consulted patient does have COPD exacerbation as well patient will be switched to oral steroids inhalational treatments. Vancomycin on to light infectious disease evaluation. -Bronchoscopy with recent MRSA candidate albicans felt pain rule out extracardiac enterococcus in the sputum. -Can start failure possibility of chronic past or dysfunction with minimal exacerbation -Hypertension -History of PE -Morbid obesity probably restrict lung disease -History of PE in the past -Anxiety disorder bipolar disorder. -Pleuritic chest pain secondary to coughing musculoskeletal nature.
[2017-11-26] MEDS: diphenhydrAMINE 50 MG CAP PO PRN ×2 (15:03→21:25)
[2017-11-26] MEDS: FUROSEMIDE 10 MG/ML 4 ML VIAL IV SCH ×2 (15:05→21:24)
[2017-11-26] MEDS: VANCOMYCIN 2,000 MG in SODIUM CHLORIDE 0.9% 500 ML IVPB SCH ×2 (15:40→21:55)
[2017-11-26] MEDS: HYDROcodone/APAP 7.5-325MG 1 EACH TAB PO PRN ×2 (16:08→23:57)
[2017-11-26 17:58] LABS: Glucose,Whole Blood 208 mg/dL (75-99)
[2017-11-26] MEDS: BUDESONIDE 1 MG/2 ML NEBU INHALATION SCH (19:15)
[2017-11-26] MEDS: FORMOTEROL FUMARATE 20 MCG/2 ML NEBU INHALATION SCH (19:43)
[2017-11-26 20:18] LABS: Glucose,Whole Blood 220 mg/dL (75-99)
[2017-11-26] MEDS: MIRTAZAPINE 45 MG TABLET PO SCH (21:25)
[2017-11-27] MEDS: ONDANSETRON 4 MG TAB PO PRN (02:45)
[2017-11-27] MEDS: diphenhydrAMINE 50 MG CAP PO PRN ×3 (06:00→22:39)
[2017-11-27] MEDS: methylPREDNISolone SOD SUCCI 125 MG/2 ML VIAL IV SCH ×4 (06:01→23:06)
[2017-11-27] MEDS: VANCOMYCIN 2,000 MG in SODIUM CHLORIDE 0.9% 500 ML IVPB SCH ×3 (06:12→23:06)
[2017-11-27] MEDS: ALPRAZolam 0.5 MG TAB PO PRN ×3 (06:16→22:39)
[2017-11-27] MEDS: MORPHINE SULFATE ER 30 MG TABLET PO PRN ×3 (06:16→22:39)
[2017-11-27 07:35] LABS: Glucose,Whole Blood 199 mg/dL (75-99)
[2017-11-27] MEDS: BUDESONIDE 1 MG/2 ML NEBU INHALATION SCH ×2 (08:18→20:31)
[2017-11-27] MEDS: FORMOTEROL FUMARATE 20 MCG/2 ML NEBU INHALATION SCH ×2 (08:18→20:31)
[2017-11-27] MEDS: IPRATROPIUM-ALBUTEROL 3 ML NEB INHALATION SCH ×4 (08:18→20:31)
[2017-11-27] MEDS: INSULIN ASPART 100 UNIT/ML 1 ML 10 ML VIAL SQ SCH ×4 (08:55→21:26)
[2017-11-27] MEDS: BUMETANIDE 1 MG TAB PO SCH ×2 (08:55→12:40)
[2017-11-27] MEDS: busPIRone HCl 10 MG TAB PO SCH ×2 (08:59→21:25)
[2017-11-27] MEDS ORDERED: predniSONE 20 MG TAB PO SCH (09:00)
[2017-11-27] MEDS: FLUCONAZOLE 100 MG TAB PO SCH (09:01)
[2017-11-27] MEDS: guaiFENesin 600 MG TABLET.ER PO SCH ×2 (09:02→21:25)
[2017-11-27] MEDS: FLUoxetine HCL 20 MG CAP PO SCH (09:02)
[2017-11-27] MEDS: METOPROLOL TARTRATE 50 MG TAB PO SCH ×2 (09:03→22:38)
[2017-11-27] MEDS: lamoTRIgine 100 MG TAB PO SCH (09:03)
[2017-11-27] MEDS: POTASSIUM CHLORIDE ER 20 MEQ TAB.ER PO SCH (09:05)
[2017-11-27] MEDS: NYSTATIN 100,000 UNIT/GM POWD 15 GM TOPICAL SCH ×2 (09:05→21:26)
[2017-11-27] MEDS ORDERED: LIDOCAINE 1% (PF) 10MG/ML VIAL SQ ONE (09:31)
[2017-11-27] MEDS: HYDROcodone/APAP 7.5-325MG 1 EACH TAB PO PRN (10:22)
--- NOTE | 2017-11-27 10:32 | P.CONS ---
History of Present Illness - Reason for Consult Consult date: 11/27/17 MRSA bronchitis - History of Present Illness This is a 47-year-old female that has multiple medical troubles that includes obesity and sarcoidosis. Is related that she was recently hospitalized at this facility for approximately one week and was treated for pneumonia. Because of ongoing difficulties with tenacious sputum and lack of improvement she was taken to the operating room and bronchoscopy was performed. Therapeutic lavage revealed evidence of large amounts of purulent secretions. After lavage she had a immediate improvement of her status and with this was thought to have evidence of mucous plugging and then was discharged to follow- up in the office. However the patient rapidly had a decline of her status becoming much more short of breath having sputum production and increasing weakness fatigue and malaise and believe that she had developed some fever, leukocytosis, increasing weakness and some alteration of her mental status. She was admitted November 12 to the and seen by pulmonary critical care as well as neurology. Infectious diseases was consulted at that time and patient was discharged home with Diflucan and Bactrim for 14 day course. She was subsequently directly admitted for COPD exacerbation from November 22November 24 and signed herself out AMA due to pain control issues. Patient states that her breathing continued to worsen at home and she returned to [facility] emergency center. She was afebrile with a white count of 13.5, potassium 2.9 status post replacement, creatinine 0.6. AST 55 and ALT 54. Blood culture was obtained. Chest x-ray showed interstitial pulmonary edema appears worse than prior. Could be pulmonary interstitial fibrosis. No pleural fluid. She was started on Diflucan and vancomycin and admitted to the [facility] floor. Patient is followed by Dr. Noyola. Review of Systems All systems: negative Constitutional: Reports fatigue, Reports malaise, Reports poor appetite, Reports weight loss, Denies chills, Denies fever Eyes: denies blurred vision, denies pain Ears, nose, mouth and throat: Denies dental pain, Denies headache, Denies mouth pain, Denies sore throat, Denies vertigo Cardiovascular: Reports decreased exercise tolerance, Reports dyspnea on exertion, Denies chest pain, Denies edema, Denies leg edema, Denies shortness of breath, Denies syncope Respiratory: Reports cough, Reports cough with sputum, Reports dyspnea, Reports home oxygen, Reports wheezing, Denies excessive sputum, Denies hemoptysis Gastrointestinal: Reports loss of appetite, Denies abdominal pain, Denies diarrhea, Denies nausea, Denies vomiting Genitourinary: Denies dysuria, Denies hematuria, Denies urgency, Denies urinary frequency Musculoskeletal: Denies myalgias Integumentary: Denies pruritus, Denies rash Neurological: Denies numbness, Denies weakness Psychiatric: Denies anxiety, Denies depression Endocrine: Denies fatigue, Denies weight change Past Medical History Past Medical History: Blood Disorder, Heart Failure, COPD, Deep Vein Thrombosis (DVT), Hyperlipidemia, Hypertension, Myocardial Infarction ([place]), Musculoskeletal Disorder, Pneumonia, Pulmonary Embolus (PE), Thyroid Disorder Additional Past Medical History / Comment(s): PE 2012; Sarcoidosis diagnosed in 2015 following a bronchoscopy and lung biopsy done at [facility] and she was started on predniosone and she took the therapy for almost 1 year, polycythemia, overweight, bilateral PE (2011, 2015), bilateral DVTs, fibromyalgia, bipolar disorder, degenerative disk disorder, coronary artery disease along with previous history of a [place] and ventilator dependent respiratory failure with MRSA pneumonia for which the patient was hospitalized [facility] in 2012. Viral meningitis in October 2014. Pulmonary fibrosis, home 02 3l n/c Last Myocardial Infarction Date:: February 15, 2013 History of Any Multi-Drug Resistant Organisms: MRSA Year Discovered:: 11/09/17 MDRO Source:: PLEURAL FLUID Past Surgical History: Section, Cholecystectomy, Heart Catheterization , Hernia Repair, Orthopedic Surgery Additional Past Surgical History / Comment(s): Lt ankle surgery, several bronchosopy-most recently 11/09/17 Past Anesthesia/Blood Transfusion Reactions: Motion Sickness, Postoperative Nausea & Vomiting (PONV) Additional Past Anesthesia/Blood Transfusion Reaction / Comm: previously charted -pt stated that last April she coded due to anesthetic Past Psychological History: Anxiety, Bipolar, Depression, Panic Disorder Additional Psychological History / Comment(s): and lives in the family home with her . No recent travel. No experience Smoking Status: Never smoker Past Alcohol Use History: None Reported Additional Past Alcohol Use History / Comment(s): patient lives with her significant other. last admit 11-03-17 pt was smoking 1ppd- pt's faincee stated she continues to smoked but he's not pedrito=re how much and it depends on how stressed she gets". denies alcohol use or recreational drug use. Patient is currently not working. No service. No recent travel. No animal exposures. She did leave the hospital AMA in March 2017 and October 2017. Difficulties with ongoing medical noncompliance. Patient quit smoking 3 weeks ago. There is a dog in the home. Past Drug Use History: None Reported - Past Family History Father Family Medical History: Blood Disorder, Congestive Heart Failure (CHF), CVA/TIA , Deep Vein Thrombosis (DVT), Myocardial Infarction ([place]) Additional Family Medical History / Comment(s): polycythemia Mother Family Medical History: Congestive Heart Failure (CHF), Diabetes Mellitus, Deep Vein Thrombosis (DVT), Myocardial Infarction ([place]), Musculoskeletal Disorder Additional Family Medical History / Comment(s): DDD Sister(s) Family Medical History: No Reported History Brother(s) Family Medical History: No Reported History Son(s) Family Medical History: No Reported History Daughter(s) Family Medical History: No Reported History Medications and Allergies Home Medications Medication Instructions Recorded Confirmed Type FLUoxetine HCL [PROzac] 20 mg PO DAILY #30 capsule 08/20/15 11/26/17 Rx Metoprolol Tartrate [Lopressor] 50 mg PO BID #60 tab 08/20/15 11/26/17 Rx lamoTRIgine [LaMICtal] 200 mg PO DAILY 03/22/16 11/26/17 History Bumetanide 4 mg PO QAM 10/18/16 11/26/17 History Butalb/APAP/Caff 50-325-40Mg 1 tab PO Q4H PRN 10/18/16 11/26/17 History [Fioricet 50-325-40] Ondansetron HCl [Zofran] 4 mg PO BID PRN 10/18/16 11/26/17 History Mirtazapine [Remeron] 45 mg PO HS 04/10/17 11/26/17 History ALPRAZolam [Xanax] 0.5 mg PO TID PRN 06/06/17 11/26/17 History Bumetanide [BUMEX] 2 mg PO DAILY@1200 09/16/17 11/26/17 History Pregabalin [Lyrica] 150 mg PO BID 09/16/17 11/26/17 History busPIRone HCL [Buspar] 30 mg PO BID 09/16/17 11/26/17 History Baclofen [Lioresal] 20 mg PO Q8H PRN 10/09/17 11/26/17 History Morphine Sulfate ER [Ms Contin] 30 mg PO Q8H PRN 11/03/17 11/26/17 History Nystatin 100,000 Unit/gm Powd 1 applic TOPICAL BID 11/04/17 11/26/17 History [Mycostatin Powder] Promethazine/Dextromethorphan 5 ml PO Q6H PRN 11/04/17 11/26/17 History [Promethazine-Dm Solution] Docusate [Colace] 100 mg PO BID PRN #60 cap 11/10/17 11/26/17 Rx Ipratropium-Albuterol Nebulize 3 ml INHALATION RT-QID #120 11/10/17 11/26/17 Rx [Duoneb 0.5 mg-3 mg/3 ml Soln] ampul.neb Potassium Chloride ER [K-Dur 20] 20 meq PO DAILY #30 tab.er.prt 11/10/17 Rx guaiFENesin [Mucinex] 1,200 mg PO Q12HR #40 tablet.er 11/10/17 11/26/17 Rx Fluconazole 200 mg PO DAILY #14 tab 11/13/17 11/26/17 Rx Sulfamethox-Tmp 800-160Mg [Bactrim 1 tab PO Q12HR #28 tab 11/13/17 11/26/17 Rx DS 800-160 mg] Ibuprofen [Advil] 800 mg PO Q8HR PRN 11/22/17 11/26/17 History Allergies Allergy/AdvReac Type Severity Reaction Status Date / Time ketorolac tromethamine Allergy Severe Anaphylaxis Verified 11/26/17 08:44 [From Toradol] Opioids - Morphine Analogues Allergy Mild Itching Verified 11/26/17 08:44 Iodinated Contrast- Oral and Allergy Unknown Verified 11/26/17 08:44 IV Dye rivaroxaban [From Xarelto] Allergy Rash/Hives Verified 11/26/17 08:44 sumatriptan [From Imitrex] Allergy Anaphylaxis Verified 11/26/17 08:44 sumatriptan succinate Allergy Anaphylaxis Verified 11/26/17 08:44 [From Imitrex] morphine AdvReac Severe Itching Verified 11/26/17 08:44 iodine AdvReac Intermediate Itching Verified 11/26/17 08:44 tramadol AdvReac Anaphylaxis Verified 11/26/17 08:44 vancomycin AdvReac Itching Verified 11/26/17 08:44 Rich wipes AdvReac Severe Rash/Hives Uncoded 11/25/17 23:40 Physical Exam Vitals: Vital Signs Temp Pulse Pulse Pulse Resp BP Pulse Ox 11/27/17 08:39 96 11/27/17 08:30 100 11/27/17 08:29 100 11/27/17 08:18 98 F 92 73 24 114/70 93 L 11/27/17 05:00 97.8 F 74 20 108/62 93 L 11/26/17 21:00 98 F 90 22 130/75 90 L 11/26/17 18:30 90 11/26/17 18:20 86 11/26/17 15:10 98.3 F 77 18 102/62 89 L 11/26/17 11:22 84 11/26/17 11:06 83 Intake and Output 11/26/17 11/27/17 11/27/17 22:59 06:59 14:59 Intake Total 590 1720 Balance 590 1720 Intake: Intake, IV Titration 1200 Amount Sodium Chloride 0.9% 1, 200 000 ml @ 100 mls/hr IV . Q10H AGNIESZKA Rx#:[id number] Vancomycin 2,000 mg In 1000 Sodium Chloride 0.9% 500 ml @ 167 mls/hr IVPB Q8H AGNIESZKA Rx#:[id number] Oral 590 520 Other: Voiding Method Toilet Toilet # Voids 2 3 Weight 108.953 kg 47-year-old female who has obesity. Patient is sitting up in bed and appears to be mostly comfortable. Mild respiratory distress with talking. HEENT: Anicteric conjunctiva are pink and moist nasal mucosa grossly intact without significant lesions, there is no thrush. Neck: The neck is supple without significant lymphadenopathy or thyromegaly. Lungs: Symmetrical air entry is noted, expiratory wheezes are scattered throughout with no true bronchial sounds no dullness or egophony Heart: Regular rate and rhythm with an audible S1-S2, no S3 no S4. There is no significant murmur click or rub, PMI was nondisplaced. Tenderness to the right lower lateral/anterior ribs. Abdomen: Obese, Positive bowel sounds soft and nontender without palpable masses or organomegaly. There was no guarding or rebound. Extremities: The upper extremities have excellent pulses they are symmetric, no significant petechiae or telangiectasia. No splinter hemorrhages were noted. The lower extremities have only trace pedal edema The peripheral pulses were 2+ and symmetric. Neuro: Awake alert oriented to person place and time. There are no acute new gross focal sensory motor deficits. Results Results: Laboratory Results WBC 8.2 k/uL (3.8-10.6) 11/26/17 07:04 RBC 4.84 m/uL (3.80-5.40) 11/26/17 07:04 Hgb 13.8 gm/dL (11.4-16.0) 11/26/17 07:04 Hct 43.3 % (34.0-46.0) 11/26/17 07:04 MCV 89.5 fL (80.0-100.0) 11/26/17 07:04 MCH 28.5 pg (25.0-35.0) 11/26/17 07:04 MCHC 31.8 g/dL (31.0-37.0) 11/26/17 07:04 RDW 13.6 % (11.5-15.5) 11/26/17 07:04 Plt Count 195 k/uL (150-450) 11/26/17 07:04 Neutrophils % 85 % 11/26/17 07:04 Lymphocytes % 11 % 11/26/17 07:04 Monocytes % 3 % 11/26/17 07:04 Eosinophils % 0 % 11/26/17 07:04 Basophils % 0 % 11/26/17 07:04 Neutrophils # 6.9 k/uL (1.3-7.7) 11/26/17 07:04 Lymphocytes # 0.9 k/uL (1.0-4.8) L 11/26/17 07:04 Monocytes # 0.3 k/uL (0-1.0) 11/26/17 07:04 Eosinophils # 0.0 k/uL (0-0.7) 11/26/17 07:04 Basophils # 0.0 k/uL (0-0.2) 11/26/17 07:04 PT 12.8 sec (9.0-12.0) H 11/25/17 22:48 INR 1.4 (<1.2) H 11/25/17 22:48 APTT 24.2 sec (22.0-30.0) 11/25/17 22:48 Sodium 136 mmol/L (137-145) L 11/26/17 07:04 Potassium 4.2 mmol/L (3.5-5.1) 11/26/17 07:04 Chloride 101 mmol/L (98-107) 11/26/17 07:04 Carbon Dioxide 25 mmol/L (22-30) 11/26/17 07:04 Anion Gap 10 mmol/L 11/26/17 07:04 BUN 12 mg/dL (7-17) 11/26/17 07:04 Creatinine 0.57 mg/dL (0.52-1.04) 11/26/17 07:04 Est GFR (CKD-EPI)AfAm >90 (>60 ml/min/1.73 sqM) 11/26/17 07:04 Est GFR (CKD-EPI)NonAf >90 (>60 ml/min/1.73 sqM) 11/26/17 07:04 Glucose 225 mg/dL (74-99) H 11/26/17 07:04 POC Glucose (mg/dL) 199 mg/dL (75-99) H 11/27/17 07:30 POC Glu Embedded Software Design Engineer ID Kizzy Lujan 11/27/17 07:[address] Glu mg/dL 126 11/25/17 22:48 Hemoglobin A1c 6.0 % (4.0-6.0) 11/25/17 22:48 Calcium 8.1 mg/dL (8.4-10.2) L 11/26/17 07:04 Magnesium 1.5 mg/dL (1.6-2.3) L 11/25/17 22:48 Total Bilirubin 0.7 mg/dL (0.2-1.3) 11/25/17 22:48 AST 55 U/L (14-36) H 11/25/17 22:48 ALT 54 U/L (9-52) H 11/25/17 22:48 Alkaline Phosphatase 95 U/L (38-126) 11/25/17 22:48 Total Creatine Kinase 36 U/L (30-135) 11/25/17 22:48 CK-MB (CK-2) 0.6 ng/mL (0.0-2.4) 11/25/17 22:48 CK-MB (CK-2) Rel Index 1.7 11/25/17 22:48 Troponin I <0.012 ng/mL (0.000-0.034) 11/25/17 22:48 NT-Pro-B Natriuret Pep 368 pg/mL 11/25/17 22:48 Total Protein 6.5 g/dL (6.3-8.2) 11/25/17 22:48 Albumin 3.7 g/dL (3.5-5.0) 11/25/17 22:48 CBC & Chem 7: 11/26/17 07:04 11/26/17 07:04 Labs: Abnormal Lab Results - Last 24 Hours (Table) 11/26/17 11/26/17 11/26/17 Range/Units 11:17 17:57 20:16 POC Glucose (mg/dL) 217 H 208 H 220 H (75-99) mg/dL 11/27/17 Range/Units 07:30 POC Glucose (mg/dL) 199 H (75-99) mg/dL Microbiology - Last 24 Hours (Table) 11/25/17 22:48 Blood Culture - Preliminary Blood No Growth after 24 hours Assessment and Plan Plan: This is a 47-year-old female presents to hospital with increasing shortness of breath, congestion, COPD exacerbation. No pneumonia found on chest x-ray. She has been started on vancomycin, DuoNeb treatments, continued on Diflucan. Sputum culture to be obtained. Blood culture is status received. Continue supportive care. Further recommendations as patient progresses. The above dictated assessment and findings were discussed with Dr. Lott. The impression and plan of care have been directed as dictated. Jen Burr nurse practitioner acting as scribe for Dr. Lott.
[2017-11-27] MEDS: PREGABALIN 75 MG CAP PO SCH ×2 (10:38→21:27)
[2017-11-27] MEDS: FUROSEMIDE 10 MG/ML 4 ML VIAL IV SCH (10:44)
[2017-11-27] MEDS: BUTALB/APAP/CAFF 50-325-40MG TAB PO PRN (11:37)
[2017-11-27 11:57] LABS: Glucose,Whole Blood 199 mg/dL (75-99)
[2017-11-27] MEDS ORDERED: guaiFENesin-DM 100-10MG/5ML 10 ML CUP PO PRN (13:15)
--- NOTE | 2017-11-27 14:06 | P.PN ---
Subjective Progress Note Date: 11/27/17 Principal diagnosis: Acute exacerbation of COPD, This is a 47-year-old female with known history of COPD, chronic smoker, history of interstitial lung disease secondary to sarcoidosis which was supposedly biopsy-proven at [facility]. History of multiple admissions to the hospital with acute on chronic hypoxic respiratory failure secondary to COPD exacerbation and interstitial lung disease. History of MRSA infection, Enterococcus faecalis infection and strep species infections. Patient was recently admitted to the hospital, but she left AGAINST MEDICAL ADVICE, but she was readmitted again on Sunday when she presented back to the ER with cough wheezing shortness of breath. Apparently the patient was upset because she was not given in medications, and she was not receiving vancomycin as she requested. Patient was seen by Dr. Lott on consultation, and he did not feel the need for vancomycin, without any specific culture. From previous bronchoalveolar lavage, the patient had combinations of MRSA Enterococcus faecalis and strep species. But no bronchoalveolar lavage and bronchoscopy done on this admission. At any rate patient was seen on consultation by Dr. Hicks, and she was placed empirically on antibiotics, bronchodilators, steroids, and apparently she was not making much improvement. This time she was readmitted, her chest x-ray continues to show interstitial lung disease, seen by the hospitalist started the patient empirically on vancomycin. Labs on admission showed leukocytosis, WBC count of 13.5. Her potassium was low at 2.9. Otherwise the remaining labs were unremarkable. Patient had mostly cough wheezing shortness of breath, no documented fever, no chills, no hemoptysis, she does have some vague chest wall pain, no headaches or blurred vision dizziness, no nausea vomiting abdominal pain melena or hematemesis. No dysuria frequency or urgency. Patient was reevaluated today on 11/27/2017, slight improvement over the last 24 hours, less wheezing but continues to cough continuously. Hence cough suppressant was added. Patient pleased feels better since she was started back on her bronchodilators, steroids, and remains on antibiotics in the form of vancomycin. Patient was given instructions to at least give us a sample of sputum for cultures. All her meds were reviewed, considering slight improvement noted over the last 24 hours, I am a bit reluctant to perform bronchoscopy at this point. Patient is even sounding better compared to how she sounded yesterday on physical examination. WBC count is 8.2 hemoglobin is 13.8 electrolytes and renal profile are normal. Objective - Vital Signs Vital signs: Vital Signs Temp 98 F 11/27/17 08:18 Pulse 100 11/27/17 13:48 Resp 24 11/27/17 11:08 BP 114/70 11/27/17 08:18 Pulse Ox 93 L 11/27/17 08:18 Intake & Output 11/26/17 11/27/17 11/27/17 18:59 06:59 18:59 Intake Total 2310 2180 Balance 2310 2180 Weight 108.953 kg Intake: Intake, IV Titration 1200 500 Amount Sodium Chloride 0.9% 1, 200 000 ml @ 100 mls/hr IV . Q10H [id number] Rx#:[id number] Vancomycin 2,000 mg In 1000 500 Sodium Chloride 0.9% 500 ml @ 167 mls/hr IVPB Q8H AGNIESZKA Rx#:[id number] Oral 1110 1680 Other: Voiding Method Toilet Toilet Bedside Commode # Voids 7 3 2 - Exam Physical Exam: Revealed a 47-year-old female, obese, in no form of respiratory distress. Head: Atraumatic, cushingoid, normocephalic. HEENT:[Neck is supple.] [No neck masses.] [No thyromegaly.] [No JVD.] Chest: [Symmetrical chest expansion, diffuse rhonchi and wheezes bilaterally.. Slightly improved breath sounds compared to the last 24 hours.] Cardiac Exam: [Distant S1 and S2, no S3 gallop, no murmur.] Abdomen: Obese, [Soft, nontender, no megaly, no rebound, no guarding, normal bowel sounds.] Extremities: [No clubbing, no edema, no cyanosis.] Neurological Exam: [No focal neurologic deficit.] Lymphatics: No lymphadenopathy. Psychiatric: Normal mood affect and mental status examination. - Labs CBC & Chem 7: 11/26/17 07:04 11/26/17 07:04 Labs: Abnormal Lab Results - Last 24 Hours (Table) 11/26/17 11/26/17 11/27/17 Range/Units 17:57 20:16 07:30 POC Glucose (mg/dL) 208 H 220 H 199 H (75-99) mg/dL 11/27/17 Range/Units 11:55 POC Glucose (mg/dL) 199 H (75-99) mg/dL Microbiology - Last 24 Hours (Table) 11/25/17 22:48 Blood Culture - Preliminary Blood No Growth after 24 hours Assessment and Plan Assessment: #1. Acute COPD exacerbation with secondary shortness of breath. The patient was in the hospital approximately 3 weeks ago treated for an acute COPD exacerbation a bronchoscopy back then showed a combination of MRSA, Enterococcus faecalis and strep. Obviously MRSA has been there the past and cultures and please bronchoscopies. The patient took Bactrim on outpatient basis and she's coming in with similar symptoms of COPD exacerbation, and failed to recover on outpatient basis. #2. Musculoskeletal right-sided chest wall pain secondary to cough. Chest x- ray shows increased interstitial markings probably related to a previous sarcoidosis. #3. Chronic hypoxic respiratory failure secondary to above #4. Sarcoidosis, confirmed by lung biopsy at [facility] 2014, treated with systemic steroids that was ultimately weaned off and discontinued #5. History of pulmonary embolisms in 2011, 2016, DVTs, currently on anticoagulation with Coumadin, with therapeutic PT/INR #6. Nicotine addiction, ongoing, currently down to 2 cigarettes per day, carries over [id number] smoking history #7. Obesity with features of obstructive sleep apnea #8. Anxiety #9. CAD, history of myocardial infarction #10. Recurrent hospitalizations for respiratory complications #11. Bipolar disorder #12. Degenerative disc disease #13. Hypertension #14 hyperlipidemia #15 fibromyalgia Recommendation: Continue present treatment plan, patient will continue on antibiotics as per the admitting physician, added Pulmicort updrafts, Perforomist updrafts, continue DuoNeb, continue Solu-Medrol, will follow. Time with Patient: Less than 30
[2017-11-27] MEDS: SENNOSIDES-DOCUSATE SODIUM 1 EACH TAB PO SCH ×2 (16:48→22:43)
[2017-11-27] MEDS: LACTULOSE 20 GM/30 ML CUP PO SCH ×3 (16:50→21:27)
--- NOTE | 2017-11-27 17:37 | P.PN ---
Subjective Progress Note Date: 11/27/17 Progress note being dictated for Dr. Zepeda Interval history:Patient is a known patient to us, was admitted couple days ago for severe bronchitis with COPD exacerbation, left [facility] came back to the hospital because of severe hypoxemia requiring about the 12th 50 L of oxygen. Patient has multiple medical problems including advanced COPD multiple hospitalizations because of that patient had severe tracheobronchitis with the sputum positive for MRSA, enterococcus, Lou in the past. Patient was on IV vancomycin in the past. She is also company of cough with thick sputum production chest x-ray, showing chronic interstitial changes which are more prominent from compared to the previous chest x-ray, patient is already on Bumex at home which will be continued IV fluids were discontinued and patient was started on IV Lasix as well and patient is comparing of cough with the chest pain secondary to cough. I'm unable to appreciate any JVD, BNP is only 368. Patient was started on vancomycin infectious diseases pulmonary will be consulted. Review of Systems REVIEW OF SYSTEMS: CONSTITUTIONAL: No fever, no malaise, no fatigue. HEENT: No recent visual problems or hearing problems. Denied any sore throat. CARDIOVASCULAR: No chest pain, orthopnea, PND, no palpitations, no syncope. PULMONARY: As mentioned in HPI GASTROINTESTINAL: No diarrhea, no nausea, no vomiting, no abdominal pain. Normoactive bowel sounds. NEUROLOGICAL: No headaches, no weakness, no numbness. HEMATOLOGICAL: Denies any bleeding or petechiae. GENITOURINARY: Denies any burning micturition, frequency, or urgency. MUSCULOSKELETAL/RHEUMATOLOGICAL: Denies any joint pain, swelling, or any muscle pain. ENDOCRINE: Denies any polyuria or polydipsia. The rest of the 14-point review of systems is negative. 11/27/18 Afebrile, blood cultures negative at 24 hours. Maintaining O2 sats of 94% on 15 L high flow nasal cannula. PICC line placed, tolerated procedure well. Objective - Vital Signs Vital signs: Vital Signs Temp 98.4 F 11/27/17 13:00 Pulse 99 11/27/17 16:31 Resp 17 11/27/17 13:00 BP 117/71 11/27/17 13:00 Pulse Ox 94 L 11/27/17 13:00 Intake & Output 08/27/18 08/28/18 08/28/18 18:59 06:59 18:59 Intake Total 2310 2180 Balance 2310 2180 Weight 108.953 kg Intake: Intake, IV Titration 1200 500 Amount Sodium Chloride 0.9% 1, 200 000 ml @ 100 mls/hr IV . Q10H [id number] Rx#:[id number] Vancomycin 2,000 mg In 1000 500 Sodium Chloride 0.9% 500 ml @ 167 mls/hr IVPB Q8H [facility] Rx#:[id number] Oral 1110 1680 Other: Voiding Method Toilet Toilet Bedside Commode # Voids 7 3 2 - Exam GENERAL: The patient is alert and oriented x3, not in any acute distress. Ambulating from bathroom. HEENT: Pupils are round and equally reacting to light. EOMI. No scleral icterus. No conjunctival pallor. Normocephalic, atraumatic. No pharyngeal erythema. No thyromegaly. CARDIOVASCULAR: S1 and S2 present. No murmurs, rubs, or gallops. PULMONARY: Mildly improving Rhonchorous breath sounds diffuse crackles minimal expiratory wheezing. ABDOMEN: Soft, nontender, nondistended, normoactive bowel sounds. No palpable organomegaly. MUSCULOSKELETAL: No joint swelling or deformity. EXTREMITIES: No cyanosis, clubbing, or pedal edema. NEUROLOGICAL: Gross neurological examination did not reveal any focal deficits. SKIN: No rashes. - Labs CBC & Chem 7: 11/26/17 07:04 11/26/17 07:04 Labs: Abnormal Lab Results - Last 24 Hours (Table) 11/26/17 11/26/17 11/27/17 Range/Units 17:57 20:16 07:30 POC Glucose (mg/dL) 208 H 220 H 199 H (75-99) mg/dL 11/27/17 Range/Units 11:55 POC Glucose (mg/dL) 199 H (75-99) mg/dL Microbiology - Last 24 Hours (Table) 11/25/17 22:48 Blood Culture - Preliminary Blood No Growth after 24 hours Assessment and Plan Assessment: Acute hypoxic and hypercapnic respiratory failure patient does have chronic hypercapnic respiratory failure secondary to COPD exacerbation. -Bronchoscopy with recent MRSA candidate albicans felt pain rule out extracardiac enterococcus in the sputum. -Interstitial markings per chest x-ray probably related to previous sarcoidosis. -Hypertension -History of PE -Morbid obesity probably restrict lung disease -History of PE in the past -Anxiety disorder bipolar disorder. -Pleuritic chest pain secondary to coughing musculoskeletal nature. Plan: Continue on current medication regime ,monitoring and symptomatic treatment. Maintain nebulized bronchodilators, steroids, antibiotics. Patient complaining of constipation, lactulose and Senokot S added to med regime. Increase ambulation as tolerated. The impression and plan of care has been dictated as directed. : I performed a history and examination of this patient, discussed the same with the dictator. I agree with the dictator's note ,documented as a scribe. Any additional findings or plans will be noted.
[2017-11-27 18:18] LABS: Glucose,Whole Blood 281 mg/dL (75-99)
[2017-11-27 20:27] LABS: Glucose,Whole Blood 180 mg/dL (75-99)
[2017-11-27] MEDS: MIRTAZAPINE 45 MG TABLET PO SCH (21:26)
--- NOTE | 2017-11-27 22:44 | P.CON ---
Consult Note - . Consult date: 11/27/17 Assessment/Plan:: This is a 47-year-old female that has multiple medical troubles that includes obesity and sarcoidosis. Is related that she was recently hospitalized at this facility for approximately one week and was treated for pneumonia. Because of ongoing difficulties with tenacious sputum and lack of improvement she was taken to the operating room and bronchoscopy was performed. Therapeutic lavage revealed evidence of large amounts of purulent secretions. After lavage she had a immediate improvement of her status and with this was thought to have evidence of mucous plugging and then was discharged to follow- up in the office. However the patient rapidly had a decline of her status becoming much more short of breath having sputum production and increasing weakness fatigue and malaise and believe that she had developed some fever, leukocytosis, increasing weakness and some alteration of her mental status. She was admitted November 12 to the and seen by pulmonary critical care as well as neurology. Infectious diseases was consulted at that time and patient was discharged home with Diflucan and Bactrim for 14 day course. She was subsequently directly admitted for COPD exacerbation from November 22November 24 and signed herself out AMA due to pain control issues. Patient states that her breathing continued to worsen at home and she returned to [facility] emergency center. She was afebrile with a white count of 13.5, potassium 2.9 status post replacement, creatinine 0.6. AST 55 and ALT 54. Blood culture was obtained. Chest x-ray showed interstitial pulmonary edema appears worse than prior. Could be pulmonary interstitial fibrosis. No pleural fluid. She was started on Diflucan and vancomycin and admitted to the [facility] floor. Patient is followed by Dr. Noyola. Please see the consult note as dictated by NIKHIL Narayan Jen Musaantoni. Patient was recently hospitalized, but left ama because of frustration. Today made it clear that the team is communicating and striving to develop an active plan given the declining status. She is now on high flow oxygen and multiple breathing treatments and antimicrobials. The vanco and fluconazole continue for now. If she does not rapidly improve, would suggest evaluation by the [facility]. Trying to limit opportunities for patient to manipulate the different consultants, does like IV Benadryl before Vanco and is not unreasonable at this time. I agree with the evaluation assessment and plan as dictated by NIKHIL Mrs. Jen Burr.
[2017-11-28] MEDS: ONDANSETRON 4 MG TAB PO PRN (03:04)
[2017-11-28] MEDS ORDERED: VANCOMYCIN TROUGH DUE 1 EACH MISC MISCELLANE ONE (05:00)
[2017-11-28] MEDS: diphenhydrAMINE 50 MG CAP PO PRN ×2 (05:47→12:42)
[2017-11-28] MEDS: methylPREDNISolone SOD SUCCI 125 MG/2 ML VIAL IV SCH ×3 (05:47→17:32)
[2017-11-28] MEDS: VANCOMYCIN 2,000 MG in SODIUM CHLORIDE 0.9% 500 ML IVPB SCH (06:04)
[2017-11-28 06:09] LABS: Basophils % (A) 0 %; Eosinophils # (A) 0.2 k/uL (0-0.7); Eosinophils % (A) 1 %; HCT 41.2 % (34.0-46.0); HGB 13.6 gm/dL (11.4-16.0); Lymphocytes # (A) 1.6 k/uL (1.0-4.8); Lymphocytes % (A) 12 %; MCH 29.3 pg (25.0-35.0); MCV 88.9 fL (80.0-100.0); Mean Platelet Volume 7.2; Monocytes # (A) 0.5 k/uL (0-1.0); Monocytes % (A) 4 %; Neutrophils # (A) 10.9 k/uL (1.3-7.7); Neutrophils % (A) 82 %; Platelet Count 317 k/uL (150-450); RBC 4.63 m/uL (3.80-5.40); RDW 13.9 % (11.5-15.5); WBC 13.2 k/uL (3.8-10.6)
[2017-11-28 06:15] LABS: Anion Gap 5 mmol/L; Blood Urea Nitrogen 21 mg/dL (7-17); Calcium 8.9 mg/dL (8.4-10.2); Carbon Dioxide 30 mmol/L (22-30); Chloride 100 mmol/L (98-107); Glucose 218 mg/dL (74-99); Potassium 3.9 mmol/L (3.5-5.1); Sodium 135 mmol/L (137-145)
[2017-11-28] MEDS: ALPRAZolam 0.5 MG TAB PO PRN (06:54)
[2017-11-28] MEDS: MORPHINE SULFATE ER 30 MG TABLET PO PRN (06:54)
[2017-11-28 07:24] LABS: Glucose,Whole Blood 199 mg/dL (75-99)
[2017-11-28] MEDS: FORMOTEROL FUMARATE 20 MCG/2 ML NEBU INHALATION SCH ×2 (07:32→18:33)
[2017-11-28] MEDS: IPRATROPIUM-ALBUTEROL 3 ML NEB INHALATION SCH ×4 (07:32→18:34)
[2017-11-28] MEDS: BUDESONIDE 1 MG/2 ML NEBU INHALATION SCH ×2 (07:32→18:33)
--- NOTE | 2017-11-28 07:54 | IR ---
EXAMINATION TYPE: IR cvc insert >=5 years DATE OF EXAM: 11/27/2017 COMPARISON: NONE CLINICAL HISTORY: Infection Needs long-term intravenous access for antibiotics. PROCEDURE: After informed consent, the skin overlying the upper extremity vein was localized with ultrasound and noted to be compressible and patent. An ultrasound image was obtained and submitted on the patient' s chart. The overlying skin was prepped and draped and Lidocaine was used for local anesthesia. A s kin laureano was made with a scalpel. Access was gained to the vein under ultrasound guidance with a 21 gauge needle and a 0.018 inch wire was advanced. Access site was dilated with Peel-Away sheath and c atheter tailored to the appropriate length and advanced such that the distal tip is at the cavoatrial junction. Spot image was obtained verifying placement. Catheter was fixed to the skin and a steril e dressing was placed following hemostasis. Catheter was aspirated and flushed with saline. Patient was discharged in stable condition without complication. Maximal barrier technique is utilized. Ult rasound image is documented on the chart. Ultrasound used with sterile technique. Fluoro time and fluoroscopic images submitted to document procedure: 0.4 minutes fluoroscopy time, 22 7 intraoperative images IMPRESSION: STATUS POST ULTRASOUND AND FLUOROSCOPIC GUIDED PICC LINE PLACEMENT, READY FOR USE. THIS PROCEDURE WAS PERFORMED BY THE UNDERSIGNED.
[2017-11-28] MEDS: INSULIN ASPART 100 UNIT/ML 1 ML 10 ML VIAL SQ SCH ×4 (08:13→20:26)
[2017-11-28] MEDS: FLUoxetine HCL 20 MG CAP PO SCH (08:15)
[2017-11-28] MEDS: BUMETANIDE 1 MG TAB PO SCH ×2 (08:15→12:38)
[2017-11-28] MEDS: guaiFENesin 600 MG TABLET.ER PO SCH ×2 (08:15→20:25)
[2017-11-28] MEDS: SENNOSIDES-DOCUSATE SODIUM 1 EACH TAB PO SCH ×2 (08:15→20:43)
[2017-11-28] MEDS: busPIRone HCl 10 MG TAB PO SCH ×2 (08:15→20:25)
[2017-11-28] MEDS: lamoTRIgine 100 MG TAB PO SCH (08:15)
[2017-11-28] MEDS: FLUCONAZOLE 100 MG TAB PO SCH (08:16)
[2017-11-28] MEDS: POTASSIUM CHLORIDE ER 20 MEQ TAB.ER PO SCH (08:16)
[2017-11-28] MEDS: PREGABALIN 75 MG CAP PO SCH ×2 (08:16→20:24)
[2017-11-28] MEDS: LACTULOSE 20 GM/30 ML CUP PO SCH ×3 (08:20→22:50)
[2017-11-28] MEDS: METOPROLOL TARTRATE 50 MG TAB PO SCH ×2 (08:22→20:29)
[2017-11-28] MEDS: NYSTATIN 100,000 UNIT/GM POWD 15 GM TOPICAL SCH ×2 (08:25→20:43)
[2017-11-28] MEDS: HYDROcodone/APAP 7.5-325MG 1 EACH TAB PO PRN ×2 (08:28→20:29)
[2017-11-28 11:28] LABS: Glucose,Whole Blood 222 mg/dL (75-99)
--- NOTE | 2017-11-28 11:35 | P.PN ---
Subjective Progress Note Date: 11/28/17 Principal diagnosis: Acute exacerbation of chronic obstructive pulmonary disease This is a 47-year-old female with known history of COPD, chronic smoker, history of interstitial lung disease secondary to sarcoidosis which was supposedly biopsy-proven at [facility]. History of multiple admissions to the hospital with acute on chronic hypoxic respiratory failure secondary to COPD exacerbation and interstitial lung disease. History of MRSA infection, Enterococcus faecalis infection and strep species infections. Patient was recently admitted to the hospital, but she left AGAINST MEDICAL ADVICE, but she was readmitted again on Sunday when she presented back to the ER with cough wheezing shortness of breath. Apparently the patient was upset because she was not given in medications, and she was not receiving vancomycin as she requested. Patient was seen by Dr. Lott on consultation, and he did not feel the need for vancomycin, without any specific culture. From previous bronchoalveolar lavage, the patient had combinations of MRSA Enterococcus faecalis and strep species. But no bronchoalveolar lavage and bronchoscopy done on this admission. At any rate patient was seen on consultation by Dr. Hicks, and she was placed empirically on antibiotics, bronchodilators, steroids, and apparently she was not making much improvement. This time she was readmitted, her chest x-ray continues to show interstitial lung disease, seen by the hospitalist started the patient empirically on vancomycin. Labs on admission showed leukocytosis, WBC count of 13.5. Her potassium was low at 2.9. Otherwise the remaining labs were unremarkable. Patient had mostly cough wheezing shortness of breath, no documented fever, no chills, no hemoptysis, she does have some vague chest wall pain, no headaches or blurred vision dizziness, no nausea vomiting abdominal pain melena or hematemesis. No dysuria frequency or urgency. Patient was reevaluated today on 11/27/2017, slight improvement over the last 24 hours, less wheezing but continues to cough continuously. Hence cough suppressant was added. Patient pleased feels better since she was started back on her bronchodilators, steroids, and remains on antibiotics in the form of vancomycin. Patient was given instructions to at least give us a sample of sputum for cultures. All her meds were reviewed, considering slight improvement noted over the last 24 hours, I am a bit reluctant to perform bronchoscopy at this point. Patient is even sounding better compared to how she sounded yesterday on physical examination. WBC count is 8.2 hemoglobin is 13.8 electrolytes and renal profile are normal. The patient is seen again today 11/28/2017 in follow-up on the regular medical floor. She continues to have dyspnea on minimal exertion. She states her O2 saturations went down into the 40s while off her oxygen during the night but did recover with 15 L high flow nasal cannula. She still quite bronchospastic and wheezing today. White count 13.2. Hemoglobin 13.6. Creatinine 0.70. Blood culture reveals no growth to date. She is currently on vancomycin. Objective - Vital Signs Vital signs: Vital Signs Temp 97.8 F 11/28/17 07:12 Pulse 73 11/28/17 07:53 Resp 23 11/28/17 07:12 BP 125/70 11/28/17 07:12 Pulse Ox 96 11/28/17 07:12 Intake & Output 11/27/17 11/28/17 11/28/17 18:59 06:59 18:59 Intake Total 2180 590 480 Balance 2180 590 480 Weight 111.266 kg Intake: Intake, IV Titration 500 Amount Vancomycin 2,000 mg In 500 Sodium Chloride 0.9% 500 ml @ 167 mls/hr IVPB Q8H [facility] Rx#:[id number] Oral 1680 590 480 Other: Voiding Method Bedside Commode Bedside Commode # Voids 2 2 - Exam Physical Exam: Revealed a 47-year-old female, obese, in no form of respiratory distress. Head: Atraumatic, cushingoid, normocephalic. HEENT:[Neck is supple.] [No neck masses.] [No thyromegaly.] [No JVD.] Chest: [Symmetrical chest expansion, diffuse rhonchi and wheezes bilaterally. Cardiac Exam: [Distant S1 and S2, no S3 gallop, no murmur.] Abdomen: Obese, [Soft, nontender, no megaly, no rebound, no guarding, normal bowel sounds.] Extremities: [No clubbing, no edema, no cyanosis.] Neurological Exam: [No focal neurologic deficit.] Lymphatics: No lymphadenopathy. Psychiatric: Normal mood affect and mental status examination. - Labs CBC & Chem 7: 11/28/17 05:52 11/28/17 05:52 Labs: Abnormal Lab Results - Last 24 Hours (Table) 11/27/17 11/27/17 11/27/17 Range/Units 11:55 17:51 20:25 WBC (3.8-10.6) k/uL Neutrophils # (1.3-7.7) k/uL Sodium (137-145) mmol/L BUN (7-17) mg/dL Glucose (74-99) mg/dL POC Glucose (mg/dL) 199 H 281 H 180 H (75-99) mg/dL 11/28/17 11/28/17 11/28/17 Range/Units 05:52 05:52 07:23 WBC 13.2 H (3.8-10.6) k/uL Neutrophils # 10.9 H (1.3-7.7) k/uL Sodium 135 L (137-145) mmol/L BUN 21 H (7-17) mg/dL Glucose 218 H (74-99) mg/dL POC Glucose (mg/dL) 199 H (75-99) mg/dL Microbiology - Last 24 Hours (Table) 11/25/17 22:48 Blood Culture - Preliminary Blood No Growth after 48 hours Assessment and Plan Assessment: #1. Acute COPD exacerbation with secondary shortness of breath. The patient was in the hospital approximately 3 weeks ago treated for an acute COPD exacerbation a bronchoscopy back then showed a combination of MRSA, Enterococcus faecalis and strep. Obviously MRSA has been there the past and cultures and previous bronchoscopies. The patient took Bactrim on outpatient basis and she's coming in with similar symptoms of COPD exacerbation, and failed to recover on outpatient basis. #2. Musculoskeletal right-sided chest wall pain secondary to cough. Chest x- ray shows increased interstitial markings probably related to a previous sarcoidosis. #3. Chronic hypoxic respiratory failure secondary to above #4. Sarcoidosis, confirmed by lung biopsy at [facility] 2014, treated with systemic steroids that was ultimately weaned off and discontinued #5. History of pulmonary embolisms in 2011, 2016, DVTs, currently on anticoagulation with Coumadin, with therapeutic PT/INR #6. Nicotine addiction, ongoing, currently down to 2 cigarettes per day, carries over [id number] smoking history #7. Obesity with features of obstructive sleep apnea #8. Anxiety #9. CAD, history of myocardial infarction #10. Recurrent hospitalizations for respiratory complications #11. Bipolar disorder #12. Degenerative disc disease #13. Hypertension #14. Hyperlipidemia #15. Fibromyalgia Plan: The patient was seen and evaluated by Dr. Noyola. The patient is quite insistent on receiving another bronchoscopy despite her high risk for requiring intubation and mechanical ventilatory support as she is intolerant to the procedure in the past. She is currently receiving 15 L high flow nasal cannula to maintain O2 saturations in the 90s. She is also already on vancomycin. We will go ahead and schedule her for bronchoscopy in the a.m. I, the cosigning physician, performed a history & physical examination of the patient. Lungs sounds bilateral wheezing, diminished. Maintaining good O2 saturations in the 90s on 10 L high flow nasal cannula. I discussed the assessment and plan of care with my nurse practitioner, Nicki Roper. I attest to the above note as dictated by her.
[2017-11-28] MEDS ORDERED: MORPHINE SULFATE 4 MG/ML SYRINGE IVP ONE (12:26)
--- NOTE | 2017-11-28 15:59 | P.PN ---
Subjective Progress Note Date: 11/28/17 Progress note being dictated for Dr. Zepeda Interval history:Patient is a known patient to us, was admitted couple days ago for severe bronchitis with COPD exacerbation, left [facility] came back to the hospital because of severe hypoxemia requiring about the 12th 50 L of oxygen. Patient has multiple medical problems including advanced COPD multiple hospitalizations because of that patient had severe tracheobronchitis with the sputum positive for MRSA, enterococcus, Lou in the past. Patient was on IV vancomycin in the past. She is also company of cough with thick sputum production chest x-ray, showing chronic interstitial changes which are more prominent from compared to the previous chest x-ray, patient is already on Bumex at home which will be continued IV fluids were discontinued and patient was started on IV Lasix as well and patient is comparing of cough with the chest pain secondary to cough. I'm unable to appreciate any JVD, BNP is only 368. Patient was started on vancomycin infectious diseases pulmonary will be consulted. Review of Systems REVIEW OF SYSTEMS: CONSTITUTIONAL: No fever, no malaise, no fatigue. HEENT: No recent visual problems or hearing problems. Denied any sore throat. CARDIOVASCULAR: No chest pain, orthopnea, PND, no palpitations, no syncope. PULMONARY: As mentioned in HPI GASTROINTESTINAL: No diarrhea, no nausea, no vomiting, no abdominal pain. Normoactive bowel sounds. NEUROLOGICAL: No headaches, no weakness, no numbness. HEMATOLOGICAL: Denies any bleeding or petechiae. GENITOURINARY: Denies any burning micturition, frequency, or urgency. MUSCULOSKELETAL/RHEUMATOLOGICAL: Denies any joint pain, swelling, or any muscle pain. ENDOCRINE: Denies any polyuria or polydipsia. The rest of the 14-point review of systems is negative. 11/27/18 Afebrile, blood cultures negative at 24 hours. Maintaining O2 sats of 94% on 15 L high flow nasal cannula. PICC line placed, tolerated procedure well. 11/28/17 maintained on vancomycin , nebulized bronchodilators. Afebrile, preliminary blood cultures negative. wheezy bronchospastic, continues on 15 L high flow nasal cannula. Patient insisting on bronchoscopy, currently being discussed with pulmonary. Objective - Vital Signs Vital signs: Vital Signs Temp 97.8 F 11/28/17 07:12 Pulse 80 11/28/17 15:44 Resp 26 H 11/28/17 11:29 BP 125/70 11/28/17 07:12 Pulse Ox 97 11/28/17 15:44 Intake & Output 11/27/17 11/28/17 11/28/17 18:59 06:59 18:59 Intake Total 2180 590 960 Balance 2180 590 960 Weight 111.266 kg Intake: Intake, IV Titration 500 Amount Vancomycin 2,000 mg In 500 Sodium Chloride 0.9% 500 ml @ 167 mls/hr IVPB Q8H [facility] Rx#:[id number] Oral 1680 590 960 Other: Voiding Method Bedside Commode Bedside Commode Bedside Commode # Voids 2 2 - Exam GENERAL: The patient is alert and oriented x3, not in any acute distress. Ambulating from bathroom. HEENT: Pupils are round and equally reacting to light. EOMI. No scleral icterus. No conjunctival pallor. Normocephalic, atraumatic, cushingoid. CARDIOVASCULAR: S1 and S2 present. No murmurs, rubs, or gallops. PULMONARY: Mildly improving Rhonchorous breath sounds, minimal scattered expiratory wheezing. ABDOMEN: Soft, nontender, nondistended, normoactive bowel sounds. No palpable organomegaly. MUSCULOSKELETAL: No joint swelling or deformity. EXTREMITIES: No cyanosis, clubbing, or pedal edema. NEUROLOGICAL: Gross neurological examination did not reveal any focal deficits. - Labs CBC & Chem 7: 11/28/17 05:52 11/28/17 05:52 Labs: Abnormal Lab Results - Last 24 Hours (Table) 11/27/17 11/27/17 11/28/17 Range/Units 17:51 20:25 05:52 WBC 13.2 H (3.8-10.6) k/uL Neutrophils # 10.9 H (1.3-7.7) k/uL Sodium (137-145) mmol/L BUN (7-17) mg/dL Glucose (74-99) mg/dL POC Glucose (mg/dL) 281 H 180 H (75-99) mg/dL 11/28/17 11/28/17 11/28/17 Range/Units 05:52 07:23 11:27 WBC (3.8-10.6) k/uL Neutrophils # (1.3-7.7) k/uL Sodium 135 L (137-145) mmol/L BUN 21 H (7-17) mg/dL Glucose 218 H (74-99) mg/dL POC Glucose (mg/dL) 199 H 222 H (75-99) mg/dL Microbiology - Last 24 Hours (Table) 11/25/17 22:48 Blood Culture - Preliminary Blood No Growth after 48 hours Assessment and Plan Assessment: Acute hypoxic and hypercapnic respiratory failure patient does have chronic hypercapnic respiratory failure secondary to COPD exacerbation. -Bronchoscopy with recent MRSA candidate albicans felt pain rule out extracardiac enterococcus in the sputum. -Interstitial markings per chest x-ray probably related to previous sarcoidosis. -Hypertension -History of PE -Morbid obesity probably restrict lung disease -History of PE in the past -Anxiety disorder bipolar disorder. -Pleuritic chest pain secondary to coughing musculoskeletal nature. Plan: Continue on current medication regime ,monitoring and symptomatic treatment. Maintain nebulized bronchodilators, steroids, antibiotics. Scheduled for bronchoscopy tomorrow. The impression and plan of care has been dictated as directed. : I performed a history and examination of this patient, discussed the same with the dictator. I agree with the dictator's note ,documented as a scribe. Any additional findings or plans will be noted.
[2017-11-28 16:57] LABS: Glucose,Whole Blood 292 mg/dL (75-99)
[2017-11-28] MEDS: VANCOMYCIN 1,750 MG in SODIUM CHLORIDE 0.9% 500 ML IVPB SCH (17:29)
[2017-11-28] MEDS ORDERED: diphenhydrAMINE 50 MG/ML 1 ML VIAL IVP STA (18:06)
[2017-11-28 20:19] LABS: Glucose,Whole Blood 316 mg/dL (75-99)
[2017-11-28] MEDS: MIRTAZAPINE 45 MG TABLET PO SCH (20:26)
--- NOTE | 2017-11-28 23:14 | P.PN ---
Subjective Progress Note Date: 11/28/17 This is a 47-year-old female that has multiple medical troubles that includes obesity and sarcoidosis. Is related that she was recently hospitalized at this facility for approximately one week and was treated for pneumonia. Because of ongoing difficulties with tenacious sputum and lack of improvement she was taken to the operating room and bronchoscopy was performed. Therapeutic lavage revealed evidence of large amounts of purulent secretions. After lavage she had a immediate improvement of her status and with this was thought to have evidence of mucous plugging and then was discharged to follow- up in the office. However the patient rapidly had a decline of her status becoming much more short of breath having sputum production and increasing weakness fatigue and malaise and believe that she had developed some fever, leukocytosis, increasing weakness and some alteration of her mental status. She was admitted November 12 to the and seen by pulmonary critical care as well as neurology. Infectious diseases was consulted at that time and patient was discharged home with Diflucan and Bactrim for 14 day course. She was subsequently directly admitted for COPD exacerbation from November 22 13 November 24 and signed herself out AMA due to pain control issues. Patient states that her breathing continued to worsen at home and she returned to [facility] emergency center. She was afebrile with a white count of 13.5, potassium 2.9 status post replacement, creatinine 0.6. AST 55 and ALT 54. Blood culture was obtained. Chest x-ray showed interstitial pulmonary edema appears worse than prior. Could be pulmonary interstitial fibrosis. No pleural fluid. She was started on Diflucan and vancomycin and admitted to the [facility] floor. Patient is followed by Dr. Noyola. 11/28/2017 patient still feels very poorly. She complains of being very short of breath, his weakness fatigue malaise and sweats. She has had a conversation with pulmonary critical care and bronchoscopy will be performed for both diagnostic and therapeutic reasons. If she does not rapidly improve would consider transfer to tertiary center. Objective - Vital Signs Vital signs: Vital Signs Temp 97.8 F 11/28/17 21:00 Pulse 79 11/28/17 21:00 Resp 17 11/28/17 21:00 BP 112/78 11/28/17 21:00 Pulse Ox 97 11/28/17 21:00 Intake & Output 11/28/17 11/28/17 11/29/17 06:59 18:59 06:59 Intake Total 590 2180 Balance 590 2180 Weight 111.266 kg Intake: Intake, IV Titration 500 Amount Vancomycin 1,750 mg In 500 Sodium Chloride 0.9% 500 ml @ 167 mls/hr IVPB Q8HR [facility] Rx#:[id number] Oral 590 1680 Other: Voiding Method Bedside Commode Bedside Commode # Voids 2 3 - Exam 47-year-old female who has obesity. Patient is sitting up in bed and appears to be mostly comfortable. Mild respiratory distress with talking. HEENT: Anicteric conjunctiva are pink and moist nasal mucosa grossly intact without significant lesions, there is no thrush. Neck: The neck is supple without significant lymphadenopathy or thyromegaly. Lungs: Symmetrical air entry is noted, expiratory wheezes are scattered throughout with no true bronchial sounds no dullness or egophony Heart: Regular rate and rhythm with an audible S1-S2, no S3 no S4. There is no significant murmur click or rub, PMI was nondisplaced. Tenderness to the right lower lateral/anterior ribs. Abdomen: Obese, Positive bowel sounds soft and nontender without palpable masses or organomegaly. There was no guarding or rebound. Extremities: The upper extremities have excellent pulses they are symmetric, no significant petechiae or telangiectasia. No splinter hemorrhages were noted. The lower extremities have only trace pedal edema The peripheral pulses were 2+ and symmetric. Neuro: Awake alert oriented to person place and time. There are no acute new gross focal sensory motor deficits. - Labs CBC & Chem 7: 11/28/17 05:52 11/28/17 05:52 Labs: Abnormal Lab Results - Last 24 Hours (Table) 11/28/17 11/28/17 11/28/17 Range/Units 05:52 05:52 07:23 WBC 13.2 H (3.8-10.6) k/uL Neutrophils # 10.9 H (1.3-7.7) k/uL Sodium 135 L (137-145) mmol/L BUN 21 H (7-17) mg/dL Glucose 218 H (74-99) mg/dL POC Glucose (mg/dL) 199 H (75-99) mg/dL 11/28/17 11/28/17 11/28/17 Range/Units 11:27 16:56 20:10 WBC (3.8-10.6) k/uL Neutrophils # (1.3-7.7) k/uL Sodium (137-145) mmol/L BUN (7-17) mg/dL Glucose (74-99) mg/dL POC Glucose (mg/dL) 222 H 292 H 316 H (75-99) mg/dL Microbiology - Last 24 Hours (Table) 11/25/17 22:48 Blood Culture - Preliminary Blood No Growth after 48 hours Laboratory Results WBC 13.2 k/uL (3.8-10.6) H 11/28/17 05:52 RBC 4.63 m/uL (3.80-5.40) 11/28/17 05:52 Hgb 13.6 gm/dL (11.4-16.0) 11/28/17 05:52 Hct 41.2 % (34.0-46.0) 11/28/17 05:52 MCV 88.9 fL (80.0-100.0) 11/28/17 05:52 MCH 29.3 pg (25.0-35.0) 11/28/17 05:52 MCHC 33.0 g/dL (31.0-37.0) 11/28/17 05:52 RDW 13.9 % (11.5-15.5) 11/28/17 05:52 Plt Count 317 k/uL (150-450) 11/28/17 05:52 Neutrophils % 82 % 11/28/17 05:52 Lymphocytes % 12 % 11/28/17 05:52 Monocytes % 4 % 11/28/17 05:52 Eosinophils % 1 % 11/28/17 05:52 Basophils % 0 % 11/28/17 05:52 Neutrophils # 10.9 k/uL (1.3-7.7) H 11/28/17 05:52 Lymphocytes # 1.6 k/uL (1.0-4.8) 11/28/17 05:52 Monocytes # 0.5 k/uL (0-1.0) 11/28/17 05:52 Eosinophils # 0.2 k/uL (0-0.7) 11/28/17 05:52 Basophils # 0.0 k/uL (0-0.2) 11/28/17 05:52 PT 12.8 sec (9.0-12.0) H 11/25/17 22:48 INR 1.4 (<1.2) H 11/25/17 22:48 APTT 24.2 sec (22.0-30.0) 11/25/17 22:48 Sodium 135 mmol/L (137-145) L 11/28/17 05:52 Potassium 3.9 mmol/L (3.5-5.1) 11/28/17 05:52 Chloride 100 mmol/L (98-107) 11/28/17 05:52 Carbon Dioxide 30 mmol/L (22-30) 11/28/17 05:52 Anion Gap 5 mmol/L 11/28/17 05:52 BUN 21 mg/dL (7-17) H 11/28/17 05:52 Creatinine 0.70 mg/dL (0.52-1.04) 11/28/17 05:52 Est GFR (CKD-EPI)AfAm >90 (>60 ml/min/1.73 sqM) 11/28/17 05:52 Est GFR (CKD-EPI)NonAf >90 (>60 ml/min/1.73 sqM) 11/28/17 05:52 Glucose 218 mg/dL (74-99) H 11/28/17 05:52 POC Glucose (mg/dL) 316 mg/dL (75-99) H 11/28/17 20:10 POC Glu Mushroom Grower ID Kizzy Lujan 11/28/17 20:[address] Glu mg/dL 126 11/25/17 22:48 Hemoglobin A1c 6.0 % (4.0-6.0) 11/25/17 22:48 Calcium 8.9 mg/dL (8.4-10.2) 11/28/17 05:52 Magnesium 1.5 mg/dL (1.6-2.3) L 11/25/17 22:48 Total Bilirubin 0.7 mg/dL (0.2-1.3) 11/25/17 22:48 AST 55 U/L (14-36) H 11/25/17 22:48 ALT 54 U/L (9-52) H 11/25/17 22:48 Alkaline Phosphatase 95 U/L (38-126) 11/25/17 22:48 Total Creatine Kinase 36 U/L (30-135) 11/25/17 22:48 CK-MB (CK-2) 0.6 ng/mL (0.0-2.4) 11/25/17 22:48 CK-MB (CK-2) Rel Index 1.7 11/25/17 22:48 Troponin I <0.012 ng/mL (0.000-0.034) 11/25/17 22:48 NT-Pro-B Natriuret Pep 368 pg/mL 11/25/17 22:48 Total Protein 6.5 g/dL (6.3-8.2) 11/25/17 22:48 Albumin 3.7 g/dL (3.5-5.0) 11/25/17 22:48 Vancomycin Trough 22.7 ug/mL 11/28/17 05:52 Microbiology 11/25/17 22:48 Blood Blood Culture - Preliminary No Growth after 48 hours Assessment and Plan (1) Acute exacerbation of chronic bronchitis Narrative/Plan: Patient was recently hospitalized, but left [facility] because of frustration. Today made it clear that the team is communicating and striving to develop an active plan given the declining status. She is now on high flow oxygen and multiple breathing treatments and antimicrobials. The vanco and fluconazole continue for now. If she does not rapidly improve, would suggest evaluation by the [facility] ILD service. Trying to limit opportunities for patient to manipulate the different consultants, does like IV Benadryl before Vanco and is not unreasonable at this time. November 28 2017, patient has been seen by pulmonary critical care and there are plans for bronchoscopy tomorrow for therapeutic and diagnostic concerns. Continue current antimicrobial therapy and monitor her cultures. She is certainly a bit less anxious since bronchoscopy has been planned for tomorrow. She does have PICC line in place. Current Visit: Yes Status: Acute Code(s): J20.9 - ACUTE BRONCHITIS, UNSPECIFIED SNOMED Code(s): 705943000
[2017-11-29] MEDS: VANCOMYCIN 1,750 MG in SODIUM CHLORIDE 0.9% 500 ML IVPB SCH ×4 (00:56→23:27)
[2017-11-29] MEDS: methylPREDNISolone SOD SUCCI 125 MG/2 ML VIAL IV SCH ×5 (00:56→23:27)
[2017-11-29 06:59] LABS: Glucose,Whole Blood 164 mg/dL (75-99)
[2017-11-29] MEDS: IPRATROPIUM-ALBUTEROL 3 ML NEB INHALATION SCH ×4 (07:16→19:40)
[2017-11-29] MEDS: BUDESONIDE 1 MG/2 ML NEBU INHALATION SCH ×2 (07:16→19:40)
[2017-11-29] MEDS: FORMOTEROL FUMARATE 20 MCG/2 ML NEBU INHALATION SCH ×2 (07:16→19:40)
[2017-11-29] MEDS: INSULIN ASPART 100 UNIT/ML 1 ML 10 ML VIAL SQ SCH ×4 (07:54→21:28)
[2017-11-29] MEDS: lamoTRIgine 100 MG TAB PO SCH (07:55)
[2017-11-29] MEDS: METOPROLOL TARTRATE 50 MG TAB PO SCH ×2 (07:56→21:29)
[2017-11-29 07:57] LABS: Anion Gap 2 mmol/L; Blood Urea Nitrogen 17 mg/dL (7-17); Calcium 8.9 mg/dL (8.4-10.2); Carbon Dioxide 31 mmol/L (22-30); Chloride 102 mmol/L (98-107); Glucose 198 mg/dL (74-99); Sodium 135 mmol/L (137-145)
[2017-11-29] MEDS: BUMETANIDE 1 MG TAB PO SCH ×2 (08:21→13:54)
[2017-11-29] MEDS: ALPRAZolam 0.5 MG TAB PO PRN ×2 (08:21→22:14)
[2017-11-29] MEDS: diphenhydrAMINE 50 MG CAP PO PRN ×2 (08:49→17:29)
[2017-11-29] MEDS: LACTULOSE 20 GM/30 ML CUP PO SCH ×4 (08:51→21:41)
[2017-11-29] MEDS: NYSTATIN 100,000 UNIT/GM POWD 15 GM TOPICAL SCH ×2 (08:52→21:29)
[2017-11-29 11:15] LABS: Glucose,Whole Blood 207 mg/dL (75-99)
[2017-11-29] MEDS ORDERED: KETAMINE 10 MG/ML 20 ML VIAL ONE (12:29)
[2017-11-29] MEDS ORDERED: PROPOFOL 10 MG/ML 20 ML VIAL IV ONE (12:29)
[2017-11-29] MEDS ORDERED: LIDOCAINE 1% INJ 10MG/ML (20 ML MDV) ONE (12:29)
[2017-11-29] MEDS ORDERED: LACTATED RINGERS 1,000 ML IV ONE (12:30)
[2017-11-29] MEDS ORDERED: LIDOCAINE 2% INJ 20 MG/ML INTRATRACH ONE (12:40)
[2017-11-29 13:20] LABS: Glucose,Whole Blood 182 mg/dL (75-99)
[2017-11-29] MEDS: SENNOSIDES-DOCUSATE SODIUM 1 EACH TAB PO SCH ×2 (13:46→21:28)
--- NOTE | 2017-11-29 13:50 | P.PN ---
Subjective Progress Note Date: 11/29/17 Progress note being dictated for Dr. Zepeda Interval history:Patient is a known patient to us, was admitted couple days ago for severe bronchitis with COPD exacerbation, left [facility] came back to the hospital because of severe hypoxemia requiring about the 12th 50 L of oxygen. Patient has multiple medical problems including advanced COPD multiple hospitalizations because of that patient had severe tracheobronchitis with the sputum positive for MRSA, enterococcus, Lou in the past. Patient was on IV vancomycin in the past. She is also company of cough with thick sputum production chest x-ray, showing chronic interstitial changes which are more prominent from compared to the previous chest x-ray, patient is already on Bumex at home which will be continued IV fluids were discontinued and patient was started on IV Lasix as well and patient is comparing of cough with the chest pain secondary to cough. I'm unable to appreciate any JVD, BNP is only 368. Patient was started on vancomycin infectious diseases pulmonary will be consulted. Review of Systems REVIEW OF SYSTEMS: CONSTITUTIONAL: No fever, no malaise, no fatigue. HEENT: No recent visual problems or hearing problems. Denied any sore throat. CARDIOVASCULAR: No chest pain, orthopnea, PND, no palpitations, no syncope. PULMONARY: As mentioned in HPI GASTROINTESTINAL: No diarrhea, no nausea, no vomiting, no abdominal pain. Normoactive bowel sounds. NEUROLOGICAL: No headaches, no weakness, no numbness. HEMATOLOGICAL: Denies any bleeding or petechiae. GENITOURINARY: Denies any burning micturition, frequency, or urgency. MUSCULOSKELETAL/RHEUMATOLOGICAL: Denies any joint pain, swelling, or any muscle pain. ENDOCRINE: Denies any polyuria or polydipsia. The rest of the 14-point review of systems is negative. 11/27/18 Afebrile, blood cultures negative at 24 hours. Maintaining O2 sats of 94% on 15 L high flow nasal cannula. PICC line placed, tolerated procedure well. 11/28/17 maintained on vancomycin , nebulized bronchodilators. Afebrile, preliminary blood cultures negative. wheezy bronchospastic, continues on 15 L high flow nasal cannula. Patient insisting on bronchoscopy, currently being discussed with pulmonary. 11/29/17 resting comfortably, awaiting bronchoscopy. Maintaining O2 sats of high 90s on 15 L high flow nasal cannula. Objective - Vital Signs Vital signs: Vital Signs Temp 97.7 F 11/29/17 05:00 Pulse 76 11/29/17 11:02 Resp 17 11/29/17 05:00 BP 116/65 11/29/17 05:00 Pulse Ox 96 11/29/17 05:00 Intake & Output 11/28/17 11/29/17 11/29/17 18:59 06:59 18:59 Intake Total 2180 500 Balance 2180 500 Weight 111.266 kg Intake: Intake, IV Titration 500 500 Amount Vancomycin 1,750 mg In 500 500 Sodium Chloride 0.9% 500 ml @ 167 mls/hr IVPB Q8HR [facility] Rx#:[id number] Oral 1680 Other: Voiding Method Bedside Commode Toilet Toilet # Voids 3 1 # Bowel Movements 1 - Exam GENERAL: The patient is resting comfortably, no acute distress. Alert and oriented 3 HEENT: Pupils are round and equally reacting to light. EOMI. No scleral icterus. No conjunctival pallor. Normocephalic, atraumatic, cushingoid. CARDIOVASCULAR: S1 and S2 present. No murmurs, rubs, or gallops. PULMONARY: Mildly improving Rhonchorous breath sounds. ABDOMEN: Soft, nontender, nondistended, normoactive bowel sounds. No palpable organomegaly. MUSCULOSKELETAL: No joint swelling or deformity. EXTREMITIES: No cyanosis, clubbing, or pedal edema. NEUROLOGICAL: Gross neurological examination did not reveal any focal deficits. - Labs CBC & Chem 7: 11/28/17 05:52 11/29/17 07:26 Labs: Abnormal Lab Results - Last 24 Hours (Table) 11/28/17 11/28/17 11/29/17 Range/Units 16:56 20:10 06:57 Sodium (137-145) mmol/L Carbon Dioxide (22-30) mmol/L Glucose (74-99) mg/dL POC Glucose (mg/dL) 292 H 316 H 164 H (75-99) mg/dL 11/29/17 11/29/17 Range/Units 07:26 11:13 Sodium 135 L (137-145) mmol/L Carbon Dioxide 31 H (22-30) mmol/L Glucose 198 H (74-99) mg/dL POC Glucose (mg/dL) 207 H (75-99) mg/dL Microbiology - Last 24 Hours (Table) 11/25/17 22:48 Blood Culture - Preliminary Blood No Growth after 72 hours Assessment and Plan Assessment: Acute hypoxic and hypercapnic respiratory failure patient does have chronic hypercapnic respiratory failure secondary to COPD exacerbation. -Bronchoscopy with recent MRSA candidate albicans felt pain rule out extracardiac enterococcus in the sputum. -Interstitial markings per chest x-ray probably related to previous sarcoidosis. -Hypertension -History of PE -Morbid obesity probably restrict lung disease -History of PE in the past -Anxiety disorder bipolar disorder. -Pleuritic chest pain secondary to coughing musculoskeletal nature. Plan: Continue on current medication regime ,monitoring and symptomatic treatment. Bronchoscopy pending. Maintain nebulized bronchodilators, steroids, antibiotics. The impression and plan of care has been dictated as directed. : I performed a history and examination of this patient, discussed the same with the dictator. I agree with the dictator's note ,documented as a scribe. Any additional findings or plans will be noted.
[2017-11-29] MEDS: FLUCONAZOLE 100 MG TAB PO SCH (13:54)
[2017-11-29] MEDS: POTASSIUM CHLORIDE ER 20 MEQ TAB.ER PO SCH (13:54)
[2017-11-29] MEDS: guaiFENesin 600 MG TABLET.ER PO SCH ×2 (13:55→21:29)
[2017-11-29] MEDS: PREGABALIN 75 MG CAP PO SCH ×2 (13:55→21:27)
[2017-11-29] MEDS: busPIRone HCl 10 MG TAB PO SCH ×2 (13:55→21:28)
[2017-11-29] MEDS: FLUoxetine HCL 20 MG CAP PO SCH (13:55)
[2017-11-29] MEDS: HYDROcodone/APAP 7.5-325MG 1 EACH TAB PO PRN ×2 (13:56→21:28)
[2017-11-29] MEDS: ONDANSETRON 4 MG TAB PO PRN (13:56)
--- NOTE | 2017-11-29 14:43 | P.PN ---
Subjective Progress Note Date: 11/29/17 Principal diagnosis: Acute exacerbation of chronic obstructive pulmonary disease This is a 47-year-old female with known history of COPD, chronic smoker, history of interstitial lung disease secondary to sarcoidosis which was supposedly biopsy-proven at [facility]. History of multiple admissions to the hospital with acute on chronic hypoxic respiratory failure secondary to COPD exacerbation and interstitial lung disease. History of MRSA infection, Enterococcus faecalis infection and strep species infections. Patient was recently admitted to the hospital, but she left AGAINST MEDICAL ADVICE, but she was readmitted again on Sunday when she presented back to the ER with cough wheezing shortness of breath. Apparently the patient was upset because she was not given in medications, and she was not receiving vancomycin as she requested. Patient was seen by Dr. Lott on consultation, and he did not feel the need for vancomycin, without any specific culture. From previous bronchoalveolar lavage, the patient had combinations of MRSA Enterococcus faecalis and strep species. But no bronchoalveolar lavage and bronchoscopy done on this admission. At any rate patient was seen on consultation by Dr. Hicks, and she was placed empirically on antibiotics, bronchodilators, steroids, and apparently she was not making much improvement. This time she was readmitted, her chest x-ray continues to show interstitial lung disease, seen by the hospitalist started the patient empirically on vancomycin. Labs on admission showed leukocytosis, WBC count of 13.5. Her potassium was low at 2.9. Otherwise the remaining labs were unremarkable. Patient had mostly cough wheezing shortness of breath, no documented fever, no chills, no hemoptysis, she does have some vague chest wall pain, no headaches or blurred vision dizziness, no nausea vomiting abdominal pain melena or hematemesis. No dysuria frequency or urgency. Patient was reevaluated today on 11/27/2017, slight improvement over the last 24 hours, less wheezing but continues to cough continuously. Hence cough suppressant was added. Patient pleased feels better since she was started back on her bronchodilators, steroids, and remains on antibiotics in the form of vancomycin. Patient was given instructions to at least give us a sample of sputum for cultures. All her meds were reviewed, considering slight improvement noted over the last 24 hours, I am a bit reluctant to perform bronchoscopy at this point. Patient is even sounding better compared to how she sounded yesterday on physical examination. WBC count is 8.2 hemoglobin is 13.8 electrolytes and renal profile are normal. The patient is seen again today 11/28/2017 in follow-up on the regular medical floor. She continues to have dyspnea on minimal exertion. She states her O2 saturations went down into the 40s while off her oxygen during the night but did recover with 15 L high flow nasal cannula. She still quite bronchospastic and wheezing today. White count 13.2. Hemoglobin 13.6. Creatinine 0.70. Blood culture reveals no growth to date. She is currently on vancomycin. The patient is seen again today 11/29/2017 in follow-up on the regular medical floor. She has ongoing complaints of shortness of breath, cough or congestion. Requesting multiple pain medications for chest wall pain. She continues to require 15 L high flow nasal cannula to maintain O2 saturations in the 90s. She 's been afebrile. Hemodynamically stable. Blood cultures reveal no growth. She remains on vancomycin. She did undergo bronchoscopy with BAL with Dr. Noyola today. Tolerated the procedure well. Cultures are pending. Objective - Vital Signs Vital signs: Vital Signs Temp 97.7 F 11/29/17 05:00 Pulse 76 11/29/17 11:02 Resp 17 11/29/17 05:00 BP 116/65 11/29/17 05:00 Pulse Ox 96 11/29/17 05:00 Intake & Output 11/28/17 11/29/17 11/29/17 18:59 06:59 18:59 Intake Total 2180 500 200 Balance 2180 500 200 Weight 111.266 kg Intake: IV 200 Intake, IV Titration 500 500 Amount Vancomycin 1,750 mg In 500 500 Sodium Chloride 0.9% 500 ml @ 167 mls/hr IVPB Q8HR [facility] Rx#:[id number] Oral 1680 Other: Voiding Method Bedside Commode Toilet Toilet # Voids 3 1 # Bowel Movements 1 - Exam Physical Exam: Revealed a 47-year-old female, morbidly obese, in mild respiratory distress. Head: Atraumatic, cushingoid, normocephalic. HEENT:[Neck is supple.] [No neck masses.] [No thyromegaly.] [No JVD.] Chest: [Symmetrical chest expansion, diffuse rhonchi and wheezes bilaterally. Cardiac Exam: [Distant S1 and S2, no S3 gallop, no murmur.] Abdomen: Obese, [Soft, nontender, no megaly, no rebound, no guarding, normal bowel sounds.] Extremities: [No clubbing, no edema, no cyanosis.] Neurological Exam: [No focal neurologic deficit.] Lymphatics: No lymphadenopathy. Psychiatric: Normal mood affect and mental status examination. - Labs CBC & Chem 7: 11/28/17 05:52 11/29/17 07:26 Labs: Abnormal Lab Results - Last 24 Hours (Table) 11/28/17 11/28/17 11/29/17 Range/Units 16:56 20:10 06:57 Sodium (137-145) mmol/L Carbon Dioxide (22-30) mmol/L Glucose (74-99) mg/dL POC Glucose (mg/dL) 292 H 316 H 164 H (75-99) mg/dL 11/29/17 11/29/17 11/29/17 Range/Units 07:26 11:13 13:18 Sodium 135 L (137-145) mmol/L Carbon Dioxide 31 H (22-30) mmol/L Glucose 198 H (74-99) mg/dL POC Glucose (mg/dL) 207 H 182 H (75-99) mg/dL Microbiology - Last 24 Hours (Table) 11/25/17 22:48 Blood Culture - Preliminary Blood No Growth after 72 hours Assessment and Plan Assessment: Impression: #1. Acute COPD exacerbation with secondary shortness of breath. The patient was in the hospital approximately 3 weeks ago treated for an acute COPD exacerbation a bronchoscopy back then showed a combination of MRSA, Enterococcus faecalis and strep. Obviously MRSA has been there the past and cultures and previous bronchoscopies. The patient took Bactrim on outpatient basis and she's coming in with similar symptoms of COPD exacerbation, and failed to recover on outpatient basis. Repeat bronchoscopy with BAL performed today 11/29/2017. Cultures pending. #2. Musculoskeletal right-sided chest wall pain secondary to cough. Chest x- ray shows increased interstitial markings probably related to a previous sarcoidosis. #3. Chronic hypoxic respiratory failure secondary to above #4. Sarcoidosis, confirmed by lung biopsy at [facility] 2014, treated with systemic steroids that was ultimately weaned off and discontinued #5. History of pulmonary embolisms in 2011, 2016, DVTs, currently on anticoagulation with Coumadin, with therapeutic PT/INR #6. Nicotine addiction, ongoing, currently down to 2 cigarettes per day, carries over [id number]-wege smoking history #7. Obesity with features of obstructive sleep apnea #8. Anxiety #9. CAD, history of myocardial infarction #10. Recurrent hospitalizations for respiratory complications #11. Bipolar disorder #12. Degenerative disc disease #13. Hypertension #14. Hyperlipidemia #15. Fibromyalgia Plan: The patient was seen and evaluated by Dr. Noyola. She is currently receiving 15 L high flow nasal cannula to maintain O2 saturations in the 90s. She is on vancomycin. She did undergo bronchoscopy with BAL today. Tolerated the procedure well. Cultures are pending. Continue her current medications. We will continue to follow and make further recommendations based on her clinical status. I, the cosigning physician, performed a history & physical examination of the patient. Lungs sounds bilateral wheezing, diminished. Maintaining good O2 saturations in the 90s on 15 L high flow nasal cannula. I discussed the assessment and plan of care with my nurse practitioner, Nicki Roper. I attest to the above note as dictated by her.
--- NOTE | 2017-11-29 15:19 | PCN ---
PROCEDURE NOTE OPERATIVE REPORT: Bronchoscopy and bronchoalveolar lavage of the left upper lobe and lingula. PREOPERATIVE DIAGNOSES: Acute exacerbation of chronic obstructive pulmonary disease, failure to improve, suspect underlying pneumonia involving the left upper lobe and lingula. POSTOPERATIVE DIAGNOSES: Acute exacerbation of chronic obstructive pulmonary disease, failure to improve, suspect underlying pneumonia involving the left upper lobe and lingula. ANESTHESIA USED: IV conscious sedation. PROCEDURE: The patient was prepared according to the bronchoscopy protocol. O2 was applied via nasal cannula, and we monitored her O2 saturation continuously, blood pressure was intermittently monitored, and cardiac rhythm was continuously monitored. Then after adequate IV conscious sedation, the left naris was anesthetized with topical lidocaine. Then, the bronchoscope was advanced through the left naris down to the area of the vocal cords, which were noted to be patent. Lidocaine applied over the vocal cords, the bronchoscope was advanced further down through the vocal cords into the trachea. Thorough examination done of the trachea, julianne, right upper lobe, right middle lobe, right lower lobe, left upper lobe lingula and left lower lobe. There were scattered purulent secretions mostly in the trachea, left mainstem bronchus, and somewhat in the right middle lobe and right lower lobe. Bronchoscope was wedged into the lingula, lavage was done from the lingula, and another lavage was added to the previous lavage from the left upper lobe. Then, all the other areas were suctioned, and the specimen was not collected from other areas. The procedure was well tolerated, no evidence of any immediate complications. The fluid was sent for different diagnostic studies. MMODL / IJN: [id number] /
[2017-11-29 17:14] LABS: Glucose,Whole Blood 145 mg/dL (75-99)
[2017-11-29] MEDS: MORPHINE SULFATE ER 30 MG TABLET PO PRN (17:39)
[2017-11-29 19:16] LABS: Appearance,BF Blood Tinged; Nucleated Cells, Body Fluid 980 /uL; RBC, Body Fluid 1925 /uL
[2017-11-29 19:17] LABS: Mononuclear WBC,Body Fluid 5 %; Polynuclear WBC,Body Fluid 95 %
[2017-11-29 20:34] LABS: Glucose,Whole Blood 316 mg/dL (75-99)
[2017-11-29] MEDS: MIRTAZAPINE 45 MG TABLET PO SCH (21:29)
[2017-11-30] MEDS: MORPHINE SULFATE ER 30 MG TABLET PO PRN ×2 (01:30→12:48)
[2017-11-30] MEDS: methylPREDNISolone SOD SUCCI 125 MG/2 ML VIAL IV SCH ×4 (06:19→21:40)
[2017-11-30 06:53] LABS: Glucose,Whole Blood 287 mg/dL (75-99)
[2017-11-30 07:28] LABS: Anion Gap 7 mmol/L; Blood Urea Nitrogen 23 mg/dL (7-17); Calcium 9.1 mg/dL (8.4-10.2); Carbon Dioxide 33 mmol/L (22-30); Chloride 102 mmol/L (98-107); Glucose 288 mg/dL (74-99); Potassium 3.7 mmol/L (3.5-5.1); Sodium 142 mmol/L (137-145)
[2017-11-30] MEDS: BUDESONIDE 1 MG/2 ML NEBU INHALATION SCH ×2 (08:07→20:58)
[2017-11-30] MEDS: FORMOTEROL FUMARATE 20 MCG/2 ML NEBU INHALATION SCH ×2 (08:07→20:58)
[2017-11-30] MEDS: IPRATROPIUM-ALBUTEROL 3 ML NEB INHALATION SCH ×4 (08:08→20:58)
[2017-11-30] MEDS: INSULIN ASPART 100 UNIT/ML 1 ML 10 ML VIAL SQ SCH ×4 (08:13→21:39)
[2017-11-30] MEDS: VANCOMYCIN 1,750 MG in SODIUM CHLORIDE 0.9% 500 ML IVPB SCH ×2 (08:16→17:37)
[2017-11-30] MEDS: BUMETANIDE 1 MG TAB PO SCH ×2 (10:22→12:31)
[2017-11-30] MEDS: busPIRone HCl 10 MG TAB PO SCH ×2 (10:23→21:39)
[2017-11-30] MEDS: FLUCONAZOLE 100 MG TAB PO SCH (10:25)
[2017-11-30] MEDS: guaiFENesin 600 MG TABLET.ER PO SCH ×2 (10:26→21:39)
[2017-11-30] MEDS: FLUoxetine HCL 20 MG CAP PO SCH (10:26)
[2017-11-30] MEDS: LACTULOSE 20 GM/30 ML CUP PO SCH ×3 (10:27→21:36)
[2017-11-30] MEDS: lamoTRIgine 100 MG TAB PO SCH (10:27)
[2017-11-30] MEDS: NYSTATIN 100,000 UNIT/GM POWD 15 GM TOPICAL SCH ×2 (10:29→21:46)
[2017-11-30] MEDS: POTASSIUM CHLORIDE ER 20 MEQ TAB.ER PO SCH (10:29)
[2017-11-30] MEDS: METOPROLOL TARTRATE 50 MG TAB PO SCH ×2 (10:29→21:39)
[2017-11-30] MEDS: SENNOSIDES-DOCUSATE SODIUM 1 EACH TAB PO SCH ×2 (10:31→21:36)
[2017-11-30] MEDS: HYDROcodone/APAP 7.5-325MG 1 EACH TAB PO PRN (10:38)
[2017-11-30] MEDS: PREGABALIN 75 MG CAP PO SCH ×2 (10:39→21:38)
[2017-11-30 11:43] LABS: Glucose,Whole Blood 241 mg/dL (75-99)
--- NOTE | 2017-11-30 14:10 | P.PN ---
Subjective Progress Note Date: 11/30/17 This is a 47-year-old female that has multiple medical troubles that includes obesity and sarcoidosis. Is related that she was recently hospitalized at this facility for approximately one week and was treated for pneumonia. Because of ongoing difficulties with tenacious sputum and lack of improvement she was taken to the operating room and bronchoscopy was performed. Therapeutic lavage revealed evidence of large amounts of purulent secretions. After lavage she had a immediate improvement of her status and with this was thought to have evidence of mucous plugging and then was discharged to follow- up in the office. However the patient rapidly had a decline of her status becoming much more short of breath having sputum production and increasing weakness fatigue and malaise and believe that she had developed some fever, leukocytosis, increasing weakness and some alteration of her mental status. She was admitted November 12 to the and seen by pulmonary critical care as well as neurology. Infectious diseases was consulted at that time and patient was discharged home with Diflucan and Bactrim for 14 day course. She was subsequently directly admitted for COPD exacerbation from November 22 13 November 24 and signed herself out AMA due to pain control issues. Patient states that her breathing continued to worsen at home and she returned to [facility]. She was afebrile with a white count of 13.5, potassium 2.9 status post replacement, creatinine 0.6. AST 55 and ALT 54. Blood culture was obtained. Chest x-ray showed interstitial pulmonary edema appears worse than prior. Could be pulmonary interstitial fibrosis. No pleural fluid. She was started on Diflucan and vancomycin and admitted to the Medr floor. Patient is followed by Dr. Noyola. 11/28/2017 patient still feels very poorly. She complains of being very short of breath, his weakness fatigue malaise and sweats. She has had a conversation with pulmonary critical care and bronchoscopy will be performed for both diagnostic and therapeutic reasons. If she does not rapidly improve would consider transfer to tertiary center.. 11/30/2017 she is status post bronchoscopy. She is quite sleepy but arousable. She is down to 6 L high flow which is improved from 15. Specimens are all pending at this point in time negative so far. Objective - Vital Signs Vital signs: Vital Signs Temp 98.3 F 11/30/17 11:10 Pulse 80 11/30/17 12:18 Resp 18 11/30/17 07:10 BP 134/98 11/30/17 11:10 Pulse Ox 98 11/30/17 11:10 Intake & Output 11/29/17 11/30/17 11/30/17 18:59 06:59 18:59 Intake Total 200 1500 Balance 200 1500 Weight 114.441 kg Intake: IV 200 Intake, IV Titration 1500 Amount Vancomycin 1,750 mg In 1500 Sodium Chloride 0.9% 500 ml @ 167 mls/hr IVPB Q8HR [facility] Rx#:[id number] Other: Voiding Method Toilet Toilet Toilet Bedside Commode # Voids 3 # Bowel Movements 1 - Exam 47-year-old female who has obesity. Patient is sitting up in bed and appears to be mostly comfortable. Mild respiratory distress with talking. HEENT: Anicteric conjunctiva are pink and moist nasal mucosa grossly intact without significant lesions, there is no thrush. Neck: The neck is supple without significant lymphadenopathy or thyromegaly. Lungs: Symmetrical air entry is noted, expiratory wheezes are scattered throughout with no true bronchial sounds no dullness or egophony Heart: Regular rate and rhythm with an audible S1-S2, no S3 no S4. There is no significant murmur click or rub, PMI was nondisplaced. Tenderness to the right lower lateral/anterior ribs. Abdomen: Obese, Positive bowel sounds soft and nontender without palpable masses or organomegaly. There was no guarding or rebound. Extremities: The upper extremities have excellent pulses they are symmetric, no significant petechiae or telangiectasia. No splinter hemorrhages were noted. The lower extremities have only trace pedal edema The peripheral pulses were 2+ and symmetric. Neuro: Awake alert oriented to person place and time. There are no acute new gross focal sensory motor deficits. - Labs CBC & Chem 7: 11/28/17 05:52 11/30/17 06:59 Labs: Abnormal Lab Results - Last 24 Hours (Table) 11/29/17 11/29/17 11/30/17 Range/Units 17:12 20:32 06:51 Carbon Dioxide (22-30) mmol/L BUN (7-17) mg/dL Glucose (74-99) mg/dL POC Glucose (mg/dL) 145 H 316 H 287 H (75-99) mg/dL 11/30/17 11/30/17 Range/Units 06:59 11:42 Carbon Dioxide 33 H (22-30) mmol/L BUN 23 H (7-17) mg/dL Glucose 288 H (74-99) mg/dL POC Glucose (mg/dL) 241 H (75-99) mg/dL Microbiology - Last 24 Hours (Table) 11/29/17 12:45 Gram Stain - Preliminary Bronchial Washings - Left Bronchial Washings Culture - Preliminary 11/29/17 12:45 Acid Fast Bacilli Culture - Preliminary Bronchial Washings - Left 11/29/17 12:45 Fungal Culture - Preliminary Bronchial Washings - Left 11/25/17 22:48 Blood Culture - Preliminary Blood No Growth after 96 hours Laboratory Results WBC 13.2 k/uL (3.8-10.6) H 11/28/17 05:52 RBC 4.63 m/uL (3.80-5.40) 11/28/17 05:52 Hgb 13.6 gm/dL (11.4-16.0) 11/28/17 05:52 Hct 41.2 % (34.0-46.0) 11/28/17 05:52 MCV 88.9 fL (80.0-100.0) 11/28/17 05:52 MCH 29.3 pg (25.0-35.0) 11/28/17 05:52 MCHC 33.0 g/dL (31.0-37.0) 11/28/17 05:52 RDW 13.9 % (11.5-15.5) 11/28/17 05:52 Plt Count 317 k/uL (150-450) 11/28/17 05:52 Neutrophils % 82 % 11/28/17 05:52 Lymphocytes % 12 % 11/28/17 05:52 Monocytes % 4 % 11/28/17 05:52 Eosinophils % 1 % 11/28/17 05:52 Basophils % 0 % 11/28/17 05:52 Neutrophils # 10.9 k/uL (1.3-7.7) H 11/28/17 05:52 Lymphocytes # 1.6 k/uL (1.0-4.8) 11/28/17 05:52 Monocytes # 0.5 k/uL (0-1.0) 11/28/17 05:52 Eosinophils # 0.2 k/uL (0-0.7) 11/28/17 05:52 Basophils # 0.0 k/uL (0-0.2) 11/28/17 05:52 PT 12.8 sec (9.0-12.0) H 11/25/17 22:48 INR 1.4 (<1.2) H 11/25/17 22:48 APTT 24.2 sec (22.0-30.0) 11/25/17 22:48 Sodium 142 mmol/L (137-145) 11/30/17 06:59 Potassium 3.7 mmol/L (3.5-5.1) 11/30/17 06:59 Chloride 102 mmol/L (98-107) 11/30/17 06:59 Carbon Dioxide 33 mmol/L (22-30) H 11/30/17 06:59 Anion Gap 7 mmol/L 11/30/17 06:59 BUN 23 mg/dL (7-17) H 11/30/17 06:59 Creatinine 0.77 mg/dL (0.52-1.04) 11/30/17 06:59 Est GFR (CKD-EPI)AfAm >90 (>60 ml/min/1.73 sqM) 11/30/17 06:59 Est GFR (CKD-EPI)NonAf >90 (>60 ml/min/1.73 sqM) 11/30/17 06:59 Glucose 288 mg/dL (74-99) H 11/30/17 06:59 POC Glucose (mg/dL) 241 mg/dL (75-99) H 11/30/17 11:42 POC Glu [employer] ID Eva Barrera 11/30/17 11:[address] Glu mg/dL 126 11/25/17 22:48 Hemoglobin A1c 6.0 % (4.0-6.0) 11/25/17 22:48 Calcium 9.1 mg/dL (8.4-10.2) 11/30/17 06:59 Magnesium 1.5 mg/dL (1.6-2.3) L 11/25/17 22:48 Total Bilirubin 0.7 mg/dL (0.2-1.3) 11/25/17 22:48 AST 55 U/L (14-36) H 11/25/17 22:48 ALT 54 U/L (9-52) H 11/25/17 22:48 Alkaline Phosphatase 95 U/L (38-126) 11/25/17 22:48 Total Creatine Kinase 36 U/L (30-135) 11/25/17 22:48 CK-MB (CK-2) 0.6 ng/mL (0.0-2.4) 11/25/17 22:48 CK-MB (CK-2) Rel Index 1.7 11/25/17 22:48 Troponin I <0.012 ng/mL (0.000-0.034) 11/25/17 22:48 NT-Pro-B Natriuret Pep 368 pg/mL 11/25/17 22:48 Total Protein 6.5 g/dL (6.3-8.2) 11/25/17 22:48 Albumin 3.7 g/dL (3.5-5.0) 11/25/17 22:48 Urine HCG, Qual Not Detected (Not Detectd) 11/29/17 10:35 Fluid Source Bronchial Wash 11/29/17 12:45 Fluid Color 11/29/17 12:45 Fluid Appearance Blood Tinged 11/29/17 12:45 Fluid RBC 1925 /uL 11/29/17 12:45 Fluid Nucleated Cells 980 /uL 11/29/17 12:45 Fluid Polynuclear WBCs 95 % 11/29/17 12:45 Fluid Mononuclear WBCs 5 % 11/29/17 12:45 Vancomycin Trough 22.7 ug/mL 11/28/17 05:52 Microbiology 11/29/17 12:45 Bronchial Washings - Left Gram Stain - Preliminary 11/29/17 12:45 Bronchial Washings - Left Bronchial Washings Culture - Preliminary 11/29/17 12:45 Bronchial Washings - Left Acid Fast Bacilli Culture - Preliminary 11/29/17 12:45 Bronchial Washings - Left Fungal Culture - Preliminary 11/25/17 22:48 Blood Blood Culture - Preliminary No Growth after 96 hours Assessment and Plan (1) Acute exacerbation of chronic bronchitis Narrative/Plan: Patient was recently hospitalized, but left ama because of frustration. Today made it clear that the team is communicating and striving to develop an active plan given the declining status. She is now on high flow oxygen and multiple breathing treatments and antimicrobials. The vanco and fluconazole continue for now. If she does not rapidly improve, would suggest per diagnoses underlying lung disease. the [facility] ILD service. Trying to limit opportunities for patient to manipulate the different consultants, does like IV Benadryl before Vanco and is not unreasonable at this time. November 28 2017, patient has been seen by pulmonary critical care and there are plans for bronchoscopy tomorrow for therapeutic and diagnostic concerns. Continue current antimicrobial therapy and monitor her cultures. She is certainly a bit less anxious since bronchoscopy has been planned for tomorrow. She does have PICC line in place. 11/30/2017 cultures are still pending at this point in time. If MRSA is isolated within plan a few weeks of vancomycin as an outpatient. Sure he has IV access and they can be arranged. Regardless she is improved Current Visit: Yes Status: Acute Code(s): J20.9 - ACUTE BRONCHITIS, UNSPECIFIED SNOMED Code(s): 190834100
--- NOTE | 2017-11-30 16:41 | P.PN ---
Subjective Progress Note Date: 11/30/17 Principal diagnosis: Acute exacerbation of chronic obstructive pulmonary disease This is a 47-year-old female with known history of COPD, chronic smoker, history of interstitial lung disease secondary to sarcoidosis which was supposedly biopsy-proven at [facility]. History of multiple admissions to the hospital with acute on chronic hypoxic respiratory failure secondary to COPD exacerbation and interstitial lung disease. History of MRSA infection, Enterococcus faecalis infection and strep species infections. Patient was recently admitted to the hospital, but she left AGAINST MEDICAL ADVICE, but she was readmitted again on Sunday when she presented back to the ER with cough wheezing shortness of breath. Apparently the patient was upset because she was not given in medications, and she was not receiving vancomycin as she requested. Patient was seen by Dr. Lott on consultation, and he did not feel the need for vancomycin, without any specific culture. From previous bronchoalveolar lavage, the patient had combinations of MRSA Enterococcus faecalis and strep species. But no bronchoalveolar lavage and bronchoscopy done on this admission. At any rate patient was seen on consultation by Dr. Hicks, and she was placed empirically on antibiotics, bronchodilators, steroids, and apparently she was not making much improvement. This time she was readmitted, her chest x-ray continues to show interstitial lung disease, seen by the hospitalist started the patient empirically on vancomycin. Labs on admission showed leukocytosis, WBC count of 13.5. Her potassium was low at 2.9. Otherwise the remaining labs were unremarkable. Patient had mostly cough wheezing shortness of breath, no documented fever, no chills, no hemoptysis, she does have some vague chest wall pain, no headaches or blurred vision dizziness, no nausea vomiting abdominal pain melena or hematemesis. No dysuria frequency or urgency. Patient was reevaluated today on 11/27/2017, slight improvement over the last 24 hours, less wheezing but continues to cough continuously. Hence cough suppressant was added. Patient pleased feels better since she was started back on her bronchodilators, steroids, and remains on antibiotics in the form of vancomycin. Patient was given instructions to at least give us a sample of sputum for cultures. All her meds were reviewed, considering slight improvement noted over the last 24 hours, I am a bit reluctant to perform bronchoscopy at this point. Patient is even sounding better compared to how she sounded yesterday on physical examination. WBC count is 8.2 hemoglobin is 13.8 electrolytes and renal profile are normal. The patient is seen again today 11/28/2017 in follow-up on the regular medical floor. She continues to have dyspnea on minimal exertion. She states her O2 saturations went down into the 40s while off her oxygen during the night but did recover with 15 L high flow nasal cannula. She still quite bronchospastic and wheezing today. White count 13.2. Hemoglobin 13.6. Creatinine 0.70. Blood culture reveals no growth to date. She is currently on vancomycin. The patient is seen again today 11/29/2017 in follow-up on the regular medical floor. She has ongoing complaints of shortness of breath, cough or congestion. Requesting multiple pain medications for chest wall pain. She continues to require 15 L high flow nasal cannula to maintain O2 saturations in the 90s. She 's been afebrile. Hemodynamically stable. Blood cultures reveal no growth. She remains on vancomycin. She did undergo bronchoscopy with BAL with Dr. Noyola today. Tolerated the procedure well. Cultures are pending. The patient is seen again today 11/30/2017 in follow-up on the regular medical floor. She did undergo bronchoscopy with BAL yesterday by Dr. Noyola. Cultures are pending. She is down to 7 L high flow nasal cannula. Maintaining O2 saturations in the 90s. She is somewhat less bronchospastic and wheezy today as compared to yesterday. She remains on IV Solu-Medrol, bronchodilators , antibiotics in the form of vancomycin. ID is on the case as well. Objective - Vital Signs Vital signs: Vital Signs Temp 97.3 F L 11/30/17 13:45 Pulse 65 11/30/17 13:45 Resp 18 11/30/17 13:45 BP 121/67 11/30/17 13:45 Pulse Ox 94 L 11/30/17 13:45 Intake & Output 11/29/17 11/30/17 11/30/17 18:59 06:59 18:59 Intake Total 200 1500 Balance 200 1500 Weight 114.441 kg Intake: IV 200 Intake, IV Titration 1500 Amount Vancomycin 1,750 mg In 1500 Sodium Chloride 0.9% 500 ml @ 167 mls/hr IVPB Q8HR [facility] Rx#:[id number] Other: Voiding Method Toilet Toilet Toilet Bedside Commode # Voids 3 3 # Bowel Movements 1 - Exam Physical Exam: Revealed a 47-year-old female, morbidly obese, in mild respiratory distress. Head: Atraumatic, cushingoid, normocephalic. HEENT:Neck is supple. No neck masses. No thyromegaly. No JVD. Chest: Symmetrical chest expansion, diffuse rhonchi and wheezes bilaterally. Cardiac Exam: Distant S1 and S2, no S3 gallop, no murmur. Abdomen: Obese, Soft, nontender, no megaly, no rebound, no guarding, normal bowel sounds. Extremities: No clubbing, no edema, no cyanosis. Neurological Exam: No focal neurologic deficit. Lymphatics: No lymphadenopathy. Psychiatric: Normal mood affect and mental status examination. - Labs CBC & Chem 7: 11/28/17 05:52 11/30/17 06:59 Labs: Abnormal Lab Results - Last 24 Hours (Table) 11/29/17 11/29/17 11/29/17 Range/Units 12:45 17:12 20:32 Carbon Dioxide (22-30) mmol/L BUN (7-17) mg/dL Glucose (74-99) mg/dL POC Glucose (mg/dL) 145 H 316 H (75-99) mg/dL Viral Test See Below H 11/30/17 11/30/17 11/30/17 Range/Units 06:51 06:59 11:42 Carbon Dioxide 33 H (22-30) mmol/L BUN 23 H (7-17) mg/dL Glucose 288 H (74-99) mg/dL POC Glucose (mg/dL) 287 H 241 H (75-99) mg/dL Viral Test Microbiology - Last 24 Hours (Table) 11/29/17 12:45 Gram Stain - Preliminary Bronchial Washings - Left Bronchial Washings Culture - Preliminary 11/29/17 12:45 Acid Fast Bacilli Culture - Preliminary Bronchial Washings - Left 11/29/17 12:45 Fungal Culture - Preliminary Bronchial Washings - Left 11/25/17 22:48 Blood Culture - Preliminary Blood No Growth after 96 hours Assessment and Plan Assessment: Impression: #1. Acute COPD exacerbation with secondary shortness of breath. The patient was in the hospital approximately 3 weeks ago treated for an acute COPD exacerbation a bronchoscopy back then showed a combination of MRSA, Enterococcus faecalis and strep. Obviously MRSA has been there the past and cultures and previous bronchoscopies. The patient took Bactrim on outpatient basis and she's coming in with similar symptoms of COPD exacerbation, and failed to recover on outpatient basis. Repeat bronchoscopy with BAL performed today 11/29/2017. Cultures pending. #2. Musculoskeletal right-sided chest wall pain secondary to cough. Chest x- ray shows increased interstitial markings probably related to a previous sarcoidosis. #3. Chronic hypoxic respiratory failure secondary to above #4. Sarcoidosis, confirmed by lung biopsy at [facility] 2014, treated with systemic steroids that was ultimately weaned off and discontinued #5. History of pulmonary embolisms in 2011, 2016, DVTs, currently on anticoagulation with Coumadin, with therapeutic PT/INR #6. Nicotine addiction, ongoing, currently down to 2 cigarettes per day, carries over 19-kbck-afll smoking history #7. Obesity with features of obstructive sleep apnea #8. Anxiety #9. CAD, history of myocardial infarction #10. Recurrent hospitalizations for respiratory complications #11. Bipolar disorder #12. Degenerative disc disease #13. Hypertension #14. Hyperlipidemia #15. Fibromyalgia Plan: The patient was seen and evaluated by Dr. Noyola. She has been slow to improve but is improving. She is down to 7 L high flow nasal cannula. She is on vancomycin. Cultures are pending. Continue her current medications. We will continue to follow and make further recommendations based on her clinical status. I, the cosigning physician, performed a history & physical examination of the patient. Lungs sounds bilateral wheezing, diminished. Maintaining good O2 saturations in the 90s on 7 L high flow nasal cannula. I discussed the assessment and plan of care with my nurse practitioner, Nicki Roper. I attest to the above note as dictated by her.
[2017-11-30 16:57] LABS: Glucose,Whole Blood 259 mg/dL (75-99)
[2017-11-30] MEDS: ALPRAZolam 0.5 MG TAB PO PRN (18:30)
[2017-11-30] MEDS ORDERED: Potassium Replacement Protocol 1 EACH MISC MISCELLANE PRN (19:34)
--- NOTE | 2017-11-30 19:34 | P.PN ---
Subjective Progress Note Date: 11/30/17 Progress note being dictated for Dr. Zepeda Interval history:Patient is a known patient to us, was admitted couple days ago for severe bronchitis with COPD exacerbation, left [facility] came back to the hospital because of severe hypoxemia requiring about the 12th 50 L of oxygen. Patient has multiple medical problems including advanced COPD multiple hospitalizations because of that patient had severe tracheobronchitis with the sputum positive for MRSA, enterococcus, Lou in the past. Patient was on IV vancomycin in the past. She is also company of cough with thick sputum production chest x-ray, showing chronic interstitial changes which are more prominent from compared to the previous chest x-ray, patient is already on Bumex at home which will be continued IV fluids were discontinued and patient was started on IV Lasix as well and patient is comparing of cough with the chest pain secondary to cough. I'm unable to appreciate any JVD, BNP is only 368. Patient was started on vancomycin infectious diseases pulmonary will be consulted. Review of Systems REVIEW OF SYSTEMS: CONSTITUTIONAL: No fever, no malaise, no fatigue. HEENT: No recent visual problems or hearing problems. Denied any sore throat. CARDIOVASCULAR: No chest pain, orthopnea, PND, no palpitations, no syncope. PULMONARY: As mentioned in HPI GASTROINTESTINAL: No diarrhea, no nausea, no vomiting, no abdominal pain. Normoactive bowel sounds. NEUROLOGICAL: No headaches, no weakness, no numbness. HEMATOLOGICAL: Denies any bleeding or petechiae. GENITOURINARY: Denies any burning micturition, frequency, or urgency. MUSCULOSKELETAL/RHEUMATOLOGICAL: Denies any joint pain, swelling, or any muscle pain. ENDOCRINE: Denies any polyuria or polydipsia. The rest of the 14-point review of systems is negative. 11/27/18 Afebrile, blood cultures negative at 24 hours. Maintaining O2 sats of 94% on 15 L high flow nasal cannula. PICC line placed, tolerated procedure well. 11/28/17 maintained on vancomycin , nebulized bronchodilators. Afebrile, preliminary blood cultures negative. wheezy bronchospastic, continues on 15 L high flow nasal cannula. Patient insisting on bronchoscopy, currently being discussed with pulmonary. 11/29/17 resting comfortably, awaiting bronchoscopy. Maintaining O2 sats of high 90s on 15 L high flow nasal cannula. 11/30/17 Underwent bronchoscopy yesterday, tolerated procedure well. Cultures pending. Maintained on nebulized bronchodilators, systemic steroids, vancomycin. Oxygen weaned down to 9 L high flow nasal cannula, maintaining O2 sats in the 90s. Objective - Vital Signs Vital signs: Vital Signs Temp 97.3 F L 11/30/17 13:45 Pulse 65 11/30/17 13:45 Resp 18 11/30/17 13:45 BP 121/67 11/30/17 13:45 Pulse Ox 94 L 11/30/17 13:45 Intake & Output 11/30/17 11/30/17 12/01/17 06:59 18:59 06:59 Intake Total 1500 Balance 1500 Weight 114.441 kg Intake: Intake, IV Titration 1500 Amount Vancomycin 1,750 mg In 1500 Sodium Chloride 0.9% 500 ml @ 167 mls/hr IVPB Q8HR [facility] Rx#:[id number] Other: Voiding Method Toilet Toilet Bedside Commode # Voids 3 - Exam GENERAL: Alert and oriented 3, mildly increased respiratory effort HEENT: Pupils are round and equally reacting to light. EOMI. No scleral icterus. No conjunctival pallor. Normocephalic, atraumatic, cushingoid. CARDIOVASCULAR: S1 and S2 present. No murmurs, rubs, or gallops. PULMONARY: Mildly improving Rhonchorous breath sounds. Occasional fine expiratory wheeze scattered ABDOMEN: Soft, nontender, nondistended, normoactive bowel sounds. No palpable organomegaly. MUSCULOSKELETAL: No joint swelling or deformity. EXTREMITIES: No cyanosis, clubbing, or pedal edema. NEUROLOGICAL: Gross neurological examination did not reveal any focal deficits. - Labs CBC & Chem 7: 11/28/17 05:52 11/30/17 06:59 Labs: Abnormal Lab Results - Last 24 Hours (Table) 11/29/17 11/29/17 11/30/17 Range/Units 12:45 20:32 06:51 Carbon Dioxide (22-30) mmol/L BUN (7-17) mg/dL Glucose (74-99) mg/dL POC Glucose (mg/dL) 316 H 287 H (75-99) mg/dL Viral Test See Below H 11/30/17 11/30/17 11/30/17 Range/Units 06:59 11:42 16:54 Carbon Dioxide 33 H (22-30) mmol/L BUN 23 H (7-17) mg/dL Glucose 288 H (74-99) mg/dL POC Glucose (mg/dL) 241 H 259 H (75-99) mg/dL Viral Test Microbiology - Last 24 Hours (Table) 11/29/17 12:45 Gram Stain - Preliminary Bronchial Washings - Left Bronchial Washings Culture - Preliminary 11/29/17 12:45 Acid Fast Bacilli Culture - Preliminary Bronchial Washings - Left 11/29/17 12:45 Fungal Culture - Preliminary Bronchial Washings - Left 11/25/17 22:48 Blood Culture - Preliminary Blood No Growth after 96 hours Assessment and Plan Assessment: Acute hypoxic and hypercapnic respiratory failure patient does have chronic hypercapnic respiratory failure secondary to COPD exacerbation. -Bronchoscopy with recent MRSA candidate albicans felt pain rule out extracardiac enterococcus in the sputum. Status post repeat bronchoscopy, cultures pending. -Interstitial markings per chest x-ray probably related to previous sarcoidosis. -Hypertension -History of PE -Morbid obesity probably restrict lung disease -History of PE in the past -Anxiety disorder bipolar disorder. -Pleuritic chest pain secondary to coughing musculoskeletal nature. Plan: Continue on current medication regime ,monitoring and symptomatic treatment. Patient has further weaned down to 7 L Nasal cannula. Maintain nebulized bronchodilators, steroids, antibiotics. Bronc cultures pending. Antibiotics as per ID. The impression and plan of care has been dictated as directed. : I performed a history and examination of this patient, discussed the same with the dictator. I agree with the dictator's note ,documented as a scribe. Any additional findings or plans will be noted.
[2017-11-30 21:26] LABS: Glucose,Whole Blood 205 mg/dL (75-99)
[2017-11-30] MEDS: MIRTAZAPINE 45 MG TABLET PO SCH (21:38)
[2017-12-01] MEDS: VANCOMYCIN 1,750 MG in SODIUM CHLORIDE 0.9% 500 ML IVPB SCH ×2 (00:14→10:31)
[2017-12-01] MEDS: methylPREDNISolone SOD SUCCI 125 MG/2 ML VIAL IV SCH ×3 (06:06→17:34)
[2017-12-01 06:58] LABS: Glucose,Whole Blood 159 mg/dL (75-99)
[2017-12-01] MEDS ORDERED: VANCOMYCIN TROUGH DUE 1 EACH MISC MISCELLANE ONE (07:00)
[2017-12-01 07:22] LABS: HCT 45.3 % (34.0-46.0); HGB 13.8 gm/dL (11.4-16.0); Hypochromasia Moderate; MCH 28.6 pg (25.0-35.0); MCHC 30.6 g/dL (31.0-37.0); MCV 93.5 fL (80.0-100.0); Mean Platelet Volume 6.5; Platelet Count 300 k/uL (150-450); RBC 4.84 m/uL (3.80-5.40); RDW 13.9 % (11.5-15.5); WBC 18.2 k/uL (3.8-10.6)
[2017-12-01] MEDS: IPRATROPIUM-ALBUTEROL 3 ML NEB INHALATION SCH ×4 (07:31→19:47)
[2017-12-01] MEDS: BUDESONIDE 1 MG/2 ML NEBU INHALATION SCH ×2 (07:31→19:47)
[2017-12-01 07:38] LABS: Anion Gap 6 mmol/L; Blood Urea Nitrogen 25 mg/dL (7-17); Calcium 8.6 mg/dL (8.4-10.2); Carbon Dioxide 29 mmol/L (22-30); Chloride 104 mmol/L (98-107); Glucose 161 mg/dL (74-99); Magnesium 2.2 mg/dL (1.6-2.3); Sodium 139 mmol/L (137-145)
[2017-12-01] MEDS: FORMOTEROL FUMARATE 20 MCG/2 ML NEBU INHALATION SCH ×2 (07:53→19:47)
[2017-12-01] MEDS: PREGABALIN 75 MG CAP PO SCH ×2 (08:11→20:06)
[2017-12-01] MEDS: BUMETANIDE 1 MG TAB PO SCH ×2 (08:14→12:39)
[2017-12-01] MEDS: POTASSIUM CHLORIDE ER 20 MEQ TAB.ER PO SCH (08:14)
[2017-12-01] MEDS: SENNOSIDES-DOCUSATE SODIUM 1 EACH TAB PO SCH ×2 (08:15→20:06)
[2017-12-01] MEDS: guaiFENesin 600 MG TABLET.ER PO SCH ×2 (08:15→20:07)
[2017-12-01] MEDS: lamoTRIgine 100 MG TAB PO SCH (08:15)
[2017-12-01] MEDS: LACTULOSE 20 GM/30 ML CUP PO SCH ×3 (08:15→21:08)
[2017-12-01] MEDS: METOPROLOL TARTRATE 50 MG TAB PO SCH ×2 (08:15→20:07)
[2017-12-01] MEDS: FLUoxetine HCL 20 MG CAP PO SCH (08:16)
[2017-12-01] MEDS: FLUCONAZOLE 100 MG TAB PO SCH (08:16)
[2017-12-01] MEDS: ALPRAZolam 0.5 MG TAB PO PRN ×2 (08:16→20:06)
[2017-12-01] MEDS: busPIRone HCl 10 MG TAB PO SCH ×2 (08:16→20:07)
[2017-12-01] MEDS: MORPHINE SULFATE ER 30 MG TABLET PO PRN ×2 (08:16→16:07)
[2017-12-01] MEDS: INSULIN ASPART 100 UNIT/ML 1 ML 10 ML VIAL SQ SCH ×4 (08:16→21:14)
[2017-12-01] MEDS: NYSTATIN 100,000 UNIT/GM POWD 15 GM TOPICAL SCH ×2 (08:17→20:08)
[2017-12-01] MEDS: VANCOMYCIN 1,500 MG in SODIUM CHLORIDE 0.9% 250 ML IVPB SCH ×3 (09:10→16:03)
[2017-12-01 09:36] LABS: Band Neutrophils % 3 %; Lymphocytes # (M) 3.28 k/uL (1.0-4.8); Metamyelocytes # (M) 0.91 k/uL (0); Metamyelocytes % 5 %; Monocytes # (M) 1.46 k/uL (0-1.0); Myelocytes # (M) 0.73 k/uL (0); Myelocytes % 4 %; Neutrophils % (M) 64 %; Nucleated Red Blood Cells 0 /100 WBC (0-0); Total Cells Counted 200
[2017-12-01] MEDS: diphenhydrAMINE 50 MG CAP PO PRN ×3 (10:10→23:35)
--- NOTE | 2017-12-01 11:44 | P.PN ---
Subjective Progress Note Date: 12/01/17 Principal diagnosis: Acute exacerbation of chronic obstructive pulmonary disease This is a 47-year-old female with known history of COPD, chronic smoker, history of interstitial lung disease secondary to sarcoidosis which was supposedly biopsy-proven at [facility]. History of multiple admissions to the hospital with acute on chronic hypoxic respiratory failure secondary to COPD exacerbation and interstitial lung disease. History of MRSA infection, Enterococcus faecalis infection and strep species infections. Patient was recently admitted to the hospital, but she left AGAINST MEDICAL ADVICE, but she was readmitted again on Sunday when she presented back to the ER with cough wheezing shortness of breath. Apparently the patient was upset because she was not given in medications, and she was not receiving vancomycin as she requested. Patient was seen by Dr. Lott on consultation, and he did not feel the need for vancomycin, without any specific culture. From previous bronchoalveolar lavage, the patient had combinations of MRSA Enterococcus faecalis and strep species. But no bronchoalveolar lavage and bronchoscopy done on this admission. At any rate patient was seen on consultation by Dr. Hicks, and she was placed empirically on antibiotics, bronchodilators, steroids, and apparently she was not making much improvement. This time she was readmitted, her chest x-ray continues to show interstitial lung disease, seen by the hospitalist started the patient empirically on vancomycin. Labs on admission showed leukocytosis, WBC count of 13.5. Her potassium was low at 2.9. Otherwise the remaining labs were unremarkable. Patient had mostly cough wheezing shortness of breath, no documented fever, no chills, no hemoptysis, she does have some vague chest wall pain, no headaches or blurred vision dizziness, no nausea vomiting abdominal pain melena or hematemesis. No dysuria frequency or urgency. Patient was reevaluated today on 11/27/2017, slight improvement over the last 24 hours, less wheezing but continues to cough continuously. Hence cough suppressant was added. Patient pleased feels better since she was started back on her bronchodilators, steroids, and remains on antibiotics in the form of vancomycin. Patient was given instructions to at least give us a sample of sputum for cultures. All her meds were reviewed, considering slight improvement noted over the last 24 hours, I am a bit reluctant to perform bronchoscopy at this point. Patient is even sounding better compared to how she sounded yesterday on physical examination. WBC count is 8.2 hemoglobin is 13.8 electrolytes and renal profile are normal. The patient is seen again today 11/28/2017 in follow-up on the regular medical floor. She continues to have dyspnea on minimal exertion. She states her O2 saturations went down into the 40s while off her oxygen during the night but did recover with 15 L high flow nasal cannula. She still quite bronchospastic and wheezing today. White count 13.2. Hemoglobin 13.6. Creatinine 0.70. Blood culture reveals no growth to date. She is currently on vancomycin. The patient is seen again today 11/29/2017 in follow-up on the regular medical floor. She has ongoing complaints of shortness of breath, cough or congestion. Requesting multiple pain medications for chest wall pain. She continues to require 15 L high flow nasal cannula to maintain O2 saturations in the 90s. She 's been afebrile. Hemodynamically stable. Blood cultures reveal no growth. She remains on vancomycin. She did undergo bronchoscopy with BAL with Dr. Noyola today. Tolerated the procedure well. Cultures are pending. The patient is seen again today 11/30/2017 in follow-up on the regular medical floor. She did undergo bronchoscopy with BAL yesterday by Dr. Noyola. Cultures are pending. She is down to 7 L high flow nasal cannula. Maintaining O2 saturations in the 90s. She is somewhat less bronchospastic and wheezy today as compared to yesterday. She remains on IV Solu-Medrol, bronchodilators , antibiotics in the form of vancomycin. ID is on the case as well. The patient is seen again today 12/01/2017 in follow-up on the regular medical floor. She is awake and alert in no acute distress. She is breathing easier today as compared to yesterday. She is down to 2 L/m per nasal cannula still maintaining O2 saturations in the 90s. Cultures reveal no growth thus far. White count 18.2. Hemoglobin 13.8. Creatinine 0.71. Objective - Vital Signs Vital signs: Vital Signs Temp 98 F 12/01/17 05:00 Pulse 68 12/01/17 11:24 Resp 18 12/01/17 05:00 BP 131/67 12/01/17 05:00 Pulse Ox 94 L 12/01/17 08:20 Intake & Output 11/30/17 12/01/17 12/01/17 18:59 06:59 18:59 Intake Total 240 Balance 240 Weight 114.441 kg Intake: Oral 240 Other: Voiding Method Toilet Toilet Toilet Bedside Commode Bedside Commode Bedside Commode # Voids 3 1 - Exam Physical Exam: Revealed a 47-year-old female, morbidly obese, in mild respiratory distress. Head: Atraumatic, cushingoid, normocephalic. HEENT:Neck is supple. No neck masses. No thyromegaly. No JVD. Chest: Symmetrical chest expansion, diffuse rhonchi and wheezes bilaterally. Cardiac Exam: Distant S1 and S2, no S3 gallop, no murmur. Abdomen: Obese, Soft, nontender, no megaly, no rebound, no guarding, normal bowel sounds. Extremities: No clubbing, no edema, no cyanosis. Neurological Exam: No focal neurologic deficit. Lymphatics: No lymphadenopathy. Psychiatric: Normal mood affect and mental status examination. - Labs CBC & Chem 7: 12/01/17 06:54 12/01/17 06:54 Labs: Abnormal Lab Results - Last 24 Hours (Table) 11/29/17 11/30/17 11/30/17 Range/Units 12:45 11:42 16:54 WBC (3.8-10.6) k/uL MCHC (31.0-37.0) g/dL Neutrophils # (Manual) (1.3-7.7) k/uL Monocytes # (Manual) (0-1.0) k/uL Metamyelocytes # (Man) (0) k/uL Myelocytes # (Manual) (0) k/uL BUN (7-17) mg/dL Glucose (74-99) mg/dL POC Glucose (mg/dL) 241 H 259 H (75-99) mg/dL Viral Test See Below H 11/30/17 12/01/17 12/01/17 Range/Units 21:21 06:54 06:54 WBC 18.2 H (3.8-10.6) k/uL MCHC 30.6 L (31.0-37.0) g/dL Neutrophils # (Manual) 12.10 H (1.3-7.7) k/uL Monocytes # (Manual) 1.46 H (0-1.0) k/uL Metamyelocytes # (Man) 0.91 H (0) k/uL Myelocytes # (Manual) 0.73 H (0) k/uL BUN 25 H (7-17) mg/dL Glucose 161 H (74-99) mg/dL POC Glucose (mg/dL) 205 H (75-99) mg/dL Viral Test 12/01/17 Range/Units 06:56 WBC (3.8-10.6) k/uL MCHC (31.0-37.0) g/dL Neutrophils # (Manual) (1.3-7.7) k/uL Monocytes # (Manual) (0-1.0) k/uL Metamyelocytes # (Man) (0) k/uL Myelocytes # (Manual) (0) k/uL BUN (7-17) mg/dL Glucose (74-99) mg/dL POC Glucose (mg/dL) 159 H (75-99) mg/dL Viral Test Microbiology - Last 24 Hours (Table) 11/25/17 22:48 Blood Culture - Preliminary Blood No Growth after 120 hours 11/29/17 12:45 Acid Fast Bacilli Smear - Final Bronchial Washings - Left Acid Fast Bacilli Culture - Preliminary 11/29/17 12:45 Gram Stain - Preliminary Bronchial Washings - Left Bronchial Washings Culture - Preliminary Assessment and Plan Assessment: Impression: #1. Acute COPD exacerbation with secondary shortness of breath. The patient was in the hospital approximately 3 weeks ago treated for an acute COPD exacerbation a bronchoscopy back then showed a combination of MRSA, Enterococcus faecalis and strep. Obviously MRSA has been there the past and cultures and previous bronchoscopies. The patient took Bactrim on outpatient basis and she's coming in with similar symptoms of COPD exacerbation, and failed to recover on outpatient basis. Repeat bronchoscopy with BAL performed 11/29/2017. Cultures pending. #2. Musculoskeletal right-sided chest wall pain secondary to cough. Chest x- ray shows increased interstitial markings probably related to a previous sarcoidosis. #3. Chronic hypoxic respiratory failure secondary to above #4. Sarcoidosis, confirmed by lung biopsy at [facility] 2014, treated with systemic steroids that was ultimately weaned off and discontinued #5. History of pulmonary embolisms in 2011, 2016, DVTs, currently on anticoagulation with Coumadin, with therapeutic PT/INR #6. Nicotine addiction, ongoing, currently down to 2 cigarettes per day, carries over [id number] smoking history #7. Obesity with features of obstructive sleep apnea #8. Anxiety #9. CAD, history of myocardial infarction #10. Recurrent hospitalizations for respiratory complications #11. Bipolar disorder #12. Degenerative disc disease #13. Hypertension #14. Hyperlipidemia #15. Fibromyalgia Plan: The patient was seen and evaluated by Dr. Noyola. She has been improving. She is down to 3 L nasal cannula. She is on vancomycin. Cultures are pending. Continue her current medications. Increase her activity as tolerated We will continue to follow and make further recommendations based on her clinical status. I, the cosigning physician, performed a history & physical examination of the patient. Lungs sounds bilateral wheezing, diminished. Maintaining good O2 saturations in the 90s on 3 L nasal cannula. I discussed the assessment and plan of care with my nurse practitioner, Nicki Roper. I attest to the above note as dictated by her.
[2017-12-01 12:01] LABS: Glucose,Whole Blood 173 mg/dL (75-99)
--- NOTE | 2017-12-01 12:36 | P.PN ---
Subjective 47-year-old admitted for severe bronchitis COPD exacerbation. Patient is presently on 2 L of oxygen patient uses 3 L of Biaxin. Patient on and bronchoscopy with significant improvement in her symptoms although patient is still wheezing today but patient will need IV vancomycin which cannot be arranged until Sunday. Patient most probably will be discharged on Sunday with weaning dose of steroids IV vancomycin patient already has a PICC line in place. Constitutional: Denied any fatigue denied any fever. Cardio vascular: denied any chest pain, palpitations Gastrointestinal denied any nausea vomiting Pulmonary: As mentioned in HPI Neurologic denied any new focal deficits Objective - Vital Signs Vital signs: Vital Signs Temp 98 F 12/01/17 05:00 Pulse 68 12/01/17 11:24 Resp 18 12/01/17 05:00 BP 131/67 12/01/17 05:00 Pulse Ox 94 L 12/01/17 08:20 Intake & Output 11/30/17 12/01/17 12/01/17 18:59 06:59 18:59 Intake Total 240 Balance 240 Weight 114.441 kg Intake: Oral 240 Other: Voiding Method Toilet Toilet Toilet Bedside Commode Bedside Commode Bedside Commode # Voids 3 1 - Exam PHYSICAL EXAMINATION: GENERAL: The patient is alert and oriented x3, not in any acute distress. Well developed, well nourished. HEENT: Pupils are round and equally reacting to light. EOMI. No scleral icterus. No conjunctival pallor. Normocephalic, atraumatic. No pharyngeal erythema. No thyromegaly. CARDIOVASCULAR: S1 and S2 present. No murmurs, rubs, or gallops. PULMONARY: Minimal expiratory wheezing was appreciated no crackles were appreciated ABDOMEN: Soft, nontender, nondistended, normoactive bowel sounds. No palpable organomegaly. MUSCULOSKELETAL: No joint swelling or deformity. EXTREMITIES: No cyanosis, clubbing, or pedal edema. NEUROLOGICAL: Gross neurological examination did not reveal any focal deficits. SKIN: No rashes. - Labs CBC & Chem 7: 12/01/17 06:54 12/01/17 06:54 Labs: Abnormal Lab Results - Last 24 Hours (Table) 11/29/17 11/30/17 11/30/17 Range/Units 12:45 16:54 21:21 WBC (3.8-10.6) k/uL MCHC (31.0-37.0) g/dL Neutrophils # (Manual) (1.3-7.7) k/uL Monocytes # (Manual) (0-1.0) k/uL Metamyelocytes # (Man) (0) k/uL Myelocytes # (Manual) (0) k/uL BUN (7-17) mg/dL Glucose (74-99) mg/dL POC Glucose (mg/dL) 259 H 205 H (75-99) mg/dL Viral Test See Below H 12/01/17 12/01/17 12/01/17 Range/Units 06:54 06:54 06:56 WBC 18.2 H (3.8-10.6) k/uL MCHC 30.6 L (31.0-37.0) g/dL Neutrophils # (Manual) 12.10 H (1.3-7.7) k/uL Monocytes # (Manual) 1.46 H (0-1.0) k/uL Metamyelocytes # (Man) 0.91 H (0) k/uL Myelocytes # (Manual) 0.73 H (0) k/uL BUN 25 H (7-17) mg/dL Glucose 161 H (74-99) mg/dL POC Glucose (mg/dL) 159 H (75-99) mg/dL Viral Test 12/01/17 Range/Units 12:00 WBC (3.8-10.6) k/uL MCHC (31.0-37.0) g/dL Neutrophils # (Manual) (1.3-7.7) k/uL Monocytes # (Manual) (0-1.0) k/uL Metamyelocytes # (Man) (0) k/uL Myelocytes # (Manual) (0) k/uL BUN (7-17) mg/dL Glucose (74-99) mg/dL POC Glucose (mg/dL) 173 H (75-99) mg/dL Viral Test Microbiology - Last 24 Hours (Table) 11/25/17 22:48 Blood Culture - Preliminary Blood No Growth after 120 hours 11/29/17 12:45 Acid Fast Bacilli Smear - Final Bronchial Washings - Left Acid Fast Bacilli Culture - Preliminary 11/29/17 12:45 Gram Stain - Preliminary Bronchial Washings - Left Bronchial Washings Culture - Preliminary Assessment and Plan Plan: Acute hypoxic and hypercapnic respiratory failure patient does have chronic hypercapnic respiratory failure secondary to COPD exacerbation. Patient is status post therapy bronchoscopy -Bronchoscopy with recent MRSA candidate albicans enterococcus in the sputum. Patient is already on IV vancomycin by the time. She has bronchiolar lavage because of which I am not expecting the cultures to be positive patient is on empiric vancomycin probably will be discharged on vancomycin on Sunday -Interstitial markings per chest x-ray probably related to previous sarcoidosis. -Hypertension -History of PE -Morbid obesity probably restrict lung disease -History of PE in the past -Anxiety disorder bipolar disorder. -Pleuritic chest pain secondary to coughing musculoskeletal nature.
[2017-12-01 17:10] LABS: Glucose,Whole Blood 319 mg/dL (75-99)
[2017-12-01] MEDS: BUTALB/APAP/CAFF 50-325-40MG TAB PO PRN (19:17)
[2017-12-01] MEDS: ONDANSETRON 4 MG TAB PO PRN (20:06)
[2017-12-01] MEDS: MIRTAZAPINE 45 MG TABLET PO SCH (20:07)
[2017-12-01 20:32] LABS: Glucose,Whole Blood 219 mg/dL (75-99)
[2017-12-02] MEDS: methylPREDNISolone SOD SUCCI 125 MG/2 ML VIAL IV SCH ×4 (00:04→17:37)
[2017-12-02] MEDS: VANCOMYCIN 1,500 MG in SODIUM CHLORIDE 0.9% 250 ML IVPB SCH ×3 (00:04→16:56)
[2017-12-02] MEDS: MORPHINE SULFATE ER 30 MG TABLET PO PRN ×2 (04:52→21:08)
[2017-12-02 07:05] LABS: Glucose,Whole Blood 212 mg/dL (75-99)
[2017-12-02] MEDS: BUDESONIDE 1 MG/2 ML NEBU INHALATION SCH ×2 (07:29→19:39)
[2017-12-02] MEDS: IPRATROPIUM-ALBUTEROL 3 ML NEB INHALATION SCH ×4 (07:31→19:39)
[2017-12-02] MEDS: FORMOTEROL FUMARATE 20 MCG/2 ML NEBU INHALATION SCH ×2 (07:31→19:39)
[2017-12-02] MEDS: SENNOSIDES-DOCUSATE SODIUM 1 EACH TAB PO SCH ×2 (08:14→21:08)
[2017-12-02] MEDS: PREGABALIN 75 MG CAP PO SCH ×2 (08:14→21:07)
[2017-12-02] MEDS: lamoTRIgine 100 MG TAB PO SCH (08:15)
[2017-12-02] MEDS: NYSTATIN 100,000 UNIT/GM POWD 15 GM TOPICAL SCH ×2 (08:15→21:07)
[2017-12-02] MEDS: METOPROLOL TARTRATE 50 MG TAB PO SCH ×2 (08:15→21:07)
[2017-12-02] MEDS: POTASSIUM CHLORIDE ER 20 MEQ TAB.ER PO SCH (08:15)
[2017-12-02] MEDS: busPIRone HCl 10 MG TAB PO SCH ×2 (08:16→21:06)
[2017-12-02] MEDS: LACTULOSE 20 GM/30 ML CUP PO SCH ×3 (08:16→21:08)
[2017-12-02] MEDS: FLUCONAZOLE 100 MG TAB PO SCH (08:16)
[2017-12-02] MEDS: guaiFENesin 600 MG TABLET.ER PO SCH ×2 (08:16→21:06)
[2017-12-02] MEDS: FLUoxetine HCL 20 MG CAP PO SCH (08:16)
[2017-12-02] MEDS: INSULIN ASPART 100 UNIT/ML 1 ML 10 ML VIAL SQ SCH ×4 (08:17→21:06)
[2017-12-02] MEDS: BUMETANIDE 1 MG TAB PO SCH ×2 (08:17→12:41)
[2017-12-02] MEDS: diphenhydrAMINE 50 MG CAP PO PRN ×3 (08:39→23:21)
[2017-12-02] MEDS: BUTALB/APAP/CAFF 50-325-40MG TAB PO PRN (08:41)
[2017-12-02 09:18] LABS: HCT 44.3 % (34.0-46.0); HGB 13.8 gm/dL (11.4-16.0); Hypochromasia Slight; MCHC 31.2 g/dL (31.0-37.0); MCV 93.1 fL (80.0-100.0); Mean Platelet Volume 6.3; Platelet Count 203 k/uL (150-450); RBC 4.76 m/uL (3.80-5.40); RDW 14.2 % (11.5-15.5); WBC 11.8 k/uL (3.8-10.6)
[2017-12-02 09:25] LABS: INR 1.1 (<1.2); Prothrombin Time 10.4 sec (9.0-12.0)
[2017-12-02 09:32] LABS: Anion Gap 9 mmol/L; Calcium 8.9 mg/dL (8.4-10.2); Carbon Dioxide 28 mmol/L (22-30); Chloride 99 mmol/L (98-107); Glucose 239 mg/dL (74-99); Sodium 136 mmol/L (137-145)
[2017-12-02 09:37] LABS: Band Neutrophils % 2 %; Lymphocytes # (M) 2.01 k/uL (1.0-4.8); Metamyelocytes # (M) 0.12 k/uL (0); Metamyelocytes % 1 %; Monocytes # (M) 0.83 k/uL (0-1.0); Myelocytes # (M) 0.35 k/uL (0); Myelocytes % 3 %; Neutrophils % (M) 72 %; Nucleated Red Blood Cells 0 /100 WBC (0-0); Total Cells Counted 200
[2017-12-02 09:38] LABS: Toxic Granulation Present
[2017-12-02 09:39] LABS: Poikilocytosis (M) Present
[2017-12-02 09:44] LABS: Blood Urea Nitrogen 28 mg/dL (7-17); Potassium 4.5 mmol/L (3.5-5.1)
[2017-12-02 11:36] LABS: Glucose,Whole Blood 234 mg/dL (75-99)
--- NOTE | 2017-12-02 11:53 | P.PN ---
Subjective 47-year-old admitted for severe bronchitis COPD exacerbation. Patient is presently on 2 L of oxygen patient uses 3 L of Biaxin. Patient on and bronchoscopy with significant improvement in her symptoms although patient is still wheezing today but patient will need IV vancomycin which cannot be arranged until Sunday. Patient most probably will be discharged on Sunday with weaning dose of steroids IV vancomycin patient already has a PICC line in place. 12/02/2017 No overnight events Constitutional: Denied any fatigue denied any fever. Cardio vascular: denied any chest pain, palpitations Gastrointestinal denied any nausea vomiting Pulmonary: As mentioned in HPI Neurologic denied any new focal deficits Objective - Vital Signs Vital signs: Vital Signs Temp 98.9 F 12/02/17 05:00 Pulse 88 12/02/17 11:26 Resp 20 12/02/17 05:00 BP 134/73 12/02/17 05:00 Pulse Ox 92 L 12/02/17 07:31 Intake & Output 12/01/17 12/02/17 12/02/17 18:59 06:59 18:59 Intake Total 750 Balance 750 Intake: Intake, IV Titration 250 Amount Vancomycin 1,500 mg In 250 Sodium Chloride 0.9% 250 ml @ 125 mls/hr IVPB Q8HR [facility] Rx#:[id number] Oral 500 Other: Voiding Method Toilet Toilet Toilet Bedside Commode Bedside Commode Bedside Commode # Voids 2 2 - Exam PHYSICAL EXAMINATION: GENERAL: The patient is alert and oriented x3, not in any acute distress. Well developed, well nourished. HEENT: Pupils are round and equally reacting to light. EOMI. No scleral icterus. No conjunctival pallor. Normocephalic, atraumatic. No pharyngeal erythema. No thyromegaly. CARDIOVASCULAR: S1 and S2 present. No murmurs, rubs, or gallops. PULMONARY: Minimal expiratory wheezing was appreciated no crackles were appreciated ABDOMEN: Soft, nontender, nondistended, normoactive bowel sounds. No palpable organomegaly. MUSCULOSKELETAL: No joint swelling or deformity. EXTREMITIES: No cyanosis, clubbing, or pedal edema. NEUROLOGICAL: Gross neurological examination did not reveal any focal deficits. SKIN: No rashes. - Labs CBC & Chem 7: 12/02/17 09:00 12/02/17 09:00 Labs: Abnormal Lab Results - Last 24 Hours (Table) 12/01/17 12/01/17 12/01/17 Range/Units 12:00 17:08 20:30 WBC (3.8-10.6) k/uL Neutrophils # (Manual) (1.3-7.7) k/uL Metamyelocytes # (Man) (0) k/uL Myelocytes # (Manual) (0) k/uL Sodium (137-145) mmol/L BUN (7-17) mg/dL Glucose (74-99) mg/dL POC Glucose (mg/dL) 173 H 319 H 219 H (75-99) mg/dL 12/02/17 12/02/17 12/02/17 Range/Units 07:03 09:00 09:00 WBC 11.8 H (3.8-10.6) k/uL Neutrophils # (Manual) 8.70 H (1.3-7.7) k/uL Metamyelocytes # (Man) 0.12 H (0) k/uL Myelocytes # (Manual) 0.35 H (0) k/uL Sodium 136 L (137-145) mmol/L BUN 28 H (7-17) mg/dL Glucose 239 H (74-99) mg/dL POC Glucose (mg/dL) 212 H (75-99) mg/dL 12/02/17 Range/Units 11:35 WBC (3.8-10.6) k/uL Neutrophils # (Manual) (1.3-7.7) k/uL Metamyelocytes # (Man) (0) k/uL Myelocytes # (Manual) (0) k/uL Sodium (137-145) mmol/L BUN (7-17) mg/dL Glucose (74-99) mg/dL POC Glucose (mg/dL) 234 H (75-99) mg/dL Microbiology - Last 24 Hours (Table) 11/29/17 12:45 Gram Stain - Final Bronchial Washings - Left Bronchial Washings Culture - Final 11/25/17 22:48 Blood Culture - Final Blood No Growth after 144 hours Assessment and Plan Plan: Acute hypoxic and hypercapnic respiratory failure patient does have chronic hypercapnic respiratory failure secondary to COPD exacerbation. Patient is status post therapy bronchoscopy -Bronchoscopy with recent MRSA candidate albicans enterococcus in the sputum. Patient is already on IV vancomycin by the time. She has bronchiolar lavage because of which I am not expecting the cultures to be positive patient is on empiric vancomycin probably will be discharged on vancomycin on Sunday -Interstitial markings per chest x-ray probably related to previous sarcoidosis. -Hypertension -History of PE -Morbid obesity probably restrict lung disease -History of PE in the past -Anxiety disorder bipolar disorder. -Pleuritic chest pain secondary to coughing musculoskeletal nature.
--- NOTE | 2017-12-02 12:14 | P.PN ---
Subjective Progress Note Date: 12/02/17 Principal diagnosis: Acute exacerbation of COPD, This is a 47-year-old female with known history of COPD, chronic smoker, history of interstitial lung disease secondary to sarcoidosis which was supposedly biopsy-proven at [facility]. History of multiple admissions to the hospital with acute on chronic hypoxic respiratory failure secondary to COPD exacerbation and interstitial lung disease. History of MRSA infection, Enterococcus faecalis infection and strep species infections. Patient was recently admitted to the hospital, but she left AGAINST MEDICAL ADVICE, but she was readmitted again on Sunday when she presented back to the ER with cough wheezing shortness of breath. Apparently the patient was upset because she was not given in medications, and she was not receiving vancomycin as she requested. Patient was seen by Dr. Lott on consultation, and he did not feel the need for vancomycin, without any specific culture. From previous bronchoalveolar lavage, the patient had combinations of MRSA Enterococcus faecalis and strep species. But no bronchoalveolar lavage and bronchoscopy done on this admission. At any rate patient was seen on consultation by Dr. Hicks, and she was placed empirically on antibiotics, bronchodilators, steroids, and apparently she was not making much improvement. This time she was readmitted, her chest x-ray continues to show interstitial lung disease, seen by the hospitalist started the patient empirically on vancomycin. Labs on admission showed leukocytosis, WBC count of 13.5. Her potassium was low at 2.9. Otherwise the remaining labs were unremarkable. Patient had mostly cough wheezing shortness of breath, no documented fever, no chills, no hemoptysis, she does have some vague chest wall pain, no headaches or blurred vision dizziness, no nausea vomiting abdominal pain melena or hematemesis. No dysuria frequency or urgency. Patient was reevaluated today on 11/27/2017, slight improvement over the last 24 hours, less wheezing but continues to cough continuously. Hence cough suppressant was added. Patient pleased feels better since she was started back on her bronchodilators, steroids, and remains on antibiotics in the form of vancomycin. Patient was given instructions to at least give us a sample of sputum for cultures. All her meds were reviewed, considering slight improvement noted over the last 24 hours, I am a bit reluctant to perform bronchoscopy at this point. Patient is even sounding better compared to how she sounded yesterday on physical examination. WBC count is 8.2 hemoglobin is 13.8 electrolytes and renal profile are normal. The patient is seen again today 11/28/2017 in follow-up on the regular medical floor. She continues to have dyspnea on minimal exertion. She states her O2 saturations went down into the 40s while off her oxygen during the night but did recover with 15 L high flow nasal cannula. She still quite bronchospastic and wheezing today. White count 13.2. Hemoglobin 13.6. Creatinine 0.70. Blood culture reveals no growth to date. She is currently on vancomycin. The patient is seen again today 11/29/2017 in follow-up on the regular medical floor. She has ongoing complaints of shortness of breath, cough or congestion. Requesting multiple pain medications for chest wall pain. She continues to require 15 L high flow nasal cannula to maintain O2 saturations in the 90s. She 's been afebrile. Hemodynamically stable. Blood cultures reveal no growth. She remains on vancomycin. She did undergo bronchoscopy with BAL with Dr. Noyola today. Tolerated the procedure well. Cultures are pending. The patient is seen again today 11/30/2017 in follow-up on the regular medical floor. She did undergo bronchoscopy with BAL yesterday by Dr. Noyola. Cultures are pending. She is down to 7 L high flow nasal cannula. Maintaining O2 saturations in the 90s. She is somewhat less bronchospastic and wheezy today as compared to yesterday. She remains on IV Solu-Medrol, bronchodilators , antibiotics in the form of vancomycin. ID is on the case as well. The patient is seen again today 12/01/2017 in follow-up on the regular medical floor. She is awake and alert in no acute distress. She is breathing easier today as compared to yesterday. She is down to 2 L/m per nasal cannula still maintaining O2 saturations in the 90s. Cultures reveal no growth thus far. White count 18.2. Hemoglobin 13.8. Creatinine 0.71. Patient was reevaluated today on 12/02/2017, feeling much better for the first time since admission. Cultures remain negative from her bronchial washings. Patient remains on the same antibiotics including vancomycin. She was told by the admitting physician that he plans to discharge her next Sunday. In the meantime she is improving steadily, and we will continue the same treatment plan Objective - Vital Signs Vital signs: Vital Signs Temp 98.9 F 12/02/17 05:00 Pulse 88 12/02/17 11:26 Resp 20 12/02/17 05:00 BP 134/73 12/02/17 05:00 Pulse Ox 92 L 12/02/17 07:31 Intake & Output 12/01/17 12/02/17 12/02/17 18:59 06:59 18:59 Intake Total 750 Balance 750 Intake: Intake, IV Titration 250 Amount Vancomycin 1,500 mg In 250 Sodium Chloride 0.9% 250 ml @ 125 mls/hr IVPB Q8HR [facility] Rx#:[id number] Oral 500 Other: Voiding Method Toilet Toilet Toilet Bedside Commode Bedside Commode Bedside Commode # Voids 2 2 - Exam Physical Exam: Revealed a 47-year-old female, obese, in no form of respiratory distress. Head: Atraumatic, cushingoid, normocephalic. HEENT:[Neck is supple.] [No neck masses.] [No thyromegaly.] [No JVD.] Chest: [Symmetrical chest expansion, diminished breath sound bilaterally no rhonchi and no wheezes today. Cardiac Exam: [Distant S1 and S2, no S3 gallop, no murmur.] Abdomen: Obese, [Soft, nontender, no megaly, no rebound, no guarding, normal bowel sounds.] Extremities: [No clubbing, no edema, no cyanosis.] Neurological Exam: [No focal neurologic deficit.] Lymphatics: No lymphadenopathy. Psychiatric: Normal mood affect and mental status examination. - Labs CBC & Chem 7: 12/02/17 09:00 12/02/17 09:00 Labs: Abnormal Lab Results - Last 24 Hours (Table) 12/01/17 12/01/17 12/02/17 Range/Units 17:08 20:30 07:03 WBC (3.8-10.6) k/uL Neutrophils # (Manual) (1.3-7.7) k/uL Metamyelocytes # (Man) (0) k/uL Myelocytes # (Manual) (0) k/uL Sodium (137-145) mmol/L BUN (7-17) mg/dL Glucose (74-99) mg/dL POC Glucose (mg/dL) 319 H 219 H 212 H (75-99) mg/dL 12/02/17 12/02/17 12/02/17 Range/Units 09:00 09:00 11:35 WBC 11.8 H (3.8-10.6) k/uL Neutrophils # (Manual) 8.70 H (1.3-7.7) k/uL Metamyelocytes # (Man) 0.12 H (0) k/uL Myelocytes # (Manual) 0.35 H (0) k/uL Sodium 136 L (137-145) mmol/L BUN 28 H (7-17) mg/dL Glucose 239 H (74-99) mg/dL POC Glucose (mg/dL) 234 H (75-99) mg/dL Microbiology - Last 24 Hours (Table) 11/29/17 12:45 Gram Stain - Final Bronchial Washings - Left Bronchial Washings Culture - Final 11/25/17 22:48 Blood Culture - Final Blood No Growth after 144 hours Assessment and Plan Assessment: #1. Acute COPD exacerbation with secondary shortness of breath. The patient was in the hospital approximately 3 weeks ago treated for an acute COPD exacerbation a bronchoscopy back then showed a combination of MRSA, Enterococcus faecalis and strep. Obviously MRSA has been there the past and cultures and please bronchoscopies. The patient took Bactrim on outpatient basis and she's coming in with similar symptoms of COPD exacerbation, and failed to recover on outpatient basis. #2. Musculoskeletal right-sided chest wall pain secondary to cough. Chest x- ray shows increased interstitial markings probably related to a previous sarcoidosis. #3. Chronic hypoxic respiratory failure secondary to above #4. Sarcoidosis, confirmed by lung biopsy at [facility] 2014, treated with systemic steroids that was ultimately weaned off and discontinued #5. History of pulmonary embolisms in 2011, 2016, DVTs, currently on anticoagulation with Coumadin, with therapeutic PT/INR #6. Nicotine addiction, ongoing, currently down to 2 cigarettes per day, carries over [id number] smoking history #7. Obesity with features of obstructive sleep apnea #8. Anxiety #9. CAD, history of myocardial infarction #10. Recurrent hospitalizations for respiratory complications #11. Bipolar disorder #12. Degenerative disc disease #13. Hypertension #14 hyperlipidemia #15 fibromyalgia Recommendation: Continue present treatment plan, patient will continue on antibiotics as per the admitting physician, continue present bronchodilators, discharge planning in the next 2 days. Time with Patient: Less than 30
[2017-12-02 12:51] VITALS: BMI 42.0
[2017-12-02] MEDS: ONDANSETRON 4 MG TAB PO PRN (14:02)
[2017-12-02] MEDS: ALPRAZolam 0.5 MG TAB PO PRN (14:02)
[2017-12-02] MEDS ORDERED: VANCOMYCIN TROUGH DUE 1 EACH MISC MISCELLANE ONE (15:00)
[2017-12-02] MEDS: WARFARIN 10 MG TAB PO SCH (17:37)
[2017-12-02 17:40] LABS: Glucose,Whole Blood 188 mg/dL (75-99)
[2017-12-02] MEDS: MIRTAZAPINE 45 MG TABLET PO SCH (21:07)
[2017-12-02 21:13] LABS: Glucose,Whole Blood 233 mg/dL (75-99)
[2017-12-03] MEDS: MORPHINE SULFATE ER 30 MG TABLET PO PRN ×2 (05:14→19:17)
[2017-12-03] MEDS: methylPREDNISolone SOD SUCCI 125 MG/2 ML VIAL IV SCH ×4 (06:07→17:04)
[2017-12-03 07:05] LABS: Glucose,Whole Blood 192 mg/dL (75-99)
[2017-12-03 07:26] LABS: Anion Gap 9 mmol/L; Blood Urea Nitrogen 28 mg/dL (7-17); Carbon Dioxide 30 mmol/L (22-30); Chloride 98 mmol/L (98-107); Glucose 214 mg/dL (74-99); Potassium 4.6 mmol/L (3.5-5.1); Sodium 137 mmol/L (137-145)
[2017-12-03 07:30] LABS: Basophils # (A) 0.1 k/uL (0-0.2); Basophils % (A) 1 %; Eosinophils % (A) 0 %; HCT 43.1 % (34.0-46.0); HGB 13.6 gm/dL (11.4-16.0); Hypochromasia Slight; Lymphocytes # (A) 1.6 k/uL (1.0-4.8); Lymphocytes % (A) 13 %; MCH 29.1 pg (25.0-35.0); MCHC 31.6 g/dL (31.0-37.0); MCV 92.4 fL (80.0-100.0); Mean Platelet Volume 6.6; Monocytes # (A) 0.5 k/uL (0-1.0); Monocytes % (A) 4 %; Neutrophils # (A) 10.6 k/uL (1.3-7.7); Neutrophils % (A) 82 %; Platelet Count 200 k/uL (150-450); RBC 4.67 m/uL (3.80-5.40); RDW 14.3 % (11.5-15.5); WBC 12.9 k/uL (3.8-10.6)
[2017-12-03] MEDS: PREGABALIN 75 MG CAP PO SCH ×2 (08:08→22:08)
[2017-12-03] MEDS: FLUoxetine HCL 20 MG CAP PO SCH (08:08)
[2017-12-03] MEDS: SENNOSIDES-DOCUSATE SODIUM 1 EACH TAB PO SCH ×2 (08:09→22:10)
[2017-12-03] MEDS: METOPROLOL TARTRATE 50 MG TAB PO SCH ×2 (08:09→22:08)
[2017-12-03] MEDS: BUMETANIDE 1 MG TAB PO SCH ×2 (08:09→13:20)
[2017-12-03] MEDS: POTASSIUM CHLORIDE ER 20 MEQ TAB.ER PO SCH (08:09)
[2017-12-03] MEDS: guaiFENesin 600 MG TABLET.ER PO SCH ×2 (08:09→22:08)
[2017-12-03] MEDS: lamoTRIgine 100 MG TAB PO SCH (08:09)
[2017-12-03] MEDS: busPIRone HCl 10 MG TAB PO SCH ×2 (08:09→22:07)
[2017-12-03] MEDS: FLUCONAZOLE 100 MG TAB PO SCH (08:09)
[2017-12-03] MEDS: diphenhydrAMINE 50 MG CAP PO PRN ×3 (08:09→23:41)
[2017-12-03] MEDS: INSULIN ASPART 100 UNIT/ML 1 ML 10 ML VIAL SQ SCH ×4 (08:10→22:09)
[2017-12-03] MEDS: NYSTATIN 100,000 UNIT/GM POWD 15 GM TOPICAL SCH ×2 (08:10→22:10)
[2017-12-03] MEDS: LACTULOSE 20 GM/30 ML CUP PO SCH ×3 (08:11→22:10)
[2017-12-03] MEDS: VANCOMYCIN 1,500 MG in SODIUM CHLORIDE 0.9% 250 ML IVPB SCH ×4 (08:17→17:04)
[2017-12-03] MEDS: FORMOTEROL FUMARATE 20 MCG/2 ML NEBU INHALATION SCH ×2 (08:50→20:43)
[2017-12-03] MEDS: BUDESONIDE 1 MG/2 ML NEBU INHALATION SCH ×2 (08:50→20:43)
[2017-12-03] MEDS: IPRATROPIUM-ALBUTEROL 3 ML NEB INHALATION SCH ×4 (08:50→20:43)
[2017-12-03 11:39] LABS: Glucose,Whole Blood 188 mg/dL (75-99)
--- NOTE | 2017-12-03 11:50 | P.PN ---
Subjective 47-year-old admitted for severe bronchitis COPD exacerbation. Patient is presently on 2 L of oxygen patient uses 3 L of Biaxin. Patient on and bronchoscopy with significant improvement in her symptoms although patient is still wheezing today but patient will need IV vancomycin which cannot be arranged until Sunday. Patient most probably will be discharged on Sunday with weaning dose of steroids IV vancomycin patient already has a PICC line in place. 12/02/2017 No overnight events 12/03/2017 No wheezing on exam. Patient will be discharged on vancomycin IV tomorrow Constitutional: Denied any fatigue denied any fever. Cardio vascular: denied any chest pain, palpitations Gastrointestinal denied any nausea vomiting Pulmonary: As mentioned in HPI Neurologic denied any new focal deficits Objective - Vital Signs Vital signs: Vital Signs Temp 97.8 F 12/03/17 05:00 Pulse 82 12/03/17 09:12 Resp 18 12/03/17 08:00 BP 127/70 12/03/17 05:00 Pulse Ox 94 L 12/03/17 05:00 Intake & Output 12/02/17 12/03/17 12/03/17 18:59 06:59 18:59 Intake Total 1310 480 Balance 1310 480 Weight 114.441 kg 111.584 kg Intake: Intake, IV Titration 250 Amount Vancomycin 1,500 mg In 250 Sodium Chloride 0.9% 250 ml @ 125 mls/hr IVPB Q8HR [facility] Rx#:[id number] Oral 1060 480 Other: Voiding Method Toilet Toilet Toilet Bedside Commode Bedside Commode Bedside Commode # Voids 3 2 - Exam PHYSICAL EXAMINATION: GENERAL: The patient is alert and oriented x3, not in any acute distress. Well developed, well nourished. HEENT: Pupils are round and equally reacting to light. EOMI. No scleral icterus. No conjunctival pallor. Normocephalic, atraumatic. No pharyngeal erythema. No thyromegaly. CARDIOVASCULAR: S1 and S2 present. No murmurs, rubs, or gallops. PULMONARY: Clear to ask patient no wheezing no crackles on exam. ABDOMEN: Soft, nontender, nondistended, normoactive bowel sounds. No palpable organomegaly. MUSCULOSKELETAL: No joint swelling or deformity. EXTREMITIES: No cyanosis, clubbing, or pedal edema. NEUROLOGICAL: Gross neurological examination did not reveal any focal deficits. SKIN: No rashes. - Labs CBC & Chem 7: 12/03/17 06:46 12/03/17 06:46 Labs: Abnormal Lab Results - Last 24 Hours (Table) 12/02/17 12/02/17 12/03/17 Range/Units 17:19 20:52 06:46 WBC (3.8-10.6) k/uL Neutrophils # (1.3-7.7) k/uL BUN 28 H (7-17) mg/dL Glucose 214 H (74-99) mg/dL POC Glucose (mg/dL) 188 H 233 H (75-99) mg/dL 12/03/17 12/03/17 12/03/17 Range/Units 06:46 07:04 11:37 WBC 12.9 H (3.8-10.6) k/uL Neutrophils # 10.6 H (1.3-7.7) k/uL BUN (7-17) mg/dL Glucose (74-99) mg/dL POC Glucose (mg/dL) 192 H 188 H (75-99) mg/dL Microbiology - Last 24 Hours (Table) 11/29/17 12:45 Gram Stain - Final Bronchial Washings - Left Bronchial Washings Culture - Final Assessment and Plan Plan: Acute hypoxic and hypercapnic respiratory failure patient does have chronic hypercapnic respiratory failure secondary to COPD exacerbation. Patient is status post therapy bronchoscopy -Bronchoscopy with recent MRSA candidate albicans enterococcus in the sputum. Patient is already on IV vancomycin by the time. She has bronchiolar lavage because of which I am not expecting the cultures to be positive patient is on empiric vancomycin probably will be discharged on vancomycin on Sunday -Interstitial markings per chest x-ray probably related to previous sarcoidosis. -Hypertension -History of PE -Morbid obesity probably restrict lung disease -History of PE in the past -Anxiety disorder bipolar disorder. -Pleuritic chest pain secondary to coughing musculoskeletal nature.
[2017-12-03] MEDS: ALPRAZolam 0.5 MG TAB PO PRN ×3 (13:19→22:07)
[2017-12-03] MEDS: HYDROcodone/APAP 7.5-325MG 1 EACH TAB PO PRN (13:19)
--- NOTE | 2017-12-03 13:26 | P.PN ---
Subjective Progress Note Date: 12/03/17 Principal diagnosis: Acute exacerbation of COPD, This is a 47-year-old female with known history of COPD, chronic smoker, history of interstitial lung disease secondary to sarcoidosis which was supposedly biopsy-proven at [facility]. History of multiple admissions to the hospital with acute on chronic hypoxic respiratory failure secondary to COPD exacerbation and interstitial lung disease. History of MRSA infection, Enterococcus faecalis infection and strep species infections. Patient was recently admitted to the hospital, but she left AGAINST MEDICAL ADVICE, but she was readmitted again on Sunday when she presented back to the ER with cough wheezing shortness of breath. Apparently the patient was upset because she was not given in medications, and she was not receiving vancomycin as she requested. Patient was seen by Dr. Lott on consultation, and he did not feel the need for vancomycin, without any specific culture. From previous bronchoalveolar lavage, the patient had combinations of MRSA Enterococcus faecalis and strep species. But no bronchoalveolar lavage and bronchoscopy done on this admission. At any rate patient was seen on consultation by Dr. Hicks, and she was placed empirically on antibiotics, bronchodilators, steroids, and apparently she was not making much improvement. This time she was readmitted, her chest x-ray continues to show interstitial lung disease, seen by the hospitalist started the patient empirically on vancomycin. Labs on admission showed leukocytosis, WBC count of 13.5. Her potassium was low at 2.9. Otherwise the remaining labs were unremarkable. Patient had mostly cough wheezing shortness of breath, no documented fever, no chills, no hemoptysis, she does have some vague chest wall pain, no headaches or blurred vision dizziness, no nausea vomiting abdominal pain melena or hematemesis. No dysuria frequency or urgency. Patient was reevaluated today on 11/27/2017, slight improvement over the last 24 hours, less wheezing but continues to cough continuously. Hence cough suppressant was added. Patient pleased feels better since she was started back on her bronchodilators, steroids, and remains on antibiotics in the form of vancomycin. Patient was given instructions to at least give us a sample of sputum for cultures. All her meds were reviewed, considering slight improvement noted over the last 24 hours, I am a bit reluctant to perform bronchoscopy at this point. Patient is even sounding better compared to how she sounded yesterday on physical examination. WBC count is 8.2 hemoglobin is 13.8 electrolytes and renal profile are normal. The patient is seen again today 11/28/2017 in follow-up on the regular medical floor. She continues to have dyspnea on minimal exertion. She states her O2 saturations went down into the 40s while off her oxygen during the night but did recover with 15 L high flow nasal cannula. She still quite bronchospastic and wheezing today. White count 13.2. Hemoglobin 13.6. Creatinine 0.70. Blood culture reveals no growth to date. She is currently on vancomycin. The patient is seen again today 11/29/2017 in follow-up on the regular medical floor. She has ongoing complaints of shortness of breath, cough or congestion. Requesting multiple pain medications for chest wall pain. She continues to require 15 L high flow nasal cannula to maintain O2 saturations in the 90s. She 's been afebrile. Hemodynamically stable. Blood cultures reveal no growth. She remains on vancomycin. She did undergo bronchoscopy with BAL with Dr. Noyola today. Tolerated the procedure well. Cultures are pending. The patient is seen again today 11/30/2017 in follow-up on the regular medical floor. She did undergo bronchoscopy with BAL yesterday by Dr. Noyola. Cultures are pending. She is down to 7 L high flow nasal cannula. Maintaining O2 saturations in the 90s. She is somewhat less bronchospastic and wheezy today as compared to yesterday. She remains on IV Solu-Medrol, bronchodilators , antibiotics in the form of vancomycin. ID is on the case as well. The patient is seen again today 12/01/2017 in follow-up on the regular medical floor. She is awake and alert in no acute distress. She is breathing easier today as compared to yesterday. She is down to 2 L/m per nasal cannula still maintaining O2 saturations in the 90s. Cultures reveal no growth thus far. White count 18.2. Hemoglobin 13.8. Creatinine 0.71. Patient was reevaluated today on 12/02/2017, feeling much better for the first time since admission. Cultures remain negative from her bronchial washings. Patient remains on the same antibiotics including vancomycin. She was told by the admitting physician that he plans to discharge her next Sunday. In the meantime she is improving steadily, and we will continue the same treatment plan Reevaluated today on 12/03/2017, similar to yesterday, patient continues to improve steadily. Less cough and less wheezing less shortness of breath. All labs were reviewed. Objective - Vital Signs Vital signs: Vital Signs Temp 97.8 F 12/03/17 05:00 Pulse 80 12/03/17 12:29 Resp 18 12/03/17 08:00 BP 127/70 12/03/17 05:00 Pulse Ox 94 L 12/03/17 05:00 Intake & Output 12/02/17 12/03/17 12/03/17 18:59 06:59 18:59 Intake Total 1310 480 Balance 1310 480 Weight 114.441 kg 111.584 kg Intake: Intake, IV Titration 250 Amount Vancomycin 1,500 mg In 250 Sodium Chloride 0.9% 250 ml @ 125 mls/hr IVPB Q8HR [facility] Rx#:[id number] Oral 1060 480 Other: Voiding Method Toilet Toilet Toilet Bedside Commode Bedside Commode Bedside Commode # Voids 3 2 - Exam Physical Exam: Revealed a 47-year-old female, obese, in no form of respiratory distress. Head: Atraumatic, cushingoid, normocephalic. HEENT:[Neck is supple.] [No neck masses.] [No thyromegaly.] [No JVD.] Chest: [Symmetrical chest expansion, diminished breath sound bilaterally no rhonchi and no wheezes today. Cardiac Exam: [Distant S1 and S2, no S3 gallop, no murmur.] Abdomen: Obese, [Soft, nontender, no megaly, no rebound, no guarding, normal bowel sounds.] Extremities: [No clubbing, no edema, no cyanosis.] Neurological Exam: [No focal neurologic deficit.] Lymphatics: No lymphadenopathy. Psychiatric: Normal mood affect and mental status examination. - Labs CBC & Chem 7: 12/03/17 06:46 12/03/17 06:46 Labs: Abnormal Lab Results - Last 24 Hours (Table) 12/02/17 12/02/17 12/03/17 Range/Units 17:19 20:52 06:46 WBC (3.8-10.6) k/uL Neutrophils # (1.3-7.7) k/uL BUN 28 H (7-17) mg/dL Glucose 214 H (74-99) mg/dL POC Glucose (mg/dL) 188 H 233 H (75-99) mg/dL 12/03/17 12/03/17 12/03/17 Range/Units 06:46 07:04 11:37 WBC 12.9 H (3.8-10.6) k/uL Neutrophils # 10.6 H (1.3-7.7) k/uL BUN (7-17) mg/dL Glucose (74-99) mg/dL POC Glucose (mg/dL) 192 H 188 H (75-99) mg/dL Assessment and Plan Assessment: #1. Acute COPD exacerbation with secondary shortness of breath. The patient was in the hospital approximately 3 weeks ago treated for an acute COPD exacerbation a bronchoscopy back then showed a combination of MRSA, Enterococcus faecalis and strep. Obviously MRSA has been there the past and cultures and please bronchoscopies. The patient took Bactrim on outpatient basis and she's coming in with similar symptoms of COPD exacerbation, and failed to recover on outpatient basis. #2. Musculoskeletal right-sided chest wall pain secondary to cough. Chest x- ray shows increased interstitial markings probably related to a previous sarcoidosis. #3. Chronic hypoxic respiratory failure secondary to above #4. Sarcoidosis, confirmed by lung biopsy at [facility] 2014, treated with systemic steroids that was ultimately weaned off and discontinued #5. History of pulmonary embolisms in 2011, 2016, DVTs, currently on anticoagulation with Coumadin, with therapeutic PT/INR #6. Nicotine addiction, ongoing, currently down to 2 cigarettes per day, carries over [id number] smoking history #7. Obesity with features of obstructive sleep apnea #8. Anxiety #9. CAD, history of myocardial infarction #10. Recurrent hospitalizations for respiratory complications #11. Bipolar disorder #12. Degenerative disc disease #13. Hypertension #14 hyperlipidemia #15 fibromyalgia Recommendation: Continue present treatment plan, patient will continue on antibiotics as per the admitting physician, and infectious disease on the case, continue present bronchodilators, discharge planning in the next 24 hours will recommend follow-up chest x-ray in a.m. Time with Patient: Less than 30
[2017-12-03] MEDS: WARFARIN 10 MG TAB PO SCH (17:03)
[2017-12-03 17:13] LABS: Glucose,Whole Blood 232 mg/dL (75-99)
[2017-12-03 20:36] LABS: Glucose,Whole Blood 236 mg/dL (75-99)
[2017-12-03] MEDS: MIRTAZAPINE 45 MG TABLET PO SCH (22:08)
[2017-12-04] MEDS: methylPREDNISolone SOD SUCCI 125 MG/2 ML VIAL IV SCH ×2 (00:06→05:39)
[2017-12-04] MEDS: VANCOMYCIN 1,500 MG in SODIUM CHLORIDE 0.9% 250 ML IVPB SCH ×2 (00:06→08:07)
[2017-12-04] MEDS: MORPHINE SULFATE ER 30 MG TABLET PO PRN (06:13)
[2017-12-04 07:00] LABS: Glucose,Whole Blood 174 mg/dL (75-99)
[2017-12-04] MEDS: INSULIN ASPART 100 UNIT/ML 1 ML 10 ML VIAL SQ SCH (07:32)
[2017-12-04] MEDS: diphenhydrAMINE 50 MG CAP PO PRN (07:33)
[2017-12-04 07:34] VITALS: BP 149/67; TEMP 97.5
[2017-12-04] MEDS: METOPROLOL TARTRATE 50 MG TAB PO SCH (08:12)
[2017-12-04] MEDS: POTASSIUM CHLORIDE ER 20 MEQ TAB.ER PO SCH (08:13)
[2017-12-04] MEDS: NYSTATIN 100,000 UNIT/GM POWD 15 GM TOPICAL SCH (08:13)
[2017-12-04] MEDS: busPIRone HCl 10 MG TAB PO SCH (08:13)
[2017-12-04] MEDS: BUMETANIDE 1 MG TAB PO SCH (08:14)
[2017-12-04] MEDS: FLUCONAZOLE 100 MG TAB PO SCH (08:14)
[2017-12-04] MEDS: FLUoxetine HCL 20 MG CAP PO SCH (08:14)
[2017-12-04] MEDS: lamoTRIgine 100 MG TAB PO SCH (08:15)
[2017-12-04] MEDS: LACTULOSE 20 GM/30 ML CUP PO SCH (08:15)
[2017-12-04] MEDS: guaiFENesin 600 MG TABLET.ER PO SCH (08:15)
[2017-12-04] MEDS: ALPRAZolam 0.5 MG TAB PO PRN (08:16)
--- NOTE | 2017-12-04 08:17 | XR ---
EXAMINATION TYPE: XR chest 2V DATE OF EXAM: 12/04/2017 COMPARISON: 11/25/2017 INDICATION: COPD, ILD TECHNIQUE: Frontal and lateral views of the chest are obtained. FINDINGS: The heart size is normal. The pulmonary vasculature is normal. Vascular prominence is diminished over the interval. There is mild increased scattered lung markings. This is improved from comparison. Continued follow-u p is recommended.. PICC line enters on the left the tip in the distal superior vena cava region. IMPRESSION: 1. Improving diffuse infiltrate. Continued follow-up is recommended. 2. Improved pulmonary vascular markings which appear normal at this time.
[2017-12-04] MEDS: SENNOSIDES-DOCUSATE SODIUM 1 EACH TAB PO SCH (08:20)
[2017-12-04] MEDS: PREGABALIN 75 MG CAP PO SCH (08:20)
[2017-12-04] MEDS: FORMOTEROL FUMARATE 20 MCG/2 ML NEBU INHALATION SCH (08:24)
[2017-12-04] MEDS: IPRATROPIUM-ALBUTEROL 3 ML NEB INHALATION SCH ×2 (08:24→11:22)
[2017-12-04] MEDS: BUDESONIDE 1 MG/2 ML NEBU INHALATION SCH (08:24)
[2017-12-04 08:33] VITALS: RESP 16
[2017-12-04 11:33] VITALS: PULSE 84
--- NOTE | 2017-12-04 11:53 | P.DS ---
Providers Date of admission: 11/26/17 00:14 Attending physician: Gonsalo Church Consults: 11/26/17 00:13 Consult Physician Routine Consulting Provider: Gayle Hicks Consult Reason/Comments: COPD with exacerbation outpatient treatment failure Do you want consulting provider notified?: Yes 11/26/17 13:04 Consult Physician Routine Consulting Provider: Kobi Lott Consult Reason/Comments: MRSA Bronchitis Do you want consulting provider notified?: Yes Primary care physician: [facility] Course: 47-year-old admitted for severe bronchitis COPD exacerbation. Patient is presently on 2 L of oxygen patient uses 3 L of Biaxin. Patient on and bronchoscopy with significant improvement in her symptoms although patient is still wheezing today but patient will need IV vancomycin which cannot be arranged until Sunday. Patient most probably will be discharged on Sunday with weaning dose of steroids IV vancomycin patient already has a PICC line in place. 12/02/2017 No overnight events 12/03/2017 No wheezing on exam. Patient will be discharged on vancomycin IV tomorrow 12/04/2017 Patient will resume her Coumadin patient is being discharged today INR need to be checked in about 3 days. PHYSICAL EXAMINATION: GENERAL: The patient is alert and oriented x3, not in any acute distress. Well developed, well nourished. Obese HEENT: Pupils are round and equally reacting to light. EOMI. No scleral icterus. No conjunctival pallor. Normocephalic, atraumatic. No pharyngeal erythema. No thyromegaly. CARDIOVASCULAR: S1 and S2 present. No murmurs, rubs, or gallops. PULMONARY: Clear to ask patient no wheezing no crackles on exam. ABDOMEN: Soft, nontender, nondistended, normoactive bowel sounds. No palpable organomegaly. MUSCULOSKELETAL: No joint swelling or deformity. EXTREMITIES: No cyanosis, clubbing, or pedal edema. NEUROLOGICAL: Gross neurological examination did not reveal any focal deficits. SKIN: No rashes. Assessment and Plan Plan: Acute hypoxic and hypercapnic respiratory failure patient does have chronic hypercapnic respiratory failure secondary to COPD exacerbation. Patient is status post therapy bronchoscopy significant improvement in her respiratory status and patient is being discharged today -Bronchoscopy with recent MRSA candidate albicans enterococcus in the sputum. Patient is being discharged on IV vancomycin -Interstitial markings per chest x-ray probably related to previous sarcoidosis. -Hypertension -History of PE, resumed on anti-correlation Coumadin INR need to be checked in about 3 days -Morbid obesity probably restrictive lung disease -Anxiety disorder bipolar disorder. -Pleuritic chest pain secondary to coughing musculoskeletal nature. History of heart failure patient is presently euvolemic appears to have chronic diastolic dysfunction Patient Condition at Discharge: Stable Plan - Discharge Summary Discharge Rx Participant: No New Discharge Prescriptions: New Non-Formulary Drug [Non Formulary Drug] 1 each IV ONCE #42 misc predniSONE 10 mg PO DAILY #30 tab Sennosides-Docusate Sodium [Senokot-S] 2 each PO BID PRN #30 tab PRN Reason: Constipation Warfarin [Coumadin] 10 mg PO DAILY@1800 tab Continue FLUoxetine HCL [PROzac] 20 mg PO DAILY #30 capsule Metoprolol Tartrate [Lopressor] 50 mg PO BID #60 tab lamoTRIgine [LaMICtal] 200 mg PO DAILY Ondansetron HCl [Zofran] 4 mg PO BID PRN PRN Reason: Nausea Bumetanide 4 mg PO QAM Butalb/APAP/Caff 50-325-40Mg [Fioricet 50-325-40] 1 tab PO Q4H PRN PRN Reason: Migraine Headache Mirtazapine [Remeron] 45 mg PO HS ALPRAZolam [Xanax] 0.5 mg PO TID PRN PRN Reason: Anxiety Pregabalin [Lyrica] 150 mg PO BID Bumetanide [BUMEX] 2 mg PO DAILY@1200 busPIRone HCL [Buspar] 30 mg PO BID Baclofen [Lioresal] 20 mg PO Q8H PRN PRN Reason: Muscle Pain Morphine Sulfate ER [Ms Contin] 30 mg PO Q8H PRN PRN Reason: Pain Nystatin 100,000 Unit/gm Powd [Mycostatin Powder] 1 applic TOPICAL BID Promethazine/Dextromethorphan [Promethazine-Dm Solution] 5 ml PO Q6H PRN PRN Reason: Cough Docusate [Colace] 100 mg PO BID PRN #60 cap PRN Reason: Constipation guaiFENesin [Mucinex] 1,200 mg PO Q12HR #40 tablet.er Ipratropium-Albuterol Nebulize [Duoneb 0.5 mg-3 mg/3 ml Soln] 3 ml INHALATION RT-QID #120 ampul.neb Potassium Chloride ER [K-Dur 20] 20 meq PO DAILY #30 tab.er.prt Fluconazole 200 mg PO DAILY #14 tab Ibuprofen [Advil] 800 mg PO Q8HR PRN PRN Reason: Pain Discontinued Sulfamethox-Tmp 800-160Mg [Bactrim DS 800-160 mg] 1 tab PO Q12HR #28 tab Discharge Medication List FLUoxetine HCL [PROzac] 20 mg PO DAILY #30 capsule 08/20/15 [Rx] Metoprolol Tartrate [Lopressor] 50 mg PO BID #60 tab 08/20/15 [Rx] lamoTRIgine [LaMICtal] 200 mg PO DAILY 03/22/16 [History] Bumetanide 4 mg PO QAM 10/18/16 [History] Butalb/APAP/Caff 50-325-40Mg [Fioricet 50-325-40] 1 tab PO Q4H PRN 10/18/16 [ History] Ondansetron HCl [Zofran] 4 mg PO BID PRN 10/18/16 [History] Mirtazapine [Remeron] 45 mg PO HS 04/10/17 [History] ALPRAZolam [Xanax] 0.5 mg PO TID PRN 06/06/17 [History] Bumetanide [BUMEX] 2 mg PO DAILY@1200 09/16/17 [History] Pregabalin [Lyrica] 150 mg PO BID 09/16/17 [History] busPIRone HCL [Buspar] 30 mg PO BID 09/16/17 [History] Baclofen [Lioresal] 20 mg PO Q8H PRN 10/09/17 [History] Morphine Sulfate ER [Ms Contin] 30 mg PO Q8H PRN 11/03/17 [History] Nystatin 100,000 Unit/gm Powd [Mycostatin Powder] 1 applic TOPICAL BID 11/04/17 [History] Promethazine/Dextromethorphan [Promethazine-Dm Solution] 5 ml PO Q6H PRN [History] Docusate [Colace] 100 mg PO BID PRN #60 cap 11/10/17 [Rx] Ipratropium-Albuterol Nebulize [Duoneb 0.5 mg-3 mg/3 ml Soln] 3 ml INHALATION RT -QID #120 ampul.neb 11/10/17 [Rx] Potassium Chloride ER [K-Dur 20] 20 meq PO DAILY #30 tab.er.prt 11/10/17 [Rx] guaiFENesin [Mucinex] 1,200 mg PO Q12HR #40 tablet.er 11/10/17 [Rx] Fluconazole 200 mg PO DAILY #14 tab 11/13/17 [Rx] Ibuprofen [Advil] 800 mg PO Q8HR PRN 11/22/17 [History] Non-Formulary Drug [Non Formulary Drug] 1 each IV ONCE #42 misc 11/30/17 [Rx] Sennosides-Docusate Sodium [Senokot-S] 2 each PO BID PRN #30 tab 12/04/17 [Rx] Warfarin [Coumadin] 10 mg PO DAILY@1800 tab 12/04/17 [Rx] predniSONE 10 mg PO DAILY #30 tab 12/04/17 [Rx] Follow up Appointment(s)/Referral(s): Liz Koch MD [Primary Care Provider] - 1-2 days [facility] Visiting Nurse, [NON-STAFF] - As Needed Ambulatory/Diagnostic Orders: Basic Metabolic Panel [LAB.AMB] Location: None Selected Complete Blood Count w/diff [LAB.AMB] Location: None Selected Vancomycin,Trough [LAB.AMB] Location: None Selected Discharge Disposition: HOME WITH HOME HEALTH SERVICES
--- NOTE | 2017-12-04 12:07 | P.PN ---
Subjective Progress Note Date: 12/04/17 Principal diagnosis: Acute COPD exacerbation with secondary shortness of breath, musculoskeletal right-sided chest wall pain secondary to cough This is a 47-year-old female with known history of COPD, chronic smoker, history of interstitial lung disease secondary to sarcoidosis which was supposedly biopsy-proven at [facility]. History of multiple admissions to the hospital with acute on chronic hypoxic respiratory failure secondary to COPD exacerbation and interstitial lung disease. History of MRSA infection, Enterococcus faecalis infection and strep species infections. Patient was recently admitted to the hospital, but she left AGAINST MEDICAL ADVICE, but she was readmitted again on Sunday when she presented back to the ER with cough wheezing shortness of breath. Apparently the patient was upset because she was not given in medications, and she was not receiving vancomycin as she requested. Patient was seen by Dr. Lott on consultation, and he did not feel the need for vancomycin, without any specific culture. From previous bronchoalveolar lavage, the patient had combinations of MRSA Enterococcus faecalis and strep species. But no bronchoalveolar lavage and bronchoscopy done on this admission. At any rate patient was seen on consultation by Dr. Hicks, and she was placed empirically on antibiotics, bronchodilators, steroids, and apparently she was not making much improvement. This time she was readmitted, her chest x-ray continues to show interstitial lung disease, seen by the hospitalist started the patient empirically on vancomycin. Labs on admission showed leukocytosis, WBC count of 13.5. Her potassium was low at 2.9. Otherwise the remaining labs were unremarkable. Patient had mostly cough wheezing shortness of breath, no documented fever, no chills, no hemoptysis, she does have some vague chest wall pain, no headaches or blurred vision dizziness, no nausea vomiting abdominal pain melena or hematemesis. No dysuria frequency or urgency. Patient was reevaluated today on 11/27/2017, slight improvement over the last 24 hours, less wheezing but continues to cough continuously. Hence cough suppressant was added. Patient pleased feels better since she was started back on her bronchodilators, steroids, and remains on antibiotics in the form of vancomycin. Patient was given instructions to at least give us a sample of sputum for cultures. All her meds were reviewed, considering slight improvement noted over the last 24 hours, I am a bit reluctant to perform bronchoscopy at this point. Patient is even sounding better compared to how she sounded yesterday on physical examination. WBC count is 8.2 hemoglobin is 13.8 electrolytes and renal profile are normal. The patient is seen again today 11/28/2017 in follow-up on the regular medical floor. She continues to have dyspnea on minimal exertion. She states her O2 saturations went down into the 40s while off her oxygen during the night but did recover with 15 L high flow nasal cannula. She still quite bronchospastic and wheezing today. White count 13.2. Hemoglobin 13.6. Creatinine 0.70. Blood culture reveals no growth to date. She is currently on vancomycin. The patient is seen again today 11/29/2017 in follow-up on the regular medical floor. She has ongoing complaints of shortness of breath, cough or congestion. Requesting multiple pain medications for chest wall pain. She continues to require 15 L high flow nasal cannula to maintain O2 saturations in the 90s. She 's been afebrile. Hemodynamically stable. Blood cultures reveal no growth. She remains on vancomycin. She did undergo bronchoscopy with BAL with Dr. Noyola today. Tolerated the procedure well. Cultures are pending. The patient is seen again today 11/30/2017 in follow-up on the regular medical floor. She did undergo bronchoscopy with BAL yesterday by Dr. Noyola. Cultures are pending. She is down to 7 L high flow nasal cannula. Maintaining O2 saturations in the 90s. She is somewhat less bronchospastic and wheezy today as compared to yesterday. She remains on IV Solu-Medrol, bronchodilators , antibiotics in the form of vancomycin. ID is on the case as well. The patient is seen again today 12/01/2017 in follow-up on the regular medical floor. She is awake and alert in no acute distress. She is breathing easier today as compared to yesterday. She is down to 2 L/m per nasal cannula still maintaining O2 saturations in the 90s. Cultures reveal no growth thus far. White count 18.2. Hemoglobin 13.8. Creatinine 0.71. Patient was reevaluated today on 12/02/2017, feeling much better for the first time since admission. Cultures remain negative from her bronchial washings. Patient remains on the same antibiotics including vancomycin. She was told by the admitting physician that he plans to discharge her next Sunday. In the meantime she is improving steadily, and we will continue the same treatment plan Reevaluated today on 12/03/2017, similar to yesterday, patient continues to improve steadily. Less cough and less wheezing less shortness of breath. All labs were reviewed. On 12/04/2017 patient seen in follow-up on medical surgical floor. Feeling good , and she is anxious to get home today, vital signs are stable, patient is afebrile, she is on her 3 L of oxygen, maintaining O2 saturations above 92%, patient is afebrile. All cultures remain negative thus far, no new labs today. Patient has a PICC line in place, she remains on vancomycin infusions, and is anticipated to be discharged home today with vancomycin infusions. Lung sounds are diminished, no rhonchi, no wheezes noted on today's exam. Only occasional cough with production of small amount of light brantley sputum. Objective - Vital Signs Vital signs: Vital Signs Temp 97.5 F L 12/04/17 07:34 Pulse 84 12/04/17 11:32 Resp 16 12/04/17 10:36 BP 149/67 12/04/17 07:34 Pulse Ox 95 12/04/17 07:34 Intake & Output 12/03/17 12/04/17 12/04/17 18:59 06:59 18:59 Intake Total 2650 1290 Balance 2650 1290 Weight 110.359 kg Intake: Intake, IV Titration 250 250 Amount Vancomycin 1,500 mg In 250 250 Sodium Chloride 0.9% 250 ml @ 125 mls/hr IVPB Q8HR [facility] Rx#:[id number] Oral 2400 1040 Other: Voiding Method Toilet Toilet Toilet Bedside Commode # Voids 3 1 - Exam Physical Exam: Revealed a 47-year-old female, obese, in no form of respiratory distress. Head: Atraumatic, cushingoid, normocephalic. HEENT:[Neck is supple.] [No neck masses.] [No thyromegaly.] [No JVD.] Chest: [Symmetrical chest expansion, diminished breath sound bilaterally no rhonchi and no wheezes today. Cardiac Exam: [Distant S1 and S2, no S3 gallop, no murmur.] Abdomen: Obese, [Soft, nontender, no megaly, no rebound, no guarding, normal bowel sounds.] Extremities: [No clubbing, no edema, no cyanosis.] Neurological Exam: [No focal neurologic deficit.] Lymphatics: No lymphadenopathy. Psychiatric: Normal mood affect and mental status examination. - Labs CBC & Chem 7: 12/03/17 06:46 12/03/17 06:46 Labs: Abnormal Lab Results - Last 24 Hours (Table) 12/03/17 12/03/17 12/04/17 Range/Units 17:12 20:33 06:58 POC Glucose (mg/dL) 232 H 236 H 174 H (75-99) mg/dL Assessment and Plan Plan: Assessment: #1. Acute COPD exacerbation with secondary shortness of breath. The patient was in the hospital approximately 3 weeks ago treated for an acute COPD exacerbation a bronchoscopy back then showed a combination of MRSA, Enterococcus faecalis and strep. Obviously MRSA has been there the past and cultures and please bronchoscopies. The patient took Bactrim on outpatient basis and she's coming in with similar symptoms of COPD exacerbation, and failed to recover on outpatient basis. #2. Musculoskeletal right-sided chest wall pain secondary to cough. Chest x- ray shows increased interstitial markings probably related to a previous sarcoidosis. #3. Chronic hypoxic respiratory failure secondary to above #4. Sarcoidosis, confirmed by lung biopsy at [facility] 2014, treated with systemic steroids that was ultimately weaned off and discontinued #5. History of pulmonary embolisms in 2011, 2016, DVTs, currently on anticoagulation with Coumadin, with therapeutic PT/INR #6. Nicotine addiction, ongoing, currently down to 2 cigarettes per day, carries over [id number] smoking history #7. Obesity with features of obstructive sleep apnea #8. Anxiety #9. CAD, history of myocardial infarction #10. Recurrent hospitalizations for respiratory complications #11. Bipolar disorder #12. Degenerative disc disease #13. Hypertension #14 hyperlipidemia #15 fibromyalgia Recommendation: Patient is doing well, no acute complaints, no shortness of breath, no congestion, patient is stable, and is anticipated to be discharged home today with vancomycin infusions. Follow-up with Dr. Hicks in the office in the outpatient setting 7-10 days I performed a history & physical examination of the patient and discussed their management with my nurse practitioner, Cydney Hart. I reviewed the nurse practitioner's note and agree with the documented findings and plan of care. Lung sounds are diminished. The findings and the impression was discussed with the patient. I attest to the documentation by the nurse practitioner. Time with Patient: Less than 30
[2017-12-04] MEDS ORDERED: VANCOMYCIN TROUGH DUE 1 EACH MISC MISCELLANE ONE (15:00)
== END 2017-12-04 12:10 | disposition home health service (06) | DRG 166 ==
LOC: EC 22:20 → 5MS5E 11-26 00:14
PROVIDERS: ADMIT Hospitalist; ATTEND Hospitalist
PROC: 02HV33Z Insertion of Infusion Device into Superior Vena Cava, Percutaneous Approach (ICD-10-PCS; 2017-11-27 09:15)
PROC: 0B9G8ZX Drainage of Left Upper Lung Lobe, Via Natural or Artificial Opening Endoscopic, Diagnostic (ICD-10-PCS; principal; 2017-11-29 07:30)
PROC: 0B9H8ZX Drainage of Lung Lingula, Via Natural or Artificial Opening Endoscopic, Diagnostic (ICD-10-PCS; principal; 2017-11-29 07:30)
DX: J44.0 Chronic obstructive pulmonary disease with (acute) lower respiratory infection (principal); J96.22 Acute and chronic respiratory failure with hypercapnia; J96.21 Acute and chronic respiratory failure with hypoxia; I50.32 Chronic diastolic (congestive) heart failure; Z68.41 Body mass index [BMI] 40.0-44.9, adult; J20.8 Acute bronchitis due to other specified organisms; J44.1 Chronic obstructive pulmonary disease with (acute) exacerbation; I11.0 Hypertensive heart disease with heart failure; F31.9 Bipolar disorder, unspecified; E66.01 Morbid (severe) obesity due to excess calories; J84.10 Pulmonary fibrosis, unspecified; E78.5 Hyperlipidemia, unspecified; E83.42 Hypomagnesemia; E87.6 Hypokalemia; G47.33 Obstructive sleep apnea (adult) (pediatric); F17.210 Nicotine dependence, cigarettes, uncomplicated; I25.10 Atherosclerotic heart disease of native coronary artery without angina pectoris; F41.0 Panic disorder [episodic paroxysmal anxiety]; M79.7 Fibromyalgia; I25.2 Old myocardial infarction; Z86.711 Personal history of pulmonary embolism; Z91.19 Patient's noncompliance with other medical treatment and regimen; Z82.49 Family history of ischemic heart disease and other diseases of the circulatory system; Z88.5 Allergy status to narcotic agent; Z88.8 Allergy status to other drugs, medicaments and biological substances; Z88.1 Allergy status to other antibiotic agents; Z91.041 Radiographic dye allergy status; Z86.718 Personal history of other venous thrombosis and embolism; Z99.81 Dependence on supplemental oxygen; Z86.14 Personal history of Methicillin resistant Staphylococcus aureus infection; Z83.3 Family history of diabetes mellitus; Z79.899 Other long term (current) drug therapy; Z79.01 Long term (current) use of anticoagulants
CPT/HCPCS: 31624; 36415; 36569; 71046; 76937; 77001; 80048; 80053; 80202; 81025; 82550; 82553; 83036; 83735; 83880; 84484; 85025; 85610; 85730; 87040; 87070; 87102; 87116; 87205; 87206; 87252; 87496; 87498; 87502; 87529; 87634; 87798; 88108; 88184; 88185; 88305; 89050; 93005; 94640; 94760; 96361; 96365; 96375; 99291

== ENCOUNTER 2017-12-07 12:59 | Observation (INO) | payer OTHER ==
--- NOTE | 2017-12-07 14:20 | ED ---
General Adult HPI - General Chief complaint: Chest Pain Stated complaint: chest pain/ pick line isues Time Seen by Provider: 12/07/17 14:07 Source: patient, family, RN notes reviewed, old records reviewed Mode of arrival: wheelchair Limitations: no limitations - History of Present Illness Initial comments: This is a 47-year-old female the ER for evaluation. Patient has multiple complaints today. Patient's first complaint regarding shortness of breath and chest pain. Patient's second complaint throat pain in her buttocks area. Patient has had episodic fever chills, patient is prolonged medical history, family medical history severe COPD. Patient states she had left-sided but pain starting a few days ago. States pain may have bedsore. Patient is on vancomycin as an outpatient for treatment of bacterial lung bacteria MRSA. - Related Data Home Medications Medication Instructions Recorded Confirmed lamoTRIgine [LaMICtal] 200 mg PO DAILY 03/22/16 12/07/17 Bumetanide 4 mg PO QAM 10/18/16 12/07/17 Butalb/APAP/Caff 50-325-40Mg 1 tab PO Q4H PRN 10/18/16 12/07/17 [Fioricet 50-325-40] Ondansetron HCl [Zofran] 4 mg PO BID PRN 10/18/16 12/07/17 Mirtazapine [Remeron] 45 mg PO HS 04/10/17 12/07/17 ALPRAZolam [Xanax] 0.5 mg PO TID PRN 06/06/17 12/07/17 Bumetanide [BUMEX] 2 mg PO DAILY@1200 09/16/17 12/07/17 Pregabalin [Lyrica] 150 mg PO BID 09/16/17 12/07/17 busPIRone HCL [Buspar] 30 mg PO BID 09/16/17 12/07/17 Baclofen [Lioresal] 20 mg PO Q8H PRN 10/09/17 12/07/17 Morphine Sulfate ER [Ms Contin] 30 mg PO Q8H PRN 11/03/17 12/07/17 Nystatin 100,000 Unit/gm Powd 1 applic TOPICAL BID 11/04/17 12/07/17 [Mycostatin Powder] Promethazine/Dextromethorphan 5 ml PO Q6H PRN 11/04/17 12/07/17 [Promethazine-Dm Solution] Ibuprofen [Advil] 800 mg PO Q8HR PRN 11/22/17 12/07/17 Sennosides-Docusate Sodium 2 tab PO BID PRN 12/07/17 12/07/17 [Senokot-S] Vancomycin 1,750 mg IVPB Q8H 12/07/17 12/07/17 Previous Rx's Medication Instructions Recorded FLUoxetine HCL [PROzac] 20 mg PO DAILY #30 capsule 08/20/15 Metoprolol Tartrate [Lopressor] 50 mg PO BID #60 tab 08/20/15 Docusate [Colace] 100 mg PO BID PRN #60 cap 11/10/17 Ipratropium-Albuterol Nebulize 3 ml INHALATION RT-QID #120 11/10/17 [Duoneb 0.5 mg-3 mg/3 ml Soln] ampul.neb Potassium Chloride ER [K-Dur 20] 20 meq PO DAILY #30 tab.er.prt 11/10/17 guaiFENesin [Mucinex] 1,200 mg PO Q12HR #40 tablet.er 11/10/17 Fluconazole 200 mg PO DAILY #14 tab 11/13/17 Warfarin [Coumadin] 10 mg PO DAILY@1800 tab 12/04/17 predniSONE 10 mg PO DAILY #30 tab 12/04/17 Allergies Allergy/AdvReac Type Severity Reaction Status Date / Time ketorolac tromethamine Allergy Severe Anaphylaxis Verified 12/07/17 13:49 [From Toradol] Opioids - Morphine Analogues Allergy Mild Itching Verified 12/07/17 13:49 Iodinated Contrast- Oral and Allergy Unknown Verified 12/07/17 13:49 IV Dye rivaroxaban [From Xarelto] Allergy Rash/Hives Verified 12/07/17 13:49 sumatriptan [From Imitrex] Allergy Anaphylaxis Verified 12/07/17 13:49 sumatriptan succinate Allergy Anaphylaxis Verified 12/07/17 13:49 [From Imitrex] morphine AdvReac Severe Itching Verified 12/07/17 13:49 iodine AdvReac Intermediate Itching Verified 12/07/17 13:49 tramadol AdvReac Anaphylaxis Verified 12/07/17 13:49 vancomycin AdvReac Itching Verified 12/07/17 13:49 Rich wipes AdvReac Severe Rash/Hives Uncoded 12/07/17 13:07 Review of Systems ROS Statement: Those systems with pertinent positive or pertinent negative responses have been documented in the HPI. ROS Other: All systems not noted in ROS Statement are negative. Past Medical History Past Medical History: Blood Disorder, Heart Failure, COPD, Deep Vein Thrombosis (DVT), Hyperlipidemia, Hypertension, Myocardial Infarction (MT), Musculoskeletal Disorder, Pneumonia, Pulmonary Embolus (PE), Thyroid Disorder Additional Past Medical History / Comment(s): PE 2012; Sarcoidosis diagnosed in 2015 following a bronchoscopy and lung biopsy done at [facility] and she was started on predniosone and she took the therapy for almost 1 year, polycythemia, overweight, bilateral PE (2011, 2015), bilateral DVTs, fibromyalgia, bipolar disorder, degenerative disk disorder, coronary artery disease along with previous history of a MT and ventilator dependent respiratory failure with MRSA pneumonia for which the patient was hospitalized [facility] in 2012. Viral meningitis in October 2014. Pulmonary fibrosis, home 02 3l n/c Last Myocardial Infarction Date:: February 15, 2013 History of Any Multi-Drug Resistant Organisms: MRSA Date of last positivie culture/infection: 11/09/17 MDRO Source:: PLEURAL FLUID Past Surgical History: Section, Cholecystectomy, Heart Catheterization , Hernia Repair, Orthopedic Surgery Additional Past Surgical History / Comment(s): Lt ankle surgery, several bronchosopy-most recently 11/09/17 Past Anesthesia/Blood Transfusion Reactions: Motion Sickness, Postoperative Nausea & Vomiting (PONV) Additional Past Anesthesia/Blood Transfusion Reaction / Comment(s): previously charted -pt stated that last April she coded due to anesthetic Past Psychological History: Anxiety, Bipolar, Depression, Panic Disorder Smoking Status: Never smoker Past Alcohol Use History: None Reported Past Drug Use History: None Reported - Past Family History Father Family Medical History: Blood Disorder, Congestive Heart Failure (CHF), CVA/TIA , Deep Vein Thrombosis (DVT), Myocardial Infarction (MT) Additional Family Medical History / Comment(s): polycythemia Mother Family Medical History: Congestive Heart Failure (CHF), Diabetes Mellitus, Deep Vein Thrombosis (DVT), Myocardial Infarction (MT), Musculoskeletal Disorder Additional Family Medical History / Comment(s): DDD Sister(s) Family Medical History: No Reported History Brother(s) Family Medical History: No Reported History Son(s) Family Medical History: No Reported History Daughter(s) Family Medical History: No Reported History General Exam - General Exam Comments Initial Comments: Patient does appear to maybe have some soft tissue cellulitis versus abscess on her L buttox Limitations: no limitations General appearance: alert, in no apparent distress Head exam: Present: atraumatic, normocephalic, normal inspection Eye exam: Present: normal appearance, PERRL, EOMI. Absent: scleral icterus, conjunctival injection, periorbital swelling ENT exam: Present: normal exam, mucous membranes moist Neck exam: Present: normal inspection. Absent: tenderness, meningismus, lymphadenopathy Respiratory exam: Present: normal lung sounds bilaterally. Absent: respiratory distress, wheezes, rales, rhonchi, stridor Cardiovascular Exam: Present: regular rate, normal rhythm, normal heart sounds. Absent: systolic murmur, diastolic murmur, rubs, gallop, clicks GI/Abdominal exam: Present: soft, normal bowel sounds. Absent: distended, tenderness, guarding, rebound, rigid Extremities exam: Present: normal inspection, full ROM, normal capillary refill. Absent: tenderness, pedal edema, joint swelling, calf tenderness Back exam: Present: normal inspection Neurological exam: Present: alert, oriented X3, CN II-XII intact Psychiatric exam: Present: normal affect, normal mood Skin exam: Present: warm, dry, intact, normal color. Absent: rash Course Vital Signs 12/07/17 12/07/17 12/07/17 13:02 14:10 14:42 Temperature 98.4 F Pulse Rate 84 87 Respiratory 24 22 22 Rate Blood Pressure 119/81 160/78 O2 Sat by Pulse 97 95 Oximetry 12/07/17 12/07/17 12/07/17 15:19 15:44 15:57 Temperature Pulse Rate 100 87 96 Respiratory Rate Blood Pressure O2 Sat by Pulse Oximetry 12/07/17 12/07/17 12/07/17 15:58 16:40 17:40 Temperature Pulse Rate 95 92 82 Respiratory 22 22 20 Rate Blood Pressure 147/78 133/89 117/66 O2 Sat by Pulse 95 95 94 L Oximetry 12/07/17 18:41 Temperature Pulse Rate 81 Respiratory 18 Rate Blood Pressure 119/70 O2 Sat by Pulse 96 Oximetry - Reevaluation(s) Reevaluation #1: 09/07/18 14:58 Medical record is reviewed EKG Findings - EKG Comments: EKG Findings:: EKG shows sinus rhythm rate of 84, MD 1:30, QRS 70, QTc 441 Medical Decision Making - Medical Decision Making 47 female the ER with recurrent chest pain shortness of breath COPD, patient does have blood tox pain but no abnormality found either on exam or computed tomography scan. - Lab Data Result diagrams: 12/08/17 06:14 12/08/17 06:14 Lab Results 12/07/17 12/07/17 12/07/17 Range/Units 14:00 14:00 14:00 WBC 11.7 H (3.8-10.6) k/uL RBC 5.16 (3.80-5.40) m/uL Hgb 14.9 (11.4-16.0) gm/dL Hct 46.6 H (34.0-46.0) % MCV 90.3 (80.0-100.0) fL MCH 28.9 (25.0-35.0) pg MCHC 32.0 (31.0-37.0) g/dL RDW 14.4 (11.5-15.5) % Plt Count 160 (150-450) k/uL Neutrophils % 66 % Lymphocytes % 21 % Monocytes % 10 % Eosinophils % 1 % Basophils % 0 % Neutrophils # 7.7 (1.3-7.7) k/uL Lymphocytes # 2.5 (1.0-4.8) k/uL Monocytes # 1.2 H (0-1.0) k/uL Eosinophils # 0.1 (0-0.7) k/uL Basophils # 0.0 (0-0.2) k/uL Sodium 139 (137-145) mmol/L Potassium 3.2 L (3.5-5.1) mmol/L Chloride 104 (98-107) mmol/L Carbon Dioxide 22 (22-30) mmol/L Anion Gap 13 mmol/L BUN 12 (7-17) mg/dL Creatinine 0.71 (0.52-1.04) mg/dL Est GFR (CKD-EPI)AfAm >90 (>60 ml/min/1.73 sqM) Est GFR (CKD-EPI)NonAf >90 (>60 ml/min/1.73 sqM) Glucose 212 H (74-99) mg/dL Calcium 8.9 (8.4-10.2) mg/dL Magnesium 1.9 (1.6-2.3) mg/dL Total Bilirubin 0.5 (0.2-1.3) mg/dL AST 45 H (14-36) U/L ALT 156 H (9-52) U/L Alkaline Phosphatase 96 (38-126) U/L Total Creatine Kinase 130 (30-135) U/L CK-MB (CK-2) 1.1 (0.0-2.4) ng/mL CK-MB (CK-2) Rel Index 0.8 Troponin I <0.012 (0.000-0.034) ng/mL NT-Pro-B Natriuret Pep pg/mL Total Protein 6.3 (6.3-8.2) g/dL Albumin 3.4 L (3.5-5.0) g/dL 12/07/17 Range/Units 14:00 WBC (3.8-10.6) k/uL RBC (3.80-5.40) m/uL Hgb (11.4-16.0) gm/dL Hct (34.0-46.0) % MCV (80.0-100.0) fL MCH (25.0-35.0) pg MCHC (31.0-37.0) g/dL RDW (11.5-15.5) % Plt Count (150-450) k/uL Neutrophils % % Lymphocytes % % Monocytes % % Eosinophils % % Basophils % % Neutrophils # (1.3-7.7) k/uL Lymphocytes # (1.0-4.8) k/uL Monocytes # (0-1.0) k/uL Eosinophils # (0-0.7) k/uL Basophils # (0-0.2) k/uL Sodium (137-145) mmol/L Potassium (3.5-5.1) mmol/L Chloride (98-107) mmol/L Carbon Dioxide (22-30) mmol/L Anion Gap mmol/L BUN (7-17) mg/dL Creatinine (0.52-1.04) mg/dL Est GFR (CKD-EPI)AfAm (>60 ml/min/1.73 sqM) Est GFR (CKD-EPI)NonAf (>60 ml/min/1.73 sqM) Glucose (74-99) mg/dL Calcium (8.4-10.2) mg/dL Magnesium (1.6-2.3) mg/dL Total Bilirubin (0.2-1.3) mg/dL AST (14-36) U/L ALT (9-52) U/L Alkaline Phosphatase (38-126) U/L Total Creatine Kinase (30-135) U/L CK-MB (CK-2) (0.0-2.4) ng/mL CK-MB (CK-2) Rel Index Troponin I (0.000-0.034) ng/mL NT-Pro-B Natriuret Pep 238 pg/mL Total Protein (6.3-8.2) g/dL Albumin (3.5-5.0) g/dL - Radiology Data Radiology results: report reviewed (CT pelvis shows no distinct abscess or cellulitis of pulse ox), image reviewed Disposition Clinical Impression: Acute exacerbation of chronic low back pain, Acute exacerbation of chronic bronchitis, Acute chest wall pain Disposition: ADMITTED IP TO THIS HOSP Condition: Fair Is patient prescribed a controlled substance at d/c from ED?: No
[2017-12-07] MEDS ORDERED: HYDROmorphone 1 MG/ML 1 ML SYRINGE IVP STA (14:34)
[2017-12-07] MEDS ORDERED: IPRATROPIUM 0.5 MG/2.5 ML NEBU INHALATION STA (14:54)
[2017-12-07] MEDS ORDERED: SODIUM CHLORIDE 0.9% 500 ML IV STA (14:54)
[2017-12-07] MEDS ORDERED: SODIUM CHLORIDE 0.9% 1,000 ML IV STA (14:54)
[2017-12-07] MEDS ORDERED: ALBUTEROL NEBULIZED 2.5 MG/3 ML INHALATION STA (14:54)
[2017-12-07] MEDS ORDERED: PIPERACILLIN-TAZOBACTAM 3.375 GM in DEXTROSE/WATER 1 50ML.BAG IVPB STA (14:55)
[2017-12-07] MEDS ORDERED: VANCOMYCIN IV PER PHARMACY 1 EACH MISC MISCELLANE PRN (14:55)
[2017-12-07] MEDS ORDERED: methylPREDNISolone SOD SUCCI 125 MG/2 ML VIAL IV STA (15:15)
[2017-12-07] MEDS ORDERED: diphenhydrAMINE 50 MG/ML 1 ML VIAL IVP STA (15:15)
[2017-12-07] MEDS ORDERED: FAMOTIDINE 20 MG/2 ML VIAL IV STA (15:15)
[2017-12-07 15:25] LABS: Creatine Kinase 130 U/L (30-135)
[2017-12-07 15:27] LABS: ALT 156 U/L (9-52); AST 45 U/L (14-36); Albumin 3.4 g/dL (3.5-5.0); Alkaline Phosphatase 96 U/L (38-126); Anion Gap 13 mmol/L; Blood Urea Nitrogen 12 mg/dL (7-17); Calcium 8.9 mg/dL (8.4-10.2); Carbon Dioxide 22 mmol/L (22-30); Chloride 104 mmol/L (98-107); Glucose 212 mg/dL (74-99); Magnesium 1.9 mg/dL (1.6-2.3); Potassium 3.2 mmol/L (3.5-5.1); Sodium 139 mmol/L (137-145); Total Bilirubin 0.5 mg/dL (0.2-1.3); Total Protein 6.3 g/dL (6.3-8.2)
[2017-12-07 15:34] LABS: Basophils % (A) 0 %; Eosinophils # (A) 0.1 k/uL (0-0.7); Eosinophils % (A) 1 %; HCT 46.6 % (34.0-46.0); HGB 14.9 gm/dL (11.4-16.0); Lymphocytes # (A) 2.5 k/uL (1.0-4.8); Lymphocytes % (A) 21 %; MCH 28.9 pg (25.0-35.0); MCV 90.3 fL (80.0-100.0); Mean Platelet Volume 8.3; Monocytes # (A) 1.2 k/uL (0-1.0); Monocytes % (A) 10 %; Neutrophils # (A) 7.7 k/uL (1.3-7.7); Neutrophils % (A) 66 %; Platelet Count 160 k/uL (150-450); RBC 5.16 m/uL (3.80-5.40); RDW 14.4 % (11.5-15.5); WBC 11.7 k/uL (3.8-10.6)
[2017-12-07 15:38] LABS: Creatine Kinase MB 1.1 ng/mL (0.0-2.4); Troponin I <0.012 ng/mL (0.000-0.034)
[2017-12-07] MEDS ORDERED: VANCOMYCIN 1,500 MG in SODIUM CHLORIDE 0.9% 250 ML IVPB ONE (16:00)
--- NOTE | 2017-12-07 16:33 | XR ---
EXAMINATION TYPE: XR chest 2V DATE OF EXAM: 12/07/2017 COMPARISON: 12/04/2017 HISTORY: Difficulty breathing TECHNIQUE: Frontal and lateral views of the chest are obtained. FINDINGS: There is coarsening of interstitial pulmonary markings. There is no gross heart failure. T here is left central venous catheter with tip in the superior vena cava. There is poor inspiration. T here is no definite pleural effusion. Exam is limited by the patient's size. IMPRESSION: Coarse lung markings. No pulmonary consolidation or overt heart failure. No change.
[2017-12-07] MEDS ORDERED: BACLOFEN 10 MG TAB PO PRN (17:12)
[2017-12-07] MEDS ORDERED: SENNOSIDES-DOCUSATE SODIUM 1 EACH TAB PO PRN (17:12)
[2017-12-07] MEDS ORDERED: DOCUSATE 100 MG CAP PO PRN (17:12)
[2017-12-07] MEDS ORDERED: ALPRAZolam 0.5 MG TAB PO PRN (17:12)
[2017-12-07] MEDS ORDERED: BUTALB/APAP/CAFF 50-325-40MG TAB PO PRN (17:12)
--- NOTE | 2017-12-07 17:34 | CT ---
EXAMINATION TYPE: CT pelvis w con DATE OF EXAM: 12/07/2017 COMPARISON: None HISTORY: Pelvic pain. CT DLP: 1415.9 mGycm Automated exposure control for dose reduction was used. CONTRAST: Performed with IV Contrast, patient injected with 100ml mL of Isovue M300. FINDINGS: There is ventral hernia that contains fat. Bladder distends smoothly with contrast. I see no intestin al wall thickening. There is no free fluid in the pelvis. There is no evidence of a pelvic mass. Ther e is hysterectomy. The bony pelvis is intact. Sacroiliac joints appear normal. Proximal femurs and hi p joints are intact. There is no sign of hip dysplasia. There is hysterectomy. Appendix appears mely l. IMPRESSION: THERE IS VENTRAL HERNIA WITH INCARCERATED OMENTAL FAT. NO ACUTE ABNORMALITY OF THE PELVIS. NORMAL JUDY ENDIX.
--- NOTE | 2017-12-07 17:34 | P.HPIM ---
History of Present Illness H&P Date: 12/07/17 Chief Complaint: Shortness of breath and pressure sores. Patient is a 47-year-old female with a known history of multiple medical problems including COPD, history of interstitial lung disease secondary to sarcoidosis, biopsy-proven at [facility], history of DVT/PE, hypertension, hyperlipidemia and other multiple medical problems came to ER with complaints of shortness of breath and chest pain. Patient is also complaining of pain in the buttock area and pressure sore. Patient is also complaining of subjective fevers. Patient was complete having worsening cough and pain when she coughs especially in the right lower rib case. No complaints of dizziness or lightheadedness. Chest pain of gets worse with cough. No radiation. Denied any hemoptysis. Denied any headache or dizziness or lightheadedness. Patient does have a history of bronchoscopy on 11/29/2017. Previous pleural fluid cultures showing MRSA, enterococcus fecaliths and streptococcal species. final cultures from bronchoscopy are still pending at this time. Patient is currently on vancomycin with a PICC line at home. Chest x-ray showed coarse lung markings. No pulmonary consolidation or overt heart failure. No change. WBC 11.7 Potassium 3.2 AST and ALT slightly elevated. EKG normal sinus rhythm Review of Systems Constitutional: Objective fevers and chills . No generalized weakness or weight loss. Abdomen: Patient denied nausea vomiting and diarrhea and abdominal pain. Cardiovascular: Patient denies any chest pain or short of breath no palpitations. Respiratory: Patient does have cough without much sputum production. Does have shortness of breath. Neurologic: Patient denied any numbness or tingling headache. Musculoskeletal: Patient denies any complaints of joint swelling or deformity. Skin: Soreness in the buttock area Psychiatric: Negative Endocrine: No heat or cold intolerance. No recent weight gain. Genitourinary: No dysuria or hematuria. All other 14 point ROS negative except the above Past Medical History Past Medical History: Blood Disorder, Heart Failure, COPD, Deep Vein Thrombosis (DVT), Hyperlipidemia, Hypertension, Myocardial Infarction (SD), Musculoskeletal Disorder, Pneumonia, Pulmonary Embolus (PE), Thyroid Disorder Additional Past Medical History / Comment(s): PE 2012; Sarcoidosis diagnosed in 2015 following a bronchoscopy and lung biopsy done at [facility] and she was started on predniosone and she took the therapy for almost 1 year, polycythemia, overweight, bilateral PE (2011, 2015), bilateral DVTs, fibromyalgia, bipolar disorder, degenerative disk disorder, coronary artery disease along with previous history of a SD and ventilator dependent respiratory failure with MRSA pneumonia for which the patient was hospitalized [facility] in 2012. Viral meningitis in October 2014. Pulmonary fibrosis, home 02 3l n/c Last Myocardial Infarction Date:: February 15, 2013 History of Any Multi-Drug Resistant Organisms: MRSA Date of last positivie culture/infection: 11/09/17 MDRO Source:: PLEURAL FLUID Past Surgical History: Section, Cholecystectomy, Heart Catheterization , Hernia Repair, Orthopedic Surgery Additional Past Surgical History / Comment(s): Lt ankle surgery, several bronchosopy-most recently 11/09/17 Past Anesthesia/Blood Transfusion Reactions: Motion Sickness, Postoperative Nausea & Vomiting (PONV) Additional Past Anesthesia/Blood Transfusion Reaction / Comment(s): previously charted -pt stated that last April she coded due to anesthetic Past Psychological History: Anxiety, Bipolar, Depression, Panic Disorder Smoking Status: Never smoker Past Alcohol Use History: None Reported Past Drug Use History: None Reported - Past Family History Father Family Medical History: Blood Disorder, Congestive Heart Failure (CHF), CVA/TIA , Deep Vein Thrombosis (DVT), Myocardial Infarction (SD) Additional Family Medical History / Comment(s): polycythemia Mother Family Medical History: Congestive Heart Failure (CHF), Diabetes Mellitus, Deep Vein Thrombosis (DVT), Myocardial Infarction (SD), Musculoskeletal Disorder Additional Family Medical History / Comment(s): DDD Sister(s) Family Medical History: No Reported History Brother(s) Family Medical History: No Reported History Son(s) Family Medical History: No Reported History Daughter(s) Family Medical History: No Reported History Medications and Allergies Home Medications Medication Instructions Recorded Confirmed Type FLUoxetine HCL [PROzac] 20 mg PO DAILY #30 capsule 08/20/15 12/07/17 Rx Metoprolol Tartrate [Lopressor] 50 mg PO BID #60 tab 08/20/15 12/07/17 Rx lamoTRIgine [LaMICtal] 200 mg PO DAILY 03/22/16 12/07/17 History Bumetanide 4 mg PO QAM 10/18/16 12/07/17 History Butalb/APAP/Caff 50-325-40Mg 1 tab PO Q4H PRN 10/18/16 12/07/17 History [Fioricet 50-325-40] Ondansetron HCl [Zofran] 4 mg PO BID PRN 10/18/16 12/07/17 History Mirtazapine [Remeron] 45 mg PO HS 04/10/17 12/07/17 History ALPRAZolam [Xanax] 0.5 mg PO TID PRN 06/06/17 12/07/17 History Bumetanide [BUMEX] 2 mg PO DAILY@1200 09/16/17 12/07/17 History Pregabalin [Lyrica] 150 mg PO BID 09/16/17 12/07/17 History busPIRone HCL [Buspar] 30 mg PO BID 09/16/17 12/07/17 History Baclofen [Lioresal] 20 mg PO Q8H PRN 10/09/17 12/07/17 History Morphine Sulfate ER [Ms Contin] 30 mg PO Q8H PRN 11/03/17 12/07/17 History Nystatin 100,000 Unit/gm Powd 1 applic TOPICAL BID 11/04/17 12/07/17 History [Mycostatin Powder] Promethazine/Dextromethorphan 5 ml PO Q6H PRN 11/04/17 12/07/17 History [Promethazine-Dm Solution] Docusate [Colace] 100 mg PO BID PRN #60 cap 11/10/17 12/07/17 Rx Ipratropium-Albuterol Nebulize 3 ml INHALATION RT-QID #120 11/10/17 12/07/17 Rx [Duoneb 0.5 mg-3 mg/3 ml Soln] ampul.neb Potassium Chloride ER [K-Dur 20] 20 meq PO DAILY #30 tab.er.prt 11/10/17 Rx guaiFENesin [Mucinex] 1,200 mg PO Q12HR #40 tablet.er 11/10/17 12/07/17 Rx Fluconazole 200 mg PO DAILY #14 tab 11/13/17 12/07/17 Rx Ibuprofen [Advil] 800 mg PO Q8HR PRN 11/22/17 12/07/17 History Warfarin [Coumadin] 10 mg PO DAILY@1800 tab 12/04/17 12/07/17 Rx predniSONE 10 mg PO DAILY #30 tab 12/04/17 12/07/17 Rx Sennosides-Docusate Sodium 2 tab PO BID PRN 12/07/17 12/07/17 History [Senokot-S] Vancomycin 1,750 mg IVPB Q8H 12/07/17 12/07/17 History Allergies Allergy/AdvReac Type Severity Reaction Status Date / Time ketorolac tromethamine Allergy Severe Anaphylaxis Verified 12/07/17 13:49 [From Toradol] Opioids - Morphine Analogues Allergy Mild Itching Verified 12/07/17 13:49 Iodinated Contrast- Oral and Allergy Unknown Verified 12/07/17 13:49 IV Dye rivaroxaban [From Xarelto] Allergy Rash/Hives Verified 12/07/17 13:49 sumatriptan [From Imitrex] Allergy Anaphylaxis Verified 12/07/17 13:49 sumatriptan succinate Allergy Anaphylaxis Verified 12/07/17 13:49 [From Imitrex] morphine AdvReac Severe Itching Verified 12/07/17 13:49 iodine AdvReac Intermediate Itching Verified 12/07/17 13:49 tramadol AdvReac Anaphylaxis Verified 12/07/17 13:49 vancomycin AdvReac Itching Verified 12/07/17 13:49 Rich wipes AdvReac Severe Rash/Hives Uncoded 12/07/17 13:07 Physical Exam Vitals: Vital Signs Temp Pulse Resp BP Pulse Ox 12/07/17 16:40 92 22 133/89 95 12/07/17 15:58 95 22 147/78 95 12/07/17 15:57 96 12/07/17 15:44 87 12/07/17 15:19 100 12/07/17 14:42 87 22 160/78 95 12/07/17 14:10 22 12/07/17 13:02 98.4 F 84 24 119/81 97 Intake and Output 12/07/17 12/07/17 12/07/17 06:59 14:59 22:59 Other: Weight 108.862 kg PHYSICAL EXAMINATION: Patient is lying in the bed comfortably, no acute distress, awake alert and oriented.. HEENT: Normocephalic. Neck is supple. Pupils reactive. Nostrils clear. Oral cavity is moist. Ears reveal no drainage. Neck reveals no JVD, carotid bruits, or thyromegaly. CHEST EXAMINATION: Trachea is central. Symmetrical expansion. Bilateral expiratory wheeze. Minimal rhonchi.. CARDIAC: Normal S1, S2 with no gallops. No murmurs ABDOMEN: Soft. Bowel sounds normal. No organomegaly. No abdominal bruits. Extremities: reveal no edema. No clubbing or cyanosis Neurologically awake, alert, oriented x3 with well-coordinated movements. No focal deficits noted Skin: No rash or skin lesions. Patient does have a 2 x 2 centimeter skin sore with no open wound. Tender to palpation. No fluid collection noted. Psychiatric: Coperative. Nonsuicidal Musculoskeletal: No joint swelling or deformity. Normal range of motion. Results CBC & Chem 7: 12/07/17 14:00 12/07/17 14:00 Labs: Abnormal Lab Results - Last 24 Hours (Table) 12/07/17 12/07/17 Range/Units 14:00 14:00 WBC 11.7 H (3.8-10.6) k/uL Hct 46.6 H (34.0-46.0) % Monocytes # 1.2 H (0-1.0) k/uL Potassium 3.2 L (3.5-5.1) mmol/L Glucose 212 H (74-99) mg/dL AST 45 H (14-36) U/L ALT 156 H (9-52) U/L Albumin 3.4 L (3.5-5.0) g/dL Thrombosis Risk Factor Assmnt - DVT/VTE Prophylaxis DVT/VTE Prophylaxis: Pharmacologic Prophylaxis ordered Assessment and Plan Assessment: Shortness of breath secondary to acute COPD exacerbation Recently history of MRSA and enterococcus fecalis and strep and mima in the bronchial cultures. Currently on vancomycin at home IV via PICC line. Chest pain most likely musculoskeletal due to cough. Troponin 1 negative Pain/tenderness in the right buttock upper area. No ulcer was noted. Chronic interstitial lung disease secondary to sarcoidosis. Biopsy at [facility] in 2014 Chronic hypoxic respiratory failure secondary to COPD History of pulmonary embolism and DVT. Currently on long-term anticoagulation with Coumadin. Nicotine addiction Morbid obesity Possible obstructive sleep apnea Anxiety Bipolar disorder Degenerative disc disease Hypertension and hyperlipidemia Fibromyalgia Coronary artery disease with history of SD. No history of PCI. Mild hypokalemia DVT prophylaxis patient is oriented Coumadin neck some eczema plan: Patient will be continued on antibiotics in the form of vancomycin. Continue with present in place and IV steroids were started. Continue the home medications and pain management. Coumadin dosing. Pulmonary was consulted. Oxygen therapy and follow up closely. Fur Time with Patient: Greater than 30
[2017-12-07] MEDS: HYDROmorphone 1 MG/ML 1 ML SYRINGE IVP PRN ×2 (18:45→22:40)
[2017-12-07 20:17] VITALS: BMI 40.6
[2017-12-07 20:43] LABS: Glucose,Whole Blood 223 mg/dL (75-99)
[2017-12-07] MEDS: IPRATROPIUM-ALBUTEROL 3 ML NEB INHALATION SCH ×2 (20:54)
[2017-12-07] MEDS ORDERED: Magnesium Replacement Protocol 1 EACH MISC MISCELLANE PRN (20:59)
[2017-12-07] MEDS ORDERED: Potassium Replacement Protocol 1 EACH MISC MISCELLANE PRN (21:00)
[2017-12-07] MEDS: METOPROLOL TARTRATE 50 MG TAB PO SCH (21:45)
[2017-12-07] MEDS: busPIRone HCl 10 MG TAB PO SCH (21:45)
[2017-12-07] MEDS: WARFARIN 10 MG TAB PO SCH (21:45)
[2017-12-07] MEDS: guaiFENesin 600 MG TABLET.ER PO SCH (21:46)
[2017-12-07] MEDS: INSULIN ASPART 100 UNIT/ML 1 ML 10 ML VIAL SQ SCH (21:50)
[2017-12-07] MEDS: MORPHINE SULFATE ER 30 MG TABLET PO PRN (21:51)
[2017-12-07] MEDS: MIRTAZAPINE 45 MG TABLET PO SCH (21:52)
[2017-12-07] MEDS: PREGABALIN 50 MG CAP PO SCH ×2 (21:52→22:01)
[2017-12-07] MEDS: POTASSIUM CHLORIDE ER 20 MEQ TAB.ER PO SCH ×2 (21:52→23:13)
[2017-12-07] MEDS: NYSTATIN 100,000 UNIT/GM POWD 15 GM TOPICAL SCH (21:53)
[2017-12-07] MEDS: diphenhydrAMINE 50 MG/ML 1 ML VIAL IVP SCH (23:58)
[2017-12-07] MEDS: PIPERACILLIN-TAZOBACTAM 3.375 GM in DEXTROSE/WATER 1 50ML.BAG IVPB SCH (23:59)
[2017-12-07] MEDS: VANCOMYCIN 1,500 MG in SODIUM CHLORIDE 0.9% 250 ML IVPB SCH (23:59)
[2017-12-08] MEDS: POTASSIUM CHLORIDE ER 20 MEQ TAB.ER PO SCH ×2 (00:03→08:41)
[2017-12-08] MEDS: HYDROmorphone 1 MG/ML 1 ML SYRINGE IVP PRN ×6 (02:47→23:33)
[2017-12-08 06:08] LABS: Glucose,Whole Blood 255 mg/dL (75-99)
[2017-12-08 06:37] LABS: Basophils % (A) 0 %; Eosinophils % (A) 0 %; HGB 13.4 gm/dL (11.4-16.0); Lymphocytes # (A) 0.7 k/uL (1.0-4.8); Lymphocytes % (A) 6 %; MCH 29.7 pg (25.0-35.0); MCHC 32.7 g/dL (31.0-37.0); MCV 90.8 fL (80.0-100.0); Mean Platelet Volume 7.5; Monocytes # (A) 0.4 k/uL (0-1.0); Monocytes % (A) 3 %; Neutrophils # (A) 10.6 k/uL (1.3-7.7); Neutrophils % (A) 90 %; Platelet Count 152 k/uL (150-450); RBC 4.51 m/uL (3.80-5.40); RDW 14.1 % (11.5-15.5); WBC 11.8 k/uL (3.8-10.6)
[2017-12-08 06:40] LABS: INR 1.6 (<1.2); Prothrombin Time 14.9 sec (9.0-12.0)
[2017-12-08] MEDS: INSULIN ASPART 100 UNIT/ML 1 ML 10 ML VIAL SQ SCH ×4 (06:45→21:12)
[2017-12-08 07:00] LABS: Anion Gap 8 mmol/L; Blood Urea Nitrogen 15 mg/dL (7-17); Calcium 8.6 mg/dL (8.4-10.2); Carbon Dioxide 23 mmol/L (22-30); Chloride 103 mmol/L (98-107); Glucose 255 mg/dL (74-99); Magnesium 2.4 mg/dL (1.6-2.3); Potassium 4.5 mmol/L (3.5-5.1); Sodium 134 mmol/L (137-145)
[2017-12-08] MEDS: IPRATROPIUM-ALBUTEROL 3 ML NEB INHALATION SCH ×4 (07:52→20:19)
[2017-12-08] MEDS: diphenhydrAMINE 50 MG/ML 1 ML VIAL IVP SCH ×2 (08:34→16:52)
[2017-12-08] MEDS: methylPREDNISolone SOD SUCCI 40 MG/ML 1 ML VIAL IV SCH ×2 (08:35)
[2017-12-08] MEDS: MORPHINE SULFATE ER 30 MG TABLET PO PRN (08:37)
[2017-12-08] MEDS: guaiFENesin 600 MG TABLET.ER PO SCH ×2 (08:41→21:07)
[2017-12-08] MEDS: FLUoxetine HCL 20 MG CAP PO SCH (08:41)
[2017-12-08] MEDS: PREGABALIN 50 MG CAP PO SCH ×2 (08:41→21:13)
[2017-12-08] MEDS: FLUCONAZOLE 100 MG TAB PO SCH (08:41)
[2017-12-08] MEDS: busPIRone HCl 10 MG TAB PO SCH ×2 (08:41→21:07)
[2017-12-08] MEDS: METOPROLOL TARTRATE 50 MG TAB PO SCH ×2 (08:41→21:07)
[2017-12-08] MEDS: lamoTRIgine 100 MG TAB PO SCH (08:41)
[2017-12-08] MEDS: NYSTATIN 100,000 UNIT/GM POWD 15 GM TOPICAL SCH ×2 (08:42→21:09)
[2017-12-08] MEDS: PIPERACILLIN-TAZOBACTAM 3.375 GM in DEXTROSE/WATER 1 50ML.BAG IVPB SCH (08:42)
[2017-12-08] MEDS: VANCOMYCIN 1,500 MG in SODIUM CHLORIDE 0.9% 250 ML IVPB SCH ×2 (08:42→16:52)
[2017-12-08] MEDS ORDERED: BUMETANIDE 4 MG PO SCH (09:00)
[2017-12-08] MEDS ORDERED: predniSONE 10 MG TAB PO SCH (09:00)
--- NOTE | 2017-12-08 09:45 | XR ---
EXAMINATION TYPE: XR chest 1V portable DATE OF EXAM: 12/08/2017 HISTORY: picc line placement. REFERENCE: Previous study dated 12/07/2017. FINDINGS: The study is limited by the patient's tremendous size. A left basilic PICC line has been inserted. Its tip is in the superior vena cava. The heart is mildly enlarged. There is mild vascular congestion without jose g edema. No definite pleu ral fluid is seen. IMPRESSION: 1. NO EVIDENT POST PICC LINE INSERTION COMPLICATION. 2. CARDIOMEGALY AND MILD VASCULAR CONGESTION..
[2017-12-08] MEDS: BUMETANIDE 1 MG TAB PO SCH (11:21)
[2017-12-08 11:46] LABS: Glucose,Whole Blood 191 mg/dL (75-99)
--- NOTE | 2017-12-08 13:17 | P.CNPUL ---
History of Present Illness Consult date: 12/08/17 Reason for consult: dyspnea, COPD History of present illness: Vanita is 47 with history of COPD, and previous history of sarcoidosis that was biopsy-proven and the patient's disease is currently inactive and she has some chronic fibrotic changes bilaterally. She has had issues with chronic pain and probably chronic narcotic medication dependence. She has previous history of DVT and pulmonary embolism. He is on no anticoagulants for now. She has hypertension and hyperlipidemia and coronary artery disease with previous MO. The patient has had 2 [id number] hospitalizations in October 2017. Initially the patient came in with an acute COPD exacerbation and some limited pneumonia. Bronchoscopy at that time showed a combination of MRSA, Enterococcus faecalis and Staphylococcus species. Based on this the patient was given Bactrim and he was discharged home. She decompensated she came back to the hospital and she was seen by infectious disease and she was placed on IV vancomycin via PICC line. Note that the second bronchoscopy was done and the cultures came back negative on 11/29/2017. The positive cultures were from 11/09/2017. Yesterday, the patient and out of her painkillers. She was complaining of pain and achiness over the chest. Despite ongoing pain, the patient was having no major respiratory distress. No sputum production. No fever or chills. No hemoptysis. Chest x-ray findings are essentially unchanged. She has developed a stage I bedsore without any evidence of an infection. CAT scan of the abdomen was also done for some pelvic pain and the patient was found to have a ventral hernia with incarcerated omental fat and otherwise there was no other abnormalities within the pelvis and the appendix and the pelvic structures were all within normal limits. She was apparently on 10 mg a prednisone on outpatient basis and she is action dependent. Her IV vancomycin will be continued for now. UTI no subtherapeutic with an INR of 1.6. She is on warfarin. Review of Systems Constitutional: Reports fatigue, Reports weakness, Reports weight gain Eyes: denies blurred vision, denies bulging eye, denies decreased vision Ears: deny: decreased hearing, ear discharge, earache, tinnitus Ears, nose, mouth and throat: Denies headache, Denies sore throat Cardiovascular: Reports decreased exercise tolerance, Reports dyspnea on exertion, Reports shortness of breath Respiratory: Reports cough, Reports dyspnea, Reports wheezing, reports skeletal chest wall pain especially on the right side with breathing coughing and movement. Gastrointestinal: Denies abdominal pain, Denies diarrhea, Denies nausea, Denies vomiting Genitourinary: Denies dysuria, Denies hematuria Menstruation: Reports as per HPI Musculoskeletal: Reports as per HPI Musculoskeletal: absent: ankle pain, ankle stiffness, ankle swelling Integumentary: Denies pruritus, Denies rash, the patient has a healed bedsore in her sacral area involving the right buttock cheek. Neurological: Reports weakness Psychiatric: Increased anxiety, Denies depression, and suspected drug seeking behavior Endocrine: Denies fatigue, Denies weight change Hematologic/Lymphatic: Reports as per HPI Allergic/Immunologic: Reports as per HPI Past Medical History Past Medical History: Blood Disorder, Heart Failure, COPD, Deep Vein Thrombosis (DVT), Hyperlipidemia, Hypertension, Myocardial Infarction (MO), Musculoskeletal Disorder, Pneumonia, Pulmonary Embolus (PE) Additional Past Medical History / Comment(s): PE 2012; Sarcoidosis diagnosed in 2015 following a bronchoscopy and lung biopsy done at [facility] and she was started on predniosone and she took the therapy for almost 1 year, polycythemia, overweight, bilateral PE (2011, 2015), bilateral DVTs, fibromyalgia, bipolar disorder, degenerative disk disorder, coronary artery disease along with previous history of a MO and ventilator dependent respiratory failure with MRSA pneumonia for which the patient was hospitalized [facility] in 2012. Viral meningitis in October 2014. Pulmonary fibrosis, home 02 3l n/c Last Myocardial Infarction Date:: February 15, 2013 History of Any Multi-Drug Resistant Organisms: MRSA Date of last positivie culture/infection: 11/09/17 MDRO Source:: PLEURAL FLUID Past Surgical History: Section, Cholecystectomy, Heart Catheterization , Hernia Repair, Orthopedic Surgery Additional Past Surgical History / Comment(s): Lt ankle surgery, several bronchosopy-most recently 11/09/17 Past Anesthesia/Blood Transfusion Reactions: Motion Sickness, Postoperative Nausea & Vomiting (PONV) Additional Past Anesthesia/Blood Transfusion Reaction / Comment(s): previously charted -pt stated that last April she coded due to anesthetic Past Psychological History: Anxiety, Bipolar, Depression, Panic Disorder Additional Psychological History / Comment(s): and lives in the family home with her . No recent travel. No experience Smoking Status: Former smoker Past Alcohol Use History: None Reported Additional Past Alcohol Use History / Comment(s): patient lives with her significant other. last admit 11-03-17 pt was smoking 1ppd- pt's celia stated she continues to smoked but he's not suere how much and it depends on how stressed she gets". denies alcohol use or recreational drug use. Patient is currently not working. No service. No recent travel. No animal exposures. She did leave the hospital AMA in March 2017 and October 2017. Difficulties with ongoing medical noncompliance. Patient quit smoking 3 weeks ago. There is a dog in the home. Past Drug Use History: None Reported - Past Family History Father Family Medical History: Blood Disorder, Congestive Heart Failure (CHF), CVA/TIA , Deep Vein Thrombosis (DVT), Myocardial Infarction (MO) Additional Family Medical History / Comment(s): polycythemia Mother Family Medical History: Congestive Heart Failure (CHF), Diabetes Mellitus, Deep Vein Thrombosis (DVT), Myocardial Infarction (MO), Musculoskeletal Disorder Additional Family Medical History / Comment(s): DDD Sister(s) Family Medical History: No Reported History Brother(s) Family Medical History: No Reported History Son(s) Family Medical History: No Reported History Daughter(s) Family Medical History: No Reported History Medications and Allergies Home Medications Medication Instructions Recorded Confirmed Type FLUoxetine HCL [PROzac] 20 mg PO DAILY #30 capsule 08/20/15 12/07/17 Rx Metoprolol Tartrate [Lopressor] 50 mg PO BID #60 tab 08/20/15 12/07/17 Rx lamoTRIgine [LaMICtal] 200 mg PO DAILY 03/22/16 12/07/17 History Bumetanide 4 mg PO QAM 10/18/16 12/07/17 History Butalb/APAP/Caff 50-325-40Mg 1 tab PO Q4H PRN 10/18/16 12/07/17 History [Fioricet 50-325-40] Ondansetron HCl [Zofran] 4 mg PO BID PRN 10/18/16 12/07/17 History Mirtazapine [Remeron] 45 mg PO HS 04/10/17 12/07/17 History ALPRAZolam [Xanax] 0.5 mg PO TID PRN 06/06/17 12/07/17 History Bumetanide [BUMEX] 2 mg PO DAILY@1200 09/16/17 12/07/17 History Pregabalin [Lyrica] 150 mg PO BID 09/16/17 12/07/17 History busPIRone HCL [Buspar] 30 mg PO BID 09/16/17 12/07/17 History Baclofen [Lioresal] 20 mg PO Q8H PRN 10/09/17 12/07/17 History Morphine Sulfate ER [Ms Contin] 30 mg PO Q8H PRN 11/03/17 12/07/17 History Nystatin 100,000 Unit/gm Powd 1 applic TOPICAL BID 11/04/17 12/07/17 History [Mycostatin Powder] Promethazine/Dextromethorphan 5 ml PO Q6H PRN 11/04/17 12/07/17 History [Promethazine-Dm Solution] Docusate [Colace] 100 mg PO BID PRN #60 cap 11/10/17 12/07/17 Rx Ipratropium-Albuterol Nebulize 3 ml INHALATION RT-QID #120 11/10/17 12/07/17 Rx [Duoneb 0.5 mg-3 mg/3 ml Soln] ampul.neb Potassium Chloride ER [K-Dur 20] 20 meq PO DAILY #30 tab.er.prt 11/10/17 Rx guaiFENesin [Mucinex] 1,200 mg PO Q12HR #40 tablet.er 11/10/17 12/07/17 Rx Fluconazole 200 mg PO DAILY #14 tab 11/13/17 12/07/17 Rx Ibuprofen [Advil] 800 mg PO Q8HR PRN 11/22/17 12/07/17 History Warfarin [Coumadin] 10 mg PO DAILY@1800 tab 12/04/17 12/07/17 Rx predniSONE 10 mg PO DAILY #30 tab 12/04/17 12/07/17 Rx Sennosides-Docusate Sodium 2 tab PO BID PRN 12/07/17 12/07/17 History [Senokot-S] Vancomycin 1,750 mg IVPB Q8H 12/07/17 12/07/17 History Allergies Allergy/AdvReac Type Severity Reaction Status Date / Time ketorolac tromethamine Allergy Severe Anaphylaxis Verified 12/07/17 13:49 [From Toradol] Opioids - Morphine Analogues Allergy Mild Itching Verified 12/07/17 13:49 Iodinated Contrast- Oral and Allergy Unknown Verified 12/07/17 13:49 IV Dye rivaroxaban [From Xarelto] Allergy Rash/Hives Verified 12/07/17 13:49 sumatriptan [From Imitrex] Allergy Anaphylaxis Verified 12/07/17 13:49 sumatriptan succinate Allergy Anaphylaxis Verified 12/07/17 13:49 [From Imitrex] morphine AdvReac Severe Itching Verified 12/07/17 13:49 iodine AdvReac Intermediate Itching Verified 12/07/17 13:49 tramadol AdvReac Anaphylaxis Verified 12/07/17 13:49 vancomycin AdvReac Itching Verified 12/07/17 13:49 Rich wipes AdvReac Severe Rash/Hives Uncoded 12/07/17 13:07 Physical Exam Vitals: Vital Signs Temp Pulse Pulse Resp BP BP Pulse Ox 12/08/17 11:34 84 12/08/17 11:18 84 12/08/17 08:15 84 12/08/17 08:00 97.9 F 83 16 120/68 94 L 12/08/17 07:52 84 12/08/17 02:45 97.0 F L 80 18 101/55 96 12/08/17 00:00 97.8 F 96 18 114/92 93 L 12/07/17 21:04 82 12/07/17 20:54 79 12/07/17 20:11 98.6 F 90 18 143/61 98 12/07/17 19:45 98.6 F 90 18 143/61 98 12/07/17 19:35 97.9 F 80 18 110/61 96 12/07/17 18:41 81 18 119/70 96 12/07/17 17:40 82 20 117/66 94 L 12/07/17 16:40 92 22 133/89 95 12/07/17 15:58 95 22 147/78 95 12/07/17 15:57 96 12/07/17 15:44 87 12/07/17 15:19 100 12/07/17 14:42 87 22 160/78 95 12/07/17 14:10 22 Intake and Output 12/07/17 12/08/17 12/08/17 22:59 06:59 14:59 Other: # Voids 2 2 Weight 110.8 kg 110.8 kg GENERAL EXAM: Alert, pleasant, obese HEAD: Normocephalic/atraumatic. EYES: Normal reaction of pupils, equal size. Conjunctiva pink, sclera white. NOSE: Clear with pink turbinates. THROAT: No erythema or exudates. NECK: No masses, no JVD, no thyroid enlargement, no adenopathy. CHEST: No chest wall deformity. Symmetrical expansion. LUNGS: Lung sounds are diminished and there is no significant wheezing and the patient's air entry is improved and much better compared to her previous admissions and hospitalizations. CVS: Regular rate and rhythm, normal S1 and S2, no gallops, no murmurs, no rubs ABDOMEN: Soft, nontender. No hepatosplenomegaly, normal bowel sounds, no guarding or rigidity. EXTREMITIES: No clubbing, no edema, no cyanosis, 2+ pulses and upper and lower extremities. MUSCULOSKELETAL: Muscle strength and tone normal. SPINE: No scoliosis or deformity SKIN: No rashes, healed stage I ulcer in her right buttocks. CENTRAL NERVOUS SYSTEM: Alert and oriented -3. No focal deficits, tone is normal in all 4 extremities. PSYCHIATRIC: Alert and oriented -3. Appropriate affect. Intact judgment and insight. Results - Laboratory Findings CBC and BMP: 12/08/17 06:14 12/08/17 06:14 PT/INR, D-dimer PT 14.9 sec (9.0-12.0) H 12/08/17 06:14 INR 1.6 (<1.2) H 12/08/17 06:14 Abnormal lab findings: Abnormal Labs 12/07/17 12/07/17 12/07/17 14:00 14:00 20:42 WBC 11.7 H Hct 46.6 H Neutrophils # Lymphocytes # Monocytes # 1.2 H PT INR Sodium Potassium 3.2 L Glucose 212 H POC Glucose (mg/dL) 223 H Magnesium AST 45 H ALT 156 H Albumin 3.4 L 12/08/17 12/08/17 12/08/17 06:06 06:14 06:14 WBC 11.8 H Hct Neutrophils # 10.6 H Lymphocytes # 0.7 L Monocytes # PT INR Sodium 134 L Potassium Glucose 255 H POC Glucose (mg/dL) 255 H Magnesium 2.4 H AST ALT Albumin 12/08/17 12/08/17 06:14 11:43 WBC Hct Neutrophils # Lymphocytes # Monocytes # PT 14.9 H INR 1.6 H Sodium Potassium Glucose POC Glucose (mg/dL) 191 H Magnesium AST ALT Albumin - Diagnostic Findings Chest x-ray: image reviewed Assessment and Plan Plan: #1. COPD currently inactive in stable as the patient completed IV antibiotics with vancomycin via PICC line on outpatient basis. No interval signs of COPD exacerbation. #2. Musculoskeletal chest wall pain secondary to cough. Chest x-ray shows increased interstitial markings probably related to a previous sarcoidosis. The patient also demonstrates drug seeking behavior as the patient seems to have narcotic medication dependence. #3. Chronic hypoxic respiratory failure secondary to above, currently inactive in stable #4. Sarcoidosis, confirmed by lung biopsy at [facility] 2014, treated with systemic steroids that was ultimately weaned off and discontinued #5. History of pulmonary embolisms in 2011, 2016, DVTs, currently on anticoagulation with Coumadin, with sub therapeutic PT/INR #6. Nicotine addiction, ongoing, currently down to 2 cigarettes per day, carries over [id number] smoking history #7. Obesity with features of obstructive sleep apnea #8. Anxiety #9. CAD, history of myocardial infarction #10. Recurrent hospitalizations for respiratory complications #11. Bipolar disorder #12. Degenerative disc disease #13. Hypertension #14 hyperlipidemia #15 fibromyalgia Plan Drop the prednisone to 10 mg by mouth daily. This continued IV Zosyn. Continue vancomycin. I make the appropriate Coumadin dose adjustments to adjust PT/INR. Possible discharge within next 24 hours. She is requiring Dilaudid for pain control milligram every 4 hours when necessary, switch this patient oral [place] at a time of discharge.
[2017-12-08 13:46] LABS: Hemoglobin A1C 6.7 % (4.0-6.0)
[2017-12-08 16:23] LABS: Glucose,Whole Blood 222 mg/dL (75-99)
[2017-12-08] MEDS: WARFARIN 10 MG TAB PO SCH (16:59)
--- NOTE | 2017-12-08 19:50 | PN ---
Date of service : 12/08/2017 PROGRESS NOTE INTERVAL HISTORY: This is a 47-year-old female patient with a history of COPD, interstitial lung disease secondary to sarcoidosis, history of DVT/PE, hypertension, hyperlipidemia, who came into the emergency room with complaints of shortness of breath and chest pain. The patient was also complaining of pain in her buttocks area secondary to pressure sore. 12/08/2017, patient was seen and examined at bedside. She has been just returning from the restroom. She seems to be quite dyspneic. However, patient mentioned her breathing is improved from yesterday. The patient denied any fever, chills for diaphoresis. Denied chest pain or palpitation. Denied worsening shortness of breath, cough or sputum production. Denied abdominal pain, nausea, vomiting, diarrhea, or constipation. Denied urgency, frequency, dysuria. Denied hematuria, melena, hematochezia. Patient was evaluated by pulmonary service. The patient does have a history of bronchoscopy on November 29, 2017. Che fluid culture showed MRSA, Enterococcus faecalis and Streptococcus species. The patient was on vancomycin with a PICC line at home. CURRENT MEDICATIONS: 1. DuoNeb breathing treatment q.i.d. 2. Xanax 0.5 mg t.i.d. p.r.n. 3. Baclofen 20 mg q.8 hours p.r.n. 4. Bumex 2 mg p.o. daily. 5. BuSpar 30 mg b.i.d. 6. Benadryl 25 mg IV push q.8 hours. 7. Colace 100 mg b.i.d. p.r.n. 8. Diflucan 200 mg p.o. daily. 9. Prozac 20 mg daily. 10.Mucinex 1200 mg p.o. q.12 hours. 11.Dilaudid 1 mg q.4 hours p.r.n. for pain. 12.Insulin aspartate sliding scale coverage. 13.Lamictal 200 mg p.o. daily. 14.Lopressor 50 mg b.i.d. 15.Remeron 45 mg q.h.s. 16.Vancomycin, pharmacy to dose IV piggyback. 17.MS Contin 30 mg q.8 hours p.r.n. 18.Nystatin powder 1 application b.i.d. 19.Potassium 20 mEq daily. 20.Prednisone 10 mg daily. 21.Lyrica 150 mg b.i.d. 22.Senna 2 tablets b.i.d. p.r.n. for constipation. 23.Coumadin 10 mg daily. PHYSICAL EXAMINATION: Vital signs temperature 97, heart rate 85, respiratory rate 16, blood pressure 111/84, oxygen saturation 94% on room air. GENERAL: The patient is sitting at the side of the bed. Awake, oriented x3, HEENT: Pupils are round, equal, reacting to light. NECK: Supple. No JVD. CARDIOVASCULAR: S1, S2 present.Regular rate and rhythm. No S3 or S4. PULMONARY: Lung sounds are diminished with expiratory wheezing bilaterally. ABDOMEN: Obese, soft, nondistended, nontender. Bowel sounds are normoactive. MUSCULOSKELETAL: No joint swelling or deformity. EXTREMITIES: No significant edema. Pedal pulses 2+ bilaterally. NEUROLOGIC: Awake, oriented x3. No focal neural deficit noted. SKIN: stage 2 pressure sore left buttocks area PSYCHIATRIC: Anxious Lab RESULTS and x-ray results reviewed ASSESSMENT AND PLAN: 1. Shortness of breath secondary to acute COPD exacerbation, currently stable. 2. Recent history of MRSA and enterococcus faecalis and Lou in the bronchial cultures. Continue with antibiotic vancomycin and Diflucan. 3. Chest pain most likely musculoskeletal due to cough. Cardiac workup negative. 4. Pain tenderness in the right buttock, the patient has a stage II pressure ulcer. Advise to change positions and avoid pressure points. 5. Chronic interstitial lung disease secondary to sarcoidosis. 6. Chronic hypoxic respiratory failure secondary to COPD, currently stable. 7. History of pulmonary embolism and DVT, currently on Coumadin. 8. Coumadin monitoring. 9. Nicotine addiction. 10.Morbid obesity. 11.Possible obstructive sleep apnea. 12.Anxiety. 13.Bipolar disorder. 14.Degenerated disc disease. 15.Hypertension. 16.Hyperlipidemia. 17.Fibromyalgia and chronic pain syndrome. PLAN: We will continue with the current medications an antibiotic in the form of vancomycin and Diflucan. Continue nebulized bronchodilators. Continue Coumadin therapy for anticoagulation. Continue GI prophylaxis. The patient is being followed by pulmonary service as well. Monitor patient closely. Further plans based on her clinical course. I performed a History & Physical Examination of the patient and discussed their management with nurse practitioner. I reviewed the nurse practitioner's note and agree with the documented findings and plan of care. MMODL / IJN: [id number] / MARY BETH
[2017-12-08 20:28] LABS: Glucose,Whole Blood 165 mg/dL (75-99)
[2017-12-08] MEDS: MIRTAZAPINE 45 MG TABLET PO SCH (21:07)
[2017-12-08 22:31] VITALS: RESP 18
[2017-12-08] MEDS ORDERED: VANCOMYCIN TROUGH DUE 1 EACH MISC MISCELLANE ONE (23:00)
[2017-12-09] MEDS: VANCOMYCIN 1,500 MG in SODIUM CHLORIDE 0.9% 250 ML IVPB SCH ×2 (00:01→08:05)
[2017-12-09] MEDS: HYDROmorphone 1 MG/ML 1 ML SYRINGE IVP PRN ×3 (03:31→12:10)
[2017-12-09 06:23] LABS: Glucose,Whole Blood 111 mg/dL (75-99)
[2017-12-09] MEDS: INSULIN ASPART 100 UNIT/ML 1 ML 10 ML VIAL SQ SCH ×2 (06:58→12:49)
[2017-12-09] MEDS: diphenhydrAMINE 50 MG/ML 1 ML VIAL IVP SCH ×2 (08:01)
[2017-12-09] MEDS: FLUoxetine HCL 20 MG CAP PO SCH (08:07)
[2017-12-09] MEDS: guaiFENesin 600 MG TABLET.ER PO SCH (08:07)
[2017-12-09] MEDS: POTASSIUM CHLORIDE ER 20 MEQ TAB.ER PO SCH (08:07)
[2017-12-09] MEDS: lamoTRIgine 100 MG TAB PO SCH (08:07)
[2017-12-09] MEDS: METOPROLOL TARTRATE 50 MG TAB PO SCH (08:07)
[2017-12-09] MEDS: NYSTATIN 100,000 UNIT/GM POWD 15 GM TOPICAL SCH (08:08)
[2017-12-09] MEDS: FLUCONAZOLE 100 MG TAB PO SCH (08:08)
[2017-12-09] MEDS: PREGABALIN 50 MG CAP PO SCH (08:08)
[2017-12-09] MEDS: busPIRone HCl 10 MG TAB PO SCH (08:08)
[2017-12-09 08:28] LABS: INR 3.3 (<1.2); Prothrombin Time 29.5 sec (9.0-12.0)
[2017-12-09] MEDS ORDERED: predniSONE 10 MG TAB PO SCH (09:00)
[2017-12-09] MEDS: IPRATROPIUM-ALBUTEROL 3 ML NEB INHALATION SCH ×2 (09:00→11:59)
[2017-12-09 12:02] LABS: Glucose,Whole Blood 135 mg/dL (75-99)
[2017-12-09] MEDS: BUMETANIDE 1 MG TAB PO SCH (12:49)
--- NOTE | 2017-12-09 14:08 | P.PN ---
Subjective Progress Note Date: 12/09/17 Vanita is 47 with history of COPD, and previous history of sarcoidosis that was biopsy-proven and the patient's disease is currently inactive and she has some chronic fibrotic changes bilaterally. She has had issues with chronic pain and probably chronic narcotic medication dependence. She has previous history of DVT and pulmonary embolism. He is on no anticoagulants for now. She has hypertension and hyperlipidemia and coronary artery disease with previous OR. The patient has had 2 [id number] hospitalizations in October 2017. Initially the patient came in with an acute COPD exacerbation and some limited pneumonia. Bronchoscopy at that time showed a combination of MRSA, Enterococcus faecalis and Staphylococcus species. Based on this the patient was given Bactrim and he was discharged home. She decompensated she came back to the hospital and she was seen by infectious disease and she was placed on IV vancomycin via PICC line. Note that the second bronchoscopy was done and the cultures came back negative on 11/29/2017. The positive cultures were from 11/09/2017. Yesterday, the patient and out of her painkillers. She was complaining of pain and achiness over the chest. Despite ongoing pain, the patient was having no major respiratory distress. No sputum production. No fever or chills. No hemoptysis. Chest x-ray findings are essentially unchanged. She has developed a stage I bedsore without any evidence of an infection. CAT scan of the abdomen was also done for some pelvic pain and the patient was found to have a ventral hernia with incarcerated omental fat and otherwise there was no other abnormalities within the pelvis and the appendix and the pelvic structures were all within normal limits. She was apparently on 10 mg a prednisone on outpatient basis and she is action dependent. Her IV vancomycin will be continued for now. UTI no subtherapeutic with an INR of 1.6. She is on warfarin. On 12/09/2017, no new changes in her condition. Skeletal chest wall pain is under better control. PT/INR is therapeutic with an INR of 3.3. No fever. No chills. No respiratory difficulties other than her chronic baseline shortness of breath. We'll discharge this patient home and the case was discussed with Dr. Church from medicine. She is agreeable for discharge with oral [place]. Objective - Vital Signs Vital signs: Vital Signs Temp 98.0 F 12/09/17 08:00 Pulse 76 12/09/17 12:09 Resp 18 12/09/17 08:00 BP 118/67 12/09/17 08:00 Pulse Ox 92 L 12/09/17 08:00 Intake & Output 12/08/17 12/09/17 12/09/17 18:59 06:59 18:59 Intake Total 780 240 Balance 780 240 Weight 112.1 kg Intake: Intake, IV Titration 300 Amount Piperacillin-Tazobactam 3 50 .375 gm In Dextrose/Water 1 50ml.bag @ 12.5 mls/hr IVPB Q8HR [id number] Rx#: [id number] Vancomycin 1,500 mg In 250 Sodium Chloride 0.9% 250 ml @ 125 mls/hr IVPB Q8H [id number] Rx#:[id number] Oral 480 240 Other: # Voids 2 1 - Exam GENERAL EXAM: Alert, pleasant, obese HEAD: Normocephalic/atraumatic. EYES: Normal reaction of pupils, equal size. Conjunctiva pink, sclera white. NOSE: Clear with pink turbinates. THROAT: No erythema or exudates. NECK: No masses, no JVD, no thyroid enlargement, no adenopathy. CHEST: No chest wall deformity. Symmetrical expansion. LUNGS: Lung sounds are diminished and there is no significant wheezing and the patient's air entry is improved and much better compared to her previous admissions and hospitalizations. CVS: Regular rate and rhythm, normal S1 and S2, no gallops, no murmurs, no rubs ABDOMEN: Soft, nontender. No hepatosplenomegaly, normal bowel sounds, no guarding or rigidity. EXTREMITIES: No clubbing, no edema, no cyanosis, 2+ pulses and upper and lower extremities. MUSCULOSKELETAL: Muscle strength and tone normal. SPINE: No scoliosis or deformity SKIN: No rashes, healed stage I ulcer in her right buttocks. CENTRAL NERVOUS SYSTEM: Alert and oriented -3. No focal deficits, tone is normal in all 4 extremities. PSYCHIATRIC: Alert and oriented -3. Appropriate affect. Intact judgment and insight. - Labs CBC & Chem 7: 12/08/17 06:14 12/08/17 06:14 Labs: Abnormal Lab Results - Last 24 Hours (Table) 12/08/17 12/08/17 12/08/17 Range/Units 06:14 16:21 20:27 PT (9.0-12.0) sec INR (<1.2) POC Glucose (mg/dL) 222 H 165 H (75-99) mg/dL Hemoglobin A1c 6.7 H (4.0-6.0) % 12/09/17 12/09/17 12/09/17 Range/Units 06:22 07:57 11:12 PT 29.5 H (9.0-12.0) sec INR 3.3 H (<1.2) POC Glucose (mg/dL) 111 H 135 H (75-99) mg/dL Hemoglobin A1c (4.0-6.0) % Microbiology - Last 24 Hours (Table) 12/07/17 14:00 Blood Culture - Preliminary Blood No Growth after 24 hours Assessment and Plan Plan: #1. COPD currently inactive in stable as the patient completed IV antibiotics with vancomycin via PICC line on outpatient basis. No interval signs of COPD exacerbation. #2. Musculoskeletal chest wall pain secondary to cough. Chest x-ray shows increased interstitial markings probably related to a previous sarcoidosis. The patient also demonstrates drug seeking behavior as the patient seems to have narcotic medication dependence. #3. Chronic hypoxic respiratory failure secondary to above, currently inactive in stable #4. Sarcoidosis, confirmed by lung biopsy at [facility] 2014, treated with systemic steroids that was ultimately weaned off and discontinued #5. History of pulmonary embolisms in 2011, 2016, DVTs, currently on anticoagulation with Coumadin, with sub therapeutic PT/INR #6. Nicotine addiction, ongoing, currently down to 2 cigarettes per day, carries over [id number] smoking history #7. Obesity with features of obstructive sleep apnea #8. Anxiety #9. CAD, history of myocardial infarction #10. Recurrent hospitalizations for respiratory complications #11. Bipolar disorder #12. Degenerative disc disease #13. Hypertension #14 hyperlipidemia #15 fibromyalgia Plan The patient can be discharged home from the pulmonary standpoint. Complete the outpatient vancomycin treatment per ID. Discontinue Dilaudid and put the patient on [place] to be followed up by her primary care physician regarding her pain control. INR is therapeutic. Prednisone is down to 10 mg by mouth daily. Outpatient medication be kept unchanged.
[2017-12-09 14:42] VITALS: BP 120/85; PULSE 81; TEMP 98.1
--- NOTE | 2017-12-09 15:34 | PN ---
PROGRESS NOTE ADDENDUM: DATE OF SERVICE: 12/08/2017 This 47-year-old woman presented with shortness of breath also had multiple other medical problems. Seen and evaluated the patient along with the nurse practitioner. Please refer to nurse practitioner notes for further information. The prognosis guarded. We will continue to monitor. MMODL / IJN: [id number] /
--- NOTE | 2017-12-09 17:45 | DS ---
DISCHARGE SUMMARY DATE OF SERVICE: 12/09/2017 FINAL DIAGNOSES: 1. Shortness of breath, possible secondary to chronic obstructive pulmonary disease acute exacerbation. 2. History of recent history of MRSA, Enterococcus faecalis and Lou in the bronchial culture. 3. Chest pain, most likely musculoskeletal. 4. Tenderness in the right buttock area stage II pressure ulcer. 5. Chronic interstitial lung disease secondary to sarcoidosis. 6. Chronic hypoxic respiratory failure. 7. History of pulmonary embolism and DVT, currently on Coumadin. 8. Coumadin monitor. 9. Nicotine dependence. 10.Morbid obesity. 11.Possible obstructive sleep apnea. 12.Anxiety. 13.Bipolar. 14.Degenerative joint disease. 15.Hypertension. 16.Hyperlipidemia. 17.Fibromyalgia. 18.Chronic pain syndrome. DISCHARGE DISPOSITION: Patient is being discharged in stable condition with guarded prognosis. Total time taken 35 minutes. HISTORY OF PRESENT ILLNESS: This 47-year-old woman with past medical history of multiple medical problems being followed by Dr. Liz Koch and Dr. Hicks was admitted with multiple medical problems as mentioned. Treated symptomatically. Patient improved significantly. Please note the patient had PICC line. Patient received vancomycin IV in the outpatient. On exam, vital signs are stable. Cardiovascular: S1, S2. Abdomen: Soft. Nervous System: No focal deficits. DISCHARGE ADVICE: 1. Diet is cardiac. 2. Activity limited until followup. 3. Follow up with Dr. Liz Koch in 2-3 days. 4. Follow with Dr. Hicks as mentioned earlier. 5. Follow up with Infectious Disease as recommended. MEDICATIONS: 1. Xanax 0.5 p.o. t.i.d. p.r.n. 2. Lioresal 20 mg p.o. q.8. 3. Bumex 4 mg q.a.m. and 2 mg p.o. daily. 4. BuSpar 30 mg p.o. b.i.d. 5. Fioricet 1 tablet q.4h p.r.n. 6. Advil 800 mg q.8h p.r.n. 7. Lamictal 200 mg p.o. daily. 8. Remeron 45 mg q.h.s. 9. MS Contin 30 mg q.8 p.r.n. 10.Nystatin 1 application topically p.r.n. 11.Zofran 4 mg b.i.d. p.r.n. 12.Lyrica 150 mg p.o. b.i.d. 13.Promethazine 5 mL p.o. q.6 p.r.n. 14.Senna 2 tablets b.i.d. p.r.n. 15.Vancomycin 1.5 mg IV BS before. 16.Colace 100 mg p.o. b.i.d. p.r.n. 17.Fluconazole 200 mg p.o. daily. 18.Prozac 20 mg p.o. daily. 19.Mucinex 1200 mg p.o. q.i.d. p.r.n. 20.Kennebunk 10 mg q.6h p.r.n. 21.DuoNeb q.i.d. and p.r.n. 22.Lopressor 50 mg p.o. b.i.d. 23.K-Dur 20 mEq p.o. daily. 24.Prednisone taper as before. 25.Coumadin 10 mg p.o. daily. CBC, BMP, PT/INR in outpatient setting. Once again the patient is being discharged in stable condition with guarded prognosis. MMODL / IJN: [id number] /
== END 2017-12-09 14:05 | disposition home or self-care (01) ==
LOC: EC 12:59 → 6SEL 15:25 → INTOOBSV 15:25 → 6SEL 19:13 → UNDODISIN 12-09 14:05
PROVIDERS: ADMIT Hospitalist; ATTEND Hospitalist
DX: R07.89 Other chest pain (principal); J44.1 Chronic obstructive pulmonary disease with (acute) exacerbation; J96.11 Chronic respiratory failure with hypoxia; D86.0 Sarcoidosis of lung; I11.0 Hypertensive heart disease with heart failure; I50.9 Heart failure, unspecified; K43.6 Other and unspecified ventral hernia with obstruction, without gangrene; E66.01 Morbid (severe) obesity due to excess calories; Z68.41 Body mass index [BMI] 40.0-44.9, adult; E78.5 Hyperlipidemia, unspecified; F17.200 Nicotine dependence, unspecified, uncomplicated; F31.9 Bipolar disorder, unspecified; F41.0 Panic disorder [episodic paroxysmal anxiety]; I25.10 Atherosclerotic heart disease of native coronary artery without angina pectoris; I25.2 Old myocardial infarction; J84.10 Pulmonary fibrosis, unspecified; Z99.81 Dependence on supplemental oxygen; L30.9 Dermatitis, unspecified; L89.312 Pressure ulcer of right buttock, stage 2; L89.91 Pressure ulcer of unspecified site, stage 1; M19.90 Unspecified osteoarthritis, unspecified site; M79.7 Fibromyalgia; Z91.19 Patient's noncompliance with other medical treatment and regimen; E87.6 Hypokalemia; G89.4 Chronic pain syndrome; F41.9 Anxiety disorder, unspecified; M54.5 Low back pain; Z79.01 Long term (current) use of anticoagulants; Z79.2 Long term (current) use of antibiotics; Z79.52 Long term (current) use of systemic steroids; Z79.899 Other long term (current) drug therapy; Z88.5 Allergy status to narcotic agent; Z88.8 Allergy status to other drugs, medicaments and biological substances; Z88.1 Allergy status to other antibiotic agents; Z91.041 Radiographic dye allergy status; Z91.048 Other nonmedicinal substance allergy status; Z86.711 Personal history of pulmonary embolism; Z86.718 Personal history of other venous thrombosis and embolism; Z86.74 Personal history of sudden cardiac arrest; Z95.9 Presence of cardiac and vascular implant and graft, unspecified; Z90.49 Acquired absence of other specified parts of digestive tract; Z87.01 Personal history of pneumonia (recurrent); Z86.14 Personal history of Methicillin resistant Staphylococcus aureus infection; Z83.2 Family history of diseases of the blood and blood-forming organs and certain disorders involving the immune mechanism; Z82.5 Family history of asthma and other chronic lower respiratory diseases; Z82.49 Family history of ischemic heart disease and other diseases of the circulatory system; Z83.3 Family history of diabetes mellitus; Z82.3 Family history of stroke; Z82.69 Family history of other diseases of the musculoskeletal system and connective tissue
CPT/HCPCS: 96376 ×4; 96366 ×4; 96367 ×2; 96368; 96365; 96375; 99285; 36415; 94640 ×5; 94644; 93005; 83880; 80053; 80048; 82550; 82553; 83735 ×2; 84484; 85025 ×2; 80202; 85610 ×2; 87040; 83036; 71045; 71046; 72193; G0378 ×3; J3370 ×3; J1200 ×3; J2920; J2930; J1170 ×3; J2543 ×2; J7512; Q9967

== ENCOUNTER 2017-12-12 15:45 | Emergency (ER) | payer OTHER ==
[2017-12-12] MEDS ORDERED: IPRATROPIUM-ALBUTEROL 3 ML NEB INHALATION STA (16:04)
[2017-12-12] MEDS ORDERED: SODIUM CHLORIDE 0.9% 1,000 ML IV STA (16:04)
--- NOTE | 2017-12-12 16:07 | ED ---
General Adult HPI - General Chief complaint: Shortness of Breath Stated complaint: SOB Time Seen by Provider: 12/12/17 16:01 Source: patient, RN notes reviewed Mode of arrival: wheelchair Limitations: no limitations - History of Present Illness Initial comments: Patient is a pleasant 47-year-old female presenting to the emergency department with complaints of difficulty in breathing. Patient has been given with these problems over the past several months. Patient has known MRSA in her lungs and currently is on IV vancomycin. Patient states her dyspnea has been worsening with exertion. Patient states she was just discharged from the hospital several days ago. Patient is on oxygen at home. Patient is on IV vancomycin. Patient has known COPD. - Related Data Home Medications Medication Instructions Recorded Confirmed lamoTRIgine [LaMICtal] 200 mg PO DAILY 03/22/16 12/15/17 Bumetanide 4 mg PO QAM 10/18/16 12/15/17 Butalb/APAP/Caff 50-325-40Mg 1 tab PO Q4H PRN 10/18/16 12/15/17 [Fioricet 50-325-40] Ondansetron HCl [Zofran] 4 mg PO BID PRN 10/18/16 12/15/17 Mirtazapine [Remeron] 45 mg PO HS 04/10/17 12/15/17 ALPRAZolam [Xanax] 0.5 mg PO TID PRN 06/06/17 12/15/17 Bumetanide [BUMEX] 2 mg PO DAILY@1200 09/16/17 12/15/17 Pregabalin [Lyrica] 150 mg PO BID 09/16/17 12/15/17 busPIRone HCL [Buspar] 30 mg PO BID 09/16/17 12/15/17 Baclofen [Lioresal] 20 mg PO Q8H PRN 10/09/17 12/15/17 Morphine Sulfate ER [Ms Contin] 30 mg PO Q8H PRN 11/03/17 12/15/17 Nystatin 100,000 Unit/gm Powd 1 applic TOPICAL BID 11/04/17 12/15/17 [Mycostatin Powder] Promethazine/Dextromethorphan 5 ml PO Q6H PRN 11/04/17 12/15/17 [Promethazine-Dm Solution] Ibuprofen [Advil] 800 mg PO Q8HR PRN 11/22/17 12/15/17 Sennosides-Docusate Sodium 2 tab PO BID PRN 12/07/17 12/15/17 [Senokot-S] Vancomycin 1,750 mg IVPB Q8H 12/07/17 12/15/17 Warfarin [Coumadin] 10 mg PO HS@1800 12/12/17 12/15/17 predniSONE See Taper PO DAILY 12/12/17 12/15/17 Previous Rx's Medication Instructions Recorded FLUoxetine HCL [PROzac] 20 mg PO DAILY #30 capsule 08/20/15 Metoprolol Tartrate [Lopressor] 50 mg PO BID #60 tab 08/20/15 Docusate [Colace] 100 mg PO BID PRN #60 cap 11/10/17 Ipratropium-Albuterol Nebulize 3 ml INHALATION RT-QID #120 11/10/17 [Duoneb 0.5 mg-3 mg/3 ml Soln] ampul.neb Potassium Chloride ER [K-Dur 20] 20 meq PO DAILY #30 tab.er.prt 11/10/17 guaiFENesin [Mucinex] 1,200 mg PO Q12HR #40 tablet.er 11/10/17 Hydrocodone/Acetaminophen [[place] 1 tab PO Q6H PRN 3 Days #12 tab 12/09/17 10-325] Allergies Allergy/AdvReac Type Severity Reaction Status Date / Time ketorolac tromethamine Allergy Severe Anaphylaxis Verified 12/15/17 16:30 [From Toradol] Opioids - Morphine Analogues Allergy Mild Itching Verified 12/15/17 16:30 Iodinated Contrast- Oral and Allergy Unknown Verified 12/15/17 16:30 IV Dye rivaroxaban [From Xarelto] Allergy Rash/Hives Verified 12/15/17 16:30 sumatriptan [From Imitrex] Allergy Anaphylaxis Verified 12/15/17 16:30 sumatriptan succinate Allergy Anaphylaxis Verified 12/15/17 16:30 [From Imitrex] morphine AdvReac Severe Itching Verified 12/15/17 16:30 iodine AdvReac Intermediate Itching Verified 12/15/17 16:30 tramadol AdvReac Anaphylaxis Verified 12/15/17 16:30 vancomycin AdvReac Itching Verified 12/15/17 16:30 Rich wipes AdvReac Severe Rash/Hives Uncoded 12/15/17 16:22 Review of Systems ROS Statement: Those systems with pertinent positive or pertinent negative responses have been documented in the HPI. ROS Other: All systems not noted in ROS Statement are negative. Constitutional: Denies: fever, chills Eyes: Denies: eye pain ENT: Denies: ear pain Respiratory: Reports: cough (Dry cough), dyspnea Cardiovascular: Reports: chest pain (Only with cough) Endocrine: Reports: fatigue Gastrointestinal: Denies: abdominal pain Genitourinary: Denies: dysuria Musculoskeletal: Denies: back pain Skin: Denies: rash Neurological: Denies: weakness Past Medical History Past Medical History: Blood Disorder, Heart Failure, COPD, Deep Vein Thrombosis (DVT), Hyperlipidemia, Hypertension, Myocardial Infarction (CT), Musculoskeletal Disorder, Pneumonia, Pulmonary Embolus (PE), Thyroid Disorder Additional Past Medical History / Comment(s): PE 2012; Sarcoidosis diagnosed in 2015 following a bronchoscopy and lung biopsy done at [facility] and she was started on predniosone and she took the therapy for almost 1 year, polycythemia, overweight, bilateral PE (2011, 2015), bilateral DVTs, fibromyalgia, bipolar disorder, degenerative disk disorder, coronary artery disease along with previous history of a CT and ventilator dependent respiratory failure with MRSA pneumonia for which the patient was hospitalized [facility] in 2012. Viral meningitis in October 2014. Pulmonary fibrosis, home 02 3l n/c Last Myocardial Infarction Date:: February 15, 2013 History of Any Multi-Drug Resistant Organisms: MRSA Date of last positivie culture/infection: 11/09/17 MDRO Source:: PLEURAL FLUID Past Surgical History: Section, Cholecystectomy, Heart Catheterization , Hernia Repair, Orthopedic Surgery Additional Past Surgical History / Comment(s): Lt ankle surgery, several bronchosopy-most recently 11/09/17 Past Anesthesia/Blood Transfusion Reactions: Motion Sickness, Postoperative Nausea & Vomiting (PONV) Additional Past Anesthesia/Blood Transfusion Reaction / Comment(s): previously charted -pt stated that last April she coded due to anesthetic Past Psychological History: Anxiety, Bipolar, Depression, Panic Disorder Smoking Status: Never smoker Past Alcohol Use History: None Reported Past Drug Use History: None Reported - Past Family History Father Family Medical History: Blood Disorder, Congestive Heart Failure (CHF), CVA/TIA , Deep Vein Thrombosis (DVT), Myocardial Infarction (CT) Additional Family Medical History / Comment(s): polycythemia Mother Family Medical History: Congestive Heart Failure (CHF), Diabetes Mellitus, Deep Vein Thrombosis (DVT), Myocardial Infarction (CT), Musculoskeletal Disorder Additional Family Medical History / Comment(s): DDD Sister(s) Family Medical History: No Reported History Brother(s) Family Medical History: No Reported History Son(s) Family Medical History: No Reported History Daughter(s) Family Medical History: No Reported History General Exam Limitations: no limitations General appearance: alert, in no apparent distress Head exam: Present: atraumatic, normocephalic Eye exam: Present: normal appearance, PERRL ENT exam: Present: normal oropharynx Neck exam: Present: normal inspection Respiratory exam: Present: decreased breath sounds (Right base) Cardiovascular Exam: Present: regular rate, normal rhythm GI/Abdominal exam: Present: soft. Absent: tenderness Extremities exam: Present: normal inspection. Absent: pedal edema, calf tenderness Neurological exam: Present: alert Psychiatric exam: Present: normal affect, normal mood Skin exam: Present: normal color Course Vital Signs 12/12/17 12/12/17 12/12/17 15:48 16:13 16:24 Temperature 98.3 F Pulse Rate 106 H 111 H 110 H Respiratory 24 Rate Blood Pressure 110/73 O2 Sat by Pulse 95 Oximetry 12/12/17 12/12/17 16:30 18:00 Temperature 98.1 F Pulse Rate 104 H 80 Respiratory 22 20 Rate Blood Pressure 125/57 139/65 O2 Sat by Pulse 95 99 Oximetry EKG Findings - EKG Comments: EKG Findings:: Sinus tachycardia 106. MT 136. QRS 68. QT 336. QTc 446. Normal axis. Normal QRS. No acute ST change. Medical Decision Making - Medical Decision Making Patient left AGAINST MEDICAL ADVICE. Patient did not wait for reevaluation. - Lab Data Result diagrams: 12/12/17 17:18 Lab Results 12/12/17 12/12/17 Range/Units 17:18 17:45 Sodium 138 (137-145) mmol/L Potassium 3.1 L (3.5-5.1) mmol/L Chloride 101 (98-107) mmol/L Carbon Dioxide 26 (22-30) mmol/L Anion Gap 11 mmol/L BUN 11 (7-17) mg/dL Creatinine 0.74 (0.52-1.04) mg/dL Est GFR (CKD-EPI)AfAm >90 (>60 ml/min/1.73 sqM) Est GFR (CKD-EPI)NonAf >90 (>60 ml/min/1.73 sqM) Glucose 84 (74-99) mg/dL Calcium 9.1 (8.4-10.2) mg/dL Total Bilirubin 0.7 (0.2-1.3) mg/dL AST 28 (14-36) U/L ALT 57 H (9-52) U/L Alkaline Phosphatase 91 (38-126) U/L Total Creatine Kinase 40 (30-135) U/L CK-MB (CK-2) 0.6 (0.0-2.4) ng/mL CK-MB (CK-2) Rel Index 1.5 Troponin I <0.012 (0.000-0.034) ng/mL Total Protein 6.8 (6.3-8.2) g/dL Albumin 3.7 (3.5-5.0) g/dL Disposition Clinical Impression: Dyspnea Disposition: Left Against Medical Advice Referrals: Liz Koch MD [Primary Care Provider] - 1-2 days
[2017-12-12 18:10] LABS: ALT 57 U/L (9-52); AST 28 U/L (14-36); Albumin 3.7 g/dL (3.5-5.0); Alkaline Phosphatase 91 U/L (38-126); Anion Gap 11 mmol/L; Blood Urea Nitrogen 11 mg/dL (7-17); Calcium 9.1 mg/dL (8.4-10.2); Carbon Dioxide 26 mmol/L (22-30); Chloride 101 mmol/L (98-107); Glucose 84 mg/dL (74-99); Potassium 3.1 mmol/L (3.5-5.1); Sodium 138 mmol/L (137-145); Total Bilirubin 0.7 mg/dL (0.2-1.3); Total Protein 6.8 g/dL (6.3-8.2)
[2017-12-12 18:19] LABS: Creatine Kinase 40 U/L (30-135)
[2017-12-12 18:31] LABS: Creatine Kinase MB 0.6 ng/mL (0.0-2.4); Troponin I <0.012 ng/mL (0.000-0.034)
[2017-12-12 20:10] VITALS: BP 139/65; PULSE 80; RESP 20; TEMP 98.1
--- NOTE | 2017-12-13 05:02 | CDI ---
Documentation Clarification OP Dear Andreas ECHEVERRIA, DO Please do addendum to ED report for Clinical impression. Thank you, Allison Anders Gaming Manager If you have any question, Please contact senior construction project manager at [phone] [facility]
== END 2017-12-12 18:00 | disposition left against medical advice (07) ==
LOC: EC 15:45
DX: R06.02 Shortness of breath (principal); I11.0 Hypertensive heart disease with heart failure; I50.9 Heart failure, unspecified; J44.9 Chronic obstructive pulmonary disease, unspecified; E07.9 Disorder of thyroid, unspecified; I25.10 Atherosclerotic heart disease of native coronary artery without angina pectoris; I25.2 Old myocardial infarction; M79.7 Fibromyalgia; E78.5 Hyperlipidemia, unspecified; J96.90 Respiratory failure, unspecified, unspecified whether with hypoxia or hypercapnia; F31.9 Bipolar disorder, unspecified; F41.0 Panic disorder [episodic paroxysmal anxiety]; Z86.14 Personal history of Methicillin resistant Staphylococcus aureus infection; Z86.711 Personal history of pulmonary embolism; Z86.718 Personal history of other venous thrombosis and embolism; Z79.52 Long term (current) use of systemic steroids; Z79.01 Long term (current) use of anticoagulants; Z79.899 Other long term (current) drug therapy; Z88.6 Allergy status to analgesic agent; Z91.041 Radiographic dye allergy status; Z88.5 Allergy status to narcotic agent; Z88.1 Allergy status to other antibiotic agents; Z91.048 Other nonmedicinal substance allergy status; Z88.8 Allergy status to other drugs, medicaments and biological substances; Z99.11 Dependence on respirator [ventilator] status; Z99.81 Dependence on supplemental oxygen
CPT/HCPCS: 36415; 80053; 82550; 82553; 84484; 93005; 94640; 99285

== ENCOUNTER 2017-12-15 16:14 | Inpatient (IN) | payer OTHER ==
[2017-12-15] MEDS: SODIUM CHLORIDE 0.9% 1,000 ML IV SCH (16:57)
--- NOTE | 2017-12-15 17:02 | ED ---
General Adult HPI - General Chief complaint: Skin/Abscess/Foreign Body Stated complaint: POSS INFECTION PIC LINE Time Seen by Provider: 12/15/17 16:36 Source: patient, family, RN notes reviewed, old records reviewed Mode of arrival: wheelchair Limitations: no limitations - History of Present Illness Initial comments: Chief complaint history of present illness is a 47-year-old female who has a PICC line in her left proximal arm. This Harman for 2 weeks. For the past week has been having difficulty drawing blood off the line. Also the patient was having significant slowing of her self administration of vancomycin. The vancomycin is being used to treat lung MRSA infection. The PICC line nurse saw the patient today told the patient that she had a fever. It appeared as though the PICC line was compromised with local cellulitis to the insertion site. Patient reports she had a fever and sweats last night. - Related Data Home Medications Medication Instructions Recorded Confirmed lamoTRIgine [LaMICtal] 200 mg PO DAILY 03/22/16 12/15/17 Bumetanide 4 mg PO QAM 10/18/16 12/15/17 Butalb/APAP/Caff 50-325-40Mg 1 tab PO Q4H PRN 10/18/16 12/15/17 [Fioricet 50-325-40] Ondansetron HCl [Zofran] 4 mg PO BID PRN 10/18/16 12/15/17 Mirtazapine [Remeron] 45 mg PO HS 04/10/17 12/15/17 ALPRAZolam [Xanax] 0.5 mg PO TID PRN 06/06/17 12/15/17 Bumetanide [BUMEX] 2 mg PO DAILY@1200 09/16/17 12/15/17 Pregabalin [Lyrica] 150 mg PO BID 09/16/17 12/15/17 busPIRone HCL [Buspar] 30 mg PO BID 09/16/17 12/15/17 Baclofen [Lioresal] 20 mg PO Q8H PRN 10/09/17 12/15/17 Morphine Sulfate ER [Ms Contin] 30 mg PO Q8H PRN 11/03/17 12/15/17 Nystatin 100,000 Unit/gm Powd 1 applic TOPICAL BID 11/04/17 12/15/17 [Mycostatin Powder] Promethazine/Dextromethorphan 5 ml PO Q6H PRN 11/04/17 12/15/17 [Promethazine-Dm Solution] Ibuprofen [Advil] 800 mg PO Q8HR PRN 11/22/17 12/15/17 Sennosides-Docusate Sodium 2 tab PO BID PRN 12/07/17 12/15/17 [Senokot-S] Vancomycin 1,750 mg IVPB Q8H 12/07/17 12/15/17 Warfarin [Coumadin] 10 mg PO HS@1800 12/12/17 12/15/17 predniSONE See Taper PO DAILY 12/12/17 12/15/17 Previous Rx's Medication Instructions Recorded FLUoxetine HCL [PROzac] 20 mg PO DAILY #30 capsule 08/20/15 Metoprolol Tartrate [Lopressor] 50 mg PO BID #60 tab 08/20/15 Docusate [Colace] 100 mg PO BID PRN #60 cap 11/10/17 Ipratropium-Albuterol Nebulize 3 ml INHALATION RT-QID #120 11/10/17 [Duoneb 0.5 mg-3 mg/3 ml Soln] ampul.neb Potassium Chloride ER [K-Dur 20] 20 meq PO DAILY #30 tab.er.prt 11/10/17 guaiFENesin [Mucinex] 1,200 mg PO Q12HR #40 tablet.er 11/10/17 Hydrocodone/Acetaminophen [[place] 1 tab PO Q6H PRN 3 Days #12 tab 12/09/17 10-325] Allergies Allergy/AdvReac Type Severity Reaction Status Date / Time ketorolac tromethamine Allergy Severe Anaphylaxis Verified 12/15/17 16:30 [From Toradol] Opioids - Morphine Analogues Allergy Mild Itching Verified 12/15/17 16:30 Iodinated Contrast- Oral and Allergy Unknown Verified 12/15/17 16:30 IV Dye rivaroxaban [From Xarelto] Allergy Rash/Hives Verified 12/15/17 16:30 sumatriptan [From Imitrex] Allergy Anaphylaxis Verified 12/15/17 16:30 sumatriptan succinate Allergy Anaphylaxis Verified 12/15/17 16:30 [From Imitrex] morphine AdvReac Severe Itching Verified 12/15/17 16:30 iodine AdvReac Intermediate Itching Verified 12/15/17 16:30 tramadol AdvReac Anaphylaxis Verified 12/15/17 16:30 vancomycin AdvReac Itching Verified 12/15/17 16:30 Rich wipes AdvReac Severe Rash/Hives Uncoded 12/15/17 16:22 Review of Systems ROS Statement: Those systems with pertinent positive or pertinent negative responses have been documented in the HPI. Review of systems. Patient is here complaining of pain at the PICC line site. Past medical problems are multiple included on previous charts. Specific to today's visit she has a PICC line because of a MRSA lung infection for GC having vancomycin. All systems are reviewed. Multiple past surgeries. ALLERGIES include Toradol, morphine and lungs, iodinated contrast both oral and IV, Xarelto, Imitrex, tramadol. Patient states that she takes Benadryl prior to giving herself IV vancomycin to prevent itchiness. ROS Other: All systems not noted in ROS Statement are negative. Past Medical History Past Medical History: Blood Disorder, Heart Failure, COPD, Deep Vein Thrombosis (DVT), Hyperlipidemia, Hypertension, Myocardial Infarction (AR), Musculoskeletal Disorder, Pneumonia, Pulmonary Embolus (PE), Thyroid Disorder Additional Past Medical History / Comment(s): PE 2012; Sarcoidosis diagnosed in 2015 following a bronchoscopy and lung biopsy done at [facility] and she was started on predniosone and she took the therapy for almost 1 year, polycythemia, overweight, bilateral PE (2011, 2015), bilateral DVTs, fibromyalgia, bipolar disorder, degenerative disk disorder, coronary artery disease along with previous history of a AR and ventilator dependent respiratory failure with MRSA pneumonia for which the patient was hospitalized [facility] in 2012. Viral meningitis in October 2014. Pulmonary fibrosis, home 02 3l n/c Last Myocardial Infarction Date:: February 15, 2013 History of Any Multi-Drug Resistant Organisms: MRSA Date of last positivie culture/infection: 11/09/17 MDRO Source:: PLEURAL FLUID Past Surgical History: Section, Cholecystectomy, Heart Catheterization , Hernia Repair, Orthopedic Surgery Additional Past Surgical History / Comment(s): Lt ankle surgery, several bronchosopy-most recently 11/09/17 Past Anesthesia/Blood Transfusion Reactions: Motion Sickness, Postoperative Nausea & Vomiting (PONV) Additional Past Anesthesia/Blood Transfusion Reaction / Comment(s): previously charted -pt stated that last April she coded due to anesthetic Past Psychological History: Anxiety, Bipolar, Depression, Panic Disorder Smoking Status: Never smoker Past Alcohol Use History: None Reported Past Drug Use History: None Reported - Past Family History Father Family Medical History: Blood Disorder, Congestive Heart Failure (CHF), CVA/TIA , Deep Vein Thrombosis (DVT), Myocardial Infarction (AR) Additional Family Medical History / Comment(s): polycythemia Mother Family Medical History: Congestive Heart Failure (CHF), Diabetes Mellitus, Deep Vein Thrombosis (DVT), Myocardial Infarction (AR), Musculoskeletal Disorder Additional Family Medical History / Comment(s): DDD Sister(s) Family Medical History: No Reported History Brother(s) Family Medical History: No Reported History Son(s) Family Medical History: No Reported History Daughter(s) Family Medical History: No Reported History General Exam - General Exam Comments Initial Comments: General: The patient is awake and alert, complaining of pain swelling had a PIC line site proximal left arm. Vital signs temperature 99.3 pulse 94 respiratory rate 18 pulse ox 97% on 3 L blood pressure 101/70 Eye: Pupils are equal, , extra-ocular movements are intact; there is normal conjunctiva bilaterally. No signs of icterus. Ears, nose, mouth and throat: There are moist mucous membranes Neck: The neck is supple, Cardiovascular: There is a regular rate and rhythm. No murmur, rub or gallop is appreciated. Respiratory: Early being treated for MRSA lung infection. Occasional crepitant rales appreciated. On nasal O2. History of COPD. Gastrointestinal: Denies abdominal pain, no nausea vomiting or diarrhea. Back: No back pain. Musculoskeletal right arm and both lower extremities normal with normal range of motion. Examination of the left arm finds a PICC line in place the medial aspect proximal left arm. Localized warmth mild swelling possible cellulitis associated with the PICC line. This will be removed and cultured. Neurological: CN II-XII intact, There are no obvious motor or sensory deficits. Coordination appears grossly intact. Speech is normal. Psychiatric: Cooperative, appropriate mood & affect, normal judgment. Limitations: no limitations Course Vital Signs 12/15/17 12/15/17 16:20 19:01 Temperature 99.3 F 97.8 F Pulse Rate 94 62 Respiratory 18 18 Rate Blood Pressure 101/70 107/71 O2 Sat by Pulse 97 96 Oximetry Medical Decision Making - Medical Decision Making Medical decision making; is a 47-year-old female with a complaint of pain swelling redness and tenderness to her PICC line site which is been there for 2 weeks. Appears though is locally inflamed and possibly infected. The PICC line will be removed. Patient states she takes IV vancomycin 3 times daily to prevent itching sugars are so Benadryl to start with. She also has morphine listed as a ALLERGY but she states she is not ALLERGIC to morphine and takes morphine pills daily. She is requesting pain medication. She'll be given 2 mg of morphine IV. Labs show white count 8.8 hemoglobin 14 hematocrit of 41. Potassium 2.8. The patient was given oral potassium she declined IV potassium. The patient is also receiving IV vancomycin her usual dose at this time. BUN is 8 creatinine 0.84 the GFR 34. Glucose 116. Chest x-ray is done AP and lateral view and reviewed by radiologist his findings are there is left subclavian catheter with tip in the superior vena cava. Lungs are clear. There is no heart failure. Heart size is normal. Impression; no active cardiopulmonary disease. No change. As read by Dr. Ty Patient also had an ultrasound of the left arm for evaluation post removal of her PICC line which should become possibly infected. The patient's radiologist' s impression is no evidence of deep venous thrombosis in the left arm. There is a 28 x 7 mm complex area at the PIC line site could be a phlegmon. As read by Dr. Ty The case discussed with the gas is not. He recommends switching the patient to daptomycin 6 Per kilo 1 dose per day. Also consult infectious disease, Dr. Lott and on- call vascular surgeon. - Lab Data Result diagrams: 12/15/17 16:55 12/15/17 16:55 Lab Results 12/15/17 12/15/17 Range/Units 16:55 16:55 WBC 8.8 (3.8-10.6) k/uL RBC 4.82 (3.80-5.40) m/uL Hgb 14.0 (11.4-16.0) gm/dL Hct 41.4 (34.0-46.0) % MCV 86.0 (80.0-100.0) fL MCH 29.1 (25.0-35.0) pg MCHC 33.8 (31.0-37.0) g/dL RDW 14.6 (11.5-15.5) % Plt Count 232 (150-450) k/uL Neutrophils % 60 % Lymphocytes % 26 % Monocytes % 9 % Eosinophils % 2 % Basophils % 1 % Neutrophils # 5.3 (1.3-7.7) k/uL Lymphocytes # 2.3 (1.0-4.8) k/uL Monocytes # 0.8 (0-1.0) k/uL Eosinophils # 0.2 (0-0.7) k/uL Basophils # 0.0 (0-0.2) k/uL Sodium 135 L (137-145) mmol/L Potassium 2.8 L (3.5-5.1) mmol/L Chloride 98 (98-107) mmol/L Carbon Dioxide 26 (22-30) mmol/L Anion Gap 11 mmol/L BUN 8 (7-17) mg/dL Creatinine 0.84 (0.52-1.04) mg/dL Est GFR (CKD-EPI)AfAm >90 (>60 ml/min/1.73 sqM) Est GFR (CKD-EPI)NonAf 84 (>60 ml/min/1.73 sqM) Glucose 116 H (74-99) mg/dL Calcium 8.4 (8.4-10.2) mg/dL Total Bilirubin 0.5 (0.2-1.3) mg/dL AST 24 (14-36) U/L ALT 44 (9-52) U/L Alkaline Phosphatase 95 (38-126) U/L Total Protein 6.4 (6.3-8.2) g/dL Albumin 3.6 (3.5-5.0) g/dL Disposition Clinical Impression: PICC line infection, History of MRSA infection of lungs Disposition: ADMITTED IP TO THIS HOSP Condition: Serious Is patient prescribed a controlled substance at d/c from ED?: No Referrals: Liz Koch MD [Primary Care Provider] - 1-2 days
--- NOTE | 2017-12-15 17:15 | XR ---
EXAMINATION TYPE: XR chest 2V DATE OF EXAM: 12/15/2017 COMPARISON: 12/08/2017 HISTORY: Catheter placement TECHNIQUE: Frontal and lateral views of the chest are obtained. FINDINGS: There is left subclavian catheter with the tip in the superior vena cava. Lungs are clear. There is no heart failure. Heart size is normal. IMPRESSION: No active cardiopulmonary disease. No change.
[2017-12-15 17:30] LABS: Basophils % (A) 1 %; Eosinophils # (A) 0.2 k/uL (0-0.7); Eosinophils % (A) 2 %; HCT 41.4 % (34.0-46.0); Lymphocytes # (A) 2.3 k/uL (1.0-4.8); Lymphocytes % (A) 26 %; MCH 29.1 pg (25.0-35.0); MCHC 33.8 g/dL (31.0-37.0); Mean Platelet Volume 6.7; Monocytes # (A) 0.8 k/uL (0-1.0); Monocytes % (A) 9 %; Neutrophils # (A) 5.3 k/uL (1.3-7.7); Neutrophils % (A) 60 %; Platelet Count 232 k/uL (150-450); RBC 4.82 m/uL (3.80-5.40); RDW 14.6 % (11.5-15.5); WBC 8.8 k/uL (3.8-10.6)
[2017-12-15] MEDS ORDERED: MORPHINE SULFATE 2 MG/ML SYRINGE IVP STA (17:37)
[2017-12-15] MEDS ORDERED: VANCOMYCIN 1,750 MG in SODIUM CHLORIDE 0.9% 500 ML IVPB STA (17:40)
[2017-12-15 17:42] LABS: ALT 44 U/L (9-52); AST 24 U/L (14-36); Albumin 3.6 g/dL (3.5-5.0); Alkaline Phosphatase 95 U/L (38-126); Anion Gap 11 mmol/L; Blood Urea Nitrogen 8 mg/dL (7-17); Calcium 8.4 mg/dL (8.4-10.2); Carbon Dioxide 26 mmol/L (22-30); Chloride 98 mmol/L (98-107); Glucose 116 mg/dL (74-99); Potassium 2.8 mmol/L (3.5-5.1); Sodium 135 mmol/L (137-145); Total Bilirubin 0.5 mg/dL (0.2-1.3); Total Protein 6.4 g/dL (6.3-8.2)
[2017-12-15] MEDS ORDERED: POTASSIUM CHLORIDE ER 20 MEQ TAB.ER PO STA (18:05)
[2017-12-15] MEDS ORDERED: POTASSIUM CHLORIDE 2 MEQ/ML 20 ML VIAL IVPB STA (18:08)
[2017-12-15] MEDS ORDERED: POTASSIUM CHLORIDE 20 MEQ in WATER FOR INJECTION 1 100ML.BAG IVPB STA (18:10)
[2017-12-15] MEDS ORDERED: diphenhydrAMINE 50 MG/ML 1 ML VIAL IVP STA (18:51)
--- NOTE | 2017-12-15 19:11 | US ---
EXAMINATION TYPE: US venous doppler duplex UE LT DATE OF EXAM: 12/15/2017 COMPARISON: NONE CLINICAL HISTORY: Pain swelling, PICC line removed today. Left upper medial arm redness, severe pain and swelling around former PICC site; On Coumadin for DVT/PE per patient. SIDE PERFORMED: left US exam is technically limited as patient in severe pain and has limited range of motion for US asses sment. Left Arm: Negative for DVT and SVT, however, at painful PICC site at medial upper arm an irregular hy poechoic area is seen from near skin line coursing posteriorly toward left Axillary Vein. Size of irr egular hypoechoic area = approximately 2.8 x 1.0 x 0.7cm and could represent abscess. IMPRESSION: No evidence of deep venous thrombosis in the left arm. There is a 28 x 7 mm complex area at the PICC line site that could be a phlegmon.
[2017-12-15] MEDS ORDERED: NALOXONE 0.4 MG/ML 1 ML VIAL IV PRN (20:00)
[2017-12-15 21:15] VITALS: BMI 37.4
[2017-12-15] MEDS: MORPHINE SULFATE 2 MG/ML SYRINGE IV PRN (21:29)
[2017-12-16] MEDS ORDERED: SENNOSIDES-DOCUSATE SODIUM 1 EACH TAB PO PRN (00:11)
[2017-12-16] MEDS ORDERED: PROMETHAZINE PO PRN (00:11)
[2017-12-16] MEDS ORDERED: DEXTROMETHORPHAN PO PRN (00:11)
[2017-12-16] MEDS ORDERED: BUTALB/APAP/CAFF 50-325-40MG TAB PO PRN (00:11)
[2017-12-16] MEDS ORDERED: BACLOFEN 10 MG TAB PO PRN (00:11)
[2017-12-16] MEDS ORDERED: IBUPROFEN 200 MG TAB PO PRN (00:11)
[2017-12-16] MEDS ORDERED: DOCUSATE 100 MG CAP PO PRN (00:11)
[2017-12-16] MEDS ORDERED: Potassium Replacement Protocol 1 EACH MISC MISCELLANE PRN ×2 (00:31→08:45)
[2017-12-16] MEDS ORDERED: ACETAMINOPHEN TAB 325 MG TAB PO PRN (00:38)
[2017-12-16] MEDS ORDERED: HYDROcodone/APAP 7.5-325MG 1 EACH TAB PO PRN (00:41)
[2017-12-16] MEDS: POTASSIUM CHLORIDE ER 20 MEQ TAB.ER PO SCH ×6 (01:29→12:13)
[2017-12-16] MEDS: MORPHINE SULFATE 2 MG/ML SYRINGE IV PRN ×5 (05:01→22:01)
[2017-12-16] MEDS: IPRATROPIUM-ALBUTEROL 3 ML NEB INHALATION SCH ×4 (07:20→18:55)
[2017-12-16 08:34] LABS: INR 2.6 (<1.2)
[2017-12-16] MEDS: guaiFENesin 600 MG TABLET.ER PO SCH ×2 (08:37→20:13)
[2017-12-16] MEDS: busPIRone HCl 10 MG TAB PO SCH ×2 (08:37→20:13)
[2017-12-16] MEDS: predniSONE 10 MG TAB PO SCH (08:38)
[2017-12-16] MEDS: PREGABALIN 75 MG CAP PO SCH ×2 (08:38→20:13)
[2017-12-16] MEDS: ALPRAZolam 0.5 MG TAB PO PRN ×3 (08:38→22:01)
[2017-12-16] MEDS: FLUoxetine HCL 20 MG CAP PO SCH (08:38)
[2017-12-16] MEDS: METOPROLOL TARTRATE 50 MG TAB PO SCH ×2 (08:38→20:13)
[2017-12-16] MEDS: lamoTRIgine 100 MG TAB PO SCH (08:38)
[2017-12-16] MEDS: NYSTATIN 100,000 UNIT/GM POWD 15 GM TOPICAL SCH ×2 (08:39→21:22)
[2017-12-16] MEDS: BUMETANIDE 1 MG TAB PO SCH ×2 (08:39→12:13)
[2017-12-16] MEDS: SODIUM CHLORIDE 0.9% 1,000 ML IV SCH (12:14)
[2017-12-16] MEDS ORDERED: ONDANSETRON 4 MG TAB PO PRN (14:05)
[2017-12-16] MEDS ORDERED: HYDROcodone/APAP 10-325MG 1 EACH TAB PO PRN (14:05)
--- NOTE | 2017-12-16 14:44 | HP ---
HISTORY AND PHYSICAL DATE OF SERVICE: 12/16/2017 CHIEF COMPLAINTS: Pain and swelling of the left arm. HISTORY OF PRESENT ILLNESS: This 47-year-old woman with a past medical history of multiple medical problems including history of CHF, COPD, DVT, hypertension, hyperlipidemia, history of pulmonary embolism being for Dr. Liz Koch in the patient recently admitted with shortness of breath, COPD with MRSA bronchitis. The patient was receiving vancomycin intravenously through the PICC line on the left arm. The visiting nurse noted that there is some difficulty withdrawing blood from the line even after injecting heparin, but subsequently patient had extreme difficulty and purulent drainage was noted and the patient also had fever also. Patient taken to [facility]. The PICC line was removed and tip sent for cultures and patient admitted for further evaluation and treatment. There is no history of any rigors, chills. No headache, loss of consciousness, seizures. PAST MEDICAL HISTORY: History of CHF, COPD, DVT, history of myocardial infarction, pulmonary embolism, hypothyroidism, history of sarcoidosis, history of MRSA pneumonia as mentioned earlier. MEDICATIONS: Home medications are currently: 1. Prednisone taper. 2. Lamictal 200 mg p.o. daily. 3. Mucinex 1200 mg p.o. b.i.d. 4. BuSpar 30 mg p.o. b.i.d. 5. Coumadin 10 mg q.h.s. 6. Vancomycin 1750 mg IV q.8h. 7. Senokot-S 2 tablets b.i.d. p.r.n. 8. Promethazine 5 mL q.i.d. p.r.n. 9. Lyrica 150 mg p.o. b.i.d. 10.K-Dur 10 mg p.o. daily. 11.Zofran 4 mg b.i.d. p.r.n. 12.Mycostatin 1 application b.i.d. 13.MS Contin 30 mg q.8h p.r.n. 14.Remeron 40 mg q.h.s. 15.Lopressor 50 mg p.o. b.i.d. 16.DuoNeb q.i.d. and p.r.n. 17.Advil 800 mg q.8h p.r.n. 18.Herndon 1 tablet q.6 p.r.n. 19.Prozac 20 mg p.o. daily. 20.Colace 100 mg b.i.d. p.r.n. 21.Fioricet 1 tablet q.4h p.r.n. 22.Bumex 2 mg p.o. daily and 4 mg q.a.m. 23.Lioresal 10 mg p.o. q.i.d. 24.Xanax 0.5 p.o. t.i.d. ALLERGIES: Are KETOROLAC, OPIOIDS, IODINATED CONTRAST DYE, XARELTO, IMITREX, MORPHINE, IODINE, ULTRAM, VANCOMYCIN, STAGE WIPES. FAMILY HISTORY: History of blood disorder, CHF, CVA, TIA, DVT, myocardial infarction, polycythemia. SOCIAL HISTORY: No history of smoking. No alcohol intake. REVIEW OF SYSTEMS: ENT: No diminished hearing or vision. CARDIOVASCULAR: As mentioned. RESPIRATORY: As mentioned. GI: No nausea. : No dysuria. NERVOUS SYSTEM: No numbness or weakness. ALLERGY/IMMUNOLOGY: No asthma or hay fever. MUSCULOSKELETAL: As mentioned earlier. HEMATOLOGY/ONCOLOGY: No history of anemia. ENDOCRINE: No history of diabetes or hypothyroidism. CONSTITUTIONAL: As mentioned earlier. DERMATOLOGY: Negative. RHEUMATOLOGY: Negative. PSYCHIATRY: As mentioned earlier. PHYSICAL EXAMINATION: Alert oriented x3. Pulse is 94, blood pressure 120/68, respiration 20, temperature 98.2, pulse ox 98% on 3 L. HEENT: Conjunctivae normal. Oral mucosa moist. NECK: No jugular venous distention. No carotid bruit. No lymph node enlargement. CARDIOVASCULAR: S1, S2. RESPIRATORY: Breath sounds diminished in the bases. Bilateral scattered rhonchi and crackles. ABDOMEN: Soft, obese, nontender. LEGS: No edema. NERVOUS SYSTEM: No focal deficits. Examination of the left arm: Tenderness and as well as some purulent discharge with PICC line site present. JOINTS: No active deforming arthropathy. LABS: CBC within normal limits. INR is 2.6 and potassium 2.8 and now is 3. Last plasma lactic acid 2.3. ASSESSMENT: 1. Left-sided infected PICC line and as well as possible sepsis, present on admission. 2. Increased lactic acid. 3. Hypokalemia, severe. 4. Hyponatremia. 5. History of chronic obstructive pulmonary disease. 6. History of recent MRSA bronchitis. 7. History of recent MRSA, Enterococcus faecalis and Lou from the bronchial culture. 8. History of chest pain, musculoskeletal. 9. Chronic pain syndrome. 10.Stage II pressure ulcer in the gluteal region. 11.Chronic interstitial lung disease, possibly secondary to sarcoidosis. 12.Chronic hypoxic respiratory failure. 13.History of pulmonary embolus and DVT, currently on Coumadin. 14.Coumadin monitoring. 15.Remote history of nicotine dependence. 16.Morbid obesity. 17.Possible obstructive sleep apnea. 18.Anxiety, bipolar. 19.Degenerative joint disease. 20.Hypertension. 21.Hyperlipidemia. 22.Fibromyalgia. 23.Chronic pain syndrome. RECOMMENDATIONS AND DISCUSSION: This 47-year-old woman who presented with multiple complex medical issues, we will monitor the patient closely. Continue the current medications and symptomatic treatment. Broad-spectrum IV antibiotics. Infectious Disease evaluation also. Optimize the pain management as well. Otherwise see orders for details. Home medication being resumed. Prognosis extremely guarded because of multiple complex medical issues. Further recommendations to follow. Copy of dictation being forwarded to Dr. Liz Koch, who is the primary physician. I will restart the morphine as well. See orders for details. MMODL / IJN: [id number] /
[2017-12-16] MEDS: MORPHINE SULFATE ER 30 MG TABLET PO PRN (14:48)
[2017-12-16] MEDS ORDERED: VANCOMYCIN IV PER PHARMACY 1 EACH MISC MISCELLANE PRN (15:33)
[2017-12-16] MEDS ORDERED: diphenhydrAMINE 50 MG/ML 1 ML VIAL IVP ONE (15:45)
[2017-12-16] MEDS ORDERED: VANCOMYCIN 2,000 MG in SODIUM CHLORIDE 0.9% 500 ML IVPB ONE (16:00)
[2017-12-16] MEDS: WARFARIN 10 MG TAB PO SCH (16:48)
--- NOTE | 2017-12-16 17:20 | CONS ---
CONSULTATION DATE OF SERVICE: 12/16/2017. REASON FOR CONSULTATION: PICC line infection. HISTORY OF PRESENT ILLNESS: The patient is a 47-year-old female who was recently admitted at this facility. The patient has been diagnosed with MRSA pneumonia. The patient did have multiple bronchoscopies and bronchioalveolar lavage. She did have a positive culture as of 11/09/2017 shows MRSA Lou albicans and Streptococcus. Subsequently bronch culture 11/29 has been negative. Blood culture 12/07 has been negative. The patient who was getting vancomycin in the outpatient setting apparently noticed having swelling and redness around her PICC line that has subsequently increased very quickly, become painful. Pain described to be throbbing almost 10/10 and painful to touch. The patient having a fever. With these symptoms, the patient was advised to be evaluated in the ER. On arrival to the ER last evening, the patient did have a low-grade fever of 99.3, white count was normal. Lactic acid elevated at 2.3. An ultrasound of the left upper extremity did show there was no evidence of DVT. However, there was a small 28 to 27 mm complex area at the PICC line insertion with . PICC line was subsequently discontinued and the tip has been sent for the culture. She has been admitted to the hospital, started on vancomycin. Infectious Disease was consulted for further recommendations regarding antibiotic therapy. Blood culture has been obtained as well which are currently pending. The patient currently denies having any significant chest pain. She did have some cough but not bringing up sputum. No nausea, no vomiting. No abdominal pain. No diarrhea. REVIEW OF SYSTEMS: CONSTITUTIONAL: Positive for weakness along with the fever. Eyes no complaint. ENT no complaint. Respiratory as per HPI. Cardiovascular no complaint. Genitourinary no complaint. Gastrointestinal: No complaint. Musculoskeletal no complaint. Integumentary as per HPI. Psychological no complaint. Endocrine no complaint. Neurologic no complaint. PAST MEDICAL HISTORY: Significant for a recurrent pneumonia, history of pulmonary embolism, DVT, myocardial infarction, hypothyroidism, hypertension, hyperlipidemia, heart failure, COPD, sarcoidosis. PAST SURGICAL HISTORY: , cholecystectomy, heart catheterization, hernia repair, left ankle surgery, PICC line placement. SOCIAL HISTORY: No history of smoking, drinking or drug use. FAMILY HISTORY: Father history of congestive heart failure, CVA, TIA, DVT. Mother with history of congestive heart failure, DVT. ALLERGIES: TO OPIOIDS, MORPHINE, KETOROLAC. MEDICATIONS: The patient is currently on Tylenol, Fioricet, [place], Xanax, baclofen, Bumex, daptomycin 600 mg q24 hours, Zofran, Protonix, prednisone, Senokot. EXAMINATION: Blood pressure is 130/85 with a pulse of 83, temperature 98.2. She is 96% on 2 L nasal cannula. General description is a middle aged female up in the bed in no distress. No tachypnea or accessory muscles of respiration use. HEENT: Shows no pallor or scleral icterus. Oral mucosal membranes are moist. No pharyngeal erythema or thrush. Neck trachea central. No thyromegaly. LUNGS: Unlabored breathing. Coarse breath sounds in the bases. No wheezes or crackles. Heart S1, S2. Regular rate and rhythm. ABDOMEN: Soft, no tenderness. No guarding or rigidity. EXTREMITIES: No edema of feet. Examination of left upper extremity site of the PICC line insertion did not appreciate any induration or fluctuation and no drainage. NEUROLOGICAL: Patient is awake, alert, oriented times three. Mood and affect normal. LABS: Hemoglobin is 14, white count 8.8 with a BUN of 8, creatinine potassium was 2.8 up to 3. Lactic acid 2.3. Liver enzymes are normal. Chest x-ray, no active cardiopulmonary disease. Renal Doppler suspicious for a small fluid collection but no DVT. DIAGNOSTIC IMPRESSION AND PLAN: Patient admitted to the hospital with a fever with concern for a PICC line infection with small noted at the insertion site. Subsequent removal of the PICC line. Catheter tip culture has been pending. Blood culture negative so far. The patient fever responded after removal of that infected catheter. Chest x-ray currently negative for any pneumonia. The patient previously being treated with vancomycin for underlying MRSA infection on the lung. PLAN: 1. Discontinue daptomycin. 2. Vancomycin pharmacy to dose target of 15 while waiting for the catheter blood culture finalized. 3. As the patient is known to Dr. Lott she will be signed out to him tomorrow. 4. All her questions and concerns were answered. MMODL / IJN: [id number] /
[2017-12-16] MEDS: MIRTAZAPINE 45 MG TABLET PO SCH (20:13)
[2017-12-16] MEDS: diphenhydrAMINE 50 MG/ML 1 ML VIAL IVP SCH (23:19)
[2017-12-16] MEDS: VANCOMYCIN 1,500 MG in SODIUM CHLORIDE 0.9% 250 ML IVPB SCH (23:21)
[2017-12-17] MEDS: MORPHINE SULFATE ER 30 MG TABLET PO PRN ×3 (02:22→23:32)
[2017-12-17] MEDS: MORPHINE SULFATE 2 MG/ML SYRINGE IV PRN ×4 (06:19→21:45)
[2017-12-17] MEDS: IPRATROPIUM-ALBUTEROL 3 ML NEB INHALATION SCH ×4 (07:15→19:04)
[2017-12-17] MEDS: FLUoxetine HCL 20 MG CAP PO SCH (08:42)
[2017-12-17] MEDS: lamoTRIgine 100 MG TAB PO SCH (08:42)
[2017-12-17] MEDS: guaiFENesin 600 MG TABLET.ER PO SCH ×2 (08:42→21:46)
[2017-12-17] MEDS: BUMETANIDE 1 MG TAB PO SCH ×2 (08:42→11:49)
[2017-12-17] MEDS: busPIRone HCl 10 MG TAB PO SCH ×2 (08:42→21:46)
[2017-12-17] MEDS: POTASSIUM CHLORIDE ER 20 MEQ TAB.ER PO SCH ×5 (08:42→18:36)
[2017-12-17] MEDS: METOPROLOL TARTRATE 50 MG TAB PO SCH ×2 (08:42→21:46)
[2017-12-17] MEDS: PANTOPRAZOLE 40 MG TABLET PO SCH (08:43)
[2017-12-17] MEDS: predniSONE 10 MG TAB PO SCH (08:43)
[2017-12-17] MEDS: PREGABALIN 75 MG CAP PO SCH ×2 (08:49→21:47)
[2017-12-17] MEDS: ALPRAZolam 0.5 MG TAB PO PRN ×2 (08:49→21:47)
[2017-12-17] MEDS: diphenhydrAMINE 50 MG/ML 1 ML VIAL IVP SCH ×3 (08:49→23:31)
[2017-12-17] MEDS: VANCOMYCIN 1,500 MG in SODIUM CHLORIDE 0.9% 250 ML IVPB SCH ×3 (08:50→23:31)
[2017-12-17] MEDS: NYSTATIN 100,000 UNIT/GM POWD 15 GM TOPICAL SCH ×2 (08:54→21:47)
[2017-12-17] MEDS: SODIUM CHLORIDE 0.9% 1,000 ML IV SCH (08:55)
[2017-12-17 09:12] LABS: INR 2.1 (<1.2); Prothrombin Time 19.1 sec (9.0-12.0)
[2017-12-17 09:19] LABS: Basophils % (A) 1 %; Eosinophils # (A) 0.2 k/uL (0-0.7); Eosinophils % (A) 3 %; HCT 36.1 % (34.0-46.0); HGB 12.2 gm/dL (11.4-16.0); Lymphocytes # (A) 2.1 k/uL (1.0-4.8); Lymphocytes % (A) 32 %; MCH 29.5 pg (25.0-35.0); MCHC 33.8 g/dL (31.0-37.0); MCV 87.3 fL (80.0-100.0); Mean Platelet Volume 7.3; Monocytes # (A) 0.6 k/uL (0-1.0); Monocytes % (A) 10 %; Neutrophils # (A) 3.4 k/uL (1.3-7.7); Neutrophils % (A) 51 %; Platelet Count 181 k/uL (150-450); RBC 4.13 m/uL (3.80-5.40); RDW 14.8 % (11.5-15.5); WBC 6.6 k/uL (3.8-10.6)
[2017-12-17 09:25] LABS: Calcium 7.7 mg/dL (8.4-10.2); Potassium 3.3 mmol/L (3.5-5.1)
--- NOTE | 2017-12-17 13:09 | CONS ---
CONSULTATION This is a 47-year-old female, I was consulted for possible abscess in left upper arm, post removal of the PICC line. The patient under care of Dr. Kobi Lott. Patient is having vancomycin for MRSA in the lung. There was some drainage noted at the time of removal of the catheter. Today, I have seen the patient and there is slight tenderness noted in the left upper arm. No fluctuation of the mass noted. Patient had an ultrasound done which showed a 2.8 x 1 x 0.7 cm could be represent an abscess or phlegmon. There is no evidence of deep vein thrombosis. MEDICAL HISTORY: History of congestive heart failure, COPD, history of hypertension, hyperlipidemia, history of pulmonary emphysema and COPD bronchitis. Patient was seen in her room. Neck is supple, trachea central, chest clear. Abdomen is soft. Left upper arm brachial and radial pulses present. Patient has a slight tenderness in the left upper arm. No drainage, no discharge noted. Discussed with Dr. Lott. If the patient does not improve by antibiotic, we will plan to drain the abscess if it fluctuates. At this point, I did not see any soft area. Will follow with you. MMODL / IJN: [id number] /
[2017-12-17] MEDS: WARFARIN 10 MG TAB PO SCH (17:24)
[2017-12-17] MEDS ORDERED: MAGNESIUM SULFATE-D5W PMX 1 GM in DEXTROSE/WATER 1 100ML.BAG IVPB ONE (19:30)
[2017-12-17] MEDS: MIRTAZAPINE 45 MG TABLET PO SCH (21:47)
--- NOTE | 2017-12-17 22:20 | P.PN ---
Subjective Progress Note Date: 12/17/17 47-year-old female with a history of sarcoidosis and significant underlying lung disease presents to the emergency center with pain and discomfort to her left arm PICC line site. She has recently required a course of intravenous antibiotic therapy with vancomycin for MRSA pneumonia. Recent bronchoscopy was negative but she had a marked improvement and was discharged home on vancomycin therapy. The primary service had a PICC line inserted. Upon presenting to the emergency center there was pain and swelling to her left arm was directed by her home care nurse to come to the ER. PICC line was removed and there is evidence of a small phlegmon at the insertion site is noted by ultrasound without evidence of abscess. She was seen by vascular surgery and they will monitor and incise and drain as needed. Cultures are currently pending and has received antibiotic therapy with vancomycin. Complaints of pain at the site. Her pulmonary status is quite stable and improved from the last evaluation. Objective - Vital Signs Vital signs: Vital Signs Temp 97.9 F 12/17/17 14:15 Pulse 82 12/17/17 19:15 Resp 16 12/17/17 19:15 BP 96/63 12/17/17 14:15 Pulse Ox 92 L 12/17/17 14:15 Intake & Output 12/17/17 12/17/17 12/18/17 06:59 18:59 06:59 Intake Total 2280 Balance 2280 Intake: Oral 2280 Other: Voiding Method Toilet Toilet # Voids 2 1 - Exam 47-year-old female who has obesity. Patient is sitting up in bed and appears to be mostly comfortable. Mild respiratory distress with talking. HEENT: Anicteric conjunctiva are pink and moist nasal mucosa grossly intact without significant lesions, there is no thrush. Neck: The neck is supple without significant lymphadenopathy or thyromegaly. Lungs: Symmetrical air entry is noted, few expiratory wheezes are scattered throughout with no true bronchial sounds no dullness or egophony Heart: Regular rate and rhythm with an audible S1-S2, no S3 no S4. There is no significant murmur click or rub, PMI was nondisplaced. Tenderness to the right lower lateral/anterior ribs. Abdomen: Obese, Positive bowel sounds soft and nontender without palpable masses or organomegaly. There was no guarding or rebound. Extremities: The upper extremities reveal evidence of the recent PICC line to be left antecubital area, patient complains of severe pain upon manipulation, there is only minimal erythema, no expressible purulence, no palpable cord either noted. No splinter hemorrhages were noted. The lower extremities have only trace pedal edema The peripheral pulses were 2+ and symmetric. Neuro: Awake alert oriented to person place and time. There are no acute new gross focal sensory motor deficits. - Labs CBC & Chem 7: 12/17/17 08:18 12/17/17 16:11 Labs: Abnormal Lab Results - Last 24 Hours (Table) 12/17/17 12/17/17 12/17/17 Range/Units : 08:18 16:11 PT 19.1 H (9.0-12.0) sec INR 2.1 H (<1.2) Potassium 3.3 L 3.4 L (3.5-5.1) mmol/L Glucose 133 H (74-99) mg/dL Calcium 7.7 L (8.4-10.2) mg/dL Microbiology - Last 24 Hours (Table) 12/15/17 16:55 Blood Culture - Preliminary Blood No Growth after 48 hours 12/15/17 17:22 Catheter Tip Culture - Final Picc Line Laboratory Results WBC 6.6 k/uL (3.8-10.6) 12/17/17 08:18 RBC 4.13 m/uL (3.80-5.40) 12/17/17 08:18 Hgb 12.2 gm/dL (11.4-16.0) 12/17/17 08:18 Hct 36.1 % (34.0-46.0) 12/17/17 08:18 MCV 87.3 fL (80.0-100.0) 12/17/17 08:18 MCH 29.5 pg (25.0-35.0) 12/17/17 08:18 MCHC 33.8 g/dL (31.0-37.0) 12/17/17 08:18 RDW 14.8 % (11.5-15.5) 12/17/17 08:18 Plt Count 181 k/uL (150-450) 12/17/17 08:18 Neutrophils % 51 % 12/17/17 08:18 Lymphocytes % 32 % 12/17/17 08:18 Monocytes % 10 % 12/17/17 08:18 Eosinophils % 3 % 12/17/17 08:18 Basophils % 1 % 12/17/17 08:18 Neutrophils # 3.4 k/uL (1.3-7.7) 12/17/17 08:18 Lymphocytes # 2.1 k/uL (1.0-4.8) 12/17/17 08:18 Monocytes # 0.6 k/uL (0-1.0) 12/17/17 08:18 Eosinophils # 0.2 k/uL (0-0.7) 12/17/17 08:18 Basophils # 0.0 k/uL (0-0.2) 12/17/17 08:18 PT 19.1 sec (9.0-12.0) H 12/17/17 08:18 INR 2.1 (<1.2) H 12/17/17 08:18 Sodium 140 mmol/L (137-145) 12/17/17 08:18 Potassium 3.4 mmol/L (3.5-5.1) L 12/17/17 16:11 Chloride 106 mmol/L (98-107) 12/17/17 08:18 Carbon Dioxide 23 mmol/L (22-30) 12/17/17 08:18 Anion Gap 11 mmol/L 12/17/17 08:18 BUN 16 mg/dL (7-17) 12/17/17 08:18 Creatinine 0.97 mg/dL (0.52-1.04) 12/17/17 08:18 Est GFR (CKD-EPI)AfAm 82 (>60 ml/min/1.73 sqM) 12/17/17 08:18 Est GFR (CKD-EPI)NonAf 71 (>60 ml/min/1.73 sqM) 12/17/17 08:18 Glucose 133 mg/dL (74-99) H 12/17/17 08:18 Lactic Ac Sepsis Rflx Y 12/16/17 11:59 Plasma Lactic Acid Chuck 1.7 mmol/L (0.7-2.0) 12/17/17 16:11 Calcium 7.7 mg/dL (8.4-10.2) L 12/17/17 08:18 Total Bilirubin 0.5 mg/dL (0.2-1.3) 12/15/17 16:55 AST 24 U/L (14-36) 12/15/17 16:55 ALT 44 U/L (9-52) 12/15/17 16:55 Alkaline Phosphatase 95 U/L (38-126) 12/15/17 16:55 Total Protein 6.4 g/dL (6.3-8.2) 12/15/17 16:55 Albumin 3.6 g/dL (3.5-5.0) 12/15/17 16:55 Microbiology 12/15/17 16:55 Blood Blood Culture - Preliminary No Growth after 48 hours 12/15/17 17:22 Picc Line Catheter Tip Culture - Final Assessment and Plan (1) History of MRSA infection of lungs Current Visit: Yes Status: Acute Code(s): Z86.14 - PERSONAL HISTORY OF METHICILLIN RESIS STAPH INFECTION SNOMED Code(s): 846150092 (2) PICC line infection Narrative/Plan: 47-year-old female presents the emergency center with complaints of pain and swelling to her left arm at the site of her PICC line. This is now been removed and cultures have been obtained. Cultures are pending and negative so far. She is being treated with vancomycin therapy until there is further data. Topical therapy with mupirocin will be utilized and a K pad is requested to try to improve comfort at that site. She is not having fever and there is evidence of no acute worsening of her pulmonary status. She does ask on several occasions if a port can be placed, we discussed that tyrell have similar risk of infection is lying such as PICC lines and is not an option at this point in time if she is not needing long-term antibiotic therapy. If she continues to have significant pulmonary illness, she can work with her first assistant to determine if she needs an alternative type of IV access. Patient is aware that this provider believes that she should be evaluated at a tertiary center for her progressive lung disease. Current Visit: Yes Status: Acute Code(s): T80.219A - UNSP INFECTION DUE TO CENTRAL VENOUS CATHETER, INIT ENCNTR SNOMED Code(s): 820683957
[2017-12-17] MEDS ORDERED: POTASSIUM CHLORIDE ER 20 MEQ TAB.ER PO STA (22:43)
[2017-12-17] MEDS: MUPIROCIN 2% OINT 22 GM TUBE TOPICAL SCH (23:31)
[2017-12-18] MEDS: MORPHINE SULFATE 2 MG/ML SYRINGE IV PRN ×6 (01:29→22:14)
[2017-12-18] MEDS: SODIUM CHLORIDE 0.9% 1,000 ML IV SCH (06:13)
[2017-12-18] MEDS: diphenhydrAMINE 50 MG/ML 1 ML VIAL IVP SCH ×3 (08:22→23:28)
[2017-12-18] MEDS: BUMETANIDE 1 MG TAB PO SCH ×2 (08:23→11:34)
[2017-12-18] MEDS: VANCOMYCIN 1,500 MG in SODIUM CHLORIDE 0.9% 250 ML IVPB SCH ×3 (08:23→23:43)
[2017-12-18] MEDS: PANTOPRAZOLE 40 MG TABLET PO SCH (08:23)
[2017-12-18] MEDS: FLUoxetine HCL 20 MG CAP PO SCH (08:24)
[2017-12-18] MEDS: guaiFENesin 600 MG TABLET.ER PO SCH ×2 (08:24→21:18)
[2017-12-18] MEDS: busPIRone HCl 10 MG TAB PO SCH ×2 (08:24→21:18)
[2017-12-18] MEDS: lamoTRIgine 100 MG TAB PO SCH (08:24)
[2017-12-18] MEDS: METOPROLOL TARTRATE 50 MG TAB PO SCH ×2 (08:25→21:19)
[2017-12-18] MEDS: NYSTATIN 100,000 UNIT/GM POWD 15 GM TOPICAL SCH ×2 (08:26→21:19)
[2017-12-18] MEDS: POTASSIUM CHLORIDE ER 20 MEQ TAB.ER PO SCH ×5 (08:26→17:26)
[2017-12-18] MEDS: predniSONE 10 MG TAB PO SCH (08:26)
[2017-12-18] MEDS: PREGABALIN 75 MG CAP PO SCH ×2 (08:26→21:19)
[2017-12-18] MEDS: ALPRAZolam 0.5 MG TAB PO PRN ×2 (08:27→21:20)
[2017-12-18] MEDS: MORPHINE SULFATE ER 30 MG TABLET PO PRN ×2 (08:27→17:27)
[2017-12-18 08:30] LABS: Prothrombin Time 26.5 sec (9.0-12.0)
[2017-12-18] MEDS: MUPIROCIN 2% OINT 22 GM TUBE TOPICAL SCH ×3 (08:38→21:20)
[2017-12-18] MEDS: IPRATROPIUM-ALBUTEROL 3 ML NEB INHALATION SCH ×4 (09:00→21:20)
[2017-12-18 09:11] LABS: Calcium 7.6 mg/dL (8.4-10.2); Magnesium 2.1 mg/dL (1.6-2.3); Potassium 3.4 mmol/L (3.5-5.1)
[2017-12-18 09:16] LABS: Basophils % (A) 0 %; Eosinophils # (A) 0.3 k/uL (0-0.7); Eosinophils % (A) 3 %; HCT 38.2 % (34.0-46.0); HGB 12.7 gm/dL (11.4-16.0); Lymphocytes # (A) 2.6 k/uL (1.0-4.8); Lymphocytes % (A) 32 %; MCH 29.1 pg (25.0-35.0); MCHC 33.1 g/dL (31.0-37.0); MCV 87.8 fL (80.0-100.0); Mean Platelet Volume 7.7; Monocytes % (A) 12 %; Neutrophils % (A) 50 %; Platelet Count 191 k/uL (150-450); RBC 4.35 m/uL (3.80-5.40); RDW 14.8 % (11.5-15.5); WBC 8.1 k/uL (3.8-10.6)
[2017-12-18] MEDS ORDERED: Potassium Replacement Protocol 1 EACH MISC MISCELLANE PRN ×2 (10:32→15:46)
[2017-12-18] MEDS ORDERED: VANCOMYCIN TROUGH DUE 1 EACH MISC MISCELLANE ONE (15:00)
[2017-12-18] MEDS ORDERED: POTASSIUM CHLORIDE ER 20 MEQ TAB.ER PO STA (16:51)
--- NOTE | 2017-12-18 17:04 | P.PN ---
Subjective Progress Note Date: 12/17/17 Progress note being dictated for Dr. Church. Interval history: This is a 47-year-old female known left-sided infected PICC line, status post removal with history of multiple medical issues including recent MRSA, enterococcus faecalis and Lou from the bronchial culture. Evaluated by both vascular surgery and infectious disease, recommendations noted. Maintained on IV antibiotics of vancomycin as per infectious disease, cultures currently pending. Complains of pain/tenderness at the affected site, radiating to axilla. Denies chest pain, palpitations or increasing shortness of breath. INR 2.1. Potassium 3.3. Objective - Vital Signs Vital signs: Vital Signs Temp 97.9 F 12/17/17 14:15 Pulse 89 12/17/17 16:00 Resp 16 12/17/17 16:00 BP 96/63 12/17/17 14:15 Pulse Ox 92 L 12/17/17 14:15 Intake & Output 12/16/17 12/17/17 12/17/17 18:59 06:59 18:59 Intake Total 840 2280 Balance 840 2280 Intake: Oral 840 2280 Other: Voiding Method Toilet Toilet # Voids 1 2 1 - Exam PHYSICAL EXAM: VITAL SIGNS: As above GENERAL: Sitting up in bed, no acute distress HEENT: Conjunctivae normal. eyes normal. Oral mucosa moist NECK: No JVD. No thyroid enlargement. No LNs CARDIOVASCULAR: S1, S2 muffled. No murmur RESPIRATION: Breath sounds diminished in the bases. No rhonchi or crackles. No bronchial breathing. ABDOMEN: Soft, nontender . No guarding. no masses palpable. Bowel sounds heard. LEGS: Trace edema. no clubbing, no cyanosis, positive peripheral pulses PSYCHIATRY: Alert and oriented -3, mood and affect normal. NERVOUS SYSTEM: Cranial N 2-12 grossly normal. Moves all 4 limbs. Diffuse weakness No focal deficits. Skin: Left upper extremity, soft, minimal erythema, no drainage, tender - Labs CBC & Chem 7: 12/18/17 07:50 12/18/17 14:53 Labs: Abnormal Lab Results - Last 24 Hours (Table) 12/17/17 12/17/17 12/17/17 Range/Units 08:18 08:18 16:11 PT 19.1 H (9.0-12.0) sec INR 2.1 H (<1.2) Potassium 3.3 L 3.4 L (3.5-5.1) mmol/L Glucose 133 H (74-99) mg/dL Calcium 7.7 L (8.4-10.2) mg/dL Microbiology - Last 24 Hours (Table) 12/15/17 17:22 Catheter Tip Culture - Final Picc Line 12/15/17 16:55 Blood Culture - Preliminary Blood No Growth after 24 hours Assessment and Plan Assessment: -Left-sided infected PICC line with possible sepsis, present on admission -Severe hypokalemia, improving with supplements -COPD, stable -Recent MRSA bronchitis -Recent MRSA, enterococcus faecalis and Lou from bronchial culture -Fibromyalgia -Chronic pain syndrome -Stage II pressure ulcer gluteal region -Chronic interstitial lung disease possibly secondary to sarcoidosis -Chronic hypoxic respiratory failure -Coumadin monitoring -Anxiety, bipolar Plan: Continue current medication regime ,monitoring and symptomatic treatment. Maintained on IV vancomycin as per infectious disease. Follow closely with both vascular surgery and infectious disease. Vascular surgery discussing potential I&D if no improvement with antibiotics, or fluctuation. Potassium and supplemented per replacement protocol. Close monitoring of renal function, electrolytes with repeat labs ordered for a.m. daily PT INR .Plan of care discussed at bedside with patient, who verbalized understanding of, agreement with. The impression and plan of care has been dictated as directed. : I performed a history and examination of this patient, discussed the same with the dictator. I agree with the dictator's note ,documented as a scribe. Any additional findings or plans will be noted.
--- NOTE | 2017-12-18 17:26 | P.PN ---
Subjective Progress Note Date: 12/18/17 Progress note being dictated for Dr. Truong Interval history: This is a 47-year-old female known left-sided infected PICC line, status post removal with history of multiple medical issues including recent MRSA, enterococcus faecalis and Lou from the bronchial culture. Evaluated by both vascular surgery and infectious disease, recommendations noted. Maintained on IV antibiotics of vancomycin as per infectious disease, cultures currently pending. Complains of pain/tenderness at the affected site, radiating to axilla. Denies chest pain, palpitations or increasing shortness of breath. INR 2.1. Potassium 3.3. 12/18/17 complains of fatigue. Afebrile, catheter tip culture reports no growth. Potassium 3.4, receiving supplements. Magnesium 2.1. Left upper extremity affected site continues to improve. Complains of tenderness. Denies chest pain, palpitations or increased urgency breath. INR 3. Objective - Vital Signs Vital signs: Vital Signs Temp 98.2 F 12/18/17 13:56 Pulse 100 12/18/17 16:17 Resp 20 12/18/17 13:56 BP 118/75 12/18/17 13:56 Pulse Ox 93 L 12/18/17 13:56 Intake & Output 12/17/17 12/18/17 12/18/17 18:59 06:59 18:59 Intake Total 2280 200 600 Balance 2280 200 600 Intake: Oral 2280 200 600 Other: Voiding Method Toilet # Voids 1 1 3 - Exam PHYSICAL EXAM: VITAL SIGNS: As above GENERAL: Sitting up in bed, no acute distress, tired appearing HEENT: Conjunctivae normal. eyes normal. Oral mucosa moist NECK: No JVD. No thyroid enlargement. No LNs CARDIOVASCULAR: S1, S2 muffled. No murmur RESPIRATION: Breath sounds diminished in the bases. No rhonchi or crackles. No bronchial breathing. ABDOMEN: Soft, nontender . No guarding. no masses palpable. Bowel sounds heard. LEGS: Trace edema. no clubbing, no cyanosis, positive peripheral pulses PSYCHIATRY: Alert and oriented -3, mood and affect normal. NERVOUS SYSTEM: Cranial N 2-12 grossly normal. Moves all 4 limbs. Diffuse weakness No focal deficits. Skin: Left upper extremity, soft, improving minimal erythema, no drainage, tender Microbiology 12/15/17 16:55 Blood Blood Culture - Preliminary No Growth after 48 hours 12/15/17 17:22 Picc Line Catheter Tip Culture - Final - Labs CBC & Chem 7: 12/18/17 07:50 12/18/17 14:53 Labs: Abnormal Lab Results - Last 24 Hours (Table) 12/17/17 12/18/17 12/18/17 Range/Units 21:58 07:50 07:50 PT 26.5 H (9.0-12.0) sec INR 3.0 H (<1.2) Potassium 3.4 L 3.4 L (3.5-5.1) mmol/L Glucose 109 H (74-99) mg/dL Calcium 7.6 L (8.4-10.2) mg/dL 12/18/17 Range/Units 14:53 PT (9.0-12.0) sec INR (<1.2) Potassium 3.3 L (3.5-5.1) mmol/L Glucose (74-99) mg/dL Calcium (8.4-10.2) mg/dL Microbiology - Last 24 Hours (Table) 12/15/17 16:55 Blood Culture - Preliminary Blood No Growth after 48 hours 12/15/17 17:22 Catheter Tip Culture - Final Picc Line Assessment and Plan Assessment: -Left-sided infected PICC line with possible sepsis, present on admission -Severe hypokalemia, improving with supplements -COPD, stable -Recent MRSA bronchitis -Recent MRSA, enterococcus faecalis and Lou from bronchial culture -Fibromyalgia -Chronic pain syndrome -Stage II pressure ulcer gluteal region -Chronic interstitial lung disease possibly secondary to sarcoidosis -Chronic hypoxic respiratory failure -Coumadin monitoring -Anxiety, bipolar Plan: Continue current medication regime ,monitoring and symptomatic treatment. Continues on IV vancomycin as per infectious disease. Supplement Potassium as ordered. Close monitoring of renal function, electrolytes with repeat labs ordered for a.m. Coumadin dose decreased, daily PT INR. Follow closely with both vascular surgery and infectious disease. The impression and plan of care has been dictated as directed. : I performed a history and examination of this patient, discussed the same with the dictator. I agree with the dictator's note ,documented as a scribe. Any additional findings or plans will be noted.
[2017-12-18] MEDS ORDERED: WARFARIN 5 MG TAB PO ONE (18:00)
[2017-12-18] MEDS: MIRTAZAPINE 45 MG TABLET PO SCH (21:19)
[2017-12-19] MEDS: SODIUM CHLORIDE 0.9% 1,000 ML IV SCH ×2 (03:00→21:45)
[2017-12-19] MEDS: MORPHINE SULFATE 2 MG/ML SYRINGE IV PRN ×5 (03:28→21:44)
[2017-12-19] MEDS: MORPHINE SULFATE ER 30 MG TABLET PO PRN ×3 (05:54→23:43)
[2017-12-19] MEDS: IPRATROPIUM-ALBUTEROL 3 ML NEB INHALATION SCH ×4 (07:02→19:31)
[2017-12-19] MEDS: PANTOPRAZOLE 40 MG TABLET PO SCH (07:54)
[2017-12-19] MEDS: diphenhydrAMINE 50 MG/ML 1 ML VIAL IVP SCH ×3 (07:54→23:45)
[2017-12-19] MEDS: BUMETANIDE 1 MG TAB PO SCH ×2 (07:55→12:42)
[2017-12-19] MEDS: busPIRone HCl 10 MG TAB PO SCH ×2 (07:55→20:15)
[2017-12-19] MEDS: guaiFENesin 600 MG TABLET.ER PO SCH ×2 (07:55→20:15)
[2017-12-19] MEDS: FLUoxetine HCL 20 MG CAP PO SCH (07:55)
[2017-12-19] MEDS: METOPROLOL TARTRATE 50 MG TAB PO SCH ×2 (07:56→20:15)
[2017-12-19] MEDS: MUPIROCIN 2% OINT 22 GM TUBE TOPICAL SCH ×3 (07:56→20:18)
[2017-12-19] MEDS: lamoTRIgine 100 MG TAB PO SCH (07:56)
[2017-12-19] MEDS: predniSONE 10 MG TAB PO SCH (07:57)
[2017-12-19] MEDS: NYSTATIN 100,000 UNIT/GM POWD 15 GM TOPICAL SCH ×2 (07:57→23:35)
[2017-12-19] MEDS: POTASSIUM CHLORIDE ER 20 MEQ TAB.ER PO SCH (07:57)
[2017-12-19 09:40] LABS: Basophils # (A) 0.1 k/uL (0-0.2); Basophils % (A) 1 %; Eosinophils # (A) 0.2 k/uL (0-0.7); Eosinophils % (A) 2 %; HCT 40.1 % (34.0-46.0); HGB 12.7 gm/dL (11.4-16.0); Hypochromasia Slight; Lymphocytes % (A) 21 %; MCH 28.2 pg (25.0-35.0); MCHC 31.8 g/dL (31.0-37.0); MCV 88.7 fL (80.0-100.0); Mean Platelet Volume 6.5; Monocytes # (A) 0.9 k/uL (0-1.0); Monocytes % (A) 10 %; Neutrophils # (A) 5.9 k/uL (1.3-7.7); Neutrophils % (A) 63 %; Platelet Count 236 k/uL (150-450); RBC 4.52 m/uL (3.80-5.40); RDW 14.9 % (11.5-15.5); WBC 9.3 k/uL (3.8-10.6)
[2017-12-19 09:41] LABS: INR 3.1 (<1.2); Prothrombin Time 27.5 sec (9.0-12.0)
[2017-12-19 09:57] LABS: Anion Gap 10 mmol/L; Blood Urea Nitrogen 10 mg/dL (7-17); Carbon Dioxide 23 mmol/L (22-30); Chloride 106 mmol/L (98-107); Glucose 148 mg/dL (74-99); Potassium 3.5 mmol/L (3.5-5.1); Sodium 139 mmol/L (137-145)
[2017-12-19] MEDS: PREGABALIN 75 MG CAP PO SCH ×2 (10:19→20:15)
[2017-12-19] MEDS: VANCOMYCIN 1,250 MG in SODIUM CHLORIDE 0.9% 250 ML IVPB SCH ×2 (15:11→23:43)
[2017-12-19] MEDS ORDERED: POTASSIUM CHLORIDE ER 20 MEQ TAB.ER PO STA (16:57)
--- NOTE | 2017-12-19 18:05 | P.PN ---
Subjective Progress Note Date: 12/19/17 Progress note being dictated for Dr. Truong Interval history: This is a 47-year-old female known left-sided infected PICC line, status post removal with history of multiple medical issues including recent MRSA, enterococcus faecalis and Lou from the bronchial culture. Evaluated by both vascular surgery and infectious disease, recommendations noted. Maintained on IV antibiotics of vancomycin as per infectious disease, cultures currently pending. Complains of pain/tenderness at the affected site, radiating to axilla. Denies chest pain, palpitations or increasing shortness of breath. INR 2.1. Potassium 3.3. 12/18/17 complains of fatigue. Afebrile, catheter tip culture reports no growth. Potassium 3.4, receiving supplements. Magnesium 2.1. Left upper extremity affected site continues to improve. Complains of tenderness. Denies chest pain, palpitations or increased urgency breath. INR 3. 12/19/2017 afebrile . Maintained on IV antibiotics as per ID. Pain controlled. Receiving potassium supplements, potassium 3.5. INR 3.1. Maintaining O2 sats in the 90s on 3 L nasal cannula. Denies chest pain, palpitations or increasing shortness of breath. Objective - Vital Signs Vital signs: Vital Signs Temp 98.4 F 12/19/17 15:07 Pulse 90 12/19/17 15:44 Resp 16 12/19/17 15:07 BP 111/69 12/19/17 15:07 Pulse Ox 94 L 12/19/17 15:07 Intake & Output 12/18/17 12/19/17 12/19/17 18:59 06:59 18:59 Intake Total 4995 831 9284 Balance 2762 639 1858 Intake: Oral 5194 252 4936 Other: # Voids 1 1 1 - Exam PHYSICAL EXAM: VITAL SIGNS: As above GENERAL: Sitting up in bed, no acute distress HEENT: Conjunctivae normal. eyes normal. Oral mucosa moist NECK: No JVD. No thyroid enlargement. No LNs CARDIOVASCULAR: S1, S2 muffled. No murmur RESPIRATION: Breath sounds diminished in the bases. No rhonchi or crackles. ABDOMEN: Soft, nontender . No guarding. no masses palpable. Bowel sounds heard. LEGS: Trace edema. no clubbing, no cyanosis, positive peripheral pulses PSYCHIATRY: Alert and oriented -3, mood and affect normal. NERVOUS SYSTEM: Cranial N 2-12 grossly normal. Moves all 4 limbs. Diffuse weakness No focal deficits. Skin: Left upper extremity, soft, continued improvement with minimal erythema, no drainage, tender Microbiology 12/15/17 16:55 Blood Blood Culture - Preliminary No Growth after 72 hours 12/15/17 17:22 Picc Line Catheter Tip Culture - Final - Labs CBC & Chem 7: 12/19/17 08:58 12/19/17 08:58 Labs: Abnormal Lab Results - Last 24 Hours (Table) 12/19/17 12/19/17 Range/Units 08:58 08:58 PT 27.5 H (9.0-12.0) sec INR 3.1 H (<1.2) Glucose 148 H (74-99) mg/dL Calcium 8.0 L (8.4-10.2) mg/dL Microbiology - Last 24 Hours (Table) 12/15/17 16:55 Blood Culture - Preliminary Blood No Growth after 72 hours Assessment and Plan Assessment: -Left-sided infected PICC line with possible sepsis, present on admission -Severe hypokalemia, improving with supplements -COPD, stable -Recent MRSA bronchitis -Recent MRSA, enterococcus faecalis and Lou from bronchial culture -Fibromyalgia -Chronic pain syndrome -Stage II pressure ulcer gluteal region -Chronic interstitial lung disease possibly secondary to sarcoidosis -Chronic hypoxic respiratory failure -Coumadin monitoring -Anxiety, bipolar Plan: Continue current medication regime ,monitoring and symptomatic treatment. Continues on IV antibiotics as per infectious disease. Scheduled potassium increased. Supplement Potassium as ordered. Close monitoring of renal function , electrolytes with repeat labs ordered for a.m. Coumadin dose decreased, INR 3.1, hold Coumadin today. The impression and plan of care has been dictated as directed. : I performed a history and examination of this patient, discussed the same with the dictator. I agree with the dictator's note ,documented as a scribe. Any additional findings or plans will be noted.
[2017-12-19] MEDS: MIRTAZAPINE 45 MG TABLET PO SCH (20:16)
[2017-12-20 00:33] VITALS: RESP 18
[2017-12-20] MEDS: MORPHINE SULFATE 2 MG/ML SYRINGE IV PRN ×2 (01:06→06:08)
[2017-12-20] MEDS: IPRATROPIUM-ALBUTEROL 3 ML NEB INHALATION SCH ×2 (07:07→10:45)
[2017-12-20] MEDS: busPIRone HCl 10 MG TAB PO SCH (07:56)
[2017-12-20] MEDS: BUMETANIDE 1 MG TAB PO SCH ×2 (07:56→11:24)
[2017-12-20] MEDS: guaiFENesin 600 MG TABLET.ER PO SCH (07:57)
[2017-12-20] MEDS: FLUoxetine HCL 20 MG CAP PO SCH (07:57)
[2017-12-20] MEDS: METOPROLOL TARTRATE 50 MG TAB PO SCH (07:57)
[2017-12-20] MEDS: predniSONE 10 MG TAB PO SCH (07:57)
[2017-12-20] MEDS: PANTOPRAZOLE 40 MG TABLET PO SCH (07:57)
[2017-12-20] MEDS: lamoTRIgine 100 MG TAB PO SCH (07:57)
[2017-12-20] MEDS: MUPIROCIN 2% OINT 22 GM TUBE TOPICAL SCH (08:00)
[2017-12-20] MEDS: NYSTATIN 100,000 UNIT/GM POWD 15 GM TOPICAL SCH (08:00)
[2017-12-20] MEDS: PREGABALIN 75 MG CAP PO SCH (08:07)
[2017-12-20] MEDS: MORPHINE SULFATE ER 30 MG TABLET PO PRN (08:07)
[2017-12-20] MEDS: ALPRAZolam 0.5 MG TAB PO PRN (08:07)
[2017-12-20 08:17] LABS: Basophils # (A) 0.1 k/uL (0-0.2); Basophils % (A) 1 %; Eosinophils # (A) 0.3 k/uL (0-0.7); Eosinophils % (A) 3 %; HCT 40.3 % (34.0-46.0); HGB 13.3 gm/dL (11.4-16.0); Lymphocytes # (A) 2.6 k/uL (1.0-4.8); Lymphocytes % (A) 30 %; MCH 28.8 pg (25.0-35.0); MCHC 33.1 g/dL (31.0-37.0); Mean Platelet Volume 6.6; Monocytes # (A) 0.8 k/uL (0-1.0); Monocytes % (A) 9 %; Neutrophils # (A) 4.8 k/uL (1.3-7.7); Neutrophils % (A) 54 %; Platelet Count 271 k/uL (150-450); RBC 4.64 m/uL (3.80-5.40); RDW 14.8 % (11.5-15.5); WBC 8.9 k/uL (3.8-10.6)
[2017-12-20 08:19] VITALS: BP 101/59; TEMP 97.1
[2017-12-20 08:21] LABS: Prothrombin Time 18.1 sec (9.0-12.0)
[2017-12-20 08:37] LABS: Calcium 8.1 mg/dL (8.4-10.2); Potassium 3.4 mmol/L (3.5-5.1)
[2017-12-20] MEDS ORDERED: POTASSIUM CHLORIDE ER 20 MEQ TAB.ER PO SCH (09:00)
[2017-12-20 10:47] VITALS: PULSE 76
[2017-12-20] MEDS: diphenhydrAMINE 50 MG/ML 1 ML VIAL IVP SCH (11:14)
[2017-12-20] MEDS: VANCOMYCIN 1,250 MG in SODIUM CHLORIDE 0.9% 250 ML IVPB SCH (11:14)
--- NOTE | 2017-12-20 16:24 | P.DS ---
Providers Date of admission: 12/15/17 20:00 Expected date of discharge: 12/20/17 Attending physician: Ulysses Truong Consults: 12/15/17 20:00 Consult Physician Stat Consulting Provider: Kobi Lott Consult Reason/Comments: PICC line infection, history of MRSA lung infection Do you want consulting provider notified?: Yes Consult Physician Stat Consulting Provider: Thong Keane Consult Reason/Comments: Infected PICC line, possible phlegmon Do you want consulting provider notified?: Yes 12/16/17 00:34 Consult Physician Routine Consulting Provider: Margie Ulloa Consult Reason/Comments: picc line infection Do you want consulting provider notified?: Yes Primary care physician: Liz Koch [facility] Hospital Course: Final Diagnoses: -Left-sided infected PICC line with possible sepsis, present on admission -Severe hypokalemia, improving with supplements -COPD, stable -Recent MRSA bronchitis -Recent MRSA, enterococcus faecalis and Lou from bronchial culture -Fibromyalgia -Chronic pain syndrome -Stage II pressure ulcer gluteal region -Chronic interstitial lung disease possibly secondary to sarcoidosis -Chronic hypoxic respiratory failure -Coumadin monitoring -Anxiety, bipolar Hospital course:This is a 47-year-old female known left-sided infected PICC line , status post removal with history of multiple medical issues including recent MRSA, enterococcus faecalis and Lou from the bronchial culture. Evaluated by both vascular surgery and infectious disease, recommendations noted. Maintained on IV antibiotics of vancomycin as per infectious disease, cultures currently pending. Complains of pain/tenderness at the affected site, radiating to axilla. Denies chest pain, palpitations or increasing shortness of breath. INR 2.1. Potassium 3.3. 12/18/17 complains of fatigue. Afebrile, catheter tip culture reports no growth. Potassium 3.4, receiving supplements. Magnesium 2.1. Left upper extremity affected site continues to improve. Complains of tenderness. Denies chest pain, palpitations or increased urgency breath. INR 3. 12/19/2017 afebrile . Maintained on IV antibiotics as per ID. Pain controlled. Receiving potassium supplements, potassium 3.5. INR 3.1. Maintaining O2 sats in the 90s on 3 L nasal cannula. Denies chest pain, palpitations or increasing shortness of breath. 12/20/2017 both catheter tip culture and blood cultures remain negative. No further antibiotic therapy recommended as per ID. Significant clinical improvement. Cleared for discharge by all consults. Patient is being discharged home in a stable condition with guarded prognosis. EXAM: GENERAL: Alert and oriented 3, no acute distress CARDIOVASCULAR: S1, S2 muffled. No murmur RESPIRATION: Breath sounds diminished in the bases. ABDOMEN: Soft, nontender . Bowel sounds heard NERVOUS SYSTEM: No focal deficits. The impression and plan of care has been dictated as directed. : I performed a history and examination of this patient, discussed the same with the dictator. I agree with the dictator's note ,documented as a scribe. Any additional findings or plans will be noted. Time taken: 35 minutes Patient Condition at Discharge: Stable Plan - Discharge Summary New Discharge Prescriptions: Continue FLUoxetine HCL [PROzac] 20 mg PO DAILY #30 capsule Metoprolol Tartrate [Lopressor] 50 mg PO BID #60 tab lamoTRIgine [LaMICtal] 200 mg PO DAILY Ondansetron HCl [Zofran] 4 mg PO BID PRN PRN Reason: Nausea Bumetanide 4 mg PO QAM Butalb/APAP/Caff 50-325-40Mg [Fioricet 50-325-40] 1 tab PO Q4H PRN PRN Reason: Migraine Headache Mirtazapine [Remeron] 45 mg PO HS ALPRAZolam [Xanax] 0.5 mg PO TID PRN PRN Reason: Anxiety Pregabalin [Lyrica] 150 mg PO BID Bumetanide [BUMEX] 2 mg PO DAILY@1200 busPIRone HCL [Buspar] 30 mg PO BID Baclofen [Lioresal] 20 mg PO Q8H PRN PRN Reason: Muscle Pain Morphine Sulfate ER [Ms Contin] 30 mg PO Q8H PRN PRN Reason: Pain Nystatin 100,000 Unit/gm Powd [Mycostatin Powder] 1 applic TOPICAL BID Promethazine/Dextromethorphan [Promethazine-Dm Solution] 5 ml PO Q6H PRN PRN Reason: Cough Docusate [Colace] 100 mg PO BID PRN #60 cap PRN Reason: Constipation guaiFENesin [Mucinex] 1,200 mg PO Q12HR #40 tablet.er Ipratropium-Albuterol Nebulize [Duoneb 0.5 mg-3 mg/3 ml Soln] 3 ml INHALATION RT-QID #120 ampul.neb Potassium Chloride ER [K-Dur 20] 20 meq PO DAILY #30 tab.er.prt Ibuprofen [Advil] 800 mg PO Q8HR PRN PRN Reason: Pain Vancomycin 1,750 mg IVPB Q8H Sennosides-Docusate Sodium [Senokot-S] 2 tab PO BID PRN PRN Reason: Constipation Hydrocodone/Acetaminophen [Butte 10-325] 1 tab PO Q6H PRN 3 Days #12 tab PRN Reason: Pain predniSONE See Taper PO DAILY Changed Warfarin [Coumadin] 5 mg PO HS@1800 #1 tab Discharge Medication List FLUoxetine HCL [PROzac] 20 mg PO DAILY #30 capsule 08/20/15 [Rx] Metoprolol Tartrate [Lopressor] 50 mg PO BID #60 tab 08/20/15 [Rx] lamoTRIgine [LaMICtal] 200 mg PO DAILY 03/22/16 [History] Bumetanide 4 mg PO QAM 10/18/16 [History] Butalb/APAP/Caff 50-325-40Mg [Fioricet 50-325-40] 1 tab PO Q4H PRN 10/18/16 [ History] Ondansetron HCl [Zofran] 4 mg PO BID PRN 10/18/16 [History] Mirtazapine [Remeron] 45 mg PO HS 04/10/17 [History] ALPRAZolam [Xanax] 0.5 mg PO TID PRN 06/06/17 [History] Bumetanide [BUMEX] 2 mg PO DAILY@1200 09/16/17 [History] Pregabalin [Lyrica] 150 mg PO BID 09/16/17 [History] busPIRone HCL [Buspar] 30 mg PO BID 09/16/17 [History] Baclofen [Lioresal] 20 mg PO Q8H PRN 10/09/17 [History] Morphine Sulfate ER [Ms Contin] 30 mg PO Q8H PRN 11/03/17 [History] Nystatin 100,000 Unit/gm Powd [Mycostatin Powder] 1 applic TOPICAL BID 11/04/17 [History] Promethazine/Dextromethorphan [Promethazine-Dm Solution] 5 ml PO Q6H PRN [History] Docusate [Colace] 100 mg PO BID PRN #60 cap 11/10/17 [Rx] Ipratropium-Albuterol Nebulize [Duoneb 0.5 mg-3 mg/3 ml Soln] 3 ml INHALATION RT -QID #120 ampul.neb 11/10/17 [Rx] Potassium Chloride ER [K-Dur 20] 20 meq PO DAILY #30 tab.er.prt 11/10/17 [Rx] guaiFENesin [Mucinex] 1,200 mg PO Q12HR #40 tablet.er 11/10/17 [Rx] Ibuprofen [Advil] 800 mg PO Q8HR PRN 11/22/17 [History] Sennosides-Docusate Sodium [Senokot-S] 2 tab PO BID PRN 12/07/17 [History] Vancomycin 1,750 mg IVPB Q8H 12/07/17 [History] Hydrocodone/Acetaminophen [Butte 10-325] 1 tab PO Q6H PRN 3 Days #12 tab [Rx] predniSONE See Taper PO DAILY 12/12/17 [History] Warfarin [Coumadin] 5 mg PO HS@1800 #1 tab 12/20/17 [Rx] Follow up Appointment(s)/Referral(s): Liz Koch MD [Primary Care Provider] - 12/20/17 [facility], [REFERRING] - [facility] Visiting Nurse, [NON-STAFF] - Ambulatory/Diagnostic Orders: Prothrombin Time INR [LAB.AMB] Time Frame: 12/21/17, Location: None Selected Patient Instructions/Handouts: Heart Failure (DC), MRSA (Methicillin-Resistant Staphylococcus Aureus) (DC), Central Line Associated Bloodstream Infection (DC) Activity/Diet/Wound Care/Special Instructions: PT ALREADY HAS AN APPT MADE. 3lnc O2 repeat Pt/INR in am with PCP for further coumadin dosing rec Discharge Disposition: HOME WITH HOME HEALTH SERVICES
--- NOTE | 2017-12-20 23:23 | P.PN ---
Subjective Progress Note Date: 12/20/17 47-year-old female with a history of sarcoidosis and significant underlying lung disease presents to the emergency center with pain and discomfort to her left arm PICC line site. She has recently required a course of intravenous antibiotic therapy with vancomycin for MRSA pneumonia. Recent bronchoscopy was negative but she had a marked improvement and was discharged home on vancomycin therapy. The primary service had a PICC line inserted. Upon presenting to the emergency center there was pain and swelling to her left arm was directed by her home care nurse to come to the ER. PICC line was removed and there is evidence of a small phlegmon at the insertion site is noted by ultrasound without evidence of abscess. She was seen by vascular surgery and they will monitor and incise and drain as needed. Cultures are currently pending and has received antibiotic therapy with vancomycin. Complaints of pain at the site. Her pulmonary status is quite stable and improved from the last evaluation. 12/20/2017 the patient is now much improved. The ready for discharge to home. No new complaints. Objective - Vital Signs Vital signs: Vital Signs Temp 97.1 F L 12/20/17 08:05 Pulse 76 12/20/17 10:46 Resp 18 12/20/17 08:05 BP 101/59 12/20/17 08:05 Pulse Ox 95 12/20/17 08:05 Intake & Output 12/20/17 12/20/17 12/21/17 06:59 18:59 06:59 Intake Total 550 300 Balance 550 300 Weight 105.687 kg Intake: Oral 550 300 Other: Voiding Method Toilet Toilet # Voids 1 - Exam 47-year-old female who has obesity. Patient is sitting up in bed and appears to be mostly comfortable. Mild respiratory distress with talking. HEENT: Anicteric conjunctiva are pink and moist nasal mucosa grossly intact without significant lesions, there is no thrush. Neck: The neck is supple without significant lymphadenopathy or thyromegaly. Lungs: Symmetrical air entry is noted, few expiratory wheezes are scattered throughout with no true bronchial sounds no dullness or egophony Heart: Regular rate and rhythm with an audible S1-S2, no S3 no S4. There is no significant murmur click or rub, PMI was nondisplaced. Tenderness to the right lower lateral/anterior ribs. Abdomen: Obese, Positive bowel sounds soft and nontender without palpable masses or organomegaly. There was no guarding or rebound. Extremities: The upper extremities reveal evidence of the recent PICC line to be left antecubital area, patient complains of severe pain upon manipulation, there is only minimal erythema, no expressible purulence, no palpable cord either noted. No splinter hemorrhages were noted. The lower extremities have only trace pedal edema The peripheral pulses were 2+ and symmetric. Neuro: Awake alert oriented to person place and time. There are no acute new gross focal sensory motor deficits. - Labs CBC & Chem 7: 12/20/17 07:52 12/20/17 07:52 Labs: Abnormal Lab Results - Last 24 Hours (Table) 12/20/17 12/20/17 Range/Units 07:52 07:52 PT 18.1 H (9.0-12.0) sec INR 2.0 H (<1.2) Potassium 3.4 L (3.5-5.1) mmol/L Glucose 106 H (74-99) mg/dL Calcium 8.1 L (8.4-10.2) mg/dL Microbiology - Last 24 Hours (Table) 12/15/17 16:55 Blood Culture - Preliminary Blood No Growth after 120 hours Laboratory Results WBC 8.9 k/uL (3.8-10.6) 12/20/17 07:52 RBC 4.64 m/uL (3.80-5.40) 12/20/17 07:52 Hgb 13.3 gm/dL (11.4-16.0) 12/20/17 07:52 Hct 40.3 % (34.0-46.0) 12/20/17 07:52 MCV 87.0 fL (80.0-100.0) 12/20/17 07:52 MCH 28.8 pg (25.0-35.0) 12/20/17 07:52 MCHC 33.1 g/dL (31.0-37.0) 12/20/17 07:52 RDW 14.8 % (11.5-15.5) 12/20/17 07:52 Plt Count 271 k/uL (150-450) 12/20/17 07:52 Neutrophils % 54 % 12/20/17 07:52 Lymphocytes % 30 % 12/20/17 07:52 Monocytes % 9 % 12/20/17 07:52 Eosinophils % 3 % 12/20/17 07:52 Basophils % 1 % 12/20/17 07:52 Neutrophils # 4.8 k/uL (1.3-7.7) 12/20/17 07:52 Lymphocytes # 2.6 k/uL (1.0-4.8) 12/20/17 07:52 Monocytes # 0.8 k/uL (0-1.0) 12/20/17 07:52 Eosinophils # 0.3 k/uL (0-0.7) 12/20/17 07:52 Basophils # 0.1 k/uL (0-0.2) 12/20/17 07:52 Hypochromasia Slight 12/19/17 08:58 PT 18.1 sec (9.0-12.0) H 12/20/17 07:52 INR 2.0 (<1.2) H 12/20/17 07:52 Sodium 138 mmol/L (137-145) 12/20/17 07:52 Potassium 3.4 mmol/L (3.5-5.1) L 12/20/17 07:52 Chloride 104 mmol/L (98-107) 12/20/17 07:52 Carbon Dioxide 26 mmol/L (22-30) 12/20/17 07:52 Anion Gap 8 mmol/L 12/20/17 07:52 BUN 12 mg/dL (7-17) 12/20/17 07:52 Creatinine 0.94 mg/dL (0.52-1.04) 12/20/17 07:52 Est GFR (CKD-EPI)AfAm 85 (>60 ml/min/1.73 sqM) 12/20/17 07:52 Est GFR (CKD-EPI)NonAf 74 (>60 ml/min/1.73 sqM) 12/20/17 07:52 Glucose 106 mg/dL (74-99) H 12/20/17 07:52 Lactic Ac Sepsis Rflx Y 12/16/17 11:59 Plasma Lactic Acid Chuck 1.7 mmol/L (0.7-2.0) 12/17/17 16:11 Calcium 8.1 mg/dL (8.4-10.2) L 12/20/17 07:52 Magnesium 2.1 mg/dL (1.6-2.3) 12/18/17 07:50 Total Bilirubin 0.5 mg/dL (0.2-1.3) 12/15/17 16:55 AST 24 U/L (14-36) 12/15/17 16:55 ALT 44 U/L (9-52) 12/15/17 16:55 Alkaline Phosphatase 95 U/L (38-126) 12/15/17 16:55 Total Protein 6.4 g/dL (6.3-8.2) 12/15/17 16:55 Albumin 3.6 g/dL (3.5-5.0) 12/15/17 16:55 Vancomycin Trough 24.5 ug/mL 12/18/17 14:50 Microbiology 12/15/17 16:55 Blood Blood Culture - Preliminary No Growth after 120 hours 12/15/17 17:22 Picc Line Catheter Tip Culture - Final Assessment and Plan (1) History of MRSA infection of lungs Status: Acute Code(s): Z86.14 - PERSONAL HISTORY OF METHICILLIN RESIS STAPH INFECTION SNOMED Code(s): 993587380 (2) PICC line infection Narrative/Plan: 47-year-old female presents the emergency center with complaints of pain and swelling to her left arm at the site of her PICC line. This is now been removed and cultures have been obtained. Cultures are pending and negative so far. She is being treated with vancomycin therapy until there is further data. Topical therapy with mupirocin will be utilized and a K pad is requested to try to improve comfort at that site. She is not having fever and there is evidence of no acute worsening of her pulmonary status. She does ask on several occasions if a port can be placed, we discussed that tyrell have similar risk of infection is lying such as PICC lines and is not an option at this point in time if she is not needing long-term antibiotic therapy. If she continues to have significant pulmonary illness, she can work with her spring bender to determine if she needs an alternative type of IV access. Patient is aware that this provider believes that she should be evaluated at a tertiary center for her progressive lung disease. 12/20/2017 patient is now had marked improvement. The PICC line tip and blood cultures are all negative. Does not appear to have evidence of infection or PICC line site. It appears that she had some mechanical irritation and maybe some phlebitis is etiology of her symptoms. As noted if she has further pulmonary issues would do well to be evaluated at her tertiary center. She will not need antibiotic therapy at discharge. She has completed the course of treatment for her recent pulmonary infection. Status: Acute Code(s): T80.219A - UNSP INFECTION DUE TO CENTRAL VENOUS CATHETER, INIT ENCNTR SNOMED Code(s): 631879449
[2017-12-21] MEDS ORDERED: VANCOMYCIN TROUGH DUE 1 EACH MISC MISCELLANE ONE (07:00)
== END 2017-12-20 12:01 | disposition home health service (06) | DRG 314 ==
LOC: EC 16:14 → 4MS4W 20:00
PROVIDERS: ADMIT Internal Medicine; ATTEND Internal Medicine
DX: T80.211A Bloodstream infection due to central venous catheter, initial encounter (principal); A41.9 Sepsis, unspecified organism; L02.414 Cutaneous abscess of left upper limb; E87.1 Hypo-osmolality and hyponatremia; J96.11 Chronic respiratory failure with hypoxia; L03.90 Cellulitis, unspecified; E87.2 Acidosis; Z86.14 Personal history of Methicillin resistant Staphylococcus aureus infection; D86.9 Sarcoidosis, unspecified; E03.9 Hypothyroidism, unspecified; E66.01 Morbid (severe) obesity due to excess calories; Z68.37 Body mass index [BMI] 37.0-37.9, adult; E78.5 Hyperlipidemia, unspecified; E87.6 Hypokalemia; F31.9 Bipolar disorder, unspecified; F41.0 Panic disorder [episodic paroxysmal anxiety]; G89.4 Chronic pain syndrome; I11.0 Hypertensive heart disease with heart failure; I25.10 Atherosclerotic heart disease of native coronary artery without angina pectoris; I25.2 Old myocardial infarction; I50.9 Heart failure, unspecified; Z87.01 Personal history of pneumonia (recurrent); J43.9 Emphysema, unspecified; J84.10 Pulmonary fibrosis, unspecified; L89.302 Pressure ulcer of unspecified buttock, stage 2; M19.90 Unspecified osteoarthritis, unspecified site; M79.7 Fibromyalgia; Y84.8 Other medical procedures as the cause of abnormal reaction of the patient, or of later complication, without mention of misadventure at the time of the procedure; Z79.01 Long term (current) use of anticoagulants; Z82.3 Family history of stroke; Z82.49 Family history of ischemic heart disease and other diseases of the circulatory system; Z83.3 Family history of diabetes mellitus; Z86.711 Personal history of pulmonary embolism; Z86.718 Personal history of other venous thrombosis and embolism; Z87.891 Personal history of nicotine dependence; Z88.5 Allergy status to narcotic agent; Z88.8 Allergy status to other drugs, medicaments and biological substances; Z88.1 Allergy status to other antibiotic agents; Z91.041 Radiographic dye allergy status; Z83.2 Family history of diseases of the blood and blood-forming organs and certain disorders involving the immune mechanism; Z79.2 Long term (current) use of antibiotics; Z79.890 Hormone replacement therapy; Z79.52 Long term (current) use of systemic steroids; Z79.899 Other long term (current) drug therapy; G47.33 Obstructive sleep apnea (adult) (pediatric)
CPT/HCPCS: 36415; 71046; 80048; 80053; 80202; 83605; 83735; 84132; 85025; 85610; 87040; 87070; 94640; 96365; 96366; 96375; 99285

== ENCOUNTER 2018-01-20 22:14 | Observation (INO) | payer OTHER ==
[2018-01-20 22:54] LABS: Appearance,Urine Clear (Clear); Bilirubin,Urine Negative (Negative); Blood,Urine Negative (Negative); Color,Urine Light Yellow; Glucose,Urine (UA) Negative (Negative); Ketones,Urine Negative (Negative); Leukocyte Esterase,Urine Negative (Negative); Nitrite,Urine Negative (Negative); PH, Urine 6.5 (5.0-8.0); Protein,Urine Negative (Negative); Specific Gravity,Urine 1.008 (1.001-1.035); Urobilinogen,Urine <2.0 mg/dL (<2.0)
[2018-01-20] MEDS ORDERED: METOCLOPRAMIDE 5 MG/ML 2 ML VIAL IVP STA (22:57)
--- NOTE | 2018-01-20 23:05 | ED ---
General Adult HPI - General Chief complaint: Nausea/Vomiting/Diarrhea Stated complaint: Fall/Vomiting Source: patient Mode of arrival: wheelchair Limitations: no limitations - History of Present Illness Initial comments: Dictation was produced using [employer] dictation software. please excuse any grammatical, word or spelling errors. Chief Complaint: 47-year-old female multiple comorbidities clinic CHF , COPD, DVT, pulmonary embolism presents with 5 days of nausea vomiting and left arm pain. History of Present Illness: It is a female with multiple comorbidities. Patient states she is on several medications for a myriad of diseases. Patient states she's been feeling vertiginous for the last 3 or 4 days. Patient states she has a history of polycythemia vera. Denies any history of stroke. Patient states she's been feeling as though the room is spinning. She states constant and not worse with movement. Denies any hearing loss or tinnitus. Patient states she was so dizzy that she fell and struck her left upper arm. The ROS documented in this emergency department record has been reviewed and confirmed by me. Those systems with pertinent positive or negative responses have been documented in the HPI. All other systems are other negative and/or noncontributory. - Related Data Home Medications Medication Instructions Recorded Confirmed lamoTRIgine [LaMICtal] 200 mg PO DAILY 03/22/16 01/20/18 Bumetanide 4 mg PO QAM 10/18/16 01/20/18 Butalb/APAP/Caff 50-325-40Mg 1 tab PO Q4H PRN 10/18/16 01/20/18 [Fioricet 50-325-40] Ondansetron HCl [Zofran] 4 mg PO BID PRN 10/18/16 01/20/18 Mirtazapine [Remeron] 45 mg PO HS 04/10/17 01/20/18 ALPRAZolam [Xanax] 0.5 mg PO TID PRN 06/06/17 01/20/18 Bumetanide [BUMEX] 2 mg PO DAILY@1200 09/16/17 01/20/18 Pregabalin [Lyrica] 150 mg PO BID 09/16/17 01/20/18 busPIRone HCL [Buspar] 30 mg PO BID 09/16/17 01/20/18 Baclofen [Lioresal] 20 mg PO Q8H PRN 10/09/17 01/20/18 Morphine Sulfate ER [Ms Contin] 30 mg PO Q8H PRN 11/03/17 01/20/18 Nystatin 100,000 Unit/gm Powd 1 applic TOPICAL BID 11/04/17 01/20/18 [Mycostatin Powder] Promethazine/Dextromethorphan 5 ml PO Q6H PRN 11/04/17 01/20/18 [Promethazine-Dm Solution] Ibuprofen [Advil] 800 mg PO Q8HR PRN 11/22/17 01/20/18 Sennosides-Docusate Sodium 2 tab PO BID PRN 12/07/17 01/20/18 [Senokot-S] Warfarin [Coumadin] 10 mg PO HS 01/20/18 01/20/18 Previous Rx's Medication Instructions Recorded FLUoxetine HCL [PROzac] 20 mg PO DAILY #30 capsule 08/20/15 Metoprolol Tartrate [Lopressor] 50 mg PO BID #60 tab 08/20/15 Docusate [Colace] 100 mg PO BID PRN #60 cap 11/10/17 Ipratropium-Albuterol Nebulize 3 ml INHALATION RT-QID #120 11/10/17 [Duoneb 0.5 mg-3 mg/3 ml Soln] ampul.neb Potassium Chloride ER [K-Dur 20] 20 meq PO DAILY #30 tab.er.prt 11/10/17 Hydrocodone/Acetaminophen [[place] 1 tab PO Q6H PRN 3 Days #12 tab 12/09/17 10-325] Allergies Allergy/AdvReac Type Severity Reaction Status Date / Time ketorolac tromethamine Allergy Severe Anaphylaxis Verified 01/20/18 22:57 [From Toradol] Opioids - Morphine Analogues Allergy Mild Itching Verified 01/20/18 22:57 Iodinated Contrast- Oral and Allergy Unknown Verified 01/20/18 22:57 IV Dye rivaroxaban [From Xarelto] Allergy Rash/Hives Verified 01/20/18 22:57 sumatriptan [From Imitrex] Allergy Anaphylaxis Verified 01/20/18 22:57 sumatriptan succinate Allergy Anaphylaxis Verified 01/20/18 22:57 [From Imitrex] morphine AdvReac Severe Itching Verified 01/20/18 22:57 iodine AdvReac Intermediate Itching Verified 01/20/18 22:57 tramadol AdvReac Anaphylaxis Verified 01/20/18 22:57 vancomycin AdvReac Itching Verified 01/20/18 22:57 Rich wipes AdvReac Severe Rash/Hives Uncoded 12/15/17 16:22 Review of Systems ROS Statement: Those systems with pertinent positive or pertinent negative responses have been documented in the HPI. ROS Other: All systems not noted in ROS Statement are negative. Past Medical History Past Medical History: Blood Disorder, Heart Failure, COPD, Deep Vein Thrombosis (DVT), Hyperlipidemia, Hypertension, Myocardial Infarction (HI), Musculoskeletal Disorder, Pneumonia, Pulmonary Embolus (PE), Thyroid Disorder Additional Past Medical History / Comment(s): PE 2012; Sarcoidosis diagnosed in 2015 following a bronchoscopy and lung biopsy done at [facility] and she was started on predniosone and she took the therapy for almost 1 year, polycythemia, overweight, bilateral PE (2011, 2015), bilateral DVTs, fibromyalgia, bipolar disorder, degenerative disk disorder, coronary artery disease along with previous history of a HI and ventilator dependent respiratory failure with MRSA pneumonia for which the patient was hospitalized [facility] [place] in 2012. Viral meningitis in October 2014. Pulmonary fibrosis, home 02 3l n/c Last Myocardial Infarction Date:: February 15, 2013 History of Any Multi-Drug Resistant Organisms: MRSA Date of last positivie culture/infection: 11/09/17 MDRO Source:: PLEURAL FLUID Past Surgical History: Section, Cholecystectomy, Heart Catheterization , Hernia Repair, Orthopedic Surgery Additional Past Surgical History / Comment(s): Lt ankle surgery, several bronchosopy-most recently 11/09/17 Past Anesthesia/Blood Transfusion Reactions: Motion Sickness, Postoperative Nausea & Vomiting (PONV) Additional Past Anesthesia/Blood Transfusion Reaction / Comment(s): previously charted -pt stated that last April she coded due to anesthetic Past Psychological History: Anxiety, Bipolar, Depression, Panic Disorder Smoking Status: Never smoker Past Alcohol Use History: None Reported Past Drug Use History: None Reported - Past Family History Father Family Medical History: Blood Disorder, Congestive Heart Failure (CHF), CVA/TIA , Deep Vein Thrombosis (DVT), Myocardial Infarction (HI) Additional Family Medical History / Comment(s): polycythemia Mother Family Medical History: Congestive Heart Failure (CHF), Diabetes Mellitus, Deep Vein Thrombosis (DVT), Myocardial Infarction (HI), Musculoskeletal Disorder Additional Family Medical History / Comment(s): DDD Sister(s) Family Medical History: No Reported History Brother(s) Family Medical History: No Reported History Son(s) Family Medical History: No Reported History Daughter(s) Family Medical History: No Reported History General Exam - General Exam Comments Initial Comments: PHYSICAL EXAM: General Impression: Alert and oriented x3, not in acute distress HEENT: Normocephalic atraumatic, extra-ocular movements intact, pupils equal and reactive to light bilaterally, mucous membranes moist. Cardiovascular: Heart regular rate and rhythm, S1&S2 audible, no murmurs, rubs or gallops Chest: Lungs clear to auscultation bilaterally, no rhonchi, no wheeze, no rales Abdomen: Bowel sounds present, abdomen soft, non-tender, non-distended, no organomegaly Musculoskeletal: Pulses present and equal in all extremities, no peripheral edema Motor: Power 5/5 bilaterally, no focal deficits noted Neurological: CN II-XII grossly intact, mild ataxia with anzkma-gw-toey of the left upper extremity. Patient has direction changing nystagmus. No positive test of skew, had impulse test is negative. Skin: Soft ecchymoses to the left posterior humerus Psych: Normal affect and mood Limitations: no limitations Course Vital Signs 01/20/18 22:17 Temperature 98.2 F Pulse Rate 106 H Respiratory 20 Rate Blood Pressure 115/69 O2 Sat by Pulse 97 Oximetry Medical Decision Making - Medical Decision Making ED course: 47-year-old female presents with multiple complaints. 1 is vertiginous symptoms that have been constant and not movement provoked for the last for 5 days. Second complaint is left upper extremity pain after falling down. Vital signs upon arrival shows heart rate of 106, rest of vital signs within normal limits. EKG shows prolonged QT.Laboratory evaluation obtained. Leukocytosis of 13.8. Rest of CBC unremarkable INR is 1.3. This is subtherapeutic. Potassium is 3.1. There is non-gap acidosis likely from vomiting. Magnesium is 1.8. Urinalysis negative. Patient's were reviewed as to what may cause prolonged QT. Patient is on fluoxetine. That she has been on this for several months without any complications. Given the patient had direction changing nystagmus there was some concern of vertebrobasilar insufficiency. CT angiogram head and neck shows no acute processes. Chest x- ray humerus x-ray shows no acute processes. She denies any overt overdoses. Patient denies any methadone use. Given prolonged Q-T patient be admitted to the hospital. EKG interpretation: Ventricular rate 94, sinus tachycardia,. Interval 144, Q is 70, QTc 555. No NM prolongation, , no ST or T-wave changes noted. His EKG suggests prolonged QT. - Lab Data Result diagrams: 01/20/18 23:32 01/20/18 23:32 Lab Results 01/20/18 01/20/18 01/20/18 Range/Units 22:27 22:27 23:32 WBC (3.8-10.6) k/uL RBC (3.80-5.40) m/uL Hgb (11.4-16.0) gm/dL Hct (34.0-46.0) % MCV (80.0-100.0) fL MCH (25.0-35.0) pg MCHC (31.0-37.0) g/dL RDW (11.5-15.5) % Plt Count (150-450) k/uL Neutrophils % % Lymphocytes % % Monocytes % % Eosinophils % % Basophils % % Neutrophils # (1.3-7.7) k/uL Lymphocytes # (1.0-4.8) k/uL Monocytes # (0-1.0) k/uL Eosinophils # (0-0.7) k/uL Basophils # (0-0.2) k/uL PT (9.0-12.0) sec INR (<1.2) Sodium 139 (137-145) mmol/L Potassium 3.1 L (3.5-5.1) mmol/L Chloride 111 H (98-107) mmol/L Carbon Dioxide 20 L (22-30) mmol/L Anion Gap 8 mmol/L BUN 8 (7-17) mg/dL Creatinine 0.73 (0.52-1.04) mg/dL Est GFR (CKD-EPI)AfAm >90 (>60 ml/min/1.73 sqM) Est GFR (CKD-EPI)NonAf >90 (>60 ml/min/1.73 sqM) Glucose 94 (74-99) mg/dL Calcium 9.0 (8.4-10.2) mg/dL Magnesium 1.8 (1.6-2.3) mg/dL Urine Color Light Yellow Urine Appearance Clear (Clear) Urine pH 6.5 (5.0-8.0) Ur Specific [place] 1.008 (1.001-1.035) Urine Protein Negative (Negative) Urine Glucose (UA) Negative (Negative) Urine Ketones Negative (Negative) Urine Blood Negative (Negative) Urine Nitrite Negative (Negative) Urine Bilirubin Negative (Negative) Urine Urobilinogen <2.0 (<2.0) mg/dL Ur Leukocyte Esterase Negative (Negative) Urine HCG, Qual Not Detected (Not Detectd) 01/20/18 01/20/18 Range/Units 23:32 23:32 WBC 13.8 H (3.8-10.6) k/uL RBC 5.01 (3.80-5.40) m/uL Hgb 14.2 (11.4-16.0) gm/dL Hct 41.9 (34.0-46.0) % MCV 83.6 (80.0-100.0) fL MCH 28.4 (25.0-35.0) pg MCHC 34.0 (31.0-37.0) g/dL RDW 15.6 H (11.5-15.5) % Plt Count 344 (150-450) k/uL Neutrophils % 56 % Lymphocytes % 33 % Monocytes % 5 % Eosinophils % 3 % Basophils % 1 % Neutrophils # 7.8 H (1.3-7.7) k/uL Lymphocytes # 4.5 (1.0-4.8) k/uL Monocytes # 0.7 (0-1.0) k/uL Eosinophils # 0.4 (0-0.7) k/uL Basophils # 0.1 (0-0.2) k/uL PT 12.2 H (9.0-12.0) sec INR 1.3 H (<1.2) Sodium (137-145) mmol/L Potassium (3.5-5.1) mmol/L Chloride (98-107) mmol/L Carbon Dioxide (22-30) mmol/L Anion Gap mmol/L BUN (7-17) mg/dL Creatinine (0.52-1.04) mg/dL Est GFR (CKD-EPI)AfAm (>60 ml/min/1.73 sqM) Est GFR (CKD-EPI)NonAf (>60 ml/min/1.73 sqM) Glucose (74-99) mg/dL Calcium (8.4-10.2) mg/dL Magnesium (1.6-2.3) mg/dL Urine Color Urine Appearance (Clear) Urine pH (5.0-8.0) Ur Specific [place] (1.001-1.035) Urine Protein (Negative) Urine Glucose (UA) (Negative) Urine Ketones (Negative) Urine Blood (Negative) Urine Nitrite (Negative) Urine Bilirubin (Negative) Urine Urobilinogen (<2.0) mg/dL Ur Leukocyte Esterase (Negative) Urine HCG, Qual (Not Detectd) Disposition Clinical Impression: Prolonged QT interval Disposition: ADMITTED IP TO THIS [facility] Condition: Fair Referrals: Liz Koch MD [Primary Care Provider] - 1-2 days Decision Time: 00:58
[2018-01-20 23:48] LABS: Basophils # (A) 0.1 k/uL (0-0.2); Basophils % (A) 1 %; Eosinophils # (A) 0.4 k/uL (0-0.7); Eosinophils % (A) 3 %; HCT 41.9 % (34.0-46.0); HGB 14.2 gm/dL (11.4-16.0); Lymphocytes # (A) 4.5 k/uL (1.0-4.8); Lymphocytes % (A) 33 %; MCH 28.4 pg (25.0-35.0); MCV 83.6 fL (80.0-100.0); Mean Platelet Volume 7.1; Monocytes # (A) 0.7 k/uL (0-1.0); Monocytes % (A) 5 %; Neutrophils # (A) 7.8 k/uL (1.3-7.7); Neutrophils % (A) 56 %; Platelet Count 344 k/uL (150-450); RBC 5.01 m/uL (3.80-5.40); RDW 15.6 % (11.5-15.5); WBC 13.8 k/uL (3.8-10.6)
[2018-01-20 23:53] LABS: INR 1.3 (<1.2); Prothrombin Time 12.2 sec (9.0-12.0)
[2018-01-20] MEDS ORDERED: SODIUM CHLORIDE 0.9% 1,000 ML IV STA (23:58)
[2018-01-20] MEDS ORDERED: methylPREDNISolone SOD SUCCI 125 MG/2 ML VIAL IV STA (23:58)
[2018-01-21 00:07] LABS: Anion Gap 8 mmol/L; Blood Urea Nitrogen 8 mg/dL (7-17); Carbon Dioxide 20 mmol/L (22-30); Chloride 111 mmol/L (98-107); Glucose 94 mg/dL (74-99); Sodium 139 mmol/L (137-145)
[2018-01-21] MEDS ORDERED: MECLIZINE 12.5 MG TAB PO STA (00:09)
[2018-01-21 00:10] LABS: Magnesium 1.8 mg/dL (1.6-2.3); Potassium 3.1 mmol/L (3.5-5.1)
[2018-01-21] MEDS ORDERED: POTASSIUM CHLORIDE ER 20 MEQ TAB.ER PO STA (00:16)
--- NOTE | 2018-01-21 00:38 | CT ---
EXAMINATION TYPE: CT angio head neck DATE OF EXAM: 01/21/2018 HISTORY: Nausea/vomitting COMPARISON: None CT DLP: 768.7 mGycm. Automated Exposure Control for Dose Reduction was Utilized. TECHNIQUE: CTA scan of the neck is performed with IV Contrast, patient injected with 65 mL of Isovue 370, axial images are obtained, coronal and sagittal reformatted images are reviewed. Three-D recons tructed images are created on an independent workstation and reviewed. FINDINGS: There is normal branching pattern of the great vessels on the aortic arch. Thoracic aorta shows no ev idence of aneurysm or dissection at the arch. Recent which are fairly symmetric. The basilar artery fills from both sides. There is arterial flow in the common internal and external carotid arteries bilaterally. There is no evidence of carotid or vertebral artery aneurysm or dissection. The carotid arteries appear fairly no rmal. I see no significant plaque formation. There is arterial flow in the anterior middle and posterior cerebral arteries. There is arterial flow in the vertebrobasilar artery system. I see no evidence of intracranial aneurysm or neovascularity. There is no mass effect. There is no evidence of stenosis. There is normal contrast opacification of the venous sinuses. IMPRESSION: Negative CT angiogram of the neck. Negative CT angiogram of the brain.
--- NOTE | 2018-01-21 00:46 | XR ---
EXAMINATION TYPE: XR humerus LT DATE OF EXAM: 01/21/2018 COMPARISON: NONE HISTORY: Fall. Pain TECHNIQUE: 3 views FINDINGS: I see no fracture nor dislocation. Elbow joint and shoulder joint appear intact. Soft tissu es are unremarkable. IMPRESSION: Negative left humerus exam.
--- NOTE | 2018-01-21 00:47 | XR ---
EXAMINATION TYPE: XR chest 1V DATE OF EXAM: 01/21/2018 COMPARISON: 12/15/2017 HISTORY: Weakness TECHNIQUE: Single frontal view of the chest is obtained. FINDINGS: There is no heart failure nor confluent pneumonic infiltrate. There is slight blunting of left costophrenic angle. There is no evidence of pneumothorax. Bony thorax appears intact. IMPRESSION: Slight blunting of left costophrenic angle probably relates to pleural scarring. Normal heart. No change.
[2018-01-21] MEDS ORDERED: POTASSIUM CHLORIDE 20 MEQ in WATER FOR INJECTION 1 100ML.BAG IVPB STA (00:53)
[2018-01-21] MEDS ORDERED: NALOXONE 0.4 MG/ML 1 ML VIAL IV PRN (00:58)
[2018-01-21] MEDS ORDERED: diphenhydrAMINE 50 MG/ML 1 ML VIAL IVP STA (01:28)
[2018-01-21] MEDS: MAGNESIUM SULFATE-D5W PMX 1 GM in DEXTROSE/WATER 1 100ML.BAG IVPB SCH ×2 (01:31→03:31)
[2018-01-21 04:03] VITALS: BMI 40.3
[2018-01-21] MEDS ORDERED: METOCLOPRAMIDE 5 MG/ML 2 ML VIAL IVP PRN (06:06)
[2018-01-21] MEDS: HYDROcodone/APAP 10-325MG 1 EACH TAB PO PRN ×2 (06:21→11:03)
[2018-01-21 07:27] LABS: Anion Gap 11 mmol/L; Blood Urea Nitrogen 7 mg/dL (7-17); Calcium 8.7 mg/dL (8.4-10.2); Carbon Dioxide 16 mmol/L (22-30); Chloride 111 mmol/L (98-107); Glucose 162 mg/dL (74-99); Magnesium 2.5 mg/dL (1.6-2.3); Potassium 3.5 mmol/L (3.5-5.1); Sodium 138 mmol/L (137-145)
[2018-01-21 08:39] VITALS: RESP 16; TEMP 98
[2018-01-21] MEDS ORDERED: Potassium Replacement Protocol 1 EACH MISC MISCELLANE PRN (09:26)
--- NOTE | 2018-01-21 09:54 | P.CRDCN ---
History of Present Illness Consult date: 01/21/18 Chief complaint: Palpitation History of present illness: This is a pleasant 47-year-old female patient with a past medical history significant for hypertension as well as history of DVT/PE currently on oral anticoagulation was Coumadin presented to the hospital not feeling well. The patient was in her usual state of health until yesterday and the day before when she started experiencing symptoms of palpitations in the chest. No symptoms of chest pain or chest discomfort and no shortness of breath. Beside that she has been feeling dizzy for the last several days. She did not lose her consciousness. No fever or chills. No cough. Because of that she decided to come to the emergency room. The patient underwent a CTA of the neck and the brain and both came in to be unremarkable. The chest x-ray did not show any acute abnormalities. The EKG revealed sinus rhythm was prolonged QT with corrected QT interval of 550 ms. I did review the patient's previous medical records including previous EKG from 2017 and that revealed sinus rhythm with a normal QT interval and at that point it was 350 ms. Reviewing the patient's medications revealed that she is on Prozac at home. She stated that she has been on the Prozac for several years. I would agree about continue holding the Prozac at this point. She is on metoprolol which I will continue. We will repeat the EKG later on today as well as tomorrow. The patient did have an echocardiogram in March 2017 and that revealed normal LV function. Past Medical History Past Medical History: Blood Disorder, Heart Failure, COPD, Deep Vein Thrombosis (DVT), Hyperlipidemia, Hypertension, Myocardial Infarction (NV), Musculoskeletal Disorder, Pneumonia, Pulmonary Embolus (PE), Thyroid Disorder Additional Past Medical History / Comment(s): PE 2012; Sarcoidosis diagnosed in 2015 following a bronchoscopy and lung biopsy done at [facility] and she was started on predniosone and she took the therapy for almost 1 year, polycythemia, overweight, bilateral PE (2011, 2015), bilateral DVTs, fibromyalgia, bipolar disorder, degenerative disk disorder, coronary artery disease along with previous history of a NV and ventilator dependent respiratory failure with MRSA pneumonia for which the patient was hospitalized [facility] in 2012. Viral meningitis in October 2014. Pulmonary fibrosis, home 02 3l n/c Last Myocardial Infarction Date:: February 15, 2013 History of Any Multi-Drug Resistant Organisms: MRSA Date of last positivie culture/infection: 11/09/17 MDRO Source:: PLEURAL FLUID Past Surgical History: Section, Cholecystectomy, Heart Catheterization , Hernia Repair, Orthopedic Surgery Additional Past Surgical History / Comment(s): Lt ankle surgery, several bronchosopy-most recently 11/09/17 Past Anesthesia/Blood Transfusion Reactions: Motion Sickness, Postoperative Nausea & Vomiting (PONV) Additional Past Anesthesia/Blood Transfusion Reaction / Comment(s): previously charted -pt stated that last April she coded due to anesthetic Past Psychological History: Anxiety, Bipolar, Depression, Panic Disorder Additional Psychological History / Comment(s): and lives in the family home with her . No recent travel. No experience Smoking Status: Never smoker Past Alcohol Use History: None Reported Additional Past Alcohol Use History / Comment(s): patient lives with her significant other. last admit 11-03-17 pt was smoking 1ppd- pt's celia stated she continues to smoked but he's not suere how much and it depends on how stressed she gets". denies alcohol use or recreational drug use. Patient is currently not working. No service. No recent travel. No animal exposures. She did leave the hospital AMA in March 2017 and October 2017. Difficulties with ongoing medical noncompliance. Patient quit smoking 3 weeks ago. There is a dog in the home. Past Drug Use History: None Reported - Past Family History Father Family Medical History: Blood Disorder, Congestive Heart Failure (CHF), CVA/TIA , Deep Vein Thrombosis (DVT), Myocardial Infarction (NV) Additional Family Medical History / Comment(s): polycythemia Mother Family Medical History: Congestive Heart Failure (CHF), Diabetes Mellitus, Deep Vein Thrombosis (DVT), Myocardial Infarction (NV), Musculoskeletal Disorder Additional Family Medical History / Comment(s): DDD Sister(s) Family Medical History: No Reported History Brother(s) Family Medical History: No Reported History Son(s) Family Medical History: No Reported History Daughter(s) Family Medical History: No Reported History Medications and Allergies Home Medications Medication Instructions Recorded Confirmed Type FLUoxetine HCL [PROzac] 20 mg PO DAILY #30 capsule 08/20/15 01/20/18 Rx Metoprolol Tartrate [Lopressor] 50 mg PO BID #60 tab 08/20/15 01/20/18 Rx lamoTRIgine [LaMICtal] 200 mg PO DAILY 03/22/16 01/20/18 History Bumetanide 4 mg PO QAM 10/18/16 01/20/18 History Butalb/APAP/Caff 50-325-40Mg 1 tab PO Q4H PRN 10/18/16 01/20/18 History [Fioricet 50-325-40] Ondansetron HCl [Zofran] 4 mg PO BID PRN 10/18/16 01/20/18 History Mirtazapine [Remeron] 45 mg PO HS 04/10/17 01/20/18 History ALPRAZolam [Xanax] 0.5 mg PO TID PRN 06/06/17 01/20/18 History Bumetanide [BUMEX] 2 mg PO DAILY@1200 09/16/17 01/20/18 History Pregabalin [Lyrica] 150 mg PO BID 09/16/17 01/20/18 History busPIRone HCL [Buspar] 30 mg PO BID 09/16/17 01/20/18 History Baclofen [Lioresal] 20 mg PO Q8H PRN 10/09/17 01/20/18 History Morphine Sulfate ER [Ms Contin] 30 mg PO Q8H PRN 11/03/17 01/20/18 History Nystatin 100,000 Unit/gm Powd 1 applic TOPICAL BID 11/04/17 01/20/18 History [Mycostatin Powder] Promethazine/Dextromethorphan 5 ml PO Q6H PRN 11/04/17 01/20/18 History [Promethazine-Dm Solution] Docusate [Colace] 100 mg PO BID PRN #60 cap 11/10/17 01/20/18 Rx Ipratropium-Albuterol Nebulize 3 ml INHALATION RT-QID #120 11/10/17 01/20/18 Rx [Duoneb 0.5 mg-3 mg/3 ml Soln] ampul.neb Potassium Chloride ER [K-Dur 20] 20 meq PO DAILY #30 tab.er.prt 11/10/17 Rx Ibuprofen [Advil] 800 mg PO Q8HR PRN 11/22/17 01/20/18 History Sennosides-Docusate Sodium 2 tab PO BID PRN 12/07/17 01/20/18 History [Senokot-S] Hydrocodone/Acetaminophen [[place] 1 tab PO Q6H PRN 3 Days #12 tab 12/09/17 Rx 10-325] Warfarin [Coumadin] 10 mg PO HS 01/20/18 01/20/18 History Allergies Allergy/AdvReac Type Severity Reaction Status Date / Time ketorolac tromethamine Allergy Severe Anaphylaxis Verified 01/20/18 22:57 [From Toradol] Opioids - Morphine Analogues Allergy Mild Itching Verified 01/20/18 22:57 Iodinated Contrast- Oral and Allergy Unknown Verified 01/20/18 22:57 IV Dye rivaroxaban [From Xarelto] Allergy Rash/Hives Verified 01/20/18 22:57 sumatriptan [From Imitrex] Allergy Anaphylaxis Verified 01/20/18 22:57 sumatriptan succinate Allergy Anaphylaxis Verified 01/20/18 22:57 [From Imitrex] morphine AdvReac Severe Itching Verified 01/20/18 22:57 iodine AdvReac Intermediate Itching Verified 01/20/18 22:57 tramadol AdvReac Anaphylaxis Verified 01/20/18 22:57 vancomycin AdvReac Itching Verified 01/20/18 22:57 Rich wipes AdvReac Severe Rash/Hives Uncoded 12/15/17 16:22 Physical Exam Vitals: Vital Signs Temp Pulse Pulse Resp BP BP Pulse Ox 01/21/18 08:20 98 F 93 16 115/58 96 01/21/18 04:00 93 18 01/21/18 03:55 98.2 F 93 18 120/78 98 01/21/18 03:31 98.0 F 92 20 137/82 96 01/21/18 00:19 97.7 F 97 18 138/78 97 01/20/18 22:17 98.2 F 106 H 20 115/69 97 Intake and Output 01/20/18 01/21/18 01/21/18 22:59 06:59 14:59 Intake Total 80 360 Balance 80 360 Intake: IV 80 0.9 80 Oral 360 Other: Voiding Method Toilet Weight 113.398 kg 110 kg - Constitutional General appearance: no acute distress - Respiratory Respiratory: bilateral: CTA - Cardiovascular Rhythm: regular Heart sounds: normal: S1, S2 Results 01/20/18 23:32 01/21/18 06:24 Coagulation 01/20/18 Range/Units 23:32 PT 12.2 H (9.0-12.0) sec CBC 01/20/18 Range/Units 23:32 WBC 13.8 H (3.8-10.6) k/uL RBC 5.01 (3.80-5.40) m/uL Hgb 14.2 (11.4-16.0) gm/dL Hct 41.9 (34.0-46.0) % Plt Count 344 (150-450) k/uL Comprehensive Metabolic Panel 01/20/18 01/21/18 Range/Units 23:32 06:24 Sodium 139 138 (137-145) mmol/L Potassium 3.1 L 3.5 (3.5-5.1) mmol/L Chloride 111 H 111 H (98-107) mmol/L Carbon Dioxide 20 L 16 L (22-30) mmol/L BUN 8 7 (7-17) mg/dL Creatinine 0.73 0.69 (0.52-1.04) mg/dL Glucose 94 162 H (74-99) mg/dL Calcium 9.0 8.7 (8.4-10.2) mg/dL Current Medications Generic Name Dose Route Start Last Admin Trade Name Freq PRN Reason Stop Dose Admin Hydrocodone Bitart/Acetaminophen 1 each 01/21/18 06:05 01/21/18 06:21 [place] 10 PO 1 each Q6H PRN Administration Pain Metoclopramide HCl 10 mg 01/21/18 06:06 Reglan IVP Q6HR PRN GI Upset Miscellaneous Information 1 each 01/21/18 09:26 Potassium Per Protocol MISCELLANE DAILY PRN Per Protocol Protocol Naloxone HCl 0.2 mg 01/21/18 00:58 Narcan IV Q2M PRN Opioid Reversal Potassium Chloride 20 meq 01/21/18 10:00 K-Dur 20 PO 01/21/18 11:01 Q1HR AGNIESZKA Protocol Intake and Output 01/20/18 01/21/18 01/21/18 22:59 06:59 14:59 Intake Total 80 360 Balance 80 360 Intake: IV 80 0.9 80 Oral 360 Other: Voiding Method Toilet Weight 113.398 kg 110 kg 01/20/18 23:32 01/21/18 06:24 Assessment and Plan Assessment: Assessment #1 intermittent episodes of palpitation associated with dizziness and lightheadedness #2 abnormal EKG showing prolonged QT interval was corrected QT interval of 550 ms #3 depression currently the patient is on Prozac #4 hypertension Plan #1 continue holding the Prozac and probably fighting and alternative for long- term down the line #2 repeat the EKG later on today as well as tomorrow #3 continue metoprolol #4 electrolytes monitoring including potassium and magnesium #5 follow-up with the patient Thank you for allowing us participate in her care and we will continue following up with her
[2018-01-21] MEDS: POTASSIUM CHLORIDE ER 20 MEQ TAB.ER PO SCH ×2 (09:56→11:03)
[2018-01-21] MEDS ORDERED: METOPROLOL TARTRATE 50 MG TAB PO SCH (10:00)
[2018-01-21 11:09] VITALS: BP 132/74; PULSE 95
--- NOTE | 2018-01-21 13:52 | P.HPIM ---
History of Present Illness H&P Date: 01/21/18 Chief Complaint: Palpitations This is a pleasant 47-year-old female patient with a past medical history significant for hypertension as well as history of DVT/PE currently on oral anticoagulation was Coumadin presented to the hospital not feeling well. The patient was in her usual state of health until yesterday and the day before when she started experiencing symptoms of palpitations in the chest. No symptoms of chest pain or chest discomfort and no shortness of breath. Beside that she has been feeling dizzy for the last several days. She did not lose her consciousness. No fever or chills. No cough. Because of that she decided to come to the emergency room. The patient underwent a CTA of the neck and the brain and both came in to be unremarkable. The chest x-ray did not show any acute abnormalities. The EKG revealed sinus rhythm was prolonged QT with corrected QT interval of 550 ms. I did review the patient's previous medical records including previous EKG from 2017 and that revealed sinus rhythm with a normal QT interval and at that point it was 350 ms. Reviewing the patient's medications revealed that she is on Prozac at home. She stated that she has been on the Prozac for several years. I would agree about continue holding the Prozac at this point. She is on metoprolol which I will continue. We will repeat the EKG later on today as well as tomorrow. The patient did have an echocardiogram in March 2017 and that revealed normal LV function. Review of Systems Constitutional: Denies chills, Denies fever, Denies sweats Eyes: denies blurred vision Ears, nose, mouth and throat: Denies dysphagia, Denies epistaxis Cardiovascular: Reports dyspnea on exertion, Reports lightheadedness, Reports rapid heart beat, Denies chest pain Gastrointestinal: Denies abdominal pain, Denies nausea, Denies vomiting Musculoskeletal: Denies frequent falls, Denies low back pain Integumentary: Denies color changes, Denies rash Neurological: Denies ataxia, Denies gait dysfunction, Denies loss of vision, Denies paresthesias Endocrine: Denies cold intolerance, Denies excessive thirst Allergic/Immunologic: Denies allergic rhinitis, Denies seasonal allergies Past Medical History Past Medical History: Blood Disorder, Heart Failure, COPD, Deep Vein Thrombosis (DVT), Hyperlipidemia, Hypertension, Myocardial Infarction (NH), Musculoskeletal Disorder, Pneumonia, Pulmonary Embolus (PE), Thyroid Disorder Additional Past Medical History / Comment(s): PE 2012; Sarcoidosis diagnosed in 2015 following a bronchoscopy and lung biopsy done at [facility] and she was started on predniosone and she took the therapy for almost 1 year, polycythemia, overweight, bilateral PE (2011, 2015), bilateral DVTs, fibromyalgia, bipolar disorder, degenerative disk disorder, coronary artery disease along with previous history of a NH and ventilator dependent respiratory failure with MRSA pneumonia for which the patient was hospitalized [facility] in 2012. Viral meningitis in October 2014. Pulmonary fibrosis, home 02 3l n/c Last Myocardial Infarction Date:: February 15, 2013 History of Any Multi-Drug Resistant Organisms: MRSA Date of last positivie culture/infection: 11/09/17 MDRO Source:: PLEURAL FLUID Past Surgical History: Section, Cholecystectomy, Heart Catheterization , Hernia Repair, Orthopedic Surgery Additional Past Surgical History / Comment(s): Lt ankle surgery, several bronchosopy-most recently 11/09/17 Past Anesthesia/Blood Transfusion Reactions: Motion Sickness, Postoperative Nausea & Vomiting (PONV) Additional Past Anesthesia/Blood Transfusion Reaction / Comment(s): previously charted -pt stated that last April she coded due to anesthetic Past Psychological History: Anxiety, Bipolar, Depression, Panic Disorder Additional Psychological History / Comment(s): and lives in the family home with her . No recent travel. No experience Smoking Status: Never smoker Past Alcohol Use History: None Reported Additional Past Alcohol Use History / Comment(s): patient lives with her significant other. last admit 11-03-17 pt was smoking 1ppd- pt's faincee stated she continues to smoked but he's not suere how much and it depends on how stressed she gets". denies alcohol use or recreational drug use. Patient is currently not working. No service. No recent travel. No animal exposures. She did leave the hospital AMA in March 2017 and October 2017. Difficulties with ongoing medical noncompliance. Patient quit smoking 3 weeks ago. There is a dog in the home. Past Drug Use History: None Reported - Past Family History Father Family Medical History: Blood Disorder, Congestive Heart Failure (CHF), CVA/TIA , Deep Vein Thrombosis (DVT), Myocardial Infarction (NH) Additional Family Medical History / Comment(s): polycythemia Mother Family Medical History: Congestive Heart Failure (CHF), Diabetes Mellitus, Deep Vein Thrombosis (DVT), Myocardial Infarction (NH), Musculoskeletal Disorder Additional Family Medical History / Comment(s): DDD Sister(s) Family Medical History: No Reported History Brother(s) Family Medical History: No Reported History Son(s) Family Medical History: No Reported History Daughter(s) Family Medical History: No Reported History Medications and Allergies Home Medications Medication Instructions Recorded Confirmed Type FLUoxetine HCL [PROzac] 20 mg PO DAILY #30 capsule 08/20/15 01/20/18 Rx Metoprolol Tartrate [Lopressor] 50 mg PO BID #60 tab 08/20/15 01/20/18 Rx lamoTRIgine [LaMICtal] 200 mg PO DAILY 03/22/16 01/20/18 History Bumetanide 4 mg PO QAM 10/18/16 01/20/18 History Butalb/APAP/Caff 50-325-40Mg 1 tab PO Q4H PRN 10/18/16 01/20/18 History [Fioricet 50-325-40] Ondansetron HCl [Zofran] 4 mg PO BID PRN 10/18/16 01/20/18 History Mirtazapine [Remeron] 45 mg PO HS 04/10/17 01/20/18 History ALPRAZolam [Xanax] 0.5 mg PO TID PRN 06/06/17 01/20/18 History Bumetanide [BUMEX] 2 mg PO DAILY@1200 09/16/17 01/20/18 History Pregabalin [Lyrica] 150 mg PO BID 09/16/17 01/20/18 History busPIRone HCL [Buspar] 30 mg PO BID 09/16/17 01/20/18 History Baclofen [Lioresal] 20 mg PO Q8H PRN 10/09/17 01/20/18 History Morphine Sulfate ER [Ms Contin] 30 mg PO Q8H PRN 11/03/17 01/20/18 History Nystatin 100,000 Unit/gm Powd 1 applic TOPICAL BID 11/04/17 01/20/18 History [Mycostatin Powder] Promethazine/Dextromethorphan 5 ml PO Q6H PRN 11/04/17 01/20/18 History [Promethazine-Dm Solution] Docusate [Colace] 100 mg PO BID PRN #60 cap 11/10/17 01/20/18 Rx Ipratropium-Albuterol Nebulize 3 ml INHALATION RT-QID #120 11/10/17 01/20/18 Rx [Duoneb 0.5 mg-3 mg/3 ml Soln] ampul.neb Potassium Chloride ER [K-Dur 20] 20 meq PO DAILY #30 tab.er.prt 11/10/17 Rx Ibuprofen [Advil] 800 mg PO Q8HR PRN 11/22/17 01/20/18 History Sennosides-Docusate Sodium 2 tab PO BID PRN 12/07/17 01/20/18 History [Senokot-S] Hydrocodone/Acetaminophen [[place] 1 tab PO Q6H PRN 3 Days #12 tab 12/09/17 Rx 10-325] Warfarin [Coumadin] 10 mg PO HS 01/20/18 01/20/18 History Allergies Allergy/AdvReac Type Severity Reaction Status Date / Time ketorolac tromethamine Allergy Severe Anaphylaxis Verified 01/20/18 22:57 [From Toradol] Opioids - Morphine Analogues Allergy Mild Itching Verified 01/20/18 22:57 Iodinated Contrast- Oral and Allergy Unknown Verified 01/20/18 22:57 IV Dye rivaroxaban [From Xarelto] Allergy Rash/Hives Verified 01/20/18 22:57 sumatriptan [From Imitrex] Allergy Anaphylaxis Verified 01/20/18 22:57 sumatriptan succinate Allergy Anaphylaxis Verified 01/20/18 22:57 [From Imitrex] morphine AdvReac Severe Itching Verified 01/20/18 22:57 iodine AdvReac Intermediate Itching Verified 01/20/18 22:57 tramadol AdvReac Anaphylaxis Verified 01/20/18 22:57 vancomycin AdvReac Itching Verified 01/20/18 22:57 Rich wipes AdvReac Severe Rash/Hives Uncoded 12/15/17 16:22 Physical Exam Vitals: Vital Signs Temp Pulse Pulse Resp BP BP Pulse Ox 01/21/18 11:08 98 F 95 16 132/74 100 01/21/18 08:20 98 F 93 16 115/58 96 10/22/18 04:00 93 18 01/21/18 03:55 98.2 F 93 18 120/78 98 01/21/18 03:31 98.0 F 92 20 137/82 96 01/21/18 00:19 97.7 F 97 18 138/78 97 01/20/18 22:17 98.2 F 106 H 20 115/69 97 Intake and Output 01/20/18 01/21/18 01/21/18 22:59 06:59 14:59 Intake Total 80 360 Output Total 400 Balance 80 -40 Intake: IV 80 0.9 80 Oral 360 Output: Urine 400 Other: Voiding Method Toilet Toilet Weight 113.398 kg 110 kg - Constitutional General appearance: Present: average body habitus, cooperative, no acute distress - EENT Eyes: Present: anicteric sclerae, EOMI, PERRLA, normal appearance ENT: Present: hearing grossly normal, normal oropharynx Ears: bilateral: normal - Neck Neck: Present: normal ROM. Absent: lymphadenopathy, rigidity, thyromegaly Carotids: negative: bruit present Thyroid: bilateral: normal size, negative: enlarged, nodule - Respiratory Respiratory: bilateral: CTA, negative: rales, rhonchi, wheezing - Cardiovascular Rhythm: regular Heart sounds: normal: S1, S2 Abnormal Heart Sounds: Absent: systolic murmur, diastolic murmur - Gastrointestinal General gastrointestinal: Present: normal bowel sounds, soft. Absent: distended , organomegaly, tenderness - Genitourinary Genitourinary Comment(s): deferred - Integumentary Integumentary: Present: normal turgor. Absent: jaundiced, rash, ulcer - Neurologic Neurologic: Present: CNII-XII intact. Absent: focal deficits - Musculoskeletal Musculoskeletal: Present: gait normal, strength equal bilaterally - Psychiatric Psychiatric: Present: A&O x's 3, appropriate affect, intact judgment & insight Results CBC & Chem 7: 01/20/18 23:32 01/21/18 06:24 Labs: Abnormal Lab Results - Last 24 Hours (Table) 01/20/18 01/20/18 01/20/18 Range/Units 23:32 23:32 23:32 WBC 13.8 H (3.8-10.6) k/uL RDW 15.6 H (11.5-15.5) % Neutrophils # 7.8 H (1.3-7.7) k/uL PT 12.2 H (9.0-12.0) sec INR 1.3 H (<1.2) Potassium 3.1 L (3.5-5.1) mmol/L Chloride 111 H (98-107) mmol/L Carbon Dioxide 20 L (22-30) mmol/L Glucose (74-99) mg/dL Magnesium (1.6-2.3) mg/dL 01/21/18 Range/Units 06:24 WBC (3.8-10.6) k/uL RDW (11.5-15.5) % Neutrophils # (1.3-7.7) k/uL PT (9.0-12.0) sec INR (<1.2) Potassium (3.5-5.1) mmol/L Chloride 111 H (98-107) mmol/L Carbon Dioxide 16 L (22-30) mmol/L Glucose 162 H (74-99) mg/dL Magnesium 2.5 H (1.6-2.3) mg/dL Thrombosis Risk Factor Assmnt - Choose All That Apply Any of the Below Risk Factors Present?: Yes Each Factor Represents 1 point: Age 41-60 years Thrombosis Risk Factor Assessment Total Risk Factor Score: 1 Thrombosis Risk Factor Assessment Level: Low Risk Assessment and Plan Assessment: Assessment #1 intermittent episodes of palpitation associated with dizziness and lightheadedness #2 abnormal EKG showing prolonged QT interval was corrected QT interval of 550 ms #3 depression currently the patient is on Prozac #4 hypertension Plan #1 continue holding the Prozac and probably fighting and alternative for long- term down the line #2 repeat the EKG later on today as well as tomorrow #3 continue metoprolol #4 electrolytes monitoring including potassium and magnesium #5 follow-up with the patient Time with Patient: Greater than 30
== END 2018-01-21 12:22 | disposition left against medical advice (07) ==
LOC: EC 22:14 → 3SCARD 01-21 00:59 → INTOOBSV 01-21 00:59 → 3SCARD 01-21 03:27 → UNDODISIN 01-21 12:22
PROVIDERS: ADMIT Hospitalist; ATTEND Hospitalist
DX: R42 Dizziness and giddiness (principal); R00.2 Palpitations; E87.2 Acidosis; I45.81 Long QT syndrome; D45 Polycythemia vera; D86.9 Sarcoidosis, unspecified; R11.2 Nausea with vomiting, unspecified; M79.622 Pain in left upper arm; F31.9 Bipolar disorder, unspecified; E78.5 Hyperlipidemia, unspecified; F41.0 Panic disorder [episodic paroxysmal anxiety]; I11.0 Hypertensive heart disease with heart failure; I25.10 Atherosclerotic heart disease of native coronary artery without angina pectoris; I25.2 Old myocardial infarction; I50.9 Heart failure, unspecified; J44.9 Chronic obstructive pulmonary disease, unspecified; J84.10 Pulmonary fibrosis, unspecified; M79.7 Fibromyalgia; E07.9 Disorder of thyroid, unspecified; E66.3 Overweight; Z68.39 Body mass index [BMI] 39.0-39.9, adult; Z79.01 Long term (current) use of anticoagulants; Z79.899 Other long term (current) drug therapy; Z91.19 Patient's noncompliance with other medical treatment and regimen; Z88.5 Allergy status to narcotic agent; Z88.8 Allergy status to other drugs, medicaments and biological substances; Z88.1 Allergy status to other antibiotic agents; Z91.048 Other nonmedicinal substance allergy status; Z91.041 Radiographic dye allergy status; Z87.891 Personal history of nicotine dependence; Z86.718 Personal history of other venous thrombosis and embolism; Z86.711 Personal history of pulmonary embolism; Z87.01 Personal history of pneumonia (recurrent); Z86.61 Personal history of infections of the central nervous system; Z86.14 Personal history of Methicillin resistant Staphylococcus aureus infection; Z90.49 Acquired absence of other specified parts of digestive tract; Z82.49 Family history of ischemic heart disease and other diseases of the circulatory system; Z83.3 Family history of diabetes mellitus; Z82.3 Family history of stroke; Z82.69 Family history of other diseases of the musculoskeletal system and connective tissue; W19.XXXA Unspecified fall, initial encounter
CPT/HCPCS: 96361; 96365; 96366; 96375 ×2; 99285; 36415; 93005; 80048 ×2; 83735 ×2; 85025; 85610; 81003; 81025; 87502; 73060; 71045; 70496; 70498; G0378; J1200; J2765; J2930; J3475; Q9967

== ENCOUNTER → 2018-04-23 | Outpatient (CLI) | payer OTHER ==
--- NOTE | 2018-04-27 12:57 | MM ---
Reason for exam: clinical finding. Last mammogram was performed 17 years and 9 months ago. History: Family history of breast cancer in mother at age 35 and breast cancer in maternal aunt. Indicated problem(s): non-bloody discharge and pain in the left breast. Physical Findings: Nurse did not find any significant physical abnormalities on exam. MG 3D Diag Mammo W/Cad PAOLA Bilateral CC and MLO view(s) were taken. Prior study comparison: July 20, 2000, bilateral screening mammogram. May 20, 1999, bilateral diagnostic mammogram. The breast tissue is heterogeneously dense. This may lower the sensitivity of mammography. There are benign round bilateral breast calcifications. No discrete abnormality. These results were verbally communicated with the patient and result sheet given to the patient on 04/23/18. ASSESSMENT: Benign, BI-RAD 2 RECOMMENDATION: Clinical management of the left breast. Pain and discharge Routine screening mammogram of both breasts in 1 year.
== END | disposition home or self-care (01) ==
LOC: RADMAMWWP 10:52
PROVIDERS: ATTEND Family Medicine
DX: N64.4 Mastodynia (principal); Z12.31 Encounter for screening mammogram for malignant neoplasm of breast
CPT/HCPCS: 77066; G0279; 77062

== ENCOUNTER 2018-05-22 07:06 | Emergency (ER) | payer BC, OTHER ==
[2018-05-22 07:19] VITALS: BP 116/72; PULSE 105; RESP 18; TEMP 99.8
[2018-05-22] MEDS ORDERED: ACETAMINOPHEN IV (For NPO) 1,000 MG in SALINE 1 100ML.BAG IVPB STA (07:52)
--- NOTE | 2018-05-22 07:57 | ED ---
Dizziness HPI - General Chief Complaint: Dizziness Stated Complaint: Syncope/Falling Online Check In Time Seen by Provider: 05/22/18 07:20 Source: patient, family, RN notes reviewed Mode of arrival: ambulatory Limitations: no limitations - History of Present Illness Initial Comments: This is a 48-year-old female history of multiple medical issues including a diagnosis of benign positional vertigo that was diagnosed about a year ago who currently is on meclizine who states she's been falling frequently over last 4- 5 days including episodes where she did bruise her left face and her right shoulder. She states when she has these episodes she feels out of it she doesn' t have a good memory of what it occurs. This is confirmed by her . She has had slurred speech during these episodes. For the most part this seems to of resolved she still has some dizziness however. She also states she's had low -grade fever and cough for the past day or so. Some rhinorrhea. No focal deficits to her upper or lower extremities no other modifying factors she denies any headaches at this time is facial pain. MD Complaint: dizziness, lightheadedness, near syncope, difficulty walking, other - Related Data Home Medications Medication Instructions Recorded Confirmed lamoTRIgine [LaMICtal] 200 mg PO DAILY 03/22/16 05/22/18 Bumetanide 4 mg PO QAM 10/18/16 05/22/18 Butalb/APAP/Caff 50-325-40Mg 1 tab PO Q4H PRN 10/18/16 05/22/18 [Fioricet 50-325-40] Ondansetron HCl [Zofran] 4 mg PO BID PRN 10/18/16 05/22/18 Mirtazapine [Remeron] 45 mg PO HS 04/10/17 05/22/18 ALPRAZolam [Xanax] 0.5 mg PO TID PRN 06/06/17 05/22/18 Bumetanide [BUMEX] 2 mg PO DAILY@1200 09/16/17 05/22/18 Pregabalin [Lyrica] 150 mg PO BID 09/16/17 05/22/18 Baclofen [Lioresal] 20 mg PO Q8H PRN 10/09/17 05/22/18 Morphine Sulfate ER [Ms Contin] 30 mg PO Q8H PRN 11/03/17 05/22/18 Nystatin 100,000 Unit/gm Powd 1 applic TOPICAL BID 11/04/17 05/22/18 [Mycostatin Powder] Promethazine/Dextromethorphan 5 ml PO Q6H PRN 11/04/17 05/22/18 [Promethazine-Dm Solution] Ibuprofen [Advil] 800 mg PO Q8HR PRN 11/22/17 05/22/18 Sennosides-Docusate Sodium 2 tab PO BID PRN 12/07/17 05/22/18 [Senokot-S] Warfarin [Coumadin] 10 mg PO HS 01/20/18 05/22/18 Ipratropium-Albuterol Nebulize 3 ml INHALATION RT-QID PRN 05/22/18 05/22/18 [Duoneb 0.5 mg-3 mg/3 ml Soln] Meclizine HCl 25 mg PO TID PRN 05/22/18 05/22/18 Previous Rx's Medication Instructions Recorded FLUoxetine HCL [PROzac] 20 mg PO DAILY #30 capsule 08/20/15 Metoprolol Tartrate [Lopressor] 50 mg PO BID #60 tab 08/20/15 Docusate [Colace] 100 mg PO BID PRN #60 cap 11/10/17 Potassium Chloride ER [K-Dur 20] 20 meq PO DAILY #30 tab.er.prt 11/10/17 Hydrocodone/Acetaminophen [[place] 1 tab PO Q6H PRN 3 Days #12 tab 12/09/17 10-325] Allergies Allergy/AdvReac Type Severity Reaction Status Date / Time ketorolac tromethamine Allergy Severe Anaphylaxis Verified 05/22/18 07:38 [From Toradol] Opioids - Morphine Analogues Allergy Mild Itching Verified 05/22/18 07:38 Iodinated Contrast- Oral and Allergy Unknown Verified 05/22/18 07:38 IV Dye rivaroxaban [From Xarelto] Allergy Rash/Hives Verified 05/22/18 07:38 sumatriptan [From Imitrex] Allergy Anaphylaxis Verified 05/22/18 07:38 sumatriptan succinate Allergy Anaphylaxis Verified 05/22/18 07:38 [From Imitrex] tramadol Allergy Anaphylaxis Verified 05/22/18 07:38 morphine AdvReac Severe Itching Verified 05/22/18 07:38 iodine AdvReac Intermediate Itching Verified 05/22/18 07:38 vancomycin AdvReac Itching Verified 05/22/18 07:38 Rich wipes Allergy Severe Rash/Hives Uncoded 05/22/18 07:38 Review of Systems ROS Statement: Those systems with pertinent positive or pertinent negative responses have been documented in the HPI. ROS Other: All systems not noted in ROS Statement are negative. Past Medical History Past Medical History: Blood Disorder, Heart Failure, COPD, Deep Vein Thrombosis (DVT), Hyperlipidemia, Hypertension, Myocardial Infarction (NV), Musculoskeletal Disorder, Pneumonia, Pulmonary Embolus (PE), Thyroid Disorder Additional Past Medical History / Comment(s): PE 2012; Sarcoidosis diagnosed in 2015 following a bronchoscopy and lung biopsy done at [facility] and she was started on predniosone and she took the therapy for almost 1 year, polycythemia, overweight, bilateral PE (2011, 2015), bilateral DVTs, fibromyalgia, bipolar disorder, degenerative disk disorder, coronary artery disease along with previous history of a NV and ventilator dependent respiratory failure with MRSA pneumonia for which the patient was hospitalized [facility] in 2012. Viral meningitis in October 2014. Pulmonary fibrosis, home 02 3l n/c Last Myocardial Infarction Date:: February 15, 2013 History of Any Multi-Drug Resistant Organisms: MRSA Date of last positivie culture/infection: 11/09/17 MDRO Source:: PLEURAL FLUID Past Surgical History: Section, Cholecystectomy, Heart Catheterization , Hernia Repair, Orthopedic Surgery Additional Past Surgical History / Comment(s): Lt ankle surgery, several bronchosopy-most recently 11/09/17 Past Anesthesia/Blood Transfusion Reactions: Motion Sickness, Postoperative Nausea & Vomiting (PONV) Additional Past Anesthesia/Blood Transfusion Reaction / Comment(s): previously charted -pt stated that last April she coded due to anesthetic Past Psychological History: Anxiety, Bipolar, Depression, Panic Disorder Smoking Status: Current some day smoker Past Alcohol Use History: None Reported Past Drug Use History: None Reported - Past Family History Father Family Medical History: Blood Disorder, Congestive Heart Failure (CHF), CVA/TIA , Deep Vein Thrombosis (DVT), Myocardial Infarction (NV) Additional Family Medical History / Comment(s): polycythemia Mother Family Medical History: Congestive Heart Failure (CHF), Diabetes Mellitus, Deep Vein Thrombosis (DVT), Myocardial Infarction (NV), Musculoskeletal Disorder Additional Family Medical History / Comment(s): DDD Sister(s) Family Medical History: No Reported History Brother(s) Family Medical History: No Reported History Son(s) Family Medical History: No Reported History Daughter(s) Family Medical History: No Reported History General Exam - General Exam Comments Initial Comments: This is a well-developed well-nourished awake alert oriented 3 female she does demonstrate a Gerald Coma Scale of 15 Limitations: no limitations General appearance: alert, anxious Head exam: Present: normocephalic, normal inspection, other (Ecchymosis seen over the left inferior lateral orbit no step-off or crepitation.) Eye exam: Present: normal appearance, PERRL, EOMI. Absent: scleral icterus, conjunctival injection, periorbital swelling ENT exam: Present: normal exam, mucous membranes moist Neck exam: Present: normal inspection, full ROM, other (No stridor JVD or bruits ). Absent: tenderness, meningismus, lymphadenopathy Respiratory exam: Present: normal lung sounds bilaterally. Absent: respiratory distress, wheezes, rales, rhonchi, stridor Cardiovascular Exam: Present: normal rhythm, tachycardia, normal heart sounds. Absent: systolic murmur, diastolic murmur, rubs, gallop, clicks GI/Abdominal exam: Present: soft, normal bowel sounds. Absent: distended, tenderness, guarding, rebound, rigid Extremities exam: Present: normal inspection, full ROM, tenderness (Tennis palpation of the right shoulder no step-off or crepitation), normal capillary refill. Absent: pedal edema, joint swelling, calf tenderness Back exam: Present: normal inspection Neurological exam: Present: alert, oriented X3, CN II-XII intact Psychiatric exam: Present: normal affect, normal mood Skin exam: Present: warm, dry, intact, normal color, other (Several areas of ecchymosis). Absent: rash Course Vital Signs 05/22/18 07:13 Temperature 99.8 F H Pulse Rate 105 H Respiratory 18 Rate Blood Pressure 116/72 O2 Sat by Pulse 95 Oximetry - Reevaluation(s) Reevaluation #1: 05/22/18 08:47 Patient initially was hesitant to proceed with the workup due to the fact that I ordered over many of her pain and she wanted other pain medications. She did ask if I noted what she was taking at home and I did see the med list I did caution her that I do not want to further precipitate possible reactions and so we get the workup sorted out more. She initially was in agreement with this she did accept taking the oh for many of them proceed with the workup and if needed further medication will be given. 05/22/18 08:51 The patient was awake alert oriented 3 able ambulate upon departure EKG Findings - EKG Results: EKG: interpreted by EVELIN VARNER, sinus rhythm, normal axis, normal QRS, normal ST/ T, no acute changes (Normal sinus rhythm tachycardia rate of 101 TX interval 132 QRS duration 68 QT since QTC 370/[address]-T wave changes.) Medical Decision Making - Medical Decision Making The patient did not want to proceed with any workup and chose to leave AGAINST MEDICAL ADVICE. Her forearm and she refused any further workup until she got stronger pain medications than the IV Tylenol that was offered. Medically this is not advisable at this time and again I did have a discussion with her with her significant other presents initially she did agree with this. Now she refuses further workup. Disposition Clinical Impression: Benign paroxysmal positional vertigo, Facial contusion, Contusion of right shoulder, Febrile illness, acute Disposition: Left Against Medical Advice Condition: Stable Is patient prescribed a controlled substance at d/c from ED?: No Referrals: Liz Koch MD [Primary Care Provider] - 1-2 days
[2018-05-22 08:58] LABS: Appearance,Urine Clear (Clear); Bilirubin,Urine Negative (Negative); Blood,Urine Negative (Negative); Color,Urine Light Yellow; Glucose,Urine (UA) Negative (Negative); Ketones,Urine Negative (Negative); Leukocyte Esterase,Urine Negative (Negative); Nitrite,Urine Negative (Negative); Protein,Urine Negative (Negative); Specific Gravity,Urine 1.008 (1.001-1.035); Urobilinogen,Urine <2.0 mg/dL (<2.0)
== END 2018-05-22 08:54 | disposition left against medical advice (07) ==
LOC: EC 07:06
DX: H81.10 Benign paroxysmal vertigo, unspecified ear (principal); S40.011A Contusion of right shoulder, initial encounter; S00.83XA Contusion of other part of head, initial encounter; R50.9 Fever, unspecified; R00.0 Tachycardia, unspecified; R29.6 Repeated falls; R05 Cough; R09.89 Other specified symptoms and signs involving the circulatory and respiratory systems; R26.2 Difficulty in walking, not elsewhere classified; R47.81 Slurred speech; J44.9 Chronic obstructive pulmonary disease, unspecified; I11.0 Hypertensive heart disease with heart failure; I50.9 Heart failure, unspecified; I25.10 Atherosclerotic heart disease of native coronary artery without angina pectoris; I25.2 Old myocardial infarction; F31.9 Bipolar disorder, unspecified; M79.7 Fibromyalgia; Z82.49 Family history of ischemic heart disease and other diseases of the circulatory system; F17.200 Nicotine dependence, unspecified, uncomplicated; Z88.1 Allergy status to other antibiotic agents; Z88.5 Allergy status to narcotic agent; Z88.6 Allergy status to analgesic agent; Z88.8 Allergy status to other drugs, medicaments and biological substances; Z91.041 Radiographic dye allergy status; Z91.09 Other allergy status, other than to drugs and biological substances; Z79.01 Long term (current) use of anticoagulants; Z79.899 Other long term (current) drug therapy; Z86.14 Personal history of Methicillin resistant Staphylococcus aureus infection; Z95.818 Presence of other cardiac implants and grafts; Z86.711 Personal history of pulmonary embolism; Z86.718 Personal history of other venous thrombosis and embolism; Z98.890 Other specified postprocedural states; Z99.81 Dependence on supplemental oxygen; Z53.20 Procedure and treatment not carried out because of patient's decision for unspecified reasons; W19.XXXA Unspecified fall, initial encounter
CPT/HCPCS: 81003; 93005; 99284

== ENCOUNTER → 2018-06-04 | Outpatient (CLI) | payer BC, OTHER ==
--- NOTE | 2018-06-04 16:07 | XR ---
EXAMINATION TYPE: XR facial bones complete DATE OF EXAM: 06/04/2018 COMPARISON: NONE HISTORY: 48-year-old female fall and facial contusion, left orbit TECHNIQUE: 3 views FINDINGS: Radiographic technique, the orbits appear symmetrical. The maxillary, frontal, ethmoid, and sphenoid sinuses appear pneumatized. Nasal bone appears intact. IMPRESSION: Clear paranasal sinuses. No acute osseous abnormality is radiographically apparent. If persistent con ical concern, facial bone CT can be considered.
== END | disposition home or self-care (01) ==
LOC: RADXRMAIN 14:03
PROVIDERS: ATTEND Nurse Practitioner Family
DX: S00.83XD Contusion of other part of head, subsequent encounter (principal); Z91.81 History of falling
CPT/HCPCS: 70150

== ENCOUNTER 2018-06-13 14:15 | Emergency (ER) | payer BC, OTHER ==
[2018-06-13 14:25] VITALS: TEMP 98.7
--- NOTE | 2018-06-13 14:49 | ED ---
General Adult HPI - General Chief complaint: Extremity Injury, Lower Stated complaint: toe injury Time Seen by Provider: 06/13/18 14:28 Source: patient, RN notes reviewed, old records reviewed Mode of arrival: wheelchair Limitations: no limitations - History of Present Illness Initial comments: 48 year old female patient with complex past medical history presents to ED after sustaining a mechanical fall yesterday. Patient reports he got out of her car, slipped with her right foot, fell on her gluteal region. Patient denies any trauma head neck. Patient primary complaint today is pain on her left great toe. Patient has a history of a hallux valgus in the region. Patient reports she has been laboratory with some pain in her right great toe. Patient denies all other complaints. Systemic: Pt denies fatigue, fever/chills, rash. Pt denies weakness, night sweats, weight loss. Neuro: Pt denies headache, visual disturbances, syncope or pre-syncope. HEENT: Pt denies ocular discharge or irritation, otalgia, rhinorrhea, pharyngitis or notable lymphadenopathy. Cardiopulmonary: Pt denies chest pain, SOB, heart palpitations, dyspnea on exertion. Abdominal/GI: Pt denies abdominal pain, n/v/d. : Pt denies dysuria, burning w/ urination, frequency/urgency. Denies new onset urinary or bowel incontinence. MSK: Pt denies loss of strength or function in extremities. Neuro: Pt denies new onset weakness, paresthesias. - Related Data Home Medications Medication Instructions Recorded Confirmed lamoTRIgine [LaMICtal] 200 mg PO DAILY 03/22/16 05/22/18 Bumetanide 4 mg PO QAM 10/18/16 05/22/18 Butalb/APAP/Caff 50-325-40Mg 1 tab PO Q4H PRN 10/18/16 05/22/18 [Fioricet 50-325-40] Ondansetron HCl [Zofran] 4 mg PO BID PRN 10/18/16 05/22/18 Mirtazapine [Remeron] 45 mg PO HS 04/10/17 05/22/18 ALPRAZolam [Xanax] 0.5 mg PO TID PRN 06/06/17 05/22/18 Bumetanide [BUMEX] 2 mg PO DAILY@1200 09/16/17 05/22/18 Pregabalin [Lyrica] 150 mg PO BID 09/16/17 05/22/18 Baclofen [Lioresal] 20 mg PO Q8H PRN 10/09/17 05/22/18 Morphine Sulfate ER [Ms Contin] 30 mg PO Q8H PRN 11/03/17 05/22/18 Nystatin 100,000 Unit/gm Powd 1 applic TOPICAL BID 11/04/17 05/22/18 [Mycostatin Powder] Promethazine/Dextromethorphan 5 ml PO Q6H PRN 11/04/17 05/22/18 [Promethazine-Dm Solution] Ibuprofen [Advil] 800 mg PO Q8HR PRN 11/22/17 05/22/18 Sennosides-Docusate Sodium 2 tab PO BID PRN 12/07/17 05/22/18 [Senokot-S] Warfarin [Coumadin] 10 mg PO HS 01/20/18 05/22/18 Ipratropium-Albuterol Nebulize 3 ml INHALATION RT-QID PRN 05/22/18 05/22/18 [Duoneb 0.5 mg-3 mg/3 ml Soln] Meclizine HCl 25 mg PO TID PRN 05/22/18 05/22/18 Previous Rx's Medication Instructions Recorded FLUoxetine HCL [PROzac] 20 mg PO DAILY #30 capsule 08/20/15 Metoprolol Tartrate [Lopressor] 50 mg PO BID #60 tab 08/20/15 Docusate [Colace] 100 mg PO BID PRN #60 cap 11/10/17 Potassium Chloride ER [K-Dur 20] 20 meq PO DAILY #30 tab.er.prt 11/10/17 Hydrocodone/Acetaminophen [Mcdav[place] 1 tab PO Q6H PRN 3 Days #12 tab 12/09/17 10-325] Allergies Allergy/AdvReac Type Severity Reaction Status Date / Time ketorolac tromethamine Allergy Severe Anaphylaxis Verified 06/13/18 14:26 [From Toradol] Opioids - Morphine Analogues Allergy Mild Itching Verified 06/13/18 14:26 Iodinated Contrast- Oral and Allergy Unknown Verified 06/13/18 14:26 IV Dye rivaroxaban [From Xarelto] Allergy Rash/Hives Verified 06/13/18 14:26 sumatriptan [From Imitrex] Allergy Anaphylaxis Verified 06/13/18 14:26 sumatriptan succinate Allergy Anaphylaxis Verified 06/13/18 14:26 [From Imitrex] tramadol Allergy Anaphylaxis Verified 06/13/18 14:26 morphine AdvReac Severe Itching Verified 06/13/18 14:26 iodine AdvReac Intermediate Itching Verified 06/13/18 14:26 vancomycin AdvReac Itching Verified 06/13/18 14:26 Rich wipes Allergy Severe Rash/Hives Uncoded 06/13/18 14:26 Review of Systems ROS Statement: Those systems with pertinent positive or pertinent negative responses have been documented in the HPI. ROS Other: All systems not noted in ROS Statement are negative. Past Medical History Past Medical History: Blood Disorder, Heart Failure, COPD, Deep Vein Thrombosis (DVT), Hyperlipidemia, Hypertension, Myocardial Infarction ([place]), Musculoskeletal Disorder, Pneumonia, Pulmonary Embolus (PE), Thyroid Disorder Additional Past Medical History / Comment(s): PE 2012; Sarcoidosis diagnosed in 2015 following a bronchoscopy and lung biopsy done at [facility] and she was started on predniosone and she took the therapy for almost 1 year, polycythemia, overweight, bilateral PE (2011, 2015), bilateral DVTs, fibromyalgia, bipolar disorder, degenerative disk disorder, coronary artery disease along with previous history of a [place] and ventilator dependent respiratory failure with MRSA pneumonia for which the patient was hospitalized [facility] in 2012. Viral meningitis in October 2014. Pulmonary fibrosis, home 02 3l n/c Last Myocardial Infarction Date:: February 15, 2013 History of Any Multi-Drug Resistant Organisms: MRSA Date of last positivie culture/infection: 11/09/17 MDRO Source:: PLEURAL FLUID Past Surgical History: Section, Cholecystectomy, Heart Catheterization, Hernia Repair, Orthopedic Surgery Additional Past Surgical History / Comment(s): Lt ankle surgery, several bronchosopy-most recently 11/09/17 Past Anesthesia/Blood Transfusion Reactions: Motion Sickness, Postoperative Nausea & Vomiting (PONV) Additional Past Anesthesia/Blood Transfusion Reaction / Comment(s): previously charted -pt stated that last April she coded due to anesthetic Past Psychological History: Anxiety, Bipolar, Depression, Panic Disorder Smoking Status: Current some day smoker Past Alcohol Use History: None Reported Past Drug Use History: None Reported - Past Family History Father Family Medical History: Blood Disorder, Congestive Heart Failure (CHF), CVA/TIA, Deep Vein Thrombosis (DVT), Myocardial Infarction (OR) Additional Family Medical History / Comment(s): polycythemia Mother Family Medical History: Congestive Heart Failure (CHF), Diabetes Mellitus, Deep Vein Thrombosis (DVT), Myocardial Infarction (OR), Musculoskeletal Disorder Additional Family Medical History / Comment(s): DDD Sister(s) Family Medical History: No Reported History Brother(s) Family Medical History: No Reported History Son(s) Family Medical History: No Reported History Daughter(s) Family Medical History: No Reported History General Exam - General Exam Comments Initial Comments: Constitutional: NAD, AOX3, Pt has pleasant affect. HEENT: NC/AT, trachea midline, neck supple, no lymphadenopathy. Posterior pharynx non erythematous, without exudates. External ears appear normal, without discharge. Mucous membranes moist. Eyes PERRLA, EOM intact. There is no scleral icterus. No pallor noted. Cardiopulmonary: RRR, no murmurs, rubs or gallops, no JVD noted. Lungs CTAB in anterior and posterior diana. No peripheral edema. Abdominal exam: Abdomen soft and non-distended. Abdomen non-tender to palpation in all 4 quadrants. Bowel sounds active in LLQ. No hepatosplenomegaly. No ecchymosis Neuro: CN II-XII grossly intact. No nuchal rigidity. MSK: Right great toe mildly tender to palpation in hallux valgus region. Patient able to wiggle toes. No other areas of tenderness. No ecchymoses. Neurovascularly intact. Ambulatory with pain. No posterior calf tenderness bilaterally, homans sign negative bilaterally. Posterior tibialis and radial pulse +2 bilaterally. Sensation intact in upper and lower extremities. Full active ROM in upper and lower extremities, 5/5 stregnth. Limitations: no limitations Course Vital Signs 06/13/18 06/13/18 14:20 16:04 Temperature 98.7 F Pulse Rate 77 69 Respiratory 16 18 Rate Blood Pressure 109/71 111/67 O2 Sat by Pulse 98 97 Oximetry Medical Decision Making - Medical Decision Making 48 year old female patient with complex past medical history presents to ED after sustaining a mechanical fall yesterday. Patient reports he got out of her car, slipped with her right foot, fell on her gluteal region. Patient denies any trauma head neck. Patient primary complaint today is pain on her left great toe. Patient has a history of a hallux valgus in the region. Patient reports she has been laboratory with some pain in her right great toe. Patient denies all other complaints. Pt VSS, afebrile. Physical exam displayed: Right great toe mildly tender to palpation in hallux valgus region. Patient able to wiggle toes. No other areas of tenderness. No ecchymoses. Neurovascularly intact. Ambulatory with pain. No posterior calf tenderness bilaterally, homans sign negative bilaterally. Posterior tibialis and radial pulse +2 bilaterally. Sensation intact in upper and lower extremities. Full active ROM in upper and lower extremities, 5/5 stregnth. Plain film of right foot displayed no acute osseous abnormality. Patient placed in postop walking shoe. Patient able to ambulate without difficulty. Patient to follow up with primary care provider in 1-2 days. Patient to follow-up with. This option with the surgeon 1-2 days if symptoms continue. Patient return to ER if descends symptoms develop or condition worsens. Case discussed with dr. Valdez. Disposition Clinical Impression: Sprain of foot, right Disposition: HOME SELF-CARE Condition: Stable Instructions (If sedation given, give patient instructions): Foot Sprain (ED) Additional Instructions: Patient to adhere to previously discussed treatment plan and will take medication(s) as directed. Patient to follow up with PCP in 1-2 days. Patient to return to ED if symptoms do not improve. Please follow-up with primary care provider. If symptoms continue or worsen may follow with previously established orthopedic consult. Please return to ER if condition worsens in any way. Is patient prescribed a controlled substance at d/c from ED?: No Referrals: Liz Koch MD [Primary Care Provider] - 1-2 days
--- NOTE | 2018-06-13 15:27 | XR ---
Right foot HISTORY: Trauma and pain first digit 3 views of the right foot are submitted. Correlation to previous exam 10/02/2016. There is a hallux valgus deformity. Alignment, joint spaces, bone mineralization are stable. Old fift h metatarsal fracture is stable. Cortical thickening of the distal second digit is compatible with he aled fracture seen on previous exam. Arthropathy changes are present. Soft tissue swelling noted uzma cially at the first metatarsophalangeal joint. There is a plantar calcaneal spur. IMPRESSION: No acute fracture or dislocation evident.
[2018-06-13 16:05] VITALS: BP 111/67; PULSE 69; RESP 18
[2018-06-13] MEDS ORDERED: ACET/COD 300 MG/30 MG STARTER PACK 6 TAB BTL PO STA (16:09)
== END 2018-06-13 16:10 | disposition home or self-care (01) ==
LOC: EC 14:15
DX: S93.601A Unspecified sprain of right foot, initial encounter (principal); J44.9 Chronic obstructive pulmonary disease, unspecified; I11.0 Hypertensive heart disease with heart failure; I50.9 Heart failure, unspecified; I25.2 Old myocardial infarction; E07.9 Disorder of thyroid, unspecified; Z86.14 Personal history of Methicillin resistant Staphylococcus aureus infection; F31.9 Bipolar disorder, unspecified; F41.0 Panic disorder [episodic paroxysmal anxiety]; F17.200 Nicotine dependence, unspecified, uncomplicated; Z86.711 Personal history of pulmonary embolism; Z53.29 Procedure and treatment not carried out because of patient's decision for other reasons; Z79.01 Long term (current) use of anticoagulants; Z79.899 Other long term (current) drug therapy; Z91.041 Radiographic dye allergy status; Z88.5 Allergy status to narcotic agent; Z88.6 Allergy status to analgesic agent; Z88.1 Allergy status to other antibiotic agents; Z88.8 Allergy status to other drugs, medicaments and biological substances; Z91.048 Other nonmedicinal substance allergy status; Z95.818 Presence of other cardiac implants and grafts; W01.10XA Fall on same level from slipping, tripping and stumbling with subsequent striking against unspecified object, initial encounter
CPT/HCPCS: 99284

== ENCOUNTER 2018-06-24 17:23 | Inpatient (IN) | payer BC, OTHER ==
[2018-06-24] MEDS ORDERED: SODIUM CHLORIDE 0.9% 500 ML 500 ML IV STA (18:46)
[2018-06-24] MEDS ORDERED: ONDANSETRON 4 MG/2 ML VIAL IVP STA (18:47)
[2018-06-24] MEDS ORDERED: MORPHINE SULFATE 4 MG/ML SYRINGE IVP STA (18:47)
[2018-06-24 19:18] LABS: Basophils # (A) 0.1 k/uL (0-0.2); Basophils % (A) 1 %; Eosinophils # (A) 0.4 k/uL (0-0.7); Eosinophils % (A) 3 %; HCT 44.3 % (34.0-46.0); HGB 14.9 gm/dL (11.4-16.0); Lymphocytes # (A) 3.6 k/uL (1.0-4.8); Lymphocytes % (A) 29 %; MCH 30.5 pg (25.0-35.0); MCHC 33.6 g/dL (31.0-37.0); MCV 90.6 fL (80.0-100.0); Mean Platelet Volume 7.8; Monocytes # (A) 0.8 k/uL (0-1.0); Monocytes % (A) 6 %; Neutrophils # (A) 7.4 k/uL (1.3-7.7); Neutrophils % (A) 59 %; Platelet Count 320 k/uL (150-450); RBC 4.89 m/uL (3.80-5.40); RDW 15.3 % (11.5-15.5); WBC 12.5 k/uL (3.8-10.6)
[2018-06-24 19:21] LABS: INR 1.5 (<1.2); Partial Thromboplastin Time 27.8 sec (22.0-30.0); Prothrombin Time 14.9 sec (9.0-12.0)
[2018-06-24 19:22] LABS: ALT 30 U/L (9-52); AST 19 U/L (14-36); Albumin 3.7 g/dL (3.5-5.0); Alkaline Phosphatase 78 U/L (38-126); Anion Gap 7 mmol/L; Blood Urea Nitrogen 14 mg/dL (7-17); Calcium 8.6 mg/dL (8.4-10.2); Carbon Dioxide 24 mmol/L (22-30); Chloride 109 mmol/L (98-107); Glucose 109 mg/dL (74-99); Magnesium 1.8 mg/dL (1.6-2.3); Potassium 3.1 mmol/L (3.5-5.1); Sodium 140 mmol/L (137-145); Total Bilirubin 0.3 mg/dL (0.2-1.3); Total Protein 6.9 g/dL (6.3-8.2)
--- NOTE | 2018-06-24 19:22 | ED ---
General Adult HPI - General Chief complaint: Shortness of Breath Stated complaint: SOB Time Seen by Provider: 06/24/18 17:50 Source: patient Mode of arrival: wheelchair Limitations: no limitations - History of Present Illness Initial comments: 48 year-old female patient with past medical history significant for pulmonary fibrosis, chronic lung pain, and COPD presents to the emergency department today for evaluation of right pleuritic type chest pain. Patient has this pain chronically due to her pulmonary fibrosis, but she states it is worse than usu al. Patient states that she has been having increased pain for the last several days. Patient states she was seen and evaluated here yesterday was given pain medication, steroids, and discharged home. Patient states she caught her primary care physician because the pain did not improve and she sent her here for pain management. Patient states her shortness of breath is worsening. States she is coughing and feels like her "lungs are filling up". States that her last bronchoscopy was done approximately [address] Hicks. She denies any current fever or chills. States she is having sputum production. She denies any sore throat or nasal congestion. She did test negative for influenza on her visit yesterday. Patient denies any recent rash, abdominal pain, nausea, vomiting, diarrhea, constipation, back pain, numbness, tingling, dizziness, weakness, hematuria, dysuria, urinary urgency, urinary frequency, headache, visual changes, or any other complaints. - Related Data Home Medications Medication Instructions Recorded Confirmed lamoTRIgine [LaMICtal] 200 mg PO DAILY 03/22/16 06/24/18 Bumetanide 4 mg PO QAM 10/18/16 06/24/18 Butalb/APAP/Caff 50-325-40Mg 1 tab PO Q4H PRN 10/18/16 06/24/18 [Fioricet 50-325-40] Mirtazapine [Remeron] 45 mg PO HS 04/10/17 06/24/18 ALPRAZolam [Xanax] 0.5 mg PO TID PRN 06/06/17 06/24/18 Bumetanide [BUMEX] 2 mg PO DAILY@1200 09/16/17 06/24/18 Pregabalin [Lyrica] 150 mg PO BID 09/16/17 06/24/18 Baclofen [Lioresal] 20 mg PO Q8H PRN 10/09/17 06/24/18 Morphine Sulfate ER [Ms Contin] 30 mg PO Q8H PRN 11/03/17 06/24/18 Nystatin 100,000 Unit/gm Powd 1 applic TOPICAL BID 11/04/17 06/24/18 [Mycostatin Powder] Promethazine/Dextromethorphan 5 ml PO Q6H PRN 11/04/17 06/24/18 [Promethazine-Dm Solution] Sennosides-Docusate Sodium 2 tab PO BID PRN 12/07/17 06/24/18 [Senokot-S] Warfarin [Coumadin] 10 mg PO HS 01/20/18 06/24/18 Ipratropium-Albuterol Nebulize 3 ml INHALATION RT-QID PRN 05/22/18 06/24/18 [Duoneb 0.5 mg-3 mg/3 ml Soln] Meclizine HCl 25 mg PO TID PRN 05/22/18 06/24/18 Ondansetron [Zofran ODT] 4 mg PO BID 06/24/18 06/24/18 Warfarin Sodium [Coumadin] 2 mg PO HS 06/24/18 06/24/18 Previous Rx's Medication Instructions Recorded FLUoxetine HCL [PROzac] 20 mg PO DAILY #30 capsule 08/20/15 Metoprolol Tartrate [Lopressor] 50 mg PO BID #60 tab 08/20/15 Docusate [Colace] 100 mg PO BID PRN #60 cap 11/10/17 Potassium Chloride ER [K-Dur 20] 20 meq PO DAILY #30 tab.er.prt 11/10/17 Hydrocodone/Acetaminophen [[place] 1 tab PO Q6H PRN 3 Days #12 tab 12/09/17 10-325] Allergies Allergy/AdvReac Type Severity Reaction Status Date / Time ketorolac tromethamine Allergy Severe Anaphylaxis Verified 06/24/18 18:04 [From Toradol] Opioids - Morphine Analogues Allergy Mild Itching Verified 06/24/18 18:04 Iodinated Contrast- Oral and Allergy Unknown Verified 06/24/18 18:04 IV Dye rivaroxaban [From Xarelto] Allergy Rash/Hives Verified 06/24/18 18:04 sumatriptan [From Imitrex] Allergy Anaphylaxis Verified 06/24/18 18:04 sumatriptan succinate Allergy Anaphylaxis Verified 06/24/18 18:04 [From Imitrex] tramadol Allergy Anaphylaxis Verified 06/24/18 18:04 morphine AdvReac Severe Itching Verified 06/24/18 18:04 iodine AdvReac Intermediate Itching Verified 06/24/18 18:04 vancomycin AdvReac Itching Verified 06/24/18 18:04 Rich wipes Allergy Severe Rash/Hives Uncoded 06/24/18 17:34 Review of Systems ROS Statement: Those systems with pertinent positive or pertinent negative responses have been documented in the HPI. ROS Other: All systems not noted in ROS Statement are negative. Past Medical History Past Medical History: Blood Disorder, Heart Failure, COPD, Deep Vein Thrombosis (DVT), Hyperlipidemia, Hypertension, Myocardial Infarction (NV), Musculoskeletal Disorder, Pneumonia, Pulmonary Embolus (PE), Thyroid Disorder Additional Past Medical History / Comment(s): PE 2012; Sarcoidosis diagnosed in 2015 following a bronchoscopy and lung biopsy done at [facility] and she was started on predniosone and she took the therapy for almost 1 year, polycythemia, overweight, bilateral PE (2011, 2015), bilateral DVTs, fibromyalgia, bipolar disorder, degenerative disk disorder, coronary artery disease along with previous history of a [place] and ventilator dependent respiratory failure with MRSA pneumonia for which the patient was hospitalized [facility] in 2012. Viral meningitis in October 2014. Pulmonary fibrosis, home 02 3l n/c Last Myocardial Infarction Date:: February 15, 2013 History of Any Multi-Drug Resistant Organisms: MRSA Date of last positivie culture/infection: 11/09/17 MDRO Source:: PLEURAL FLUID Past Surgical History: Section, Cholecystectomy, Heart Catheterization, Hernia Repair, Orthopedic Surgery Additional Past Surgical History / Comment(s): Lt ankle surgery, several bronchosopy-most recently 11/09/17 Past Anesthesia/Blood Transfusion Reactions: Motion Sickness, Postoperative Nausea & Vomiting (PONV) Additional Past Anesthesia/Blood Transfusion Reaction / Comment(s): previously charted -pt stated that last April she coded due to anesthetic Past Psychological History: Anxiety, Bipolar, Depression, Panic Disorder Smoking Status: Current some day smoker Past Alcohol Use History: None Reported Past Drug Use History: None Reported - Past Family History Father Family Medical History: Blood Disorder, Congestive Heart Failure (CHF), CVA/TIA, Deep Vein Thrombosis (DVT), Myocardial Infarction (NV) Additional Family Medical History / Comment(s): polycythemia Mother Family Medical History: Congestive Heart Failure (CHF), Diabetes Mellitus, Deep Vein Thrombosis (DVT), Myocardial Infarction (NV), Musculoskeletal Disorder Additional Family Medical History / Comment(s): DDD Sister(s) Family Medical History: No Reported History Brother(s) Family Medical History: No Reported History Son(s) Family Medical History: No Reported History Daughter(s) Family Medical History: No Reported History General Exam Limitations: no limitations General appearance: alert, in no apparent distress, other (Physical well- developed, well-nourished adult female patient in no acute distress. Vital signs upon presentation are temperature 98.0F, pulse 84, respirations 18, blood pressure 129/68, pulse ox 94% on room air.) Eye exam: Present: normal appearance, PERRL, EOMI. Absent: scleral icterus, conjunctival injection, periorbital swelling ENT exam: Present: normal exam, normal oropharynx, mucous membranes moist Respiratory exam: Present: decreased breath sounds (Decreased breath sounds to the right lung), other (Tachypnea. Is able to speak full sentences.). Absent: normal lung sounds bilaterally, respiratory distress, wheezes, rales, rhonchi, stridor, accessory muscle use Cardiovascular Exam: Present: regular rate, normal rhythm, normal heart sounds. Absent: systolic murmur, diastolic murmur, rubs, gallop, clicks GI/Abdominal exam: Present: soft, normal bowel sounds. Absent: distended, tenderness, guarding, rebound, rigid Neurological exam: Present: alert, oriented X3, CN II-XII intact Psychiatric exam: Present: normal affect, normal mood Skin exam: Present: warm, dry, intact, normal color. Absent: rash Course Vital Signs 06/24/18 06/24/18 06/24/18 17:32 18:05 19:13 Temperature 98.0 F Pulse Rate 84 86 Respiratory 18 18 18 Rate Blood Pressure 129/68 133/86 O2 Sat by Pulse 94 L 96 Oximetry EKG Findings - EKG Comments: EKG Findings:: EKG obtained in 192 shows normal sinus rhythm with a ventricular rate of 76, AL interval 144, QRS duration 72, QT 394, QTC 443. No evidence of ST elevation or depression. Medical Decision Making - Medical Decision Making 48 year-old female patient presents to the emergency department today for evaluation of right-sided pleuritic chest pain and shortness of breath. Patient does have history of similar type pain with pulmonary fibrosis and COPD. States her last bronchoscopy was 6 months ago and she feels she is due. Physical examination does reveal decreased lung sounds on the right. She is to Take with no accessory muscle use. Patient is given pain medication here in the emergency department. Upon reevaluation she still reports severe pain to the right lateral chest. Patient does not feel comfortable being discharged home at this time. She'll be admitted for intractable chest pain and dyspnea. She'll have a pulmonary consult entered. - Lab Data Result diagrams: 06/24/18 19:05 06/24/18 19:05 Lab Results 06/24/18 06/24/18 06/24/18 Range/Units 19:05 19:05 19:05 WBC 12.5 H (3.8-10.6) k/uL RBC 4.89 (3.80-5.40) m/uL Hgb 14.9 (11.4-16.0) gm/dL Hct 44.3 (34.0-46.0) % MCV 90.6 (80.0-100.0) fL MCH 30.5 (25.0-35.0) pg MCHC 33.6 (31.0-37.0) g/dL RDW 15.3 (11.5-15.5) % Plt Count 320 (150-450) k/uL Neutrophils % 59 % Lymphocytes % 29 % Monocytes % 6 % Eosinophils % 3 % Basophils % 1 % Neutrophils # 7.4 (1.3-7.7) k/uL Lymphocytes # 3.6 (1.0-4.8) k/uL Monocytes # 0.8 (0-1.0) k/uL Eosinophils # 0.4 (0-0.7) k/uL Basophils # 0.1 (0-0.2) k/uL PT 14.9 H (9.0-12.0) sec INR 1.5 H (<1.2) APTT 27.8 (22.0-30.0) sec Sodium 140 (137-145) mmol/L Potassium 3.1 L (3.5-5.1) mmol/L Chloride 109 H (98-107) mmol/L Carbon Dioxide 24 (22-30) mmol/L Anion Gap 7 mmol/L BUN 14 (7-17) mg/dL Creatinine 0.74 (0.52-1.04) mg/dL Est GFR (CKD-EPI)AfAm >90 (>60 ml/min/1.73 sqM) Est GFR (CKD-EPI)NonAf >90 (>60 ml/min/1.73 sqM) Glucose 109 H (74-99) mg/dL Calcium 8.6 (8.4-10.2) mg/dL Magnesium 1.8 (1.6-2.3) mg/dL Total Bilirubin 0.3 (0.2-1.3) mg/dL AST 19 (14-36) U/L ALT 30 (9-52) U/L Alkaline Phosphatase 78 (38-126) U/L Troponin I (0.000-0.034) ng/mL Total Protein 6.9 (6.3-8.2) g/dL Albumin 3.7 (3.5-5.0) g/dL 06/24/18 Range/Units 19:05 WBC (3.8-10.6) k/uL RBC (3.80-5.40) m/uL Hgb (11.4-16.0) gm/dL Hct (34.0-46.0) % MCV (80.0-100.0) fL MCH (25.0-35.0) pg MCHC (31.0-37.0) g/dL RDW (11.5-15.5) % Plt Count (150-450) k/uL Neutrophils % % Lymphocytes % % Monocytes % % Eosinophils % % Basophils % % Neutrophils # (1.3-7.7) k/uL Lymphocytes # (1.0-4.8) k/uL Monocytes # (0-1.0) k/uL Eosinophils # (0-0.7) k/uL Basophils # (0-0.2) k/uL PT (9.0-12.0) sec INR (<1.2) APTT (22.0-30.0) sec Sodium (137-145) mmol/L Potassium (3.5-5.1) mmol/L Chloride (98-107) mmol/L Carbon Dioxide (22-30) mmol/L Anion Gap mmol/L BUN (7-17) mg/dL Creatinine (0.52-1.04) mg/dL Est GFR (CKD-EPI)AfAm (>60 ml/min/1.73 sqM) Est GFR (CKD-EPI)NonAf (>60 ml/min/1.73 sqM) Glucose (74-99) mg/dL Calcium (8.4-10.2) mg/dL Magnesium (1.6-2.3) mg/dL Total Bilirubin (0.2-1.3) mg/dL AST (14-36) U/L ALT (9-52) U/L Alkaline Phosphatase (38-126) U/L Troponin I <0.012 (0.000-0.034) ng/mL Total Protein (6.3-8.2) g/dL Albumin (3.5-5.0) g/dL - Radiology Data Radiology results: report reviewed, image reviewed 48 old female patient presents to the emergency department today for evaluation of pleuritic right chest pain and shortness of breath. Two-view x-ray of the chest is obtained. Report was reviewed in its entirety. Impression by Dr. Darleen Sinha shows suspected mild interstitial face pulmonary edema. Disposition Clinical Impression: Atypical chest pain, Dyspnea Disposition: ADMITTED IP TO THIS [facility] Condition: Serious Referrals: Liz Koch MD [Primary Care Provider] - 1-2 days Decision to Admit Reason: Admit from EC Decision Date: 06/24/18 Decision Time: 20:57
--- NOTE | 2018-06-24 19:43 | XR ---
EXAMINATION: XR chest 2V DATE AND TIME: 06/24/2018 7:31 PM CLINICAL INDICATION: PHH; difficulty breathing TECHNIQUE: Departmental protocol COMPARISON: 06/22/2018 FINDINGS: There is pulmonary vascular congestion with a fine reticular pattern of increased attenuation through out the lungs bilaterally, suggesting mild interstitial phase pulmonary edema. No major atelectasis o r evidence for pneumonia. The pleural spaces are negative. The cardiac silhouette appears mildly enlarged. The remainder of the mediastinal silhouette is unrema rkable. The skeletal structures and soft tissues are negative for acute findings. IMPRESSION: Suspect mild interstitial phase pulmonary edema.
[2018-06-24] MEDS ORDERED: NALOXONE 0.4 MG/ML 1 ML VIAL IV PRN (20:43)
[2018-06-24] MEDS ORDERED: ONDANSETRON 4 MG/2 ML VIAL IVP PRN (20:43)
[2018-06-24] MEDS ORDERED: SENNOSIDES-DOCUSATE SODIUM 1 EACH TAB PO PRN (20:45)
[2018-06-24] MEDS ORDERED: DOCUSATE 100 MG CAP PO PRN (20:45)
[2018-06-24] MEDS ORDERED: BACLOFEN 10 MG TAB PO PRN (20:45)
[2018-06-24] MEDS ORDERED: DEXTROMETHORPHAN PO PRN (20:45)
[2018-06-24] MEDS ORDERED: MECLIZINE 25 MG TAB PO PRN (20:45)
[2018-06-24] MEDS ORDERED: PROMETHAZINE PO PRN (20:45)
[2018-06-24] MEDS ORDERED: POTASSIUM CHLORIDE ER 20 MEQ TAB.ER PO STA (20:55)
[2018-06-24] MEDS ORDERED: WARFARIN 5 MG TAB PO SCH ×2 (21:00→22:04)
[2018-06-24] MEDS ORDERED: WARFARIN 2 MG TAB PO SCH ×2 (21:00→22:04)
[2018-06-24] MEDS: IPRATROPIUM-ALBUTEROL 3 ML NEB INHALATION PRN (21:45)
[2018-06-24] MEDS ORDERED: WARFARIN 10 MG TAB PO ONE ×2 (22:30→22:45)
[2018-06-24] MEDS ORDERED: WARFARIN 2 MG TAB PO ONE ×2 (22:35→22:45)
[2018-06-24] MEDS: NYSTATIN 100,000 UNIT/GM POWD 15 GM TOPICAL SCH (22:39)
[2018-06-24] MEDS: METOPROLOL TARTRATE 50 MG TAB PO SCH (22:39)
[2018-06-24] MEDS: MIRTAZAPINE 15 MG TAB PO SCH (22:39)
[2018-06-24] MEDS: PREGABALIN 75 MG CAP PO SCH (22:39)
[2018-06-24] MEDS ORDERED: WARFARIN 5 MG TAB PO ONE (22:45)
[2018-06-24] MEDS: MORPHINE SULFATE 4 MG/ML SYRINGE IV PRN (23:00)
[2018-06-24] MEDS: SODIUM CHLORIDE 0.9% 1,000 ML IV SCH (23:16)
[2018-06-25] MEDS: ALPRAZolam 0.5 MG TAB PO PRN ×3 (01:15→18:16)
[2018-06-25] MEDS ORDERED: Potassium Replacement Protocol 1 EACH MISC MISCELLANE PRN (01:46)
[2018-06-25] MEDS: POTASSIUM CHLORIDE ER 20 MEQ TAB.ER PO SCH ×3 (02:04→07:33)
[2018-06-25] MEDS: MORPHINE SULFATE 4 MG/ML SYRINGE IV PRN ×6 (03:10→23:37)
[2018-06-25] MEDS: METOPROLOL TARTRATE 50 MG TAB PO SCH ×2 (07:29→20:46)
[2018-06-25] MEDS: BUMETANIDE 1 MG TAB PO SCH ×2 (07:29→11:24)
[2018-06-25] MEDS: PREGABALIN 75 MG CAP PO SCH ×2 (07:29→20:46)
[2018-06-25] MEDS: lamoTRIgine 100 MG TAB PO SCH (07:30)
[2018-06-25] MEDS: NYSTATIN 100,000 UNIT/GM POWD 15 GM TOPICAL SCH ×2 (07:30→20:46)
[2018-06-25] MEDS: IPRATROPIUM-ALBUTEROL 3 ML NEB INHALATION PRN ×3 (09:00→15:56)
[2018-06-25 10:02] LABS: INR 1.5 (<1.2); Prothrombin Time 15.5 sec (9.0-12.0)
--- NOTE | 2018-06-25 12:34 | P.CNPUL ---
History of Present Illness Consult date: 06/25/18 Requesting physician: Gonsalo Church Reason for consult: dyspnea, cough, abnormal CXR/CT Chief complaint: Shortness of breath, cough, congestion History of present illness: This is a very pleasant 48-year-old female patient who follows with Dr. Koch as her primary care physician. She has a history of bipolar disorder, fibromyalgia, coronary artery disease with previous NC, hypertension, hyperlipidemia, chronic pain and chronic narcotic use, chronic obstructive pulmonary disease. Previous PE/DVT and anticoagulated with warfarin. She also has a history of biopsy-proven sarcoidosis. She's had ventilator-dependent respiratory failure and bronchoscopies in the past which have grown MRSA, Enterococcus faecalis and Staphylococcus species. Last bronchoscopy 6 months ago. She presented to the emergency room on 06/22/2018 with complaints of right-sided chest discomfort and pain on inspiration. She was given steroids and pain medication. She represented here yesterday with similar symptoms. Not much improvement. Chest x-ray shows some changes of mild interstitial edema. No major atelectasis or evidence of pneumonia. White count 12.5. Hemoglobin 14.9. INR 1.5. Creatinine 0.74. Troponins negative 3. EKG showed no ST or T wave abnormalities. She is seen today on the regular medical floor and consultation. She is awake and alert in no acute distress. She is still having ongoing issues with right-sided chest discomfort more so with deep inhalation. She has a loose nonproductive cough. No fever chills or night sweats. Maintaining good O2 saturations up to 100% on 2 L/m per nasal cannula. She's afebrile. Hemodynamically stable. She has been initiated on bronchodilators and promethazine. She has been requesting pain medications. She's currently on morphine 4 mg IV every 4 hours. Review of Systems Constitutional: Reports chronic pain Eyes: denies as per HPI, denies blurred vision, denies bulging eye, denies decreased vision, denies diplopia, denies discharge, denies dry eye, denies ir ritation, denies itching, denies pain, denies photophobia, denies loss of peripheral vision, denies loss of vision, denies tunnel vision/blind spots Ears: deny: decreased hearing, ear discharge, earache, tinnitus Ears, nose, mouth and throat: Denies headache, Denies sore throat Cardiovascular: Reports decreased exercise tolerance, Reports dyspnea on exertion, Reports shortness of breath Respiratory: Reports cough, Reports dyspnea, Reports pain, Reports pleurisy Gastrointestinal: Denies abdominal pain, Denies diarrhea, Denies nausea, Denies vomiting Genitourinary: Denies dysuria, Denies hematuria Musculoskeletal: Reports muscle weakness, Reports myalgias Integumentary: Denies pruritus, Denies rash Neurological: Denies numbness, Denies weakness Psychiatric: Reports anxiety Endocrine: Denies fatigue, Denies weight change Hematologic/Lymphatic: Reports easy bleeding Allergic/Immunologic: Reports as per HPI Past Medical History Past Medical History: Blood Disorder, Heart Failure, COPD, Deep Vein Thrombosis (DVT), Hyperlipidemia, Hypertension, Myocardial Infarction ([place]), Musculoskeletal Disorder, Pneumonia, Pulmonary Embolus (PE), Thyroid Disorder Additional Past Medical History / Comment(s): PE 2012; Sarcoidosis diagnosed in 2015 following a bronchoscopy and lung biopsy done at [facility] and she was started on predniosone and she took the therapy for almost 1 year, polycythemia, overweight, bilateral PE (2011, 2015), bilateral DVTs, fibromyalgia, bipolar disorder, degenerative disk disorder, coronary artery disease along with previous history of a NC and ventilator dependent respiratory failure with MRSA pneumonia for which the patient was hospitalized [facility] in 2012. Viral meningitis in October 2014. Pulmonary fibrosis, home 02 3l n/c Last Myocardial Infarction Date:: February 15, 2013 History of Any Multi-Drug Resistant Organisms: MRSA Date of last positivie culture/infection: 11/09/17 MDRO Source:: PLEURAL FLUID Past Surgical History: Section, Cholecystectomy, Heart Catheterization, Hernia Repair, Orthopedic Surgery Additional Past Surgical History / Comment(s): Lt ankle surgery, several bronchosopy-most recently 11/09/17 Past Anesthesia/Blood Transfusion Reactions: Motion Sickness, Postoperative Nausea & Vomiting (PONV) Additional Past Anesthesia/Blood Transfusion Reaction / Comment(s): previously charted -pt stated that last April she coded due to anesthetic Past Psychological History: Anxiety, Bipolar, Depression, Panic Disorder Additional Psychological History / Comment(s): and lives in the family home with her . No recent travel. No experience Smoking Status: Former smoker Past Alcohol Use History: None Reported Additional Past Alcohol Use History / Comment(s): patient lives with her significant other. last admit 11-03-17 pt was smoking 1ppd- pt's celia stated she continues to smoked but he's not suere how much and it depends on how stressed she gets". denies alcohol use or recreational drug use. Patient is currently not working. No service. No recent travel. No animal e xposures. She did leave the hospital AMA in March 2017 and October 2017. Difficulties with ongoing medical noncompliance. Patient quit smoking 3 weeks ago. There is a dog in the home. Past Drug Use History: None Reported - Past Family History Father Family Medical History: Blood Disorder, Congestive Heart Failure (CHF), CVA/TIA, Deep Vein Thrombosis (DVT), Myocardial Infarction ([place]) Additional Family Medical History / Comment(s): polycythemia Mother Family Medical History: Congestive Heart Failure (CHF), Diabetes Mellitus, Deep Vein Thrombosis (DVT), Myocardial Infarction ([place]), Musculoskeletal Disorder Additional Family Medical History / Comment(s): DDD Sister(s) Family Medical History: No Reported History Brother(s) Family Medical History: No Reported History Son(s) Family Medical History: No Reported History Daughter(s) Family Medical History: No Reported History Medications and Allergies Home Medications Medication Instructions Recorded Confirmed Type FLUoxetine HCL [PROzac] 20 mg PO DAILY #30 capsule 08/20/15 06/24/18 Rx Metoprolol Tartrate [Lopressor] 50 mg PO BID #60 tab 08/20/15 06/24/18 Rx lamoTRIgine [LaMICtal] 200 mg PO DAILY 03/22/16 06/24/18 History Bumetanide 4 mg PO QAM 10/18/16 06/24/18 History Butalb/APAP/Caff 50-325-40Mg 1 tab PO Q4H PRN 10/18/16 06/24/18 History [Fioricet 50-325-40] Mirtazapine [Remeron] 45 mg PO HS 04/10/17 06/24/18 History ALPRAZolam [Xanax] 0.5 mg PO TID PRN 06/06/17 06/24/18 History Bumetanide [BUMEX] 2 mg PO DAILY@1200 09/16/17 06/24/18 History Pregabalin [Lyrica] 150 mg PO BID 09/16/17 06/24/18 History Baclofen [Lioresal] 20 mg PO Q8H PRN 10/09/17 06/24/18 History Morphine Sulfate ER [Ms Contin] 30 mg PO Q8H PRN 11/03/17 06/24/18 History Nystatin 100,000 Unit/gm Powd 1 applic TOPICAL BID 11/04/17 06/24/18 History [Mycostatin Powder] Promethazine/Dextromethorphan 5 ml PO Q6H PRN 11/04/17 06/24/18 History [Promethazine-Dm Solution] Docusate [Colace] 100 mg PO BID PRN #60 cap 11/10/17 06/24/18 Rx Potassium Chloride ER [K-Dur 20] 20 meq PO DAILY #30 tab.er.prt 11/10/17 06/24/18 Rx Sennosides-Docusate Sodium 2 tab PO BID PRN 12/07/17 06/24/18 History [Senokot-S] Hydrocodone/Acetaminophen [[place] 1 tab PO Q6H PRN 3 Days #12 tab 12/09/17 06/24/18 Rx 10-325] Warfarin [Coumadin] 10 mg PO HS 01/20/18 06/24/18 History Ipratropium-Albuterol Nebulize 3 ml INHALATION RT-QID PRN 05/22/18 06/24/18 History [Duoneb 0.5 mg-3 mg/3 ml Soln] Meclizine HCl 25 mg PO TID PRN 05/22/18 06/24/18 History Ondansetron [Zofran ODT] 4 mg PO BID 06/24/18 06/24/18 History Warfarin Sodium [Coumadin] 2 mg PO HS 06/24/18 06/24/18 History Allergies Allergy/AdvReac Type Severity Reaction Status Date / Time ketorolac tromethamine Allergy Severe Anaphylaxis Verified 06/24/18 18:04 [From Toradol] Opioids - Morphine Analogues Allergy Mild Itching Verified 06/24/18 18:04 Iodinated Contrast- Oral and Allergy Unknown Verified 06/24/18 18:04 IV Dye rivaroxaban [From Xarelto] Allergy Rash/Hives Verified 06/24/18 18:04 sumatriptan [From Imitrex] Allergy Anaphylaxis Verified 06/24/18 18:04 sumatriptan succinate Allergy Anaphylaxis Verified 06/24/18 18:04 [From Imitrex] tramadol Allergy Anaphylaxis Verified 06/24/18 18:04 morphine AdvReac Severe Itching Verified 06/24/18 18:04 iodine AdvReac Intermediate Itching Verified 06/24/18 18:04 vancomycin AdvReac Itching Verified 06/24/18 18:04 Rich wipes Allergy Severe Rash/Hives Uncoded 06/24/18 17:34 Physical Exam Vitals: Vital Signs Temp Pulse Pulse Resp BP BP Pulse Ox 06/25/18 09:11 82 06/25/18 09:03 80 97 06/25/18 07:27 69 14 06/25/18 07:25 98.2 F 69 14 115/80 100 06/25/18 04:02 98.5 F 78 18 111/76 97 06/24/18 22:38 98.5 F 76 18 120/83 95 06/24/18 21:59 77 06/24/18 21:47 76 06/24/18 19:13 86 18 133/86 96 06/24/18 18:05 18 06/24/18 17:32 98.0 F 84 18 129/68 94 L Intake and Output 06/24/18 06/25/18 06/25/18 22:59 06:59 14:59 Intake Total 657 Balance 657 Intake: Oral 657 Other: # Voids 1 1 Weight 104.326 kg GENERAL EXAM: Morbidly obese 48-year-old female. Alert, active, comfortable in no apparent distress. HEAD: Normocephalic. EYES: Normal reaction of pupils, equal size. NOSE: Clear with pink turbinates. THROAT: Crowding of the posterior pharynx. No erythema or exudates. NECK: No masses, no JVD. CHEST: No chest wall deformity. LUNGS: Equal air entry with no crackles, wheeze, rhonchi or dullness. Diminished more so in the right lung. CVS: S1 and S2 normal with no audible murmur, regular rhythm. ABDOMEN: No hepatosplenomegaly, normal bowel sounds, no guarding or rigidity. SPINE: No scoliosis or deformity SKIN: No rashes CENTRAL NERVOUS SYSTEM: No focal deficits, tone is normal in all 4 extremities. EXTREMITIES: There is trace peripheral edema. No clubbing, no cyanosis. Peripheral pulses are intact. Results - Laboratory Findings CBC and BMP: 06/24/18 19:05 06/25/18 04:34 PT/INR, D-dimer PT 15.5 sec (9.0-12.0) H 06/25/18 09:14 INR 1.5 (<1.2) H 06/25/18 09:14 Abnormal lab findings: Abnormal Labs 06/24/18 06/24/18 06/24/18 19:05 19:05 19:05 WBC 12.5 H PT 14.9 H INR 1.5 H Potassium 3.1 L Chloride 109 H Glucose 109 H 06/25/18 06/25/18 00:24 09:14 WBC PT 15.5 H INR 1.5 H Potassium 3.3 L Chloride Glucose - Diagnostic Findings Chest x-ray: image reviewed Assessment and Plan Assessment: Impression: #1 Right-sided chest pain suspect pleuritic in nature. #2 Interstitial lung disease, biopsy-proven sarcoidosis. #3 Chronic obstructive pulmonary disease, currently inactive and stable. #4 Chronic hypoxic respiratory failure secondary to above, currently inactive and stable. #5 Sarcoidosis confirmed by lung biopsy at [facility] 2014. #6 Previous management liter dependent respiratory failure and previous pneumonias with bronchoscopies positive for MRSA, Enterococcus faecalis and staphylococcal species. #7 history of PE/DVT, anticoagulated with warfarin, currently subtherapeutic. #8 History of viral meningitis.. #9 Coronary artery disease with previous NC. #10 Hypertension. #11 Hyperlipidemia. #12 Bipolar disorder. #13 Chronic pain syndrome currently on morphine in the outpatient setting. #14 Morbid obesity. Plan: The patient was seen and evaluated by Dr. Noyola. Chest x-ray and labs were reviewed. Evidence of interstitial lung disease in the form of sarcoidosis. She does have some right sided pleuritic type pain. We'll initiate steroids. Obtain a sputum culture if possible. Continue bronchodilators. We will continue to follow and make further recommendations based on her clinical status. I, the cosigning physician, performed a history & physical examination of the patient. Lungs sounds are clear, diminished. Maintaining good O2 saturations in the 90s on 2 L/m per nasal cannula. I discussed the assessment and plan of care with my nurse practitioner, Nicki Roper. I attest to the above note as dictated by her. Time with Patient: Greater than 30
--- NOTE | 2018-06-25 13:23 | P.HPIM ---
History of Present Illness this is a pleasant 48 years old female with past medical history of COPD, congestive heart failure, DVT, hyperlipidemia, coronary artery disease, hypertension, pulmonary embolism, hypothyroidism,polycythemia, fibromyalgia, bipolar disorder. This time patient presents with right-sided chest pain, very low right breast, radiating to the back, about 4-5 days duration, pretty severe as per patient and start radiating up towards last couple days. Associated with some cough and flow #for the last 2-3 days. And associated with dyspnea. No other complaints. No dizziness or abdominal pain or change in urine or bowel habits. No fever. patient on home oxygen about 3 L via NC. patient about this looks stable, she is saturating 100% on 2 L oxygen. Labs showing mild leukocytosis of 12.5 K, INR 1.5,creatinine is normal 0.7, potassium 3.9, serial negative troponins.chest x-ray: Mild interstitial lung edema. EKG showing normal sinus rhythm at 76, no significant ST-T changes.she is currently on diuretic as Bumex. Review of Systems CONSTITUTIONAL: No fever, no malaise, no fatigue. HEENT: No recent visual problems or hearing problems. Denied any sore throat. CARDIOVASCULAR: No orthopnea, PND, no palpitations, no syncope. PULMONARY: no hemoptysis. GASTROINTESTINAL: No diarrhea, no nausea, no vomiting, no abdominal pain. Normoactive bowel sounds. NEUROLOGICAL: No headaches, no weakness, no numbness. HEMATOLOGICAL: Denies any bleeding or petechiae. GENITOURINARY: Denies any burning micturition, frequency, or urgency. MUSCULOSKELETAL/RHEUMATOLOGICAL: Denies any joint pain, swelling, or any muscle pain. ENDOCRINE: Denies any polyuria or polydipsia. Past Medical History Past Medical History: Blood Disorder, Heart Failure, COPD, Deep Vein Thrombosis (DVT), Hyperlipidemia, Hypertension, Myocardial Infarction ([place]), Musculoskeletal Disorder, Pneumonia, Pulmonary Embolus (PE), Thyroid Disorder Additional Past Medical History / Comment(s): PE 2012; Sarcoidosis diagnosed in 2015 following a bronchoscopy and lung biopsy done at [facility] and she was started on predniosone and she took the therapy for almost 1 year, polycythemia, overweight, bilateral PE (2011, 2015), bilateral DVTs, fibromyalgia, bipolar disorder, degenerative disk disorder, coronary artery disease along with previous history of a [place] and ventilator dependent respiratory failure with MRSA pneumonia for which the patient was hospitalized [facility] in 2012. Viral meningitis in October 2014. Pulmonary fibrosis, home 02 3l n/c Last Myocardial Infarction Date:: February 15, 2013 History of Any Multi-Drug Resistant Organisms: MRSA Date of last positivie culture/infection: 11/09/17 MDRO Source:: PLEURAL FLUID Past Surgical History: Section, Cholecystectomy, Heart Catheterization, Hernia Repair, Orthopedic Surgery Additional Past Surgical History / Comment(s): Lt ankle surgery, several bronchosopy-most recently 11/09/17 Past Anesthesia/Blood Transfusion Reactions: Motion Sickness, Postoperative Nausea & Vomiting (PONV) Additional Past Anesthesia/Blood Transfusion Reaction / Comment(s): previously charted -pt stated that last April she coded due to anesthetic Past Psychological History: Anxiety, Bipolar, Depression, Panic Disorder Additional Psychological History / Comment(s): and lives in the family home with her . No recent travel. No experience Smoking Status: Former smoker Past Alcohol Use History: None Reported Additional Past Alcohol Use History / Comment(s): patient lives with her significant other. last admit 11-03-17 pt was smoking 1ppd- pt's celia stated she continues to smoked but he's not suere how much and it depends on how stressed she gets". denies alcohol use or recreational drug use. Patient is currently not working. No service. No recent travel. No animal exposures. She did leave the hospital AMA in March 2017 and October 2017. Difficulties with ongoing medical noncompliance. Patient quit smoking 3 weeks ago. There is a dog in the home. Past Drug Use History: None Reported - Past Family History Father Family Medical History: Blood Disorder, Congestive Heart Failure (CHF), CVA/TIA, Deep Vein Thrombosis (DVT), Myocardial Infarction ([place]) Additional Family Medical History / Comment(s): polycythemia Mother Family Medical History: Congestive Heart Failure (CHF), Diabetes Mellitus, Deep Vein Thrombosis (DVT), Myocardial Infarction ([place]), Musculoskeletal Disorder Additional Family Medical History / Comment(s): DDD Sister(s) Family Medical History: No Reported History Brother(s) Family Medical History: No Reported History Son(s) Family Medical History: No Reported History Daughter(s) Family Medical History: No Reported History Medications and Allergies Home Medications Medication Instructions Recorded Confirmed Type FLUoxetine HCL [PROzac] 20 mg PO DAILY #30 capsule 08/20/15 06/24/18 Rx Metoprolol Tartrate [Lopressor] 50 mg PO BID #60 tab 08/20/15 06/24/18 Rx lamoTRIgine [LaMICtal] 200 mg PO DAILY 03/22/16 06/24/18 History Bumetanide 4 mg PO QAM 10/18/16 06/24/18 History Butalb/APAP/Caff 50-325-40Mg 1 tab PO Q4H PRN 10/18/16 06/24/18 History [Fioricet 50-325-40] Mirtazapine [Remeron] 45 mg PO HS 04/10/17 06/24/18 History ALPRAZolam [Xanax] 0.5 mg PO TID PRN 06/06/17 06/24/18 History Bumetanide [BUMEX] 2 mg PO DAILY@1200 09/16/17 06/24/18 History Pregabalin [Lyrica] 150 mg PO BID 09/16/17 06/24/18 History Baclofen [Lioresal] 20 mg PO Q8H PRN 10/09/17 06/24/18 History Morphine Sulfate ER [Ms Contin] 30 mg PO Q8H PRN 11/03/17 06/24/18 History Nystatin 100,000 Unit/gm Powd 1 applic TOPICAL BID 11/04/17 06/24/18 History [Mycostatin Powder] Promethazine/Dextromethorphan 5 ml PO Q6H PRN 11/04/17 06/24/18 History [Promethazine-Dm Solution] Docusate [Colace] 100 mg PO BID PRN #60 cap 11/10/17 06/24/18 Rx Potassium Chloride ER [K-Dur 20] 20 meq PO DAILY #30 tab.er.prt 11/10/17 06/24/18 Rx Sennosides-Docusate Sodium 2 tab PO BID PRN 12/07/17 06/24/18 History [Senokot-S] Hydrocodone/Acetaminophen [[place] 1 tab PO Q6H PRN 3 Days #12 tab 12/09/17 06/24/18 Rx 10-325] Warfarin [Coumadin] 10 mg PO HS 01/20/18 06/24/18 History Ipratropium-Albuterol Nebulize 3 ml INHALATION RT-QID PRN 05/22/18 06/24/18 History [Duoneb 0.5 mg-3 mg/3 ml Soln] Meclizine HCl 25 mg PO TID PRN 05/22/18 06/24/18 History Ondansetron [Zofran ODT] 4 mg PO BID 06/24/18 06/24/18 History Warfarin Sodium [Coumadin] 2 mg PO HS 06/24/18 06/24/18 History Allergies Allergy/AdvReac Type Severity Reaction Status Date / Time ketorolac tromethamine Allergy Severe Anaphylaxis Verified 06/24/18 18:04 [From Toradol] Opioids - Morphine Analogues Allergy Mild Itching Verified 06/24/18 18:04 Iodinated Contrast- Oral and Allergy Unknown Verified 06/24/18 18:04 IV Dye rivaroxaban [From Xarelto] Allergy Rash/Hives Verified 06/24/18 18:04 sumatriptan [From Imitrex] Allergy Anaphylaxis Verified 06/24/18 18:04 sumatriptan succinate Allergy Anaphylaxis Verified 06/24/18 18:04 [From Imitrex] tramadol Allergy Anaphylaxis Verified 06/24/18 18:04 morphine AdvReac Severe Itching Verified 06/24/18 18:04 iodine AdvReac Intermediate Itching Verified 06/24/18 18:04 vancomycin AdvReac Itching Verified 06/24/18 18:04 Rich wipes Allergy Severe Rash/Hives Uncoded 06/24/18 17:34 Physical Exam Vitals: Vital Signs Temp Pulse Pulse Resp BP BP Pulse Ox 06/25/18 12:36 89 06/25/18 12:26 89 06/25/18 09:11 82 06/25/18 09:03 80 97 06/25/18 07:27 69 14 06/25/18 07:25 98.2 F 69 14 115/80 100 06/25/18 04:02 98.5 F 78 18 111/76 97 06/24/18 22:38 98.5 F 76 18 120/83 95 06/24/18 21:59 77 06/24/18 21:47 76 06/24/18 19:13 86 18 133/86 96 06/24/18 18:05 18 03/25/19 17:32 98.0 F 84 18 129/68 94 L Intake and Output 06/24/18 06/25/18 06/25/18 22:59 06:59 14:59 Intake Total 657 Balance 657 Intake: Oral 657 Other: # Voids 1 1 Weight 104.326 kg GENERAL: The patient is alert and oriented x3, not in any acute distress. Well developed, well nourished. HEENT: Pupils are round and equally reacting to light. EOMI. No scleral icterus. No conjunctival pallor. Normocephalic, atraumatic. No pharyngeal erythema. No thyromegaly. CARDIOVASCULAR: S1 and S2 present. No murmurs, rubs, or gallops. -PULMONARY: Chest is clear to auscultation, mild bilateral scattered wheezing . no crackles. ABDOMEN: Soft, nontender, nondistended, normoactive bowel sounds. No palpable organomegaly. MUSCULOSKELETAL: No joint swelling or deformity. EXTREMITIES: No cyanosis, clubbing, or pedal edema. NEUROLOGICAL: Gross neurological examination did not reveal any focal deficits. SKIN: No rashes. Results CBC & Chem 7: 06/24/18 19:05 06/25/18 04:34 Labs: Abnormal Lab Results - Last 24 Hours (Table) 06/24/18 06/24/18 06/24/18 Range/Units 19:05 19:05 19:05 WBC 12.5 H (3.8-10.6) k/uL PT 14.9 H (9.0-12.0) sec INR 1.5 H (<1.2) Potassium 3.1 L (3.5-5.1) mmol/L Chloride 109 H (98-107) mmol/L Glucose 109 H (74-99) mg/dL 06/25/18 06/25/18 Range/Units 00:24 09:14 WBC (3.8-10.6) k/uL PT 15.5 H (9.0-12.0) sec INR 1.5 H (<1.2) Potassium 3.3 L (3.5-5.1) mmol/L Chloride (98-107) mmol/L Glucose (74-99) mg/dL Thrombosis Risk Factor Assmnt - Choose All That Apply Any of the Below Risk Factors Present?: Yes Each Factor Represents 1 point: Obesity (BMI >25) Thrombosis Risk Factor Assessment Total Risk Factor Score: 1 Thrombosis Risk Factor Assessment Level: Low Risk Assessment and Plan Assessment: right sided pleuritic chest pain, mostly related to infection, COPD, in mild to moderate acute exacerbation sarcoidosis with history of pulmonary fibrosis History of congestive heart failure 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 Plan: this is a pleasant 48 years old female who presents with right-sided chest pain. Looks pleuritic in nature. Pulmonary consult is appreciated. Continue with steroids and pain management.continue with antibiotic given her leukocytosis. Also will bridge her subhepatic INR with Lovenox, which she usually takes when this happens. She is on high-dose of Coumadin a 12 mg at home. She is on Coumadin pharmacy to dose now. Labs and medication were reviewed.. Continue same treatment. Continue with symptomatic treatment. Resume home medication. Monitor lytes and vitals. DVT and GI prophylaxis. Further recommendations of the clinical course of the patient DVT prophylaxis: on warfarin GI Prophylaxis: Pepcid Prognosis is guarded
[2018-06-25] MEDS: methylPREDNISolone SOD SUCCI 125 MG/2 ML VIAL IV SCH ×3 (15:31→23:36)
[2018-06-25] MEDS: ENOXAPARIN 100 MG/ML SYRINGE SQ SCH ×2 (15:31→20:47)
[2018-06-25] MEDS ORDERED: WARFARIN 5 MG TAB PO ONE (18:00)
[2018-06-25 20:19] LABS: Glucose,Whole Blood 175 mg/dL (75-99)
[2018-06-25] MEDS: IPRATROPIUM-ALBUTEROL 3 ML NEB INHALATION SCH (20:26)
[2018-06-25] MEDS: SODIUM CHLORIDE 0.9% 1,000 ML IV SCH (20:46)
[2018-06-25] MEDS: MIRTAZAPINE 15 MG TAB PO SCH (20:46)
[2018-06-25] MEDS: INSULIN ASPART (NovoLOG) 100 UNIT/ML VIAL SQ SCH (20:46)
[2018-06-25] MEDS: DOXYCYCLINE 100 MG CAP PO SCH (20:46)
[2018-06-26] MEDS: MORPHINE SULFATE 4 MG/ML SYRINGE IV PRN ×6 (04:00→20:39)
[2018-06-26] MEDS: methylPREDNISolone SOD SUCCI 125 MG/2 ML VIAL IV SCH ×3 (05:36→17:26)
[2018-06-26 06:55] LABS: Glucose,Whole Blood 147 mg/dL (75-99)
[2018-06-26] MEDS: INSULIN ASPART (NovoLOG) 100 UNIT/ML VIAL SQ SCH ×4 (07:12→20:40)
[2018-06-26] MEDS: POTASSIUM CHLORIDE ER 20 MEQ TAB.ER PO SCH (07:13)
[2018-06-26] MEDS: METOPROLOL TARTRATE 50 MG TAB PO SCH ×2 (07:13→20:34)
[2018-06-26] MEDS: lamoTRIgine 100 MG TAB PO SCH (07:13)
[2018-06-26] MEDS: BUMETANIDE 1 MG TAB PO SCH ×2 (07:13→12:03)
[2018-06-26] MEDS: PREGABALIN 75 MG CAP PO SCH ×2 (07:13→20:40)
[2018-06-26] MEDS: DOXYCYCLINE 100 MG CAP PO SCH ×2 (07:14→22:10)
[2018-06-26] MEDS: ENOXAPARIN 100 MG/ML SYRINGE SQ SCH (07:14)
[2018-06-26] MEDS: NYSTATIN 100,000 UNIT/GM POWD 15 GM TOPICAL SCH ×2 (07:15→22:11)
[2018-06-26] MEDS: IPRATROPIUM-ALBUTEROL 3 ML NEB INHALATION SCH ×4 (08:11→19:09)
[2018-06-26] MEDS: ALPRAZolam 0.5 MG TAB PO PRN ×2 (08:44→17:27)
[2018-06-26 09:22] LABS: Basophils % (A) 0 %; Eosinophils # (A) 0.1 k/uL (0-0.7); Eosinophils % (A) 1 %; Lymphocytes # (A) 1.4 k/uL (1.0-4.8); Lymphocytes % (A) 11 %; MCH 30.6 pg (25.0-35.0); MCHC 33.4 g/dL (31.0-37.0); MCV 91.7 fL (80.0-100.0); Monocytes # (A) 0.2 k/uL (0-1.0); Monocytes % (A) 2 %; Neutrophils # (A) 10.2 k/uL (1.3-7.7); Neutrophils % (A) 85 %; Platelet Count 300 k/uL (150-450); RBC 4.91 m/uL (3.80-5.40); RDW 15.2 % (11.5-15.5)
[2018-06-26 09:24] LABS: INR 2.5 (<1.2); Prothrombin Time 23.8 sec (9.0-12.0)
[2018-06-26 09:33] LABS: Anion Gap 12 mmol/L; Blood Urea Nitrogen 17 mg/dL (7-17); Calcium 8.7 mg/dL (8.4-10.2); Carbon Dioxide 20 mmol/L (22-30); Chloride 106 mmol/L (98-107); Glucose 211 mg/dL (74-99); Sodium 138 mmol/L (137-145)
[2018-06-26 09:56] LABS: Magnesium 1.6 mg/dL (1.6-2.3); Potassium 4.2 mmol/L (3.5-5.1)
[2018-06-26] MEDS: PROMETHAZ-COD 6.25-10 MG/5 ML 5 ML CUP PO PRN ×2 (11:20→17:26)
[2018-06-26 11:30] LABS: Glucose,Whole Blood 147 mg/dL (75-99)
[2018-06-26] MEDS ORDERED: VANCOMYCIN IV PER PHARMACY 1 EACH MISC MISCELLANE PRN (13:56)
[2018-06-26] MEDS: diphenhydrAMINE 50 MG/ML 1 ML VIAL IVP SCH ×2 (15:19→22:44)
[2018-06-26] MEDS: VANCOMYCIN 1,500 MG in SODIUM CHLORIDE 0.9% 250 ML IVPB SCH ×2 (15:19→22:59)
--- NOTE | 2018-06-26 15:46 | P.PN ---
Subjective Progress Note Date: 06/26/18 Principal diagnosis: Acute exacerbation of chronic obstructive pulmonary disease. This is a very pleasant 48-year-old female patient who follows with Dr. Koch as her primary care physician. She has a history of bipolar disorder, fibromyalgia, coronary artery disease with previous [place], hypertension, hyperlipidemia, chronic pain and chronic narcotic use, chronic obstructive pulmonary disease. Previous PE/DVT and anticoagulated with warfarin. She also has a history of biopsy-proven sarcoidosis. She's had ventilator-dependent respiratory failure and bronchoscopies in the past which have grown MRSA, Enterococcus faecalis and Staphylococcus species. Last bronchoscopy 6 months ago. She presented to the emergency room on 06/22/2018 with complaints of right-sided chest discomfort and pain on inspiration. She was given steroids and pain medication. She represented here yesterday with similar symptoms. Not much improvement. Chest x-ray shows some changes of mild interstitial edema. No major atelectasis or evidence of pneumonia. White count 12.5. Hemoglobin 14.9. INR 1.5. Creatinine 0.74. Troponins negative 3. EKG showed no ST or T wave abnormalities. She is seen today on the regular medical floor and consultation. She is awake and alert in no acute distress. She is still having ongoing issues with right-sided chest discomfort more so with deep inhalation. She has a loose nonproductive cough. No fever chills or night sweats. Maintaining good O2 saturations up to 100% on 2 L/m per nasal cannula. She's afebrile. Hemodynamically stable. She has been initiated on bronchodilators and promethazine. She has been requesting pain medications. She's currently on morphine 4 mg IV every 4 hours. The patient is seen today 06/26/2018 in follow-up on the selective care unit. She is awake and alert in no acute distress. She is still dyspneic with minimal exertion. She still has a loose nonproductive cough. No chills or night sweats. She is maintaining O2 saturations in the upper 90s on 4 L/m per nasal cannula. She remains afebrile. Hemodynamically stable. White count 12.0. Hemoglobin 15.0. INR 2.5. Creatinine 0.61. She remains on DuoNeb inhalations, IV Solu-Medrol, antibiotics. Objective - Vital Signs Vital signs: Vital Signs Temp 98.0 F 06/26/18 07:00 Pulse 88 06/26/18 12:41 Resp 20 06/26/18 07:15 BP 123/80 06/26/18 07:00 Pulse Ox 96 06/26/18 08:17 Intake & Output 06/25/18 06/26/18 06/26/18 18:59 06:59 18:59 Intake Total 1019 140 Balance 1019 140 Intake: Intake, IV Titration 140 140 Amount Sodium Chloride 0.9% 1, 140 140 000 ml @ 20 mls/hr IV . Q24H [facility] Rx#:[id number] Oral 879 - Exam GENERAL EXAM: Morbidly obese 48-year-old female. Alert, active, comfortable in no apparent distress. HEAD: Normocephalic. EYES: Normal reaction of pupils, equal size. NOSE: Clear with pink turbinates. THROAT: Crowding of the posterior pharynx. No erythema or exudates. NECK: No masses, no JVD. CHEST: No chest wall deformity. LUNGS: Equal air entry with no crackles, wheeze, rhonchi or dullness. Diminished more so in the right lung. CVS: S1 and S2 normal with no audible murmur, regular rhythm. ABDOMEN: No hepatosplenomegaly, normal bowel sounds, no guarding or rigidity. SPINE: No scoliosis or deformity SKIN: No rashes CENTRAL NERVOUS SYSTEM: No focal deficits, tone is normal in all 4 extremities. EXTREMITIES: There is trace peripheral edema. No clubbing, no cyanosis. Peripheral pulses are intact. - Labs CBC & Chem 7: 06/26/18 08:57 06/26/18 08:57 Labs: Abnormal Lab Results - Last 24 Hours (Table) 06/25/18 06/26/18 06/26/18 Range/Units 20:17 06:53 08:57 WBC (3.8-10.6) k/uL Neutrophils # (1.3-7.7) k/uL PT 23.8 H (9.0-12.0) sec INR 2.5 H (<1.2) Carbon Dioxide (22-30) mmol/L Glucose (74-99) mg/dL POC Glucose (mg/dL) 175 H 147 H (75-99) mg/dL 03/27/19 03/27/19 03/27/19 Range/Units 08:57 08:57 11:28 WBC 12.0 H (3.8-10.6) k/uL Neutrophils # 10.2 H (1.3-7.7) k/uL PT (9.0-12.0) sec INR (<1.2) Carbon Dioxide 20 L (22-30) mmol/L Glucose 211 H (74-99) mg/dL POC Glucose (mg/dL) 147 H (75-99) mg/dL Assessment and Plan Assessment: Impression: #1 Right-sided chest pain suspect pleuritic in nature. #2 Interstitial lung disease, biopsy-proven sarcoidosis. #3 Acute exacerbation of chronic obstructive pulmonary disease #4 Acute on chronic hypoxic respiratory failure secondary to above. #5 Sarcoidosis confirmed by lung biopsy at [facility] 2014. #6 Previous management liter dependent respiratory failure and previous pneumonias with bronchoscopies positive for MRSA, Enterococcus faecalis and staphylococcal species. #7 history of PE/DVT, anticoagulated with warfarin, currently subtherapeutic. #8 History of viral meningitis.. #9 Coronary artery disease with previous [place]. #10 Hypertension. #11 Hyperlipidemia. #12 Bipolar disorder. #13 Chronic pain syndrome currently on morphine in the outpatient setting. #14 Morbid obesity. Plan: The patient was seen and evaluated by Dr. Noyola. The patient is improved from the pulmonary standpoint. Less bronchospastic and wheezing. She herself does not feel that much better though. We'll go ahead and add vancomycin with her history of MRSA. No plans for bronchoscopy at this point. Obtain a sputum culture if possible. Continue bronchodilators and steroids. We will continue to follow and make further recommendations based on her clinical status. I, the cosigning physician, performed a history & physical examination of the patient. Lungs sounds are clear, diminished. Maintaining good O2 saturations in the 90s on 4 L/m per nasal cannula. I discussed the assessment and plan of care with my nurse practitioner, Nicki Roper. I attest to the above note as dictated by her.
[2018-06-26 16:40] LABS: Glucose,Whole Blood 143 mg/dL (75-99)
--- NOTE | 2018-06-26 17:54 | P.PN ---
Subjective Progress Note Date: 06/26/18 Hospital course:this is a pleasant 48 years old female with past medical history of COPD, congestive heart failure, DVT, hyperlipidemia, coronary artery disease, hypertension, pulmonary embolism, hypothyroidism,polycythemia, fibromyalgia, bipolar disorder. This time patient presents with right-sided chest pain, very low right breast, radiating to the back, about 4-5 days duration, pretty severe as per patient and start radiating up towards last couple days. Associated with some cough and flow #for the last 2-3 days. And associated with dyspnea. No other complaints. No dizziness or abdominal pain or change in urine or bowel habits. No fever. patient on home oxygen about 3 L via [place]. patient about this looks stable, she is saturating 100% on 2 L oxygen. Labs showing mild leukocytosis of 12.5 K, INR 1.5,creatinine is normal 0.7, potassium 3.9, serial negative troponins.chest x-ray: Mild interstitial lung edema. EKG showing normal sinus rhythm at 76, no significant ST-T changes.she is currently on diuretic as Bumex. 06/26/2018 maintained on nebulized bronchodilators, IV steroids, IV antibiotics. Blood sugars controlled. Maintaining O2 sats in the high 90s on 4 L nasal cannula. Short of breath with minimal exertion. Nonproductive cough, occasional brown sputum reported. Afebrile. Denies chest pain, palpitations. Objective - Vital Signs Vital signs: Vital Signs Temp 97.9 F 06/26/18 15:15 Pulse 80 06/26/18 16:18 Resp 20 06/26/18 16:00 BP 120/78 06/26/18 15:15 Pulse Ox 95 06/26/18 15:15 Intake & Output 06/25/18 06/26/18 06/26/18 18:59 06:59 18:59 Intake Total 1019 140 Balance 1019 140 Intake: Intake, IV Titration 140 140 Amount Sodium Chloride 0.9% 1, 140 140 000 ml @ 20 mls/hr IV . Q24H [facility] Rx#:[id number] Oral 879 - Exam GENERAL: The patient is alert and oriented x3, not in any acute distress. HEENT: Pupils are round and equally reacting to light. EOMI. No scleral icterus. No conjunctival pallor. Normocephalic, atraumatic. CARDIOVASCULAR: S1 and S2 present. No murmurs, rubs, or gallops. -PULMONARY: Chest is clear to auscultation, diminished with mild bilateral scattered wheezing . no crackles. ABDOMEN: Soft, nontender, nondistended, normoactive bowel sounds. No palpable organomegaly. MUSCULOSKELETAL: No joint swelling or deformity. EXTREMITIES: No cyanosis, clubbing, mild pedal edema. NEUROLOGICAL: Gross neurological examination did not reveal any focal deficits. SKIN: No rashes. - Labs CBC & Chem 7: 06/26/18 08:57 06/26/18 08:57 Labs: Abnormal Lab Results - Last 24 Hours (Table) 06/25/18 06/26/18 06/26/18 Range/Units 20:17 06:53 08:57 WBC (3.8-10.6) k/uL Neutrophils # (1.3-7.7) k/uL PT 23.8 H (9.0-12.0) sec INR 2.5 H (<1.2) Carbon Dioxide (22-30) mmol/L Glucose (74-99) mg/dL POC Glucose (mg/dL) 175 H 147 H (75-99) mg/dL 06/26/18 06/26/18 06/26/18 Range/Units 08:57 08:57 11:28 WBC 12.0 H (3.8-10.6) k/uL Neutrophils # 10.2 H (1.3-7.7) k/uL PT (9.0-12.0) sec INR (<1.2) Carbon Dioxide 20 L (22-30) mmol/L Glucose 211 H (74-99) mg/dL POC Glucose (mg/dL) 147 H (75-99) mg/dL 06/26/18 Range/Units 16:39 WBC (3.8-10.6) k/uL Neutrophils # (1.3-7.7) k/uL PT (9.0-12.0) sec INR (<1.2) Carbon Dioxide (22-30) mmol/L Glucose (74-99) mg/dL POC Glucose (mg/dL) 143 H (75-99) mg/dL Assessment and Plan Assessment: right sided pleuritic chest pain, mostly related to infection, COPD, in mild to moderate acute exacerbation Acute on chronic hypoxic respiratory failure secondary to the above sarcoidosis with history of pulmonary fibrosis History of congestive heart failure History of bilateral DVT and bilateral PE on warfarin Hyperlipidemia Essential hypertension History of coronary artery disease History of polycythemia Fibromyalgia History of bipolar disorder. Plan: Continue on current medication regime , Pepcid, monitoring and symptomatic treatment. INR up to 2.5, Lovenox discontinued. Daily PT INR . Maintained on Coumadin per pharmacy dosing. Continues on nebulized bronchodilators, IV steroids, antibiotics-including vancomycin. Aggressive pulmonary toileting. Patient requesting bronchoscopy-no plans for bronchoscopy at this time as per pulmonary. The impression and plan of care has been dictated as directed. : I performed a history and examination of this patient, discussed the same with the dictator. I agree with the dictator's note ,documented as a scribe. Any additional findings or plans will be noted.
[2018-06-26] MEDS ORDERED: WARFARIN 3 MG TAB PO SCH (18:00)
[2018-06-26 20:10] LABS: Glucose,Whole Blood 204 mg/dL (75-99)
[2018-06-26] MEDS: MIRTAZAPINE 15 MG TAB PO SCH (20:40)
[2018-06-26] MEDS: SODIUM CHLORIDE 0.9% 1,000 ML IV SCH (22:10)
[2018-06-27] MEDS: methylPREDNISolone SOD SUCCI 125 MG/2 ML VIAL IV SCH ×5 (01:22→23:00)
[2018-06-27] MEDS: PROMETHAZ-COD 6.25-10 MG/5 ML 5 ML CUP PO PRN ×4 (01:25→21:26)
[2018-06-27] MEDS: MORPHINE SULFATE 4 MG/ML SYRINGE IV PRN ×8 (01:25→22:53)
[2018-06-27] MEDS: ALPRAZolam 0.5 MG TAB PO PRN ×2 (05:54→12:05)
[2018-06-27 07:05] LABS: Glucose,Whole Blood 172 mg/dL (75-99)
[2018-06-27] MEDS: diphenhydrAMINE 50 MG/ML 1 ML VIAL IVP SCH ×3 (07:31→22:54)
[2018-06-27] MEDS: INSULIN ASPART (NovoLOG) 100 UNIT/ML VIAL SQ SCH ×4 (07:35→21:27)
[2018-06-27] MEDS: METOPROLOL TARTRATE 50 MG TAB PO SCH ×2 (07:36→21:30)
[2018-06-27] MEDS: lamoTRIgine 100 MG TAB PO SCH (07:36)
[2018-06-27] MEDS: POTASSIUM CHLORIDE ER 20 MEQ TAB.ER PO SCH (07:36)
[2018-06-27] MEDS: DOXYCYCLINE 100 MG CAP PO SCH ×2 (07:38→21:26)
[2018-06-27] MEDS: BUMETANIDE 1 MG TAB PO SCH ×2 (07:38→12:04)
[2018-06-27] MEDS: PREGABALIN 75 MG CAP PO SCH ×2 (07:39→21:26)
[2018-06-27] MEDS: VANCOMYCIN 1,500 MG in SODIUM CHLORIDE 0.9% 250 ML IVPB SCH ×3 (07:39→23:00)
[2018-06-27] MEDS: NYSTATIN 100,000 UNIT/GM POWD 15 GM TOPICAL SCH ×2 (07:39→21:28)
[2018-06-27] MEDS: IPRATROPIUM-ALBUTEROL 3 ML NEB INHALATION SCH ×4 (07:50→20:28)
--- NOTE | 2018-06-27 08:03 | CDI ---
Documentation Clarification Form Date: 06/27/2018 From: Adeline Benson Contact: [email or web address] Admit Date: 06/26/2018 1:36:00 PM Patient Name: Meme Jones Visit Number: [id number] Discharge Date: ATTENTION: The Clinical Documentation Specialists (CDI) and [facility] Coding Staff appreciate your assistance in clarifying documentation. Please respond to the clarification below the line at the bottom and electronically sign. The CDI & [facility] Coding staff will review the response and follow-up if needed. Please note: Queries are made part of the Legal Health Record. If you have any questions, please contact the author of this message via ITS. Dr. Souza Sheet: The patient presented with right sided chest pain. Your notes indicate 'right sided pleuritic chest pain, mostly related to infection'. Please further specify the type of infection suspected. History/Risk Factors: COPD, O2 dep, Sarcoidosis, MRSA pneumonia history, CHF Clinical Indicators: Labs: WBC on admission 12.5 Radiology findings on 06/24: pulmonary vascular congestion, no evidence of pneumonia Vital Signs: on admission 98.0, 84, 18, 129/68, 94% 4L Treatment: Consults: Pulmonary IV steroids IV Vancomycin - added by Pulmonary d/t history of MRSA In your professional opinion, can you please clarify what you suspect is the infection causing the pleuritic chest pain? Suspected infection causing pleuritic chest pain, please specify Other cause of pleuritic chest pain, please specify Unable to determine (Last Revision: July 2017) DDx: possible infection , possible recurrent pulmonary embolism , or muskeloskeletal vs others MTDD
[2018-06-27 08:13] LABS: INR 2.8 (<1.2); Prothrombin Time 26.6 sec (9.0-12.0)
[2018-06-27 08:19] LABS: Basophils % (A) 0 %; Eosinophils # (A) 0.1 k/uL (0-0.7); Eosinophils % (A) 1 %; HCT 42.7 % (34.0-46.0); HGB 13.6 gm/dL (11.4-16.0); Lymphocytes # (A) 1.1 k/uL (1.0-4.8); Lymphocytes % (A) 9 %; MCH 29.5 pg (25.0-35.0); MCHC 31.9 g/dL (31.0-37.0); MCV 92.5 fL (80.0-100.0); Mean Platelet Volume 8.1; Monocytes # (A) 0.7 k/uL (0-1.0); Monocytes % (A) 6 %; Neutrophils # (A) 9.7 k/uL (1.3-7.7); Neutrophils % (A) 83 %; Platelet Count 250 k/uL (150-450); RBC 4.62 m/uL (3.80-5.40); RDW 14.6 % (11.5-15.5); WBC 11.6 k/uL (3.8-10.6)
[2018-06-27 09:00] LABS: Anion Gap 8 mmol/L; Blood Urea Nitrogen 17 mg/dL (7-17); Calcium 8.5 mg/dL (8.4-10.2); Carbon Dioxide 23 mmol/L (22-30); Chloride 108 mmol/L (98-107); Glucose 122 mg/dL (74-99); Sodium 139 mmol/L (137-145)
[2018-06-27 12:13] LABS: Glucose,Whole Blood 122 mg/dL (75-99)
--- NOTE | 2018-06-27 15:58 | P.PN ---
Subjective Progress Note Date: 06/27/18 Principal diagnosis: Acute exacerbation of chronic obstructive pulmonary disease. This is a very pleasant 48-year-old female patient who follows with Dr. Koch as her primary care physician. She has a history of bipolar disorder, fibromyalgia, coronary artery disease with previous [place], hypertension, hyperlipidemia, chronic pain and chronic narcotic use, chronic obstructive pulmonary disease. Previous PE/DVT and anticoagulated with warfarin. She also has a history of biopsy-proven sarcoidosis. She's had ventilator-dependent respiratory failure and bronchoscopies in the past which have grown MRSA, Enterococcus faecalis and Staphylococcus species. Last bronchoscopy 6 months ago. She presented to the emergency room on 06/22/2018 with complaints of right-sided chest discomfort and pain on inspiration. She was given steroids and pain medication. She represented here yesterday with similar symptoms. Not much improvement. Chest x-ray shows some changes of mild interstitial edema. No major atelectasis or evidence of pneumonia. White count 12.5. Hemoglobin 14.9. INR 1.5. Creatinine 0.74. Troponins negative 3. EKG showed no ST or T wave abnormalities. She is seen today on the regular medical floor and consultation. She is awake and alert in no acute distress. She is still having ongoing issues with right-sided chest discomfort more so with deep inhalation. She has a loose nonproductive cough. No fever chills or night sweats. Maintaining good O2 saturations up to 100% on 2 L/m per nasal cannula. She's afebrile. Hemodynamically stable. She has been initiated on bronchodilators and promethazine. She has been requesting pain medications. She's currently on morphine 4 mg IV every 4 hours. The patient is seen today 06/26/2018 in follow-up on the selective care unit. She is awake and alert in no acute distress. She is still dyspneic with minimal exertion. She still has a loose nonproductive cough. No chills or night sweats. She is maintaining O2 saturations in the upper 90s on 4 L/m per nasal cannula. She remains afebrile. Hemodynamically stable. White count 12.0. Hemoglobin 15.0. INR 2.5. Creatinine 0.61. She remains on DuoNeb inhalations, IV Solu-Medrol, antibiotics. The patient is seen today 06/27/2018 in follow-up on the selective care unit. She is currently sitting up in bed having lunch. Awake and alert in no acute distress. She has been slow to progress and feels she is not getting any better. She was started on vancomycin yesterday. Continues to maintain O2 saturations in the mid 90s on 3 L/m per nasal cannula. She's been afebrile. Hemodynamically stable. White count 11.6. Hemoglobin 13.6. INR 2.8. Creatinine 0.53. Objective - Vital Signs Vital signs: Vital Signs Temp 98.7 F 06/27/18 14:55 Pulse 78 06/27/18 14:55 Resp 15 06/27/18 14:55 BP 100/66 06/27/18 14:55 Pulse Ox 96 06/27/18 14:55 Intake & Output 06/26/18 06/27/18 06/27/18 18:59 06:59 18:59 Intake Total 736 1440 Balance 736 1440 Intake: Intake, IV Titration 140 Amount Sodium Chloride 0.9% 1, 140 000 ml @ 20 mls/hr IV . Q24H [facility] Rx#:[id number] Oral 596 1440 Other: Voiding Method Toilet # Voids 2 - Exam GENERAL EXAM: Morbidly obese 48-year-old female. Alert, comfortable in no apparent distress. On 3 L nasal cannula HEAD: Normocephalic. EYES: Normal reaction of pupils, equal size. NOSE: Clear with pink turbinates. THROAT: Crowding of the posterior pharynx. No erythema or exudates. NECK: No masses, no JVD. CHEST: No chest wall deformity. LUNGS: Equal air entry with no crackles, wheeze, rhonchi or dullness. Dimi nished more so in the right lung. CVS: S1 and S2 normal with no audible murmur, regular rhythm. ABDOMEN: No hepatosplenomegaly, normal bowel sounds, no guarding or rigidity. SPINE: No scoliosis or deformity SKIN: No rashes CENTRAL NERVOUS SYSTEM: No focal deficits, tone is normal in all 4 extremities. EXTREMITIES: There is trace peripheral edema. No clubbing, no cyanosis. Peripheral pulses are intact. - Labs CBC & Chem 7: 06/27/18 07:34 06/27/18 07:34 Labs: Abnormal Lab Results - Last 24 Hours (Table) 06/26/18 06/26/18 06/27/18 Range/Units 16:39 20:09 06:53 WBC (3.8-10.6) k/uL Neutrophils # (1.3-7.7) k/uL PT (9.0-12.0) sec INR (<1.2) Chloride (98-107) mmol/L Glucose (74-99) mg/dL POC Glucose (mg/dL) 143 H 204 H 172 H (75-99) mg/dL 06/27/18 06/27/18 06/27/18 Range/Units 07:34 07:34 07:34 WBC 11.6 H (3.8-10.6) k/uL Neutrophils # 9.7 H (1.3-7.7) k/uL PT 26.6 H (9.0-12.0) sec INR 2.8 H (<1.2) Chloride 108 H (98-107) mmol/L Glucose 122 H (74-99) mg/dL POC Glucose (mg/dL) (75-99) mg/dL 06/27/18 Range/Units 12:11 WBC (3.8-10.6) k/uL Neutrophils # (1.3-7.7) k/uL PT (9.0-12.0) sec INR (<1.2) Chloride (98-107) mmol/L Glucose (74-99) mg/dL POC Glucose (mg/dL) 122 H (75-99) mg/dL Assessment and Plan Assessment: Impression: #1 Right-sided chest pain suspect pleuritic in nature. #2 Interstitial lung disease, biopsy-proven sarcoidosis. #3 Acute exacerbation of chronic obstructive pulmonary disease #4 Acute on chronic hypoxic respiratory failure secondary to above. #5 Sarcoidosis confirmed by lung biopsy at [facility] 2014. #6 Previous management liter dependent respiratory failure and previous pneumonias with bronchoscopies positive for MRSA, Enterococcus faecalis and staphylococcal species. #7 history of PE/DVT, anticoagulated with warfarin, currently subtherapeutic. #8 History of viral meningitis.. #9 Coronary artery disease with previous [place]. #10 Hypertension. #11 Hyperlipidemia. #12 Bipolar disorder. #13 Chronic pain syndrome currently on morphine in the outpatient setting. #14 Morbid obesity. Plan: The patient was seen and evaluated by Dr. Noyola. The patient states she is not feeling any better and feels her lungs are filling up. Unable to produce any sputum. We'll go ahead and plan for bronchoscopy with BAL in the a.m. Hold warfarin for tonight. Continue bronchodilators and steroids. Continue antibiotics. We will continue to follow and make further recommendations based on her clinical status. I, the cosigning physician, performed a history & physical examination of the patient. Lungs sounds are clear, diminished. Maintaining good O2 saturations in the 90s on 4 L/m per nasal cannula. I discussed the assessment and plan of care with my nurse practitioner, Nicki Roper. I attest to the above note as dictated by her.
[2018-06-27 17:20] LABS: Glucose,Whole Blood 204 mg/dL (75-99)
--- NOTE | 2018-06-27 18:25 | P.PN ---
Subjective Progress Note Date: 06/27/18 Hospital course:this is a pleasant 48 years old female with past medical history of COPD, congestive heart failure, DVT, hyperlipidemia, coronary artery disease, hypertension, pulmonary embolism, hypothyroidism,polycythemia, fibromyalgia, bipolar disorder. This time patient presents with right-sided chest pain, very low right breast, radiating to the back, about 4-5 days duration, pretty severe as per patient and start radiating up towards last couple days. Associated with some cough and flow #for the last 2-3 days. And associated with dyspnea. No other complaints. No dizziness or abdominal pain or change in urine or bowel habits. No fever. patient on home oxygen about 3 L via [place]. patient about this looks stable, she is saturating 100% on 2 L oxygen. Labs showing mild leukocytosis of 12.5 K, INR 1.5,creatinine is normal 0.7, potassium 3.9, serial negative troponins.chest x-ray: Mild interstitial lung edema. EKG showing normal sinus rhythm at 76, no significant ST-T changes.she is currently on diuretic as Bumex. 06/26/2018 maintained on nebulized bronchodilators, IV steroids, IV antibiotics. Blood sugars controlled. Maintaining O2 sats in the high 90s on 4 L nasal cannula. Short of breath with minimal exertion. Nonproductive cough, occasional brown sputum reported. Afebrile. Denies chest pain, palpitations. 06/27/2018 breathing appears easier today, maintaining O2 sats in the mid 90s on 3 L nasal cannula. Complains of nonproductive cough and reports her lungs are filling up. Pulmonary discussing bronchoscopy. Afebrile. INR 2.8. Objective - Vital Signs Vital signs: Vital Signs Temp 98 F 06/27/18 16:59 Pulse 82 06/27/18 16:32 Resp 15 06/27/18 14:55 BP 112/95 06/27/18 16:31 Pulse Ox 98 06/27/18 16:59 Intake & Output 06/26/18 06/27/18 06/27/18 18:59 06:59 18:59 Intake Total 736 1440 Balance 736 1440 Intake: Intake, IV Titration 140 Amount Sodium Chloride 0.9% 1, 140 000 ml @ 20 mls/hr IV . Q24H [facility] Rx#:[id number] Oral 596 1440 Other: Voiding Method Toilet # Voids 2 1 - Exam GENERAL: The patient is sitting up, eating lunch, visiting with significant othe r, alert and oriented x3, not in any acute distress. HEENT: Pupils are round and equally reacting to light. EOMI. No scleral icterus. No conjunctival pallor. Normocephalic, atraumatic. CARDIOVASCULAR: S1 and S2 present. No murmurs, rubs, or gallops. -PULMONARY: Chest is clear to auscultation, diminished more so on the right with no crackles, no wheezing, no rhonchi. ABDOMEN: Soft, nontender, nondistended, normoactive bowel sounds. No palpable organomegaly. MUSCULOSKELETAL: No joint swelling or deformity. EXTREMITIES: No cyanosis, clubbing, mild pedal edema. NEUROLOGICAL: Gross neurological examination did not reveal any focal deficits. SKIN: No rashes. - Labs CBC & Chem 7: 06/27/18 07:34 06/27/18 07:34 Labs: Abnormal Lab Results - Last 24 Hours (Table) 06/26/18 06/27/18 06/27/18 Range/Units 20:09 06:53 07:34 WBC (3.8-10.6) k/uL Neutrophils # (1.3-7.7) k/uL PT 26.6 H (9.0-12.0) sec INR 2.8 H (<1.2) Chloride (98-107) mmol/L Glucose (74-99) mg/dL POC Glucose (mg/dL) 204 H 172 H (75-99) mg/dL 06/27/18 06/27/18 06/27/18 Range/Units 07:34 07:34 12:11 WBC 11.6 H (3.8-10.6) k/uL Neutrophils # 9.7 H (1.3-7.7) k/uL PT (9.0-12.0) sec INR (<1.2) Chloride 108 H (98-107) mmol/L Glucose 122 H (74-99) mg/dL POC Glucose (mg/dL) 122 H (75-99) mg/dL 06/27/18 Range/Units 17:01 WBC (3.8-10.6) k/uL Neutrophils # (1.3-7.7) k/uL PT (9.0-12.0) sec INR (<1.2) Chloride (98-107) mmol/L Glucose (74-99) mg/dL POC Glucose (mg/dL) 204 H (75-99) mg/dL Assessment and Plan Assessment: right sided pleuritic chest pain, mostly related to infection, COPD, in mild to moderate acute exacerbation Acute on chronic hypoxic respiratory failure secondary to the above sarcoidosis with history of pulmonary fibrosis History of congestive heart failure History of bilateral DVT and bilateral PE on warfarin Hyperlipidemia Essential hypertension History of coronary artery disease History of polycythemia Fibromyalgia History of bipolar disorder. Plan: Continue on current medication regime , Pepcid, monitoring and symptomatic treatment. Bronchoscopy scheduled for tomorrow-hold Coumadin. Maintain nebulized bronchodilators, IV steroids, antibiotics-including vancomycin. Aggressive pulmonary toileting. The impression and plan of care has been dictated as directed. : I performed a history and examination of this patient, discussed the same with the dictator. I agree with the dictator's note ,documented as a scribe. Any additional findings or plans will be noted.
[2018-06-27 19:03] LABS: Glucose,Whole Blood 182 mg/dL (75-99)
[2018-06-27 20:10] LABS: Glucose,Whole Blood 189 mg/dL (75-99)
[2018-06-27] MEDS: MIRTAZAPINE 15 MG TAB PO SCH (21:25)
[2018-06-27] MEDS: SODIUM CHLORIDE 0.9% 1,000 ML IV SCH (21:30)
[2018-06-28] MEDS: MORPHINE SULFATE 4 MG/ML SYRINGE IV PRN ×7 (02:25→22:06)
[2018-06-28] MEDS: diphenhydrAMINE 50 MG/ML 1 ML VIAL IVP SCH ×3 (05:49→23:20)
[2018-06-28] MEDS: methylPREDNISolone SOD SUCCI 125 MG/2 ML VIAL IV SCH ×4 (05:49→23:20)
[2018-06-28] MEDS ORDERED: VANCOMYCIN TROUGH DUE 1 EACH MISC MISCELLANE ONE (06:00)
[2018-06-28 06:44] LABS: Glucose,Whole Blood 258 mg/dL (75-99)
[2018-06-28] MEDS: ALPRAZolam 0.5 MG TAB PO PRN ×2 (07:08→14:06)
[2018-06-28] MEDS: METOPROLOL TARTRATE 50 MG TAB PO SCH ×2 (07:19→21:07)
[2018-06-28] MEDS: PREGABALIN 75 MG CAP PO SCH ×2 (07:19→21:07)
[2018-06-28] MEDS: lamoTRIgine 100 MG TAB PO SCH (07:19)
[2018-06-28] MEDS: VANCOMYCIN 1,500 MG in SODIUM CHLORIDE 0.9% 250 ML IVPB SCH ×3 (07:20→23:25)
[2018-06-28] MEDS: BUMETANIDE 1 MG TAB PO SCH ×2 (07:20→12:24)
[2018-06-28] MEDS: INSULIN ASPART (NovoLOG) 100 UNIT/ML VIAL SQ SCH ×4 (07:20→21:08)
[2018-06-28] MEDS: DOXYCYCLINE 100 MG CAP PO SCH ×2 (07:21→21:06)
[2018-06-28 07:44] LABS: Basophils % (A) 0 %; Eosinophils # (A) 0.1 k/uL (0-0.7); Eosinophils % (A) 1 %; HCT 40.3 % (34.0-46.0); HGB 13.4 gm/dL (11.4-16.0); Lymphocytes # (A) 1.3 k/uL (1.0-4.8); Lymphocytes % (A) 11 %; MCH 30.3 pg (25.0-35.0); MCHC 33.3 g/dL (31.0-37.0); MCV 91.1 fL (80.0-100.0); Mean Platelet Volume 7.3; Monocytes # (A) 0.8 k/uL (0-1.0); Monocytes % (A) 7 %; Neutrophils # (A) 9.6 k/uL (1.3-7.7); Neutrophils % (A) 80 %; Platelet Count 224 k/uL (150-450); RBC 4.42 m/uL (3.80-5.40); RDW 14.3 % (11.5-15.5); WBC 11.9 k/uL (3.8-10.6)
[2018-06-28 07:58] LABS: INR 2.2 (<1.2)
[2018-06-28 08:02] LABS: Anion Gap 11 mmol/L; Blood Urea Nitrogen 19 mg/dL (7-17); Calcium 8.5 mg/dL (8.4-10.2); Carbon Dioxide 21 mmol/L (22-30); Chloride 107 mmol/L (98-107); Glucose 216 mg/dL (74-99); Potassium 3.2 mmol/L (3.5-5.1); Sodium 139 mmol/L (137-145)
[2018-06-28] MEDS: IPRATROPIUM-ALBUTEROL 3 ML NEB INHALATION SCH ×4 (08:50→20:02)
[2018-06-28 11:11] LABS: Glucose,Whole Blood 108 mg/dL (75-99)
--- NOTE | 2018-06-28 11:41 | P.PN ---
Subjective Progress Note Date: 06/28/18 Principal diagnosis: Acute exacerbation of chronic obstructive pulmonary disease. This is a very pleasant 48-year-old female patient who follows with Dr. Koch as her primary care physician. She has a history of bipolar disorder, fibromyalgia, coronary artery disease with previous [place], hypertension, hyperlipidemia, chronic pain and chronic narcotic use, chronic obstructive pulmonary disease. Previous PE/DVT and anticoagulated with warfarin. She also has a history of biopsy-proven sarcoidosis. She's had ventilator-dependent respiratory failure and bronchoscopies in the past which have grown MRSA, Enterococcus faecalis and Staphylococcus species. Last bronchoscopy 6 months ago. She presented to the emergency room on 06/22/2018 with complaints of right-sided chest discomfort and pain on inspiration. She was given steroids and pain medication. She represented here yesterday with similar symptoms. Not much improvement. Chest x-ray shows some changes of mild interstitial edema. No major atelectasis or evidence of pneumonia. White count 12.5. Hemoglobin 14.9. INR 1.5. Creatinine 0.74. Troponins negative 3. EKG showed no ST or T wave abnormalities. She is seen today on the regular medical floor and consultation. She is awake and alert in no acute distress. She is still having ongoing issues with right-sided chest discomfort more so with deep inhalation. She has a loose nonproductive cough. No fever chills or night sweats. Maintaining good O2 saturations up to 100% on 2 L/m per nasal cannula. She's afebrile. Hemodynamically stable. She has been initiated on bronchodilators and promethazine. She has been requesting pain medications. She's currently on morphine 4 mg IV every 4 hours. The patient is seen today 06/26/2018 in follow-up on the selective care unit. She is awake and alert in no acute distress. She is still dyspneic with minimal exertion. She still has a loose nonproductive cough. No chills or night sweats. She is maintaining O2 saturations in the upper 90s on 4 L/m per nasal cannula. She remains afebrile. Hemodynamically stable. White count 12.0. Hemoglobin 15.0. INR 2.5. Creatinine 0.61. She remains on DuoNeb inhalations, IV Solu-Medrol, antibiotics. The patient is seen today 06/27/2018 in follow-up on the selective care unit. She is currently sitting up in bed having lunch. Awake and alert in no acute distress. She has been slow to progress and feels she is not getting any better. She was started on vancomycin yesterday. Continues to maintain O2 saturations in the mid 90s on 3 L/m per nasal cannula. She's been afebrile. Hemodynamically stable. White count 11.6. Hemoglobin 13.6. INR 2.8. Creatinine 0.53. The patient is seen today 06/28/2017 in follow-up on the regular medical floor. She remains awake and alert in no acute distress. The plan was for bronchoscopy with BAL today on her chair INR still 2.2. She is maintaining good O2 saturations in the mid 90s on 3 L/m per nasal cannula. She remains afebrile. Hemodynamically stable. White count 11.9. Hemoglobin 13.4. INR 2.2. Creatinine 0.59. She remains on vancomycin and doxycycline. Remains on IV Solu-Medrol and bronchodilators. Objective - Vital Signs Vital signs: Vital Signs Temp 98.1 F 06/28/18 07:00 Pulse 80 06/28/18 09:05 Resp 18 06/28/18 07:00 BP 130/79 06/28/18 07:00 Pulse Ox 96 06/28/18 07:00 Intake & Output 06/27/18 06/28/18 06/28/18 18:59 06:59 18:59 Intake Total 60 Balance 60 Intake: Intake, IV Titration 60 Amount Sodium Chloride 0.9% 1, 60 000 ml @ 20 mls/hr IV . Q24H [facility] Rx#:[id number] Other: Voiding Method Toilet # Voids 1 - Exam GENERAL EXAM: Morbidly obese 48-year-old female. Alert, in no apparent distress. On 3 L nasal cannula HEAD: Normocephalic. EYES: Normal reaction of pupils, equal size. NOSE: Clear with pink turbinates. THROAT: Crowding of the posterior pharynx. No erythema or exudates. NECK: No masses, no JVD. CHEST: No chest wall deformity. LUNGS: Equal air entry with no crackles, wheeze, rhonchi or dullness. Diminished more so in the right lung. CVS: S1 and S2 normal with no audible murmur, regular rhythm. ABDOMEN: No hepatosplenomegaly, normal bowel sounds, no guarding or rigidity. SPINE: No scoliosis or deformity SKIN: No rashes CENTRAL NERVOUS SYSTEM: No focal deficits, tone is normal in all 4 extremities. EXTREMITIES: There is trace peripheral edema. No clubbing, no cyanosis. Peripheral pulses are intact. - Labs CBC & Chem 7: 06/28/18 07:18 06/28/18 07:18 Labs: Abnormal Lab Results - Last 24 Hours (Table) 06/27/18 06/27/18 06/27/18 Range/Units 12:11 17:01 19:01 WBC (3.8-10.6) k/uL Neutrophils # (1.3-7.7) k/uL PT (9.0-12.0) sec INR (<1.2) Potassium (3.5-5.1) mmol/L Carbon Dioxide (22-30) mmol/L BUN (7-17) mg/dL Glucose (74-99) mg/dL POC Glucose (mg/dL) 122 H 204 H 182 H (75-99) mg/dL 06/27/18 06/28/18 06/28/18 Range/Units 20:08 06:43 07:18 WBC (3.8-10.6) k/uL Neutrophils # (1.3-7.7) k/uL PT 21.0 H (9.0-12.0) sec INR 2.2 H (<1.2) Potassium (3.5-5.1) mmol/L Carbon Dioxide (22-30) mmol/L BUN (7-17) mg/dL Glucose (74-99) mg/dL POC Glucose (mg/dL) 189 H 258 H (75-99) mg/dL 06/28/18 06/28/18 06/28/18 Range/Units 07:18 07:18 11:09 WBC 11.9 H (3.8-10.6) k/uL Neutrophils # 9.6 H (1.3-7.7) k/uL PT (9.0-12.0) sec INR (<1.2) Potassium 3.2 L (3.5-5.1) mmol/L Carbon Dioxide 21 L (22-30) mmol/L BUN 19 H (7-17) mg/dL Glucose 216 H (74-99) mg/dL POC Glucose (mg/dL) 108 H (75-99) mg/dL Assessment and Plan Assessment: Impression: #1 Right-sided chest pain suspect pleuritic in nature. #2 Interstitial lung disease, biopsy-proven sarcoidosis. #3 Acute exacerbation of chronic obstructive pulmonary disease. #4 Acute on chronic hypoxic respiratory failure secondary to above. #5 Sarcoidosis confirmed by lung biopsy at [facility] 2014. #6 Previous management liter dependent respiratory failure and previous pneumonias with bronchoscopies positive for MRSA, Enterococcus faecalis and staphylococcal species. #7 history of PE/DVT, anticoagulated with warfarin, currently subtherapeutic. #8 History of viral meningitis.. #9 Coronary artery disease with previous [place]. #10 Hypertension. #11 Hyperlipidemia. #12 Bipolar disorder. #13 Chronic pain syndrome currently on morphine in the outpatient setting. #14 Morbid obesity. Plan: The patient was seen and evaluated by Dr. Noyola. The patient's INR was 2.2 today. Bronchoscopy was canceled. Resume warfarin for the weekend. Reevaluate on Sunday. Continue bronchodilators and steroids. Continue antibiotics. We will continue to follow and make further recommendations based on her clinical status. I, the cosigning physician, performed a history & physical examination of the patient. Lungs sounds are clear, diminished more so on the right. Maintaining good O2 saturations in the 90s on 3 L/m per nasal cannula. I discussed the assessment and plan of care with my nurse practitioner, Nicki Roper. I attest to the above note as dictated by her.
[2018-06-28] MEDS: POTASSIUM CHLORIDE ER 20 MEQ TAB.ER PO SCH (12:24)
[2018-06-28] MEDS: NYSTATIN 100,000 UNIT/GM POWD 15 GM TOPICAL SCH ×2 (12:24→21:08)
[2018-06-28] MEDS: LACTATED RINGERS 1,000 ML IV SCH (12:25)
[2018-06-28] MEDS: PROMETHAZ-COD 6.25-10 MG/5 ML 5 ML CUP PO PRN ×2 (16:24→23:20)
[2018-06-28 17:17] LABS: Glucose,Whole Blood 168 mg/dL (75-99)
[2018-06-28] MEDS ORDERED: WARFARIN 10 MG TAB PO ONE (18:00)
--- NOTE | 2018-06-28 18:31 | P.PN ---
Subjective Progress Note Date: 06/28/18 Hospital course:this is a pleasant 48 years old female with past medical history of COPD, congestive heart failure, DVT, hyperlipidemia, coronary artery disease, hypertension, pulmonary embolism, hypothyroidism,polycythemia, fibromyalgia, bipolar disorder. This time patient presents with right-sided chest pain, very low right breast, radiating to the back, about 4-5 days duration, pretty severe as per patient and start radiating up towards last couple days. Associated with some cough and flow #for the last 2-3 days. And associated with dyspnea. No other complaints. No dizziness or abdominal pain or change in urine or bowel habits. No fever. patient on home oxygen about 3 L via [place]. patient about this looks stable, she is saturating 100% on 2 L oxygen. Labs showing mild leukocytosis of 12.5 K, INR 1.5,creatinine is normal 0.7, potassium 3.9, serial negative troponins.chest x-ray: Mild interstitial lung edema. EKG showing normal sinus rhythm at 76, no significant ST-T changes.she is currently on diuretic as Bumex. 06/26/2018 maintained on nebulized bronchodilators, IV steroids, IV antibiotics. Blood sugars controlled. Maintaining O2 sats in the high 90s on 4 L nasal cannula. Short of breath with minimal exertion. Nonproductive cough, occasional brown sputum reported. Afebrile. Denies chest pain, palpitations. 06/27/2018 breathing appears easier today, maintaining O2 sats in the mid 90s on 3 L nasal cannula. Complains of nonproductive cough and reports her lungs are filling up. Pulmonary discussing bronchoscopy. Afebrile. INR 2.8. 06/28/2018 Coumadin held, INR 2.2, bronchoscopy canceled. Maintaining O2 sats in the mid 90s on 3 L nasal cannula. Continues on doxycycline, vancomycin on nebulized bronchodilators, IV steroids. Denies chest pain, palpitations. Potassium 3.2. Objective - Vital Signs Vital signs: Vital Signs Temp 98.1 F 06/28/18 07:00 Pulse 80 06/28/18 09:05 Resp 18 06/28/18 07:00 BP 130/79 06/28/18 07:00 Pulse Ox 96 06/28/18 07:00 Intake & Output 06/27/18 06/28/18 06/28/18 18:59 06:59 18:59 Intake Total 60 Balance 60 Intake: Intake, IV Titration 60 Amount Sodium Chloride 0.9% 1, 60 000 ml @ 20 mls/hr IV . Q24H [facility] Rx#:[id number] Other: Voiding Method Toilet # Voids 1 - Exam GENERAL: The patient is sitting up at bedside, alert and oriented x3, no acute distress. HEENT: Pupils are round and equally reacting to light. EOMI. No scleral icterus. No conjunctival pallor. CARDIOVASCULAR: S1 and S2 present. No murmurs, rubs, or gallops. -PULMONARY: Chest is clear to auscultation, diminished more so on the right with no crackles, no wheezing, no rhonchi. ABDOMEN: Soft, nontender, nondistended, normoactive bowel sounds. No palpable organomegaly. EXTREMITIES: No cyanosis, clubbing, mild pedal edema. NEUROLOGICAL: Gross neurological examination did not reveal any focal deficits. SKIN: No rashes. - Labs CBC & Chem 7: 06/28/18 07:18 06/28/18 07:18 Labs: Abnormal Lab Results - Last 24 Hours (Table) 06/27/18 06/27/18 06/27/18 Range/Units 12:11 17:01 19:01 WBC (3.8-10.6) k/uL Neutrophils # (1.3-7.7) k/uL PT (9.0-12.0) sec INR (<1.2) Potassium (3.5-5.1) mmol/L Carbon Dioxide (22-30) mmol/L BUN (7-17) mg/dL Glucose (74-99) mg/dL POC Glucose (mg/dL) 122 H 204 H 182 H (75-99) mg/dL 06/27/18 06/28/18 06/28/18 Range/Units 20:08 06:43 07:18 WBC (3.8-10.6) k/uL Neutrophils # (1.3-7.7) k/uL PT 21.0 H (9.0-12.0) sec INR 2.2 H (<1.2) Potassium (3.5-5.1) mmol/L Carbon Dioxide (22-30) mmol/L BUN (7-17) mg/dL Glucose (74-99) mg/dL POC Glucose (mg/dL) 189 H 258 H (75-99) mg/dL 06/28/18 06/28/18 Range/Units 07:18 07:18 WBC 11.9 H (3.8-10.6) k/uL Neutrophils # 9.6 H (1.3-7.7) k/uL PT (9.0-12.0) sec INR (<1.2) Potassium 3.2 L (3.5-5.1) mmol/L Carbon Dioxide 21 L (22-30) mmol/L BUN 19 H (7-17) mg/dL Glucose 216 H (74-99) mg/dL POC Glucose (mg/dL) (75-99) mg/dL Assessment and Plan Assessment: right sided pleuritic chest pain, mostly related to infection, COPD, in mild to moderate acute exacerbation Acute on chronic hypoxic respiratory failure secondary to the above sarcoidosis with history of pulmonary fibrosis History of congestive heart failure History of bilateral DVT and bilateral PE on warfarin Hyperlipidemia Essential hypertension History of coronary artery disease History of polycythemia Fibromyalgia History of bipolar disorder. Plan: Continue on current medication regime , Pepcid, monitoring and symptomatic treatment. Continue on nebulized bronchodilators, IV steroids, antibiotics. As mentioned above bronchoscopy canceled, resume anticoagulation with Coumadin. Potassium to be supplemented with potassium replacement protocol as ordered. Close monitoring of electrolytes, repeat labs ordered for a.m. Daily PT INR. The impression and plan of care has been dictated as directed. : I performed a history and examination of this patient, discussed the same with the dictator. I agree with the dictator's note ,documented as a scribe. Any additional findings or plans will be noted.
[2018-06-28 20:32] LABS: Glucose,Whole Blood 169 mg/dL (75-99)
[2018-06-28] MEDS: MIRTAZAPINE 15 MG TAB PO SCH (21:07)
[2018-06-28] MEDS: SODIUM CHLORIDE 0.9% 1,000 ML IV SCH (23:28)
[2018-06-28] MEDS: IPRATROPIUM-ALBUTEROL 3 ML NEB INHALATION PRN (23:42)
[2018-06-29] MEDS: MORPHINE SULFATE 4 MG/ML SYRINGE IV PRN ×8 (01:18→22:57)
[2018-06-29] MEDS: ALPRAZolam 0.5 MG TAB PO PRN ×2 (03:01→11:04)
[2018-06-29] MEDS: IPRATROPIUM-ALBUTEROL 3 ML NEB INHALATION PRN (03:58)
[2018-06-29] MEDS: methylPREDNISolone SOD SUCCI 125 MG/2 ML VIAL IV SCH ×3 (06:07→17:27)
[2018-06-29] MEDS: diphenhydrAMINE 50 MG/ML 1 ML VIAL IVP SCH ×3 (06:07→22:56)
[2018-06-29] MEDS: VANCOMYCIN 1,500 MG in SODIUM CHLORIDE 0.9% 250 ML IVPB SCH ×2 (06:45→15:15)
[2018-06-29 07:09] LABS: Glucose,Whole Blood 214 mg/dL (75-99)
[2018-06-29] MEDS: METOPROLOL TARTRATE 50 MG TAB PO SCH ×2 (07:18→22:55)
[2018-06-29] MEDS: PREGABALIN 75 MG CAP PO SCH ×2 (07:18→22:54)
[2018-06-29] MEDS: POTASSIUM CHLORIDE ER 20 MEQ TAB.ER PO SCH (07:18)
[2018-06-29] MEDS: lamoTRIgine 100 MG TAB PO SCH (07:18)
[2018-06-29] MEDS: FLUoxetine HCL 20 MG CAP PO SCH (07:19)
[2018-06-29] MEDS: INSULIN ASPART (NovoLOG) 100 UNIT/ML VIAL SQ SCH ×4 (07:20→22:55)
[2018-06-29] MEDS: BUMETANIDE 1 MG TAB PO SCH ×2 (07:20→12:16)
[2018-06-29] MEDS: DOXYCYCLINE 100 MG CAP PO SCH ×2 (07:21→22:55)
[2018-06-29] MEDS: NYSTATIN 100,000 UNIT/GM POWD 15 GM TOPICAL SCH ×2 (07:21→22:57)
[2018-06-29] MEDS: IPRATROPIUM-ALBUTEROL 3 ML NEB INHALATION SCH ×4 (08:07→21:11)
[2018-06-29 08:55] LABS: Basophils % (A) 0 %; Eosinophils # (A) 0.1 k/uL (0-0.7); Eosinophils % (A) 1 %; HCT 46.6 % (34.0-46.0); HGB 15.1 gm/dL (11.4-16.0); Hypochromasia Slight; Lymphocytes # (A) 1.8 k/uL (1.0-4.8); Lymphocytes % (A) 10 %; MCH 30.5 pg (25.0-35.0); MCHC 32.4 g/dL (31.0-37.0); MCV 94.2 fL (80.0-100.0); Mean Platelet Volume 7.9; Monocytes # (A) 1.3 k/uL (0-1.0); Monocytes % (A) 8 %; Neutrophils # (A) 13.9 k/uL (1.3-7.7); Neutrophils % (A) 80 %; Platelet Count 315 k/uL (150-450); RBC 4.94 m/uL (3.80-5.40); RDW 14.8 % (11.5-15.5); WBC 17.2 k/uL (3.8-10.6)
[2018-06-29 08:59] LABS: Anion Gap 13 mmol/L; Blood Urea Nitrogen 22 mg/dL (7-17); Calcium 8.5 mg/dL (8.4-10.2); Carbon Dioxide 21 mmol/L (22-30); Chloride 106 mmol/L (98-107); Glucose 197 mg/dL (74-99); Potassium 3.6 mmol/L (3.5-5.1); Sodium 140 mmol/L (137-145)
[2018-06-29 09:26] LABS: INR 1.6 (<1.2); Prothrombin Time 16.3 sec (9.0-12.0)
[2018-06-29] MEDS: PROMETHAZ-COD 6.25-10 MG/5 ML 5 ML CUP PO PRN (10:20)
[2018-06-29 12:10] LABS: Glucose,Whole Blood 197 mg/dL (75-99)
--- NOTE | 2018-06-29 13:16 | P.PN ---
Subjective Progress Note Date: 06/29/18 Principal diagnosis: Acute exacerbation of chronic obstructive pulmonary disease. This is a very pleasant 48-year-old female patient who follows with Dr. Koch as her primary care physician. She has a history of bipolar disorder, fibromyalgia, coronary artery disease with previous [place], hypertension, hyperlipidemia, chronic pain and chronic narcotic use, chronic obstructive pulmonary disease. Previous PE/DVT and anticoagulated with warfarin. She also has a history of biopsy-proven sarcoidosis. She's had ventilator-dependent respiratory failure and bronchoscopies in the past which have grown MRSA, Enterococcus faecalis and Staphylococcus species. Last bronchoscopy 6 months ago. She presented to the emergency room on 06/22/2018 with complaints of right-sided chest discomfort and pain on inspiration. She was given steroids and pain medication. She represented here yesterday with similar symptoms. Not much improvement. Chest x-ray shows some changes of mild interstitial edema. No major atelectasis or evidence of pneumonia. White count 12.5. Hemoglobin 14.9. INR 1.5. Creatinine 0.74. Troponins negative 3. EKG showed no ST or T wave abnormalities. She is seen today on the regular medical floor and consultation. She is awake and alert in no acute distress. She is still having ongoing issues with right-sided chest discomfort more so with deep inhalation. She has a loose nonproductive cough. No fever chills or night sweats. Maintaining good O2 saturations up to 100% on 2 L/m per nasal cannula. She's afebrile. Hemodynamically stable. She has been initiated on bronchodilators and promethazine. She has been requesting pain medications. She's currently on morphine 4 mg IV every 4 hours. The patient is seen today 06/26/2018 in follow-up on the selective care unit. She is awake and alert in no acute distress. She is still dyspneic with minimal exertion. She still has a loose nonproductive cough. No chills or night sweats. She is maintaining O2 saturations in the upper 90s on 4 L/m per nasal cannula. She remains afebrile. Hemodynamically stable. White count 12.0. Hemoglobin 15.0. INR 2.5. Creatinine 0.61. She remains on DuoNeb inhalations, IV Solu-Medrol, antibiotics. The patient is seen today 06/27/2018 in follow-up on the selective care unit. She is currently sitting up in bed having lunch. Awake and alert in no acute distress. She has been slow to progress and feels she is not getting any better. She was started on vancomycin yesterday. Continues to maintain O2 saturations in the mid 90s on 3 L/m per nasal cannula. She's been afebrile. Hemodynamically stable. White count 11.6. Hemoglobin 13.6. INR 2.8. Creatinine 0.53. The patient is seen today 06/28/2017 in follow-up on the regular medical floor. She remains awake and alert in no acute distress. The plan was for bronchoscopy with BAL today on her chair INR still 2.2. She is maintaining good O2 saturations in the mid 90s on 3 L/m per nasal cannula. She remains afebrile. Hemodynamically stable. White count 11.9. Hemoglobin 13.4. INR 2.2. Creatinine 0.59. She remains on vancomycin and doxycycline. Remains on IV Solu-Medrol and bronchodilators. Patient is seen today 06/29/2018 in follow-up on the regular medical floor. Continues to have chronic coughing and now bringing up some small amounts of phlegm. She is maintaining good O2 saturations in the 90s on 3 L/m per nasal cannula. She's been afebrile. White count 17.2. Hemoglobin 15.1. INR 1.6. Creatinine 0.76. Objective - Vital Signs Vital signs: Vital Signs Temp 98.1 F 06/29/18 07:00 Pulse 80 06/29/18 11:18 Resp 16 06/29/18 08:18 BP 131/78 06/29/18 07:00 Pulse Ox 94 L 06/29/18 07:00 Intake & Output 06/28/18 06/29/18 06/29/18 18:59 06:59 18:59 Intake Total 450 390 Output Total 400 Balance 50 390 Intake: Intake, IV Titration 390 Amount Sodium Chloride 0.9% 1, 140 000 ml @ 20 mls/hr IV . Q24H [facility] Rx#:[id number] Vancomycin 1,500 mg In 250 Sodium Chloride 0.9% 250 ml @ 125 mls/hr IVPB Q8H [facility] Rx#:[id number] Oral 450 Output: Urine 400 Other: Voiding Method Toilet Toilet # Voids 2 - Exam GENERAL EXAM: Morbidly obese 48-year-old female. Alert, in no apparent distress. On 3 L nasal cannula. HEAD: Normocephalic. EYES: Normal reaction of pupils, equal size. NOSE: Clear with pink turbinates. THROAT: Crowding of the posterior pharynx. No erythema or exudates. NECK: No masses, no JVD. CHEST: No chest wall deformity. LUNGS: Equal air entry with no crackles, wheeze, rhonchi or dullness. CVS: S1 and S2 normal with no audible murmur, regular rhythm. ABDOMEN: No hepatosplenomegaly, normal bowel sounds, no guarding or rigidity. SPINE: No scoliosis or deformity SKIN: No rashes CENTRAL NERVOUS SYSTEM: No focal deficits, tone is normal in all 4 extremities. EXTREMITIES: There is trace peripheral edema. No clubbing, no cyanosis. Peripheral pulses are intact. - Labs CBC & Chem 7: 06/29/18 08:12 06/29/18 08:12 Labs: Abnormal Lab Results - Last 24 Hours (Table) 06/28/18 06/28/18 06/29/18 Range/Units 17:05 20:30 07:08 WBC (3.8-10.6) k/uL Hct (34.0-46.0) % Neutrophils # (1.3-7.7) k/uL Monocytes # (0-1.0) k/uL PT (9.0-12.0) sec INR (<1.2) Carbon Dioxide (22-30) mmol/L BUN (7-17) mg/dL Glucose (74-99) mg/dL POC Glucose (mg/dL) 168 H 169 H 214 H (75-99) mg/dL 06/29/18 06/29/18 06/29/18 Range/Units 08:12 08:12 08:12 WBC 17.2 H (3.8-10.6) k/uL Hct 46.6 H (34.0-46.0) % Neutrophils # 13.9 H (1.3-7.7) k/uL Monocytes # 1.3 H (0-1.0) k/uL PT 16.3 H (9.0-12.0) sec INR 1.6 H (<1.2) Carbon Dioxide 21 L (22-30) mmol/L BUN 22 H (7-17) mg/dL Glucose 197 H (74-99) mg/dL POC Glucose (mg/dL) (75-99) mg/dL 06/29/18 Range/Units 11:48 WBC (3.8-10.6) k/uL Hct (34.0-46.0) % Neutrophils # (1.3-7.7) k/uL Monocytes # (0-1.0) k/uL PT (9.0-12.0) sec INR (<1.2) Carbon Dioxide (22-30) mmol/L BUN (7-17) mg/dL Glucose (74-99) mg/dL POC Glucose (mg/dL) 197 H (75-99) mg/dL Assessment and Plan Assessment: Impression: #1 Right-sided chest pain suspect pleuritic in nature. #2 Interstitial lung disease, biopsy-proven sarcoidosis. #3 Acute exacerbation of chronic obstructive pulmonary disease. #4 Acute on chronic hypoxic respiratory failure secondary to above. #5 Sarcoidosis confirmed by lung biopsy at [facility] 2014. #6 Previous management liter dependent respiratory failure and previous pneumonias with bronchoscopies positive for MRSA, Enterococcus faecalis and staphylococcal species. #7 history of PE/DVT, anticoagulated with warfarin, currently subtherapeutic. #8 History of viral meningitis.. #9 Coronary artery disease with previous [place]. #10 Hypertension. #11 Hyperlipidemia. #12 Bipolar disorder. #13 Chronic pain syndrome currently on morphine in the outpatient setting. #14 Morbid obesity. Plan: The patient was seen and evaluated by Dr. Noyola. Continue bronchodilators and steroids. Continue antibiotics. We will continue to follow and make further recommendations based on her clinical status. I, the cosigning physician, performed a history & physical examination of the patient. Lungs sounds are clear. Maintaining good O2 saturations in the 90s on 3 L/m per nasal cannula. I discussed the assessment and plan of care with my nurse practitioner, Nicki Roper. I attest to the above note as dictated by her.
[2018-06-29] MEDS: CLOTRIMAZOLE TROCHE 10 MG TROCHE MUCOUS MEM SCH ×2 (15:15→22:55)
--- NOTE | 2018-06-29 16:35 | P.PN ---
Subjective this is a pleasant 48 years old female with past medical history of COPD, congestive heart failure, DVT, hyperlipidemia, coronary artery disease, hy pertension, pulmonary embolism, hypothyroidism,polycythemia, fibromyalgia, bipolar disorder. This time patient presents with right-sided chest pain, very low right breast, radiating to the back, about 4-5 days duration, pretty severe as per patient and start radiating up towards last couple days. Associated with some cough and flow #for the last 2-3 days. And associated with dyspnea. No other complaints. No dizziness or abdominal pain or change in urine or bowel habits. No fever. patient on home oxygen about 3 L via NC. patient about this looks stable, she is saturating 100% on 2 L oxygen. Labs showing mild leukocytosis of 12.5 K, INR 1.5,creatinine is normal 0.7, potassium 3.9, serial negative troponins.chest x-ray: Mild interstitial lung edema. EKG showing normal sinus rhythm at 76, no significant ST-T changes.she is currently on diuretic as Bumex. 06/29/2018 Patient lying in bed not in distress, she still dyspneic. No chest pain. chest physiotherapy is been ordered.pt has been progressing slowly , there is decreased air entry on both sides of the lung on examination. Patient was started with intravenous vancomycin for her history of MRSA. Patient notes creatinine is trending up slowly 1.3.I will hold the vancomycin .discussed the case with pulmonary team and they agree.protocol infectious disease for further recommendation. Review of systems CONSTITUTIONAL: No fever, no malaise, no fatigue. HEENT: No recent visual problems or hearing problems. Denied any sore throat. CARDIOVASCULAR: No orthopnea, PND, no palpitations, no syncope. PULMONARY: no hemoptysis. GASTROINTESTINAL: No diarrhea, no nausea, no vomiting, no abdominal pain. Normoactive bowel sounds. NEUROLOGICAL: No headaches, no weakness, no numbness. HEMATOLOGICAL: Denies any bleeding or petechiae. GENITOURINARY: Denies any burning micturition, frequency, or urgency. MUSCULOSKELETAL/RHEUMATOLOGICAL: Denies any joint pain, swelling, or any muscle pain. ENDOCRINE: Denies any polyuria or polydipsia. medication: Albuterol, Xanax, or coughing, Bumex, tramadol, Benadryl, doxycycline, Prozac, NovoLog, Ringer lactate, Lamictal, Antivert, Solu-Medrol, Lopressor, mirtazapine,morphine, nystatin, Zofran, Lyrica, Phenergan, Senokot, Coumadin Objective - Vital Signs Vital signs: Vital Signs Temp 98.6 F 06/29/18 15:00 Pulse 73 06/29/18 15:58 Resp 12 06/29/18 15:58 BP 117/84 06/29/18 15:00 Pulse Ox 97 06/29/18 15:00 Intake & Output 06/28/18 06/29/18 06/29/18 18:59 06:59 18:59 Intake Total 450 390 250 Output Total 400 Balance 50 390 250 Intake: Intake, IV Titration 390 250 Amount Sodium Chloride 0.9% 1, 140 000 ml @ 20 mls/hr IV . Q24H [facility] Rx#:[id number] Vancomycin 1,500 mg In 250 250 Sodium Chloride 0.9% 250 ml @ 125 mls/hr IVPB Q8H [facility] Rx#:[id number] Oral 450 Output: Urine 400 Other: Voiding Method Toilet Toilet # Voids 2 - Exam GENERAL: The patient is alert and oriented x3, not in any acute distress. Well developed, well nourished. HEENT: Pupils are round and equally reacting to light. EOMI. No scleral icterus. No conjunctival pallor. Normocephalic, atraumatic. No pharyngeal erythema. No thyromegaly. CARDIOVASCULAR: S1 and S2 present. No murmurs, rubs, or gallops. -PULMONARY: Chest is clear to auscultation, mild bilateral scattered wheezing . no crackles. ABDOMEN: Soft, nontender, nondistended, normoactive bowel sounds. No palpable organomegaly. MUSCULOSKELETAL: No joint swelling or deformity. EXTREMITIES: No cyanosis, clubbing, or pedal edema. NEUROLOGICAL: Gross neurological examination did not reveal any focal deficits. SKIN: No rashes. - Labs CBC & Chem 7: 06/29/18 08:12 06/29/18 08:12 Labs: Abnormal Lab Results - Last 24 Hours (Table) 06/28/18 06/28/18 06/29/18 Range/Units 17:05 20:30 07:08 WBC (3.8-10.6) k/uL Hct (34.0-46.0) % Neutrophils # (1.3-7.7) k/uL Monocytes # (0-1.0) k/uL PT (9.0-12.0) sec INR (<1.2) Carbon Dioxide (22-30) mmol/L BUN (7-17) mg/dL Glucose (74-99) mg/dL POC Glucose (mg/dL) 168 H 169 H 214 H (75-99) mg/dL 06/29/18 06/29/18 06/29/18 Range/Units 08:12 08:12 08:12 WBC 17.2 H (3.8-10.6) k/uL Hct 46.6 H (34.0-46.0) % Neutrophils # 13.9 H (1.3-7.7) k/uL Monocytes # 1.3 H (0-1.0) k/uL PT 16.3 H (9.0-12.0) sec INR 1.6 H (<1.2) Carbon Dioxide 21 L (22-30) mmol/L BUN 22 H (7-17) mg/dL Glucose 197 H (74-99) mg/dL POC Glucose (mg/dL) (75-99) mg/dL 06/29/18 Range/Units 11:48 WBC (3.8-10.6) k/uL Hct (34.0-46.0) % Neutrophils # (1.3-7.7) k/uL Monocytes # (0-1.0) k/uL PT (9.0-12.0) sec INR (<1.2) Carbon Dioxide (22-30) mmol/L BUN (7-17) mg/dL Glucose (74-99) mg/dL POC Glucose (mg/dL) 197 H (75-99) mg/dL Assessment and Plan Assessment: right sided pleuritic chest pain, mostly related to infection, acute kidney injury COPD, in mild to moderate acute exacerbation sarcoidosis with history of pulmonary fibrosis History of congestive heart failure 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 Plan: this is a pleasant 48 years old female who presents with right-sided chest pain. Looks pleuritic in nature. Pulmonary consult is appreciated. Continue with steroids and pain management.continue with antibiotic given her leukocytosis. Also will bridge her subhepatic INR with Lovenox, which she usually takes when this happens. She is on high-dose of Coumadin a 12 mg at home. She is on Coumadin pharmacy to dose now. Labs and medication were reviewed.. Continue same treatment. Continue with symptomatic treatment. Resume home medication. Monitor lytes and vitals. DVT and GI prophylaxis. Further recommendations of the clinical course of the patient DVT prophylaxis: on warfarin GI Prophylaxis: Pepcid Prognosis is guarded
[2018-06-29 17:15] LABS: Glucose,Whole Blood 216 mg/dL (75-99)
[2018-06-29] MEDS ORDERED: WARFARIN 3 MG TAB PO ONE (18:00)
[2018-06-29 20:25] LABS: Glucose,Whole Blood 166 mg/dL (75-99)
[2018-06-29] MEDS: MIRTAZAPINE 15 MG TAB PO SCH (22:54)
[2018-06-29] MEDS: SODIUM CHLORIDE 0.9% 1,000 ML IV SCH (22:56)
[2018-06-30] MEDS: LACTATED RINGERS 1,000 ML IV SCH ×2 (01:26→22:08)
[2018-06-30] MEDS: diphenhydrAMINE 50 MG/ML 1 ML VIAL IVP SCH ×3 (01:31→17:29)
[2018-06-30] MEDS: VANCOMYCIN 1,500 MG in SODIUM CHLORIDE 0.9% 250 ML IVPB SCH ×3 (01:32→17:28)
[2018-06-30] MEDS: methylPREDNISolone SOD SUCCI 125 MG/2 ML VIAL IV SCH ×4 (01:32→17:28)
[2018-06-30] MEDS ORDERED: VANCOMYCIN TROUGH DUE 1 EACH MISC MISCELLANE ONE (06:00)
[2018-06-30] MEDS: MORPHINE SULFATE 4 MG/ML SYRINGE IV PRN ×6 (06:40→22:04)
[2018-06-30] MEDS: CLOTRIMAZOLE TROCHE 10 MG TROCHE MUCOUS MEM SCH ×4 (06:41→22:04)
[2018-06-30 07:01] LABS: Glucose,Whole Blood 139 mg/dL (75-99)
[2018-06-30] MEDS: INSULIN ASPART (NovoLOG) 100 UNIT/ML VIAL SQ SCH ×4 (07:30→22:04)
[2018-06-30] MEDS: IPRATROPIUM-ALBUTEROL 3 ML NEB INHALATION SCH ×4 (07:44→21:01)
[2018-06-30] MEDS: METOPROLOL TARTRATE 50 MG TAB PO SCH ×2 (07:48→22:08)
[2018-06-30] MEDS: POTASSIUM CHLORIDE ER 20 MEQ TAB.ER PO SCH (07:48)
[2018-06-30] MEDS: FLUoxetine HCL 20 MG CAP PO SCH (07:49)
[2018-06-30] MEDS: BUMETANIDE 1 MG TAB PO SCH ×2 (07:49→12:20)
[2018-06-30] MEDS: lamoTRIgine 100 MG TAB PO SCH (07:49)
[2018-06-30] MEDS: PREGABALIN 75 MG CAP PO SCH ×2 (07:49→22:04)
[2018-06-30] MEDS: DOXYCYCLINE 100 MG CAP PO SCH ×2 (07:50→22:04)
[2018-06-30] MEDS: NYSTATIN 100,000 UNIT/GM POWD 15 GM TOPICAL SCH ×2 (07:50→22:08)
[2018-06-30 08:06] LABS: Prothrombin Time 19.8 sec (9.0-12.0)
[2018-06-30 08:13] LABS: Basophils # (A) 0.1 k/uL (0-0.2); Basophils % (A) 0 %; Eosinophils # (A) 0.1 k/uL (0-0.7); Eosinophils % (A) 0 %; HCT 47.5 % (34.0-46.0); HGB 15.6 gm/dL (11.4-16.0); Lymphocytes # (A) 2.7 k/uL (1.0-4.8); Lymphocytes % (A) 13 %; MCH 30.2 pg (25.0-35.0); MCHC 32.8 g/dL (31.0-37.0); MCV 92.1 fL (80.0-100.0); Mean Platelet Volume 7.6; Monocytes # (A) 1.4 k/uL (0-1.0); Monocytes % (A) 7 %; Neutrophils % (A) 79 %; Platelet Count 295 k/uL (150-450); RBC 5.16 m/uL (3.80-5.40); RDW 14.3 % (11.5-15.5); WBC 21.4 k/uL (3.8-10.6)
[2018-06-30 08:23] LABS: Anion Gap 8 mmol/L; Blood Urea Nitrogen 26 mg/dL (7-17); Carbon Dioxide 29 mmol/L (22-30); Chloride 103 mmol/L (98-107); Glucose 142 mg/dL (74-99); Potassium 3.6 mmol/L (3.5-5.1); Sodium 140 mmol/L (137-145)
[2018-06-30] MEDS: ALPRAZolam 0.5 MG TAB PO PRN ×2 (09:23→17:31)
[2018-06-30 11:52] LABS: Glucose,Whole Blood 195 mg/dL (75-99)
--- NOTE | 2018-06-30 13:30 | P.PN ---
Subjective Progress Note Date: 06/30/18 Principal diagnosis: Acute exacerbation of chronic obstructive pulmonary disease. This is a very pleasant 48-year-old female patient who follows with Dr. Koch as her primary care physician. She has a history of bipolar disorder, fibromyalgia, coronary artery disease with previous OR, hypertension, hyperlipidemia, chronic pain and chronic narcotic use, chronic obstructive pulmonary disease. Previous PE/DVT and anticoagulated with warfarin. She also has a history of biopsy-proven sarcoidosis. She's had ventilator-dependent respiratory failure and bronchoscopies in the past which have grown MRSA, Enterococcus faecalis and Staphylococcus species. Last bronchoscopy 6 months ago. She presented to the emergency room on 06/22/2018 with complaints of right-sided chest discomfort and pain on inspiration. She was given steroids and pain medication. She represented here yesterday with similar symptoms. Not much improvement. Chest x-ray shows some changes of mild interstitial edema. No major atelectasis or evidence of pneumonia. White count 12.5. Hemoglobin 14.9. INR 1.5. Creatinine 0.74. Troponins negative 3. EKG showed no ST or T wave abnormalities. She is seen today on the regular medical floor and consultation. She is awake and alert in no acute distress. She is still having ongoing issues with right-sided chest discomfort more so with deep inhalation. She has a loose nonproductive cough. No fever chills or night sweats. Maintaining good O2 saturations up to 100% on 2 L/m per nasal cannula. She's afebrile. Hemodynamically stable. She has been initiated on bronchodilators and promethazine. She has been requesting pain medications. She's currently on morphine 4 mg IV every 4 hours. The patient is seen today 06/26/2018 in follow-up on the selective care unit. She is awake and alert in no acute distress. She is still dyspneic with minimal exertion. She still has a loose nonproductive cough. No chills or night sweats. She is maintaining O2 saturations in the upper 90s on 4 L/m per nasal cannula. She remains afebrile. Hemodynamically stable. White count 12.0. Hemoglobin 15.0. INR 2.5. Creatinine 0.61. She remains on DuoNeb inhalations, IV Solu-Medrol, antibiotics. The patient is seen today 06/27/2018 in follow-up on the selective care unit. She is currently sitting up in bed having lunch. Awake and alert in no acute distress. She has been slow to progress and feels she is not getting any better. She was started on vancomycin yesterday. Continues to maintain O2 saturations in the mid 90s on 3 L/m per nasal cannula. She's been afebrile. Hemodynamically stable. White count 11.6. Hemoglobin 13.6. INR 2.8. Creatinine 0.53. The patient is seen today 06/28/2017 in follow-up on the regular medical floor. She remains awake and alert in no acute distress. The plan was for bronchoscopy with BAL today on her chair INR still 2.2. She is maintaining good O2 saturations in the mid 90s on 3 L/m per nasal cannula. She remains afebrile. Hemodynamically stable. White count 11.9. Hemoglobin 13.4. INR 2.2. Creatinine 0.59. She remains on vancomycin and doxycycline. Remains on IV Solu-Medrol and bronchodilators. Patient is seen today 06/29/2018 in follow-up on the regular medical floor. Continues to have chronic coughing and now bringing up some small amounts of phlegm. She is maintaining good O2 saturations in the 90s on 3 L/m per nasal cannula. She's been afebrile. White count 17.2. Hemoglobin 15.1. INR 1.6. Creatinine 0.76. The patient is seen again today 06/30/2018 in follow-up on the regular medical floor. She is improved today as compared to yesterday. CPT therapy to the chest has helped her to bring up some mucus. Flutter valve ordered as well. She is maintaining good O2 saturations in the mid 90s on 3 L/m per nasal cannula. She's been afebrile. Hemodynamically stable. White count 21. Hemoglobin 15.6. INR 2.0. Creatinine 0.70. She remains on vancomycin and doxycycline. IV Solu-Medrol. Bronchodilators. Objective - Vital Signs Vital signs: Vital Signs Temp 98.5 F 06/30/18 07:00 Pulse 80 06/30/18 11:21 Resp 20 06/30/18 08:00 BP 120/86 06/30/18 07:00 Pulse Ox 96 06/30/18 07:00 Intake & Output 06/29/18 06/30/18 06/30/18 18:59 06:59 18:59 Intake Total 250 480 Balance 250 480 Intake: Intake, IV Titration 250 Amount Vancomycin 1,500 mg In 250 Sodium Chloride 0.9% 250 ml @ 125 mls/hr IVPB Q8H [facility] Rx#:[id number] Oral 480 Other: Voiding Method Toilet Toilet Toilet # Voids 1 - Exam GENERAL EXAM: Morbidly obese 48-year-old female. Alert, in no apparent distress. On 3 L nasal cannula. HEAD: Normocephalic. EYES: Normal reaction of pupils, equal size. NOSE: Clear with pink turbinates. THROAT: Crowding of the posterior pharynx. No erythema or exudates. NECK: No masses, no JVD. CHEST: No chest wall deformity. LUNGS: Equal air entry with no crackles, wheeze, rhonchi or dullness. CVS: S1 and S2 normal with no audible murmur, regular rhythm. ABDOMEN: No hepatosplenomegaly, normal bowel sounds, no guarding or rigidity. SPINE: No scoliosis or deformity SKIN: No rashes CENTRAL NERVOUS SYSTEM: No focal deficits, tone is normal in all 4 extremities. EXTREMITIES: There is trace peripheral edema. No clubbing, no cyanosis. Peripheral pulses are intact. - Labs CBC & Chem 7: 06/30/18 06:47 06/30/18 06:47 Labs: Abnormal Lab Results - Last 24 Hours (Table) 06/29/18 06/29/18 06/30/18 Range/Units 17:10 20:13 06:47 WBC (3.8-10.6) k/uL Hct (34.0-46.0) % Neutrophils # (1.3-7.7) k/uL Monocytes # (0-1.0) k/uL PT 19.8 H (9.0-12.0) sec INR 2.0 H (<1.2) BUN (7-17) mg/dL Glucose (74-99) mg/dL POC Glucose (mg/dL) 216 H 166 H (75-99) mg/dL 06/30/18 06/30/18 06/30/18 Range/Units 06:47 06:47 07:00 WBC 21.4 H (3.8-10.6) k/uL Hct 47.5 H (34.0-46.0) % Neutrophils # 17.0 H (1.3-7.7) k/uL Monocytes # 1.4 H (0-1.0) k/uL PT (9.0-12.0) sec INR (<1.2) BUN 26 H (7-17) mg/dL Glucose 142 H (74-99) mg/dL POC Glucose (mg/dL) 139 H (75-99) mg/dL 06/30/18 Range/Units 11:50 WBC (3.8-10.6) k/uL Hct (34.0-46.0) % Neutrophils # (1.3-7.7) k/uL Monocytes # (0-1.0) k/uL PT (9.0-12.0) sec INR (<1.2) BUN (7-17) mg/dL Glucose (74-99) mg/dL POC Glucose (mg/dL) 195 H (75-99) mg/dL Assessment and Plan Assessment: Impression: #1 Right-sided chest pain suspect pleuritic in nature. #2 Interstitial lung disease, biopsy-proven sarcoidosis. #3 Acute exacerbation of chronic obstructive pulmonary disease. #4 Acute on chronic hypoxic respiratory failure secondary to above. #5 Sarcoidosis confirmed by lung biopsy at [facility] 2014. #6 Previous management liter dependent respiratory failure and previous pneumonias with bronchoscopies positive for MRSA, Enterococcus faecalis and staphylococcal species. #7 history of PE/DVT, anticoagulated with warfarin, currently subtherapeutic. #8 History of viral meningitis.. #9 Coronary artery disease with previous OR. #10 Hypertension. #11 Hyperlipidemia. #12 Bipolar disorder. #13 Chronic pain syndrome currently on morphine in the outpatient setting. #14 Morbid obesity. Plan: The patient was seen and evaluated by Dr. Noyola. Sputum culture pending. Continue bronchodilators and steroids. Continue antibiotics. We will continue to follow and make further recommendations based on her clinical status. I, the cosigning physician, performed a history & physical examination of the patient. Lungs sounds are clear. Maintaining good O2 saturations in the 90s on 3 L/m per nasal cannula. I discussed the assessment and plan of care with my nurse practitioner, Nicki Roper. I attest to the above note as dictated by her.
[2018-06-30] MEDS: PROMETHAZ-COD 6.25-10 MG/5 ML 5 ML CUP PO PRN (13:36)
[2018-06-30 16:51] LABS: Glucose,Whole Blood 205 mg/dL (75-99)
--- NOTE | 2018-06-30 17:55 | P.PN ---
Subjective this is a pleasant 48 years old female with past medical history of COPD, congestive heart failure, DVT, hyperlipidemia, coronary artery disease, hy pertension, pulmonary embolism, hypothyroidism,polycythemia, fibromyalgia, bipolar disorder. This time patient presents with right-sided chest pain, very low right breast, radiating to the back, about 4-5 days duration, pretty severe as per patient and start radiating up towards last couple days. Associated with some cough and flow #for the last 2-3 days. And associated with dyspnea. No other complaints. No dizziness or abdominal pain or change in urine or bowel habits. No fever. patient on home oxygen about 3 L via NC. patient about this looks stable, she is saturating 100% on 2 L oxygen. Labs showing mild leukocytosis of 12.5 K, INR 1.5,creatinine is normal 0.7, potassium 3.9, serial negative troponins.chest x-ray: Mild interstitial lung edema. EKG showing normal sinus rhythm at 76, no significant ST-T changes.she is currently on diuretic as Bumex. 06/29/2018 Patient lying in bed not in distress, she still dyspneic. No chest pain. chest physiotherapy is been ordered.pt has been progressing slowly , there is decreased air entry on both sides of the lung on examination. Patient was started with intravenous vancomycin for her history of MRSA. Patient notes creatinine is trending up slowly 1.3.I will hold the vancomycin .discussed the case with pulmonary team and they agree.protocol infectious disease for further recommendation. 06/30/2018 Patient still have some dyspnea, but she says she has lived with improvement, she has decreased air entry in both sides. Patient was started on vancomycin. Her creatinine is normal. The sugar is controlled. Also spirits. Physical therapy is provided for the patient and she feels a little better. Her INR today is 2.0. She has leukocytosis of 20 1.4K. Review of systems CONSTITUTIONAL: No fever, no malaise, no fatigue. HEENT: No recent visual problems or hearing problems. Denied any sore throat. CARDIOVASCULAR: No orthopnea, PND, no palpitations, no syncope. PULMONARY: no hemoptysis. GASTROINTESTINAL: No diarrhea, no nausea, no vomiting, no abdominal pain. Normoactive bowel sounds. NEUROLOGICAL: No headaches, no weakness, no numbness. HEMATOLOGICAL: Denies any bleeding or petechiae. GENITOURINARY: Denies any burning micturition, frequency, or urgency. MUSCULOSKELETAL/RHEUMATOLOGICAL: Denies any joint pain, swelling, or any muscle pain. ENDOCRINE: Denies any polyuria or polydipsia. medication: Albuterol, Xanax, or coughing, Bumex, tramadol, Benadryl, doxycycline, Prozac, NovoLog, Ringer lactate, Lamictal, Antivert, Solu-Medrol, Lopressor, mirtazapine,morphine, nystatin, Zofran, Lyrica, Phenergan, Senokot, Coumadin Objective - Vital Signs Vital signs: Vital Signs Temp 97.9 F 06/30/18 15:00 Pulse 81 06/30/18 17:05 Resp 16 06/30/18 17:05 BP 127/84 06/30/18 15:00 Pulse Ox 99 06/30/18 15:00 Intake & Output 06/29/18 06/30/18 06/30/18 18:59 06:59 18:59 Intake Total 250 1210 Balance 250 1210 Intake: Intake, IV Titration 250 250 Amount Vancomycin 1,500 mg In 250 Sodium Chloride 0.9% 250 ml @ 125 mls/hr IVPB Q8H [facility] Rx#:[id number] Vancomycin 1,500 mg In 250 Sodium Chloride 0.9% 250 ml @ 125 mls/hr IVPB Q8H [facility] Rx#:[id number] Oral 960 Other: Voiding Method Toilet Toilet Toilet # Voids 1 - Exam GENERAL: The patient is alert and oriented x3, not in any acute distress. Well developed, well nourished. HEENT: Pupils are round and equally reacting to light. EOMI. No scleral icterus. No conjunctival pallor. Normocephalic, atraumatic. No pharyngeal erythema. No thyromegaly. CARDIOVASCULAR: S1 and S2 present. No murmurs, rubs, or gallops. -PULMONARY: Chest is clear to auscultation, mild bilateral scattered wheezing . no crackles. ABDOMEN: Soft, nontender, nondistended, normoactive bowel sounds. No palpable organomegaly. MUSCULOSKELETAL: No joint swelling or deformity. EXTREMITIES: No cyanosis, clubbing, or pedal edema. NEUROLOGICAL: Gross neurological examination did not reveal any focal deficits. SKIN: No rashes. - Labs CBC & Chem 7: 06/30/18 06:47 06/30/18 06:47 Labs: Abnormal Lab Results - Last 24 Hours (Table) 06/29/18 06/30/18 06/30/18 Range/Units 20:13 06:47 06:47 WBC 21.4 H (3.8-10.6) k/uL Hct 47.5 H (34.0-46.0) % Neutrophils # 17.0 H (1.3-7.7) k/uL Monocytes # 1.4 H (0-1.0) k/uL PT 19.8 H (9.0-12.0) sec INR 2.0 H (<1.2) BUN (7-17) mg/dL Glucose (74-99) mg/dL POC Glucose (mg/dL) 166 H (75-99) mg/dL 06/30/18 06/30/18 06/30/18 Range/Units 06:47 07:00 11:50 WBC (3.8-10.6) k/uL Hct (34.0-46.0) % Neutrophils # (1.3-7.7) k/uL Monocytes # (0-1.0) k/uL PT (9.0-12.0) sec INR (<1.2) BUN 26 H (7-17) mg/dL Glucose 142 H (74-99) mg/dL POC Glucose (mg/dL) 139 H 195 H (75-99) mg/dL 06/30/18 Range/Units 16:40 WBC (3.8-10.6) k/uL Hct (34.0-46.0) % Neutrophils # (1.3-7.7) k/uL Monocytes # (0-1.0) k/uL PT (9.0-12.0) sec INR (<1.2) BUN (7-17) mg/dL Glucose (74-99) mg/dL POC Glucose (mg/dL) 205 H (75-99) mg/dL Assessment and Plan Assessment: right sided pleuritic chest pain, mostly related to infection, acute kidney injury COPD, in mild to moderate acute exacerbation sarcoidosis with history of pulmonary fibrosis History of congestive heart failure 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 Plan: this is a pleasant 48 years old female who presents with right-sided chest pain. Looks pleuritic in nature. Pulmonary consult is appreciated. Continue with steroids and pain management.continue with antibiotic given her leukocytosis. Also will bridge her subhepatic INR with Lovenox, which she usually takes when this happens. She is on high-dose of Coumadin a 12 mg at home. She is on [facility] pharmacy to dose now. Labs and medication were reviewed.. Continue same treatment. Continue with symptomatic treatment. Resume home medication. Monitor lytes and vitals. DVT and GI prophylaxis. Further recommendations of the clinical course of the patient DVT prophylaxis: on warfarin GI Prophylaxis: Pepcid Prognosis is guarded
[2018-06-30] MEDS ORDERED: WARFARIN 10 MG TAB PO ONE (18:00)
[2018-06-30 21:57] LABS: Glucose,Whole Blood 177 mg/dL (75-99)
[2018-06-30] MEDS: MIRTAZAPINE 15 MG TAB PO SCH (22:04)
[2018-06-30] MEDS: SODIUM CHLORIDE 0.9% 1,000 ML IV SCH (22:08)
[2018-07-01] MEDS: CLOTRIMAZOLE TROCHE 10 MG TROCHE MUCOUS MEM SCH ×4 (01:20→19:29)
[2018-07-01] MEDS: diphenhydrAMINE 50 MG/ML 1 ML VIAL IVP SCH ×3 (01:23→17:27)
[2018-07-01] MEDS: methylPREDNISolone SOD SUCCI 125 MG/2 ML VIAL IV SCH ×4 (01:23→17:27)
[2018-07-01] MEDS: MORPHINE SULFATE 4 MG/ML SYRINGE IV PRN ×8 (01:23→22:26)
[2018-07-01] MEDS: VANCOMYCIN 1,500 MG in SODIUM CHLORIDE 0.9% 250 ML IVPB SCH ×3 (01:24→17:27)
[2018-07-01 07:02] LABS: Glucose,Whole Blood 206 mg/dL (75-99)
[2018-07-01] MEDS: INSULIN ASPART (NovoLOG) 100 UNIT/ML VIAL SQ SCH ×4 (07:25→21:07)
[2018-07-01 07:55] LABS: Basophils # (A) 0.1 k/uL (0-0.2); Basophils % (A) 0 %; Eosinophils # (A) 0.1 k/uL (0-0.7); Eosinophils % (A) 0 %; HCT 48.5 % (34.0-46.0); HGB 15.4 gm/dL (11.4-16.0); Lymphocytes # (A) 1.7 k/uL (1.0-4.8); Lymphocytes % (A) 10 %; MCH 29.5 pg (25.0-35.0); MCHC 31.7 g/dL (31.0-37.0); Mean Platelet Volume 7.4; Monocytes % (A) 5 %; Neutrophils # (A) 14.7 k/uL (1.3-7.7); Neutrophils % (A) 84 %; Platelet Count 278 k/uL (150-450); RBC 5.22 m/uL (3.80-5.40); RDW 14.3 % (11.5-15.5); WBC 17.6 k/uL (3.8-10.6)
[2018-07-01 08:16] LABS: Carbon Dioxide 24 mmol/L (22-30)
[2018-07-01 08:26] LABS: Anion Gap 11 mmol/L; Blood Urea Nitrogen 28 mg/dL (7-17); Chloride 103 mmol/L (98-107); Glucose 211 mg/dL (74-99); Potassium 3.6 mmol/L (3.5-5.1); Sodium 138 mmol/L (137-145)
[2018-07-01] MEDS: FLUoxetine HCL 20 MG CAP PO SCH (08:39)
[2018-07-01] MEDS: PREGABALIN 75 MG CAP PO SCH ×2 (08:39→21:07)
[2018-07-01] MEDS: METOPROLOL TARTRATE 50 MG TAB PO SCH ×2 (08:39→21:06)
[2018-07-01] MEDS: POTASSIUM CHLORIDE ER 20 MEQ TAB.ER PO SCH (08:39)
[2018-07-01] MEDS: lamoTRIgine 100 MG TAB PO SCH (08:39)
[2018-07-01] MEDS: ALPRAZolam 0.5 MG TAB PO PRN ×2 (08:53→21:06)
[2018-07-01] MEDS: IPRATROPIUM-ALBUTEROL 3 ML NEB INHALATION SCH ×4 (08:55→20:45)
[2018-07-01] MEDS: BUMETANIDE 1 MG TAB PO SCH ×2 (10:20→14:55)
[2018-07-01 10:31] LABS: INR 2.7 (<1.2)
[2018-07-01 11:51] LABS: Glucose,Whole Blood 152 mg/dL (75-99)
[2018-07-01] MEDS: PROMETHAZ-COD 6.25-10 MG/5 ML 5 ML CUP PO PRN (14:45)
[2018-07-01] MEDS: LACTATED RINGERS 1,000 ML IV SCH (14:54)
[2018-07-01] MEDS: NYSTATIN 100,000 UNIT/GM POWD 15 GM TOPICAL SCH ×2 (14:54→21:08)
[2018-07-01] MEDS ORDERED: VANCOMYCIN TROUGH DUE 1 EACH MISC MISCELLANE ONE (16:00)
--- NOTE | 2018-07-01 16:21 | PN ---
PROGRESS NOTE This is a patient who was has been seen here in the hospital for a number of days, she has actually been here now for about 5 or 6 days. She was seen yesterday by the team. They ordered a flutter valve with some chest physiotherapy which has helped a bit. The patient is complaining of not being able to really cough up any phlegm. She actually requested a bronchoscopy and apparently Dr. Noyola planned to do a bronchoscopy on her earlier. Anyway, the patient just feels very short of breath, lots of chest congestion and feels like she is really not improving. We did get her scheduled for bronchoscopy in the morning. I am happy to do it even though she is anticoagulated with Coumadin. We are not planning on doing any biopsies. Currently, her vital signs are reasonably stable. Temperature 99.1, heart rate 18, respiratory rate 18, blood pressure 131/86, mean 101. 3 L saturation 96%. She appears in no acute distress. She is quite frustrated with the fact that she has not improved more. HEENT examination is grossly unremarkable. Mucous membranes are moist. There is no oral lesions. Neck is supple. Full range of motion. No adenopathy or thyromegaly. Neck veins are flat. Cardiovascular examination reveals regular rhythm and rate. S1, S2 normal. No S3, S4, or murmur. Heart rate about mid 70s. Heart sounds are somewhat distant. Lungs reveal coarse expiratory rhonchi. There are some expiratory wheezes and crackles. Breath sounds are diminished throughout, but equal bilaterally. Abdomen is soft. Bowel sounds are heard. Extremities are intact. No cyanosis, clubbing, or edema. Skin without rash. Neurologic examination is brief but nonfocal. LAB STUDIES: Showing some gram-negative bacilli in the sputum provided yesterday. No identification yet. White count 17.6, hemoglobin 15.4, hematocrit 48.5, platelet count 378,000. PT/INR was 26.0 and 2.7. Sodium, potassium, chloride, CO2 all normal. Anion gap normal. BUN and creatinine were 28 and 0.72. Medications are reviewed. She is on appropriate medications including updrafts, Solu-Medrol, and vancomycin. I believe I am going to go ahead and add a long-acting beta agonist and inhaled corticosteroid plus something for the gram-negative that was identified in the sputum. ASSESSMENT: 1. Right-sided pleuritic chest pain. 2. Interstitial lung disease, with biopsy-proven sarcoidosis. 3. Chronic obstructive pulmonary disease exacerbation. 4. Acute on chronic hypoxemic respiratory failure. 5. Status post sarcoid diagnosis 2014 at [facility]. 6. Previous multiple pneumonias with bronchoscopies positive for methicillin-resistant Staphylococcus aureus, Enterococcus faecalis and Staph species. 7. History of deep vein thrombosis/pulmonary embolism, currently on warfarin. 8. Previous history of viral meningitis. 9. Coronary artery disease with previous myocardial infarction. 10.Hypertension. 11.Hyperlipidemia. 12.Bipolar disorder. 13.Obesity. PLAN: The patient will be scheduled for bronchoscopy. No additional recommendations are made. Hopefully this will allow us to remove any secretions that are physically impinging or inhibiting her breathing. The sputum did come back for gram-negative bacilli. I will add some Zosyn or something else to the regimen. We will also add some Perforomist and Pulmicort. No additional recommendations are made. Prognosis is guarded. MMODL / IJN: [id number] /
[2018-07-01 17:12] LABS: Glucose,Whole Blood 169 mg/dL (75-99)
[2018-07-01] MEDS: PIPERACILLIN-TAZOBACTAM 3.375 GM in SODIUM CHLORIDE 0.9% 100 ML IVPB SCH ×2 (17:26→23:35)
[2018-07-01] MEDS ORDERED: WARFARIN 7.5 MG TAB PO ONE (18:00)
--- NOTE | 2018-07-01 18:59 | P.PN ---
Subjective this is a pleasant 48 years old female with past medical history of COPD, congestive heart failure, DVT, hyperlipidemia, coronary artery disease, hy pertension, pulmonary embolism, hypothyroidism,polycythemia, fibromyalgia, bipolar disorder. This time patient presents with right-sided chest pain, very low right breast, radiating to the back, about 4-5 days duration, pretty severe as per patient and start radiating up towards last couple days. Associated with some cough and flow #for the last 2-3 days. And associated with dyspnea. No other complaints. No dizziness or abdominal pain or change in urine or bowel habits. No fever. patient on home oxygen about 3 L via NC. patient about this looks stable, she is saturating 100% on 2 L oxygen. Labs showing mild leukocytosis of 12.5 K, INR 1.5,creatinine is normal 0.7, potassium 3.9, serial negative troponins.chest x-ray: Mild interstitial lung edema. EKG showing normal sinus rhythm at 76, no significant ST-T changes.she is currently on diuretic as Bumex. 06/29/2018 Patient lying in bed not in distress, she still dyspneic. No chest pain. chest physiotherapy is been ordered.pt has been progressing slowly , there is decreased air entry on both sides of the lung on examination. Patient was started with intravenous vancomycin for her history of MRSA. Patient notes creatinine is trending up slowly 1.3.I will hold the vancomycin .discussed the case with pulmonary team and they agree.protocol infectious disease for further recommendation. 06/30/2018 Patient still have some dyspnea, but she says she has lived with improvement, she has decreased air entry in both sides. Patient was started on vancomycin. Her creatinine is normal. The sugar is controlled. Also spirits. Physical therapy is provided for the patient and she feels a little better. Her INR today is 2.0. She has leukocytosis of 20 1.4K. 07/01/2018 Patient lying in bed, she still have dyspnea with tenacious phlegm and coughing. Pulmonary evaluated the patient and planning for bronchoscopy as she is not improving significantly. Review of systems CONSTITUTIONAL: No fever, no malaise, no fatigue. HEENT: No recent visual problems or hearing problems. Denied any sore throat. CARDIOVASCULAR: No orthopnea, PND, no palpitations, no syncope. PULMONARY: no hemoptysis. GASTROINTESTINAL: No diarrhea, no nausea, no vomiting, no abdominal pain. Normoactive bowel sounds. NEUROLOGICAL: No headaches, no weakness, no numbness. HEMATOLOGICAL: Denies any bleeding or petechiae. GENITOURINARY: Denies any burning micturition, frequency, or urgency. MUSCULOSKELETAL/RHEUMATOLOGICAL: Denies any joint pain, swelling, or any muscle pain. ENDOCRINE: Denies any polyuria or polydipsia. medication: Albuterol, Xanax, or coughing, Bumex, tramadol, Benadryl, doxycycline, Prozac, NovoLog, Ringer lactate, Lamictal, Antivert, Solu-Medrol, Lopressor, mirtazapine,morphine, nystatin, Zofran, Lyrica, Phenergan, Senokot, Coumadin Objective - Vital Signs Vital signs: Vital Signs Temp 98.2 F 07/01/18 14:17 Pulse 78 07/01/18 16:46 Resp 14 07/01/18 16:11 BP 133/90 07/01/18 14:17 Pulse Ox 94 L 07/01/18 14:17 Intake & Output 06/30/18 07/01/18 07/01/18 18:59 06:59 18:59 Intake Total 1210 310 250 Balance 1210 310 250 Intake: Intake, IV Titration 250 310 250 Amount Sodium Chloride 0.9% 1, 60 000 ml @ 20 mls/hr IV . Q24H AGNIESZKA Rx#:[id number] Vancomycin 1,500 mg In 250 250 250 Sodium Chloride 0.9% 250 ml @ 125 mls/hr IVPB Q8H AGNIESZKA Rx#:[id number] Oral 960 Other: Voiding Method Toilet - Exam GENERAL: The patient is alert and oriented x3, not in any acute distress. Well developed, well nourished. HEENT: Pupils are round and equally reacting to light. EOMI. No scleral icterus. No conjunctival pallor. Normocephalic, atraumatic. No pharyngeal erythema. No thyromegaly. CARDIOVASCULAR: S1 and S2 present. No murmurs, rubs, or gallops. -PULMONARY: Chest is clear to auscultation, mild bilateral scattered wheezing . no crackles. ABDOMEN: Soft, nontender, nondistended, normoactive bowel sounds. No palpable organomegaly. MUSCULOSKELETAL: No joint swelling or deformity. EXTREMITIES: No cyanosis, clubbing, or pedal edema. NEUROLOGICAL: Gross neurological examination did not reveal any focal deficits. SKIN: No rashes. - Labs CBC & Chem 7: 07/01/18 06:59 07/01/18 06:59 Labs: Abnormal Lab Results - Last 24 Hours (Table) 06/30/18 07/01/18 07/01/18 Range/Units 21:55 06:59 06:59 WBC 17.6 H (3.8-10.6) k/uL Hct 48.5 H (34.0-46.0) % Neutrophils # 14.7 H (1.3-7.7) k/uL PT (9.0-12.0) sec INR (<1.2) BUN 28 H (7-17) mg/dL Glucose 211 H (74-99) mg/dL POC Glucose (mg/dL) 177 H (75-99) mg/dL 07/01/18 07/01/18 07/01/18 Range/Units 06:59 07:00 11:46 WBC (3.8-10.6) k/uL Hct (34.0-46.0) % Neutrophils # (1.3-7.7) k/uL PT 26.0 H (9.0-12.0) sec INR 2.7 H (<1.2) BUN (7-17) mg/dL Glucose (74-99) mg/dL POC Glucose (mg/dL) 206 H 152 H (75-99) mg/dL 07/01/18 Range/Units 17:07 WBC (3.8-10.6) k/uL Hct (34.0-46.0) % Neutrophils # (1.3-7.7) k/uL PT (9.0-12.0) sec INR (<1.2) BUN (7-17) mg/dL Glucose (74-99) mg/dL POC Glucose (mg/dL) 169 H (75-99) mg/dL Microbiology - Last 24 Hours (Table) 06/30/18 08:00 Gram Stain - Preliminary Sputum Sputum Culture - Preliminary Gram Neg Bacilli Assessment and Plan Assessment: right sided pleuritic chest pain, mostly related to infection, acute kidney injury COPD, in mild to moderate acute exacerbation sarcoidosis with history of pulmonary fibrosis History of congestive heart failure 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 Plan: this is a pleasant 48 years old female who presents with right-sided chest pain. Looks pleuritic in nature. Pulmonary consult is appreciated. Continue with steroids and pain management.continue with antibiotic given her leukocytosis. Also will bridge her subhepatic INR with Lovenox, which she usually takes when this happens. She is on high-dose of Coumadin a 12 mg at home. She is on Coumadin pharmacy to dose now. Labs and medication were reviewed.. Continue same treatment. Continue with symptomatic treatment. Resume home medication. Monitor lytes and vitals. DVT and GI prophylaxis. Further recommendations of the clinical course of the patient DVT prophylaxis: on warfarin GI Prophylaxis: Pepcid Prognosis is guarded
[2018-07-01 19:43] LABS: Glucose,Whole Blood 221 mg/dL (75-99)
[2018-07-01] MEDS: FORMOTEROL FUMARATE 20 MCG/2 ML NEBU INHALATION SCH (20:45)
[2018-07-01] MEDS: BUDESONIDE 1 MG/2 ML NEBU INHALATION SCH (20:45)
[2018-07-01] MEDS: MIRTAZAPINE 15 MG TAB PO SCH (21:07)
[2018-07-01] MEDS: SODIUM CHLORIDE 0.9% 1,000 ML IV SCH (21:09)
[2018-07-02] MEDS: diphenhydrAMINE 50 MG/ML 1 ML VIAL IVP SCH ×2 (00:45→09:26)
[2018-07-02] MEDS: methylPREDNISolone SOD SUCCI 125 MG/2 ML VIAL IV SCH ×3 (00:45→13:08)
[2018-07-02] MEDS: VANCOMYCIN 1,500 MG in SODIUM CHLORIDE 0.9% 250 ML IVPB SCH ×2 (00:45→09:25)
[2018-07-02] MEDS: CLOTRIMAZOLE TROCHE 10 MG TROCHE MUCOUS MEM SCH ×3 (00:46→13:13)
[2018-07-02] MEDS: MORPHINE SULFATE 4 MG/ML SYRINGE IV PRN ×5 (01:20→14:06)
[2018-07-02] MEDS: FLUoxetine HCL 20 MG CAP PO SCH (07:29)
[2018-07-02] MEDS: METOPROLOL TARTRATE 50 MG TAB PO SCH (07:31)
[2018-07-02] MEDS: lamoTRIgine 100 MG TAB PO SCH (07:31)
[2018-07-02] MEDS: PREGABALIN 75 MG CAP PO SCH (07:33)
[2018-07-02 07:34] LABS: Glucose,Whole Blood 192 mg/dL (75-99)
[2018-07-02] MEDS: BUMETANIDE 1 MG TAB PO SCH ×2 (07:35→13:09)
[2018-07-02] MEDS: PIPERACILLIN-TAZOBACTAM 3.375 GM in SODIUM CHLORIDE 0.9% 100 ML IVPB SCH (07:35)
[2018-07-02] MEDS: BUDESONIDE 1 MG/2 ML NEBU INHALATION SCH (07:58)
[2018-07-02] MEDS: IPRATROPIUM-ALBUTEROL 3 ML NEB INHALATION SCH ×4 (07:58→15:27)
[2018-07-02] MEDS: FORMOTEROL FUMARATE 20 MCG/2 ML NEBU INHALATION SCH (07:58)
[2018-07-02 08:07] LABS: INR 2.2 (<1.2); Prothrombin Time 21.6 sec (9.0-12.0)
[2018-07-02 08:21] LABS: Basophils # (A) 0.1 k/uL (0-0.2); Basophils % (A) 0 %; Eosinophils # (A) 0.1 k/uL (0-0.7); Eosinophils % (A) 0 %; HCT 47.2 % (34.0-46.0); HGB 15.3 gm/dL (11.4-16.0); Lymphocytes # (A) 1.4 k/uL (1.0-4.8); Lymphocytes % (A) 8 %; MCH 30.3 pg (25.0-35.0); MCHC 32.3 g/dL (31.0-37.0); MCV 93.7 fL (80.0-100.0); Mean Platelet Volume 7.4; Monocytes % (A) 5 %; Neutrophils # (A) 16.4 k/uL (1.3-7.7); Neutrophils % (A) 86 %; Platelet Count 286 k/uL (150-450); RBC 5.04 m/uL (3.80-5.40); RDW 14.3 % (11.5-15.5)
[2018-07-02 08:27] LABS: Anion Gap 9 mmol/L; Blood Urea Nitrogen 25 mg/dL (7-17); Calcium 9.4 mg/dL (8.4-10.2); Carbon Dioxide 24 mmol/L (22-30); Chloride 104 mmol/L (98-107); Glucose 214 mg/dL (74-99); Potassium 3.8 mmol/L (3.5-5.1); Sodium 137 mmol/L (137-145)
[2018-07-02] MEDS: ALPRAZolam 0.5 MG TAB PO PRN (09:20)
[2018-07-02] MEDS: INSULIN ASPART (NovoLOG) 100 UNIT/ML VIAL SQ SCH ×2 (09:20→13:10)
[2018-07-02] MEDS: NYSTATIN 100,000 UNIT/GM POWD 15 GM TOPICAL SCH (09:21)
--- NOTE | 2018-07-02 11:53 | P.PN ---
Subjective this is a pleasant 48 years old female with past medical history of COPD, congestive heart failure, DVT, hyperlipidemia, coronary artery disease, hy pertension, pulmonary embolism, hypothyroidism,polycythemia, fibromyalgia, bipolar disorder. This time patient presents with right-sided chest pain, very low right breast, radiating to the back, about 4-5 days duration, pretty severe as per patient and start radiating up towards last couple days. Associated with some cough and flow #for the last 2-3 days. And associated with dyspnea. No other complaints. No dizziness or abdominal pain or change in urine or bowel habits. No fever. patient on home oxygen about 3 L via NC. patient about this looks stable, she is saturating 100% on 2 L oxygen. Labs showing mild leukocytosis of 12.5 K, INR 1.5,creatinine is normal 0.7, potassium 3.9, serial negative troponins.chest x-ray: Mild interstitial lung edema. EKG showing normal sinus rhythm at 76, no significant ST-T changes.she is currently on diuretic as Bumex. 06/29/2018 Patient lying in bed not in distress, she still dyspneic. No chest pain. chest physiotherapy is been ordered.pt has been progressing slowly , there is decreased air entry on both sides of the lung on examination. Patient was started with intravenous vancomycin for her history of MRSA. Patient notes creatinine is trending up slowly 1.3.I will hold the vancomycin .discussed the case with pulmonary team and they agree.protocol infectious disease for further recommendation. 06/30/2018 Patient still have some dyspnea, but she says she has lived with improvement, she has decreased air entry in both sides. Patient was started on vancomycin. Her creatinine is normal. The sugar is controlled. Also spirits. Physical therapy is provided for the patient and she feels a little better. Her INR today is 2.0. She has leukocytosis of 20 1.4K. 07/01/2018 Patient lying in bed, she still have dyspnea with tenacious phlegm and coughing. Pulmonary evaluated the patient and planning for bronchoscopy as she is not improving significantly. 07/02/2018 Patient clinically the same, slowly improving regarding her dyspnea. Plan for bronchoscopy today by the pulmonary team. Zosyn is added for gram-negative ba cilli in the sputum Review of systems CONSTITUTIONAL: No fever, no malaise, no fatigue. HEENT: No recent visual problems or hearing problems. Denied any sore throat. CARDIOVASCULAR: No orthopnea, PND, no palpitations, no syncope. PULMONARY: no hemoptysis. GASTROINTESTINAL: No diarrhea, no nausea, no vomiting, no abdominal pain. Normoactive bowel sounds. NEUROLOGICAL: No headaches, no weakness, no numbness. HEMATOLOGICAL: Denies any bleeding or petechiae. GENITOURINARY: Denies any burning micturition, frequency, or urgency. MUSCULOSKELETAL/RHEUMATOLOGICAL: Denies any joint pain, swelling, or any muscle pain. ENDOCRINE: Denies any polyuria or polydipsia. medication: Albuterol, Xanax, or coughing, Bumex, tramadol, Benadryl, doxycycline, Prozac, NovoLog, Ringer lactate, Lamictal, Antivert, Solu-Medrol, Lopressor, mirtazapine,morphine, nystatin, Zofran, Lyrica, Phenergan, Senokot, Coumadin Objective - Vital Signs Vital signs: Vital Signs Temp 98.2 F 07/02/18 01:47 Pulse 80 07/02/18 08:23 Resp 16 07/02/18 01:47 BP 121/77 07/02/18 01:47 Pulse Ox 93 L 07/02/18 01:47 Intake & Output 07/01/18 07/02/18 07/02/18 18:59 06:59 18:59 Intake Total 250 350 Balance 250 350 Intake: Intake, IV Titration 250 350 Amount Piperacillin-Tazobactam 3 100 .375 gm In Sodium Chloride 0.9% 100 ml @ 25 mls/hr IVPB Q8HR AGNIESZKA Rx# :[id number] Vancomycin 1,500 mg In 250 250 Sodium Chloride 0.9% 250 ml @ 125 mls/hr IVPB Q8H AGNIESZKA Rx#:[id number] Other: # Voids 1 - Exam GENERAL: The patient is alert and oriented x3, not in any acute distress. Well developed, well nourished. HEENT: Pupils are round and equally reacting to light. EOMI. No scleral icterus. No conjunctival pallor. Normocephalic, atraumatic. No pharyngeal erythema. No thyromegaly. CARDIOVASCULAR: S1 and S2 present. No murmurs, rubs, or gallops. -PULMONARY: Chest is clear to auscultation, mild bilateral scattered wheezing . no crackles. ABDOMEN: Soft, nontender, nondistended, normoactive bowel sounds. No palpable organomegaly. MUSCULOSKELETAL: No joint swelling or deformity. EXTREMITIES: No cyanosis, clubbing, or pedal edema. NEUROLOGICAL: Gross neurological examination did not reveal any focal deficits. SKIN: No rashes. - Labs CBC & Chem 7: 07/02/18 07:17 07/02/18 07:17 Labs: Abnormal Lab Results - Last 24 Hours (Table) 07/01/18 07/01/18 07/01/18 Range/Units 11:46 17:07 19:42 WBC (3.8-10.6) k/uL Hct (34.0-46.0) % Neutrophils # (1.3-7.7) k/uL PT (9.0-12.0) sec INR (<1.2) BUN (7-17) mg/dL Glucose (74-99) mg/dL POC Glucose (mg/dL) 152 H 169 H 221 H (75-99) mg/dL 07/02/18 07/02/18 07/02/18 Range/Units 07:17 07:17 07:17 WBC 19.0 H (3.8-10.6) k/uL Hct 47.2 H (34.0-46.0) % Neutrophils # 16.4 H (1.3-7.7) k/uL PT 21.6 H (9.0-12.0) sec INR 2.2 H (<1.2) BUN 25 H (7-17) mg/dL Glucose 214 H (74-99) mg/dL POC Glucose (mg/dL) (75-99) mg/dL 07/02/18 Range/Units 07:29 WBC (3.8-10.6) k/uL Hct (34.0-46.0) % Neutrophils # (1.3-7.7) k/uL PT (9.0-12.0) sec INR (<1.2) BUN (7-17) mg/dL Glucose (74-99) mg/dL POC Glucose (mg/dL) 192 H (75-99) mg/dL Microbiology - Last 24 Hours (Table) 06/30/18 08:00 Gram Stain - Preliminary Sputum Sputum Culture - Preliminary Gram Neg Bacilli Assessment and Plan Assessment: right sided pleuritic chest pain, mostly related to infection, acute kidney injury COPD, in mild to moderate acute exacerbation sarcoidosis with history of pulmonary fibrosis History of congestive heart failure 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 Plan: this is a pleasant 48 years old female who presents with right-sided chest pain. Looks pleuritic in nature. Pulmonary consult is appreciated. Continue with steroids and pain management.continue with antibiotic given her leukocytosis. Also will bridge her subhepatic INR with Lovenox, which she usually takes when this happens. She is on high-dose of Coumadin a 12 mg at home. She is on Coumadin pharmacy to dose now. Labs and medication were reviewed.. Continue same treatment. Continue with symptomatic treatment. Resume home medication. Monitor lytes and vitals. DVT and GI prophylaxis. Further recommendations of the clinical course of the patient DVT prophylaxis: on warfarin GI Prophylaxis: Pepcid Prognosis is guarded
[2018-07-02] MEDS ORDERED: IV FLUID CONTINUATION 1,000 ML IV ONE (11:55)
[2018-07-02] MEDS ORDERED: PROPOFOL 10 MG/ML 20 ML VIAL IV ONE (11:55)
--- NOTE | 2018-07-02 12:02 | P.PN ---
Subjective Progress Note Date: 07/02/18 Principal diagnosis: Acute exacerbation of chronic obstructive pulmonary disease This is a very pleasant 48-year-old female patient who follows with Dr. Koch as her primary care physician. She has a history of bipolar disorder, fibromyalgia, coronary artery disease with previous MA, hypertension, hyperlipidemia, chronic pain and chronic narcotic use, chronic obstructive pulmonary disease. Previous PE/DVT and anticoagulated with warfarin. She also has a history of biopsy-proven sarcoidosis. She's had ventilator-dependent respiratory failure and bronchoscopies in the past which have grown MRSA, Enterococcus faecalis and Staphylococcus species. Last bronchoscopy 6 months ago. She presented to the emergency room on 06/22/2018 with complaints of right-sided chest discomfort and pain on inspiration. She was given steroids and pain medication. She represented here yesterday with similar symptoms. Not much improvement. Chest x-ray shows some changes of mild interstitial edema. No major atelectasis or evidence of pneumonia. White count 12.5. Hemoglobin 1 4.9. INR 1.5. Creatinine 0.74. Troponins negative 3. EKG showed no ST or T wave abnormalities. She is seen today on the regular medical floor and consultation. She is awake and alert in no acute distress. She is still having ongoing issues with right-sided chest discomfort more so with deep inhalation. She has a loose nonproductive cough. No fever chills or night sweats. Maintaining good O2 saturations up to 100% on 2 L/m per nasal cannula. She's afebrile. Hemodynamically stable. She has been initiated on bronchodilators and promethazine. She has been requesting pain medications. She's currently on morphine 4 mg IV every 4 hours. The patient is seen today 06/26/2018 in follow-up on the selective care unit. She is awake and alert in no acute distress. She is still dyspneic with minimal exertion. She still has a loose nonproductive cough. No chills or night sweats. She is maintaining O2 saturations in the upper 90s on 4 L/m per nasal cannula. She remains afebrile. Hemodynamically stable. White count 12.0. Hemoglobin 15.0. INR 2.5. Creatinine 0.61. She remains on DuoNeb inhalations, IV Solu-Medrol, antibiotics. The patient is seen today 06/27/2018 in follow-up on the selective care unit. She is currently sitting up in bed having lunch. Awake and alert in no acute distress. She has been slow to progress and feels she is not getting any better. She was started on vancomycin yesterday. Continues to maintain O2 saturations in the mid 90s on 3 L/m per nasal cannula. She's been afebrile. Hemodynamically stable. White count 11.6. Hemoglobin 13.6. INR 2.8. Creatinine 0.53. The patient is seen today 06/28/2017 in follow-up on the regular medical floor. She remains awake and alert in no acute distress. The plan was for bronchoscopy with BAL today on her chair INR still 2.2. She is maintaining good O2 saturations in the mid 90s on 3 L/m per nasal cannula. She remains afebrile. Hemodynamically stable. White count 11.9. Hemoglobin 13.4. INR 2.2. Creatinine 0.59. She remains on vancomycin and doxycycline. Remains on IV Solu-Medrol and bronchodilators. Patient is seen today 06/29/2018 in follow-up on the regular medical floor. Continues to have chronic coughing and now bringing up some small amounts of phlegm. She is maintaining good O2 saturations in the 90s on 3 L/m per nasal cannula. She's been afebrile. White count 17.2. Hemoglobin 15.1. INR 1.6. Creatinine 0.76. The patient is seen again today 06/30/2018 in follow-up on the regular medical floor. She is improved today as compared to yesterday. CPT therapy to the chest has helped her to bring up some mucus. Flutter valve ordered as well. She is maintaining good O2 saturations in the mid 90s on 3 L/m per nasal cannula. She's been afebrile. Hemodynamically stable. White count 21. Hemoglobin 15.6. INR 2.0. Creatinine 0.70. She remains on vancomycin and doxycycline. IV Solu-Medrol. Bronchodilators. 1 07/02/2018 patient seen in follow-up in the endoscopy suite, patient is being prepared for bronchoscopy with BAL today, she states her breathing is very slightly improved, however her chest still tight, and she is not able to bring up much sputum, occasionally she brings up small amounts of very thick grayish colored sputum. No fever or chills, lung sounds reveal very diminished breath sounds on the right, with the better aeration of the left lung, with some scattered rhonchi and wheezes. Patient is on 3 L of oxygen with a pulse ox of 93%. lab work has been reviewed today, white blood cell count is 19.0, hemoglobin is 15.3, INR today is 2.2, last night Coumadin has been held, electrodes are within normal limits, BUN is 25 creatinine 0.78. patient is on empiric antibiotic coverage in the form of Zosyn and vancomycin, sputum culture showed gram-negative bacilli, final cultures pending Objective - Vital Signs Vital signs: Vital Signs Temp 98.2 F 07/02/18 01:47 Pulse 80 07/02/18 08:23 Resp 16 07/02/18 01:47 BP 121/77 07/02/18 01:47 Pulse Ox 93 L 07/02/18 01:47 Intake & Output 07/01/18 07/02/18 07/02/18 18:59 06:59 18:59 Intake Total 250 350 Balance 250 350 Intake: Intake, IV Titration 250 350 Amount Piperacillin-Tazobactam 3 100 .375 gm In Sodium Chloride 0.9% 100 ml @ 25 mls/hr IVPB Q8HR AGNIESZKA Rx# :[id number] Vancomycin 1,500 mg In 250 250 Sodium Chloride 0.9% 250 ml @ 125 mls/hr IVPB Q8H AGNIESZKA Rx#:[id number] Other: # Voids 1 - Exam GENERAL EXAM: Alert, pleasant, overweight 48-year-old white female, on 3 L of oxygencomfortable in no apparent distress. HEAD: Normocephalic/atraumatic. EYES: Normal reaction of pupils, equal size. Conjunctiva pink, sclera white. NOSE: Clear with pink turbinates. THROAT: No erythema or exudates. NECK: No masses, no JVD, no thyroid enlargement, no adenopathy. CHEST: No chest wall deformity. Symmetrical expansion. LUNGS: Diminished breath sounds over right lung, scattered rhonchi and wheezes on the left. CVS: Regular rate and rhythm, normal S1 and S2, no gallops, no murmurs, no rubs ABDOMEN: Soft, nontender. No hepatosplenomegaly, normal bowel sounds, no guarding or rigidity. EXTREMITIES: No clubbing, no edema, no cyanosis, 2+ pulses and upper and lower extremities. MUSCULOSKELETAL: Muscle strength and tone normal. SPINE: No scoliosis or deformity SKIN: No rashes CENTRAL NERVOUS SYSTEM: Alert and oriented -3. No focal deficits, tone is normal in all 4 extremities. PSYCHIATRIC: Alert and oriented -3. Appropriate affect. Intact judgment and insight. - Labs CBC & Chem 7: 07/02/18 07:17 07/02/18 07:17 Labs: Abnormal Lab Results - Last 24 Hours (Table) 07/01/18 07/01/18 07/02/18 Range/Units 17:07 19:42 07:17 WBC 19.0 H (3.8-10.6) k/uL Hct 47.2 H (34.0-46.0) % Neutrophils # 16.4 H (1.3-7.7) k/uL PT (9.0-12.0) sec INR (<1.2) BUN (7-17) mg/dL Glucose (74-99) mg/dL POC Glucose (mg/dL) 169 H 221 H (75-99) mg/dL 07/02/18 07/02/18 07/02/18 Range/Units 07:17 07:17 07:29 WBC (3.8-10.6) k/uL Hct (34.0-46.0) % Neutrophils # (1.3-7.7) k/uL PT 21.6 H (9.0-12.0) sec INR 2.2 H (<1.2) BUN 25 H (7-17) mg/dL Glucose 214 H (74-99) mg/dL POC Glucose (mg/dL) 192 H (75-99) mg/dL Microbiology - Last 24 Hours (Table) 06/30/18 08:00 Gram Stain - Preliminary Sputum Sputum Culture - Preliminary Gram Neg Bacilli Assessment and Plan Plan: #1 Right-sided chest pain suspect pleuritic in nature. #2 Interstitial lung disease, biopsy-proven sarcoidosis. #3 Acute exacerbation of chronic obstructive pulmonary disease. #4 Acute on chronic hypoxic respiratory failure secondary to above. #5 Sarcoidosis confirmed by lung biopsy at [facility] 2014. #6 Previous management liter dependent respiratory failure and previous pneumonias with bronchoscopies positive for MRSA, Enterococcus faecalis and staphylococcal species. #7 history of PE/DVT, anticoagulated with warfarin, currently subtherapeutic. #8 History of viral meningitis.. #9 Coronary artery disease with previous MA. #10 Hypertension. #11 Hyperlipidemia. #12 Bipolar disorder. #13 Chronic pain syndrome currently on morphine in the outpatient setting. #14 Morbid obesity. Plan: We'll continue with current medical treatment, await final results of the sputum culture, will proceed with bronchoscopy with BAL today. Continue current dose of IV Solu-Medrol and nebulized bronchodilators. May resume Coumadin tonight. We'll continue to follow I performed a history & physical examination of the patient and discussed their management with my nurse practitioner, Cydney Hart. I reviewed the nurse practitioner's note and agree with the documented findings and plan of care. Maria Isabel ng sounds are positive for scattered rhonchi and wheezes over left lung, decreased breath sounds over right lung. The findings and the impression was discussed with the patient. I attest to the documentation by the nurse practitioner. Time with Patient: Less than 30
[2018-07-02] MEDS ORDERED: LIDOCAINE 2% INJ 20 MG/ML INTRATRACH ONE (12:11)
--- NOTE | 2018-07-02 12:49 | PCN ---
PROCEDURE NOTE PROCEDURE: Bronchoscopy, airway examination, therapeutic lavage, BAL. PREOPERATIVE DIAGNOSIS: Chronic obstructive pulmonary disease exacerbation/purulent tracheobronchitis/pneumonia. POSTOPERATIVE DIAGNOSIS: Chronic obstructive pulmonary disease exacerbation/purulent tracheobronchitis/pneumonia. There was informed consent. There was universal timeout. OPERATORS: Dr. Clark and Dr. Roper. PROCEDURE: The patient's procedure took place in room #1 in [facility]. Anesthesia provided unconscious sedation/general anesthesia. After the patient was adequately sedated and being fully monitored, the bronchoscope was inserted through the left nostril. It passed through the left nasopharynx into the oropharynx. The hypopharynx was identified. All the hypopharyngeal structures looked normal including anterior commissure, true cords, false cords, arytenoids, piriform sinuses, right and left vallecula and epiglottis. After topicalization, bronchoscope was pushed through the glottic opening into the trachea. Trachea appeared normal. Tracheal julianne was sharp. The right and left mainstem were topicalized. Right upper lobe and its 3 segments, right middle lobe and its 2 segments, right lower lobe and its 5 segments, the left upper lobe proper and its 2 segments, the lingula and its 2 segments and the left lower lobe and its 4 segments all had similar findings of mild bronchitis. There was mild erythema and hyperemia of the airways. There was some minimal amount of foamy looking secretions. There was no dominant mass or tumor. There was no bleeding. There was minimal vascular engorgement. The bronchoscope was then wedged into the right middle lobe. The BAL took place. The patient tolerated the procedure well and the bronchoscope was withdrawn. There was no immediate complication. The patient will be recovered. MMODL / IJN: [id number] /
[2018-07-02 13:04] LABS: Glucose,Whole Blood 126 mg/dL (75-99)
[2018-07-02] MEDS: POTASSIUM CHLORIDE ER 20 MEQ TAB.ER PO SCH (13:08)
[2018-07-02] MEDS: PROMETHAZ-COD 6.25-10 MG/5 ML 5 ML CUP PO PRN (13:08)
[2018-07-02] MEDS: LACTATED RINGERS 1,000 ML IV SCH (13:13)
[2018-07-02 14:46] VITALS: BP 137/88; PULSE 61; RESP 20; TEMP 99.1
[2018-07-02 17:08] LABS: Appearance,BF Cloudy; Color,BF Colorless; Nucleated Cells, Body Fluid 325 /uL; RBC, Body Fluid 260 /uL
[2018-07-02 17:09] LABS: Mononuclear WBC,Body Fluid 11 %; Polynuclear WBC,Body Fluid 89 %
[2018-07-02] MEDS ORDERED: WARFARIN 10 MG TAB PO ONE (18:00)
--- NOTE | 2018-07-02 23:09 | P.DS ---
Providers Date of admission: 06/26/18 13:36 Attending physician: Gonsalo Church Consults: 06/24/18 20:44 Consult Physician Routine Consulting Provider: Gayle Hicks Consult Reason/Comments: Dyspnea Do you want consulting provider notified?: Yes Primary care physician: Liz Koch [facility] Course: Dx right sided pleuritic chest pain, mostly related to infection, acute kidney injury COPD, in mild to moderate acute exacerbation sarcoidosis with history of pulmonary fibrosis History of congestive heart failure 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 hospital course this is a pleasant 48 years old female with past medical history of COPD, congestive heart failure, DVT, hyperlipidemia, coronary artery disease, hypertension, pulmonary embolism, hypothyroidism,polycythemia, fibromyalgia, bipolar disorder. This time patient presents with right-sided chest pain, with dyspnea and decreased air entery, pt was treated with antibiotic , steroid and breathing treatment . pulmonary team were following the case . however pt did n ot improve significantly . eventually pulmonary team did bronchoscopy for the pt, after which pt felt great relief and her airway aeriation is significantly improved. pt could ambulate with no difficutly . also pt chest pain resolved. pt returned close to her baseline. pt was cleared by pulmonary team for discharge. the pulmonary team also recommend to discharge pt on augmentin and tapered dose of steroid pt felt better and she can go home Pt was instructed about the problems and management plan and Pt verbalized understanding and acceptance Pt is found stable and can be discharged to the community but needs follow up as outpt. appointment were made with pulmonary and pcp offices and pt agrees with them Discharge exam Gen.: Patient alert awake and oriented X 3, NOT IN DISTRESS CVS: s1-s2, RRR, no murmur CHEST:bilateral CTA, no wheezing or crepitation Abdomen: Soft, no tenderness, no distention, positive bowel sounds Extremities: No leg edema or induration time spent : more than 35 min Patient Condition at Discharge: Serious Plan - Discharge Summary Discharge Rx Participant: Yes New Discharge Prescriptions: New Amoxicillin/Potassium Clav [Augmentin 875-125 Tablet] 1 tab PO Q12HR #14 tab predniSONE 0 mg PO DIRECTED #30 tab guaiFENesin SYRUP 100MG/5ML [Robitussin] 10 mg PO Q6HR 5 Days #1 bottle Continue FLUoxetine HCL [PROzac] 20 mg PO DAILY #30 capsule Metoprolol Tartrate [Lopressor] 50 mg PO BID #60 tab lamoTRIgine [LaMICtal] 200 mg PO DAILY Bumetanide 4 mg PO QAM Butalb/APAP/Caff 50-325-40Mg [Fioricet 50-325-40] 1 tab PO Q4H PRN PRN Reason: Migraine Headache Mirtazapine [Remeron] 45 mg PO HS ALPRAZolam [Xanax] 0.5 mg PO TID PRN PRN Reason: Anxiety Pregabalin [Lyrica] 150 mg PO BID Bumetanide [BUMEX] 2 mg PO DAILY@1200 Baclofen [Lioresal] 20 mg PO Q8H PRN PRN Reason: Muscle Pain Morphine Sulfate ER [Ms Contin] 30 mg PO Q8H PRN PRN Reason: Pain Nystatin 100,000 Unit/gm Powd [Mycostatin Powder] 1 applic TOPICAL BID Promethazine/Dextromethorphan [Promethazine-Dm Solution] 5 ml PO Q6H PRN PRN Reason: Cough Docusate [Colace] 100 mg PO BID PRN #60 cap PRN Reason: Constipation Potassium Chloride ER [K-Dur 20] 20 meq PO DAILY #30 tab.er.prt Sennosides-Docusate Sodium [Senokot-S] 2 tab PO BID PRN PRN Reason: Constipation Hydrocodone/Acetaminophen [[place] 10-325] 1 tab PO Q6H PRN 3 Days #12 tab PRN Reason: Pain Warfarin [Coumadin] 10 mg PO HS Meclizine HCl 25 mg PO TID PRN PRN Reason: Vertigo Ipratropium-Albuterol Nebulize [Duoneb 0.5 mg-3 mg/3 ml Soln] 3 ml INHALATION RT-QID PRN PRN Reason: Shortness Of Breath Warfarin Sodium [Coumadin] 2 mg PO HS Ondansetron [Zofran ODT] 4 mg PO BID Discharge Medication List FLUoxetine HCL [PROzac] 20 mg PO DAILY #30 capsule 08/20/15 [Rx] Metoprolol Tartrate [Lopressor] 50 mg PO BID #60 tab 08/20/15 [Rx] lamoTRIgine [LaMICtal] 200 mg PO DAILY 03/22/16 [History] Bumetanide 4 mg PO QAM 10/18/16 [History] Butalb/APAP/Caff 50-325-40Mg [Fioricet 50-325-40] 1 tab PO Q4H PRN 10/18/16 [History] Mirtazapine [Remeron] 45 mg PO HS 04/10/17 [History] ALPRAZolam [Xanax] 0.5 mg PO TID PRN 06/06/17 [History] Bumetanide [BUMEX] 2 mg PO DAILY@1200 09/16/17 [History] Pregabalin [Lyrica] 150 mg PO BID 09/16/17 [History] Baclofen [Lioresal] 20 mg PO Q8H PRN 10/09/17 [History] Morphine Sulfate ER [Ms Contin] 30 mg PO Q8H PRN 11/03/17 [History] Nystatin 100,000 Unit/gm Powd [Mycostatin Powder] 1 applic TOPICAL BID 11/04/17 [History] Promethazine/Dextromethorphan [Promethazine-Dm Solution] 5 ml PO Q6H PRN 11/04/17 [History] Docusate [Colace] 100 mg PO BID PRN #60 cap 11/10/17 [Rx] Potassium Chloride ER [K-Dur 20] 20 meq PO DAILY #30 tab.er.prt 11/10/17 [Rx] Sennosides-Docusate Sodium [Senokot-S] 2 tab PO BID PRN 12/07/17 [History] Hydrocodone/Acetaminophen [[place] 10-325] 1 tab PO Q6H PRN 3 Days #12 tab 12/09/17 [Rx] Warfarin [Coumadin] 10 mg PO HS 01/20/18 [History] Ipratropium-Albuterol Nebulize [Duoneb 0.5 mg-3 mg/3 ml Soln] 3 ml INHALATION RT-QID PRN 05/22/18 [History] Meclizine HCl 25 mg PO TID PRN 05/22/18 [History] Ondansetron [Zofran ODT] 4 mg PO BID 06/24/18 [History] Warfarin Sodium [Coumadin] 2 mg PO HS 06/24/18 [History] Amoxicillin/Potassium Clav [Augmentin 875-125 Tablet] 1 tab PO Q12HR #14 tab 07/02/18 [Rx] guaiFENesin SYRUP 100MG/5ML [Robitussin] 10 mg PO Q6HR 5 Days #1 bottle 07/02/18 [Rx] predniSONE 0 mg PO DIRECTED #30 tab 07/02/18 [Rx] Follow up Appointment(s)/Referral(s): Miesha Ramirez FNPBC [REFERRING] - 07/05/18 8:30 am [facility] [NON-STAFF] - Gayle Hicks MD [STAFF PHYSICIAN] - 07/11/18 10:15 am (Please arrive at 10:00 to fill out paperwork for name and new insurance) [facility] Visiting Nurse, [NON-STAFF] - Activity/Diet/Wound Care/Special Instructions: Nebulizer will be delivered to the bedside by [facility] prior to discharge. low carbohydrate diet activity is limited till you see your doctor Discharge Disposition: HOME SELF-CARE
--- NOTE | 2018-07-03 13:34 | CDI ---
Documentation Clarification Form Date: 07/03/2018 1:19:41 PM From: FÉLIX Javed; Mary Brown Fence Supervisor Phone: If you have a question about this query, please contact Mary Brown Fence Supervisor at [phone] between 8am and 5pm. Admit Date: 06/26/2018 1:36:00 PM Patient Name: Meme Jones Visit Number: [id number] Discharge Date: 07/02/2018 3:15:00 PM ATTENTION: The Clinical Documentation Specialists (CDI) and [facility] Coding Staff appreciate your assistance in clarifying documentation. Please respond to the clarification below the line at the bottom and electronically sign. The CDI & [facility] Coding staff will review the response and follow-up if needed. Please note: Queries are made part of the Legal Health Record. If you have any questions, please contact the author of this message via ITS. Dr. Souza Sheet The patient presented with right sided chest pain. History/Risk Factors: COPD, O2 dependent, sarcoidosis, history of pneumonia and CHF. Clinical Indicators: Chest pain with associated cough and dyspnea. Lab findings: WBC 12.5 Radiology findings: Pulmonary congestion Vital Signs: 98.0, 84, 18, 128/68 94% 4L Treatment: IV Vancomycin BAL performed noted pre and post operative diagnosis of purulent tracheobronchitis/pneumonia, and mild bronchitis noted during bronchosocpy. In your professional opinion, can you please clarify the respiratory condition you were treating and/or possible/probable? Tracheobronchitis Pneumonia Other, please specify Unable to determine Patient most likely have pneumonia, versus acute tracheobronchitis MTDD
== END 2018-07-02 15:15 | disposition home or self-care (01) | DRG 193 ==
LOC: EC 17:23 → 4SSUR 21:40 → OBSVTOIN 06-26 13:36
PROVIDERS: ADMIT Hospitalist; ATTEND Hospitalist
PROC: 0B9D8ZX Drainage of Right Middle Lung Lobe, Via Natural or Artificial Opening Endoscopic, Diagnostic (ICD-10-PCS; principal; 2018-06-26)
DX: J18.9 Pneumonia, unspecified organism (principal); J96.21 Acute and chronic respiratory failure with hypoxia; I26.99 Other pulmonary embolism without acute cor pulmonale; J44.1 Chronic obstructive pulmonary disease with (acute) exacerbation; N17.9 Acute kidney failure, unspecified; J44.0 Chronic obstructive pulmonary disease with (acute) lower respiratory infection; D86.0 Sarcoidosis of lung; J20.9 Acute bronchitis, unspecified; E03.9 Hypothyroidism, unspecified; E66.01 Morbid (severe) obesity due to excess calories; Z68.37 Body mass index [BMI] 37.0-37.9, adult; E78.5 Hyperlipidemia, unspecified; F17.200 Nicotine dependence, unspecified, uncomplicated; F31.9 Bipolar disorder, unspecified; F41.0 Panic disorder [episodic paroxysmal anxiety]; G89.4 Chronic pain syndrome; I11.0 Hypertensive heart disease with heart failure; I25.10 Atherosclerotic heart disease of native coronary artery without angina pectoris; I25.2 Old myocardial infarction; I50.9 Heart failure, unspecified; J84.10 Pulmonary fibrosis, unspecified; M79.7 Fibromyalgia; Z79.01 Long term (current) use of anticoagulants; Z79.52 Long term (current) use of systemic steroids; Z79.891 Long term (current) use of opiate analgesic; Z79.899 Other long term (current) drug therapy; Z82.49 Family history of ischemic heart disease and other diseases of the circulatory system; Z83.3 Family history of diabetes mellitus; Z86.14 Personal history of Methicillin resistant Staphylococcus aureus infection; Z86.61 Personal history of infections of the central nervous system; Z86.711 Personal history of pulmonary embolism; Z86.718 Personal history of other venous thrombosis and embolism; Z91.19 Patient's noncompliance with other medical treatment and regimen; Z99.81 Dependence on supplemental oxygen
CPT/HCPCS: 31624; 36415; 71046; 80048; 80053; 80202; 81025; 83735; 84132; 84484; 85025; 85610; 85730; 87070; 87077; 87102; 87116; 87186; 87205; 87206; 87252; 87496; 87498; 87502; 87529; 87634; 87798; 88108; 88305; 89050; 93005; 94640; 94667; 94668; 94760; 96361; 96374; 96375; 99285

== ENCOUNTER 2018-07-03 10:31 | Inpatient (IN) | payer BC, OTHER ==
[2018-07-03] MEDS ORDERED: SENNOSIDES-DOCUSATE SODIUM 1 EACH TAB PO PRN (12:18)
[2018-07-03] MEDS ORDERED: DOCUSATE 100 MG CAP PO PRN (12:18)
[2018-07-03] MEDS ORDERED: MECLIZINE 25 MG TAB PO PRN (12:18)
[2018-07-03] MEDS ORDERED: BUTALB/APAP/CAFF 50-325-40MG TAB PO PRN (12:18)
[2018-07-03] MEDS ORDERED: BACLOFEN 10 MG TAB PO PRN (12:18)
[2018-07-03] MEDS ORDERED: MORPHINE SULFATE 4 MG/ML SYRINGE IVP PRN (12:26)
[2018-07-03 12:45] VITALS: BMI 40.0
[2018-07-03] MEDS ORDERED: MORPHINE SULFATE 4 MG/ML SYRINGE IM STA (12:47)
[2018-07-03 12:58] LABS: Basophils # (A) 0.1 k/uL (0-0.2); Basophils % (A) 0 %; Eosinophils # (A) 0.2 k/uL (0-0.7); Eosinophils % (A) 1 %; HCT 49.9 % (34.0-46.0); HGB 16.6 gm/dL (11.4-16.0); Lymphocytes # (A) 6.2 k/uL (1.0-4.8); Lymphocytes % (A) 25 %; MCH 30.4 pg (25.0-35.0); MCHC 33.2 g/dL (31.0-37.0); MCV 91.7 fL (80.0-100.0); Mean Platelet Volume 7.4; Monocytes # (A) 1.7 k/uL (0-1.0); Monocytes % (A) 7 %; Neutrophils # (A) 16.1 k/uL (1.3-7.7); Neutrophils % (A) 65 %; Platelet Count 338 k/uL (150-450); RBC 5.44 m/uL (3.80-5.40); RDW 15.1 % (11.5-15.5); WBC 24.7 k/uL (3.8-10.6)
[2018-07-03 13:02] LABS: Albumin 3.6 g/dL (3.5-5.0); Calcium 9.2 mg/dL (8.4-10.2); Potassium 3.5 mmol/L (3.5-5.1); Total Bilirubin 0.7 mg/dL (0.2-1.3); Total Protein 6.5 g/dL (6.3-8.2)
[2018-07-03 13:04] LABS: INR 1.3 (<1.2)
[2018-07-03 13:05] LABS: Prothrombin Time 13.1 sec (9.0-12.0)
[2018-07-03] MEDS: ALPRAZolam 0.5 MG TAB PO PRN (13:09)
--- NOTE | 2018-07-03 13:37 | XR ---
EXAMINATION TYPE: XR chest 2V DATE OF EXAM: 07/03/2018 COMPARISON: 06/24/2018 TECHNIQUE: PA and lateral views submitted. HISTORY: Cough FINDINGS: Limited inspiration with subsegmental changes at the left lung base. Heart size stable. Bilateral ple ural thickening. No overt failure. No pneumothorax. IMPRESSION: 1. Elevated hemidiaphragm with linear subsegmental changes at the left lung base for which atelectasi s is favored over infiltrate correlate clinically.
[2018-07-03] MEDS: predniSONE 10 MG TAB PO SCH (14:41)
[2018-07-03] MEDS ORDERED: DEXTROMETHORPHAN PO PRN (15:03)
[2018-07-03] MEDS ORDERED: PROMETHAZINE PO PRN (15:03)
[2018-07-03] MEDS ORDERED: guaiFENesin SYRUP 100MG/5ML 200 MG/10 ML CUP PO PRN ×2 (15:14→16:17)
[2018-07-03] MEDS ORDERED: SODIUM CHLORIDE 0.9% 1,000 ML IV SCH (15:30)
[2018-07-03] MEDS: IPRATROPIUM-ALBUTEROL 3 ML NEB INHALATION PRN ×2 (15:50→19:50)
[2018-07-03] MEDS: CLOTRIMAZOLE TROCHE 10 MG TROCHE MUCOUS MEM SCH ×2 (16:16→23:00)
[2018-07-03] MEDS: HYDROcodone/APAP 10-325MG 1 EACH TAB PO PRN (16:16)
[2018-07-03] MEDS ORDERED: MORPHINE SULFATE 4 MG/ML SYRINGE IM PRN (17:03)
[2018-07-03] MEDS ORDERED: guaiFENesin SYRUP 100MG/5ML 200 MG/10 ML CUP PO SCH (18:00)
[2018-07-03] MEDS: CEFEPIME 2 GM in SODIUM CHLORIDE 0.9% 100 ML IVPB SCH ×2 (18:53→23:00)
[2018-07-03] MEDS: MORPHINE SULFATE 4 MG/ML SYRINGE IVP PRN (20:39)
[2018-07-03] MEDS ORDERED: MIRTAZAPINE 45 MG TABLET PO SCH (21:00)
[2018-07-03] MEDS ORDERED: WARFARIN 10 MG TAB PO SCH (21:00)
[2018-07-03] MEDS ORDERED: FAMOTIDINE 20 MG/2 ML VIAL IV SCH (21:00)
[2018-07-03] MEDS ORDERED: WARFARIN 2 MG TAB PO SCH (21:00)
--- NOTE | 2018-07-03 21:09 | CT ---
EXAMINATION TYPE: CT chest wo con DATE OF EXAM: 07/03/2018 COMPARISON: 11/23/2017 HISTORY: Pneumonia. CT DLP: 742.5 mGycm. Automated Exposure Control for Dose Reduction was Utilized. TECHNIQUE: CT scan of the thorax is performed without IV contrast. FINDINGS: The lungs are clear of consolidation. There is slight coarsening of the interstitial markings at the lung bases. There is no pleural effusion. There is no pericardial effusion. Heart size is normal. The re are no hilar masses. There is no mediastinal adenopathy. Thoracic aorta shows no evidence of aneur ysm. I see no bony destructive process. Upper abdominal soft tissues are unremarkable. IMPRESSION: Minimal subsegmental atelectasis at the posterior lung bases. There is clearing of the ex tensive reticular interstitial pulmonary bilateral infiltrates compared to old exam.
--- NOTE | 2018-07-03 21:25 | P.HPIM ---
History of Present Illness this is a pleasant 48 years old female with past medical history of COPD, congestive heart failure, DVT, hyperlipidemia, coronary artery disease, hypertension, pulmonary embolism, hypothyroidism,polycythemia, fibromyalgia, bipolar disorder. Patient was been discharged yesterday from the hospital for acute COPD exacerbation, and pulmonary congestion. The pt was been evaluated by pulmonology at that time, she had bronchoscopy, she felt better and she cleared by pulmonary team to be discharged on steroid taper and Augmentin, however her sputum culture came back positive for pseudomonas which is resistant to Cipro. She'll we also patient and she came to the hospital again. On admission patient has similar presentation to last time, she has right-sided chest pain, below right breast, radiating to the back, s. Associated with some cough and associated with dyspnea, which is more with exertion. No other complaints. No dizziness or abdominal pain or change in urine or bowel habits. No fever. patient on home oxygen about 3 L via [place]. Chest x-ray showing an linear subsegmental changes of the left lung base, atelectasis versus infiltrate. On admission patient has worsening leukocytosis going on from 19 to 24.7K. alth ough pt is on steroid, given the pt is still symptomatic, i prefer pt is been evaluated by ID team for possible treatment. since the antibiotic suggested by pulmonary team Augmentin is mostly not effective on pseudomonas Review of Systems CONSTITUTIONAL: No fever, no malaise, no fatigue. HEENT: No recent visual problems or hearing problems. Denied any sore throat. CARDIOVASCULAR: No orthopnea, PND, no palpitations, no syncope. PULMONARY: No shortness of breath, no cough, no hemoptysis. GASTROINTESTINAL: No diarrhea, no nausea, no vomiting, no abdominal pain. Normoactive bowel sounds. NEUROLOGICAL: No headaches, no weakness, no numbness. HEMATOLOGICAL: Denies any bleeding or petechiae. GENITOURINARY: Denies any burning micturition, frequency, or urgency. MUSCULOSKELETAL/RHEUMATOLOGICAL: Denies any joint pain, swelling, or any muscle pain. ENDOCRINE: Denies any polyuria or polydipsia. Past Medical History Past Medical History: Blood Disorder, Heart Failure, COPD, Deep Vein Thrombosis (DVT), Hyperlipidemia, Hypertension, Myocardial Infarction (PA), Musculoskeletal Disorder, Pneumonia, Pulmonary Embolus (PE), Thyroid Disorder Additional Past Medical History / Comment(s): PE 2012; Sarcoidosis diagnosed in 2015 following a bronchoscopy and lung biopsy done at [facility] and she was started on predniosone and she took the therapy for almost 1 year, polycythemia, overweight, bilateral PE (2011, 2015), bilateral DVTs, fibromyalgia, bipolar disorder, degenerative disk disorder, coronary artery disease along with previous history of a PA and ventilator dependent respiratory failure with MRSA pneumonia for which the patient was hospitalized [facility] in 2012. Viral meningitis in October 2014. Pulmonary fibrosis, home 02 3l n/c Last Myocardial Infarction Date:: February 15, 2013 History of Any Multi-Drug Resistant Organisms: MRSA Date of last positivie culture/infection: 11/09/17 MDRO Source:: PLEURAL FLUID Past Surgical History: Section, Cholecystectomy, Heart Catheterization, Hernia Repair, Orthopedic Surgery Additional Past Surgical History / Comment(s): Lt ankle surgery, several bronchosopy-most recently 11/09/17 Past Anesthesia/Blood Transfusion Reactions: Motion Sickness, Postoperative Nausea & Vomiting (PONV) Additional Past Anesthesia/Blood Transfusion Reaction / Comment(s): previously charted -pt stated that last April she coded due to anesthetic Past Psychological History: Anxiety, Bipolar, Depression, Panic Disorder Additional Psychological History / Comment(s): and lives in the family home with her . No recent travel. No experience Smoking Status: Former smoker Past Alcohol Use History: None Reported Additional Past Alcohol Use History / Comment(s): patient lives with her significant other. last admit 11-03-17 pt was smoking 1ppd- pt's faincee stated she continues to smoked but he's not suere how much and it depends on how stressed she gets". denies alcohol use or recreational drug use. Patient is currently not working. No service. No recent travel. No animal exp osures. She did leave the hospital AMA in March 2017 and October 2017. Difficulties with ongoing medical noncompliance. Patient quit smoking 3 weeks ago. There is a dog in the home. Past Drug Use History: None Reported - Past Family History Father Family Medical History: Blood Disorder, Congestive Heart Failure (CHF), CVA/TIA, Deep Vein Thrombosis (DVT), Myocardial Infarction (PA) Additional Family Medical History / Comment(s): polycythemia Mother Family Medical History: Congestive Heart Failure (CHF), Diabetes Mellitus, Deep Vein Thrombosis (DVT), Myocardial Infarction (PA), Musculoskeletal Disorder Additional Family Medical History / Comment(s): DDD Sister(s) Family Medical History: No Reported History Brother(s) Family Medical History: No Reported History Son(s) Family Medical History: No Reported History Daughter(s) Family Medical History: No Reported History Medications and Allergies Home Medications Medication Instructions Recorded Confirmed Type FLUoxetine HCL [PROzac] 20 mg PO DAILY #30 capsule 08/20/15 07/03/18 Rx Metoprolol Tartrate [Lopressor] 50 mg PO BID #60 tab 08/20/15 07/03/18 Rx lamoTRIgine [LaMICtal] 200 mg PO DAILY 03/22/16 07/03/18 History Bumetanide 4 mg PO QAM 10/18/16 07/03/18 History Butalb/APAP/Caff 50-325-40Mg 1 tab PO Q4H PRN 10/18/16 07/03/18 History [Fioricet 50-325-40] Mirtazapine [Remeron] 45 mg PO HS 04/10/17 07/03/18 History ALPRAZolam [Xanax] 0.5 mg PO TID PRN 06/06/17 07/03/18 History Bumetanide [BUMEX] 2 mg PO DAILY@1200 09/16/17 07/03/18 History Pregabalin [Lyrica] 150 mg PO BID 09/16/17 07/03/18 History Baclofen [Lioresal] 20 mg PO Q8H PRN 10/09/17 07/03/18 History Morphine Sulfate ER [Ms Contin] 30 mg PO Q6H PRN 11/03/17 07/03/18 History Nystatin 100,000 Unit/gm Powd 1 applic TOPICAL BID 11/04/17 07/03/18 History [Mycostatin Powder] Promethazine/Dextromethorphan 5 ml PO Q6H PRN 11/04/17 07/03/18 History [Promethazine-Dm Solution] Docusate [Colace] 100 mg PO BID PRN #60 cap 11/10/17 07/03/18 Rx Potassium Chloride ER [K-Dur 20] 20 meq PO DAILY #30 tab.er.prt 11/10/17 07/03/18 Rx Sennosides-Docusate Sodium 2 tab PO BID PRN 12/07/17 07/03/18 History [Senokot-S] Hydrocodone/Acetaminophen [[place] 1 tab PO Q6H PRN 3 Days #12 tab 12/09/17 07/03/18 Rx 10-325] Warfarin [Coumadin] 10 mg PO HS 01/20/18 07/03/18 History Ipratropium-Albuterol Nebulize 3 ml INHALATION RT-QID PRN 05/22/18 07/03/18 History [Duoneb 0.5 mg-3 mg/3 ml Soln] Meclizine HCl 25 mg PO TID PRN 05/22/18 07/03/18 History Ondansetron [Zofran ODT] 4 mg PO BID 06/24/18 07/03/18 History predniSONE 0 mg PO DIRECTED #30 tab 07/02/18 07/03/18 Rx Allergies Allergy/AdvReac Type Severity Reaction Status Date / Time ketorolac tromethamine Allergy Severe Anaphylaxis Verified 07/03/18 14:17 [From Toradol] adhesive Allergy Rash/Hives Verified 07/03/18 14:17 Iodinated Contrast- Oral and Allergy Unknown Verified 07/03/18 14:17 IV Dye rivaroxaban [From Xarelto] Allergy Rash/Hives Verified 07/03/18 14:17 sumatriptan [From Imitrex] Allergy Anaphylaxis Verified 07/03/18 14:17 sumatriptan succinate Allergy Anaphylaxis Verified 07/03/18 14:17 [From Imitrex] tramadol Allergy Anaphylaxis Verified 07/03/18 14:17 iodine AdvReac Intermediate Itching Verified 07/03/18 14:17 vancomycin AdvReac Itching Verified 07/03/18 14:17 Rich wipes Allergy Severe Rash/Hives Uncoded 06/24/18 17:34 Physical Exam Vitals: Intake and Output 07/03/18 07/03/18 07/03/18 06:59 14:59 22:59 Intake Total 240 Balance 240 Intake: Oral 240 Other: Voiding Method Toilet Weight 112.5 kg GENERAL: The patient is alert and oriented x3, not in any acute distress. Well developed, well nourished. HEENT: Pupils are round and equally reacting to light. EOMI. No scleral icterus. No conjunctival pallor. Normocephalic, atraumatic. No pharyngeal erythema. No thyromegaly. CARDIOVASCULAR: S1 and S2 present. No murmurs, rubs, or gallops. -PULMONARY: Chest is clear to auscultation, decreased breath sounds bilaterally ABDOMEN: Soft, nontender, nondistended, normoactive bowel sounds. No palpable organomegaly. MUSCULOSKELETAL: No joint swelling or deformity. EXTREMITIES: No cyanosis, clubbing, or pedal edema. NEUROLOGICAL: Gross neurological examination did not reveal any focal deficits. SKIN: No rashes. Results CBC & Chem 7: 07/03/18 12:29 07/03/18 12:29 Labs: Abnormal Lab Results - Last 24 Hours (Table) 07/03/18 07/03/18 07/03/18 Range/Units 12:29 12:29 12:35 WBC 24.7 H (3.8-10.6) k/uL RBC 5.44 H (3.80-5.40) m/uL Hgb 16.6 H (11.4-16.0) gm/dL Hct 49.9 H (34.0-46.0) % Neutrophils # 16.1 H (1.3-7.7) k/uL Lymphocytes # 6.2 H (1.0-4.8) k/uL Monocytes # 1.7 H (0-1.0) k/uL PT 13.1 H (9.0-12.0) sec INR 1.3 H (<1.2) BUN 30 H (7-17) mg/dL Glucose 102 H (74-99) mg/dL Thrombosis Risk Factor Assmnt - Choose All That Apply Any of the Below Risk Factors Present?: Yes Each Factor Represents 1 point: Abnormal pulmonary function (COPD) Thrombosis Risk Factor Assessment Total Risk Factor Score: 1 Thrombosis Risk Factor Assessment Level: Low Risk Assessment and Plan Assessment: Systemic inflammatory response with tachypnea and leukocytosis Sepsis secondary to Pseudomonas pneumonia versus acute tracheobronchitis Worsening leukocytosis COPD, in mild to moderate acute exacerbation Persistent right sided pleuritic chest pain sarcoidosis with history of pulmonary fibrosis History of congestive heart failure 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 Plan: This is a pleasant 48 years old female who presents with pseudomonas respiratory infection, acute tracheal bronchitis versus pneumonia with worsening leukocytosis. Patient was discharged last time on Augmentin, however p seudomonas is resistant to Cipro. Patient is recommended to have intravenous antibiotic. Patient was admitted to the hospital with an infectious disease consult. Gentle hydration Labs and medication were reviewed.. Continue same treatment. Continue with symptomatic treatment. Resume home medication. Monitor lytes and vitals. DVT and GI prophylaxis. Further recommendations of the clinical course of the patient DVT prophylaxis: Subcutaneous heparin GI Prophylaxis: Pepcid Prognosis is guarded
[2018-07-03 21:31] LABS: Glucose,Whole Blood 182 mg/dL (75-99)
[2018-07-03] MEDS: FAMOTIDINE 20 MG TAB PO SCH (22:59)
[2018-07-03] MEDS: PREGABALIN 75 MG CAP PO SCH (22:59)
[2018-07-03] MEDS: METOPROLOL TARTRATE 50 MG TAB PO SCH (23:00)
[2018-07-03] MEDS: HEPARIN SODIUM,PORCINE 5,000 UNIT/ML 1 ML VIAL SQ SCH (23:06)
--- NOTE | 2018-07-03 23:44 | CONS ---
CONSULTATION DATE OF SERVICE: 07/03/2018 REASON FOR CONSULTATION: Pseudomonas aeruginosa pneumonia. HISTORY OF PRESENT ILLNESS: The patient is a 48-year-old female with a past medical history significant for COPD, congestive heart failure, hyperlipidemia, history of multiple pneumonias, who was recently admitted to this facility on June 20, 2018, with the chief complaint of increasing shortness of breath. She did have some cough and some minimal sputum production. No hemoptysis. No nausea, vomiting, abdominal pain or any diarrhea. The patient was evaluated by Pulmonary and the patient is status post bronchoscopy completed by Dr. Clark on 07/02/2018. The patient did have a bronch culture obtained which was gram-negative. The patient did have a sputum culture obtained on 06/30/2018 which grew Pseudomonas aeruginosa, which was already finalized on 07/02/2018. The patient was discharged home yesterday on oral Augmentin. After the sputum culture was finalized, the patient was advised to come back to the hospital for administration of IV antibiotic therapy, as no oral option was available. The patient did mention that she was having increasing shortness of breath, more cough and sputum production. No hemoptysis. No nausea or vomiting. No abdominal pain or any diarrhea. Infectious Disease was consulted for further recommendations regarding antibiotic therapy. REVIEW OF SYSTEMS: Positive points have been mentioned in the HPI. Rest of the systems are negative. PAST MEDICAL HISTORY: 1. Heart failure. 2. COPD. 3. DVT. 4. Hyperlipidemia. 5. Hypertension. 6. AR. 7. Pulmonary embolism. 8. . 9. Sarcoidosis. . PAST SURGICAL HISTORY: 1. . 2. Cholecystectomy. 3. Heart catheterization. 4. Hernia repair. 5. Left ankle surgery. 6. Several bronchoscopies. SOCIAL HISTORY: Remote history of smoking. No drinking or any drug use. FAMILY HISTORY: Father with history of congestive heart failure, CVA, TIA, DVT. Mother with history of congestive heart failure DVT. ALLERGIES: 1. IODINATED CONTRAST DYE. 2. SUMATRIPTAN. CURRENT MEDICATIONS: 1. Fioricet. 2. Kevil. 3. DuoNeb. 4. Xanax. 5. Baclofen. 6. Bumex. 7. Mycelex Alexandra. 8. Prozac. 9. Robitussin. 10.Heparin. 11.Lamictal. 12.Antivert. 13.Lopressor. 14.Prednisone. 15.Lyrica. 16.Coumadin. PHYSICAL EXAMINATION: Blood pressure is 117/79 with a pulse of 63, temperature 98.1. She is 96% on 3 L nasal cannula. General description is middle-aged female up in the bed in no distress. No tachypnea or accessory muscle of respiration use. HEENT examination shows no pallor or scleral icterus. Oral mucosa membrane is moist. No oropharyngeal erythema or thrush. NECK: Trachea is central. No thyromegaly. LUNGS: Unlabored breathing. Coarse breath sounds bilaterally. Occasional wheeze. HEART: S1, S2. Regular rate and rhythm. ABDOMEN: Soft. No tenderness. No guarding or rigidity. EXTREMITIES: No edema of the feet. SKIN EXAMINATION: No rash or mass palpable. Neurologically the patient is awake, alert, oriented x3. Mood and affect normal. LABS: Hemoglobin is 16.6, white count 24.7, BUN of 30, creatinine 0.99. Electrolytes have been normal. Liver enzymes are normal. INR is 1.3. Sputum with MRSA, Pseudomonas aeruginosa resistant to quinolones. PLAN: 1. Blood culture x1 STAT to make sure no evidence of any bacteremia. 2. Will start the patient on cefepime 2 grams q.12 hours. 3. Patient to get a midline. Will repeat a CT of the chest to see the extent of pneumonia and for the midline to get outpatient antibiotic therapy. The patient's coverage for IV antibiotic will be checked. 4. We will follow up on the clinical condition as well as CT scan to further adjust medication if needed. Thank you for this consultation. Will follow this patient along with you. MMODL / IJN: [id number] /
[2018-07-04] MEDS: CLOTRIMAZOLE TROCHE 10 MG TROCHE MUCOUS MEM SCH ×2 (00:38→05:57)
[2018-07-04] MEDS: MORPHINE SULFATE 4 MG/ML SYRINGE IVP PRN ×4 (00:45→12:56)
[2018-07-04] MEDS: HYDROcodone/APAP 10-325MG 1 EACH TAB PO PRN (03:33)
[2018-07-04] MEDS: IPRATROPIUM-ALBUTEROL 3 ML NEB INHALATION PRN ×2 (07:16→11:10)
[2018-07-04 08:59] VITALS: BP 117/87; RESP 16; TEMP 98.3
[2018-07-04] MEDS ORDERED: FLUoxetine HCL 20 MG CAP PO SCH (09:00)
[2018-07-04] MEDS ORDERED: BUMETANIDE 1 MG TAB PO SCH ×2 (09:00→12:00)
[2018-07-04] MEDS ORDERED: POTASSIUM CHLORIDE ER 20 MEQ TAB.ER PO SCH (09:00)
[2018-07-04] MEDS: CEFEPIME 2 GM in SODIUM CHLORIDE 0.9% 100 ML IVPB SCH (09:00)
[2018-07-04] MEDS: HEPARIN SODIUM,PORCINE 5,000 UNIT/ML 1 ML VIAL SQ SCH (09:00)
[2018-07-04] MEDS ORDERED: lamoTRIgine 100 MG TAB PO SCH (09:00)
[2018-07-04] MEDS: predniSONE 10 MG TAB PO SCH (09:01)
[2018-07-04] MEDS: PREGABALIN 75 MG CAP PO SCH (09:01)
[2018-07-04] MEDS: FAMOTIDINE 20 MG TAB PO SCH (09:02)
[2018-07-04] MEDS: METOPROLOL TARTRATE 50 MG TAB PO SCH (09:02)
[2018-07-04 09:59] LABS: Basophils # (A) 0.1 k/uL (0-0.2); Basophils % (A) 0 %; Eosinophils # (A) 0.1 k/uL (0-0.7); Eosinophils % (A) 1 %; HGB 14.6 gm/dL (11.4-16.0); Lymphocytes # (A) 3.2 k/uL (1.0-4.8); Lymphocytes % (A) 16 %; MCH 30.4 pg (25.0-35.0); MCHC 33.2 g/dL (31.0-37.0); MCV 91.3 fL (80.0-100.0); Mean Platelet Volume 7.6; Monocytes % (A) 5 %; Neutrophils # (A) 15.2 k/uL (1.3-7.7); Neutrophils % (A) 77 %; Platelet Count 256 k/uL (150-450); RBC 4.81 m/uL (3.80-5.40); RDW 14.8 % (11.5-15.5); WBC 19.7 k/uL (3.8-10.6)
[2018-07-04 10:03] LABS: INR 1.1 (<1.2); Prothrombin Time 11.7 sec (9.0-12.0)
[2018-07-04 10:04] LABS: Anion Gap 7 mmol/L; Blood Urea Nitrogen 26 mg/dL (7-17); Calcium 9.1 mg/dL (8.4-10.2); Carbon Dioxide 30 mmol/L (22-30); Chloride 101 mmol/L (98-107); Glucose 119 mg/dL (74-99); Potassium 4.1 mmol/L (3.5-5.1); Sodium 138 mmol/L (137-145)
[2018-07-04] MEDS: ALPRAZolam 0.5 MG TAB PO PRN (11:31)
[2018-07-04 11:38] VITALS: PULSE 68
--- NOTE | 2018-07-04 17:55 | P.DS ---
Providers Date of admission: 07/03/18 11:45 Attending physician: Harley Bush MD Consults: 07/03/18 12:16 Consult Physician Urgent Consulting Provider: Margie Ulloa Consult Reason/Comments: pseudomonas in sputum culture Do you want consulting provider notified?: Yes Placement Type Exists?: Yes Primary care physician: Harley Bush MD Hospital Course: Please note this is not a true discharge summary as patient was not discharged but she left AMA Diagnoses Systemic inflammatory response with tachypnea and leukocytosis Sepsis secondary to Pseudomonas pneumonia versus acute tracheobronchitis Worsening leukocytosis COPD, in mild to moderate acute exacerbation Persistent right sided pleuritic chest pain sarcoidosis with history of pulmonary fibrosis History of congestive heart failure 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 Hospital course This is a pleasant 48 years old female who presents with respiratory signs and symptoms, and Pseudomonas pneumonia versus acute tracheobronchitis. Patient has been evaluated by infectious diseases specialist and recommended cefepime for prolonged IV course. Computed tomography scan of the chest was done showing minimal subsegmental atelectasis in the posterior lung bases. And there is clearing of the extensive reticular interstitial pulmonary bilateral infiltrates compared to old exam. However patient had recent bronchoscopy. There is possible patient has infection there especially the culture from the sputum and bronchoscopy wash came back both positive for Pseudomonas. Patient has been set for PICC line which was placed for her today however patient refused to wait for me as the attending hospitalist and she left without signing AMA papers. I was in the floor reviewing the patient's chart, and underwent went to the room the patient room was empty. And staff told me she has just left without signing AMA peeper and she was talking the whole day of leaving AMA. I managed to call the patient at [phone], she picked up and I talked to gloria Elaine, she told MsNarayan been discharged, I confirmed to her she is not discharge because I haven't seen her and there is no discharge orders in the chart and I recommended that she comes back to evaluate her before she can go home as we have attribute everything including medication and labs and the haven't examined her or did subjective history from today. She told me that she will be back in half an hour because they going to deliver her antibiotic to her house and I told her I will be waiting for and she agrees to come back. However patient did not show up and I called her numbers more than once again and I left a message to call me back. Also I called her number at [phone] and nobody picked up either. I waited for more than 2 hours and nobody show up, dissection given to the staff. Patient should show up to contact me. As per staff patient was talking about leaving AMA the whole day and there was AMA paper in her room, however patient did not sign the [employer] AMA a paper and that she just left. I have already told the patient that this dangerous to leave without physician approval. Earlier through the day I talked to her PCP Mrs. James whiteside, who has an appointment with her tomorrow for 519 at 8:30 AM and ended to her about the case that she will need prolonged antibiotics and she needs monitoring CBC and BMP every week for her Pseudomonas respiratory infection and she currently took note of that. Also we discussed the patient should be on anticoagulation and that her INR is subtherapeutic and should be on a bridging. However thus before I know the patient left AMA. When I called back Mr. James Whiteside to let her that her office was already closed. Based upon my previous encounter on this admission and previous admission in the last few days throughout the whole time patient has capacity to make medical decisions for herself, which was the same today as per staff. And as per my conversation with her through the phone Final outcome: Patient left AMA without signing papers, or eloped. Plan - Discharge Summary Discharge Rx Participant: No New Discharge Prescriptions: New Cefepime HCl [Maxipime] 2 gm IV Q12H #28 vial No Action FLUoxetine HCL [PROzac] 20 mg PO DAILY #30 capsule Metoprolol Tartrate [Lopressor] 50 mg PO BID #60 tab lamoTRIgine [LaMICtal] 200 mg PO DAILY Bumetanide 4 mg PO QAM Butalb/APAP/Caff 50-325-40Mg [Fioricet 50-325-40] 1 tab PO Q4H PRN PRN Reason: Migraine Headache Mirtazapine [Remeron] 45 mg PO HS ALPRAZolam [Xanax] 0.5 mg PO TID PRN PRN Reason: Anxiety Pregabalin [Lyrica] 150 mg PO BID Bumetanide [BUMEX] 2 mg PO DAILY@1200 Baclofen [Lioresal] 20 mg PO Q8H PRN PRN Reason: Muscle Pain Morphine Sulfate ER [Ms Contin] 30 mg PO Q6H PRN PRN Reason: Pain Nystatin 100,000 Unit/gm Powd [Mycostatin Powder] 1 applic TOPICAL BID Promethazine/Dextromethorphan [Promethazine-Dm Solution] 5 ml PO Q6H PRN PRN Reason: Cough Docusate [Colace] 100 mg PO BID PRN #60 cap PRN Reason: Constipation Potassium Chloride ER [K-Dur 20] 20 meq PO DAILY #30 tab.er.prt Sennosides-Docusate Sodium [Senokot-S] 2 tab PO BID PRN PRN Reason: Constipation Hydrocodone/Acetaminophen [[place] 10-325] 1 tab PO Q6H PRN 3 Days #12 tab PRN Reason: Pain Warfarin [Coumadin] 10 mg PO HS Meclizine HCl 25 mg PO TID PRN PRN Reason: Vertigo Ipratropium-Albuterol Nebulize [Duoneb 0.5 mg-3 mg/3 ml Soln] 3 ml INHALATION RT-QID PRN PRN Reason: Shortness Of Breath Ondansetron [Zofran ODT] 4 mg PO BID predniSONE 0 mg PO DIRECTED #30 tab Discharge Medication List FLUoxetine HCL [PROzac] 20 mg PO DAILY #30 capsule 08/20/15 [Rx] Metoprolol Tartrate [Lopressor] 50 mg PO BID #60 tab 08/20/15 [Rx] lamoTRIgine [LaMICtal] 200 mg PO DAILY 03/22/16 [History] Bumetanide 4 mg PO QAM 10/18/16 [History] Butalb/APAP/Caff 50-325-40Mg [Fioricet 50-325-40] 1 tab PO Q4H PRN 10/18/16 [History] Mirtazapine [Remeron] 45 mg PO HS 04/10/17 [History] ALPRAZolam [Xanax] 0.5 mg PO TID PRN 06/06/17 [History] Bumetanide [BUMEX] 2 mg PO DAILY@1200 09/16/17 [History] Pregabalin [Lyrica] 150 mg PO BID 09/16/17 [History] Baclofen [Lioresal] 20 mg PO Q8H PRN 10/09/17 [History] Morphine Sulfate ER [Ms Contin] 30 mg PO Q6H PRN 11/03/17 [History] Nystatin 100,000 Unit/gm Powd [Mycostatin Powder] 1 applic TOPICAL BID 11/04/17 [History] Promethazine/Dextromethorphan [Promethazine-Dm Solution] 5 ml PO Q6H PRN 11/04/17 [History] Docusate [Colace] 100 mg PO BID PRN #60 cap 11/10/17 [Rx] Potassium Chloride ER [K-Dur 20] 20 meq PO DAILY #30 tab.er.prt 11/10/17 [Rx] Sennosides-Docusate Sodium [Senokot-S] 2 tab PO BID PRN 12/07/17 [History] Hydrocodone/Acetaminophen [[place] 10-325] 1 tab PO Q6H PRN 3 Days #12 tab 12/09/17 [Rx] Warfarin [Coumadin] 10 mg PO HS 01/20/18 [History] Ipratropium-Albuterol Nebulize [Duoneb 0.5 mg-3 mg/3 ml Soln] 3 ml INHALATION RT-QID PRN 05/22/18 [History] Meclizine HCl 25 mg PO TID PRN 05/22/18 [History] Ondansetron [Zofran ODT] 4 mg PO BID 06/24/18 [History] predniSONE 0 mg PO DIRECTED #30 tab 07/02/18 [Rx] Cefepime HCl [Maxipime] 2 gm IV Q12H #28 vial 07/04/18 [Rx] Follow up Appointment(s)/Referral(s): [facility], [REFERRING] - As Needed Margie Ulloa MD [STAFF PHYSICIAN] - 07/15/18 10:45 am [facility] Visiting Nurse, [NON-STAFF] - As Needed Patient Instructions/Handouts: Cefepime (By injection), Sepsis (GEN), Pneumonia (DC) Discharge Disposition: HOME WITH HOME HEALTH SERVICES
[2018-07-04] MEDS ORDERED: WARFARIN 10 MG TAB PO ONE (18:00)
[2018-07-04] MEDS ORDERED: WARFARIN 2 MG TAB PO ONE (18:00)
--- NOTE | 2018-07-04 21:38 | P.PN ---
Subjective Progress Note Date: 07/04/18 48-year-old woman who has underlying significant pulmonary disease with sarcoidosis was recently hospitalized and underwent bronchoscopy. Discharged home antibiotic therapy but had rapid recurrence of her symptoms. At the time of admission she had significant purulent secretions here cultures from the re cent stay became available and she was placed on cefepime. Care is being assumed for Dr. Ulloa who is out of town. Nursing relates to improvement overnight. Working on her discharge to rehab today. Objective - Vital Signs Vital signs: Vital Signs Temp 98.3 F 07/04/18 08:59 Pulse 68 07/04/18 11:35 Resp 16 07/04/18 08:59 BP 117/87 07/04/18 08:59 Pulse Ox 96 07/04/18 08:59 Intake & Output 07/04/18 07/04/18 07/05/18 06:59 18:59 06:59 Intake Total 350 Balance 350 Weight 114.8 kg Intake: Oral 350 Other: Voiding Method Toilet - Exam 48-year-old female who has obesity. Patient is sitting up in bed and appears to be mostly comfortable. Mild respiratory distress HEENT: Anicteric conjunctiva are pink and moist nasal mucosa grossly intact without significant lesions, there is no thrush. Neck: The neck is supple without significant lymphadenopathy or thyromegaly. Lungs: Symmetrical air entry is noted, few expiratory wheezes are scattered throughout with no true bronchial sounds no dullness or egophony Heart: Regular rate and rhythm with an audible S1-S2, no S3 no S4. There is no significant murmur click or rub, PMI was nondisplaced. Tenderness to the right lower lateral/anterior ribs. Abdomen: Obese, Positive bowel sounds soft and nontender without palpable masses or organomegaly. There was no guarding or rebound. Extremities: The upper extremities reveal evidence of the recently placed IV access. Lower extremities with minimal edema Neuro: Awake alert oriented to person place and time. - Labs CBC & Chem 7: 07/04/18 09:05 07/04/18 09:05 Labs: Abnormal Lab Results - Last 24 Hours (Table) 07/04/18 07/04/18 Range/Units 09:05 09:05 WBC 19.7 H (3.8-10.6) k/uL Neutrophils # 15.2 H (1.3-7.7) k/uL BUN 26 H (7-17) mg/dL Glucose 119 H (74-99) mg/dL Microbiology - Last 24 Hours (Table) 07/03/18 17:42 Blood Culture - Preliminary Blood No Growth after 24 hours 07/03/18 16:10 Blood Culture - Preliminary Blood No Growth after 24 hours Laboratory Results WBC 19.7 k/uL (3.8-10.6) H 07/04/18 09:05 RBC 4.81 m/uL (3.80-5.40) 07/04/18 09:05 Hgb 14.6 gm/dL (11.4-16.0) 07/04/18 09:05 Hct 44.0 % (34.0-46.0) 07/04/18 09:05 MCV 91.3 fL (80.0-100.0) 07/04/18 09:05 MCH 30.4 pg (25.0-35.0) 07/04/18 09:05 MCHC 33.2 g/dL (31.0-37.0) 07/04/18 09:05 RDW 14.8 % (11.5-15.5) 07/04/18 09:05 Plt Count 256 k/uL (150-450) 07/04/18 09:05 Neutrophils % 77 % 07/04/18 09:05 Lymphocytes % 16 % 07/04/18 09:05 Monocytes % 5 % 07/04/18 09:05 Eosinophils % 1 % 07/04/18 09:05 Basophils % 0 % 07/04/18 09:05 Neutrophils # 15.2 k/uL (1.3-7.7) H 07/04/18 09:05 Lymphocytes # 3.2 k/uL (1.0-4.8) 07/04/18 09:05 Monocytes # 1.0 k/uL (0-1.0) 07/04/18 09:05 Eosinophils # 0.1 k/uL (0-0.7) 07/04/18 09:05 Basophils # 0.1 k/uL (0-0.2) 07/04/18 09:05 PT 11.7 sec (9.0-12.0) 07/04/18 09:05 INR 1.1 (<1.2) 07/04/18 09:05 Sodium 138 mmol/L (137-145) 07/04/18 09:05 Potassium 4.1 mmol/L (3.5-5.1) 07/04/18 09:05 Chloride 101 mmol/L (98-107) 07/04/18 09:05 Carbon Dioxide 30 mmol/L (22-30) 07/04/18 09:05 Anion Gap 7 mmol/L 07/04/18 09:05 BUN 26 mg/dL (7-17) H 07/04/18 09:05 Creatinine 0.89 mg/dL (0.52-1.04) 07/04/18 09:05 Est GFR (CKD-EPI)AfAm >90 (>60 ml/min/1.73 sqM) 07/04/18 09:05 Est GFR (CKD-EPI)NonAf 78 (>60 ml/min/1.73 sqM) 07/04/18 09:05 Glucose 119 mg/dL (74-99) H 07/04/18 09:05 POC Glucose (mg/dL) 182 mg/dL (75-99) H 07/03/18 21:29 POC Glu Marriage And Family Therapist ID Ilya Turner 07/03/18 21:29 Calcium 9.1 mg/dL (8.4-10.2) 07/04/18 09:05 Total Bilirubin 0.7 mg/dL (0.2-1.3) 07/03/18 12:29 AST 26 U/L (14-36) 07/03/18 12:29 ALT 45 U/L (9-52) 07/03/18 12:29 Alkaline Phosphatase 65 U/L (38-126) 07/03/18 12:29 Total Protein 6.5 g/dL (6.3-8.2) 07/03/18 12:29 Albumin 3.6 g/dL (3.5-5.0) 07/03/18 12:29 Microbiology 07/03/18 17:42 Blood Blood Culture - Preliminary No Growth after 24 hours 07/03/18 16:10 Blood Blood Culture - Preliminary No Growth after 24 hours Sputum from bronchoscopy 06/26/2018 reveals evidence pseudomonas aeruginosa resistant to quinolones susceptible to cefepime. Assessment and Plan (1) Acute exacerbation of chronic obstructive pulmonary disease (COPD) Status: Acute Code(s): J44.1 - CHRONIC OBSTRUCTIVE PULMONARY DISEASE W (ACUTE) EXACERBATION SNOMED Code(s): 461780005 (2) Pneumonia due to Pseudomonas aeruginosa Narrative/Plan: 48 showing with advanced lung disease and COPD was recently hospitalized at which point her bronchoscopy was performed which allowing some improvement of her symptoms however she quickly had some increased secretions and was brought back to hospital. There is no evidence of pseudomonas aeruginosa being found in her respiratory secretions from the BAL. Consequently antibiotic therapy is ch anges cefepime. There are no oral options and counseling IV accesses been placed in cefepime has been arranged for the outpatient setting I believe at the [facility]. 2 weeks are planned and she can follow-up in the office at that time. Status: Acute Code(s): J15.1 - PNEUMONIA DUE TO PSEUDOMONAS SNOMED Code(s): 35543820
== END 2018-07-04 15:20 | disposition left against medical advice (07) | DRG 871 ==
LOC: 4SSUR 11:45
PROVIDERS: ADMIT Internal Medicine; ATTEND Internal Medicine
PROC: 05HY33Z Insertion of Infusion Device into Upper Vein, Percutaneous Approach (ICD-10-PCS; principal; 2018-07-03 22:15)
DX: A41.52 Sepsis due to Pseudomonas (principal); J15.1 Pneumonia due to Pseudomonas; J44.0 Chronic obstructive pulmonary disease with (acute) lower respiratory infection; J44.1 Chronic obstructive pulmonary disease with (acute) exacerbation; Z68.41 Body mass index [BMI] 40.0-44.9, adult; I11.0 Hypertensive heart disease with heart failure; E66.9 Obesity, unspecified; J84.10 Pulmonary fibrosis, unspecified; I50.9 Heart failure, unspecified; D75.1 Secondary polycythemia; D86.0 Sarcoidosis of lung; J20.9 Acute bronchitis, unspecified; E78.5 Hyperlipidemia, unspecified; I25.10 Atherosclerotic heart disease of native coronary artery without angina pectoris; E03.9 Hypothyroidism, unspecified; M79.7 Fibromyalgia; F31.9 Bipolar disorder, unspecified; F41.0 Panic disorder [episodic paroxysmal anxiety]; I25.2 Old myocardial infarction; Z99.81 Dependence on supplemental oxygen; Z79.01 Long term (current) use of anticoagulants; Z79.899 Other long term (current) drug therapy; Z87.891 Personal history of nicotine dependence; Z86.718 Personal history of other venous thrombosis and embolism; Z86.711 Personal history of pulmonary embolism; Z86.61 Personal history of infections of the central nervous system; Z87.01 Personal history of pneumonia (recurrent); Z86.14 Personal history of Methicillin resistant Staphylococcus aureus infection; Z90.49 Acquired absence of other specified parts of digestive tract; Z99.89 Dependence on other enabling machines and devices; Z16.23 Resistance to quinolones and fluoroquinolones; Z91.19 Patient's noncompliance with other medical treatment and regimen; Z88.1 Allergy status to other antibiotic agents; Z91.041 Radiographic dye allergy status; Z88.5 Allergy status to narcotic agent; Z88.8 Allergy status to other drugs, medicaments and biological substances; Z91.048 Other nonmedicinal substance allergy status; Z82.49 Family history of ischemic heart disease and other diseases of the circulatory system; Z82.3 Family history of stroke; Z83.2 Family history of diseases of the blood and blood-forming organs and certain disorders involving the immune mechanism; Z83.3 Family history of diabetes mellitus; Z82.69 Family history of other diseases of the musculoskeletal system and connective tissue
CPT/HCPCS: 36410; 71046; 71250; 76937; 80048; 80053; 85025; 85610; 87040; 94640

== ENCOUNTER 2018-07-08 13:52 | Inpatient (IN) | payer BC, OTHER ==
[2018-07-08] MEDS ORDERED: SODIUM CHLORIDE 0.9% 1,000 ML IV STA (14:42)
[2018-07-08] MEDS ORDERED: ONDANSETRON 4 MG/2 ML VIAL IVP STA (14:49)
[2018-07-08] MEDS ORDERED: LEVOFLOXACIN 750MG-D5W PMX 750 MG in DEXTROSE/WATER 1 150ML.BAG IVPB STA (14:57)
[2018-07-08] MEDS ORDERED: MORPHINE SULFATE 4 MG/ML SYRINGE IV STA ×2 (15:02→18:25)
[2018-07-08] MEDS ORDERED: cefTRIAXone IN SWFI 1,000 MG/10 ML SYRINGE IVP STA (15:10)
--- NOTE | 2018-07-08 15:24 | ED ---
General Adult HPI - General Chief complaint: Fever Stated complaint: weakness/lung pain Time Seen by Provider: 07/08/18 14:22 Source: patient, RN notes reviewed, old records reviewed Mode of arrival: ambulatory Limitations: no limitations - History of Present Illness Initial comments: 48-year-old female patient passed no history of CABG, pulmonary fibrosis, pulmonary embolism, Pseudomonas pneumonia, MRSA pneumonia, fibromyalgia presents to ED with complaints of cough, nausea vomiting diarrhea, mild shortness of breath, fevers and chills. Patient additionally complains of some right lower quadrant abdominal pain, and some possible cellulitis and abdomen where she had Lovenox injections. patient was recently admitted from 06/24-07/03 for this problem when she discharged herself AMA. Patient has been on maxipime through a PICC line for Pseudomonas pneumonia sent AMA discharge. Patient states that she was advised by her primary care provider to present Hospital for admission due to possible sepsis. Patient denies any chest pain. Patient has taken maxipime today. Systemic: Pt denies fatigue, myalgia, rash. Pt denies weakness, night sweats, w eight loss. Neuro: Pt denies headache, visual disturbances, syncope or pre-syncope. HEENT: Pt denies ocular discharge or irritation, otalgia, rhinorrhea, pharyngitis or notable lymphadenopathy. Cardiopulmonary: Pt denies chest pain, heart palpitations, dyspnea on exertion. : Pt denies dysuria, burning w/ urination, frequency/urgency. Denies new onset urinary or bowel incontinence. MSK: Pt denies myalgia, loss of strength or function in extremities. Neuro: Pt denies new onset weakness, paresthesias. - Related Data Home Medications Medication Instructions Recorded Confirmed lamoTRIgine [LaMICtal] 200 mg PO DAILY 03/22/16 07/08/18 Bumetanide 4 mg PO QAM 10/18/16 07/08/18 Butalb/APAP/Caff 50-325-40Mg 1 tab PO Q4H PRN 10/18/16 07/08/18 [Fioricet 50-325-40] Mirtazapine [Remeron] 45 mg PO HS 04/10/17 07/08/18 ALPRAZolam [Xanax] 0.5 mg PO TID PRN 06/06/17 07/08/18 Bumetanide [BUMEX] 2 mg PO DAILY@1200 09/16/17 07/08/18 Pregabalin [Lyrica] 150 mg PO BID 09/16/17 07/08/18 Baclofen [Lioresal] 20 mg PO Q8H PRN 10/09/17 07/08/18 Morphine Sulfate ER [Ms Contin] 30 mg PO Q6H PRN 11/03/17 07/08/18 Nystatin 100,000 Unit/gm Powd 1 applic TOPICAL BID 11/04/17 07/08/18 [Mycostatin Powder] Promethazine/Dextromethorphan 5 ml PO Q6H PRN 11/04/17 07/08/18 [Promethazine-Dm Solution] Sennosides-Docusate Sodium 2 tab PO BID PRN 12/07/17 07/08/18 [Senokot-S] Warfarin [Coumadin] 10 mg PO HS 01/20/18 07/08/18 Ipratropium-Albuterol Nebulize 3 ml INHALATION RT-QID PRN 05/22/18 07/08/18 [Duoneb 0.5 mg-3 mg/3 ml Soln] Meclizine HCl 25 mg PO TID PRN 05/22/18 07/08/18 Ondansetron [Zofran ODT] 4 mg PO Q6H 06/24/18 07/08/18 Warfarin Sodium [Coumadin] 2 mg PO HS 07/08/18 07/08/18 Previous Rx's Medication Instructions Recorded FLUoxetine HCL [PROzac] 20 mg PO DAILY #30 capsule 08/20/15 Metoprolol Tartrate [Lopressor] 50 mg PO BID #60 tab 08/20/15 Docusate [Colace] 100 mg PO BID PRN #60 cap 11/10/17 Potassium Chloride ER [K-Dur 20] 20 meq PO DAILY #30 tab.er.prt 11/10/17 Hydrocodone/Acetaminophen [[place] 1 tab PO Q6H PRN 3 Days #12 tab 12/09/17 10-325] Cefepime HCl [Maxipime] 2 gm IV Q12H #28 vial 07/04/18 Allergies Allergy/AdvReac Type Severity Reaction Status Date / Time ketorolac tromethamine Allergy Severe Anaphylaxis Verified 04/08/19 15:36 [From Toradol] adhesive Allergy Rash/Hives Verified 07/08/18 15:36 Iodinated Contrast- Oral and Allergy Unknown Verified 07/08/18 15:36 IV Dye rivaroxaban [From Xarelto] Allergy Rash/Hives Verified 07/08/18 15:36 sumatriptan [From Imitrex] Allergy Anaphylaxis Verified 07/08/18 15:36 sumatriptan succinate Allergy Anaphylaxis Verified 07/08/18 15:36 [From Imitrex] tramadol Allergy Anaphylaxis Verified 07/08/18 15:36 iodine AdvReac Intermediate Itching Verified 07/08/18 15:36 vancomycin AdvReac Itching Verified 07/08/18 15:36 Rich wipes Allergy Severe Rash/Hives Uncoded 07/08/18 14:15 Review of Systems ROS Statement: Those systems with pertinent positive or pertinent negative responses have been documented in the HPI. ROS Other: All systems not noted in ROS Statement are negative. Past Medical History Past Medical History: Blood Disorder, Heart Failure, COPD, Deep Vein Thrombosis (DVT), Hyperlipidemia, Hypertension, Myocardial Infarction (TX), Musculoskeletal Disorder, Pneumonia, Pulmonary Embolus (PE), Thyroid Disorder Additional Past Medical History / Comment(s): PE 2012; Sarcoidosis diagnosed in 2015 following a bronchoscopy and lung biopsy done at [facility] and she was started on predniosone and she took the therapy for almost 1 year, polycythemia, overweight, bilateral PE (2011, 2015), bilateral DVTs, fibromyalgia, bipolar disorder, degenerative disk disorder, coronary artery disease along with previous history of a TX and ventilator dependent respiratory failure with MRSA pneumonia for which the patient was hospitalized [facility] in 2012. Viral meningitis in October 2014. Pulmonary fibrosis, home 02 3l n/c Last Myocardial Infarction Date:: February 15, 2013 History of Any Multi-Drug Resistant Organisms: MRSA Date of last positivie culture/infection: 11/09/17 MDRO Source:: PLEURAL FLUID Past Surgical History: Section, Cholecystectomy, Heart Catheterization, Hernia Repair, Orthopedic Surgery Additional Past Surgical History / Comment(s): Lt ankle surgery, several bronchosopy-most recently 11/09/17 Past Anesthesia/Blood Transfusion Reactions: Motion Sickness, Postoperative Nausea & Vomiting (PONV) Additional Past Anesthesia/Blood Transfusion Reaction / Comment(s): previously charted -pt stated that last April she coded due to anesthetic Past Psychological History: Anxiety, Bipolar, Depression, Panic Disorder Smoking Status: Former smoker Past Alcohol Use History: None Reported Past Drug Use History: None Reported - Past Family History Father Family Medical History: Blood Disorder, Congestive Heart Failure (CHF), CVA/TIA, Deep Vein Thrombosis (DVT), Myocardial Infarction (TX) Additional Family Medical History / Comment(s): polycythemia Mother Family Medical History: Congestive Heart Failure (CHF), Diabetes Mellitus, Deep Vein Thrombosis (DVT), Myocardial Infarction (TX), Musculoskeletal Disorder Additional Family Medical History / Comment(s): DDD Sister(s) Family Medical History: No Reported History Brother(s) Family Medical History: No Reported History Son(s) Family Medical History: No Reported History Daughter(s) Family Medical History: No Reported History General Exam - General Exam Comments Initial Comments: Constitutional: NAD, AOX3, Pt has pleasant affect. HEENT: NC/AT, trachea midline, neck supple, no lymphadenopathy. Posterior pharynx non erythematous, without exudates. External ears appear normal, without discharge. Mucous membranes moist. Eyes PERRLA, EOM intact. There is no scleral icterus. No pallor noted. Cardiopulmonary: RRR, no murmurs, rubs or gallops, no JVD noted. Lungs CTAB in anterior and posterior diana. No peripheral edema. Abdominal exam: Abdomen soft and non-distended. Abdomen mildly tender to palpation in right lower quadrant. No appreciable cellulitic changes. Bowel sounds active in LLQ. No hepatosplenomegaly. No ecchymosis Neuro: CN II-XII grossly intact. No nuchal rigidity. MSK: No posterior calf tenderness bilaterally, homans sign negative bilaterally. Posterior tibialis and radial pulse +2 bilaterally. Sensation intact in upper and lower extremities. Full active ROM in upper and lower extremities, 5/5 stregnth. Limitations: no limitations Course Vital Signs 07/08/18 07/08/18 07/08/18 14:11 15:47 15:50 Temperature 99.1 F Pulse Rate 80 Respiratory 16 Rate Blood Pressure 119/72 114/63 O2 Sat by Pulse 96 97 94 L Oximetry 07/08/18 07/08/18 16:00 16:10 Temperature Pulse Rate Respiratory Rate Blood Pressure 114/63 96/69 O2 Sat by Pulse 96 96 Oximetry Medical Decision Making - Medical Decision Making 48-year-old female patient passed no history of CABG, pulmonary fibrosis, pulmonary embolism, Pseudomonas pneumonia, MRSA pneumonia, fibromyalgia presents to ED with complaints of cough, nausea vomiting diarrhea, mild s hortness of breath, fevers and chills. Patient additionally complains of some right lower quadrant abdominal pain, and some possible cellulitis and abdomen where she had Lovenox injections. patient was recently admitted from 06/24-07/03 for this problem when she discharged herself AMA. Patient has been on maxipime through a PICC line for Pseudomonas pneumonia sent AMA discharge. Patient states that she was advised by her primary care provider to present Hospital for admission due to possible sepsis. Patient denies any chest pain. Patient has taken maxipime today. Patient vital signs stable, afebrile. Physical exam displayed mild tenderness to palpation in right lower quadrant. Lungs CTAB in anterior and posterior diana. Laboratory investigations revealed non- impressive CBC. Coagulations revealed INR of 3.5 patient within therapeutic range. CMP revealed hypokalemia of 2.6. Patient initiated on potassium replacement therapy. UA negative. Influenza negative. EKG not concerning for acute ischemia. CT angiography of chest displayed mild scarring subsegmental atelectasis at the lung bases improved from prior exam, no evidence of pulmonary embolism. CT and pelvis displayed mildly dilated proximal small bowel, partial small bowel instruction. Patient to be admitted for small bowel obstruction, hypokalemia. NG tube placed. Consulted infectious disease Dr. Lott for pr imary Pseudomonas pneumonia which patient still being treated, Gen. surgery. Patient admitted to Dr. Church. Case discussed with Dr. Bar. - Lab Data Result diagrams: 07/08/18 15:00 07/08/18 15:00 Lab Results 07/08/18 07/08/18 07/08/18 Range/Units 15:00 15:00 15:00 WBC 11.0 H (3.8-10.6) k/uL RBC 4.66 (3.80-5.40) m/uL Hgb 14.3 (11.4-16.0) gm/dL Hct 41.2 (34.0-46.0) % MCV 88.5 (80.0-100.0) fL MCH 30.8 (25.0-35.0) pg MCHC 34.8 (31.0-37.0) g/dL RDW 15.5 (11.5-15.5) % Plt Count 171 (150-450) k/uL Neutrophils % 58 % Lymphocytes % 31 % Monocytes % 5 % Eosinophils % 3 % Basophils % 0 % Neutrophils # 6.4 (1.3-7.7) k/uL Lymphocytes # 3.5 (1.0-4.8) k/uL Monocytes # 0.6 (0-1.0) k/uL Eosinophils # 0.3 (0-0.7) k/uL Basophils # 0.0 (0-0.2) k/uL PT (9.0-12.0) sec INR (<1.2) APTT (22.0-30.0) sec Sodium 138 (137-145) mmol/L Potassium 2.6 L* (3.5-5.1) mmol/L Chloride 101 (98-107) mmol/L Carbon Dioxide 29 (22-30) mmol/L Anion Gap 8 mmol/L BUN 18 H (7-17) mg/dL Creatinine 0.96 (0.52-1.04) mg/dL Est GFR (CKD-EPI)AfAm 82 (>60 ml/min/1.73 sqM) Est GFR (CKD-EPI)NonAf 71 (>60 ml/min/1.73 sqM) Glucose 109 H (74-99) mg/dL Plasma Lactic Acid Chuck (0.7-2.0) mmol/L Calcium 8.8 (8.4-10.2) mg/dL Magnesium (1.6-2.3) mg/dL Total Bilirubin 0.4 (0.2-1.3) mg/dL AST 27 (14-36) U/L ALT 37 (9-52) U/L Alkaline Phosphatase 65 (38-126) U/L Troponin I (0.000-0.034) ng/mL Total Protein 6.0 L (6.3-8.2) g/dL Albumin 3.3 L (3.5-5.0) g/dL Urine Color Urine Appearance (Clear) Urine pH (5.0-8.0) Ur Specific [place] (1.001-1.035) Urine Protein (Negative) Urine Glucose (UA) (Negative) Urine Ketones (Negative) Urine Blood (Negative) Urine Nitrite (Negative) Urine Bilirubin (Negative) Urine Urobilinogen (<2.0) mg/dL Ur Leukocyte Esterase (Negative) Influenza Type A RNA Not Detected (Not Detectd) Influenza Type B (PCR) Not Detected (Not Detectd) 07/08/18 07/08/18 07/08/18 Range/Units 15:00 15:00 15:00 WBC (3.8-10.6) k/uL RBC (3.80-5.40) m/uL Hgb (11.4-16.0) gm/dL Hct (34.0-46.0) % MCV (80.0-100.0) fL MCH (25.0-35.0) pg MCHC (31.0-37.0) g/dL RDW (11.5-15.5) % Plt Count (150-450) k/uL Neutrophils % % Lymphocytes % % Monocytes % % Eosinophils % % Basophils % % Neutrophils # (1.3-7.7) k/uL Lymphocytes # (1.0-4.8) k/uL Monocytes # (0-1.0) k/uL Eosinophils # (0-0.7) k/uL Basophils # (0-0.2) k/uL PT 33.4 H (9.0-12.0) sec INR 3.5 H (<1.2) APTT 30.0 (22.0-30.0) sec Sodium (137-145) mmol/L Potassium (3.5-5.1) mmol/L Chloride (98-107) mmol/L Carbon Dioxide (22-30) mmol/L Anion Gap mmol/L BUN (7-17) mg/dL Creatinine (0.52-1.04) mg/dL Est GFR (CKD-EPI)AfAm (>60 ml/min/1.73 sqM) Est GFR (CKD-EPI)NonAf (>60 ml/min/1.73 sqM) Glucose (74-99) mg/dL Plasma Lactic Acid Chuck 1.1 (0.7-2.0) mmol/L Calcium (8.4-10.2) mg/dL Magnesium (1.6-2.3) mg/dL Total Bilirubin (0.2-1.3) mg/dL AST (14-36) U/L ALT (9-52) U/L Alkaline Phosphatase (38-126) U/L Troponin I <0.012 (0.000-0.034) ng/mL Total Protein (6.3-8.2) g/dL Albumin (3.5-5.0) g/dL Urine Color Urine Appearance (Clear) Urine pH (5.0-8.0) Ur Specific [place] (1.001-1.035) Urine Protein (Negative) Urine Glucose (UA) (Negative) Urine Ketones (Negative) Urine Blood (Negative) Urine Nitrite (Negative) Urine Bilirubin (Negative) Urine Urobilinogen (<2.0) mg/dL Ur Leukocyte Esterase (Negative) Influenza Type A RNA (Not Detectd) Influenza Type B (PCR) (Not Detectd) 07/08/18 07/08/18 Range/Units 15:00 15:40 WBC (3.8-10.6) k/uL RBC (3.80-5.40) m/uL Hgb (11.4-16.0) gm/dL Hct (34.0-46.0) % MCV (80.0-100.0) fL MCH (25.0-35.0) pg MCHC (31.0-37.0) g/dL RDW (11.5-15.5) % Plt Count (150-450) k/uL Neutrophils % % Lymphocytes % % Monocytes % % Eosinophils % % Basophils % % Neutrophils # (1.3-7.7) k/uL Lymphocytes # (1.0-4.8) k/uL Monocytes # (0-1.0) k/uL Eosinophils # (0-0.7) k/uL Basophils # (0-0.2) k/uL PT (9.0-12.0) sec INR (<1.2) APTT (22.0-30.0) sec Sodium (137-145) mmol/L Potassium (3.5-5.1) mmol/L Chloride (98-107) mmol/L Carbon Dioxide (22-30) mmol/L Anion Gap mmol/L BUN (7-17) mg/dL Creatinine (0.52-1.04) mg/dL Est GFR (CKD-EPI)AfAm (>60 ml/min/1.73 sqM) Est GFR (CKD-EPI)NonAf (>60 ml/min/1.73 sqM) Glucose (74-99) mg/dL Plasma Lactic Acid Chuck (0.7-2.0) mmol/L Calcium (8.4-10.2) mg/dL Magnesium 1.9 (1.6-2.3) mg/dL Total Bilirubin (0.2-1.3) mg/dL AST (14-36) U/L ALT (9-52) U/L Alkaline Phosphatase (38-126) U/L Troponin I (0.000-0.034) ng/mL Total Protein (6.3-8.2) g/dL Albumin (3.5-5.0) g/dL Urine Color Colorless Urine Appearance Clear (Clear) Urine pH 6.5 (5.0-8.0) Ur Specific [place] 1.006 (1.001-1.035) Urine Protein Negative (Negative) Urine Glucose (UA) Negative (Negative) Urine Ketones Negative (Negative) Urine Blood Negative (Negative) Urine Nitrite Negative (Negative) Urine Bilirubin Negative (Negative) Urine Urobilinogen <2.0 (<2.0) mg/dL Ur Leukocyte Esterase Negative (Negative) Influenza Type A RNA (Not Detectd) Influenza Type B (PCR) (Not Detectd) - EKG Data -: EKG Interpreted by Me (and dr bar) EKG Comments: Ventricular rate 66, MS interval 144, QRS 70, QT/QTc 426/446. Normal sinus rhythm, normal EKG. No concern for acute ischemia. Disposition Clinical Impression: Small bowel obstruction, Hypokalemia Disposition: ADMITTED IP TO THIS HOSP Condition: Serious Is patient prescribed a controlled substance at d/c from ED?: No
[2018-07-08] MEDS ORDERED: FAMOTIDINE 20 MG/2 ML VIAL IV STA (15:25)
[2018-07-08] MEDS ORDERED: diphenhydrAMINE 50 MG/ML 1 ML VIAL IVP STA (15:25)
[2018-07-08] MEDS ORDERED: methylPREDNISolone SOD SUCCI 125 MG/2 ML VIAL IV STA (15:26)
[2018-07-08 15:28] LABS: Basophils % (A) 0 %; Eosinophils # (A) 0.3 k/uL (0-0.7); Eosinophils % (A) 3 %; HCT 41.2 % (34.0-46.0); HGB 14.3 gm/dL (11.4-16.0); Lymphocytes # (A) 3.5 k/uL (1.0-4.8); Lymphocytes % (A) 31 %; MCH 30.8 pg (25.0-35.0); MCHC 34.8 g/dL (31.0-37.0); MCV 88.5 fL (80.0-100.0); Mean Platelet Volume 7.5; Monocytes # (A) 0.6 k/uL (0-1.0); Monocytes % (A) 5 %; Neutrophils # (A) 6.4 k/uL (1.3-7.7); Neutrophils % (A) 58 %; Platelet Count 171 k/uL (150-450); RBC 4.66 m/uL (3.80-5.40); RDW 15.5 % (11.5-15.5)
[2018-07-08 15:33] LABS: INR 3.5 (<1.2); Prothrombin Time 33.4 sec (9.0-12.0)
[2018-07-08 15:36] LABS: Albumin 3.3 g/dL (3.5-5.0); Calcium 8.8 mg/dL (8.4-10.2); Total Bilirubin 0.4 mg/dL (0.2-1.3)
[2018-07-08 15:43] LABS: Potassium 2.6 mmol/L (3.5-5.1)
[2018-07-08] MEDS ORDERED: Potassium Replacement Protocol 1 EACH MISC MISCELLANE PRN (15:49)
[2018-07-08 15:56] LABS: Appearance,Urine Clear (Clear); Bilirubin,Urine Negative (Negative); Blood,Urine Negative (Negative); Color,Urine Colorless; Glucose,Urine (UA) Negative (Negative); Ketones,Urine Negative (Negative); Leukocyte Esterase,Urine Negative (Negative); Nitrite,Urine Negative (Negative); PH, Urine 6.5 (5.0-8.0); Protein,Urine Negative (Negative); Specific Gravity,Urine 1.006 (1.001-1.035); Urobilinogen,Urine <2.0 mg/dL (<2.0)
--- NOTE | 2018-07-08 17:12 | CT ---
EXAMINATION TYPE: CT abdomen pelvis w con DATE OF EXAM: 07/08/2018 COMPARISON: None HISTORY: Abdominal swelling. Difficulty breathing. CT DLP: 2047.6 mGycm Automated exposure control for dose reduction was used. TECHNIQUE: Helical acquisition of images was performed from the lung bases through the pelvis. CONTRAST: Performed without Oral Contrast and with IV Contrast, patient injected with mL of Isovue 370. FINDINGS: Multiple axial sections were obtained from the diaphragm to the floor the pelvis with intravenous con trast. The contrast was Isovue 100 mL. There is some patchy atelectasis at the lung bases. There is no pleural effusion. Liver and spleen ap pear normal. Bile ducts are not dilated. Stomach appears normal. There is no pancreatic mass. Gallbla dder is absent. There is no adrenal mass. Kidneys show satisfactory contrast opacification. There is no hydronephrosi s. Ureters are not dilated. There is no retroperitoneal adenopathy. Bladder distends smoothly. There is no free fluid in the pelvis. There is no inguinal hernia. There is no evidence of pelvic mass. The appendix appears normal. There is no mesenteric edema. There is no ascites or free air. There is sma ll bowel distention in the proximal small bowel with loops that measure up to 3.5 cm. Distal small maritza wel is not dilated. There is an umbilical hernia that contains fat. I see no bony destructive process . IMPRESSION: THERE IS MILDLY DILATED PROXIMAL SMALL BOWEL. NO TRANSITION POINT SEEN. THIS COULD RELATE TO PARTIAL MECHANICAL OBSTRUCTION OR ILEUS.
--- NOTE | 2018-07-08 17:18 | CT ---
EXAMINATION TYPE: CT chest angio for PE DATE OF EXAM: 07/08/2018 COMPARISON: 07/31/2017 HISTORY: Abdominal swelling. Difficulty breathing. CT DLP: 645 mGycm Automated exposure control for dose reduction was used. CONTRAST: CT Chest for pulmonary embolism performed with with IV Contrast, patient injected with 100 mL of Isov ue 370. FINDINGS: There are 3-D post processed images. There is mild subsegmental atelectasis at the lung bases. There is no pleural effusion. Heart size is normal. There is no pericardial effusion. There are no hilar ma sses. There is no mediastinal adenopathy. Thoracic aorta is intact without evidence of aneurysm or dissection. There is normal contrast opacifi cation of the pulmonary arteries. I see no filling defect. The bony thorax is intact. IMPRESSION: There is mild scarring and subsegmental atelectasis at the lung bases improved compared to last exam. No evidence of pulmonary embolism.
[2018-07-08] MEDS: POTASSIUM CHLORIDE 20 MEQ in WATER FOR INJECTION 1 100ML.BAG IVPB SCH ×4 (18:31→22:03)
[2018-07-08] MEDS: POTASSIUM CHLORIDE ER 20 MEQ TAB.ER PO SCH ×4 (19:54→23:38)
[2018-07-08] MEDS: ALPRAZolam 0.25 MG TAB PO PRN (19:54)
[2018-07-08] MEDS ORDERED: IPRATROPIUM-ALBUTEROL 3 ML NEB INHALATION PRN (20:51)
[2018-07-08] MEDS ORDERED: MECLIZINE 25 MG TAB PO PRN (20:51)
[2018-07-08] MEDS ORDERED: BUTALB/APAP/CAFF 50-325-40MG TAB PO PRN (20:51)
[2018-07-08] MEDS ORDERED: MORPHINE SULFATE ER 30 MG TABLET PO PRN (20:51)
[2018-07-08] MEDS ORDERED: DOCUSATE 100 MG CAP PO PRN (20:51)
[2018-07-08] MEDS ORDERED: DEXTROMETHORPHAN PO PRN (20:51)
[2018-07-08] MEDS ORDERED: PROMETHAZINE PO PRN (20:51)
[2018-07-08] MEDS ORDERED: BACLOFEN 10 MG TAB PO PRN (20:51)
[2018-07-08] MEDS ORDERED: SENNOSIDES-DOCUSATE SODIUM 1 EACH TAB PO PRN (20:51)
[2018-07-08] MEDS ORDERED: CEFEPIME HCL 2 GM IV SCH (21:00)
[2018-07-08] MEDS ORDERED: CEFEPIME 2 GM in SODIUM CHLORIDE 0.9% 100 ML IVPB SCH (21:00)
[2018-07-08] MEDS ORDERED: WARFARIN 10 MG TAB PO SCH (21:00)
[2018-07-08] MEDS ORDERED: WARFARIN 2 MG TAB PO SCH (21:00)
[2018-07-08] MEDS: PREGABALIN 75 MG CAP PO SCH (21:34)
[2018-07-08] MEDS: METOPROLOL TARTRATE 50 MG TAB PO SCH (21:34)
[2018-07-08] MEDS: HYDROmorphone 0.5 MG/0.5 ML SYRINGE IVP PRN (21:39)
[2018-07-08] MEDS: CEFEPIME 2 GM in SODIUM CHLORIDE 0.9% 100 ML IVPB SCH (22:00)
[2018-07-08] MEDS ORDERED: WARFARIN 0.5 MG TAB PO ONE (22:00)
[2018-07-08] MEDS: NYSTATIN 100,000 UNIT/GM POWD 15 GM TOPICAL SCH (22:18)
[2018-07-08] MEDS: MIRTAZAPINE 45 MG TABLET PO SCH (22:18)
--- NOTE | 2018-07-08 22:25 | HP ---
HISTORY AND PHYSICAL DATE OF SERVICE: 07/08/2018. CHIEF COMPLAINTS: Multiple chief complaints including fever, weakness and as well as abdominal pain This 48-year-old woman with a past medical history of multiple medical problems including history of COPD, history of DVT, history of hypertension, hyperlipidemia, myocardial infarction, history of pulmonary embolism, hypothyroidism and history of sarcoidosis, being followed by Dr. Liz Koch in the outpatient setting also had history of anxiety, bipolar depression, panic disorder, also. The patient was recently admitted to [facility] with complaints of possibly sepsis secondary to Pseudomonas pneumonia and possibly tracheobronchitis and patient had bronchoscopy. The patient is currently on PICC line. The patient apparently left the hospital AGAINST MEDICAL ADVICE and the patient is now complaining of fever, weakness, cough and sputum and diarrhea. The patient admitted for further evaluation and treatment. The patient does was receiving Maxipime. There is no history of fever, any rigors. No history of headache, loss of consciousness, seizures. Patient complaining of diffuse abdominal pain as well lower part and some erythema also. PAST MEDICAL HISTORY: History of CHF, history of DVT, history of hypertension, hyperlipidemia, history of myocardial infarction, history of pulmonary embolism, history of multiple episodes of sepsis, multiple organisms. MEDICATIONS: Prior to admission home medications are: 1. Coumadin 10 mg q.h.s. and 12 mg q.h.s. 2. Senokot-S 2 tabs b.i.d. p.r.n. 3. Zofran 4 mg q.6h. 4. Lamictal 200 mg p.o. daily. 5. Promethazine 5 mL p.o. q.6h p.r.n. 6. Lyrica 150 mg p.o. b.i.d. 7. K-Dur 20 mEq p.o. daily. 8. Nystatin powder one application b.i.d. 9. MS Contin 30 mg q.6h p.r.n. 10.Remeron 45 mg q.h.s. 11.Lopressor 50 mg p.o. b.i.d. 12.Meclizine 25 mg t.i.d. p.r.n. 13.DuoNeb q.i.d. p.r.n. 14.Lorain 10 mg q.6h p.r.n. 15.Prozac 20 mg p.o. daily. 16.Colace 100 mg b.i.d. p.r.n. 17.Maxipime 2 g IV b.i.d. 18.Fioricet 50/320 mg 1 tab q.4h p.r.n. 19.Bumex 2 mg p.o. daily. 20.Lioresal 20 mg q.8 p.r.n. 21.Xanax 0.5 mg p.o. b.i.d. ALLERGIES: KETOROLAC, IODINATED CONTRAST DYE, XARELTO, IMITREX and ULTRAM, IODINE, VANCOMYCIN, NICOL WIPES. FAMILY HISTORY: History of multiple medical problems including CHF, CVA, TIA, DVT, myocardial infarction, polycythemia. MEDICATIONS: Medications prior to admission are noted. SOCIAL HISTORY: Previous history of smoking. No history of current smoking. No alcohol. REVIEW OF SYSTEMS: ENT: No diminished hearing or vision. CARDIOVASCULAR: No angina or palpitations. RESPIRATORY: As mentioned earlier. GASTROINTESTINAL: As mentioned earlier. no dysuria. NERVOUS SYSTEM: No numbness or weakness. ALLERGY/IMMUNOLOGY: No asthma or hayfever. MUSCULOSKELETAL as mentioned earlier. HEMATOLOGY/ONCOLOGY: No history of anemia. ENDOCRINE: No history of diabetes or hypothyroidism. CONSTITUTIONAL: As mentioned earlier. Dermatology: Negative. Rheumatology: Negative. Psychiatry: As mentioned earlier. PHYSICAL EXAM: Patient is alert, oriented x3. The pulse is 92, blood pressure 118/70, respiration 17, temperature 98.4, pulse ox 98% on room air. HEENT: Conjunctivae normal. NECK: No jugular venous distention. CARDIOVASCULAR: S1, S2. RESPIRATIONS: Breath sounds diminished in the bases. Bilateral scattered rhonchi and crackles. Expiratory wheezing also present. ABDOMEN: Soft, obese, nontender. Mild diffuse discomfort to palpation. No guarding. No rigidity. No mass palpable. Legs no edema. No swelling. CENTRAL NERVOUS SYSTEM: Higher functions as mentioned earlier. Moves all four extremities. No focal deficits. Lymphatics: No lymph nodes palpable in the neck, axillae or groin. SKIN: No ulcer, no rash or bleeding. JOINTS: No active deforming arthropathy. LAB STUDIES: WBC 11, hemoglobin 14.3, INR 3.4. Sodium 130, potassium 2.2. Other labs are noted. ASSESSMENT: 1. Abdominal pain, vomiting, diarrhea, possibly a paralytic ileus. 2. Rule out small-bowel obstruction. 3. Severe hypokalemia. 4. Rule out sepsis. 5. Increased WBC. 6. History of recent Pseudomonas sepsis with SARS. 7. Chronic obstructive pulmonary disease. 8. History of congestive heart failure. 9. History of deep vein thrombosis. 10.History of pulmonary embolism. 11.Hypertension. 12.Hyperlipidemia. 13.Myocardial infarction. 14.History of pneumonia. 15.History hypothyroidism. 16.History of bronchoscopy. 17.History of MRSA pneumonia. 18.History of section. 19.History of cholecystectomy. 20.Anxiety, bipolar depression, panic disorder. 21.Obesity with body mass of 39.5. RECOMMENDATIONS AND DISCUSSION: In this 48-year-old woman who presented with multiple complex medical issues, we will monitor the patient closely, continue the current medications, and symptomatic treatment. I would recommend continue the broad-spectrum IV antibiotics. Infectious disease evaluation. Surgical evaluation. Keep the patient n.p.o. except medications. Otherwise symptomatic treatment noted. Obtain cultures. Resume the home medications. Guarded prognosis because of multiple complex medical issues. Further recommendations to follow. A copy of dictation being forwarded to Dr. Liz Koch who is the primary physician. MMODL / IJN: [id number] /
[2018-07-08] MEDS: ONDANSETRON ODT 4 MG TAB PO SCH (23:38)
[2018-07-09] MEDS: ONDANSETRON ODT 4 MG TAB PO SCH ×4 (06:06→23:38)
[2018-07-09] MEDS: POTASSIUM CHLORIDE ER 20 MEQ TAB.ER PO SCH ×4 (08:20→22:29)
--- NOTE | 2018-07-09 08:54 | P.CONS ---
History of Present Illness - Reason for Consult Consult date: 07/09/18 SPO, hypokalemia, history of Pseudomonas - History of Present Illness This is a 48-year-old female known to ID service and she has multiple medical troubles including obesity and sarcoidosis, recent treatment for Pseudomonas and was discharged from the hospital on July 03 to complete 2 week course of cefepime. She states she has been receiving the cefepime as scheduled and has not missed any doses. She denies any trouble with her midline. The patient comes back into [facility] emergency center complaining of feeling tired, fever 101.3. She states her shortness of breath is about her baseline and she gets worse with activity. She is on home O2 at 3 L nasal cannula. She complains of nausea without vomiting. Her last bowel movement was yesterday morning. She denies any dysuria. Patient has been afebrile since admission. White count at 11, INR 3.5, potassium 2.6 and has been replaced, creatinine 0.96. Albumin 3.3. Urinalysis is negative. Influenza testing negative. Patient is currently on a clear liquid diet and tolerating. CT of the abdomen and pelvis with contrast reveals mildly dilated proximal small bowel. No transition point seen. This could relate to partial mechanical obstruction or ileus. CTA of the chest shows mild scarring and subsegmental atelectasis at the lung bases improved compared to last exam. No evidence of pulmonary embolism. Review of Systems All systems: negative Constitutional: Reports chills, Reports fatigue, Reports fever, Reports lethargy, Reports malaise, Reports poor appetite, Reports weakness Eyes: denies blurred vision, denies pain Ears, nose, mouth and throat: Denies dental pain, Denies dysphagia, Denies head ache, Denies mouth pain, Denies sore throat, Denies vertigo Cardiovascular: Reports decreased exercise tolerance, Reports dyspnea on exertion, Denies chest pain, Denies edema, Denies leg edema, Denies shortness of breath, Denies syncope Respiratory: Reports dyspnea, Reports home oxygen, Denies cough, Denies hemoptysis Gastrointestinal: Reports loss of appetite, Reports nausea, Denies abdominal pain, Denies change in bowel habits, Denies constipation, Denies diarrhea, Denies hematemesis, Denies melena, Denies vomiting Genitourinary: Denies dysuria, Denies hematuria, Denies urgency, Denies urinary frequency Musculoskeletal: Denies frequent falls, Denies gait dysfunction, Denies myalgias Integumentary: Denies pruritus, Denies rash, Denies wounds Neurological: Denies aphasia, Denies change in mentation, Denies confusion, Denies gait dysfunction, Denies numbness, Denies weakness Psychiatric: Denies anxiety, Denies depression Endocrine: Denies fatigue, Denies weight change Past Medical History Past Medical History: Blood Disorder, Heart Failure, COPD, Deep Vein Thrombosis (DVT), Hyperlipidemia, Hypertension, Myocardial Infarction (IN), Musculoskeletal Disorder, Pneumonia, Pulmonary Embolus (PE), Thyroid Disorder Additional Past Medical History / Comment(s): PE 2012; Sarcoidosis diagnosed in 2015 following a bronchoscopy and lung biopsy done at [facility] and she was started on predniosone and she took the therapy for almost 1 year, polycythemia, overweight, bilateral PE (2011, 2015), bilateral DVTs, fibromyalgia, bipolar disorder, degenerative disk disorder, coronary artery disease along with pre vious history of a IN and ventilator dependent respiratory failure with MRSA pneumonia for which the patient was hospitalized [facility] in 2012. Viral meningitis in October 2014. Pulmonary fibrosis, home 02 3l n/c Last Myocardial Infarction Date:: February 15, 2013 History of Any Multi-Drug Resistant Organisms: MRSA Year Discovered:: 11/09/17 MDRO Source:: PLEURAL FLUID Past Surgical History: Section, Cholecystectomy, Heart Catheterization, Hernia Repair, Orthopedic Surgery Additional Past Surgical History / Comment(s): Lt ankle surgery, several bronchosopy-most recently 11/09/17 Past Anesthesia/Blood Transfusion Reactions: Motion Sickness, Postoperative Nausea & Vomiting (PONV) Additional Past Anesthesia/Blood Transfusion Reaction / Comm: previously charted -pt stated that last April she coded due to anesthetic Past Psychological History: Anxiety, Bipolar, Depression, Panic Disorder Smoking Status: Former smoker Past Alcohol Use History: None Reported Additional Past Alcohol Use History / Comment(s): patient lives with her significant other. last admit 11-03-17 pt was smoking 1ppd. denies alcohol use or recreational drug use. Patient is currently not working. No service. No recent travel. No animal exposures. She did leave the hospital AMA in March 2017 and October 2017. Difficulties with ongoing medical noncompliance. Patient quit smoking 3 weeks ago. There is a dog in the home. Past Drug Use History: None Reported - Past Family History Father Family Medical History: Blood Disorder, Congestive Heart Failure (CHF), CVA/TIA, Deep Vein Thrombosis (DVT), Myocardial Infarction (IN) Additional Family Medical History / Comment(s): polycythemia Mother Family Medical History: Congestive Heart Failure (CHF), Diabetes Mellitus, Deep Vein Thrombosis (DVT), Myocardial Infarction (IN), Musculoskeletal Disorder Additional Family Medical History / Comment(s): DDD Sister(s) Family Medical History: No Reported History Brother(s) Family Medical History: No Reported History Son(s) Family Medical History: No Reported History Daughter(s) Family Medical History: No Reported History Medications and Allergies Home Medications Medication Instructions Recorded Confirmed Type FLUoxetine HCL [PROzac] 20 mg PO DAILY #30 capsule 08/20/15 07/08/18 Rx Metoprolol Tartrate [Lopressor] 50 mg PO BID #60 tab 08/20/15 07/08/18 Rx lamoTRIgine [LaMICtal] 200 mg PO DAILY 03/22/16 07/08/18 History Bumetanide 4 mg PO QAM 10/18/16 07/08/18 History Butalb/APAP/Caff 50-325-40Mg 1 tab PO Q4H PRN 10/18/16 07/08/18 History [Fioricet 50-325-40] Mirtazapine [Remeron] 45 mg PO HS 04/10/17 07/08/18 History ALPRAZolam [Xanax] 0.5 mg PO TID PRN 06/06/17 07/08/18 History Bumetanide [BUMEX] 2 mg PO DAILY@1200 09/16/17 07/08/18 History Pregabalin [Lyrica] 150 mg PO BID 09/16/17 07/08/18 History Baclofen [Lioresal] 20 mg PO Q8H PRN 10/09/17 07/08/18 History Morphine Sulfate ER [Ms Contin] 30 mg PO Q6H PRN 11/03/17 07/08/18 History Nystatin 100,000 Unit/gm Powd 1 applic TOPICAL BID 11/04/17 07/08/18 History [Mycostatin Powder] Promethazine/Dextromethorphan 5 ml PO Q6H PRN 11/04/17 07/08/18 History [Promethazine-Dm Solution] Docusate [Colace] 100 mg PO BID PRN #60 cap 11/10/17 07/08/18 Rx Potassium Chloride ER [K-Dur 20] 20 meq PO DAILY #30 tab.er.prt 11/10/17 07/08/18 Rx Sennosides-Docusate Sodium 2 tab PO BID PRN 12/07/17 07/08/18 History [Senokot-S] Hydrocodone/Acetaminophen [[place] 1 tab PO Q6H PRN 3 Days #12 tab 12/09/17 07/08/18 Rx 10-325] Warfarin [Coumadin] 10 mg PO HS 01/20/18 07/08/18 History Ipratropium-Albuterol Nebulize 3 ml INHALATION RT-QID PRN 05/22/18 07/08/18 History [Duoneb 0.5 mg-3 mg/3 ml Soln] Meclizine HCl 25 mg PO TID PRN 05/22/18 07/08/18 History Ondansetron [Zofran ODT] 4 mg PO Q6H 06/24/18 07/08/18 History Cefepime HCl [Maxipime] 2 gm IV Q12H #28 vial 07/04/18 07/08/18 Rx Warfarin Sodium [Coumadin] 2 mg PO HS 07/08/18 07/08/18 History Allergies Allergy/AdvReac Type Severity Reaction Status Date / Time ketorolac tromethamine Allergy Severe Anaphylaxis Verified 07/08/18 15:36 [From Toradol] adhesive Allergy Rash/Hives Verified 07/08/18 15:36 Iodinated Contrast- Oral and Allergy Unknown Verified 07/08/18 15:36 IV Dye rivaroxaban [From Xarelto] Allergy Rash/Hives Verified 07/08/18 15:36 sumatriptan [From Imitrex] Allergy Anaphylaxis Verified 07/08/18 15:36 sumatriptan succinate Allergy Anaphylaxis Verified 07/08/18 15:36 [From Imitrex] tramadol Allergy Anaphylaxis Verified 07/08/18 15:36 iodine AdvReac Intermediate Itching Verified 07/08/18 15:36 vancomycin AdvReac Itching Verified 07/08/18 15:36 Rich wipes Allergy Severe Rash/Hives Uncoded 07/08/18 14:15 Physical Exam Vitals: Vital Signs Temp Pulse Pulse Resp BP BP Pulse Ox 07/09/18 06:55 99.0 F 81 14 102/60 93 L 07/09/18 01:06 97.9 F 73 16 113/74 94 L 07/08/18 19:39 98.2 F 92 17 119/73 96 07/08/18 16:10 96/69 96 07/08/18 16:00 114/63 96 07/08/18 15:50 114/63 94 L 07/08/18 15:47 97 07/08/18 14:11 99.1 F 80 16 119/72 96 Intake and Output 07/08/18 07/09/18 07/09/18 22:59 06:59 14:59 Intake Total 100 Balance 100 Intake: Oral 100 This is a 48-year-old obese female. Patient is sitting on the edge of the bed and appears to be mostly comfortable. No respiratory distress noted. HEENT: Anicteric conjunctiva are pink and moist nasal mucosa grossly intact without significant lesions, there is no thrush. Oral pharynx without edema or erythema. Neck: The neck is supple without significant lymphadenopathy or thyromegaly. Lungs: Symmetrical air entry is noted, no significant wheezes or rhonchi. Poor inspiratory effort. Heart: Regular rate and rhythm with an audible S1-S2, no S3 no S4. There is no significant murmur click or rub, PMI was nondisplaced. Abdomen: Obese, Positive bowel sounds soft and nontender without palpable masses or organomegaly. There was no guarding or rebound. Extremities: The upper extremities have excellent pulses they are symmetric, no significant petechiae or telangiectasia. No splinter hemorrhages were noted. Midline is noted to the left upper arm without tenderness, erythema, drainage. No pedal edema The peripheral pulses were 2+ and symmetric. Neuro: Awake alert oriented to person place and time. There are no acute new gross focal sensory motor deficits. Results Results: Laboratory Results WBC 11.0 k/uL (3.8-10.6) H 07/08/18 15:00 RBC 4.66 m/uL (3.80-5.40) 07/08/18 15:00 Hgb 14.3 gm/dL (11.4-16.0) 07/08/18 15:00 Hct 41.2 % (34.0-46.0) 07/08/18 15:00 MCV 88.5 fL (80.0-100.0) 07/08/18 15:00 MCH 30.8 pg (25.0-35.0) 07/08/18 15:00 MCHC 34.8 g/dL (31.0-37.0) 07/08/18 15:00 RDW 15.5 % (11.5-15.5) 07/08/18 15:00 Plt Count 171 k/uL (150-450) 07/08/18 15:00 Neutrophils % 58 % 07/08/18 15:00 Lymphocytes % 31 % 07/08/18 15:00 Monocytes % 5 % 07/08/18 15:00 Eosinophils % 3 % 07/08/18 15:00 Basophils % 0 % 07/08/18 15:00 Neutrophils # 6.4 k/uL (1.3-7.7) 07/08/18 15:00 Lymphocytes # 3.5 k/uL (1.0-4.8) 07/08/18 15:00 Monocytes # 0.6 k/uL (0-1.0) 07/08/18 15:00 Eosinophils # 0.3 k/uL (0-0.7) 07/08/18 15:00 Basophils # 0.0 k/uL (0-0.2) 07/08/18 15:00 PT 33.4 sec (9.0-12.0) H 07/08/18 15:00 INR 3.5 (<1.2) H 07/08/18 15:00 APTT 30.0 sec (22.0-30.0) 07/08/18 15:00 Sodium 138 mmol/L (137-145) 07/08/18 15:00 Potassium 2.6 mmol/L (3.5-5.1) L* 07/08/18 15:00 Chloride 101 mmol/L (98-107) 07/08/18 15:00 Carbon Dioxide 29 mmol/L (22-30) 07/08/18 15:00 Anion Gap 8 mmol/L 07/08/18 15:00 BUN 18 mg/dL (7-17) H 07/08/18 15:00 Creatinine 0.96 mg/dL (0.52-1.04) 07/08/18 15:00 Est GFR (CKD-EPI)AfAm 82 (>60 ml/min/1.73 sqM) 07/08/18 15:00 Est GFR (CKD-EPI)NonAf 71 (>60 ml/min/1.73 sqM) 07/08/18 15:00 Glucose 109 mg/dL (74-99) H 07/08/18 15:00 Plasma Lactic Acid [place] 1.1 mmol/L (0.7-2.0) 07/08/18 15:00 Calcium 8.8 mg/dL (8.4-10.2) 07/08/18 15:00 Magnesium 1.9 mg/dL (1.6-2.3) 07/08/18 15:00 Total Bilirubin 0.4 mg/dL (0.2-1.3) 07/08/18 15:00 AST 27 U/L (14-36) 07/08/18 15:00 ALT 37 U/L (9-52) 07/08/18 15:00 Alkaline Phosphatase 65 U/L (38-126) 07/08/18 15:00 Troponin I <0.012 ng/mL (0.000-0.034) 07/08/18 15:00 Total Protein 6.0 g/dL (6.3-8.2) L 07/08/18 15:00 Albumin 3.3 g/dL (3.5-5.0) L 07/08/18 15:00 Urine Color Colorless 07/08/18 15:40 Urine Appearance Clear (Clear) 07/08/18 15:40 Urine pH 6.5 (5.0-8.0) 07/08/18 15:40 Ur Specific [place] 1.006 (1.001-1.035) 07/08/18 15:40 Urine Protein Negative (Negative) 07/08/18 15:40 Urine Glucose (UA) Negative (Negative) 07/08/18 15:40 Urine Ketones Negative (Negative) 07/08/18 15:40 Urine Blood Negative (Negative) 07/08/18 15:40 Urine Nitrite Negative (Negative) 07/08/18 15:40 Urine Bilirubin Negative (Negative) 07/08/18 15:40 Urine Urobilinogen <2.0 mg/dL (<2.0) 07/08/18 15:40 Ur Leukocyte Esterase Negative (Negative) 07/08/18 15:40 Influenza Type A RNA Not Detected (Not Detectd) 07/08/18 15:00 Influenza Type B (PCR) Not Detected (Not Detectd) 07/08/18 15:00 CBC & Chem 7: 07/08/18 15:00 07/08/18 15:00 Labs: Abnormal Lab Results - Last 24 Hours (Table) 07/08/18 07/08/18 07/08/18 Range/Units 15:00 15:00 15:00 WBC 11.0 H (3.8-10.6) k/uL PT 33.4 H (9.0-12.0) sec INR 3.5 H (<1.2) Potassium 2.6 L* (3.5-5.1) mmol/L BUN 18 H (7-17) mg/dL Glucose 109 H (74-99) mg/dL Total Protein 6.0 L (6.3-8.2) g/dL Albumin 3.3 L (3.5-5.0) g/dL Microbiology - Last 24 Hours (Table) 07/08/18 15:40 Urine Culture - Preliminary Urine,Voided Assessment and Plan Plan: This is a 48-year-old female who presents to hospital with complaints of generalized fatigue and fever. Patient has been treated for Pseudomonas pneumonia on cefepime and course will be completed on July 17. Patient will be continued on cefepime in the hospital. Blood cultures status received Continue supportive care. Patient is interested in influenza vaccine. Further recommendations as patient progresses. The above dictated assessment and findings were discussed with Dr. Lott. The impression and plan of care have been directed as dictated. Jen Burr nurse practitioner acting as scribe for Dr. Lott.
[2018-07-09] MEDS: HYDROmorphone 0.5 MG/0.5 ML SYRINGE IVP PRN ×4 (10:03→22:29)
[2018-07-09] MEDS: PREGABALIN 75 MG CAP PO SCH ×2 (10:28→21:02)
[2018-07-09] MEDS: FLUoxetine HCL 20 MG CAP PO SCH (10:29)
[2018-07-09] MEDS: METOPROLOL TARTRATE 50 MG TAB PO SCH ×2 (10:29→21:02)
[2018-07-09] MEDS: lamoTRIgine 100 MG TAB PO SCH (10:29)
[2018-07-09] MEDS: PANTOPRAZOLE 40 MG/10 ML VIAL IVP SCH (10:29)
[2018-07-09] MEDS: CEFEPIME 2 GM in SODIUM CHLORIDE 0.9% 100 ML IVPB SCH ×2 (10:30→21:01)
[2018-07-09] MEDS: BUMETANIDE 1 MG TAB PO SCH ×2 (10:31→15:31)
[2018-07-09] MEDS: NYSTATIN 100,000 UNIT/GM POWD 15 GM TOPICAL SCH ×2 (10:32→21:04)
[2018-07-09 11:28] LABS: INR 4.1 (<1.2); Prothrombin Time 39.4 sec (9.0-12.0)
[2018-07-09 11:34] LABS: Anion Gap 5 mmol/L; Blood Urea Nitrogen 13 mg/dL (7-17); Calcium 8.6 mg/dL (8.4-10.2); Carbon Dioxide 29 mmol/L (22-30); Chloride 105 mmol/L (98-107); Glucose 87 mg/dL (74-99); Potassium 3.1 mmol/L (3.5-5.1); Sodium 139 mmol/L (137-145)
[2018-07-09 12:10] LABS: Basophils % (A) 0 %; Eosinophils # (A) 0.1 k/uL (0-0.7); Eosinophils % (A) 1 %; HCT 41.2 % (34.0-46.0); HGB 13.4 gm/dL (11.4-16.0); Lymphocytes # (A) 1.9 k/uL (1.0-4.8); Lymphocytes % (A) 16 %; MCH 29.6 pg (25.0-35.0); MCHC 32.5 g/dL (31.0-37.0); MCV 91.3 fL (80.0-100.0); Mean Platelet Volume 7.3; Monocytes % (A) 9 %; Neutrophils # (A) 8.6 k/uL (1.3-7.7); Neutrophils % (A) 73 %; Platelet Count 188 k/uL (150-450); RBC 4.52 m/uL (3.80-5.40); RDW 14.6 % (11.5-15.5); WBC 11.8 k/uL (3.8-10.6)
--- NOTE | 2018-07-09 12:27 | P.CNPUL ---
History of Present Illness Consult date: 07/09/18 Requesting physician: Gonsalo Church Reason for consult: dyspnea Chief complaint: Shortness of breath, cough, congestion History of present illness: This is a very pleasant 48-year-old female patient who follows with Dr. Koch as her primary care physician. She has a history of bipolar disor chris, fibromyalgia, coronary artery disease with previous AL, hypertension, hyperlipidemia, chronic pain and chronic narcotic use, chronic obstructive pulmonary disease. Previous PE/DVT and anticoagulated with warfarin. She also has a history of biopsy-proven sarcoidosis. She's had ventilator-dependent respiratory failure and bronchoscopies in the past which have grown MRSA, Enterococcus faecalis and Staphylococcus species. She had undergone bronchoscopy with BAL most recently on 07/02/2018 and was found to have pseudomonas aeruginosa. She has been treated with cefepime 2 g IV every 12 hour s via a midline in the outpatient setting. She presented to the emergency room again yesterday with complaints of increasing shortness of breath, loose nonproductive cough. Admission oxygen 96% on room air. She's been afebrile. Hemodynamically stable. White count 11.0. Hemoglobin 14.3. INR 3.5. Potassium 2.6. Creatinine 0.96. Influenza screen was negative. CT angiogram for PE despite her supratherapeutic INR was performed. There is mild scarring and subsegmental atelectasis at the lung bases improved compared to last exam. No pulmonary embolism. There is also a computed tomography scan of the abdomen which revealed mildly dilated proximal small bowel. No transition point seen. This could relate to partial mechanical obstruction or ileus. The patient did have abdominal fullness. However she states she has been having normal bowel movements. She was seen today in consultation on the regular medical floor. She is awake and alert in no acute distress. Still maintaining O2 saturations in the 90s on room air. INR 4.1. Sodium 139. Potassium 3.1. Creatinine 0.69. No abdominal discomfort. She has a loose nonproductive cough. She is continued on cefepime and bronchodilators.. Review of Systems REVIEW OF SYSTEMS: CONSTITUTIONAL: Denies any recent significant weight loss or weight gain. EYES: Denies change in vision. EARS, NOSE, MOUTH, THROAT: Denies headaches, denies sore throat. CARDIOVASCULAR: Denies chest pain, palpitations or syncopal episodes. RESPIRATORY: Positive for shortness of breath, cough, congestion no hemoptysis. GASTROINTESTINAL: Denies change in appetite, denies abdominal pain GENITOURINARY: Denies hematuria, denies infections. MUSKULOSKELETAL: Denies pain, denies swelling. INTEGUMENTARY: Denies rash, denies eczema. NEUROLOGICAL: Denies recent memory loss, no recent seizure activity. PSYCHIATRIC: Denies anxiety, denies depression. HEMATOLOGIC/LYMPHATIC: Denies anemia, denies enlarged lymph nodes. Past Medical History Past Medical History: Blood Disorder, Heart Failure, COPD, Deep Vein Thrombosis (DVT), Hyperlipidemia, Hypertension, Myocardial Infarction ([place]), Musculoskeletal Disorder, Pneumonia, Pulmonary Embolus (PE), Thyroid Disorder Additional Past Medical History / Comment(s): PE 2012; Sarcoidosis diagnosed in 2015 following a bronchoscopy and lung biopsy done at [facility] and she was started on predniosone and she took the therapy for almost 1 year, polycythemia, overweight, bilateral PE (2011, 2015), bilateral DVTs, fibromyalgia, bipolar disorder, degenerative disk disorder, coronary artery disease along with previous history of a [place] and ventilator dependent respiratory failure with MRSA pneumonia for which the patient was hospitalized [facility] in 2012. Viral meningitis in October 2014. Pulmonary fibrosis, home 02 3l n/c Last Myocardial Infarction Date:: February 15, 2013 History of Any Multi-Drug Resistant Organisms: MRSA Date of last positivie culture/infection: 11/09/17 MDRO Source:: PLEURAL FLUID Past Surgical History: Section, Cholecystectomy, Heart Catheterization, Hernia Repair, Orthopedic Surgery Additional Past Surgical History / Comment(s): Lt ankle surgery, several bronchosopy-most recently 11/09/17 Past Anesthesia/Blood Transfusion Reactions: Motion Sickness, Postoperative Nausea & Vomiting (PONV) Additional Past Anesthesia/Blood Transfusion Reaction / Comment(s): previously charted -pt stated that last April she coded due to anesthetic Past Psychological History: Anxiety, Bipolar, Depression, Panic Disorder Smoking Status: Former smoker Past Alcohol Use History: None Reported Additional Past Alcohol Use History / Comment(s): patient lives with her significant other. last admit 11-03-17 pt was smoking 1ppd. denies alcohol use or recreational drug use. Patient is currently not working. No service. No recent travel. No animal exposures. She did leave the hospital AMA in March 2017 and October 2017. Difficulties with ongoing medical noncompliance. Patient quit smoking 3 weeks ago. There is a dog in the home. Past Drug Use History: None Reported - Past Family History Father Family Medical History: Blood Disorder, Congestive Heart Failure (CHF), CVA/TIA, Deep Vein Thrombosis (DVT), Myocardial Infarction ([place]) Additional Family Medical History / Comment(s): polycythemia Mother Family Medical History: Congestive Heart Failure (CHF), Diabetes Mellitus, Deep Vein Thrombosis (DVT), Myocardial Infarction ([place]), Musculoskeletal Disorder Additional Family Medical History / Comment(s): DDD Sister(s) Family Medical History: No Reported History Brother(s) Family Medical History: No Reported History Son(s) Family Medical History: No Reported History Daughter(s) Family Medical History: No Reported History Medications and Allergies Home Medications Medication Instructions Recorded Confirmed Type FLUoxetine HCL [PROzac] 20 mg PO DAILY #30 capsule 08/20/15 07/08/18 Rx Metoprolol Tartrate [Lopressor] 50 mg PO BID #60 tab 08/20/15 07/08/18 Rx lamoTRIgine [LaMICtal] 200 mg PO DAILY 03/22/16 07/08/18 History Bumetanide 4 mg PO QAM 10/18/16 07/08/18 History Butalb/APAP/Caff 50-325-40Mg 1 tab PO Q4H PRN 10/18/16 07/08/18 History [Fioricet 50-325-40] Mirtazapine [Remeron] 45 mg PO HS 04/10/17 07/08/18 History ALPRAZolam [Xanax] 0.5 mg PO TID PRN 06/06/17 07/08/18 History Bumetanide [BUMEX] 2 mg PO DAILY@1200 09/16/17 07/08/18 History Pregabalin [Lyrica] 150 mg PO BID 09/16/17 07/08/18 History Baclofen [Lioresal] 20 mg PO Q8H PRN 10/09/17 07/08/18 History Morphine Sulfate ER [Ms Contin] 30 mg PO Q6H PRN 11/03/17 07/08/18 History Nystatin 100,000 Unit/gm Powd 1 applic TOPICAL BID 11/04/17 07/08/18 History [Mycostatin Powder] Promethazine/Dextromethorphan 5 ml PO Q6H PRN 11/04/17 07/08/18 History [Promethazine-Dm Solution] Docusate [Colace] 100 mg PO BID PRN #60 cap 11/10/17 07/08/18 Rx Potassium Chloride ER [K-Dur 20] 20 meq PO DAILY #30 tab.er.prt 11/10/17 Rx Sennosides-Docusate Sodium 2 tab PO BID PRN 12/07/17 07/08/18 History [Senokot-S] Hydrocodone/Acetaminophen [[place] 1 tab PO Q6H PRN 3 Days #12 tab 12/09/17 07/08/18 Rx 10-325] Warfarin [Coumadin] 10 mg PO HS 01/20/18 07/08/18 History Ipratropium-Albuterol Nebulize 3 ml INHALATION RT-QID PRN 05/22/18 07/08/18 History [Duoneb 0.5 mg-3 mg/3 ml Soln] Meclizine HCl 25 mg PO TID PRN 05/22/18 07/08/18 History Ondansetron [Zofran ODT] 4 mg PO Q6H 06/24/18 07/08/18 History Cefepime HCl [Maxipime] 2 gm IV Q12H #28 vial 07/04/18 07/08/18 Rx Warfarin Sodium [Coumadin] 2 mg PO HS 07/08/18 07/08/18 History Allergies Allergy/AdvReac Type Severity Reaction Status Date / Time ketorolac tromethamine Allergy Severe Anaphylaxis Verified 07/08/18 15:36 [From Toradol] adhesive Allergy Rash/Hives Verified 07/08/18 15:36 Iodinated Contrast- Oral and Allergy Unknown Verified 07/08/18 15:36 IV Dye rivaroxaban [From Xarelto] Allergy Rash/Hives Verified 07/08/18 15:36 sumatriptan [From Imitrex] Allergy Anaphylaxis Verified 07/08/18 15:36 sumatriptan succinate Allergy Anaphylaxis Verified 07/08/18 15:36 [From Imitrex] tramadol Allergy Anaphylaxis Verified 07/08/18 15:36 iodine AdvReac Intermediate Itching Verified 07/08/18 15:36 vancomycin AdvReac Itching Verified 07/08/18 15:36 Rich wipes Allergy Severe Rash/Hives Uncoded 07/08/18 14:15 Physical Exam Vitals: Vital Signs Temp Pulse Pulse Resp BP BP Pulse Ox 07/09/18 06:55 99.0 F 81 14 102/60 93 L 07/09/18 01:06 97.9 F 73 16 113/74 94 L 07/08/18 19:39 98.2 F 92 17 119/73 96 07/08/18 16:10 96/69 96 07/08/18 16:00 114/63 96 07/08/18 15:50 114/63 94 L 07/08/18 15:47 97 07/08/18 14:11 99.1 F 80 16 119/72 96 Intake and Output 07/08/18 07/09/18 07/09/18 22:59 06:59 14:59 Intake Total 100 Balance 100 Intake: Oral 100 Other: Weight 114.8 kg GENERAL EXAM: Alert, active, morbidly obese 48-year-old female patient, comfortable in no apparent distress. On room air. HEAD: Normocephalic. EYES: Normal reaction of pupils, equal size. NOSE: Clear with pink turbinates. THROAT: No erythema or exudates. NECK: No masses, no JVD. CHEST: No chest wall deformity. LUNGS: Equal air entry with rhonchi, end expiratory wheeze, diminished. CVS: S1 and S2 normal with no audible murmur, regular rhythm. ABDOMEN: No hepatosplenomegaly, normal bowel sounds, no guarding or rigidity. SPINE: No scoliosis or deformity SKIN: No rashes CENTRAL NERVOUS SYSTEM: No focal deficits, tone is normal in all 4 extremities. EXTREMITIES: There is trace peripheral edema. No clubbing, no cyanosis. Peripheral pulses are intact. Results - Laboratory Findings CBC and BMP: 07/08/18 15:00 07/09/18 10:49 PT/INR, D-dimer PT 39.4 sec (9.0-12.0) H 07/09/18 10:49 INR 4.1 (<1.2) H 07/09/18 10:49 Abnormal lab findings: Abnormal Labs 07/08/18 07/08/18 07/08/18 15:00 15:00 15:00 WBC 11.0 H PT 33.4 H INR 3.5 H Potassium 2.6 L* BUN 18 H Glucose 109 H Total Protein 6.0 L Albumin 3.3 L 07/09/18 07/09/18 10:49 10:49 WBC PT 39.4 H INR 4.1 H Potassium 3.1 L BUN Glucose Total Protein Albumin - Diagnostic Findings Chest x-ray: image reviewed CT scan - chest: image reviewed Assessment and Plan Assessment: Impression: #1 Acute exacerbation of chronic obstructive pulmonary disease complicated by pseudomonas aeruginosa and previous bronchoscopy 07/02/2018. On IV cefepime in the outpatient setting. Computed tomography scan of the chest showing improvement. #2 Interstitial lung disease, biopsy-proven sarcoidosis. #3 Chronic obstructive pulmonary disease, currently inactive and stable. #4 Chronic hypoxic respiratory failure secondary to above, currently inactive and stable. #5 Sarcoidosis confirmed by lung biopsy at [facility] 2014. #6 Previous management liter dependent respiratory failure and previous pneumonias with bronchoscopies positive for MRSA, Enterococcus faecalis and staphylococcal species. #7 history of PE/DVT, anticoagulated with warfarin, currently subtherapeutic. #8 History of viral meningitis.. #9 Coronary artery disease with previous AL. #10 Hypertension. #11 Hyperlipidemia. #12 Bipolar disorder. #13 Chronic pain syndrome currently on morphine in the outpatient setting. #14 Morbid obesity. Plan: The patient was seen and evaluated by Dr. Hicks. CAT scan of the chest, abdominal CAT scan, labs all reviewed. Continue with IV cefepime and bronchodilators. ID is on the case as well. We will increase her activity as tolerated. We'll continue to follow and make further recommendations based on her clinical status. I, the cosigning physician, performed a history & physical examination of the patient. Lungs sounds with bilateral scattered rhonchi, diminished. Maintaining good O2 saturations in the 90s on room air. I discussed the assessment and plan of care with my nurse practitioner, Nicki Roper. I attest to the above consultation as dictated by her. Time with Patient: Greater than 30
--- NOTE | 2018-07-09 12:31 | CDI ---
Documentation Clarification Form Date: 07/09/2018 12:19:28 PM From: Laura Bradley RN, CCDS Admit Date: 07/08/2018 5:57:00 PM Patient Name: Meme Jones Visit Number: [id number] Discharge Date: ATTENTION: The Clinical Documentation Specialists (CDI) and [facility] Coding Staff appreciate your assistance in clarifying documentation. Please respond to the clarification below the line at the bottom and electronically sign. The CDI & [facility] Coding staff will review the response and follow-up if needed. Please note: Queries are made part of the Legal Health Record. If you have any questions, please contact the author of this message via ITS. Dr. Gonsalo Church CHF is documented in the H & P under history. History/Risk Factors: 48 y/o female presents to the ED from PCP office for possilbe Sepsis. Pt left hospital 4/3 AMA. Clinical Indicators: mecial hx CHF, COPD VS/Pulse OX: 119/72 114/63 99.1 80 16 96% Treatment: Bumex BID, Lopressor In your professional opinion, can you please clarify the acuity and type of CHF if known? Systolic Heart Failure: Chronic Diastolic Heart Failure: Chronic Systolic & Diastolic Heart Failure: Chronic Unable to Determine CHF ruled out Other, please specify (Last Revision: July 2017) Unable to Determine MTDD
--- NOTE | 2018-07-09 14:21 | P.GSCN ---
History of Present Illness Consult date: 07/09/18 Reason for Consult: SBO Requesting physician: Phan Cavazos History of present illness: CHIEF COMPLAINT: Cough, weakness HISTORY OF PRESENT ILLNESS: General surgery consult placed for evaluation of abdominal pain. Upon evaluation with patient this morning, she states she never had any abdominal pain. She reports having no episodes of nausea or vomiting. Reports she has been tolerating diet. Reports having a bowel movement and passing flatus. PAST MEDICAL HISTORY: See list. PAST SURGICAL HISTORY: See list. SOCIAL HISTORY: No illicit drug use. REVIEW OF SYSTEMS: CONSTITUTIONAL: Denies fever or chills. HEENT: Denies blurred vision, vision changes, or eye pain. Denies hemoptysis CARDIOVASCULAR: Denies chest pain or pressure. RESPIRATORY: No shortness of breath. GASTROINTESTINAL: Refer to HPI for pertinent findings HEMATOLOGIC: Denies bleeding disorders. GENITOURINARY: Denies any blood in urine. SKIN: Denies pruitis. Denies rash. PHYSICAL EXAM: VITAL SIGNS: Reviewed. GENERAL: Well-developed in no acute distress. HEENT: No sclera icterus. Extraocular movements grossly intact. Moist buccal mucosa. Head is atraumatic, normocephalic. ABDOMEN: Soft. Nondistended. Nontender. NEUROLOGIC: Alert and oriented. Cranial nerves II through XII grossly intact. ASSESSMENT: 1. Possible ileus, resolved PLAN: Continue current diet. Patient may have had an ileus which has resolved at the time of examination. No surgical intervention recommended. We will sign off. please reconsult if needed. Nurse practitioner note has been reviewed by physician. Signing provider agrees with the documented findings, assessment, and plan of care. Past Medical History Past Medical History: Blood Disorder, Heart Failure, COPD, Deep Vein Thrombosis (DVT), Hyperlipidemia, Hypertension, Myocardial Infarction ([place]), Musculoskeletal Disorder, Pneumonia, Pulmonary Embolus (PE), Thyroid Disorder Additional Past Medical History / Comment(s): PE 2012; Sarcoidosis diagnosed in 2015 following a bronchoscopy and lung biopsy done at [facility] and she was started on predniosone and she took the therapy for almost 1 year, polycythemia, overweight, bilateral PE (2011, 2015), bilateral DVTs, fibromyalgia, bipolar disorder, degenerative disk disorder, coronary artery disease along with previous history of a [place] and ventilator dependent respiratory failure with MRSA pneumonia for which the patient was hospitalized [facility] in 2012. Viral meningitis in October 2014. Pulmonary fibrosis, home 02 3l n/c Last Myocardial Infarction Date:: February 15, 2013 History of Any Multi-Drug Resistant Organisms: MRSA Year Discovered:: 11/09/17 MDRO Source:: PLEURAL FLUID Past Surgical History: Section, Cholecystectomy, Heart Catheterization, Hernia Repair, Orthopedic Surgery Additional Past Surgical History / Comment(s): Lt ankle surgery, several bronchosopy-most recently 11/09/17 Past Anesthesia/Blood Transfusion Reactions: Motion Sickness, Postoperative Nausea & Vomiting (PONV) Additional Past Anesthesia/Blood Transfusion Reaction / Comm: previously charted -pt stated that last April she coded due to anesthetic Past Psychological History: Anxiety, Bipolar, Depression, Panic Disorder Smoking Status: Former smoker Past Alcohol Use History: None Reported Additional Past Alcohol Use History / Comment(s): patient lives with her significant other. last admit 11-03-17 pt was smoking 1ppd. denies alcohol use or recreational drug use. Patient is currently not working. No ser vice. No recent travel. No animal exposures. She did leave the hospital AMA in March 2017 and October 2017. Difficulties with ongoing medical noncompliance. Patient quit smoking 3 weeks ago. There is a dog in the home. Past Drug Use History: None Reported - Past Family History Father Family Medical History: Blood Disorder, Congestive Heart Failure (CHF), CVA/TIA, Deep Vein Thrombosis (DVT), Myocardial Infarction ([place]) Additional Family Medical History / Comment(s): polycythemia Mother Family Medical History: Congestive Heart Failure (CHF), Diabetes Mellitus, Deep Vein Thrombosis (DVT), Myocardial Infarction ([place]), Musculoskeletal Disorder Additional Family Medical History / Comment(s): DDD Sister(s) Family Medical History: No Reported History Brother(s) Family Medical History: No Reported History Son(s) Family Medical History: No Reported History Daughter(s) Family Medical History: No Reported History Medications and Allergies Home Medications Medication Instructions Recorded Confirmed Type FLUoxetine HCL [PROzac] 20 mg PO DAILY #30 capsule 08/20/15 07/08/18 Rx Metoprolol Tartrate [Lopressor] 50 mg PO BID #60 tab 08/20/15 07/08/18 Rx lamoTRIgine [LaMICtal] 200 mg PO DAILY 03/22/16 07/08/18 History Bumetanide 4 mg PO QAM 10/18/16 07/08/18 History Butalb/APAP/Caff 50-325-40Mg 1 tab PO Q4H PRN 10/18/16 07/08/18 History [Fioricet 50-325-40] Mirtazapine [Remeron] 45 mg PO HS 04/10/17 07/08/18 History ALPRAZolam [Xanax] 0.5 mg PO TID PRN 06/06/17 07/08/18 History Bumetanide [BUMEX] 2 mg PO DAILY@1200 09/16/17 07/08/18 History Pregabalin [Lyrica] 150 mg PO BID 09/16/17 07/08/18 History Baclofen [Lioresal] 20 mg PO Q8H PRN 10/09/17 07/08/18 History Morphine Sulfate ER [Ms Contin] 30 mg PO Q6H PRN 11/03/17 07/08/18 History Nystatin 100,000 Unit/gm Powd 1 applic TOPICAL BID 11/04/17 07/08/18 History [Mycostatin Powder] Promethazine/Dextromethorphan 5 ml PO Q6H PRN 11/04/17 07/08/18 History [Promethazine-Dm Solution] Docusate [Colace] 100 mg PO BID PRN #60 cap 11/10/17 07/08/18 Rx Potassium Chloride ER [K-Dur 20] 20 meq PO DAILY #30 tab.er.prt 11/10/17 07/08/18 Rx Sennosides-Docusate Sodium 2 tab PO BID PRN 12/07/17 07/08/18 History [Senokot-S] Hydrocodone/Acetaminophen [[place] 1 tab PO Q6H PRN 3 Days #12 tab 12/09/17 07/08/18 Rx 10-325] Warfarin [Coumadin] 10 mg PO HS 01/20/18 07/08/18 History Ipratropium-Albuterol Nebulize 3 ml INHALATION RT-QID PRN 05/22/18 07/08/18 History [Duoneb 0.5 mg-3 mg/3 ml Soln] Meclizine HCl 25 mg PO TID PRN 05/22/18 07/08/18 History Ondansetron [Zofran ODT] 4 mg PO Q6H 06/24/18 07/08/18 History Cefepime HCl [Maxipime] 2 gm IV Q12H #28 vial 07/04/18 07/08/18 Rx Warfarin Sodium [Coumadin] 2 mg PO HS 07/08/18 07/08/18 History Allergies Allergy/AdvReac Type Severity Reaction Status Date / Time ketorolac tromethamine Allergy Severe Anaphylaxis Verified 07/08/18 15:36 [From Toradol] adhesive Allergy Rash/Hives Verified 07/08/18 15:36 Iodinated Contrast- Oral and Allergy Unknown Verified 07/08/18 15:36 IV Dye rivaroxaban [From Xarelto] Allergy Rash/Hives Verified 07/08/18 15:36 sumatriptan [From Imitrex] Allergy Anaphylaxis Verified 07/08/18 15:36 sumatriptan succinate Allergy Anaphylaxis Verified 07/08/18 15:36 [From Imitrex] tramadol Allergy Anaphylaxis Verified 07/08/18 15:36 iodine AdvReac Intermediate Itching Verified 07/08/18 15:36 vancomycin AdvReac Itching Verified 07/08/18 15:36 Rich wipes Allergy Severe Rash/Hives Uncoded 07/08/18 14:15 Surgical - Exam Vital Signs Temp Pulse Resp BP Pulse Ox 99.1 F 80 16 119/72 96 07/08/18 14:11 07/08/18 14:11 07/08/18 14:11 07/08/18 14:11 07/08/18 14:11 Results - Labs 07/09/18 10:49 07/09/18 10:49 Abnormal Lab Results - Last 24 Hours (Table) 07/08/18 07/08/18 07/08/18 Range/Units 15:00 15:00 15:00 WBC 11.0 H (3.8-10.6) k/uL Neutrophils # (1.3-7.7) k/uL PT 33.4 H (9.0-12.0) sec INR 3.5 H (<1.2) Potassium 2.6 L* (3.5-5.1) mmol/L BUN 18 H (7-17) mg/dL Glucose 109 H (74-99) mg/dL Total Protein 6.0 L (6.3-8.2) g/dL Albumin 3.3 L (3.5-5.0) g/dL 07/09/18 07/09/18 07/09/18 Range/Units 10:49 10:49 10:49 WBC 11.8 H (3.8-10.6) k/uL Neutrophils # 8.6 H (1.3-7.7) k/uL PT 39.4 H (9.0-12.0) sec INR 4.1 H (<1.2) Potassium 3.1 L (3.5-5.1) mmol/L BUN (7-17) mg/dL Glucose (74-99) mg/dL Total Protein (6.3-8.2) g/dL Albumin (3.5-5.0) g/dL Microbiology - Last 24 Hours (Table) 07/08/18 15:40 Urine Culture - Preliminary Urine,Voided Diabetes panel 07/08/18 07/09/18 Range/Units 15:00 10:49 Sodium 138 139 (137-145) mmol/L Potassium 2.6 L* 3.1 L (3.5-5.1) mmol/L Chloride 101 105 (98-107) mmol/L Carbon Dioxide 29 29 (22-30) mmol/L BUN 18 H 13 (7-17) mg/dL Creatinine 0.96 0.69 (0.52-1.04) mg/dL Glucose 109 H 87 (74-99) mg/dL Calcium 8.8 8.6 (8.4-10.2) mg/dL AST 27 (14-36) U/L ALT 37 (9-52) U/L Alkaline Phosphatase 65 (38-126) U/L Total Protein 6.0 L (6.3-8.2) g/dL Albumin 3.3 L (3.5-5.0) g/dL Calcium panel 07/08/18 07/09/18 Range/Units 15:00 10:49 Calcium 8.8 8.6 (8.4-10.2) mg/dL Albumin 3.3 L (3.5-5.0) g/dL Pituitary panel 07/08/18 07/09/18 Range/Units 15:00 10:49 Sodium 138 139 (137-145) mmol/L Potassium 2.6 L* 3.1 L (3.5-5.1) mmol/L Chloride 101 105 (98-107) mmol/L Carbon Dioxide 29 29 (22-30) mmol/L BUN 18 H 13 (7-17) mg/dL Creatinine 0.96 0.69 (0.52-1.04) mg/dL Glucose 109 H 87 (74-99) mg/dL Calcium 8.8 8.6 (8.4-10.2) mg/dL Adrenal panel 07/08/18 07/09/18 Range/Units 15:00 10:49 Sodium 138 139 (137-145) mmol/L Potassium 2.6 L* 3.1 L (3.5-5.1) mmol/L Chloride 101 105 (98-107) mmol/L Carbon Dioxide 29 29 (22-30) mmol/L BUN 18 H 13 (7-17) mg/dL Creatinine 0.96 0.69 (0.52-1.04) mg/dL Glucose 109 H 87 (74-99) mg/dL Calcium 8.8 8.6 (8.4-10.2) mg/dL Total Bilirubin 0.4 (0.2-1.3) mg/dL AST 27 (14-36) U/L ALT 37 (9-52) U/L Alkaline Phosphatase 65 (38-126) U/L Total Protein 6.0 L (6.3-8.2) g/dL Albumin 3.3 L (3.5-5.0) g/dL
[2018-07-09] MEDS: ALPRAZolam 0.25 MG TAB PO PRN (15:48)
[2018-07-09] MEDS: NICOTINE 21MG/24HR PATCH TRANSDERM SCH (17:44)
[2018-07-09] MEDS ORDERED: WARFARIN 0.5 MG TAB PO ONE (18:00)
[2018-07-09] MEDS: HYDROcodone/APAP 10-325MG 1 EACH TAB PO PRN (21:02)
[2018-07-09] MEDS: MIRTAZAPINE 45 MG TABLET PO SCH (21:02)
--- NOTE | 2018-07-09 21:11 | PN ---
PROGRESS NOTE DATE OF SERVICE: 07/09/2018 This 48-year-old woman who was admitted with multiple medical problems had fever and is also complaining of abdominal pain. The patient has been seen by Surgery as well as Pulmonary. Surgery has noted possible ileus which is resolved at this time. Pulmonary and Infectious Disease are also following the patient closely. The patient also has interstitial lung disease and biopsy-proven sarcoidosis. The patient also had complicated pseudomonas infection recently. Past medical history reviewed. REVIEW OF SYSTEMS: CARDIOVASCULAR SYSTEM: No angina, palpitations. RESPIRATORY SYSTEM: As mentioned earlier. GI: As mentioned earlier. : No dysuria or retention. NERVOUS SYSTEM: No numbness, weakness. CURRENT MEDICATIONS: Reviewed. They include: 1. Fioricet one q.4 p.r.n. 2. [place] 10 mg q.6 p.r.n. 3. DuoNeb q.i.d. and p.r.n. 4. Xanax 0.25 t.i.d. 5. Lioresal 20 mg q.8 p.r.n. 6. Bumex 4 mg each morning. 7. Cefepime 2 grams IV b.i.d. 8. Colace 100 mg p.o. b.i.d. 9. Prozac 20 mg daily. 10.Dilaudid 0.5 q.4 p.r.n. 11.Lamictal 200 mg p.o. daily. 12.Antivert 25 mg t.i.d. p.r.n. 13.Lopressor 50 mg p.o. b.i.d. 14.Remeron 45 mg at bedtime. 15.MS Contin 30 mg q.6 p.r.n. 16.Habitrol 21 daily. 17.Mycostatin. 18.Zofran. 19.Protonix 40 mg daily. 20.K-Dur 20 mEq p.o. daily. 21.Lyrica 150 mg p.o. b.i.d. 22.Senokot-S two tablets b.i.d. p.r.n. 23.Coumadin p.r.n. PHYSICAL EXAMINATION: Patient is alert, oriented x3. Pulse 73, blood pressure 99/51, respiration 14, temperature 98.3, pulse ox 98% on room air. HEENT: Conjunctivae normal. NECK: No jugular venous distention. CARDIOVASCULAR SYSTEM: S1, S2 muffled. RESPIRATORY SYSTEM: Breath sounds diminished at the bases. Bilateral scattered rhonchi and crackles. ABDOMEN: Soft, non-tender. LEGS: No edema. No swelling. NERVOUS SYSTEM: Higher functions as mentioned earlier. Moves all 4 limbs. No focal motor or sensory deficit. LYMPHATICS: No lymph node palpable in neck, axillae or groin. SKIN: No ulcer, rash, bleeding. JOINTS: No active deforming arthropathy. LABS: WBC 11.8 and INR is 4.1, potassium 3.1. ASSESSMENT: 1. Abdominal pain, vomiting, diarrhea, possibly paralytic ileus. 2. Small-bowel obstruction unlikely. 3. Sarcoidosis, confirmed in 2015 at [facility], as well as interstitial lung disease. 4. Coumadin coagulopathy. 5. Severe hypokalemia. 6. History of recent chronic obstructive pulmonary disease. 7. Chronic obstructive pulmonary disease, acute exacerbation, with recent pseudomonas sepsis and systemic inflammatory response syndrome. 8. History of congestive heart failure. 9. Abdominal pain. Rule out cellulitis. 10.History of deep vein thrombosis. 11.History of pulmonary embolism. 12.Hypertension. 13.Hyperlipidemia. 14.History of myocardial infarction. 15.History of pneumonia. 16.History of hypothyroidism. 17.History of bronchoscopy. 18.History of methicillin-resistant Staphylococcus aeruginosa pneumonia. 19.History of section. 20.History of cholecystectomy. 21.History of anxiety, bipolar depression, panic disorder. 22.Obesity with body mass index of 39.5. RECOMMENDATIONS AND DISCUSSION: I recommend to continue current medications, continue with the monitoring, symptomatic treatment. Continue with the pain medication. Continue with the broad-spectrum IV antibiotics. Will hold the Coumadin. Monitor closely with multiple consultants. Guarded prognosis. Further recommendations to follow. MMODL / IJN: [id number] /
[2018-07-09] MEDS ORDERED: ZINC OXIDE 20% OINT 28.4 GM TUBE TOPICAL PRN (22:31)
--- NOTE | 2018-07-09 22:35 | P.CON ---
Consult Note - . Consult date: 07/09/18 Assessment/Plan:: This is a 48-year-old female known to ID service and she has multiple medical troubles including obesity and sarcoidosis, recent treatment for Pseudomonas and was discharged from the hospital on July 03 to complete 2 week course of cefepime. She states she has been receiving the cefepime as scheduled and has not missed any doses. She denies any trouble with her midline. The patient comes back into [facility] emergency center complaining of feeling tired, fever 101.3. She states her shortness of breath is about her baseline and she gets worse with activity. She is on home O2 at 3 L nasal cannula. She complains of nausea without vomiting. Her last bowel movement was yesterday morning. She denies any dysuria. Patient has been afebrile since admission. White count at 11, INR 3.5, potassium 2.6 and has been replaced, creatinine 0.96. Albumin 3.3. Urinalysis is negative. Influenza testing negative. Patient is currently on a clear liquid diet and tolerating. CT of the abdomen and pelvis with contrast reveals mildly dilated proximal small bowel. No transition point seen. This could relate to partial mechanical obstruction or ileus. CTA of the chest shows mild scarring and subsegmental atelectasis at the lung bases improved compared to last exam. No evidence of pulmonary embolism. Please see the consult note as dictated by METAL BENDING MACHINE OPERATOR Narayan Jen Burr. 48 year old woman with advanced lung disease who presentswith increasing leukocytosis and abdominal pain. She's now been seen by general surgery with no evidence of any acute abdominal process. She continues to have difficulty with rash that she thinks is cefepime be worsening. Her shortness of breath is chronic and progressive and follows with pulmonary critical care.recent bronchoscopy showed evidence of pseudomonas aeruginosa pulmonary secretions and was on cefepime at home. Despite that she. Was having difficulties withongoing leukocytosis and development abdominal pain. She also had a bit of a low potassium. She's not having her potassium supplemented her white count was 19.7 when she left the hospital it's now down to 11. She over has multiple symptoms. We'll alter the antibiotics to ceftazidime determine if this is better tolerated and cefepime. Benadryl as requested Topical cream for her panniculitis of the lower abdomen. I agree with evaluation, assessment and plan as dictated by nurse practitioner Mrs. Jen Burr
[2018-07-09] MEDS: diphenhydrAMINE 50 MG/ML 1 ML VIAL IVP SCH (23:39)
[2018-07-10] MEDS ORDERED: AZTREONAM 2 GM in SODIUM CHLORIDE 0.9% 100 ML IVPB SCH ×2
[2018-07-10] MEDS: POTASSIUM CHLORIDE ER 20 MEQ TAB.ER PO SCH ×10 (01:04→22:41)
[2018-07-10] MEDS: ALPRAZolam 0.25 MG TAB PO PRN ×2 (01:34→13:04)
[2018-07-10] MEDS: HYDROmorphone 0.5 MG/0.5 ML SYRINGE IVP PRN ×6 (02:26→23:42)
[2018-07-10] MEDS: ONDANSETRON ODT 4 MG TAB PO SCH ×4 (05:47→23:42)
[2018-07-10] MEDS: diphenhydrAMINE 50 MG/ML 1 ML VIAL IVP SCH ×4 (05:47→22:41)
[2018-07-10 05:58] LABS: Basophils % (A) 0 %; Eosinophils # (A) 0.2 k/uL (0-0.7); Eosinophils % (A) 2 %; HCT 41.3 % (34.0-46.0); HGB 13.6 gm/dL (11.4-16.0); Lymphocytes # (A) 3.8 k/uL (1.0-4.8); Lymphocytes % (A) 45 %; MCH 30.7 pg (25.0-35.0); MCHC 32.9 g/dL (31.0-37.0); MCV 93.3 fL (80.0-100.0); Mean Platelet Volume 7.5; Monocytes # (A) 0.6 k/uL (0-1.0); Monocytes % (A) 7 %; Neutrophils # (A) 3.6 k/uL (1.3-7.7); Neutrophils % (A) 42 %; Platelet Count 171 k/uL (150-450); RBC 4.42 m/uL (3.80-5.40); RDW 15.9 % (11.5-15.5); WBC 8.4 k/uL (3.8-10.6)
[2018-07-10 06:04] LABS: INR 2.2 (<1.2); Prothrombin Time 21.4 sec (9.0-12.0)
[2018-07-10 06:12] LABS: Anion Gap 6 mmol/L; Blood Urea Nitrogen 12 mg/dL (7-17); Calcium 7.8 mg/dL (8.4-10.2); Carbon Dioxide 29 mmol/L (22-30); Chloride 106 mmol/L (98-107); Glucose 110 mg/dL (74-99); Potassium 2.8 mmol/L (3.5-5.1); Sodium 141 mmol/L (137-145)
[2018-07-10] MEDS: lamoTRIgine 100 MG TAB PO SCH (07:41)
[2018-07-10] MEDS: PANTOPRAZOLE 40 MG/10 ML VIAL IVP SCH (07:41)
[2018-07-10] MEDS: BUMETANIDE 1 MG TAB PO SCH ×2 (07:41→11:49)
[2018-07-10] MEDS: PREGABALIN 75 MG CAP PO SCH ×2 (07:41→19:59)
[2018-07-10] MEDS: NYSTATIN 100,000 UNIT/GM POWD 15 GM TOPICAL SCH ×2 (07:42→20:00)
[2018-07-10] MEDS: METOPROLOL TARTRATE 50 MG TAB PO SCH ×2 (07:42→19:59)
[2018-07-10] MEDS: FLUoxetine HCL 20 MG CAP PO SCH (07:42)
[2018-07-10] MEDS: NICOTINE 21MG/24HR PATCH TRANSDERM SCH (07:42)
[2018-07-10] MEDS: HYDROcodone/APAP 10-325MG 1 EACH TAB PO PRN (09:40)
--- NOTE | 2018-07-10 12:51 | P.PN ---
Subjective Progress Note Date: 07/10/18 Principal diagnosis: Acute exacerbation of chronic obstructive pulmonary disease complicated by pseudomonas aeruginosa This is a very pleasant 48-year-old female patient who follows with Dr. Koch as her primary care physician. She has a history of bipolar disorder, fibromyalgia, coronary artery disease with previous AL, hypertension, hyperlipidemia, chronic pain and chronic narcotic use, chronic obstructive pulmonary disease. Previous PE/DVT and anticoagulated with warfarin. She also has a history of biopsy-proven sarcoidosis. She's had ventilator-dependent respiratory failure and bronchoscopies in the past which have grown MRSA, Enterococcus faecalis and Staphylococcus species. She had undergone bronchoscopy with BAL most recently on 07/02/2018 and was found to have pseudomonas aeruginosa. She has been treated with cefepime 2 g IV every 12 hours via a midline in the outpatient setting. She presented to the emergency room again yesterday with complaints of increasing shortness of breath, loose nonproductive cough. Admission oxygen 96% on room air. She's been afebrile. Hemodynamically stable. White count 11.0. Hemoglobin 14.3. INR 3.5. [place] um 2.6. Creatinine 0.96. Influenza screen was negative. CT angiogram for PE despite her supratherapeutic INR was performed. There is mild scarring and subsegmental atelectasis at the lung bases improved compared to last exam. No pulmonary embolism. There is also a computed tomography scan of the abdomen which revealed mildly dilated proximal small bowel. No transition point seen. This could relate to partial mechanical obstruction or ileus. The patient did have abdominal fullness. However she states she has been having normal bowel movements. She was seen today in consultation on the regular medical floor. She is awake and alert in no acute distress. Still maintaining O2 saturations in the 90s on room air. INR 4.1. Sodium 139. Potassium 3.1. Creatinine 0.69. No abdominal discomfort. She has a loose nonproductive cough. She is continued on cefepime and bronchodilators. The patient is seen today the 2018 in follow-up on the regular medical floor. She is currently awake and alert in no acute distress. Ambulating in her room. She is still having ongoing issues with dyspnea on minimal exertion. Loose nonproductive cough. She is maintaining O2 saturations up to 100% on 3 L/m flow nasal cannula. She's been afebrile. Hemodynamically stable. Blood culture reveals no growth to date. Urine culture no growth. White count 8.4. Hemoglobin 13.6. INR 2.2. Potassium 2.8. Creatinine 0.70. She remains on DuoNeb inhalations, promethazine, IV Solu-Medrol and antibiotics in the form of ceftazidime per infectious disease. Habitrol patch is in place. Objective - Vital Signs Vital signs: Vital Signs Temp 97.5 F L 07/10/18 07:00 Pulse 71 07/10/18 07:00 Resp 19 07/10/18 08:00 BP 95/61 07/10/18 07:00 Pulse Ox 100 07/10/18 07:00 Intake & Output 07/09/18 07/10/18 07/10/18 18:59 06:59 18:59 Intake Total 1100 580 Balance 1100 580 Weight 114.8 kg Intake: Intake, IV Titration 100 100 Amount Cefepime 2 gm In Sodium 100 100 Chloride 0.9% 100 ml @ 200 mls/hr IVPB Q12HR [facility] Rx#:[id number] Oral 1000 480 Other: # Voids 1 - Exam GENERAL EXAM: Alert, active, morbidly obese 48-year-old female patient, comfortable in no apparent distress. On rectal liters per minute per nasal cannula. HEAD: Normocephalic. EYES: Normal reaction of pupils, equal size. NOSE: Clear with pink turbinates. THROAT: No erythema or exudates. NECK: No masses, no JVD. CHEST: No chest wall deformity. LUNGS: Equal air entry with rhonchi, end expiratory wheeze, quite diminished. CVS: S1 and S2 normal with no audible murmur, regular rhythm. ABDOMEN: No hepatosplenomegaly, normal bowel sounds, no guarding or rigidity. SPINE: No scoliosis or deformity SKIN: No rashes CENTRAL NERVOUS SYSTEM: No focal deficits, tone is normal in all 4 extremities. EXTREMITIES: There is trace peripheral edema. No clubbing, no cyanosis. Peripheral pulses are intact. - Labs CBC & Chem 7: 07/10/18 05:45 07/10/18 05:45 Labs: Abnormal Lab Results - Last 24 Hours (Table) 07/10/18 07/10/18 07/10/18 Range/Units 00:20 05:45 05:45 RDW 15.9 H (11.5-15.5) % PT 21.4 H (9.0-12.0) sec INR 2.2 H (<1.2) Potassium 2.8 L (3.5-5.1) mmol/L Glucose (74-99) mg/dL Calcium (8.4-10.2) mg/dL 07/10/18 Range/Units 05:45 RDW (11.5-15.5) % PT (9.0-12.0) sec INR (<1.2) Potassium 2.8 L (3.5-5.1) mmol/L Glucose 110 H (74-99) mg/dL Calcium 7.8 L (8.4-10.2) mg/dL Microbiology - Last 24 Hours (Table) 07/08/18 15:40 Urine Culture - Final Urine,Voided 07/08/18 14:55 Blood Culture - Preliminary Blood No Growth after 24 hours Assessment and Plan Assessment: Impression: #1 Acute exacerbation of chronic obstructive pulmonary disease complicated by pseudomonas aeruginosa and previous bronchoscopy 07/02/2018. On IV cefepime in the outpatient setting. Computed tomography scan of the chest showing improvement. #2 Interstitial lung disease, biopsy-proven sarcoidosis. #3 Chronic obstructive pulmonary disease, currently inactive and stable. #4 Chronic hypoxic respiratory failure secondary to above, currently inactive and stable. #5 Sarcoidosis confirmed by lung biopsy at [facility] 2014. #6 Previous management liter dependent respiratory failure and previous pneumonias with bronchoscopies positive for MRSA, Enterococcus faecalis and staphylococcal species. #7 history of PE/DVT, anticoagulated with warfarin, currently subtherapeutic. #8 History of viral meningitis.. #9 Coronary artery disease with previous AL. #10 Hypertension. #11 Hyperlipidemia. #12 Bipolar disorder. #13 Chronic pain syndrome currently on morphine in the outpatient setting. #14 Morbid obesity. Plan: The patient was seen and evaluated by Dr. Hicks. Continue with IV ceftazidime, IV Solu-Medrol and bronchodilators. ID is on the case as well. We will increase her activity as tolerated. We'll continue to follow and make further recommendations based on her clinical status. I, the cosigning physician, performed a history & physical examination of the patient. Lungs sounds with bilateral scattered rhonchi, diminished. Maintaining good O2 saturations in the 90s on 3 liters/n.c. I discussed the assessment and plan of care with my nurse practitioner, Nicki Roper. I attest to the above note as dictated by her.
--- NOTE | 2018-07-10 16:26 | P.PN ---
Subjective 8-year-old female with history of COPD and a pseudomonal bronchitis, patient is on IV cefepime as an outpatient came in here for partial small bowel obstruction or ileus secondary to opiate. Patient is on oral morphine as an outpatient. Patient here is on opiates but Small bowel obstruction resolved patient is complaining of for pain in the right lower chest area. Patient does have history of opiate seeking behavior and I believe patient is malingering for opiates. I counseled her regarding this no more opiates will be provided patient wanted to switch care from Dr. Church to me as he declined to give her more pain medications. Patient is otherwise clinically doing well except for mildly decreased air entry into bilateral lung is does have good bowel sounds. Patient probably can be discharged tomorrow. Constitutional: Denied any fatigue denied any fever. Cardio vascular: denied any chest pain, palpitations Gastrointestinal denied any nausea vomiting Pulmonary: Denied any shortness of breath cough pain in the right upper quadrant and lower chest area. Neurologic denied any new focal deficits All inpatient medications were reviewed and appropriate changes in these medications as dictated in the interval history and assessment and plan. Objective - Vital Signs Vital signs: Vital Signs Temp 98.3 F 07/10/18 15:00 Pulse 80 07/10/18 15:00 Resp 18 07/10/18 15:00 BP 121/80 07/10/18 15:00 Pulse Ox 93 L 07/10/18 15:00 Intake & Output 07/09/18 07/10/18 07/10/18 18:59 06:59 18:59 Intake Total 1100 580 480 Balance 1100 580 480 Weight 114.8 kg Intake: Intake, IV Titration 100 100 Amount Cefepime 2 gm In Sodium 100 100 Chloride 0.9% 100 ml @ 200 mls/hr IVPB Q12HR [facility] Rx#:[id number] Oral 1000 480 480 Other: # Voids 1 3 - Exam PHYSICAL EXAMINATION: GENERAL: The patient is alert and oriented x3, not in any acute distress. Obese with felix face appears to have side effects from chronic steroid use HEENT: Pupils are round and equally reacting to light. EOMI. No scleral icterus. No conjunctival pallor. Normocephalic, atraumatic. No pharyngeal erythema. No thyromegaly. CARDIOVASCULAR: S1 and S2 present. No murmurs, rubs, or gallops. PULMONARY: Mildly decreased air entry into bilateral lung diana ABDOMEN: Soft, mild subjective tenderness in the right upper quadrant, nondistended, normoactive bowel sounds. No palpable organomegaly. MUSCULOSKELETAL: No joint swelling or deformity. EXTREMITIES: No cyanosis, clubbing, or pedal edema. NEUROLOGICAL: Gross neurological examination did not reveal any focal deficits. SKIN: No rashes. - Labs CBC & Chem 7: 07/10/18 05:45 07/10/18 05:45 Labs: Abnormal Lab Results - Last 24 Hours (Table) 07/10/18 07/10/18 07/10/18 Range/Units 00:20 05:45 05:45 RDW 15.9 H (11.5-15.5) % PT 21.4 H (9.0-12.0) sec INR 2.2 H (<1.2) Potassium 2.8 L (3.5-5.1) mmol/L Glucose (74-99) mg/dL Calcium (8.4-10.2) mg/dL 07/10/18 Range/Units 05:45 RDW (11.5-15.5) % PT (9.0-12.0) sec INR (<1.2) Potassium 2.8 L (3.5-5.1) mmol/L Glucose 110 H (74-99) mg/dL Calcium 7.8 L (8.4-10.2) mg/dL Microbiology - Last 24 Hours (Table) 07/08/18 15:40 Urine Culture - Final Urine,Voided 07/08/18 14:55 Blood Culture - Preliminary Blood No Growth after 24 hours Assessment and Plan Plan: -Partial small bowel obstruction or ileus: Improved now patient probably can be discharged tomorrow -COPD with the pseudomonal bronchitis for which patient is on IV ceftazidime which patient will continue here and will continue and complete the course of therapy as an outpatient. -Interstitial lung disease and sarcoidosis -COPD with minimal exacerbation we'll cut down the steroids to 40 IV twice a day -Chronic hypercapnic respiratory failure secondary to COPD for which patient is on 4 L of oxygen patient is not requiring Morrison to see her will cut down and watch her monitor her -History of DVT/ PE: INR is therapeutic at this time will cut down dose of Coumadin -Carotid artery disease -Hypertension -hyperlipidemia -Bipolar disorder -Chronic pain syndrome and narcotic seeking behaviors -Obesity For above-mentioned chronic medical problems patient will be continued on appropriate home medications. Patient probably can be discharged tomorrow
[2018-07-10] MEDS ORDERED: WARFARIN 7.5 MG TAB PO ONE (18:00)
[2018-07-10] MEDS ORDERED: WARFARIN 5 MG TAB PO ONE (18:00)
[2018-07-10] MEDS ORDERED: methylPREDNISolone SOD SUCCI 125 MG/2 ML VIAL IV SCH (18:00)
[2018-07-10] MEDS: methylPREDNISolone SOD SUCCI 40 MG/ML 1 ML VIAL IV SCH (19:59)
[2018-07-10] MEDS: MIRTAZAPINE 45 MG TABLET PO SCH (20:00)
[2018-07-10] MEDS: IPRATROPIUM-ALBUTEROL 3 ML NEB INHALATION PRN (21:44)
[2018-07-10] MEDS: BUDESONIDE 1 MG/2 ML NEBU INHALATION SCH (21:45)
[2018-07-10] MEDS: FORMOTEROL FUMARATE 20 MCG/2 ML NEBU INHALATION SCH (21:45)
[2018-07-11] MEDS ORDERED: POTASSIUM CHLORIDE ER 20 MEQ TAB.ER PO SCH (01:00)
[2018-07-11] MEDS: ONDANSETRON ODT 4 MG TAB PO SCH ×2 (05:19→13:02)
[2018-07-11] MEDS: diphenhydrAMINE 50 MG/ML 1 ML VIAL IVP SCH ×2 (05:20→13:03)
[2018-07-11] MEDS: HYDROmorphone 0.5 MG/0.5 ML SYRINGE IVP PRN ×3 (05:20→14:28)
[2018-07-11] MEDS ORDERED: PANTOPRAZOLE 40 MG TABLET PO SCH (07:30)
[2018-07-11 07:36] VITALS: TEMP 98.2
[2018-07-11] MEDS: BUDESONIDE 1 MG/2 ML NEBU INHALATION SCH (09:29)
[2018-07-11] MEDS: FORMOTEROL FUMARATE 20 MCG/2 ML NEBU INHALATION SCH (09:29)
[2018-07-11] MEDS: IPRATROPIUM-ALBUTEROL 3 ML NEB INHALATION PRN (09:29)
[2018-07-11] MEDS: PREGABALIN 75 MG CAP PO SCH (11:01)
[2018-07-11] MEDS: NICOTINE 21MG/24HR PATCH TRANSDERM SCH (11:02)
[2018-07-11] MEDS: FLUoxetine HCL 20 MG CAP PO SCH (11:03)
[2018-07-11] MEDS: lamoTRIgine 100 MG TAB PO SCH (11:03)
[2018-07-11] MEDS: METOPROLOL TARTRATE 50 MG TAB PO SCH (11:03)
[2018-07-11] MEDS: methylPREDNISolone SOD SUCCI 40 MG/ML 1 ML VIAL IV SCH (11:03)
[2018-07-11] MEDS: POTASSIUM CHLORIDE ER 20 MEQ TAB.ER PO SCH (11:04)
[2018-07-11] MEDS: NYSTATIN 100,000 UNIT/GM POWD 15 GM TOPICAL SCH (11:04)
[2018-07-11] MEDS: BUMETANIDE 1 MG TAB PO SCH ×2 (11:10→13:03)
[2018-07-11 12:09] LABS: Anisocytosis Slight; Basophils % (A) 0 %; Eosinophils # (A) 0.2 k/uL (0-0.7); Eosinophils % (A) 2 %; HCT 41.9 % (34.0-46.0); HGB 13.9 gm/dL (11.4-16.0); Lymphocytes # (A) 3.5 k/uL (1.0-4.8); Lymphocytes % (A) 37 %; MCH 31.4 pg (25.0-35.0); MCHC 33.3 g/dL (31.0-37.0); MCV 94.4 fL (80.0-100.0); Mean Platelet Volume 7.5; Monocytes # (A) 0.7 k/uL (0-1.0); Monocytes % (A) 8 %; Neutrophils # (A) 4.6 k/uL (1.3-7.7); Neutrophils % (A) 50 %; Platelet Count 167 k/uL (150-450); RBC 4.43 m/uL (3.80-5.40); RDW 16.2 % (11.5-15.5); WBC 9.2 k/uL (3.8-10.6)
[2018-07-11 12:17] LABS: INR 1.2 (<1.2); Prothrombin Time 12.8 sec (9.0-12.0)
[2018-07-11 12:25] LABS: Anion Gap 5 mmol/L; Blood Urea Nitrogen 16 mg/dL (7-17); Carbon Dioxide 28 mmol/L (22-30); Chloride 109 mmol/L (98-107); Glucose 95 mg/dL (74-99); Potassium 3.7 mmol/L (3.5-5.1); Sodium 142 mmol/L (137-145)
--- NOTE | 2018-07-11 14:48 | P.DS ---
Providers Date of admission: 07/08/18 17:57 Attending physician: Gonsalo Church Consults: 07/08/18 18:18 Consult Physician Stat Consulting Provider: Kobi Lott Consult Reason/Comments: SBO, hypokalemia, hx of pseudomonas pneumonia currently on iv abx Do you want consulting provider notified?: Yes 07/08/18 20:55 Consult Physician Routine Consulting Provider: Gayle Hicks Consult Reason/Comments: copd/br asthma Do you want consulting provider notified?: Yes Primary care physician: [facility] Course: 48-year-old female with history of COPD and a pseudomonal bronchitis, patient is on IV cefepime as an outpatient came in here for partial small bowel obstruction or ileus secondary to opiate. Patient is on oral morphine as an outpatient. Patient here is on opiates but Small bowel obstruction resolved patient is complaining of for pain in the right lower chest area. Patient does have history of opiate seeking behavior and I believe patient is malingering for opiates. I counseled her regarding this no more opiates will be provided patient wanted to switch care from Dr. Church to me as he declined to give her more pain medications. Patient is otherwise clinically doing well except for mildly decreased air entry into bilateral lung is does have good bowel sounds. Patient probably can be discharged tomorrow. 07/11/2018 Patient overall clinically doing well patient was switched to cefazolin name although patient has decreased air movement in the lung diana patient AND requirements have come down patient will be discharged today cleared by pulmonology and infectious disease. PHYSICAL EXAMINATION: GENERAL: The patient is alert and oriented x3, not in any acute distress. Obese with felix face appears to have side effects from chronic steroid use HEENT: Pupils are round and equally reacting to light. EOMI. No scleral icterus. No conjunctival pallor. Normocephalic, atraumatic. No pharyngeal erythema. No thyromegaly. CARDIOVASCULAR: S1 and S2 present. No murmurs, rubs, or gallops. PULMONARY: Decreased air entry into bilateral lung diana ABDOMEN: Soft, mild subjective tenderness in the right upper quadrant, nondistended, normoactive bowel sounds. No palpable organomegaly. MUSCULOSKELETAL: No joint swelling or deformity. EXTREMITIES: No cyanosis, clubbing, or pedal edema. NEUROLOGICAL: Gross neurological examination did not reveal any focal deficits. SKIN: No rashes. Assessment and Plan Plan: -Partial small bowel obstruction or ileus: Improved now -COPD with the pseudomonal bronchitis for which patient is on IV ceftazidime which patient will continue here and will continue and complete the course of therapy as an outpatient. -Interstitial lung disease and sarcoidosis -COPD with minimal exacerbation -Chronic hypercapnic respiratory failure secondary to COPD for which patient is on 4 L of oxygen and patient is requiring only 3 L now will be switched to 3 L -History of DVT/ PE: INR is therapeutic at this time will cut down dose of Coumadin -Carotid artery disease -Hypertension -hyperlipidemia -Bipolar disorder -Chronic pain syndrome and narcotic seeking behavior -Obesity Patient Condition at Discharge: Serious Plan - Discharge Summary Discharge Rx Participant: No New Discharge Prescriptions: New cefTAZidime [Fortaz] 2 gm IVP Q8HR #42 vial predniSONE 10 mg PO DAILY #30 tab Continue FLUoxetine HCL [PROzac] 20 mg PO DAILY #30 capsule Metoprolol Tartrate [Lopressor] 50 mg PO BID #60 tab lamoTRIgine [LaMICtal] 200 mg PO DAILY Bumetanide 4 mg PO QAM [place]alb/APAP/Caff 50-325-40Mg [Fioricet 50-325-40] 1 tab PO Q4H PRN PRN Reason: Migraine Headache Mirtazapine [Remeron] 45 mg PO HS ALPRAZolam [Xanax] 0.5 mg PO TID PRN PRN Reason: Anxiety Pregabalin [Lyrica] 150 mg PO BID Bumetanide [BUMEX] 2 mg PO DAILY@1200 Baclofen [Lioresal] 20 mg PO Q8H PRN PRN Reason: Muscle Pain Morphine Sulfate ER [Ms Contin] 30 mg PO Q6H PRN PRN Reason: Pain Nystatin 100,000 Unit/gm Powd [Mycostatin Powder] 1 applic TOPICAL BID Promethazine/Dextromethorphan [Promethazine-Dm Solution] 5 ml PO Q6H PRN PRN Reason: Cough Docusate [Colace] 100 mg PO BID PRN #60 cap PRN Reason: Constipation Potassium Chloride ER [K-Dur 20] 20 meq PO DAILY #30 tab.er.prt Sennosides-Docusate Sodium [Senokot-S] 2 tab PO BID PRN PRN Reason: Constipation Hydrocodone/Acetaminophen [[place] 10-325] 1 tab PO Q6H PRN 3 Days #12 tab PRN Reason: Pain Warfarin [Coumadin] 10 mg PO HS Meclizine HCl 25 mg PO TID PRN PRN Reason: Vertigo Ipratropium-Albuterol Nebulize [Duoneb 0.5 mg-3 mg/3 ml Soln] 3 ml INHALATION RT-QID PRN PRN Reason: Shortness Of Breath Ondansetron [Zofran ODT] 4 mg PO Q6H Discontinued Cefepime HCl [Maxipime] 2 gm IV Q12H #28 vial Warfarin Sodium [Coumadin] 2 mg PO HS Discharge Medication List FLUoxetine HCL [PROzac] 20 mg PO DAILY #30 capsule 08/20/15 [Rx] Metoprolol Tartrate [Lopressor] 50 mg PO BID #60 tab 08/20/15 [Rx] lamoTRIgine [LaMICtal] 200 mg PO DAILY 03/22/16 [History] Bumetanide 4 mg PO QAM 10/18/16 [History] Butalb/APAP/Caff 50-325-40Mg [Fioricet 50-325-40] 1 tab PO Q4H PRN 10/18/16 [History] Mirtazapine [Remeron] 45 mg PO HS 04/10/17 [History] ALPRAZolam [Xanax] 0.5 mg PO TID PRN 06/06/17 [History] Bumetanide [BUMEX] 2 mg PO DAILY@1200 09/16/17 [History] Pregabalin [Lyrica] 150 mg PO BID 09/16/17 [History] Baclofen [Lioresal] 20 mg PO Q8H PRN 10/09/17 [History] Morphine Sulfate ER [Ms Contin] 30 mg PO Q6H PRN 11/03/17 [History] Nystatin 100,000 Unit/gm Powd [Mycostatin Powder] 1 applic TOPICAL BID 11/04/17 [History] Promethazine/Dextromethorphan [Promethazine-Dm Solution] 5 ml PO Q6H PRN 11/04/17 [History] Docusate [Colace] 100 mg PO BID PRN #60 cap 11/10/17 [Rx] Potassium Chloride ER [K-Dur 20] 20 meq PO DAILY #30 tab.er.prt 11/10/17 [Rx] Sennosides-Docusate Sodium [Senokot-S] 2 tab PO BID PRN 12/07/17 [History] Hydrocodone/Acetaminophen [[place] 10-325] 1 tab PO Q6H PRN 3 Days #12 tab 12/09/17 [Rx] Warfarin [Coumadin] 10 mg PO HS 01/20/18 [History] Ipratropium-Albuterol Nebulize [Duoneb 0.5 mg-3 mg/3 ml Soln] 3 ml INHALATION RT-QID PRN 05/22/18 [History] Meclizine HCl 25 mg PO TID PRN 05/22/18 [History] Ondansetron [Zofran ODT] 4 mg PO Q6H 06/24/18 [History] cefTAZidime [Fortaz] 2 gm IVP Q8HR #42 vial 07/11/18 [Rx] predniSONE 10 mg PO DAILY #30 tab 07/11/18 [Rx] Follow up Appointment(s)/Referral(s): Liz Koch MD [Primary Care Provider] - 1-2 days [facility] Visiting Nurse, [NON-STAFF] - As Needed Patient Instructions/Handouts: How to Stop Smoking (DC), Cigarette Smoking and Your Health (GEN)
[2018-07-11 14:50] VITALS: BP 124/85; PULSE 79; RESP 17
--- NOTE | 2018-07-11 16:01 | P.PN ---
Subjective Progress Note Date: 07/11/18 This is a very pleasant 48-year-old female patient who follows with Dr. Koch as her primary care physician. She has a history of bipolar disorder, fibromyalgia, coronary artery disease with previous DC, hypertension, hyperlipidemia, chronic pain and chronic narcotic use, chronic obstructive pulmonary disease. Previous PE/DVT and anticoagulated with warfarin. She also has a history of biopsy-proven sarcoidosis. She's had ventilator-dependent respiratory failure and bronchoscopies in the past which have grown MRSA, Enterococcus faecalis and Staphylococcus species. She had undergone bronchos copy with BAL most recently on 07/02/2018 and was found to have pseudomonas aeruginosa. She has been treated with cefepime 2 g IV every 12 hours via a midline in the outpatient setting. She presented to the emergency room again yesterday with complaints of increasing shortness of breath, loose nonproductive cough. Admission oxygen 96% on room air. She's been afebrile. Hemodynamically stable. White count 11.0. Hemoglobin 14.3. INR 3.5. Potassium 2.6. Creatinine 0.96. Influenza screen was negative. CT angiogram for PE despite her supratherapeutic INR was performed. There is mild scarring and subsegmental atelectasis at the lung bases improved compared to last exam. No pulmonary e mbolism. There is also a computed tomography scan of the abdomen which revealed mildly dilated proximal small bowel. No transition point seen. This could relate to partial mechanical obstruction or ileus. The patient did have abdominal fullness. However she states she has been having normal bowel movements. She was seen today in consultation on the regular medical floor. She is awake and alert in no acute distress. Still maintaining O2 saturations in the 90s on room air. INR 4.1. Sodium 139. Potassium 3.1. Creatinine 0.69. No abdominal discomfort. She has a loose nonproductive cough. She is continued on cefepime and bronchodilators. The patient is seen today the 2018 in follow-up on the regular medical floor. She is currently awake and alert in no acute distress. Ambulating in her room. She is still having ongoing issues with dyspnea on minimal exertion. Loose nonproductive cough. She is maintaining O2 saturations up to 100% on 3 L/m flow nasal cannula. She's been afebrile. Hemodynamically stable. Blood culture reveals no growth to date. Urine culture no growth. White count 8.4. Hemoglobin 13.6. INR 2.2. Potassium 2.8. Creatinine 0.70. She remains on DuoNeb inhalations, promethazine, IV Solu-Medrol and antibiotics in the form of ceftazidime per infectious disease. Habitrol patch is in place. On 07/12/1999 milligrams seeing this patient for a follow-up. Doing better and the patient is less bronchospastic and wheezy for now. He has a PICC line in the left upper extremity and the patient is receiving IV antibiotics on outpatient basis and the patient has been receiving IV Fortaz at home. Less short of breath. No pleurisy. No hemoptysis. Smoking cessation counseling was done and the plan is to discharge this patient home today with a prednisone burst taper, and IV antibiotics in addition to routine bronchodilators which included DuoNeb nebulized treatments around the clock. She is agreeable to that plan. She is also requesting a nicotine patch. Objective - Vital Signs Vital signs: Vital Signs Temp 98.2 F 07/11/18 07:00 Pulse 79 07/11/18 14:50 Resp 17 07/11/18 14:50 BP 124/85 07/11/18 14:50 Pulse Ox 91 L 07/11/18 14:50 Intake & Output 07/10/18 07/11/18 07/11/18 18:59 06:59 18:59 Intake Total 990 880 120 Balance 990 880 120 Weight 115.3 kg Intake: Intake, IV Titration 100 Amount cefTAZidime 2 gm In 100 Sodium Chloride 0.9% 100 ml @ 100 mls/hr IVPB Q8HR [facility] Rx#:[id number] Oral 990 780 120 Other: # Voids 3 2 3 - Exam GENERAL EXAM: Alert, active, morbidly obese , comfortable. Nonacute distress. HEAD: Normocephalic. EYES: Normal reaction of pupils, equal size. NOSE: Clear with pink turbinates. THROAT: No erythema or exudates. NECK: No masses, no JVD. CHEST: No chest wall deformity. LUNGS: Equal air entry with rhonchi, end expiratory wheeze, quite diminished. CVS: S1 and S2 normal with no audible murmur, regular rhythm. ABDOMEN: No hepatosplenomegaly, normal bowel sounds, no guarding or rigidity. SPINE: No scoliosis or deformity SKIN: No rashes CENTRAL NERVOUS SYSTEM: No focal deficits, tone is normal in all 4 extremities. EXTREMITIES: There is trace peripheral edema. No clubbing, no cyanosis. Peripheral pulses are intact. - Labs CBC & Chem 7: 07/11/18 11:57 07/11/18 11:57 Labs: Abnormal Lab Results - Last 24 Hours (Table) 07/10/18 07/11/18 07/11/18 Range/Units 19:36 11:57 11:57 RDW 16.2 H (11.5-15.5) % PT 12.8 H (9.0-12.0) sec INR 1.2 H (<1.2) Potassium 2.9 L (3.5-5.1) mmol/L Chloride (98-107) mmol/L 07/11/18 Range/Units 11:57 RDW (11.5-15.5) % PT (9.0-12.0) sec INR (<1.2) Potassium (3.5-5.1) mmol/L Chloride 109 H (98-107) mmol/L Microbiology - Last 24 Hours (Table) 07/08/18 14:55 Blood Culture - Preliminary Blood No Growth after 48 hours Assessment and Plan Plan: #1 Acute exacerbation of chronic obstructive pulmonary disease complicated by pseudomonas aeruginosa and previous bronchoscopy 07/02/2018. On IV cefepime in the outpatient setting. #2 Interstitial lung disease, biopsy-proven sarcoidosis. Most recent CAT scan of the chest does not show any evidence of ILD. #3 Chronic obstructive pulmonary disease, currently inactive and stable. #4 Chronic hypoxic respiratory failure secondary to above, currently inactive and stable. #5 Sarcoidosis confirmed by lung biopsy at [facility] 2014. #6 Previous management liter dependent respiratory failure and previous pneumonias with bronchoscopies positive for MRSA, Enterococcus faecalis and staphylococcal species. #7 history of PE/DVT, anticoagulated with warfarin, currently subtherapeutic. #8 History of viral meningitis.. #9 Coronary artery disease with previous DC. #10 Hypertension. #11 Hyperlipidemia. #12 Bipolar disorder. #13 Chronic pain syndrome currently on morphine in the outpatient setting. #14 Morbid obesity. Plan We'll discharge this patient home on a prednisone burst taper, nicotine patch, IV Fortaz. Smoking cessation counseling was done. Continue DuoNeb the right since [id number]. We will follow up on outpatient basis.
[2018-07-11] MEDS ORDERED: WARFARIN 10 MG TAB PO ONE (18:00)
--- NOTE | 2018-07-12 00:29 | P.PN ---
Subjective Progress Note Date: 07/11/18 This is a 48-year-old female known to ID service and she has multiple medical troubles including obesity and sarcoidosis, recent treatment for Pseudomonas and was discharged from the hospital on July 03 to complete 2 week course of cefepime. She states she has been receiving the cefepime as scheduled and has not missed any doses. She denies any trouble with her midline. The patient comes back into [facility] emergency center complaining of feeling tired, fever 101.3. She states her shortness of breath is about her baseline and she gets worse with activity. She is on home O2 at 3 L nasal cannula. She complains of nausea without vomiting. Her last bowel movement was yesterday morning. She denies any dysuria. Patient has been afebrile since admission. White count at 11, INR 3.5, potassium 2.6 and has been replaced, creatinine 0.96. Albumin 3.3. Urinalysis is negative. Influenza testing negative. Patient is currently on a clear liquid diet and tolerating. CT of the abdomen and pelvis with contrast reveals mildly dilated proximal small bowel. No transition point seen. This could relate to partial mechanical obstruction or ileus. CTA of the chest shows mild scarring and subsegmental atelectasis at the lung bases improved compared to last exam. No evidence of pulmonary embolism. 07/11/2018 patient has had improvement. With change of antibiotic therapy to ceftazidime the significant rashes improved. Primary status is improving. Feels better likely to discharge home today Objective - Vital Signs Vital signs: Vital Signs Temp 98.2 F 07/11/18 07:00 Pulse 79 07/11/18 14:50 Resp 17 07/11/18 14:50 BP 124/85 07/11/18 14:50 Pulse Ox 91 L 07/11/18 14:50 Intake & Output 07/11/18 07/11/18 07/12/18 06:59 18:59 06:59 Intake Total 880 120 Balance 880 120 Weight 115.3 kg Intake: Intake, IV Titration 100 Amount cefTAZidime 2 gm In 100 Sodium Chloride 0.9% 100 ml @ 100 mls/hr IVPB Q8HR [facility] Rx#:[id number] Oral 780 120 Other: # Voids 2 3 - Exam This is a 48-year-old obese female. Patient is sitting on the edge of the bed and appears to be mostly comfortable. No respiratory distress noted. HEENT: Anicteric conjunctiva are pink and moist nasal mucosa grossly intact without significant lesions, there is no thrush. Oral pharynx without edema or erythema. Neck: The neck is supple without significant lymphadenopathy or thyromegaly. Lungs: Symmetrical air entry is noted, no significant wheezes or rhonchi. Poor inspiratory effort. Heart: Regular rate and rhythm with an audible S1-S2, no S3 no S4. There is no significant murmur click or rub, PMI was nondisplaced. Abdomen: Obese, Positive bowel sounds soft and nontender without palpable masses or organomegaly. There was no guarding or rebound. Extremities: The upper extremities have excellent pulses they are symmetric, no significant petechiae or telangiectasia. No splinter hemorrhages were noted. Midline is noted to the left upper arm without tenderness, erythema, drainage. No pedal edema The peripheral pulses were 2+ and symmetric. Neuro: Awake alert oriented to person place and time. The zinc and splint applied to the lower abdominal pannus is help the irritation and can be continued at home - Labs CBC & Chem 7: 07/11/18 11:57 07/11/18 11:57 Labs: Abnormal Lab Results - Last 24 Hours (Table) 07/11/18 07/11/18 07/11/18 Range/Units 11:57 11:57 11:57 RDW 16.2 H (11.5-15.5) % PT 12.8 H (9.0-12.0) sec INR 1.2 H (<1.2) Chloride 109 H (98-107) mmol/L Microbiology - Last 24 Hours (Table) 07/08/18 14:55 Blood Culture - Preliminary Blood No Growth after 72 hours Laboratory Results WBC 9.2 k/uL (3.8-10.6) 07/11/18 11:57 RBC 4.43 m/uL (3.80-5.40) 07/11/18 11:57 Hgb 13.9 gm/dL (11.4-16.0) 07/11/18 11:57 Hct 41.9 % (34.0-46.0) 07/11/18 11:57 MCV 94.4 fL (80.0-100.0) 07/11/18 11:57 MCH 31.4 pg (25.0-35.0) 07/11/18 11:57 MCHC 33.3 g/dL (31.0-37.0) 07/11/18 11:57 RDW 16.2 % (11.5-15.5) H 07/11/18 11:57 Plt Count 167 k/uL (150-450) 07/11/18 11:57 Neutrophils % 50 % 07/11/18 11:57 Lymphocytes % 37 % 07/11/18 11:57 Monocytes % 8 % 07/11/18 11:57 Eosinophils % 2 % 07/11/18 11:57 Basophils % 0 % 07/11/18 11:57 Neutrophils # 4.6 k/uL (1.3-7.7) 07/11/18 11:57 Lymphocytes # 3.5 k/uL (1.0-4.8) 07/11/18 11:57 Monocytes # 0.7 k/uL (0-1.0) 07/11/18 11:57 Eosinophils # 0.2 k/uL (0-0.7) 07/11/18 11:57 Basophils # 0.0 k/uL (0-0.2) 07/11/18 11:57 Anisocytosis Slight 07/11/18 11:57 PT 12.8 sec (9.0-12.0) H 07/11/18 11:57 INR 1.2 (<1.2) H 07/11/18 11:57 APTT 30.0 sec (22.0-30.0) 07/08/18 15:00 Sodium 142 mmol/L (137-145) 07/11/18 11:57 Potassium 3.7 mmol/L (3.5-5.1) 07/11/18 11:57 Chloride 109 mmol/L (98-107) H 07/11/18 11:57 Carbon Dioxide 28 mmol/L (22-30) 07/11/18 11:57 Anion Gap 5 mmol/L 07/11/18 11:57 BUN 16 mg/dL (7-17) 07/11/18 11:57 Creatinine 0.71 mg/dL (0.52-1.04) 07/11/18 11:57 Est GFR (CKD-EPI)AfAm >90 (>60 ml/min/1.73 sqM) 07/11/18 11:57 Est GFR (CKD-EPI)NonAf >90 (>60 ml/min/1.73 sqM) 07/11/18 11:57 Glucose 95 mg/dL (74-99) 07/11/18 11:57 Plasma Lactic Acid Chuck 1.1 mmol/L (0.7-2.0) 07/08/18 15:00 Calcium 9.0 mg/dL (8.4-10.2) 07/11/18 11:57 Magnesium 1.9 mg/dL (1.6-2.3) 07/08/18 15:00 Total Bilirubin 0.4 mg/dL (0.2-1.3) 07/08/18 15:00 AST 27 U/L (14-36) 07/08/18 15:00 ALT 37 U/L (9-52) 07/08/18 15:00 Alkaline Phosphatase 65 U/L (38-126) 07/08/18 15:00 Troponin I <0.012 ng/mL (0.000-0.034) 07/08/18 15:00 Total Protein 6.0 g/dL (6.3-8.2) L 07/08/18 15:00 Albumin 3.3 g/dL (3.5-5.0) L 07/08/18 15:00 Urine Color Colorless 07/08/18 15:40 Urine Appearance Clear (Clear) 07/08/18 15:40 Urine pH 6.5 (5.0-8.0) 07/08/18 15:40 Ur Specific [place] 1.006 (1.001-1.035) 07/08/18 15:40 Urine Protein Negative (Negative) 07/08/18 15:40 Urine Glucose (UA) Negative (Negative) 07/08/18 15:40 Urine Ketones Negative (Negative) 07/08/18 15:40 Urine Blood Negative (Negative) 07/08/18 15:40 Urine Nitrite Negative (Negative) 07/08/18 15:40 Urine Bilirubin Negative (Negative) 07/08/18 15:40 Urine Urobilinogen <2.0 mg/dL (<2.0) 07/08/18 15:40 Ur Leukocyte Esterase Negative (Negative) 07/08/18 15:40 Influenza Type A RNA Not Detected (Not Detectd) 07/08/18 15:00 Influenza Type B (PCR) Not Detected (Not Detectd) 07/08/18 15:00 Microbiology 07/08/18 14:55 Blood Blood Culture - Preliminary No Growth after 72 hours 07/08/18 15:40 Urine,Voided Urine Culture - Final Assessment and Plan (1) Pneumonia due to Pseudomonas aeruginosa Narrative/Plan: 48 year old woman with advanced lung disease who presentswith increasing leukocytosis and abdominal pain. She's now been seen by general surgery with no evidence of any acute abdominal process. She continues to have difficulty with rash that she thinks is cefepime be worsening. Her shortness of breath is chronic and progressive and follows with pulmonary critical care.recent bronchoscopy showed evidence of pseudomonas aeruginosa pulmonary secretions and was on cefepime at home. Despite that she. Was having difficulties withongoing leukocytosis and development abdominal pain. She also had a bit of a low potassium. She's not having her potassium supplemented her white count was 19.7 when she left the hospital it's now down to 11. She over has multiple symptoms. We'll alter the antibiotics to ceftazidime determine if this is better tolerated and cefepime. Benadryl as requested zinc oxide to the lower abdominal pannus for comfort 07/11/2018 the patient is had significant improvement. Leukocytosis improved shortness of breath is better. The rash is generally resolved. She is quite pleased that she is improved. She will discharge home today to complete her course of antibiotic therapy with ceftazidime 2 g IV piggyback every 8 hours to complete the prior course of therapy. Orders are sent to home care. She'll follow in the office at the end of her therapy. Status: Acute Code(s): J15.1 - PNEUMONIA DUE TO PSEUDOMONAS SNOMED Code(s): 54701218
== END 2018-07-11 15:05 | disposition home health service (06) | DRG 388 ==
LOC: EC 13:52 → 4SSUR 17:57
PROVIDERS: ADMIT Hospitalist; ATTEND Hospitalist
DX: K56.600 Partial intestinal obstruction, unspecified as to cause (principal); J15.1 Pneumonia due to Pseudomonas; F31.30 Bipolar disorder, current episode depressed, mild or moderate severity, unspecified; J44.0 Chronic obstructive pulmonary disease with (acute) lower respiratory infection; J44.1 Chronic obstructive pulmonary disease with (acute) exacerbation; J96.11 Chronic respiratory failure with hypoxia; J96.12 Chronic respiratory failure with hypercapnia; J98.11 Atelectasis; K56.7 Ileus, unspecified; I11.0 Hypertensive heart disease with heart failure; I50.9 Heart failure, unspecified; J84.10 Pulmonary fibrosis, unspecified; E66.01 Morbid (severe) obesity due to excess calories; D86.9 Sarcoidosis, unspecified; E03.9 Hypothyroidism, unspecified; E78.5 Hyperlipidemia, unspecified; E87.6 Hypokalemia; F17.200 Nicotine dependence, unspecified, uncomplicated; F41.0 Panic disorder [episodic paroxysmal anxiety]; G89.4 Chronic pain syndrome; I25.10 Atherosclerotic heart disease of native coronary artery without angina pectoris; I25.2 Old myocardial infarction; M79.3 Panniculitis, unspecified; M79.7 Fibromyalgia; R79.1 Abnormal coagulation profile; Z68.39 Body mass index [BMI] 39.0-39.9, adult; Z76.5 Malingerer [conscious simulation]; Z79.01 Long term (current) use of anticoagulants; Z79.891 Long term (current) use of opiate analgesic; Z79.899 Other long term (current) drug therapy; Z86.14 Personal history of Methicillin resistant Staphylococcus aureus infection; Z86.61 Personal history of infections of the central nervous system; Z86.711 Personal history of pulmonary embolism; Z86.718 Personal history of other venous thrombosis and embolism; Z87.01 Personal history of pneumonia (recurrent); Z99.81 Dependence on supplemental oxygen; Z90.49 Acquired absence of other specified parts of digestive tract; Z88.5 Allergy status to narcotic agent; Z88.8 Allergy status to other drugs, medicaments and biological substances; Z88.1 Allergy status to other antibiotic agents; Z91.041 Radiographic dye allergy status; Z82.3 Family history of stroke; Z82.49 Family history of ischemic heart disease and other diseases of the circulatory system; Z83.3 Family history of diabetes mellitus
CPT/HCPCS: 36415; 71275; 74177; 80048; 80053; 81003; 83605; 83735; 84132; 84484; 85025; 85610; 85730; 87040; 87086; 87502; 93005; 94640; 96361; 96374; 96375; 96376; 99285

== ENCOUNTER 2018-07-15 15:43 | Emergency (ER) | payer BC, OTHER ==
[2018-07-15 15:55] VITALS: RESP 18; TEMP 99.1
[2018-07-15] MEDS ORDERED: IPRATROPIUM-ALBUTEROL 3 ML NEB INHALATION STA (16:16)
[2018-07-15] MEDS ORDERED: ACETAMINOPHEN TAB 500 MG TAB PO STA (16:16)
--- NOTE | 2018-07-15 16:23 | ED ---
General Adult HPI - General Chief complaint: Shortness of Breath Stated complaint: SOB, High BP Time Seen by Provider: 07/15/18 15:50 Source: patient, RN notes reviewed Mode of arrival: ambulatory Limitations: no limitations - History of Present Illness Initial comments: This is a 48-year-old female presents emergency department with past medical history significant for pulmonary fibrosis and COPD. Patient states she continues to smoke. Patient states she was recently diagnosed with Pseudomonas her lungs and was put on IV antibiotics at home. Patient comes in because her midline started to come out and was no longer easy to flush and her nursing was unable to get a blood to draw from line. Patient states since yesterday she began coming more more short of breath she has been coughing and she had 101 fever last evening. Patient states today she continues to be short of breath and she has not taken her temperature. Patient denies any chest pain or palpitations. Patient denies any abdominal pain patient denies nausea vomiting diarrhea. - Related Data Home Medications Medication Instructions Recorded Confirmed lamoTRIgine [LaMICtal] 200 mg PO DAILY 03/22/16 07/15/18 Bumetanide 4 mg PO QAM 10/18/16 07/15/18 Butalb/APAP/Caff 50-325-40Mg 1 tab PO Q4H PRN 10/18/16 07/15/18 [Fioricet 50-325-40] Mirtazapine [Remeron] 45 mg PO HS 04/10/17 07/15/18 ALPRAZolam [Xanax] 0.5 mg PO TID PRN 06/06/17 07/15/18 Bumetanide [BUMEX] 2 mg PO DAILY@1200 09/16/17 07/15/18 Pregabalin [Lyrica] 150 mg PO BID 09/16/17 07/15/18 Baclofen [Lioresal] 20 mg PO Q8H PRN 10/09/17 07/15/18 Morphine Sulfate ER [Ms Contin] 30 mg PO Q6H PRN 11/03/17 07/15/18 Nystatin 100,000 Unit/gm Powd 1 applic TOPICAL BID 11/04/17 07/15/18 [Mycostatin Powder] Promethazine/Dextromethorphan 5 ml PO Q6H PRN 11/04/17 07/15/18 [Promethazine-Dm Solution] Sennosides-Docusate Sodium 2 tab PO BID PRN 12/07/17 07/15/18 [Senokot-S] Warfarin [Coumadin] 10 mg PO HS 01/20/18 07/15/18 Ipratropium-Albuterol Nebulize 3 ml INHALATION RT-QID PRN 05/22/18 07/15/18 [Duoneb 0.5 mg-3 mg/3 ml Soln] Meclizine HCl 25 mg PO TID PRN 05/22/18 07/15/18 Ondansetron [Zofran ODT] 4 mg PO Q6H 06/24/18 07/15/18 Previous Rx's Medication Instructions Recorded FLUoxetine HCL [PROzac] 20 mg PO DAILY #30 capsule 08/20/15 Metoprolol Tartrate [Lopressor] 50 mg PO BID #60 tab 08/20/15 Docusate [Colace] 100 mg PO BID PRN #60 cap 11/10/17 Potassium Chloride ER [K-Dur 20] 20 meq PO DAILY #30 tab.er.prt 11/10/17 Hydrocodone/Acetaminophen [[place] 1 tab PO Q6H PRN 3 Days #12 tab 12/09/17 10-325] cefTAZidime [Fortaz] 2 gm IVP Q8HR #42 vial 07/11/18 Allergies Allergy/AdvReac Type Severity Reaction Status Date / Time ketorolac tromethamine Allergy Severe Anaphylaxis Verified 07/15/18 16:53 [From Toradol] adhesive Allergy Rash/Hives Verified 07/15/18 16:53 Iodinated Contrast- Oral and Allergy Unknown Verified 07/15/18 16:53 IV Dye rivaroxaban [From Xarelto] Allergy Rash/Hives Verified 07/15/18 16:53 sumatriptan [From Imitrex] Allergy Anaphylaxis Verified 07/15/18 16:53 sumatriptan succinate Allergy Anaphylaxis Verified 07/15/18 16:53 [From Imitrex] tramadol Allergy Anaphylaxis Verified 07/15/18 16:53 iodine AdvReac Intermediate Itching Verified 07/15/18 16:53 vancomycin AdvReac Itching Verified 07/15/18 16:53 Rich wipes Allergy Severe Rash/Hives Uncoded 07/08/18 14:15 Review of Systems ROS Statement: Those systems with pertinent positive or pertinent negative responses have been documented in the HPI. ROS Other: All systems not noted in ROS Statement are negative. Past Medical History Past Medical History: Blood Disorder, Heart Failure, COPD, Deep Vein Thrombosis (DVT), Hyperlipidemia, Hypertension, Myocardial Infarction (MS), Musculoskeletal Disorder, Pneumonia, Pulmonary Embolus (PE), Thyroid Disorder Additional Past Medical History / Comment(s): PE 2012; Sarcoidosis diagnosed in 2015 following a bronchoscopy and lung biopsy done at [facility] and she was started on predniosone and she took the therapy for almost 1 year, polycythemia, overwe ight, bilateral PE (2011, 2015), bilateral DVTs, fibromyalgia, bipolar disorder, degenerative disk disorder, coronary artery disease along with previous history of a MS and ventilator dependent respiratory failure with MRSA pneumonia for which the patient was hospitalized [facility] in 2012. Viral meningitis in October 2014. Pulmonary fibrosis, home 02 3l n/c Last Myocardial Infarction Date:: February 15, 2013 History of Any Multi-Drug Resistant Organisms: MRSA Date of last positivie culture/infection: 11/09/17 MDRO Source:: PLEURAL FLUID Past Surgical History: Section, Cholecystectomy, Heart Catheterization, Hernia Repair, Orthopedic Surgery Additional Past Surgical History / Comment(s): Lt ankle surgery, several bronchosopy-most recently 11/09/17 Past Anesthesia/Blood Transfusion Reactions: Motion Sickness, Postoperative Nausea & Vomiting (PONV) Additional Past Anesthesia/Blood Transfusion Reaction / Comment(s): previously charted -pt stated that last April she coded due to anesthetic Past Psychological History: Anxiety, Bipolar, Depression, Panic Disorder Smoking Status: Former smoker Past Alcohol Use History: None Reported Past Drug Use History: None Reported - Past Family History Father Family Medical History: Blood Disorder, Congestive Heart Failure (CHF), CVA/TIA, Deep Vein Thrombosis (DVT), Myocardial Infarction (MS) Additional Family Medical History / Comment(s): polycythemia Mother Family Medical History: Congestive Heart Failure (CHF), Diabetes Mellitus, Deep Vein Thrombosis (DVT), Myocardial Infarction (MS), Musculoskeletal Disorder Additional Family Medical History / Comment(s): DDD Sister(s) Family Medical History: No Reported History Brother(s) Family Medical History: No Reported History Son(s) Family Medical History: No Reported History Daughter(s) Family Medical History: No Reported History General Exam - General Exam Comments Initial Comments: GENERAL: Patient is well-developed and well-nourished. Patient is nontoxic and well- hydrated and is in mild distress. ENT: Neck is soft and supple. No significant lymphadenopathy is noted. Oropharynx is clear. Moist mucous membranes. Neck has full range of motion without eliciting any pain. EYES: The sclera were anicteric and conjunctiva were pink and moist. Extraocular movements were intact and pupils were equal round and reactive to light. Eyel ids were unremarkable. PULMONARY: Diminished breath sounds throughout CARDIOVASCULAR: There is a regular rate and rhythm without any murmurs gallops or rubs. ABDOMEN: Soft and nontender with normal bowel sounds. No palpable organomegaly was noted. There is no palpable pulsatile mass. SKIN: Skin is clear with no lesions or rashes and otherwise unremarkable. Patient's midline appears to be pulled out about three quarters of an inch NEUROLOGIC: Patient is alert and oriented x3. Cranial nerves II through XII are grossly intact. Motor and sensory are also intact. Normal speech, volume and content. Symmetrical smile. MUSCULOSKELETAL: Normal extremities with adequate strength and full range of motion. No lower extremity swelling or edema. No calf tenderness. LYMPHATICS: No significant lymphadenopathy is noted PSYCHIATRIC: Normal psychiatric evaluation. Limitations: no limitations Course Vital Signs 07/15/18 07/15/18 07/15/18 15:52 17:22 17:32 Temperature 99.1 F Pulse Rate 90 84 82 Respiratory 18 Rate Blood Pressure 144/95 O2 Sat by Pulse 97 Oximetry Medical Decision Making - Medical Decision Making EKG shows normal sinus rhythm at 84 bpm RI interval 228 QRS is 60 QT interval 358 QTC is 423 per patient's EKG shows no ST segment elevation or depression or T wave abnormalities are noted. Patient's chest x-ray shows no acute abnormality. I spoke with Dr. Lott he wanted the patient to get 1 dose of her antibiotic here and then to follow-up in his office tomorrow. - Lab Data Result diagrams: 07/15/18 16:35 07/15/18 16:35 Lab Results 07/15/18 07/15/18 07/15/18 Range/Units 16:35 16:35 16:35 WBC 10.7 H (3.8-10.6) k/uL RBC 4.87 (3.80-5.40) m/uL Hgb 15.2 (11.4-16.0) gm/dL Hct 44.3 (34.0-46.0) % MCV 90.9 (80.0-100.0) fL MCH 31.1 (25.0-35.0) pg MCHC 34.2 (31.0-37.0) g/dL RDW 15.7 H (11.5-15.5) % Plt Count 191 (150-450) k/uL Neutrophils % 67 % Lymphocytes % 21 % Monocytes % 6 % Eosinophils % 3 % Basophils % 1 % Neutrophils # 7.2 (1.3-7.7) k/uL Lymphocytes # 2.3 (1.0-4.8) k/uL Monocytes # 0.6 (0-1.0) k/uL Eosinophils # 0.3 (0-0.7) k/uL Basophils # 0.1 (0-0.2) k/uL PT (9.0-12.0) sec INR (<1.2) APTT (22.0-30.0) sec Sodium 139 (137-145) mmol/L Potassium 3.8 (3.5-5.1) mmol/L Chloride 107 (98-107) mmol/L Carbon Dioxide 24 (22-30) mmol/L Anion Gap 8 mmol/L BUN 13 (7-17) mg/dL Creatinine 0.85 (0.52-1.04) mg/dL Est GFR (CKD-EPI)AfAm >90 (>60 ml/min/1.73 sqM) Est GFR (CKD-EPI)NonAf 83 (>60 ml/min/1.73 sqM) Glucose 104 H (74-99) mg/dL Plasma Lactic Acid Chuck 1.6 (0.7-2.0) mmol/L Calcium 9.8 (8.4-10.2) mg/dL Total Bilirubin 0.5 (0.2-1.3) mg/dL AST 41 H (14-36) U/L ALT 38 (9-52) U/L Alkaline Phosphatase 78 (38-126) U/L Total Protein 6.9 (6.3-8.2) g/dL Albumin 4.0 (3.5-5.0) g/dL 04/15/19 Range/Units 16:35 WBC (3.8-10.6) k/uL RBC (3.80-5.40) m/uL Hgb (11.4-16.0) gm/dL Hct (34.0-46.0) % MCV (80.0-100.0) fL MCH (25.0-35.0) pg MCHC (31.0-37.0) g/dL RDW (11.5-15.5) % Plt Count (150-450) k/uL Neutrophils % % Lymphocytes % % Monocytes % % Eosinophils % % Basophils % % Neutrophils # (1.3-7.7) k/uL Lymphocytes # (1.0-4.8) k/uL Monocytes # (0-1.0) k/uL Eosinophils # (0-0.7) k/uL Basophils # (0-0.2) k/uL PT 17.7 H (9.0-12.0) sec INR 1.8 H (<1.2) APTT 29.2 (22.0-30.0) sec Sodium (137-145) mmol/L Potassium (3.5-5.1) mmol/L Chloride (98-107) mmol/L Carbon Dioxide (22-30) mmol/L Anion Gap mmol/L BUN (7-17) mg/dL Creatinine (0.52-1.04) mg/dL Est GFR (CKD-EPI)AfAm (>60 ml/min/1.73 sqM) Est GFR (CKD-EPI)NonAf (>60 ml/min/1.73 sqM) Glucose (74-99) mg/dL Plasma Lactic Acid Chuck (0.7-2.0) mmol/L Calcium (8.4-10.2) mg/dL Total Bilirubin (0.2-1.3) mg/dL AST (14-36) U/L ALT (9-52) U/L Alkaline Phosphatase (38-126) U/L Total Protein (6.3-8.2) g/dL Albumin (3.5-5.0) g/dL Disposition Clinical Impression: History of pneumonia Disposition: HOME SELF-CARE Condition: Good Instructions (If sedation given, give patient instructions): Bacterial Pneumonia (ED) Is patient prescribed a controlled substance at d/c from ED?: No Referrals: Kobi Lott MD [STAFF PHYSICIAN] - 07/16/18 Time of Disposition: 18:47
[2018-07-15 17:16] LABS: Basophils # (A) 0.1 k/uL (0-0.2); Basophils % (A) 1 %; Eosinophils # (A) 0.3 k/uL (0-0.7); Eosinophils % (A) 3 %; HCT 44.3 % (34.0-46.0); HGB 15.2 gm/dL (11.4-16.0); Lymphocytes # (A) 2.3 k/uL (1.0-4.8); Lymphocytes % (A) 21 %; MCH 31.1 pg (25.0-35.0); MCHC 34.2 g/dL (31.0-37.0); MCV 90.9 fL (80.0-100.0); Mean Platelet Volume 7.9; Monocytes # (A) 0.6 k/uL (0-1.0); Monocytes % (A) 6 %; Neutrophils # (A) 7.2 k/uL (1.3-7.7); Neutrophils % (A) 67 %; Platelet Count 191 k/uL (150-450); RBC 4.87 m/uL (3.80-5.40); RDW 15.7 % (11.5-15.5); WBC 10.7 k/uL (3.8-10.6)
[2018-07-15 17:17] LABS: ALT 38 U/L (9-52); AST 41 U/L (14-36); Alkaline Phosphatase 78 U/L (38-126); Anion Gap 8 mmol/L; Blood Urea Nitrogen 13 mg/dL (7-17); Calcium 9.8 mg/dL (8.4-10.2); Carbon Dioxide 24 mmol/L (22-30); Chloride 107 mmol/L (98-107); Glucose 104 mg/dL (74-99); Potassium 3.8 mmol/L (3.5-5.1); Sodium 139 mmol/L (137-145); Total Bilirubin 0.5 mg/dL (0.2-1.3); Total Protein 6.9 g/dL (6.3-8.2)
[2018-07-15 17:23] LABS: INR 1.8 (<1.2); Partial Thromboplastin Time 29.2 sec (22.0-30.0); Prothrombin Time 17.7 sec (9.0-12.0)
[2018-07-15] MEDS: SODIUM CHLORIDE 0.9% 500 ML 500 ML IV SCH ×2 (17:41→17:56)
--- NOTE | 2018-07-15 17:57 | XR ---
EXAMINATION TYPE: XR chest 2V DATE OF EXAM: 07/15/2018 COMPARISON: Chest x-ray [address] 7 days ago. HISTORY: Fever and shortness of breath TECHNIQUE: Frontal and lateral views of the chest are obtained. FINDINGS: Elevated left hemidiaphragm is redemonstrated. There is no new suspicious focal air space opacity, pleural effusion, or pneumothorax seen. The cardiac silhouette size remains within normal l imits. The osseous structures are intact. IMPRESSION: No new acute cardiopulmonary process.
[2018-07-15 19:03] VITALS: BP 130/97; PULSE 87
== END 2018-07-15 19:04 | disposition home or self-care (01) ==
LOC: EC 15:43
DX: R06.02 Shortness of breath (principal); R05 Cough; R50.9 Fever, unspecified; Z87.01 Personal history of pneumonia (recurrent); I11.0 Hypertensive heart disease with heart failure; I50.9 Heart failure, unspecified; J44.9 Chronic obstructive pulmonary disease, unspecified; I25.2 Old myocardial infarction; I25.10 Atherosclerotic heart disease of native coronary artery without angina pectoris; F41.0 Panic disorder [episodic paroxysmal anxiety]; F31.9 Bipolar disorder, unspecified; Z79.01 Long term (current) use of anticoagulants; Z79.899 Other long term (current) drug therapy; Z88.5 Allergy status to narcotic agent; Z91.048 Other nonmedicinal substance allergy status; Z88.8 Allergy status to other drugs, medicaments and biological substances; Z91.041 Radiographic dye allergy status; Z88.1 Allergy status to other antibiotic agents; Z87.891 Personal history of nicotine dependence; Z95.5 Presence of coronary angioplasty implant and graft
CPT/HCPCS: 36415; 94640; 93005; 80053; 83605; 85025; 85610; 85730; 87040; 71046; 99285; 96365; J0713

== ENCOUNTER → 2018-07-17 | Day surgery (SDC) | payer BC, OTHER ==
[2018-07-16 12:02] VITALS: BMI 39.5
[~2018-07-17] MED LIST: ALPRAZolam 0.5 MG TAB PO STA; HYDROcodone/APAP 10-325MG 1 EACH TAB PO ONE; LIDOCAINE 1% INJ 10MG/ML (20 ML MDV) SQ ONE
[2018-07-17 13:57] VITALS: TEMP 98.1
[2018-07-17 15:26] VITALS: BP 123/78; PULSE 79; RESP 20
--- NOTE | 2018-07-17 15:34 | XR ---
EXAMINATION TYPE: XR chest 1V DATE OF EXAM: 07/17/2018 COMPARISON: 07/15/2018 INDICATION: Placement of PICC line TECHNIQUE: Single frontal view of the chest is obtained. FINDINGS: The heart size is normal. The pulmonary vasculature is normal. The lungs are clear. PICC line is on the right with the tip in superior vena cava region IMPRESSION: 1. No acute pulmonary process. No pneumothorax is evident. 2. PICC line entering on the right with the tip in the superior vena cava region.
--- NOTE | 2018-07-18 07:48 | IR ---
PICC LINE PLACEMENT: HISTORY: Infection requiring long-term antibiotic therapy PROCEDURE: Ultrasound guidance of PICC line placement. COMPLICATIONS: None ANESTHESIA: 1. 1% Lidocaine locally. FINDINGS/TECHNIQUE: The procedure was explained to the patient. The risks, complications, benefits and alternatives were discussed and any questions were answered. Informed consent was obtained. The patient was placed supine on the fluoroscopic table and prepped and draped in the usual sterile fas ion. Utilizing a 21 gauge needle and sonographic guidance, access in the right basilic vein was ach ieved and there is placement of a 0.018 guidewire. The vein is patent. A 5-F. sheath was placed ove r the guidewire. The guidewire and dilator were removed and a 5-F. Double lumen PICC line was placed through the sheath with the chest x-ray confirming the tip at the level of the SVC. The sheath was removed, the catheter was flushed and sutured into position. The patient was stable throughout the p rocedure and remained stable upon discharge from the Department of Radiology. The vein puncture was patent under ultrasound. A argueta scale image was obtained to document patency of the vein punctured. All elements of the maximal barrier technique were utilized. IMPRESSION: 1. Successful PICC line placement under ultrasound performed bedside.
== END ==
LOC: CATHCVL 12:20
PROVIDERS: ATTEND Radiology Diagnostic Radiology
DX: B99.9 Unspecified infectious disease (principal); J44.9 Chronic obstructive pulmonary disease, unspecified; I10 Essential (primary) hypertension; E78.2 Mixed hyperlipidemia; I25.2 Old myocardial infarction; E03.9 Hypothyroidism, unspecified; D86.9 Sarcoidosis, unspecified; F31.9 Bipolar disorder, unspecified; F41.0 Panic disorder [episodic paroxysmal anxiety]; E66.9 Obesity, unspecified; Z68.39 Body mass index [BMI] 39.0-39.9, adult; Z87.01 Personal history of pneumonia (recurrent); Z86.711 Personal history of pulmonary embolism; Z86.19 Personal history of other infectious and parasitic diseases; Z86.79 Personal history of other diseases of the circulatory system; Z79.01 Long term (current) use of anticoagulants; Z79.899 Other long term (current) drug therapy
CPT/HCPCS: 36573; 71045; C1751; C1769; J2001

== ENCOUNTER 2018-07-21 18:36 | Inpatient (IN) | payer BC, OTHER ==
[2018-07-21] MEDS ORDERED: SODIUM CHLORIDE 0.9% 1,000 ML IV ONE (19:13)
[2018-07-21] MEDS ORDERED: cefTAZidime 1 GM VIAL IVPB SCH (19:15)
[2018-07-21 20:02] LABS: Basophils # (A) 0.1 k/uL (0-0.2); Basophils % (A) 1 %; Eosinophils # (A) 0.5 k/uL (0-0.7); Eosinophils % (A) 4 %; HCT 41.6 % (34.0-46.0); HGB 14.3 gm/dL (11.4-16.0); Lymphocytes # (A) 3.8 k/uL (1.0-4.8); Lymphocytes % (A) 33 %; MCH 31.2 pg (25.0-35.0); MCHC 34.5 g/dL (31.0-37.0); MCV 90.5 fL (80.0-100.0); Mean Platelet Volume 7.3; Monocytes # (A) 0.7 k/uL (0-1.0); Monocytes % (A) 6 %; Neutrophils # (A) 6.2 k/uL (1.3-7.7); Neutrophils % (A) 54 %; Platelet Count 290 k/uL (150-450); RDW 14.4 % (11.5-15.5); WBC 11.5 k/uL (3.8-10.6)
[2018-07-21 20:10] LABS: INR 0.9 (<1.2); Prothrombin Time 9.9 sec (9.0-12.0)
[2018-07-21 20:18] LABS: ALT 42 U/L (9-52); AST 27 U/L (14-36); Albumin 3.9 g/dL (3.5-5.0); Alkaline Phosphatase 84 U/L (38-126); Anion Gap 10 mmol/L; Bilirubin, Delta 0.2 mg/dL (0.0-0.2); Bilirubin,Unconjugated 0.2 mg/dL (0.0-1.1); Blood Urea Nitrogen 9 mg/dL (7-17); Carbon Dioxide 23 mmol/L (22-30); Chloride 107 mmol/L (98-107); Glucose 92 mg/dL (74-99); Lipase 56 U/L (23-300); Sodium 140 mmol/L (137-145); Total Bilirubin 0.4 mg/dL (0.2-1.3); Total Protein 6.7 g/dL (6.3-8.2)
[2018-07-21 20:26] LABS: Potassium 2.5 mmol/L (3.5-5.1)
--- NOTE | 2018-07-21 20:34 | CT ---
EXAMINATION TYPE: CT brain wo con DATE OF EXAM: 07/21/2018 COMPARISON: 11/12/2017 HISTORY: FEVER, WEAKNESS CT DLP: 1068.4 mGycm. Automated Exposure Control for Dose Reduction was Utilized. TECHNIQUE: CT scan of the head is performed without contrast. FINDINGS: Ventricles have normal size. There is no mass effect nor midline shift. There is no sign of intracranial hemorrhage. Calvarium is intact. IMPRESSION: Negative CT scan of the brain. No change.
--- NOTE | 2018-07-21 20:36 | XR ---
EXAMINATION TYPE: XR chest 2V DATE OF EXAM: 07/21/2018 COMPARISON: 07/17/2018 HISTORY: Check PICC line placement TECHNIQUE: Frontal and lateral views of the chest are obtained. FINDINGS: There is right subclavian catheter with the tip in the superior vena cava. Lungs are clear of consolidation. There is no pleural effusion or pneumothorax. Heart appears normal. IMPRESSION: No active cardiopulmonary disease. No change.
[2018-07-21] MEDS ORDERED: MORPHINE SULFATE ER 30 MG TABLET PO STA (20:37)
[2018-07-21] MEDS ORDERED: POTASSIUM CHLORIDE ER 20 MEQ TAB.ER PO STA ×2 (20:38→23:00)
--- NOTE | 2018-07-21 20:40 | CT ---
EXAMINATION TYPE: CT abdomen pelvis wo con DATE OF EXAM: 07/21/2018 COMPARISON: 07/08/2018 HISTORY: FEVER, WEAKNESS CT DLP: 1208.4 mGycm Automated exposure control for dose reduction was used. TECHNIQUE: Helical acquisition of images was performed from the lung bases through the pelvis. FINDINGS: There is subsegmental atelectasis at the lung bases. Heart size is normal. There is no pericardial ef fusion. There is no pleural effusion. Liver shows no focal defect. Spleen appears normal. Stomach appears normal. There is no pancreatic ma ss. There is no adrenal mass. Kidneys are of normal size and contour. There is no hydronephrosis. There i s no retroperitoneal adenopathy. There is umbilical hernia contains fat. Bladder distends smoothly. T here is no pelvic mass. There is no inguinal hernia. There is no evidence of a bowel obstruction. The re is no mesenteric edema. There is no free air or ascites. Appendix appears normal. There is hystere ctomy. There is no evidence of a pelvic mass. Lumbar spine is intact. I see no bony destructive process. IMPRESSION: MINIMAL SUBSEGMENTAL ATELECTASIS AT THE LUNG BASES. NORMAL APPENDIX. NO SIGN OF ACUTE ABDOMEN AND PEL VIS. THERE IS CLEARING OF THE MILD SMALL BOWEL ILEUS COMPARED TO OLD EXAM.
--- NOTE | 2018-07-21 20:44 | ED ---
General Adult HPI - General Chief complaint: Fever Stated complaint: Fever Time Seen by Provider: 07/21/18 18:51 Source: patient Mode of arrival: ambulatory Limitations: no limitations - History of Present Illness Initial comments: 48-year-old female presenting with a fever of 102 at home in 24 hours of watery diarrhea. Patient is on IV antibiotics for Pseudomonas bronchitis. She denies any history of C. diff in the past. He admits to generalized abdominal cramping and nausea as well as generalized weakness. Patient was recently discharged July 17 after being admitted for a small bowel obstruction that resolved. Patient states she took Tylenol prior to arrival for her fever. She denies any vomiting, dysuria, chest pain, worsening shortness of breath. She has been compliant with her home medications. - Related Data Home Medications Medication Instructions Recorded Confirmed lamoTRIgine [LaMICtal] 200 mg PO DAILY 03/22/16 07/21/18 Bumetanide 4 mg PO QAM 10/18/16 07/21/18 Butalb/APAP/Caff 50-325-40Mg 1 tab PO Q4H PRN 10/18/16 07/21/18 [Fioricet 50-325-40] Mirtazapine [Remeron] 45 mg PO HS 04/10/17 07/21/18 ALPRAZolam [Xanax] 0.5 mg PO TID PRN 06/06/17 07/21/18 Bumetanide [BUMEX] 2 mg PO DAILY@1200 09/16/17 07/21/18 Pregabalin [Lyrica] 150 mg PO BID 09/16/17 07/21/18 Baclofen [Lioresal] 20 mg PO Q8H PRN 10/09/17 07/21/18 Morphine Sulfate ER [Ms Contin] 30 mg PO Q6H PRN 11/03/17 07/21/18 Nystatin 100,000 Unit/gm Powd 1 applic TOPICAL BID 11/04/17 07/21/18 [Mycostatin Powder] Promethazine/Dextromethorphan 5 ml PO Q6H PRN 11/04/17 07/21/18 [Promethazine-Dm Solution] Sennosides-Docusate Sodium 2 tab PO BID PRN 12/07/17 07/21/18 [Senokot-S] Warfarin [Coumadin] 10 mg PO HS 01/20/18 07/21/18 Ipratropium-Albuterol Nebulize 3 ml INHALATION RT-QID PRN 05/22/18 07/21/18 [Duoneb 0.5 mg-3 mg/3 ml Soln] Meclizine HCl 25 mg PO TID PRN 05/22/18 07/21/18 Ondansetron [Zofran ODT] 4 mg PO Q6H PRN 06/24/18 07/21/18 Warfarin [Coumadin] 2 mg PO HS 07/21/18 07/21/18 Previous Rx's Medication Instructions Recorded FLUoxetine HCL [PROzac] 20 mg PO DAILY #30 capsule 08/20/15 Metoprolol Tartrate [Lopressor] 50 mg PO BID #60 tab 08/20/15 Docusate [Colace] 100 mg PO BID PRN #60 cap 11/10/17 Potassium Chloride ER [K-Dur 20] 20 meq PO DAILY #30 tab.er.prt 11/10/17 Hydrocodone/Acetaminophen [[place] 1 tab PO Q6H PRN 3 Days #12 tab 12/09/17 10-325] cefTAZidime [Fortaz] 2 gm IVP Q8HR #42 vial 07/11/18 Allergies Allergy/AdvReac Type Severity Reaction Status Date / Time cefepime [From Maxipime] Allergy Severe Rash/Hives Verified 07/21/18 22:38 Iodinated Contrast- Oral and Allergy Severe Rash/Hives Verified 07/21/18 22:38 IV Dye ketorolac tromethamine Allergy Severe Anaphylaxis Verified 07/21/18 22:38 [From Toradol] adhesive Allergy Rash/Hives Verified 07/21/18 22:38 rivaroxaban [From Xarelto] Allergy Rash/Hives Verified 07/21/18 22:38 sumatriptan [From Imitrex] Allergy Anaphylaxis Verified 07/21/18 22:38 sumatriptan succinate Allergy Anaphylaxis Verified 07/21/18 22:38 [From Imitrex] tramadol Allergy Anaphylaxis Verified 07/21/18 22:38 iodine AdvReac Intermediate Itching/severe Verified 07/21/18 22:38 hives vancomycin AdvReac Itching Verified 07/21/18 22:38 Rich wipes Allergy Severe Rash/Hives Uncoded 07/21/18 22:38 Review of Systems ROS Statement: Those systems with pertinent positive or pertinent negative responses have been documented in the HPI. Review of Systems Constitutional: Denies fever, chills Eyes: Denies change in vision, Denies pain Ears, nose, mouth, throat: Denies headaches, Denies sore throat Cardiovascular: Denies chest pain. Denies palpitations Respiratory: Denies shortness of breath, Denies cough Gastrointestinal: Positive abdominal pain. Positive nausea , diarrhea. Genitourinary: Denies hematuria, Denies infections Musculoskeletal: Denies pain, Denies swelling Integumentary: Denies rash Neurological: Denies headache, focal weakness, focal numbness Psychiatric: Denies anxiety, Denies depression Hematologic/Lymphatic: Denies easy bleeding or bruising ROS Other: All systems not noted in ROS Statement are negative. Past Medical History Past Medical History: Blood Disorder, Coronary Artery Disease (CAD), Heart Failure, COPD, Deep Vein Thrombosis (DVT), Fibromyalgia, Hyperlipidemia, Hypertension, Myocardial Infarction ([place]), Pneumonia, Pulmonary Embolus (PE), Thyroid Disorder Additional Past Medical History / Comment(s): Sarcoidosis,polycythemia, bilateral PE's, bilateral DVTs, degenerative disk disorder, history of a [place] and ventilator dependent respiratory failure with MRSA pneumonia, Viral meningitis in October 2014. Pulmonary fibrosis, home 0xygen at 3l n/c, recent pneumonia Last Myocardial Infarction Date:: February 15, 2013 History of Any Multi-Drug Resistant Organisms: MRSA Date of last positivie culture/infection: 11/09/17 MDRO Source:: PLEURAL FLUID Past Surgical History: Section, Cholecystectomy, Heart Catheterization, Hernia Repair, Orthopedic Surgery Additional Past Surgical History / Comment(s): Lt ankle surgery, several bronchosopies Past Anesthesia/Blood Transfusion Reactions: Previous Problems w/ Anesthesia Additional Past Anesthesia/Blood Transfusion Reaction / Comment(s): previously charted -pt stated that last April she coded possbily due to anesthetic-during bronchoscopy procedure with Dr Hicks Past Psychological History: Anxiety Smoking Status: Former smoker Past Alcohol Use History: None Reported Past Drug Use History: None Reported - Past Family History Father Family Medical History: Blood Disorder, Deep Vein Thrombosis (DVT), Myocardial Infarction ([place]), Pulmonary Embolus Additional Family Medical History / Comment(s): polycythemia Mother Family Medical History: Deep Vein Thrombosis (DVT) Additional Family Medical History / Comment(s): DDD Sister(s) Family Medical History: No Reported History Brother(s) Family Medical History: No Reported History Son(s) Family Medical History: No Reported History Daughter(s) Family Medical History: No Reported History General Exam - General Exam Comments Initial Comments: General: Awake, alert, No acute Distress. PICC line in right upper extremity without any erythema or purulent drainage. HENT: Normocephalic. Atraumatic Eyes: PERRL. EOMI. No scleral icterus. No injected conjunctiva Neck: Full ROM Chest/Lungs: Clear to auscultation bilaterally. No wheezing, rhonchi, or rales Cardiac: Regular rate, rhythm. No murmurs or rubs Abdomen/GI: Soft, nontender, nondistended. No rebound, guarding, or rigidity. Musculoskeletal: Full ROM Skin: Warm, dry, intact Neurologic: A/Ox3, no weakness, no sensory deficit, no abnormal gait, no coordination deficit Limitations: no limitations Course Vital Signs 07/21/18 07/21/18 18:45 21:45 Temperature 98.8 F 97.7 F Pulse Rate 85 83 Respiratory 20 18 Rate Blood Pressure 112/80 108/85 O2 Sat by Pulse 92 L 100 Oximetry EKG Findings - EKG Comments: EKG Findings:: EKG shows normal sinus rhythm at a rate of [address] segment elevation, depression. No prolonged QT/QTc or [place] interval. No dysrythmia noted. Medical Decision Making - Medical Decision Making 48-year-old female presenting with fever. Initial exam the patient is awake, alert, no acute distress. VSS. EKG shows NSR. Patient afebrile here but with a mild leukocytosis. Her potassium was 2.5. She refused IV potassium because it villan[place]. The importance of electrolyte replacement was explained to the patient but she continued to refuse. She was given PO potassium. The patient and her were requesting IV narcotics. I offered the patient her home dose of her MS Contin as I do not feel IV narcotics are indicated at this time. They verbalized understanding and agreed to my plan for managing her pain. The patient's INR is subtherpeutic. She is denying worsening shortness of breath. Her home Coumadin was ordered. At this point the patient requires observation placement as she is reporting a fever and has multiple comorbidities putting her at risk for bacteremia. She was placed on contact precaution and CDiff antigen was ordered for the patient's reported diarrhea. Her CT abdomen pelvis was negative. CT of her head was done as the reported an unwitnessed fall today, but that was negative as well. I spoke with Dr. Bush who is agreeable to admission. The patient's home medications were ordered. - Lab Data Result diagrams: 07/21/18 19:43 07/21/18 19:43 Lab Results 07/21/18 07/21/18 07/21/18 Range/Units 19:43 19:43 19:43 WBC 11.5 H (3.8-10.6) k/uL RBC 4.60 (3.80-5.40) m/uL Hgb 14.3 (11.4-16.0) gm/dL Hct 41.6 (34.0-46.0) % MCV 90.5 (80.0-100.0) fL MCH 31.2 (25.0-35.0) pg MCHC 34.5 (31.0-37.0) g/dL RDW 14.4 (11.5-15.5) % Plt Count 290 (150-450) k/uL Neutrophils % 54 % Lymphocytes % 33 % Monocytes % 6 % Eosinophils % 4 % Basophils % 1 % Neutrophils # 6.2 (1.3-7.7) k/uL Lymphocytes # 3.8 (1.0-4.8) k/uL Monocytes # 0.7 (0-1.0) k/uL Eosinophils # 0.5 (0-0.7) k/uL Basophils # 0.1 (0-0.2) k/uL PT (9.0-12.0) sec INR (<1.2) Sodium 140 (137-145) mmol/L Potassium 2.5 L* (3.5-5.1) mmol/L Chloride 107 (98-107) mmol/L Carbon Dioxide 23 (22-30) mmol/L Anion Gap 10 mmol/L BUN 9 (7-17) mg/dL Creatinine 0.76 (0.52-1.04) mg/dL Est GFR (CKD-EPI)AfAm >90 (>60 ml/min/1.73 sqM) Est GFR (CKD-EPI)NonAf >90 (>60 ml/min/1.73 sqM) Glucose 92 (74-99) mg/dL Plasma Lactic Acid Chuck 1.7 (0.7-2.0) mmol/L Calcium 9.0 (8.4-10.2) mg/dL Total Bilirubin 0.4 (0.2-1.3) mg/dL Conjugated Bilirubin 0.0 (0.0-0.3) mg/dL Unconjugated Bilirubin 0.2 (0.0-1.1) mg/dL Delta Bilirubin 0.2 (0.0-0.2) mg/dL AST 27 (14-36) U/L ALT 42 (9-52) U/L Alkaline Phosphatase 84 (38-126) U/L Troponin I (0.000-0.034) ng/mL Total Protein 6.7 (6.3-8.2) g/dL Albumin 3.9 (3.5-5.0) g/dL Lipase 56 (23-300) U/L 07/21/18 07/21/18 Range/Units 19:43 19:43 WBC (3.8-10.6) k/uL RBC (3.80-5.40) m/uL Hgb (11.4-16.0) gm/dL Hct (34.0-46.0) % MCV (80.0-100.0) fL MCH (25.0-35.0) pg MCHC (31.0-37.0) g/dL RDW (11.5-15.5) % Plt Count (150-450) k/uL Neutrophils % % Lymphocytes % % Monocytes % % Eosinophils % % Basophils % % Neutrophils # (1.3-7.7) k/uL Lymphocytes # (1.0-4.8) k/uL Monocytes # (0-1.0) k/uL Eosinophils # (0-0.7) k/uL Basophils # (0-0.2) k/uL PT 9.9 (9.0-12.0) sec INR 0.9 (<1.2) Sodium (137-145) mmol/L Potassium (3.5-5.1) mmol/L Chloride (98-107) mmol/L Carbon Dioxide (22-30) mmol/L Anion Gap mmol/L BUN (7-17) mg/dL Creatinine (0.52-1.04) mg/dL Est GFR (CKD-EPI)AfAm (>60 ml/min/1.73 sqM) Est GFR (CKD-EPI)NonAf (>60 ml/min/1.73 sqM) Glucose (74-99) mg/dL Plasma Lactic Acid Chuck (0.7-2.0) mmol/L Calcium (8.4-10.2) mg/dL Total Bilirubin (0.2-1.3) mg/dL Conjugated Bilirubin (0.0-0.3) mg/dL Unconjugated Bilirubin (0.0-1.1) mg/dL Delta Bilirubin (0.0-0.2) mg/dL AST (14-36) U/L ALT (9-52) U/L Alkaline Phosphatase (38-126) U/L Troponin I <0.012 (0.000-0.034) ng/mL Total Protein (6.3-8.2) g/dL Albumin (3.5-5.0) g/dL Lipase (23-300) U/L Disposition Clinical Impression: Hypokalemia, Diarrhea, Subtherapeutic anticoagulation, Febrile illness Disposition: ADMITTED IP TO [facility] Decision to Admit Reason: Admit from EC Decision Date: 07/21/18 Decision Time: 21:35
[2018-07-21] MEDS ORDERED: NALOXONE 0.4 MG/ML 1 ML VIAL IV PRN (21:25)
[2018-07-21] MEDS ORDERED: DOCUSATE 100 MG CAP PO PRN (21:28)
[2018-07-21] MEDS ORDERED: MORPHINE SULFATE 4 MG/ML SYRINGE IVP STA (22:59)
[2018-07-21] MEDS ORDERED: MECLIZINE 25 MG TAB PO PRN (23:00)
[2018-07-21] MEDS: POTASSIUM CHLORIDE 10 MEQ in WATER FOR INJECTION 1 100ML.BAG IVPB SCH (23:04)
[2018-07-21] MEDS: PREGABALIN 75 MG CAP PO SCH (23:06)
[2018-07-21] MEDS: ALPRAZolam 0.5 MG TAB PO PRN (23:06)
[2018-07-21] MEDS: IPRATROPIUM-ALBUTEROL 3 ML NEB INHALATION PRN (23:30)
[2018-07-21] MEDS: WARFARIN 10 MG TAB PO SCH (23:51)
[2018-07-21] MEDS: WARFARIN 2 MG TAB PO SCH (23:51)
[2018-07-21] MEDS: MIRTAZAPINE 45 MG TABLET PO SCH (23:51)
[2018-07-22] MEDS: POTASSIUM CHLORIDE 10 MEQ in WATER FOR INJECTION 1 100ML.BAG IVPB SCH ×3 (00:01→02:43)
[2018-07-22] MEDS: ONDANSETRON 4 MG/2 ML VIAL IVP PRN (00:02)
[2018-07-22 00:27] LABS: Appearance,Urine Clear (Clear); Bilirubin,Urine Negative (Negative); Blood,Urine Negative (Negative); Color,Urine Yellow; Glucose,Urine (UA) Negative (Negative); Ketones,Urine Negative (Negative); Leukocyte Esterase,Urine Negative (Negative); Nitrite,Urine Negative (Negative); Protein,Urine Trace (Negative); Specific Gravity,Urine 1.018 (1.001-1.035); Urobilinogen,Urine <2.0 mg/dL (<2.0)
[2018-07-22] MEDS ORDERED: MORPHINE SULFATE 4 MG/ML SYRINGE IVP STA (02:27)
[2018-07-22] MEDS ORDERED: POTASSIUM CHLORIDE ER 20 MEQ TAB.ER PO STA ×3 (02:56→19:20)
[2018-07-22 05:46] LABS: Basophils # (A) 0.1 k/uL (0-0.2); Basophils % (A) 1 %; Eosinophils # (A) 0.4 k/uL (0-0.7); Eosinophils % (A) 4 %; HCT 39.7 % (34.0-46.0); HGB 13.2 gm/dL (11.4-16.0); Lymphocytes # (A) 2.8 k/uL (1.0-4.8); Lymphocytes % (A) 29 %; MCH 30.7 pg (25.0-35.0); MCHC 33.4 g/dL (31.0-37.0); Mean Platelet Volume 7.2; Monocytes # (A) 0.7 k/uL (0-1.0); Monocytes % (A) 7 %; Neutrophils # (A) 5.7 k/uL (1.3-7.7); Neutrophils % (A) 57 %; Platelet Count 279 k/uL (150-450); RBC 4.31 m/uL (3.80-5.40); RDW 14.8 % (11.5-15.5)
[2018-07-22 06:03] LABS: Anion Gap 5 mmol/L; Blood Urea Nitrogen 6 mg/dL (7-17); Calcium 8.2 mg/dL (8.4-10.2); Carbon Dioxide 25 mmol/L (22-30); Chloride 108 mmol/L (98-107); Glucose 159 mg/dL (74-99); Potassium 3.4 mmol/L (3.5-5.1); Sodium 138 mmol/L (137-145)
[2018-07-22] MEDS ORDERED: MORPHINE SULFATE 2 MG/ML SYRINGE IVP STA (06:36)
[2018-07-22] MEDS: POTASSIUM CHLORIDE ER 20 MEQ TAB.ER PO SCH ×2 (08:07→21:01)
[2018-07-22] MEDS: lamoTRIgine 100 MG TAB PO SCH (08:07)
[2018-07-22] MEDS: MORPHINE SULFATE ER 30 MG TABLET PO PRN (08:07)
[2018-07-22] MEDS: ALPRAZolam 0.5 MG TAB PO PRN ×2 (08:08→17:46)
[2018-07-22] MEDS: PREGABALIN 75 MG CAP PO SCH ×2 (08:08→19:55)
[2018-07-22] MEDS: METOPROLOL TARTRATE 50 MG TAB PO SCH ×2 (08:08→19:55)
[2018-07-22] MEDS: FLUoxetine HCL 20 MG CAP PO SCH (08:08)
--- NOTE | 2018-07-22 11:41 | P.HPIM ---
History of Present Illness this is a pleasant 48 years old female with past medical history of COPD, congestive heart failure, DVT, hyperlipidemia, coronary artery disease, hypertension, pulmonary embolism on and coagulation, hysterectomy, hypothyroidism,polycythemia, fibromyalgia, bipolar disorder. 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 She was on IV antibiotics via PICC line. This time patient presents with fever on and off for about one week, she states that she measured did at home it was 100.2F. She denies abdominal pain, however she has nausea but no vomiting. She states that she has watery diarrhea every time she eats. Also patient complaining of from the same severe right-sided pleuritic chest pain. As per patient she still have 64 doses of antibiotics ceftazidime every 8 hours, which is about 14-15 more days as per patient. Patient also telling me she was not following up with infectious disease team as she supposed to be in the office. However she stated that she is compliant to her antibiotics and coumadine. Her INR on admission was subtherapeutic at 0.9. Vitas looks stable and since admission patient has been afebrile. Risks of vitals look is stable. She is out home oxygen with 4 L via [place], currently she is the same and saturating 99%. On admission she has mild leukocytosis which is improved to normal today. Potassium was significantly low 2.5, replaced with oral therapy to 3.4 today. Urinalysis is negative. C. diff test is negative. Negative CT of the head. CT of the abdomen and pelvis without contrast showing atelectasis of the lung bases, no sign of acute abdomen and pelvis Patient is constantly asking for pain medication for her right-sided pleuritic chest pain. Review of Systems CONSTITUTIONAL: No fever, no malaise, no fatigue. HEENT: No recent visual problems or hearing problems. Denied any sore throat. CARDIOVASCULAR: No orthopnea, PND, no palpitations, no syncope. PULMONARY: No shortness of breath, no cough, no hemoptysis. GASTROINTESTINAL: No diarrhea, no nausea, no vomiting, no abdominal pain. Normoactive bowel sounds. NEUROLOGICAL: No headaches, no weakness, no numbness. HEMATOLOGICAL: Denies any bleeding or petechiae. GENITOURINARY: Denies any burning micturition, frequency, or urgency. MUSCULOSKELETAL/RHEUMATOLOGICAL: Denies any joint pain, swelling, or any muscle pain. ENDOCRINE: Denies any polyuria or polydipsia. Past Medical History Past Medical History: Blood Disorder, Coronary Artery Disease (CAD), Heart Failure, COPD, Deep Vein Thrombosis (DVT), Fibromyalgia, Hyperlipidemia, Hypertension, Myocardial Infarction ([place]), Pneumonia, Pulmonary Embolus ([place]), Thyroid Disorder Additional Past Medical History / Comment(s): Sarcoidosis,polycythemia, bilateral PE's, bilateral DVTs, degenerative disk disorder, history of a [place] and ventilator dependent respiratory failure with MRSA pneumonia, Viral meningitis in October 2014. Pulmonary fibrosis, home 0xygen at 3l n/c, recent pneumonia Last Myocardial Infarction Date:: February 15, 2013 History of Any Multi-Drug Resistant Organisms: MRSA Date of last positivie culture/infection: 11/09/17 MDRO Source:: PLEURAL FLUID Past Surgical History: Section, Cholecystectomy, Heart Catheterization, Hernia Repair, Orthopedic Surgery Additional Past Surgical History / Comment(s): Lt ankle surgery, several bronchosopies Past Anesthesia/Blood Transfusion Reactions: Previous Problems w/ Anesthesia Additional Past Anesthesia/Blood Transfusion Reaction / Comment(s): previously charted -pt stated that last April she coded possbily due to anesthetic-during bronchoscopy procedure with Dr Hicks Past Psychological History: Anxiety Smoking Status: Former smoker Past Alcohol Use History: None Reported Past Drug Use History: None Reported - Past Family History Father Family Medical History: Blood Disorder, Deep Vein Thrombosis (DVT), Myocardial Infarction ([place]), Pulmonary Embolus Additional Family Medical History / Comment(s): polycythemia Mother Family Medical History: Deep Vein Thrombosis (DVT) Additional Family Medical History / Comment(s): DDD Sister(s) Family Medical History: No Reported History Brother(s) Family Medical History: No Reported History Son(s) Family Medical History: No Reported History Daughter(s) Family Medical History: No Reported History Medications and Allergies Home Medications Medication Instructions Recorded Confirmed Type FLUoxetine HCL [PROzac] 20 mg PO DAILY #30 capsule 08/20/15 07/21/18 Rx Metoprolol Tartrate [Lopressor] 50 mg PO BID #60 tab 08/20/15 07/21/18 Rx lamoTRIgine [LaMICtal] 200 mg PO DAILY 03/22/16 07/21/18 History Bumetanide 4 mg PO QAM 10/18/16 07/21/18 History Butalb/APAP/Caff 50-325-40Mg 1 tab PO Q4H PRN 10/18/16 07/21/18 History [Fioricet 50-325-40] Mirtazapine [Remeron] 45 mg PO HS 04/10/17 07/21/18 History ALPRAZolam [Xanax] 0.5 mg PO TID PRN 06/06/17 07/21/18 History Bumetanide [BUMEX] 2 mg PO DAILY@1200 09/16/17 07/21/18 History Pregabalin [Lyrica] 150 mg PO BID 09/16/17 07/21/18 History Baclofen [Lioresal] 20 mg PO Q8H PRN 10/09/17 07/21/18 History Morphine Sulfate ER [Ms Contin] 30 mg PO Q6H PRN 11/03/17 07/21/18 History Nystatin 100,000 Unit/gm Powd 1 applic TOPICAL BID 11/04/17 07/21/18 History [Mycostatin Powder] Promethazine/Dextromethorphan 5 ml PO Q6H PRN 11/04/17 07/21/18 History [Promethazine-Dm Solution] Docusate [Colace] 100 mg PO BID PRN #60 cap 11/10/17 07/21/18 Rx Potassium Chloride ER [K-Dur 20] 20 meq PO DAILY #30 tab.er.prt 11/10/17 07/21/18 Rx Sennosides-Docusate Sodium 2 tab PO BID PRN 12/07/17 07/21/18 History [Senokot-S] Hydrocodone/Acetaminophen [[place] 1 tab PO Q6H PRN 3 Days #12 tab 12/09/17 07/21/18 Rx 10-325] Warfarin [Coumadin] 10 mg PO HS 01/20/18 07/21/18 History Ipratropium-Albuterol Nebulize 3 ml INHALATION RT-QID PRN 05/22/18 07/21/18 Hist ory [Duoneb 0.5 mg-3 mg/3 ml Soln] Meclizine HCl 25 mg PO TID PRN 05/22/18 07/21/18 History Ondansetron [Zofran ODT] 4 mg PO Q6H PRN 06/24/18 07/21/18 History cefTAZidime [Fortaz] 2 gm IVP Q8HR #42 vial 07/11/18 07/21/18 Rx Warfarin [Coumadin] 2 mg PO HS 07/21/18 07/21/18 History Allergies Allergy/AdvReac Type Severity Reaction Status Date / Time cefepime [From Maxipime] Allergy Severe Rash/Hives Verified 07/21/18 22:38 Iodinated Contrast- Oral and Allergy Severe Rash/Hives Verified 07/21/18 22:38 IV Dye ketorolac tromethamine Allergy Severe Anaphylaxis Verified 07/21/18 22:38 [From Toradol] adhesive Allergy Rash/Hives Verified 07/21/18 22:38 rivaroxaban [From Xarelto] Allergy Rash/Hives Verified 07/21/18 22:38 sumatriptan [From Imitrex] Allergy Anaphylaxis Verified 07/21/18 22:38 sumatriptan succinate Allergy Anaphylaxis Verified 07/21/18 22:38 [From Imitrex] tramadol Allergy Anaphylaxis Verified 07/21/18 22:38 iodine AdvReac Intermediate Itching/severe Verified 07/21/18 22:38 hives vancomycin AdvReac Itching Verified 07/21/18 22:38 Rich wipes Allergy Severe Rash/Hives Uncoded 07/21/18 22:38 Physical Exam Vitals: Vital Signs Temp Pulse Pulse Resp BP BP Pulse Ox 07/22/18 07:49 98.3 F 101 H 18 130/83 99 07/22/18 03:35 18 07/22/18 00:00 18 07/21/18 23:38 88 07/21/18 23:33 85 07/21/18 22:32 97.8 F 85 18 130/79 98 07/21/18 21:45 97.7 F 83 18 108/85 100 07/21/18 18:45 98.8 F 85 20 112/80 92 L Intake and Output 07/21/18 07/22/18 07/22/18 22:59 06:59 14:59 Intake Total 240 Balance 240 Intake: Oral 240 Other: Voiding Method Toilet Toilet # Voids 1 # Bowel Movements 1 Weight 108.862 kg GENERAL: The patient is alert and oriented x3, not in any acute distress. Obese HEENT: Pupils are round and equally reacting to light. EOMI. No scleral icterus. No conjunctival pallor. Normocephalic, atraumatic. No pharyngeal erythema. No thyromegaly. CARDIOVASCULAR: S1 and S2 present. No murmurs, rubs, or gallops. PULMONARY: Chest is clear to auscultation, no wheezing or crackles. ABDOMEN: Soft, nontender, nondistended, normoactive bowel sounds. No palpable organomegaly. MUSCULOSKELETAL: No joint swelling or deformity. EXTREMITIES: No cyanosis, clubbing, or pedal edema. NEUROLOGICAL: Gross neurological examination did not reveal any focal deficits. SKIN: No rashes. Results CBC & Chem 7: 07/22/18 05:15 07/22/18 05:15 Labs: Abnormal Lab Results - Last 24 Hours (Table) 07/21/18 07/21/18 07/21/18 Range/Units 19:43 19:43 23:45 WBC 11.5 H (3.8-10.6) k/uL Potassium 2.5 L* (3.5-5.1) mmol/L Chloride (98-107) mmol/L BUN (7-17) mg/dL Glucose (74-99) mg/dL Calcium (8.4-10.2) mg/dL Urine Protein Trace H (Negative) 07/22/18 Range/Units 05:15 WBC (3.8-10.6) k/uL Potassium 3.4 L (3.5-5.1) mmol/L Chloride 108 H (98-107) mmol/L BUN 6 L (7-17) mg/dL Glucose 159 H (74-99) mg/dL Calcium 8.2 L (8.4-10.2) mg/dL Urine Protein (Negative) Thrombosis Risk Factor Assmnt - Choose All That Apply Each Factor Represents 1 point: Age 41-60 years Thrombosis Risk Factor Assessment Total Risk Factor Score: 1 Thrombosis Risk Factor Assessment Level: Low Risk Assessment and Plan Assessment: Fever and diarrhea on admission, resolving. C. diff is negative. Right-sided pleuritic chest pain, chronic/recurrent. History of PE on Coumadin. Subtherapeutic INR. History of pseudomonas infection in her pulmonary passages or, on ceftazidime with PICC line. History of COPD History of congestive heart failure Hyperlipidemia History of coronary artery disease Hypertension History of hysterectomy Hypothyroidism History of fibromyalgia and bipolar disorder Plan: This is a pleasant 48 years old female presents with diarrhea, recurrent LidoSite chest pleuritic chest pain. Possible fever. Patient is been afebrile since admission. Consult infectious disease team. Continue with pain medicine . Patient is counseled and she still wants IV pain medication for the first 24 hours before switch to oral therapy. Risks benefits and alternatives are explained for the patient. Replace electrolytes. Labs and medication were reviewed.. Continue same treatment. Continue with symptomatic treatment. Resume home medication. Monitor lytes and vitals. DVT and GI prophylaxis. Further recommendations of the clinical course of the patient DVT prophylaxis: Lovenox and Coumadin GI Prophylaxis: Pepcid Prognosis is guarded
[2018-07-22] MEDS: MORPHINE SULFATE 4 MG/ML SYRINGE IVP PRN ×4 (11:44→23:42)
[2018-07-22] MEDS: ENOXAPARIN 100 MG/ML SYRINGE SQ SCH ×2 (11:52→21:01)
[2018-07-22] MEDS: WARFARIN 10 MG TAB PO SCH (17:40)
[2018-07-22] MEDS: WARFARIN 2 MG TAB PO SCH (17:40)
[2018-07-22] MEDS: IPRATROPIUM-ALBUTEROL 3 ML NEB INHALATION PRN (18:18)
[2018-07-22] MEDS: FAMOTIDINE 20 MG/2 ML VIAL IV SCH (19:55)
[2018-07-22] MEDS: MIRTAZAPINE 45 MG TABLET PO SCH (21:01)
[2018-07-22] MEDS: MAGNESIUM SULFATE-D5W PMX 1 GM in DEXTROSE/WATER 1 100ML.BAG IVPB SCH (23:42)
[2018-07-23] MEDS: MAGNESIUM SULFATE-D5W PMX 1 GM in DEXTROSE/WATER 1 100ML.BAG IVPB SCH (00:45)
[2018-07-23] MEDS: MORPHINE SULFATE 4 MG/ML SYRINGE IVP PRN ×2 (03:43→07:58)
[2018-07-23] MEDS: ONDANSETRON 4 MG/2 ML VIAL IVP PRN ×2 (04:36→17:33)
[2018-07-23] MEDS: FLUoxetine HCL 20 MG CAP PO SCH (06:52)
[2018-07-23] MEDS: lamoTRIgine 100 MG TAB PO SCH (06:53)
[2018-07-23] MEDS: METOPROLOL TARTRATE 50 MG TAB PO SCH ×2 (06:53→21:08)
[2018-07-23] MEDS: POTASSIUM CHLORIDE ER 20 MEQ TAB.ER PO SCH ×2 (06:53→21:08)
[2018-07-23] MEDS: PREGABALIN 75 MG CAP PO SCH ×2 (06:53→21:08)
[2018-07-23] MEDS: FAMOTIDINE 20 MG/2 ML VIAL IV SCH (06:53)
[2018-07-23] MEDS: ENOXAPARIN 100 MG/ML SYRINGE SQ SCH ×2 (06:53→21:09)
[2018-07-23] MEDS: IPRATROPIUM-ALBUTEROL 3 ML NEB INHALATION PRN ×4 (07:00→20:57)
[2018-07-23] MEDS: ACETAMINOPHEN TAB 325 MG TAB PO PRN ×3 (07:56→23:21)
[2018-07-23 09:36] LABS: Basophils % (A) 0 %; Eosinophils # (A) 0.2 k/uL (0-0.7); Eosinophils % (A) 4 %; HCT 37.5 % (34.0-46.0); HGB 12.4 gm/dL (11.4-16.0); Lymphocytes # (A) 1.5 k/uL (1.0-4.8); Lymphocytes % (A) 22 %; MCH 30.1 pg (25.0-35.0); MCHC 33.1 g/dL (31.0-37.0); MCV 90.8 fL (80.0-100.0); Mean Platelet Volume 7.6; Monocytes # (A) 0.4 k/uL (0-1.0); Monocytes % (A) 6 %; Neutrophils # (A) 4.5 k/uL (1.3-7.7); Neutrophils % (A) 65 %; Platelet Count 260 k/uL (150-450); RBC 4.14 m/uL (3.80-5.40); RDW 15.6 % (11.5-15.5); WBC 6.9 k/uL (3.8-10.6)
[2018-07-23 09:47] LABS: INR 1.3 (<1.2); Prothrombin Time 13.3 sec (9.0-12.0)
[2018-07-23 09:48] LABS: Anion Gap 7 mmol/L; Blood Urea Nitrogen 6 mg/dL (7-17); Calcium 7.5 mg/dL (8.4-10.2); Carbon Dioxide 21 mmol/L (22-30); Chloride 109 mmol/L (98-107); Glucose 96 mg/dL (74-99); Magnesium 1.7 mg/dL (1.6-2.3); Potassium 4.1 mmol/L (3.5-5.1); Sodium 137 mmol/L (137-145)
[2018-07-23] MEDS: MORPHINE SULFATE ER 30 MG TABLET PO PRN (11:57)
[2018-07-23] MEDS ORDERED: MAGNESIUM OXIDE 400 MG TAB PO STA (14:18)
[2018-07-23] MEDS ORDERED: MAGNESIUM SULFATE-D5W PMX 1 GM in DEXTROSE/WATER 1 100ML.BAG IVPB ONE (14:30)
--- NOTE | 2018-07-23 14:35 | P.PN ---
Subjective this is a pleasant 48 years old female with past medical history of COPD, congestive heart failure, DVT, hyperlipidemia, coronary artery disease, hy pertension, pulmonary embolism on and coagulation, hysterectomy, hypothyroidism,polycythemia, fibromyalgia, bipolar disorder. 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 She was on IV antibiotics via PICC line. This t cooper patient presents with fever on and off for about one week, she states that she measured did at home it was 100.2F. She denies abdominal pain, however she has nausea but no vomiting. She states that she has watery diarrhea every time she eats. Also patient complaining of from the same severe right-sided pleuritic chest pain. As per patient she still have 64 doses of antibiotics ceftazidime every 8 hours, which is about 14-15 more days as per patient. Patient also telling me she was not following up with infectious disease team as she supposed to be in the office. However she stated that she is compliant to her antibiotics and coumadine. Her INR on admission was subtherapeutic at 0.9. Vitas looks stable and since admission patient has been afebrile. Risks of vitals look is stable. She is out home oxygen with 4 L via [place], currently she is the same and saturating 99%. On admission she has mild leukocytosis which is improved to normal today. Potassium was significantly low 2.5, replaced with oral therapy to 3.4 today. Urinalysis is negative. C. diff test is negative. Negative CT of the head. CT of the abdomen and pelvis without contrast showing atelectasis of the lung bases, no sign of acute abdomen and pelvis Patient is constantly asking for pain medication for her right-sided pleuritic chest pain. 07/23/2018 Patient is awake and alert today, not in distress. She is tachypneic and she still complains from right sided chest pain although her pain is better contrast compared to yesterday. She still have some coughing. She denies abdominal pain or diarrhea. And abdominal exam looks benign. We'll have fever today of 101.6 infectious disease has been consulted. Patient is currently on cefepime. Chest x-ray was negative, as well as CT of the abdomen and pelvis was unremarkable for source of infection. We'll do a CAT scan of the chest without contrast. Her INR today is 1.3, continue with Coumadin and Lovenox bridging. Continue with pain management. Blood culture are negative so far. Patient is asking to keep the morphine medication for her . Explained the risk for her and we going to taper its and wonder today and she agrees. CONSTITUTIONAL: No fever, no malaise, no fatigue. HEENT: No recent visual problems or hearing problems. Denied any sore throat. CARDIOVASCULAR: No orthopnea, PND, no palpitations, no syncope. PULMONARY: no hemoptysis. GASTROINTESTINAL: no nausea, no vomiting, no abdominal pain. Normoactive bowel sounds. NEUROLOGICAL: No headaches, no weakness, no numbness. HEMATOLOGICAL: Denies any bleeding or petechiae. GENITOURINARY: Denies any burning micturition, frequency, or urgency. MUSCULOSKELETAL/RHEUMATOLOGICAL: Denies any joint pain, swelling, or any muscle pain. ENDOCRINE: Denies any polyuria or polydipsia. Medication: Tylenol, albuterol, Xanax, baclofen, ceftazidime, Colace, Lovenox, Pepcid, Prozac, Lamictal, magnesium, Antivert, Lopressor, Romeron, coumadine, Zofran, MS Contin, potassium chloride, Lyrica, Objective - Vital Signs Vital signs: Vital Signs Temp 100.3 F H 07/23/18 14:24 Pulse 91 07/23/18 14:24 Resp 16 07/23/18 14:24 BP 100/59 07/23/18 14:24 Pulse Ox 92 L 07/23/18 14:24 Intake & Output 07/22/18 07/23/18 07/23/18 18:59 06:59 18:59 Intake Total 906 Balance 906 Intake: Oral 906 Other: Voiding Method Toilet Toilet # Voids 1 1 2 - Exam GENERAL: The patient is alert and oriented x3, not in any acute distress. Obe se. HEENT: Pupils are round and equally reacting to light. EOMI. No scleral icterus. No conjunctival pallor. Normocephalic, atraumatic. No pharyngeal erythema. No thyromegaly. CARDIOVASCULAR: S1 and S2 present. No murmurs, rubs, or gallops. PULMONARY: Chest is clear to auscultation, no wheezing or crackles. ABDOMEN: Soft, nontender, nondistended, normoactive bowel sounds. No palpable organomegaly. MUSCULOSKELETAL: No joint swelling or deformity. EXTREMITIES: No cyanosis, clubbing, or pedal edema. NEUROLOGICAL: Gross neurological examination did not reveal any focal deficits. SKIN: No rashes. - Labs CBC & Chem 7: 07/23/18 09:14 07/23/18 09:14 Labs: Abnormal Lab Results - Last 24 Hours (Table) 07/23/18 07/23/18 07/23/18 Range/Units 09:14 09:14 09:14 RDW 15.6 H (11.5-15.5) % PT 13.3 H (9.0-12.0) sec INR 1.3 H (<1.2) Chloride 109 H (98-107) mmol/L Carbon Dioxide 21 L (22-30) mmol/L BUN 6 L (7-17) mg/dL Calcium 7.5 L (8.4-10.2) mg/dL Microbiology - Last 24 Hours (Table) 07/21/18 19:43 Blood Culture - Preliminary Blood No Growth after 24 hours Assessment and Plan Assessment: Fever and diarrhea on admission, . C. diff is negative. And no source of infection Right-sided pleuritic chest pain, chronic/recurrent. History of PE on Coumadin. Subtherapeutic INR. History of pseudomonas infection in her pulmonary passages or, on ceftazidime with PICC line. History of COPD History of congestive heart failure Hyperlipidemia History of coronary artery disease Hypertension History of hysterectomy Hypothyroidism History of fibromyalgia and bipolar disorder Plan: This is a pleasant 48 years old female presents with diarrhea, recurrent [employer] chest pleuritic chest pain. Possible fever. Patient is been afebrile since admission. Consult infectious disease team. Continue with pain medicine . Patient is counseled and she still wants IV pain medication for the first 24 hours before switch to oral therapy. Risks benefits and alternatives are explained for the patient. Replace electrolytes. Labs and medication were reviewed.. Continue same treatment. Continue with symptomatic treatment. Resume home medication. Monitor lytes and vitals. DVT and GI prophylaxis. Further recommendations of the clinical course of the patient DVT prophylaxis: Lovenox and Coumadin GI Prophylaxis: Pepcid Prognosis is guarded
[2018-07-23] MEDS: ALPRAZolam 0.5 MG TAB PO PRN ×2 (14:39→22:25)
[2018-07-23] MEDS ORDERED: DEXTROSE 5%-0.45% NACL 1,000 ML IV SCH (14:45)
[2018-07-23] MEDS: WARFARIN 2 MG TAB PO SCH (15:18)
[2018-07-23] MEDS: MORPHINE SULFATE 2 MG/ML SYRINGE IVP PRN ×3 (15:18→23:31)
[2018-07-23] MEDS: WARFARIN 10 MG TAB PO SCH (15:18)
--- NOTE | 2018-07-23 16:13 | CT ---
EXAMINATION TYPE: CT chest wo con DATE OF EXAM: 07/23/2018 COMPARISON: Chest x-ray 07/21/[address] 07/03/2018 and 07/08/2017 HISTORY: cough, fever, pneumonia, SOB. CT DLP: 548.8 mGycm. Automated Exposure Control for Dose Reduction was Utilized. TECHNIQUE: CT scan of the thorax is performed without IV contrast. FINDINGS: LUNGS: The lungs are remarkable for peribronchovascular groundglass opacity in the distribution of th e perihilar region, left and right upper lobes, right lower lobe. No pleural effusion. Underlying emp hysematous changes are present. MEDIASTINUM: Lack of IV contrast is noted to limit evaluation for mediastinal and especially hilar ad enopathy. There are no definitive greater than 1 cm hilar or mediastinal lymph nodes. No cardiomega ly or pericardial effusion is seen. OTHER: No additional significant abnormality is seen. IMPRESSION: Consider cryptogenic organizing pneumonia, nonspecific interstitial pneumonia and collage n vascular disease, and atypical infections in the setting of immunocompromised patient. Findings hav e developed in the interval from prior CTs.
[2018-07-23] MEDS: FAMOTIDINE 20 MG TAB PO SCH (21:09)
[2018-07-23] MEDS: MIRTAZAPINE 45 MG TABLET PO SCH (22:25)
[2018-07-23] MEDS ORDERED: LEVOFLOXACIN 500MG-D5W PMX 500 MG in DEXTROSE/WATER 1 100ML.BAG IVPB SCH (23:00)
[2018-07-23] MEDS: SODIUM CHLORIDE 0.9% 1,000 ML IV SCH (23:17)
[2018-07-23] MEDS: methylPREDNISolone SOD SUCCI 40 MG/ML 1 ML VIAL IV SCH (23:21)
--- NOTE | 2018-07-23 23:38 | P.CONS ---
History of Present Illness - Reason for Consult Consult date: 07/23/18 - Chief Complaint Fever and shortness of breath - History of Present Illness This is a 48-year-old female known to ID service and she has multiple medical troubles including obesity and sarcoidosis, recent treatment for Pseudomonas and was discharged from the hospital on July 03 to complete 2 week course of cefepime. She states she has been receiving the cefepime as scheduled and has not missed any doses. She denies any trouble with her midline. The patient comes back into [facility] emergency center complaining of feeling tired, fever 101.3. She states her shortness of breath is about her baseline and she gets worse with activity. She is on home O2 at 3 L nasal cannula. She complains of nausea without vomiting. Her last bowel movement was yesterday morning. She denies any dysuria. Patient has been afebrile since admission. White count at 11, INR 3.5, potassium 2.6 and has been replaced, creatinine 0.96. Albumin 3.3. Urinalysis is negative. Influenza testing negative. Patient is currently on a clear liquid diet and tolerating. CT of the abdomen and pelvis with contrast reveals mildly dilated proximal small bowel. No transition point seen. This could relate to partial mechanical obstruction or ileus. CTA of the chest shows mild scarring and subsegmental atelectasis at the lung bases improved compared to last exam. No evidence of p ulmonary embolism. The patient during this stay developed a significant rash in the cefepime was transition to ceftazidime and she had improvement of her rash. She was discharged home to complete her course of antibiotic therapy on 07/25/2018. Patient however again developed fever in the home setting increasing fatigue and malaise, and then developed some abdominal discomfort and diarrhea. He c ontinued to have complaints of her ongoing chest pain. Patient believed she had temperature 102 at home [facility] emergency center with her shortness of breath is admitted for further intervention. Riley was without fever until this afternoon she again has not 1 fever. She feels very poorly very short of breath. Review of Systems Constitutional: Reports chills, Reports fatigue, Reports fever, Reports lethargy, Reports malaise, Reports poor appetite, Reports weakness Eyes: denies blurred vision, denies pain Ears, nose, mouth and throat: Denies dental pain, Denies dysphagia, Denies headache, Denies mouth pain, Denies sore throat, Denies vertigo Cardiovascular: Reports decreased exercise tolerance, Reports dyspnea on exertion, Denies chest pain, Denies edema, Denies leg edema, Denies shortness of breath, Denies syncope Respiratory: Reports dyspnea, Reports home oxygen, denies hemoptysis but his cough in the chronic right-sided chest pain Gastrointestinal: Reports loss of appetite, Reports nausea, Denies abdominal pain, Denies change in bowel habits, Denies constipation, Denies diarrhea, Denies hematemesis, Denies melena, Denies vomiting Genitourinary: Denies dysuria, Denies hematuria, Denies urgency, Denies urinary frequency Musculoskeletal: Denies frequent falls, Denies gait dysfunction, Denies myalgias Integumentary: Chronic rash to her large abdominal pannus Neurological: Denies aphasia, Denies change in mentation, Denies confusion, Denies gait dysfunction, Denies numbness, Denies weakness Psychiatric: Denies anxiety, Denies depression Endocrine: As fatigue weight gain Past Medical History Past Medical History: Blood Disorder, Coronary Artery Disease (CAD), Heart Failure, COPD, Deep Vein Thrombosis (DVT), Fibromyalgia, Hyperlipidemia, Hypertension, Myocardial Infarction (AL), Pneumonia, Pulmonary Embolus (PE), Thyroid Disorder Additional Past Medical History / Comment(s): Sarcoidosis,polycythemia, bilateral PE's, bilateral DVTs, degenerative disk disorder, history of a AL and ventilator dependent respiratory failure with MRSA pneumonia, Viral meningitis in October 2014. Pulmonary fibrosis, home 0xygen at 3l n/c, recent pneumonia Last Myocardial Infarction Date:: February 15, 2013 History of Any Multi-Drug Resistant Organisms: MRSA Year Discovered:: 11/09/17 MDRO Source:: PLEURAL FLUID Past Surgical History: Section, Cholecystectomy, Heart Catheterization, Hernia Repair, Orthopedic Surgery Additional Past Surgical History / Comment(s): Lt ankle surgery, several bronchosopies Past Anesthesia/Blood Transfusion Reactions: Previous Problems w/ Anesthesia Additional Past Anesthesia/Blood Transfusion Reaction / Comm: previously charted -pt stated that last April she coded possbily due to anesthetic-during bronchoscopy procedure with Dr Hicks Past Psychological History: Anxiety Smoking Status: Former smoker Past Alcohol Use History: None Reported Past Drug Use History: None Reported - Past Family History Father Family Medical History: Blood Disorder, Deep Vein Thrombosis (DVT), Myocardial Infarction (AL), Pulmonary Embolus Additional Family Medical History / Comment(s): polycythemia Mother Family Medical History: Deep Vein Thrombosis (DVT) Additional Family Medical History / Comment(s): DDD Sister(s) Family Medical History: No Reported History Brother(s) Family Medical History: No Reported History Son(s) Family Medical History: No Reported History Daughter(s) Family Medical History: No Reported History Medications and Allergies Home Medications and Allergies Comment(s): Current Medications Acetaminophen (Tylenol Tab) 650 mg PO Q6HR PRN PRN Reason: Fever and/ or Pain Last Admin: 07/23/18 23:21 Dose: 650 mg Documented by: Albuterol/Ipratropium (Duoneb 0.5 Mg-3 Mg/3 Ml Soln) 3 ml INHALATION QID PRN PRN Reason: sob Last Admin: 07/23/18 20:57 Dose: 3 ml Documented by: Alprazolam (Xanax) 0.5 mg PO TID PRN PRN Reason: Anxiety Last Admin: 07/23/18 22:25 Dose: 0.5 mg Documented by: Baclofen (Lioresal) 20 mg PO Q8H PRN PRN Reason: Muscle Pain Docusate Sodium (Colace) 100 mg PO BID PRN PRN Reason: Constipation Enoxaparin Sodium (Lovenox) 100 mg SQ Q12HR [facility] Last Admin: 07/23/18 21:09 Dose: 100 mg Documented by: Famotidine (Pepcid) 20 mg PO Q12HR [facility] Last Admin: 07/23/18 21:09 Dose: 20 mg Documented by: Fluoxetine HCl (Prozac) 20 mg PO DAILY [facility] Last Admin: 07/23/18 06:52 Dose: 20 mg Documented by: Ceftazidime 2 gm/ Sodium (Chloride) 100 mls @ 100 mls/hr IVPB Q8H [facility] Last Admin: 07/23/18 20:09 Dose: 100 mls/hr Documented by: Levofloxacin 500 mg/ IV (Solution) 100 mls @ 100 mls/hr IVPB Q24H [facility] Last Admin: 07/23/18 23:21 Dose: 100 mls/hr Documented by: Sodium Chloride (Saline 0.9%) 1,000 mls @ 75 mls/hr IV .[id number] [facility] Last Admin: 07/23/18 23:17 Dose: 75 mls/hr Documented by: Lamotrigine (Lamictal) 200 mg PO DAILY [facility] Last Admin: 07/23/18 06:53 Dose: 200 mg Documented by: Methylprednisolone Sodium Succinate (Solu-Medrol) 40 mg IV Q12HR [facility] Last Admin: 07/23/18 23:21 Dose: 40 mg Documented by: Metoprolol Tartrate (Lopressor) 50 mg PO BID [facility] Last Admin: 07/23/18 21:08 Dose: 50 mg Documented by: Mirtazapine (Remeron) 45 mg PO HS [facility] Last Admin: 07/23/18 22:25 Dose: 45 mg Documented by: Miscellaneous Information (Coumadin Per Pharmacy) 0 each MISCELLANE DIRECTED PRN PRN Reason: Hx PE Morphine Sulfate (Ms Contin) 30 mg PO Q6H PRN PRN Reason: Pain Last Admin: 07/23/18 11:57 Dose: 30 mg Documented by: Morphine Sulfate (Morphine Sulfate (Inj)) 2 mg IVP Q4H PRN PRN Reason: Pain/Discomfort Last Admin: 07/23/18 19:20 Dose: 2 mg Documented by: Naloxone HCl (Narcan) 0.2 mg IV Q2M PRN PRN Reason: Opioid Reversal Potassium Chloride (K-Dur 20) 20 meq PO BID [facility] Last Admin: 07/23/18 21:08 Dose: 20 meq Documented by: Pregabalin (Lyrica) 150 mg PO BID [facility] Last Admin: 07/23/18 21:08 Dose: 150 mg Documented by: Trimethobenzamide HCl (Tigan) 300 mg PO QID PRN PRN Reason: Nausea And Vomiting Warfarin Sodium (Coumadin) 10 mg PO DAILY@1800 [facility] Last Admin: 07/23/18 15:18 Dose: 10 mg Documented by: Warfarin Sodium (Coumadin) 2 mg PO DAILY@1800 [facility] Last Admin: 07/23/18 15:18 Dose: 2 mg Documented by: Home Medications Medication Instructions Recorded Confirmed Type FLUoxetine HCL [PROzac] 20 mg PO DAILY #30 capsule 08/20/15 07/21/18 Rx Metoprolol Tartrate [Lopressor] 50 mg PO BID #60 tab 08/20/15 07/21/18 Rx lamoTRIgine [LaMICtal] 200 mg PO DAILY 03/22/16 07/21/18 History Bumetanide 4 mg PO QAM 10/18/16 07/21/18 History Butalb/APAP/Caff 50-325-40Mg 1 tab PO Q4H PRN 10/18/16 07/21/18 History [Fioricet 50-325-40] Mirtazapine [Remeron] 45 mg PO HS 04/10/17 07/21/18 History ALPRAZolam [Xanax] 0.5 mg PO TID PRN 06/06/17 07/21/18 History Bumetanide [BUMEX] 2 mg PO DAILY@1200 09/16/17 07/21/18 History Pregabalin [Lyrica] 150 mg PO BID 09/16/17 07/21/18 History Baclofen [Lioresal] 20 mg PO Q8H PRN 10/09/17 07/21/18 History Morphine Sulfate ER [Ms Contin] 30 mg PO Q6H PRN 11/03/17 07/21/18 History Nystatin 100,000 Unit/gm Powd 1 applic TOPICAL BID 11/04/17 07/21/18 History [Mycostatin Powder] Promethazine/Dextromethorphan 5 ml PO Q6H PRN 11/04/17 07/21/18 History [Promethazine-Dm Solution] Docusate [Colace] 100 mg PO BID PRN #60 cap 11/10/17 07/21/18 Rx Potassium Chloride ER [K-Dur 20] 20 meq PO DAILY #30 tab.er.prt 11/10/17 07/21/18 Rx Sennosides-Docusate Sodium 2 tab PO BID PRN 12/07/17 07/21/18 History [Senokot-S] Hydrocodone/Acetaminophen [[place] 1 tab PO Q6H PRN 3 Days #12 tab 12/09/17 07/21/18 Rx 10-325] Warfarin [Coumadin] 10 mg PO HS 01/20/18 07/21/18 History Ipratropium-Albuterol Nebulize 3 ml INHALATION RT-QID PRN 05/22/18 07/21/18 History [Duoneb 0.5 mg-3 mg/3 ml Soln] Meclizine HCl 25 mg PO TID PRN 05/22/18 07/21/18 History Ondansetron [Zofran ODT] 4 mg PO Q6H PRN 06/24/18 07/21/18 History cefTAZidime [Fortaz] 2 gm IVP Q8HR #42 vial 07/11/18 07/21/18 Rx Warfarin [Coumadin] 2 mg PO HS 07/21/18 07/21/18 History Allergies Allergy/AdvReac Type Severity Reaction Status Date / Time cefepime [From Maxipime] Allergy Severe Rash/Hives Verified 07/21/18 22:38 Iodinated Contrast- Oral and Allergy Severe Rash/Hives Verified 07/21/18 22:38 IV Dye ketorolac tromethamine Allergy Severe Anaphylaxis Verified 07/21/18 22:38 [From Toradol] adhesive Allergy Rash/Hives Verified 07/21/18 22:38 rivaroxaban [From Xarelto] Allergy Rash/Hives Verified 07/21/18 22:38 sumatriptan [From Imitrex] Allergy Anaphylaxis Verified 07/21/18 22:38 sumatriptan succinate Allergy Anaphylaxis Verified 07/21/18 22:38 [From Imitrex] tramadol Allergy Anaphylaxis Verified 07/21/18 22:38 iodine AdvReac Intermediate Itching/severe Verified 07/21/18 22:38 hives vancomycin AdvReac Itching Verified 07/21/18 22:38 Rich wipes Allergy Severe Rash/Hives Uncoded 07/21/18 22:38 Physical Exam Vitals: Vital Signs Temp Pulse Pulse Resp BP Pulse Ox 07/23/18 23:09 101.4 F H 96 18 108/72 96 07/23/18 21:08 80 07/23/18 21:05 102.5 F H 107 H 20 91/61 97 07/23/18 20:58 78 07/23/18 19:30 101.3 F H 07/23/18 16:09 80 07/23/18 16:01 76 07/23/18 14:24 100.3 F H 91 16 100/59 92 L 07/23/18 12:16 82 07/23/18 12:03 82 07/23/18 10:59 99.2 F 07/23/18 07:58 101.6 F H 07/23/18 07:17 80 07/23/18 07:03 74 07/23/18 05:32 100.4 F H 106 H 22 112/47 96 Intake and Output 07/23/18 07/23/18 07/24/18 14:59 22:59 06:59 Other: Voiding Method Toilet Toilet # Voids 2 2 This is a 48-year-old obese female. Patient laying on her left side complains of feeling miserable she has shortness of breath and fatigue. It has been going right chest discomfort. HEENT: Anicteric conjunctiva are pink and moist nasal mucosa grossly intact without significant lesions, there is no thrush. Oral pharynx without edema or erythema. Neck: The neck is supple without significant lymphadenopathy or thyromegaly. Lungs: There is markedly diminished breath sounds at the right posterior aspect of the chest. Anteriorly there are symmetrical breath sounds. There are some wheezes in the left chest right posterior chest was just a scattered crackle. There are no amphoric sounds there is no tracheal shift Heart: Regular rate and rhythm with an audible S1-S2, no S3 no S4. There is no significant murmur click or rub, PMI was nondisplaced. Abdomen: Obese, Positive bowel sounds soft and nontender without palpable masses or organomegaly. There was no guarding or rebound. Extremities: The upper extremities have excellent pulses they are symmetric, no significant petechiae or telangiectasia. No splinter hemorrhages were noted. Midline is noted to the left upper arm without tenderness, erythema, drainage. No pedal edema The peripheral pulses were 2+ and symmetric. Neuro: Awake alert oriented to person place and time. There are no acute new gross focal sensory motor deficits. Results CBC & Chem 7: 07/23/18 09:14 07/23/18 09:14 Labs: Abnormal Lab Results - Last 24 Hours (Table) 07/23/18 07/23/18 07/23/18 Range/Units 09:14 09:14 09:14 RDW 15.6 H (11.5-15.5) % PT 13.3 H (9.0-12.0) sec INR 1.3 H (<1.2) Chloride 109 H (98-107) mmol/L Carbon Dioxide 21 L (22-30) mmol/L BUN 6 L (7-17) mg/dL Calcium 7.5 L (8.4-10.2) mg/dL Microbiology - Last 24 Hours (Table) 07/21/18 19:43 Blood Culture - Preliminary Blood No Growth after 48 hours Laboratory Results WBC 6.9 k/uL (3.8-10.6) 07/23/18 09:14 RBC 4.14 m/uL (3.80-5.40) 07/23/18 09:14 Hgb 12.4 gm/dL (11.4-16.0) 07/23/18 09:14 Hct 37.5 % (34.0-46.0) 07/23/18 09:14 MCV 90.8 fL (80.0-100.0) 07/23/18 09:14 MCH 30.1 pg (25.0-35.0) 07/23/18 09:14 MCHC 33.1 g/dL (31.0-37.0) 07/23/18 09:14 RDW 15.6 % (11.5-15.5) H 07/23/18 09:14 Plt Count 260 k/uL (150-450) 07/23/18 09:14 Neutrophils % 65 % 07/23/18 09:14 Lymphocytes % 22 % 07/23/18 09:14 Monocytes % 6 % 07/23/18 09:14 Eosinophils % 4 % 07/23/18 09:14 Basophils % 0 % 07/23/18 09:14 Neutrophils # 4.5 k/uL (1.3-7.7) 07/23/18 09:14 Lymphocytes # 1.5 k/uL (1.0-4.8) 07/23/18 09:14 Monocytes # 0.4 k/uL (0-1.0) 07/23/18 09:14 Eosinophils # 0.2 k/uL (0-0.7) 07/23/18 09:14 Basophils # 0.0 k/uL (0-0.2) 07/23/18 09:14 PT 13.3 sec (9.0-12.0) H 07/23/18 09:14 INR 1.3 (<1.2) H 07/23/18 09:14 Sodium 137 mmol/L (137-145) 07/23/18 09:14 Potassium 4.1 mmol/L (3.5-5.1) 07/23/18 09:14 Chloride 109 mmol/L (98-107) H 07/23/18 09:14 Carbon Dioxide 21 mmol/L (22-30) L 07/23/18 09:14 Anion Gap 7 mmol/L 07/23/18 09:14 BUN 6 mg/dL (7-17) L 07/23/18 09:14 Creatinine 0.65 mg/dL (0.52-1.04) 07/23/18 09:14 Est GFR (CKD-EPI)AfAm >90 (>60 ml/min/1.73 sqM) 07/23/18 09:14 Est GFR (CKD-EPI)NonAf >90 (>60 ml/min/1.73 sqM) 07/23/18 09:14 Glucose 96 mg/dL (74-99) 07/23/18 09:14 Plasma Lactic Acid Chuck 1.7 mmol/L (0.7-2.0) 07/21/18 19:43 Calcium 7.5 mg/dL (8.4-10.2) L 07/23/18 09:14 Magnesium 1.7 mg/dL (1.6-2.3) 07/23/18 09:14 Total Bilirubin 0.4 mg/dL (0.2-1.3) 07/21/18 19:43 Conjugated Bilirubin 0.0 mg/dL (0.0-0.3) 07/21/18 19:43 Unconjugated Bilirubin 0.2 mg/dL (0.0-1.1) 07/21/18 19:43 Delta Bilirubin 0.2 mg/dL (0.0-0.2) 07/21/18 19:43 AST 27 U/L (14-36) 07/21/18 19:43 ALT 42 U/L (9-52) 07/21/18 19:43 Alkaline Phosphatase 84 U/L (38-126) 07/21/18 19:43 Troponin I <0.012 ng/mL (0.000-0.034) 07/21/18 19:43 Total Protein 6.7 g/dL (6.3-8.2) 07/21/18 19:43 Albumin 3.9 g/dL (3.5-5.0) 07/21/18 19:43 Lipase 56 U/L (23-300) 07/21/18 19:43 Urine Color Yellow 07/21/18 23:45 Urine Appearance Clear (Clear) 07/21/18 23:45 Urine pH 6.0 (5.0-8.0) 07/21/18 23:45 Ur Specific [place] 1.018 (1.001-1.035) 07/21/18 23:45 Urine Protein Trace (Negative) H 07/21/18 23:45 Urine Glucose (UA) Negative (Negative) 07/21/18 23:45 Urine Ketones Negative (Negative) 07/21/18 23:45 Urine Blood Negative (Negative) 07/21/18 23:45 Urine Nitrite Negative (Negative) 07/21/18 23:45 Urine Bilirubin Negative (Negative) 07/21/18 23:45 Urine Urobilinogen <2.0 mg/dL (<2.0) 07/21/18 23:45 Ur Leukocyte Esterase Negative (Negative) 07/21/18 23:45 C. difficile (EIA) Intrp Negative (Negative) 07/22/18 01:00 Influenza Type A RNA Not Detected (Not Detectd) 07/22/18 15:30 Influenza Type B (PCR) Not Detected (Not Detectd) 07/22/18 15:30 Microbiology 07/21/18 19:43 Blood Blood Culture - Preliminary No Growth after [address] scan - chest: report reviewed (Worsening pneumonic infiltration) Assessment and Plan (1) Pseudomonas pneumonia Narrative/Plan: 48-year-old woman who has multiple medical troubles included sarcoidosis, obesity and steroid dependent lung disease presents to hospital with complaints of fever originally was not having much fever but is now having fever this afternoon. She was having profuse diarrhea that has resolved. C. diff is negative. She does not have an extensive leukocytosis but feels very poorly. CT of the chest showed some evidence of worsening of underlying pneumonic dilan nges especially in the right chest. She's been on ceftazidime at home but is now having increasing fever. The PICC line in the right arm is intact without erythema or tenderness is functioning well. Patient is with fever concerns to failure of current ceftazidime therapy which will transition to meropenem. Levaquin continues for now. Multiple cultures are process. Patient should be seen by pulmonary medicine for further evaluation and possible repeat bronchoscopy for further deep specimens given her immunocompromised status from her large ongoing doses of steroids. Current Visit: Yes Status: Acute Code(s): J15.1 - PNEUMONIA DUE TO PSEUDOMONAS SNOMED Code(s): 52114756 (2) Fever Current Visit: Yes Status: Acute Code(s): R50.9 - FEVER, UNSPECIFIED SNOMED Code(s): 473943274 (3) Obesity Current Visit: Yes Status: Acute Code(s): E66.9 - OBESITY, UNSPECIFIED SNOMED Code(s): 800250731 (4) Sarcoidosis Current Visit: No Status: Acute Code(s): D86.9 - SARCOIDOSIS, UNSPECIFIED SNOMED Code(s): 97551525
[2018-07-24] MEDS: MEROPENEM 2 GM in SODIUM CHLORIDE 0.9% 100 ML IVPB SCH ×3 (00:46→15:54)
[2018-07-24] MEDS: MORPHINE SULFATE 2 MG/ML SYRINGE IVP PRN ×5 (04:41→21:02)
[2018-07-24] MEDS: ALPRAZolam 0.5 MG TAB PO PRN ×2 (06:33→19:05)
[2018-07-24] MEDS: IPRATROPIUM-ALBUTEROL 3 ML NEB INHALATION PRN (07:05)
[2018-07-24] MEDS: ENOXAPARIN 100 MG/ML SYRINGE SQ SCH ×2 (08:16→21:02)
[2018-07-24] MEDS: FLUoxetine HCL 20 MG CAP PO SCH (08:16)
[2018-07-24] MEDS: lamoTRIgine 100 MG TAB PO SCH (08:16)
[2018-07-24] MEDS: methylPREDNISolone SOD SUCCI 40 MG/ML 1 ML VIAL IV SCH (08:17)
[2018-07-24] MEDS: METOPROLOL TARTRATE 50 MG TAB PO SCH ×2 (08:17→22:07)
[2018-07-24] MEDS: FAMOTIDINE 20 MG TAB PO SCH ×2 (08:17→22:07)
[2018-07-24] MEDS: PREGABALIN 75 MG CAP PO SCH ×2 (08:17→22:07)
[2018-07-24] MEDS: POTASSIUM CHLORIDE ER 20 MEQ TAB.ER PO SCH ×2 (08:17→22:07)
[2018-07-24 08:44] LABS: Basophils % (A) 0 %; Eosinophils % (A) 1 %; HCT 37.5 % (34.0-46.0); HGB 12.9 gm/dL (11.4-16.0); Lymphocytes # (A) 0.9 k/uL (1.0-4.8); Lymphocytes % (A) 16 %; MCH 31.1 pg (25.0-35.0); MCHC 34.3 g/dL (31.0-37.0); MCV 90.7 fL (80.0-100.0); Monocytes # (A) 0.3 k/uL (0-1.0); Monocytes % (A) 6 %; Neutrophils # (A) 4.3 k/uL (1.3-7.7); Neutrophils % (A) 75 %; Platelet Count 238 k/uL (150-450); RBC 4.14 m/uL (3.80-5.40); RDW 14.6 % (11.5-15.5); WBC 5.8 k/uL (3.8-10.6)
[2018-07-24] MEDS: TRIMETHOBENZAMIDE 300 MG CAP PO PRN ×2 (08:49→20:27)
[2018-07-24 08:52] LABS: INR 1.4 (<1.2); Prothrombin Time 13.8 sec (9.0-12.0)
[2018-07-24 08:57] LABS: Anion Gap 6 mmol/L; Blood Urea Nitrogen 7 mg/dL (7-17); Calcium 7.4 mg/dL (8.4-10.2); Carbon Dioxide 27 mmol/L (22-30); Chloride 104 mmol/L (98-107); Glucose 139 mg/dL (74-99); Potassium 3.5 mmol/L (3.5-5.1); Sodium 137 mmol/L (137-145)
[2018-07-24] MEDS: IPRATROPIUM-ALBUTEROL 3 ML NEB INHALATION SCH ×3 (10:58→19:16)
[2018-07-24] MEDS: SODIUM CHLORIDE 0.9% 1,000 ML IV SCH ×2 (11:28→22:07)
--- NOTE | 2018-07-24 13:18 | P.PN ---
Subjective this is a pleasant 48 years old female with past medical history of COPD, congestive heart failure, DVT, hyperlipidemia, coronary artery disease, hy pertension, pulmonary embolism on and coagulation, hysterectomy, hypothyroidism,polycythemia, fibromyalgia, bipolar disorder. 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 She was on IV antibiotics via PICC line. This t cooper patient presents with fever on and off for about one week, she states that she measured did at home it was 100.2F. She denies abdominal pain, however she has nausea but no vomiting. She states that she has watery diarrhea every time she eats. Also patient complaining of from the same severe right-sided pleuritic chest pain. As per patient she still have 64 doses of antibiotics ceftazidime every 8 hours, which is about 14-15 more days as per patient. Patient also telling me she was not following up with infectious disease team as she supposed to be in the office. However she stated that she is compliant to her antibiotics and coumadine. Her INR on admission was subtherapeutic at 0.9. Vitas looks stable and since admission patient has been afebrile. Risks of vitals look is stable. She is out home oxygen with 4 L via NC, currently she is the same and saturating 99%. On admission she has mild leukocytosis which is improved to normal today. Potassium was significantly low 2.5, replaced with oral therapy to 3.4 today. Urinalysis is negative. C. diff test is negative. Negative CT of the head. CT of the abdomen and pelvis without contrast showing atelectasis of the lung bases, no sign of acute abdomen and pelvis Patient is constantly asking for pain medication for her right-sided pleuritic chest pain. 07/23/2018 Patient is awake and alert today, not in distress. She is tachypneic and she still complains from right sided chest pain although her pain is better contrast compared to yesterday. She still have some coughing. She denies abdominal pain or diarrhea. And abdominal exam looks benign. We'll have fever today of 101.6 infectious disease has been consulted. Patient is currently on cefepime. Chest x-ray was negative, as well as CT of the abdomen and pelvis was unremarkable for source of infection. We'll do a CAT scan of the chest without contrast. Her INR today is 1.3, continue with Coumadin and Lovenox bridging. Continue with pain management. Blood culture are negative so far. Patient is asking to keep the morphine medication for her . Explained the risk for her and we going to taper its and wonder today and she agrees. 07/24/2018 Patient breathing is a little bit better today. Patient pain is been treated with morphine and looks controlled. She is fully awake and oriented afterward lower the dose of morphine from 4 down to 2 mg. Vitals are stable. Labs reviewed. Coumadin 1.4. She still remains on Lovenox for bridging. Infectious disease input is appreciated, they recommended antibiotic therapy with meropenem and Levaquin for now. Pulmonary team evaluated the patient, pending their recommendation. CONSTITUTIONAL: No fever, no malaise, no fatigue. HEENT: No recent visual problems or hearing problems. Denied any sore throat. CARDIOVASCULAR: No orthopnea, PND, no palpitations, no syncope. PULMONARY: no hemoptysis. GASTROINTESTINAL: no nausea, no vomiting, no abdominal pain. Normoactive bowel sounds. NEUROLOGICAL: No headaches, no weakness, no numbness. HEMATOLOGICAL: Denies any bleeding or petechiae. GENITOURINARY: Denies any burning micturition, frequency, or urgency. MUSCULOSKELETAL/RHEUMATOLOGICAL: Denies any joint pain, swelling, or any muscle pain. ENDOCRINE: Denies any polyuria or polydipsia. Medication: Tylenol, albuterol, Xanax, baclofen, ceftazidime, Colace, Lovenox, Pepcid, Prozac, Lamictal, magnesium, Antivert, Lopressor, Romeron, coumadine, Zofran, MS Contin, potassium chloride, Lyrica, Objective - Vital Signs Vital signs: Vital Signs Temp 99.2 F 07/24/18 05:10 Pulse 96 07/24/18 11:11 Resp 18 07/24/18 08:00 BP 113/73 07/24/18 05:10 Pulse Ox 94 L 07/24/18 07:08 Intake & Output 07/23/18 07/24/18 07/24/18 18:59 06:59 18:59 Other: Voiding Method Toilet Toilet # Voids 2 1 2 - Exam GENERAL: The patient is alert and oriented x3, not in any acute distress. Obese. HEENT: Pupils are round and equally reacting to light. EOMI. No scleral icterus. No conjunctival pallor. Normocephalic, atraumatic. No pharyngeal erythema. No thyromegaly. CARDIOVASCULAR: S1 and S2 present. No murmurs, rubs, or gallops. PULMONARY: Chest is clear to auscultation, no wheezing or crackles. ABDOMEN: Soft, nontender, nondistended, normoactive bowel sounds. No palpable organomegaly. MUSCULOSKELETAL: No joint swelling or deformity. EXTREMITIES: No cyanosis, clubbing, or pedal edema. NEUROLOGICAL: Gross neurological examination did not reveal any focal deficits. SKIN: No rashes. - Labs CBC & Chem 7: 07/24/18 08:30 07/24/18 08:30 Labs: Abnormal Lab Results - Last 24 Hours (Table) 07/24/18 07/24/18 07/24/18 Range/Units 08:30 08:30 08:30 Lymphocytes # 0.9 L (1.0-4.8) k/uL PT 13.8 H (9.0-12.0) sec INR 1.4 H (<1.2) Glucose 139 H (74-99) mg/dL Calcium 7.4 L (8.4-10.2) mg/dL Microbiology - Last 24 Hours (Table) 07/21/18 19:43 Blood Culture - Preliminary Blood No Growth after 48 hours Assessment and Plan Assessment: Fever and diarrhea on admission, . C. diff is negative. And no source of infection Possible pneumonia, and antibiotic. Differential diagnosis cryptogenic organizing pneumonia, versus others. Right-sided pleuritic chest pain, chronic/recurrent. History of PE on Coumadin. Subtherapeutic INR. History of pseudomonas infection in her pulmonary passages or, on ceftazidime with PICC line. History of COPD History of congestive heart failure Hyperlipidemia History of coronary artery disease Hypertension History of hysterectomy Hypothyroidism History of fibromyalgia and bipolar disorder Plan: This is a pleasant 48 years old female presents with diarrhea, recurrent LidoSite chest pleuritic chest pain. Possible fever. Patient is been afebrile since admission. Consult infectious disease team. Continue with pain medicine . Patient is counseled and she still wants IV pain medication for the first 24 hours before switch to oral therapy. Risks benefits and alternatives are explained for the patient. Replace electrolytes. Labs and medication were reviewed.. Continue same treatment. Continue with symptomatic treatment. Resume home medication. Monitor lytes and vitals. DVT and GI prophylaxis. Further recommendations of the clinical course of the patient DVT prophylaxis: Lovenox and Coumadin GI Prophylaxis: Pepcid Prognosis is guarded
[2018-07-24] MEDS: ACETAMINOPHEN TAB 325 MG TAB PO PRN ×2 (15:33→22:12)
[2018-07-24] MEDS: guaiFENesin SYRUP 100MG/5ML 200 MG/10 ML CUP PO PRN (15:34)
--- NOTE | 2018-07-24 15:38 | CONS ---
CONSULTATION PULMONARY/CRITICAL CARE CONSULTATION: DATE OF SERVICE: 07/24/2018 This is a 48-year-old female well known to our service. She apparently developed a fever at home as well as watery diarrhea. She apparently had been on antibiotics at home per Infectious Diseases for a recent episode of Pseudomonas tracheobronchitis. She denies any history of C. difficile colitis in the past. She was also found to be weak and she was having abdominal cramps as well as nausea. For that reason, she was admitted to the hospital with a diagnosis of dehydration. She was recently discharged from the hospital on July 17. On that admission, I had done a bronchoscopy and she was discovered on that admission to have Pseudomonas in her lower respiratory tract. She did not have any vomiting. There was no chest pain or chest discomfort. There is no dysuria. She denies any worsening shortness of breath. She does have a longstanding history of chronic lung disease including sarcoidosis. On today's chest x-ray, it looks relatively normal. On the CT scan that was done, it suggested a mosaic pattern and/or a tree and bud appearance. This could be seen with genic organizing pneumonia, bronchiolitis obliterans organizing pneumonia, atypical mycobacteria and/or atypical infections or other inflammatory lesions. HOME MEDICATIONS: Include Lamictal, bumetanide which is Bumex, Fioricet, Remeron, Xanax, Lyrica, Lioresal, morphine sulfate, Mycostatin powder, promethazine syrup, Senokot, warfarin, albuterol, Atrovent updrafts, Antivert, Zofran, Prozac, Lopressor, Colace, potassium, [place], and Fortaz. ALLERGIES: Are multiple, include MAXIPIME, IVP DYE, TORADOL, ADHESIVES, XARELTO, IMITREX, TRAMADOL, IODINE, VANCOMYCIN and NICOL WIPES. MEDICAL HISTORY: Positive for CAD, heart failure, COPD, deep venous thrombosis, fibromyalgia, hyperlipidemia, hypertension, myocardial infarction, pneumonia, pulmonary embolism, and polycythemia. She also has a previous history of DVT, degenerative disc disorder, previous myocardial infarction and ventilator-dependent respiratory failure. The patient has also suffered from viral meningitis and MRSA pneumonia. SURGICAL HISTORY: Includes multiple bronchoscopies, , cholecystectomy, heart catheterization, hernia repair, left ankle surgery and some other minor procedures. SOCIAL HISTORY: Positive for previous tobacco use. She does not smoke currently. She denies any alcohol history or illicit drug history. FAMILY HISTORY: Positive for deep venous thrombosis and myocardial infarction along with polycythemia. OCCUPATION HISTORY: Noncontributory. Her diagnosis of sarcoidosis apparently was made at [facility] by transbronchial biopsy. Apparently that biopsy was done by Dr. Jason Araiza. REVIEW OF SYSTEMS: CONSTITUTIONAL: Weakness. NEUROLOGIC: Negative. HEENT: Negative. CARDIOVASCULAR: Negative. PULMONARY: Mild shortness of breath, pretty much at her baseline. GI: Diarrhea. : Negative. RHEUMATOLOGIC: Negative. IMMUNOLOGIC: Negative. ENDOCRINOLOGIC: Negative. Current vital signs are reviewed, they include a temperature of 99.2, heart rate 96, respiratory rate 18, blood pressure 113/73 mean 86 and 3 L saturations are between 94% and 95%. The patient appears to be in no distress. No respiratory distress. No audible wheezing. No conversational dyspnea. No use of accessory muscles. HEENT: Examination is grossly unremarkable. Mucous membranes are moist. She is on nasal O2 at 3 L. NECK: Supple. Full range of motion. No adenopathy or thyromegaly. Neck veins are flat. CARDIOVASCULAR: Examination reveals regular rhythm and rate. Heart sounds are distant. S1, S2 normal. Heart rate about 90 beats per minute. LUNGS: Reveal relatively clear breath sounds. A few scattered mild expiratory wheezes. No crackles or rhonchi. Breath sounds are diminished bilaterally. Slight prolongation on forced maneuver. ABDOMEN: Obese. Bowel sounds are heard. EXTREMITIES: Intact. No cyanosis, clubbing, or edema. Skin: Without rash. NEUROLOGIC: Examination is brief but nonfocal. LABS: Reviewed. White count 5.8, hemoglobin 12.9, hematocrit 37.5, platelet count 238,000. PT 13.8, INR 1.4. Sodium, potassium, chloride, CO2 all normal. BUN and creatinine were 7 and 0.61, anion gap is 6. Influenza studies were negative. C difficile testing was negative. Medications are reviewed. Dr. Lott, the Infectious Disease doctor has adjusted the patient's antibiotics. ASSESSMENT: 1. Fever associated with watery diarrhea and weakness, much improved. 2. Recent bronchoscopy revealing Pseudomonas aeruginosa tracheobronchitis, on home antibiotic therapy. 3. History of coronary artery disease. 4. History of deep venous thrombosis and pulmonary embolism. 5. Fibromyalgia. 6. Hyperlipidemia. 7. Hypertension. 8. Previous myocardial infarction. 9. History of congestive heart failure. 10.History of pneumonia. 11.Previous lung biopsy apparently showing evidence of sarcoidosis. 12.History of polycythemia. 13.Degenerative disc disease. 14.History of ventilator-dependent respiratory failure. PLAN: The patient's medications are reviewed. I basically told her that we let her get through this admission. Her CT scan is suggestive of some sort of either infectious or and/or inflammatory process. There is a number of possible etiologies as noted above. The patient may benefit from a lung biopsy. She has been in and out of the hospital frequently recently. No additional recommendations are made. Will continue to follow. Prognosis is guarded. Medications are reviewed. MMODL / IJN: [id number] / [id number]
[2018-07-24] MEDS: WARFARIN 2 MG TAB PO SCH (17:04)
[2018-07-24] MEDS: WARFARIN 10 MG TAB PO SCH (17:04)
[2018-07-24] MEDS: MIRTAZAPINE 45 MG TABLET PO SCH (22:07)
[2018-07-24] MEDS: LEVOFLOXACIN 500 MG TAB PO SCH (22:07)
[2018-07-25] MEDS: MEROPENEM 2 GM in SODIUM CHLORIDE 0.9% 100 ML IVPB SCH ×4 (01:06→23:52)
[2018-07-25] MEDS: MORPHINE SULFATE 2 MG/ML SYRINGE IVP PRN ×5 (01:17→18:18)
[2018-07-25] MEDS: guaiFENesin SYRUP 100MG/5ML 200 MG/10 ML CUP PO PRN ×2 (02:13→22:09)
[2018-07-25] MEDS: BACLOFEN 10 MG TAB PO PRN ×2 (04:14→20:11)
[2018-07-25] MEDS: ALPRAZolam 0.5 MG TAB PO PRN ×3 (04:14→20:11)
[2018-07-25 07:10] LABS: Basophils % (A) 0 %; Eosinophils % (A) 0 %; HCT 37.6 % (34.0-46.0); HGB 12.8 gm/dL (11.4-16.0); Lymphocytes # (A) 0.8 k/uL (1.0-4.8); Lymphocytes % (A) 10 %; MCV 91.3 fL (80.0-100.0); Mean Platelet Volume 7.3; Monocytes # (A) 0.5 k/uL (0-1.0); Monocytes % (A) 7 %; Neutrophils # (A) 6.5 k/uL (1.3-7.7); Neutrophils % (A) 81 %; Platelet Count 201 k/uL (150-450); RBC 4.12 m/uL (3.80-5.40); RDW 14.8 % (11.5-15.5)
[2018-07-25 07:13] LABS: INR 1.3 (<1.2); Prothrombin Time 13.7 sec (9.0-12.0)
[2018-07-25 07:24] LABS: Anion Gap 6 mmol/L; Blood Urea Nitrogen 4 mg/dL (7-17); Calcium 7.6 mg/dL (8.4-10.2); Carbon Dioxide 26 mmol/L (22-30); Chloride 103 mmol/L (98-107); Glucose 139 mg/dL (74-99); Potassium 3.3 mmol/L (3.5-5.1); Sodium 135 mmol/L (137-145)
[2018-07-25] MEDS ORDERED: POTASSIUM CHLORIDE ER 20 MEQ TAB.ER PO STA (07:30)
--- NOTE | 2018-07-25 07:54 | XR ---
EXAMINATION TYPE: XR chest 1V portable DATE OF EXAM: 07/25/2018 Comparison: 07/21/2018 Clinical History: 48-year-old female follow up shortness of breath, patient vomited Findings: Heart borderline enlarged. Mild diffuse interstitial prominence is unchanged. Right PICC tip obscured by underpenetration and mild motion. New consolidation throughout the right lung. Impression: New consolidation throughout the right lung. Aspiration, pneumonia, and atypical pulmonary edema are differential considerations.
[2018-07-25] MEDS: IPRATROPIUM-ALBUTEROL 3 ML NEB INHALATION SCH ×4 (08:53→18:36)
[2018-07-25] MEDS ORDERED: LORazepam 2 MG/ML INJ IV STA (09:22)
[2018-07-25] MEDS: lamoTRIgine 100 MG TAB PO SCH (09:22)
[2018-07-25] MEDS: FLUoxetine HCL 20 MG CAP PO SCH (09:22)
[2018-07-25] MEDS: FAMOTIDINE 20 MG TAB PO SCH ×2 (09:22→20:11)
[2018-07-25] MEDS: PREGABALIN 75 MG CAP PO SCH ×2 (09:23→22:04)
[2018-07-25] MEDS: POTASSIUM CHLORIDE ER 20 MEQ TAB.ER PO SCH ×2 (09:23→23:22)
[2018-07-25] MEDS: ENOXAPARIN 100 MG/ML SYRINGE SQ SCH ×2 (09:23→22:07)
[2018-07-25] MEDS: METOPROLOL TARTRATE 50 MG TAB PO SCH ×2 (09:23→22:06)
[2018-07-25] MEDS: TRIMETHOBENZAMIDE 300 MG CAP PO PRN ×2 (10:35→19:59)
[2018-07-25] MEDS: diphenhydrAMINE 50 MG/ML 1 ML VIAL IVP PRN ×2 (10:36→19:59)
--- NOTE | 2018-07-25 13:40 | P.PN ---
Subjective this is a pleasant 48 years old female with past medical history of COPD, congestive heart failure, DVT, hyperlipidemia, coronary artery disease, hy pertension, pulmonary embolism on and coagulation, hysterectomy, hypothyroidism,polycythemia, fibromyalgia, bipolar disorder. 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 She was on IV antibiotics via PICC line. This t cooper patient presents with fever on and off for about one week, she states that she measured did at home it was 100.2F. She denies abdominal pain, however she has nausea but no vomiting. She states that she has watery diarrhea every time she eats. Also patient complaining of from the same severe right-sided pleuritic chest pain. As per patient she still have 64 doses of antibiotics ceftazidime every 8 hours, which is about 14-15 more days as per patient. Patient also telling me she was not following up with infectious disease team as she supposed to be in the office. However she stated that she is compliant to her antibiotics and coumadine. Her INR on admission was subtherapeutic at 0.9. Vitas looks stable and since admission patient has been afebrile. Risks of vitals look is stable. She is out home oxygen with 4 L via [place], currently she is the same and saturating 99%. On admission she has mild leukocytosis which is improved to normal today. Potassium was significantly low 2.5, replaced with oral therapy to 3.4 today. Urinalysis is negative. C. diff test is negative. Negative CT of the head. CT of the abdomen and pelvis without contrast showing atelectasis of the lung bases, no sign of acute abdomen and pelvis Patient is constantly asking for pain medication for her right-sided pleuritic chest pain. 07/23/2018 Patient is awake and alert today, not in distress. She is tachypneic and she still complains from right sided chest pain although her pain is better contrast compared to yesterday. She still have some coughing. She denies abdominal pain or diarrhea. And abdominal exam looks benign. We'll have fever today of 101.6 infectious disease has been consulted. Patient is currently on cefepime. Chest x-ray was negative, as well as CT of the abdomen and pelvis was unremarkable for source of infection. We'll do a CAT scan of the chest without contrast. Her INR today is 1.3, continue with Coumadin and Lovenox bridging. Continue with pain management. Blood culture are negative so far. Patient is asking to keep the morphine medication for her . Explained the risk for her and we going to taper its and wonder today and she agrees. 07/24/2018 Patient breathing is a little bit better today. Patient pain is been treated with morphine and looks controlled. She is fully awake and oriented afterward lower the dose of morphine from 4 down to 2 mg. Vitals are stable. Labs reviewed. Coumadin 1.4. She still remains on Lovenox for bridging. Infectious disease input is appreciated, they recommended antibiotic therapy with meropenem and Levaquin for now. Pulmonary team evaluated the patient, pending their recommendation. 07/25/2018 Patient is feeling a little bit better today. She was then vomiting and she still complaining from right-sided chest pain. Patient is on oxygen and Yesterday last night patient needed higher oxygen therapy but now is improved again she was on 6 L via Ventimask, however patient switched back to 3 L oxygen via nasal cannula. She still developing fever Which is controlled with Tylenol. Patient is being followed up by pulmonary and infectious disease team. This was discussed with infectious team today. She remains on meropenem and Levaquin. Blood culture results are so far no growth. Patient has tree-in-bud appearance on CAT scan of the lung, Pulmonary team recommended open lung biopsy which is probably is going to [facility] at [facility]. Currently she remains on Coumadin and Lovenox for bridging. CONSTITUTIONAL: No fever, no malaise, no fatigue. HEENT: No recent visual problems or hearing problems. Denied any sore throat. CARDIOVASCULAR: No orthopnea, PND, no palpitations, no syncope. PULMONARY: no hemoptysis. GASTROINTESTINAL: no nausea, no vomiting, no abdominal pain. Normoactive bowel sounds. NEUROLOGICAL: No headaches, no weakness, no numbness. HEMATOLOGICAL: Denies any bleeding or petechiae. GENITOURINARY: Denies any burning micturition, frequency, or urgency. MUSCULOSKELETAL/RHEUMATOLOGICAL: Denies any joint pain, swelling, or any muscle pain. ENDOCRINE: Denies any polyuria or polydipsia. Medication: Tylenol, albuterol, Xanax, baclofen, ceftazidime, Colace, Lovenox, Pepcid, Prozac, Lamictal, magnesium, Antivert, Lopressor, Romeron, coumadine, Zofran, MS Contin, potassium chloride, Lyrica, Objective - Vital Signs Vital signs: Vital Signs Temp 98.6 F 07/25/18 08:45 Pulse 108 H 07/25/18 12:23 Resp 22 07/25/18 08:45 BP 124/68 07/25/18 08:45 Pulse Ox 95 07/25/18 08:45 Intake & Output 07/24/18 07/25/18 07/25/18 18:59 06:59 18:59 Intake Total 120 Output Total 2 Balance 118 Intake: Oral 120 Output: Stool 2 Other: Voiding Method Toilet Toilet # Voids 1 1 1 # Bowel Movements 1 - Exam GENERAL: The patient is alert and oriented x3, not in any acute distress. Obese. HEENT: Pupils are round and equally reacting to light. EOMI. No scleral icterus. No conjunctival pallor. Normocephalic, atraumatic. No pharyngeal erythema. No thyromegaly. CARDIOVASCULAR: S1 and S2 present. No murmurs, rubs, or gallops. PULMONARY: Chest is clear to auscultation, no wheezing or crackles. ABDOMEN: Soft, nontender, nondistended, normoactive bowel sounds. No palpable organomegaly. MUSCULOSKELETAL: No joint swelling or deformity. EXTREMITIES: No cyanosis, clubbing, or pedal edema. NEUROLOGICAL: Gross neurological examination did not reveal any focal deficits. SKIN: No rashes. - Labs CBC & Chem 7: 07/25/18 06:40 07/25/18 06:40 Labs: Abnormal Lab Results - Last 24 Hours (Table) 07/24/18 07/25/18 07/25/18 Range/Units 21:57 06:40 06:40 Lymphocytes # (1.0-4.8) k/uL PT 13.7 H (9.0-12.0) sec INR 1.3 H (<1.2) Sodium 135 L (137-145) mmol/L Potassium 3.3 L (3.5-5.1) mmol/L BUN 4 L (7-17) mg/dL Creatinine 0.51 L (0.52-1.04) mg/dL Glucose 139 H (74-99) mg/dL Plasma Lactic Acid Chuck 2.9 H* (0.7-2.0) mmol/L Calcium 7.6 L (8.4-10.2) mg/dL 07/25/18 Range/Units 06:40 Lymphocytes # 0.8 L (1.0-4.8) k/uL PT (9.0-12.0) sec INR (<1.2) Sodium (137-145) mmol/L Potassium (3.5-5.1) mmol/L BUN (7-17) mg/dL Creatinine (0.52-1.04) mg/dL Glucose (74-99) mg/dL Plasma Lactic Acid Chuck (0.7-2.0) mmol/L Calcium (8.4-10.2) mg/dL Microbiology - Last 24 Hours (Table) 07/24/18 00:22 Blood Culture - Preliminary Blood No Growth after 24 hours 07/24/18 00:07 Blood Culture - Preliminary Blood No Growth after 24 hours 07/21/18 19:43 Blood Culture - Preliminary Blood No Growth after 72 hours Assessment and Plan Assessment: Fever and diarrhea on admission, . C. diff is negative. And no source of infection Possible pneumonia, and antibiotic. Differential diagnosis cryptogenic organizing pneumonia, versus others. Right-sided pleuritic chest pain, chronic/recurrent. History of PE on Coumadin. Subtherapeutic INR. History of pseudomonas infection in her pulmonary passages or, on ceftazidime with PICC line. History of COPD History of congestive heart failure Hyperlipidemia History of coronary artery disease Hypertension History of hysterectomy Hypothyroidism History of fibromyalgia and bipolar disorder Plan: This is a pleasant 48 years old female presents with diarrhea, recurrent LidoSite chest pleuritic chest pain. Possible fever. Patient is been afebrile since admission. Consult infectious disease team. Continue with pain medicine . Patient is counseled and she still wants IV pain medication for the first 24 hours before switch to oral therapy. Risks benefits and alternatives are explained for the patient. Replace electrolytes. Labs and medication were reviewed.. Continue same treatment. Continue with symptomatic treatment. Resume home medication. Monitor lytes and vitals. DVT and GI prophylaxis. Further recommendations of the clinical course of the patient DVT prophylaxis: Lovenox and Coumadin GI Prophylaxis: Pepcid Prognosis is guarded
--- NOTE | 2018-07-25 14:44 | P.PN ---
Subjective Progress Note Date: 07/25/18 Principal diagnosis: Fever associated with watery diarrhea and weakness, recent pseudomonal tracheobronchitis On 07/25/2018 patient seen in follow-up on selective care unit, she is awake and alert, she is in no acute distress, she states she is breathing easier, on today's exam there is better air entry noted bilaterally, with normal and expiratory wheezing, she remains on 3 L of oxygen, with a pulse ox of 95%, low- grade fever last night with a temp of 100.4F. Blood cultures so far showed no growth, patient is on meropenem for history of pseudomonal infection. Patient has an occasional cough with production of clear colored sputum. Addendum patient remains stable, she is on nebulized bronchodilators, she is on the cough syrup. She is on oral anticoagulation for her history of PEs. Infectious disease is following, there plan on setting up patient for a lung biopsy some time after adequately treating the pseudomonal infection. Objective - Vital Signs Vital signs: Vital Signs Temp 98.6 F 07/25/18 08:45 Pulse 108 H 07/25/18 12:23 Resp 22 07/25/18 08:45 BP 124/68 07/25/18 08:45 Pulse Ox 95 07/25/18 08:45 Intake & Output 07/24/18 07/25/18 07/25/18 18:59 06:59 18:59 Intake Total 120 Output Total 2 Balance 118 Intake: Oral 120 Output: Stool 2 Other: Voiding Method Toilet Toilet # Voids 1 1 1 # Bowel Movements 1 - Exam GENERAL EXAM: Alert, pleasant, obese 48-year-old white female, comfortable in no apparent distress. HEAD: Normocephalic/atraumatic. EYES: Normal reaction of pupils, equal size. Conjunctiva pink, sclera white. NOSE: Clear with pink turbinates. THROAT: No erythema or exudates. NECK: No masses, no JVD, no thyroid enlargement, no adenopathy. CHEST: No chest wall deformity. Symmetrical expansion. LUNGS: Equal air entry with better entry noted bilaterally on today's exam compared to yesterday, with minimal end expiratory wheezing on forced exhale maneuver CVS: Regular rate and rhythm, normal S1 and S2, no gallops, no murmurs, no rubs ABDOMEN: Soft, nontender. No hepatosplenomegaly, normal bowel sounds, no guarding or rigidity. EXTREMITIES: No clubbing, no edema, no cyanosis, 2+ pulses and upper and lower extremities. MUSCULOSKELETAL: Muscle strength and tone normal. SPINE: No scoliosis or deformity SKIN: No rashes CENTRAL NERVOUS SYSTEM: Alert and oriented -3. No focal deficits, tone is normal in all 4 extremities. PSYCHIATRIC: Alert and oriented -3. Appropriate affect. Intact judgment and insight. - Labs CBC & Chem 7: 07/25/18 06:40 07/25/18 06:40 Labs: Abnormal Lab Results - Last 24 Hours (Table) 07/24/18 07/25/18 07/25/18 Range/Units 21:57 06:40 06:40 Lymphocytes # (1.0-4.8) k/uL PT 13.7 H (9.0-12.0) sec INR 1.3 H (<1.2) Sodium 135 L (137-145) mmol/L Potassium 3.3 L (3.5-5.1) mmol/L BUN 4 L (7-17) mg/dL Creatinine 0.51 L (0.52-1.04) mg/dL Glucose 139 H (74-99) mg/dL Plasma Lactic Acid Chuck 2.9 H* (0.7-2.0) mmol/L Calcium 7.6 L (8.4-10.2) mg/dL 07/25/18 Range/Units 06:40 Lymphocytes # 0.8 L (1.0-4.8) k/uL PT (9.0-12.0) sec INR (<1.2) Sodium (137-145) mmol/L Potassium (3.5-5.1) mmol/L BUN (7-17) mg/dL Creatinine (0.52-1.04) mg/dL Glucose (74-99) mg/dL Plasma Lactic Acid Chuck (0.7-2.0) mmol/L Calcium (8.4-10.2) mg/dL Microbiology - Last 24 Hours (Table) 07/24/18 00:22 Blood Culture - Preliminary Blood No Growth after 24 hours 07/24/18 00:07 Blood Culture - Preliminary Blood No Growth after 24 hours 07/21/18 19:43 Blood Culture - Preliminary Blood No Growth after 72 hours Assessment and Plan Plan: Assessment: #1. Fever associated with watery diarrhea and weakness, improved #2. Recent bronchoscopy with bronchial wash cultures positive for pseudomonas aeruginosa, on home antibiotic therapy #3. History of coronary artery disease #4. History of DVT and pulmonary embolus, on chronic anticoagulation on Coumadin #5. Fibromyalgia #6. Hypertension #7. Previous myocardial infarction #8. History of congestive heart failure #9. History of pneumonia #10. Previous lung biopsy showing evidence of sarcoidosis #11. History of degenerative disc disease #12. History of MRSA pneumonia Plan: Continue with antibiotic coverage according to ID service recommendation, continue with nebulized bronchodilators, cough, patient did have a low-grade fever last night, she is afebrile today, hemodynamically patient is stable, clinically she states her breathing has improved, there is better aeration noted on today's exam with minimal wheezing. Once her infection has been adequately treated, it would be reasonable to set her up with the specialist from a tertiary center, possibly [facility] for lung biopsy I performed a history & physical examination of the patient and discussed their management with my nurse practitioner, Cydney Hart. I reviewed the nurse practitioner's note and agree with the documented findings and plan of care. Lung sounds are diminished breath sounds with minimal end expiratory wheezing. The findings and the impression was discussed with the patient. I attest to the documentation by the nurse practitioner. Time with Patient: Less than 30
[2018-07-25] MEDS: ACETAMINOPHEN TAB 325 MG TAB PO PRN ×2 (16:11→22:01)
[2018-07-25] MEDS: SODIUM CHLORIDE 0.9% 1,000 ML IV SCH (18:18)
[2018-07-25] MEDS: WARFARIN 2 MG TAB PO SCH (18:28)
[2018-07-25] MEDS: WARFARIN 10 MG TAB PO SCH (18:28)
[2018-07-25] MEDS: MORPHINE SULFATE ER 30 MG TABLET PO PRN (22:02)
[2018-07-25] MEDS: LEVOFLOXACIN 500 MG TAB PO SCH (22:05)
[2018-07-25] MEDS: MIRTAZAPINE 45 MG TABLET PO SCH (22:06)
[2018-07-25] MEDS: methylPREDNISolone SOD SUCCI 40 MG/ML 1 ML VIAL IV SCH (23:12)
--- NOTE | 2018-07-25 23:13 | P.PN ---
Subjective Progress Note Date: 07/25/18 This is a 48-year-old female known to ID service and she has multiple medical troubles including obesity and sarcoidosis, recent treatment for Pseudomonas and was discharged from the hospital on July 03 to complete 2 week course of cefepime. She states she has been receiving the cefepime as scheduled and has not missed any doses. She denies any trouble with her midline. The patient comes back into [facility] emergency center complaining of feeling tired, fever 101.3. She states her shortness of breath is about her baseline and she gets worse with activity. She is on home O2 at 3 L nasal cannula. She complains of nausea without vomiting. Her last bowel movement was yesterday morning. She denies any dysuria. Patient has been afebrile since admission. White count at 11, INR 3.5, potassium 2.6 and has been replaced, creatinine 0.96. Albumin 3.3. Urinalysis is negative. Influenza testing negative. Patient is currently on a clear liquid diet and tolerating. CT of the abdomen and pelvis with contrast reveals mildly dilated proximal small bowel. No transition point seen. This could relate to partial mechanical obstruction or ileus. CTA of the chest shows mild scarring and subsegmental atelectasis at the lung bases improved compared to last exam. No evidence of pulmonary embolism. The patient during this stay developed a significant rash in the cefepime was transition to ceftazidime and she had improvement of her rash. She was discharged home to complete her course of antibiotic therapy on 07/25/2018. Patient however again developed fever in the home setting increasing fatigue and malaise, and then developed some abdominal discomfort and diarrhea. He continued to have complaints of her ongoing chest pain. Patient believed she had temperature 102 at home [facility] emergency center with her shortness of breath is admitted for further intervention. Riley was without fever until this afternoon she again has not 1 fever. She feels very poorly very short of breath. July 25 2018 the patient is now feeling considerably better. Her shortness of breath is improved. Her fevers rash flushing and cough are all improving. Sh e's having less wheezing. Appears to be having response to current antibiotic therapy. Objective - Vital Signs Vital signs: Vital Signs Temp 99.5 F 07/25/18 17:05 Pulse 106 H 07/25/18 18:48 Resp 26 H 07/25/18 16:00 BP 135/79 07/25/18 16:00 Pulse Ox 92 L 07/25/18 16:00 Intake & Output 07/25/18 07/25/18 07/26/18 06:59 18:59 06:59 Intake Total 240 Output Total 4 Balance 236 Weight 112.6 kg Intake: Oral 240 Output: Stool 4 Other: Voiding Method Toilet # Voids 1 1 # Bowel Movements 1 - Exam This is a 48-year-old obese female. Patient laying on her left side complains of feeling miserable she has shortness of breath and fatigue. It has been going right chest discomfort. HEENT: Anicteric conjunctiva are pink and moist nasal mucosa grossly intact without significant lesions, there is no thrush. Oral pharynx without edema or erythema. Neck: The neck is supple without significant lymphadenopathy or thyromegaly. Lungs: There is now much improved aeration to the right posterior aspect of the chest Anteriorly there are symmetrical breath sounds. There are some wheezes in the left chest right posterior chest was just a scattered crackle. There are no amphoric sounds there is no tracheal shift Heart: Regular rate and rhythm with an audible S1-S2, no S3 no S4. There is no significant murmur click or rub, PMI was nondisplaced. Abdomen: Obese, Positive bowel sounds soft and nontender without palpable masses or organomegaly. There was no guarding or rebound. Extremities: The upper extremities have excellent pulses they are symmetric, no significant petechiae or telangiectasia. No splinter hemorrhages were noted. Midline is noted to the left upper arm without tenderness, erythema, drainage. No pedal edema The peripheral pulses were 2+ and symmetric. Neuro: Awake alert oriented to person place and time. There are no acute new gross focal sensory motor deficits. Skin is without significant rash flushing or lesions - Labs CBC & Chem 7: 07/25/18 06:40 07/25/18 06:40 Labs: Abnormal Lab Results - Last 24 Hours (Table) 07/25/18 07/25/18 07/25/18 Range/Units 06:40 06:40 06:40 Lymphocytes # 0.8 L (1.0-4.8) k/uL PT 13.7 H (9.0-12.0) sec INR 1.3 H (<1.2) Sodium 135 L (137-145) mmol/L Potassium 3.3 L (3.5-5.1) mmol/L BUN 4 L (7-17) mg/dL Creatinine 0.51 L (0.52-1.04) mg/dL Glucose 139 H (74-99) mg/dL Calcium 7.6 L (8.4-10.2) mg/dL Microbiology - Last 24 Hours (Table) 07/21/18 19:43 Blood Culture - Preliminary Blood No Growth after 96 hours 07/24/18 00:22 Blood Culture - Preliminary Blood No Growth after 24 hours 07/24/18 00:07 Blood Culture - Preliminary Blood No Growth after 24 hours Laboratory Results WBC 8.0 k/uL (3.8-10.6) 07/25/18 06:40 RBC 4.12 m/uL (3.80-5.40) 07/25/18 06:40 Hgb 12.8 gm/dL (11.4-16.0) 07/25/18 06:40 Hct 37.6 % (34.0-46.0) 07/25/18 06:40 MCV 91.3 fL (80.0-100.0) 07/25/18 06:40 MCH 31.0 pg (25.0-35.0) 07/25/18 06:40 MCHC 34.0 g/dL (31.0-37.0) 07/25/18 06:40 RDW 14.8 % (11.5-15.5) 07/25/18 06:40 Plt Count 201 k/uL (150-450) 07/25/18 06:40 Neutrophils % 81 % 07/25/18 06:40 Lymphocytes % 10 % 07/25/18 06:40 Monocytes % 7 % 07/25/18 06:40 Eosinophils % 0 % 07/25/18 06:40 Basophils % 0 % 07/25/18 06:40 Neutrophils # 6.5 k/uL (1.3-7.7) 07/25/18 06:40 Lymphocytes # 0.8 k/uL (1.0-4.8) L 07/25/18 06:40 Monocytes # 0.5 k/uL (0-1.0) 07/25/18 06:40 Eosinophils # 0.0 k/uL (0-0.7) 07/25/18 06:40 Basophils # 0.0 k/uL (0-0.2) 07/25/18 06:40 PT 13.7 sec (9.0-12.0) H 07/25/18 06:40 INR 1.3 (<1.2) H 07/25/18 06:40 Sodium 135 mmol/L (137-145) L 07/25/18 06:40 Potassium 3.3 mmol/L (3.5-5.1) L 07/25/18 06:40 Chloride 103 mmol/L (98-107) 07/25/18 06:40 Carbon Dioxide 26 mmol/L (22-30) 07/25/18 06:40 Anion Gap 6 mmol/L 07/25/18 06:40 BUN 4 mg/dL (7-17) L 07/25/18 06:40 Creatinine 0.51 mg/dL (0.52-1.04) L 07/25/18 06:40 Est GFR (CKD-EPI)AfAm >90 (>60 ml/min/1.73 sqM) 07/25/18 06:40 Est GFR (CKD-EPI)NonAf >90 (>60 ml/min/1.73 sqM) 07/25/18 06:40 Glucose 139 mg/dL (74-99) H 07/25/18 06:40 Lactic Ac Sepsis Rflx Y 07/24/18 22:35 Plasma Lactic Acid Chuck 1.0 mmol/L (0.7-2.0) 07/25/18 06:40 Calcium 7.6 mg/dL (8.4-10.2) L 07/25/18 06:40 Magnesium 1.7 mg/dL (1.6-2.3) 07/23/18 09:14 Total Bilirubin 0.4 mg/dL (0.2-1.3) 07/21/18 19:43 Conjugated Bilirubin 0.0 mg/dL (0.0-0.3) 07/21/18 19:43 Unconjugated Bilirubin 0.2 mg/dL (0.0-1.1) 07/21/18 19:43 Delta Bilirubin 0.2 mg/dL (0.0-0.2) 07/21/18 19:43 AST 27 U/L (14-36) 07/21/18 19:43 ALT 42 U/L (9-52) 07/21/18 19:43 Alkaline Phosphatase 84 U/L (38-126) 07/21/18 19:43 Troponin I <0.012 ng/mL (0.000-0.034) 07/21/18 19:43 Total Protein 6.7 g/dL (6.3-8.2) 07/21/18 19:43 Albumin 3.9 g/dL (3.5-5.0) 07/21/18 19:43 Lipase 56 U/L (23-300) 07/21/18 19:43 Urine Color Yellow 07/21/18 23:45 Urine Appearance Clear (Clear) 07/21/18 23:45 Urine pH 6.0 (5.0-8.0) 07/21/18 23:45 Ur Specific [place] 1.018 (1.001-1.035) 07/21/18 23:45 Urine Protein Trace (Negative) H 07/21/18 23:45 Urine Glucose (UA) Negative (Negative) 07/21/18 23:45 Urine Ketones Negative (Negative) 07/21/18 23:45 Urine Blood Negative (Negative) 07/21/18 23:45 Urine Nitrite Negative (Negative) 07/21/18 23:45 Urine Bilirubin Negative (Negative) 07/21/18 23:45 Urine Urobilinogen <2.0 mg/dL (<2.0) 07/21/18 23:45 Ur Leukocyte Esterase Negative (Negative) 07/21/18 23:45 C. difficile (EIA) Intrp Negative (Negative) 07/22/18 01:00 Influenza Type A RNA Not Detected (Not Detectd) 07/22/18 15:30 Influenza Type B (PCR) Not Detected (Not Detectd) 07/22/18 15:30 Microbiology 07/21/18 19:43 Blood Blood Culture - Preliminary No Growth after 96 hours 07/24/18 00:22 Blood Blood Culture - Preliminary No Growth after 24 hours 07/24/18 00:07 Blood Blood Culture - Preliminary No Growth after 24 hours Assessment and Plan (1) Pseudomonas pneumonia Narrative/Plan: 48-year-old woman who has multiple medical troubles included sarcoidosis, obesity and steroid dependent lung disease presents to hospital with complaints of fever originally was not having much fever but is now having fever this afternoon. She was having profuse diarrhea that has resolved. C. diff is negative. She does not have an extensive leukocytosis but feels very poorly. CT of the chest showed some evidence of worsening of underlying pneumonic changes especially in the right chest. She's been on ceftazidime at home but is now having increasing fever. The PICC line in the right arm is intact without erythema or tenderness is functioning well. Patient is with fever concerns to failure of current ceftazidime therapy which will transition to meropenem. Levaquin continues for now. Multiple cultures are process. Patient should be seen by pulmonary medicine for further e valuation and possible repeat bronchoscopy for further deep specimens given her immunocompromised status from her large ongoing doses of steroids. 07/25/2018 patient is now having some improvement with the current treatment that includes the change of antibiotics to Merrem, fluids and steroid therapy and respiratory treatments. Fortunately there is not a good response we'll plan on transitioning her antibiotic therapy to Merrem in the home setting to complete her course of therapy. She has been seen by pulmonary critical care and will be sent to thoracic surgery for open lung biopsy once her current pneumonia is improved. Patient states that she would like to the [facility] for further intervention. Current Visit: Yes Status: Acute Code(s): J15.1 - PNEUMONIA DUE TO PSEUDOMONAS SNOMED Code(s): 91223940 (2) Fever Current Visit: Yes Status: Acute Code(s): R50.9 - FEVER, UNSPECIFIED SNOMED Code(s): 211570588 (3) Obesity Current Visit: Yes Status: Acute Code(s): E66.9 - OBESITY, UNSPECIFIED SNOMED Code(s): 536225958 (4) Sarcoidosis Current Visit: No Status: Acute Code(s): D86.9 - SARCOIDOSIS, UNSPECIFIED SNOMED Code(s): 11478199
[2018-07-26] MEDS: diphenhydrAMINE 50 MG/ML 1 ML VIAL IVP PRN (04:56)
[2018-07-26] MEDS: TRIMETHOBENZAMIDE 300 MG CAP PO PRN (04:56)
[2018-07-26] MEDS: BACLOFEN 10 MG TAB PO PRN (05:00)
[2018-07-26] MEDS: guaiFENesin SYRUP 100MG/5ML 200 MG/10 ML CUP PO PRN (05:00)
[2018-07-26] MEDS: ACETAMINOPHEN TAB 325 MG TAB PO PRN (05:03)
[2018-07-26] MEDS: MORPHINE SULFATE 2 MG/ML SYRINGE IVP PRN ×3 (05:43→12:21)
[2018-07-26] MEDS: SODIUM CHLORIDE 0.9% 1,000 ML IV SCH (05:57)
--- NOTE | 2018-07-26 07:42 | XR ---
EXAMINATION TYPE: XR chest 1V DATE OF EXAM: 07/26/2018 COMPARISON: 07/25/2018 INDICATION: Short of breath, follow-up TECHNIQUE: Single frontal view of the chest is obtained. FINDINGS: The heart size is mildly prominent. The pulmonary vasculature is prominent. There is diffuse increased lung opacities present bilaterally. This is worsening from prior examinati on. Findings can be compatible with pulmonary edema. Clinical correlation recommended. IMPRESSION: 1. Developing pulmonary edema. Correlate for CHF Consider ARDS. Findings are worsening from compariso n. A Evangeline level critical message alert has been initiated for [employer] via the [employer] on 07/26/2018 7:39 AM. This message alert has been sent to [employer] via the preferences provided by the clinician for the receipt of Radiology Critical Findings. Message ID [id number].
[2018-07-26 07:52] VITALS: BP 135/79
[2018-07-26] MEDS ORDERED: MORPHINE SULFATE 2 MG/ML SYRINGE IVP STA (08:11)
[2018-07-26] MEDS: methylPREDNISolone SOD SUCCI 40 MG/ML 1 ML VIAL IV SCH (08:12)
[2018-07-26] MEDS ORDERED: FUROSEMIDE 10 MG/ML 4 ML VIAL IV STA (08:28)
[2018-07-26 08:31] LABS: Basophils % (A) 0 %; Eosinophils % (A) 0 %; HCT 38.1 % (34.0-46.0); HGB 12.8 gm/dL (11.4-16.0); Lymphocytes # (A) 0.7 k/uL (1.0-4.8); Lymphocytes % (A) 7 %; MCH 30.9 pg (25.0-35.0); MCHC 33.7 g/dL (31.0-37.0); MCV 91.8 fL (80.0-100.0); Mean Platelet Volume 7.6; Monocytes # (A) 0.5 k/uL (0-1.0); Monocytes % (A) 5 %; Neutrophils # (A) 8.7 k/uL (1.3-7.7); Neutrophils % (A) 85 %; Platelet Count 213 k/uL (150-450); RBC 4.16 m/uL (3.80-5.40); RDW 15.3 % (11.5-15.5); WBC 10.2 k/uL (3.8-10.6)
[2018-07-26] MEDS: ENOXAPARIN 100 MG/ML SYRINGE SQ SCH (08:34)
[2018-07-26 08:40] LABS: Anion Gap 6 mmol/L; Blood Urea Nitrogen 4 mg/dL (7-17); Calcium 7.3 mg/dL (8.4-10.2); Carbon Dioxide 24 mmol/L (22-30); Chloride 106 mmol/L (98-107); Glucose 164 mg/dL (74-99); Magnesium 1.7 mg/dL (1.6-2.3); Potassium 3.8 mmol/L (3.5-5.1); Sodium 136 mmol/L (137-145)
[2018-07-26 08:40] LABS: ABG Base Excess 0.2 mmol/L; ABG HCO3 24 mmol/L (21-25); ABG Oxygen Saturation 89.1 % (94-97); ABG PCO2 32 mmHg (35-45); ABG PH 7.48 (7.35-7.45); ABG TCO2 25 mmol/L (19-24)
--- NOTE | 2018-07-26 08:41 | XR ---
EXAMINATION TYPE: XR chest 1V portable DATE OF EXAM: 07/26/2018 COMPARISON: 07/26/2018 INDICATION: Difficulty in breathing TECHNIQUE: Single frontal view of the chest is obtained. FINDINGS: The heart size is prominent. The pulmonary vasculature is normal. There is diffuse alveolar infiltrate present bilaterally. This is improved from comparison. Correlate for improving congestive heart failure. IMPRESSION: 1. Improving congestive heart failure. Additional follow-up is recommended.
[2018-07-26 08:44] LABS: ABG PO2 47 mmHg (83-108)
[2018-07-26 08:49] LABS: INR 1.5 (<1.2)
[2018-07-26] MEDS ORDERED: FUROSEMIDE 10 MG/ML 10 ML VIAL IV STA (08:57)
[2018-07-26] MEDS ORDERED: ONDANSETRON 4 MG/2 ML VIAL IVP PRN (09:14)
[2018-07-26 09:21] LABS: Glucose,Whole Blood 166 mg/dL (75-99)
[2018-07-26] MEDS ORDERED: HEPARIN SODIUM,PORCINE 5,000 UNIT/ML 1 ML VIAL IV PRN (10:05)
[2018-07-26] MEDS ORDERED: HEPARIN SODIUM,PORCINE 5,000 UNIT/ML 1 ML VIAL IV ONE (10:05)
[2018-07-26] MEDS ORDERED: PROPOFOL 10 MG/ML 20 ML VIAL IV ONE (10:08)
[2018-07-26] MEDS ORDERED: SUCCINYLCHOLINE CHLORIDE VIAL 200 MG/10 ML VIAL IV ONE (10:08)
[2018-07-26] MEDS ORDERED: MIDAZOLAM 1 MG/ML 5 ML VIAL ONE (10:08)
[2018-07-26] MEDS: ALPRAZolam 0.5 MG TAB PO PRN (10:12)
[2018-07-26] MEDS ORDERED: VANCOMYCIN IV PER PHARMACY 1 EACH MISC MISCELLANE PRN (10:14)
[2018-07-26] MEDS ORDERED: HEPARIN SOD,PORK IN 0.45% NACL 25,000 UNIT in 0.45% NACL 1 250ML.BAG IV SCH (10:15)
--- NOTE | 2018-07-26 10:17 | P.PN ---
Subjective Progress Note Date: 07/26/18 Principal diagnosis: Fever associated with watery diarrhea and weakness, recent pseudomonal tracheobronchitis On 07/25/2018 patient seen in follow-up on selective care unit, she is awake and alert, she is in no acute distress, she states she is breathing easier, on today's exam there is better air entry noted bilaterally, with normal and expiratory wheezing, she remains on 3 L of oxygen, with a pulse ox of 95%, low- grade fever last night with a temp of 100.4F. Blood cultures so far showed no growth, patient is on meropenem for history of pseudomonal infection. Patient has an occasional cough with production of clear colored sputum. Addendum patient remains stable, she is on nebulized bronchodilators, she is on the cough syrup. She is on oral anticoagulation for her history of PEs. Infectious disease is following, there plan on setting up patient for a lung biopsy some time after adequately treating the pseudomonal infection. On 07/26/2018 patient seen in follow-up. This morning rapid response team was called with concerns of increasing hypoxemia, respiratory distress. Chest x-ray was obtained and showed developing pulmonary edema. Patient was placed on a nonrebreather mask, stat blood gas was obtained, and showed pO2 of 47, pCO2 of 32, pH of 7.48, this was on the 100% FiO2. He was placed on BiPAP support, she was quite anxious, hyperventilating, she was given non-2 doses of IV morphine, she was given a 40 mg of Lasix IV, she started diuresing, she put out 800 mL of dilute yellow urine before she was transferred to the intensive care unit, upon arrival in the intensive care unit she was given an additional 60 mg of Lasix, patient is responding well, remaines on BiPAP support, initially with pressures of 12 and 5 and we increased the IPAP to 15. Today's labs showed white blood cell count of 10.2, hemoglobin of 12.8, patient's INR is 1.5, sodium is 136, potassium is 3.8, chloride is 106, BUN is 4, and creatinine 0.46. EKG shows sinus tachycardia without ischemic changes. Patient did have a fever spike this morning at 101.4F. Antibiotic coverage in the form of meropenem, lung sounds positive for coarse rhonchi Objective - Vital Signs Vital signs: Vital Signs Temp 101.4 F H 07/26/18 07:55 Pulse 115 H 07/26/18 07:51 Resp 36 H 07/26/18 07:55 BP 135/79 07/26/18 07:51 Pulse Ox 90 L 07/26/18 07:51 Intake & Output 07/25/18 07/26/18 07/26/18 18:59 06:59 18:59 Intake Total 240 400 Output Total 4 Balance 236 400 Weight 109 kg Intake: IV 400 Sodium Chloride 0.9% 1, 400 000 ml @ 50 mls/hr IV . Q20H [facility] Rx#:[id number] Oral 240 Output: Stool 4 Other: Voiding Method Toilet Indwelling Catheter Indwelling Catheter # Voids 1 2 # Bowel Movements 1 1 - Exam GENERAL EXAM: Anxious, obese 48-year-old white female on BiPAP support with pressures of 15/5, and FiO2 of 100%, breathing rapidly, and not moderate to severe amount of respiratory distress, severely anxious, comfortable in no apparent distress. HEAD: Normocephalic/atraumatic. EYES: Normal reaction of pupils, equal size. Conjunctiva pink, sclera white. NOSE: Clear with pink turbinates. THROAT: No erythema or exudates. NECK: No masses, no JVD, no thyroid enlargement, no adenopathy. CHEST: No chest wall deformity. Symmetrical expansion. LUNGS: Coarse rhonchi heard bilaterally CVS: Regular rate and rhythm, normal S1 and S2, no gallops, no murmurs, no rubs ABDOMEN: Soft, nontender. No hepatosplenomegaly, normal bowel sounds, no guarding or rigidity. EXTREMITIES: No clubbing, no edema, no cyanosis, 2+ pulses and upper and lower extremities. MUSCULOSKELETAL: Muscle strength and tone normal. SPINE: No scoliosis or deformity SKIN: No rashes CENTRAL NERVOUS SYSTEM: Alert and oriented -3. No focal deficits, tone is normal in all 4 extremities. PSYCHIATRIC: Alert and oriented -3. Appropriate affect. Intact judgment and insight. - Labs CBC & Chem 7: 07/26/18 08:00 07/26/18 08:00 Labs: Abnormal Lab Results - Last 24 Hours (Table) 07/26/18 07/26/18 07/26/18 Range/Units 08:00 08:00 08:00 Neutrophils # 8.7 H (1.3-7.7) k/uL Lymphocytes # 0.7 L (1.0-4.8) k/uL PT 15.0 H (9.0-12.0) sec INR 1.5 H (<1.2) ABG pH (7.35-7.45) ABG pCO2 (35-45) mmHg ABG pO2 (83-108) mmHg ABG Total CO2 (19-24) mmol/L ABG O2 Saturation (94-97) % Sodium 136 L (137-145) mmol/L BUN 4 L (7-17) mg/dL Creatinine 0.46 L (0.52-1.04) mg/dL Glucose 164 H (74-99) mg/dL POC Glucose (mg/dL) (75-99) mg/dL Calcium 7.3 L (8.4-10.2) mg/dL 07/26/18 07/26/18 Range/Units 08:37 09:09 Neutrophils # (1.3-7.7) k/uL Lymphocytes # (1.0-4.8) k/uL PT (9.0-12.0) sec INR (<1.2) ABG pH 7.48 H (7.35-7.45) ABG pCO2 32 L (35-45) mmHg ABG pO2 47 L* (83-108) mmHg ABG Total CO2 25 H (19-24) mmol/L ABG O2 Saturation 89.1 L (94-97) % Sodium (137-145) mmol/L BUN (7-17) mg/dL Creatinine (0.52-1.04) mg/dL Glucose (74-99) mg/dL POC Glucose (mg/dL) 166 H (75-99) mg/dL Calcium (8.4-10.2) mg/dL Microbiology - Last 24 Hours (Table) 07/24/18 00:22 Blood Culture - Preliminary Blood No Growth after 48 hours 07/24/18 00:07 Blood Culture - Preliminary Blood No Growth after 48 hours 07/21/18 19:43 Blood Culture - Preliminary Blood No Growth after 96 hours Assessment and Plan Plan: Assessment: #1. Acute on chronic hypoxemic respiratory failure secondary to pulmonary edema, rule out congestive heart failure, and underlying pseudomonal infection, rule out other hospital-acquired pathogens. Patient required transfer to the intensive care unit, required BiPAP support, right antibiotic coverage with meropenem #2. Fever associated with watery diarrhea and weakness, improved #3. Recent bronchoscopy with bronchial wash cultures positive for pseudomonas aeruginosa, on home antibiotic therapy #4. History of coronary artery disease #5. History of DVT and pulmonary embolus, on chronic anticoagulation on Coumadin #6. Fibromyalgia #7. Hypertension #8. Previous myocardial infarction #9. History of congestive heart failure #10. History of pneumonia #11. Previous lung biopsy showing evidence of sarcoidosis #12. History of degenerative disc disease #13. History of MRSA pneumonia Plan: Patient has received a total of 100 mg of Lasix, she started to diurese, she is breathing easier, blood gas was reviewed, she remains on BiPAP support, EKG was reviewed, no ischemic changes, we will obtain a set of troponins, we'll obtain a stat echocardiogram. We will add a dose of vancomycin, continue with meropenem. Will obtain new sets of blood cultures and sputum culture. Patient will remain the intensive care unit today. We'll continue to closely follow. INR was subtherapeutic, we will add heparin drip per weight-based protocol until the INR is within therapeutic range. I performed a history & physical examination of the patient and discussed their management with my nurse practitioner, Cydney Hart. I reviewed the nurse practitioner's note and agree with the documented findings and plan of care. Lung sounds are diminished breath sounds with minimal end expiratory wheezing. The findings and the impression was discussed with the patient. I attest to the documentation by the nurse practitioner. Time with Patient: Greater than 30
[2018-07-26] MEDS ORDERED: diphenhydrAMINE 50 MG/ML 1 ML VIAL IVP ONE (11:00)
[2018-07-26] MEDS: IPRATROPIUM-ALBUTEROL 3 ML NEB INHALATION SCH ×3 (11:19→19:12)
[2018-07-26] MEDS ORDERED: VANCOMYCIN 2,000 MG in SODIUM CHLORIDE 0.9% 500 ML 500 ML IVPB ONE (11:30)
--- NOTE | 2018-07-26 12:13 | ECHOF ---
Referral Reason:acute pulmonary edema MEASUREMENTS -------- HEIGHT: 167.6 cm WEIGHT: 108.9 kg BP: IVSd: 1.1 cm (0.6 - 1.1) LVIDd: 3.0 cm (3.9 - 5.3) LVPWd: 1.3 cm (0.6 - 1.1) IVSs: 1.5 cm LVIDs: 1.4 cm LVPWs: 1.7 cm Ao Diam: 3.1 cm (2.0 - 3.7) AV Cusp: 1.9 cm (1.5 - 2.6) LA Diam: 3.2 cm (2.7 - 3.8) MV EXCURSION: 13.189 mm (> 18.000) MV EF SLOPE: 78 mm/s (70 - 150) EPSS: 0.5 cm MV E Aris: 0.78 m/s MV DecT: 187 ms MV A Aris: 0.99 m/s MV E/A Ratio: 0.79 RAP: 5.00 mmHg RVSP: 18.10 mmHg FINDINGS -------- Resting tachycardia (HR>100bpm). This was a technically difficult study with suboptimal views. The left ventricular size is normal. There is mild concentric left ventricular hypertrophy. Overa ll left ventricular systolic function is normal with, an EF between 60 - 65 %. The RV was not well visualized. The left atrial size is normal. The right atrium was not well visualized. Lumason used Interatrial and interventricular septum intact. The aortic valve is trileaflet and appears structurally normal. There is trace mitral regurgitation. Trace tricuspid regurgitation present. The right ventricular systolic pressure, as measured by Dopp ler, is 18.10mmHg. The pulmonic valve was not well visualized. The aortic root size is normal. IVC Not well visulized. There is no pericardial effusion. CONCLUSIONS -------- 1. Resting tachycardia (HR>100bpm). 2. This was a technically difficult study with suboptimal views. 3. The left ventricular size is normal. 4. There is mild concentric left ventricular hypertrophy. 5. Overall left ventricular systolic function is normal with, an EF between 60 - 65 %. 6. The RV was not well visualized. 7. The left atrial size is normal. 8. The right atrium was not well visualized. 9. Lumason used 10. Interatrial and interventricular septum intact. 11. The aortic valve is trileaflet and appears structurally normal. 12. There is trace mitral regurgitation. 13. Trace tricuspid regurgitation present. 14. The right ventricular systolic pressure, as measured by Doppler, is 18.10mmHg. 15. The pulmonic valve was not well visualized. 16. The aortic root size is normal. 17. IVC Not well visulized. SALVAGE WINDER: Anabelle Alvarado RDCS
[2018-07-26 12:15] LABS: INR 1.4 (<1.2); Partial Thromboplastin Time 35.5 sec (22.0-30.0); Prothrombin Time 14.6 sec (9.0-12.0)
[2018-07-26] MEDS ORDERED: LORazepam 2 MG/ML INJ IV STA (12:18)
[2018-07-26] MEDS ORDERED: HYDROmorphone 1 MG/ML 1 ML SYRINGE IVP PRN (12:50)
[2018-07-26] MEDS ORDERED: CISATRACURIUM 2 MG/ML 5 ML VIAL IV ONE (13:00)
[2018-07-26] MEDS ORDERED: PROPOFOL 1,000 MG in EMPTY BAG 1 BAG IV SCH (13:00)
--- NOTE | 2018-07-26 13:15 | XR ---
EXAMINATION TYPE: XR chest 1V portable DATE OF EXAM: 07/26/2018 COMPARISON: 07/26/2018 earlier exam INDICATION: Difficulty breathing, ET tube placement previous abnormal chest TECHNIQUE: Single frontal view of the chest is obtained. FINDINGS: The heart size is normal. The pulmonary vasculature is indistinct. There is diffuse increased lung markings present bilaterally can be related to ARDS or pulmonary jolene a. The pattern appears similar to prior exam. There is an endotracheal tube placement with the tip 2.5 cm above the julianne. Nasogastric tube transv erses the thorax the tip in left upper quadrant of the abdomen. IMPRESSION: 1. Clinical correlation recommended for ARDS or pulmonary edema. 2. Placement of lines and catheters discussed above.
[2018-07-26] MEDS ORDERED: CISATRACURIUM 200 MG in SODIUM CHLORIDE 0.9% 180 ML IV SCH (13:30)
--- NOTE | 2018-07-26 13:56 | PCN ---
PROCEDURE NOTE CENTRAL LINE: Left internal jugular triple-lumen catheter. PREOPERATIVE DIAGNOSIS: Administration of fluids and pressors. POSTOPERATIVE DIAGNOSIS: Administration of fluids and pressors. The left internal jugular site was used. A time-out was completed verifying correct patient, procedure, site, positioning, and implant(s) or special equipment if applicable. The patient was placed in a dependent position appropriate for triple lumen catheter placement based on the vein to be cannulated. The patient's left neck was prepped and draped in sterile fashion. 1% Lidocaine was used to anesthetize the surrounding skin area. A triple lumen 9F Cordis catheter was introduced into the left internal jugular vein using Seldinger technique. The catheter was threaded smoothly over the guide wire and appropriate blood return was obtained. Each lumen of the catheter was evacuated of air and flushed with sterile saline. The catheter was then sutured in place to the skin and a sterile dressing applied. Perfusion to the extremity distal to the point of catheter insertion was checked and found to be adequate. There was no immediate complications. There was good blood return from all 3 ports. The catheter was sutured in place. Sterile dressing was applied. Chest x-ray was ordered. There was no complications noted. MMODL / IJN: [id number] /
[2018-07-26] MEDS: PREGABALIN 75 MG CAP PO SCH (14:02)
[2018-07-26] MEDS: FLUoxetine HCL 20 MG CAP PO SCH (14:02)
[2018-07-26] MEDS: POTASSIUM CHLORIDE ER 20 MEQ TAB.ER PO SCH (14:02)
[2018-07-26] MEDS: lamoTRIgine 100 MG TAB PO SCH (14:02)
[2018-07-26] MEDS: METOPROLOL TARTRATE 50 MG TAB PO SCH (14:02)
[2018-07-26] MEDS: FAMOTIDINE 20 MG TAB PO SCH (14:02)
--- NOTE | 2018-07-26 14:11 | PCN ---
PROCEDURE NOTE PROCEDURE: Right radial arterial line placement. A time-out was completed verifying correct patient, procedure, site, positioning, and implant(s) or special equipment if applicable. Yohan's test was performed to ensure adequate perfusion. The patient right wrist was prepped and draped in sterile fashion. 1% Lidocaine was used to anesthetize the area. An 18G Arrow arterial line was introduced into the radial artery. The catheter was threaded over the guide wire and the needle was removed with appropriate pulsatile blood return. Blood loss was minimal. The catheter was then sutured in place to the skin and a sterile dressing applied. Perfusion to the extremity distal to the point of catheter insertion was checked and found to be adequate. The patient tolerated the procedure well and there were no complications. Right radial art line was placed without any immediate complications, good waveform was noted, blood return, lung was flushed, and sutured in place, sterile dressing was applied. MMODL / IJN: [id number] /
--- NOTE | 2018-07-26 14:15 | XR ---
EXAMINATION TYPE: XR chest 1V portable DATE OF EXAM: 07/26/2018 COMPARISON: 07/26/2017 earlier INDICATION: Line placement TECHNIQUE: Single frontal view of the chest is obtained. FINDINGS: The heart size is normal. The pulmonary vasculature is prominent. There are increased lung markings compatible with pulmonary edema Endotracheal tube transverses the thorax. There is a PICC line with tip in the superior vena cava region. Left central venous catheter is in pl robert with tip in the right atrium. Distal tips of these is somewhat difficult to clearly identify give n the penetration. IMPRESSION: 1. No pneumothorax post left central venous catheter placement. 2. Multiple lines and catheters. 3. Diffuse pulmonary edema or ARDS.
[2018-07-26] MEDS: MEROPENEM 2 GM in SODIUM CHLORIDE 0.9% 100 ML IVPB SCH (14:18)
[2018-07-26 14:19] LABS: ABG Base Excess 0.4 mmol/L; ABG HCO3 28 mmol/L (21-25); ABG PH 7.21 (7.35-7.45); ABG PO2 115 mmHg (83-108); ABG TCO2 30 mmol/L (19-24)
[2018-07-26 14:25] LABS: ABG PCO2 71 mmHg (35-45)
[2018-07-26] MEDS ORDERED: ACETAMINOPHEN SUPPOSITORY 650 MG SUPP RECTAL STA (14:50)
[2018-07-26 15:55] VITALS: PULSE 152; RESP 89; TEMP 102.7
[2018-07-26] MEDS ORDERED: ARTIFICIAL TEARS-HYPROMELLOSE DROPS 15 ML BTL BOTH EYES SCH (16:00)
[2018-07-26] MEDS ORDERED: CHLORHEXIDINE GLUCONATE 15 ML CUP MUCOUS MEM SCH (21:00)
--- NOTE | 2018-07-31 14:04 | P.DS ---
Providers Date of admission: 07/23/18 15:10 Attending physician: Harley Bush MD Consults: 07/22/18 11:38 Consult Physician Urgent Consulting Provider: Kobi Lott Consult Reason/Comments: possible fever. h/o pseudomonas in sputus Do you want consulting provider notified?: Yes 07/23/18 22:57 Consult Physician Urgent Consulting Provider: Bhupendra Clark Consult Reason/Comments: pneumonia Do you want consulting provider notified?: Yes Primary care physician: [facility] Course: Diagnoses: Possible pneumonia, on antibiotic. Differential diagnosis cryptogenic organizing pneumonia, versus others. Acute hypoxic respiratory failure, needed intubation Acute pulmonary edema. Differential diagnosis include congestive heart failure versus ARDS Fever and diarrhea on admission, . C. diff is negative. And no source of infection Right-sided pleuritic chest pain, chronic/recurrent. History of PE on Coumadin. Subtherapeutic INR. History of pseudomonas infection in her pulmonary passages or, was on ceftazidime with PICC line. History of COPD History of congestive heart failure Hyperlipidemia History of coronary artery disease Hypertension History of hysterectomy Hypothyroidism History of fibromyalgia and bipolar disorder Hospital course: this is a pleasant 48 years old female with past medical history of COPD, congestive heart failure, DVT, hyperlipidemia, coronary artery disease, hypertension, pulmonary embolism on and coagulation, hysterectomy, hypothyroidism,polycythemia, fibromyalgia, bipolar disorder. 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 She was on IV antibiotics cefepime via PICC line. This time patient presents with fever on and off for about one week.Patient has tree-in-bud appearance on CAT scan of the lung, patient antibiotics were changed to meropenem and Levaquin. She's been followed closely by both infectious and pulmonary teams. However patient gradually getting worse today patient developed acute respiratory distress, repeat chest x-ray showed pulmonary edema, patient received about 100 mg of Lasix and she made more than 800 L of urine output. Patient first was placed on BiPAP, however eventually got worse and she needed to be intubated. Patient needed to be transferred to a tertiary care center at [facility] for further evaluation. I discussed the case with the critical care team at at bedtime and they kindly accepted the patient at bedside and he agrees with the transfer Patient will be transferred in stable condition but in guarded prognosis Gen: patient is sedated and intubated CVS: S1-S2, RRR, no murmur Lungs: B/L crepitation and harsh breath sounds Abdomen: soft, no distention, no tenderness, positive bowel sounds Extremity: no leg edema or induration Time spent more than 35 minutes Plan - Discharge Summary New Discharge Prescriptions: New Meropenem [Merrem] 2 gm IVPB Q8H #30 vial No Action RX: FLUoxetine HCL [PROzac] 20 mg PO DAILY #30 capsule RX: Metoprolol Tartrate [Lopressor] 50 mg PO BID #60 tab RX: lamoTRIgine [LaMICtal] 200 mg PO DAILY RX: Bumetanide 4 mg PO QAM RX: Butalb/APAP/Caff 50-325-40Mg [Fioricet 50-325-40] 1 tab PO Q4H PRN PRN Reason: Migraine Headache RX: Mirtazapine [Remeron] 45 mg PO HS RX: ALPRAZolam [Xanax] 0.5 mg PO TID PRN PRN Reason: Anxiety RX: Pregabalin [Lyrica] 150 mg PO BID RX: Bumetanide [BUMEX] 2 mg PO DAILY@1200 RX: Baclofen [Lioresal] 20 mg PO Q8H PRN PRN Reason: Muscle Pain RX: Morphine Sulfate ER [Ms Contin] 30 mg PO Q6H PRN PRN Reason: Pain RX: Nystatin 100,000 Unit/gm Powd [Mycostatin Powder] 1 applic TOPICAL BID RX: Promethazine/Dextromethorphan [Promethazine-Dm Solution] 5 ml PO Q6H PRN PRN Reason: Cough RX: Docusate [Colace] 100 mg PO BID PRN #60 cap PRN Reason: Constipation RX: Potassium Chloride ER [K-Dur 20] 20 meq PO DAILY #30 tab.er.prt RX: Sennosides-Docusate Sodium [Senokot-S] 2 tab PO BID PRN PRN Reason: Constipation RX: Hydrocodone/Acetaminophen [[place] 10-325] 1 tab PO Q6H PRN 3 Days #12 tab PRN Reason: Pain RX: Warfarin [Coumadin] 10 mg PO HS RX: Meclizine HCl 25 mg PO TID PRN PRN Reason: Vertigo RX: Ipratropium-Albuterol Nebulize [Duoneb 0.5 mg-3 mg/3 ml Soln] 3 ml INHALATION RT-QID PRN PRN Reason: Shortness Of Breath RX: Ondansetron [Zofran ODT] 4 mg PO Q6H PRN PRN Reason: Nausea RX: cefTAZidime [Fortaz] 2 gm IVP Q8HR #42 vial Warfarin [Coumadin] 2 mg PO HS Discharge Medication List RX: FLUoxetine HCL [PROzac] 20 mg PO DAILY #30 capsule 08/20/15 [Rx] RX: Metoprolol Tartrate [Lopressor] 50 mg PO BID #60 tab 08/20/15 [Rx] RX: lamoTRIgine [LaMICtal] 200 mg PO DAILY 03/22/16 [History] RX: Bumetanide 4 mg PO QAM 10/18/16 [History] RX: Butalb/APAP/Caff 50-325-40Mg [Fioricet 50-325-40] 1 tab PO Q4H PRN 10/18/16 [History] RX: Mirtazapine [Remeron] 45 mg PO HS 04/10/17 [History] RX: ALPRAZolam [Xanax] 0.5 mg PO TID PRN 06/06/17 [History] RX: Bumetanide [BUMEX] 2 mg PO DAILY@1200 09/16/17 [History] RX: Pregabalin [Lyrica] 150 mg PO BID 09/16/17 [History] RX: Baclofen [Lioresal] 20 mg PO Q8H PRN 10/09/17 [History] RX: Morphine Sulfate ER [Ms Contin] 30 mg PO Q6H PRN 11/03/17 [History] RX: Nystatin 100,000 Unit/gm Powd [Mycostatin Powder] 1 applic TOPICAL BID 11/04/17 [History] RX: Promethazine/Dextromethorphan [Promethazine-Dm Solution] 5 ml PO Q6H PRN 11/04/17 [History] RX: Docusate [Colace] 100 mg PO BID PRN #60 cap 11/10/17 [Rx] RX: Potassium Chloride ER [K-Dur 20] 20 meq PO DAILY #30 tab.er.prt 11/10/17 [Rx] RX: Sennosides-Docusate Sodium [Senokot-S] 2 tab PO BID PRN 12/07/17 [History] RX: Hydrocodone/Acetaminophen [[place] 10-325] 1 tab PO Q6H PRN 3 Days #12 tab 12/09/17 [Rx] RX: Warfarin [Coumadin] 10 mg PO HS 01/20/18 [History] RX: Ipratropium-Albuterol Nebulize [Duoneb 0.5 mg-3 mg/3 ml Soln] 3 ml INHALATION RT-QID PRN 05/22/18 [History] RX: Meclizine HCl 25 mg PO TID PRN 05/22/18 [History] RX: Ondansetron [Zofran ODT] 4 mg PO Q6H PRN 06/24/18 [History] RX: cefTAZidime [Fortaz] 2 gm IVP Q8HR #42 vial 07/11/18 [Rx] Warfarin [Coumadin] 2 mg PO HS 07/21/18 [History] Meropenem [Merrem] 2 gm IVPB Q8H #30 vial 07/25/18 [Rx] Follow up Appointment(s)/Referral(s): [facility], [NON-STAFF] - Liz Koch MD [Primary Care Provider] - 07/26/18 8:30 am (Sunday) [facility], [REFERRING] - Margie Ulloa MD [STAFF PHYSICIAN] - 07/30/18 2:00 pm (Sunday) Patient Instructions/Handouts: Chronic Diarrhea (DC)
== END 2018-07-26 15:00 | disposition short-term general hospital (02) | DRG 208 ==
LOC: EC 18:36 → 1SOBS 21:25 → 4MS4W 07-22 19:39 → OBSVTOIN 07-23 15:10 → 4SSUR 07-24 18:01 → 3SCARD 07-25 03:26 → 2SICU 07-26 08:48
PROVIDERS: ADMIT Internal Medicine; ATTEND Internal Medicine
PROC: 5A1935Z Respiratory Ventilation, Less than 24 Consecutive Hours (ICD-10-PCS; principal; 2018-07-26)
PROC: 0BH17EZ Insertion of Endotracheal Airway into Trachea, Via Natural or Artificial Opening (ICD-10-PCS; 2018-07-26)
DX: J84.116 Cryptogenic organizing pneumonia (principal); J96.21 Acute and chronic respiratory failure with hypoxia; J18.8 Other pneumonia, unspecified organism; J44.0 Chronic obstructive pulmonary disease with (acute) lower respiratory infection; R19.7 Diarrhea, unspecified; E87.6 Hypokalemia; J44.9 Chronic obstructive pulmonary disease, unspecified; E78.5 Hyperlipidemia, unspecified; E03.9 Hypothyroidism, unspecified; E86.0 Dehydration; F31.9 Bipolar disorder, unspecified; F41.9 Anxiety disorder, unspecified; I11.0 Hypertensive heart disease with heart failure; I25.10 Atherosclerotic heart disease of native coronary artery without angina pectoris; E66.9 Obesity, unspecified; I50.9 Heart failure, unspecified; D86.9 Sarcoidosis, unspecified; J84.10 Pulmonary fibrosis, unspecified; M79.7 Fibromyalgia; Z68.38 Body mass index [BMI] 38.0-38.9, adult; R79.1 Abnormal coagulation profile; Z86.718 Personal history of other venous thrombosis and embolism; Z86.711 Personal history of pulmonary embolism; Z99.81 Dependence on supplemental oxygen; Z79.899 Other long term (current) drug therapy; Z79.01 Long term (current) use of anticoagulants; Z88.1 Allergy status to other antibiotic agents; Z91.041 Radiographic dye allergy status; Z88.5 Allergy status to narcotic agent; Z88.8 Allergy status to other drugs, medicaments and biological substances; Z91.048 Other nonmedicinal substance allergy status; I25.2 Old myocardial infarction; Z79.52 Long term (current) use of systemic steroids; Z82.49 Family history of ischemic heart disease and other diseases of the circulatory system; Z86.14 Personal history of Methicillin resistant Staphylococcus aureus infection; Z87.01 Personal history of pneumonia (recurrent); Z87.891 Personal history of nicotine dependence; Z90.710 Acquired absence of both cervix and uterus
CPT/HCPCS: 36415; 36600; 70450; 71045; 71046; 71250; 74176; 80048; 80076; 81003; 82805; 83605; 83690; 83735; 84145; 84484; 85025; 85610; 85730; 87040; 87324; 87502; 93005; 93306; 94002; 94640; 94760; 96365; 99285

== ENCOUNTER 2018-08-25 16:31 | Inpatient (IN) | payer BC, OTHER ==
--- NOTE | 2018-08-25 16:52 | ED ---
General Adult HPI - General Chief complaint: Recheck/Abnormal Lab/Rx Stated complaint: WEAKNESS Time Seen by Provider: 08/25/18 16:38 Source: patient, family Mode of arrival: wheelchair Limitations: physical limitation - History of Present Illness Initial comments: 48-year-old female resenting after being discharged from [facility] today with chief complaint of needing inpatient rehab. The patient was seen at this facility on July 26. At that time she was having intermittent fevers and diarrhea. She was on Ceftazidime, but was switched to Meropenem by ID while admitted. The patient eventually developed ARDS requiring intubation. She was transferred to [facility] for escalation of care. While in the hospital patient was continued on broad-spectrum antibiotic, however she went into septic shock. She was treated with pressors, Linezolid, and steroids for potential adrenal insufficiency. She was extubated on 08/18. she passed a swallow study. She was put on pureed soft foods and liquids. She was also found to have liver cirrhosis and was started on lactulose. Today they recommended the patient be admitted to inpatient rehab. Per the discharge summary the patient was refusing a bed at [facility]. She was requesting transfer to [place]. She was unwilling to wait for approval of the transfer and therefore was discharged home. Patient states she came straight to the hospital. She is unable to currently walker self transfer secondary to her weakness. She states she is no longer on antibiotics and is not requiring more than her baseline 4 L of home O2. - Related Data Home Medications Medication Instructions Recorded Confirmed lamoTRIgine [LaMICtal] 200 mg PO DAILY 03/22/16 08/25/18 Bumetanide 2 mg PO DAILY 10/18/16 08/25/18 Nystatin 100,000 Unit/gm Powd 1 applic TOPICAL BID 11/04/17 08/25/18 [Mycostatin Powder] Apixaban [Eliquis] 10 mg PO BID 08/25/18 08/25/18 Insulin Glargine,Hum.rec.anlog 22 unit SQ W/BRKFST 08/25/18 08/25/18 [Lantus Solostar] Lactulose 20 gm PO TID PRN 08/25/18 08/25/18 Magnesium Oxide [Mag-Ox] 400 mg PO BID 08/25/18 08/25/18 Multivitamins, Thera [Multivitamin 1 tab PO DAILY 08/25/18 08/25/18 (formulary)] Potassium Chloride ER [K-Dur 20] 40 meq PO DAILY 08/25/18 08/25/18 predniSONE See Taper PO DIRECTED 08/25/18 08/25/18 Previous Rx's Medication Instructions Recorded Metoprolol Tartrate [Lopressor] 50 mg PO BID #60 tab 08/20/15 Allergies Allergy/AdvReac Type Severity Reaction Status Date / Time cefepime [From Maxipime] Allergy Severe Rash/Hives Verified 08/25/18 18:37 Iodinated Contrast- Oral and Allergy Severe Rash/Hives Verified 08/25/18 18:37 IV Dye ketorolac tromethamine Allergy Severe Anaphylaxis Verified 08/25/18 18:37 [From Toradol] adhesive Allergy Rash/Hives Verified 08/25/18 18:37 rivaroxaban [From Xarelto] Allergy Rash/Hives Verified 08/25/18 18:37 sumatriptan [From Imitrex] Allergy Anaphylaxis Verified 08/25/18 18:37 sumatriptan succinate Allergy Anaphylaxis Verified 08/25/18 18:37 [From Imitrex] tramadol Allergy Anaphylaxis Verified 08/25/18 18:37 iodine AdvReac Intermediate Itching/severe Verified 08/25/18 18:37 hives vancomycin AdvReac Itching Verified 08/25/18 18:37 Rich wipes Allergy Severe Rash/Hives Uncoded 07/21/18 22:38 Review of Systems ROS Statement: Those systems with pertinent positive or pertinent negative responses have been documented in the HPI. Review of Systems Constitutional: Denies fever, chills Eyes: Denies change in vision, Denies pain Ears, nose, mouth, throat: Denies headaches, Denies sore throat Cardiovascular: Denies chest pain. Denies palpitations Respiratory: Denies shortness of breath, Denies cough Gastrointestinal: Denies abdominal pain. Denies nausea, vomiting, diarrhea. Genitourinary: Denies hematuria, Denies infections Musculoskeletal: Denies pain, Denies swelling Integumentary: Denies rash Neurological: Denies headache, focal weakness, focal numbness. Positive generalized weakness Psychiatric: Denies anxiety, Denies depression Hematologic/Lymphatic: Denies easy bleeding or bruising ROS Other: All systems not noted in ROS Statement are negative. Past Medical History Past Medical History: Blood Disorder, Coronary Artery Disease (CAD), Heart Failure, COPD, Deep Vein Thrombosis (DVT), Fibromyalgia, Hyperlipidemia, Hypertension, Myocardial Infarction (VT), Pneumonia, Pulmonary Embolus (PE), Thyroid Disorder Additional Past Medical History / Comment(s): Sarcoidosis,polycythemia, bilateral PE's, bilateral DVTs, degenerative disk disorder, history of a VT and ventilator dependent respiratory failure with MRSA pneumonia, Viral meningitis in October 2014. Pulmonary fibrosis, home 0xygen at 3l n/c, recent pneumonia Last Myocardial Infarction Date:: February 15, 2013 History of Any Multi-Drug Resistant Organisms: MRSA Date of last positivie culture/infection: 11/09/17 MDRO Source:: PLEURAL FLUID Past Surgical History: Section, Cholecystectomy, Heart Catheterization, Hernia Repair, Orthopedic Surgery Additional Past Surgical History / Comment(s): Lt ankle surgery, several bronchosopies Past Anesthesia/Blood Transfusion Reactions: Previous Problems w/ Anesthesia Additional Past Anesthesia/Blood Transfusion Reaction / Comment(s): previously charted -pt stated that last April she coded possbily due to anesthetic-during bronchoscopy procedure with Dr Hicks Past Psychological History: Anxiety Smoking Status: Former smoker Past Alcohol Use History: None Reported Past Drug Use History: None Reported - Past Family History Father Family Medical History: Blood Disorder, Deep Vein Thrombosis (DVT), Myocardial Infarction (VT), Pulmonary Embolus Additional Family Medical History / Comment(s): polycythemia Mother Family Medical History: Deep Vein Thrombosis (DVT) Additional Family Medical History / Comment(s): DDD Sister(s) Family Medical History: No Reported History Brother(s) Family Medical History: No Reported History Son(s) Family Medical History: No Reported History Daughter(s) Family Medical History: No Reported History General Exam - General Exam Comments Initial Comments: General: Awake, alert, No acute Distress HENT: Normocephalic. Atraumatic Eyes: PERRL. EOMI. No scleral icterus. No injected conjunctiva Neck: Full ROM Chest/Lungs: Clear to auscultation bilaterally. No wheezing, rhonchi, or rales Cardiac: Regular rate, rhythm. No murmurs or rubs Abdomen/GI: Soft, nontender, nondistended. No rebound, guarding, or rigidity. Musculoskeletal: Full ROM Skin: Warm, dry, intact. Multiple areas of bruising to BUE Neurologic: A/Ox3, no sensory deficit, no abnormal gait, no coordination deficit. Generalized weakness in all 4 extremities. Limitations: physical limitation Course Vital Signs 08/25/18 08/25/18 16:34 19:29 Temperature 98.3 F Pulse Rate 122 H 93 Respiratory 22 16 Rate Blood Pressure 120/91 120/91 O2 Sat by Pulse 95 Oximetry Procedures - Procedures Initial comment: Ultrasound guided IV placement- Sterile Gel used Area cleaned and dried Attempts: 2 Ultrasound guided 18 gauge in Right AC placed No complications Tolerated the procedure well Medical Decision Making - Medical Decision Making 48-year-old female presenting for inpatient rehab placement. Review of the patient's medical records records patient is no longer on antibiotics, she is on Bumex 2 mg daily, she is on a steroid taper, is currently on a pured diet with clear liquids patient is on Ahlquist being bridged to her Coumadin and is currently on 10 mg twice a day for 7 days with the last day being August 29 follow ed by 5 mg twice a day. The patient requires admission for inpatient rehab placement. I spoke with Dr. Larson who is agreeable to admission. Patient requesting pain medications. She was given her home [place] 10-325 mg for pain. - Lab Data Result diagrams: 08/25/18 17:45 08/25/18 17:45 Lab Results 08/25/18 08/25/18 08/25/18 Range/Units 17:45 17:45 17:45 WBC 3.0 L (3.8-10.6) k/uL RBC 3.27 L (3.80-5.40) m/uL Hgb 10.6 L (11.4-16.0) gm/dL Hct 32.2 L (34.0-46.0) % MCV 98.3 D (80.0-100.0) fL MCH 32.4 (25.0-35.0) pg MCHC 32.9 (31.0-37.0) g/dL RDW 21.3 H (11.5-15.5) % Plt Count 107 L (150-450) k/uL Neutrophils % 76 % Lymphocytes % 18 % Monocytes % 3 % Eosinophils % 2 % Basophils % 0 % Neutrophils # 2.3 (1.3-7.7) k/uL Lymphocytes # 0.5 L (1.0-4.8) k/uL Monocytes # 0.1 (0-1.0) k/uL Eosinophils # 0.1 (0-0.7) k/uL Basophils # 0.0 (0-0.2) k/uL Anisocytosis Moderate Macrocytosis Moderate PT 11.6 (9.0-12.0) sec INR 1.1 (<1.2) Sodium 140 (137-145) mmol/L Potassium 3.9 (3.5-5.1) mmol/L Chloride 105 (98-107) mmol/L Carbon Dioxide 25 (22-30) mmol/L Anion Gap 10 mmol/L BUN 14 (7-17) mg/dL Creatinine 0.44 L (0.52-1.04) mg/dL Est GFR (CKD-EPI)AfAm >90 (>60 ml/min/1.73 sqM) Est GFR (CKD-EPI)NonAf >90 (>60 ml/min/1.73 sqM) Glucose 143 H (74-99) mg/dL Calcium 9.8 (8.4-10.2) mg/dL Disposition Clinical Impression: Unable to ambulate, Muscle weakness (generalized), Leukopenia Disposition: ADMITTED IP TO THIS [facility] Decision to Admit Reason: Admit from EC Decision Date: 08/25/18 Decision Time: 18:19
[2018-08-25] MEDS ORDERED: HYDROcodone/APAP 10-325MG 1 EACH TAB PO ONE (17:30)
[2018-08-25 18:02] LABS: INR 1.1 (<1.2); Prothrombin Time 11.6 sec (9.0-12.0)
[2018-08-25 18:06] LABS: African American GFR (CKD) >90 (>60 ml/min/1.73 sqM); Anion Gap 10 mmol/L; Blood Urea Nitrogen 14 mg/dL (7-17); Calcium 9.8 mg/dL (8.4-10.2); Carbon Dioxide 25 mmol/L (22-30); Chloride 105 mmol/L (98-107); Glucose 143 mg/dL (74-99); Potassium 3.9 mmol/L (3.5-5.1); Sodium 140 mmol/L (137-145)
[2018-08-25] MEDS ORDERED: NALOXONE 0.4 MG/ML 1 ML VIAL IV PRN (18:29)
[2018-08-25 18:30] LABS: Anisocytosis Moderate; Basophils % (A) 0 %; Eosinophils # (A) 0.1 k/uL (0-0.7); Eosinophils % (A) 2 %; HCT 32.2 % (34.0-46.0); HGB 10.6 gm/dL (11.4-16.0); Lymphocytes # (A) 0.5 k/uL (1.0-4.8); Lymphocytes % (A) 18 %; MCH 32.4 pg (25.0-35.0); MCHC 32.9 g/dL (31.0-37.0); Macrocytosis Moderate; Mean Platelet Volume 8.9; Monocytes # (A) 0.1 k/uL (0-1.0); Monocytes % (A) 3 %; Neutrophils # (A) 2.3 k/uL (1.3-7.7); Neutrophils % (A) 76 %; Platelet Count 107 k/uL (150-450); RBC 3.27 m/uL (3.80-5.40); RDW 21.3 % (11.5-15.5)
[2018-08-25 18:31] LABS: MCV 98.3 fL (80.0-100.0)
[2018-08-25] MEDS ORDERED: LACTULOSE 20 GM/30 ML CUP PO PRN (19:01)
[2018-08-25] MEDS: HYDROcodone/APAP 5-325MG 1 EACH TAB PO PRN (19:03)
[2018-08-25] MEDS ORDERED: MIRTAZAPINE 15 MG TAB PO STA (20:44)
[2018-08-25] MEDS ORDERED: MORPHINE CONC SOLN 10mg/0.5mL ORAL SYRG PO ONE (21:15)
[2018-08-25] MEDS: LIDOCAINE 5% PATCH TOPICAL SCH (22:19)
[2018-08-25] MEDS: APIXABAN 5 MG TAB PO SCH (22:19)
[2018-08-25] MEDS: MAGNESIUM OXIDE 400 MG TAB PO SCH (22:19)
[2018-08-25] MEDS: METOPROLOL TARTRATE 50 MG TAB PO SCH (22:19)
[2018-08-25] MEDS: NYSTATIN 100,000 UNIT/GM POWD 15 GM TOPICAL SCH (22:23)
[2018-08-26] MEDS: HYDROcodone/APAP 5-325MG 1 EACH TAB PO PRN ×2 (03:14→08:45)
[2018-08-26 08:27] LABS: Glucose,Whole Blood 121 mg/dL (75-99)
[2018-08-26] MEDS: METOPROLOL TARTRATE 50 MG TAB PO SCH ×3 (08:40→22:01)
[2018-08-26] MEDS: APIXABAN 5 MG TAB PO SCH ×2 (08:45→19:08)
[2018-08-26] MEDS: BUMETANIDE 1 MG TAB PO SCH (08:45)
[2018-08-26] MEDS: lamoTRIgine 100 MG TAB PO SCH (08:46)
[2018-08-26] MEDS: predniSONE 10 MG TAB PO SCH (08:46)
[2018-08-26] MEDS: MULTIVITAMINS, THERA 1 EACH TAB PO SCH (08:46)
[2018-08-26] MEDS: MAGNESIUM OXIDE 400 MG TAB PO SCH ×2 (08:46→22:01)
[2018-08-26] MEDS: POTASSIUM CHLORIDE ER 20 MEQ TAB.ER PO SCH (08:46)
[2018-08-26] MEDS: INSULIN DETEMIR (LEVEMIR) 100 UNIT/ML SYR SQ SCH (08:46)
[2018-08-26] MEDS: LIDOCAINE 5% PATCH TOPICAL SCH (08:47)
[2018-08-26] MEDS: NYSTATIN 100,000 UNIT/GM POWD 15 GM TOPICAL SCH ×2 (08:47→19:10)
[2018-08-26 11:13] VITALS: BMI 35.5
[2018-08-26 12:35] LABS: Glucose,Whole Blood 165 mg/dL (75-99)
--- NOTE | 2018-08-26 12:40 | US ---
EXAMINATION TYPE: US venous doppler duplex LE LT DATE OF EXAM: 08/26/2018 12:23 PM COMPARISON: Multiple US venous dopplers in PACS CLINICAL HISTORY: pain, edema. Pt states left knee pain/ states previous DVT in left leg, however all previous studies in PACS appear negative for DVT SIDE PERFORMED: Left TECHNIQUE: The lower extremity deep venous system is examined utilizing real time linear array sonog nisha with graded compression, doppler sonography and color-flow sonography. VESSELS IMAGED: External Iliac Vein (EIV) Common Femoral Vein Deep Femoral Vein Greater Saphenous Vein * Femoral Vein Popliteal Vein Small Saphenous Vein * Proximal Calf Veins (* superficial vessels) There is normal flow, compressibility, vascular waveforms. Left Leg: Negative for DVT IMPRESSION: No evident deep venous thrombosis at or above the left knee, follow-up as indicated
[2018-08-26] MEDS: HYDROcodone/APAP 7.5-325MG 1 EACH TAB PO PRN ×2 (16:06→22:01)
[2018-08-26 17:09] LABS: Glucose,Whole Blood 185 mg/dL (75-99)
--- NOTE | 2018-08-26 20:08 | P.HPIM ---
History of Present Illness this is a pleasant 48 years old female with past medical history of COPD, congestive heart failure, DVT, hyperlipidemia, coronary artery disease, hypertension, pulmonary embolism on anticoagulation, hysterectomy, hypothyroidism,polycythemia, fibromyalgia, bipolar disorder. 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 last time she was in this hospital for resp distress ,she was intubated and transferred to [facility] for further management. their she has extended course , where she was in and out of the ICU several time for septic shock , she has liver cirrhosis as well, she was treated with several antibiotics , eventually she is improved. pt also was found to have adrenal insufficiency and she is been discharged on prolonged course of steroid taper. upon discharge pt was advised to go to inpatient physical rehab , however pt did not want to stay at [facility] and she asked them to discharge her home. pt was generally weak and had difficulty move and she came to this hospital . currently she looks fully awake and oriented, she has lost some weight since last admission , she is not cyanotic any more , she is off oxygen therapy , she is a little tachycardic and BP on the low normal side, she is on Bumex. she has negative venous doppler for DVT in the left LE. on admission her vitals are stable, she is a little tachycardic and BP on the low normal side, she is saturating 93 % on RA, she is mildy pancytopenic with wbc 3.0 , Hb 10.6 and platelets 107. creatinine 0.4 and electrolytes within normal limits. pt is still complaining from chronic sharp right side chest pain on norco 10 mg , i discussed with pt and she agrees to try 7.5-325 mg of norco , also she is on several psych medication , we are going to ask psychiatrist to adjust her medication . she is on metoprolol for her tachycardia and she is on Eliquis, Review of Systems CONSTITUTIONAL: No fever, no malaise, no fatigue. HEENT: No recent visual problems or hearing problems. Denied any sore throat. CARDIOVASCULAR: No orthopnea, PND, no palpitations, no syncope. PULMONARY: No shortness of breath, no cough, no hemoptysis. GASTROINTESTINAL: No diarrhea, no nausea, no vomiting, no abdominal pain. Normoactive bowel sounds. NEUROLOGICAL: No headaches, no weakness, no numbness. HEMATOLOGICAL: Denies any bleeding or petechiae. GENITOURINARY: Denies any burning micturition, frequency, or urgency. MUSCULOSKELETAL/RHEUMATOLOGICAL: Denies any joint pain, swelling, or any muscle pain. ENDOCRINE: Denies any polyuria or polydipsia. Past Medical History Past Medical History: Blood Disorder, Coronary Artery Disease (CAD), Heart Failure, COPD, Deep Vein Thrombosis (DVT), Fibromyalgia, Hyperlipidemia, Hypertension, Myocardial Infarction (SD), Pneumonia, Pulmonary Embolus (PE), Th yroid Disorder Additional Past Medical History / Comment(s): Sarcoidosis,polycythemia, bilateral PE's, bilateral DVTs, degenerative disk disorder, history of a SD and ventilator dependent respiratory failure with MRSA pneumonia, Viral meningitis in October 2014. Pulmonary fibrosis, home 0xygen at 3l n/c, recent pneumonia Last Myocardial Infarction Date:: February 15, 2013 History of Any Multi-Drug Resistant Organisms: MRSA Date of last positivie culture/infection: 11/09/17 MDRO Source:: PLEURAL FLUID Past Surgical History: Section, Cholecystectomy, Heart Catheterization, Hernia Repair, Orthopedic Surgery Additional Past Surgical History / Comment(s): Lt ankle surgery, several bronchosopies Past Anesthesia/Blood Transfusion Reactions: Previous Problems w/ Anesthesia Additional Past Anesthesia/Blood Transfusion Reaction / Comment(s): previously charted -pt stated that last April she coded possbily due to anesthetic-during bronchoscopy procedure with Dr Hicks Past Psychological History: Anxiety Smoking Status: Former smoker Past Alcohol Use History: None Reported Past Drug Use History: None Reported - Past Family History Father Family Medical History: Blood Disorder, Deep Vein Thrombosis (DVT), Myocardial Infarction (SD), Pulmonary Embolus Additional Family Medical History / Comment(s): polycythemia Mother Family Medical History: Deep Vein Thrombosis (DVT) Additional Family Medical History / Comment(s): DDD Sister(s) Family Medical History: No Reported History Brother(s) Family Medical History: No Reported History Son(s) Family Medical History: No Reported History Daughter(s) Family Medical History: No Reported History Medications and Allergies Home Medications Medication Instructions Recorded Confirmed Type Metoprolol Tartrate [Lopressor] 50 mg PO BID #60 tab 08/20/15 08/25/18 Rx lamoTRIgine [LaMICtal] 200 mg PO DAILY 03/22/16 08/25/18 History Bumetanide 2 mg PO DAILY 10/18/16 08/25/18 History Nystatin 100,000 Unit/gm Powd 1 applic TOPICAL BID 11/04/17 08/25/18 History [Mycostatin Powder] Apixaban [Eliquis] 10 mg PO BID 08/25/18 08/25/18 History Insulin Glargine,Hum.rec.anlog 22 unit SQ W/BRKFST 08/25/18 08/25/18 History [Lantus Solostar] Lactulose 20 gm PO TID PRN 08/25/18 08/25/18 History Magnesium Oxide [Mag-Ox] 400 mg PO BID 08/25/18 08/25/18 History Multivitamins, Thera [Multivitamin 1 tab PO DAILY 08/25/18 08/25/18 History (formulary)] Potassium Chloride ER [K-Dur 20] 40 meq PO DAILY 08/25/18 08/25/18 History predniSONE See Taper PO DIRECTED 08/25/18 08/25/18 History FLUoxetine HCL [PROzac] 20 mg PO DAILY 08/26/18 08/26/18 History Allergies Allergy/AdvReac Type Severity Reaction Status Date / Time cefepime [From Maxipime] Allergy Severe Rash/Hives Verified 08/25/18 18:37 Iodinated Contrast- Oral and Allergy Severe Rash/Hives Verified 08/25/18 18:37 IV Dye ketorolac tromethamine Allergy Severe Anaphylaxis Verified 08/25/18 18:37 [From Toradol] adhesive Allergy Rash/Hives Verified 08/25/18 18:37 rivaroxaban [From Xarelto] Allergy Rash/Hives Verified 08/25/18 18:37 sumatriptan [From Imitrex] Allergy Anaphylaxis Verified 08/25/18 18:37 sumatriptan succinate Allergy Anaphylaxis Verified 08/25/18 18:37 [From Imitrex] tramadol Allergy Anaphylaxis Verified 08/25/18 18:37 iodine AdvReac Intermediate Itching/severe Verified 08/25/18 18:37 hives vancomycin AdvReac Itching Verified 08/25/18 18:37 Rich wipes Allergy Severe Rash/Hives Uncoded 07/21/18 22:38 Physical Exam Vitals: Vital Signs Temp Pulse Pulse Resp BP BP Pulse Ox 08/26/18 14:05 98.6 F 103 H 16 92/62 93 L 08/26/18 12:32 111 H 103/71 08/26/18 08:30 98.1 F 112 H 16 92/60 98 08/25/18 20:12 98 F 100 24 109/78 96 08/25/18 20:00 100 24 08/25/18 19:29 93 16 120/91 Intake and Output 08/26/18 08/26/18 08/26/18 06:59 14:59 22:59 Intake Total 200 Balance 200 Intake: Oral 200 Other: # Voids 1 1 Weight 99.79 kg -GENERAL: The patient is alert and oriented x3, not in any acute distress. lost some weight , she is generally weak HEENT: Pupils are round and equally reacting to light. EOMI. No scleral icterus. No conjunctival pallor. Normocephalic, atraumatic. No pharyngeal erythema. No thyromegaly. CARDIOVASCULAR: S1 and S2 present. No murmurs, rubs, or gallops. -PULMONARY: Chest is clear to auscultation, no wheezing or crackles. right side chest wall tenderness ABDOMEN: Soft, nontender, nondistended, normoactive bowel sounds. No palpable organomegaly. MUSCULOSKELETAL: No joint swelling or deformity. EXTREMITIES: No cyanosis, clubbing, or pedal edema. NEUROLOGICAL: Gross neurological examination did not reveal any focal deficits. SKIN: No rashes. Results CBC & Chem 7: 08/25/18 17:45 08/25/18 17:45 Labs: Abnormal Lab Results - Last 24 Hours (Table) 08/26/18 08/26/18 08/26/18 Range/Units 08:19 12:33 17:07 POC Glucose (mg/dL) 121 H 165 H 185 H (75-99) mg/dL Thrombosis Risk Factor Assmnt - Choose All That Apply Any of the Below Risk Factors Present?: Yes Each Factor Represents 1 point: Abnormal pulmonary function (COPD), Age 41-60 y ears, Medical pt on bed rest, Obesity (BMI >25), Sepsis (< 1month), Serious lung disease incl. pneumonia (< 1month) Other congenital or acquired thrombophilia - If yes, enter type in comment: No Thrombosis Risk Factor Assessment Total Risk Factor Score: 6 Thrombosis Risk Factor Assessment Level: High Risk Assessment and Plan Assessment: generalized weakness and de-conditioning chronic Right-sided pleuritic chest pain adrenal insufficiency on steroid taper History of PE on anticoagulation History of pseudomonas infection in her pulmonary passages or History of COPD History of congestive heart failure Hyperlipidemia History of coronary artery disease Hypertension History of hysterectomy Hypothyroidism History of fibromyalgia and bipolar disorder Plan: this is a pleasant 48 yo F who presents with generalized weakness after prolonged hospitalization at [facility] for multiple medical problems. we will call PT/OT evaluation , call psych consult for adjusting medication . check echo of the heart . Labs and medication were reviewed.. Continue same treatment. Continue with symptomatic treatment. Resume home medication. Monitor lytes and vitals. DVT and GI prophylaxis. Further recommendations of the clinical course of the patient DVT prophylaxis: eliquis GI Prophylaxis: Pepcid PT/OT: Pending Prognosis is guarded
[2018-08-26 20:52] LABS: Glucose,Whole Blood 203 mg/dL (75-99)
[2018-08-26] MEDS: FAMOTIDINE 20 MG/2 ML VIAL IV SCH (22:01)
[2018-08-27 07:13] LABS: Glucose,Whole Blood 103 mg/dL (75-99)
[2018-08-27] MEDS: INSULIN DETEMIR (LEVEMIR) 100 UNIT/ML SYR SQ SCH (07:37)
[2018-08-27] MEDS: MAGNESIUM OXIDE 400 MG TAB PO SCH ×2 (07:38→21:08)
[2018-08-27] MEDS: lamoTRIgine 100 MG TAB PO SCH (07:38)
[2018-08-27] MEDS: predniSONE 10 MG TAB PO SCH (07:38)
[2018-08-27] MEDS: POTASSIUM CHLORIDE ER 20 MEQ TAB.ER PO SCH (07:38)
[2018-08-27] MEDS: HYDROcodone/APAP 7.5-325MG 1 EACH TAB PO PRN (07:38)
[2018-08-27] MEDS: METOPROLOL TARTRATE 50 MG TAB PO SCH ×2 (07:39→21:08)
[2018-08-27] MEDS: FAMOTIDINE 20 MG/2 ML VIAL IV SCH (07:39)
[2018-08-27] MEDS: MULTIVITAMINS, THERA 1 EACH TAB PO SCH (07:39)
[2018-08-27] MEDS: APIXABAN 5 MG TAB PO SCH (07:39)
[2018-08-27] MEDS: BUMETANIDE 1 MG TAB PO SCH (07:47)
[2018-08-27] MEDS: LIDOCAINE 5% PATCH TOPICAL SCH ×2 (07:47→11:39)
[2018-08-27] MEDS: NYSTATIN 100,000 UNIT/GM POWD 15 GM TOPICAL SCH ×2 (07:50→21:09)
[2018-08-27] MEDS ORDERED: SENNOSIDES 8.6 MG TAB PO PRN (09:04)
--- NOTE | 2018-08-27 09:50 | ECHOF ---
Referral Reason:Rule out heart disease MEASUREMENTS -------- HEIGHT: 167.6 cm WEIGHT: 99.8 kg BP: 101/65 IVSd: 1.3 cm (0.6 - 1.1) LVIDd: 3.3 cm (3.9 - 5.3) LVPWd: 1.2 cm (0.6 - 1.1) IVSs: 1.4 cm LVIDs: 2.4 cm LVPWs: 1.6 cm RAP: 5.00 mmHg RVSP: 25.78 mmHg FINDINGS -------- Sinus rhythm. This was a technically difficult study with suboptimal views. LIMITED STUDY FOR LV FUNCTION The left ventricular size is normal. There is mild concentric left ventricular hypertrophy. Overa ll left ventricular systolic function is low-normal with, an EF between 50 - 55 %. Lumason used The aortic valve is trileaflet and appears structurally normal. Trace to mild aortic regurgitation. CONCLUSIONS -------- 1. Sinus rhythm. 2. This was a technically difficult study with suboptimal views. 3. The left ventricular size is normal. 4. There is mild concentric left ventricular hypertrophy. 5. Overall left ventricular systolic function is low-normal with, an EF between 50 - 55 %. 6. Lumason used 7. The aortic valve is trileaflet and appears structurally normal. 8. Trace to mild aortic regurgitation. SUPERVISOR OF WAY: Roshni Corral [facility]
[2018-08-27 10:59] LABS: INR 0.9 (<1.2); Prothrombin Time 10.1 sec (9.0-12.0)
[2018-08-27 11:04] LABS: Partial Thromboplastin Time 20.1 sec (22.0-30.0)
[2018-08-27] MEDS: IPRATROPIUM-ALBUTEROL 3 ML NEB INHALATION PRN ×3 (11:31→20:11)
[2018-08-27 12:04] LABS: Glucose,Whole Blood 221 mg/dL (75-99)
[2018-08-27] MEDS: HYDROcodone/APAP 10-325MG 1 EACH TAB PO PRN (13:02)
[2018-08-27] MEDS ORDERED: MD COMMUNICATION TO PHARMACY 1 EACH MISC PO PRN (14:07)
[2018-08-27] MEDS ORDERED: MORPHINE SULFATE 2 MG/ML SYRINGE IVP STA (14:16)
[2018-08-27] MEDS: ENOXAPARIN 100 MG/ML SYRINGE SQ SCH (15:41)
--- NOTE | 2018-08-27 16:09 | P.CONS ---
History of Present Illness - Chief Complaint Medical debility - History of Present Illness I had the opportunity see patient for inpatient rehab consultation with regard to medical debility. She is known to me for chronic pain management patient with back pain. She was admitted to [facility] August 26 with shortness of breath, pulmonary fibrosis, COPD exacerbation, generalized weakness. Left leg venous Doppler negative for DVT. Cardiac echo with mild concentric LVH, only. PT reports two-person assistance for functional mobility. Fatigues. OT prescribed. Previous functional history as elicited patient crowded by : 48 showed right-handed white female who is lives in one floor home with . does cooking, laundry, driving. He lives with a 20-year-old son. Patient on disability related to pulmonary fibrosis. Describes her recently independent with standing shower and intermittent need of roller walker. Brigida Ramirez is regular doctor. Family history of father with cardiac disease. Review of Systems Review of systems: ENT: Denies sneezes or discharge. Eyes: Denies discharge or photophobia. Cardiac: Denies chest pain or palpitation. Pulmonary: Mild shortness of breath. Breast: Denies discharge or lumps. Gastrointestinal: Denies nausea, emesis, constipation, diarrhea. Genitourinary: Denies discharge or frequency. Musculoskeletal: Chronic back pain. Neurologic: Generalized weakness. Endocrine: Denies shakes or sweats. Oncology: Denies cancers. Dermatologic: Denies rash, itching, pruritus. ALLERGY/immunology: Denies sneezes, rashes. Past Medical History Past Medical History: Blood Disorder, Coronary Artery Disease (CAD), Heart Failure, COPD, Deep Vein Thrombosis (DVT), Fibromyalgia, Hyperlipidemia, Hypertension, Myocardial Infarction (CT), Pneumonia, Pulmonary Embolus (PE), Thyroid Disorder Additional Past Medical History / Comment(s): Sarcoidosis,polycythemia, bilateral PE's, bilateral DVTs, degenerative disk disorder, history of a CT and ventilator dependent respiratory failure with MRSA pneumonia, Viral meningitis in October 2014. Pulmonary fibrosis, home 0xygen at 3l n/c, recent pneumonia Last Myocardial Infarction Date:: February 15, 2013 History of Any Multi-Drug Resistant Organisms: MRSA Year Discovered:: 11/09/17 MDRO Source:: PLEURAL FLUID Past Surgical History: Section, Cholecystectomy, Heart Catheterization, Hernia Repair, Orthopedic Surgery Additional Past Surgical History / Comment(s): Lt ankle surgery, several bronchosopies Past Anesthesia/Blood Transfusion Reactions: Previous Problems w/ Anesthesia Additional Past Anesthesia/Blood Transfusion Reaction / Comm: previously charted -pt stated that last April she coded possbily due to anesthetic-during bronchoscopy procedure with Dr Hicks Past Psychological History: Anxiety Smoking Status: Former smoker Past Alcohol Use History: None Reported Past Drug Use History: None Reported - Past Family History Father Family Medical History: Blood Disorder, Deep Vein Thrombosis (DVT), Myocardial Infarction (CT), Pulmonary Embolus Additional Family Medical History / Comment(s): polycythemia Mother Family Medical History: Deep Vein Thrombosis (DVT) Additional Family Medical History / Comment(s): DDD Sister(s) Family Medical History: No Reported History Brother(s) Family Medical History: No Reported History Son(s) Family Medical History: No Reported History Daughter(s) Family Medical History: No Reported History Medications and Allergies Home Medications Medication Instructions Recorded Confirmed Type Metoprolol Tartrate [Lopressor] 50 mg PO BID #60 tab 08/20/15 08/25/18 Rx lamoTRIgine [LaMICtal] 200 mg PO DAILY 03/22/16 08/25/18 History Bumetanide 2 mg PO DAILY 10/18/16 08/25/18 History Nystatin 100,000 Unit/gm Powd 1 applic TOPICAL BID 11/04/17 08/25/18 History [Mycostatin Powder] Apixaban [Eliquis] 10 mg PO BID 08/25/18 08/25/18 History Insulin Glargine,Hum.rec.anlog 22 unit SQ W/BRKFST 08/25/18 08/25/18 History [Lantus Solostar] Lactulose 20 gm PO TID PRN 08/25/18 08/25/18 History Magnesium Oxide [Mag-Ox] 400 mg PO BID 08/25/18 08/25/18 History Multivitamins, Thera [Multivitamin 1 tab PO DAILY 08/25/18 08/25/18 History (formulary)] Potassium Chloride ER [K-Dur 20] 40 meq PO DAILY 08/25/18 08/25/18 History predniSONE See Taper PO DIRECTED 08/25/18 08/25/18 History FLUoxetine HCL [PROzac] 20 mg PO DAILY 08/26/18 08/26/18 History Allergies Allergy/AdvReac Type Severity Reaction Status Date / Time cefepime [From Maxipime] Allergy Severe Rash/Hives Verified 08/25/18 18:37 Iodinated Contrast- Oral and Allergy Severe Rash/Hives Verified 08/25/18 18:37 IV Dye ketorolac tromethamine Allergy Severe Anaphylaxis Verified 08/25/18 18:37 [From Toradol] adhesive Allergy Rash/Hives Verified 08/25/18 18:37 rivaroxaban [From Xarelto] Allergy Rash/Hives Verified 08/25/18 18:37 sumatriptan [From Imitrex] Allergy Anaphylaxis Verified 08/25/18 18:37 sumatriptan succinate Allergy Anaphylaxis Verified 08/25/18 18:37 [From Imitrex] tramadol Allergy Anaphylaxis Verified 08/25/18 18:37 iodine AdvReac Intermediate Itching/severe Verified 08/25/18 18:37 hives vancomycin AdvReac Itching Verified 08/25/18 18:37 Rich wipes Allergy Severe Rash/Hives Uncoded 07/21/18 22:38 Physical Exam Vitals: Vital Signs Temp Pulse Pulse Resp BP Pulse Ox 08/27/18 15:00 98.5 F 95 20 146/70 90 L 08/27/18 11:51 88 08/27/18 11:37 92 08/27/18 08:00 18 08/27/18 06:00 98.1 F 93 18 93/58 93 L 08/26/18 21:30 98.6 F 107 H 20 101/65 90 L 08/26/18 20:13 16 Intake and Output 08/27/18 08/27/18 08/27/18 06:59 14:59 22:59 Intake Total 1000 600 Balance 1000 600 Intake: Oral 1000 600 Other: Voiding Method Bedpan # Voids 4 3 Skin: Good color, texture, turgor. General: Overweight build and comfortable appearance. Head: Normocephalic, atraumatic. Eyes: Symmetric. Pupils equal round. Ears: Symmetric. Hearing within normal limits. Mouth: Clear. Neck: Supple. Carotid without bruit. Cardiac: Regular rate and rhythm. Lungs: Clear anteriorly and posteriorly. Abdomen: Soft active nontender. Protruded abdomen. Extremities: At least mild decrease tone. Saravanan limbs. Neurological: Mental status: Alert, cooperative, pleasant. Cranial nerves: Symmetric facial tone and trapezius. Motor: Can elevate the arms and thus at least 3/5. Legs poor. Sensation: Intact throughout. DTRs: Symmetric and equal throughout. Mobility: Requires total assistance to sit up in bed. Results CBC & Chem 7: 08/25/18 17:45 08/25/18 17:45 Labs: Abnormal Lab Results - Last 24 Hours (Table) 08/26/18 08/26/18 08/27/18 Range/Units 17:07 20:49 07:01 APTT (22.0-30.0) sec POC Glucose (mg/dL) 185 H 203 H 103 H (75-99) mg/dL 08/27/18 08/27/18 Range/Units 10:26 12:01 APTT 20.1 L (22.0-30.0) sec POC Glucose (mg/dL) 221 H (75-99) mg/dL Assessment and Plan (1) Acute exacerbation of chronic obstructive pulmonary disease (COPD) Current Visit: No Status: Acute Code(s): J44.1 - CHRONIC OBSTRUCTIVE PULMONARY DISEASE W (ACUTE) EXACERBATION SNOMED Code(s): 013965624 Plan: Impression: 1. Medical debility. 2. COPD and pulmonary fibrosis exacerbation, acute. 3. Chronic low back pain most likely related to fibromyalgia. 4. Generalized weakness. 5. Hypertension. 6. Dyslipidemia. 7. Coronary artery disease with history of CT and PE. 8. CHF. Comments and plan: PT ongoing and OT prescribed. Rehab prognosis currently guarded due to patient's severe weakness. Unsure patient has endurance to participate in 3 hour inpatient rehab program. We'll follow closely with yourself.
[2018-08-27 17:23] LABS: Glucose,Whole Blood 225 mg/dL (75-99)
[2018-08-27] MEDS: INSULIN ASPART (NovoLOG) 100 UNIT/ML VIAL SQ SCH ×2 (17:54→21:08)
[2018-08-27] MEDS ORDERED: WARFARIN 2 MG TAB PO ONE (18:00)
[2018-08-27] MEDS ORDERED: WARFARIN 10 MG TAB PO ONE (18:00)
[2018-08-27 20:39] LABS: Glucose,Whole Blood 146 mg/dL (75-99)
[2018-08-27] MEDS: FAMOTIDINE 20 MG TAB PO SCH (21:08)
--- NOTE | 2018-08-27 21:57 | P.PN ---
Subjective this is a pleasant 48 years old female with past medical history of COPD, congestive heart failure, DVT, hyperlipidemia, coronary artery disease, hy pertension, pulmonary embolism on anticoagulation, hysterectomy, hypothyroidism,polycythemia, fibromyalgia, bipolar disorder. 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 last time she was in this hospital for resp distress ,she was intubated and transferred to [facility] for further management. their she has extended course , where she was in and out of the ICU several time for septic shock , she has liver cirrhosis as well, she was treated with several antibiotics , eventually she is improved. pt also was found to have adrenal insufficiency and she is been discharged on prolonged course of steroid taper. upon discharge pt was advised to go to inpatient physical rehab , however pt did not want to stay at [facility] and she asked them to discharge her home. pt was generally weak and had difficulty move and she came to this hospital . currently she looks fully awake and oriented, she has lost some weight since last admission , she is not cyanotic any more , she is off oxygen therapy , she is a little tachycardic and BP on the low normal side, she is on Bumex. she has negative venous doppler for DVT in the left LE. on admission her vitals are stable, she is a little tachycardic and BP on the low normal side, she is saturating 93 % on RA, she is mildy pancytopenic with wbc 3.0 , Hb 10.6 and platelets 107. creatinine 0.4 and electrolytes within normal limits. pt is still complaining from chronic sharp right side chest pain on norco 10 mg , i discussed with pt and she agrees to try 7.5-325 mg of norco , also she is on several psych medication , we are going to ask psychiatrist to adjust her medication . she is on metoprolol for her tachycardia and she is on Eliquis, 08/27/2018 pt is fully awake and oriented , still has chest pain and she could not tolerate the lower dose of norco 7.5 mg when decreased yesterday trying to lower the chances of side effect and we put her back to norco 10 mg , the same dose she came in with, actually after physical therapy she needed more doses of parent eral morphine . today accu check is added. we consulted for evaluation for possible inpatient physical rehab. Objective - Vital Signs Vital signs: Vital Signs Temp 98.5 F 08/27/18 15:00 Pulse 90 08/27/18 20:24 Resp 20 08/27/18 16:00 BP 146/70 08/27/18 15:00 Pulse Ox 90 L 08/27/18 15:00 Intake & Output 08/27/18 08/27/18 08/28/18 06:59 18:59 06:59 Intake Total 1500 600 Balance 1500 600 Intake: Oral 1500 600 Other: Voiding Method Bedpan Bedpan # Voids 4 3 - Exam -GENERAL: The patient is alert and oriented x3, not in any acute distress. lost some weight , she is generally weak HEENT: Pupils are round and equally reacting to light. EOMI. No scleral icterus. No conjunctival pallor. Normocephalic, atraumatic. No pharyngeal erythema. No thyromegaly. CARDIOVASCULAR: S1 and S2 present. No murmurs, rubs, or gallops. -PULMONARY: Chest is clear to auscultation, no wheezing or crackles. right side chest wall tenderness ABDOMEN: Soft, nontender, nondistended, normoactive bowel sounds. No palpable organomegaly. MUSCULOSKELETAL: No joint swelling or deformity. EXTREMITIES: No cyanosis, clubbing, or pedal edema. NEUROLOGICAL: Gross neurological examination did not reveal any focal deficits. SKIN: No rashes. - Labs CBC & Chem 7: 08/25/18 17:45 08/25/18 17:45 Labs: Abnormal Lab Results - Last 24 Hours (Table) 08/26/18 08/27/18 08/27/18 Range/Units 20:49 07:01 10:26 APTT 20.1 L (22.0-30.0) sec POC Glucose (mg/dL) 203 H 103 H (75-99) mg/dL 08/27/18 08/27/18 Range/Units 12:01 17:13 APTT (22.0-30.0) sec POC Glucose (mg/dL) 221 H 225 H (75-99) mg/dL Assessment and Plan Assessment: generalized weakness and de-conditioning chronic Right-sided pleuritic chest pain adrenal insufficiency on steroid taper History of PE on anticoagulation History of pseudomonas infection in her pulmonary passages or History of COPD History of congestive heart failure Hyperlipidemia History of coronary artery disease Hypertension History of hysterectomy Hypothyroidism History of fibromyalgia and bipolar disorder Plan: this is a pleasant 48 yo F who presents with generalized weakness after prolonged hospitalization at [facility] for multiple medical problems. we will call PT/OT evaluation , call psych consult for adjusting medication . check echo of the heart . Labs and medication were reviewed.. Continue same treatment. Continue with symptomatic treatment. Resume home medication. Monitor lytes and vitals. DVT and GI prophylaxis. Further recommendations of the clinical course of the patient DVT prophylaxis: eliquis GI Prophylaxis: Pepcid PT/OT: Pending Prognosis is guarded
[2018-08-28] MEDS: ENOXAPARIN 100 MG/ML SYRINGE SQ SCH ×3 (00:08→21:20)
[2018-08-28] MEDS: HYDROcodone/APAP 10-325MG 1 EACH TAB PO PRN ×3 (01:42→13:22)
[2018-08-28 07:28] LABS: Glucose,Whole Blood 147 mg/dL (75-99)
[2018-08-28] MEDS: IPRATROPIUM-ALBUTEROL 3 ML NEB INHALATION PRN ×2 (07:48→20:58)
[2018-08-28] MEDS: INSULIN DETEMIR (LEVEMIR) 100 UNIT/ML SYR SQ SCH (08:35)
[2018-08-28] MEDS: INSULIN ASPART (NovoLOG) 100 UNIT/ML VIAL SQ SCH ×4 (08:36→21:20)
[2018-08-28] MEDS: LIDOCAINE 5% PATCH TOPICAL SCH ×3 (08:37→08:53)
[2018-08-28] MEDS: predniSONE 10 MG TAB PO SCH (08:37)
[2018-08-28] MEDS: MULTIVITAMINS, THERA 1 EACH TAB PO SCH (08:38)
[2018-08-28] MEDS: BUMETANIDE 1 MG TAB PO SCH (08:38)
[2018-08-28] MEDS: METOPROLOL TARTRATE 50 MG TAB PO SCH ×2 (08:38→21:21)
[2018-08-28] MEDS: NYSTATIN 100,000 UNIT/GM POWD 15 GM TOPICAL SCH ×2 (08:38→21:21)
[2018-08-28] MEDS: lamoTRIgine 100 MG TAB PO SCH (08:38)
[2018-08-28] MEDS: POTASSIUM CHLORIDE ER 20 MEQ TAB.ER PO SCH (08:38)
[2018-08-28] MEDS: FAMOTIDINE 20 MG TAB PO SCH ×2 (08:38→21:21)
[2018-08-28] MEDS: MAGNESIUM OXIDE 400 MG TAB PO SCH ×2 (08:38→21:21)
[2018-08-28 11:16] LABS: INR 1.1 (<1.2); Prothrombin Time 11.3 sec (9.0-12.0)
--- NOTE | 2018-08-28 12:03 | P.CN ---
Psychiatric Consult - . Consult date: 08/28/18 Consult:: Psychiatric medication adjustment 08/28/18 11:57 Assessment and Plan (1) Major depressive disorder Narrative/Plan: I was kindly asked to see this patient regarding her psychiatric medications and has the nurse and the patient explained to me she was taken off her Prozac and Xanax at her last hospitalization at [facility]. This is a pleasant 48 years old female with past medical history of COPD, congestive heart failure, DVT, hyperlipidemia, coronary artery disease, hypertension, pulmonary embolism on anticoagulation, hysterectomy, hypothyroidism,polycythemia, fibromyalgia, bipolar disorder. 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 last time she was in this hospital for resp distress ,she was intubated and transferred to [facility] for further management. their she has extended course , where she was in and out of the ICU several time for septic shock , she has liver cirrhosis as well, she was treated with several antibiotics , eventually she is improved. pt also was found to have adrenal insufficiency and she is been discharged on prolonged course of steroid taper. upon discharge pt was advised to go to inpatient physical rehab , however pt did not want to stay at [facility] and she asked them to discharge her home. pt was generally weak and had difficulty move and she came to this hospital. Past Medical History Past Medical History: Blood Disorder, Coronary Artery Disease (CAD), Heart Failure, COPD, Deep Vein Thrombosis (DVT), Fibromyalgia, Hyperlipidemia, Hypertension, Myocardial Infarction (DC), Pneumonia, Pulmonary Embolus (PE), Thyroid Disorder Additional Past Medical History / Comment(s): Sarcoidosis,polycythemia, bilateral PE's, bilateral DVTs, degenerative disk disorder, history of a DC and ventilator dependent respiratory failure with MRSA pneumonia, Viral meningitis in October 2014. Pulmonary fibrosis, home 0xygen at 3l n/c, recent pneumonia Last Myocardial Infarction Date:: February 15, 2013 History of Any Multi-Drug Resistant Organisms: MRSA Date of last positivie culture/infection: 11/09/17 MDRO Source:: PLEURAL FLUID Past Surgical History: Section, Cholecystectomy, Heart Catheterization, Hernia Repair, Orthopedic Surgery Additional Past Surgical History / Comment(s): Lt ankle surgery, several bronchosopies Past Anesthesia/Blood Transfusion Reactions: Previous Problems w/ Anesthesia Additional Past Anesthesia/Blood Transfusion Reaction / Comment(s): previously charted -pt stated that last April she coded possbily due to anesthetic-during bronchoscopy procedure with Dr Hicks Past Psychological History: Anxiety Smoking Status: Former smoker Past Alcohol Use History: None Reported Past Drug Use History: None Reported - Past Family History Father Family Medical History: Blood Disorder, Deep Vein Thrombosis (DVT), Myocardial Infarction (DC), Pulmonary Embolus Additional Family Medical History / Comment(s): polycythemia Mother Family Medical History: Deep Vein Thrombosis (DVT) Additional Family Medical History / Comment(s): DDD Sister(s) Family Medical History: No Reported History Brother(s) Family Medical History: No Reported History Son(s) Family Medical History: No Reported History Daughter(s) Family Medical History: No Reported History Medications and Allergies Home Medications Medication Instructions Recorded Confirmed Type Metoprolol Tartrate [Lopressor] 50 mg PO BID #60 tab 08/20/15 08/25/18 Rx lamoTRIgine [LaMICtal] 200 mg PO DAILY 03/22/16 08/25/18 History Bumetanide 2 mg PO DAILY 10/18/16 08/25/18 History Nystatin 100,000 Unit/gm Powd 1 applic TOPICAL BID 11/04/17 08/25/18 History [Mycostatin Powder] Apixaban [Eliquis] 10 mg PO BID 08/25/18 08/25/18 History Insulin Glargine,Hum.rec.anlog 22 unit SQ W/BRKFST 08/25/18 08/25/18 History [Lantus Solostar] Lactulose 20 gm PO TID PRN 08/25/18 08/25/18 History Magnesium Oxide [Mag-Ox] 400 mg PO BID 08/25/18 08/25/18 History Multivitamins, Thera [Multivitamin 1 tab PO DAILY 08/25/18 08/25/18 History (formulary)] Potassium Chloride ER [K-Dur 20] 40 meq PO DAILY 08/25/18 08/25/18 History predniSONE See Taper PO DIRECTED 08/25/18 08/25/18 History FLUoxetine HCL [PROzac] 20 mg PO DAILY 08/26/18 08/26/18 History Allergies Allergy/AdvReac Type Severity Reaction Status Date / Time cefepime [From Maxipime] Allergy Severe Rash/Hives Verified 08/25/18 18:37 Iodinated Contrast- Oral and Allergy Severe Rash/Hives Verified 08/25/18 18:37 IV Dye ketorolac tromethamine Allergy Severe Anaphylaxis Verified 08/25/18 18:37 [From Toradol] adhesive Allergy Rash/Hives Verified 08/25/18 18:37 rivaroxaban [From Xarelto] Allergy Rash/Hives Verified 08/25/18 18:37 sumatriptan [From Imitrex] Allergy Anaphylaxis Verified 08/25/18 18:37 sumatriptan succinate Allergy Anaphylaxis Verified 08/25/18 18:37 [From Imitrex] tramadol Allergy Anaphylaxis Verified 08/25/18 18:37 iodine AdvReac Intermediate Itching/severe Verified 08/25/18 18:37 hives vancomycin AdvReac Itching Verified 08/25/18 18:37 Rich wipes Allergy Severe Rash/Hives Uncoded 07/21/18 22:38 Mental status examination: This is a 48-year-old female who is sitting on the side of the bed fully dressed and talk on the telephone complaining about [facility] to them. I waited for her to get off the phone and explained to her was to introduce myself and she said all good eye need to get back on my Prozac. She is well groomed and dressed appears older than her stated age. Speech and language is spontaneous. Attitude and behaviors cooperative. Mood she states is depressed and anxious. Affect is full range. Orientation is to person place and time and situation. Thought content within normal. Risk factors she denies suicidal homicidal ideation and time. Her section she denies any auditory visual or tactile hallucinations. Thought process is goal oriented. Concentration and attention within normal per observation and interview with the patient. Recent memory and remote memory are within normal. Intelligence is average. Judgment and insight is fair. Psychiatric impression: Major depressive disorder recurrent in remission with Prozac Psychiatric recommendation: Prozac 20 mg by mouth daily and told her that is probably not mayo to take Xanax because that will shut down her respiratory drive and her midbrain region which she agreed not to use. Thank you for the consult and allowing me to participate in this most interesting patient Kwan Lowe D.O. PhD Current Visit: Yes Status: Acute Code(s): F32.9 - MAJOR DEPRESSIVE DISORDER, SINGLE EPISODE, UNSPECIFIED SNOMED Code(s): 315521254 Time with Patient: Less than 30
[2018-08-28 12:07] LABS: Glucose,Whole Blood 212 mg/dL (75-99)
[2018-08-28] MEDS ORDERED: MORPHINE SULFATE 2 MG/ML SYRINGE IVP STA (13:31)
[2018-08-28 17:12] LABS: Glucose,Whole Blood 147 mg/dL (75-99)
--- NOTE | 2018-08-28 17:31 | P.PN ---
Subjective this is a pleasant 48 years old female with past medical history of COPD, congestive heart failure, DVT, hyperlipidemia, coronary artery disease, hy pertension, pulmonary embolism on anticoagulation, hysterectomy, hypothyroidism,polycythemia, fibromyalgia, bipolar disorder. 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 last time she was in this hospital for resp distress ,she was intubated and transferred to [facility] for further management. their she has extended course , where she was in and out of the ICU several time for septic shock , she has liver cirrhosis as well, she was treated with several antibiotics , eventually she is improved. pt also was found to have adrenal insufficiency and she is been discharged on prolonged course of steroid taper. upon discharge pt was advised to go to inpatient physical rehab , however pt did not want to stay at [facility] and she asked them to discharge her home. pt was generally weak and had difficulty move and she came to this hospital . currently she looks fully awake and oriented, she has lost some weight since last admission , she is not cyanotic any more , she is off oxygen therapy , she is a little tachycardic and BP on the low normal side, she is on Bumex. she has negative venous doppler for DVT in the left LE. on admission her vitals are stable, she is a little tachycardic and BP on the low normal side, she is saturating 93 % on RA, she is mildy pancytopenic with wbc 3.0 , Hb 10.6 and platelets 107. creatinine 0.4 and electrolytes within normal limits. pt is still complaining from chronic sharp right side chest pain on norco 10 mg , i discussed with pt and she agrees to try 7.5-325 mg of norco , also she is on several psych medication , we are going to ask psychiatrist to adjust her medication . she is on metoprolol for her tachycardia and she is on Eliquis, 08/27/2018 pt is fully awake and oriented , still has chest pain and she could not tolerate the lower dose of norco 7.5 mg when decreased yesterday trying to lower the chances of side effect and we put her back to norco 10 mg , the same dose she came in with, actually after physical therapy she needed more doses of parent eral morphine . today accu check is added. we consulted for evaluation for possible inpatient physical rehab. 08/28/2018 Patient is awake and oriented. She clinically stable, same chronic right-sided chest pain, lidocaine patch is helping her as per patient, patient is an [employer] 10-325 mg and morphine as needed times when she participates in physical therapy. Patient weakness in her lower extremity is improving significantly but slowly. Patient can control her urine and bowel movement. She denies saddle anesthesia. No sensory loss. No urine or bowel incontinence.. She is having regular bowel movement and she can tolerate her diet. No urinary complaints. Vitals are stable. We'll check labs today which are still pending. Psychiatric input is appreciated and they recommended to stop Xanax and start Prozac 20 mg daily. Sugar control. Objective - Vital Signs Vital signs: Vital Signs Temp 98.6 F 08/28/18 14:32 Pulse 99 08/28/18 14:32 Resp 20 08/28/18 15:15 BP 127/72 08/28/18 14:32 Pulse Ox 97 08/28/18 14:32 Intake & Output 08/27/18 08/28/18 08/28/18 18:59 06:59 18:59 Intake Total 600 Balance 600 Intake: Oral 600 Other: Voiding Method Bedpan Bedpan # Voids 3 5 5 - Exam -GENERAL: The patient is alert and oriented x3, not in any acute distress. lost some weight , she is generally weak HEENT: Pupils are round and equally reacting to light. EOMI. No scleral icterus. No conjunctival pallor. Normocephalic, atraumatic. No pharyngeal erythema. No thyromegaly. CARDIOVASCULAR: S1 and S2 present. No murmurs, rubs, or gallops. -PULMONARY: Chest is clear to auscultation, no wheezing or crackles. right side chest wall tenderness ABDOMEN: Soft, nontender, nondistended, normoactive bowel sounds. No palpable organomegaly. MUSCULOSKELETAL: No joint swelling or deformity. EXTREMITIES: No cyanosis, clubbing, or pedal edema. NEUROLOGICAL: Gross neurological examination did not reveal any focal deficits. SKIN: No rashes. - Labs CBC & Chem 7: 08/25/18 17:45 08/25/18 17:45 Labs: Abnormal Lab Results - Last 24 Hours (Table) 08/27/18 08/28/18 08/28/18 Range/Units 20:37 07:13 11:55 POC Glucose (mg/dL) 146 H 147 H 212 H (75-99) mg/dL 08/28/18 Range/Units 16:55 POC Glucose (mg/dL) 147 H (75-99) mg/dL Assessment and Plan Assessment: generalized weakness and de-conditioning chronic Right-sided pleuritic chest pain adrenal insufficiency on steroid taper History of PE on anticoagulation History of pseudomonas infection in her pulmonary passages or History of COPD History of congestive heart failure Hyperlipidemia History of coronary artery disease Hypertension History of hysterectomy Hypothyroidism History of fibromyalgia and bipolar disorder Plan: this is a pleasant 48 yo F who presents with generalized weakness after prolonged hospitalization at [facility] for multiple medical problems. we will call PT/OT evaluation , call psych consult for adjusting medication . check echo of the heart . Labs and medication were reviewed.. Continue same treatment. Continue with symptomatic treatment. Resume home medication. Monitor lytes and vitals. DVT and GI prophylaxis. Further recommendations of the clinical course of the patient DVT prophylaxis: eliquis GI Prophylaxis: Pepcid PT/OT: Pending Prognosis is guarded
[2018-08-28] MEDS ORDERED: WARFARIN 10 MG TAB PO ONE (18:00)
[2018-08-28 18:11] LABS: African American GFR (CKD) >90 (>60 ml/min/1.73 sqM); Anion Gap 13 mmol/L; Blood Urea Nitrogen 10 mg/dL (7-17); Calcium 9.1 mg/dL (8.4-10.2); Carbon Dioxide 23 mmol/L (22-30); Chloride 100 mmol/L (98-107); Glucose 150 mg/dL (74-99); Potassium 4.2 mmol/L (3.5-5.1); Sodium 136 mmol/L (137-145)
[2018-08-28 18:38] LABS: Anisocytosis Moderate; HCT 31.9 % (34.0-46.0); HGB 9.9 gm/dL (11.4-16.0); Hypochromasia Moderate; MCH 31.8 pg (25.0-35.0); MCHC 31.1 g/dL (31.0-37.0); MCV 102.2 fL (80.0-100.0); Macrocytosis Moderate; Mean Platelet Volume 8.4; Platelet Count 117 k/uL (150-450); Poikilocytosis Slight; RBC 3.12 m/uL (3.80-5.40); RDW 20.7 % (11.5-15.5); WBC 2.1 k/uL (3.8-10.6)
[2018-08-28 19:14] LABS: Hemoglobin A1C 5.6 % (4.0-6.0)
[2018-08-28 19:30] LABS: Eosinophils # (M) 0.02 k/uL (0-0.7); Lymphocytes # (M) 0.71 k/uL (1.0-4.8); Monocytes # (M) 0.08 k/uL (0-1.0); Neutrophils # (M) 1.28 k/uL (1.3-7.7); Neutrophils % (M) 61 %; Nucleated Red Blood Cells 0 /100 WBC (0-0); Polychromasia Present; Total Cells Counted 100
[2018-08-28 20:53] LABS: Glucose,Whole Blood 147 mg/dL (75-99)
[2018-08-28] MEDS ORDERED: ACETAMINOPHEN TAB 325 MG TAB PO PRN (20:54)
[2018-08-29] MEDS: HYDROcodone/APAP 10-325MG 1 EACH TAB PO PRN ×2 (04:37→15:38)
[2018-08-29 07:37] LABS: Glucose,Whole Blood 90 mg/dL (75-99)
[2018-08-29] MEDS: LIDOCAINE 5% PATCH TOPICAL SCH (07:38)
[2018-08-29] MEDS: IPRATROPIUM-ALBUTEROL 3 ML NEB INHALATION PRN ×3 (07:39→19:44)
[2018-08-29] MEDS: POTASSIUM CHLORIDE ER 20 MEQ TAB.ER PO SCH (07:39)
[2018-08-29] MEDS: BUMETANIDE 1 MG TAB PO SCH (07:40)
[2018-08-29] MEDS: ENOXAPARIN 100 MG/ML SYRINGE SQ SCH ×2 (07:40→21:07)
[2018-08-29] MEDS: MAGNESIUM OXIDE 400 MG TAB PO SCH ×2 (07:40→21:07)
[2018-08-29] MEDS: predniSONE 10 MG TAB PO SCH (07:40)
[2018-08-29] MEDS: MULTIVITAMINS, THERA 1 EACH TAB PO SCH (07:40)
[2018-08-29] MEDS: FAMOTIDINE 20 MG TAB PO SCH ×2 (07:41→21:07)
[2018-08-29] MEDS: METOPROLOL TARTRATE 50 MG TAB PO SCH ×2 (07:41→21:07)
[2018-08-29] MEDS: lamoTRIgine 100 MG TAB PO SCH (07:41)
[2018-08-29] MEDS: INSULIN ASPART (NovoLOG) 100 UNIT/ML VIAL SQ SCH ×4 (07:41→21:07)
[2018-08-29] MEDS: FLUoxetine HCL 20 MG CAP PO SCH (07:41)
[2018-08-29] MEDS: NYSTATIN 100,000 UNIT/GM POWD 15 GM TOPICAL SCH ×2 (07:42→21:08)
[2018-08-29] MEDS: INSULIN DETEMIR (LEVEMIR) 100 UNIT/ML SYR SQ SCH (07:43)
[2018-08-29] MEDS ORDERED: MORPHINE SULFATE 2 MG/ML SYRINGE IVP STA (08:39)
--- NOTE | 2018-08-29 11:49 | P.PN ---
Subjective this is a pleasant 48 years old female with past medical history of COPD, congestive heart failure, DVT, hyperlipidemia, coronary artery disease, hy pertension, pulmonary embolism on anticoagulation, hysterectomy, hypothyroidism,polycythemia, fibromyalgia, bipolar disorder. 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 last time she was in this hospital for resp distress ,she was intubated and transferred to [facility] for further management. their she has extended course , where she was in and out of the ICU several time for septic shock , she has liver cirrhosis as well, she was treated with several antibiotics , eventually she is improved. pt also was found to have adrenal insufficiency and she is been discharged on prolonged course of steroid taper. upon discharge pt was advised to go to inpatient physical rehab , however pt did not want to stay at [facility] and she asked them to discharge her home. pt was generally weak and had difficulty move and she came to this hospital . currently she looks fully awake and oriented, she has lost some weight since last admission , she is not cyanotic any more , she is off oxygen therapy , she is a little tachycardic and BP on the low normal side, she is on Bumex. she has negative venous doppler for DVT in the left LE. on admission her vitals are stable, she is a little tachycardic and BP on the low normal side, she is saturating 93 % on RA, she is mildy pancytopenic with wbc 3.0 , Hb 10.6 and platelets 107. creatinine 0.4 and electrolytes within normal limits. pt is still complaining from chronic sharp right side chest pain on norco 10 mg , i discussed with pt and she agrees to try 7.5-325 mg of norco , also she is on several psych medication , we are going to ask psychiatrist to adjust her medication . she is on metoprolol for her tachycardia and she is on Eliquis, 08/27/2018 pt is fully awake and oriented , still has chest pain and she could not tolerate the lower dose of norco 7.5 mg when decreased yesterday trying to lower the chances of side effect and we put her back to norco 10 mg , the same dose she came in with, actually after physical therapy she needed more doses of parent eral morphine . today accu check is added. we consulted for evaluation for possible inpatient physical rehab. 08/28/2018 Patient is awake and oriented. She clinically stable, same chronic right-sided chest pain, lidocaine patch is helping her as per patient, patient is an [employer] 10-325 mg and morphine as needed times when she participates in physical therapy. Patient weakness in her lower extremity is improving significantly but slowly. Patient can control her urine and bowel movement. She denies saddle anesthesia. No sensory loss. No urine or bowel incontinence.. She is having regular bowel movement and she can tolerate her diet. No urinary complaints. Vitals are stable. We'll check labs today which are still pending. Psychiatric input is appreciated and they recommended to stop Xanax and start Prozac 20 mg daily. Sugar control. 08/12/2018 Patient clinically is looks similar to yesterday, she has this chronic right- sided chest pain, she has generalized body aches from the physical therapy. Patient feels generally weak but she has more weakness in her lower extremity and it is slowly improving. Patient states she developed this weakness since she was in the ICU at [facility].patient couldn't raise her legs little bit aonce her thigh is supported she can move legs more easily and to higher level, this could be best radha proximal myopathy,related to ICU myopathy versus otherwise. Because of this, we are going to ask for neurologist evalua tion.patient however denies sensory loss, no saddle anesthesia no abnormal movements. She has difficult IV access and she is requesting midline to be placed. Patient is willing to participate in physical therapy and pain medicine is provided in minimal possible dose. Also she has mild pancytopenia, her hemoglobin A1c is 5.6. This could be related to her liver disease, patient was instructed to follow-up with safety trainer upon discharge and she agrees.she does not want to take the statin because she thinks it affects her liver. Labs including INR are still pending today discussed with Objective - Vital Signs Vital signs: Vital Signs Temp 98.1 F 08/29/18 04:46 Pulse 96 08/29/18 07:55 Resp 18 08/29/18 08:00 BP 103/68 08/29/18 04:46 Pulse Ox 93 L 08/29/18 04:46 Intake & Output 08/28/18 08/29/18 08/29/18 18:59 06:59 18:59 Other: Voiding Method Bedpan Bedpan # Voids 5 1 - Exam -GENERAL: The patient is alert and oriented x3, not in any acute distress. lost some weight , she is generally weak HEENT: Pupils are round and equally reacting to light. EOMI. No scleral icterus. No conjunctival pallor. Normocephalic, atraumatic. No pharyngeal erythema. No thyromegaly. CARDIOVASCULAR: S1 and S2 present. No murmurs, rubs, or gallops. -PULMONARY: Chest is clear to auscultation, no wheezing or crackles. right side chest wall tenderness ABDOMEN: Soft, nontender, nondistended, normoactive bowel sounds. No palpable organomegaly. MUSCULOSKELETAL: No joint swelling or deformity. EXTREMITIES: No cyanosis, clubbing, or pedal edema. NEUROLOGICAL: Gross neurological examination did not reveal any focal deficits. SKIN: No rashes. - Labs CBC & Chem 7: 08/28/18 17:53 08/28/18 17:53 Labs: Abnormal Lab Results - Last 24 Hours (Table) 08/28/18 08/28/18 08/28/18 Range/Units 11:55 16:55 17:53 WBC 2.1 L (3.8-10.6) k/uL RBC 3.12 L (3.80-5.40) m/uL Hgb 9.9 L (11.4-16.0) gm/dL Hct 31.9 L (34.0-46.0) % MCV 102.2 H (80.0-100.0) fL RDW 20.7 H (11.5-15.5) % Plt Count 117 L (150-450) k/uL Neutrophils # (Manual) 1.28 L (1.3-7.7) k/uL Lymphocytes # (Manual) 0.71 L (1.0-4.8) k/uL Sodium (137-145) mmol/L Creatinine (0.52-1.04) mg/dL Glucose (74-99) mg/dL POC Glucose (mg/dL) 212 H 147 H (75-99) mg/dL 08/28/18 08/28/18 Range/Units 17:53 20:46 WBC (3.8-10.6) k/uL RBC (3.80-5.40) m/uL Hgb (11.4-16.0) gm/dL Hct (34.0-46.0) % MCV (80.0-100.0) fL RDW (11.5-15.5) % Plt Count (150-450) k/uL Neutrophils # (Manual) (1.3-7.7) k/uL Lymphocytes # (Manual) (1.0-4.8) k/uL Sodium 136 L (137-145) mmol/L Creatinine 0.44 L (0.52-1.04) mg/dL Glucose 150 H (74-99) mg/dL POC Glucose (mg/dL) 147 H (75-99) mg/dL Assessment and Plan Assessment: generalized weakness and de-conditioning , including weakness in her legs. pancytopenia, could be related to her liver disease possibleLiver cirrhosis, seen on ultrasound at [facility] chronic Right-sided pleuritic chest pain adrenal insufficiency on steroid taper History of PE on anticoagulation History of pseudomonas infection in her pulmonary passages or History of COPD History of congestive heart failure Hyperlipidemia History of coronary artery disease Hypertension History of hysterectomy Hypothyroidism History of fibromyalgia and bipolar disorder Plan: this is a pleasant 48 yo F who presents with generalized weakness after prolonged hospitalization at [facility] for multiple medical problems. we will call PT/OT evaluation , call psych consult for adjusting medication . check echo of the heart . Labs and medication were reviewed.. Continue same treatment. Continue with symptomatic treatment. Resume home medication. Monitor lytes and vitals. DVT and GI prophylaxis. Further recommendations of the clinical course of the patient DVT prophylaxis: eliquis GI Prophylaxis: Pepcid PT/OT: Pending Prognosis is guarded
[2018-08-29 12:29] LABS: Glucose,Whole Blood 113 mg/dL (75-99)
--- NOTE | 2018-08-29 14:24 | CDI ---
Documentation Clarification Form Date: 08/29/2018 2:09:11 PM From: Kellie العراقي RN, CCDS Phone: [phone] Admit Date: 08/29/2018 9:39:00 AM Patient Name: Meme Jones Visit Number: [id number] ATTENTION: The Clinical Documentation Specialists (CDI) and [facility] Coding Staff appreciate your assistance in clarifying documentation. Please respond to the clarification below the line at the bottom and electronically sign. The CDI & [facility] Coding staff will review the response and follow-up if needed. Please note: Queries are made part of the Legal Health Record. If you have any questions, please contact the author of this message via ITS. Dr. Harley Bush CHF is documented in the H&P and Progress Notes with a current Echocardiogram available. Please review and provide further specificity of type of CHF. History/Risk Factors CAD, CHF, COPD, DVT, CA, Fibromyalgia, PE, Home O2@ 3l NC, hx of vent dependant respiratory failure on previous admission. Clinical Indicators: VS/Pulse OX: Temp 98.3, HR 122, RR 22, B/P 120/91, spo2 95% ra Echocardiogram Results: EF 50-55% Chest X Ray: Treatment: Bumex 2 mg PO QD In your professional opinion, can you please clarify the acuity and type of CHF if known? Chronic Diastolic Heart Failure: Unable to Determine Other, please specify (Last Revision: July 2017) chronic diastolic CHF MTDD
--- NOTE | 2018-08-29 14:47 | CDI ---
Documentation Clarification Form Date: 08/29/2018 2:26:23 PM From: Kellie العراقي RN, CCDS Admit Date: 08/29/2018 9:39:00 AM Patient Name: Meme Jones Visit Number: [id number] ATTENTION: The Clinical Documentation Specialists (CDI) and [facility] Coding Staff appreciate your assistance in clarifying documentation. Please respond to the clarification below the line at the bottom and electronically sign. The CDI & [facility] Coding staff will review the response and follow-up if needed. Please note: Queries are made part of the Legal Health Record. If you have any questions, please contact the author of this message via ITS. Dr. Harley Bush History/Risk Factors: CHF, COPD, Home O2, hx of vent dependant respiratory failure Tobacco use: ex-smoker Home oxygen: 3-4 L NC Clinical Indicators: Pulmonary Consult: PMH: home oxygen at 3l n/c 08/25 ED Note: "She states she is no longer on antibiotics and is not requiring more than her baseline 4 L of home O2." Vital signs: Temp 98.3, HR 122, RR 22, B/P 120/91, spo2 95% ra Pulse oximetry: 93-95 % Lung/Breathing assessment: CTA Treatment: Breathing TX: Duoneb q 6 hrs prn Pulse ox per unit protocol O2: room air to 3L NC In your professional opinion, can you please clarify if these findings signify one of the following conditions? Acuity Chronic Unable to determine Specificity Respiratory Failure (further specify (if known)): With hypercapnia? (pCO2 >50 and pH <7.35) With hypoxia? (pO2 <60 mm Hg or SpO2 <91% on room air) Other Diagnosis, please specify Unable to determine (Last Revision: July 2017) probable chronic resp failure MTDD
[2018-08-29 17:11] LABS: Glucose,Whole Blood 126 mg/dL (75-99)
[2018-08-29] MEDS: MECLIZINE 12.5 MG TAB PO PRN (17:59)
[2018-08-29] MEDS ORDERED: MORPHINE SULFATE 2 MG/ML SYRINGE IM STA (19:39)
[2018-08-29 20:33] LABS: Glucose,Whole Blood 176 mg/dL (75-99)
[2018-08-29] MEDS: ONDANSETRON 4 MG/2 ML VIAL IVP PRN (22:18)
[2018-08-30 07:16] LABS: Glucose,Whole Blood 94 mg/dL (75-99)
[2018-08-30] MEDS: IPRATROPIUM-ALBUTEROL 3 ML NEB INHALATION PRN (07:28)
[2018-08-30] MEDS ORDERED: IPRATROPIUM-ALBUTEROL 3 ML NEB INHALATION PRN (07:33)
[2018-08-30] MEDS: INSULIN ASPART (NovoLOG) 100 UNIT/ML VIAL SQ SCH ×4 (07:56→22:27)
[2018-08-30] MEDS: INSULIN DETEMIR (LEVEMIR) 100 UNIT/ML SYR SQ SCH (08:09)
[2018-08-30] MEDS: BUMETANIDE 1 MG TAB PO SCH (08:10)
[2018-08-30] MEDS: MAGNESIUM OXIDE 400 MG TAB PO SCH ×2 (08:10→22:26)
[2018-08-30] MEDS: ENOXAPARIN 100 MG/ML SYRINGE SQ SCH ×2 (08:10→22:31)
[2018-08-30] MEDS: lamoTRIgine 100 MG TAB PO SCH (08:10)
[2018-08-30] MEDS: POTASSIUM CHLORIDE ER 20 MEQ TAB.ER PO SCH (08:10)
[2018-08-30] MEDS: FLUoxetine HCL 20 MG CAP PO SCH (08:11)
[2018-08-30] MEDS: METOPROLOL TARTRATE 50 MG TAB PO SCH ×2 (08:11→22:26)
[2018-08-30] MEDS: FAMOTIDINE 20 MG TAB PO SCH ×2 (08:11→22:27)
[2018-08-30] MEDS: predniSONE 10 MG TAB PO SCH (08:11)
[2018-08-30] MEDS: LIDOCAINE 5% PATCH TOPICAL SCH ×3 (08:11→08:12)
[2018-08-30] MEDS: MULTIVITAMINS, THERA 1 EACH TAB PO SCH (08:11)
[2018-08-30] MEDS: NYSTATIN 100,000 UNIT/GM POWD 15 GM TOPICAL SCH ×2 (08:15→22:37)
[2018-08-30] MEDS: HYDROcodone/APAP 10-325MG 1 EACH TAB PO PRN ×2 (08:55→22:31)
[2018-08-30 10:27] LABS: African American GFR (CKD) >90 (>60 ml/min/1.73 sqM); Anion Gap 6 mmol/L; Anisocytosis Moderate; Blood Urea Nitrogen 14 mg/dL (7-17); Carbon Dioxide 29 mmol/L (22-30); Chloride 102 mmol/L (98-107); Glucose 70 mg/dL (74-99); HCT 30.7 % (34.0-46.0); HGB 9.8 gm/dL (11.4-16.0); Hypochromasia Slight; MCH 32.4 pg (25.0-35.0); MCHC 31.9 g/dL (31.0-37.0); MCV 101.6 fL (80.0-100.0); Macrocytosis Moderate; Mean Platelet Volume 8.2; Platelet Count 136 k/uL (150-450); Poikilocytosis Slight; Potassium 3.4 mmol/L (3.5-5.1); RBC 3.02 m/uL (3.80-5.40); RDW 20.9 % (11.5-15.5); Sodium 137 mmol/L (137-145)
[2018-08-30] MEDS: IPRATROPIUM-ALBUTEROL 3 ML NEB INHALATION SCH ×4 (10:53→19:43)
[2018-08-30] MEDS ORDERED: MORPHINE SULFATE 2 MG/ML SYRINGE IVP PRN (10:59)
[2018-08-30 11:07] LABS: INR 3.4 (<1.2)
[2018-08-30 11:14] LABS: Band Neutrophils % 1 %; Eosinophils # (M) 0.05 k/uL (0-0.7); Neutrophils % (M) 27 %; Nucleated Red Blood Cells 4 /100 WBC (0-0); Total Cells Counted 200
[2018-08-30 11:15] LABS: Lymphocytes # (M) 2.78 k/uL (1.0-4.8); Monocytes # (M) 0.72 k/uL (0-1.0); Polychromasia Present; WBC 4.8 k/uL (3.8-10.6)
[2018-08-30 12:15] LABS: Glucose,Whole Blood 126 mg/dL (75-99)
[2018-08-30] MEDS: MECLIZINE 12.5 MG TAB PO PRN (13:56)
[2018-08-30 17:06] LABS: Glucose,Whole Blood 106 mg/dL (75-99)
[2018-08-30] MEDS ORDERED: WARFARIN 0.5 MG TAB PO ONE (18:00)
[2018-08-30 20:48] LABS: Glucose,Whole Blood 93 mg/dL (75-99)
[2018-08-30 23:25] VITALS: RESP 20
[2018-08-31] MEDS: MECLIZINE 12.5 MG TAB PO PRN (01:18)
[2018-08-31] MEDS: ONDANSETRON 4 MG/2 ML VIAL IVP PRN (04:15)
[2018-08-31 06:30] VITALS: BP 115/72; TEMP 97.9
[2018-08-31] MEDS: INSULIN ASPART (NovoLOG) 100 UNIT/ML VIAL SQ SCH ×2 (07:23→12:53)
[2018-08-31 07:33] LABS: Glucose,Whole Blood 89 mg/dL (75-99)
[2018-08-31] MEDS: IPRATROPIUM-ALBUTEROL 3 ML NEB INHALATION SCH ×3 (07:35→11:22)
--- NOTE | 2018-08-31 08:39 | P.PN ---
Subjective this is a pleasant 48 years old female with past medical history of COPD, congestive heart failure, DVT, hyperlipidemia, coronary artery disease, hy pertension, pulmonary embolism on anticoagulation, hysterectomy, hypothyroidism,polycythemia, fibromyalgia, bipolar disorder. 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 last time she was in this hospital for resp distress ,she was intubated and transferred to [facility] for further management. their she has extended course , where she was in and out of the ICU several time for septic shock , she has liver cirrhosis as well, she was treated with several antibiotics , eventually she is improved. pt also was found to have adrenal insufficiency and she is been discharged on prolonged course of steroid taper. upon discharge pt was advised to go to inpatient physical rehab , however pt did not want to stay at [facility] and she asked them to discharge her home. pt was generally weak and had difficulty move and she came to this hospital . currently she looks fully awake and oriented, she has lost some weight since last admission , she is not cyanotic any more , she is off oxygen therapy , she is a little tachycardic and BP on the low normal side, she is on Bumex. she has negative venous doppler for DVT in the left LE. on admission her vitals are stable, she is a little tachycardic and BP on the low normal side, she is saturating 93 % on RA, she is mildy pancytopenic with wbc 3.0 , Hb 10.6 and platelets 107. creatinine 0.4 and electrolytes within normal limits. pt is still complaining from chronic sharp right side chest pain on norco 10 mg , i discussed with pt and she agrees to try 7.5-325 mg of norco , also she is on several psych medication , we are going to ask psychiatrist to adjust her medication . she is on metoprolol for her tachycardia and she is on Eliquis, 08/27/2018 pt is fully awake and oriented , still has chest pain and she could not tolerate the lower dose of norco 7.5 mg when decreased yesterday trying to lower the chances of side effect and we put her back to norco 10 mg , the same dose she came in with, actually after physical therapy she needed more doses of parent eral morphine . today accu check is added. we consulted for evaluation for possible inpatient physical rehab. 08/28/2018 Patient is awake and oriented. She clinically stable, same chronic right-sided chest pain, lidocaine patch is helping her as per patient, patient is an Windber 10-325 mg and morphine as needed times when she participates in physical therapy. Patient weakness in her lower extremity is improving significantly but slowly. Patient can control her urine and bowel movement. She denies saddle anesthesia. No sensory loss. No urine or bowel incontinence.. She is having regular bowel movement and she can tolerate her diet. No urinary complaints. Vitals are stable. We'll check labs today which are still pending. Psychiatric input is appreciated and they recommended to stop Xanax and start Prozac 20 mg daily. Sugar control. 08/29/2018 Patient clinically is looks similar to yesterday, she has this chronic right- sided chest pain, she has generalized body aches from the physical therapy. Patient feels generally weak but she has more weakness in her lower extremity and it is slowly improving. Patient states she developed this weakness since she was in the ICU at [facility].patient couldn't raise her legs little bit aonce her thigh is supported she can move legs more easily and to higher level, this could be best radha proximal myopathy,related to ICU myopathy versus otherwise. Because of this, we are going to ask for neurologist evalua tion.patient however denies sensory loss, no saddle anesthesia no abnormal movements. She has difficult IV access and she is requesting midline to be placed. Patient is willing to participate in physical therapy and pain medicine is provided in minimal possible dose. Also she has mild pancytopenia, her hemoglobin A1c is 5.6. This could be related to her liver disease, patient was instructed to follow-up with awning spreader upon discharge and she agrees.she does not want to take the statin because she thinks it affects her liver. Labs including INR are still pending today discussed with neurology 08/30/2018 pt is awake , she has chronic pain in her right chest which is controlled with pain medication , pt presents with generalized weakness and more in both lower ext and right upper ext and hand she suppose to go to rehab as per pt from [facility] when she is discharged recently but she refused and came to this hospital today she was very excited and happy she could stand by herself for the first time , physical therapy are working with the pt and she is been evaluated by , neurology team was informed and their input is pending. pt is asking for morphine for physical therapy .wbc is improving and back to normal , Hb stable at 9.8. platelet is improving as well to 136. creatinine is normal . Objective - Vital Signs Vital signs: Vital Signs Temp 97.2 F L 08/30/18 14:25 Pulse 98 08/30/18 19:56 Resp 18 08/30/18 14:40 BP 108/69 08/30/18 14:25 Pulse Ox 98 08/30/18 15:23 Intake & Output 08/30/18 08/30/18 08/31/18 06:59 18:59 06:59 Intake Total 1500 Balance 1500 Weight 99.79 kg Intake: Oral 1500 Other: Voiding Method Bedpan # Voids 2 4 0 - Exam -GENERAL: The patient is alert and oriented x3, not in any acute distress. lost some weight , she is generally weak HEENT: Pupils are round and equally reacting to light. EOMI. No scleral icterus. No conjunctival pallor. Normocephalic, atraumatic. No pharyngeal erythema. No thyromegaly. CARDIOVASCULAR: S1 and S2 present. No murmurs, rubs, or gallops. -PULMONARY: Chest is clear to auscultation, no wheezing or crackles. right side chest wall tenderness ABDOMEN: Soft, nontender, nondistended, normoactive bowel sounds. No palpable organomegaly. MUSCULOSKELETAL: No joint swelling or deformity. EXTREMITIES: No cyanosis, clubbing, or pedal edema. NEUROLOGICAL: Gross neurological examination did not reveal any focal deficits. SKIN: No rashes. - Labs CBC & Chem 7: 08/30/18 09:30 08/30/18 09:30 Labs: Abnormal Lab Results - Last 24 Hours (Table) 08/30/18 08/30/18 08/30/18 Range/Units 09:30 09:30 09:30 RBC 3.02 L (3.80-5.40) m/uL Hgb 9.8 L (11.4-16.0) gm/dL Hct 30.7 L (34.0-46.0) % MCV 101.6 H (80.0-100.0) fL RDW 20.9 H (11.5-15.5) % Plt Count 136 L (150-450) k/uL Nucleated RBCs 4 H (0-0) /100 WBC PT 33.0 H (9.0-12.0) sec INR 3.4 H (<1.2) Potassium (3.5-5.1) mmol/L Creatinine (0.52-1.04) mg/dL Glucose (74-99) mg/dL POC Glucose (mg/dL) (75-99) mg/dL Vitamin B12 1717.0 H (200.0-944.0) pg/mL 08/30/18 08/30/18 08/30/18 Range/Units 09:30 12:12 17:05 RBC (3.80-5.40) m/uL Hgb (11.4-16.0) gm/dL Hct (34.0-46.0) % MCV (80.0-100.0) fL RDW (11.5-15.5) % Plt Count (150-450) k/uL Nucleated RBCs (0-0) /100 WBC PT (9.0-12.0) sec INR (<1.2) Potassium 3.4 L (3.5-5.1) mmol/L Creatinine 0.46 L (0.52-1.04) mg/dL Glucose 70 L (74-99) mg/dL POC Glucose (mg/dL) 126 H 106 H (75-99) mg/dL Vitamin B12 (200.0-944.0) pg/mL Assessment and Plan Assessment: generalized weakness and de-conditioning , including weakness in her legs. pancytopenia, could be related to her liver disease possibleLiver cirrhosis, seen on ultrasound at [facility] chronic Right-sided pleuritic chest pain adrenal insufficiency on steroid taper History of PE on anticoagulation History of pseudomonas infection in her pulmonary passages or History of COPD History of congestive heart failure Hyperlipidemia History of coronary artery disease Hypertension History of hysterectomy Hypothyroidism History of fibromyalgia and bipolar disorder Plan: this is a pleasant 48 yo F who presents with generalized weakness after prolonged hospitalization at [facility] for multiple medical problems. we will call PT/OT evaluation , call psych consult for adjusting medication . check echo of the heart . Labs and medication were reviewed.. Continue same treatment. Continue with symptomatic treatment. Resume home medication. Monitor lytes and vitals. DVT and GI prophylaxis. Further recommendations of the clinical course of the patient DVT prophylaxis: eliquis GI Prophylaxis: Pepcid PT/OT: Pending Prognosis is guarded
[2018-08-31] MEDS: INSULIN DETEMIR (LEVEMIR) 100 UNIT/ML SYR SQ SCH (09:07)
[2018-08-31] MEDS: MULTIVITAMINS, THERA 1 EACH TAB PO SCH (09:07)
[2018-08-31] MEDS: METOPROLOL TARTRATE 50 MG TAB PO SCH (09:07)
[2018-08-31] MEDS: predniSONE 10 MG TAB PO SCH (09:08)
[2018-08-31] MEDS: lamoTRIgine 100 MG TAB PO SCH (09:09)
[2018-08-31] MEDS: FAMOTIDINE 20 MG TAB PO SCH (09:09)
[2018-08-31] MEDS: MAGNESIUM OXIDE 400 MG TAB PO SCH (09:09)
[2018-08-31] MEDS: FLUoxetine HCL 20 MG CAP PO SCH (09:09)
[2018-08-31] MEDS: POTASSIUM CHLORIDE ER 20 MEQ TAB.ER PO SCH (09:09)
[2018-08-31] MEDS: NYSTATIN 100,000 UNIT/GM POWD 15 GM TOPICAL SCH (09:11)
[2018-08-31] MEDS: ENOXAPARIN 100 MG/ML SYRINGE SQ SCH (09:12)
[2018-08-31] MEDS: BUMETANIDE 1 MG TAB PO SCH (09:12)
[2018-08-31] MEDS: LIDOCAINE 5% PATCH TOPICAL SCH (09:13)
[2018-08-31] MEDS: HYDROcodone/APAP 10-325MG 1 EACH TAB PO PRN (09:16)
[2018-08-31 11:36] VITALS: PULSE 88
[2018-08-31 11:36] LABS: INR 1.7 (<1.2); Prothrombin Time 17.2 sec (9.0-12.0)
[2018-08-31 11:52] LABS: African American GFR (CKD) >90 (>60 ml/min/1.73 sqM); Blood Urea Nitrogen 9 mg/dL (7-17); Calcium 8.6 mg/dL (8.4-10.2); Carbon Dioxide 30 mmol/L (22-30); Chloride 98 mmol/L (98-107); Glucose 129 mg/dL (74-99)
[2018-08-31 12:11] LABS: Glucose,Whole Blood 169 mg/dL (75-99)
[2018-08-31 12:31] LABS: Potassium 3.6 mmol/L (3.5-5.1)
[2018-08-31 12:34] LABS: Anion Gap 6 mmol/L; Sodium 134 mmol/L (137-145)
--- NOTE | 2018-08-31 13:05 | P.DS ---
Providers Date of admission: 08/29/18 09:39 Expected date of discharge: 08/31/18 Attending physician: Harley Bush MD Consults: 08/26/18 14:43 Consult Physician Routine Consulting Provider: Kwan Lowe Consult Reason/Comments: med eval Do you want consulting provider notified?: Yes 08/27/18 12:53 Consult Physician Routine Consulting Provider: Bob Butler Consult Reason/Comments: inpatient rehab, weakness Do you want consulting provider notified?: Yes 08/29/18 08:39 Consult Physician Urgent Consulting Provider: Christian Marrero Consult Reason/Comments: weakness in legs, pt states after ICU at [facility] Do you want consulting provider notified?: Yes Primary care physician: [facility] Course: 48 years old female with past medical history of COPD, congestive heart failure, DVT, hyperlipidemia, coronary artery disease, hypertension, pulmonary embolism on anticoagulation, hysterectomy, hypothyroidism,polycythemia, fibromyalgia, bipolar disorder. 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 last time she was in this hospital for resp distress ,she was intubated and transferred to [facility] for further management. their she has extended course , where she was in and out of the ICU several time for septic shock , she has liver cirrhosis as well, she was treated with several antibiotics , eventually she is improved. pt also was found to have adrenal insufficiency and she is been discharged on prolonged course of steroid taper. upon discharge pt was advised to go to inpatient physical rehab , however pt did not want to stay at [facility] and she asked them to discharge her home. pt was generally weak and had difficulty move and she came to this hospital . currently she looks fully awake and oriented, she has lost some weight since last admission , she is not cyanotic any more , she is off oxygen therapy , she is a little tachycardic and BP on the low normal side, she is on Bumex. she has negative venous doppler for DVT in the left LE. on admission her vitals are stable, she is a little tachycardic and BP on the low normal side, she is saturating 93 % on RA, she is mildy pancytopenic with wbc 3.0 , Hb 10.6 and platelets 107. creatinine 0.4 and electrolytes within normal limits. pt is still complaining from chronic sharp right side chest pain on norco 10 mg , i discussed with pt and she agrees to try 7.5-325 mg of norco , also she is on several psych medication , we are going to ask psychiatrist to adjust her medication . she is on metoprolol for her tachycardia and she is on Eliquis, 08/27/2018 pt is fully awake and oriented , still has chest pain and she could not tolerate the lower dose of norco 7.5 mg when decreased yesterday trying to lower the chances of side effect and we put her back to norco 10 mg , the same dose she came in with, actually after physical therapy she needed more doses of parenteral morphine . today accu check is added. we consulted for evaluation for possible inpatient physical rehab. 08/28/2018 Patient is awake and oriented. She clinically stable, same chronic right-sided chest pain, lidocaine patch is helping her as per patient, patient is an Dunlo 10-325 mg and morphine as needed times when she participates in physical therapy. Patient weakness in her lower extremity is improving significantly but slowly. Patient can control her urine and bowel movement. She denies saddle anesthesia. No sensory loss. No urine or bowel incontinence.. She is having regular bowel movement and she can tolerate her diet. No urinary complaints. Vitals are stable. We'll check labs today which are still pending. Psychiatric input is appreciated and they recommended to stop Xanax and start Prozac 20 mg daily. Sugar control. 08/29/2018 Patient clinically is looks similar to yesterday, she has this chronic right- sided chest pain, she has generalized body aches from the physical therapy. Patient feels generally weak but she has more weakness in her lower extremity and it is slowly improving. Patient states she developed this weakness since she was in the ICU at [facility].patient couldn't raise her legs little bit aonce her thigh is supported she can move legs more easily and to higher level, this could be best radha proximal myopathy,related to ICU myopathy versus otherwise. Because of this, we are going to ask for neurologist evaluation.patient however denies sensory loss, no saddle anesthesia no abnormal movements. She has difficult IV access and she is requesting midline to be placed. Patient is willing to participate in physical therapy and pain medicine is provided in minimal possible dose. Also she has mild pancytopenia, her hemoglobin A1c is 5.6. This could be related to her liver disease, patient was instructed to follow-up with airport location manager upon discharge and she agrees.she does not want to take the statin because she thinks it affects her liver. Labs including INR are still pending today discussed with neurology 08/30/2018 pt is awake , she has chronic pain in her right chest which is controlled with pain medication , pt presents with generalized weakness and more in both lower ext and right upper ext and hand she suppose to go to rehab as per pt from [facility] when she is discharged recently but she refused and came to this hospital today she was very excited and happy she could stand by herself for the first time , physical therapy are working with the pt and she is been evaluated by , neurology team was informed and their input is pending. pt is asking for morphine for physical therapy .wbc is improving and back to normal , Hb stable at 9.8. platelet is improving as well to 136. creatinine is normal . 08/31/18; DC home with [facility] Plan - Discharge Summary New Discharge Prescriptions: Continue Metoprolol Tartrate [Lopressor] 50 mg PO BID #60 tab lamoTRIgine [LaMICtal] 200 mg PO DAILY Bumetanide 2 mg PO DAILY Nystatin 100,000 Unit/gm Powd [Mycostatin Powder] 1 applic TOPICAL BID predniSONE See Taper PO DIRECTED Potassium Chloride ER [K-Dur 20] 40 meq PO DAILY Multivitamins, Thera [Multivitamin (formulary)] 1 tab PO DAILY Magnesium Oxide [Mag-Ox] 400 mg PO BID Insulin Glargine,Hum.rec.anlog [Lantus Solostar] 22 unit SQ W/BRKFST Apixaban [Eliquis] 10 mg PO BID Lactulose 20 gm PO TID PRN PRN Reason: Constipation FLUoxetine HCL [PROzac] 20 mg PO DAILY Discharge Medication List Metoprolol Tartrate [Lopressor] 50 mg PO BID #60 tab 08/20/15 [Rx] lamoTRIgine [LaMICtal] 200 mg PO DAILY 03/22/16 [History] Bumetanide 2 mg PO DAILY 10/18/16 [History] Nystatin 100,000 Unit/gm Powd [Mycostatin Powder] 1 applic TOPICAL BID 11/04/17 [History] Apixaban [Eliquis] 10 mg PO BID 08/25/18 [History] Insulin Glargine,Hum.rec.anlog [Lantus Solostar] 22 unit SQ W/BRKFST 08/25/18 [History] Lactulose 20 gm PO TID PRN 08/25/18 [History] Magnesium Oxide [Mag-Ox] 400 mg PO BID 08/25/18 [History] Multivitamins, Thera [Multivitamin (formulary)] 1 tab PO DAILY 08/25/18 [History] Potassium Chloride ER [K-Dur 20] 40 meq PO DAILY 08/25/18 [History] predniSONE See Taper PO DIRECTED 08/25/18 [History] FLUoxetine HCL [PROzac] 20 mg PO DAILY 08/26/18 [History] Follow up Appointment(s)/Referral(s): Lisa Osman MD [STAFF PHYSICIAN] - 1 Week (needs cirrhosis work up ) [facility], [NON-STAFF] - Liz Koch MD [Primary Care Provider] - 1-2 days Discharge Disposition: HOME WITH HOME HEALTH SERVICES
[2018-08-31 13:21] LABS: Anisocytosis Slight; HCT 31.1 % (34.0-46.0); HGB 9.6 gm/dL (11.4-16.0); Hypochromasia Slight; MCH 31.5 pg (25.0-35.0); MCHC 30.9 g/dL (31.0-37.0); MCV 101.9 fL (80.0-100.0); Macrocytosis Moderate; Platelet Count 109 k/uL (150-450); Poikilocytosis Slight; RBC 3.05 m/uL (3.80-5.40); RDW 19.7 % (11.5-15.5)
--- NOTE | 2018-08-31 14:54 | P.CNNES ---
History of Present Illness Consult date: 08/31/18 Reason for Consult: Weakness and legs, post-ICU admission at [facility] History of Present Illness: Patient is a 48-year-old female who has been diagnosed with pulmonary fibrosis, and gets recurrent pneumonias. Patient states that she has been in and out of this hospital in July 2018. On 08/01/2018 she got respiratory distress, was intubated and transferred to [facility]. Patient was diagnosed with septic shock, also has hepatic cirrhosis, was treated with several antibiotics, eventually she improved. Patient was also found to have adrenal insufficiency and she is on prolonged course of steroid taper. Patient was intubated for 20 days and was extubated on 08/21/2018. Patient does not remember the time that she was intubated, probably was sedated. However, when she came to after extubation, she realized weakness of her arms and legs, right arm much worse. Patient denies any numbness of her arms or legs, only weakness. She has right wrist drop. She has difficulty with walking as a result. Patient states that she was not seen by any neurologist while at [facility]. Patient and her were not satisfied with the care, therefore forced discharge and then came to [facility] and was admitted. Patient feels her strength is getting better, but still very weak. Patient has hypertension, denies diabetes or alcohol use. She was a light smoker. Patient has been diagnosed with pulmonary sarcoid, but no previous diagnosis of neurosarcoid. Patient's blood tests shows sodium 134 potassium 3.6, renal functions are normal. Hemoglobin A1c 5.6 on 08/28/2018. Vitamin B12 normal 1,717. I do not have access of records from [facility]. On reviewing previous records, patient had an MRI of the brain with and without contrast on 08/06/2017, was normal. Review of Systems Diffuse body pains, weakness, abdominal pain. Denies any diplopia, loss of vision, slurred speech, facial droop. Denies chest pain. Patient does have shortness of breath. Past Medical History Past Medical History: Blood Disorder, Coronary Artery Disease (CAD), Heart Failure, COPD, Deep Vein Thrombosis (DVT), Fibromyalgia, Hyperlipidemia, Hypertension, Myocardial Infarction (MT), Pneumonia, Pulmonary Embolus (PE), Thyroid Disorder Additional Past Medical History / Comment(s): Sarcoidosis,polycythemia, bilateral PE's, bilateral DVTs, degenerative disk disorder, history of a MT and ventilator dependent respiratory failure with MRSA pneumonia, Viral meningitis in October 2014. Pulmonary fibrosis, home 0xygen at 3l n/c, recent pneumonia Last Myocardial Infarction Date:: February 15, 2013 History of Any Multi-Drug Resistant Organisms: MRSA Date of last positivie culture/infection: 11/09/17 MDRO Source:: PLEURAL FLUID Past Surgical History: Section, Cholecystectomy, Heart Catheterization, Hernia Repair, Orthopedic Surgery Additional Past Surgical History / Comment(s): Lt ankle surgery, several bronchosopies Past Anesthesia/Blood Transfusion Reactions: Previous Problems w/ Anesthesia Additional Past Anesthesia/Blood Transfusion Reaction / Comment(s): previously charted -pt stated that last April she coded possbily due to anesthetic-during bronchoscopy procedure with Dr Hicks Past Psychological History: Anxiety Smoking Status: Former smoker Past Alcohol Use History: None Reported Past Drug Use History: None Reported - Past Family History Father Family Medical History: Blood Disorder, Deep Vein Thrombosis (DVT), Myocardial Infarction (MT), Pulmonary Embolus Additional Family Medical History / Comment(s): polycythemia Mother Family Medical History: Deep Vein Thrombosis (DVT) Additional Family Medical History / Comment(s): DDD Sister(s) Family Medical History: No Reported History Brother(s) Family Medical History: No Reported History Son(s) Family Medical History: No Reported History Daughter(s) Family Medical History: No Reported History Medications and Allergies Home Medications Medication Instructions Recorded Confirmed Type Metoprolol Tartrate [Lopressor] 50 mg PO BID #60 tab 08/20/15 08/25/18 Rx lamoTRIgine [LaMICtal] 200 mg PO DAILY 03/22/16 08/25/18 History Bumetanide 2 mg PO DAILY 10/18/16 08/25/18 History Nystatin 100,000 Unit/gm Powd 1 applic TOPICAL BID 11/04/17 08/25/18 History [Mycostatin Powder] Apixaban [Eliquis] 10 mg PO BID 08/25/18 08/25/18 History Insulin Glargine,Hum.rec.anlog 22 unit SQ W/BRKFST 08/25/18 08/25/18 History [Lantus Solostar] Lactulose 20 gm PO TID PRN 08/25/18 08/25/18 History Magnesium Oxide [Mag-Ox] 400 mg PO BID 08/25/18 08/25/18 History Multivitamins, Thera [Multivitamin 1 tab PO DAILY 08/25/18 08/25/18 History (formulary)] Potassium Chloride ER [K-Dur 20] 40 meq PO DAILY 08/25/18 08/25/18 History predniSONE See Taper PO DIRECTED 08/25/18 08/25/18 History FLUoxetine HCL [PROzac] 20 mg PO DAILY 08/26/18 08/26/18 History Allergies Allergy/AdvReac Type Severity Reaction Status Date / Time cefepime [From Maxipime] Allergy Severe Rash/Hives Verified 08/25/18 18:37 Iodinated Contrast- Oral and Allergy Severe Rash/Hives Verified 08/25/18 18:37 IV Dye ketorolac tromethamine Allergy Severe Anaphylaxis Verified 08/25/18 18:37 [From Toradol] adhesive Allergy Rash/Hives Verified 08/25/18 18:37 rivaroxaban [From Xarelto] Allergy Rash/Hives Verified 08/25/18 18:37 sumatriptan [From Imitrex] Allergy Anaphylaxis Verified 08/25/18 18:37 sumatriptan succinate Allergy Anaphylaxis Verified 08/25/18 18:37 [From Imitrex] tramadol Allergy Anaphylaxis Verified 08/25/18 18:37 iodine AdvReac Intermediate Itching/severe Verified 08/25/18 18:37 hives vancomycin AdvReac Itching Verified 08/25/18 18:37 Rich wipes Allergy Severe Rash/Hives Uncoded 07/21/18 22:38 Physical Examination - Vital Signs Vital Signs: Vital Signs Temp Pulse Pulse Resp BP Pulse Ox 08/31/18 11:35 88 08/31/18 11:23 84 08/31/18 06:00 97.9 F 101 H 20 115/72 91 L 08/30/18 23:26 20 08/30/18 21:30 98.1 F 111 H 20 101/68 91 L 08/30/18 19:56 98 08/30/18 19:44 94 08/30/18 15:41 98 08/30/18 15:23 98 98 08/30/18 14:40 18 Intake and Output 08/30/18 08/31/18 08/31/18 22:59 06:59 14:59 Intake Total 350 500 Balance 350 500 Intake: Oral 350 500 Other: Voiding Method Bedpan Bedpan # Voids 2 3 On examination patient is a middle aged female, in mild distress because of shortness of breath, and diffuse pains. Patient otherwise is alert and awake, fully oriented. She is slightly irritable, gets easily upset. Very tender to touch. Her speech and language functions are normal. Attention and concentration fund of knowledge appears adequate. On cranial nerve examination pupils are round and reacting, visual diana are full,. Face is symmetric, tongue protrudes to the midline. Palate elevation and sensation normal. On muscle strength testing, patient is diffusely weak distally > proximally with asymmetric right wrist drop. On detailed testing (right/left) deltoid 4+/5-, biceps 3+4-/4+ triceps 4/4, rubber trimmer 4/4, wrist extension 2/4+, finger extension 3+/4-, hip flexion 4/4, knee extension 5/5, ankle dorsiflexion 3/3+4-, toe extension 3+/3+. Reflexes are trace to 1 in the upper limbs, but difficult to assess because of patient's sensitivity. Her knees are 1+ to 2, ankles 1+. Plantars are withdrawal. Patient extremely sensitive to touch. Sensory for touch is normal bilaterally. Gait deferred. Results - Laboratory Findings CBC and BMP: 08/31/18 11:07 08/31/18 11:07 Abnormal Lab Findings: Abnormal Labs 08/25/18 08/25/18 08/26/18 17:45 17:45 08:19 WBC 3.0 L RBC 3.27 L Hgb 10.6 L Hct 32.2 L MCV MCHC RDW 21.3 H Plt Count 107 L Neutrophils # (Manual) Lymphocytes # 0.5 L Lymphocytes # (Manual) Nucleated RBCs PT INR APTT Sodium Potassium Creatinine 0.44 L Glucose 143 H POC Glucose (mg/dL) 121 H Vitamin B12 08/26/18 08/26/18 08/26/18 12:33 17:07 20:49 WBC RBC Hgb Hct MCV MCHC RDW Plt Count Neutrophils # (Manual) Lymphocytes # Lymphocytes # (Manual) Nucleated RBCs PT INR APTT Sodium Potassium Creatinine Glucose POC Glucose (mg/dL) 165 H 185 H 203 H Vitamin B12 08/27/18 08/27/18 08/27/18 07:01 10:26 12:01 WBC RBC Hgb Hct MCV MCHC RDW Plt Count Neutrophils # (Manual) Lymphocytes # Lymphocytes # (Manual) Nucleated RBCs PT INR APTT 20.1 L Sodium Potassium Creatinine Glucose POC Glucose (mg/dL) 103 H 221 H Vitamin B12 08/27/18 08/27/18 08/28/18 17:13 20:37 07:13 WBC RBC Hgb Hct MCV MCHC RDW Plt Count Neutrophils # (Manual) Lymphocytes # Lymphocytes # (Manual) Nucleated RBCs PT INR APTT Sodium Potassium Creatinine Glucose POC Glucose (mg/dL) 225 H 146 H 147 H Vitamin B12 08/28/18 08/28/18 08/28/18 11:55 16:55 17:53 WBC 2.1 L RBC 3.12 L Hgb 9.9 L Hct 31.9 L MCV 102.2 H MCHC RDW 20.7 H Plt Count 117 L Neutrophils # (Manual) 1.28 L Lymphocytes # Lymphocytes # (Manual) 0.71 L Nucleated RBCs PT INR APTT Sodium Potassium Creatinine Glucose POC Glucose (mg/dL) 212 H 147 H Vitamin B12 08/28/18 08/28/18 08/29/18 17:53 20:46 12:27 WBC RBC Hgb Hct MCV MCHC RDW Plt Count Neutrophils # (Manual) Lymphocytes # Lymphocytes # (Manual) Nucleated RBCs PT INR APTT Sodium 136 L Potassium Creatinine 0.44 L Glucose 150 H POC Glucose (mg/dL) 147 H 113 H Vitamin B12 08/29/18 08/29/18 08/30/18 17:10 20:32 09:30 WBC RBC Hgb Hct MCV MCHC RDW Plt Count Neutrophils # (Manual) Lymphocytes # Lymphocytes # (Manual) Nucleated RBCs PT INR APTT Sodium Potassium Creatinine Glucose POC Glucose (mg/dL) 126 H 176 H Vitamin B12 1717.0 H 08/30/18 08/30/18 08/30/18 09:30 09:30 09:30 WBC RBC 3.02 L Hgb 9.8 L Hct 30.7 L MCV 101.6 H MCHC RDW 20.9 H Plt Count 136 L Neutrophils # (Manual) Lymphocytes # Lymphocytes # (Manual) Nucleated RBCs 4 H PT 33.0 H INR 3.4 H APTT Sodium Potassium 3.4 L Creatinine 0.46 L Glucose 70 L POC Glucose (mg/dL) Vitamin B12 08/30/18 08/30/18 08/31/18 12:12 17:05 11:07 WBC 3.0 L RBC 3.05 L Hgb 9.6 L Hct 31.1 L MCV 101.9 H MCHC 30.9 L RDW 19.7 H Plt Count 109 L Neutrophils # (Manual) Lymphocytes # Lymphocytes # (Manual) Nucleated RBCs PT INR APTT Sodium Potassium Creatinine Glucose POC Glucose (mg/dL) 126 H 106 H Vitamin B12 08/31/18 08/31/18 08/31/18 11:07 11:07 11:55 WBC RBC Hgb Hct MCV MCHC RDW Plt Count Neutrophils # (Manual) Lymphocytes # Lymphocytes # (Manual) Nucleated RBCs PT 17.2 H INR 1.7 H APTT Sodium 134 L Potassium Creatinine 0.41 L Glucose 129 H POC Glucose (mg/dL) 169 H Vitamin B12 Assessment and Plan Assessment: * 48-year-old female, who has prolonged hospitalization in the critical care unit due to pneumonia with septic shock, intubated for 20 days, noticed weakness of her arms and legs postextubation, when she came to. 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 No evidence of Guillain-Bradley, as patient still has preserved reflexes. * Right wrist drop, likely due to above. * History of pulmonary sarcoidosis. Her previous brain MRI from July 2017 was negative with no evidence of neurosarcoid. Plan: * Suggest follow-up with neurologist as an outpatient. * Patient may need an EMG and nerve conductions of upper and lower extremities if her strength does not improve with time. * I would suggest a wrist brace for right wrist drop. * Patient's B12, hemoglobin A1c are normal. * Patient is being discharged to rehab facility.
[2018-08-31 15:56] LABS: Eosinophils # (M) 0.06 k/uL (0-0.7); Lymphocytes # (M) 1.59 k/uL (1.0-4.8); Monocytes # (M) 0.45 k/uL (0-1.0); Neutrophils % (M) 30 %; Nucleated Red Blood Cells 0 /100 WBC (0-0); Total Cells Counted 100
[2018-08-31 15:57] LABS: Anisocytosis (M) Present; Poikilocytosis (M) Present; Polychromasia Present
[2018-08-31] MEDS ORDERED: WARFARIN 7.5 MG TAB PO ONE (18:00)
[2018-09-01] MEDS ORDERED: predniSONE 10 MG TAB PO SCH (07:30)
[2018-09-08] MEDS ORDERED: predniSONE 10 MG TAB PO SCH (07:30)
[2018-09-15] MEDS ORDERED: predniSONE 5 MG TAB PO SCH (07:30)
== END 2018-08-31 14:39 | disposition home health service (06) | DRG 74 ==
LOC: EC 16:31 → 4MS4W 18:29 → OBSVTOIN 08-29 09:39
PROVIDERS: ADMIT Internal Medicine; ATTEND Internal Medicine
PROC: 05HF33Z Insertion of Infusion Device into Left Cephalic Vein, Percutaneous Approach (ICD-10-PCS; principal; 2018-08-30 10:15)
DX: G62.81 Critical illness polyneuropathy (principal); G72.81 Critical illness myopathy; D61.818 Other pancytopenia; I50.32 Chronic diastolic (congestive) heart failure; J96.10 Chronic respiratory failure, unspecified whether with hypoxia or hypercapnia; E27.40 Unspecified adrenocortical insufficiency; J44.1 Chronic obstructive pulmonary disease with (acute) exacerbation; F33.40 Major depressive disorder, recurrent, in remission, unspecified; I11.0 Hypertensive heart disease with heart failure; D75.1 Secondary polycythemia; J84.10 Pulmonary fibrosis, unspecified; K74.60 Unspecified cirrhosis of liver; D86.0 Sarcoidosis of lung; E03.9 Hypothyroidism, unspecified; M79.7 Fibromyalgia; G89.29 Other chronic pain; M54.5 Low back pain; M21.331 Wrist drop, right wrist; E78.5 Hyperlipidemia, unspecified; F41.9 Anxiety disorder, unspecified; I25.10 Atherosclerotic heart disease of native coronary artery without angina pectoris; I25.2 Old myocardial infarction; Z79.01 Long term (current) use of anticoagulants; Z79.4 Long term (current) use of insulin; Z79.899 Other long term (current) drug therapy; Z86.718 Personal history of other venous thrombosis and embolism; Z86.711 Personal history of pulmonary embolism; Z87.01 Personal history of pneumonia (recurrent); Z86.61 Personal history of infections of the central nervous system; Z86.14 Personal history of Methicillin resistant Staphylococcus aureus infection; Z98.891 History of uterine scar from previous surgery; Z90.49 Acquired absence of other specified parts of digestive tract; Z87.891 Personal history of nicotine dependence; Z90.710 Acquired absence of both cervix and uterus; Z88.1 Allergy status to other antibiotic agents; Z91.041 Radiographic dye allergy status; Z88.5 Allergy status to narcotic agent; Z88.8 Allergy status to other drugs, medicaments and biological substances; Z91.048 Other nonmedicinal substance allergy status; Z82.49 Family history of ischemic heart disease and other diseases of the circulatory system; Z83.2 Family history of diseases of the blood and blood-forming organs and certain disorders involving the immune mechanism; Z82.69 Family history of other diseases of the musculoskeletal system and connective tissue
CPT/HCPCS: 36410; 36415; 76937; 80048; 82607; 83036; 85025; 85610; 85730; 93005; 93308; 94640; 99285

== ENCOUNTER 2018-09-04 00:53 | Emergency (ER) | payer BC, OTHER ==
[2018-09-04 01:01] VITALS: BP 113/96; PULSE 124; TEMP 100.9
[2018-09-04] MEDS ORDERED: MUPIROCIN 2% OINT 22 GM TUBE TOPICAL STA (01:32)
[2018-09-04 02:08] LABS: Anisocytosis Slight; Basophils % (A) 1 %; Eosinophils # (A) 0.1 k/uL (0-0.7); Eosinophils % (A) 1 %; HCT 29.2 % (34.0-46.0); HGB 9.1 gm/dL (11.4-16.0); Hypochromasia Moderate; Lymphocytes # (A) 2.3 k/uL (1.0-4.8); Lymphocytes % (A) 38 %; MCH 31.1 pg (25.0-35.0); MCHC 31.3 g/dL (31.0-37.0); MCV 99.5 fL (80.0-100.0); Macrocytosis Moderate; Mean Platelet Volume 7.8; Monocytes # (A) 0.7 k/uL (0-1.0); Monocytes % (A) 11 %; Neutrophils # (A) 2.8 k/uL (1.3-7.7); Neutrophils % (A) 46 %; Platelet Count 205 k/uL (150-450); Poikilocytosis Moderate; RBC 2.94 m/uL (3.80-5.40); RDW 19.9 % (11.5-15.5); WBC 6.1 k/uL (3.8-10.6)
[2018-09-04 02:24] LABS: Anion Gap 9 mmol/L; Blood Urea Nitrogen 10 mg/dL (7-17); C Reactive Protein 75.7 mg/L (<10.0); Calcium 9.1 mg/dL (8.4-10.2); Carbon Dioxide 25 mmol/L (22-30); Chloride 104 mmol/L (98-107); Glucose 94 mg/dL (74-99); Potassium 3.3 mmol/L (3.5-5.1); Sodium 138 mmol/L (137-145)
[2018-09-04] MEDS ORDERED: HYDROcodone/APAP 5-325MG 1 EACH TAB PO STA (03:02)
--- NOTE | 2018-09-04 04:04 | ED ---
Wound/Laceration HPI - General Chief Complaint: Wound/Laceration Stated Complaint: Ulcers Time Seen by Provider: 09/04/18 01:11 Source: patient, EMS Mode of arrival: EMS Limitations: physical limitation - History of Present Illness Initial Comments: Patient is a 48-year-old woman who comes to the emergency department with complaint of having suspected left buttock infection. The patient had been in the hospital as sequela of stroke, and they stated that they felt she would had developed decubitus ulcer that was infected. There is no systemic symptoms, including fever or chills, palpitations, chest pain, dyspnea. -: days(s) Location: other (Left buttock) Place: home Context: other (Suspected pressure ulcer) Associated Symptoms: pain - Related Data Home Medications Medication Instructions Recorded Confirmed lamoTRIgine [LaMICtal] 200 mg PO DAILY 03/22/16 08/25/18 Bumetanide 2 mg PO DAILY 10/18/16 08/25/18 Nystatin 100,000 Unit/gm Powd 1 applic TOPICAL BID 11/04/17 08/25/18 [Mycostatin Powder] Apixaban [Eliquis] 10 mg PO BID 08/25/18 08/25/18 Insulin Glargine,Hum.rec.anlog 22 unit SQ W/BRKFST 08/25/18 08/25/18 [Lantus Solostar] Lactulose 20 gm PO TID PRN 08/25/18 08/25/18 Magnesium Oxide [Mag-Ox] 400 mg PO BID 08/25/18 08/25/18 Multivitamins, Thera [Multivitamin 1 tab PO DAILY 08/25/18 08/25/18 (formulary)] Potassium Chloride ER [K-Dur 20] 40 meq PO DAILY 08/25/18 08/25/18 predniSONE See Taper PO DIRECTED 08/25/18 08/25/18 FLUoxetine HCL [PROzac] 20 mg PO DAILY 08/26/18 08/26/18 Previous Rx's Medication Instructions Recorded Metoprolol Tartrate [Lopressor] 50 mg PO BID #60 tab 08/20/15 Allergies Allergy/AdvReac Type Severity Reaction Status Date / Time cefepime [From Maxipime] Allergy Severe Rash/Hives Verified 08/25/18 18:37 Iodinated Contrast- Oral and Allergy Severe Rash/Hives Verified 08/25/18 18:37 IV Dye ketorolac tromethamine Allergy Severe Anaphylaxis Verified 08/25/18 18:37 [From Toradol] adhesive Allergy Rash/Hives Verified 08/25/18 18:37 rivaroxaban [From Xarelto] Allergy Rash/Hives Verified 08/25/18 18:37 sumatriptan [From Imitrex] Allergy Anaphylaxis Verified 08/25/18 18:37 sumatriptan succinate Allergy Anaphylaxis Verified 08/25/18 18:37 [From Imitrex] tramadol Allergy Anaphylaxis Verified 08/25/18 18:37 iodine AdvReac Intermediate Itching/severe Verified 08/25/18 18:37 hives vancomycin AdvReac Itching Verified 08/25/18 18:37 Rich wipes Allergy Severe Rash/Hives Uncoded 07/21/18 22:38 Review of Systems ROS Statement: Those systems with pertinent positive or pertinent negative responses have been documented in the HPI. ROS Other: All systems not noted in ROS Statement are negative. Constitutional: Denies: fever, chills Respiratory: Denies: cough, dyspnea Cardiovascular: Reports: edema (Leg). Denies: chest pain, palpitations Gastrointestinal: Denies: abdominal pain, nausea, vomiting Genitourinary: Denies: dysuria, hematuria Musculoskeletal: Denies: back pain Skin: Reports: as per HPI, lesions. Denies: rash Hematological/Lymphatic: Denies: easy bleeding Past Medical History Past Medical History: Blood Disorder, Coronary Artery Disease (CAD), Heart Failure, COPD, Deep Vein Thrombosis (DVT), Fibromyalgia, Hyperlipidemia, Hypertension, Myocardial Infarction (VA), Pneumonia, Pulmonary Embolus (PE), Thyroid Disorder Additional Past Medical History / Comment(s): Sarcoidosis,polycythemia, bilateral PE's, bilateral DVTs, degenerative disk disorder, history of a VA and ventilator dependent respiratory failure with MRSA pneumonia, Viral meningitis in October 2014. Pulmonary fibrosis, home 0xygen at 3l n/c, recent pneumonia, stroke August 15 affecting legs and right arm Last Myocardial Infarction Date:: February 15, 2013 History of Any Multi-Drug Resistant Organisms: MRSA Date of last positivie culture/infection: 11/09/17 MDRO Source:: PLEURAL FLUID Past Surgical History: Section, Cholecystectomy, Heart Catheterization, Hernia Repair, Orthopedic Surgery Additional Past Surgical History / Comment(s): Lt ankle surgery, several bronchosopies Past Anesthesia/Blood Transfusion Reactions: Previous Problems w/ Anesthesia Additional Past Anesthesia/Blood Transfusion Reaction / Comment(s): previously charted -pt stated that last April she coded possbily due to anesthetic-during bronchoscopy procedure with Dr Hicks Past Psychological History: Anxiety Smoking Status: Former smoker Past Alcohol Use History: None Reported Past Drug Use History: None Reported - Past Family History Father Family Medical History: Blood Disorder, Deep Vein Thrombosis (DVT), Myocardial Infarction (VA), Pulmonary Embolus Additional Family Medical History / Comment(s): polycythemia Mother Family Medical History: Deep Vein Thrombosis (DVT) Additional Family Medical History / Comment(s): DDD Sister(s) Family Medical History: No Reported History Brother(s) Family Medical History: No Reported History Son(s) Family Medical History: No Reported History Daughter(s) Family Medical History: No Reported History General Exam Limitations: physical limitation General appearance: alert, in no apparent distress Head exam: Present: atraumatic, normocephalic Eye exam: Present: normal appearance. Absent: scleral icterus, conjunctival injection ENT exam: Present: normal oropharynx Neck exam: Present: normal inspection, full ROM Respiratory exam: Present: normal lung sounds bilaterally. Absent: respiratory distress, wheezes, rales, rhonchi, stridor Cardiovascular Exam: Present: regular rate, normal rhythm, normal heart sounds. Absent: systolic murmur, diastolic murmur, rubs, gallop GI/Abdominal exam: Present: soft. Absent: distended, tenderness, guarding, rebound, rigid, mass Extremities exam: Present: normal inspection, normal capillary refill. Absent: pedal edema, calf tenderness Back exam: Present: normal inspection Neurological exam: Present: alert Skin exam: Present: warm, dry, intact, other (The patient has an approximately 1 cm ulceration of the skin to the left buttock. There is no definite deeper infection. No warmth. Minimal erythema. Currently no drainage.) Course Vital Signs 09/04/18 00:55 Temperature 100.9 F H Pulse Rate 124 H Respiratory 22 Rate Blood Pressure 113/96 O2 Sat by Pulse 92 L Oximetry - Reevaluation(s) Reevaluation #1: 09/04/18 03:59 I was called to the room as the patient was refusing go for computed tomography scan until she had been administered IV narcotics. She did request morphine by name. I did explain that is my practice to only administer IV narcotics for serious trauma, for example broken bone, or serious medical condition such as VA or proven deep tissue infection. Explain that was why we're attempting to obtain the computed tomography scan, the patient stated that she would not go for computed tomography scan without having the medication administered first. They did request to speak with the charge nurse and I summoned the charge nurse for them. Reevaluation #2: 09/04/18 04:20 The patient's also requested that the patient be given IV opioid analgesic. I stated that at this point I am not comfortable ordering that without having serious medical condition identified. The patient's demanded to know why and I stated that there are medical reasons, including multiple past interactions with the patient and I was not comfortable discussing her past with him, leaving that for the patient to discuss with him. Medical Decision Making - Medical Decision Making Patient's 48-year-old woman with concern of suspected decubitus ulcer. The patient does have a small skin ulcer and I had wanted to ensure that there is no underlying deep infection. Labs and CT ordered. The patient is refusing CT without prior opioid pain medicine by injection. I did offer oral opioid, but patient is refusing this. She is refusing to go for the additional studies and then demanded to sign out AGAINST MEDICAL ADVICE. - Lab Data Result diagrams: 09/04/18 01:15 09/04/18 01:45 Lab Results 09/04/18 09/04/18 09/04/18 Range/Units 01:15 01:45 01:45 WBC 6.1 (3.8-10.6) k/uL RBC 2.94 L (3.80-5.40) m/uL Hgb 9.1 L (11.4-16.0) gm/dL Hct 29.2 L (34.0-46.0) % MCV 99.5 (80.0-100.0) fL MCH 31.1 (25.0-35.0) pg MCHC 31.3 (31.0-37.0) g/dL RDW 19.9 H (11.5-15.5) % Plt Count 205 (150-450) k/uL Neutrophils % 46 % Lymphocytes % 38 % Monocytes % 11 % Eosinophils % 1 % Basophils % 1 % Neutrophils # 2.8 (1.3-7.7) k/uL Lymphocytes # 2.3 (1.0-4.8) k/uL Monocytes # 0.7 (0-1.0) k/uL Eosinophils # 0.1 (0-0.7) k/uL Basophils # 0.0 (0-0.2) k/uL Hypochromasia Moderate Poikilocytosis Moderate Anisocytosis Slight Macrocytosis Moderate Sodium 138 (137-145) mmol/L Potassium 3.3 L (3.5-5.1) mmol/L Chloride 104 (98-107) mmol/L Carbon Dioxide 25 (22-30) mmol/L Anion Gap 9 mmol/L BUN 10 (7-17) mg/dL Creatinine 0.49 L (0.52-1.04) mg/dL Est GFR (CKD-EPI)AfAm >90 (>60 ml/min/1.73 sqM) Est GFR (CKD-EPI)NonAf >90 (>60 ml/min/1.73 sqM) Glucose 94 (74-99) mg/dL Plasma Lactic Acid Chuck 3.8 H* (0.7-2.0) mmol/L Calcium 9.1 (8.4-10.2) mg/dL C-Reactive Protein 75.7 H (<10.0) mg/L Disposition Clinical Impression: Skin ulcer Disposition: Left Against Medical Advice Condition: Fair Instructions (If sedation given, give patient instructions): How to Prevent Pr essure Injuries (ED), Skin Care After Spinal Cord Injury (ED) Is patient prescribed a controlled substance at d/c from ED?: No Referrals: Liz Koch MD [Primary Care Provider] - 1-2 days
[2018-09-04 07:13] VITALS: RESP 18
== END 2018-09-04 06:46 | disposition left against medical advice (07) ==
LOC: EC 00:53
DX: L98.419 Non-pressure chronic ulcer of buttock with unspecified severity (principal); I11.0 Hypertensive heart disease with heart failure; I50.9 Heart failure, unspecified; I25.10 Atherosclerotic heart disease of native coronary artery without angina pectoris; I25.2 Old myocardial infarction; J96.90 Respiratory failure, unspecified, unspecified whether with hypoxia or hypercapnia; F41.9 Anxiety disorder, unspecified; Z86.14 Personal history of Methicillin resistant Staphylococcus aureus infection; Z86.718 Personal history of other venous thrombosis and embolism; Z86.711 Personal history of pulmonary embolism; Z87.891 Personal history of nicotine dependence; Z79.01 Long term (current) use of anticoagulants; Z79.52 Long term (current) use of systemic steroids; Z79.4 Long term (current) use of insulin; Z79.899 Other long term (current) drug therapy; Z91.041 Radiographic dye allergy status; Z88.5 Allergy status to narcotic agent; Z88.6 Allergy status to analgesic agent; Z88.1 Allergy status to other antibiotic agents; Z88.8 Allergy status to other drugs, medicaments and biological substances; Z91.048 Other nonmedicinal substance allergy status; Z95.818 Presence of other cardiac implants and grafts; Z53.29 Procedure and treatment not carried out because of patient's decision for other reasons
CPT/HCPCS: 36415; 80048; 83605; 85025; 86140; 87070; 87205; 99283

== ENCOUNTER 2018-09-08 12:26 | Observation (INO) | payer BC, OTHER ==
[2018-09-08] MEDS ORDERED: SODIUM CHLORIDE 0.9% 1,000 ML IV STA (12:46)
[2018-09-08 13:15] LABS: Anisocytosis Slight; Basophils % (A) 0 %; Eosinophils % (A) 0 %; HCT 31.4 % (34.0-46.0); Hypochromasia Moderate; Lymphocytes % (A) 27 %; MCH 31.3 pg (25.0-35.0); MCHC 31.7 g/dL (31.0-37.0); MCV 98.7 fL (80.0-100.0); Macrocytosis Slight; Monocytes # (A) 0.9 k/uL (0-1.0); Monocytes % (A) 13 %; Neutrophils # (A) 3.9 k/uL (1.3-7.7); Neutrophils % (A) 55 %; Platelet Count 372 k/uL (150-450); Poikilocytosis Moderate; RBC 3.18 m/uL (3.80-5.40); RDW 18.1 % (11.5-15.5); WBC 7.2 k/uL (3.8-10.6)
--- NOTE | 2018-09-08 13:17 | ED ---
General Adult HPI - General Stated complaint: Neuropathy Time Seen by Provider: 09/08/18 12:34 Source: patient, RN notes reviewed, old records reviewed Mode of arrival: EMS Limitations: no limitations - History of Present Illness Initial comments: 48 -year-old female with significant past medical history including asthma COPD, recent hospital admission with pneumonia requiring intubation and CVA presents with dizziness, lightheadedness, and left hand numbness. Her hand numbness has been present for the past 4 days. She states that her previous stroke affected the right side of her body. She states that she's had difficulty with ambulation and has required assistance for just about every activity of daily living. She denies fever or chills. She is on home oxygen, states that her breathing is at baseline. No increased cough. No reported fever or chills. No vomiting or diarrhea. No headache. - Related Data Home Medications Medication Instructions Recorded Confirmed lamoTRIgine [LaMICtal] 200 mg PO DAILY 03/22/16 09/08/18 Bumetanide 2 mg PO DAILY 10/18/16 09/08/18 Nystatin 100,000 Unit/gm Powd 1 applic TOPICAL BID 11/04/17 09/08/18 [Mycostatin Powder] Insulin Glargine,Hum.rec.anlog 22 unit SQ W/BRKFST 08/25/18 09/08/18 [Lantus Solostar] Lactulose 20 gm PO TID PRN 08/25/18 09/08/18 Multivitamins, Thera [Multivitamin 1 tab PO DAILY 08/25/18 09/08/18 (formulary)] Potassium Chloride ER [K-Dur 20] 40 meq PO DAILY 08/25/18 09/08/18 FLUoxetine HCL [PROzac] 20 mg PO DAILY 08/26/18 09/08/18 Apixaban [Eliquis] 5 mg PO BID 09/08/18 09/08/18 Butalb/Acetaminophen/Caffeine 1 cap PO Q4H PRN 09/08/18 09/08/18 [Fioricet 50-300-40 mg Capsule] Ergocalciferol [Vitamin D2 50,000 unit PO Q7DAYS 09/08/18 09/08/18 (DRISDOL)] Mirtazapine [Remeron] 45 mg PO HS 09/08/18 09/08/18 Pregabalin [Lyrica] 150 mg PO BID 09/08/18 09/08/18 Previous Rx's Medication Instructions Recorded Metoprolol Tartrate [Lopressor] 50 mg PO BID #60 tab 08/20/15 Allergies Allergy/AdvReac Type Severity Reaction Status Date / Time cefepime [From Maxipime] Allergy Severe Rash/Hives Verified 09/08/18 13:28 Iodinated Contrast- Oral and Allergy Severe Rash/Hives Verified 09/08/18 13:28 IV Dye ketorolac tromethamine Allergy Severe Anaphylaxis Verified 09/08/18 13:28 [From Toradol] adhesive Allergy Rash/Hives Verified 09/08/18 13:28 rivaroxaban [From Xarelto] Allergy Rash/Hives Verified 09/08/18 13:28 sumatriptan [From Imitrex] Allergy Anaphylaxis Verified 09/08/18 13:28 sumatriptan succinate Allergy Anaphylaxis Verified 09/08/18 13:28 [From Imitrex] tramadol Allergy Anaphylaxis Verified 09/08/18 13:28 iodine AdvReac Intermediate Itching/severe Verified 09/08/18 13:28 hives vancomycin AdvReac Itching Verified 09/08/18 13:28 Rich wipes Allergy Severe Rash/Hives Uncoded 07/21/18 22:38 Review of Systems ROS Statement: Those systems with pertinent positive or pertinent negative responses have been documented in the HPI. ROS Other: All systems not noted in ROS Statement are negative. Past Medical History Past Medical History: Blood Disorder, Coronary Artery Disease (CAD), Heart Failure, COPD, Deep Vein Thrombosis (DVT), Fibromyalgia, Hyperlipidemia, Hypertension, Myocardial Infarction (RI), Pneumonia, Pulmonary Embolus (PE), Thyroid Disorder Additional Past Medical History / Comment(s): Sarcoidosis,polycythemia, bilateral PE's, bilateral DVTs, degenerative disk disorder, history of a RI and ventilator dependent respiratory failure with MRSA pneumonia, Viral meningitis in October 2014. Pulmonary fibrosis, home 0xygen at 3l n/c, recent pneumonia, stroke August 15 affecting legs and right arm Last Myocardial Infarction Date:: February 15, 2013 History of Any Multi-Drug Resistant Organisms: MRSA Date of last positivie culture/infection: 11/09/17 MDRO Source:: PLEURAL FLUID Past Surgical History: Section, Cholecystectomy, Heart Catheterization, Hernia Repair, Orthopedic Surgery Additional Past Surgical History / Comment(s): Lt ankle surgery, several bronchosopies Past Anesthesia/Blood Transfusion Reactions: Previous Problems w/ Anesthesia Additional Past Anesthesia/Blood Transfusion Reaction / Comment(s): previously charted -pt stated that last April she coded possbily due to anesthetic-during bronchoscopy procedure with Dr Hicks Past Psychological History: Anxiety Smoking Status: Current every day smoker Past Alcohol Use History: None Reported Past Drug Use History: None Reported - Past Family History Father Family Medical History: Blood Disorder, Deep Vein Thrombosis (DVT), Myocardial Infarction (RI), Pulmonary Embolus Additional Family Medical History / Comment(s): polycythemia Mother Family Medical History: Deep Vein Thrombosis (DVT) Additional Family Medical History / Comment(s): DDD Sister(s) Family Medical History: No Reported History Brother(s) Family Medical History: No Reported History Son(s) Family Medical History: No Reported History Daughter(s) Family Medical History: No Reported History General Exam Limitations: no limitations General appearance: alert, in no apparent distress Head exam: Present: atraumatic, normocephalic Eye exam: Present: normal appearance, PERRL ENT exam: Present: mucous membranes dry Neck exam: Present: normal inspection. Absent: tenderness, meningismus Respiratory exam: Present: normal lung sounds bilaterally. Absent: respiratory distress, wheezes Cardiovascular Exam: Present: regular rate, normal rhythm GI/Abdominal exam: Present: soft. Absent: distended, tenderness, guarding, rebound Extremities exam: Present: normal inspection, normal capillary refill. Absent: pedal edema Neurological exam: Present: alert, oriented X3, CN II-XII intact, motor sensory deficit (Decaler strength weakness on the right, numbness to the fourth and fifth digits on the left.) Psychiatric exam: Present: normal affect, normal mood Skin exam: Present: warm, dry, intact. Absent: cyanosis, diaphoretic Course Vital Signs 09/08/18 09/08/18 12:41 14:30 Temperature 98.1 F Pulse Rate 91 92 Respiratory 16 21 Rate Blood Pressure 81/69 108/60 O2 Sat by Pulse 97 94 L Oximetry EKG Findings - EKG Comments: EKG Findings:: EKG: Normal sinus rhythm, rate of 88, ME interval 150, QRS duration 64, QTC 394, no ST segment elevation Medical Decision Making - Medical Decision Making 48-year-old with significant past medical history presenting with inability to ambulate, generalized weakness. She does have some symptoms of numbness or paresthesia which is been present for greater than 4 days. Recent history of CVA. Head CT is obtained, negative for intracranial hemorrhage or mass effect. CT of cervical spine which is consistent with degenerative change, no acute process. She has normal CBC, normal electrolytes. She will be admitted for further evaluation treatment. She may require placement. Case is discussed with Dr. Zepeda who will admit. - Lab Data Result diagrams: 09/08/18 13:00 09/08/18 13:00 Lab Results 09/08/18 09/08/18 09/08/18 Range/Units 13:00 13:00 13:00 WBC 7.2 (3.8-10.6) k/uL RBC 3.18 L (3.80-5.40) m/uL Hgb 10.0 L (11.4-16.0) gm/dL Hct 31.4 L (34.0-46.0) % MCV 98.7 (80.0-100.0) fL MCH 31.3 (25.0-35.0) pg MCHC 31.7 (31.0-37.0) g/dL RDW 18.1 H (11.5-15.5) % Plt Count 372 (150-450) k/uL Neutrophils % 55 % Lymphocytes % 27 % Monocytes % 13 % Eosinophils % 0 % Basophils % 0 % Neutrophils # 3.9 (1.3-7.7) k/uL Lymphocytes # 2.0 (1.0-4.8) k/uL Monocytes # 0.9 (0-1.0) k/uL Eosinophils # 0.0 (0-0.7) k/uL Basophils # 0.0 (0-0.2) k/uL Hypochromasia Moderate Poikilocytosis Moderate Anisocytosis Slight Macrocytosis Slight Sodium 142 (137-145) mmol/L Potassium 4.2 (3.5-5.1) mmol/L Chloride 112 H (98-107) mmol/L Carbon Dioxide 25 (22-30) mmol/L Anion Gap 5 mmol/L BUN 4 L (7-17) mg/dL Creatinine 0.39 L (0.52-1.04) mg/dL Est GFR (CKD-EPI)AfAm >90 (>60 ml/min/1.73 sqM) Est GFR (CKD-EPI)NonAf >90 (>60 ml/min/1.73 sqM) Glucose 95 (74-99) mg/dL Plasma Lactic Acid Chuck 1.7 (0.7-2.0) mmol/L Calcium 8.3 L (8.4-10.2) mg/dL Total Bilirubin 0.2 (0.2-1.3) mg/dL AST 19 (14-36) U/L ALT 34 (9-52) U/L Alkaline Phosphatase 70 (38-126) U/L Total Protein 5.2 L (6.3-8.2) g/dL Albumin 2.7 L (3.5-5.0) g/dL Urine Color Urine Appearance (Clear) Urine pH (5.0-8.0) Ur Specific [place] (1.001-1.035) Urine Protein (Negative) Urine Glucose (UA) (Negative) Urine Ketones (Negative) Urine Blood (Negative) Urine Nitrite (Negative) Urine Bilirubin (Negative) Urine Urobilinogen (<2.0) mg/dL Ur Leukocyte Esterase (Negative) 09/08/18 Range/Units 14:20 WBC (3.8-10.6) k/uL RBC (3.80-5.40) m/uL Hgb (11.4-16.0) gm/dL Hct (34.0-46.0) % MCV (80.0-100.0) fL MCH (25.0-35.0) pg MCHC (31.0-37.0) g/dL RDW (11.5-15.5) % Plt Count (150-450) k/uL Neutrophils % % Lymphocytes % % Monocytes % % Eosinophils % % Basophils % % Neutrophils # (1.3-7.7) k/uL Lymphocytes # (1.0-4.8) k/uL Monocytes # (0-1.0) k/uL Eosinophils # (0-0.7) k/uL Basophils # (0-0.2) k/uL Hypochromasia Poikilocytosis Anisocytosis Macrocytosis Sodium (137-145) mmol/L Potassium (3.5-5.1) mmol/L Chloride (98-107) mmol/L Carbon Dioxide (22-30) mmol/L Anion Gap mmol/L BUN (7-17) mg/dL Creatinine (0.52-1.04) mg/dL Est GFR (CKD-EPI)AfAm (>60 ml/min/1.73 sqM) Est GFR (CKD-EPI)NonAf (>60 ml/min/1.73 sqM) Glucose (74-99) mg/dL Plasma Lactic Acid Chuck (0.7-2.0) mmol/L Calcium (8.4-10.2) mg/dL Total Bilirubin (0.2-1.3) mg/dL AST (14-36) U/L ALT (9-52) U/L Alkaline Phosphatase (38-126) U/L Total Protein (6.3-8.2) g/dL Albumin (3.5-5.0) g/dL Urine Color Light Yellow Urine Appearance Clear (Clear) Urine pH 7.0 (5.0-8.0) Ur Specific [place] 1.007 (1.001-1.035) Urine Protein Negative (Negative) Urine Glucose (UA) Negative (Negative) Urine Ketones Negative (Negative) Urine Blood Negative (Negative) Urine Nitrite Negative (Negative) Urine Bilirubin Negative (Negative) Urine Urobilinogen <2.0 (<2.0) mg/dL Ur Leukocyte Esterase Negative (Negative) Disposition Clinical Impression: Dehydration, Generalized weakness Disposition: ADMITTED IP TO [facility] Condition: Stable Is patient prescribed a controlled substance at d/c from ED?: No Referrals: Liz Koch MD [Primary Care Provider] - 1-2 days Decision to Admit Reason: Admit from EC Decision Date: 09/08/18 Decision Time: 15:26
[2018-09-08 13:27] LABS: ALT 34 U/L (9-52); AST 19 U/L (14-36); African American GFR (CKD) >90 (>60 ml/min/1.73 sqM); Albumin 2.7 g/dL (3.5-5.0); Alkaline Phosphatase 70 U/L (38-126); Anion Gap 5 mmol/L; Blood Urea Nitrogen 4 mg/dL (7-17); Calcium 8.3 mg/dL (8.4-10.2); Carbon Dioxide 25 mmol/L (22-30); Chloride 112 mmol/L (98-107); Glucose 95 mg/dL (74-99); Potassium 4.2 mmol/L (3.5-5.1); Sodium 142 mmol/L (137-145); Total Bilirubin 0.2 mg/dL (0.2-1.3); Total Protein 5.2 g/dL (6.3-8.2)
--- NOTE | 2018-09-08 13:31 | XR ---
EXAMINATION TYPE: XR chest 2V DATE OF EXAM: 09/08/2018 HISTORY: PNA?. REFERENCE: Previous study dated 07/26/2018. FINDINGS: Heart size upper limits of normal. There are mild increased markings. Pulmonary vasculature is normal. There is no evidence of edema. There is no focal pneumonia. IMPRESSION: BORDERLINE CARDIOMEGALY.
--- NOTE | 2018-09-08 13:46 | CT ---
EXAMINATION TYPE: CT brain kaitlynn torres con DATE OF EXAM: 09/08/2018 COMPARISON: Previous CT scan of the brain dated 07/21/2018 HISTORY: Neuropathy CT DLP: 1491.5 mGycm Automated exposure control for dose reduction was used. TECHNIQUE: CT scan of the head and cervical spine are performed without contrast. FINDINGS: BRAIN: Central structures are midline. There is no evidence of hydrocephalus. No acute focal lesion, mass effect or midline shift is seen. I do not see evidence of intracranial blood. There is minimal mucoperiosteal disease involving the ethmoid air cells. The remainder the paranasal sinuses and mastoids are clear. The bony calvarium is intact. IMPRESSION: 1. NO ACUTE INTRACRANIAL ABNORMALITY. 2. MINIMAL ETHMOIDAL SINUS MUCOSAL DISEASE. CERVICAL SPINE: Visualized portions of the lungs are clear. Prevertebral soft tissues are normal. Vertebral body height and alignment are maintained. Atlantoaxial relationships are normal. There is m inimal degenerative disc disease most marked at C4-5, C5-6 and C6-7. There is minimal hypertrophic sp ondylosis present at these levels. The uncovertebral joints are unremarkable. The facets are unremark able. There is no evidence of discal protrusion. No fracture is seen. IMPRESSION: 1. NO ACUTE OSSEOUS LESION. 2. MINIMAL DEGENERATIVE CHANGE.
[2018-09-08 14:53] LABS: Appearance,Urine Clear (Clear); Bilirubin,Urine Negative (Negative); Blood,Urine Negative (Negative); Color,Urine Light Yellow; Glucose,Urine (UA) Negative (Negative); Ketones,Urine Negative (Negative); Leukocyte Esterase,Urine Negative (Negative); Nitrite,Urine Negative (Negative); Protein,Urine Negative (Negative); Specific Gravity,Urine 1.007 (1.001-1.035); Urobilinogen,Urine <2.0 mg/dL (<2.0)
[2018-09-08] MEDS ORDERED: NALOXONE 0.4 MG/ML 1 ML VIAL IV PRN (15:21)
[2018-09-08] MEDS ORDERED: ACETAMINOPHEN TAB 325 MG TAB PO PRN (15:21)
[2018-09-08] MEDS ORDERED: SODIUM CHLORIDE 0.9% 1,000 ML IV SCH (15:30)
[2018-09-08] MEDS ORDERED: BUTALB/APAP/CAFF 50-325-40MG TAB PO PRN (15:50)
[2018-09-08] MEDS ORDERED: LACTULOSE 20 GM/30 ML CUP PO PRN (15:50)
[2018-09-08] MEDS ORDERED: ALPRAZolam 0.25 MG TAB PO PRN (15:56)
[2018-09-08] MEDS ORDERED: TEMAZEPAM 15 MG CAP PO PRN (15:56)
[2018-09-08] MEDS ORDERED: NICOTINE 14MG/24HR PATCH TRANSDERM SCH (16:15)
[2018-09-08] MEDS ORDERED: HYDROmorphone 1 MG/ML 1 ML SYRINGE IVP STA (16:33)
[2018-09-08] MEDS ORDERED: HYDROmorphone 0.5 MG/0.5 ML SYRINGE IVP STA (16:34)
[2018-09-08] MEDS ORDERED: IPRATROPIUM-ALBUTEROL 3 ML NEB INHALATION PRN (18:17)
[2018-09-08 19:13] VITALS: RESP 16
[2018-09-08] MEDS ORDERED: IPRATROPIUM-ALBUTEROL 3 ML NEB INHALATION SCH ×2 (20:00)
--- NOTE | 2018-09-08 20:30 | HP ---
HISTORY AND PHYSICAL DATE OF SERVICE: 09/08/2018 CHIEF COMPLAINT: Weakness and numbness. HISTORY OF PRESENT ILLNESS: This 48-year-old woman with a past history of multiple medical problems including history of CAD, CHF, COPD, DVT, fibromyalgia, history of myocardial infarction, history of pneumonia, pulmonary embolism being followed by Dr. Miesha Ramirez in the outpatient setting was recently admitted to [facility], referred from here because of pneumonia, sepsis and multiple other medical problems. Patient mechanically intubated for a long time. Patient apparently had a stroke also. No reports available at this time. The patient also had decubitus ulcer. Currently the patient complains of numbness and weakness and unable to walk and wobbly and the patient came to [facility] and was admitted for further evaluation and treatment. There is no history of fever, rigors or chills. No history of headache, loss of consciousness or seizures. No chest pain, palpitations at this time. PAST MEDICAL HISTORY: History of CAD, COPD, CHF, history of recent prolonged intubation, DVT, hypertension, myocardial infarction, pulmonary embolism. MEDICATIONS: Prior to admission include home medications are: 1. Lamictal 200 mg p.o. daily. 2. Lyrica 150 mg p.o. b.i.d. 3. K-Dur 40 mEq p.o. daily. 4. Mycostatin 1 application b.i.d. 5. Multivitamins. 6. Remeron 45 mg q.h.s. 7. Lopressor 50 mg p.o. b.i.d. 8. Lactulose 10 g p.o. t.i.d. p.r.n. 9. Lantus 22 units subcu breakfast. 10.Prozac 20 mg daily. 11.Drisdol 50,000 every 7 days. 12.Butalbital 1 capsule p.o. q.4 p.r.n. 13.Bumex 2 mg p.o. daily. 14.Lexapro 5 mg p.o. b.i.d. ALLERGIES: CEFEPIME, IODINATED CONTRAST, KETOROLAC, XARELTO, IMITREX, ULTRAM, IODINE, VANCOMYCIN, NICOL WIPES. FAMILY HISTORY: History of DVT, history of myocardial infarction, pulmonary embolism, in the family. SOCIAL HISTORY: History of smoking. No history of alcohol intake. REVIEW OF SYSTEMS: ENT: Diminished vision. Diminished hearing. CARDIOVASCULAR as mentioned earlier. RESPIRATORY: As mentioned earlier. GI no nausea or vomiting. no dysuria. NERVOUS SYSTEM: As mentioned earlier. ALLERGY/IMMUNOLOGY: No asthma or hayfever. MUSCULOSKELETAL: As mentioned earlier. HEMATOLOGY/ONCOLOGY: No history of anemia. ENDOCRINE: Diabetes. CONSTITUTIONAL: As mentioned earlier. DERMATOLOGY: Negative. RHEUMATOLOGY: Negative. PSYCHIATRY: As mentioned earlier. PHYSICAL EXAMINATION: Alert and oriented times three. Pulse is 101, blood pressure 90/72, respirations 18. Temperature 98.1, pulse ox 97% on 4 L. HEENT: Conjunctivae normal. Oral mucosa moist. NECK is no jugular venous distention. No carotid bruit. No lymph node enlargement. CARDIOVASCULAR: S1, S2 muffled. No S3, no S4. RESPIRATORY: Breath sounds diminished in the bases. Bilateral scattered rhonchi and crackles. ABDOMEN: Soft, nontender. No mass palpable. LEGS: No edema. No swelling. NERVOUS SYSTEM: Higher functions as mentioned earlier. Moves all four limbs. Mild diffuse weakness present. No sensory abnormalities. diminished. SKIN: Decub ulcer present. JOINTS: No active deformity arthropathy. Lymphatics: No lymph nodes palpable in the neck, axillae or groin. LABS: At this time shows WBC 7.2, hemoglobin is 10, and sodium 140, potassium 4.2, albumin 2.7. ASSESSMENT: 1. 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 2. History of recent prolonged mechanical ventilation. 3. History of coronary artery disease. 4. History of congestive heart failure, ejection fraction unknown. 5. Chronic obstructive pulmonary disease. 6. History of deep vein thrombosis. 7. Fibromyalgia. 8. Hypertension. 9. Hyperlipidemia. 10.History of myocardial infarction. 11.History of pneumonia. 12.Pulmonary embolism. 13.History of sarcoidosis. 14.History of polycythemia. 15.History of bilateral pulmonary embolisms and deep vein thromboses. 16.History of degenerative joint disease. 17.History of myocardial infarction. 18.History of recent sepsis, vent dependent respiratory failure. 19.History of recent strokes apparent. 20.History of pulmonary fibrosis. 21.MRSA. 22.History of cholecystectomy. 23.History of anxiety. 24.Continued ongoing nicotine dependence. RECOMMENDATIONS AND DISCUSSION: In this 48-year-old woman who presented with multiple complex medical issues, we will monitor the patient closely, continue the current medications, management and symptomatic treatment. We will resume the home medications. Monitor blood sugars closely. PT/OT evaluation, possible ECF rehab. The patient has possibly features of critical care poly myoneuropathy. Repeat CT scan was done this admission which showed minimal ethmoid sinus mucosal disease and no acute changes. Once again the prognosis extremely guarded. See orders and further recommendations to follow. A copy of this dictation being forwarded to Dr. Miesha Ramirez who is following the patient in the outpatient setting. MMODL / IJN: [id number] / MTDD
[2018-09-08] MEDS ORDERED: PREGABALIN 75 MG CAP PO SCH (21:00)
[2018-09-08] MEDS ORDERED: NYSTATIN 100,000 UNIT/GM POWD 15 GM TOPICAL SCH (21:00)
[2018-09-08] MEDS ORDERED: MIRTAZAPINE 45 MG TABLET PO SCH (21:00)
[2018-09-08] MEDS ORDERED: METOPROLOL TARTRATE 50 MG TAB PO SCH (21:00)
[2018-09-08] MEDS ORDERED: APIXABAN 5 MG TAB PO SCH (21:00)
[2018-09-09 00:18] VITALS: BP 120/57; PULSE 109; TEMP 98.7; BMI 34.2
[2018-09-09] MEDS ORDERED: INSULIN DETEMIR (LEVEMIR) 100 UNIT/ML SYR SQ SCH (07:30)
[2018-09-09] MEDS ORDERED: PANTOPRAZOLE 40 MG TABLET PO SCH (07:30)
[2018-09-09] MEDS ORDERED: BUMETANIDE 1 MG TAB PO SCH (09:00)
[2018-09-09] MEDS ORDERED: POTASSIUM CHLORIDE ER 20 MEQ TAB.ER PO SCH (09:00)
[2018-09-09] MEDS ORDERED: MULTIVITAMINS, THERA 1 EACH TAB PO SCH (09:00)
[2018-09-09] MEDS ORDERED: lamoTRIgine 100 MG TAB PO SCH (09:00)
[2018-09-09] MEDS ORDERED: FLUoxetine HCL 20 MG CAP PO SCH (09:00)
--- NOTE | 2018-09-10 15:04 | P.DS ---
Providers Date of admission: 09/08/18 15:23 Expected date of discharge: 09/09/18 Attending physician: Ulysses Zepeda Consults: 09/08/18 15:55 Consult Physician Routine Consulting Provider: Kobi Lott Consult Reason/Comments: kylie Do you want consulting provider notified?: Yes Primary care physician: [facility] Course: Patient left AGAINST MEDICAL ADVICE Patient Condition at Discharge: Stable Plan - Discharge Summary Discharge Rx Participant: No New Discharge Prescriptions: No Action Metoprolol Tartrate [Lopressor] 50 mg PO BID #60 tab lamoTRIgine [LaMICtal] 200 mg PO DAILY Bumetanide 2 mg PO DAILY Nystatin 100,000 Unit/gm Powd [Mycostatin Powder] 1 applic TOPICAL BID Potassium Chloride ER [K-Dur 20] 40 meq PO DAILY Multivitamins, Thera [Multivitamin (formulary)] 1 tab PO DAILY Insulin Glargine,Hum.rec.anlog [Lantus Solostar] 22 unit SQ W/BRKFST Lactulose 20 gm PO TID PRN PRN Reason: Constipation FLUoxetine HCL [PROzac] 20 mg PO DAILY Pregabalin [Lyrica] 150 mg PO BID Mirtazapine [Remeron] 45 mg PO HS Ergocalciferol [Vitamin D2 (DRISDOL)] 50,000 unit PO Q7DAYS Apixaban [Eliquis] 5 mg PO BID Butalb/Acetaminophen/Caffeine [Fioricet 50-300-40 mg Capsule] 1 cap PO Q4H PRN PRN Reason: Headache Discharge Medication List Metoprolol Tartrate [Lopressor] 50 mg PO BID #60 tab 08/20/15 [Rx] lamoTRIgine [LaMICtal] 200 mg PO DAILY 03/22/16 [History] Bumetanide 2 mg PO DAILY 10/18/16 [History] Nystatin 100,000 Unit/gm Powd [Mycostatin Powder] 1 applic TOPICAL BID 11/04/17 [History] Insulin Glargine,Hum.rec.anlog [Lantus Solostar] 22 unit SQ W/BRKFST 08/25/18 [History] Lactulose 20 gm PO TID PRN 08/25/18 [History] Multivitamins, Thera [Multivitamin (formulary)] 1 tab PO DAILY 08/25/18 [History] Potassium Chloride ER [K-Dur 20] 40 meq PO DAILY 08/25/18 [History] FLUoxetine HCL [PROzac] 20 mg PO DAILY 08/26/18 [History] Apixaban [Eliquis] 5 mg PO BID 09/08/18 [History] Butalb/Acetaminophen/Caffeine [Fioricet 50-300-40 mg Capsule] 1 cap PO Q4H PRN 09/08/18 [History] Ergocalciferol [Vitamin D2 (DRISDOL)] 50,000 unit PO Q7DAYS 09/08/18 [History] Mirtazapine [Remeron] 45 mg PO HS 09/08/18 [History] Pregabalin [Lyrica] 150 mg PO BID 09/08/18 [History] Follow up Appointment(s)/Referral(s): Liz Koch MD [Primary Care Provider] - 1-2 days Discharge Disposition: Left Against Medical Advice
[2018-09-15] MEDS ORDERED: ERGOCALCIFEROL 50,000 UNIT CAP PO SCH (09:00)
== END 2018-09-09 02:34 | disposition left against medical advice (07) ==
LOC: EC 12:26 → 1SOBS 15:23
PROVIDERS: ADMIT Internal Medicine; ATTEND Internal Medicine
DX: R53.1 Weakness (principal); R42 Dizziness and giddiness; R26.2 Difficulty in walking, not elsewhere classified; R20.2 Paresthesia of skin; Z53.21 Procedure and treatment not carried out due to patient leaving prior to being seen by health care provider; I25.10 Atherosclerotic heart disease of native coronary artery without angina pectoris; I11.0 Hypertensive heart disease with heart failure; I50.9 Heart failure, unspecified; J44.9 Chronic obstructive pulmonary disease, unspecified; M79.7 Fibromyalgia; I25.2 Old myocardial infarction; E78.5 Hyperlipidemia, unspecified; M19.90 Unspecified osteoarthritis, unspecified site; F41.9 Anxiety disorder, unspecified; F17.200 Nicotine dependence, unspecified, uncomplicated; D86.9 Sarcoidosis, unspecified; D75.1 Secondary polycythemia; G62.9 Polyneuropathy, unspecified; R20.0 Anesthesia of skin; E07.9 Disorder of thyroid, unspecified; E86.0 Dehydration; M50.323 Other cervical disc degeneration at C6-C7 level; Z87.09 Personal history of other diseases of the respiratory system; Z86.718 Personal history of other venous thrombosis and embolism; Z87.01 Personal history of pneumonia (recurrent); Z86.711 Personal history of pulmonary embolism; Z86.14 Personal history of Methicillin resistant Staphylococcus aureus infection; Z86.19 Personal history of other infectious and parasitic diseases; Z79.899 Other long term (current) drug therapy; Z79.4 Long term (current) use of insulin; Z79.01 Long term (current) use of anticoagulants; Z88.1 Allergy status to other antibiotic agents; Z91.041 Radiographic dye allergy status; Z88.5 Allergy status to narcotic agent; Z88.8 Allergy status to other drugs, medicaments and biological substances; Z91.048 Other nonmedicinal substance allergy status; Z90.49 Acquired absence of other specified parts of digestive tract; Z99.81 Dependence on supplemental oxygen
CPT/HCPCS: 96374; 99285; 36415; 94640; 93005; 80053; 83605; 85025; 81003; 87040; 71046; 72125; 70450; G0378 ×2; S4990; J1170

== ENCOUNTER 2018-09-29 | Emergency (ER) | payer BC, OTHER ==
[2018-09-29] MEDS ORDERED: MORPHINE SULFATE 4 MG/ML SYRINGE IM STA (01:16)
[2018-09-29] MEDS ORDERED: ONDANSETRON 4 MG/2 ML VIAL IVP STA (01:49)
[2018-09-29 02:06] LABS: Anisocytosis Slight; Basophils # (A) 0.1 k/uL (0-0.2); Basophils % (A) 1 %; Eosinophils # (A) 0.2 k/uL (0-0.7); Eosinophils % (A) 2 %; HCT 31.7 % (34.0-46.0); HGB 10.3 gm/dL (11.4-16.0); Hypochromasia Marked; Lymphocytes # (A) 2.4 k/uL (1.0-4.8); Lymphocytes % (A) 22 %; MCH 30.4 pg (25.0-35.0); MCHC 32.6 g/dL (31.0-37.0); Mean Platelet Volume 7.6; Monocytes # (A) 0.8 k/uL (0-1.0); Monocytes % (A) 7 %; Neutrophils # (A) 7.1 k/uL (1.3-7.7); Neutrophils % (A) 66 %; Platelet Count 346 k/uL (150-450); Poikilocytosis Moderate; RBC 3.39 m/uL (3.80-5.40); WBC 10.8 k/uL (3.8-10.6)
[2018-09-29 02:10] LABS: ALT 48 U/L (9-52); AST 100 U/L (14-36); African American GFR (CKD) >90 (>60 ml/min/1.73 sqM); Alkaline Phosphatase 110 U/L (38-126); Anion Gap 9 mmol/L; Blood Urea Nitrogen 5 mg/dL (7-17); Calcium 8.4 mg/dL (8.4-10.2); Carbon Dioxide 19 mmol/L (22-30); Chloride 114 mmol/L (98-107); Glucose 88 mg/dL (74-99); Potassium 3.1 mmol/L (3.5-5.1); Sodium 142 mmol/L (137-145); Total Bilirubin 0.3 mg/dL (0.2-1.3); Total Protein 5.7 g/dL (6.3-8.2)
[2018-09-29 02:11] LABS: MCV 93.5 fL (80.0-100.0)
[2018-09-29 02:18] LABS: Partial Thromboplastin Time 35.6 sec (22.0-30.0); Prothrombin Time 19.6 sec (9.0-12.0)
[2018-09-29 02:38] LABS: D-Dimer 0.67 mg/L FEU (<0.60)
--- NOTE | 2018-09-29 02:46 | XR ---
EXAM: XR Right Tibia and Fibula, 2 Views CLINICAL HISTORY: : Pain TECHNIQUE: Frontal and lateral views of the right tibia and fibula. COMPARISON: No relevant prior studies available. FINDINGS: Bones/joints: Unremarkable. No acute fracture. No dislocation. Soft tissues: Unremarkable. No radiopaque foreign body. IMPRESSION: Normal right tibia and fibula x-rays.
[2018-09-29] MEDS ORDERED: POTASSIUM CHLORIDE ER 20 MEQ TAB.ER PO STA (04:07)
[2018-09-29] MEDS ORDERED: MORPHINE SULFATE 4 MG/ML SYRINGE IV STA (04:36)
--- NOTE | 2018-09-29 05:04 | ED ---
General Adult HPI - General Source: patient, RN notes reviewed, old records reviewed Mode of arrival: wheelchair Limitations: physical limitation <Phan Cavazos - Last Filed: 09/29/18 05:02> <Bhupendra Baker - Last Filed: 09/29/18 08:05> - General Chief complaint: Extremity Injury, Lower Stated complaint: Fall/Leg Pain Time Seen by Provider: 09/29/18 00:42 - History of Present Illness Initial comments: 48-year-old female patient with extensive past medical history presents to ED with right lower extremity pain. Patient reports that she has had pain in her right posterior calf or approximately 3 days. Patient states that the pain caused her to have a controlled dissent to the ground. Patient denies any trauma to head or neck. Patient denies any true fall. Patient denies any chest pain shortness of breath abdominal pain nausea vomiting or diarrhea. Systemic: Pt denies fatigue, fever/chills, rash. Pt denies weakness, night sweats, weight loss. Neuro: Pt denies headache, visual disturbances, syncope or pre-syncope. HEENT: Pt denies ocular discharge or irritation, otalgia, rhinorrhea, phary ngitis or notable lymphadenopathy. Cardiopulmonary: Pt denies chest pain, SOB, heart palpitations, dyspnea on exertion. Abdominal/GI: Pt denies abdominal pain, n/v/d. : Pt denies dysuria, burning w/ urination, frequency/urgency. Denies new onset urinary or bowel incontinence. MSK: Pt denies loss of strength or function in extremities. Neuro: Pt denies new onset weakness, paresthesias. (Phan Cavazos) - Related Data Home Medications Medication Instructions Recorded Confirmed lamoTRIgine [LaMICtal] 200 mg PO DAILY 03/22/16 09/08/18 Bumetanide 2 mg PO DAILY 10/18/16 09/08/18 Nystatin 100,000 Unit/gm Powd 1 applic TOPICAL BID 11/04/17 09/08/18 [Mycostatin Powder] Insulin Glargine,Hum.rec.anlog 22 unit SQ W/BRKFST 08/25/18 09/08/18 [Lantus Solostar] Lactulose 20 gm PO TID PRN 08/25/18 09/08/18 Multivitamins, Thera [Multivitamin 1 tab PO DAILY 08/25/18 09/08/18 (formulary)] Potassium Chloride ER [K-Dur 20] 40 meq PO DAILY 08/25/18 09/08/18 FLUoxetine HCL [PROzac] 20 mg PO DAILY 08/26/18 09/08/18 Apixaban [Eliquis] 5 mg PO BID 09/08/18 09/08/18 Butalb/Acetaminophen/Caffeine 1 cap PO Q4H PRN 09/08/18 09/08/18 [Fioricet 50-300-40 mg Capsule] Ergocalciferol [Vitamin D2 50,000 unit PO Q7DAYS 09/08/18 09/08/18 (DRISDOL)] Mirtazapine [Remeron] 45 mg PO HS 09/08/18 09/08/18 Pregabalin [Lyrica] 150 mg PO BID 09/08/18 09/08/18 Previous Rx's Medication Instructions Recorded Metoprolol Tartrate [Lopressor] 50 mg PO BID #60 tab 08/20/15 Allergies Allergy/AdvReac Type Severity Reaction Status Date / Time cefepime [From Maxipime] Allergy Severe Rash/Hives Verified 09/29/18 00:21 Iodinated Contrast- Oral and Allergy Severe Rash/Hives Verified 09/29/18 00:21 IV Dye ketorolac tromethamine Allergy Severe Anaphylaxis Verified 09/29/18 00:21 [From Toradol] adhesive Allergy Rash/Hives Verified 09/29/18 00:21 rivaroxaban [From Xarelto] Allergy Rash/Hives Verified 09/29/18 00:21 sumatriptan [From Imitrex] Allergy Anaphylaxis Verified 09/29/18 00:21 sumatriptan succinate Allergy Anaphylaxis Verified 09/29/18 00:21 [From Imitrex] tramadol Allergy Anaphylaxis Verified 09/29/18 00:21 iodine AdvReac Intermediate Itching/severe Verified 09/29/18 00:21 hives vancomycin AdvReac Itching Verified 09/29/18 00:21 Rich wipes Allergy Severe Rash/Hives Uncoded 09/29/18 00:21 Review of Systems ROS Other: All systems not noted in ROS Statement are negative. <Phan Cavazos - Last Filed: 09/29/18 05:02> ROS Other: All systems not noted in ROS Statement are negative. <Bhupendra Baker - Last Filed: 09/29/18 08:05> ROS Statement: Those systems with pertinent positive or pertinent negative responses have been documented in the HPI. Past Medical History Past Medical History: Blood Disorder, Coronary Artery Disease (CAD), Heart Failure, COPD, CVA/TIA, Deep Vein Thrombosis (DVT), Fibromyalgia, H yperlipidemia, Hypertension, Myocardial Infarction (AR), Pneumonia, Pulmonary Embolus (PE), Thyroid Disorder Additional Past Medical History / Comment(s): Sarcoidosis,polycythemia, bilateral PE's, bilateral DVTs, degenerative disk disorder, history of a AR and ventilator dependent respiratory failure with MRSA pneumonia, Viral meningitis in October 2014. Pulmonary fibrosis, home 0xygen at 3l n/c, recent pneumonia, stroke August 15 affecting legs and right arm, neuropathy, Last Myocardial Infarction Date:: February 15, 2013 History of Any Multi-Drug Resistant Organisms: MRSA Date of last positivie culture/infection: 11/09/172018 MDRO Source:: PLEURAL FLUID, sputum Past Surgical History: Section, Cholecystectomy, Heart Catheterization, Hernia Repair, Orthopedic Surgery Additional Past Surgical History / Comment(s): Lt ankle surgery, several bronchosopies, Past Anesthesia/Blood Transfusion Reactions: Previous Problems w/ Anesthesia Additional Past Anesthesia/Blood Transfusion Reaction / Comment(s): previously charted -pt stated that last April she coded possbily due to anesthetic-during bronchoscopy procedure with Dr Hicks Past Psychological History: Anxiety Smoking Status: Current every day smoker Past Alcohol Use History: None Reported Past Drug Use History: None Reported - Past Family History Father Family Medical History: Blood Disorder, Deep Vein Thrombosis (DVT), Myocardial Infarction (AR), Pulmonary Embolus Additional Family Medical History / Comment(s): polycythemia Mother Family Medical History: Deep Vein Thrombosis (DVT) Additional Family Medical History / Comment(s): DDD Sister(s) Family Medical History: No Reported History Brother(s) Family Medical History: No Reported History Son(s) Family Medical History: No Reported History Daughter(s) Family Medical History: No Reported History <Phan Cavazos - Last Filed: 09/29/18 05:02> General Exam Limitations: physical limitation <Phan Cavazos - Last Filed: 09/29/18 05:02> - General Exam Comments Initial Comments: Constitutional: NAD, AOX3, Pt has pleasant affect. HEENT: NC/AT, trachea midline, neck supple, no lymphadenopathy. Posterior pharynx non erythematous, without exudates. External ears appear normal, without discharge. Mucous membranes moist. Eyes PERRLA, EOM intact. There is no scleral icterus. No pallor noted. Cardiopulmonary: RRR, no murmurs, rubs or gallops, no JVD noted. Lungs CTAB in anterior and posterior diana. No peripheral edema. Abdominal exam: Abdomen soft and non-distended. Abdomen non-tender to palpation in all 4 quadrants. Bowel sounds active in LLQ. No hepatosplenomegaly. No ecchymosis Neuro: CN II-XII grossly intact. No nuchal rigidity. No raccon eyes, no zavala sign, no hemotympanum. No cervical spinal tenderness. MSK: Right posterior calc mildly tender to palpation. Left posterior calf nontender. Homans sign negative bilaterally. No edema or erythema. Posterior tibialis and radial pulse +2 bilaterally. Sensation intact in upper and lower extremities. Full active ROM in upper and lower extremities, 5/5 stregnth. (Phan Cavazos) Course Vital Signs 09/29/18 09/29/18 00:17 05:43 Temperature 99.4 F Pulse Rate 99 92 Respiratory 19 18 Rate Blood Pressure 100/71 109/65 O2 Sat by Pulse 97 97 Oximetry Medical Decision Making - Lab Data Result diagrams: 09/29/18 01:40 09/29/18 01:40 <Phan Cavazos - Last Filed: 09/29/18 05:02> - Lab Data Result diagrams: 09/29/18 01:40 09/29/18 01:40 <Bhupendra Baker - Last Filed: 09/29/18 08:05> - Medical Decision Making 48-year-old female patient with extensive past medical history presents to ED with right lower extremity pain. Patient reports that she has had pain in her right posterior calf or approximately 3 days. Patient states that the pain caused her to have a controlled dissent to the ground. Patient denies any trauma to head or neck. Patient denies any true fall. Patient denies any chest pain shortness of breath abdominal pain nausea vomiting or diarrhea. Pt VSS, afebrile. Physical exam displayed: Right posterior calc mildly tender to palpation. Left posterior calf nontender. Homans sign negative bilaterally. No edema or erythema. Plain film of tibia/fibular did not display acute pathology. Laboratory investigations revealed monocytosis of 10.8, hemoglobin and baseline. Correlation studies revealed a mildly increased PT/INR. Patient is on warfarin. D-dimer mildly elevated at 0.67. CMP revealed mild hypokalemia 3.1. Supplemented in ED, pt signed out to Dr. Young pending US. (Phan Cavazos) Patient reevaluated after sign out, she does have improved pain. Ultrasound negative for DVT, x-ray negative for acute fracture dislocation. No external skin changes, there is normal pulses in the leg, DP, and PT pulses. No signs of infection. Soft compartments. (Bhupendra Baker) - Lab Data Lab Results 09/29/18 09/29/18 09/29/18 Range/Units 01:40 01:40 01:40 WBC 10.8 H (3.8-10.6) k/uL RBC 3.39 L (3.80-5.40) m/uL Hgb 10.3 L (11.4-16.0) gm/dL Hct 31.7 L (34.0-46.0) % MCV 93.5 D (80.0-100.0) fL MCH 30.4 (25.0-35.0) pg MCHC 32.6 (31.0-37.0) g/dL RDW 18.0 H (11.5-15.5) % Plt Count 346 (150-450) k/uL Neutrophils % 66 % Lymphocytes % 22 % Monocytes % 7 % Eosinophils % 2 % Basophils % 1 % Neutrophils # 7.1 (1.3-7.7) k/uL Lymphocytes # 2.4 (1.0-4.8) k/uL Monocytes # 0.8 (0-1.0) k/uL Eosinophils # 0.2 (0-0.7) k/uL Basophils # 0.1 (0-0.2) k/uL Hypochromasia Marked Poikilocytosis Moderate Anisocytosis Slight PT 19.6 H (9.0-12.0) sec INR 2.0 H (<1.2) APTT 35.6 H (22.0-30.0) sec D-Dimer 0.67 H (<0.60) mg/L FEU Sodium 142 (137-145) mmol/L Potassium 3.1 L (3.5-5.1) mmol/L Chloride 114 H (98-107) mmol/L Carbon Dioxide 19 L (22-30) mmol/L Anion Gap 9 mmol/L BUN 5 L (7-17) mg/dL Creatinine 0.55 (0.52-1.04) mg/dL Est GFR (CKD-EPI)AfAm >90 (>60 ml/min/1.73 sqM) Est GFR (CKD-EPI)NonAf >90 (>60 ml/min/1.73 sqM) Glucose 88 (74-99) mg/dL Calcium 8.4 (8.4-10.2) mg/dL Total Bilirubin 0.3 (0.2-1.3) mg/dL AST 100 H (14-36) U/L ALT 48 (9-52) U/L Alkaline Phosphatase 110 (38-126) U/L Total Protein 5.7 L (6.3-8.2) g/dL Albumin 3.0 L (3.5-5.0) g/dL Disposition Is patient prescribed a controlled substance at d/c from ED?: No <Phan Cavazos - Last Filed: 09/29/18 05:02> Is patient prescribed a controlled substance at d/c from ED?: No Time of Disposition: 08:05 <Bhupendra Baker - Last Filed: 09/29/18 08:05> Clinical Impression: Myalgia Disposition: HOME SELF-CARE Condition: Fair Referrals: Liz Koch MD [Primary Care Provider] - 1-2 days
--- NOTE | 2018-09-29 07:35 | US ---
EXAMINATION TYPE: US venous doppler duplex LE RT DATE OF EXAM: 09/29/2018 7:24 AM COMPARISON: NONE CLINICAL HISTORY: Pain. Right leg pain today, h/o dvt within legs and lungs, on Coumadin, no swelling SIDE PERFORMED: Right TECHNIQUE: The lower extremity deep venous system is examined utilizing real time linear array sonog nisha with graded compression, doppler sonography and color-flow sonography. VESSELS IMAGED: External Iliac Vein (EIV) Common Femoral Vein Deep Femoral Vein Greater Saphenous Vein * Femoral Vein Popliteal Vein Small Saphenous Vein * Proximal Calf Veins (* superficial vessels) Right Leg: Appears negative for DVT No popliteal fossa lesion is seen. IMPRESSION: THIS EXAMINATION IS NEGATIVE FOR DVT WITHIN THE RIGHT LEG.
[2018-09-29] MEDS ORDERED: HYDROmorphone 1 MG/ML 1 ML SYRINGE IVP STA (07:54)
[2018-09-29 08:14] VITALS: BP 97/53; PULSE 95; RESP 20; TEMP 99.1
== END 2018-09-29 08:21 | disposition home or self-care (01) ==
LOC: EC
DX: M79.18 Myalgia, other site (principal); D72.821 Monocytosis (symptomatic); R79.1 Abnormal coagulation profile; E87.6 Hypokalemia; I11.0 Hypertensive heart disease with heart failure; I50.9 Heart failure, unspecified; F41.9 Anxiety disorder, unspecified; F17.200 Nicotine dependence, unspecified, uncomplicated; E07.9 Disorder of thyroid, unspecified; I25.2 Old myocardial infarction; I25.10 Atherosclerotic heart disease of native coronary artery without angina pectoris; Z86.73 Personal history of transient ischemic attack (TIA), and cerebral infarction without residual deficits; Z86.711 Personal history of pulmonary embolism; Z99.11 Dependence on respirator [ventilator] status; Z79.01 Long term (current) use of anticoagulants; Z79.4 Long term (current) use of insulin; Z95.5 Presence of coronary angioplasty implant and graft; Z88.1 Allergy status to other antibiotic agents; Z88.6 Allergy status to analgesic agent; Z86.718 Personal history of other venous thrombosis and embolism; Z99.81 Dependence on supplemental oxygen; Z91.041 Radiographic dye allergy status; Z79.899 Other long term (current) drug therapy; Z91.048 Other nonmedicinal substance allergy status; Z88.5 Allergy status to narcotic agent; Z98.890 Other specified postprocedural states; Z86.14 Personal history of Methicillin resistant Staphylococcus aureus infection
CPT/HCPCS: 99284; 96374; 96375 ×2; 96372; 36415; 85379; 80053; 85025; 85610; 85730; 73590; 93971; J2270; J2405; J1170

== ENCOUNTER → 2018-10-04 | Outpatient (CLI) | payer BC, OTHER ==
--- NOTE | 2018-10-04 15:09 | US ---
EXAMINATION TYPE: US venous doppler duplex LE RT DATE OF EXAM: 10/04/2018 2:56 PM COMPARISON: US 09/29/18 CLINICAL HISTORY: 48-year-old female M79.89 right leg swelling. SIDE PERFORMED: Right TECHNIQUE: The lower extremity deep venous system is examined utilizing real time linear array sonog nisha with graded compression, doppler sonography and color-flow sonography. FINDINGS: VESSELS IMAGED: External Iliac Vein (EIV) Common Femoral Vein Deep Femoral Vein Greater Saphenous Vein * Femoral Vein Popliteal Vein Small Saphenous Vein * (* superficial vessels) Right Leg: Negative for DVT IMPRESSION: No evidence for DVT within the right lower extremity imaged from the groin to the knee.
== END | disposition home or self-care (01) ==
LOC: RADUSWWP 14:27
PROVIDERS: ATTEND Family Medicine
DX: M79.89 Other specified soft tissue disorders (principal)

== ENCOUNTER 2018-12-01 17:52 | Emergency (ER) | payer BC, OTHER ==
[2018-12-01] MEDS ORDERED: DEXAMETHASONE SOD PHOSPHATE 10 MG/ML 1 ML VIAL IV STA (20:00)
[2018-12-01] MEDS ORDERED: LIDOCAINE 5% PATCH TOPICAL STA (20:00)
[2018-12-01] MEDS ORDERED: MORPHINE SULFATE 4 MG/ML SYRINGE IVP STA (20:02)
--- NOTE | 2018-12-01 20:53 | XR ---
EXAMINATION TYPE: XR sacrum coccyx DATE OF EXAM: 12/01/2018 COMPARISON: NONE HISTORY: 48-year-old female with pain. FINDINGS: Some degenerative subarticular sclerosis suggested at the right SI joint. Suboptimal delineation to t he arcuate lines of the sacrum. No displaced or angulated sacrum are coaxial fracture identified. IMPRESSION: No displaced or angulated sacrococcygeal fracture identified radiographically.
[2018-12-01] MEDS ORDERED: CYCLOBENZAPRINE 10MG STARTER 3 TAB BTL PO STA (21:23)
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
[2018-12-01 22:10] VITALS: BP 138/88; PULSE 88; RESP 22; TEMP 97.7
== END 2018-12-01 22:10 | disposition home or self-care (01) ==
LOC: EC 17:52
DX: M54.5 Low back pain (principal); M79.606 Pain in leg, unspecified; R20.0 Anesthesia of skin; I25.10 Atherosclerotic heart disease of native coronary artery without angina pectoris; I11.0 Hypertensive heart disease with heart failure; I50.9 Heart failure, unspecified; M79.7 Fibromyalgia; I25.2 Old myocardial infarction; F41.9 Anxiety disorder, unspecified; F17.200 Nicotine dependence, unspecified, uncomplicated; Z86.73 Personal history of transient ischemic attack (TIA), and cerebral infarction without residual deficits; Z86.711 Personal history of pulmonary embolism; Z86.718 Personal history of other venous thrombosis and embolism; Z86.14 Personal history of Methicillin resistant Staphylococcus aureus infection; Z95.818 Presence of other cardiac implants and grafts; Z79.01 Long term (current) use of anticoagulants; Z79.899 Other long term (current) drug therapy; Z88.1 Allergy status to other antibiotic agents; Z91.041 Radiographic dye allergy status; Z88.6 Allergy status to analgesic agent; Z91.048 Other nonmedicinal substance allergy status; Z88.8 Allergy status to other drugs, medicaments and biological substances; Z88.5 Allergy status to narcotic agent
CPT/HCPCS: 72220; 99283; 96374; 96375; J2270; J1100

== ENCOUNTER 2018-12-13 20:46 | Observation (INO) | payer BC, OTHER ==
--- NOTE | 2018-12-13 21:35 | ED ---
SOB HPI - General Chief Complaint: Shortness of Breath Stated Complaint: SOB Time Seen by Provider: 12/13/18 21:34 Source: patient Mode of arrival: ambulatory Limitations: no limitations - History of Present Illness Initial Comments: Meme is a 48 her old female with extensive past medical history most significant for chronic pulmonary fibrosis who presents to the emergency department today for evaluation of URI-like symptoms and wheezing. Patient's significant other reports that over the past week the patient has had a nonproductive cough and worsening shortness of breath, patient states that today she just felt like she couldn't catch her breath she was wheezing worsen usual not responding to her breathing treatments. She put on supplemental oxygenation but didn't feel any relief, she increased her supplemental oxygenation 5 L again with minimal relief. At that time decision was made, the hospital for evaluation. Patient reports her cough has been nonproductive she's had no fevers chills or chest pain. - Related Data Home Medications Medication Instructions Recorded Confirmed lamoTRIgine [LaMICtal] 200 mg PO DAILY 03/22/16 12/13/18 Bumetanide 2 mg PO DAILY 10/18/16 12/13/18 Nystatin 100,000 Unit/gm Powd 1 applic TOPICAL BID 11/04/17 12/13/18 [Mycostatin Powder] Multivitamins, Thera [Multivitamin 1 tab PO DAILY 08/25/18 12/13/18 (formulary)] Potassium Chloride ER [K-Dur 20] 40 meq PO DAILY 08/25/18 12/13/18 FLUoxetine HCL [PROzac] 20 mg PO DAILY 08/26/18 12/13/18 Butalb/Acetaminophen/Caffeine 1 cap PO Q4H PRN 09/08/18 12/13/18 [Fioricet 50-300-40 mg Capsule] Ergocalciferol [Vitamin D2 50,000 unit PO TH 09/08/18 12/13/18 (DRISDOL)] Mirtazapine [Remeron] 45 mg PO HS 09/08/18 12/13/18 Pregabalin [Lyrica] 150 mg PO BID 09/08/18 12/13/18 Acetaminophen-Codeine 300-30mg 1 tab PO Q4-6H PRN 12/01/18 12/13/18 [Tylenol w/codeine #3] Ferrous Sulfate [Feosol] 325 mg PO DAILY 12/01/18 12/13/18 Warfarin [Coumadin] 2 mg PO W/SUPPER 12/01/18 12/13/18 Warfarin [Coumadin] 10 mg PO W/SUPPER 12/01/18 12/13/18 Previous Rx's Medication Instructions Recorded Metoprolol Tartrate [Lopressor] 50 mg PO BID #60 tab 08/20/15 Cyclobenzaprine [Flexeril] 10 mg PO TID PRN #15 tab 12/01/18 Lidocaine [Lidoderm 5% Patch] 1 patch TRANSDERM DAILY #5 patch 12/01/18 Allergies Allergy/AdvReac Type Severity Reaction Status Date / Time cefepime [From Maxipime] Allergy Severe Rash/Hives Verified 12/13/18 22:02 Iodinated Contrast- Oral and Allergy Severe Rash/Hives Verified 12/13/18 22:02 IV Dye ketorolac tromethamine Allergy Severe Anaphylaxis Verified 12/13/18 22:02 [From Toradol] adhesive Allergy Rash/Hives Verified 12/13/18 22:02 rivaroxaban [From Xarelto] Allergy Rash/Hives Verified 12/13/18 22:02 sumatriptan [From Imitrex] Allergy Anaphylaxis Verified 12/13/18 22:02 sumatriptan succinate Allergy Anaphylaxis Verified 12/13/18 22:02 [From Imitrex] tramadol Allergy Anaphylaxis Verified 12/13/18 22:02 iodine AdvReac Intermediate Itching/severe Verified 12/13/18 22:02 hives vancomycin AdvReac Itching Verified 12/13/18 22:02 Rich wipes Allergy Severe Rash/Hives Uncoded 12/13/18 21:04 Review of Systems ROS Statement: Those systems with pertinent positive or pertinent negative responses have been documented in the HPI. ROS Other: All systems not noted in ROS Statement are negative. Past Medical History Past Medical History: Blood Disorder, Coronary Artery Disease (CAD), Heart Failure, COPD, CVA/TIA, Deep Vein Thrombosis (DVT), Fibromyalgia, Hyperlipidemia, Hypertension, Myocardial Infarction (UT), Pneumonia, Pulmonary Embolus (PE), Thyroid Disorder Additional Past Medical History / Comment(s): Sarcoidosis,polycythemia, bilateral PE's, bilateral DVTs, degenerative disk disorder, history of a UT and ventilator dependent respiratory failure with MRSA pneumonia, Viral meningitis in October 2014. Pulmonary fibrosis, home 0xygen at 3l n/c, recent pneumonia, stroke August 15 affecting legs and right arm, neuropathy, Last Myocardial Infarction Date:: February 15, 2013 History of Any Multi-Drug Resistant Organisms: MRSA Date of last positivie culture/infection: 11/09/172018 MDRO Source:: PLEURAL FLUID, sputum Past Surgical History: Section, Cholecystectomy, Heart Catheterization, Hernia Repair, Orthopedic Surgery Additional Past Surgical History / Comment(s): Lt ankle surgery, several bronchosopies, Past Anesthesia/Blood Transfusion Reactions: Previous Problems w/ Anesthesia Additional Past Anesthesia/Blood Transfusion Reaction / Comment(s): previously charted -pt stated that last April she coded possbily due to anesthetic-during bronchoscopy procedure with Dr Hicks Past Psychological History: Anxiety Smoking Status: Current every day smoker Past Alcohol Use History: None Reported Past Drug Use History: None Reported - Past Family History Father Family Medical History: Blood Disorder, Deep Vein Thrombosis (DVT), Myocardial Infarction (UT), Pulmonary Embolus Additional Family Medical History / Comment(s): polycythemia Mother Family Medical History: Deep Vein Thrombosis (DVT) Additional Family Medical History / Comment(s): DDD Sister(s) Family Medical History: No Reported History Brother(s) Family Medical History: No Reported History Son(s) Family Medical History: No Reported History Daughter(s) Family Medical History: No Reported History General Exam - General Exam Comments Initial Comments: Physical Exam GENERAL: Chronically ill-appearing, obese HENT: Normocephalic, Atraumatic. EYES: PERRL, EOMI PULMONARY: Expiratory wheezing in all lung diana CARDIOVASCULAR: There is a regular rate and rhythm without any murmurs gallops or rubs. ABDOMEN: Soft and nontender with normal bowel sounds. SKIN: Skin is clear with no lesions or rashes and otherwise unremarkable. : Deferred NEUROLOGIC: Patient is alert and oriented x3. Moving all extremities spontaneously MUSCULOSKELETAL: Normal extremities with adequate strength and full range of motion. No lower extremity swelling or edema. No calf tenderness. PSYCHIATRIC: Normal psychiatric evaluation. Limitations: no limitations Course Vital Signs 12/13/18 12/13/18 12/13/18 21:01 22:00 22:30 Temperature 98.2 F Pulse Rate 88 80 76 Respiratory 20 17 17 Rate Blood Pressure 114/75 110/83 106/61 O2 Sat by Pulse 96 99 99 Oximetry 12/13/18 12/13/18 12/13/18 23:00 23:08 23:15 Temperature Pulse Rate 78 76 80 Respiratory 12 18 18 Rate Blood Pressure 100/34 O2 Sat by Pulse 98 Oximetry 12/14/18 00:30 Temperature Pulse Rate 86 Respiratory 14 Rate Blood Pressure 108/52 O2 Sat by Pulse 98 Oximetry Medical Decision Making - Medical Decision Making Patient was seen and evaluated, history is obtained from patient Has a history of pulmonary fibrosis, URI symptoms for 1 week and is wheezing today Labs and imaging were unremarkable - hypokalemia was replaced She was reevaluated after DuoNeb and steroids the patient no longer having any w heezing however she does have forced expiratory upper airway sounds. Lungs sounds are completely clear. Heart rate remains in the 80s, oxygen saturation 90 10/17/1997 percent on 2 L nasal cannula. Patient states she's not comfortable being discharged home at this time we will admit her for trauma, breathing treatment, steroids and supplemental oxygen. - Lab Data Result diagrams: 12/13/18 22:19 12/13/18 22:19 Lab Results 12/13/18 12/13/18 12/13/18 Range/Units 22:19 22:19 22:19 WBC 9.1 (3.8-10.6) k/uL RBC 4.83 (3.80-5.40) m/uL Hgb 13.4 (11.4-16.0) gm/dL Hct 41.1 (34.0-46.0) % MCV 85.0 (80.0-100.0) fL MCH 27.7 (25.0-35.0) pg MCHC 32.6 (31.0-37.0) g/dL RDW 19.1 H (11.5-15.5) % Plt Count 234 (150-450) k/uL Neutrophils % 54 % Lymphocytes % 30 % Monocytes % 6 % Eosinophils % 4 % Basophils % 2 % Neutrophils # 5.0 (1.3-7.7) k/uL Lymphocytes # 2.8 (1.0-4.8) k/uL Monocytes # 0.6 (0-1.0) k/uL Eosinophils # 0.3 (0-0.7) k/uL Basophils # 0.1 (0-0.2) k/uL Hypochromasia Slight Anisocytosis Slight PT (9.0-12.0) sec INR (<1.2) APTT (22.0-30.0) sec Sodium 141 (137-145) mmol/L Potassium 3.4 L (3.5-5.1) mmol/L Chloride 110 H (98-107) mmol/L Carbon Dioxide 22 (22-30) mmol/L Anion Gap 9 mmol/L BUN 15 (7-17) mg/dL Creatinine 0.65 (0.52-1.04) mg/dL Est GFR (CKD-EPI)AfAm >90 (>60 ml/min/1.73 sqM) Est GFR (CKD-EPI)NonAf >90 (>60 ml/min/1.73 sqM) Glucose 101 H (74-99) mg/dL Calcium 8.7 (8.4-10.2) mg/dL Total Bilirubin 0.3 (0.2-1.3) mg/dL AST 98 H (14-36) U/L ALT 97 H (9-52) U/L Alkaline Phosphatase 88 (38-126) U/L Troponin I (0.000-0.034) ng/mL NT-Pro-B Natriuret Pep 139 pg/mL Total Protein 7.1 (6.3-8.2) g/dL Albumin 3.5 (3.5-5.0) g/dL 12/13/18 12/13/18 Range/Units 22:19 22:35 WBC (3.8-10.6) k/uL RBC (3.80-5.40) m/uL Hgb (11.4-16.0) gm/dL Hct (34.0-46.0) % MCV (80.0-100.0) fL MCH (25.0-35.0) pg MCHC (31.0-37.0) g/dL RDW (11.5-15.5) % Plt Count (150-450) k/uL Neutrophils % % Lymphocytes % % Monocytes % % Eosinophils % % Basophils % % Neutrophils # (1.3-7.7) k/uL Lymphocytes # (1.0-4.8) k/uL Monocytes # (0-1.0) k/uL Eosinophils # (0-0.7) k/uL Basophils # (0-0.2) k/uL Hypochromasia Anisocytosis PT 10.1 (9.0-12.0) sec INR 0.9 (<1.2) APTT 20.8 L (22.0-30.0) sec Sodium (137-145) mmol/L Potassium (3.5-5.1) mmol/L Chloride (98-107) mmol/L Carbon Dioxide (22-30) mmol/L Anion Gap mmol/L BUN (7-17) mg/dL Creatinine (0.52-1.04) mg/dL Est GFR (CKD-EPI)AfAm (>60 ml/min/1.73 sqM) Est GFR (CKD-EPI)NonAf (>60 ml/min/1.73 sqM) Glucose (74-99) mg/dL Calcium (8.4-10.2) mg/dL Total Bilirubin (0.2-1.3) mg/dL AST (14-36) U/L ALT (9-52) U/L Alkaline Phosphatase (38-126) U/L Troponin I <0.012 (0.000-0.034) ng/mL NT-Pro-B Natriuret Pep pg/mL Total Protein (6.3-8.2) g/dL Albumin (3.5-5.0) g/dL Disposition Clinical Impression: Psychogenic hyperventilation, Obesity Disposition: ADMITTED IP TO THIS [facility] Condition: Stable Referrals: Liz Koch MD [Primary Care Provider] - 1-2 days
[2018-12-13] MEDS ORDERED: IPRATROPIUM-ALBUTEROL 3 ML NEB INHALATION STA (22:03)
[2018-12-13 22:35] LABS: Anisocytosis Slight; Basophils # (A) 0.1 k/uL (0-0.2); Basophils % (A) 2 %; Eosinophils # (A) 0.3 k/uL (0-0.7); Eosinophils % (A) 4 %; HCT 41.1 % (34.0-46.0); HGB 13.4 gm/dL (11.4-16.0); Hypochromasia Slight; Lymphocytes # (A) 2.8 k/uL (1.0-4.8); Lymphocytes % (A) 30 %; MCH 27.7 pg (25.0-35.0); MCHC 32.6 g/dL (31.0-37.0); Mean Platelet Volume 7.2; Monocytes # (A) 0.6 k/uL (0-1.0); Monocytes % (A) 6 %; Neutrophils % (A) 54 %; Platelet Count 234 k/uL (150-450); RBC 4.83 m/uL (3.80-5.40); RDW 19.1 % (11.5-15.5); WBC 9.1 k/uL (3.8-10.6)
[2018-12-13 22:45] LABS: ALT 97 U/L (9-52); AST 98 U/L (14-36); African American GFR (CKD) >90 (>60 ml/min/1.73 sqM); Albumin 3.5 g/dL (3.5-5.0); Alkaline Phosphatase 88 U/L (38-126); Anion Gap 9 mmol/L; Blood Urea Nitrogen 15 mg/dL (7-17); Calcium 8.7 mg/dL (8.4-10.2); Carbon Dioxide 22 mmol/L (22-30); Chloride 110 mmol/L (98-107); Glucose 101 mg/dL (74-99); Potassium 3.4 mmol/L (3.5-5.1); Sodium 141 mmol/L (137-145); Total Bilirubin 0.3 mg/dL (0.2-1.3); Total Protein 7.1 g/dL (6.3-8.2)
[2018-12-13 22:59] LABS: INR 0.9 (<1.2); Prothrombin Time 10.1 sec (9.0-12.0)
[2018-12-13] MEDS ORDERED: methylPREDNISolone SOD SUCCI 125 MG/2 ML VIAL IV STA (23:00)
[2018-12-13 23:16] LABS: Partial Thromboplastin Time 20.8 sec (22.0-30.0)
[2018-12-13] MEDS ORDERED: HYDROmorphone 0.5 MG/0.5 ML SYRINGE IVP STA (23:16)
--- NOTE | 2018-12-13 23:41 | XR ---
EXAM: XR Chest, 2 Views CLINICAL HISTORY: Dyspnea. TECHNIQUE: Frontal and lateral views of the chest. COMPARISON: 07/26/2018. FINDINGS: Lungs: Unremarkable. No consolidation. Pleural space: No pneumothorax Heart: Cardiomegaly Mediastinum: Unremarkable. Bones/joints: Osteopenia Alignment of the thoracic spine is unremarkable Mild degenerative disc disease. Other findings: There is hyperaeration IMPRESSION: Cardiomegaly and hyperaeration. Clinical correlation is necessary to exclude etiologies such as incipient congestive heart failure.
[2018-12-14] MEDS ORDERED: IPRATROPIUM-ALBUTEROL 3 ML NEB INHALATION STA (00:40)
[2018-12-14] MEDS ORDERED: ACETAMINOPHEN TAB 325 MG TAB PO STA (00:41)
[2018-12-14] MEDS ORDERED: POTASSIUM CHLORIDE ER 20 MEQ TAB.ER PO STA (00:47)
[2018-12-14] MEDS: HYDROmorphone 0.5 MG/0.5 ML SYRINGE IVP PRN ×7 (01:01→23:40)
[2018-12-14 03:16] VITALS: BMI 34.8
[2018-12-14] MEDS: LIDOCAINE 5% PATCH TOPICAL SCH (08:50)
[2018-12-14] MEDS: FERROUS SULFATE 325 MG TAB PO SCH (08:50)
[2018-12-14] MEDS: METOPROLOL TARTRATE 50 MG TAB PO SCH ×2 (08:51→20:31)
[2018-12-14] MEDS: lamoTRIgine 100 MG TAB PO SCH (08:51)
[2018-12-14] MEDS: MULTIVITAMINS, THERA 1 EACH TAB PO SCH (08:52)
[2018-12-14] MEDS: FLUoxetine HCL 20 MG CAP PO SCH (08:52)
[2018-12-14] MEDS: PREGABALIN 75 MG CAP PO SCH ×2 (08:55→20:32)
[2018-12-14] MEDS ORDERED: predniSONE 20 MG TAB PO SCH (09:00)
--- NOTE | 2018-12-14 11:31 | XR ---
EXAMINATION TYPE: XR chest 1V portable DATE OF EXAM: 12/14/2018 HISTORY: chf. REFERENCE: Previous study dated 12/13/2018. FINDINGS: The study is shot in a lordotic projection. The heart is mildly enlarged. There is vascular congestion and mild edema. No definite pleural fluid is seen. IMPRESSION: FINDINGS CONSISTENT WITH CONGESTIVE HEART FAILURE.
[2018-12-14] MEDS: IPRATROPIUM-ALBUTEROL 3 ML NEB INHALATION PRN ×2 (12:35→16:11)
[2018-12-14] MEDS ORDERED: Magnesium Replacement Protocol 1 EACH MISC MISCELLANE PRN (13:25)
[2018-12-14] MEDS ORDERED: Potassium Replacement Protocol 1 EACH MISC MISCELLANE PRN (13:25)
[2018-12-14] MEDS ORDERED: ACETAMINOPHEN TAB 500 MG TAB PO PRN (13:26)
[2018-12-14] MEDS ORDERED: TEMAZEPAM 15 MG CAP PO PRN (13:26)
[2018-12-14] MEDS ORDERED: ALPRAZolam 0.25 MG TAB PO PRN (13:26)
[2018-12-14] MEDS ORDERED: POTASSIUM CHLORIDE ER 20 MEQ TAB.ER PO SCH (13:30)
[2018-12-14 13:41] LABS: ALT 79 U/L (9-52); AST 64 U/L (14-36); African American GFR (CKD) >90 (>60 ml/min/1.73 sqM); Albumin 3.5 g/dL (3.5-5.0); Alkaline Phosphatase 85 U/L (38-126); Anion Gap 9 mmol/L; Blood Urea Nitrogen 12 mg/dL (7-17); Calcium 8.8 mg/dL (8.4-10.2); Carbon Dioxide 19 mmol/L (22-30); Chloride 111 mmol/L (98-107); Glucose 140 mg/dL (74-99); Potassium 4.1 mmol/L (3.5-5.1); Sodium 139 mmol/L (137-145); Total Bilirubin 0.3 mg/dL (0.2-1.3)
[2018-12-14] MEDS ORDERED: LORazepam 1 MG TAB PO PRN (13:54)
--- NOTE | 2018-12-14 15:04 | HP ---
HISTORY AND PHYSICAL DATE OF SERVICE: 12/14/2018 CHIEF COMPLAINT: Shortness of breath, cough and sputum. HISTORY OF PRESENT ILLNESS: This 48-year-old woman with a past medical history of multiple medical problems including pulmonary fibrosis, history of CAD, history of COPD, history of DVT, fibromyalgia, history of myocardial infarction, history of pulmonary embolism, history of sarcoidosis, polycythemia, bilateral pulmonary embolism being followed by Dr. Liz Koch in the outpatient setting was complaining not feeling well over the past several days. The patient did shortness of breath, cough and sputum. Patient came to [facility]. Chest x-ray showed suspicion of CHF, but, however, the BNP is normal. The patient is being closely monitored. No chest pain or palpitation. No fever. The patient is followed by Miesha Ramirez in the outpatient setting. PAST MEDICAL HISTORY: History of CAD, history of CHF, history of COPD, CVA, TIA, diabetes mellitus type 2, hypertension, hyperlipidemia, myocardial function, pneumonia, history of pulmonary embolism, history of anxiety. MEDICATIONS: Medications prior, home medications are: 1. Coumadin 2 mg p.o. with supper. 2. Coumadin 10 mg with supper. 3. Remeron 45 mg q.h.s. 4. Drisdol 50,000 p.o. . 5. Flexeril 10 mg p.o. t.i.d. p.r.n. 6. Fioricet q.4 p.r.n. 7. Tylenol No.3 p.r.n. 8. Lamictal 200 mg daily. 9. Lyrica 150 mg p.o. b.i.d. 10.K-Dur 40 mEq p.o. daily. 11.Mycostatin 1 application b.i.d. 12.Multivitamins one p.o. daily. 13.Lopressor 50 mg p.o. b.i.d. 14.Lidoderm patch 1 daily. 15.Iron sulfate 325 mg daily. 16.Prozac 20 mg p.o. daily. 17.Bumex 2 mg p.o. daily. ALLERGIES: Allergies are CEFEPIME, IODINATED CONTRAST, KETOROLAC, ADHESIVES, XARELTO, IMITREX, TRAMADOL, IODINE, VANCOMYCIN, NICOL WIPES. FAMILY HISTORY: History of diabetes, history of DVT, history myocardial infarction, pulmonary embolism, history of polycythemia. SOCIAL HISTORY: History of smoking, continued, ongoing. No history of alcohol intake. REVIEW OF SYSTEMS: ENT: No diminished hearing or diminished vision. CARDIOVASCULAR SYSTEM: No angina or palpitations. RESPIRATORY SYSTEM: As mentioned earlier. GI: No nausea. : No dysuria. NERVOUS SYSTEM: No numbness or weakness. ALLERGY/IMMUNOLOGY No asthma or hayfever. MUSCULOSKELETAL: As mentioned earlier. HEMATOLOGY/ONCOLOGY: No history of anemia. ENDOCRINE: history of diabetes or hypothyroidism. CONSTITUTIONAL: As mentioned earlier. DERMATOLOGY: Negative. RHEUMATOLOGY: Negative. PSYCHIATRY: As mentioned earlier. PHYSICAL EXAMINATION: Patient is alert and oriented x3. The pulse is 107, blood pressure 117/65, respirations 16, temperature 97.2, pulse ox 95% on room air. HEENT: Conjunctivae normal. NECK: No jugular venous distention. CARDIOVASCULAR: S1, S2, muffled. RESPIRATORY: Breath sounds diminished at the bases. A few scattered rhonchi and crackles. Expiratory wheezing. ABDOMEN: Soft, nontender. NERVOUS SYSTEM: No focal deficits. LABS: CBC within normal limits. Sodium 141, potassium 3.4. AST 98, ALT is 97. ASSESSMENT: 1. Chronic obstructive pulmonary disease acute exacerbation acute purulent tracheobronchitis with failure of outpatient treatment. 2. History of congestive heart failure, ejection fraction unknown. 3. History of deep vein thrombosis. 4. Fibromyalgia. 5. Hypertension. 6. Hyperlipidemia. 7. History of myocardial infarction. 8. History of pneumonia. 9. History of pulmonary embolism. 10.History of hypothyroidism. 11.History of sarcoidosis. 12.History of polycythemia. 13.History of bilateral pulmonary embolism and bilateral deep venous thromboses. 14.History of myocardial infarction 15.History of methicillin-resistant Staphylococcus aureus pneumonia. 16.History of viral meningitis. 17.History of pulmonary fibrosis. 18.History of peripheral neuropathy. 19.History of methicillin-resistant Staphylococcus aureus. 20.History of anxiety. 21.Continued ongoing nicotine dependence. 22.Obesity with body mass of 34.3. RECOMMENDATIONS AND DISCUSSION: This 48-year-old woman presented with multiple complex medical problems. At this time I recommend to continue current medications and continue symptomatic treatment. bronchodilator treatment, steroids, empiric antibiotics. Continue the rest of medications. DVT prophylaxis. Continue with Coumadin. We will administer heparin subcu until the patient is therapeutic. Otherwise, prognosis guarded because of multiple complex medical issues. Further recommendations to follow. Discussed with the patient. A copy of dictation forwarded to Miesha Ramirez who is the primary physician. MMGEOVANNAL / IJN: [id number] / MTDD
[2018-12-14] MEDS: LEVOFLOXACIN 500MG-D5W PMX 500 MG in DEXTROSE/WATER 1 100ML.BAG IVPB SCH (15:58)
[2018-12-14] MEDS: POTASSIUM CHLORIDE ER 20 MEQ TAB.ER PO SCH ×2 (16:00→20:32)
[2018-12-14] MEDS: FUROSEMIDE 10 MG/ML 4 ML VIAL IV SCH (16:00)
[2018-12-14] MEDS: INSULIN ASPART (NovoLOG) 100 UNIT/ML VIAL SQ SCH ×2 (18:20→20:31)
[2018-12-14] MEDS: methylPREDNISolone SOD SUCCI 40 MG/ML 1 ML VIAL IV SCH ×2 (18:20→23:40)
[2018-12-14 18:49] LABS: Glucose,Whole Blood 252 mg/dL (75-99)
[2018-12-14] MEDS: IPRATROPIUM-ALBUTEROL 3 ML NEB INHALATION SCH (19:31)
[2018-12-14 20:07] LABS: Glucose,Whole Blood 254 mg/dL (75-99)
[2018-12-14] MEDS: HEPARIN SODIUM,PORCINE 5,000 UNIT/ML 1 ML VIAL SQ SCH (20:31)
[2018-12-14] MEDS: MIRTAZAPINE 45 MG TABLET PO SCH (20:32)
[2018-12-15] MEDS: IPRATROPIUM-ALBUTEROL 3 ML NEB INHALATION PRN ×2 (00:09→16:15)
[2018-12-15] MEDS: HYDROmorphone 0.5 MG/0.5 ML SYRINGE IVP PRN ×7 (02:34→23:09)
[2018-12-15] MEDS: methylPREDNISolone SOD SUCCI 40 MG/ML 1 ML VIAL IV SCH ×4 (05:23→23:13)
[2018-12-15 07:08] LABS: Anisocytosis Slight; Basophils % (A) 0 %; Eosinophils # (A) 0.1 k/uL (0-0.7); Eosinophils % (A) 1 %; HCT 40.1 % (34.0-46.0); HGB 12.5 gm/dL (11.4-16.0); Hypochromasia Slight; Lymphocytes # (A) 1.3 k/uL (1.0-4.8); Lymphocytes % (A) 10 %; MCH 27.5 pg (25.0-35.0); MCHC 31.2 g/dL (31.0-37.0); MCV 88.1 fL (80.0-100.0); Mean Platelet Volume 7.5; Monocytes # (A) 0.6 k/uL (0-1.0); Monocytes % (A) 5 %; Neutrophils # (A) 10.3 k/uL (1.3-7.7); Neutrophils % (A) 83 %; Platelet Count 220 k/uL (150-450); RBC 4.55 m/uL (3.80-5.40); RDW 19.5 % (11.5-15.5); WBC 12.4 k/uL (3.8-10.6)
[2018-12-15 07:11] LABS: Glucose,Whole Blood 210 mg/dL (75-99)
[2018-12-15 07:12] LABS: Prothrombin Time 10.5 sec (9.0-12.0)
[2018-12-15 07:33] LABS: African American GFR (CKD) >90 (>60 ml/min/1.73 sqM); Anion Gap 9 mmol/L; Blood Urea Nitrogen 16 mg/dL (7-17); Calcium 8.6 mg/dL (8.4-10.2); Carbon Dioxide 21 mmol/L (22-30); Chloride 109 mmol/L (98-107); Glucose 229 mg/dL (74-99); Magnesium 2.1 mg/dL (1.6-2.3); Potassium 4.4 mmol/L (3.5-5.1); Sodium 139 mmol/L (137-145)
[2018-12-15] MEDS: INSULIN ASPART (NovoLOG) 100 UNIT/ML VIAL SQ SCH ×4 (08:29→23:20)
[2018-12-15] MEDS: LIDOCAINE 5% PATCH TOPICAL SCH (08:29)
[2018-12-15] MEDS: MULTIVITAMINS, THERA 1 EACH TAB PO SCH (08:30)
[2018-12-15] MEDS: FLUoxetine HCL 20 MG CAP PO SCH (08:30)
[2018-12-15] MEDS: lamoTRIgine 100 MG TAB PO SCH (08:30)
[2018-12-15] MEDS: POTASSIUM CHLORIDE ER 20 MEQ TAB.ER PO SCH ×2 (08:30→20:45)
[2018-12-15] MEDS: METOPROLOL TARTRATE 50 MG TAB PO SCH ×2 (08:31→20:45)
[2018-12-15] MEDS: FUROSEMIDE 10 MG/ML 4 ML VIAL IV SCH (08:31)
[2018-12-15] MEDS: FERROUS SULFATE 325 MG TAB PO SCH (08:31)
[2018-12-15] MEDS: HEPARIN SODIUM,PORCINE 5,000 UNIT/ML 1 ML VIAL SQ SCH ×2 (08:31→20:45)
[2018-12-15] MEDS: PANTOPRAZOLE 40 MG TABLET PO SCH (08:31)
[2018-12-15] MEDS: IPRATROPIUM-ALBUTEROL 3 ML NEB INHALATION SCH ×3 (10:00→21:38)
[2018-12-15 11:29] LABS: Glucose,Whole Blood 160 mg/dL (75-99)
[2018-12-15] MEDS: PREGABALIN 75 MG CAP PO SCH ×2 (11:48→20:45)
[2018-12-15] MEDS: LEVOFLOXACIN 500MG-D5W PMX 500 MG in DEXTROSE/WATER 1 100ML.BAG IVPB SCH (14:00)
[2018-12-15] MEDS: guaiFENesin SYRUP 100MG/5ML 200 MG/10 ML CUP PO PRN ×2 (14:00→21:41)
[2018-12-15] MEDS: BENZOCAINE/MENTHOL LOZENG 1 EACH LOZENGE MUCOUS MEM PRN ×3 (14:04→23:09)
[2018-12-15 16:51] LABS: Glucose,Whole Blood 158 mg/dL (75-99)
--- NOTE | 2018-12-15 20:28 | PN ---
PROGRESS NOTE DATE OF SERVICE: 12/15/2018 This is a 48-year-old woman who was admitted with COPD exacerbation, has significant wheezing also. No chest pain. No palpitations. No fever. Patient following with Dr. Clark in the outpatient setting. EXAM: Alert and oriented x3. Pulse 81, blood pressure 100/60, respiration 14, temperature 97.4, pulse ox 98% on room air skin: HEENT: Conjunctivae normal. Oral mucosa moist. NECK: No jugular venous distention. No lymph node enlargement. CARDIOVASCULAR: S1, S2. RESPIRATORY: Diminished breath sounds at the bases. Bilateral scattered rhonchi and crackles. ABDOMEN: Soft, nontender. LEGS: No swelling. NERVOUS SYSTEM: No focal deficits. LABS: WBC 12.2, hemoglobin 12.5, sodium 139, potassium 4.4. ASSESSMENT: 1. Chronic obstructive pulmonary disease acute exacerbation with acute purulent tracheobronchitis with failure of outpatient treatment. 2. History of congestive heart failure, ejection fraction unknown. 3. History of deep vein thrombosis. 4. Fibromyalgia. 5. Hypertension. 6. History of hyperlipidemia. 7. History of myocardial infarction. 8. History of pneumonia. 9. History of pulmonary embolism. 10.History hypothyroidism. 11.History of sarcoidosis. 12.History of polycythemia. 13.Bilateral pulmonary embolism and bilateral deep vein thrombosis. 14.History of myocardial infarction. 15.History of MRSA. 16.History of viral meningitis. 17.History of pulmonary fibrosis. 18.History of peripheral neuropathy. 19.History of anxiety. 20.Continued ongoing nicotine dependence. 21.Obesity with body mass index of 34.3. RECOMMENDATIONS AND DISCUSSION: I recommend to continue current medications, continue to monitor, continue symptomatic treatment. Otherwise, at this time I recommend to continue with bronchodilators and continue with IV steroids. I would recommend to follow the patient closely with Pulmonary. Further recommendations to follow. MMODL / IJN: [id number] /
[2018-12-15] MEDS: MIRTAZAPINE 45 MG TABLET PO SCH (20:45)
[2018-12-15 20:54] LABS: Glucose,Whole Blood 142 mg/dL (75-99)
[2018-12-15 23:23] LABS: Glucose,Whole Blood 147 mg/dL (75-99)
[2018-12-16] MEDS: HYDROmorphone 0.5 MG/0.5 ML SYRINGE IVP PRN ×2 (04:21→08:23)
[2018-12-16] MEDS: IPRATROPIUM-ALBUTEROL 3 ML NEB INHALATION PRN (04:37)
[2018-12-16] MEDS: BENZOCAINE/MENTHOL LOZENG 1 EACH LOZENGE MUCOUS MEM PRN (05:52)
[2018-12-16] MEDS: methylPREDNISolone SOD SUCCI 40 MG/ML 1 ML VIAL IV SCH (05:52)
[2018-12-16 05:59] VITALS: BP 100/67; RESP 19; TEMP 97.5
[2018-12-16 07:31] LABS: Glucose,Whole Blood 117 mg/dL (75-99)
[2018-12-16 08:22] LABS: Anisocytosis Slight; Basophils # (A) 0.1 k/uL (0-0.2); Basophils % (A) 1 %; Eosinophils # (A) 0.1 k/uL (0-0.7); Eosinophils % (A) 1 %; HCT 40.7 % (34.0-46.0); HGB 12.5 gm/dL (11.4-16.0); Hypochromasia Moderate; Lymphocytes # (A) 1.1 k/uL (1.0-4.8); Lymphocytes % (A) 12 %; MCH 27.5 pg (25.0-35.0); MCHC 30.7 g/dL (31.0-37.0); MCV 89.5 fL (80.0-100.0); Mean Platelet Volume 7.7; Monocytes # (A) 0.4 k/uL (0-1.0); Monocytes % (A) 4 %; Neutrophils # (A) 7.7 k/uL (1.3-7.7); Neutrophils % (A) 81 %; Platelet Count 201 k/uL (150-450); RBC 4.55 m/uL (3.80-5.40); RDW 19.7 % (11.5-15.5); WBC 9.4 k/uL (3.8-10.6)
[2018-12-16] MEDS: PREGABALIN 75 MG CAP PO SCH (08:23)
[2018-12-16] MEDS: FLUoxetine HCL 20 MG CAP PO SCH (08:24)
[2018-12-16] MEDS: PANTOPRAZOLE 40 MG TABLET PO SCH (08:24)
[2018-12-16] MEDS: POTASSIUM CHLORIDE ER 20 MEQ TAB.ER PO SCH (08:24)
[2018-12-16] MEDS: MULTIVITAMINS, THERA 1 EACH TAB PO SCH (08:24)
[2018-12-16] MEDS: INSULIN ASPART (NovoLOG) 100 UNIT/ML VIAL SQ SCH (08:24)
[2018-12-16] MEDS: METOPROLOL TARTRATE 50 MG TAB PO SCH (08:24)
[2018-12-16] MEDS: HEPARIN SODIUM,PORCINE 5,000 UNIT/ML 1 ML VIAL SQ SCH (08:24)
[2018-12-16] MEDS: FUROSEMIDE 10 MG/ML 4 ML VIAL IV SCH (08:24)
[2018-12-16] MEDS: lamoTRIgine 100 MG TAB PO SCH (08:24)
[2018-12-16] MEDS: FERROUS SULFATE 325 MG TAB PO SCH (08:24)
[2018-12-16] MEDS: LIDOCAINE 5% PATCH TOPICAL SCH (08:25)
[2018-12-16 08:37] LABS: Prothrombin Time 10.5 sec (9.0-12.0)
[2018-12-16 08:48] LABS: African American GFR (CKD) >90 (>60 ml/min/1.73 sqM); Anion Gap 9 mmol/L; Blood Urea Nitrogen 17 mg/dL (7-17); Calcium 8.7 mg/dL (8.4-10.2); Carbon Dioxide 19 mmol/L (22-30); Chloride 112 mmol/L (98-107); Glucose 119 mg/dL (74-99); Potassium 4.8 mmol/L (3.5-5.1); Sodium 140 mmol/L (137-145)
[2018-12-16] MEDS: IPRATROPIUM-ALBUTEROL 3 ML NEB INHALATION SCH (09:27)
[2018-12-16 09:41] VITALS: PULSE 86
--- NOTE | 2018-12-17 06:42 | DS ---
DISCHARGE SUMMARY DATE OF SERVICE: 12/16/2018 FINAL DIAGNOSES: 1. Chronic obstructive pulmonary disease acute exacerbation acute purulent tracheobronchitis with failure of outpatient treatment. 2. History of congestive heart failure, ejection fraction unknown. 3. History of deep venous thrombosis. 4. Fibromyalgia. 5. Hypertension. 6. History of hyperlipidemia. 7. History of myocardial infarction. 8. History of pneumonia. 9. History of pulmonary embolism. 10.History of hypothyroidism. 11.History of sarcoidosis. 12.History of polycythemia. 13.Bilateral pulmonary embolism and bilateral deep vein thrombosis. 14.History of myocardial infarction. 15.History of methicillin-resistant Staphylococcus aureus. 16.History of viral meningitis. 17.History of pulmonary fibrosis. 18.History of peripheral neuropathy. 19.History of anxiety. 20.Continued ongoing nicotine dependence. 21.Obesity with body mass index of 34.3. DISCHARGE DISPOSITION: The patient will be discharged in stable condition with guarded prognosis. HISTORY OF PRESENT ILLNESS: This 48-year-old woman with a past medical history of multiple medical problems admitted with COPD acute exacerbation as well as CHF as well as acute purulent tracheobronchitis, treated with bronchodilators, steroids and antibiotics, improved significantly. Dr. Clark cleared the patient for discharge. The patient will be discharged in stable condition with guarded prognosis. 1. Diet is cardiac. 2. Activity limited until followup. 3. Follow up with Dr. Liz Koch in 2 to 3 days. 4. Follow up with Dr. Clark as recommended. Medications are: 1. Bumex 2 mg p.o. daily. 2. Coumadin 12 mg with supper. 3. Fioricet p.r.n. 4. Iron 325 mg p.o. daily. 5. K-Dur 40 mEq p.o. daily. 6. Lamictal 200 mg p.o. daily. 7. Lyrica 150 mg b.i.d. 8. Multivitamins one p.o. daily. 9. Mycostatin b.i.d. 10.Prozac 20 mg p.o. daily. 11.Remeron 45 mg q.h.s. 12.Tylenol No.3 one tablet q.4 to 6 p.r.n. 13.Drisdol 50,000 q. . 14.DuoNeb q.i.d. 15.Flexeril 10 mg t.i.d. p.r.n. 16.Levaquin 500 mg p.o. daily for 5 days. 17.Lidoderm patch. 18.Lopressor 50 mg p.o. b.i.d. 19.Prednisone taper that is 40 mg daily for 3 days, 30 for 3 days, 20 for 3 days 10 for 3 days. 20.Symbicort 160/4.5 one puff b.i.d. Once again, the patient will be discharged in a stable condition with guarded prognosis. MMODL / IJN: [id number] /
== END 2018-12-16 11:03 | disposition home or self-care (01) ==
LOC: EC 20:46 → 4MS4W 12-14 00:46
PROVIDERS: ADMIT Internal Medicine; ATTEND Internal Medicine
DX: J44.1 Chronic obstructive pulmonary disease with (acute) exacerbation (principal); J44.0 Chronic obstructive pulmonary disease with (acute) lower respiratory infection; J20.9 Acute bronchitis, unspecified; J84.10 Pulmonary fibrosis, unspecified; I11.0 Hypertensive heart disease with heart failure; I50.9 Heart failure, unspecified; F17.200 Nicotine dependence, unspecified, uncomplicated; F41.9 Anxiety disorder, unspecified; E87.6 Hypokalemia; E66.9 Obesity, unspecified; Z68.34 Body mass index [BMI] 34.0-34.9, adult; M79.7 Fibromyalgia; E78.5 Hyperlipidemia, unspecified; D75.1 Secondary polycythemia; D86.9 Sarcoidosis, unspecified; E03.9 Hypothyroidism, unspecified; G62.9 Polyneuropathy, unspecified; I26.99 Other pulmonary embolism without acute cor pulmonale; Z79.01 Long term (current) use of anticoagulants; Z79.899 Other long term (current) drug therapy; Z79.891 Long term (current) use of opiate analgesic; Z88.6 Allergy status to analgesic agent; Z88.1 Allergy status to other antibiotic agents; Z91.041 Radiographic dye allergy status; Z88.5 Allergy status to narcotic agent; Z88.8 Allergy status to other drugs, medicaments and biological substances; Z91.048 Other nonmedicinal substance allergy status; Z90.49 Acquired absence of other specified parts of digestive tract; Z86.718 Personal history of other venous thrombosis and embolism; I25.2 Old myocardial infarction; Z86.14 Personal history of Methicillin resistant Staphylococcus aureus infection; Z86.61 Personal history of infections of the central nervous system; Z86.711 Personal history of pulmonary embolism; Z86.73 Personal history of transient ischemic attack (TIA), and cerebral infarction without residual deficits; Z87.01 Personal history of pneumonia (recurrent); Z83.3 Family history of diabetes mellitus; Z82.49 Family history of ischemic heart disease and other diseases of the circulatory system; Z83.2 Family history of diseases of the blood and blood-forming organs and certain disorders involving the immune mechanism; Z82.69 Family history of other diseases of the musculoskeletal system and connective tissue
CPT/HCPCS: 96376 ×4; 96365; 96366 ×2; 96372 ×3; 96375 ×2; 99285; 36415; 94640 ×6; 93005; 83880 ×2; 80053 ×2; 80048 ×2; 83735; 84484; 85025 ×3; 85610 ×3; 85730; 71045; 71046; G0378 ×3; J1644 ×3; J1940 ×3; J2920 ×3; J2930; J1956 ×2; J7512; J1170 ×4

== ENCOUNTER 2018-12-17 13:09 | Emergency (ER) | payer BC, OTHER ==
[2018-12-17] MEDS ORDERED: ALBUTEROL NEBULIZED 7.5 MG, SODIUM CHLORIDE 0.9% NEBULIZ 12 ML INHALATION ONE ×2 (13:43)
[2018-12-17] MEDS ORDERED: methylPREDNISolone SOD SUCCI 125 MG/2 ML VIAL IV STA (13:43)
--- NOTE | 2018-12-17 14:08 | ED ---
SOB HPI - General Chief Complaint: Shortness of Breath Stated Complaint: pneumonia Time Seen by Provider: 12/17/18 13:31 Source: patient, RN notes reviewed Mode of arrival: wheelchair Limitations: no limitations - History of Present Illness Initial Comments: This a 48-year-old female well-known emergency Department with chief complaint of shortness of breath. Patient has a history of COPD, asthma, CHF with multiple prior intubations. Patient states that she was discharged yesterday states that she was supposed to see pulmonology though they did not see her in the hospital. Patient states she called her 10 units of his today who advised to come back to emergency room she's having worsening symptoms. Patient states that she is continuing wheezing, leg swelling. Patient admits to subjective fevers. Patient was discharged with antibiotics breathing treatments and steroids. She states that this is not helping. - Related Data Home Medications Medication Instructions Recorded Confirmed lamoTRIgine [LaMICtal] 200 mg PO DAILY 03/22/16 12/17/18 Bumetanide 2 mg PO DAILY 10/18/16 12/17/18 Nystatin 100,000 Unit/gm Powd 1 applic TOPICAL BID 11/04/17 12/17/18 [Mycostatin Powder] Multivitamins, Thera [Multivitamin 1 tab PO DAILY 08/25/18 12/17/18 (formulary)] Potassium Chloride ER [K-Dur 20] 40 meq PO DAILY 08/25/18 12/17/18 FLUoxetine HCL [PROzac] 20 mg PO DAILY 08/26/18 12/17/18 Butalb/Acetaminophen/Caffeine 1 cap PO Q4H PRN 09/08/18 12/17/18 [Fioricet 50-300-40 mg Capsule] Ergocalciferol [Vitamin D2 50,000 unit PO TH 09/08/18 12/17/18 (DRISDOL)] Mirtazapine [Remeron] 45 mg PO HS 09/08/18 12/17/18 Pregabalin [Lyrica] 150 mg PO BID 09/08/18 12/17/18 Acetaminophen-Codeine 300-30mg 1 tab PO Q4-6H PRN 12/01/18 12/17/18 [Tylenol w/codeine #3] Ferrous Sulfate [Iron (65 MG 325 mg PO DAILY 12/01/18 12/17/18 Elemental)] Warfarin [Coumadin] 2 mg PO W/SUPPER 12/01/18 12/17/18 Warfarin [Coumadin] 10 mg PO W/SUPPER 12/01/18 12/17/18 Budesonide/Formoterol Fumarate 1 puff IH RT-BID 12/17/18 12/17/18 [Symbicort 160-4.5 Mcg Inhaler] predniSONE See Taper PO DIRECTED 12/17/18 12/17/18 Previous Rx's Medication Instructions Recorded Metoprolol Tartrate [Lopressor] 50 mg PO BID #60 tab 08/20/15 Cyclobenzaprine [Flexeril] 10 mg PO TID PRN #15 tab 12/01/18 Lidocaine [Lidoderm 5% Patch] 1 patch TRANSDERM DAILY #5 patch 12/01/18 Ipratropium-Albuterol Nebulize 3 ml INHALATION RT-QID #120 12/16/18 [Duoneb 0.5 mg-3 mg/3 ml Soln] ampul.neb Levofloxacin [Levaquin] 500 mg PO DAILY #5 tab 12/16/18 Allergies Allergy/AdvReac Type Severity Reaction Status Date / Time cefepime [From Maxipime] Allergy Severe Rash/Hives Verified 12/17/18 14:03 Iodinated Contrast- Oral and Allergy Severe Rash/Hives Verified 12/17/18 14:03 IV Dye ketorolac tromethamine Allergy Severe Anaphylaxis Verified 12/17/18 14:03 [From Toradol] iodine Allergy Intermediate Itching/severe Verified 12/17/18 14:03 hives adhesive Allergy Rash/Hives Verified 12/17/18 14:03 rivaroxaban [From Xarelto] Allergy Rash/Hives Verified 12/17/18 14:03 sumatriptan [From Imitrex] Allergy Anaphylaxis Verified 12/17/18 14:03 sumatriptan succinate Allergy Anaphylaxis Verified 12/17/18 14:03 [From Imitrex] tramadol Allergy Anaphylaxis Verified 12/17/18 14:03 vancomycin AdvReac Itching Verified 12/17/18 14:03 Rich wipes Allergy Severe Rash/Hives Uncoded 12/17/18 14:03 Review of Systems ROS Statement: Those systems with pertinent positive or pertinent negative responses have been documented in the HPI. ROS Other: All systems not noted in ROS Statement are negative. Past Medical History Past Medical History: Blood Disorder, Coronary Artery Disease (CAD), Heart Failure, COPD, CVA/TIA, Deep Vein Thrombosis (DVT), Fibromyalgia, Hyperlipidemia, Hypertension, Myocardial Infarction ([place]), Pneumonia, Pulmonary Embolus (PE), Thyroid Disorder Additional Past Medical History / Comment(s): Sarcoidosis,polycythemia, bilateral PE's, bilateral DVTs, degenerative disk disorder, history of a [place] and ventilator dependent respiratory failure with MRSA pneumonia, Viral meningitis in October 2014 and July 2018. Pulmonary fibrosis, home 0xygen at 3l n/c, recent pneumonia, stroke Aug 15 2018 affecting legs and right arm, neuropathy, Last Myocardial Infarction Date:: February 15, 2013 History of Any Multi-Drug Resistant Organisms: MRSA Date of last positivie culture/infection: 11/09/172018 MDRO Source:: PLEURAL FLUID, sputum Past Surgical History: Section, Cholecystectomy, Heart Catheterization, Hernia Repair, Orthopedic Surgery Additional Past Surgical History / Comment(s): Lt ankle surgery, several bronchosopies, Past Anesthesia/Blood Transfusion Reactions: Previous Problems w/ Anesthesia Additional Past Anesthesia/Blood Transfusion Reaction / Comment(s): previously charted -pt stated that last April she coded possbily due to anesthetic-during bronchoscopy procedure with Dr Hicks Past Psychological History: Anxiety Smoking Status: Current every day smoker Past Alcohol Use History: None Reported Past Drug Use History: None Reported - Past Family History Father Family Medical History: Blood Disorder, Deep Vein Thrombosis (DVT), Myocardial Infarction ([place]), Pulmonary Embolus Additional Family Medical History / Comment(s): polycythemia Mother Family Medical History: Deep Vein Thrombosis (DVT) Additional Family Medical History / Comment(s): DDD Sister(s) Family Medical History: No Reported History Brother(s) Family Medical History: No Reported History Son(s) Family Medical History: No Reported History Daughter(s) Family Medical History: No Reported History General Exam Limitations: no limitations General appearance: alert, in no apparent distress Head exam: Present: atraumatic, normocephalic, normal inspection Eye exam: Present: normal appearance, PERRL, EOMI. Absent: scleral icterus, conjunctival injection, periorbital swelling ENT exam: Present: normal exam, normal oropharynx, mucous membranes moist Neck exam: Present: normal inspection, full ROM. Absent: tenderness, meningismus, lymphadenopathy Respiratory exam: Present: respiratory distress (Moderate), wheezes, accessory muscle use, other (Patient unable to complete sentences, audible wheezing). Absent: normal lung sounds bilaterally, rales, rhonchi, stridor Cardiovascular Exam: Present: regular rate, normal rhythm, normal heart sounds. Absent: systolic murmur, diastolic murmur, rubs, gallop, clicks Extremities exam: Absent: pedal edema Neurological exam: Present: alert, oriented X3 Skin exam: Present: warm, dry, intact, normal color. Absent: rash Course Vital Signs 12/17/18 12/17/18 12/17/18 13:16 13:56 14:23 Temperature 98.8 F Pulse Rate 99 100 117 H Respiratory 20 Rate Blood Pressure 110/75 O2 Sat by Pulse 95 Oximetry Medical Decision Making - Medical Decision Making 48-year-old female presented for dyspnea. Patient's been having worsening symptoms since being discharged yesterday. Patient's fell outpatient treatment. Patient will be admitted for IV steroids and breathing treatments. - Lab Data Result diagrams: 12/17/18 13:55 12/17/18 13:55 Lab Results 12/17/18 12/17/18 12/17/18 Range/Units 13:55 13:55 13:55 WBC 10.8 H (3.8-10.6) k/uL RBC 5.48 H (3.80-5.40) m/uL Hgb 15.5 D (11.4-16.0) gm/dL Hct 46.8 H (34.0-46.0) % MCV 85.4 (80.0-100.0) fL MCH 28.4 (25.0-35.0) pg MCHC 33.2 (31.0-37.0) g/dL RDW 19.5 H (11.5-15.5) % Plt Count 288 (150-450) k/uL Neutrophils % 70 % Lymphocytes % 16 % Monocytes % 8 % Eosinophils % 3 % Basophils % 2 % Neutrophils # 7.5 (1.3-7.7) k/uL Lymphocytes # 1.8 (1.0-4.8) k/uL Monocytes # 0.8 (0-1.0) k/uL Eosinophils # 0.3 (0-0.7) k/uL Basophils # 0.2 (0-0.2) k/uL Anisocytosis Slight PT (9.0-12.0) sec INR (<1.2) APTT (22.0-30.0) sec Sodium 139 (137-145) mmol/L Potassium 4.1 (3.5-5.1) mmol/L Chloride 107 (98-107) mmol/L Carbon Dioxide 21 L (22-30) mmol/L Anion Gap 11 mmol/L BUN 18 H (7-17) mg/dL Creatinine 0.55 (0.52-1.04) mg/dL Est GFR (CKD-EPI)AfAm >90 (>60 ml/min/1.73 sqM) Est GFR (CKD-EPI)NonAf >90 (>60 ml/min/1.73 sqM) Glucose 126 H (74-99) mg/dL Calcium 9.0 (8.4-10.2) mg/dL Magnesium 1.8 (1.6-2.3) mg/dL Total Bilirubin 0.3 (0.2-1.3) mg/dL AST 49 H (14-36) U/L ALT 64 H (9-52) U/L Alkaline Phosphatase 100 (38-126) U/L Troponin I (0.000-0.034) ng/mL NT-Pro-B Natriuret Pep 1010 pg/mL Total Protein 8.0 (6.3-8.2) g/dL Albumin 4.1 (3.5-5.0) g/dL 12/17/18 12/17/18 Range/Units 13:55 13:55 WBC (3.8-10.6) k/uL RBC (3.80-5.40) m/uL Hgb (11.4-16.0) gm/dL Hct (34.0-46.0) % MCV (80.0-100.0) fL MCH (25.0-35.0) pg MCHC (31.0-37.0) g/dL RDW (11.5-15.5) % Plt Count (150-450) k/uL Neutrophils % % Lymphocytes % % Monocytes % % Eosinophils % % Basophils % % Neutrophils # (1.3-7.7) k/uL Lymphocytes # (1.0-4.8) k/uL Monocytes # (0-1.0) k/uL Eosinophils # (0-0.7) k/uL Basophils # (0-0.2) k/uL Anisocytosis PT 10.8 (9.0-12.0) sec INR 1.0 (<1.2) APTT 24.4 (22.0-30.0) sec Sodium (137-145) mmol/L Potassium (3.5-5.1) mmol/L Chloride (98-107) mmol/L Carbon Dioxide (22-30) mmol/L Anion Gap mmol/L BUN (7-17) mg/dL Creatinine (0.52-1.04) mg/dL Est GFR (CKD-EPI)AfAm (>60 ml/min/1.73 sqM) Est GFR (CKD-EPI)NonAf (>60 ml/min/1.73 sqM) Glucose (74-99) mg/dL Calcium (8.4-10.2) mg/dL Magnesium (1.6-2.3) mg/dL Total Bilirubin (0.2-1.3) mg/dL AST (14-36) U/L ALT (9-52) U/L Alkaline Phosphatase (38-126) U/L Troponin I <0.012 (0.000-0.034) ng/mL NT-Pro-B Natriuret Pep pg/mL Total Protein (6.3-8.2) g/dL Albumin (3.5-5.0) g/dL Disposition Clinical Impression: COPD exacerbation, Failure of outpatient treatment Disposition: ADMITTED IP TO THIS HOSP Condition: Fair Referrals: Liz Koch MD [Primary Care Provider] - 1-2 days
[2018-12-17 14:10] VITALS: TEMP 98.8
[2018-12-17 14:21] LABS: Anisocytosis Slight; Basophils # (A) 0.2 k/uL (0-0.2); Basophils % (A) 2 %; Eosinophils # (A) 0.3 k/uL (0-0.7); Eosinophils % (A) 3 %; HCT 46.8 % (34.0-46.0); Lymphocytes # (A) 1.8 k/uL (1.0-4.8); Lymphocytes % (A) 16 %; MCH 28.4 pg (25.0-35.0); MCHC 33.2 g/dL (31.0-37.0); MCV 85.4 fL (80.0-100.0); Mean Platelet Volume 6.8; Monocytes # (A) 0.8 k/uL (0-1.0); Monocytes % (A) 8 %; Neutrophils # (A) 7.5 k/uL (1.3-7.7); Neutrophils % (A) 70 %; Platelet Count 288 k/uL (150-450); RBC 5.48 m/uL (3.80-5.40); RDW 19.5 % (11.5-15.5); WBC 10.8 k/uL (3.8-10.6)
[2018-12-17 14:29] LABS: ALT 64 U/L (9-52); AST 49 U/L (14-36); African American GFR (CKD) >90 (>60 ml/min/1.73 sqM); Albumin 4.1 g/dL (3.5-5.0); Alkaline Phosphatase 100 U/L (38-126); Anion Gap 11 mmol/L; Blood Urea Nitrogen 18 mg/dL (7-17); Carbon Dioxide 21 mmol/L (22-30); Chloride 107 mmol/L (98-107); Glucose 126 mg/dL (74-99); Magnesium 1.8 mg/dL (1.6-2.3); Potassium 4.1 mmol/L (3.5-5.1); Sodium 139 mmol/L (137-145); Total Bilirubin 0.3 mg/dL (0.2-1.3)
[2018-12-17 14:35] LABS: Partial Thromboplastin Time 24.4 sec (22.0-30.0); Prothrombin Time 10.8 sec (9.0-12.0)
[2018-12-17 14:50] LABS: HGB 15.5 gm/dL (11.4-16.0)
--- NOTE | 2018-12-17 14:54 | XR ---
EXAMINATION TYPE: XR chest 2V DATE OF EXAM: 12/17/2018 COMPARISON: Chest x-ray [address] chest July 23, 2018. HISTORY: Difficulty breathing. TECHNIQUE: Frontal and lateral views of the chest are obtained. FINDINGS: Some improved inspiration is seen. Elevated left hemidiaphragm redemonstrated. There is chr onic parenchymal change without suspicious focal air space opacity, pleural effusion, or pneumothorax seen. The cardiac silhouette size is stable and within normal limits. The osseous structures are intact. IMPRESSION: Chronic changes without new acute pulmonary process.
[2018-12-17] MEDS ORDERED: ALBUTEROL NEBULIZED 2.5 MG/3 ML INHALATION PRN (15:23)
[2018-12-17 15:35] VITALS: BP 100/62
[2018-12-17 15:46] VITALS: PULSE 101; RESP 24
[2018-12-17] MEDS ORDERED: IPRATROPIUM-ALBUTEROL 3 ML NEB INHALATION SCH (16:00)
[2018-12-17] MEDS ORDERED: methylPREDNISolone SOD SUCCI 125 MG/2 ML VIAL IV SCH (18:00)
== END 2018-12-17 15:46 | disposition other institution (70) ==
LOC: EC 13:09
DX: J44.1 Chronic obstructive pulmonary disease with (acute) exacerbation (principal); I11.0 Hypertensive heart disease with heart failure; I50.9 Heart failure, unspecified; F17.200 Nicotine dependence, unspecified, uncomplicated; I25.10 Atherosclerotic heart disease of native coronary artery without angina pectoris; M79.7 Fibromyalgia; E78.5 Hyperlipidemia, unspecified; I25.2 Old myocardial infarction; E07.9 Disorder of thyroid, unspecified; F41.9 Anxiety disorder, unspecified; Z79.52 Long term (current) use of systemic steroids; Z79.01 Long term (current) use of anticoagulants; Z79.899 Other long term (current) drug therapy; Z88.1 Allergy status to other antibiotic agents; Z91.041 Radiographic dye allergy status; Z88.6 Allergy status to analgesic agent; Z91.048 Other nonmedicinal substance allergy status; Z88.8 Allergy status to other drugs, medicaments and biological substances; Z87.09 Personal history of other diseases of the respiratory system; Z86.14 Personal history of Methicillin resistant Staphylococcus aureus infection; Z86.718 Personal history of other venous thrombosis and embolism; Z86.73 Personal history of transient ischemic attack (TIA), and cerebral infarction without residual deficits; Z86.711 Personal history of pulmonary embolism; Z95.5 Presence of coronary angioplasty implant and graft
CPT/HCPCS: 36415; 94640; 83880; 80053; 83735; 84484; 85025; 85610; 85730; 71046; 96374; 99285; J2930

== ENCOUNTER 2019-03-19 01:08 | Emergency (ER) | payer BC, OTHER ==
[2019-03-19 01:18] VITALS: TEMP 98.2
[2019-03-19] MEDS ORDERED: SODIUM CHLORIDE 0.9% 1,000 ML IV STA (01:20)
[2019-03-19] MEDS ORDERED: HYDROmorphone 0.5 MG/0.5 ML SYRINGE IVP STA (01:20)
--- NOTE | 2019-03-19 01:24 | ED ---
General Adult HPI - General Chief complaint: Nausea/Vomiting/Diarrhea Stated complaint: NVD Time Seen by Provider: 03/19/19 01:09 Source: patient, EMS, RN notes reviewed Mode of arrival: EMS Limitations: no limitations - History of Present Illness Initial comments: 48-year-old female presenting for evaluation nausea vomiting diarrhea. Patient is competent medical history, she is oxygen dependent COPD. She's had approximately 24 hours of nausea vomiting and diarrhea. Vomiting is nonbloody nonbilious. She vomited just prior to transport by EMS. She states she has some mild crampy abdominal pain, no focal abdominal pain. She's been running low-grade fever with chills. Diarrhea is very loose and watery. No blood. No dysuria. Patient states her breathing is at baseline. No new or worsening cough. patient was given 4 mg Zofran by EMS. - Related Data Home Medications Medication Instructions Recorded Confirmed lamoTRIgine [LaMICtal] 200 mg PO DAILY 03/22/16 12/17/18 Bumetanide 2 mg PO DAILY 10/18/16 12/17/18 Nystatin 100,000 Unit/gm Powd 1 applic TOPICAL BID 11/04/17 12/17/18 [Mycostatin Powder] Multivitamins, Thera [Multivitamin 1 tab PO DAILY 08/25/18 12/17/18 (formulary)] Potassium Chloride ER [K-Dur 20] 40 meq PO DAILY 08/25/18 12/17/18 FLUoxetine HCL [PROzac] 20 mg PO DAILY 08/26/18 12/17/18 Butalb/Acetaminophen/Caffeine 1 cap PO Q4H PRN 09/08/18 12/17/18 [Fioricet 50-300-40 mg Capsule] Ergocalciferol [Vitamin D2 50,000 unit PO TH 09/08/18 12/17/18 (DRISDOL)] Mirtazapine [Remeron] 45 mg PO HS 09/08/18 12/17/18 Pregabalin [Lyrica] 150 mg PO BID 09/08/18 12/17/18 Acetaminophen-Codeine 300-30mg 1 tab PO Q4-6H PRN 12/01/18 12/17/18 [Tylenol w/codeine #3] Ferrous Sulfate [Iron (65 MG 325 mg PO DAILY 12/01/18 12/17/18 Elemental)] Warfarin [Coumadin] 2 mg PO W/SUPPER 12/01/18 12/17/18 Warfarin [Coumadin] 10 mg PO W/SUPPER 12/01/18 12/17/18 Budesonide/Formoterol Fumarate 1 puff IH RT-BID 12/17/18 12/17/18 [Symbicort 160-4.5 Mcg Inhaler] predniSONE See Taper PO DIRECTED 12/17/18 12/17/18 Previous Rx's Medication Instructions Recorded Metoprolol Tartrate [Lopressor] 50 mg PO BID #60 tab 08/20/15 Cyclobenzaprine [Flexeril] 10 mg PO TID PRN #15 tab 12/01/18 Lidocaine [Lidoderm 5% Patch] 1 patch TRANSDERM DAILY #5 patch 12/01/18 Ipratropium-Albuterol Nebulize 3 ml INHALATION RT-QID #120 12/16/18 [Duoneb 0.5 mg-3 mg/3 ml Soln] ampul.neb Levofloxacin [Levaquin] 500 mg PO DAILY #5 tab 12/16/18 Promethazine/Dextromethorphan 5 ml PO Q6HR #120 ml 12/17/18 [Phenergan DM Syrup] Allergies Allergy/AdvReac Type Severity Reaction Status Date / Time cefepime [From Maxipime] Allergy Severe Rash/Hives Verified 12/17/18 14:03 Iodinated Contrast Media Allergy Severe Rash/Hives Verified 12/17/18 14:03 ketorolac tromethamine Allergy Severe Anaphylaxis Verified 12/17/18 14:03 [From Toradol] iodine Allergy Intermediate Itching/severe Verified 12/17/18 14:03 hives adhesive Allergy Rash/Hives Verified 12/17/18 14:03 rivaroxaban [From Xarelto] Allergy Rash/Hives Verified 12/17/18 14:03 sumatriptan [From Imitrex] Allergy Anaphylaxis Verified 12/17/18 14:03 sumatriptan succinate Allergy Anaphylaxis Verified 12/17/18 14:03 [From Imitrex] tramadol Allergy Anaphylaxis Verified 12/17/18 14:03 vancomycin AdvReac Itching Verified 12/17/18 14:03 Rich wipes Allergy Severe Rash/Hives Uncoded 12/17/18 14:03 Review of Systems ROS Statement: Those systems with pertinent positive or pertinent negative responses have been documented in the HPI. ROS Other: All systems not noted in ROS Statement are negative. Past Medical History Past Medical History: Blood Disorder, Coronary Artery Disease (CAD), Heart Failure, COPD, CVA/TIA, Deep Vein Thrombosis (DVT), Fibromyalgia, Hyperlipidemia, Hypertension, Myocardial Infarction ([place]), Pneumonia, Pulmonary Embolus ([place]), Thyroid Disorder Additional Past Medical History / Comment(s): Sarcoidosis,polycythemia, bilateral PE's, bilateral DVTs, degenerative disk disorder, history of a [place] and ventilator dependent respiratory failure with MRSA pneumonia, Viral meningitis in October 2014 and July 2018. Pulmonary fibrosis, home 0xygen at 3l n/c, recent pneumonia, stroke Aug 15 2018 affecting legs and right arm, neuropathy, Last Myocardial Infarction Date:: February 15, 2013 History of Any Multi-Drug Resistant Organisms: MRSA Date of last positivie culture/infection: 11/09/172018 MDRO Source:: PLEURAL FLUID, sputum Past Surgical History: Section, Cholecystectomy, Heart Catheterization, Hernia Repair, Orthopedic Surgery Additional Past Surgical History / Comment(s): Lt ankle surgery, several bronchosopies, Past Anesthesia/Blood Transfusion Reactions: Previous Problems w/ Anesthesia Additional Past Anesthesia/Blood Transfusion Reaction / Comment(s): previously charted -pt stated that last April she coded possbily due to anesthetic-during bronchoscopy procedure with Dr Hicks Past Psychological History: Anxiety Smoking Status: Current every day smoker Past Alcohol Use History: None Reported Past Drug Use History: None Reported - Past Family History Father Family Medical History: Blood Disorder, Deep Vein Thrombosis (DVT), Myocardial Infarction ([place]), Pulmonary Embolus Additional Family Medical History / Comment(s): polycythemia Mother Family Medical History: Deep Vein Thrombosis (DVT) Additional Family Medical History / Comment(s): DDD Sister(s) Family Medical History: No Reported History Brother(s) Family Medical History: No Reported History Son(s) Family Medical History: No Reported History Daughter(s) Family Medical History: No Reported History General Exam Limitations: no limitations General appearance: alert, in no apparent distress Head exam: Present: atraumatic, normocephalic Eye exam: Present: normal appearance, PERRL ENT exam: Present: mucous membranes dry Neck exam: Present: normal inspection. Absent: tenderness, meningismus Respiratory exam: Present: decreased breath sounds. Absent: respiratory distress, wheezes Cardiovascular Exam: Present: regular rate, normal rhythm GI/Abdominal exam: Present: soft. Absent: distended, tenderness, guarding, rebound Extremities exam: Present: normal inspection, normal capillary refill Neurological exam: Present: alert Skin exam: Present: warm, dry, intact. Absent: cyanosis, diaphoretic Course Vital Signs 03/19/19 01:09 Temperature 98.2 F Pulse Rate 109 H Respiratory 22 Rate Blood Pressure 103/67 O2 Sat by Pulse 97 Oximetry Medical Decision Making - Medical Decision Making 48-year-old female presenting with nausea vomiting and diarrhea. Patient received Zofran by EMS prior to arrival. She's given Conrad for generalized crampy abdominal pain. Her abdominal exam is soft, no focal tenderness. No rebound or guarding. She's given IV hydration. She has a normal CBC, CMP reveals low bicarb likely secondary to diarrhea, urinalysis shows trace ketones, no significant infection. She has stool sample which is negative for C. diff. On reevaluation she is feeling better, pain improved. No episodes of vomiting while in the emergency department. She is tolerating ice chips. She can be discharged home at this time with outpatient follow-up. - Lab Data Result diagrams: 03/19/19 01:28 03/19/19 01:28 Lab Results 03/19/19 03/19/19 03/19/19 Range/Units 01:28 01:28 02:04 WBC 7.3 (3.8-10.6) k/uL RBC 4.69 (3.80-5.40) m/uL Hgb 14.9 (11.4-16.0) gm/dL Hct 44.1 (34.0-46.0) % MCV 93.9 (80.0-100.0) fL MCH 31.7 (25.0-35.0) pg MCHC 33.8 (31.0-37.0) g/dL RDW 15.1 (11.5-15.5) % Plt Count 175 (150-450) k/uL Neutrophils % 86 % Lymphocytes % 7 % Monocytes % 4 % Eosinophils % 1 % Basophils % 1 % Neutrophils # 6.3 (1.3-7.7) k/uL Lymphocytes # 0.5 L (1.0-4.8) k/uL Monocytes # 0.3 (0-1.0) k/uL Eosinophils # 0.1 (0-0.7) k/uL Basophils # 0.0 (0-0.2) k/uL Sodium 139 (137-145) mmol/L Potassium 3.4 L (3.5-5.1) mmol/L Chloride 113 H (98-107) mmol/L Carbon Dioxide 16 L (22-30) mmol/L Anion Gap 10 mmol/L BUN 7 (7-17) mg/dL Creatinine 0.66 (0.52-1.04) mg/dL Est GFR (CKD-EPI)AfAm >90 (>60 ml/min/1.73 sqM) Est GFR (CKD-EPI)NonAf >90 (>60 ml/min/1.73 sqM) Glucose 126 H (74-99) mg/dL Calcium 8.8 (8.4-10.2) mg/dL Total Bilirubin 0.5 (0.2-1.3) mg/dL AST 48 H (14-36) U/L ALT 38 H (4-34) U/L Alkaline Phosphatase 111 (38-126) U/L Total Protein 7.0 (6.3-8.2) g/dL Albumin 3.5 (3.5-5.0) g/dL Lipase 92 (23-300) U/L Urine Color Urine Appearance (Clear) Urine pH (5.0-8.0) Ur Specific [place] (1.001-1.035) Urine Protein (Negative) Urine Glucose (UA) (Negative) Urine Ketones (Negative) Urine Blood (Negative) Urine Nitrite (Negative) Urine Bilirubin (Negative) Urine Urobilinogen (<2.0) mg/dL Ur Leukocyte Esterase (Negative) Urine RBC (0-5) /hpf Urine WBC (0-5) /hpf Ur Squamous Epith Cells (0-4) /hpf Urine Bacteria (None) /hpf Hyaline Casts (0-2) /lpf Urine Mucus (None) /hpf C. difficile (EIA) Intrp Negative (Negative) 03/19/19 Range/Units 02:07 WBC (3.8-10.6) k/uL RBC (3.80-5.40) m/uL Hgb (11.4-16.0) gm/dL Hct (34.0-46.0) % MCV (80.0-100.0) fL MCH (25.0-35.0) pg MCHC (31.0-37.0) g/dL RDW (11.5-15.5) % Plt Count (150-450) k/uL Neutrophils % % Lymphocytes % % Monocytes % % Eosinophils % % Basophils % % Neutrophils # (1.3-7.7) k/uL Lymphocytes # (1.0-4.8) k/uL Monocytes # (0-1.0) k/uL Eosinophils # (0-0.7) k/uL Basophils # (0-0.2) k/uL Sodium (137-145) mmol/L Potassium (3.5-5.1) mmol/L Chloride (98-107) mmol/L Carbon Dioxide (22-30) mmol/L Anion Gap mmol/L BUN (7-17) mg/dL Creatinine (0.52-1.04) mg/dL Est GFR (CKD-EPI)AfAm (>60 ml/min/1.73 sqM) Est GFR (CKD-EPI)NonAf (>60 ml/min/1.73 sqM) Glucose (74-99) mg/dL Calcium (8.4-10.2) mg/dL Total Bilirubin (0.2-1.3) mg/dL AST (14-36) U/L ALT (4-34) U/L Alkaline Phosphatase (38-126) U/L Total Protein (6.3-8.2) g/dL Albumin (3.5-5.0) g/dL Lipase (23-300) U/L Urine Color Yellow Urine Appearance Clear (Clear) Urine pH 6.5 (5.0-8.0) Ur Specific [place] 1.027 (1.001-1.035) Urine Protein 1+ H (Negative) Urine Glucose (UA) Negative (Negative) Urine Ketones Trace H (Negative) Urine Blood Negative (Negative) Urine Nitrite Negative (Negative) Urine Bilirubin Negative (Negative) Urine Urobilinogen <2.0 (<2.0) mg/dL Ur Leukocyte Esterase Trace H (Negative) Urine RBC 2 (0-5) /hpf Urine WBC 2 (0-5) /hpf Ur Squamous Epith Cells 5 H (0-4) /hpf Urine Bacteria Rare H (None) /hpf Hyaline Casts 1 (0-2) /lpf Urine Mucus Rare H (None) /hpf C. difficile (EIA) Intrp (Negative) Disposition Clinical Impression: Dehydration, Nausea vomiting and diarrhea Disposition: HOME SELF-CARE Condition: Fair Instructions (If sedation given, give patient instructions): Acute Nausea and Vomiting (ED), Acute Diarrhea (ED) Is patient prescribed a controlled substance at d/c from ED?: No Referrals: Liz Koch MD [Primary Care Provider] - 1-2 days Time of Disposition: 03:36
[2019-03-19 01:42] LABS: Basophils % (A) 1 %; Eosinophils # (A) 0.1 k/uL (0-0.7); Eosinophils % (A) 1 %; HCT 44.1 % (34.0-46.0); HGB 14.9 gm/dL (11.4-16.0); Lymphocytes # (A) 0.5 k/uL (1.0-4.8); Lymphocytes % (A) 7 %; MCH 31.7 pg (25.0-35.0); MCHC 33.8 g/dL (31.0-37.0); MCV 93.9 fL (80.0-100.0); Mean Platelet Volume 7.6; Monocytes # (A) 0.3 k/uL (0-1.0); Monocytes % (A) 4 %; Neutrophils # (A) 6.3 k/uL (1.3-7.7); Neutrophils % (A) 86 %; Platelet Count 175 k/uL (150-450); RBC 4.69 m/uL (3.80-5.40); RDW 15.1 % (11.5-15.5); WBC 7.3 k/uL (3.8-10.6)
[2019-03-19 01:49] LABS: ALT 38 U/L (4-34); AST 48 U/L (14-36); African American GFR (CKD) >90 (>60 ml/min/1.73 sqM); Albumin 3.5 g/dL (3.5-5.0); Alkaline Phosphatase 111 U/L (38-126); Anion Gap 10 mmol/L; Blood Urea Nitrogen 7 mg/dL (7-17); Calcium 8.8 mg/dL (8.4-10.2); Carbon Dioxide 16 mmol/L (22-30); Chloride 113 mmol/L (98-107); Glucose 126 mg/dL (74-99); Non-African American GFR(CKD) >90 (>60 ml/min/1.73 sqM); Potassium 3.4 mmol/L (3.5-5.1); Sodium 139 mmol/L (137-145); Total Bilirubin 0.5 mg/dL (0.2-1.3)
[2019-03-19 02:17] LABS: Appearance,Urine Clear (Clear); Bacteria,Urine Rare /hpf; Bilirubin,Urine Negative (Negative); Blood,Urine Negative (Negative); Color,Urine Yellow; Glucose,Urine (UA) Negative (Negative); Hyaline Casts,Urine 1 /lpf (0-2); Ketones,Urine Trace (Negative); Leukocyte Esterase,Urine Trace (Negative); Mucus,Urine Rare /hpf; Nitrite,Urine Negative (Negative); PH, Urine 6.5 (5.0-8.0); Protein,Urine 1+ (Negative); RBC,Urine 2 /hpf (0-5); Specific Gravity,Urine 1.027 (1.001-1.035); Squamous Epithelial Cell,Urine 5 /hpf (0-4); Urobilinogen,Urine <2.0 mg/dL (<2.0); WBC,Urine 2 /hpf (0-5)
[2019-03-19] MEDS ORDERED: HYDROmorphone 1 MG/ML 1 ML SYRINGE IM STA (03:08)
[2019-03-19 04:07] VITALS: BP 115/67; PULSE 73; RESP 18
== END 2019-03-19 04:00 | disposition home or self-care (01) ==
LOC: EC 01:08
DX: E86.0 Dehydration (principal); R11.2 Nausea with vomiting, unspecified; R19.7 Diarrhea, unspecified; R82.4 Acetonuria; R10.84 Generalized abdominal pain; R50.9 Fever, unspecified; I25.10 Atherosclerotic heart disease of native coronary artery without angina pectoris; I11.0 Hypertensive heart disease with heart failure; I50.9 Heart failure, unspecified; J44.9 Chronic obstructive pulmonary disease, unspecified; I25.2 Old myocardial infarction; M79.7 Fibromyalgia; G62.9 Polyneuropathy, unspecified; F41.9 Anxiety disorder, unspecified; F17.200 Nicotine dependence, unspecified, uncomplicated; Z88.1 Allergy status to other antibiotic agents; Z88.5 Allergy status to narcotic agent; Z88.6 Allergy status to analgesic agent; Z88.8 Allergy status to other drugs, medicaments and biological substances; Z91.048 Other nonmedicinal substance allergy status; Z79.01 Long term (current) use of anticoagulants; Z79.52 Long term (current) use of systemic steroids; Z79.899 Other long term (current) drug therapy; Z86.14 Personal history of Methicillin resistant Staphylococcus aureus infection; Z86.711 Personal history of pulmonary embolism; Z86.718 Personal history of other venous thrombosis and embolism; Z86.73 Personal history of transient ischemic attack (TIA), and cerebral infarction without residual deficits; Z99.81 Dependence on supplemental oxygen; Z90.49 Acquired absence of other specified parts of digestive tract
CPT/HCPCS: 36415; 80053; 83690; 85025; 81001; 87324; 99284; 96374; 96376; 96361; J1170 ×2

== ENCOUNTER 2019-03-23 12:36 | Inpatient (IN) | payer BC, OTHER ==
[2019-03-23] MEDS ORDERED: MORPHINE SULFATE 2 MG/ML SYRINGE IVP STA (12:38)
[2019-03-23] MEDS ORDERED: SODIUM CHLORIDE 0.9% 1,000 ML IV STA (12:38)
[2019-03-23] MEDS ORDERED: LORazepam 2 MG/ML INJ IV STA (12:38)
[2019-03-23 13:08] LABS: Basophils # (A) 0.1 k/uL (0-0.2); Basophils % (A) 1 %; Eosinophils # (A) 0.1 k/uL (0-0.7); Eosinophils % (A) 1 %; HCT 44.4 % (34.0-46.0); HGB 15.2 gm/dL (11.4-16.0); Lymphocytes # (A) 1.2 k/uL (1.0-4.8); Lymphocytes % (A) 9 %; MCH 32.1 pg (25.0-35.0); MCHC 34.3 g/dL (31.0-37.0); MCV 93.7 fL (80.0-100.0); Mean Platelet Volume 7.7; Monocytes # (A) 0.9 k/uL (0-1.0); Monocytes % (A) 7 %; Neutrophils % (A) 81 %; Platelet Count 253 k/uL (150-450); RBC 4.73 m/uL (3.80-5.40); RDW 14.6 % (11.5-15.5); WBC 13.6 k/uL (3.8-10.6)
[2019-03-23 13:15] LABS: Partial Thromboplastin Time 28.3 sec (22.0-30.0); Prothrombin Time 10.8 sec (9.0-12.0)
[2019-03-23 13:16] LABS: ALT 20 U/L (4-34); AST 34 U/L (14-36); African American GFR (CKD) >90 (>60 ml/min/1.73 sqM); Albumin 3.5 g/dL (3.5-5.0); Alkaline Phosphatase 118 U/L (38-126); Anion Gap 10 mmol/L; Blood Urea Nitrogen 8 mg/dL (7-17); Calcium 8.8 mg/dL (8.4-10.2); Carbon Dioxide 25 mmol/L (22-30); Chloride 104 mmol/L (98-107); Creatine Kinase 31 U/L (30-135); Glucose 155 mg/dL (74-99); Non-African American GFR(CKD) >90 (>60 ml/min/1.73 sqM); Potassium 3.5 mmol/L (3.5-5.1); Sodium 139 mmol/L (137-145); Total Bilirubin 0.8 mg/dL (0.2-1.3); Total Protein 7.1 g/dL (6.3-8.2)
--- NOTE | 2019-03-23 13:16 | XR ---
EXAMINATION TYPE: XR chest 1V portable DATE OF EXAM: 03/23/2019 HISTORY: sob. REFERENCE: Previous study dated 12/17/2018. FINDINGS: The heart is mildly enlarged. There is vascular congestion and pulmonary edema. I could not exclude tiny bilateral pleural effusions. IMPRESSION: CHANGES CONSISTENT WITH CONGESTIVE HEART FAILURE.
--- NOTE | 2019-03-23 13:22 | ED ---
SOB HPI - General Chief Complaint: Shortness of Breath Stated Complaint: OLY Time Seen by Provider: 03/23/19 12:38 Source: patient, EMS, RN notes reviewed, old records reviewed Mode of arrival: EMS Limitations: no limitations - History of Present Illness Initial Comments: this is a 48-year-old female severe distress from shortness of breath presented by EMS after breath. Patient Formerly [facility] facility for heart disease and lung disease. Patient denying recent fevers but increased cough productive difference rhythm unable to catch her breath. Patient states she has very bad lungs and they're continuing to worsen. Per EMS patient's oxygen was in the 60s on arrival in the house is improved and low 90s here in the ER on BiPAP. Patient will be continued on BiPAP history was obtained from EMS the patient's prior charting MD Complaint: shortness of breath, cough, chest pain, anxiety -: days(s) Severity: severe Severity scale (1-10): 10 Quality: dull, throbbing Improves With: oxygen, bronchodilators, medication Worsens With: exertion Known History Of: COPD, congestive heart failure Context: recent URI Associated Symptoms: chest pain, pain with inspiration, cough, sputum production, orthopnea Treatments Prior to Arrival: none - Related Data Home Medications Medication Instructions Recorded Confirmed lamoTRIgine [LaMICtal] 200 mg PO DAILY 03/22/16 12/17/18 Bumetanide 2 mg PO DAILY 10/18/16 12/17/18 Nystatin 100,000 Unit/gm Powd 1 applic TOPICAL BID 11/04/17 12/17/18 [Mycostatin Powder] Multivitamins, Thera [Multivitamin 1 tab PO DAILY 08/25/18 12/17/18 (formulary)] Potassium Chloride ER [K-Dur 20] 40 meq PO DAILY 08/25/18 12/17/18 FLUoxetine HCL [PROzac] 20 mg PO DAILY 08/26/18 12/17/18 Butalb/Acetaminophen/Caffeine 1 cap PO Q4H PRN 09/08/18 12/17/18 [Fioricet 50-300-40 mg Capsule] Ergocalciferol [Vitamin D2 50,000 unit PO TH 09/08/18 12/17/18 (DRISDOL)] Mirtazapine [Remeron] 45 mg PO HS 09/08/18 12/17/18 Pregabalin [Lyrica] 150 mg PO BID 09/08/18 12/17/18 Acetaminophen-Codeine 300-30mg 1 tab PO Q4-6H PRN 12/01/18 12/17/18 [Tylenol w/codeine #3] Ferrous Sulfate [Iron (65 MG 325 mg PO DAILY 12/01/18 12/17/18 Elemental)] Warfarin [Coumadin] 2 mg PO W/SUPPER 12/01/18 12/17/18 Warfarin [Coumadin] 10 mg PO W/SUPPER 12/01/18 12/17/18 Budesonide/Formoterol Fumarate 1 puff IH RT-BID 12/17/18 12/17/18 [Symbicort 160-4.5 Mcg Inhaler] predniSONE See Taper PO DIRECTED 12/17/18 12/17/18 Previous Rx's Medication Instructions Recorded Metoprolol Tartrate [Lopressor] 50 mg PO BID #60 tab 08/20/15 Cyclobenzaprine [Flexeril] 10 mg PO TID PRN #15 tab 12/01/18 Lidocaine [Lidoderm 5% Patch] 1 patch TRANSDERM DAILY #5 patch 12/01/18 Ipratropium-Albuterol Nebulize 3 ml INHALATION RT-QID #120 12/16/18 [Duoneb 0.5 mg-3 mg/3 ml Soln] ampul.neb Levofloxacin [Levaquin] 500 mg PO DAILY #5 tab 12/16/18 Promethazine/Dextromethorphan 5 ml PO Q6HR #120 ml 12/17/18 [Phenergan DM Syrup] Allergies Allergy/AdvReac Type Severity Reaction Status Date / Time cefepime [From Maxipime] Allergy Severe Rash/Hives Verified 12/17/18 14:03 Iodinated Contrast Media Allergy Severe Rash/Hives Verified 12/17/18 14:03 ketorolac tromethamine Allergy Severe Anaphylaxis Verified 12/17/18 14:03 [From Toradol] iodine Allergy Intermediate Itching/severe Verified 12/17/18 14:03 hives adhesive Allergy Rash/Hives Verified 12/17/18 14:03 rivaroxaban [From Xarelto] Allergy Rash/Hives Verified 12/17/18 14:03 sumatriptan [From Imitrex] Allergy Anaphylaxis Verified 12/17/18 14:03 sumatriptan succinate Allergy Anaphylaxis Verified 12/17/18 14:03 [From Imitrex] tramadol Allergy Anaphylaxis Verified 12/17/18 14:03 vancomycin AdvReac Itching Verified 12/17/18 14:03 Rich wipes Allergy Severe Rash/Hives Uncoded 12/17/18 14:03 Review of Systems ROS Statement: Those systems with pertinent positive or pertinent negative responses have been documented in the HPI. ROS Other: All systems not noted in ROS Statement are negative. Past Medical History Past Medical History: Blood Disorder, Coronary Artery Disease (CAD), Heart Failure, COPD, CVA/TIA, Deep Vein Thrombosis (DVT), Fibromyalgia, Hyperlipidemia, Hypertension, Myocardial Infarction (MD), Pneumonia, Pulmonary Embolus (PE), Thyroid Disorder Additional Past Medical History / Comment(s): Sarcoidosis,polycythemia, bilateral PE's, bilateral DVTs, degenerative disk disorder, history of a MD and ventilator dependent respiratory failure with MRSA pneumonia, Viral meningitis in October 2014 and July 2018. Pulmonary fibrosis, home 0xygen at 3l n/c, recent pneumonia, stroke Aug 15 2018 affecting legs and right arm, neuropathy, Last Myocardial Infarction Date:: February 15, 2013 History of Any Multi-Drug Resistant Organisms: MRSA Date of last positivie culture/infection: 11/09/172018 MDRO Source:: PLEURAL FLUID, sputum Past Surgical History: Section, Cholecystectomy, Heart Catheterization, Hernia Repair, Orthopedic Surgery Additional Past Surgical History / Comment(s): Lt ankle surgery, several bronchosopies, Past Anesthesia/Blood Transfusion Reactions: Previous Problems w/ Anesthesia Additional Past Anesthesia/Blood Transfusion Reaction / Comment(s): previously charted -pt stated that last April she coded possbily due to anesthetic-during bronchoscopy procedure with Dr Hicks Past Psychological History: Anxiety Smoking Status: Current every day smoker Past Alcohol Use History: None Reported Past Drug Use History: None Reported - Past Family History Father Family Medical History: Blood Disorder, Deep Vein Thrombosis (DVT), Myocardial Infarction (MD), Pulmonary Embolus Additional Family Medical History / Comment(s): polycythemia Mother Family Medical History: Deep Vein Thrombosis (DVT) Additional Family Medical History / Comment(s): DDD Sister(s) Family Medical History: No Reported History Brother(s) Family Medical History: No Reported History Son(s) Family Medical History: No Reported History Daughter(s) Family Medical History: No Reported History General Exam Limitations: no limitations General appearance: alert, in no apparent distress Head exam: Present: atraumatic, normocephalic, normal inspection Eye exam: Present: normal appearance, PERRL, EOMI. Absent: scleral icterus, conjunctival injection, periorbital swelling ENT exam: Present: normal exam, mucous membranes moist Neck exam: Present: normal inspection. Absent: tenderness, meningismus, lymphadenopathy Respiratory exam: Present: respiratory distress, wheezes, rhonchi, accessory muscle use, decreased breath sounds, prolonged expiratory. Absent: rales, stridor Cardiovascular Exam: Present: normal rhythm, tachycardia, normal heart sounds. Absent: systolic murmur, diastolic murmur, rubs, gallop, clicks GI/Abdominal exam: Present: soft, normal bowel sounds. Absent: distended, tenderness, guarding, rebound, rigid Extremities exam: Present: normal inspection, full ROM, normal capillary refill. Absent: tenderness, pedal edema, joint swelling, calf tenderness Back exam: Present: normal inspection Neurological exam: Present: alert, oriented X3, CN II-XII intact Psychiatric exam: Present: normal affect, normal mood Skin exam: Present: warm, dry, intact, normal color. Absent: rash Course Vital Signs 03/23/19 03/23/19 03/23/19 12:43 13:15 14:50 Temperature 98.8 F Pulse Rate 109 H 111 H 108 H Respiratory 35 H 16 22 Rate Blood Pressure 144/76 144/76 131/76 O2 Sat by Pulse 94 L 89 L 88 L Oximetry - Reevaluation(s) Reevaluation #1: 03/23/19 15:35 medical records reviewed Reevaluation #2: 03/23/19 15:35 Linsey on BiPAP with pain control - Consultations Consultation #1: spoke with Dr. Blakely who was agreeable for admission Medical Decision Making - Medical Decision Making 48 femalepresented today for evaluation of severe shortness of breath patient be admitted for treatment of CHF and COPD with hypoxia. - Lab Data Result diagrams: 03/23/19 12:50 03/23/19 12:50 Lab Results 03/23/19 03/23/19 03/23/19 Range/Units 12:50 12:50 12:50 WBC 13.6 H (3.8-10.6) k/uL RBC 4.73 (3.80-5.40) m/uL Hgb 15.2 (11.4-16.0) gm/dL Hct 44.4 (34.0-46.0) % MCV 93.7 (80.0-100.0) fL MCH 32.1 (25.0-35.0) pg MCHC 34.3 (31.0-37.0) g/dL RDW 14.6 (11.5-15.5) % Plt Count 253 (150-450) k/uL Neutrophils % 81 % Lymphocytes % 9 % Monocytes % 7 % Eosinophils % 1 % Basophils % 1 % Neutrophils # 11.0 H (1.3-7.7) k/uL Lymphocytes # 1.2 (1.0-4.8) k/uL Monocytes # 0.9 (0-1.0) k/uL Eosinophils # 0.1 (0-0.7) k/uL Basophils # 0.1 (0-0.2) k/uL PT (9.0-12.0) sec INR (<1.2) APTT (22.0-30.0) sec Sodium 139 (137-145) mmol/L Potassium 3.5 (3.5-5.1) mmol/L Chloride 104 (98-107) mmol/L Carbon Dioxide 25 (22-30) mmol/L Anion Gap 10 mmol/L BUN 8 (7-17) mg/dL Creatinine 0.42 L (0.52-1.04) mg/dL Est GFR (CKD-EPI)AfAm >90 (>60 ml/min/1.73 sqM) Est GFR (CKD-EPI)NonAf >90 (>60 ml/min/1.73 sqM) Glucose 155 H (74-99) mg/dL Calcium 8.8 (8.4-10.2) mg/dL Magnesium 2.0 (1.6-2.3) mg/dL Total Bilirubin 0.8 (0.2-1.3) mg/dL AST 34 (14-36) U/L ALT 20 (4-34) U/L Alkaline Phosphatase 118 (38-126) U/L Creatine Kinase 31 (30-135) U/L Troponin I (0.000-0.034) ng/mL NT-Pro-B Natriuret Pep 2610 pg/mL Total Protein 7.1 (6.3-8.2) g/dL Albumin 3.5 (3.5-5.0) g/dL 03/23/19 03/23/19 Range/Units 12:50 12:50 WBC (3.8-10.6) k/uL RBC (3.80-5.40) m/uL Hgb (11.4-16.0) gm/dL Hct (34.0-46.0) % MCV (80.0-100.0) fL MCH (25.0-35.0) pg MCHC (31.0-37.0) g/dL RDW (11.5-15.5) % Plt Count (150-450) k/uL Neutrophils % % Lymphocytes % % Monocytes % % Eosinophils % % Basophils % % Neutrophils # (1.3-7.7) k/uL Lymphocytes # (1.0-4.8) k/uL Monocytes # (0-1.0) k/uL Eosinophils # (0-0.7) k/uL Basophils # (0-0.2) k/uL PT 10.8 (9.0-12.0) sec INR 1.0 (<1.2) APTT 28.3 (22.0-30.0) sec Sodium (137-145) mmol/L Potassium (3.5-5.1) mmol/L Chloride (98-107) mmol/L Carbon Dioxide (22-30) mmol/L Anion Gap mmol/L BUN (7-17) mg/dL Creatinine (0.52-1.04) mg/dL Est GFR (CKD-EPI)AfAm (>60 ml/min/1.73 sqM) Est GFR (CKD-EPI)NonAf (>60 ml/min/1.73 sqM) Glucose (74-99) mg/dL Calcium (8.4-10.2) mg/dL Magnesium (1.6-2.3) mg/dL Total Bilirubin (0.2-1.3) mg/dL AST (14-36) U/L ALT (4-34) U/L Alkaline Phosphatase (38-126) U/L Creatine Kinase (30-135) U/L Troponin I 0.024 (0.000-0.034) ng/mL NT-Pro-B Natriuret Pep pg/mL Total Protein (6.3-8.2) g/dL Albumin (3.5-5.0) g/dL - EKG Data -: EKG Interpreted by Me (EKG shows sinus tachycardiarate of 109 VT 146, QRS 68, QTC 535) - Radiology Data Radiology results: report reviewed (CXRs positive for CHF), image reviewed Critical Care Time Critical Care Time: Yes Total Critical Care Time: 31 Disposition Clinical Impression: COPD (chronic obstructive pulmonary disease), Acute exacerbation of chronic bronchitis, Acute exacerbation of chronic low back pain, Dehydration, COPD exacerbation, Dyspnea, Hypoxia Disposition: ADMITTED IP TO THIS HOSP Condition: Fair Is patient prescribed a controlled substance at d/c from ED?: No Referrals: Liz Koch MD [Primary Care Provider] - 1-2 days
[2019-03-23] MEDS ORDERED: HYDROmorphone 0.5 MG/0.5 ML SYRINGE IVP STA (13:42)
[2019-03-23] MEDS ORDERED: HYDROmorphone 1 MG/ML 1 ML SYRINGE IVP STA ×2 (13:43→15:58)
[2019-03-23] MEDS ORDERED: ONDANSETRON 4 MG/2 ML VIAL IVP STA (15:20)
[2019-03-23] MEDS ORDERED: methylPREDNISolone SOD SUCCI 125 MG/2 ML VIAL IV STA (15:31)
[2019-03-23] MEDS ORDERED: IPRATROPIUM-ALBUTEROL 3 ML NEB INHALATION PRN (15:31)
[2019-03-23] MEDS: ALBUTEROL NEBULIZED 2.5 MG/3 ML INHALATION SCH ×2 (15:39→20:06)
[2019-03-23] MEDS ORDERED: diphenhydrAMINE 50 MG/ML 1 ML VIAL IVP STA (15:58)
[2019-03-23] MEDS: FUROSEMIDE 10 MG/ML 4 ML VIAL IV SCH ×2 (16:13→22:38)
[2019-03-23 16:52] LABS: Glucose,Whole Blood 179 mg/dL (75-99)
[2019-03-23] MEDS: LORazepam 2 MG/ML INJ IV PRN (17:12)
[2019-03-23] MEDS ORDERED: DIPHENOX-ATROP 2.5-0.025 MG 1 EACH TAB PO PRN (17:33)
[2019-03-23] MEDS ORDERED: BUTALB/APAP/CAFF 50-325-40MG TAB PO PRN (17:33)
[2019-03-23] MEDS ORDERED: WARFARIN 3 MG TAB PO ONE (19:00)
[2019-03-23 19:58] LABS: Glucose,Whole Blood 206 mg/dL (75-99)
[2019-03-23] MEDS: SYMBICORT 160-4.5 MCG INHALER INHALATION SCH (20:06)
[2019-03-23] MEDS: HYDROmorphone 1 MG/ML 1 ML SYRINGE IVP PRN (20:37)
[2019-03-23] MEDS: PREGABALIN 75 MG CAP PO SCH (20:39)
[2019-03-23] MEDS: METOPROLOL TARTRATE 50 MG TAB PO SCH (20:39)
[2019-03-23] MEDS: MIRTAZAPINE 45 MG TABLET PO SCH (22:37)
[2019-03-23] MEDS: BACLOFEN 10 MG TAB PO SCH (22:37)
[2019-03-23] MEDS: methylPREDNISolone SOD SUCCI 125 MG/2 ML VIAL IV SCH (22:39)
[2019-03-23] MEDS: DICLOFENAC SODIUM 50 MG PO SCH (22:42)
[2019-03-24] MEDS: HYDROmorphone 1 MG/ML 1 ML SYRINGE IVP PRN ×3 (00:24→08:48)
[2019-03-24] MEDS: methylPREDNISolone SOD SUCCI 125 MG/2 ML VIAL IV SCH ×5 (03:40→23:54)
[2019-03-24 06:24] LABS: Glucose,Whole Blood 261 mg/dL (75-99)
[2019-03-24] MEDS: SYMBICORT 160-4.5 MCG INHALER INHALATION SCH (07:31)
[2019-03-24] MEDS: ALBUTEROL NEBULIZED 2.5 MG/3 ML INHALATION SCH ×2 (07:31→12:04)
[2019-03-24] MEDS: LORazepam 2 MG/ML INJ IV PRN ×3 (08:05→20:26)
[2019-03-24] MEDS: BACLOFEN 10 MG TAB PO SCH ×3 (08:07→22:00)
[2019-03-24] MEDS: FUROSEMIDE 10 MG/ML 4 ML VIAL IV SCH (08:07)
[2019-03-24] MEDS: METOPROLOL TARTRATE 50 MG TAB PO SCH ×2 (08:08→22:00)
[2019-03-24] MEDS: PREGABALIN 75 MG CAP PO SCH ×2 (08:08→22:00)
[2019-03-24] MEDS: DICLOFENAC SODIUM 50 MG PO SCH ×2 (08:21→21:44)
[2019-03-24 08:26] LABS: Glucose,Whole Blood 154 mg/dL (75-99)
[2019-03-24] MEDS: INSULIN ASPART (NovoLOG) 100 UNIT/ML VIAL SQ SCH ×4 (08:43→20:46)
[2019-03-24] MEDS ORDERED: ENOXAPARIN 40 MG/0.4 ML SYRINGE SQ SCH (09:00)
[2019-03-24] MEDS ORDERED: AZITHROMYCIN 500 MG TAB PO SCH (09:00)
[2019-03-24 10:05] LABS: INR 1.2 (<1.2); Prothrombin Time 12.2 sec (9.0-12.0)
[2019-03-24] MEDS: ONDANSETRON 4 MG/2 ML VIAL IVP PRN (10:43)
--- NOTE | 2019-03-24 10:50 | XR ---
EXAMINATION TYPE: XR chest 1V portable DATE OF EXAM: 03/24/2019 Comparison: 03/23/2019 Clinical History: 48-year-old female shortness of breath Findings: Diffuse interstitial changes and opacities persist. Heart upper limits of normal in size. Impression: Extensive diffuse interstitial opacities persist.
[2019-03-24] MEDS: PIPERACILLIN-TAZOBACTAM 3.375 GM in SODIUM CHLORIDE 0.9% 100 ML IVPB SCH ×3 (10:56→23:55)
[2019-03-24 11:07] VITALS: BMI 18.6
[2019-03-24] MEDS ORDERED: Acetaminophen-Codeine 300-30mg TAB PO PRN (12:19)
[2019-03-24] MEDS ORDERED: LIDOCAINE 4% CREAM 5 GM TUBE TOPICAL PRN (12:19)
[2019-03-24 12:24] LABS: Glucose,Whole Blood 137 mg/dL (75-99)
--- NOTE | 2019-03-24 12:33 | P.HPIM ---
History of Present Illness this is a pleasant 48 years old femalewith past medical history of COPD, congestive heart failure on Bumex at home, DVT, hyperlipidemia, coronary artery disease, hypertension, pulmonary embolism on anticoagulation,chronic respiratory failure on 6 L oxygen at home, hysterectomy, hypothyroidism, polycythemia, fibromyalgia, bipolar disorder. Recurrent/chronic right sided chest pain, pseudomonas pulmonary infection. Presents because of worsening dyspneawith cough and yellowish phlegm for 2 weeks duration associated with nausea vomiting and loose bowel movements on admission patient has fever of 100.3. She was hypoxic with saturating 88- 89on FiO2 of 90%. Labs showing leukocytosis of 13.6 K. BMP, liver enzymes and troponin were unremarkable. ProBNP is 2016.chest x-ray: Diffuse interstitial opacities area EKG shows sinus tachycardia at 109. patient received several pain medications including morphine and Dilaudid, she received normal saline IV fluid and was started on Solu-Medrol 60 mg. also patient was started on Lasix 40 mg every 8 hours, we'll lower the dose to 40 mg daily MAPS were checked and patient currently on Tylenol number 4, and lyrica, patient was started on Dilaudid 1 mg, lower the dose to half milligrams. Discontinue Fioricet and Xanax Review of Systems CONSTITUTIONAL: No fever, no malaise, no fatigue. HEENT: No recent visual problems or hearing problems. Denied any sore throat. CARDIOVASCULAR: No orthopnea, PND, no palpitations, no syncope. PULMONARY: no hemoptysis. GASTROINTESTINAL: No diarrhea, no nausea, no vomiting, no abdominal pain. Normoactive bowel sounds. NEUROLOGICAL: No headaches, no weakness, no numbness. HEMATOLOGICAL: Denies any bleeding or petechiae. GENITOURINARY: Denies any burning micturition, frequency, or urgency. MUSCULOSKELETAL/RHEUMATOLOGICAL: Denies any joint pain, swelling, or any muscle pain. ENDOCRINE: Denies any polyuria or polydipsia. Past Medical History Past Medical History: Blood Disorder, Coronary Artery Disease (CAD), Heart Failure, COPD, CVA/TIA, Deep Vein Thrombosis (DVT), Fibromyalgia, Hyperlipidemia, Hypertension, Myocardial Infarction (SC), Pneumonia, Pulmonary Embolus (PE), Thyroid Disorder Additional Past Medical History / Comment(s): Sarcoidosis,polycythemia, bilateral PE's, bilateral DVTs, degenerative disk disorder, history of a SC and ventilator dependent respiratory failure with MRSA pneumonia, Viral meningitis in October 2014 and July 2018. Pulmonary fibrosis, home 0xygen at 3l n/c, recent pneumonia, stroke Aug 15 2018 affecting legs and right arm, neuropathy, Last Myocardial Infarction Date:: February 15, 2013 History of Any Multi-Drug Resistant Organisms: MRSA Date of last positivie culture/infection: 11/09/172018 MDRO Source:: PLEURAL FLUID - sputum Past Surgical History: Section, Cholecystectomy, Heart Catheterization, Hernia Repair, Orthopedic Surgery Additional Past Surgical History / Comment(s): Lt ankle surgery, several bronchosopies, Past Anesthesia/Blood Transfusion Reactions: Previous Problems w/ Anesthesia Additional Past Anesthesia/Blood Transfusion Reaction / Comment(s): previously charted -pt stated that last April she coded possbily due to anesthetic-during bronchoscopy procedure with Dr Hicks Smoking Status: Current every day smoker - Past Family History Father Family Medical History: Blood Disorder, Deep Vein Thrombosis (DVT), Myocardial Infarction (SC), Pulmonary Embolus Additional Family Medical History / Comment(s): polycythemia Mother Family Medical History: Deep Vein Thrombosis (DVT) Additional Family Medical History / Comment(s): DDD Sister(s) Family Medical History: No Reported History Brother(s) Family Medical History: No Reported History Son(s) Family Medical History: No Reported History Daughter(s) Family Medical History: No Reported History Medications and Allergies Home Medications Medication Instructions Recorded Confirmed Type Metoprolol Tartrate [Lopressor] 50 mg PO BID #60 tab 08/20/15 03/23/19 Rx lamoTRIgine [LaMICtal] 200 mg PO DAILY 03/22/16 03/23/19 History Bumetanide 2 mg PO HS 10/18/16 03/23/19 History Nystatin 100,000 Unit/gm Powd 1 applic TOPICAL BID 11/04/17 03/23/19 History [Mycostatin Powder] Multivitamins, Thera [Multivitamin 1 tab PO DAILY 08/25/18 03/23/19 History (formulary)] FLUoxetine HCL [PROzac] 20 mg PO DAILY 08/26/18 03/23/19 History Butalb/Acetaminophen/Caffeine 1 cap PO Q4H PRN 09/08/18 03/23/19 History [Fioricet 50-300-40 mg Capsule] Ergocalciferol [Vitamin D2 50,000 unit PO TH 09/08/18 03/23/19 History (DRISDOL)] Mirtazapine [Remeron] 45 mg PO HS 09/08/18 03/23/19 History Pregabalin [Lyrica] 150 mg PO BID 09/08/18 03/23/19 History Acetaminophen-Codeine 300-30mg 1 tab PO Q6H PRN 12/01/18 03/23/19 History [Tylenol w/codeine #3] Ferrous Sulfate [Iron (65 MG 325 mg PO DAILY 12/01/18 03/23/19 History Elemental)] Warfarin [Coumadin] 2 mg PO W/SUPPER 12/01/18 03/23/19 History Warfarin [Coumadin] 10 mg PO W/SUPPER 12/01/18 03/23/19 History Ipratropium-Albuterol Nebulize 3 ml INHALATION RT-QID #120 12/16/18 03/23/19 Rx [Duoneb 0.5 mg-3 mg/3 ml Soln] ampul.neb Levofloxacin [Levaquin] 500 mg PO DAILY #5 tab 12/16/18 03/23/19 Rx Budesonide/Formoterol Fumarate 1 puff INHALATION RT-BID 12/17/18 03/23/19 H istory [Symbicort 160-4.5 Mcg Inhaler] Acetaminophen with Codeine 1 tab PO Q6H PRN 03/23/19 03/23/19 History [Tylenol with Codeine #4 Tablet] Baclofen [Lioresal] 20 mg PO TID 03/23/19 03/23/19 History Bumetanide 4 mg PO DAILY 03/23/19 03/23/19 History Diclofenac Sodium 50 mg PO BID 03/23/19 03/23/19 History Diphenox-Atrop 2.5-0.025 mg 1 tab PO QID PRN 03/23/19 03/23/19 History [Lomotil] methylPREDNISolone Dose Pack See Taper PO DAILY 03/23/19 03/23/19 History [Medrol Dose Pack] ALPRAZolam [Xanax] 0.25 mg PO DAILY PRN 03/24/19 03/24/19 History Lidocaine 4% Cream [Lmx 4] 1 applic TOPICAL DAILY PRN 03/24/19 03/24/19 History Potassium Chloride ER [K-Dur 10] 40 meq PO BID 03/24/19 03/24/19 History Allergies Allergy/AdvReac Type Severity Reaction Status Date / Time cefepime [From Maxipime] Allergy Severe Rash/Hives Verified 03/23/19 16:10 Iodinated Contrast Media Allergy Severe Rash/Hives Verified 03/23/19 16:10 ketorolac tromethamine Allergy Severe Anaphylaxis Verified 03/23/19 16:10 [From Toradol] iodine Allergy Intermediate Itching/severe Verified 03/23/19 16:10 hives adhesive Allergy Rash/Hives Verified 03/23/19 16:10 rivaroxaban [From Xarelto] Allergy Rash/Hives Verified 03/23/19 16:10 sumatriptan [From Imitrex] Allergy Anaphylaxis Verified 03/23/19 16:10 sumatriptan succinate Allergy Anaphylaxis Verified 03/23/19 16:10 [From Imitrex] tramadol Allergy Anaphylaxis Verified 03/23/19 16:10 vancomycin AdvReac Itching Verified 03/23/19 16:10 Rich wipes Allergy Severe Rash/Hives Uncoded 12/17/18 14:03 Physical Exam Vitals: Vital Signs Temp Pulse Pulse Resp BP BP Pulse Ox 03/24/19 08:00 100.3 F H 104 H 18 125/74 93 L 03/24/19 07:43 92 03/24/19 07:35 96 03/24/19 04:00 99.6 F 83 18 119/64 92 L 03/24/19 03:40 92 L 03/24/19 00:00 98.5 F 92 20 127/84 92 L 03/23/19 20:17 92 03/23/19 20:07 94 94 L 03/23/19 20:00 98.5 F 92 22 122/61 92 L 03/23/19 18:05 18 03/23/19 16:49 99.1 F 103 H 18 120/63 90 L 03/23/19 15:51 103 H 16 130/84 88 L 03/23/19 14:50 108 H 22 131/76 88 L 03/23/19 13:15 111 H 16 144/76 89 L 03/23/19 12:43 98.8 F 109 H 35 H 144/76 94 L Intake and Output 03/23/19 03/24/19 03/24/19 22:59 06:59 14:59 Intake Total 444 240 Output Total 1500 1750 Balance -1056 -1750 240 Intake: Oral 444 240 Output: Urine 1500 1750 Other: Voiding Method Indwelling Catheter Indwelling Catheter Weight 85.275 kg 52.5 kg GENERAL: The patient is alert and oriented x3, not in any acute distress. Well developed, well nourished. HEENT: Pupils are round and equally reacting to light. EOMI. No scleral icterus. No conjunctival pallor. Normocephalic, atraumatic. No pharyngeal erythema. No thyromegaly. CARDIOVASCULAR: S1 and S2 present. No murmurs, rubs, or gallops. -PULMONARY: Chest is clear to auscultation,bilateral wheezing and crepitation with decreased air entry on both side ABDOMEN: Soft, nontender, nondistended, normoactive bowel sounds. No palpable organomegaly. MUSCULOSKELETAL: No joint swelling or deformity. EXTREMITIES: No cyanosis, clubbing, or pedal edema. NEUROLOGICAL: Gross neurological examination did not reveal any focal deficits. SKIN: No rashes. No petechiae Results CBC & Chem 7: 03/23/19 12:50 03/23/19 12:50 Labs: Abnormal Lab Results - Last 24 Hours (Table) 03/23/19 03/23/19 03/23/19 Range/Units 12:50 12:50 16:47 WBC 13.6 H (3.8-10.6) k/uL Neutrophils # 11.0 H (1.3-7.7) k/uL PT (9.0-12.0) sec INR (<1.2) Creatinine 0.42 L (0.52-1.04) mg/dL Glucose 155 H (74-99) mg/dL POC Glucose (mg/dL) 179 H (75-99) mg/dL 03/23/19 03/24/19 03/24/19 Range/Units 19:57 06:22 08:23 WBC (3.8-10.6) k/uL Neutrophils # (1.3-7.7) k/uL PT (9.0-12.0) sec INR (<1.2) Creatinine (0.52-1.04) mg/dL Glucose (74-99) mg/dL POC Glucose (mg/dL) 206 H 261 H 154 H (75-99) mg/dL 03/24/19 Range/Units 09:23 WBC (3.8-10.6) k/uL Neutrophils # (1.3-7.7) k/uL PT 12.2 H (9.0-12.0) sec INR 1.2 H (<1.2) Creatinine (0.52-1.04) mg/dL Glucose (74-99) mg/dL POC Glucose (mg/dL) (75-99) mg/dL Thrombosis Risk Factor Assmnt - Choose All That Apply Any of the Below Risk Factors Present?: Yes Each Factor Represents 1 point: Abnormal pulmonary function (COPD), Obesity (BMI >25), Swollen legs (current) Other Risk Factors: No Other congenital or acquired thrombophilia - If yes, enter type in comment: No Thrombosis Risk Factor Assessment Total Risk Factor Score: 3 Thrombosis Risk Factor Assessment Level: Moderate Risk Assessment and Plan Assessment: diffuse interstitial pneumonia systemic inflammatory response with tachycardia, tachypnea and fever sepsis secondary to above Acute on a chronic hypoxic respiratory failure, at home she was on 6 L oxygen and she needs more on admission generalized weakness and de-conditioning chronic Right-sided pleuritic chest pain adrenal insufficiency on steroid taper History of PE on anticoagulation History of pseudomonas infection in her pulmonary passages COPD History of congestive heart failure Hyperlipidemia History of coronary artery disease Hypertension History of hysterectomy Hypothyroidism History of fibromyalgia and bipolar disorder Plan: this is a pleasant 48 years old female who presents with pneumonia and respiratory failure. Continue with Zosyn. Follow-up sputum culture. Pain management. Oxygen therapy. continue with warfarin and Lovenox bridging Labs and medication were reviewed.. Continue same treatment. Continue with symptomatic treatment. Resume home medication. Monitor lytes and vitals. DVT and GI prophylaxis. Further recommendations of the clinical course of the patient DVT prophylaxis: on warfarin and Lovenox bridging GI Prophylaxis: Pepcid PT/OT: Pending Prognosis is guarded
[2019-03-24] MEDS: HYDROmorphone 0.5 MG/0.5 ML SYRINGE IVP PRN ×2 (12:37→20:21)
[2019-03-24] MEDS ORDERED: VANCOMYCIN IV PER PHARMACY 1 EACH MISC MISCELLANE PRN (13:02)
--- NOTE | 2019-03-24 13:40 | P.CNPUL ---
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 She is familiar to our s ervice from previous admissions for complications related to recurrent pulmonary infections. patient presented on 03/23/2019 with complaints of severe shortness of breath, she had been sick for a week, and then started a week ago with nausea and vomiting, patient went to see her PCP on or Sunday, and she was very short of breath, she was told that there is very poor air entry and bilateral bases, and patient was advised to come to the hospital. Patient was febrile, diaphoretic, he states she has been bringing up colored phlegm, possibly hemoptysis. Has been complaining of chest tightness.she was seen in the ER on 03/19/2019 for nausea, vomiting and diarrhea. She also had some low- grade fevers, stool sample for C. diff was negative. She was given IV hydration, antiemetics, and she was discharged home. she returned for evaluation a 03/23/2019 severe shortness of breath, she stated her pulse ox was only 54% on 6 L/m of oxygen, she normally wears 3 L, but 6 L is as high as her home concentrator will go. chest x-ray showed vessel congestion and pulmonary edema and possibility of tiny bilateral pleural effusions. she has had low-grade fevers, she required placement on Airvo which is currently at 90 L or 60% FiO2, and her pulse ox is barely 88-89%. Her breathing is tachypneic and labored, she was started on IV Lasix at 40 mg once daily, and antibiotic coverage in the form of Zithromax in addition to IV steroids, follow-up chest x-ray today still shows extensive diffuse interstitial opacities. influenza screen was negative, blood work has been reviewed, showing white blood cell, 13.6, hemoglobin of 15.2, INR was subtherapeutic at 1.0, electrolytes and renal profile were unremarkable, first troponin was 0.030, and second troponin was 0.018, proBNP was elevated at 2610. Review of Systems All systems: negative Constitutional: Reports weakness, Denies chills, Denies fever Eyes: denies blurred vision, denies pain Ears, nose, mouth and throat: Denies headache, Denies sore throat Cardiovascular: Denies chest pain, Denies shortness of breath Respiratory: Reports dyspnea, Reports home oxygen, Reports respiratory infections, Denies cough Gastrointestinal: Denies abdominal pain, Denies diarrhea, Denies nausea, Denies vomiting Genitourinary: Denies dysuria, Denies hematuria Musculoskeletal: Denies myalgias Integumentary: Denies pruritus, Denies rash Neurological: Denies numbness, Denies weakness Psychiatric: Denies anxiety, Denies depression Endocrine: Denies fatigue, Denies weight change Past Medical History Past Medical History: Blood Disorder, Coronary Artery Disease (CAD), Heart Failure, COPD, CVA/TIA, Deep Vein Thrombosis (DVT), Fibromyalgia, Hyperlipidemia, Hypertension, Myocardial Infarction (NM), Pneumonia, Pulmonary Embolus (PE), Thyroid Disorder Additional Past Medical History / Comment(s): Sarcoidosis,polycythemia, bilateral PE's, bilateral DVTs, degenerative disk disorder, history of a NM and ventilator dependent respiratory failure with MRSA pneumonia, Viral meningitis in October 2014 and July 2018. Pulmonary fibrosis, home 0xygen at 3l n/c, recent pneumonia, stroke Aug 15 2018 affecting legs and right arm, neuropathy, Last Myocardial Infarction Date:: February 15, 2013 History of Any Multi-Drug Resistant Organisms: MRSA Date of last positivie culture/infection: 11/09/172018 MDRO Source:: PLEURAL FLUID - sputum Past Surgical History: Section, Cholecystectomy, Heart Catheterization, Hernia Repair, Orthopedic Surgery Additional Past Surgical History / Comment(s): Lt ankle surgery, several bronchosopies, Past Anesthesia/Blood Transfusion Reactions: Previous Problems w/ Anesthesia Additional Past Anesthesia/Blood Transfusion Reaction / Comment(s): previously charted -pt stated that last April she coded possbily due to anesthetic-during bronchoscopy procedure with Dr Hicks Smoking Status: Current every day smoker - Past Family History Father Family Medical History: Blood Disorder, Deep Vein Thrombosis (DVT), Myocardial Infarction (NM), Pulmonary Embolus Additional Family Medical History / Comment(s): polycythemia Mother Family Medical History: Deep Vein Thrombosis (DVT) Additional Family Medical History / Comment(s): DDD Sister(s) Family Medical History: No Reported History Brother(s) Family Medical History: No Reported History Son(s) Family Medical History: No Reported History Daughter(s) Family Medical History: No Reported History Medications and Allergies Home Medications Medication Instructions Recorded Confirmed Type Metoprolol Tartrate [Lopressor] 50 mg PO BID #60 tab 08/20/15 03/23/19 Rx lamoTRIgine [LaMICtal] 200 mg PO DAILY 03/22/16 03/23/19 History Bumetanide 2 mg PO HS 10/18/16 03/23/19 History Nystatin 100,000 Unit/gm Powd 1 applic TOPICAL BID 11/04/17 03/23/19 History [Mycostatin Powder] Multivitamins, Thera [Multivitamin 1 tab PO DAILY 08/25/18 03/23/19 History (formulary)] FLUoxetine HCL [PROzac] 20 mg PO DAILY 08/26/18 03/23/19 History Butalb/Acetaminophen/Caffeine 1 cap PO Q4H PRN 09/08/18 03/23/19 History [Fioricet 50-300-40 mg Capsule] Ergocalciferol [Vitamin D2 50,000 unit PO TH 09/08/18 03/23/19 History (DRISDOL)] Mirtazapine [Remeron] 45 mg PO HS 09/08/18 03/23/19 History Pregabalin [Lyrica] 150 mg PO BID 09/08/18 03/23/19 History Acetaminophen-Codeine 300-30mg 1 tab PO Q6H PRN 12/01/18 03/23/19 History [Tylenol w/codeine #3] Ferrous Sulfate [Iron (65 MG 325 mg PO DAILY 12/01/18 03/23/19 History Elemental)] Warfarin [Coumadin] 2 mg PO W/SUPPER 12/01/18 03/23/19 History Warfarin [Coumadin] 10 mg PO W/SUPPER 12/01/18 03/23/19 History Ipratropium-Albuterol Nebulize 3 ml INHALATION RT-QID #120 12/16/18 03/23/19 Rx [Duoneb 0.5 mg-3 mg/3 ml Soln] ampul.neb Levofloxacin [Levaquin] 500 mg PO DAILY #5 tab 12/16/18 03/23/19 Rx Budesonide/Formoterol Fumarate 1 puff INHALATION RT-BID 12/17/18 03/23/19 History [Symbicort 160-4.5 Mcg Inhaler] Acetaminophen with Codeine 1 tab PO Q6H PRN 03/23/19 03/23/19 History [Tylenol with Codeine #4 Tablet] Baclofen [Lioresal] 20 mg PO TID 03/23/19 03/23/19 History Bumetanide 4 mg PO DAILY 03/23/19 03/23/19 History Diclofenac Sodium 50 mg PO BID 03/23/19 03/23/19 History Diphenox-Atrop 2.5-0.025 mg 1 tab PO QID PRN 03/23/19 03/23/19 History [Lomotil] methylPREDNISolone Dose Pack See Taper PO DAILY 03/23/19 03/23/19 History [Medrol Dose Pack] ALPRAZolam [Xanax] 0.25 mg PO DAILY PRN 03/24/19 03/24/19 History Lidocaine 4% Cream [Lmx 4] 1 applic TOPICAL DAILY PRN 03/24/19 03/24/19 History Potassium Chloride ER [K-Dur 10] 40 meq PO BID 03/24/19 03/24/19 History Allergies Allergy/AdvReac Type Severity Reaction Status Date / Time cefepime [From Maxipime] Allergy Severe Rash/Hives Verified 03/23/19 16:10 Iodinated Contrast Media Allergy Severe Rash/Hives Verified 03/23/19 16:10 ketorolac tromethamine Allergy Severe Anaphylaxis Verified 03/23/19 16:10 [From Toradol] iodine Allergy Intermediate Itching/severe Verified 03/23/19 16:10 hives adhesive Allergy Rash/Hives Verified 03/23/19 16:10 rivaroxaban [From Xarelto] Allergy Rash/Hives Verified 03/23/19 16:10 sumatriptan [From Imitrex] Allergy Anaphylaxis Verified 03/23/19 16:10 sumatriptan succinate Allergy Anaphylaxis Verified 03/23/19 16:10 [From Imitrex] tramadol Allergy Anaphylaxis Verified 03/23/19 16:10 vancomycin AdvReac Itching Verified 03/23/19 16:10 Rich wipes Allergy Severe Rash/Hives Uncoded 12/17/18 14:03 Physical Exam Vitals: Vital Signs Temp Pulse Pulse Resp BP BP Pulse Ox 03/24/19 12:17 94 03/24/19 12:04 94 03/24/19 11:50 81 18 03/24/19 11:47 99.1 F 81 18 118/80 97 03/24/19 08:00 100.3 F H 104 H 18 125/74 93 L 03/24/19 07:43 92 03/24/19 07:35 96 03/24/19 04:00 99.6 F 83 18 119/64 92 L 03/24/19 03:40 92 L 03/24/19 00:00 98.5 F 92 20 127/84 92 L 03/23/19 20:17 92 03/23/19 20:07 94 94 L 03/23/19 20:00 98.5 F 92 22 122/61 92 L 03/23/19 18:05 18 03/23/19 16:49 99.1 F 103 H 18 120/63 90 L 03/23/19 15:51 103 H 16 130/84 88 L 03/23/19 14:50 108 H 22 131/76 88 L 03/23/19 13:15 111 H 16 144/76 89 L Intake and Output 03/23/19 03/24/19 03/24/19 22:59 06:59 14:59 Intake Total 444 270 Output Total 1500 1750 Balance -1056 -1750 270 Intake: Intake, IV Titration 30 Amount Sodium Chloride 0.9% 1, 30 000 ml @ 999 mls/hr IV . Q1H1M STA Rx#:[id number] Oral 444 240 Output: Urine 1500 1750 Other: Voiding Method Indwelling Catheter Indwelling Catheter Indwelling Catheter Weight 85.275 kg 52.5 kg 52.5 kg GENERAL EXAM: Alert, pleasant, 48-year-old white female, on Airvo at 90 l/min, of Fio2 60%, o2sat 88-89% tachypneic, labored breathing HEAD: Normocephalic/atraumatic. EYES: Normal reaction of pupils, equal size. Conjunctiva pink, sclera white. NOSE: Clear with pink turbinates. THROAT: No erythema or exudates. NECK: No masses, no JVD, no thyroid enlargement, no adenopathy. CHEST: No chest wall deformity. Symmetrical expansion. LUNGS: Equal air entry with decreased air entry at a right lower lobe, posteriorly, wheezing over left lung CVS: Regular rate and rhythm, normal S1 and S2, no gallops, no murmurs, no rubs ABDOMEN: Soft, nontender. No hepatosplenomegaly, normal bowel sounds, no guarding or rigidity. EXTREMITIES: No clubbing, no edema, no cyanosis, 2+ pulses and upper and lower extremities. MUSCULOSKELETAL: Muscle strength and tone normal. SPINE: No scoliosis or deformity SKIN: No rashes CENTRAL NERVOUS SYSTEM: Alert and oriented -3. No focal deficits, tone is normal in all 4 extremities. PSYCHIATRIC: Alert and oriented -3. Appropriate affect. Intact judgment and insight. Results - Laboratory Findings CBC and BMP: 03/23/19 12:50 03/23/19 12:50 PT/INR, D-dimer PT 12.2 sec (9.0-12.0) H 03/24/19 09:23 INR 1.2 (<1.2) H 03/24/19 09:23 Abnormal lab findings: Abnormal Labs 03/23/19 03/23/19 03/23/19 12:50 12:50 16:47 WBC 13.6 H Neutrophils # 11.0 H PT INR Creatinine 0.42 L Glucose 155 H POC Glucose (mg/dL) 179 H 03/23/19 03/24/19 03/24/19 19:57 06:22 08:23 WBC Neutrophils # PT INR Creatinine Glucose POC Glucose (mg/dL) 206 H 261 H 154 H 03/24/19 03/24/19 09:23 12:23 WBC Neutrophils # PT 12.2 H INR 1.2 H Creatinine Glucose POC Glucose (mg/dL) 137 H - Diagnostic Findings Chest x-ray: report reviewed, image reviewed Additional studies: EKG reviewed Assessment and Plan Plan: Assessment: #1. acute on chronic hypoxemic respiratory failure related to extensive interstitial infiltrates, secondary to congestive heart failure and possibility of pneumonia, or possibility of ARDS #2. Recent illness with nausea vomiting and diarrhea, stool for C. diff was negative #3. history of COPD, advanced, on home oxygen #4. History of recurrent pulmonary infections, secondary to Pseudomonas, MRSA #5. History of coronary artery disease #6. History of DVT and pulmonary embolus, on chronic anticoagulation on Coumadin, and patient's INR is subtherapeutic at 1.0 on admission #7. Previous history of myocardial infarction #8. History of congestive heart failure #9. History of hypertension #10. Fibromyalgia #11. History of degenerative disc disease and chronic pain syndrome #12. History of CVA #13. Chronic and ongoing nicotinedependence Plan: we will increase the IV Lasix to 40 mg every 8 hours, we'll obtain repeat echocardiogram, we'll switch to Zithromax to Zosyn and Zyvox, send sputum for culture, patient has been checked for influenza which is negative, patient is having progressive hypoxemic respiratory failure, on Airvo at 90l/60%, today's chest x-ray still shows extensive diffuse interstitial opacities. We'll continue with nebulized bronchodilators, Pulmicort and Perforomist, patient will be transferred to the intensive care unit for closer monitoring. She did make herself a DO NOT RESUSCITATE CODE STATUS, but does want to continue supportive treatment. We will continue to closely follow. I performed a history & physical examination of the patient and discussed their management with my nurse practitioner, Cydney Hart. I reviewed the nurse practitioner's note and agree with the documented findings and plan of care. Lung sounds are positive for diffuse wheezes over left lung, and diminished almost absent breath sounds over right lower lobe. The findings and the impression was discussed with the patient. I attest to the documentation by the nurse practitioner. Time with Patient: Greater than 30
[2019-03-24] MEDS: LINEZOLID 600 MG in DEXTROSE/WATER 1 300ML.BAG IVPB SCH ×2 (15:00→21:33)
[2019-03-24] MEDS: IPRATROPIUM-ALBUTEROL 3 ML NEB INHALATION SCH ×2 (15:19→19:33)
[2019-03-24] MEDS: FUROSEMIDE 100 MG in SODIUM CHLORIDE 0.9% 90 ML IV SCH (15:59)
[2019-03-24] MEDS ORDERED: FUROSEMIDE 10 MG/ML 4 ML VIAL IV SCH (16:00)
[2019-03-24 17:39] LABS: Glucose,Whole Blood 140 mg/dL (75-99)
[2019-03-24] MEDS ORDERED: WARFARIN 3 MG TAB PO ONE (18:00)
[2019-03-24] MEDS: FORMOTEROL FUMARATE 20 MCG/2 ML NEBU INHALATION SCH (19:33)
[2019-03-24] MEDS: BUDESONIDE 1 MG/2 ML NEBU INHALATION SCH (19:33)
[2019-03-24 20:51] LABS: Glucose,Whole Blood 132 mg/dL (75-99)
[2019-03-24] MEDS: ENOXAPARIN 100 MG/ML SYRINGE SQ SCH (21:33)
[2019-03-24] MEDS: NYSTATIN 100,000 UNIT/GM POWD 15 GM TOPICAL SCH (22:00)
[2019-03-24] MEDS: MIRTAZAPINE 45 MG TABLET PO SCH (22:15)
[2019-03-24] MEDS: IPRATROPIUM-ALBUTEROL 3 ML NEB INHALATION PRN (23:15)
[2019-03-25] MEDS: FUROSEMIDE 100 MG in SODIUM CHLORIDE 0.9% 90 ML IV SCH ×2 (01:00→12:21)
[2019-03-25] MEDS: IPRATROPIUM-ALBUTEROL 3 ML NEB INHALATION SCH ×5 (03:12→19:13)
[2019-03-25] MEDS: methylPREDNISolone SOD SUCCI 125 MG/2 ML VIAL IV SCH ×3 (05:31→18:09)
[2019-03-25 05:53] LABS: Basophils % (A) 0 %; Eosinophils # (A) 0.1 k/uL (0-0.7); Eosinophils % (A) 1 %; HCT 42.1 % (34.0-46.0); HGB 14.6 gm/dL (11.4-16.0); Lymphocytes # (A) 0.7 k/uL (1.0-4.8); Lymphocytes % (A) 7 %; MCHC 34.7 g/dL (31.0-37.0); MCV 94.9 fL (80.0-100.0); Mean Platelet Volume 7.4; Monocytes # (A) 0.7 k/uL (0-1.0); Monocytes % (A) 7 %; Neutrophils # (A) 8.9 k/uL (1.3-7.7); Neutrophils % (A) 85 %; Platelet Count 324 k/uL (150-450); RBC 4.43 m/uL (3.80-5.40); RDW 14.7 % (11.5-15.5); WBC 10.4 k/uL (3.8-10.6)
[2019-03-25 05:57] LABS: INR 1.8 (<1.2); Prothrombin Time 18.1 sec (9.0-12.0)
[2019-03-25 06:04] LABS: African American GFR (CKD) >90 (>60 ml/min/1.73 sqM); Anion Gap 7 mmol/L; Blood Urea Nitrogen 18 mg/dL (7-17); Calcium 7.8 mg/dL (8.4-10.2); Carbon Dioxide 37 mmol/L (22-30); Chloride 96 mmol/L (98-107); Glucose 160 mg/dL (74-99); Magnesium 1.9 mg/dL (1.6-2.3); Non-African American GFR(CKD) >90 (>60 ml/min/1.73 sqM); Potassium 3.2 mmol/L (3.5-5.1); Sodium 140 mmol/L (137-145)
[2019-03-25] MEDS ORDERED: Potassium Replacement Protocol 1 EACH MISC MISCELLANE PRN (06:12)
--- NOTE | 2019-03-25 06:26 | XR ---
EXAMINATION TYPE: XR chest 1V DATE OF EXAM: 03/25/2019 CLINICAL HISTORY: Difficulty breathing progress study. TECHNIQUE: Single AP portable semiupright view of the chest is obtained. COMPARISON: Chest x-ray from one day earlier and older studies. FINDINGS: Reticulonodular interstitial changes bilaterally remain present along with bibasilar opaci ties. Elevated left hemidiaphragm. No large pleural effusion or pneumothorax. Cardiac silhouette size stable and upper limits of normal. Osseous structures are intact. IMPRESSION: Overall stable findings, bilateral alveolar and interstitial edema and/or infiltrates o n background chronic parenchymal change slightly more prominent in the lung bases remain present.
[2019-03-25] MEDS: POTASSIUM CHLORIDE 10 MEQ in WATER FOR INJECTION 1 100ML.BAG IVPB SCH ×6 (06:37→20:49)
[2019-03-25] MEDS: INSULIN ASPART (NovoLOG) 100 UNIT/ML VIAL SQ SCH ×4 (06:42→20:42)
[2019-03-25 07:03] LABS: Glucose,Whole Blood 156 mg/dL (75-99)
[2019-03-25] MEDS: FORMOTEROL FUMARATE 20 MCG/2 ML NEBU INHALATION SCH ×2 (07:15→19:13)
[2019-03-25] MEDS: BUDESONIDE 1 MG/2 ML NEBU INHALATION SCH ×2 (07:15→19:12)
[2019-03-25] MEDS: PIPERACILLIN-TAZOBACTAM 3.375 GM in SODIUM CHLORIDE 0.9% 100 ML IVPB SCH ×2 (08:12→15:39)
[2019-03-25] MEDS: FERROUS SULFATE 325 MG TAB PO SCH (08:32)
[2019-03-25] MEDS: BACLOFEN 10 MG TAB PO SCH ×3 (08:32→21:48)
[2019-03-25] MEDS: lamoTRIgine 100 MG TAB PO SCH (08:32)
[2019-03-25] MEDS: LINEZOLID 600 MG in DEXTROSE/WATER 1 300ML.BAG IVPB SCH ×2 (08:33→21:49)
[2019-03-25] MEDS: FLUoxetine HCL 20 MG CAP PO SCH (08:33)
[2019-03-25] MEDS: METOPROLOL TARTRATE 50 MG TAB PO SCH ×2 (08:33→21:48)
[2019-03-25] MEDS: ENOXAPARIN 100 MG/ML SYRINGE SQ SCH ×2 (08:35→21:50)
[2019-03-25] MEDS: DICLOFENAC SODIUM 50 MG PO SCH ×2 (08:36→21:50)
[2019-03-25] MEDS: PREGABALIN 75 MG CAP PO SCH ×2 (08:52→21:00)
[2019-03-25] MEDS ORDERED: FUROSEMIDE 10 MG/ML 4 ML VIAL IV SCH (09:00)
--- NOTE | 2019-03-25 11:52 | ECHOF ---
Referral Reason:shortness of breath MEASUREMENTS -------- HEIGHT: 167.6 cm WEIGHT: 52.2 kg BP: 100/65 RVIDd: 3.3 cm (< 3.3) IVSd: 1.5 cm (0.6 - 1.1) LVIDd: 3.5 cm (3.9 - 5.3) LVPWd: 1.4 cm (0.6 - 1.1) IVSs: 1.8 cm LVIDs: 2.0 cm LVPWs: 1.8 cm LAESV Index (A-L): 32.51 ml/m Ao Diam: 2.7 cm (2.0 - 3.7) AV Cusp: 1.5 cm (1.5 - 2.6) LA Diam: 3.8 cm (2.7 - 3.8) MV EXCURSION: 14.991 mm (> 18.000) MV EF SLOPE: 89 mm/s (70 - 150) EPSS: 0.7 cm MV E Aris: 0.53 m/s MV DecT: 244 ms MV A Aris: 1.01 m/s MV E/A Ratio: 0.52 RAP: 5.00 mmHg RVSP: 32.18 mmHg FINDINGS -------- Sinus rhythm. This was a technically difficult study with suboptimal apical views. The left ventricular size is normal. Left ventricular wall thickness is normal. Overall left vent ricular systolic function is normal with, an EF between 55 - 60 %. The diastolic filling pattern is normal for the age of the patient 7.73. The right ventricle is normal in size. LA is midly dilated 29-33ml/m2. The right atrial size is normal. 5.0mg of Lumason was utilized for enhancement of images Interatrial and interventricular septum intact. The aortic valve is trileaflet and appears structurally normal. Trace to mild aortic regurgitation. There is no evidence of aortic stenosis. The mitral valve is normal. There is trace mitral regurgitation. Mild tricuspid regurgitation present. Right ventricular systolic pressure is normal at < 35 mmHg. The right ventricular systolic pressure, as measured by Doppler, is 32.18mmHg. Trace/mild (physiologic) pulmonic regurgitation. The aortic root size is normal. IVC Not well visulized. There is no pericardial effusion. CONCLUSIONS -------- 1. Sinus rhythm. 2. This was a technically difficult study with suboptimal apical views. 3. The left ventricular size is normal. 4. Left ventricular wall thickness is normal. 5. Overall left ventricular systolic function is normal with, an EF between 55 - 60 %. 6. The diastolic filling pattern is normal for the age of the patient 7.73 7. LA is midly dilated 29-33ml/m2. 8. 5.0mg of Lumason was utilized for enhancement of images 9. The aortic valve is trileaflet and appears structurally normal. 10. Trace to mild aortic regurgitation. 11. There is no evidence of aortic stenosis. 12. There is trace mitral regurgitation. 13. Mild tricuspid regurgitation present. 14. Right ventricular systolic pressure is normal at < 35 mmHg. 15. Trace/mild (physiologic) pulmonic regurgitation. 16. There is no pericardial effusion. BAG MACHINE SET UP OPERATOR: Roshni Corral RDCS
[2019-03-25 11:55] LABS: Glucose,Whole Blood 144 mg/dL (75-99)
[2019-03-25] MEDS: NYSTATIN 100,000 UNIT/GM POWD 15 GM TOPICAL SCH ×2 (12:16→21:50)
--- NOTE | 2019-03-25 12:49 | P.PN ---
Subjective Progress Note Date: 03/25/19 Principal diagnosis: acute hypoxic respiratory failure, multifactorial. 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 She is familiar to our service from previous admissions for complications related to recurrent pulmonary infections. patient presented on 03/23/2019 with complaints of severe shortness of breath, she had been sick for a week, and then started a week ago with nausea and vomiting, patient went to see her PCP on or Sunday, and she was very short of breath, she was told that there is very poor air entry and bilateral bases, and patient was advised to come to the hospital. Patient was febrile, diaphoretic, he states she has been bringing up colored phlegm, pos sibly hemoptysis. Has been complaining of chest tightness.she was seen in the ER on 03/19/2019 for nausea, vomiting and diarrhea. She also had some low-grade fevers, stool sample for C. diff was negative. She was given IV hydration, antiemetics, and she was discharged home. she returned for evaluation a 03/23/2019 severe shortness of breath, she stated her pulse ox was only 54% on 6 L/m of oxygen, she normally wears 3 L, but 6 L is as high as her home concentrator will go. chest x-ray showed vessel congestion and pulmonary edema and possibility of tiny bilateral pleural effusions. she has had low-grade fevers, she required placement on Airvo which is currently at 90 L or 60% FiO2, and her pulse ox is barely 88-89%. Her breathing is tachypneic and labored, she was started on IV Lasix at 40 mg once daily, and antibiotic coverage in the form of Zithromax in addition to IV steroids, follow-up chest x-ray today still shows extensive diffuse interstitial opacities. influenza screen was negative, blood work has been reviewed, showing white blood cell, 13.6, hemoglobin of 15.2, INR was subtherapeutic at 1.0, electrolytes and renal profile were unremarkable, first troponin was 0.030, and second troponin was 0.018, proBNP was elevated at 2610. Patient was reevaluated today on 03/21/2019, remains in the intensive care unit, presently on BiPAP, IPAP of 12 and EPAP of 4, and FiO2 was 90% I cut it down to 50%. Patient remains on Lasix drip and she is in a negative balance of about 3 L. Feeling better, breathing easier, but still on BiPAP at this point.chest x- ray showed some improvement, but continues to show bilateral interstitial infiltrates. Or possibly interstitial edema.labs today were reviewed she had a relatively normal CBC. INR is 1.8 potassium is a bit low at 3.2 renal profile is normal bicarb is 37.echocardiogram showed good LV function, no significant valvular disease, right-sided ventricular pressures are normal.patient is feeling better today, breathing easier, is at bedside, and the patient is sleeping quietly but arousable and follows simple instructions. Objective - Vital Signs Vital signs: Vital Signs Temp 97 F L 03/25/19 08:00 Pulse 76 03/25/19 12:00 Resp 22 03/25/19 12:00 BP 116/74 03/25/19 12:00 Pulse Ox 93 L 03/25/19 12:00 Intake & Output 03/24/19 03/25/19 03/25/19 18:59 06:59 18:59 Intake Total 670 660.167 920 Output Total 1035 2125 575 Balance -365 -1464.833 345 Weight 102.5 kg 103.419 kg Intake: IV 400 570 720 .9 220 120 Linezolid 600 mg In 300 150 300 Dextrose/Water 1 300ml. bag @ 150 mls/hr IVPB Q12HR AGNIESZKA Rx#:[id number] Piperacillin-Tazobactam 3 100 100 100 .375 gm In Sodium Chloride 0.9% 100 ml @ 25 mls/hr IVPB Q8HR AGNIESZKA Rx# :[id number] Potassium Chloride 10 meq 100 200 In Water For Injection 1 100ml.bag @ 100 mls/hr IVPB Q1HR AGNIESZKA Rx#: [id number] Intake, IV Titration 30 90.167 100 Amount Furosemide 100 mg In 90.167 100 Sodium Chloride 0.9% 90 ml @ 5 MG/HR 5 mls/hr IV .Q20H AGNIESZKA Rx#:[id number] Sodium Chloride 0.9% 1, 30 000 ml @ 999 mls/hr IV . Q1H1M STA Rx#:[id number] Oral 240 100 Output: Urine 1035 2125 575 Other: Voiding Method Indwelling Catheter Indwelling Catheter Indwelling Catheter - Exam GENERAL EXAM: revealed 48-year-old female, obese, on BiPAP. Presently at 50% FiO2 with IPAP 12 EPAP of 4. HEAD: Normocephalic/atraumatic. EENT: PERRLA, EOMI, neck is, moist mucous membranes, no neck masses, no JVD, no stridor. CHEST: No chest wall deformity. Symmetrical expansion. LUNGS: Equal air entry with decreased air entry at a right lower lobe, no crackles or rhonchi or wheezes. CVS: Regular rate and rhythm, normal S1 and S2, no gallops, no murmurs, no rubs ABDOMEN: Soft, nontender. No hepatosplenomegaly, normal bowel sounds, no guarding or rigidity. EXTREMITIES: No clubbing, no edema, no cyanosis, 2+ pulses and upper and lower extremities. MUSCULOSKELETAL: Muscle strength and tone normal. SPINE: No scoliosis or deformity SKIN: No rashes CENTRAL NERVOUS SYSTEM: alert oriented 3 focal neurologic deficits. PSYCHIATRIC: normal mood, blunt affect, intact mental status. - Labs CBC & Chem 7: 03/25/19 05:33 03/25/19 05:33 Labs: Abnormal Lab Results - Last 24 Hours (Table) 03/24/19 03/24/19 03/24/19 Range/Units 11:08 17:27 20:40 Neutrophils # (1.3-7.7) k/uL Lymphocytes # (1.0-4.8) k/uL PT (9.0-12.0) sec INR (<1.2) Potassium (3.5-5.1) mmol/L Chloride (98-107) mmol/L Carbon Dioxide (22-30) mmol/L BUN (7-17) mg/dL Glucose (74-99) mg/dL POC Glucose (mg/dL) 140 H 132 H (75-99) mg/dL Calcium (8.4-10.2) mg/dL Procalcitonin 0.50 H (0.02-0.09) ng/mL 12/24/19 12/24/19 12/24/19 Range/Units 05:33 05:33 05:33 Neutrophils # 8.9 H (1.3-7.7) k/uL Lymphocytes # 0.7 L (1.0-4.8) k/uL PT 18.1 H (9.0-12.0) sec INR 1.8 H (<1.2) Potassium 3.2 L (3.5-5.1) mmol/L Chloride 96 L (98-107) mmol/L Carbon Dioxide 37 H (22-30) mmol/L BUN 18 H (7-17) mg/dL Glucose 160 H (74-99) mg/dL POC Glucose (mg/dL) (75-99) mg/dL Calcium 7.8 L (8.4-10.2) mg/dL Procalcitonin (0.02-0.09) ng/mL 03/25/19 03/25/19 Range/Units 06:41 11:44 Neutrophils # (1.3-7.7) k/uL Lymphocytes # (1.0-4.8) k/uL PT (9.0-12.0) sec INR (<1.2) Potassium (3.5-5.1) mmol/L Chloride (98-107) mmol/L Carbon Dioxide (22-30) mmol/L BUN (7-17) mg/dL Glucose (74-99) mg/dL POC Glucose (mg/dL) 156 H 144 H (75-99) mg/dL Calcium (8.4-10.2) mg/dL Procalcitonin (0.02-0.09) ng/mL Assessment and Plan Assessment: #1. acute on chronic hypoxemic respiratory failure related to extensive interstitial infiltrates, secondary to diastoliccongestive heart failure and possibility of pneumonia/underlying pneumonia is not entirely ruled out. #2. Recent illness with nausea vomiting and diarrhea, stool for C. diff was negative #3. history of COPD, advanced, on home oxygen #4. History of recurrent pulmonary infections, secondary to Pseudomonas, MRSA #5. History of coronary artery disease #6. History of DVT and pulmonary embolus, on chronic anticoagulation on Coumadin, and patient's INR is subtherapeutic at 1.0 on admission #7. Previous history of myocardial infarction #8. History of congestive heart failure #9. History of hypertension #10. Fibromyalgia #11. History of degenerative disc disease and chronic pain syndrome #12. History of CVA #13. Chronic and ongoing nicotinedependence Recommendation: After reviewing the chest x-ray, after reviewing the fluid balance, patient will remain on the same medications, I will cut down the Lasix to 5 mg per hour. Continue antibiotics, steroids, bronchodilators, diuretics, continue BiPAP for now and hopefully will titrate or transition down to a nasal cannula all over the next 24 hours. We'll continue to monitor the patient in the ICU. Prognosis remains guarded. was updated on her condition at bedside. Time with Patient: Less than 30
--- NOTE | 2019-03-25 13:15 | P.PN ---
Subjective this is a pleasant 48 years old femalewith past medical history of COPD, congestive heart failure on Bumex at home, DVT, hyperlipidemia, coronary artery disease, hypertension, pulmonary embolism on anticoagulation,chronic respiratory failure on 6 L oxygen at home, hysterectomy, hypothyroidism, polycythemia, fibromyalgia, bipolar disorder. Recurrent/chronic right sided chest pain, pseudomonas pulmonary infection. Presents because of worsening dyspneawith cough and yellowish phlegm for 2 weeks duration associated with nausea vomiting and loose bowel movements on admission patient has fever of 100.3. She was hypoxic with saturating 88-89on FiO2 of 90%. Labs showing leukocytosis of 13.6 K. BMP, liver enzymes and troponin were unremarkable. ProBNP is 2016.chest x-ray: Diffuse interstitial opacities area EKG shows sinus tachycardia at 109. patient received several pain medications including morphine and Dilaudid, she received normal saline IV fluid and was started on Solu-Medrol 60 mg. also patient was started on Lasix 40 mg every 8 hours, we'll lower the dose to 40 mg daily MAPS were checked and patient currently on Tylenol number 4, and lyrica, patient was started on Dilaudid 1 mg, lower the dose to half milligrams. Discontinue Fioricet and Xanax 03/25/2019 yesterday evening patient was transferred to the ICU for respiratory distress needing more breathing support and BiPAP machine. Today patient is seen and examined in the ICU, she is continuously on BiPAP machine and she was sleepy she could not provide information.she is saturating 93%. Mr. Markham looks stable. Her labs from today including CBC stable findings with bilateral interstitial edema and/or infiltrates. Patient in the meantime continue with Zyvox and Zosyn, on Coumadin with Lovenox bridging, insulin Medrol 60 mg and IV Lasix drip. Echo showed ejection fraction of 55-60%. review of system: N/a because patient is on BiPAP machine Active Medications Generic Name Dose Route Start Last Admin Trade Name Freq PRN Reason Stop Dose Admin Acetaminophen/Codeine Phosphate 1 each 03/24/19 12:19 Tylenol #3 PO Q6H PRN MODERATE Pain Albuterol/Ipratropium 3 ml 03/24/19 16:00 03/25/19 11:06 Duoneb 0.5 Mg-3 Mg/3 Ml Soln INHALATION 3 ml RT-QID AGNIESZKA Administration Albuterol/Ipratropium 3 ml 03/24/19 12:59 03/24/19 23:15 Duoneb 0.5 Mg-3 Mg/3 Ml Soln INHALATION 3 ml RT-Q2H PRN Administration Shortness Of Breath Or Wheezing Baclofen 20 mg 03/23/19 22:00 03/25/19 08:32 Lioresal PO 20 mg TID AGNIESZKA Administration Budesonide 1 mg 03/24/19 20:00 03/25/19 07:15 Pulmicort INHALATION 1 mg RT-BID AGNIESZKA Administration Diphenoxylate HCl/Atropine 1 each 03/23/19 17:33 Lomotil PO QID PRN Loose Stool Enoxaparin Sodium 100 mg 03/24/19 21:00 03/25/19 08:35 Lovenox SQ 100 mg BID AGNIESZKA Administration Ergocalciferol 50,000 unit 03/27/19 09:00 Vitamin D2 PO TH [facility] Ferrous Sulfate 325 mg 03/25/19 09:00 03/25/19 08:32 Feosol PO 325 mg DAILY AGNIESZKA Administration Fluoxetine HCl 20 mg 03/25/19 09:00 03/25/19 08:33 Prozac PO 20 mg DAILY [facility] Administration Formoterol Fumarate 20 mcg 03/24/19 20:00 03/25/19 07:15 Perforomist INHALATION 20 mcg RT-BID AGNIESZKA Administration Hydromorphone HCl 0.5 mg 03/24/19 12:23 03/24/19 20:21 Dilaudid IVP 0.5 mg Q4HR PRN Administration SEVERE Pain Piperacillin Sod/Tazobactam 100 mls @ 25 mls/hr 03/24/19 10:15 03/25/19 08:12 Sod 3.375 gm/ Sodium Chloride IVPB 25 mls/hr Q8HR AGNIESZKA Administration Linezolid 600 mg/ IV Solution 300 mls @ 150 mls/hr 03/24/19 13:15 03/25/19 08:33 IVPB 150 mls/hr Q12HR AGNIESZKA Administration Protocol Furosemide 100 mg/ Sodium 100 mls @ 5 mls/hr 03/24/19 15:15 03/25/19 12:21 Chloride IV 10 mg/hr .Q20H AGNIESZKA 10 mls/hr Administration 5 MG/HR Insulin Aspart 0 unit 03/24/19 07:30 03/25/19 12:24 Novolog SQ 2 unit ACHS AGNIESZKA Administration Protocol Lamotrigine 200 mg 03/25/19 09:00 03/25/19 08:32 Lamictal PO 200 mg DAILY AGNIESZKA Administration Lidocaine HCl 1 applic 03/24/19 12:19 Lmx 4 TOPICAL DAILY PRN Pain Lorazepam 1 mg 03/23/19 15:58 03/24/19 20:26 Ativan IV 1 mg Q4HR PRN Administration Anxiety Methylprednisolone Sodium Succinate 60 mg 03/23/19 19:00 03/25/19 12:15 Solu-Medrol IV 60 mg Q6HR AGNIESZKA Administration Metoprolol Tartrate 50 mg 03/23/19 21:00 03/25/19 08:33 Lopressor PO 50 mg BID AGNIESZKA Administration Mirtazapine 45 mg 03/23/19 21:00 03/24/19 22:15 Remeron PO 45 mg HS AGNIESZKA Administration Miscellaneous Information 1 each 03/23/19 17:35 Coumadin Per Pharmacy MISCELLANE DIRECTED PRN Per Protocol Miscellaneous Information 1 each 03/25/19 06:12 Potassium Per Protocol MISCELLANE DAILY PRN Per Protocol Protocol Non-Formulary Medication 50 mg 03/23/19 21:00 03/25/19 08:36 Diclofenac Sodium [Diclofenac Sodium] PO Not Given BID AGNIESZKA Nystatin 1 applic 03/24/19 21:00 03/25/19 12:16 Mycostatin Powder TOPICAL 1 applic BID AGNIESZKA Administration Ondansetron HCl 4 mg 03/24/19 10:14 03/24/19 10:43 Zofran IVP 4 mg Q6HR PRN Administration Nausea And Vomiting Pregabalin 150 mg 03/23/19 21:00 03/25/19 08:52 Lyrica PO 150 mg BID AGNIESZKA Administration Warfarin Sodium 12 mg 03/25/19 18:00 Coumadin PO 03/25/19 18:01 ONCE@1800 ONE Objective - Vital Signs Vital signs: Vital Signs Temp 97 F L 03/25/19 08:00 Pulse 76 03/25/19 12:00 Resp 22 03/25/19 12:00 BP 116/74 03/25/19 12:00 Pulse Ox 93 L 03/25/19 12:00 Intake & Output 03/24/19 03/25/19 03/25/19 18:59 06:59 18:59 Intake Total 670 660.167 920 Output Total 1035 2125 575 Balance -365 -2054.833 345 Weight 102.5 kg 103.419 kg Intake: IV 400 570 720 .9 220 120 Linezolid 600 mg In 300 150 300 Dextrose/Water 1 300ml. bag @ 150 mls/hr IVPB Q12HR [facility]IESZKA Rx#:[id number] Piperacillin-Tazobactam 3 100 100 100 .375 gm In Sodium Chloride 0.9% 100 ml @ 25 mls/hr IVPB Q8HR [facility]IESZKA Rx# :[id number] Potassium Chloride 10 meq 100 200 In Water For Injection 1 100ml.bag @ 100 mls/hr IVPB Q1HR AGNIESZKA Rx#: [id number] Intake, IV Titration 30 90.167 100 Amount Furosemide 100 mg In 90.167 100 Sodium Chloride 0.9% 90 ml @ 5 MG/HR 5 mls/hr IV .Q20H AGNIESZKA Rx#:[id number] Sodium Chloride 0.9% 1, 30 000 ml @ 999 mls/hr IV . Q1H1M STA Rx#:[id number] Oral 240 100 Output: Urine 1035 2125 575 Other: Voiding Method Indwelling Catheter Indwelling Catheter Indwelling Catheter - Exam -GENERAL: The patient is on BiPAP machine HEENT: Pupils are round and equally reacting to light. EOMI. No scleral icterus. No conjunctival pallor. Normocephalic, atraumatic. No pharyngeal erythema. No thyromegaly. CARDIOVASCULAR: S1 and S2 present. No murmurs, rubs, or gallops. -PULMONARY: Chest is clear to auscultation,bilateral wheezing and crepitation with decreased air entry on both side ABDOMEN: Soft, nontender, nondistended, normoactive bowel sounds. No palpable organomegaly. MUSCULOSKELETAL: No joint swelling or deformity. EXTREMITIES: No cyanosis, clubbing, or pedal edema. NEUROLOGICAL: Gross neurological examination did not reveal any focal deficits. SKIN: No rashes. No petechiae - Labs CBC & Chem 7: 03/25/19 05:33 03/25/19 05:33 Labs: Abnormal Lab Results - Last 24 Hours (Table) 03/24/19 03/24/19 03/24/19 Range/Units 11:08 17:27 20:40 Neutrophils # (1.3-7.7) k/uL Lymphocytes # (1.0-4.8) k/uL PT (9.0-12.0) sec INR (<1.2) Potassium (3.5-5.1) mmol/L Chloride (98-107) mmol/L Carbon Dioxide (22-30) mmol/L BUN (7-17) mg/dL Glucose (74-99) mg/dL POC Glucose (mg/dL) 140 H 132 H (75-99) mg/dL Calcium (8.4-10.2) mg/dL Procalcitonin 0.50 H (0.02-0.09) ng/mL 03/25/19 03/25/19 03/25/19 Range/Units 05:33 05:33 05:33 Neutrophils # 8.9 H (1.3-7.7) k/uL Lymphocytes # 0.7 L (1.0-4.8) k/uL PT 18.1 H (9.0-12.0) sec INR 1.8 H (<1.2) Potassium 3.2 L (3.5-5.1) mmol/L Chloride 96 L (98-107) mmol/L Carbon Dioxide 37 H (22-30) mmol/L BUN 18 H (7-17) mg/dL Glucose 160 H (74-99) mg/dL POC Glucose (mg/dL) (75-99) mg/dL Calcium 7.8 L (8.4-10.2) mg/dL Procalcitonin (0.02-0.09) ng/mL 03/25/19 03/25/19 Range/Units 06:41 11:44 Neutrophils # (1.3-7.7) k/uL Lymphocytes # (1.0-4.8) k/uL PT (9.0-12.0) sec INR (<1.2) Potassium (3.5-5.1) mmol/L Chloride (98-107) mmol/L Carbon Dioxide (22-30) mmol/L BUN (7-17) mg/dL Glucose (74-99) mg/dL POC Glucose (mg/dL) 156 H 144 H (75-99) mg/dL Calcium (8.4-10.2) mg/dL Procalcitonin (0.02-0.09) ng/mL Assessment and Plan Assessment: diffuse interstitial pneumonia systemic inflammatory response with tachycardia, tachypnea and fever sepsis secondary to above Acute on a chronic hypoxic respiratory failure, at home she was on 6 L oxygen and she needs more on admission generalized weakness and de-conditioning chronic Right-sided pleuritic chest pain adrenal insufficiency on steroid taper History of PE on anticoagulation History of pseudomonas infection in her pulmonary passages COPD History of congestive heart failure Hyperlipidemia History of coronary artery disease Hypertension History of hysterectomy Hypothyroidism History of fibromyalgia and bipolar disorder Plan: this is a pleasant 48 years old female who presents with pneumonia and respiratory failure. Continue with Zosyn and Zyvox. Follow-up sputum culture. Pain management. Oxygen therapy. continue with warfarin and Lovenox bridging, continue with Lasix IV and some limited to Labs and medication were reviewed.. Continue same treatment. Continue with symptomatic treatment. Resume home medication. Monitor lytes and vitals. DVT and GI prophylaxis. Further recommendations of the clinical course of the patient DVT prophylaxis: on warfarin and Lovenox bridging GI Prophylaxis: Pepcid Prognosis is guarded
[2019-03-25] MEDS: HYDROmorphone 0.5 MG/0.5 ML SYRINGE IVP PRN ×2 (13:42→16:18)
[2019-03-25] MEDS: ONDANSETRON 4 MG/2 ML VIAL IVP PRN (16:31)
[2019-03-25] MEDS: LORazepam 2 MG/ML INJ IV PRN (16:40)
[2019-03-25 17:14] LABS: Glucose,Whole Blood 102 mg/dL (75-99)
--- NOTE | 2019-03-25 17:50 | P.CRDCN ---
History of Present Illness Consult date: 03/24/19 History of present illness: This is a 48-year-old female with history of chronic hypoxic. This pretty failure related to history of recurrent pulmonary infections with underlying chronic pulmonary fibrosis. She also the history of recurrent pneumonias including Pseudomonas, MRSA and Enterococcus faecalis and also sarcoidosis. She also had a history of chronic diastolic congestive heart failure with history of coronary artery disease and previous microinfarction along with hypertension and hyperlipidemia. Patient is now admitted with complaints of increasing shortness of breath. Patient apparently was sick for a week prior to admission with nausea, vomiting and flulike symptoms. Patient has history of fevers, diaphoresis and has been bringing up colored phlegm. Patient was admitted with severe shortness of breath and also no oxygen saturations. Chest x-ray showed pulmonary fibrosis and possible congestive heart failure. Patient was started on IV steroids along with by mouth Lasix and antibiotics. Her white count was slightly elevated. Troponins were nondiagnostic with elevated proBNP level. Her symptoms appear mostly related to underlying pulmonary issues and possible pneumonia. Competent of diastolic CHF cannot be excluded. 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 Patient is very short of breath and appears to be in moderate to severe respiratory distress EYES: Denies diplopia, blurring of vision EARS, NOSE, MOUTH, THROAT: Denies headaches, denies sore throat. CARDIOVASCULAR: As per HPI RESPIRATORY: As per HPI GASTROINTESTINAL: Denies change in appetite, denies abdominal pain, denies diarrhea GENITOURINARY: Denies hematuria, denies infections. MUSKULOSKELETAL: Denies pain, denies swelling. Denies any cramps or claudication INTEGUMENTARY: Denies rash, denies eczema. NEUROLOGICAL: Denies focal weakness, or visual disturbance. Denies any dizziness or syncope P Past Medical History Past Medical History: Blood Disorder, Coronary Artery Disease (CAD), Heart Failure, COPD, CVA/TIA, Deep Vein Thrombosis (DVT), Fibromyalgia, Hyperlipidemia, Hypertension, Myocardial Infarction ([place]), Pneumonia, Pulmonary Embolus (PE), Thyroid Disorder Additional Past Medical History / Comment(s): Sarcoidosis,polycythemia, bilateral PE's, bilateral DVTs, degenerative disk disorder, history of a [place] and ventilator dependent respiratory failure with MRSA pneumonia, Viral meningitis in October 2014 and July 2018. Pulmonary fibrosis, home 0xygen at 3l n/c, recent pneumonia, stroke Aug 15 2018 affecting legs and right arm, neuropathy, Last Myocardial Infarction Date:: February 15, 2013 History of Any Multi-Drug Resistant Organisms: MRSA Date of last positivie culture/infection: 11/09/172018 MDRO Source:: PLEURAL FLUID - sputum Past Surgical History: Section, Cholecystectomy, Heart Catheterization, Hernia Repair, Orthopedic Surgery Additional Past Surgical History / Comment(s): Lt ankle surgery, several bronchosopies, Past Anesthesia/Blood Transfusion Reactions: Previous Problems w/ Anesthesia Additional Past Anesthesia/Blood Transfusion Reaction / Comment(s): previously charted -pt stated that last April she coded possbily due to anesthetic-during bronchoscopy procedure with Dr Hicks Smoking Status: Current every day smoker - Past Family History Father Family Medical History: Blood Disorder, Deep Vein Thrombosis (DVT), Myocardial Infarction ([place]), Pulmonary Embolus Additional Family Medical History / Comment(s): polycythemia Mother Family Medical History: Deep Vein Thrombosis (DVT) Additional Family Medical History / Comment(s): DDD Sister(s) Family Medical History: No Reported History Brother(s) Family Medical History: No Reported History Son(s) Family Medical History: No Reported History Daughter(s) Family Medical History: No Reported History Medications and Allergies Home Medications Medication Instructions Recorded Confirmed Type Metoprolol Tartrate [Lopressor] 50 mg PO BID #60 tab 08/20/15 03/23/19 Rx lamoTRIgine [LaMICtal] 200 mg PO DAILY 03/22/16 03/23/19 History Bumetanide 2 mg PO HS 10/18/16 03/23/19 History Nystatin 100,000 Unit/gm Powd 1 applic TOPICAL BID 11/04/17 03/23/19 History [Mycostatin Powder] Multivitamins, Thera [Multivitamin 1 tab PO DAILY 08/25/18 03/23/19 History (formulary)] FLUoxetine HCL [PROzac] 20 mg PO DAILY 08/26/18 03/23/19 History Butalb/Acetaminophen/Caffeine 1 cap PO Q4H PRN 09/08/18 03/23/19 History [Fioricet 50-300-40 mg Capsule] Ergocalciferol [Vitamin D2 50,000 unit PO TH 09/08/18 03/23/19 History (DRISDOL)] Mirtazapine [Remeron] 45 mg PO HS 09/08/18 03/23/19 History Pregabalin [Lyrica] 150 mg PO BID 09/08/18 03/23/19 History Acetaminophen-Codeine 300-30mg 1 tab PO Q6H PRN 12/01/18 03/23/19 History [Tylenol w/codeine #3] Ferrous Sulfate [Iron (65 MG 325 mg PO DAILY 12/01/18 03/23/19 History Elemental)] Warfarin [Coumadin] 2 mg PO W/SUPPER 12/01/18 03/23/19 History Warfarin [Coumadin] 10 mg PO W/SUPPER 12/01/18 03/23/19 History Ipratropium-Albuterol Nebulize 3 ml INHALATION RT-QID #120 12/16/18 03/23/19 Rx [Duoneb 0.5 mg-3 mg/3 ml Soln] ampul.neb Levofloxacin [Levaquin] 500 mg PO DAILY #5 tab 12/16/18 03/23/19 Rx Budesonide/Formoterol Fumarate 1 puff INHALATION RT-BID 12/17/18 03/23/19 History [Symbicort 160-4.5 Mcg Inhaler] Acetaminophen with Codeine 1 tab PO Q6H PRN 03/23/19 03/23/19 History [Tylenol with Codeine #4 Tablet] Baclofen [Lioresal] 20 mg PO TID 03/23/19 03/23/19 History Bumetanide 4 mg PO DAILY 03/23/19 03/23/19 History Diclofenac Sodium 50 mg PO BID 03/23/19 03/23/19 History Diphenox-Atrop 2.5-0.025 mg 1 tab PO QID PRN 03/23/19 03/23/19 History [Lomotil] methylPREDNISolone Dose Pack See Taper PO DAILY 03/23/19 03/23/19 History [Medrol Dose Pack] ALPRAZolam [Xanax] 0.25 mg PO DAILY PRN 03/24/19 03/24/19 History Lidocaine 4% Cream [Lmx 4] 1 applic TOPICAL DAILY PRN 03/24/19 03/24/19 History Potassium Chloride ER [K-Dur 10] 40 meq PO BID 03/24/19 03/24/19 History Allergies Allergy/AdvReac Type Severity Reaction Status Date / Time cefepime [From Maxipime] Allergy Severe Rash/Hives Verified 03/23/19 16:10 Iodinated Contrast Media Allergy Severe Rash/Hives Verified 03/23/19 16:10 ketorolac tromethamine Allergy Severe Anaphylaxis Verified 03/23/19 16:10 [From Toradol] iodine Allergy Intermediate Itching/severe Verified 03/23/19 16:10 hives adhesive Allergy Rash/Hives Verified 03/23/19 16:10 rivaroxaban [From Xarelto] Allergy Rash/Hives Verified 03/23/19 16:10 sumatriptan [From Imitrex] Allergy Anaphylaxis Verified 03/23/19 16:10 sumatriptan succinate Allergy Anaphylaxis Verified 03/23/19 16:10 [From Imitrex] tramadol Allergy Anaphylaxis Verified 03/23/19 16:10 vancomycin AdvReac Itching Verified 03/23/19 16:10 Rich wipes Allergy Severe Rash/Hives Uncoded 12/17/18 14:03 Physical Exam Vitals: Vital Signs Temp Pulse Resp BP Pulse Ox 03/25/19 17:00 94 L 03/25/19 16:04 78 03/25/19 16:00 97.3 F L 82 27 H 100/66 96 03/25/19 15:50 80 03/25/19 15:00 77 26 H 109/71 92 L 03/25/19 14:00 80 21 102/64 92 L 03/25/19 13:00 75 21 114/66 92 L 03/25/19 12:00 76 22 116/74 93 L 03/25/19 11:17 78 03/25/19 11:06 79 03/25/19 11:00 73 19 110/66 95 03/25/19 10:00 73 20 120/84 94 L 03/25/19 09:00 81 21 127/83 98 03/25/19 08:00 97 F L 89 34 H 106/65 96 03/25/19 07:37 80 03/25/19 07:25 78 03/25/19 07:15 78 03/25/19 07:00 77 19 105/63 96 03/25/19 06:00 79 25 H 112/74 97 03/25/19 05:00 76 22 111/75 96 03/25/19 04:00 98.9 F 76 18 105/69 96 03/25/19 03:36 76 03/25/19 03:12 73 03/25/19 03:00 72 19 106/69 96 03/25/19 02:00 76 21 103/67 97 03/25/19 01:00 79 19 134/86 97 03/25/19 00:00 98 F 91 20 116/70 97 03/24/19 23:26 84 03/24/19 23:15 82 03/24/19 23:00 81 22 127/80 97 03/24/19 22:00 87 20 120/74 97 03/24/19 21:00 84 23 161/82 95 03/24/19 20:03 90 03/24/19 20:00 98.9 F 86 24 137/83 97 03/24/19 19:53 85 03/24/19 19:34 85 03/24/19 19:00 82 24 94/75 96 03/24/19 18:00 86 30 H 119/72 93 L Intake and Output 03/25/19 03/25/19 03/25/19 06:59 14:59 22:59 Intake Total 109.836 0717 140 Output Total 1125 775 225 Balance -524.833 285 -85 Intake: IV 510 860 140 .9 160 160 40 Linezolid 600 mg In 150 300 Dextrose/Water 1 300ml. bag @ 150 mls/hr IVPB Q12HR [facility] Rx#:[id number] Piperacillin-Tazobactam 3 100 100 100 .375 gm In Sodium Chloride 0.9% 100 ml @ 25 mls/hr IVPB Q8HR [facility] Rx# :[id number] Potassium Chloride 10 meq 100 300 In Water For Injection 1 100ml.bag @ 100 mls/hr IVPB Q1HR [facility] Rx#: [id number] Intake, IV Titration 90.167 100 Amount Furosemide 100 mg In 90.167 100 Sodium Chloride 0.9% 90 ml @ 5 MG/HR 5 mls/hr IV .Q20H [facility] Rx#:[id number] Oral 100 Output: Urine 1125 775 225 Other: Voiding Method Indwelling Catheter Indwelling Catheter Indwelling Catheter Weight 103.419 kg GENERAL EXAM: Patient is alert and oriented and doesn't appear to be in any acute distress HEENT: Normocephalic. Normal reaction of pupils, equal size, normal range of extraocular motion. No erythema or exudates in the throat. NECK: No masses, no nuchal rigidity. CHEST: No chest wall deformity. LUNGS: Diminished breath sounds without rales at the bases HEART: S1 and S2 normal with no audible mumurs or gallops. Regular rhythm, femorals equal on both sides.. ABDOMEN: No hepatosplenomegaly, normal bowel sounds, no guarding or rigidity. SKIN: No rashes CENTRAL NERVOUS SYSTEM: No focal deficits. EXTREMITIES: No cyanosis, clubbing or edema. Results 03/25/19 05:33 03/25/19 16:20 Coagulation 03/25/19 Range/Units 05:33 PT 18.1 H (9.0-12.0) sec CBC 03/25/19 Range/Units 05:33 WBC 10.4 (3.8-10.6) k/uL RBC 4.43 (3.80-5.40) m/uL Hgb 14.6 (11.4-16.0) gm/dL Hct 42.1 (34.0-46.0) % Plt Count 324 (150-450) k/uL Comprehensive Metabolic Panel 03/25/19 03/25/19 Range/Units 05:33 16:20 Sodium 140 (137-145) mmol/L Potassium 3.2 L 3.4 L (3.5-5.1) mmol/L Chloride 96 L (98-107) mmol/L Carbon Dioxide 37 H (22-30) mmol/L BUN 18 H (7-17) mg/dL Creatinine 0.56 (0.52-1.04) mg/dL Glucose 160 H (74-99) mg/dL Calcium 7.8 L (8.4-10.2) mg/dL Current Medications Generic Name Dose Route Start Last Admin Trade Name Freq PRN Reason Stop Dose Admin Acetaminophen/Codeine Phosphate 1 each 03/24/19 12:19 Tylenol #3 PO Q6H PRN MODERATE Pain Albuterol/Ipratropium 3 ml 03/24/19 16:00 03/25/19 15:50 Duoneb 0.5 Mg-3 Mg/3 Ml Soln INHALATION 3 ml RT-QID [facility] Administration Albuterol/Ipratropium 3 ml 03/24/19 12:59 03/24/19 23:15 Duoneb 0.5 Mg-3 Mg/3 Ml Soln INHALATION 3 ml RT-Q2H PRN Administration Shortness Of Breath Or Wheezing Baclofen 20 mg 03/23/19 22:00 03/25/19 15:39 Lioresal PO 20 mg TID [facility] Administration Budesonide 1 mg 03/24/19 20:00 03/25/19 07:15 Pulmicort INHALATION 1 mg RT-BID [facility] Administration Diphenoxylate HCl/Atropine 1 each 03/23/19 17:33 Lomotil PO QID PRN Loose Stool Enoxaparin Sodium 100 mg 03/24/19 21:00 03/25/19 08:35 Lovenox SQ 100 mg BID [facility] Administration Ergocalciferol 50,000 unit 03/27/19 09:00 Vitamin D2 PO TH [facility] Ferrous Sulfate 325 mg 03/25/19 09:00 03/25/19 08:32 Feosol PO 325 mg DAILY [facility] Administration Fluoxetine HCl 20 mg 03/25/19 09:00 03/25/19 08:33 Prozac PO 20 mg DAILY [facility] Administration Formoterol Fumarate 20 mcg 03/24/19 20:00 03/25/19 07:15 Perforomist INHALATION 20 mcg RT-BID [facility] Administration Hydromorphone HCl 0.5 mg 03/24/19 12:23 03/25/19 16:18 Dilaudid IVP 0.5 mg Q4HR PRN Administration SEVERE Pain Piperacillin Sod/Tazobactam 100 mls @ 25 mls/hr 03/24/19 10:15 03/25/19 15:39 Sod 3.375 gm/ Sodium Chloride IVPB 25 mls/hr Q8HR [facility] Administration Linezolid 600 mg/ IV Solution 300 mls @ 150 mls/hr 03/24/19 13:15 03/25/19 08:33 IVPB 150 mls/hr Q12HR [facility] Administration Protocol Furosemide 100 mg/ Sodium 100 mls @ 5 mls/hr 03/24/19 15:15 03/25/19 12:21 Chloride IV 10 mg/hr .Q20H [facility] 10 mls/hr Administration 5 MG/HR Insulin Aspart 0 unit 03/24/19 07:30 03/25/19 12:24 Novolog SQ 2 unit ACHS [facility] Administration Protocol Lamotrigine 200 mg 03/25/19 09:00 03/25/19 08:32 Lamictal PO 200 mg DAILY [facility] Administration Lidocaine HCl 1 applic 03/24/19 12:19 Lmx 4 TOPICAL DAILY PRN Pain Lorazepam 1 mg 03/23/19 15:58 03/25/19 16:40 Ativan IV 1 mg Q4HR PRN Administration Anxiety Methylprednisolone Sodium Succinate 60 mg 03/23/19 19:00 03/25/19 12:15 Solu-Medrol IV 60 mg Q6HR [facility] Administration Metoprolol Tartrate 50 mg 03/23/19 21:00 03/25/19 08:33 Lopressor PO 50 mg BID [facility] Administration Mirtazapine 45 mg 03/23/19 21:00 03/24/19 22:15 Remeron PO 45 mg HS [facility] Administration Miscellaneous Information 1 each 03/23/19 17:35 Coumadin Per Pharmacy MISCELLANE DIRECTED PRN Per Protocol Miscellaneous Information 1 each 03/25/19 06:12 Potassium Per Protocol MISCELLANE DAILY PRN Per Protocol Protocol Non-Formulary Medication 50 mg 03/23/19 21:00 03/25/19 08:36 Diclofenac Sodium [Diclofenac Sodium] PO Not Given BID [facility] Nystatin 1 applic 03/24/19 21:00 03/25/19 12:16 Mycostatin Powder TOPICAL 1 applic BID [facility] Administration Ondansetron HCl 4 mg 03/24/19 10:14 03/25/19 16:31 Zofran IVP 4 mg Q6HR PRN Administration Nausea And Vomiting Pregabalin 150 mg 03/23/19 21:00 03/25/19 08:52 Lyrica PO 150 mg BID [facility] Administration Warfarin Sodium 12 mg 03/25/19 18:00 Coumadin PO 03/25/19 18:01 ONCE@1800 ONE Intake and Output 03/25/19 03/25/19 03/25/19 06:59 14:59 22:59 Intake Total 370.380 6932 140 Output Total 1125 775 225 Balance -524.833 285 -85 Intake: IV 510 860 140 .9 160 160 40 Linezolid 600 mg In 150 300 Dextrose/Water 1 300ml. bag @ 150 mls/hr IVPB Q12HR [facility] Rx#:[id number] Piperacillin-Tazobactam 3 100 100 100 .375 gm In Sodium Chloride 0.9% 100 ml @ 25 mls/hr IVPB Q8HR [facility] Rx# :[id number] Potassium Chloride 10 meq 100 300 In Water For Injection 1 100ml.bag @ 100 mls/hr IVPB Q1HR [facility] Rx#: [id number] Intake, IV Titration 90.167 100 Amount Furosemide 100 mg In 90.167 100 Sodium Chloride 0.9% 90 ml @ 5 MG/HR 5 mls/hr IV .Q20H [facility] Rx#:[id number] Oral 100 Output: Urine 1125 775 225 Other: Voiding Method Indwelling Catheter Indwelling Catheter Indwelling Catheter Weight 103.419 kg 03/25/19 05:33 03/25/19 16:20 EKG Interpretations (text) Sinus rhythm and sinus tachycardia Assessment and Plan (1) Diastolic CHF Current Visit: Yes Status: Acute Code(s): I50.30 - UNSPECIFIED DIASTOLIC (CONGESTIVE) HEART FAILURE SNOMED Code(s): 741036150 (2) Acute exacerbation of chronic bronchitis Current Visit: Yes Status: Acute Code(s): J20.9 - ACUTE BRONCHITIS, UNSPECIFIED SNOMED Code(s): 816184922 (3) COPD (chronic obstructive pulmonary disease) Current Visit: Yes Status: Acute Code(s): J44.9 - CHRONIC OBSTRUCTIVE PULMONARY DISEASE, UNSPECIFIED SNOMED Code(s): 45752675 (4) Hypoxia Current Visit: Yes Status: Acute Code(s): R09.02 - HYPOXEMIA SNOMED Code(s): 977401404 (5) History of coronary artery disease Current Visit: Yes Status: Acute Code(s): Z86.79 - PERSONAL HISTORY OF OTHER DISEASES OF THE CIRCULATORY SYSTEM SNOMED Code(s): 761560362 Plan: Her symptoms seemed to mostly related to pulmonary issues with underlying pulmonary fibrosis and also possible pneumonia. Concomitant diastolic CHF. Continue current medical therapy. If necessary, IV diuretics could be considered. Prognosis is guarded
--- NOTE | 2019-03-25 17:53 | P.PN ---
Subjective Progress Note Date: 03/25/19 This is a 48-year-old female with history of pulmonary fibrosis, chronic respiratory failure and known ischemic heart disease with history of diastolic CHF. Admitted to the hospital with increasing shortness of breath and a history of some cough and sputum production and fevers. Her presentation is consistent with possible pneumonia superimposed on chronic lung disease. There may be a component of diastolic CHF. Patient was started on IV Lasix and the dose is reduced today. Continue with steroids and antibiotic therapy. We'll follow Objective - Vital Signs Vital signs: Vital Signs Temp 97.3 F L 03/25/19 16:00 Pulse 78 03/25/19 16:04 Resp 27 H 03/25/19 16:00 BP 100/66 03/25/19 16:00 Pulse Ox 94 L 03/25/19 17:00 Intake & Output 03/24/19 03/25/19 03/25/19 18:59 06:59 18:59 Intake Total 670 183.222 8721 Output Total 1035 2125 1000 Balance -365 -1464.833 200 Weight 102.5 kg 103.419 kg Intake: IV 186 038 5637 .9 220 200 Linezolid 600 mg In 300 150 300 Dextrose/Water 1 300ml. bag @ 150 mls/hr IVPB Q12HR [facility] Rx#:[id number] Piperacillin-Tazobactam 3 100 100 200 .375 gm In Sodium Chloride 0.9% 100 ml @ 25 mls/hr IVPB Q8HR [facility] Rx# :[id number] Potassium Chloride 10 meq 100 300 In Water For Injection 1 100ml.bag @ 100 mls/hr IVPB Q1HR [facility] Rx#: [id number] Intake, IV Titration 30 90.167 100 Amount Furosemide 100 mg In 90.167 100 Sodium Chloride 0.9% 90 ml @ 5 MG/HR 5 mls/hr IV .Q20H [facility] Rx#:[id number] Sodium Chloride 0.9% 1, 30 000 ml @ 999 mls/hr IV . Q1H1M [facility] Rx#:[id number] Oral 240 100 Output: Urine 1035 2125 1000 Other: Voiding Method Indwelling Catheter Indwelling Catheter Indwelling Catheter - Exam GENERAL EXAM: Patient is alert but drowsy and seemed to be moderate to severe respiratory distress HEENT: Normocephalic. Normal reaction of pupils, equal size, normal range of extraocular motion. No erythema or exudates in the throat. NECK: No masses, no nuchal rigidity. CHEST: No chest wall deformity. LUNGS: Initiated entry with wheezing and rhonchi HEART: S1 and S2 normal. ABDOMEN: No hepatosplenomegaly, normal bowel sounds, no guarding or rigidity. SKIN: No rashes CENTRAL NERVOUS SYSTEM: No focal deficits. EXTREMITIES: No cyanosis, clubbing or edema. - Labs CBC & Chem 7: 03/25/19 05:33 03/25/19 16:20 Labs: Abnormal Lab Results - Last 24 Hours (Table) 03/24/19 03/25/19 03/25/19 Range/Units 20:40 05:33 05:33 Neutrophils # 8.9 H (1.3-7.7) k/uL Lymphocytes # 0.7 L (1.0-4.8) k/uL PT 18.1 H (9.0-12.0) sec INR 1.8 H (<1.2) Potassium (3.5-5.1) mmol/L Chloride (98-107) mmol/L Carbon Dioxide (22-30) mmol/L BUN (7-17) mg/dL Glucose (74-99) mg/dL POC Glucose (mg/dL) 132 H (75-99) mg/dL Calcium (8.4-10.2) mg/dL 03/25/19 03/25/19 03/25/19 Range/Units 05:33 06:41 11:44 Neutrophils # (1.3-7.7) k/uL Lymphocytes # (1.0-4.8) k/uL PT (9.0-12.0) sec INR (<1.2) Potassium 3.2 L (3.5-5.1) mmol/L Chloride 96 L (98-107) mmol/L Carbon Dioxide 37 H (22-30) mmol/L BUN 18 H (7-17) mg/dL Glucose 160 H (74-99) mg/dL POC Glucose (mg/dL) 156 H 144 H (75-99) mg/dL Calcium 7.8 L (8.4-10.2) mg/dL 03/25/19 03/25/19 Range/Units 16:20 17:02 Neutrophils # (1.3-7.7) k/uL Lymphocytes # (1.0-4.8) k/uL PT (9.0-12.0) sec INR (<1.2) Potassium 3.4 L (3.5-5.1) mmol/L Chloride (98-107) mmol/L Carbon Dioxide (22-30) mmol/L BUN (7-17) mg/dL Glucose (74-99) mg/dL POC Glucose (mg/dL) 102 H (75-99) mg/dL Calcium (8.4-10.2) mg/dL Microbiology - Last 24 Hours (Table) 03/25/19 16:15 Sputum Culture - Preliminary Sputum Assessment and Plan (1) Diastolic CHF Current Visit: Yes Status: Acute Code(s): I50.30 - UNSPECIFIED DIASTOLIC (CONGESTIVE) HEART FAILURE SNOMED Code(s): 052089113 (2) Acute exacerbation of chronic bronchitis Current Visit: Yes Status: Acute Code(s): J20.9 - ACUTE BRONCHITIS, UNSPECIFIED SNOMED Code(s): 799143271 (3) COPD (chronic obstructive pulmonary disease) Current Visit: Yes Status: Acute Code(s): J44.9 - CHRONIC OBSTRUCTIVE PULMONARY DISEASE, UNSPECIFIED SNOMED Code(s): 14275619 (4) Hypoxia Current Visit: Yes Status: Acute Code(s): R09.02 - HYPOXEMIA SNOMED Code(s): 044043462 (5) History of coronary artery disease Current Visit: Yes Status: Acute Code(s): Z86.79 - PERSONAL HISTORY OF OTHER DISEASES OF THE CIRCULATORY SYSTEM SNOMED Code(s): 459993102 Plan: No significant change in the critical picture. Patient is to have moderate to severe dysplasia distress. Continue current medical therapy. I feel her symptoms are mostly pulmonary in nature
[2019-03-25] MEDS ORDERED: WARFARIN 3 MG TAB PO ONE (18:00)
[2019-03-25 20:38] LABS: Glucose,Whole Blood 127 mg/dL (75-99)
[2019-03-25] MEDS: MIRTAZAPINE 45 MG TABLET PO SCH (22:04)
[2019-03-25] MEDS: IPRATROPIUM-ALBUTEROL 3 ML NEB INHALATION PRN (23:31)
[2019-03-26] MEDS: methylPREDNISolone SOD SUCCI 125 MG/2 ML VIAL IV SCH ×5 (00:17→23:35)
[2019-03-26] MEDS: PIPERACILLIN-TAZOBACTAM 3.375 GM in SODIUM CHLORIDE 0.9% 100 ML IVPB SCH ×4 (00:18→23:34)
[2019-03-26] MEDS: FUROSEMIDE 100 MG in SODIUM CHLORIDE 0.9% 90 ML IV SCH ×2 (00:24→21:16)
[2019-03-26] MEDS ORDERED: Potassium Replacement Protocol 1 EACH MISC MISCELLANE PRN (00:50)
[2019-03-26] MEDS: POTASSIUM CHLORIDE 10 MEQ in WATER FOR INJECTION 1 100ML.BAG IVPB SCH ×3 (02:08→04:11)
[2019-03-26] MEDS: IPRATROPIUM-ALBUTEROL 3 ML NEB INHALATION PRN (03:27)
[2019-03-26] MEDS: INSULIN ASPART (NovoLOG) 100 UNIT/ML VIAL SQ SCH ×4 (06:34→21:18)
[2019-03-26 06:42] LABS: Glucose,Whole Blood 159 mg/dL (75-99)
--- NOTE | 2019-03-26 07:30 | XR ---
EXAMINATION TYPE: XR chest 1V DATE OF EXAM: 03/26/2019 COMPARISON: 03/25/2019 HISTORY: Chest pain TECHNIQUE: Single frontal view of the chest is obtained. FINDINGS: Stable reticulonodular infiltrates throughout both lung diana with small left-sided pleural effusion and diminished lung volumes. Relate clinically and progress studies are advised. The cardiac silhouette size is within normal limits. The osseous structures are intact. IMPRESSION: 1. Stable reticulonodular infiltrates throughout both lung diana with small left-sided pleural effu hay and diminished lung volumes. Relate clinically and progress studies are advised.
[2019-03-26] MEDS: FORMOTEROL FUMARATE 20 MCG/2 ML NEBU INHALATION SCH ×2 (07:43→19:41)
[2019-03-26] MEDS: IPRATROPIUM-ALBUTEROL 3 ML NEB INHALATION SCH ×4 (07:43→19:41)
[2019-03-26] MEDS: BUDESONIDE 1 MG/2 ML NEBU INHALATION SCH ×2 (07:43→19:41)
[2019-03-26] MEDS: PREGABALIN 75 MG CAP PO SCH ×2 (08:11→21:17)
[2019-03-26] MEDS: FERROUS SULFATE 325 MG TAB PO SCH (08:11)
[2019-03-26] MEDS: BACLOFEN 10 MG TAB PO SCH ×3 (08:11→21:17)
[2019-03-26] MEDS: lamoTRIgine 100 MG TAB PO SCH (08:11)
[2019-03-26] MEDS: METOPROLOL TARTRATE 50 MG TAB PO SCH ×2 (08:11→21:17)
[2019-03-26] MEDS: FLUoxetine HCL 20 MG CAP PO SCH (08:11)
[2019-03-26] MEDS: LINEZOLID 600 MG in DEXTROSE/WATER 1 300ML.BAG IVPB SCH ×2 (08:12→21:12)
[2019-03-26] MEDS: ENOXAPARIN 100 MG/ML SYRINGE SQ SCH (08:12)
[2019-03-26] MEDS: DICLOFENAC SODIUM 50 MG PO SCH ×2 (08:13→21:20)
[2019-03-26 08:14] LABS: African American GFR (CKD) >90 (>60 ml/min/1.73 sqM); Anion Gap 7 mmol/L; Blood Urea Nitrogen 24 mg/dL (7-17); Carbon Dioxide 34 mmol/L (22-30); Chloride 100 mmol/L (98-107); Glucose 149 mg/dL (74-99); Magnesium 2.3 mg/dL (1.6-2.3); Non-African American GFR(CKD) >90 (>60 ml/min/1.73 sqM); Potassium 4.2 mmol/L (3.5-5.1); Sodium 141 mmol/L (137-145)
[2019-03-26] MEDS: NYSTATIN 100,000 UNIT/GM POWD 15 GM TOPICAL SCH ×2 (08:14→21:18)
[2019-03-26 08:20] LABS: INR 4.1 (<1.2); Prothrombin Time 39.5 sec (9.0-12.0)
[2019-03-26 08:21] LABS: Basophils % (A) 0 %; Eosinophils % (A) 0 %; HCT 42.7 % (34.0-46.0); HGB 14.3 gm/dL (11.4-16.0); Lymphocytes # (A) 0.7 k/uL (1.0-4.8); Lymphocytes % (A) 11 %; MCH 32.4 pg (25.0-35.0); MCHC 33.6 g/dL (31.0-37.0); MCV 96.5 fL (80.0-100.0); Mean Platelet Volume 7.5; Monocytes # (A) 0.5 k/uL (0-1.0); Monocytes % (A) 7 %; Neutrophils # (A) 5.3 k/uL (1.3-7.7); Neutrophils % (A) 80 %; Platelet Count 320 k/uL (150-450); RBC 4.42 m/uL (3.80-5.40); RDW 14.4 % (11.5-15.5); WBC 6.6 k/uL (3.8-10.6)
[2019-03-26] MEDS: HYDROmorphone 0.5 MG/0.5 ML SYRINGE IVP PRN ×4 (08:54→23:33)
--- NOTE | 2019-03-26 09:24 | P.PN ---
Subjective Progress Note Date: 03/26/19 This is a 48-year-old female with history of pulmonary fibrosis, chronic respiratory failure and known ischemic heart disease with history of diastolic CHF. Admitted to the hospital with increasing shortness of breath and a history of some cough and sputum production and fevers. Her presentation is consistent with possible pneumonia superimposed on chronic lung disease. There may be a component of diastolic CHF. Patient was started on IV Lasix and the dose is reduced today. Continue with steroids and antibiotic therapy. We'll follow. 03/26/2019:his is a 48-year-old female who was admitted to the hospital with increasing shortness of breath and respiratory failure. Patient has chronic interstitial lung disease. Findings were consistent with interstitial lung disease with possible pneumonia and possible diastolic congestive heart failure. Patient has been on steroids, antibiotics, and also diuretics. Patient looks better today and appears to be less short of breath. Chest x-ray seemed to be showing somewhat improved picture. Her lab work showed normal white count and hemoglobin. INR is 4.1. Potassium is 4.28, creatinine is 0.48. Blood pressure is about 120/80. Patient is afebrile. Patient is on IV Lasix drip. Continue current medical therapy. Probably patient could be switched to IV bolus of Lasix within next 24 hours Objective - Vital Signs Vital signs: Vital Signs Temp 98 F 03/26/19 08:00 Pulse 68 03/26/19 08:12 Resp 17 03/26/19 08:00 BP 121/80 03/26/19 08:00 Pulse Ox 97 03/26/19 08:00 Intake & Output 03/25/19 03/26/19 03/26/19 18:59 06:59 18:59 Intake Total 1340 985 455 Output Total 1200 1320 320 Balance 140 -335 135 Weight 103.2 kg Intake: IV 1040 885 455 .9 240 80 40 Furosemide 100 mg In 55 15 Sodium Chloride 0.9% 90 ml @ 5 MG/HR 5 mls/hr IV .Q20H [facility] Rx#:[id number] Linezolid 600 mg In 300 150 300 Dextrose/Water 1 300ml. bag @ 150 mls/hr IVPB Q12HR [facility] Rx#:[id number] Piperacillin-Tazobactam 3 200 100 100 .375 gm In Sodium Chloride 0.9% 100 ml @ 25 mls/hr IVPB Q8HR [facility] Rx# :[id number] Potassium Chloride 10 meq 300 500 In Water For Injection 1 100ml.bag @ 100 mls/hr IVPB Q1HR [facility] Rx#: [id number] Intake, IV Titration 100 100 Amount Furosemide 100 mg In 100 100 Sodium Chloride 0.9% 90 ml @ 5 MG/HR 5 mls/hr IV .Q20H [facility] Rx#:[id number] Oral 200 Output: Urine 1200 1320 320 Other: Voiding Method Indwelling Catheter Indwelling Catheter Indwelling Catheter - Exam GENERAL EXAM: Patient is alert and appears to be more alert. Seemed to be in less discomfort HEENT: Normocephalic. Normal reaction of pupils, equal size, normal range of extraocular motion. No erythema or exudates in the throat. NECK: No masses, no nuchal rigidity. CHEST: No chest wall deformity. LUNGS: Initiated entry with wheezing and rhonchi HEART: S1 and S2 normal. ABDOMEN: No hepatosplenomegaly, normal bowel sounds, no guarding or rigidity. SKIN: No rashes CENTRAL NERVOUS SYSTEM: No focal deficits. EXTREMITIES: No cyanosis, clubbing or edema. - Labs CBC & Chem 7: 03/26/19 07:24 03/26/19 07:24 Labs: Abnormal Lab Results - Last 24 Hours (Table) 03/25/19 03/25/19 03/25/19 Range/Units 11:44 16:20 17:02 Lymphocytes # (1.0-4.8) k/uL PT (9.0-12.0) sec INR (<1.2) Potassium 3.4 L (3.5-5.1) mmol/L Carbon Dioxide (22-30) mmol/L BUN (7-17) mg/dL Creatinine (0.52-1.04) mg/dL Glucose (74-99) mg/dL POC Glucose (mg/dL) 144 H 102 H (75-99) mg/dL Calcium (8.4-10.2) mg/dL 03/25/19 03/25/19 03/26/19 Range/Units 20:27 23:53 06:31 Lymphocytes # (1.0-4.8) k/uL PT (9.0-12.0) sec INR (<1.2) Potassium 3.3 L (3.5-5.1) mmol/L Carbon Dioxide (22-30) mmol/L BUN (7-17) mg/dL Creatinine (0.52-1.04) mg/dL Glucose (74-99) mg/dL POC Glucose (mg/dL) 127 H 159 H (75-99) mg/dL Calcium (8.4-10.2) mg/dL 03/26/19 03/26/19 03/26/19 Range/Units 07:24 07:24 07:24 Lymphocytes # 0.7 L (1.0-4.8) k/uL PT 39.5 H (9.0-12.0) sec INR 4.1 H (<1.2) Potassium (3.5-5.1) mmol/L Carbon Dioxide 34 H (22-30) mmol/L BUN 24 H (7-17) mg/dL Creatinine 0.48 L (0.52-1.04) mg/dL Glucose 149 H (74-99) mg/dL POC Glucose (mg/dL) (75-99) mg/dL Calcium 8.0 L (8.4-10.2) mg/dL Microbiology - Last 24 Hours (Table) 03/25/19 16:15 Gram Stain - Preliminary Sputum Sputum Culture - Preliminary Assessment and Plan (1) Diastolic CHF Current Visit: Yes Status: Acute Code(s): I50.30 - UNSPECIFIED DIASTOLIC (CONGESTIVE) HEART FAILURE SNOMED Code(s): 465727650 (2) Acute exacerbation of chronic bronchitis Current Visit: Yes Status: Acute Code(s): J20.9 - ACUTE BRONCHITIS, UNSPECIFIED SNOMED Code(s): 468295463 (3) COPD (chronic obstructive pulmonary disease) Current Visit: Yes Status: Acute Code(s): J44.9 - CHRONIC OBSTRUCTIVE PULMONARY DISEASE, UNSPECIFIED SNOMED Code(s): 95501884 (4) Hypoxia Current Visit: Yes Status: Acute Code(s): R09.02 - HYPOXEMIA SNOMED Code(s): 860458212 (5) History of coronary artery disease Current Visit: Yes Status: Acute Code(s): Z86.79 - PERSONAL HISTORY OF OTHER DISEASES OF THE CIRCULATORY SYSTEM SNOMED Code(s): 249297816 Plan: No significant change in the critical picture. Patient is to have moderate to severe dysplasia distress. Continue current medical therapy. I feel her symptoms are mostly pulmonary in nature. 03/26/20 19: Patient appears to be feeling better and appears to be in less distress. Patient is diuresing. Chest x-ray also shows some improvement. Continue current medical therapy with diuretics, steroids and antibiotics
--- NOTE | 2019-03-26 09:59 | P.PN ---
Subjective Progress Note Date: 03/26/19 Principal diagnosis: acute hypoxic respiratory failure, multifactorial. 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 She is familiar to our service from previous admissions for complications related to recurrent pulmonary infections. patient presented on 03/23/2019 with complaints of severe shortness of breath, she had been sick for a week, and then started a week ago with nausea and vomiting, patient went to see her PCP on or Sunday, and she was very short of breath, she was told that there is very poor air entry and bilateral bases, and patient was advised to come to the hospital. Patient was febrile, diaphoretic, he states she has been bringing up colored phlegm, pos sibly hemoptysis. Has been complaining of chest tightness.she was seen in the ER on 03/19/2019 for nausea, vomiting and diarrhea. She also had some low-grade fevers, stool sample for C. diff was negative. She was given IV hydration, antiemetics, and she was discharged home. she returned for evaluation a 03/23/2019 severe shortness of breath, she stated her pulse ox was only 54% on 6 L/m of oxygen, she normally wears 3 L, but 6 L is as high as her home concentrator will go. chest x-ray showed vessel congestion and pulmonary edema and possibility of tiny bilateral pleural effusions. she has had low-grade fevers, she required placement on Airvo which is currently at 90 L or 60% FiO2, and her pulse ox is barely 88-89%. Her breathing is tachypneic and labored, she was started on IV Lasix at 40 mg once daily, and antibiotic coverage in the form of Zithromax in addition to IV steroids, follow-up chest x-ray today still shows extensive diffuse interstitial opacities. influenza screen was negative, blood work has been reviewed, showing white blood cell, 13.6, hemoglobin of 15.2, INR was subtherapeutic at 1.0, electrolytes and renal profile were unremarkable, first troponin was 0.030, and second troponin was 0.018, proBNP was elevated at 2610. Patient was reevaluated today on 03/25/2019, remains in the intensive care unit, presently on BiPAP, IPAP of 12 and EPAP of 4, and FiO2 was 90% I cut it down to 50%. Patient remains on Lasix drip and she is in a negative balance of about 3 L. Feeling better, breathing easier, but still on BiPAP at this point.chest x- ray showed some improvement, but continues to show bilateral interstitial infiltrates. Or possibly interstitial edema.labs today were reviewed she had a relatively normal CBC. INR is 1.8 potassium is a bit low at 3.2 renal profile is normal bicarb is 37.echocardiogram showed good LV function, no significant valvular disease, right-sided ventricular pressures are normal.patient is feeling better today, breathing easier, is at bedside, and the patient is sleeping quietly but arousable and follows simple instructions. Patient was reevaluated today on 03/26/2019, remains in the intensive care unit, presently on high flow oxygen using airvo. She is on high flow and high FiO2, however I cut down the flow 2 50 L/m, and the FiO2 down to 50%. O2 saturation is about 94%. Patient is hemodynamically stable, feeling better, breathing easier, chest x-ray continues to show bilateral interstitial edema/infiltrates, but definite improvement noted compared to the last few days. Hence I plan to continue the Lasix, and I plan to continue antibiotics steroids and bronchodilators. Objective - Vital Signs Vital signs: Vital Signs Temp 98 F 03/26/19 08:00 Pulse 68 03/26/19 08:12 Resp 17 03/26/19 08:00 BP 121/80 03/26/19 08:00 Pulse Ox 97 03/26/19 08:00 Intake & Output 03/25/19 03/26/19 03/26/19 18:59 06:59 18:59 Intake Total 1340 985 480 Output Total 1200 1320 455 Balance 140 -335 25 Weight 103.2 kg Intake: IV 1040 885 480 .9 240 80 60 Furosemide 100 mg In 55 20 Sodium Chloride 0.9% 90 ml @ 5 MG/HR 5 mls/hr IV .Q20H [facility] Rx#:[id number] Linezolid 600 mg In 300 150 300 Dextrose/Water 1 300ml. bag @ 150 mls/hr IVPB Q12HR [facility] Rx#:[id number] Piperacillin-Tazobactam 3 200 100 100 .375 gm In Sodium Chloride 0.9% 100 ml @ 25 mls/hr IVPB Q8HR [facility] Rx# :[id number] Potassium Chloride 10 meq 300 500 In Water For Injection 1 100ml.bag @ 100 mls/hr IVPB Q1HR [facility] Rx#: [id number] Intake, IV Titration 100 100 Amount Furosemide 100 mg In 100 100 Sodium Chloride 0.9% 90 ml @ 5 MG/HR 5 mls/hr IV .Q20H [facility] Rx#:[id number] Oral 200 Output: Urine 1200 1320 455 Other: Voiding Method Indwelling Catheter Indwelling Catheter Indwelling Catheter - Exam GENERAL EXAM: revealed 48-year-old female, obese, on airvo, high flow FiO2 HEAD: Normocephalic/atraumatic. EENT: PERRLA, EOMI, neck is, moist mucous membranes, no neck masses, no JVD, no stridor. CHEST: No chest wall deformity. Symmetrical expansion. LUNGS: Equal air entry with decreased air entry at the bases, wheezing on forced expiratory maneuver noted. Especially on the left side. CVS: Regular rate and rhythm, normal S1 and S2, no gallops, no murmurs, no rubs ABDOMEN: Soft, nontender. No hepatosplenomegaly, normal bowel sounds, no guarding or rigidity. EXTREMITIES: No clubbing, no edema, no cyanosis, 2+ pulses and upper and lower extremities. MUSCULOSKELETAL: Muscle strength and tone normal. SPINE: No scoliosis or deformity SKIN: No rashes CENTRAL NERVOUS SYSTEM: alert oriented 3 focal neurologic deficits. PSYCHIATRIC: normal mood, blunt affect, intact mental status. - Labs CBC & Chem 7: 03/26/19 07:24 03/26/19 07:24 Labs: Abnormal Lab Results - Last 24 Hours (Table) 03/25/19 03/25/19 03/25/19 Range/Units 11:44 16:20 17:02 Lymphocytes # (1.0-4.8) k/uL PT (9.0-12.0) sec INR (<1.2) Potassium 3.4 L (3.5-5.1) mmol/L Carbon Dioxide (22-30) mmol/L BUN (7-17) mg/dL Creatinine (0.52-1.04) mg/dL Glucose (74-99) mg/dL POC Glucose (mg/dL) 144 H 102 H (75-99) mg/dL Calcium (8.4-10.2) mg/dL 03/25/19 03/25/19 03/26/19 Range/Units 20:27 23:53 06:31 Lymphocytes # (1.0-4.8) k/uL PT (9.0-12.0) sec INR (<1.2) Potassium 3.3 L (3.5-5.1) mmol/L Carbon Dioxide (22-30) mmol/L BUN (7-17) mg/dL Creatinine (0.52-1.04) mg/dL Glucose (74-99) mg/dL POC Glucose (mg/dL) 127 H 159 H (75-99) mg/dL Calcium (8.4-10.2) mg/dL 03/26/19 03/26/19 03/26/19 Range/Units 07:24 07:24 07:24 Lymphocytes # 0.7 L (1.0-4.8) k/uL PT 39.5 H (9.0-12.0) sec INR 4.1 H (<1.2) Potassium (3.5-5.1) mmol/L Carbon Dioxide 34 H (22-30) mmol/L BUN 24 H (7-17) mg/dL Creatinine 0.48 L (0.52-1.04) mg/dL Glucose 149 H (74-99) mg/dL POC Glucose (mg/dL) (75-99) mg/dL Calcium 8.0 L (8.4-10.2) mg/dL Microbiology - Last 24 Hours (Table) 03/25/19 16:15 Gram Stain - Preliminary Sputum Sputum Culture - Preliminary Assessment and Plan Assessment: #1. acute on chronic hypoxemic respiratory failure related to extensive interstitial infiltrates, secondary to diastoliccongestive heart failure and possibility of pneumonia/underlying pneumonia is not entirely ruled out. #2. Recent illness with nausea vomiting and diarrhea, stool for C. diff was negative #3. history of COPD, advanced, on home oxygen #4. History of recurrent pulmonary infections, secondary to Pseudomonas, MRSA #5. History of coronary artery disease #6. History of DVT and pulmonary embolus, on chronic anticoagulation on Coumadin, and patient's INR is subtherapeutic at 1.0 on admission #7. Previous history of myocardial infarction #8. History of congestive heart failure #9. History of hypertension #10. Fibromyalgia #11. History of degenerative disc disease and chronic pain syndrome #12. History of CVA #13. Chronic and ongoing nicotinedependence Recommendation: Continue oxygen at high flow and titrate accordingly. Continue Lasix at 5 mg per hour. Continue antibiotics, Continue steroids, Continue bronchodilators, Intermittent use of BiPAP as needed, Continue to monitor in the ICU, Updated the patient and her on her condition. We'll continue to follow. Time with Patient: Less than 30
--- NOTE | 2019-03-26 10:16 | P.PN ---
Subjective this is a pleasant 48 years old femalewith past medical history of COPD, congestive heart failure on Bumex at home, DVT, hyperlipidemia, coronary artery disease, hypertension, pulmonary embolism on anticoagulation,chronic respiratory failure on 6 L oxygen at home, hysterectomy, hypothyroidism, polycythemia, fibromyalgia, bipolar disorder. Recurrent/chronic right sided chest pain, pseudomonas pulmonary infection. Presents because of worsening dyspneawith cough and yellowish phlegm for 2 weeks duration associated with nausea vomiting and loose bowel movements on admission patient has fever of 100.3. She was hypoxic with saturating 88-89on FiO2 of 90%. Labs showing leukocytosis of 13.6 K. BMP, liver enzymes and troponin were unremarkable. ProBNP is 2016.chest x-ray: Diffuse interstitial opacities area EKG shows sinus tachycardia at 109. patient received several pain medications including morphine and Dilaudid, she received normal saline IV fluid and was started on Solu-Medrol 60 mg. also patient was started on Lasix 40 mg every 8 hours, we'll lower the dose to 40 mg daily MAPS were checked and patient currently on Tylenol number 4, and lyrica, patient was started on Dilaudid 1 mg, lower the dose to half milligrams. Discontinue Fioricet and Xanax 03/25/2019 yesterday evening patient was transferred to the ICU for respiratory distress needing more breathing support and BiPAP machine. Today patient is seen and examined in the ICU, she is continuously on BiPAP machine and she was sleepy she could not provide information.she is saturating 93%. Mr. Markham looks stable. Her labs from today including CBC stable findings with bilateral interstitial edema and/or infiltrates. Patient in the meantime continue with Zyvox and Zosyn, on Coumadin with Lovenox bridging, insulin Medrol 60 mg and IV Lasix drip. Echo showed ejection fraction of 55-60%. 03/26/2019 Patient the ICU, her breathing is slowly improving, this morning she is over the BiPAP and placed on high flow nasal cannula with oxygen saturation of 97%. Tra ce of vitals are stable. Patient denies chest pain. She looks lethargic but more awake compared to yesterday. Her pain is controlled. CBC and BMP are unremarkable. Sugar control. INR is 4.1, stop the Lovenox which was bridging dose. Repeat chest x-ray this morning per radiology shows stable r eticulonodular infiltrates throughout both lung diana with a small left pleural effusion area chest x-ray is reviewed by myself. Patient remains on Zyvox and Zosyn, she remains on Lasix drip at 5, she remains on steroids. review of system: HEENT: No recent visual problems or hearing problems. Denied any sore throat. CARDIOVASCULAR: No orthopnea, PND, no palpitations, no syncope. GASTROINTESTINAL: No diarrhea, no nausea, no vomiting, no abdominal pain. Normoactive bowel sounds. NEUROLOGICAL: No headaches, no weakness, no numbness. HEMATOLOGICAL: Denies any bleeding or petechiae. GENITOURINARY: Denies any burning micturition, frequency, or urgency. MUSCULOSKELETAL/RHEUMATOLOGICAL: Denies any joint pain, swelling, or any muscle pain. ENDOCRINE: Denies any polyuria or polydipsia. Active Medications Generic Name Dose Route Start Last Admin Trade Name Freq PRN Reason Stop Dose Admin Acetaminophen/Codeine Phosphate 1 each 03/24/19 12:19 Tylenol #3 PO Q6H PRN MODERATE Pain Albuterol/Ipratropium 3 ml 03/24/19 16:00 03/26/19 07:43 Duoneb 0.5 Mg-3 Mg/3 Ml Soln INHALATION 3 ml RT-QID AGNIESZKA Administration Albuterol/Ipratropium 3 ml 03/24/19 12:59 03/26/19 03:27 Duoneb 0.5 Mg-3 Mg/3 Ml Soln INHALATION 3 ml RT-Q2H PRN Administration Shortness Of Breath Or Wheezing Baclofen 20 mg 03/23/19 22:00 03/26/19 08:11 Lioresal PO 20 mg TID AGNIESZKA Administration Budesonide 1 mg 03/24/19 20:00 03/26/19 07:43 Pulmicort INHALATION 1 mg RT-BID AGNIESZKA Administration Diphenoxylate HCl/Atropine 1 each 03/23/19 17:33 Lomotil PO QID PRN Loose Stool Enoxaparin Sodium 100 mg 03/24/19 21:00 03/26/19 08:12 Lovenox SQ 100 mg BID AGNIESZKA Administration Ergocalciferol 50,000 unit 03/27/19 09:00 Vitamin D2 PO TH [facility] Ferrous Sulfate 325 mg 03/25/19 09:00 03/26/19 08:11 Feosol PO 325 mg DAILY AGNIESZKA Administration Fluoxetine HCl 20 mg 03/25/19 09:00 03/26/19 08:11 Prozac PO 20 mg DAILY AGNIESZKA Administration Formoterol Fumarate 20 mcg 03/24/19 20:00 03/26/19 07:43 Perforomist INHALATION 20 mcg RT-BID AGNIESZKA Administration Hydromorphone HCl 0.5 mg 03/24/19 12:23 03/26/19 08:54 Dilaudid IVP 0.5 mg Q4HR PRN Administration SEVERE Pain Piperacillin Sod/Tazobactam 100 mls @ 25 mls/hr 03/24/19 10:15 03/26/19 08:12 Sod 3.375 gm/ Sodium Chloride IVPB 25 mls/hr Q8HR AGNIESZKA Administration Linezolid 600 mg/ IV Solution 300 mls @ 150 mls/hr 03/24/19 13:15 03/26/19 08:12 IVPB 150 mls/hr Q12HR AGNIESZKA Administration Protocol Furosemide 100 mg/ Sodium 100 mls @ 5 mls/hr 03/24/19 15:15 03/26/19 00:24 Chloride IV 10 mg/hr .Q20H AGNIESZKA 10 mls/hr Administration 5 MG/HR Insulin Aspart 0 unit 03/24/19 07:30 03/26/19 06:34 Novolog SQ 3 unit ACHS AGNIESZKA Administration Protocol Lamotrigine 200 mg 03/25/19 09:00 03/26/19 08:11 Lamictal PO 200 mg DAILY AGNIESZKA Administration Lidocaine HCl 1 applic 03/24/19 12:19 Lmx 4 TOPICAL DAILY PRN Pain Lorazepam 1 mg 03/23/19 15:58 03/25/19 16:40 Ativan IV 1 mg Q4HR PRN Administration Anxiety Methylprednisolone Sodium Succinate 60 mg 03/23/19 19:00 03/26/19 06:26 Solu-Medrol IV 60 mg Q6HR AGNIESZKA Administration Metoprolol Tartrate 50 mg 03/23/19 21:00 03/26/19 08:11 Lopressor PO 50 mg BID AGNIESZKA Administration Mirtazapine 45 mg 03/23/19 21:00 03/25/19 22:04 Remeron PO 45 mg HS AGNIESZKA Administration Miscellaneous Information 1 each 03/23/19 17:35 Coumadin Per Pharmacy MISCELLANE DIRECTED PRN Per Protocol Miscellaneous Information 1 each 03/25/19 06:12 Potassium Per Protocol MISCELLANE DAILY PRN Per Protocol Protocol Miscellaneous Information 1 each 03/26/19 00:50 Potassium Per Protocol MISCELLANE DAILY PRN Per Protocol Protocol Non-Formulary Medication 50 mg 03/23/19 21:00 03/26/19 08:13 Diclofenac Sodium [Diclofenac Sodium] PO Not Given BID AGNIESZKA Nystatin 1 applic 03/24/19 21:00 03/26/19 08:14 Mycostatin Powder TOPICAL 1 applic BID AGNIESZKA Administration Ondansetron HCl 4 mg 03/24/19 10:14 03/25/19 16:31 Zofran IVP 4 mg Q6HR PRN Administration Nausea And Vomiting Pregabalin 150 mg 03/23/19 21:00 03/26/19 08:11 Lyrica PO 150 mg BID AGNIESZKA Administration Objective - Vital Signs Vital signs: Vital Signs Temp 98 F 03/26/19 08:00 Pulse 68 03/26/19 08:12 Resp 17 03/26/19 08:00 BP 121/80 03/26/19 08:00 Pulse Ox 97 03/26/19 08:00 Intake & Output 03/25/19 03/26/19 03/26/19 18:59 06:59 18:59 Intake Total 1340 985 480 Output Total 1200 1320 455 Balance 140 -335 25 Weight 103.2 kg Intake: IV 1040 885 480 .9 240 80 60 Furosemide 100 mg In 55 20 Sodium Chloride 0.9% 90 ml @ 5 MG/HR 5 mls/hr IV .Q20H AGNIESZKA Rx#:[id number] Linezolid 600 mg In 300 150 300 Dextrose/Water 1 300ml. bag @ 150 mls/hr IVPB Q12HR AGNIESZKA Rx#:[id number] Piperacillin-Tazobactam 3 200 100 100 .375 gm In Sodium Chloride 0.9% 100 ml @ 25 mls/hr IVPB Q8HR AGNIESZKA Rx# :[id number] Potassium Chloride 10 meq 300 500 In Water For Injection 1 100ml.bag @ 100 mls/hr IVPB Q1HR AGNIESZKA Rx#: [id number] Intake, IV Titration 100 100 Amount Furosemide 100 mg In 100 100 Sodium Chloride 0.9% 90 ml @ 5 MG/HR 5 mls/hr IV .Q20H AGNIESZKA Rx#:[id number] Oral 200 Output: Urine 1200 1320 455 Other: Voiding Method Indwelling Catheter Indwelling Catheter Indwelling Catheter - Exam -GENERAL: The patient is on BiPAP machine HEENT: Pupils are round and equally reacting to light. EOMI. No scleral icterus. No conjunctival pallor. Normocephalic, atraumatic. No pharyngeal erythema. No thyromegaly. CARDIOVASCULAR: S1 and S2 present. No murmurs, rubs, or gallops. -PULMONARY: Chest is clear to auscultation,bilateral wheezing and crepitation with decreased air entry on both side ABDOMEN: Soft, nontender, nondistended, normoactive bowel sounds. No palpable organomegaly. MUSCULOSKELETAL: No joint swelling or deformity. EXTREMITIES: No cyanosis, clubbing, or pedal edema. NEUROLOGICAL: Gross neurological examination did not reveal any focal deficits. SKIN: No rashes. No petechiae - Labs CBC & Chem 7: 03/26/19 07:24 03/26/19 07:24 Labs: Abnormal Lab Results - Last 24 Hours (Table) 03/25/19 03/25/19 03/25/19 Range/Units 11:44 16:20 17:02 Lymphocytes # (1.0-4.8) k/uL PT (9.0-12.0) sec INR (<1.2) Potassium 3.4 L (3.5-5.1) mmol/L Carbon Dioxide (22-30) mmol/L BUN (7-17) mg/dL Creatinine (0.52-1.04) mg/dL Glucose (74-99) mg/dL POC Glucose (mg/dL) 144 H 102 H (75-99) mg/dL Calcium (8.4-10.2) mg/dL 03/25/19 03/25/19 03/26/19 Range/Units 20:27 23:53 06:31 Lymphocytes # (1.0-4.8) k/uL PT (9.0-12.0) sec INR (<1.2) Potassium 3.3 L (3.5-5.1) mmol/L Carbon Dioxide (22-30) mmol/L BUN (7-17) mg/dL Creatinine (0.52-1.04) mg/dL Glucose (74-99) mg/dL POC Glucose (mg/dL) 127 H 159 H (75-99) mg/dL Calcium (8.4-10.2) mg/dL 03/26/19 03/26/19 03/26/19 Range/Units 07:24 07:24 07:24 Lymphocytes # 0.7 L (1.0-4.8) k/uL PT 39.5 H (9.0-12.0) sec INR 4.1 H (<1.2) Potassium (3.5-5.1) mmol/L Carbon Dioxide 34 H (22-30) mmol/L BUN 24 H (7-17) mg/dL Creatinine 0.48 L (0.52-1.04) mg/dL Glucose 149 H (74-99) mg/dL POC Glucose (mg/dL) (75-99) mg/dL Calcium 8.0 L (8.4-10.2) mg/dL Microbiology - Last 24 Hours (Table) 03/25/19 16:15 Gram Stain - Preliminary Sputum Sputum Culture - Preliminary Assessment and Plan Assessment: diffuse interstitial pneumonia systemic inflammatory response with tachycardia, tachypnea and fever sepsis secondary to above Acute on a chronic hypoxic respiratory failure, at home she was on 6 L oxygen and she needs more on admission generalized weakness and de-conditioning chronic Right-sided pleuritic chest pain adrenal insufficiency on steroid taper History of PE on anticoagulation History of pseudomonas infection in her pulmonary passages COPD History of congestive heart failure Hyperlipidemia History of coronary artery disease Hypertension History of hysterectomy Hypothyroidism History of fibromyalgia and bipolar disorder Plan: this is a pleasant 48 years old female who presents with pneumonia and respiratory failure. Continue with Zosyn and Zyvox. Follow-up sputum culture. Pain management. Oxygen therapy. continue with warfarin and Lovenox bridging, continue with Lasix IV and some limited to Labs and medication were reviewed.. Continue same treatment. Continue with symptomatic treatment. Resume home medication. Monitor lytes and vitals. DVT and GI prophylaxis. Further recommendations of the clinical course of the patient DVT prophylaxis: on warfarin and Lovenox bridging GI Prophylaxis: Pepcid Prognosis is guarded
[2019-03-26 12:01] LABS: Glucose,Whole Blood 138 mg/dL (75-99)
[2019-03-26 17:00] LABS: Glucose,Whole Blood 123 mg/dL (75-99)
[2019-03-26] MEDS ORDERED: WARFARIN 0.5 MG TAB PO ONE (18:00)
[2019-03-26 21:10] LABS: Glucose,Whole Blood 150 mg/dL (75-99)
[2019-03-26] MEDS: MIRTAZAPINE 45 MG TABLET PO SCH (21:17)
[2019-03-27 06:00] LABS: Basophils % (A) 0 %; Eosinophils % (A) 0 %; HCT 45.9 % (34.0-46.0); HGB 15.7 gm/dL (11.4-16.0); Lymphocytes % (A) 13 %; MCH 32.7 pg (25.0-35.0); MCHC 34.3 g/dL (31.0-37.0); MCV 95.4 fL (80.0-100.0); Mean Platelet Volume 7.4; Monocytes # (A) 0.7 k/uL (0-1.0); Monocytes % (A) 9 %; Neutrophils # (A) 5.9 k/uL (1.3-7.7); Neutrophils % (A) 77 %; Platelet Count 403 k/uL (150-450); RBC 4.81 m/uL (3.80-5.40); RDW 14.2 % (11.5-15.5); WBC 7.7 k/uL (3.8-10.6)
[2019-03-27 06:29] LABS: Prothrombin Time 28.5 sec (9.0-12.0)
[2019-03-27 06:32] LABS: African American GFR (CKD) >90 (>60 ml/min/1.73 sqM); Anion Gap 7 mmol/L; Blood Urea Nitrogen 27 mg/dL (7-17); Calcium 8.2 mg/dL (8.4-10.2); Carbon Dioxide 36 mmol/L (22-30); Chloride 101 mmol/L (98-107); Glucose 157 mg/dL (74-99); Magnesium 2.5 mg/dL (1.6-2.3); Non-African American GFR(CKD) >90 (>60 ml/min/1.73 sqM); Potassium 3.3 mmol/L (3.5-5.1); Sodium 144 mmol/L (137-145)
[2019-03-27] MEDS: methylPREDNISolone SOD SUCCI 125 MG/2 ML VIAL IV SCH ×2 (06:33→11:15)
[2019-03-27] MEDS ORDERED: Potassium Replacement Protocol 1 EACH MISC MISCELLANE PRN (06:41)
[2019-03-27] MEDS: HYDROmorphone 0.5 MG/0.5 ML SYRINGE IVP PRN ×3 (07:15→15:19)
[2019-03-27] MEDS: INSULIN ASPART (NovoLOG) 100 UNIT/ML VIAL SQ SCH ×2 (07:15→12:17)
[2019-03-27 07:17] LABS: Glucose,Whole Blood 204 mg/dL (75-99)
[2019-03-27] MEDS: FORMOTEROL FUMARATE 20 MCG/2 ML NEBU INHALATION SCH (07:19)
[2019-03-27] MEDS: IPRATROPIUM-ALBUTEROL 3 ML NEB INHALATION SCH ×3 (07:20→15:09)
[2019-03-27] MEDS: BUDESONIDE 1 MG/2 ML NEBU INHALATION SCH (07:20)
[2019-03-27] MEDS ORDERED: POTASSIUM CHLORIDE 20 MEQ in WATER FOR INJECTION 1 100ML.BAG IVPB SCH (07:30)
[2019-03-27] MEDS ORDERED: POTASSIUM CHLORIDE 10 MEQ in WATER FOR INJECTION 1 100ML.BAG IV SCH (08:00)
[2019-03-27] MEDS: PIPERACILLIN-TAZOBACTAM 3.375 GM in SODIUM CHLORIDE 0.9% 100 ML IVPB SCH ×2 (08:52→16:09)
[2019-03-27] MEDS: METOPROLOL TARTRATE 50 MG TAB PO SCH (08:52)
[2019-03-27] MEDS: LINEZOLID 600 MG in DEXTROSE/WATER 1 300ML.BAG IVPB SCH (08:52)
[2019-03-27] MEDS: FERROUS SULFATE 325 MG TAB PO SCH (08:52)
[2019-03-27] MEDS: PREGABALIN 75 MG CAP PO SCH (08:53)
[2019-03-27] MEDS: FLUoxetine HCL 20 MG CAP PO SCH (08:53)
[2019-03-27] MEDS: BACLOFEN 10 MG TAB PO SCH ×2 (08:53→15:19)
[2019-03-27] MEDS: NYSTATIN 100,000 UNIT/GM POWD 15 GM TOPICAL SCH (08:54)
[2019-03-27] MEDS: lamoTRIgine 100 MG TAB PO SCH (08:54)
[2019-03-27] MEDS: POTASSIUM CHLORIDE ER 20 MEQ TAB.ER PO SCH ×2 (08:54→09:55)
[2019-03-27] MEDS: DICLOFENAC SODIUM 50 MG PO SCH (08:55)
[2019-03-27] MEDS ORDERED: ERGOCALCIFEROL 50,000 UNIT CAP PO SCH (09:00)
--- NOTE | 2019-03-27 09:47 | P.PN ---
Subjective Progress Note Date: 03/27/19 This is a 48-year-old female with history of pulmonary fibrosis, chronic respiratory failure and known ischemic heart disease with history of diastolic CHF. Admitted to the hospital with increasing shortness of breath and a history of some cough and sputum production and fevers. Her presentation is consistent with possible pneumonia superimposed on chronic lung disease. There may be a component of diastolic CHF. Patient was started on IV Lasix and the dose is reduced today. Continue with steroids and antibiotic therapy. We'll follow. 03/26/2019:his is a 48-year-old female who was admitted to the hospital with increasing shortness of breath and respiratory failure. Patient has chronic interstitial lung disease. Findings were consistent with interstitial lung disease with possible pneumonia and possible diastolic congestive heart failure. Patient has been on steroids, antibiotics, and also diuretics. Patient looks better today and appears to be less short of breath. Chest x-ray seemed to be showing somewhat improved picture. Her lab work showed normal white count and hemoglobin. INR is 4.1. Potassium is 4.28, creatinine is 0.48. Blood pressure is about 120/80. Patient is afebrile. Patient is on IV Lasix drip. Continue current medical therapy. Probably patient could be switched to IV bolus of Lasix within next 24 hours. 03/27/2019: This 48-year-old female with history of pulmonary fibrosis, chronic restrictive failure and also ischemic heart disease and diastolic CHF was admitted to the hospital with increasing shortness of breath. Patient has been treated with IV Lasix drip antibiotic and steroids. She seemed to be feeling better. Lungs appeared clear compared to yesterday. Vital signs are stable. Overall she seemed to be doing well. Continue current medical therapy. Lasix drip could be changed to boluses of IV Lasix. Objective - Vital Signs Vital signs: Vital Signs Temp 97.9 F 03/27/19 08:00 Pulse 69 03/27/19 09:00 Resp 19 03/27/19 09:00 BP 127/81 03/27/19 09:00 Pulse Ox 95 03/27/19 09:15 Intake & Output 03/26/19 03/27/19 03/27/19 18:59 06:59 18:59 Intake Total 780 570 375 Output Total 1260 1230 375 Balance -480 -660 0 Weight 102.1 kg Intake: IV 680 570 225 .9 220 160 60 Furosemide 100 mg In 60 60 15 Sodium Chloride 0.9% 90 ml @ 5 MG/HR 5 mls/hr IV .Q20H AGNIESZKA Rx#:[id number] Linezolid 600 mg In 300 150 100 Dextrose/Water 1 300ml. bag @ 150 mls/hr IVPB Q12HR AGNIESZKA Rx#:[id number] Piperacillin-Tazobactam 3 100 200 50 .375 gm In Sodium Chloride 0.9% 100 ml @ 25 mls/hr IVPB Q8HR AGNIESZKA Rx# :[id number] Intake, IV Titration 100 100 Amount Furosemide 100 mg In 100 Sodium Chloride 0.9% 90 ml @ 5 MG/HR 5 mls/hr IV .Q20H AGNIESZKA Rx#:[id number] Potassium Chloride 10 meq 100 In Water For Injection 1 100ml.bag @ 100 mls/hr IV Q1HR AGNIESZKA Rx#:[id number] Oral 50 Output: Urine 1260 1230 375 Other: Voiding Method Indwelling Catheter Indwelling Catheter Indwelling Catheter - Exam GENERAL EXAM: Patient is alert and appears to be more alert. Seemed to be in less discomfort HEENT: Normocephalic. Normal reaction of pupils, equal size, normal range of extraocular motion. No erythema or exudates in the throat. NECK: No masses, no nuchal rigidity. CHEST: No chest wall deformity. LUNGS: Initiated entry with wheezing and rhonchi HEART: S1 and S2 normal. ABDOMEN: No hepatosplenomegaly, normal bowel sounds, no guarding or rigidity. SKIN: No rashes CENTRAL NERVOUS SYSTEM: No focal deficits. EXTREMITIES: No cyanosis, clubbing or edema. - Labs CBC & Chem 7: 03/27/19 05:05 03/27/19 05:05 Labs: Abnormal Lab Results - Last 24 Hours (Table) 03/26/19 03/26/19 03/26/19 Range/Units 11:49 16:49 20:58 PT (9.0-12.0) sec INR (<1.2) Potassium (3.5-5.1) mmol/L Carbon Dioxide (22-30) mmol/L BUN (7-17) mg/dL Glucose (74-99) mg/dL POC Glucose (mg/dL) 138 H 123 H 150 H (75-99) mg/dL Calcium (8.4-10.2) mg/dL Magnesium (1.6-2.3) mg/dL 03/27/19 03/27/19 03/27/19 Range/Units 05:05 05:05 07:05 PT 28.5 H (9.0-12.0) sec INR 3.0 H (<1.2) Potassium 3.3 L (3.5-5.1) mmol/L Carbon Dioxide 36 H (22-30) mmol/L BUN 27 H (7-17) mg/dL Glucose 157 H (74-99) mg/dL POC Glucose (mg/dL) 204 H (75-99) mg/dL Calcium 8.2 L (8.4-10.2) mg/dL Magnesium 2.5 H (1.6-2.3) mg/dL Microbiology - Last 24 Hours (Table) 03/25/19 16:15 Gram Stain - Preliminary Sputum Sputum Culture - Preliminary Assessment and Plan (1) Diastolic CHF Current Visit: Yes Status: Acute Code(s): I50.30 - UNSPECIFIED DIASTOLIC (CONGESTIVE) HEART FAILURE SNOMED Code(s): 812809206 (2) Acute exacerbation of chronic bronchitis Current Visit: Yes Status: Acute Code(s): J20.9 - ACUTE BRONCHITIS, UNSPECIFIED SNOMED Code(s): 350988687 (3) COPD (chronic obstructive pulmonary disease) Current Visit: Yes Status: Acute Code(s): J44.9 - CHRONIC OBSTRUCTIVE PULMONARY DISEASE, UNSPECIFIED SNOMED Code(s): 69974840 (4) Hypoxia Current Visit: Yes Status: Acute Code(s): R09.02 - HYPOXEMIA SNOMED Code(s): 798891905 (5) History of coronary artery disease Current Visit: Yes Status: Acute Code(s): Z86.79 - PERSONAL HISTORY OF OTHER DISEASES OF THE CIRCULATORY SYSTEM SNOMED Code(s): 943274653 Plan: Overall patient seemed to be showing improvement. We'll may be able to switch to IV Lasix boluses. Continue the rest of the medication. 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
--- NOTE | 2019-03-27 10:34 | XR ---
EXAMINATION TYPE: XR chest 1V portable DATE OF EXAM: 03/27/2019 COMPARISON: Prior chest x-ray 03/26/2019 HISTORY: Congestive heart failure TECHNIQUE: Single frontal view of the chest is obtained. FINDINGS: Patient is rotated and there are overlying cardiac leads. The heart is enlarged. Central v ascularity and interstitium are improved. No evident pneumothorax or pleural effusion. IMPRESSION: Improvement in patient's volume status. Persistent cardiomegaly.
--- NOTE | 2019-03-27 11:04 | P.PN ---
Subjective this is a pleasant 48 years old femalewith past medical history of COPD, congestive heart failure on Bumex at home, DVT, hyperlipidemia, coronary artery disease, hypertension, pulmonary embolism on anticoagulation,chronic respiratory failure on 6 L oxygen at home, hysterectomy, hypothyroidism, polycythemia, fibromyalgia, bipolar disorder. Recurrent/chronic right sided chest pain, pseudomonas pulmonary infection. Presents because of worsening dyspneawith cough and yellowish phlegm for 2 weeks duration associated with nausea vomiting and loose bowel movements on admission patient has fever of 100.3. She was hypoxic with saturating 88-89on FiO2 of 90%. Labs showing leukocytosis of 13.6 K. BMP, liver enzymes and troponin were unremarkable. ProBNP is 2016.chest x-ray: Diffuse interstitial opacities area EKG shows sinus tachycardia at 109. patient received several pain medications including morphine and Dilaudid, she received normal saline IV fluid and was started on Solu-Medrol 60 mg. also patient was started on Lasix 40 mg every 8 hours, we'll lower the dose to 40 mg daily MAPS were checked and patient currently on Tylenol number 4, and lyrica, patient was started on Dilaudid 1 mg, lower the dose to half milligrams. Discontinue Fioricet and Xanax 03/25/2019 yesterday evening patient was transferred to the ICU for respiratory distress needing more breathing support and BiPAP machine. Today patient is seen and examined in the ICU, she is continuously on BiPAP machine and she was sleepy she could not provide information.she is saturating 93%. Mr. Markham looks stable. Her labs from today including CBC stable findings with bilateral interstitial edema and/or infiltrates. Patient in the meantime continue with Zyvox and Zosyn, on Coumadin with Lovenox bridging, insulin Medrol 60 mg and IV Lasix drip. Echo showed ejection fraction of 55-60%. 03/26/2019 Patient the ICU, her breathing is slowly improving, this morning she is over the BiPAP and placed on high flow nasal cannula with oxygen saturation of 97%. Tra ce of vitals are stable. Patient denies chest pain. She looks lethargic but more awake compared to yesterday. Her pain is controlled. CBC and BMP are unremarkable. Sugar control. INR is 4.1, stop the Lovenox which was bridging dose. Repeat chest x-ray this morning per radiology shows stable r eticulonodular infiltrates throughout both lung diana with a small left pleural effusion area chest x-ray is reviewed by myself. Patient remains on Zyvox and Zosyn, she remains on Lasix drip at 5, she remains on steroids. 02/25/2019 Patient still dyspneic but her breathing is easier than yesterday. She came off BiPAP and she is currently on high flow oxygen via nasal cannula at 15 L/m she saturating 94-95%. FiO2 is 50%. The rest of vitals are stable. INR better today at 3.0. Potassium 3.3, creatinine 0.5, sugar control. Magnesium 2.5. Chest x-ray showing improvement. Patient remains on Solu-Medrol 60 mg, Lasix drip at 5 and Zosyn with Zyvox. Pulmonic team R following the case closely. review of system: HEENT: No recent visual problems or hearing problems. Denied any sore throat. CARDIOVASCULAR: No orthopnea, PND, no palpitations, no syncope. GASTROINTESTINAL: No diarrhea, no nausea, no vomiting, no abdominal pain. Normoactive bowel sounds. NEUROLOGICAL: No headaches, no weakness, no numbness. HEMATOLOGICAL: Denies any bleeding or petechiae. GENITOURINARY: Denies any burning micturition, frequency, or urgency. MUSCULOSKELETAL/RHEUMATOLOGICAL: Denies any joint pain, swelling, or any muscle pain. ENDOCRINE: Denies any polyuria or polydipsia Active Medications Generic Name Dose Route Start Last Admin Trade Name Freq PRN Reason Stop Dose Admin Acetaminophen/Codeine Phosphate 1 each 03/24/19 12:19 03/27/19 09:58 Tylenol #3 PO 1 each Q6H PRN Administration MODERATE Pain Albuterol/Ipratropium 3 ml 03/24/19 16:00 03/27/19 11:01 Duoneb 0.5 Mg-3 Mg/3 Ml Soln INHALATION 3 ml RT-QID AGNIESZKA Administration Albuterol/Ipratropium 3 ml 03/24/19 12:59 03/26/19 03:27 Duoneb 0.5 Mg-3 Mg/3 Ml Soln INHALATION 3 ml RT-Q2H PRN Administration Shortness Of Breath Or Wheezing Baclofen 20 mg 03/23/19 22:00 03/27/19 08:53 Lioresal PO 20 mg TID AGNIESZKA Administration Budesonide 1 mg 03/24/19 20:00 03/27/19 07:20 Pulmicort INHALATION 1 mg RT-BID [facility] Administration Diphenoxylate HCl/Atropine 1 each 03/23/19 17:33 Lomotil PO QID PRN Loose Stool Ergocalciferol 50,000 unit 03/27/19 09:00 03/27/19 08:53 Vitamin D2 PO 50,000 unit TH [facility] Administration Ferrous Sulfate 325 mg 03/25/19 09:00 03/27/19 08:52 Feosol PO 325 mg DAILY [facility] Administration Fluoxetine HCl 20 mg 03/25/19 09:00 03/27/19 08:53 Prozac PO 20 mg DAILY [facility] Administration Formoterol Fumarate 20 mcg 03/24/19 20:00 03/27/19 07:19 Perforomist INHALATION 20 mcg RT-BID [facility] Administration Hydromorphone HCl 0.5 mg 03/24/19 12:23 03/27/19 07:15 Dilaudid IVP 0.5 mg Q4HR PRN Administration SEVERE Pain Piperacillin Sod/Tazobactam 100 mls @ 25 mls/hr 03/24/19 10:15 03/27/19 08:52 Sod 3.375 gm/ Sodium Chloride IVPB 25 mls/hr Q8HR [facility] Administration Linezolid 600 mg/ IV Solution 300 mls @ 150 mls/hr 03/24/19 13:15 03/27/19 08:52 IVPB 150 mls/hr Q12HR [facility] Administration Protocol Furosemide 100 mg/ Sodium 100 mls @ 5 mls/hr 03/24/19 15:15 03/26/19 21:16 Chloride IV 10 mg/hr .Q20H [facility] 10 mls/hr Administration 5 MG/HR Insulin Aspart 0 unit 03/24/19 07:30 03/27/19 07:15 Novolog SQ 6 unit ACHS [facility] Administration Protocol Lamotrigine 200 mg 03/25/19 09:00 03/27/19 08:54 Lamictal PO 200 mg DAILY [facility] Administration Lidocaine HCl 1 applic 03/24/19 12:19 Lmx 4 TOPICAL DAILY PRN Pain Lorazepam 1 mg 03/23/19 15:58 03/25/19 16:40 Ativan IV 1 mg Q4HR PRN Administration Anxiety Methylprednisolone Sodium Succinate 60 mg 03/23/19 19:00 03/27/19 06:33 Solu-Medrol IV 60 mg Q6HR [facility]IES[facility]KA Administration Metoprolol Tartrate 50 mg 03/23/19 21:00 03/27/19 08:52 Lopressor PO 50 mg BID AGNIESZKA Administration Mirtazapine 45 mg 03/23/19 21:00 03/26/19 21:17 Remeron PO 45 mg HS AGNIESZKA Administration Miscellaneous Information 1 each 03/23/19 17:35 Coumadin Per Pharmacy MISCELLANE DIRECTED PRN Per Protocol Miscellaneous Information 1 each 03/25/19 06:12 Potassium Per Protocol MISCELLANE DAILY PRN Per Protocol Protocol Non-Formulary Medication 50 mg 03/23/19 21:00 03/27/19 08:55 Diclofenac Sodium [Diclofenac Sodium] PO Not Given BID [facility] Nystatin 1 applic 03/24/19 21:00 03/27/19 08:54 Mycostatin Powder TOPICAL 1 applic BID [facility] Administration Ondansetron HCl 4 mg 03/24/19 10:14 03/25/19 16:31 Zofran IVP 4 mg Q6HR PRN Administration Nausea And Vomiting Pregabalin 150 mg 03/23/19 21:00 03/27/19 08:53 Lyrica PO 150 mg BID AGNIESZKA Administration Objective - Vital Signs Vital signs: Vital Signs Temp 97.9 F 03/27/19 08:00 Pulse 69 03/27/19 09:00 Resp 19 03/27/19 09:00 BP 127/81 03/27/19 09:00 Pulse Ox 95 03/27/19 09:15 Intake & Output 03/26/19 03/27/19 03/27/19 18:59 06:59 18:59 Intake Total 780 570 375 Output Total 1260 1230 375 Balance -480 -660 0 Weight 102.1 kg Intake: IV 680 570 225 .9 220 160 60 Furosemide 100 mg In 60 60 15 Sodium Chloride 0.9% 90 ml @ 5 MG/HR 5 mls/hr IV .Q20H [facility] Rx#:[id number] Linezolid 600 mg In 300 150 100 Dextrose/Water 1 300ml. bag @ 150 mls/hr IVPB Q12HR [facility] Rx#:[id number] Piperacillin-Tazobactam 3 100 200 50 .375 gm In Sodium Chloride 0.9% 100 ml @ 25 mls/hr IVPB Q8HR [facility] Rx# :[id number] Intake, IV Titration 100 100 Amount Furosemide 100 mg In 100 Sodium Chloride 0.9% 90 ml @ 5 MG/HR 5 mls/hr IV .Q20H [facility] Rx#:[id number] Potassium Chloride 10 meq 100 In Water For Injection 1 100ml.bag @ 100 mls/hr IV Q1HR [facility] Rx#:[id number] Oral 50 Output: Urine 1260 1230 375 Other: Voiding Method Indwelling Catheter Indwelling Catheter Indwelling Catheter - Exam -GENERAL: The patient is on BiPAP machine HEENT: Pupils are round and equally reacting to light. EOMI. No scleral icterus. No conjunctival pallor. Normocephalic, atraumatic. No pharyngeal erythema. No thyromegaly. CARDIOVASCULAR: S1 and S2 present. No murmurs, rubs, or gallops. -PULMONARY: Chest is clear to auscultation,bilateral wheezing and crepitation with decreased air entry on both side ABDOMEN: Soft, nontender, nondistended, normoactive bowel sounds. No palpable organomegaly. MUSCULOSKELETAL: No joint swelling or deformity. EXTREMITIES: No cyanosis, clubbing, or pedal edema. NEUROLOGICAL: Gross neurological examination did not reveal any focal deficits. SKIN: No rashes. No petechiae - Labs CBC & Chem 7: 03/27/19 05:05 03/27/19 05:05 Labs: Abnormal Lab Results - Last 24 Hours (Table) 03/26/19 03/26/19 03/26/19 Range/Units 11:49 16:49 20:58 PT (9.0-12.0) sec INR (<1.2) Potassium (3.5-5.1) mmol/L Carbon Dioxide (22-30) mmol/L BUN (7-17) mg/dL Glucose (74-99) mg/dL POC Glucose (mg/dL) 138 H 123 H 150 H (75-99) mg/dL Calcium (8.4-10.2) mg/dL Magnesium (1.6-2.3) mg/dL 03/27/19 03/27/19 03/27/19 Range/Units 05:05 05:05 07:05 PT 28.5 H (9.0-12.0) sec INR 3.0 H (<1.2) Potassium 3.3 L (3.5-5.1) mmol/L Carbon Dioxide 36 H (22-30) mmol/L BUN 27 H (7-17) mg/dL Glucose 157 H (74-99) mg/dL POC Glucose (mg/dL) 204 H (75-99) mg/dL Calcium 8.2 L (8.4-10.2) mg/dL Magnesium 2.5 H (1.6-2.3) mg/dL Microbiology - Last 24 Hours (Table) 03/25/19 16:15 Gram Stain - Preliminary Sputum Sputum Culture - Preliminary Assessment and Plan Assessment: diffuse interstitial pneumonia systemic inflammatory response with tachycardia, tachypnea and fever sepsis secondary to above Acute on a chronic hypoxic respiratory failure, at home she was on 6 L oxygen a nd she needs more on admission generalized weakness and de-conditioning chronic Right-sided pleuritic chest pain adrenal insufficiency on steroid taper History of PE on anticoagulation History of pseudomonas infection in her pulmonary passages COPD History of congestive heart failure Hyperlipidemia History of coronary artery disease Hypertension History of hysterectomy Hypothyroidism History of fibromyalgia and bipolar disorder Plan: this is a pleasant 48 years old female who presents with pneumonia and respiratory failure. Continue with Zosyn and Zyvox. Follow-up sputum culture. Pain management. Oxygen therapy. continue with warfarin and Lovenox bridging, continue with Lasix IV and some limited to Labs and medication were reviewed.. Continue same treatment. Continue with symptomatic treatment. Resume home medication. Monitor lytes and vitals. DVT and GI prophylaxis. Further recommendations of the clinical course of the patient DVT prophylaxis: on warfarin and Lovenox bridging GI Prophylaxis: Pepcid Prognosis is guarded
--- NOTE | 2019-03-27 11:21 | P.PN ---
Subjective Progress Note Date: 03/27/19 Principal diagnosis: acute hypoxic respiratory failure, multifactorial. 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 She is familiar to our service from previous admissions for complications related to recurrent pulmonary infections. patient presented on 03/23/2019 with complaints of severe shortness of breath, she had been sick for a week, and then started a week ago with nausea and vomiting, patient went to see her PCP on or Sunday, and she was very short of breath, she was told that there is very poor air entry and bilateral bases, and patient was advised to come to the hospital. Patient was febrile, diaphoretic, he states she has been bringing up colored phlegm, pos sibly hemoptysis. Has been complaining of chest tightness.she was seen in the ER on 03/19/2019 for nausea, vomiting and diarrhea. She also had some low-grade fevers, stool sample for C. diff was negative. She was given IV hydration, antiemetics, and she was discharged home. she returned for evaluation a 03/23/2019 severe shortness of breath, she stated her pulse ox was only 54% on 6 L/m of oxygen, she normally wears 3 L, but 6 L is as high as her home concentrator will go. chest x-ray showed vessel congestion and pulmonary edema and possibility of tiny bilateral pleural effusions. she has had low-grade fevers, she required placement on Airvo which is currently at 90 L or 60% FiO2, and her pulse ox is barely 88-89%. Her breathing is tachypneic and labored, she was started on IV Lasix at 40 mg once daily, and antibiotic coverage in the form of Zithromax in addition to IV steroids, follow-up chest x-ray today still shows extensive diffuse interstitial opacities. influenza screen was negative, blood work has been reviewed, showing white blood cell, 13.6, hemoglobin of 15.2, INR was subtherapeutic at 1.0, electrolytes and renal profile were unremarkable, first troponin was 0.030, and second troponin was 0.018, proBNP was elevated at 2610. Patient was reevaluated today on 03/25/2019, remains in the intensive care unit, presently on BiPAP, IPAP of 12 and EPAP of 4, and FiO2 was 90% I cut it down to 50%. Patient remains on Lasix drip and she is in a negative balance of about 3 L. Feeling better, breathing easier, but still on BiPAP at this point.chest x- ray showed some improvement, but continues to show bilateral interstitial infiltrates. Or possibly interstitial edema.labs today were reviewed she had a relatively normal CBC. INR is 1.8 potassium is a bit low at 3.2 renal profile is normal bicarb is 37.echocardiogram showed good LV function, no significant valvular disease, right-sided ventricular pressures are normal.patient is feeling better today, breathing easier, is at bedside, and the patient is sleeping quietly but arousable and follows simple instructions. Patient was reevaluated today on 03/26/2019, remains in the intensive care unit, presently on high flow oxygen using airvo. She is on high flow and high FiO2, however I cut down the flow 2 50 L/m, and the FiO2 down to 50%. O2 saturation is about 94%. Patient is hemodynamically stable, feeling better, breathing easier, chest x-ray continues to show bilateral interstitial edema/infiltrates, but definite improvement noted compared to the last few days. Hence I plan to continue the Lasix, and I plan to continue antibiotics steroids and bronchodilators. Reevaluated today on 03/27/2019, remains in the intensive care unit, on high flow oxygen, presently on AIRVO FiO2 of 50% airflow is 50 L/m. And I'm cutting down the FiO2 to 45%. O2 saturation is 94%. Chest x-ray is showing definite improvement in her interstitial edema/infiltrates. Patient is breathing easier, continues to have some productive cough, denies any fever no chills no hemoptysis no chest pain no nausea no vomiting. No abdominal pain. Remains on Lasix drip at 5 mg per hour. Remains on Zosyn and Zyvox. And she is on Solu- Medrol. Objective - Vital Signs Vital signs: Vital Signs Temp 97.9 F 03/27/19 08:00 Pulse 83 03/27/19 11:15 Resp 19 03/27/19 09:00 BP 127/81 03/27/19 09:00 Pulse Ox 93 L 03/27/19 11:03 Intake & Output 03/26/19 03/27/19 03/27/19 18:59 06:59 18:59 Intake Total 780 570 375 Output Total 1260 1230 375 Balance -480 -660 0 Weight 102.1 kg Intake: IV 680 570 225 .9 220 160 60 Furosemide 100 mg In 60 60 15 Sodium Chloride 0.9% 90 ml @ 5 MG/HR 5 mls/hr IV .Q20H [facility] Rx#:[id number] Linezolid 600 mg In 300 150 100 Dextrose/Water 1 300ml. bag @ 150 mls/hr IVPB Q12HR [facility] Rx#:[id number] Piperacillin-Tazobactam 3 100 200 50 .375 gm In Sodium Chloride 0.9% 100 ml @ 25 mls/hr IVPB Q8HR [facility] Rx# :[id number] Intake, IV Titration 100 100 Amount Furosemide 100 mg In 100 Sodium Chloride 0.9% 90 ml @ 5 MG/HR 5 mls/hr IV .Q20H [facility] Rx#:[id number] Potassium Chloride 10 meq 100 In Water For Injection 1 100ml.bag @ 100 mls/hr IV Q1HR [facility]IES[facility] Rx#:[id number] Oral 50 Output: Urine 1260 1230 375 Other: Voiding Method Indwelling Catheter Indwelling Catheter Indwelling Catheter - Exam GENERAL EXAM: revealed 48-year-old female, obese, on airvo, 50%, and 50 L/m. HEAD: Normocephalic/atraumatic. EENT: PERRLA, EOMI, neck is, moist mucous membranes, no neck masses, no JVD, no stridor. CHEST: No chest wall deformity. Symmetrical expansion. LUNGS: Equal air entry with decreased air entry at the bases, wheezing on forced expiratory maneuver noted. Especially on the left side. CVS: Regular rate and rhythm, normal S1 and S2, no gallops, no murmurs, no rubs ABDOMEN: Soft, nontender. No hepatosplenomegaly, normal bowel sounds, no guarding or rigidity. EXTREMITIES: No clubbing, no edema, no cyanosis, 2+ pulses and upper and lower extremities. MUSCULOSKELETAL: Muscle strength and tone normal. SPINE: No scoliosis or deformity SKIN: No rashes CENTRAL NERVOUS SYSTEM: alert oriented 3 focal neurologic deficits. PSYCHIATRIC: normal mood, blunt affect, intact mental status. - Labs CBC & Chem 7: 03/27/19 05:05 03/27/19 05:05 Labs: Abnormal Lab Results - Last 24 Hours (Table) 03/26/19 03/26/19 03/26/19 Range/Units 11:49 16:49 20:58 PT (9.0-12.0) sec INR (<1.2) Potassium (3.5-5.1) mmol/L Carbon Dioxide (22-30) mmol/L BUN (7-17) mg/dL Glucose (74-99) mg/dL POC Glucose (mg/dL) 138 H 123 H 150 H (75-99) mg/dL Calcium (8.4-10.2) mg/dL Magnesium (1.6-2.3) mg/dL 03/27/19 03/27/19 03/27/19 Range/Units 05:05 05:05 07:05 PT 28.5 H (9.0-12.0) sec INR 3.0 H (<1.2) Potassium 3.3 L (3.5-5.1) mmol/L Carbon Dioxide 36 H (22-30) mmol/L BUN 27 H (7-17) mg/dL Glucose 157 H (74-99) mg/dL POC Glucose (mg/dL) 204 H (75-99) mg/dL Calcium 8.2 L (8.4-10.2) mg/dL Magnesium 2.5 H (1.6-2.3) mg/dL Microbiology - Last 24 Hours (Table) 03/25/19 16:15 Gram Stain - Preliminary Sputum Sputum Culture - Preliminary Assessment and Plan Assessment: . acute on chronic hypoxemic respiratory failure related to extensive interstitial infiltrates, secondary to diastolic congestive heart failure and possibility of pneumonia/underlying pneumonia is not entirely ruled out. . history of COPD, advanced, on home oxygen . History of recurrent pulmonary infections, secondary to Pseudomonas, MRSA . History of coronary artery disease History of DVT and pulmonary embolus, on chronic anticoagulation on Coumadin, and patient's INR is subtherapeutic at 1.0 on admission Previous history of myocardial infarction History of congestive heart failure . History of hypertension . Fibromyalgia History of degenerative disc disease and chronic pain syndrome History of CVA . Chronic and ongoing nicotinedependence Recommendation: Continue oxygen at high flow and titrate accordingly. Continue Lasix at 5 mg per hour. Continue antibiotics, Continue steroids, Continue bronchodilators, Intermittent use of BiPAP as needed, updated on her condition, patient is improving, but not back to baseline, hence we'll continue to monitor in the ICU. Time with Patient: Less than 30
[2019-03-27 12:11] LABS: Glucose,Whole Blood 169 mg/dL (75-99)
--- NOTE | 2019-03-27 12:48 | CDI ---
Acute on chronic diastolic heart failure Documentation Clarification Form Date: 03/27/2019 12:27:16 PM From: Laura Bradley RN CCDS Admit Date: 03/23/2019 03:31:00 PM Patient Name: Meme Jones Visit Number: [id number] Discharge Date: ATTENTION: The Clinical Documentation Specialists (CDI) and [facility] Coding Staff appreciate your assistance in clarifying documentation. Please respond to the clarification below the line at the bottom and electronically sign. The CDI & [facility] Coding staff will review the response and follow-up if needed. Please note: Queries are made part of the Legal Health Record. If you have any questions, please contact the author of this message via ITS. Dr. Ara Hernandes Diastolic Heart Failure is documented in your consult and in subsequent progress notes. History/Risk Factors: 48-year-old female presents to the ED with worsening dyspnea with right sided chest pain. Medical history of COPD; CHF; DVT; CAD; HTN 6L home oxygen Clinical Indicators: VS/Pulse OX: 144/76 109 98.8 axillary; 35 94% bipap BNP:03/23 2610; Troponin 0.024; 0.030; 0.018; Echocardiogram Results:03/24 Overall left ventricular systolic function is normal with, an EF between 55 60% Chest X Ray:03/23 The heart is mildly enlarged. There is vascular congestion and pulmonary edema. Treatment:03/23 Lopressor 50g po bid; 03/23 Lasix 40mg IV q 8hrs d/cd 03/24; 03/24 Lasix 5ml/hr ivpb Q 20hrs scheduled. In your professional opinion, can you please clarify the acuity and type of CHF if known? * Acute Diastolic Heart Failure * Acute on Chronic Diastolic Heart Failure * Unable to Determine * Other, please specify (Last Revision: July 2017) GARYD
[2019-03-27 13:12] VITALS: TEMP 97.1
[2019-03-27 16:10] VITALS: BP 130/82; PULSE 72; RESP 21
[2019-03-27] MEDS ORDERED: WARFARIN 3 MG TAB PO ONE (18:00)
== END 2019-03-27 16:12 | disposition home health service (06) | DRG 871 ==
LOC: EC 12:36 → 3SCARD 15:31 → 2SICU 03-24 13:37
PROVIDERS: ADMIT Internal Medicine; ATTEND Internal Medicine
PROC: 5A09557 Assistance with Respiratory Ventilation, Greater than 96 Consecutive Hours, Continuous Positive Airway Pressure (ICD-10-PCS; principal; 2019-03-23)
DX: A41.9 Sepsis, unspecified organism (principal); J96.21 Acute and chronic respiratory failure with hypoxia; I50.33 Acute on chronic diastolic (congestive) heart failure; J44.1 Chronic obstructive pulmonary disease with (acute) exacerbation; E27.40 Unspecified adrenocortical insufficiency; J84.9 Interstitial pulmonary disease, unspecified; J44.0 Chronic obstructive pulmonary disease with (acute) lower respiratory infection; I11.0 Hypertensive heart disease with heart failure; J84.10 Pulmonary fibrosis, unspecified; Z51.5 Encounter for palliative care; Z66 Do not resuscitate; J20.9 Acute bronchitis, unspecified; D86.0 Sarcoidosis of lung; E86.0 Dehydration; E03.9 Hypothyroidism, unspecified; E78.5 Hyperlipidemia, unspecified; D75.1 Secondary polycythemia; M79.7 Fibromyalgia; I69.398 Other sequelae of cerebral infarction; R40.2362 Coma scale, best motor response, obeys commands, at arrival to emergency department; R40.2142 Coma scale, eyes open, spontaneous, at arrival to emergency department; R40.2252 Coma scale, best verbal response, oriented, at arrival to emergency department; G62.9 Polyneuropathy, unspecified; G89.4 Chronic pain syndrome; M54.5 Low back pain; I25.10 Atherosclerotic heart disease of native coronary artery without angina pectoris; I25.2 Old myocardial infarction; F31.9 Bipolar disorder, unspecified; F41.9 Anxiety disorder, unspecified; F17.200 Nicotine dependence, unspecified, uncomplicated; Z71.6 Tobacco abuse counseling; Z99.81 Dependence on supplemental oxygen; Z79.51 Long term (current) use of inhaled steroids; Z79.01 Long term (current) use of anticoagulants; Z79.2 Long term (current) use of antibiotics; Z79.899 Other long term (current) drug therapy; Z86.718 Personal history of other venous thrombosis and embolism; Z86.711 Personal history of pulmonary embolism; Z90.710 Acquired absence of both cervix and uterus; Z87.01 Personal history of pneumonia (recurrent); Z86.14 Personal history of Methicillin resistant Staphylococcus aureus infection; Z86.61 Personal history of infections of the central nervous system; Z90.49 Acquired absence of other specified parts of digestive tract; Z86.19 Personal history of other infectious and parasitic diseases; Z98.891 History of uterine scar from previous surgery; Z98.890 Other specified postprocedural states; Z88.1 Allergy status to other antibiotic agents; Z91.041 Radiographic dye allergy status; Z88.5 Allergy status to narcotic agent; Z88.8 Allergy status to other drugs, medicaments and biological substances; Z91.048 Other nonmedicinal substance allergy status; Z82.49 Family history of ischemic heart disease and other diseases of the circulatory system; Z83.2 Family history of diseases of the blood and blood-forming organs and certain disorders involving the immune mechanism; Z82.69 Family history of other diseases of the musculoskeletal system and connective tissue
CPT/HCPCS: 36415; 71045; 80048; 80053; 82550; 83605; 83735; 83880; 84132; 84145; 84484; 85025; 85610; 85730; 87070; 87205; 87502; 93005; 93306; 94640; 94660; 96361; 96374; 96375; 99291

== ENCOUNTER 2019-03-27 15:05 | Inpatient (IN) | payer MEDICAID ==
[2019-03-27] MEDS ORDERED: ATROPINE OPHTH SOLN 1% 5ML BTL SUBLINGUAL PRN (15:18)
[2019-03-27] MEDS ORDERED: ACETAMINOPHEN SUPPOSITORY 650 MG SUPP RECTAL PRN (15:18)
[2019-03-27] MEDS ORDERED: GLYCOPYRROLATE 0.2 MG/ML 2 ML VIAL IVP PRN (15:18)
[2019-03-27] MEDS ORDERED: ONDANSETRON 4 MG/2 ML VIAL IVP PRN (15:18)
[2019-03-27] MEDS ORDERED: IPRATROPIUM-ALBUTEROL 3 ML NEB INHALATION PRN (15:24)
[2019-03-27] MEDS ORDERED: SCOPOLAMINE 1.5MG/72HR PATCH TRANSDERM SCH (16:00)
[2019-03-27] MEDS: MORPHINE SULFATE 2 MG/ML SYRINGE IV PRN ×6 (16:44→19:40)
[2019-03-27] MEDS: IPRATROPIUM-ALBUTEROL 3 ML NEB INHALATION SCH ×2 (16:49→20:13)
[2019-03-27] MEDS: LORazepam 2 MG/ML INJ IV PRN ×2 (17:00→21:56)
[2019-03-27 17:28] LABS: Glucose,Whole Blood 111 mg/dL (75-99)
[2019-03-27] MEDS: methylPREDNISolone SOD SUCCI 125 MG/2 ML VIAL IV SCH (19:09)
[2019-03-27] MEDS: BUDESONIDE 1 MG/2 ML NEBU INHALATION SCH (20:13)
[2019-03-27] MEDS: MORPHINE SULFATE (100 MG/2 ML) 100 MG in SODIUM CHLORIDE 0.9% 100 ML IV SCH (20:30)
[2019-03-27] MEDS: PREGABALIN 75 MG CAP PO SCH (21:40)
[2019-03-28] MEDS: LORazepam 2 MG/ML INJ IV PRN ×3 (00:35→13:11)
[2019-03-28] MEDS: methylPREDNISolone SOD SUCCI 125 MG/2 ML VIAL IV SCH ×3 (01:12→12:36)
[2019-03-28] MEDS: IPRATROPIUM-ALBUTEROL 3 ML NEB INHALATION SCH ×3 (08:24→15:53)
[2019-03-28] MEDS: BUDESONIDE 1 MG/2 ML NEBU INHALATION SCH (08:25)
[2019-03-28] MEDS ORDERED: lamoTRIgine 100 MG TAB PO SCH (09:00)
[2019-03-28] MEDS ORDERED: FLUoxetine HCL 20 MG CAP PO SCH (09:00)
[2019-03-28] MEDS: PREGABALIN 75 MG CAP PO SCH (09:17)
--- NOTE | 2019-03-28 10:12 | P.HPIM ---
History of Present Illness This is a combined H and P and discharge summary this is a pleasant 48 years old female with past medical history of COPD, congestive heart failure on Bumex at home, DVT, hyperlipidemia, coronary artery disease, hypertension, pulmonary embolism on anticoagulation,chronic respiratory failure on 6 L oxygen at home, hysterectomy, hypothyroidism, polycythemia, fibromyalgia, bipolar disorder. Recurrent/chronic right sided chest pain, pseudomonas pulmonary infection. Presents because of worsening dyspnea with cough and yellowish phlegm for 2 weeks duration associated with nausea vomiting and loose bowel movements. Patient was febrile at 100.3 on admission. She was hypoxic, with saturating 88-89on FiO2 of 90%. Labs showing leukocytosis of 13.6 K. BMP, liver enzymes and troponin were unremarkable. ProBNP is 2016.chest x- ray: Diffuse interstitial opacities area EKG shows sinus tachycardia at 109. She was transferred to the ICU and started on a breathing support with BiPAP machine. She's been treated with several medication Lexapro Zyvox, Zosyn, Coumadin with Lovenox bridging for subtherapeutic INR, Solu-Medrol, and Lasix. Patient showed some interval movement slowly over 2 days she couldn't come out of the BiPAP machine however she needed high flow oxygen at 50 mL per hour via nasal cannula which she could not come off it, patient was significantly dyspneic, she wasn't respiratory distress and a due to her acute and chronic pain. Due to all the above and chronic complex medical problems associated with multiple hospital admissions patient met palliative care team and she accepted to hospice. Other medication was stopped and patient was started on morphine drip. This morning she is awake and lying comfortable in bed. Morphine drip is running at 7. She is on oxygen 6 L via Nasal cannula. Her chest pain and other pains are controlled. No other symptoms. Patient confirms to me she is DO NOT RESUSCITATE. at bedside. Patient will be discharged home with hospice. Hospice team are following the patient and as per; to deliver. For the patient. CONSTITUTIONAL: No fever, no malaise, no fatigue. HEENT: No recent visual problems or hearing problems. Denied any sore throat. CARDIOVASCULAR: No orthopnea, PND, no palpitations, no syncope. PULMONARY: No shortness of breath, no cough, no hemoptysis. GASTROINTESTINAL: No diarrhea, no nausea, no vomiting, no abdominal pain. Normoactive bowel sounds. NEUROLOGICAL: No headaches, no weakness, no numbness. HEMATOLOGICAL: Denies any bleeding or petechiae. GENITOURINARY: Denies any burning micturition, frequency, or urgency. MUSCULOSKELETAL/RHEUMATOLOGICAL: Denies any joint pain, swelling, or any muscle pain. ENDOCRINE: Denies any polyuria or polydipsia. GENERAL: The patient is alert and oriented x3, not in any acute distress. Well developed, well nourished. HEENT: Pupils are round and equally reacting to light. EOMI. No scleral icterus. No conjunctival pallor. Normocephalic, atraumatic. No pharyngeal erythema. No thyromegaly. CARDIOVASCULAR: S1 and S2 present. No murmurs, rubs, or gallops. -PULMONARY: Patient is less tachypneic, she has bilateral scattered wheezing and crepitation. With decreased breath sounds bilaterally ABDOMEN: Soft, nontender, nondistended, normoactive bowel sounds. No palpable organomegaly. MUSCULOSKELETAL: No joint swelling or deformity. EXTREMITIES: No cyanosis, clubbing, or pedal edema. NEUROLOGICAL: Gross neurological examination did not reveal any focal deficits. SKIN: No rashes. No petechiae Time spent more than 35 minutes Past Medical History Past Medical History: Blood Disorder, Coronary Artery Disease (CAD), Heart Failure, COPD, CVA/TIA, Deep Vein Thrombosis (DVT), Fibromyalgia, Hyperlipidemia, Hypertension, Myocardial Infarction (DC), Pneumonia, Pulmonary Embolus (PE), Thyroid Disorder Additional Past Medical History / Comment(s): Sarcoidosis,polycythemia, bilateral PE's, bilateral DVTs, degenerative disk disorder, history of a DC and ventilator dependent respiratory failure with MRSA pneumonia, Viral meningitis in October 2014 and July 2018. Pulmonary fibrosis, home 0xygen at 3l n/c, recent pneumonia, stroke Aug 15 2018 affecting legs and right arm, neuropathy, Last Myocardial Infarction Date:: February 15, 2013 History of Any Multi-Drug Resistant Organisms: MRSA Date of last positivie culture/infection: 11/09/172018 MDRO Source:: PLEURAL FLUID - sputum Past Surgical History: Section, Cholecystectomy, Heart Catheterization, Hernia Repair, Orthopedic Surgery Additional Past Surgical History / Comment(s): Lt ankle surgery, several bronchosopies, Past Anesthesia/Blood Transfusion Reactions: Previous Problems w/ Anesthesia Additional Past Anesthesia/Blood Transfusion Reaction / Comment(s): previously charted -pt stated that last April she coded possbily due to anesthetic-during bronchoscopy procedure with Dr Hicks Smoking Status: Current every day smoker - Past Family History Father Family Medical History: Blood Disorder, Deep Vein Thrombosis (DVT), Myocardial Infarction (DC), Pulmonary Embolus Additional Family Medical History / Comment(s): polycythemia Mother Family Medical History: Deep Vein Thrombosis (DVT) Additional Family Medical History / Comment(s): DDD Sister(s) Family Medical History: No Reported History Brother(s) Family Medical History: No Reported History Son(s) Family Medical History: No Reported History Daughter(s) Family Medical History: No Reported History Medications and Allergies Home Medications Medication Instructions Recorded Confirmed Type Metoprolol Tartrate [Lopressor] 50 mg PO BID #60 tab 08/20/15 03/27/19 Rx lamoTRIgine [LaMICtal] 200 mg PO DAILY 03/22/16 03/27/19 History Bumetanide 2 mg PO HS 10/18/16 03/27/19 History Nystatin 100,000 Unit/gm Powd 1 applic TOPICAL BID 11/04/17 03/27/19 History [Mycostatin Powder] Multivitamins, Thera [Multivitamin 1 tab PO DAILY 08/25/18 03/27/19 History (formulary)] FLUoxetine HCL [PROzac] 20 mg PO DAILY 08/26/18 03/27/19 History Butalb/Acetaminophen/Caffeine 1 cap PO Q4H PRN 09/08/18 03/27/19 History [Fioricet 50-300-40 mg Capsule] Ergocalciferol [Vitamin D2 50,000 unit PO TH 09/08/18 03/27/19 History (DRISDOL)] Mirtazapine [Remeron] 45 mg PO HS 09/08/18 03/27/19 History Pregabalin [Lyrica] 150 mg PO BID 09/08/18 03/27/19 History Acetaminophen-Codeine 300-30mg 1 tab PO Q6H PRN 12/01/18 03/27/19 History [Tylenol w/codeine #3] Ferrous Sulfate [Iron (65 MG 325 mg PO DAILY 12/01/18 03/27/19 History Elemental)] Warfarin [Coumadin] 2 mg PO W/SUPPER 12/01/18 03/27/19 History Warfarin [Coumadin] 10 mg PO W/SUPPER 12/01/18 03/27/19 History Ipratropium-Albuterol Nebulize 3 ml INHALATION RT-QID #120 12/16/18 03/27/19 Rx [Duoneb 0.5 mg-3 mg/3 ml Soln] ampul.neb Levofloxacin [Levaquin] 500 mg PO DAILY #5 tab 12/16/18 03/27/19 Rx Budesonide/Formoterol Fumarate 1 puff INHALATION RT-BID 12/17/18 03/27/19 History [Symbicort 160-4.5 Mcg Inhaler] Acetaminophen with Codeine 1 tab PO Q6H PRN 03/23/19 03/27/19 History [Tylenol with Codeine #4 Tablet] Baclofen [Lioresal] 20 mg PO TID 03/23/19 03/27/19 History Bumetanide 4 mg PO DAILY 03/23/19 03/27/19 History Diclofenac Sodium 50 mg PO BID 03/23/19 03/27/19 History Diphenox-Atrop 2.5-0.025 mg 1 tab PO QID PRN 03/23/19 03/27/19 History [Lomotil] methylPREDNISolone Dose Pack See Taper PO DAILY 03/23/19 03/27/19 History [Medrol Dose Pack] ALPRAZolam [Xanax] 0.25 mg PO DAILY PRN 03/24/19 03/27/19 History Lidocaine 4% Cream [Lmx 4] 1 applic TOPICAL DAILY PRN 03/24/19 03/27/19 History Potassium Chloride ER [K-Dur 10] 40 meq PO BID 03/24/19 03/27/19 History Allergies Allergy/AdvReac Type Severity Reaction Status Date / Time cefepime [From Maxipime] Allergy Severe Rash/Hives Verified 03/27/19 16:54 Iodinated Contrast Media Allergy Severe Rash/Hives Verified 03/27/19 16:54 ketorolac tromethamine Allergy Severe Anaphylaxis Verified 03/27/19 16:54 [From Toradol] iodine Allergy Intermediate Itching/severe Verified 03/27/19 16:54 hives adhesive Allergy Rash/Hives Verified 03/27/19 16:54 rivaroxaban [From Xarelto] Allergy Rash/Hives Verified 03/27/19 16:54 sumatriptan [From Imitrex] Allergy Anaphylaxis Verified 03/27/19 16:54 sumatriptan succinate Allergy Anaphylaxis Verified 03/27/19 16:54 [From Imitrex] tramadol Allergy Anaphylaxis Verified 03/27/19 16:54 vancomycin AdvReac Itching Verified 03/27/19 16:54 Rich wipes Allergy Severe Rash/Hives Uncoded 12/17/18 14:03 Physical Exam Vitals: Vital Signs Pulse Pulse Resp Pulse Ox 03/28/19 08:41 72 03/28/19 08:25 78 03/28/19 03:39 70 12 81 L 03/28/19 03:36 75 16 80 L 03/28/19 03:15 60 14 89 L 03/28/19 02:00 62 15 90 L 03/28/19 01:30 71 14 94 L 03/28/19 01:00 67 15 91 L 03/28/19 00:00 74 15 92 L 03/27/19 23:45 77 16 90 L 03/27/19 20:31 61 03/27/19 20:14 61 95 Intake and Output 03/27/19 03/28/19 03/28/19 22:59 06:59 14:59 Intake Total 2.329 40.375 134.405 Balance 2.329 40.375 134.405 Intake: Intake, IV Titration 2.329 40.375 16.405 Amount Morphine Sulfate (100 mg/ 2.329 40.375 16.405 2 ml) 100 mg In Sodium Chloride 0.9% 100 ml @ 1 MG/HR 1.02 mls/hr IV . Q24H [facility] Rx#:[id number] Oral 118 Other: # Voids 2 # Bowel Movements 1 Weight 102.1 kg Results Labs: Abnormal Lab Results - Last 24 Hours (Table) 03/27/19 Range/Units 17:16 POC Glucose (mg/dL) 111 H (75-99) mg/dL
[2019-03-28] MEDS: MORPHINE SULFATE (100 MG/2 ML) 100 MG in SODIUM CHLORIDE 0.9% 100 ML IV SCH (12:55)
[2019-03-28 13:46] VITALS: BP 131/82; RESP 18; TEMP 97.7
[2019-03-28] MEDS ORDERED: MORPHINE CONC SOLN 10mg/0.5mL ORAL SYRG SL PRN (15:56)
[2019-03-28] MEDS ORDERED: LORazepam 1 MG TAB PO PRN (16:05)
[2019-03-28] MEDS ORDERED: ONDANSETRON 4 MG TAB PO PRN (16:06)
[2019-03-28 16:09] VITALS: PULSE 82
[2019-03-28] MEDS ORDERED: HYOSCYAMINE SULFATE 0.125 MG TAB PO PRN (16:09)
[2019-03-28] MEDS ORDERED: BISACODYL 10 MG SUPP RECTAL PRN (16:11)
== END 2019-03-28 16:59 | disposition hospice, home (50) | DRG 951 ==
LOC: 2SICU 16:20 → 6NMEDSUR 03-28 10:39
PROVIDERS: ADMIT Internal Medicine; ATTEND Internal Medicine
DX: Z51.5 Encounter for palliative care (principal); J96.11 Chronic respiratory failure with hypoxia; I11.0 Hypertensive heart disease with heart failure; I50.9 Heart failure, unspecified; J84.10 Pulmonary fibrosis, unspecified; Z66 Do not resuscitate; D86.9 Sarcoidosis, unspecified; E03.9 Hypothyroidism, unspecified; E78.5 Hyperlipidemia, unspecified; F17.200 Nicotine dependence, unspecified, uncomplicated; F31.9 Bipolar disorder, unspecified; G89.29 Other chronic pain; I25.10 Atherosclerotic heart disease of native coronary artery without angina pectoris; I25.2 Old myocardial infarction; J44.9 Chronic obstructive pulmonary disease, unspecified; M79.7 Fibromyalgia; D75.1 Secondary polycythemia; G62.9 Polyneuropathy, unspecified; R11.2 Nausea with vomiting, unspecified; Z79.01 Long term (current) use of anticoagulants; Z79.51 Long term (current) use of inhaled steroids; Z79.899 Other long term (current) drug therapy; Z86.73 Personal history of transient ischemic attack (TIA), and cerebral infarction without residual deficits; Z87.01 Personal history of pneumonia (recurrent); Z90.710 Acquired absence of both cervix and uterus; Z99.81 Dependence on supplemental oxygen; Z86.711 Personal history of pulmonary embolism; Z88.5 Allergy status to narcotic agent; Z86.718 Personal history of other venous thrombosis and embolism; Z86.14 Personal history of Methicillin resistant Staphylococcus aureus infection; Z88.1 Allergy status to other antibiotic agents; Z91.041 Radiographic dye allergy status; Z82.61 Family history of arthritis; Z82.49 Family history of ischemic heart disease and other diseases of the circulatory system; Z90.49 Acquired absence of other specified parts of digestive tract
CPT/HCPCS: 94640